=== PATIENT | female | born 1960 | race Caucasian/White ===

== ENCOUNTER 2020-07-03 20:40 | Emergency (ER) | payer MEDICARE, MEDICAID, SELFPAY ==
[2020-07-03 21:03] VITALS: BP 149/70; BP 172/67; PULSE 69; PULSE 80; RESP 19; TEMP 36.1; O2SAT 100; O2SAT 97; BMI 64.5
[2020-07-03 21:21] VITALS: BP 172/67; PULSE 69; RESP 17; TEMP 36.1; O2SAT 100
--- NOTE | 2020-07-03 23:21 | CT_ITS ---
EXAMINATION: CT ABDOMEN AND PELVIS WITHOUT CONTRAST CLINICAL INFORMATION: Right-sided pain. History of kidney stones. COMPARISON: CT scan abdomen pelvis 12/25/2019 TECHNIQUE: Multidetector volumetric imaging was performed from the superior aspect of the liver through the pubic symphysis. Sagittal and coronal reformatted images were obtained on the technologist's workstation. This CT examination was performed using dose optimization techniques as appropriate, variously including the following: *Automated exposure control *Adjustment of mA and/or kV according to patient size (this includes techniques or standardized protocols for targeted exams where dose is matched to indication/reason for exam; i.e. extremities or head) *Use of iterative reconstruction technique DLP: 1881 mGy-cm FINDINGS: LUNG BASES: Previously noted 1 cm nodular opacity at the left diaphragm on CAT scan of 12/25/2019 well seen today. There is breathing motion limiting study. There is no pleural effusion. LIVER, GALLBLADDER, AND BILIARY TREE: The liver is normal in size, shape, and attenuation. No focal hepatic lesion or biliary ductal dilatation is present. The gallbladder is unremarkable with no evidence of radiopaque gallstones, gallbladder wall thickening, or obvious pericholecystic inflammatory changes. PANCREAS: Unremarkable. SPLEEN: Unremarkable. ADRENAL GLANDS: Redemonstration of right adrenal adenoma. Left adrenal gland is normal. KIDNEYS AND URETERS: Right kidney: There is a 3 mm stone in the mid upper pole and a less than 1 mm size stone in the lower pole the right kidney. There is no ureteral calculus and no hydronephrosis. Left kidney: There is no renal or ureteral calculus. There is no hydronephrosis. A previously noted 2.3 cm cyst midpole left kidney is not well seen on this exam. BLADDER: Unremarkable. GASTROINTESTINAL TRACT: There are scattered diverticula of the colon. There is no diverticulitis. There is no bowel wall thickening /edema. There is no bowel obstruction. There is a moderate volume of stool in the colon. The appendix is normal . The small bowel loops are unremarkable. The stomach is normal. There is no hiatal hernia. ABDOMINAL WALL: Subcutaneous edema in the right anterior abdominal wall. No ventral wall hernia. LYMPH NODES: Normal. VASCULAR: Unremarkable. PELVIC VISCERA: Unremarkable. OSSEOUS STRUCTURES: Multilevel degenerative spondylosis of the spine. CT/CT abdomen pelvis wo con IMPRESSION: 3 mm nonobstructive stone mid pole and a 1 mm stone lower pole right kidney. No stone in left kidney. No ureteral stone or hydronephrosis.
--- NOTE | 2020-07-03 23:27 | ED.ABDPAIN ---
HPI - Abdominal Pain General Chief Complaint: Abdominal Pain <Edis Little MD - Last Filed: 07/04/20 00:46> Stated Complaint: VOMITING <Edis Little MD - Last Filed: 07/04/20 00:46> Time Seen by Provider: 07/03/20 23:12 <Edis Little MD - Last Filed: 07/04/20 00:46> Source: patient <Edis Little MD - Last Filed: 07/04/20 00:46> Mode of arrival: ambulatory <Edis Little MD - Last Filed: 07/04/20 00:46> Limitations: no limitations <Edis Little MD - Last Filed: 07/04/20 00:46> History of Present Illness HPI narrative: patient morbidly obese with history of kidney stone been complaining right-sided abdominal pain with nausea and vomiting for last 5 days with poor oral intake pain is more localized on the right side <Edis Little MD - Last Filed: 07/04/20 00:46> MD elicited complaint: abdominal pain <Edis Little MD - Last Filed: 07/04/20 00:46> Pertinent past history: none <Edis Little MD - Last Filed: 07/04/20 00:46> Onset (ago): day(s) ( 5) <Edis Little MD - Last Filed: 07/04/20 00:46> Pain Consistency: constant <Edis Little MD - Last Filed: 07/04/20 00:46> Location: RUQ <Edis Little MD - Last Filed: 07/04/20 00:46> Severity: mild <Edis Little MD - Last Filed: 07/04/20 00:46> Quality: dull <Edis Little MD - Last Filed: 07/04/20 00:46> Radiation: RUQ <Edis Little MD - Last Filed: 07/04/20 00:46> Migration to: no migration <Edis Little MD - Last Filed: 07/04/20 00:46> Exacerbating factors: eating <MD Mamta Clemons Last Filed: 07/04/20 00:46> Associated symptoms: nausea and vomiting <Edis Little MD - Last Filed: 07/04/20 00:46> Related Data Home Medications: Home Medications Medication Instructions Recorded Confirmed cushion #1 06/14/20 albuterol sulfate 90 mcg/actuation INHALATION 06/28/20 06/28/20 aerosol inhaler alcohol swabs 0 pad TOPICAL BID 06/28/20 06/28/20 blood sugar diagnostic #10 ea 06/28/20 06/28/20 bumetanide 1 mg tablet mg PO 06/28/20 06/28/20 dulaglutide 1.5 mg/0.5 mL mg SUBCUT 06/28/20 06/28/20 subcutaneous pen injector fluticasone propionate 50 INTRANASAL 06/28/20 06/28/20 mcg/actuation nasal spray,suspension insulin glargine 100 unit/mL unit SUBCUT 06/28/20 06/28/20 subcutaneous solution insulin regular hum U-500 conc 500 unit SUBCUT 06/28/20 06/28/20 unit/mL subcutaneous soln insulin regular human 100 unit/mL IM 06/28/20 06/28/20 injection solution insulin syringe-needle U-100 1 mL #10 ea 06/28/20 06/28/20 30 gauge x 1/2 lancets #100 ea 06/28/20 06/28/20 lancets 28 gauge #100 ea 06/28/20 06/28/20 levothyroxine 25 mcg tablet 25 mcg PO DAILY 06/28/20 06/28/20 losartan 100 mg tablet 100 mg PO DAILY 06/28/20 06/28/20 losartan 25 mg tablet 25 mg PO DAILY 06/28/20 06/28/20 omeprazole 40 mg capsule,delayed 40 mg PO DAILY 06/28/20 06/28/20 release ropinirole 0.5 mg tablet 0.5 mg PO BEDTIME 06/28/20 06/28/20 simvastatin 20 mg tablet 20 mg PO BEDTIME 06/28/20 06/28/20 torsemide 100 mg tablet mg PO 06/28/20 06/28/20 tramadol 50 mg tablet 50 mg PO DAILY 06/28/20 06/28/20 Previous Rx's Medication Instructions Recorded amlodipine 5 mg tablet 5 mg PO DAILY #90 tab 06/10/20 dicyclomine 20 mg PO TID PRN #20 tab 07/04/20 ondansetron 4 mg PO Q6H PRN #10 tab 07/04/20 <Edis Little MD - Last Filed: 07/04/20 00:46> Allergies/Adverse Reactions: Allergies Allergy/AdvReac Type Severity Reaction Status Date / Time metformin [METFORMIN] Allergy Severe HIVES Verified 06/28/20 13:46 <Edis Little MD - Last Filed: 07/04/20 00:46> Review of Systems Review of Systems REVIEW OF SYSTEMS: Pertinent positives and negatives are stated above in the history. GEN: subjective fever+, chills +, fatigue HEENT: no nasal congestion, sore throat, ear pain NEURO: no headache, dizziness, focal weakness PULM: no cough, shortness of breath CV: no chest pain, palpitations, LE edema ABD: no diarrhea : no dysuria, urgency, frequency SKIN: no rash ROS otherwise negative x 10 <Edis Little MD - Last Filed: 07/04/20 00:46> Physical Exam Vital Signs: Vital Signs: Vital Signs Temp Pulse Resp BP Pulse Ox 07/03/20 21:21 97 F 69 17 172/67 H 100 07/03/20 21:03 97 F 69 19 172/67 H 97 Body Mass Index 64.5 <Edis Little MD - Last Filed: 07/04/20 00:46> Vital Signs: Vital Signs Temp Pulse Resp BP Pulse Ox 07/03/20 21:21 97 F 69 17 172/67 H 100 07/03/20 21:03 97 F 69 19 172/67 H 97 Body Mass Index 64.5 <Kinsey Gillette MD - Last Filed: 07/04/20 02:52> VITAL SIGNS: Reviewed. GENERAL: Well developed, morbidly obese, in no acute distress. HEAD: Normocephalic/atraumatic, EYES: PERRLA No pallor/icterus noted OROPHRYNX: Oral mucosa moist no oral lesions NECK: Supple, no adenopathy LUNGS: Normal breath sounds. No adventitious sounds or accessory muscle use CARDIOVASCULAR: Regular rate and rhythm without noted murmurs, ABDOMEN: Soft, mild-tender in right upper quadrant, non-distended normalh bowel sounds. No rigidity. No guarding. No palpable masses or hernias noted MUSCULOSKELETAL: No tenderness, deformities, EXTREMITIES: No cyanosis or edema. chronic lymphedema present SKIN: no rashes, ulcerations, jaundice, pallor, or petechiae NEUROLOGIC: Alert and oriented x 3. Strength and sensation to light touch were grossly intact <Edis Little MD - Last Filed: 07/04/20 00:46> Course Course Course Narrative: patient with acute gastroenteritis with volume loss and elevated creatinine CTA scan of the abdomen is negative for any acute pathology. Patient received IV fluids and Zofran feeling much better now taking p.o. fluids advised to follow with primary care doctor <Edis Little MD - Last Filed: 07/04/20 00:46> Reevaluation(s) Reevaluation #1: Review of all investigations reviewed and patient appears to have baby combination of gastroenteritis as well as nonobstructing kidney stones that is likely the cause of hematuria noted on urinalysis. The urinalysis does not show any evidence infection. <Kinsey Gillette MD - Last Filed: 07/04/20 02:52> Time: 02:51 <Kinsey Gillette MD - Last Filed: 07/04/20 02:52> MDM - Abdominal Pain Differential Diagnosis Differential diagnosis: Likely calculus of kidney and pancreatitis <Edis Little MD - Last Filed: 07/04/20 00:46> Differential diagnosis narrative:: gallstones <Edis Little MD - Last Filed: 07/04/20 00:46> Medical Records Attestation: I reviewed the patient's medical records. <Edis Little MD - Last Filed: 07/04/20 00:46> Lab Data Attestation: I reviewed the patient's lab results. <Edis Little MD - Last Filed: 07/04/20 00:46> Result diagrams: : 07/04/20 00:12 07/04/20 00:12 <Edis Little MD - Last Filed: 07/04/20 00:46> Labs: Lab Results 07/04/20 07/04/20 07/04/20 Range/Units 00:12 00:12 00:12 WBC 13.5 H (4.8-10.8) X10*3/uL RBC 3.97 L (4.20-5.50) X10*6/uL Hgb 11.9 L (12.0-16.0) g/dl Hct 35.7 L (37-47) % MCV 89.9 (80-98) fL MCH 30.0 (27.0-33.0) pg MCHC 33.3 (31.0-35.0) g/dl RDW 13.6 (11.0-16.0) % Plt Count 331 (160-400) X10*3/uL MPV 9.9 (9.4-12.3) fL Immature Gran % (Auto) 0.4 (0.0-0.4) % Neut % (Auto) 65.6 (45-73) % Lymph % (Auto) 23.6 (20-40) % [place] % (Auto) 7.3 (2-11) % Eos % (Auto) 2.6 (0-4) % Baso % (Auto) 0.5 (0-2) % Lymph # (Auto) 3.2 (1.2-4.9) X10*3/uL [place] # (Auto) 1.0 (0.1-1.2) X10*3/uL Eos # (Auto) 0.4 (0.0-0.4) X10*3/uL Baso # (Auto) 0.1 (0.0-0.2) X10*3/uL Abs Immat Gran (auto) 0.05 H (0.00-0.03) X10*3/uL Absolute Neuts (auto) 8.9 H (2.0-8.3) X10*3/uL Absolute Nucleated RBC 0.000 (0.0-0.012) X10*3/uL Nucleated RBC % (auto) 0.0 (0.0-0.2) /100WBC Hold Blue Top SEE NOTE Sodium 139 (135-145) mmol/L Potassium 3.4 (3.3-5.1) mmol/l Chloride 107 (96-108) mmol/L Carbon Dioxide 25 (22-29) mmol/L Anion Gap 10 L (12-20) BUN 30 H (9-16) mg/dL Creatinine 2.04 H (0.5-1.4) mg/dL Estim Creat Clear Calc 48.8 Estimated GFR 25 Random Glucose 274 H (60-115) mg/dL Lactic Acid (0.5-2.0) mmol/L Calcium 7.5 L (8.4-10.2) mg/dL Total Bilirubin 0.6 (0.0-1.0) mg/dL AST 16 (5-31) U/L ALT 13 (0-31) U/L Alkaline Phosphatase 129 H (39-117) U/L Total Protein 4.7 L (6.5-8.0) g/dL Albumin 2.1 L (3.5-5.0) g/dL Lipase 19 (8-78) U/L Urine Color Urine Appearance Urine pH (5.0-8.0) Ur Specific [place] (1.005-1.025) Urine Protein (NEG-TRACE) MG/DL Urine Glucose (UA) (NEG) MG/DL Urine Ketones (NEG) MG/DL Urine Blood (NEG) Urine Nitrite (NEG) Ur Leukocyte Esterase (NEG) Urine RBC (0) /HPF Urine WBC (0-4) /HPF Ur Squamous Epith Cells /LPF Urine Bacteria /LPF Hyaline Casts /LPF Granular Casts /LPF 07/04/20 07/04/20 Range/Units 00:12 01:01 WBC (4.8-10.8) X10*3/uL RBC (4.20-5.50) X10*6/uL Hgb (12.0-16.0) g/dl Hct (37-47) % MCV (80-98) fL MCH (27.0-33.0) pg MCHC (31.0-35.0) g/dl RDW (11.0-16.0) % Plt Count (160-400) X10*3/uL MPV (9.4-12.3) fL Immature Gran % (Auto) (0.0-0.4) % Neut % (Auto) (45-73) % Lymph % (Auto) (20-40) % [place] % (Auto) (2-11) % Eos % (Auto) (0-4) % Baso % (Auto) (0-2) % Lymph # (Auto) (1.2-4.9) X10*3/uL [place] # (Auto) (0.1-1.2) X10*3/uL Eos # (Auto) (0.0-0.4) X10*3/uL Baso # (Auto) (0.0-0.2) X10*3/uL Abs Immat Gran (auto) (0.00-0.03) X10*3/uL Absolute Neuts (auto) (2.0-8.3) X10*3/uL Absolute Nucleated RBC (0.0-0.012) X10*3/uL Nucleated RBC % (auto) (0.0-0.2) /100WBC Hold Blue Top Sodium (135-145) mmol/L Potassium (3.3-5.1) mmol/l Chloride (96-108) mmol/L Carbon Dioxide (22-29) mmol/L Anion Gap (12-20) BUN (9-16) mg/dL Creatinine (0.5-1.4) mg/dL Estim Creat Clear Calc Estimated GFR Random Glucose (60-115) mg/dL Lactic Acid 0.7 (0.5-2.0) mmol/L Calcium (8.4-10.2) mg/dL Total Bilirubin (0.0-1.0) mg/dL AST (5-31) U/L ALT (0-31) U/L Alkaline Phosphatase (39-117) U/L Total Protein (6.5-8.0) g/dL Albumin (3.5-5.0) g/dL Lipase (8-78) U/L Urine Color YELLOW Urine Appearance HAZY Urine pH 6.5 (5.0-8.0) Ur Specific [place] 1.020 (1.005-1.025) Urine Protein 3+ H (NEG-TRACE) MG/DL Urine Glucose (UA) >=1000 H (NEG) MG/DL Urine Ketones NEG (NEG) MG/DL Urine Blood 2+ H (NEG) Urine Nitrite NEG (NEG) Ur Leukocyte Esterase NEG (NEG) Urine RBC 15-29 H (0) /HPF Urine WBC 15-29 H (0-4) /HPF Ur Squamous Epith Cells 1+ /LPF Urine Bacteria 2+ /LPF Hyaline Casts 1-4 /LPF Granular Casts 1-4 /LPF <Edis Little MD - Last Filed: 07/04/20 00:46> Lab Results 07/04/20 07/04/20 07/04/20 Range/Units 00:12 00:12 00:12 WBC 13.5 H (4.8-10.8) X10*3/uL RBC 3.97 L (4.20-5.50) X10*6/uL Hgb 11.9 L (12.0-16.0) g/dl Hct 35.7 L (37-47) % MCV 89.9 (80-98) fL MCH 30.0 (27.0-33.0) pg MCHC 33.3 (31.0-35.0) g/dl RDW 13.6 (11.0-16.0) % Plt Count 331 (160-400) X10*3/uL MPV 9.9 (9.4-12.3) fL Immature Gran % (Auto) 0.4 (0.0-0.4) % Neut % (Auto) 65.6 (45-73) % Lymph % (Auto) 23.6 (20-40) % [place] % (Auto) 7.3 (2-11) % Eos % (Auto) 2.6 (0-4) % Baso % (Auto) 0.5 (0-2) % Lymph # (Auto) 3.2 (1.2-4.9) X10*3/uL [place] # (Auto) 1.0 (0.1-1.2) X10*3/uL Eos # (Auto) 0.4 (0.0-0.4) X10*3/uL Baso # (Auto) 0.1 (0.0-0.2) X10*3/uL Abs Immat Gran (auto) 0.05 H (0.00-0.03) X10*3/uL Absolute Neuts (auto) 8.9 H (2.0-8.3) X10*3/uL Absolute Nucleated RBC 0.000 (0.0-0.012) X10*3/uL Nucleated RBC % (auto) 0.0 (0.0-0.2) /100WBC Hold Blue Top SEE NOTE Sodium 139 (135-145) mmol/L Potassium 3.4 (3.3-5.1) mmol/l Chloride 107 (96-108) mmol/L Carbon Dioxide 25 (22-29) mmol/L Anion Gap 10 L (12-20) BUN 30 H (9-16) mg/dL Creatinine 2.04 H (0.5-1.4) mg/dL Estim Creat Clear Calc 48.8 Estimated GFR 25 Random Glucose 274 H (60-115) mg/dL Lactic Acid (0.5-2.0) mmol/L Calcium 7.5 L (8.4-10.2) mg/dL Total Bilirubin 0.6 (0.0-1.0) mg/dL AST 16 (5-31) U/L ALT 13 (0-31) U/L Alkaline Phosphatase 129 H (39-117) U/L Total Protein 4.7 L (6.5-8.0) g/dL Albumin 2.1 L (3.5-5.0) g/dL Lipase 19 (8-78) U/L Urine Color Urine Appearance Urine pH (5.0-8.0) Ur Specific [place] (1.005-1.025) Urine Protein (NEG-TRACE) MG/DL Urine Glucose (UA) (NEG) MG/DL Urine Ketones (NEG) MG/DL Urine Blood (NEG) Urine Nitrite (NEG) Ur Leukocyte Esterase (NEG) Urine RBC (0) /HPF Urine WBC (0-4) /HPF Ur Squamous Epith Cells /LPF Urine Bacteria /LPF Hyaline Casts /LPF Granular Casts /LPF 07/04/20 07/04/20 Range/Units 00:12 01:01 WBC (4.8-10.8) X10*3/uL RBC (4.20-5.50) X10*6/uL Hgb (12.0-16.0) g/dl Hct (37-47) % MCV (80-98) fL MCH (27.0-33.0) pg MCHC (31.0-35.0) g/dl RDW (11.0-16.0) % Plt Count (160-400) X10*3/uL MPV (9.4-12.3) fL Immature Gran % (Auto) (0.0-0.4) % Neut % (Auto) (45-73) % Lymph % (Auto) (20-40) % [place] % (Auto) (2-11) % Eos % (Auto) (0-4) % Baso % (Auto) (0-2) % Lymph # (Auto) (1.2-4.9) X10*3/uL [place] # (Auto) (0.1-1.2) X10*3/uL Eos # (Auto) (0.0-0.4) X10*3/uL Baso # (Auto) (0.0-0.2) X10*3/uL Abs Immat Gran (auto) (0.00-0.03) X10*3/uL Absolute Neuts (auto) (2.0-8.3) X10*3/uL Absolute Nucleated RBC (0.0-0.012) X10*3/uL Nucleated RBC % (auto) (0.0-0.2) /100WBC Hold Blue Top Sodium (135-145) mmol/L Potassium (3.3-5.1) mmol/l Chloride (96-108) mmol/L Carbon Dioxide (22-29) mmol/L Anion Gap (12-20) BUN (9-16) mg/dL Creatinine (0.5-1.4) mg/dL Estim Creat Clear Calc Estimated GFR Random Glucose (60-115) mg/dL Lactic Acid 0.7 (0.5-2.0) mmol/L Calcium (8.4-10.2) mg/dL Total Bilirubin (0.0-1.0) mg/dL AST (5-31) U/L ALT (0-31) U/L Alkaline Phosphatase (39-117) U/L Total Protein (6.5-8.0) g/dL Albumin (3.5-5.0) g/dL Lipase (8-78) U/L Urine Color YELLOW Urine Appearance HAZY Urine pH 6.5 (5.0-8.0) Ur Specific [place] 1.020 (1.005-1.025) Urine Protein 3+ H (NEG-TRACE) MG/DL Urine Glucose (UA) >=1000 H (NEG) MG/DL Urine Ketones NEG (NEG) MG/DL Urine Blood 2+ H (NEG) Urine Nitrite NEG (NEG) Ur Leukocyte Esterase NEG (NEG) Urine RBC 15-29 H (0) /HPF Urine WBC 15-29 H (0-4) /HPF Ur Squamous Epith Cells 1+ /LPF Urine Bacteria 2+ /LPF Hyaline Casts 1-4 /LPF Granular Casts 1-4 /LPF <Kinsey Gillette MD - Last Filed: 07/04/20 02:52> Imaging Data CT scan - abdomen: Radiologist's impression: CT/CT abdomen pelvis wo con IMPRESSION: 3 mm nonobstructive stone mid pole and a 1 mm stone lower pole right kidney. No stone in left kidney. No ureteral stone or hydronephrosis. <Edis Little MD - Last Filed: 07/04/20 00:46> Discharge Plan Discharge Clinical Impression: Gastroenteritis, Acute renal insufficiency <Edis Little MD - Last Filed: 07/04/20 00:46> Patient Disposition: Home, Self-Care <Edis Little MD - Last Filed: 07/04/20 00:46> Instructions: Acute Nausea and Vomiting (ED) <Edis Little MD - Last Filed: 07/04/20 00:46> Additional Instructions: drink plenty of fluids and take the medication for nausea and follow-up with primary care doctor if not better. Follow-up with the prime PCP next week to check your kidney function <Edis Little MD - Last Filed: 07/04/20 00:46> Prescriptions: New ondansetron 4 mg tablet,disintegrating 4 mg PO Q6H PRN (Reason: nausea and vomiting) Qty: 10 RF: 0 dicyclomine 20 mg tablet 20 mg PO TID PRN (Reason: abd pain) Qty: 20 RF: 0 No Action amlodipine 5 mg tablet 5 mg PO DAILY Qty: 90 RF: 8 (DME) cushion Misc See Rx Instructions .ROUTE .MEDSUPPLY Qty: 1 RF: 0 torsemide 100 mg tablet PO RF: 0 losartan 100 mg tablet 100 mg PO DAILY RF: 0 (DME) Accu-Chek Berna Plus test strp Strip See Rx Instructions strip Not Applicable .MEDSUPPLY Qty: 10 RF: 0 losartan 25 mg tablet 25 mg PO DAILY RF: 0 Humulin R U-500 (Conc) Insulin 500 unit/mL solution subcut RF: 0 ropinirole 0.5 mg tablet 0.5 mg PO BEDTIME RF: 0 alcohol swabs Pads, Medicated 0 pad topical BID RF: 0 (DME) lancets 28 gauge misc See Rx Instructions gauge topical .MEDSUPPLY Qty: 100 RF: 0 albuterol sulfate 90 mcg/actuation HFA aerosol inhaler inhalation RF: 0 bumetanide 1 mg tablet PO RF: 0 simvastatin 20 mg tablet 20 mg PO BEDTIME RF: 0 levothyroxine 25 mcg tablet 25 mcg PO DAILY RF: 0 (DME) insulin syringe-needle U-100 1 mL 30 gauge x 1/2 syringe See Rx Instructions ml .ROUTE .MEDSUPPLY Qty: 10 RF: 0 Lantus U-100 Insulin 100 unit/mL solution subcut RF: 0 omeprazole 40 mg capsule,delayed release(DR/EC) 40 mg PO DAILY RF: 0 tramadol 50 mg tablet 50 mg PO DAILY RF: 0 (DME) lancets Misc See Rx Instructions ea topical .MEDSUPPLY Qty: 100 RF: 0 Humulin R Regular U-100 Insuln 100 unit/mL solution IM RF: 0 Trulicity 1.5 mg/0.5 mL pen injector subcut RF: 0 fluticasone propionate 50 mcg/actuation spray,suspension intranasal RF: 0 <Edis Little MD - Last Filed: 07/04/20 00:46> Referrals: Tony Dejesus MD [Physician] - 2 days ( Needs follow-up eval for worsening renal function on evaluation here in the emergency department 07/04) Terry Ochoa MD [Primary Care Provider] - 2 days ( Further evaluation regarding noted RASHEEDA.) <Edis Little MD - Last Filed: 07/04/20 00:46> [facility] Past Medical History Medical History: Medical History Diabetes mellitus <Edis Little MD - Last Filed: 07/04/20 00:46> Surgical History: Surgical History History of tubal ligation <Edis Little MD - Last Filed: 07/04/20 00:46> Family History Family History: Family History Father Diabetes Mother Diabetes Hypertension Breast cancer Family/Other Breast cancer Uterine cancer <Edis Little MD - Last Filed: 07/04/20 00:46> Social History Social History: Social History Alcohol intake: never Smoked in Last 30 Days: No Use of substances other than those prescribed or required for medical reasons: No Advance Directives: No Advance Directives Information Provided: Yes <Edis Little MD - Last Filed: 07/04/20 00:46>
--- NOTE | 2020-07-03 23:35 | PC.NURSE ---
REPORT TAKEN FROM GARCIA RN, FIRST CONTACT WITH PT. MOVED TO [facility] FOR TREATMENT. REPORTS RIGHT SIDED ABD PAIN, NAUSEA, CHILLS, AND METALLIC TASTE IN MOUTHx5 DAYS. DENIES FEVER. AWAITING TESTING. AWARE OF PLAN OF CARE.
[2020-07-03] MEDS: 0.9 % Sodium Chloride 1,000 ML 999 ML IVCONT (23:56)
[2020-07-04] MEDS: ondansetron HCL 4 MG/2 ML VIAL IVPUSH
--- NOTE | 2020-07-04 00:19 | PC.NURSE ---
PT MEDICATED PER MAR, IVF HUNG AND INFUSING WITHOUT DIFFICULTY. AWAITING FURTHER TESTING. AWARE OF PLAN OF CARE.
[2020-07-04 00:21] LABS: MANUAL DIFF FLAG NO
[2020-07-04 00:22] LABS: Basophils Absolute Auto 0.1 X10*3/uL (0.0-0.2); Basophils Percent Auto 0.5 % (0-2); Eosinophils Absolute Auto 0.4 X10*3/uL (0.0-0.4); Eosinophils Percent Auto 2.6 % (0-4); Hematocrit 35.7 % (37-47); Hemoglobin 11.9 g/dl (12.0-16.0); Imm Gran Abs Auto 0.05 X10*3/uL (0.00-0.03); Imm Gran Pct Auto 0.4 % (0.0-0.4); Lymphocytes Absolute Auto 3.2 X10*3/uL (1.2-4.9); Lymphocytes Percent Auto 23.6 % (20-40); Mean Corpuscular HGB Conc 33.3 g/dl (31.0-35.0); Mean Corpuscular Volume 89.9 fL (80-98); Mean Platelet Volume 9.9 fL (9.4-12.3); Monocytes Percent Auto 7.3 % (2-11); Neutrophils Absolute Auto 8.9 X10*3/uL (2.0-8.3); Neutrophils Percent Auto 65.6 % (45-73); Platelet Count 331 X10*3/uL (160-400); Red Blood Count 3.97 X10*6/uL (4.20-5.50); Red Cell Distribution Width 13.6 % (11.0-16.0); White Blood Count 13.5 X10*3/uL (4.8-10.8)
[2020-07-04 00:38] LABS: Lactic Acid 0.7 mmol/L (0.5-2.0)
[2020-07-04 00:44] LABS: Alanine Aminotransferase 13 U/L (0-31); Albumin Level 2.1 g/dL (3.5-5.0); Alkaline Phosphatase 129 U/L (39-117); Anion Gap 10 (12-20); Aspartate Amino Transferase 16 U/L (5-31); Bilirubin Total 0.6 mg/dL (0.0-1.0); Blood Urea Nitrogen 30 mg/dL (9-16); Calcium 7.5 mg/dL (8.4-10.2); Carbon Dioxide 25 mmol/L (22-29); Chloride 107 mmol/L (96-108); Creatinine Clr Calc Pharmacy 48.8; Estimated Glomerular Filt Rate 25; Glucose Random 274 mg/dL (60-115); Lipase 19 U/L (8-78); Potassium 3.4 mmol/l (3.3-5.1); Sodium 139 mmol/L (135-145); Total Protein 4.7 g/dL (6.5-8.0)
[2020-07-04] MEDS: Ketorolac Tromethamine 30 MG/ML VIAL IVPUSH (00:58)
[2020-07-04 01:07] LABS: Glucose Urine UA >=1000 MG/DL (NEG); Leukocyte Esterase Urine NEG (NEG); Nitrite Urine NEG (NEG); PH 6.5 (5.0-8.0); Urine Blood 2+ (NEG); Urine Ketones NEG (NEG); Urine Protein 3+ MG/DL (NEG-TRACE)
[2020-07-04 01:08] LABS: Appearance Urine HAZY; Color Urine YELLOW
[2020-07-04 01:19] LABS: Bacteria Urine 2+ /LPF; Squamous Epithelial Cell Urine 1+ /LPF; UACC CULT YES
[2020-07-04 02:00] VITALS: BP 110/50; PULSE 66; RESP 18; O2SAT 99
--- NOTE | 2020-07-04 02:55 | PC.NURSE ---
NEGATIVE WORK UP PT AWAITING AMBULANCE TRANSPORT FOR DC HOME. FEELING BETTER, IN AGREEANCE WITH PLAN OF CARE.
== END 2020-07-04 03:35 | disposition home or self-care (01) ==
PROVIDERS: Emergency Provider Internal Medicine; PCP Internal Medicine
DX: K52.9 Noninfective gastroenteritis and colitis, unspecified (principal); N28.9 Disorder of kidney and ureter, unspecified; R10.9 Unspecified abdominal pain; R11.2 Nausea with vomiting, unspecified; Z79.899 Other long term (current) drug therapy
CPT/HCPCS: 36415; 74176; 80053; 81001; 83605; 83690; 85025; 87086; 96361; 96374; 96375; 99284; J1885; J2405

== ENCOUNTER 2020-07-30 23:44 | Inpatient (IN) | payer MEDICARE, MEDICAID, SELFPAY ==
[2020-07-30 23:58] VITALS: BP 162/96; BP 164/76; PULSE 76; PULSE 86; RESP 20; O2SAT 96; O2SAT 97; BMI 69.2
[2020-07-31] VITALS (12 sets, daily range): BP systolic 112–169; BP diastolic 54–81; PULSE 64–106; RESP 11–20; TEMP 36.4–37.3; O2SAT 96–100
--- NOTE | 2020-07-31 00:35 | ED.GENADULT ---
HPI - General Adult General Chief complaint: Upper Respiratory Symptoms Stated complaint: sob Time Seen by Provider: 07/31/20 00:05 History of Present Illness HPI narrative: 60-year-old female who presents emergency department for evaluation nausea, vomiting, inability eat x2 weeks. Patient is also complaining shortness of breath. The patient was hospitalized here recently for gastritis. The patient states that she was discharged home with Zofran. She states despite taking the Zofran she is continuing to have nausea and vomiting and is not able to eat. She states that every time she eats or drinks she vomits. She also states that she has a very bad taste in her mouth and she believes that she has a tooth infection. She states that this that test is also making her nauseous and making her vomit. She is complaining abdominal pain. She points to her midepigastric and right side of her abdomen when asked to localize the pain. She states that it is a burning sensation that is worse with vomiting. States the pain is 5/10 at its worst. She states that she always feels short of breath but her shortness of breath has gotten worse over the last 24 hours. The patient states that she was COVID-19 positive in December of 2019. Patient's point of care glucose EN route to the hospital was greater than 500. Related Data Home Medications Medication Instructions Recorded Confirmed cushion #1 06/14/20 07/12/20 albuterol sulfate 90 mcg/actuation INHALATION 06/28/20 07/12/20 aerosol inhaler alcohol swabs 0 pad TOPICAL BID 06/28/20 07/12/20 blood sugar diagnostic #10 ea 06/28/20 07/12/20 bumetanide 1 mg tablet mg PO 06/28/20 07/12/20 dulaglutide 1.5 mg/0.5 mL mg SUBCUT 06/28/20 07/12/20 subcutaneous pen injector fluticasone propionate 50 INTRANASAL 06/28/20 07/12/20 mcg/actuation nasal spray,suspension insulin glargine 100 unit/mL unit SUBCUT 06/28/20 07/12/20 subcutaneous solution insulin regular hum U-500 conc 500 unit SUBCUT 06/28/20 07/12/20 unit/mL subcutaneous soln insulin regular human 100 unit/mL IM 06/28/20 07/12/20 injection solution insulin syringe-needle U-100 1 mL #10 ea 06/28/20 07/12/20 30 gauge x 1/2 lancets #100 ea 06/28/20 07/12/20 lancets 28 gauge #100 ea 06/28/20 07/12/20 levothyroxine 25 mcg tablet 25 mcg PO DAILY 06/28/20 07/12/20 losartan 100 mg tablet 100 mg PO DAILY 06/28/20 07/12/20 losartan 25 mg tablet 25 mg PO DAILY 06/28/20 07/12/20 omeprazole 40 mg capsule,delayed 40 mg PO DAILY 06/28/20 07/12/20 release ropinirole 0.5 mg tablet 0.5 mg PO BEDTIME 06/28/20 07/12/20 simvastatin 20 mg tablet 20 mg PO BEDTIME 06/28/20 07/12/20 torsemide 100 mg tablet mg PO 06/28/20 07/12/20 tramadol 50 mg tablet 50 mg PO DAILY 06/28/20 07/12/20 calcifediol 30 mcg capsule,24 30 mcg PO DAILY 07/12/20 07/12/20 hr,extended release Previous Rx's Medication Instructions Recorded amlodipine 5 mg tablet 5 mg PO DAILY #90 tab 06/10/20 dicyclomine 20 mg PO TID PRN #20 tab 07/04/20 ondansetron 4 mg PO Q6H PRN #10 tab 07/04/20 Allergies Allergy/AdvReac Type Severity Reaction Status Date / Time metformin [METFORMIN] Allergy Severe HIVES Verified 07/31/20 00:09 Review of Systems Review of Systems: Yes all other systems are reviewed and are negative Constitutional: Constitutional: Reports as per HPI Eyes: Eyes: Reports as per HPI ENT: Reports as per HPI Cardiovascular: Cardiovascular: Reports as per HPI Respiratory: Respiratory: Reports as per HPI Gastrointestinal: Gastrointestinal: Reports as per HPI Genitourinary: Genitourinary: Reports as per HPI Musculoskeletal: Musculoskeletal: Reports as per HPI Integumentary/Breasts: Skin/Breast: Reports as per HPI Neurologic: Reports as per HPI and Reports Abnormal speech present Psychiatric: Psychiatric: Reports as per HPI Allergic/Immunologic: Allergic/Immunologic: Reports as per HPI [facility] Past Medical History Medical History Diabetes mellitus Surgical History History of tubal ligation Family History Family History Father Diabetes Mother Diabetes Hypertension Breast cancer Family/Other Breast cancer Uterine cancer Social History Social History Alcohol intake: never Advance Directives: No Advance Directives Information Provided: No Physical Exam Vital Signs: Vital Signs: Last Vital Signs Pulse 76 07/30/20 23:58 Resp 20 07/30/20 23:58 BP 164/76 H 07/30/20 23:58 Pulse Ox 96 07/30/20 23:58 Body Mass Index 69.2 Const: General: cooperative, no acute distress, alert and awake Nutritional Appearance: obese Orientation/consciousness: oriented to person and oriented to place Limitations: no limitations HENMT: Head: Yes normal to inspection, Yes normocephalic and Yes atraumatic Ears: hearing grossly normal bilaterally and external ears normal General nose exam: Normal external nose present Face and sinus: Yes normal facial exam and Yes sinuses nontender Mouth: lip normal, tongue normal and oropharynx normal Teeth and gingiva: poor dentition Teeth image: 1. Dental caries 2. Dental caries Eyes: General: appearance normal, both eyes and all related structures Periorbital: periorbital findings normal Eyelids: Yes eyelids normal Conjunctivae: conjunctivae normal Sclerae: sclerae normal Corneas: corneas normal Pupils: Equal, round and reactive pupils present Direct Ophthalmoscopy: normal light reflex Neck: Neck: Yes normal visual inspection and Yes supple Lymphatic: no lymphadenopathy noted Chest: Chest palpation & inspection: normal inspection of the chest and normal palpation of entire chest wall Resp: Effort & Inspection: normal respiratory effort, abnormal respiratory pattern, no audible wheezes and no respiratory distress Auscultation: clear to auscultation bilaterally, no crackles, no rales, no rhonchi and no wheezes Cardio: Rate: regular rate Rhythm: regular rhythm Heart sounds: S1 normal heart sound present, S2 normal heart sound present and no murmurs GI: Inspection: No distended Palpation (GI): Soft to palpation, Tenderness to palpation present (GI) in the epigastrum, in the RLQ and in the RUQ, no guarding and No hepatosplenomegaly present Auscultation: normal bowel sounds : General: Yes no CVA tenderness Back/Spine/Pelvis: Back: no CVA tenderness Skin: General skin exam: no rashes or lesions noted Lesions: no lesions Rashes: no rashes Wounds: no wounds Neuro: General: oriented to person and oriented to place Cranial nerves: Yes CN's II-XII intact bilaterally and Yes Equal, round and reactive pupils present Cognition (Neuro): normal cognition Speech: Abnormal speech present Motor exam (neuro): 5/5 motor strength present throughout Extrem: General: Yes normal to inspection, Yes full ROM, Yes no pedal edema and Yes no calf tenderness Psych: Appearance: grossly normal Mental Status: mental status grossly normal Speech and movement: Clear speech present Affect: normal affect Thought process: Normal thought process present Course Course Course Narrative: 60-year-old female with a history of morbid obesity , gastritis with recent admission, diabetes mellitus who presents to the emergency 2 weeks of nausea and vomiting, worse in the last 24 hours with mid epigastric and right-sided abdominal pain. Patient also believes that she may have a dental infection and she is also complaining of shortness of breath. Physical examination revealed that the patient was afebrile with an O2 saturation 96% on room air. Patient is not tachycardic. She did have midepigastric and right-sided abdominal tenderness. My suspicion is that she has recurrence of her gastritis and may also have gastroparesis. I did order an abdominal pain workup on the patient, I do not think that she needs CT scan at this time. The patient does have significant dental caries in the left upper aspect of her mouth and she may have a dental infection. Patient's point of care glucose was greater than 500 so she was ordered to get normal saline IV x1 L and regular insulin 10 units IV. Discharge Plan Discharge Prescriptions: No Action amlodipine 5 mg tablet 5 mg PO DAILY Qty: 90 RF: 8 (DME) cushion Misc See Rx Instructions .ROUTE .MEDSUPPLY Qty: 1 RF: 0 ondansetron 4 mg tablet,disintegrating 4 mg PO Q6H PRN (Reason: nausea and vomiting) Qty: 10 RF: 0 dicyclomine 20 mg tablet 20 mg PO TID PRN (Reason: abd pain) Qty: 20 RF: 0 torsemide 100 mg tablet PO RF: 0 losartan 100 mg tablet 100 mg PO DAILY RF: 0 (DME) Accu-Chek Berna Plus test strp Strip See Rx Instructions strip Not Applicable .MEDSUPPLY Qty: 10 RF: 0 losartan 25 mg tablet 25 mg PO DAILY RF: 0 Humulin R U-500 (Conc) Insulin 500 unit/mL solution subcut RF: 0 ropinirole 0.5 mg tablet 0.5 mg PO BEDTIME RF: 0 alcohol swabs Pads, Medicated 0 pad topical BID RF: 0 (DME) lancets 28 gauge misc See Rx Instructions gauge topical .MEDSUPPLY Qty: 100 RF: 0 albuterol sulfate 90 mcg/actuation HFA aerosol inhaler inhalation RF: 0 bumetanide 1 mg tablet PO RF: 0 simvastatin 20 mg tablet 20 mg PO BEDTIME RF: 0 levothyroxine 25 mcg tablet 25 mcg PO DAILY RF: 0 (DME) insulin syringe-needle U-100 1 mL 30 gauge x 1/2 syringe See Rx Instructions ml .ROUTE .MEDSUPPLY Qty: 10 RF: 0 Lantus U-100 Insulin 100 unit/mL solution subcut RF: 0 omeprazole 40 mg capsule,delayed release(DR/EC) 40 mg PO DAILY RF: 0 tramadol 50 mg tablet 50 mg PO DAILY RF: 0 (DME) lancets Misc See Rx Instructions ea topical .MEDSUPPLY Qty: 100 RF: 0 Humulin R Regular U-100 Insuln 100 unit/mL solution IM RF: 0 Trulicity 1.5 mg/0.5 mL pen injector subcut RF: 0 fluticasone propionate 50 mcg/actuation spray,suspension intranasal RF: 0 Rayaldee 30 mcg capsule,extended release 24 hr 30 mcg PO DAILY RF: 0
[2020-07-31 01:28] LABS: MANUAL DIFF FLAG NO
[2020-07-31 01:31] LABS: Basophils Absolute Auto 0.1 X10*3/uL (0.0-0.2); Basophils Percent Auto 0.5 % (0-2); Eosinophils Absolute Auto 0.2 X10*3/uL (0.0-0.4); Eosinophils Percent Auto 2.3 % (0-4); Hematocrit 34.4 % (37-47); Hemoglobin 11.3 g/dl (12.0-16.0); Imm Gran Abs Auto 0.04 X10*3/uL (0.00-0.03); Imm Gran Pct Auto 0.4 % (0.0-0.4); Lymphocytes Absolute Auto 2.6 X10*3/uL (1.2-4.9); Lymphocytes Percent Auto 24.6 % (20-40); Mean Corpuscular HGB Conc 32.8 g/dl (31.0-35.0); Mean Corpuscular Hemoglobin 30.1 pg (27.0-33.0); Mean Corpuscular Volume 91.5 fL (80-98); Monocytes Absolute Auto 0.9 X10*3/uL (0.1-1.2); Monocytes Percent Auto 8.2 % (2-11); Neutrophils Absolute Auto 6.8 X10*3/uL (2.0-8.3); Platelet Count 293 X10*3/uL (160-400); Red Blood Count 3.76 X10*6/uL (4.20-5.50); White Blood Count 10.6 X10*3/uL (4.8-10.8)
[2020-07-31] MEDS: Metoclopramide HCl 10 MG/2 ML VIAL IVPUSH (01:58)
[2020-07-31] MEDS: Insulin Regular, Human 100 UNIT/ML 3 ML VIAL 10 UNIT IVPUSH (01:59)
[2020-07-31] MEDS: 0.9 % Sodium Chloride 1,000 ML 999 ML IVCONT (01:59)
--- NOTE | 2020-07-31 02:00 | PC.NURSE ---
PATIENT MEDICATED PER MD ORDER. 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 REPORTS UPPER ABDOMINAL PAIN, BAD TASTE IN MY MOUTH, BITTER , AND NAUSEA. REPORTS VOMITING AT HOME. PATIENT HAS NOT VOMITED SINCE ARRIVING TO [facility]. WILL CONTINUE TO MONITOR. OF PATIENT'S BLOOD PRESSURE, STATES I DIDN'T TAKE MY BLOOD PRESSURE MEDICATION, BUT I DON'T REMEMBER THE NAME OF IT .
[2020-07-31 02:05] LABS: Alanine Aminotransferase 11 U/L (0-31); Albumin Level 1.9 g/dL (3.5-5.0); Alkaline Phosphatase 111 U/L (39-117); Anion Gap 10 (12-20); Aspartate Amino Transferase 13 U/L (5-31); Bilirubin Direct 0.2 mg/dL (0.0-0.5); Bilirubin Total 0.3 mg/dL (0.0-1.0); Blood Urea Nitrogen 37 mg/dL (9-16); Calcium 7.2 mg/dL (8.4-10.2); Carbon Dioxide 23 mmol/L (22-29); Chloride 107 mmol/L (96-108); Creatinine Clr Calc Pharmacy 45.4; Estimated Glomerular Filt Rate 21; Glucose Random 516 mg/dL (60-115); Lipase 26 U/L (8-78); Potassium 3.8 mmol/l (3.3-5.1); Sodium 136 mmol/L (135-145); Total Protein 4.5 g/dL (6.5-8.0)
[2020-07-31 02:17] LABS: Influenza A PCR NEGATIVE (Negative); Influenza B PCR NEGATIVE (Negative); Resp Syncy Virus RNA Qual PCR NEGATIVE (Negative); SARS COV2 PCR INHOUSE NEGATIVE (Negative)
[2020-07-31 02:35] LABS: Glucose, Whole Blood 444 mg/dL (60-115)
[2020-07-31 03:18] LABS: Glucose, Whole Blood 337 mg/dL (60-115)
--- NOTE | 2020-07-31 04:47 | PM.IMHP ---
History of Present Illness Date of Service: 07/31/20 Chief Complaint: Nausea/Vomiting 60 y/o female with an extensive PMHx who presented from home due to nausea/vomiting/poor oral intake. Per history provided by the patient/ed attending, for the past 2 weeks patient has been having persistent nausea and vomiting which prevents patient from having any PO intake. Patient has been in our facility in the past for similar complains associated with a right upper abdominal discomfort, burning like, 5/10 in intensity which was identified as gastritis and treated with zofran with resolutation of the symptoms. Now patient presents again with recurrence of the symptoms. Bloodwork in the ED showed creatinine of 2.34 with baseline of 2.04, POCT glucose 556 which decreased to 337 after insulin administration per ED. Ketones negative. Patient had CT abdomen imaging done last month due to similar complains and was identified to have a nonobstructing stone in the right mid pole and 1 mm in the right lower pole of the kidney. One dose of metoclopramide was given per ED. Decision for admission was determined. Patient was seen and evaluated at the bedside, laying down in bed in no acute distress. No episodes of vomiting or nausea while in the ED. Patient does reports a metallic taste in the mouth. PMHX: 1. Asthma. 2. Sleep apnea but could not use the CPAP because of insurance issue. 3. Diabetes. 4. Hypertension. 5. Peripheral neuropathy. 6. Left leg upper thigh ulcer. 7. Nephrolithiasis history in the past. 8. Carpal tunnel syndrome. 9. History of bursitis. 10. Lumbar spondylosis. 11. History of calcium deficiency in the past. 12. Spinal stenosis history. 13. Osteoarthritis. PSx: none Toxic habits: No hx of alcohol abuse, smoking or IVDA Review of Systems Gastrointestinal: Gastrointestinal: Reports abdominal pain, Reports nausea and Reports vomiting Neurologic: Reports as per HPI and Reports Abnormal speech present [facility] Medical History Diabetes mellitus Functional capacity: independent ambulation Family History Father Diabetes Mother Diabetes Hypertension Breast cancer Family/Other Breast cancer Uterine cancer Family history: reviewed and not pertinent Surgical History History of tubal ligation Social History Alcohol intake: never Advance Directives: No Advance Directives Information Provided: No Meds Allergies Allergy/AdvReac Type Severity Reaction Status Date / Time metformin [METFORMIN] Allergy Severe HIVES Verified 07/31/20 00:09 Home Medications Medication Instructions Recorded Confirmed Type cushion #1 06/14/20 07/12/20 History albuterol sulfate 90 mcg/actuation INHALATION 06/28/20 07/12/20 History aerosol inhaler alcohol swabs 0 pad TOPICAL BID 06/28/20 07/12/20 History blood sugar diagnostic #10 ea 06/28/20 07/12/20 History bumetanide 1 mg tablet mg PO 06/28/20 07/12/20 History dulaglutide 1.5 mg/0.5 mL mg SUBCUT 06/28/20 07/12/20 History subcutaneous pen injector fluticasone propionate 50 INTRANASAL 06/28/20 07/12/20 History mcg/actuation nasal spray,suspension insulin glargine 100 unit/mL unit SUBCUT 06/28/20 07/12/20 History subcutaneous solution insulin regular hum U-500 conc 500 unit SUBCUT 06/28/20 07/12/20 History unit/mL subcutaneous soln insulin regular human 100 unit/mL IM 06/28/20 07/12/20 History injection solution insulin syringe-needle U-100 1 mL #10 ea 06/28/20 07/12/20 History 30 gauge x 1/2 lancets #100 ea 06/28/20 07/12/20 History lancets 28 gauge #100 ea 06/28/20 07/12/20 History levothyroxine 25 mcg tablet 25 mcg PO DAILY 06/28/20 07/12/20 History losartan 100 mg tablet 100 mg PO DAILY 06/28/20 07/12/20 History losartan 25 mg tablet 25 mg PO DAILY 06/28/20 07/12/20 History omeprazole 40 mg capsule,delayed 40 mg PO DAILY 06/28/20 07/12/20 History release ropinirole 0.5 mg tablet 0.5 mg PO BEDTIME 06/28/20 07/12/20 History simvastatin 20 mg tablet 20 mg PO BEDTIME 06/28/20 07/12/20 History torsemide 100 mg tablet mg PO 06/28/20 07/12/20 History tramadol 50 mg tablet 50 mg PO DAILY 06/28/20 07/12/20 History calcifediol 30 mcg capsule,24 30 mcg PO DAILY 07/12/20 07/12/20 History hr,extended release Physical Exam Vital Signs and Narrative: Vital Signs: Last Vital Signs Pulse 76 07/30/20 23:58 Resp 20 07/30/20 23:58 BP 164/76 H 07/30/20 23:58 Pulse Ox 96 07/30/20 23:58 Body Mass Index 69.2 Const: General: cooperative, comfortable and no acute distress Orientation/consciousness: oriented to person, oriented to place and oriented to time HENMT: Head: Yes normal to inspection Eyes: General: appearance normal, both eyes and all related structures Neck: Yes normal visual inspection Chest: Chest palpation & inspection: normal inspection of the chest Resp: Effort & Inspection: normal respiratory effort Auscultation: clear to auscultation bilaterally Cardio: Jugular venous distension: no JVD Rate: regular rate Rhythm: regular rhythm Heart sounds: S1 normal heart sound present and S2 normal heart sound present GI: Inspection: Yes normal to inspection : General: Yes other (howell +) Skin: General skin exam: no rashes or lesions noted Neuro: General: oriented to person, oriented to place and oriented to time Cognition (Neuro): normal cognition Speech: Abnormal speech present Extrem: Right lower extremity: edema Left lower extremity: edema Psych: Appearance: grossly normal Results Labs CBC and Chem 7: 07/31/20 01:23 07/31/20 01:23 Labs: Laboratory Results - last 24 hr 07/31/20 07/31/20 07/31/20 01:23 01:23 01:23 MCV 91.5 MCH 30.1 MCHC 32.8 RDW 14.0 Plt Count 293 MPV 10.0 Immature Gran % (Auto) 0.4 Neut % (Auto) 64.0 Lymph % (Auto) 24.6 [place] % (Auto) 8.2 Eos % (Auto) 2.3 Baso % (Auto) 0.5 Lymph # (Auto) 2.6 [place] # (Auto) 0.9 Eos # (Auto) 0.2 Baso # (Auto) 0.1 Abs Immat Gran (auto) 0.04 H Absolute Neuts (auto) 6.8 Absolute Nucleated RBC 0.000 Nucleated RBC % (auto) 0.0 Anion Gap 10 L Estim Creat Clear Calc 45.4 Estimated GFR 21 POC Glucose Random Glucose 516 H* Calcium 7.2 L Total Bilirubin 0.3 Direct Bilirubin 0.2 AST 13 ALT 11 Alkaline Phosphatase 111 Total Protein 4.5 L Albumin 1.9 L Lipase 26 Coronavirus (PCR) NEGATIVE Influenza Type A (PCR) NEGATIVE Influenza Type B (PCR) NEGATIVE RSV RNA Qual (PCR) NEGATIVE 07/31/20 07/31/20 01:55 03:14 MCV MCH MCHC RDW Plt Count MPV Immature Gran % (Auto) Neut % (Auto) Lymph % (Auto) [place] % (Auto) Eos % (Auto) Baso % (Auto) Lymph # (Auto) [place] # (Auto) Eos # (Auto) Baso # (Auto) Abs Immat Gran (auto) Absolute Neuts (auto) Absolute Nucleated RBC Nucleated RBC % (auto) Anion Gap Estim Creat Clear Calc Estimated GFR POC Glucose 444 H* 337 H Random Glucose Calcium Total Bilirubin Direct Bilirubin AST ALT Alkaline Phosphatase Total Protein Albumin Lipase Coronavirus (PCR) Influenza Type A (PCR) Influenza Type B (PCR) RSV RNA Qual (PCR) Assessment and Plan (1) Diabetes mellitus with gastroparesis: Status: Acute NPO for now Anti-emetics PRN IV hydration Insulin SS GI consult in the am for possible EGD (2) Nausea & vomiting: Status: Acute plan as above (3) Acute kidney injury superimposed on CKD: Status: Acute 2.3 with baseline of 2.0 IV hydration monitor renal function and electrolytes closely nephrology consult in the am (4) Hypertension: Status: Acute continue with home BP meds (5) IBS (irritable bowel syndrome): Status: Acute continue with home meds as ordered (6) Hypothyroidism: Status: Acute continue with home meds as ordered
[2020-07-31 05:12] LABS: Appearance Urine CLEAR; Color Urine STRAW; Glucose Urine UA >=1000 MG/DL (NEG); Leukocyte Esterase Urine NEG (NEG); Nitrite Urine NEG (NEG); Specific Gravity - Urine 1.015 (1.005-1.025); Urine Blood 3+ (NEG); Urine Ketones NEG (NEG); Urine Protein 3+ MG/DL (NEG-TRACE)
[2020-07-31 05:13] LABS: Bacteria Urine TRACE /LPF; Squamous Epithelial Cell Urine TRACE /LPF; UACC CULT YES
[2020-07-31 05:14] LABS: Amorphous Sediment Urine 1+ /LPF; Hyaline Casts Urine 0-2 /LPF; Oval Fat Bodies Urine NOTED; WBC Clumps Urine NOTED; Waxy Casts Urine 0-2 /LPF
--- NOTE | 2020-07-31 06:02 | PC.NURSE ---
PATIENT REPOSITIONED TO LEFT SIDE, WITH 3 ASSIST. PT UNABLE TO TURN SELF OVER OR AMBULATE (BASELINE). WILL CONTINUE TO MONITOR.
--- NOTE | 2020-07-31 06:19 | PC.NURSE ---
POC GLUCOSE 317, OBTAINED BY DILAN (PCT). THIS RN NOTIFIED, PROVIDER AWARE.
[2020-07-31 06:23] LABS: Glucose, Whole Blood 317 mg/dL (60-115)
[2020-07-31] MEDS: Insulin Regular, Human 100 UNIT/ML 3 ML VIAL IVPUSH (06:25)
--- NOTE | 2020-07-31 06:32 | PC.NURSE ---
PATIENT STATES THAT SHE DOES NOT KNOW THE NAMES OF THE MEDICATIONS THAT SHE TAKES. USES [facility] ON [address] [facility] IN [place], [place]. THIS RN ATTEMPTING TO OBTAIN MEDICATION RX LIST FROM [facility] AT THIS TIME VIA PHONE.
--- NOTE | 2020-07-31 06:50 | PC.NURSE ---
MEDICATION RECONCILIATION COMPLETED. AWAITING BED ASSIGNMENT.
--- NOTE | 2020-07-31 09:00 | PC.NURSE ---
pt sitting at bedside eating breakfast at this time. equal unlabored breathing, [id number] waiting for bed assignment
[2020-07-31 09:03] LABS: Glucose, Whole Blood 275 mg/dL (60-115)
[2020-07-31] MEDS: amLODIPine Besylate 5 MG TABLET PO (09:30)
[2020-07-31] MEDS: Levothyroxine Sodium 25 MCG TABLET PO (09:30)
[2020-07-31] MEDS: Insulin Lispro 100 UNIT/ML 3 ML VIAL SUBCUT ×4 (09:30→21:42)
--- NOTE | 2020-07-31 11:45 | PC.NURSE ---
Pt resting in bed, urinary cath drainging clear/yellow urine, skin w/p/d, speaks in clear and full sentences, no apparent distress noted, requested and given ice chips, vss. pending room assignment, pt aware and agreeable to plan of care.
--- NOTE | 2020-07-31 11:57 | PC.NURSE ---
x1 attempt to give report.
--- NOTE | 2020-07-31 12:26 | PC.NURSE ---
x2 call for report, rn will call back per mental health unit lead psychologist.
[2020-07-31 14:07] LABS: MANUAL DIFF FLAG NO
[2020-07-31 14:08] LABS: Basophils Absolute Auto 0.1 X10*3/uL (0.0-0.2); Basophils Percent Auto 0.6 % (0-2); Eosinophils Absolute Auto 0.4 X10*3/uL (0.0-0.4); Eosinophils Percent Auto 3.2 % (0-4); Hematocrit 33.9 % (37-47); Hemoglobin 11.2 g/dl (12.0-16.0); Imm Gran Abs Auto 0.06 X10*3/uL (0.00-0.03); Imm Gran Pct Auto 0.5 % (0.0-0.4); Lymphocytes Absolute Auto 2.9 X10*3/uL (1.2-4.9); Lymphocytes Percent Auto 22.9 % (20-40); Mean Corpuscular Hemoglobin 30.4 pg (27.0-33.0); Mean Corpuscular Volume 92.1 fL (80-98); Mean Platelet Volume 10.5 fL (9.4-12.3); Monocytes Absolute Auto 1.1 X10*3/uL (0.1-1.2); Monocytes Percent Auto 8.9 % (2-11); Neutrophils Percent Auto 63.9 % (45-73); Platelet Count 321 X10*3/uL (160-400); Red Blood Count 3.68 X10*6/uL (4.20-5.50); Red Cell Distribution Width 14.1 % (11.0-16.0); White Blood Count 12.5 X10*3/uL (4.8-10.8)
[2020-07-31] MEDS: 0.9 % Sodium Chloride Flush 3 ML SYRINGE IVFLUSH ×2 (14:28→16:24)
[2020-07-31] MEDS: Heparin Sodium,Porcine 5,000 UNIT/ML VIAL 5000 UNIT SUBCUT ×2 (14:28→21:42)
[2020-07-31 14:29] LABS: Glucose, Whole Blood 354 mg/dL (60-115)
[2020-07-31 14:53] LABS: Anion Gap 13 (12-20); Blood Urea Nitrogen 36 mg/dL (9-16); Calcium 7.1 mg/dL (8.4-10.2); Carbon Dioxide 21 mmol/L (22-29); Chloride 107 mmol/L (96-108); Creatinine Clr Calc Pharmacy 48.8; Estimated Glomerular Filt Rate 23; Glucose Random 344 mg/dL (60-115); Potassium 3.7 mmol/l (3.3-5.1); Sodium 137 mmol/L (135-145)
[2020-07-31 16:23] LABS: Glucose, Whole Blood 228 mg/dL (60-115)
--- NOTE | 2020-07-31 17:40 | PM.EVENT ---
Event Note Date of Service: 07/31/20 Event Note: Follow up in brief S feeling okay, abd pain okay, nausea okay O vitals - last documented Gen - nad cvs - s1s2 lungs - distant, but no distress abd - soft nt [id number] A/P 60 yo F with poorly controlled DM presenting with n/v -- possibly diabetic gastropareisis other causes need to be ruled out such as PUD empiric po PPI antiemetics as needed IVF seen by GI -- d/w Dr. Spencer, plan for endoscopic eval tomorrow, clears for now, npo after midnight
[2020-07-31] MEDS: Omeprazole 20 MG CAPSULE.DR PO (17:59)
[2020-07-31] MEDS: Lactated Ringers 1,000 ML 100 ML IVCONT (17:59)
--- NOTE | 2020-07-31 18:11 | PM.PNNEP ---
Subjective Subjective Date of Service: 07/31/20 Physical Exam Vital Signs: Vital Signs: Last Vital Signs Temp 97.7 F 07/31/20 15:37 Pulse 65 07/31/20 15:37 Resp 19 07/31/20 15:37 BP 163/63 H 07/31/20 15:37 Pulse Ox 100 07/31/20 15:37 Body Mass Index 69.2 Assessment & Plan Assessment and plan (1) CKD (chronic kidney disease) stage 4, GFR 15-29 ml/min: Problem details: Patient seen and examined Well known to my associate Middle aged woman with Obesity, DM > 20 yrs, with 3.5 gm proteinuria, CKD 4 with a baseline creatinine between 2.0 and 2.4 mg /dL Usually on Losartan 100mg with Torsemide 100mg QD Admitted with nausea/Vomiting.Diarrhea and Cr of 2.14 and uncontrolled DM with glycosuria For now, Hold Diuretics Creatinine close to baseline Optimize blood sugar and treat gastroparesis Consult dictated Thanks Status: Acute
--- NOTE | 2020-07-31 19:46 | CONS_ITS ---
DATE OF SERVICE: REASON FOR CONSULTATION: I was called to see this patient to assist in the management of chronic kidney disease. HISTORY OF PRESENT ILLNESS: To summarize, Isabel is a 60-year-old woman with a history of morbid obesity, longstanding diabetes mellitus for more than 20 years with nephrotic range proteinuria of about 3.5 g/dL. She is being followed by my associate, Dr. Dejesus in the outpatient setting. She was last seen on July 08. At that time, the serum creatinine was 2.4 mg/dL. She had significant edema at the time. The torsemide was increased to 100 mg and she was also on losartan 100 mg. Isabel has been readmitted because of nausea and vomiting and currently being treated for diabetic gastroparesis. At the time of this admission, serum creatinine was 2.14, which is rather close to her baseline and the blood sugars have been suboptimal. This consultation requested for management of the chronic kidney disease. PAST MEDICAL HISTORY: Ongoing medical problems include history of chronic kidney disease stage 4, most likely due to diabetic nephropathy, baseline creatinine of around 2 to 2.4 mg/dL. Longstanding hypertension, morbid obesity, peripheral neuropathy, history of nephrolithiasis, spinal stenosis, osteoarthritis, history of sleep apnea, but not using CPAP, history of asthma. PAST SURGICAL HISTORY: Unknown. SOCIAL HISTORY: No history of any smoking or alcohol abuse. FAMILY HISTORY: Significant for hypertension and diabetes mellitus. No history of any kidney disease. HOME MEDICATIONS: As recorded include albuterol, Bumex 1 mg daily, although as per our office records, she was on torsemide 100 mg, insulin, fluticasone, dulaglutide, levothyroxine, losartan 100 mg, omeprazole, tramadol, vitamin D, simvastatin, ropinirole. All the current medications were reviewed. REVIEW OF SYSTEMS: Positive for nausea, vomiting, diarrhea. No abdominal pain. No shortness of breath. No cough. No fever. She denies weight loss. No rash. No joint pain. All other systems were reviewed. PHYSICAL EXAMINATION: GENERAL: Isabel is a middle-aged woman, who is obese, lying flat in bed, comfortable, not in any distress. NECK: Supple. No JVD. HEENT: Mucosa is moist. LUNGS: Air entry equal. No rales. HEART: S1 and S2 heard. No gallop or rub. ABDOMEN: Soft, nontender. EXTREMITIES: Possibly, no significant pitting edema. No rash or clubbing. VITAL SIGNS: Blood pressure was 160/60, pulse 65, temperature 97.7. LABORATORY DATA: Sodium 137, potassium 3.7, CO2 of 21, BUN 36, creatinine 2.14, blood sugar 344, calcium 7.1. In the past, urine protein-creatinine ratio was 3.5. Urinalysis on admission showed 3+ protein with dipstick with more than 1000 mg of glycosuria with 3+ blood. UA has always shown 15 to 30 rbc's and 10 to 15 wbc's. In the past, serum complements were normal. She had marginally elevated IgA levels. CT of the abdomen on July 03 showed a 3 mm nonobstructing stone, otherwise unremarkable. She has no imaging studies this admission. ASSESSMENT AND PLAN: 1. Stage 4 chronic kidney disease, most likely due to longstanding diabetes mellitus leading to hypertensive diabetic kidney disease. Nondiabetic causes for proteinuria seem unlikely based on the previous urologic evaluation. 2. Longstanding diabetes mellitus with diabetic gastroparesis. 3. Morbid obesity. 4. Anemia. RECOMMENDATIONS: At this point would be to hold all the diuretics. We will hold ARB as well for a day, reassess the blood pressure and then start her back on losartan. The renal function is close to baseline at this time. The oral intake is poor due to nausea and vomiting. She may require cautious IV hydration. There is no evidence of any obstructive uropathy at this time. She has had history of microscopic hematuria with some wbc's in the urine. I will certainly check the urine for culture and check urine for eosinophils. She has mild anemia, but there is no indication to start on any Epogen at this time. The blood sugar seems suboptimal. This needs to be addressed. We will follow along with the team. MD AALIYAH Arrieta/MODL / [id number]
--- NOTE | 2020-07-31 20:18 | PM.GICN ---
History of Present Illness Data of Consult Service Date: 07/31/20 Requesting physician: Stevie Hernandez Primary Care Provider: Unknown Physician HPI Reason for consult: nausea,vomiting 60 y/o female with hx of asthma, JULIUS< DM, HTN< kidney stones, proteinuria and ckd, obesity, and OA who I am asked to see for assessment for persistent nausea and vomiting. She has had ongoing persistent nausea, non bloody emesis and 5/10 severity epigastric pain with poor appetite, pain is worse when hungry relieved by eating. It does not radiate anywhere, she also thinks she may have seem some darkish blood in stool, with ongoing constipation. worsening reflux symptoms as well. she didn;t really feel zofran helped sx. She does have dysuria, UA with protein and blood Bloodwork in the ED showed creatinine of 2.34 with baseline of 2.04, POCT glucose 556 which decreased to 337 after insulin administration per ED. Ketones negative. Patient had CT abdomen imaging done last month due to similar complains and was identified to have a nonobstructing stone in the right mid pole and 1 mm in the right lower pole of the kidney, SQ edema/stranding. Today she feels mildyl improved and wants to try to eat food. Review of Systems Review of Systems: Yes all other systems are reviewed and are negative Neurologic: Reports as per HPI and Reports Abnormal speech present [facility] Past Medical History Medical History Diabetes mellitus Functional capacity: independent ambulation Family History Family History Father Diabetes Mother Diabetes Hypertension Breast cancer Family/Other Breast cancer Uterine cancer Family history: reviewed and not pertinent Surgical History Surgical History History of tubal ligation Social History Social History Household Members: None Housing: Apartment Do you presently have visiting nurse or other home services: No Alcohol intake: never Smoking Status: Never smoker Use of substances other than those prescribed or required for medical reasons: No Have you been hit, kicked, punched, or otherwise hurt by someone within the past year? If so, by whom?: No Do you feel safe in your current relationship?: No Current Relationship Is there a partner from a previous relationship who is making you feel unsafe now?: No Are you made to feel afraid or neglected: No Advance Directives: No Advance Directives Information Provided: No Do you have thoughts of harming others: None Do you have a plan to hurt others: No Plan Recently lost weight without trying: No Meds Allergies Allergy/AdvReac Type Severity Reaction Status Date / Time metformin [METFORMIN] Allergy Severe HIVES Verified 07/31/20 00:09 canagliflozin [From Invokana] Allergy Hives Verified 07/31/20 06:50 Home Medications Medication Instructions Recorded Confirmed Type albuterol sulfate 2 puff INHALATION Q4H PRN 07/31/20 07/31/20 History amlodipine 1 tab PO DAILY 07/31/20 07/31/20 History blood-glucose meter [Accu-Chek 07/31/20 07/31/20 History Berna Plus Meter] bumetanide 1 tab PO BID 07/31/20 07/31/20 History calcifediol [Rayaldee] 1 cap PO DAILY 07/31/20 07/31/20 History dulaglutide [Trulicity] mg SUBCUT QWEEK 07/31/20 History insulin regular hum U-500 conc 30 unit SUBCUT TID 07/31/20 07/31/20 History [Humulin R U-500 (Conc) Insulin] insulin syringe-needle U-100 07/31/20 07/31/20 History [UltiCare] lancets [FreeStyle Lancets] 07/31/20 07/31/20 History levothyroxine 1 tab PO DAILY 07/31/20 07/31/20 History losartan 1 tab PO DAILY 07/31/20 07/31/20 History losartan 1 tab PO DAILY 07/31/20 07/31/20 History nitrofurantoin monohyd/m-cryst 1 cap PO Q12H 07/31/20 07/31/20 History ondansetron HCl 1 tab PO TID 07/31/20 07/31/20 History ropinirole 1 tab PO BEDTIME 07/31/20 07/31/20 History simvastatin 1 tab PO BEDTIME 07/31/20 07/31/20 History torsemide 1 tab PO BID 07/31/20 07/31/20 History tramadol 1 tab PO DAILY 07/31/20 07/31/20 History Physical Exam Vital Signs: Vital Signs: Last Vital Signs Temp 97.7 F 07/31/20 15:37 Pulse 65 07/31/20 15:37 Resp 19 07/31/20 15:37 BP 163/63 H 07/31/20 15:37 Pulse Ox 100 07/31/20 15:37 Body Mass Index 69.2 Const: General: cooperative, comfortable, no acute distress, alert and awake Nutritional Appearance: obese Orientation/consciousness: oriented to person, oriented to place and oriented to time Limitations: no limitations HENMT: Head: Yes normal to inspection, Yes normocephalic and Yes atraumatic Ears: hearing grossly normal bilaterally and external ears normal General nose exam: Normal external nose present Face and sinus: Yes normal facial exam and Yes sinuses nontender Mouth: lip normal, tongue normal and oropharynx normal Teeth and gingiva: poor dentition Eyes: General: appearance normal, both eyes and all related structures Periorbital: periorbital findings normal Eyelids: Yes eyelids normal Conjunctivae: conjunctivae normal Sclerae: sclerae normal Corneas: corneas normal Pupils: Equal, round and reactive pupils present Direct Ophthalmoscopy: normal light reflex Neck: Neck: Yes normal visual inspection and Yes supple Lymphatic: no lymphadenopathy noted Chest: Chest palpation & inspection: normal inspection of the chest and normal palpation of entire chest wall Resp: Effort & Inspection: normal respiratory effort, abnormal respiratory pattern, no audible wheezes and no respiratory distress Auscultation: clear to auscultation bilaterally, no crackles, no rales, no rhonchi and no wheezes Cardio: Jugular venous distension: no JVD Rate: regular rate Rhythm: regular rhythm Heart sounds: S1 normal heart sound present, S2 normal heart sound present and no murmurs GI: Inspection: Yes normal to inspection and No distended Palpation (GI): Soft to palpation, Tenderness to palpation present (GI) in the epigastrum, in the RLQ and in the RUQ, no guarding and No hepatosplenomegaly present Auscultation: normal bowel sounds : General: Yes no CVA tenderness and Yes other (howell +) Back/Spine/Pelvis: Back: no CVA tenderness Skin: General skin exam: no rashes or lesions noted Lesions: no lesions Rashes: no rashes Wounds: no wounds Neuro: General: oriented to person, oriented to place and oriented to time Cranial nerves: Yes CN's II-XII intact bilaterally and Yes Equal, round and reactive pupils present Cognition (Neuro): normal cognition Speech: Abnormal speech present Motor exam (neuro): 5/5 motor strength present throughout Extrem: General: Yes normal to inspection, Yes full ROM, Yes no pedal edema and Yes no calf tenderness Right lower extremity: edema Left lower extremity: edema Psych: Appearance: grossly normal Mental Status: mental status grossly normal Speech and movement: Clear speech present Affect: normal affect Thought process: Normal thought process present Results Labs CBC & Chem 7: 07/31/20 13:38 07/31/20 13:38 Labs: Short CBC 07/31/20 07/31/20 Range/Units 01:23 13:38 WBC 10.6 12.5 H (4.8-10.8) X10*3/uL Hgb 11.3 L 11.2 L (12.0-16.0) g/dl Hct 34.4 L 33.9 L (37-47) % Plt Count 293 321 (160-400) X10*3/uL BMP 07/31/20 07/31/20 01:23 13:38 Sodium 136 137 Potassium 3.8 3.7 Chloride 107 107 Carbon Dioxide 23 21 L BUN 37 H 36 H Creatinine 2.30 H 2.14 H Calcium 7.2 L 7.1 L Liver Function 07/31/20 Range/Units 01:23 Total Bilirubin 0.3 (0.0-1.0) mg/dL Direct Bilirubin 0.2 (0.0-0.5) mg/dL AST 13 (5-31) U/L ALT 11 (0-31) U/L Alkaline Phosphatase 111 (39-117) U/L Albumin 1.9 L (3.5-5.0) g/dL Urine 07/31/20 Range/Units 03:45 Urine Color STRAW Urine Appearance CLEAR Urine pH 6.0 (5.0-8.0) Ur Specific [place] 1.015 (1.005-1.025) Urine Protein 3+ H (NEG-TRACE) MG/DL Urine Glucose (UA) >=1000 H (NEG) MG/DL Assessment and Plan (1) Nausea & vomiting: Status: Acute 1/ Worsening nausea, vomiting with worsening pain when hungry, better with food, need to r/o GOO from peptic ulcer disease, ddx:gastroparesis strong possibility give her long standing Dm and nephropathy. No evidence of mesenteric ischemia, or liver/biliary pathology, pancreatitis,await urine culture. PLAN: 1/ cont with PPi 2/ EGD tomorrow for further assessment, if neg then GES 3/ await urine culture
[2020-07-31 20:19] LABS: Glucose, Whole Blood 204 mg/dL (60-115)
[2020-07-31] MEDS: Atorvastatin Calcium 10 MG TABLET PO (21:42)
[2020-07-31] MEDS: rOPINIRole HCL 0.5 MG TABLET PO (21:42)
[2020-07-31] MEDS: Nystatin Powder 15 GM BOTTLE 1 APPL TOPICAL (21:46)
[2020-08-01] VITALS (8 sets, daily range): BP systolic 90–158; BP diastolic 48–72; PULSE 70–77; RESP 18–20; TEMP 36.4–36.8; O2SAT 93–98; BMI 66.4
[2020-08-01] MEDS: Lactated Ringers 1,000 ML 100 ML IVCONT (04:03)
[2020-08-01 06:26] LABS: Hematocrit 32.9 % (37-47); Hemoglobin 10.9 g/dl (12.0-16.0); Mean Corpuscular HGB Conc 33.1 g/dl (31.0-35.0); Mean Corpuscular Volume 90.6 fL (80-98); Mean Platelet Volume 10.2 fL (9.4-12.3); Platelet Count 287 X10*3/uL (160-400); Red Blood Count 3.63 X10*6/uL (4.20-5.50); Red Cell Distribution Width 13.8 % (11.0-16.0); White Blood Count 10.3 X10*3/uL (4.8-10.8)
--- NOTE | 2020-08-01 06:32 | PC.NURSE ---
patient scheduled for planned endoscopy later this day, npo after midnight maintained, ivf as ordered, howell cath draining cloudy yellow urine, skin care and repositioning provided. note sent to hospitalist concerning administering am heparin sc and told to hold this am dose, po medications also held for npo status.
[2020-08-01 06:48] LABS: Anion Gap 10 (12-20); Blood Urea Nitrogen 31 mg/dL (9-16); Calcium 7.2 mg/dL (8.4-10.2); Carbon Dioxide 23 mmol/L (22-29); Chloride 108 mmol/L (96-108); Estimated Glomerular Filt Rate 27; Glucose Random 244 mg/dL (60-115); Potassium 3.5 mmol/l (3.3-5.1); Sodium 137 mmol/L (135-145)
[2020-08-01 08:14] LABS: Glucose, Whole Blood 219 mg/dL (60-115)
[2020-08-01] MEDS: Insulin Lispro 100 UNIT/ML 3 ML VIAL SUBCUT ×4 (08:17→22:01)
[2020-08-01] MEDS: amLODIPine Besylate 5 MG TABLET PO (08:17)
--- NOTE | 2020-08-01 12:39 | HO.PM.IMPN ---
Subjective Subjective Date of Service: 08/01/20 Interval History: seen and examined this AM nausea with dry heaving denies cardiac or respiratory symptoms Physical Exam Vital Signs: Vital Signs: Last Vital Signs Temp 98.2 F 08/01/20 12:30 Pulse 74 08/01/20 12:30 Resp 18 08/01/20 12:30 BP 123/69 08/01/20 12:30 Pulse Ox 97 08/01/20 12:30 Body Mass Index 66.4 Const: Other: General - no acute distress, appears comfortable Cardiovascular - regular rate and rhythm, S1-S2 Lungs - normal respiratory effort, clear to auscultation bilaterally, no wheezing Abdomen - soft, nontender, no rebound or guarding Extremities - no edema bilaterally Neuro - awake and alert, no focal deficits Objective Data Current Medications Generic Name Dose Route Start Last Admin Trade Name Freq PRN Reason Stop Dose Admin Amlodipine Besylate 5 mg 07/31/20 09:00 08/01/20 08:17 Amlodipine Besylate 5 Mg Tablet PO 5 mg DAILY [facility] Administration Protocol Atorvastatin Calcium 10 mg 07/31/20 21:00 07/31/20 21:42 Atorvastatin Calcium 10 Mg Tablet PO 10 mg BEDTIME [facility] Administration Heparin Sodium (Porcine) 5,000 unit 07/31/20 14:00 08/01/20 06:32 Heparin Sodium,Porcine 5,000 Unit/Ml Vial SUBCUT Not Given Q8H [facility] Lactated Ringer's 1,000 mls @ 100 mls/hr 07/31/20 17:45 08/01/20 12:01 Lr IVCONT 0 mls/hr .Q10H [facility] Infusion Insulin Human Lispro 0 unit 08/01/20 07:30 08/01/20 12:01 Insulin Lispro 100 Unit/Ml 3 Ml Vial SUBCUT 2 unit QIDACHS [facility] Administration Protocol Levothyroxine Sodium 25 mcg 07/31/20 09:00 08/01/20 08:16 Levothyroxine Sodium 25 Mcg Tablet PO Not Given DAILY [facility] Omeprazole 20 mg 07/31/20 17:45 08/01/20 06:32 Omeprazole 20 Mg Capsule. PO Not Given DAILY@0630 [facility] Pharmacy Consult 1 each 07/31/20 02:51 Consult Rx Perform Med Rec MISCELLANE ONCE PRN Consult order Ropinirole HCl 0.5 mg 07/31/20 21:00 07/31/20 21:42 Ropinirole Hcl 0.5 Mg Tablet PO 0.5 mg BEDTIME [facility] Administration Sodium Chloride 3 ml 07/31/20 13:27 08/01/20 07:14 0.9 % Sodium Chloride Flush 3 Ml Syringe IVFLUSH Not Given QSHIFT [facility] Labs CBC & Chem 7: 08/01/20 06:09 08/01/20 06:09 Microbiology Microbiology Results: Microbiology 07/31/20 Unknown Urine clean catch - Catheterized Urine Culture - Preliminary No growth to date. Assessment and Plan (1) Diabetes mellitus with gastroparesis: Status: Acute Assessment and Plan: This is a 60 yo F with morbid Obesity, JULIUS noncompliant with CPAP, uncontrolled and longstanding diabetes who presents to the hospital with complaints of intractable nausea and vomiting. She is admitted for further work up. 1. Intractable n/v with pain likely 2/2 to dibetic gastroparesis, but need to rule out other causes GI on board -- plan for EGD today empiric ppi antiemetics and pain contorol IVF 2. RASHEEDA on CKD stage 4 improved with fluids, continue for now arb + diuretics on hold 3. JULIUS non complaint with cpap at home, so she tells me her insurance took it away encouraged her to f/u with pulmonary and repeat sleep study 4. morbid obesity weight loss 5. Hypothyroid synthroid Full Code DVT pptx, heparin
[2020-08-01 12:44] LABS: Glucose, Whole Blood 188 mg/dL (60-115)
--- NOTE | 2020-08-01 12:54 | MHC.CM.PN ---
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 CONFIRMED PCP DR AUDI MEYER DISCHARGE PLAN [facility] , SELF RESUMPTION OF HER SERVICES WITH [employer] FOR HER FOREST ECONOMIST PCP PATIENT TO CALL FOR [facility] DISCHARGE FOLLOW UP TRANSPORTATION TO BE FURTHER DETERMINED MEDICARE IMM DELIVERED .
--- NOTE | 2020-08-01 14:45 | P.CONAN_ITS ---
HPI - Anesthesia Eval Consult details Narrative: 60 F morbidly obese p/f EGD PMFSH Past Medical History Medical History Diabetes mellitus Functional capacity: independent ambulation Family History Family History Father Diabetes Mother Diabetes Hypertension Breast cancer Family/Other Breast cancer Uterine cancer Surgical History Surgical History History of tubal ligation Social History Social History Household Members: None Housing: Apartment Do you presently have visiting nurse or other home services: No Alcohol intake: never Smoking Status: Never smoker Use of substances other than those prescribed or required for medical reasons: No Currently Displaying Signs/Symptoms of Drug Intoxication Withdrawal: No Have you been hit, kicked, punched, or otherwise hurt by someone within the past year? If so, by whom?: No Do you feel safe in your current relationship?: No Current Relationship Is there a partner from a previous relationship who is making you feel unsafe now?: No Are you made to feel afraid or neglected: No Advance Directives: No Advance Directives Information Provided: No Do you have thoughts of harming others: None Do you have a plan to hurt others: No Plan Recently lost weight without trying: No service: No Current occupational status: disabled Meds Allergies Allergy/AdvReac Type Severity Reaction Status Date / Time metformin [METFORMIN] Allergy Severe HIVES Verified 07/31/20 00:09 canagliflozin [From Invokana] Allergy Hives Verified 07/31/20 06:50 Home Medications Medication Instructions Recorded Confirmed Type albuterol sulfate 2 puff INHALATION Q4H PRN 07/31/20 07/31/20 History amlodipine 1 tab PO DAILY 07/31/20 07/31/20 History blood-glucose meter [Accu-Chek 07/31/20 07/31/20 History Berna Plus Meter] bumetanide 1 tab PO BID 07/31/20 07/31/20 History calcifediol [Rayaldee] 1 cap PO DAILY 07/31/20 07/31/20 History dulaglutide [Trulicity] mg SUBCUT QWEEK 07/31/20 History insulin regular hum U-500 conc 30 unit SUBCUT TID 07/31/20 07/31/20 History [Humulin R U-500 (Conc) Insulin] insulin syringe-needle U-100 07/31/20 07/31/20 History [UltiCare] lancets [FreeStyle Lancets] 07/31/20 07/31/20 History levothyroxine 1 tab PO DAILY 07/31/20 07/31/20 History losartan 1 tab PO DAILY 07/31/20 07/31/20 History losartan 1 tab PO DAILY 07/31/20 07/31/20 History nitrofurantoin monohyd/m-cryst 1 cap PO Q12H 07/31/20 07/31/20 History ondansetron HCl 1 tab PO TID 07/31/20 07/31/20 History ropinirole 1 tab PO BEDTIME 07/31/20 07/31/20 History simvastatin 1 tab PO BEDTIME 07/31/20 07/31/20 History torsemide 1 tab PO BID 07/31/20 07/31/20 History tramadol 1 tab PO DAILY 07/31/20 07/31/20 History Exam Exam Date and Time: August 01, 2020 1445 Height,Weight and Vital Signs: Height 5 ft 6 in Weight 186.6 kg Last Vital Signs Temp 98.2 F 08/01/20 12:30 Pulse 74 08/01/20 12:30 Resp 18 08/01/20 12:30 BP 123/69 08/01/20 12:30 Pulse Ox 97 08/01/20 12:30 Pertinent Lab Results Pertinent Lab Results: Laboratory Tests 07/31/20 07/31/20 07/31/20 01:23 01:23 01:23 WBC 10.6 RBC 3.76 L Hgb 11.3 L Hct 34.4 L MCV 91.5 MCH 30.1 MCHC 32.8 RDW 14.0 Plt Count 293 MPV 10.0 Immature Gran % (Auto) 0.4 Neut % (Auto) 64.0 Lymph % (Auto) 24.6 Harris % (Auto) 8.2 Eos % (Auto) 2.3 Baso % (Auto) 0.5 Lymph # (Auto) 2.6 Harris # (Auto) 0.9 Eos # (Auto) 0.2 Baso # (Auto) 0.1 Abs Immat Gran (auto) 0.04 H Absolute Neuts (auto) 6.8 Absolute Nucleated RBC 0.000 Nucleated RBC % (auto) 0.0 Sodium 136 Potassium 3.8 Chloride 107 Carbon Dioxide 23 Anion Gap 10 L BUN 37 H Creatinine 2.30 H Estim Creat Clear Calc 45.4 Estimated GFR 21 POC Glucose Random Glucose 516 H* Calcium 7.2 L Total Bilirubin 0.3 Direct Bilirubin 0.2 AST 13 ALT 11 Alkaline Phosphatase 111 Total Protein 4.5 L Albumin 1.9 L Lipase 26 Urine Color Urine Appearance Urine pH Ur Specific [place]ell Urine Protein Urine Glucose (UA) Urine Ketones Urine Blood Urine Nitrite Ur Leukocyte Esterase Urine RBC Urine WBC Urine WBC Clumps Ur Squamous Epith Cells Amorphous Sediment Urine Bacteria Hyaline Casts Waxy Casts Urine Yeast Ur Oval Fat Bodies Coronavirus (PCR) NEGATIVE Influenza Type A (PCR) NEGATIVE Influenza Type B (PCR) NEGATIVE RSV RNA Qual (PCR) NEGATIVE 07/31/20 07/31/20 07/31/20 01:55 03:14 03:45 WBC RBC Hgb Hct MCV MCH MCHC RDW Plt Count MPV Immature Gran % (Auto) Neut % (Auto) Lymph % (Auto) Harris % (Auto) Eos % (Auto) Baso % (Auto) Lymph # (Auto) Harris # (Auto) Eos # (Auto) Baso # (Auto) Abs Immat Gran (auto) Absolute Neuts (auto) Absolute Nucleated RBC Nucleated RBC % (auto) Sodium Potassium Chloride Carbon Dioxide Anion Gap BUN Creatinine Estim Creat Clear Calc Estimated GFR POC Glucose 444 H* 337 H Random Glucose Calcium Total Bilirubin Direct Bilirubin AST ALT Alkaline Phosphatase Total Protein Albumin Lipase Urine Color STRAW Urine Appearance CLEAR Urine pH 6.0 Ur Specific Chassell 1.015 Urine Protein 3+ H Urine Glucose (UA) >=1000 H Urine Ketones NEG Urine Blood 3+ H Urine Nitrite NEG Ur Leukocyte Esterase NEG Urine RBC 15-29 H Urine WBC 10-14 H Urine WBC Clumps NOTED Ur Squamous Epith Cells TRACE Amorphous Sediment 1+ Urine Bacteria TRACE Hyaline Casts 0-2 Waxy Casts 0-2 Urine Yeast TRACE Ur Oval Fat Bodies NOTED Coronavirus (PCR) Influenza Type A (PCR) Influenza Type B (PCR) RSV RNA Qual (PCR) 07/31/20 07/31/20 07/31/20 06:19 08:58 11:43 WBC RBC Hgb Hct MCV MCH MCHC RDW Plt Count MPV Immature Gran % (Auto) Neut % (Auto) Lymph % (Auto) Harris % (Auto) Eos % (Auto) Baso % (Auto) Lymph # (Auto) Harris # (Auto) Eos # (Auto) Baso # (Auto) Abs Immat Gran (auto) Absolute Neuts (auto) Absolute Nucleated RBC Nucleated RBC % (auto) Sodium Potassium Chloride Carbon Dioxide Anion Gap BUN Creatinine Estim Creat Clear Calc Estimated GFR POC Glucose 317 H 275 H 354 H* Random Glucose Calcium Total Bilirubin Direct Bilirubin AST ALT Alkaline Phosphatase Total Protein Albumin Lipase Urine Color Urine Appearance Urine pH Ur Specific [place] Urine Protein Urine Glucose (UA) Urine Ketones Urine Blood Urine Nitrite Ur Leukocyte Esterase Urine RBC Urine WBC Urine WBC Clumps Ur Squamous Epith Cells Amorphous Sediment Urine Bacteria Hyaline Casts Waxy Casts Urine Yeast Ur Oval Fat Bodies Coronavirus (PCR) Influenza Type A (PCR) Influenza Type B (PCR) RSV RNA Qual (PCR) 07/31/20 07/31/20 07/31/20 13:38 13:38 16:16 WBC 12.5 H RBC 3.68 L Hgb 11.2 L Hct 33.9 L MCV 92.1 MCH 30.4 MCHC 33.0 RDW 14.1 Plt Count 321 MPV 10.5 Immature Gran % (Auto) 0.5 H Neut % (Auto) 63.9 Lymph % (Auto) 22.9 Harris % (Auto) 8.9 Eos % (Auto) 3.2 Baso % (Auto) 0.6 Lymph # (Auto) 2.9 Harris # (Auto) 1.1 Eos # (Auto) 0.4 Baso # (Auto) 0.1 Abs Immat Gran (auto) 0.06 H Absolute Neuts (auto) 8.0 Absolute Nucleated RBC 0.000 Nucleated RBC % (auto) 0.0 Sodium 137 Potassium 3.7 Chloride 107 Carbon Dioxide 21 L Anion Gap 13 BUN 36 H Creatinine 2.14 H Estim Creat Clear Calc 48.8 Estimated GFR 23 POC Glucose 228 H Random Glucose 344 H Calcium 7.1 L Total Bilirubin Direct Bilirubin AST ALT Alkaline Phosphatase Total Protein Albumin Lipase Urine Color Urine Appearance Urine pH Ur Specific [place]ell Urine Protein Urine Glucose (UA) Urine Ketones Urine Blood Urine Nitrite Ur Leukocyte Esterase Urine RBC Urine WBC Urine WBC Clumps Ur Squamous Epith Cells Amorphous Sediment Urine Bacteria Hyaline Casts Waxy Casts Urine Yeast Ur Oval Fat Bodies Coronavirus (PCR) Influenza Type A (PCR) Influenza Type B (PCR) RSV RNA Qual (PCR) 07/31/20 08/01/20 08/01/20 20:14 06:09 06:09 WBC 10.3 RBC 3.63 L Hgb 10.9 L Hct 32.9 L MCV 90.6 MCH 30.0 MCHC 33.1 RDW 13.8 Plt Count 287 MPV 10.2 Immature Gran % (Auto) Neut % (Auto) Lymph % (Auto) Harris % (Auto) Eos % (Auto) Baso % (Auto) Lymph # (Auto) Harris # (Auto) Eos # (Auto) Baso # (Auto) Abs Immat Gran (auto) Absolute Neuts (auto) Absolute Nucleated RBC 0.000 Nucleated RBC % (auto) 0.0 Sodium 137 Potassium 3.5 Chloride 108 Carbon Dioxide 23 Anion Gap 10 L BUN 31 H Creatinine 1.90 H Estim Creat Clear Calc 55.0 Estimated GFR 27 POC Glucose 204 H Random Glucose 244 H Calcium 7.2 L Total Bilirubin Direct Bilirubin AST ALT Alkaline Phosphatase Total Protein Albumin Lipase Urine Color Urine Appearance Urine pH Ur Specific [place] Urine Protein Urine Glucose (UA) Urine Ketones Urine Blood Urine Nitrite Ur Leukocyte Esterase Urine RBC Urine WBC Urine WBC Clumps Ur Squamous Epith Cells Amorphous Sediment Urine Bacteria Hyaline Casts Waxy Casts Urine Yeast Ur Oval Fat Bodies Coronavirus (PCR) Influenza Type A (PCR) Influenza Type B (PCR) RSV RNA Qual (PCR) 08/01/20 08/01/20 08:06 11:40 WBC RBC Hgb Hct MCV MCH MCHC RDW Plt Count MPV Immature Gran % (Auto) Neut % (Auto) Lymph % (Auto) Harris % (Auto) Eos % (Auto) Baso % (Auto) Lymph # (Auto) Harris # (Auto) Eos # (Auto) Baso # (Auto) Abs Immat Gran (auto) Absolute Neuts (auto) Absolute Nucleated RBC Nucleated RBC % (auto) Sodium Potassium Chloride Carbon Dioxide Anion Gap BUN Creatinine Estim Creat Clear Calc Estimated GFR POC Glucose 219 H 188 H Random Glucose Calcium Total Bilirubin Direct Bilirubin AST ALT Alkaline Phosphatase Total Protein Albumin Lipase Urine Color Urine Appearance Urine pH Ur Specific [place] Urine Protein Urine Glucose (UA) Urine Ketones Urine Blood Urine Nitrite Ur Leukocyte Esterase Urine RBC Urine WBC Urine WBC Clumps Ur Squamous Epith Cells Amorphous Sediment Urine Bacteria Hyaline Casts Waxy Casts Urine Yeast Ur Oval Fat Bodies Coronavirus (PCR) Influenza Type A (PCR) Influenza Type B (PCR) RSV RNA Qual (PCR) Airway Mallampati Class: II TM Dist: >3cm Neck ROM: Full Loose/Missing/Broken Teeth: No Heart: rrr Lungs: nl Assessment and Plan Assessment Anesthesia Assessment: Anesthesia Plan Discussed and Chart Reviewed Final Anesthetic Review NPO: Yes ASA Class: III Final Preanesthetic Review: No Changes in Pt Med Stat, Meds/Allgs Chart Reviewed, Consent Obtained/Reviewed and Anes Risks/Benef Reviewed Procedure Risk: Low Anesthetic Plan Anesthetic Plan: GA Disposition: Standard PACU and Inp. Admit - Standard Bed
--- NOTE | 2020-08-01 14:52 | MHC.SHP ---
Pre-Procedural Eval Section A The patient is an INPATIENT: Yes The History & Physical has been completed within 30 days and I have reviewed it.: Yes Section B Chief Complaint: nausea/vomiting Allergies: Allergies Allergy/AdvReac Type Severity Reaction Status Date / Time metformin [METFORMIN] Allergy Severe HIVES Verified 07/31/20 00:09 canagliflozin [From Invokana] Allergy Hives Verified 07/31/20 06:50 Plan Diagnosis/Plan: Unchanged Patient has been examined and remains a candidate for the planned procedure
--- NOTE | 2020-08-01 15:34 | PM.OP ---
Brief Operative Note Date of Service: 08/01/20 Pre-op diagnosis: nausea, vomiting, epigastric pain Post-op diagnosis: same Procedure: see op note Surgeon: Jayshree Spencer MD Anesthesia: MAC Estimated blood loss (mL): 0 Condition: stable Disposition: PACU
--- NOTE | 2020-08-01 15:34 | W.PM.OPN ---
Operative Note Operative Note Date of Service: 08/01/20 Narrative: Procedure Description: EGD FLEXIBLE TRANSORAL UPPER GASTROINTESTINAL ENDOSCOPY UPPER ENDOSCOPY Consent: Indications for the procedure and potential complications of bleeding, perforation, reaction to medications and missed diagnosis were discussed with the patient and informed consent was obtained. Instrument: Olympus GIF H 190 J mid size upper endoscope Monitoring: Vital signs and clinical assessment, continuous EKG monitoring, Pulse oximetry, Carbon Dioxide monitoring and blood pressure monitoring were done throughout the procedure. Procedure: The patient was placed in the left lateral decubitis position and pre-procedure medications were administered and a bite block was placed. The endoscope was inserted into the mouth and advanced under direct vision to the third part of duodenum. A careful inspection was made as the upper endoscope was withdrawn including a retroflexed examination of the proximal stomach; Findings and interventions are described below. Findings: Larynx:normal Esophagus: GE junction at 40 cm, diaphragm hiatus at 40 cm, LA grade A esophagitis Stomach: Patchy gastric erythema with scarring consistent with atrophic gastritis. Biopsies were obtained. Grade 3 flap valve on retroflexed examination of the cardia, lax LES. There was paucity of gastric movement. Duodenum: Moderate severe erosive duodenitis, bx taken Intervention: Biopsies as noted above Impression/Findings: esophagitis erosive duodenitis atrophic gastritis possible gastroparesis PLAN: if h pylori pos then treat check nsaid hx PPI BID e.g pantoprazole 40 mg bid, can carafate for breakthru gastric emptying study
[2020-08-01] MEDS: Albuterol Sulfate 90 MCG 8 GM INHALER 2 PUFF INHALE (16:11)
[2020-08-01] MEDS: 0.9 % Sodium Chloride Flush 3 ML SYRINGE IVFLUSH ×2 (16:29→22:02)
[2020-08-01 16:42] LABS: Glucose, Whole Blood 179 mg/dL (60-115)
[2020-08-01] MEDS: Omeprazole 20 MG CAPSULE.DR 40 MG PO (18:23)
[2020-08-01 21:06] LABS: Glucose, Whole Blood 275 mg/dL (60-115)
[2020-08-01] MEDS: Atorvastatin Calcium 10 MG TABLET PO (22:00)
[2020-08-01] MEDS: rOPINIRole HCL 0.5 MG TABLET PO (22:01)
[2020-08-01] MEDS: Heparin Sodium,Porcine 5,000 UNIT/ML VIAL 5000 UNIT SUBCUT (22:01)
[2020-08-02] MEDS: Heparin Sodium,Porcine 5,000 UNIT/ML VIAL 5000 UNIT SUBCUT ×3 (05:59→21:06)
[2020-08-02 07:49] LABS: Glucose, Whole Blood 203 mg/dL (60-115)
--- NOTE | 2020-08-02 08:00 | NM_ITS ---
EXAMINATION: RADIONUCLIDE SOLID FOOD GASTRIC EMPTYING 4-HOUR STUDY CLINICAL INFORMATION: Nausea and vomiting. COMPARISON: No previous gastric emptying study is available for comparison. TECHNIQUE: A standard meal consisting of 4 oz of Egg Beaters brand tagged with 960 microcuries Tc-99m Sulfur Colloid, 8 oz water and 2 slices of toast with jelly was administered orally to the patient. Images were obtained using a dual head gamma camera in the anterior and posterior projections over of the stomach immediately post ingestion and at hourly intervals up to 3 hours post ingestion. Images were not obtained at 4 hours due to the minimal retention at 3 hours. The anterior and posterior counts at each time interval were averaged using the geometric mean and expressed as percentage of the immediate post ingestion counts. FINDINGS: There is good visualization of activity in the stomach immediately post ingestion. As the study progresses, there is good clearance of activity from the stomach and visualization of progressively increasing small bowel activity. By the end of the study, there is almost no retention noted in the stomach. Retention in the stomach at each time interval was: 1 hour 55% (normal 37%-90%) 2 hours 27% (normal 30%-60%) 3 hours 7% 4 hours (Not Obtained) (normal 0%-10%) NM/NM gastric emptying study IMPRESSION: Normal solid food gastric emptying study.
--- NOTE | 2020-08-02 09:25 | HO.POSTANES ---
Post Anesthesia Evaluation Post Anesthesia Evaluation Vital Signs: Vital Signs Temp Pulse Resp BP Pulse Ox 08/01/20 23:17 98.1 F 77 18 147/63 H 97 Anesthesia: General Endotracheal-GETA Mental Status: Awake Pain Control: Satisfactory Nausea/Vomiting: None Hydration: Adequate Anesthesia-Related Issues: No Anes. Related Issues
[2020-08-02 13:21] VITALS: BP 137/74; PULSE 70; RESP 18; TEMP 36.1; O2SAT 100
[2020-08-02 13:29] LABS: Glucose, Whole Blood 297 mg/dL (60-115)
[2020-08-02] MEDS: amLODIPine Besylate 5 MG TABLET PO (14:24)
[2020-08-02] MEDS: Insulin Lispro 100 UNIT/ML 3 ML VIAL SUBCUT ×3 (14:25→21:06)
[2020-08-02 16:00] VITALS: BP 121/55; PULSE 71; RESP 18; TEMP 35.9; O2SAT 97
[2020-08-02 16:23] LABS: Glucose, Whole Blood 234 mg/dL (60-115)
[2020-08-02] MEDS: 0.9 % Sodium Chloride Flush 3 ML SYRINGE IVFLUSH ×2 (16:45→21:08)
[2020-08-02] MEDS: Omeprazole 20 MG CAPSULE.DR 40 MG PO (16:45)
--- NOTE | 2020-08-02 17:13 | HO.PM.IMPN ---
Subjective Subjective Date of Service: 08/02/20 Interval History: seen and examined this afternoon post gastric emptying studying nausea/pain minimal wants to eat General - no fevers or chills Cardiovascular - no chest pain Respiratory - no shortness of breath or cough Abdominal- no abdominal pain, nausea, vomiting, diarrhea Physical Exam Vital Signs: Vital Signs: Last Vital Signs Temp 96.9 F 08/02/20 13:21 Pulse 70 08/02/20 13:21 Resp 18 08/02/20 13:21 BP 137/74 08/02/20 13:21 Pulse Ox 100 08/02/20 13:21 Body Mass Index 66.4 Const: Other: General - no acute distress, appears comfortable Cardiovascular - regular rate and rhythm, S1-S2 Lungs - normal respiratory effort, clear to auscultation bilaterally, no wheezing Abdomen - soft, nontender, no rebound or guarding Extremities - no edema bilaterally Neuro - awake and alert, no focal deficits Objective Data Current Medications Generic Name Dose Route Start Last Admin Trade Name Freq PRN Reason Stop Dose Admin Acetaminophen 650 mg 08/01/20 16:08 Acetaminophen 325 Mg Tablet PO ONCE PRN Pain, Mild (Pain Scale 1-3) Albuterol Sulfate 2 puff 08/01/20 16:08 08/01/20 16:11 Albuterol Sulfate 90 Mcg 8 Gm Inhaler INHALE 2 puff RQ4H PRN Administration Wheezing Amlodipine Besylate 5 mg 07/31/20 09:00 08/02/20 14:24 Amlodipine Besylate 5 Mg Tablet PO 5 mg DAILY KENTRELL Administration Protocol Atorvastatin Calcium 10 mg 07/31/20 21:00 08/01/20 22:00 Atorvastatin Calcium 10 Mg Tablet PO 10 mg BEDTIME KENTRELL Administration Heparin Sodium (Porcine) 5,000 unit 07/31/20 14:00 08/02/20 14:24 Heparin Sodium,Porcine 5,000 Unit/Ml Vial SUBCUT 5,000 unit Q8H KENTRELL Administration Insulin Human Lispro 0 unit 08/01/20 07:30 08/02/20 16:46 Insulin Lispro 100 Unit/Ml 3 Ml Vial SUBCUT 4 unit QIDACHS KENTRELL Administration Protocol Levothyroxine Sodium 25 mcg 07/31/20 09:00 08/02/20 13:13 Levothyroxine Sodium 25 Mcg Tablet PO Not Given DAILY [facility] Omeprazole 40 mg 08/01/20 18:15 08/02/20 16:45 Omeprazole 20 Mg Capsule. PO 40 mg BID@[id number] [facility] Administration Pharmacy Consult 1 each 07/31/20 02:51 Consult Rx Perform Med Rec MISCELLANE ONCE PRN Consult order Ropinirole HCl 0.5 mg 07/31/20 21:00 08/01/20 22:01 Ropinirole Hcl 0.5 Mg Tablet PO 0.5 mg BEDTIME KENTRELL Administration Sodium Chloride 3 ml 07/31/20 13:27 08/02/20 16:45 0.9 % Sodium Chloride Flush 3 Ml Syringe IVFLUSH 3 ml QSHIFT [facility] Administration Labs CBC & Chem 7: 08/01/20 06:09 08/01/20 06:09 Microbiology Microbiology Results: Microbiology 07/31/20 Unknown Urine clean catch - Catheterized Urine Culture - Final No growth. Assessment and Plan (1) Diabetes mellitus with gastroparesis: Status: Acute Assessment and Plan: This is a 60 yo F with morbid Obesity, JULIUS noncompliant with CPAP, uncontrolled and longstanding diabetes who presents to the hospital with complaints of intractable nausea and vomiting. She is admitted for further work up. 1. Intractable n/v with pain due esophagitis,gastritis,duodenitis gastric emptying studies negative high dose PPI advance diet 2. RASHEEDA on CKD stage 4 SCr to near baseline 3. JULIUS non complaint with cpap at home, so she tells me her insurance took it away encouraged her to f/u with pulmonary and repeat sleep study 4. morbid obesity weight loss 5. Hypothyroid synthroid Full Code DVT pptx, heparin dispo: home tomorrow if tolerating diet
[2020-08-02 20:43] LABS: Glucose, Whole Blood 216 mg/dL (60-115)
[2020-08-02] MEDS: Atorvastatin Calcium 10 MG TABLET PO (21:07)
[2020-08-02] MEDS: rOPINIRole HCL 0.5 MG TABLET PO (21:07)
[2020-08-02 23:42] VITALS: BP 149/63; PULSE 71; RESP 18; TEMP 36.1; O2SAT 99
[2020-08-03] MEDS: Acetaminophen 325 MG TABLET 650 MG PO (03:07)
[2020-08-03] MEDS: Heparin Sodium,Porcine 5,000 UNIT/ML VIAL 5000 UNIT SUBCUT (05:01)
[2020-08-03] MEDS: Omeprazole 20 MG CAPSULE.DR 40 MG PO (05:04)
[2020-08-03 08:25] VITALS: BP 166/65; PULSE 75
[2020-08-03] MEDS: amLODIPine Besylate 5 MG TABLET PO (08:25)
[2020-08-03] MEDS: Insulin Lispro 100 UNIT/ML 3 ML VIAL SUBCUT ×2 (08:25→11:57)
[2020-08-03] MEDS: 0.9 % Sodium Chloride Flush 3 ML SYRINGE IVFLUSH (08:25)
[2020-08-03] MEDS: Levothyroxine Sodium 25 MCG TABLET PO (08:26)
[2020-08-03 08:28] VITALS: BP 166/65; PULSE 75; RESP 19; TEMP 36.6; O2SAT 96
--- NOTE | 2020-08-03 10:22 | MHC.CM.PN ---
PATIENT IS DISCHARGED HOME WITH [facility] TO PROVIDE TRANSPORT HOME.
--- NOTE | 2020-08-03 11:05 | PM.DS ---
DS: Providers Provider Date of admission: 07/31/20 07:05 Primary care physician: Unknown Physician Consults: 07/31/20 13:27 Consult to Gastroenterology Routine Consulting Provider: [facility] [place] Gastroenterology Services Reason for consultation: Intractable Nausea/Vomiting Has provider been notified: No Consult to Nephrology Routine Consulting Provider: [facility] Reason for consultation: RASHEEDA on CKD Has provider been notified: No 07/31/20 13:56 Consult Respiratory Therapy Routine Reason for consultation: sleep apnea DS: Diagnosis Discharge Diagnosis (1) Esophagitis: Status: Acute (2) Intractable nausea and vomiting: Status: Acute (3) Acute kidney injury superimposed on CKD: Status: Acute (4) Diabetes mellitus: Status: Acute DS: Medications Discharge Medications Home Medications: Home Medications Medication Instructions Recorded Confirmed albuterol sulfate 2 puff INHALATION Q4H PRN 07/31/20 07/31/20 amlodipine 1 tab PO DAILY 07/31/20 07/31/20 blood-glucose meter [Accu-Chek 07/31/20 07/31/20 Berna Plus Meter] bumetanide 1 tab PO BID 07/31/20 07/31/20 calcifediol [Rayaldee] 1 cap PO DAILY 07/31/20 07/31/20 dulaglutide [Trulicity] mg SUBCUT QWEEK 07/31/20 insulin regular hum U-500 conc 30 unit SUBCUT TID 07/31/20 07/31/20 [Humulin R U-500 (Conc) Insulin] insulin syringe-needle U-100 07/31/20 07/31/20 [UltiCare] lancets [FreeStyle Lancets] 07/31/20 07/31/20 levothyroxine 1 tab PO DAILY 07/31/20 07/31/20 losartan 1 tab PO DAILY 07/31/20 07/31/20 losartan 1 tab PO DAILY 07/31/20 07/31/20 nitrofurantoin monohyd/m-cryst 1 cap PO Q12H 07/31/20 07/31/20 ondansetron HCl 1 tab PO TID 07/31/20 07/31/20 ropinirole 1 tab PO BEDTIME 07/31/20 07/31/20 simvastatin 1 tab PO BEDTIME 07/31/20 07/31/20 torsemide 1 tab PO BID 07/31/20 07/31/20 tramadol 1 tab PO DAILY 07/31/20 07/31/20 DS: Summary Hospital Course Hospital Course: Patient was started on intravenous fluids, anti-emetics and pain medications. she underwent endoscopy which showed esophagitis, gastritis and duodenitis. She was started on high-dose PPI b.i.d.. She was subsequently evaluated for diabetic gastroparesis with a gastric emptying study which was read as normal. With PPI alone she was able to tolerate solids. She will be discharged home with high-dose PPI and is to follow-up with GI in 1-2 months or sooner if needed. Patient also was noted to have acute kidney injury on chronic kidney disease. Her diuretics and arbs were held. She was hydrated and her kidney function returned towards baseline. Her arb/diuretics will be restarted upon d/c and she is to have blood work completed next week. 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 Time Spent with Patient Time attestation: Total time spent providing and/or coordinating discharge services: Physical Exam Vital Signs: Vital Signs: Last Vital Signs Temp 97.9 F 08/03/20 08:28 Pulse 75 08/03/20 08:28 Resp 19 08/03/20 08:28 BP 166/65 H 08/03/20 08:28 Pulse Ox 96 08/03/20 08:28 Body Mass Index 66.4 Const: Other: General - no acute distress, appears comfortable Cardiovascular - regular rate and rhythm, S1-S2 Lungs - normal respiratory effort, clear to auscultation bilaterally, no wheezing Abdomen - soft, nontender, no rebound or guarding Extremities - no edema bilaterally Neuro - awake and alert, no focal deficits DS: Data Data Completed and Pending Pending studies at discharge: Pending at discharge 08/01/20 15:28 Surgical [PTH] Routine Labs on day of discharge: Laboratory Last Values WBC 10.3 X10*3/uL (4.8-10.8) 08/01/20 06:09 RBC 3.63 X10*6/uL (4.20-5.50) L 08/01/20 06:09 Hgb 10.9 g/dl (12.0-16.0) L 08/01/20 06:09 Hct 32.9 % (37-47) L 08/01/20 06:09 MCV 90.6 fL (80-98) 08/01/20 06:09 MCH 30.0 pg (27.0-33.0) 08/01/20 06:09 MCHC 33.1 g/dl (31.0-35.0) 08/01/20 06:09 RDW 13.8 % (11.0-16.0) 08/01/20 06:09 Plt Count 287 X10*3/uL (160-400) 08/01/20 06:09 MPV 10.2 fL (9.4-12.3) 08/01/20 06:09 Immature Gran % (Auto) 0.5 % (0.0-0.4) H 07/31/20 13:38 Neut % (Auto) 63.9 % (45-73) 07/31/20 13:38 Lymph % (Auto) 22.9 % (20-40) 07/31/20 13:38 [place] % (Auto) 8.9 % (2-11) 07/31/20 13:38 Eos % (Auto) 3.2 % (0-4) 07/31/20 13:38 Baso % (Auto) 0.6 % (0-2) 07/31/20 13:38 Lymph # (Auto) 2.9 X10*3/uL (1.2-4.9) 07/31/20 13:38 [place] # (Auto) 1.1 X10*3/uL (0.1-1.2) 07/31/20 13:38 Eos # (Auto) 0.4 X10*3/uL (0.0-0.4) 07/31/20 13:38 Baso # (Auto) 0.1 X10*3/uL (0.0-0.2) 07/31/20 13:38 Abs Immat Gran (auto) 0.06 X10*3/uL (0.00-0.03) H 07/31/20 13:38 Absolute Neuts (auto) 8.0 X10*3/uL (2.0-8.3) 07/31/20 13:38 Absolute Nucleated RBC 0.000 X10*3/uL (0.0-0.012) 08/01/20 06:09 Nucleated RBC % (auto) 0.0 /100WBC (0.0-0.2) 08/01/20 06:09 Sodium 137 mmol/L (135-145) 08/01/20 06:09 Potassium 3.5 mmol/l (3.3-5.1) 08/01/20 06:09 Chloride 108 mmol/L (96-108) 08/01/20 06:09 Carbon Dioxide 23 mmol/L (22-29) 08/01/20 06:09 Anion Gap 10 (12-20) L 08/01/20 06:09 BUN 31 mg/dL (9-16) H 08/01/20 06:09 Creatinine 1.90 mg/dL (0.5-1.4) H 08/01/20 06:09 Estim Creat Clear Calc 55.0 08/01/20 06:09 Estimated GFR 27 08/01/20 06:09 POC Glucose 216 mg/dL (60-115) H 08/02/20 20:35 Random Glucose 244 mg/dL (60-115) H 08/01/20 06:09 Calcium 7.2 mg/dL (8.4-10.2) L 08/01/20 06:09 Total Bilirubin 0.3 mg/dL (0.0-1.0) 07/31/20 01:23 Direct Bilirubin 0.2 mg/dL (0.0-0.5) 07/31/20 01:23 AST 13 U/L (5-31) 07/31/20 01:23 ALT 11 U/L (0-31) 07/31/20 01:23 Alkaline Phosphatase 111 U/L (39-117) 07/31/20 01:23 Total Protein 4.5 g/dL (6.5-8.0) L 07/31/20 01:23 Albumin 1.9 g/dL (3.5-5.0) L 07/31/20 01:23 Lipase 26 U/L (8-78) 07/31/20 01:23 Urine Color STRAW 07/31/20 03:45 Urine Appearance CLEAR 07/31/20 03:45 Urine pH 6.0 (5.0-8.0) 07/31/20 03:45 Ur Specific [place] 1.015 (1.005-1.025) 07/31/20 03:45 Urine Protein 3+ MG/DL (NEG-TRACE) H 07/31/20 03:45 Urine Glucose (UA) >=1000 MG/DL (NEG) H 07/31/20 03:45 Urine Ketones NEG MG/DL (NEG) 07/31/20 03:45 Urine Blood 3+ (NEG) H 07/31/20 03:45 Urine Nitrite NEG (NEG) 07/31/20 03:45 Ur Leukocyte Esterase NEG (NEG) 07/31/20 03:45 Urine RBC 15-29 /HPF (0) H 07/31/20 03:45 Urine WBC 10-14 /HPF (0-4) H 07/31/20 03:45 Urine WBC Clumps NOTED 07/31/20 03:45 Ur Squamous Epith Cells TRACE /LPF 07/31/20 03:45 Amorphous Sediment 1+ /LPF 07/31/20 03:45 Urine Bacteria TRACE /LPF 07/31/20 03:45 Hyaline Casts 0-2 /LPF 07/31/20 03:45 Waxy Casts 0-2 /LPF 07/31/20 03:45 Urine Yeast TRACE /HPF 07/31/20 03:45 Ur Oval Fat Bodies NOTED (NONE) 07/31/20 03:45 Coronavirus (PCR) NEGATIVE (Negative) 07/31/20 01:23 Influenza Type A (PCR) NEGATIVE (Negative) 07/31/20 01:23 Influenza Type B (PCR) NEGATIVE (Negative) 07/31/20 01:23 RSV RNA Qual (PCR) NEGATIVE (Negative) 07/31/20 01:23 Discharge Plan Discharge Patient Disposition: Home Health Service Referrals: Jimena Nobles [Outside] (DISCHARGED HOME WITH [facility] FOR [facility] AND PHYSICAL THERAPY) Tony Dejesus MD [Physician] - (to be seen in next 1-2 weeks) Jayshree Spencer MD [Physician] - (call office for f/u) Physician,Unknown [Primary Care Provider] - Discharge Medications: New omeprazole 20 mg Capsule,Delayed Release(Dr/Ec) 40 mg PO BID@0630,1630 Qty: 120 RF: 0 Continued ondansetron HCl 8 mg tablet 1 tab PO TID RF: 0 amlodipine 5 mg tablet 1 tab PO DAILY RF: 0 tramadol 50 mg tablet 1 tab PO DAILY RF: 0 Humulin R U-500 (Conc) Insulin 500 unit/mL solution 30 unit subcut TID RF: 0 levothyroxine 25 mcg tablet 1 tab PO DAILY RF: 0 torsemide 100 mg tablet 1 tab PO BID RF: 0 ropinirole 0.5 mg tablet 1 tab PO BEDTIME RF: 0 albuterol sulfate 90 mcg/actuation HFA aerosol inhaler 2 puff inhalation Q4H PRN (Reason: Shortness Of Breath Or Wheezing) RF: 0 losartan 100 mg tablet 1 tab PO DAILY RF: 0 Trulicity 1.5 mg/0.5 mL pen injector subcut QWEEK RF: 0 Rayaldee 30 mcg capsule,extended release 24 hr 1 cap PO DAILY RF: 0 Discontinued simvastatin 20 mg tablet 1 tab PO BEDTIME RF: 0 losartan 25 mg tablet 1 tab PO DAILY RF: 0 bumetanide 1 mg tablet 1 tab PO BID RF: 0 nitrofurantoin monohyd/m-cryst 100 mg capsule 1 cap PO Q12H RF: 0 No Action (DME) blood-glucose meter [Accu-Chek Berna Plus Meter] Misc MISCELLANEOUS 5XD RF: 0 (DME) insulin syringe-needle U-100 [UltiCare] 1 mL 30 gauge x 1/2 syringe MISCELLANEOUS 5XD RF: 0 (DME) lancets [FreeStyle Lancets] 28 gauge misc topical 5XD RF: 0 Discharge Orders: Discharge Order (Routine); Ordered 08/03/20 Ordered By: Stevie Hernandez Diet: advance to usual diet Activity on Discharge: As tolerated Other Ambulatory Orders: Basic Metabolic Panel (Routine) Timeframe: [id number] Facility: [facility] - Location: Laboratory Ordered By: Stevie Hernandez Visit Report Forms: Patient Portal Discharge page Care Plan Goals: To stay healthy and out of the hospital. Health Concerns: Esophagitits / Duodenitis / Gastritis Rasheeda Plan of Treatment: Esophagitits / Duodenitis / Gastritis - Take Prilosec 40mg BID Rasheeda - improved, follow up with kidney doctors
[2020-08-03 11:45] LABS: Glucose, Whole Blood 289 mg/dL (60-115)
--- NOTE | 2020-08-03 12:11 | W.MHC.F2F ---
Service Date Service Date: 08/03/20 Encounter Date of encounter: 08/03/20 Reasons for Services Reason for longterm: diabetic teaching and medication management Reason for physical therapy: home safety and mobility and gait/transfer training Overseeing Care: Evie Barfield Homebound: Leaving the home is medically contraindicated at this time without the asist of a device and/or another person due th the listed conditions above and below. Certification: Based on the above findings, I certify that this patient is confined to the home and needs intermittent longterm care, physical therapy and/or speech therapy, or continues to need occupational therapy. The patient is under my care, and I have initiated the establishment of the plan of care. The patient will be followed by a physician who will periodically review the plan of care.
[2020-08-03 12:17] VITALS: BP 166/72; PULSE 74; RESP 20; TEMP 36.1; O2SAT 96
--- NOTE | 2020-08-03 13:32 | MHC.CM.PN ---
POST DC NOTE- PATIENT RETURNED HOME WITH NEW FELDMAN. NILESH VALDOVINOS IS UNABLE TO PERFORM VOIDING TRIAL (NO BLADDER SCANNER) NILE[facility] IS ABLE TO DC FELDMAN WHEN NEEDED HOSPITALIST MADE AWARE. OUTPATIENT REFERRAL MADE TO UROLOGY.
--- NOTE | 2020-08-05 15:33 | MHC.CM.PN ---
POST DISCHARGE NOTE CALL TO UROLOGY @ [id number]. THIS HAND EDGE BANDER SPOKE WITH SINTIA, WHO WILL CONTACT THE PATIENT ABOUT A VOIDING TRIAL APPOINTMENT SINTIA HAS TWO CONTACT NUMBERS FOR PATIENT.
--- NOTE | 2020-08-05 16:02 | MHC.CM.PN ---
3RD POST DISCHARGE NOTE. UROLOGY CARBON SETTER SINTIA CONTACTED NILESH VALDOVINOS, WHO IS GOING TO PATIENT'S HOME TO DC THE FELDMAN. SINTIA HAS BEEN INFORMED THAT IF SHE IS UNABLE TO VOID WITHIN 4-5 HOURS, TO COME TO THE EMERGENCY DEPT. PATIENT HAS HAS INFORMATION NEEDED FOR FOLLOW UP APPOINTMENT WITH DR GREGORY.
[2020-08-07 08:29] LABS: Glucose, Whole Blood 244 mg/dL (60-115)
== END 2020-08-03 13:20 | disposition home health service (06) | DRG 392 ==
LOC: HO.ED 07-31 02:50 → HO.S3 07-31 11:56
PROVIDERS: Internal Medicine Gastroenterology; Admitting Provider Internal Medicine; Emergency Provider Emergency Medicine Emergency Medical Services; Visit Provider Family Medicine
PROC: 0DJ08ZZ Inspection of Upper Intestinal Tract, Via Natural or Artificial Opening Endoscopic (ICD-10-PCS; CPT 43235; principal; 2020-08-01 13:50)
DX: K29.70 Gastritis, unspecified, without bleeding (principal); N18.4 Chronic kidney disease, stage 4 (severe); Z68.44 Body mass index [BMI] 60.0-69.9, adult; N17.9 Acute kidney failure, unspecified; R10.9 Unspecified abdominal pain; E03.9 Hypothyroidism, unspecified; E11.65 Type 2 diabetes mellitus with hyperglycemia; E66.01 Morbid (severe) obesity due to excess calories; R33.9 Retention of urine, unspecified; K20.90 Esophagitis, unspecified without bleeding; K29.80 Duodenitis without bleeding; I12.9 Hypertensive chronic kidney disease with stage 1 through stage 4 chronic kidney disease, or unspecified chronic kidney disease; E11.22 Type 2 diabetes mellitus with diabetic chronic kidney disease; Z79.4 Long term (current) use of insulin; Z79.890 Hormone replacement therapy; Z79.899 Other long term (current) drug therapy
CPT/HCPCS: 0241U; 36415; 78264; 80048; 80076; 81001; 82947; 83690; 85025; 85027; 87086; 88305; 88342; 96361; 96365; 96375; 99233; 99285; A9541; J0330; J2765

== ENCOUNTER → 2020-08-20 11:25 | Outpatient (BNVA) | payer MEDICARE, MEDICAID, SELFPAY | PROVIDERS: Visit Provider Urology | DX: R33.9 Retention of urine, unspecified (principal); N32.0 Bladder-neck obstruction; R39.14 Feeling of incomplete bladder emptying; N31.8 Other neuromuscular dysfunction of bladder; E11.9 Type 2 diabetes mellitus without complications | CPT/HCPCS: Q3014 ==

== ENCOUNTER 2020-10-09 02:48 | Emergency (ER) | payer MEDICARE, MEDICAID, SELFPAY ==
[2020-10-09] VITALS (8 sets, daily range): BP systolic 100–164; BP diastolic 57–77; PULSE 64–84; RESP 16–18; TEMP 36.7–37.4; O2SAT 96–98; BMI 72.3
--- NOTE | ~2020-10-09 | CT_ITS ---
EXAMINATION: CT ABDOMEN AND PELVIS WITHOUT CONTRAST CLINICAL INFORMATION: Lower abdominal pain. COMPARISON: July 03, 2020. TECHNIQUE: Contiguous axial thin section helical images of the abdomen and pelvis were performed without oral or IV contrast. The data set was reformatted in the coronal and sagittal planes and reviewed on an independent workstation. DLP: 2013 mGy-cm. FINDINGS: The visualized lung bases are clear. The visualized portions of the heart are unremarkable. There is free fluid overlying the right lobe of the liver extending to the right paracolic gutter The liver is of normal size and attenuation without focal lesions nor intrahepatic biliary ductal dilation. A normal gallbladder is identified. There is no wall thickening or discernible pericholecystic fluid. The spleen, pancreas, adrenal glands are unremarkable. Both kidneys are of normal size and attenuation without hydronephrosis. There are punctate nonobstructive renal calculi present within the right kidney. There is neither mesenteric nor retroperitoneal lymphadenopathy. Normal unopacified loops of small and large bowel are identified. There is a moderate amount of pelvic free fluid. A urinary catheter is in place. The urinary bladder is otherwise unremarkable. There is neither pelvic nor inguinal lymphadenopathy. Bone windows: Neither sclerotic nor lytic bone lesions are identified. CT/CT abdomen pelvis wo con IMPRESSION: Small amount of abdominal and moderate amount of pelvic free fluid. Nonobstructive right renal calculi. No hydronephrosis. Automated exposure control (Care Dose) Adjustment of the mA and/or kv according to patient size (this includes techniques or standardized protocols for targeted exams where dose is matched to indication / reason for exam; i.e. extremities or head).
--- NOTE | 2020-10-09 02:51 | ED.NAVMDI ---
HPI - Nausea/Vomiting/Diarrhea General Chief complaint: Nausea/Vomiting/Diarrhea Stated complaint: flu like symptoms Time Seen by Provider: 10/09/20 02:51 Source: patient, EMS, old records reviewed and health care assistant Mode of arrival: EMS Limitations: no limitations History of Present Illness HPI Narrative: 60 yo female with obesity, CKD, urinary incontinence, IBS, HTN, gastritis/duodenitis, issues with n/v at this time reports chronic vomiting but worse over the past couple of days states she started to have RLQ pain as well MD elicited complaint: nausea, vomiting and abdominal pain Pertinent past history: other (chronic abdominal pain and n/v) Onset (ago): day(s) (worse over the past few days) Description of vomiting: food contents Associated nausea: Yes Associated abdominal pain: Yes Location of pain: epigastric and RLQ Radiation: diffuse Pain consistency: intermittent Severity: moderate Quality: aching Relieving factors: none Context: other (frequent exacerbations) Associated symptoms: headaches, loss of appetite, malaise, nausea/vomiting and other (dysuria/incontinence) Related Data Home Medications Medication Instructions Recorded Confirmed Humulin R U-500 (Conc) Insulin 30 unit SUBCUT TID 07/31/20 09/10/20 Rayaldee 1 cap PO DAILY 07/31/20 09/10/20 Trulicity mg SUBCUT QWEEK 07/31/20 09/10/20 amlodipine 1 tab PO DAILY 07/31/20 09/10/20 blood-glucose meter [Accu-Chek 07/31/20 09/10/20 Berna Plus Meter] insulin syringe-needle U-100 07/31/20 09/10/20 [UltiCare] lancets [FreeStyle Lancets] 07/31/20 09/10/20 levothyroxine 1 tab PO DAILY 07/31/20 09/10/20 losartan 1 tab PO DAILY 07/31/20 09/10/20 ondansetron HCl 1 tab PO TID 07/31/20 09/10/20 torsemide 1 tab PO BID 07/31/20 09/10/20 tramadol 1 tab PO DAILY 07/31/20 09/10/20 Previous Rx's Medication Instructions Recorded omeprazole 40 mg PO BID@0630,1630 #120 cap 08/03/20 albuterol sulfate 90 mcg/actuation 2 puff INHALATION Q4H PRN 30 Days 09/05/20 aerosol inhaler #8.5 g ropinirole 0.5 mg tablet 0.5 mg PO BEDTIME #90 tab 09/13/20 nitrofurantoin monohyd/m-cryst 100 mg PO BID 7 Days #14 cap 10/09/20 [Macrobid] ondansetron 4 mg PO Q8H PRN #20 tab 10/09/20 Allergies Allergy/AdvReac Type Severity Reaction Status Date / Time metformin [METFORMIN] Allergy Severe HIVES Verified 09/10/20 13:59 canagliflozin [From Invokana] Allergy Hives Verified 09/10/20 13:59 Review of Systems Review of Systems: Constitutional : No Weight loss, No Fever, No Chills ENT/Mouth : No sore throat, No Rhinorrhea Eyes: No Swelling, No Redness Cardiovascular : No Chest Pain, No SOB, NoEdema Respiratory : No Cough, No Sputum, No Wheezing Gastrointestinal : Positive Nausea, Positive Vomiting, positive Diarrhea, positive abdominal Pain, No Hematochezia, No Melena Genitourinary : pos Dysuria, pos Urinary Frequency, No Hematuria, pos Urgency Musculoskeletal : No joint pain, No Myalgias, No Joint Swelling Skin : No Skin Lesions, No rash Neuro :pos Weakness, No Numbness, No Dizziness, No Headache Psych : No Anxiety/Panic, No Depression Heme/Lymph: No Bruising, No Lymphadenopathy Endocrine : No Polyuria, No Polydipsia All other systems reviewed and are negative. Gastrointestinal: Gastrointestinal: Reports nausea PMFSH Past Medical History Attestation statement: The following information was validated with the patient. Medical History Bladder outlet obstruction CKD (chronic kidney disease) stage 4, GFR 15-29 ml/min Diabetes mellitus Diabetes mellitus with gastroparesis Esophagitis Gastritis Hypertension Intractable nausea and vomiting Surgical History History of tubal ligation Family History Family History Father Diabetes Mother Diabetes Hypertension Breast cancer Family/Other Breast cancer Uterine cancer Social History Social History Household Members: None Housing: Apartment Alcohol intake: never Smoking Status: Never smoker Advance Directives: No Advance Directives Information Provided: No service: No Current occupational status: disabled Physical Exam Vital Signs: Vital Signs: Last Vital Signs Temp 99.0 F 10/09/20 06:00 Pulse 64 10/09/20 06:00 Resp 18 10/09/20 06:00 BP 141/61 H 10/09/20 06:00 Pulse Ox 97 10/09/20 06:00 Body Mass Index 72.3 Appearance: Alert. Oriented X3. No acute distress. Eyes: Pupils equal, round and reactive to light. ENT: Pharynx normal. Neck: Normal inspection. Neck supple. CVS: Normal heart rate and rhythm. Pulses normal. Respiratory: No respiratory distress. Breath sounds normal. Abdomen: Soft and very obese, large pannus (pulls to the right) diffuse mild abdominal ttp but no rebound or guarding Skin: Skin warm and dry. Normal skin color. Normal skin turgor. Extremities: 1 to 2+ pitting edema. Dry skin changes noted on anterior shins Neuro: Oriented X 3. No motor deficit. No sensory deficit. Course Course Course Narrative: hx of ESBL + UTI will give IV dose of ertapenem it is S to macrobid CrCl today > 60 will start on macrobid if she can tolerate PO - plan to replete Mag and K, kidney function is good today discussed with radiologist - just simple free fluid, no blood, no explanation I am not sure if this is due to her large pannus on the R side I have checked and there is no sign of skin infection her H/H is stable, patient is laying flat in no respiratory distress. patient asking to eat at this time. CT scan sent to surgery given free fluid without a known source - Dr. Toro to evaluate the patient feels much better she is eating and drinking MDM - Nausea/Vomiting/Diarrhea MDM Narrative Medical decision making narrative: 60 yo female with CKD, HTN, DM, gastritis, chronic abdominal pain and n/v - reports chronic issues but worsening over past couple of days with increased pain n/v/d and feeling like she might have a UTI at this time will obtain labs, CT scan for infection, UA, IV morphine for pain and IV zofran, dispo per results and findings. Lab Data Result diagrams: 10/09/20 03:20 10/09/20 03:20 Labs: Lab Results 10/09/20 10/09/20 10/09/20 Range/Units 03:00 03:20 03:20 WBC 12.7 H (4.8-10.8) X10*3/uL RBC 4.10 L (4.20-5.50) X10*6/uL Hgb 12.5 (12.0-16.0) g/dl Hct 37.7 (37-47) % MCV 92.0 (80-98) fL MCH 30.5 (27.0-33.0) pg MCHC 33.2 (31.0-35.0) g/dl RDW 13.4 (11.0-16.0) % Plt Count 336 (160-400) X10*3/uL MPV 10.3 (9.4-12.3) fL Immature Gran % (Auto) 0.2 (0.0-0.4) % Neut % (Auto) 62.1 (45-73) % Lymph % (Auto) 27.1 (20-40) % [place] % (Auto) 6.0 (2-11) % Eos % (Auto) 3.8 (0-4) % Baso % (Auto) 0.8 (0-2) % Lymph # (Auto) 3.5 (1.2-4.9) X10*3/uL [place] # (Auto) 0.8 (0.1-1.2) X10*3/uL Eos # (Auto) 0.5 H (0.0-0.4) X10*3/uL Baso # (Auto) 0.1 (0.0-0.2) X10*3/uL Abs Immat Gran (auto) 0.03 (0.00-0.03) X10*3/uL Absolute Neuts (auto) 7.9 (2.0-8.3) X10*3/uL Absolute Nucleated RBC 0.000 (0.0-0.012) X10*3/uL Nucleated RBC % (auto) 0.0 (0.0-0.2) /100WBC PT (10.8-13.0) SEC INR (0.9-1.1) APTT (24.1-38.0) SEC Sodium 139 (135-145) mmol/L Potassium 3.1 L (3.3-5.1) mmol/L Chloride 105 (96-108) mmol/L Carbon Dioxide 26 (22-29) mmol/L Anion Gap 11 L (12-20) BUN 23 H (9-16) mg/dL Creatinine 1.56 H (0.5-1.4) mg/dL Estim Creat Clear Calc 64.4 Estimated GFR 34 POC Glucose (60-115) mg/dL Random Glucose 127 H D (60-115) mg/dL Lactic Acid (0.5-2.0) mmol/L Calcium 7.1 L (8.4-10.2) mg/dL Magnesium 1.4 L* (1.6-2.6) mg/dL Total Bilirubin 0.3 (0.0-1.0) mg/dL Direct Bilirubin 0.2 (0.0-0.5) mg/dL AST 22 D (5-31) U/L ALT 17 (0-31) U/L Alkaline Phosphatase 202 H D (39-117) U/L Total Protein 4.6 L (6.5-8.0) g/dL Albumin 1.9 L (3.5-5.0) g/dL Lipase (8-78) U/L Urine Color Urine Appearance Urine pH (5.0-8.0) Ur Specific [place] (1.005-1.025) Urine Protein (NEG-TRACE) MG/DL Urine Glucose (UA) (NEG) MG/DL Urine Ketones (NEG) MG/DL Urine Blood (NEG) Urine Nitrite (NEG) Ur Leukocyte Esterase (NEG) Urine RBC (0) /HPF Urine WBC (0-4) /HPF Ur Squamous Epith Cells /LPF Urine Bacteria /LPF Hyaline Casts /LPF Granular Casts /LPF Urine Mucus /LPF COVID-19 (SERA) Negative (Negative) COVID-19 Clin Com See Note 10/09/20 10/09/20 10/09/20 Range/Units 03:20 03:20 03:20 WBC (4.8-10.8) X10*3/uL RBC (4.20-5.50) X10*6/uL Hgb (12.0-16.0) g/dl Hct (37-47) % MCV (80-98) fL MCH (27.0-33.0) pg MCHC (31.0-35.0) g/dl RDW (11.0-16.0) % Plt Count (160-400) X10*3/uL MPV (9.4-12.3) fL Immature Gran % (Auto) (0.0-0.4) % Neut % (Auto) (45-73) % Lymph % (Auto) (20-40) % [place] % (Auto) (2-11) % Eos % (Auto) (0-4) % Baso % (Auto) (0-2) % Lymph # (Auto) (1.2-4.9) X10*3/uL [place] # (Auto) (0.1-1.2) X10*3/uL Eos # (Auto) (0.0-0.4) X10*3/uL Baso # (Auto) (0.0-0.2) X10*3/uL Abs Immat Gran (auto) (0.00-0.03) X10*3/uL Absolute Neuts (auto) (2.0-8.3) X10*3/uL Absolute Nucleated RBC (0.0-0.012) X10*3/uL Nucleated RBC % (auto) (0.0-0.2) /100WBC PT 11.1 (10.8-13.0) SEC INR 0.9 (0.9-1.1) APTT 30.1 (24.1-38.0) SEC Sodium (135-145) mmol/L Potassium (3.3-5.1) mmol/L Chloride (96-108) mmol/L Carbon Dioxide (22-29) mmol/L Anion Gap (12-20) BUN (9-16) mg/dL Creatinine (0.5-1.4) mg/dL Estim Creat Clear Calc Estimated GFR POC Glucose (60-115) mg/dL Random Glucose (60-115) mg/dL Lactic Acid 1.9 (0.5-2.0) mmol/L Calcium (8.4-10.2) mg/dL Magnesium (1.6-2.6) mg/dL Total Bilirubin (0.0-1.0) mg/dL Direct Bilirubin (0.0-0.5) mg/dL AST (5-31) U/L ALT (0-31) U/L Alkaline Phosphatase (39-117) U/L Total Protein (6.5-8.0) g/dL Albumin (3.5-5.0) g/dL Lipase 15 (8-78) U/L Urine Color Urine Appearance Urine pH (5.0-8.0) Ur Specific [place] (1.005-1.025) Urine Protein (NEG-TRACE) MG/DL Urine Glucose (UA) (NEG) MG/DL Urine Ketones (NEG) MG/DL Urine Blood (NEG) Urine Nitrite (NEG) Ur Leukocyte Esterase (NEG) Urine RBC (0) /HPF Urine WBC (0-4) /HPF Ur Squamous Epith Cells /LPF Urine Bacteria /LPF Hyaline Casts /LPF Granular Casts /LPF Urine Mucus /LPF COVID-19 (SEAR) (Negative) COVID-19 Clin Com 10/09/20 10/09/20 Range/Units 03:20 04:58 WBC (4.8-10.8) X10*3/uL RBC (4.20-5.50) X10*6/uL Hgb (12.0-16.0) g/dl Hct (37-47) % MCV (80-98) fL MCH (27.0-33.0) pg MCHC (31.0-35.0) g/dl RDW (11.0-16.0) % Plt Count (160-400) X10*3/uL MPV (9.4-12.3) fL Immature Gran % (Auto) (0.0-0.4) % Neut % (Auto) (45-73) % Lymph % (Auto) (20-40) % [place] % (Auto) (2-11) % Eos % (Auto) (0-4) % Baso % (Auto) (0-2) % Lymph # (Auto) (1.2-4.9) X10*3/uL [place] # (Auto) (0.1-1.2) X10*3/uL Eos # (Auto) (0.0-0.4) X10*3/uL Baso # (Auto) (0.0-0.2) X10*3/uL Abs Immat Gran (auto) (0.00-0.03) X10*3/uL Absolute Neuts (auto) (2.0-8.3) X10*3/uL Absolute Nucleated RBC (0.0-0.012) X10*3/uL Nucleated RBC % (auto) (0.0-0.2) /100WBC PT (10.8-13.0) SEC INR (0.9-1.1) APTT (24.1-38.0) SEC Sodium (135-145) mmol/L Potassium (3.3-5.1) mmol/L Chloride (96-108) mmol/L Carbon Dioxide (22-29) mmol/L Anion Gap (12-20) BUN (9-16) mg/dL Creatinine (0.5-1.4) mg/dL Estim Creat Clear Calc Estimated GFR POC Glucose 137 H (60-115) mg/dL Random Glucose (60-115) mg/dL Lactic Acid (0.5-2.0) mmol/L Calcium (8.4-10.2) mg/dL Magnesium (1.6-2.6) mg/dL Total Bilirubin (0.0-1.0) mg/dL Direct Bilirubin (0.0-0.5) mg/dL AST (5-31) U/L ALT (0-31) U/L Alkaline Phosphatase (39-117) U/L Total Protein (6.5-8.0) g/dL Albumin (3.5-5.0) g/dL Lipase (8-78) U/L Urine Color YELLOW Urine Appearance HAZY Urine pH 6.5 (5.0-8.0) Ur Specific [place] 1.020 (1.005-1.025) Urine Protein 3+ H (NEG-TRACE) MG/DL Urine Glucose (UA) 250 H (NEG) MG/DL Urine Ketones NEG (NEG) MG/DL Urine Blood 2+ H (NEG) Urine Nitrite NEG (NEG) Ur Leukocyte Esterase NEG (NEG) Urine RBC 1-4 (0) /HPF Urine WBC 5-9 H (0-4) /HPF Ur Squamous Epith Cells 1+ /LPF Urine Bacteria 1+ /LPF Hyaline Casts 1-4 /LPF Granular Casts 0-2 /LPF Urine Mucus 1+ /LPF COVID-19 ([facility]ERA) (Negative) COVID-19 Clin Com ECG Data Attestation: I personally reviewed and interpreted this ECG as follows: ECG interpretation date: 10/09/20 ECG interpretation time: 03:35 Interpretation: Rate: 68 Rhythm: NSR [place]: left Normal P waves. Normal MEMO. Normal QRS complex. ST T wave : nonspecific, no BRANDIE qTC: normal prior studies: no acute ischemia The study has been interpreted contemporaneously by me. . Discharge Plan Discharge Clinical Impression: Hypokalemia, Hypomagnesemia UTI (urinary tract infection) Qualifiers: Urinary tract infection type: acute cystitis Hematuria presence: without hematuria Qualified Code(s): N30.00 - Acute cystitis without hematuria Vomiting Qualifiers: Vomiting type: unspecified Vomiting Intractability: non-intractable Nausea presence: with nausea Qualified Code(s): R11.2 - Nausea with vomiting, unspecified Patient Disposition: Home, Self-Care Instructions: Urinary Tract Infection in Women (ED), Hypokalemia (ED), Hypomagnesemia (ED) Additional Instructions: return to ED for any worsening symptoms or concerns Prescriptions: New ondansetron 4 mg tablet,disintegrating 4 mg PO Q8H PRN (Reason: nausea and vomiting) Qty: 20 RF: 0 nitrofurantoin monohyd/m-cryst [Macrobid] 100 mg capsule 100 mg PO BID 7 Days Qty: 14 RF: 0 No Action albuterol sulfate 90 mcg/actuation HFA aerosol inhaler 2 puff inhalation Q4H PRN (Reason: bronchospasm) 30 Days Qty: 8.5 RF: 5 ropinirole 0.5 mg tablet 0.5 mg PO BEDTIME Qty: 90 RF: 1 (DME) blood-glucose meter [Accu-Chek Berna Plus Meter] Misc MISCELLANEOUS 5XD RF: 0 ondansetron HCl 8 mg tablet 1 tab PO TID RF: 0 amlodipine 5 mg tablet 1 tab PO DAILY RF: 0 tramadol 50 mg tablet 1 tab PO DAILY RF: 0 Humulin R U-500 (Conc) Insulin 500 unit/mL solution 30 unit subcut TID RF: 0 levothyroxine 25 mcg tablet 1 tab PO DAILY RF: 0 torsemide 100 mg tablet 1 tab PO BID RF: 0 (DME) insulin syringe-needle U-100 [UltiCare] 1 mL 30 gauge x 1/2 syringe MISCELLANEOUS 5XD RF: 0 losartan 100 mg tablet 1 tab PO DAILY RF: 0 (DME) lancets [FreeStyle Lancets] 28 gauge misc topical 5XD RF: 0 Trulicity 1.5 mg/0.5 mL pen injector subcut QWEEK RF: 0 Rayaldee 30 mcg capsule,extended release 24 hr 1 cap PO DAILY RF: 0 omeprazole 20 mg Capsule,Delayed Release(Dr/Ec) 40 mg PO BID@0630,1630 Qty: 120 RF: 0 Referrals: Physician,Unknown [Primary Care Provider] - 2 days
--- NOTE | 2020-10-09 02:53 | ECG_ITS ---
Test Reason : NAUSEA Blood Pressure : / mmHG Vent. Rate : 068 BPM Atrial Rate : 068 BPM P-R Int : 000 ms QRS Dur : 088 ms QT Int : 496 ms P-R-T Axes : 000 -34 -18 degrees QTc Int : 527 ms Normal sinus rhythm Left axis deviation Nonspecific T wave abnormality QT prolongation Abnormal ECG When compared with ECG of 18-SEP-2019 12:59, Nonspecific ST and T wave abnormality present QT has lengthened Referred By: Sia Leone Electronically Signed By:DIXIE GAITAN
--- NOTE | 2020-10-09 03:03 | PC.NURSE ---
PT TO ROOM, CHG INTO GOWN AND MD AT BEDSIDE.
[2020-10-09] MEDS: ondansetron HCL 4 MG/2 ML VIAL IVPUSH (03:23)
[2020-10-09] MEDS: Morphine Sulfate 4 MG/ML CARTRIDGE IVPUSH (03:23)
[2020-10-09 03:28] LABS: COVID-19 Test Negative (Negative); IDNOW Serial# 9DD0AD1C
[2020-10-09 03:36] LABS: MANUAL DIFF FLAG NO
[2020-10-09 03:39] LABS: Basophils Absolute Auto 0.1 X10*3/uL (0.0-0.2); Basophils Percent Auto 0.8 % (0-2); Eosinophils Absolute Auto 0.5 X10*3/uL (0.0-0.4); Eosinophils Percent Auto 3.8 % (0-4); Hematocrit 37.7 % (37-47); Hemoglobin 12.5 g/dl (12.0-16.0); Imm Gran Abs Auto 0.03 X10*3/uL (0.00-0.03); Imm Gran Pct Auto 0.2 % (0.0-0.4); Lymphocytes Absolute Auto 3.5 X10*3/uL (1.2-4.9); Lymphocytes Percent Auto 27.1 % (20-40); Mean Corpuscular HGB Conc 33.2 g/dl (31.0-35.0); Mean Corpuscular Hemoglobin 30.5 pg (27.0-33.0); Mean Platelet Volume 10.3 fL (9.4-12.3); Monocytes Absolute Auto 0.8 X10*3/uL (0.1-1.2); Neutrophils Absolute Auto 7.9 X10*3/uL (2.0-8.3); Neutrophils Percent Auto 62.1 % (45-73); Platelet Count 336 X10*3/uL (160-400); Red Cell Distribution Width 13.4 % (11.0-16.0); White Blood Count 12.7 X10*3/uL (4.8-10.8)
[2020-10-09 03:44] LABS: Glucose Urine UA 250 MG/DL (NEG); Leukocyte Esterase Urine NEG (NEG); Nitrite Urine NEG (NEG); PH 6.5 (5.0-8.0); Urine Blood 2+ (NEG); Urine Ketones NEG (NEG); Urine Protein 3+ MG/DL (NEG-TRACE)
[2020-10-09 03:45] LABS: Appearance Urine HAZY; Color Urine YELLOW
[2020-10-09 03:47] LABS: INTERNATIONAL NORM RATIO 0.9 (0.9-1.1); Prothrombin Time 11.1 SEC (10.8-13.0)
[2020-10-09 03:49] LABS: Partial Thromboplastin Time 30.1 SEC (24.1-38.0)
[2020-10-09 03:57] LABS: Bacteria Urine 1+ /LPF; Squamous Epithelial Cell Urine 1+ /LPF; UACC CULT YES
[2020-10-09 03:58] LABS: Granular Casts Urine 0-2 /LPF; Mucus Urine 1+ /LPF
[2020-10-09 03:59] LABS: Lactic Acid 1.9 mmol/L (0.5-2.0)
[2020-10-09 04:03] LABS: Lipase 15 U/L (8-78)
[2020-10-09 04:04] LABS: Alanine Aminotransferase 17 U/L (0-31); Albumin Level 1.9 g/dL (3.5-5.0); Alkaline Phosphatase 202 U/L (39-117); Anion Gap 11 (12-20); Aspartate Amino Transferase 22 U/L (5-31); Bilirubin Direct 0.2 mg/dL (0.0-0.5); Bilirubin Total 0.3 mg/dL (0.0-1.0); Blood Urea Nitrogen 23 mg/dL (9-16); Calcium 7.1 mg/dL (8.4-10.2); Carbon Dioxide 26 mmol/L (22-29); Chloride 105 mmol/L (96-108); Creatinine Clr Calc Pharmacy 64.4; Estimated Glomerular Filt Rate 34; Glucose Random 127 mg/dL (60-115); Magnesium 1.4 mg/dL (1.6-2.6); Potassium 3.1 mmol/L (3.3-5.1); Sodium 139 mmol/L (135-145); Total Protein 4.6 g/dL (6.5-8.0)
--- NOTE | 2020-10-09 04:10 | PC.NURSE ---
IV ESTABLISHED TO RAC, LABS DRAWN TO LAB. PT MEDICATED PER EMAR.
--- NOTE | 2020-10-09 04:45 | PC.NURSE ---
BLADDER SCAN OBTAINED APPROX 326 ML AND STRAIGHT CATH FOR 300ML OF CLOUDY YELLOW URINE TO LAB. WILL CONTINUE TO MONITOR PT.
[2020-10-09] MEDS: Ertapenem Sodium 1 GM in 0.9 % Sodium Chloride 50 ML IV (05:00)
--- NOTE | 2020-10-09 05:00 | PC.NURSE ---
PT DRINKING OJ AND EATING A SANDWICH. PT REMAIN ALERT, RESPIRATIONS EASY, N/L. SKIN W/D.
[2020-10-09 05:04] LABS: Glucose, Whole Blood 137 mg/dL (60-115)
[2020-10-09] MEDS: Potassium Chloride/H20 10 MEQ/100 ML PIGGYBACK 100 MEQ IV (05:28)
[2020-10-09] MEDS: Magnesium Sulfate/H2O 2 GM/50 ML PIGGYBACK IV (05:28)
[2020-10-09] MEDS: Potassium Chloride ER 20 MEQ TAB.ER.PRT PO (05:30)
--- NOTE | 2020-10-09 07:31 | PC.NURSE ---
report taken from Hannah VOSS. pt resting comfortably on stretcher. reports no pain at this time. drinking gingerale, reports no nausea. vitals updated. waiting for dispo/surgery to review ct scan.
--- NOTE | 2020-10-09 08:16 | PM.CNGS ---
History of Present Illness Consult details Consult date: 10/09/20 Narrative: [age] year female with morbid obesity, referred to me by the ER because vague abdominal pain and vomiting. She came to the emergency room last night because what she described as nausea and vomiting. She actually says that she was vomiting more of ?phlegm? more than gastric contents. She does have chronic history of this. Review of her records actually reveal that she was admitted last July because of intractable vomiting. She had an EGD done at that time showing gastritis, duodenitis and esophagitis. She has had frequent episodes but she thought that this was worse yesterday. She denies any diarrhea constipation. She stated she had episodes of pain as well last night mostly on the right side of her abdomen. She had a CAT scan done showing some pre fluid in the abdomen and pelvis. There was no other pathology seen. There was no inflammatory process suggested. She currently says that she feels much better. She denies any pain at this time. She says she is comfortable now and is not nausea Review of Systems Constitutional: Constitutional: Denies chills and Denies fever(s) Cardiovascular: Cardiovascular: Denies chest pain, Denies dyspnea and Denies dyspnea on exertion Respiratory: Respiratory: Denies cough, Denies dyspnea and Denies dyspnea on exertion Gastrointestinal: Gastrointestinal: Denies hematochezia and Denies change in bowel habits Genitourinary: Genitourinary: Denies hematuria Musculoskeletal: Musculoskeletal: Denies back pain and Denies limited range of motion Neurologic: Denies focal weakness and Denies convulsions Psychiatric: Psychiatric: Denies depression and Denies mood swings PMF Past Medical History Medical History Bladder outlet obstruction CKD (chronic kidney disease) stage 4, GFR 15-29 ml/min Diabetes mellitus Diabetes mellitus with gastroparesis Esophagitis Gastritis Hypertension Intractable nausea and vomiting Family History Family History Father Diabetes Mother Diabetes Hypertension Breast cancer Family/Other Breast cancer Uterine cancer Surgical History Surgical History History of tubal ligation Social History Social History Household Members: None Housing: Apartment Alcohol intake: never Smoking Status: Never smoker Smoked in Last 30 Days: No Use of substances other than those prescribed or required for medical reasons: No Advance Directives: No Advance Directives Information Provided: No service: No Current occupational status: disabled Meds Allergies Allergy/AdvReac Type Severity Reaction Status Date / Time metformin [METFORMIN] Allergy Severe HIVES Verified 09/10/20 13:59 canagliflozin [From Invokana] Allergy Hives Verified 09/10/20 13:59 Active Medications: Current Medications Generic Name Dose Route Start Last Admin Trade Name Freq PRN Reason Stop Dose Admin Pharmacy Consult 1 each 10/09/20 02:52 Consult Rx Perform Med Rec MISCELLANE ONCE PRN Consult order Home Medications Medication Instructions Recorded Confirmed Last Taken Type Humulin R U-500 (Conc) Insulin 30 unit SUBCUT TID 07/31/20 09/10/20 Unknown History Rayaldee 30 mcg PO DAILY 07/31/20 10/09/20 Unknown History Trulicity mg SUBCUT QWEEK 07/31/20 09/10/20 Unknown History amlodipine 1 tab PO DAILY 07/31/20 09/10/20 Unknown History levothyroxine 1 tab PO DAILY 07/31/20 09/10/20 Unknown History losartan 100 mg PO DAILY 07/31/20 10/09/20 Unknown History ondansetron HCl 8 mg PO TID PRN 07/31/20 10/09/20 Unknown History torsemide 100 mg PO BID 07/31/20 10/09/20 Unknown History Physical Exam Vital Signs: Vital Signs: Last Vital Signs Temp 99.1 F 10/09/20 07:30 Pulse 68 10/09/20 07:30 Resp 18 10/09/20 07:30 BP 147/63 H 10/09/20 07:30 Pulse Ox 97 10/09/20 07:30 Body Mass Index 72.3 Const: Other: Morbidly obese General: comfortable and no acute distress Orientation/consciousness: patient oriented x3 Neck: Neck: Yes no lymphadenopathy Resp: Auscultation: clear to auscultation bilaterally Cardio: Rhythm: regular rhythm GI: Other: Very large band on the abdomen, thick amount of subcutaneous fat in the months pubis area and upper perineum, no cellulitis changes Palpation (GI): Soft to palpation, nontender and no guarding Neuro: General: patient oriented x3 Results Labs Result diagrams: 10/09/20 03:20 10/09/20 03:20 Labs: Abnormal lab results 10/09/20 10/09/20 10/09/20 Range/Units 03:20 03:20 03:20 WBC 12.7 H (4.8-10.8) X10*3/uL RBC 4.10 L (4.20-5.50) X10*6/uL Eos # (Auto) 0.5 H (0.0-0.4) X10*3/uL Potassium 3.1 L (3.3-5.1) mmol/L Anion Gap 11 L (12-20) BUN 23 H (9-16) mg/dL Creatinine 1.56 H (0.5-1.4) mg/dL POC Glucose (60-115) mg/dL Random Glucose 127 H D (60-115) mg/dL Calcium 7.1 L (8.4-10.2) mg/dL Magnesium 1.4 L* (1.6-2.6) mg/dL Alkaline Phosphatase 202 H D (39-117) U/L Total Protein 4.6 L (6.5-8.0) g/dL Albumin 1.9 L (3.5-5.0) g/dL Urine Protein 3+ H (NEG-TRACE) MG/DL Urine Glucose (UA) 250 H (NEG) MG/DL Urine Blood 2+ H (NEG) Urine WBC 5-9 H (0-4) /HPF 10/09/20 Range/Units 04:58 WBC (4.8-10.8) X10*3/uL RBC (4.20-5.50) X10*6/uL Eos # (Auto) (0.0-0.4) X10*3/uL Potassium (3.3-5.1) mmol/L Anion Gap (12-20) BUN (9-16) mg/dL Creatinine (0.5-1.4) mg/dL POC Glucose 137 H (60-115) mg/dL Random Glucose (60-115) mg/dL Calcium (8.4-10.2) mg/dL Magnesium (1.6-2.6) mg/dL Alkaline Phosphatase (39-117) U/L Total Protein (6.5-8.0) g/dL Albumin (3.5-5.0) g/dL Urine Protein (NEG-TRACE) MG/DL Urine Glucose (UA) (NEG) MG/DL Urine Blood (NEG) Urine WBC (0-4) /HPF Short CBC 10/09/20 Range/Units 03:20 WBC 12.7 H (4.8-10.8) X10*3/uL Hgb 12.5 (12.0-16.0) g/dl Hct 37.7 (37-47) % Plt Count 336 (160-400) X10*3/uL BMP 10/09/20 03:20 Sodium 139 Potassium 3.1 L Chloride 105 Carbon Dioxide 26 BUN 23 H Creatinine 1.56 H Calcium 7.1 L Liver Function 10/09/20 Range/Units 03:20 Total Bilirubin 0.3 (0.0-1.0) mg/dL Direct Bilirubin 0.2 (0.0-0.5) mg/dL AST 22 D (5-31) U/L ALT 17 (0-31) U/L Alkaline Phosphatase 202 H D (39-117) U/L Albumin 1.9 L (3.5-5.0) g/dL Urine 10/09/20 Range/Units 03:20 Urine Color YELLOW Urine Appearance HAZY Urine pH 6.5 (5.0-8.0) Ur Specific [place] 1.020 (1.005-1.025) Urine Protein 3+ H (NEG-TRACE) MG/DL Urine Glucose (UA) 250 H (NEG) MG/DL All other labs normal. Imaging Abdomen CT scan report/results: report reviewed and image reviewed CT scan - chest: report reviewed and image reviewed CT scan - pelvis: report reviewed and image reviewed Assessment and Plan (1) Nausea & vomiting: Problem details: She came in for nausea and vomiting last night. She does state that he has has this problem chronically. She currently feels much more comfortable and denies any abdominal pain. Have reviewed her CAT scan and this does not reveal any acute inflammatory process with in the abdomen or pelvis nor any significant pathology. The free fluid seen is not specific and is likely from her low albumin. She has a very benign exam and does not appear ill. She does have RBCs in her urine and has none obstructing calculi in the right kidney. At this time, she does not seem to have any significant surgical issues. If she does get admitted for other medical problems, follow along. Status: Acute
--- NOTE | 2020-10-09 10:02 | MHC.CM.PN ---
Addendum entered by Kayy Yang RN 10/09/20 10:20: [facility] NURSE NAVIGATOR- CANDACE HALL Original Note: PT IN ED W/INCREASED NAUSEA AND VOMITING AND RUQ PAIN, EMR REVIEWED, CM MET WITH PT WHO IS ALERT AND ORIENTED AND REPORTS SHE LIVES ALONE, PT USES WHEEL CHAIR AT HOME AND CAN STAND AND TRANSFER TO COMMODE ALTHOUGH TRANSFERS AND WALKING HAVE BECOME MORE DIFFICULT RECENTLY, PT ALSO HAS A NEBULIZER, INSULIN SUPPLIES AND BARS IN BATHROOM TO ASSIST WITH TRANSFERS, PT REPORTS SHE HAS A FORMULATION CHEMIST FOR PERSONAL CARE, CLEANING COOKING 2HRS 3 X A DAY 7 DAYS A WEEK, PT REPORTS HER SON IS HER FORMULATION CHEMIST AND IT IS VERY UNCOMFORTABLE FOR BOTH PT AND SON FOR HIM TO ASSIST PT WITH BATHING, PT REPORTS SHE NEEDS TO FIND A FEMALE FORMULATION CHEMIST AND IS AWARE SHE NEEDS TO DO THIS ON HER OWN AND IT CANNOT BE SET UP BY CM, PT VERIFIED SHE HAS A NURSE NAVIGATOR 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 PT UNSURE OF HOW FREQUENTLY. PT REPORTS SHE USES AN AMBULANCE FOR ALL APPOINTMENTS, PT ABLE TO VERIFY PCP, PHARMACY AND REPORTS HCP ON FILE FROM PREVIOUS VISIT IS ACCURATE. PT REPORTS SHE PREFERS [facility] AND DID NOT WANT [facility] WHOM SHE HAD PREVIOUSLY IF NEEDED. DISCHARGE PLAN:STR W/BLS TRANSPORT, MULTIPLE REFERRAL SENT, PT'S FIRST CHOICE IS [facility], SECOND IS [facility]. HCP: SHAHEED WANG (CELL) [phone] (W) [phone] TAMMY FULTON (SON) [phone], PCP: ROMANA QUIROZ
--- NOTE | 2020-10-09 10:32 | PC.NURSE ---
PT SLEEPING. WAITING PT EVAL.
[2020-10-09 11:16] LABS: Glucose, Whole Blood 160 mg/dL (60-115)
--- NOTE | 2020-10-09 13:42 | MHC.CM.PN ---
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
== END 2020-10-09 17:42 | disposition skilled nursing facility (03) ==
PROVIDERS: Emergency Medicine; Emergency Provider Emergency Medicine Emergency Medical Services; PCP Internal Medicine
DX: N30.00 Acute cystitis without hematuria (principal); R11.2 Nausea with vomiting, unspecified; E87.6 Hypokalemia; E83.42 Hypomagnesemia; E11.22 Type 2 diabetes mellitus with diabetic chronic kidney disease; I12.9 Hypertensive chronic kidney disease with stage 1 through stage 4 chronic kidney disease, or unspecified chronic kidney disease; N18.4 Chronic kidney disease, stage 4 (severe); Z79.4 Long term (current) use of insulin; Z79.899 Other long term (current) drug therapy
CPT/HCPCS: 36415; 51798; 74176; 80048; 80076; 81001; 82947; 83605; 83690; 83735; 85025; 85610; 85730; 87040; 87086; 87088; 87186; 87635; 93005; 96361; 96365; 96367; 96375; 97162; 99283; 99284; 99285; J1335; J2270; J2405; J3475

== ENCOUNTER 2020-10-10 07:33 | Outpatient (REF) | payer MEDICARE, MEDICAID, SELFPAY ==
[2020-10-10 08:01] LABS: Hematocrit 35.2 % (37-47); Hemoglobin 11.4 g/dl (12.0-16.0); Mean Corpuscular HGB Conc 32.4 g/dl (31.0-35.0); Mean Corpuscular Hemoglobin 30.3 pg (27.0-33.0); Mean Corpuscular Volume 93.6 fL (80-98); Mean Platelet Volume 10.8 fL (9.4-12.3); Platelet Count 280 X10*3/uL (160-400); Red Blood Count 3.76 X10*6/uL (4.20-5.50); Red Cell Distribution Width 13.6 % (11.0-16.0); White Blood Count 10.6 X10*3/uL (4.8-10.8)
[2020-10-10 08:19] LABS: Alanine Aminotransferase 16 U/L (0-31); Albumin Level 1.8 g/dL (3.5-5.0); Alkaline Phosphatase 182 U/L (39-117); Anion Gap 10 (12-20); Aspartate Amino Transferase 16 U/L (5-31); Bilirubin Total 0.3 mg/dL (0.0-1.0); Blood Urea Nitrogen 30 mg/dL (9-16); Calcium 7.4 mg/dL (8.4-10.2); Carbon Dioxide 26 mmol/L (22-29); Chloride 105 mmol/L (96-108); Estimated Glomerular Filt Rate 22; Glucose Random 286 mg/dL (60-115); Potassium 3.7 mmol/L (3.3-5.1); Sodium 137 mmol/L (135-145); Total Protein 4.2 g/dL (6.5-8.0)
== END 2020-10-10 07:34 | disposition home or self-care (01) ==
LOC: HO.MMNH1L 07:33
PROVIDERS: Visit Provider Family Medicine
DX: N39.0 Urinary tract infection, site not specified (principal)
CPT/HCPCS: 36415; 80053; 85027

== ENCOUNTER 2020-10-14 10:32 | Outpatient (REF) | payer MEDICARE, MEDICAID, SELFPAY ==
[2020-10-14 07:09] LABS: Hematocrit 33.4 % (37-47); Hemoglobin 10.7 g/dl (12.0-16.0); Mean Corpuscular Hemoglobin 30.2 pg (27.0-33.0); Mean Corpuscular Volume 94.4 fL (80-98); Mean Platelet Volume 11.1 fL (9.4-12.3); Platelet Count 252 X10*3/uL (160-400); Red Blood Count 3.54 X10*6/uL (4.20-5.50); Red Cell Distribution Width 13.2 % (11.0-16.0); White Blood Count 10.5 X10*3/uL (4.8-10.8)
[2020-10-14 07:29] LABS: Anion Gap 16 (12-20); Blood Urea Nitrogen 36 mg/dL (9-16); Carbon Dioxide 22 mmol/L (22-29); Chloride 105 mmol/L (96-108); Estimated Glomerular Filt Rate 17; Glucose Random 70 mg/dL (60-115); Potassium 3.8 mmol/L (3.3-5.1); Sodium 139 mmol/L (135-145)
[2020-10-14 07:44] LABS: Calcium 7.5 mg/dL (8.4-10.2)
== END 2020-10-14 10:33 | disposition home or self-care (01) ==
LOC: HO.MMNH1L 10:32
PROVIDERS: Visit Provider Family Medicine
DX: N39.0 Urinary tract infection, site not specified (principal)
CPT/HCPCS: 36415; 80048; 85027

== ENCOUNTER 2020-10-19 14:03 | Outpatient (REF) | payer MEDICARE, MEDICAID, SELFPAY ==
[2020-10-19 14:25] LABS: CDIFF Ag Positive (Negative); CDiff Toxin Positive (Negative)
[2020-10-19 14:27] LABS: CDIFF Internal ctrl Dots and bkg OK (V)
== END 2020-10-19 14:04 | disposition home or self-care (01) ==
LOC: HO.MMNH1L 14:03
PROVIDERS: Visit Provider Family Medicine
DX: K58.9 Irritable bowel syndrome, unspecified (principal); I10 Essential (primary) hypertension; K29.70 Gastritis, unspecified, without bleeding
CPT/HCPCS: 87324; 87449

== ENCOUNTER 2020-10-21 10:46 | Outpatient (REF) | payer MEDICARE, MEDICAID, SELFPAY ==
[2020-10-21 07:33] LABS: Hematocrit 32.7 % (37-47); Hemoglobin 10.3 g/dl (12.0-16.0); Mean Corpuscular HGB Conc 31.5 g/dl (31.0-35.0); Mean Corpuscular Hemoglobin 29.8 pg (27.0-33.0); Mean Corpuscular Volume 94.5 fL (80-98); Mean Platelet Volume 10.6 fL (9.4-12.3); Platelet Count 258 X10*3/uL (160-400); Red Blood Count 3.46 X10*6/uL (4.20-5.50); Red Cell Distribution Width 12.7 % (11.0-16.0); White Blood Count 10.6 X10*3/uL (4.8-10.8)
[2020-10-21 08:13] LABS: Anion Gap 13 (12-20); Blood Urea Nitrogen 35 mg/dL (9-16); Carbon Dioxide 29 mmol/L (22-29); Chloride 101 mmol/L (96-108); Estimated Glomerular Filt Rate 15; Glucose Random 175 mg/dL (60-115); Potassium 3.7 mmol/L (3.3-5.1); Sodium 139 mmol/L (135-145)
== END 2020-10-21 10:47 | disposition home or self-care (01) ==
LOC: HO.MMNH1L 10:46
PROVIDERS: Visit Provider Family Medicine
DX: N39.0 Urinary tract infection, site not specified (principal)
CPT/HCPCS: 36415; 80048; 85027

== ENCOUNTER 2020-10-28 09:58 | Outpatient (REF) | payer MEDICARE, MEDICAID, SELFPAY ==
[2020-10-28 08:31] LABS: Hemoglobin 9.7 g/dl (12.0-16.0); Mean Corpuscular HGB Conc 31.3 g/dl (31.0-35.0); Mean Corpuscular Hemoglobin 29.6 pg (27.0-33.0); Mean Corpuscular Volume 94.5 fL (80-98); Platelet Count 308 X10*3/uL (160-400); Red Blood Count 3.28 X10*6/uL (4.20-5.50); Red Cell Distribution Width 12.2 % (11.0-16.0); White Blood Count 9.2 X10*3/uL (4.8-10.8)
[2020-10-28 09:25] LABS: Anion Gap 14 (12-20); Blood Urea Nitrogen 29 mg/dL (9-16); Carbon Dioxide 28 mmol/L (22-29); Chloride 99 mmol/L (96-108); Estimated Glomerular Filt Rate 17; Glucose Random 184 mg/dL (60-115); Potassium 4.3 mmol/L (3.3-5.1); Sodium 137 mmol/L (135-145)
[2020-10-28 09:35] LABS: Calcium 7.5 mg/dL (8.4-10.2)
== END 2020-10-28 09:59 | disposition home or self-care (01) ==
LOC: HO.MMNH1L 09:58
PROVIDERS: Visit Provider Family Medicine
DX: N39.0 Urinary tract infection, site not specified (principal)
CPT/HCPCS: 36415; 80048; 85027

== ENCOUNTER 2020-11-04 00:20 | Outpatient (REF) | payer MEDICARE, MEDICAID, SELFPAY | END 2020-11-04 00:21 | disposition home or self-care (01) | LOC: HO.MMNH1L 00:20 | PROVIDERS: Visit Provider Family Medicine | DX: Z13.89 Encounter for screening for other disorder (principal) ==

== ENCOUNTER 2020-12-27 19:23 | Inpatient (IN) | payer MEDICARE, MEDICAID, SELFPAY ==
--- NOTE | ~2020-12-27 | US_ITS ---
EXAMINATION: US ABDOMEN LIMITED CLINICAL INFORMATION: Abdominal pain and vomiting, rule out gallstones. COMPARISON: Renal ultrasound performed on 12/28/2020, CT scan of the abdomen and pelvis dated 10/09/2020. TECHNIQUE: Real-time imaging of the right upper quadrant abdominal viscera. FINDINGS: PANCREAS: Visualized portions unremarkable. LIVER: Mildly heterogeneous without focal abnormality. GALLBLADDER: Moderate diffuse mural thickening measuring up to 0.7 cm and minimal pericholecystic fluid. No intraluminal abnormality. COMMON BILE DUCT: Normal in caliber measuring 0.3 cm in diameter. RIGHT KIDNEY: 14.3 cm. Interpolar echogenic focus measuring 0.8 cm. No hydronephrosis. FREE FLUID: None. US/US abdomen limited IMPRESSION: 1. Moderate diffuse mural thickening in the gallbladder is nonspecific. This appearance is somewhat similar to the previous CT scan suggesting these could represent chronic changes secondary to systemic disease. Previously seen peritoneal ascites has decreased. Residual minimal fluid cannot be excluded. No cholelithiasis. Acalculus cholecystitis cannot be excluded. 2. Nonobstructing interpolar right intrarenal calculus without significant change.
--- NOTE | ~2020-12-27 | XR_ITS ---
EXAMINATION: XR CHEST CLINICAL INFORMATION: Chest pain COMPARISON: Chest x-ray 09/18/2019 TECHNIQUE: Frontal portable view of the chest was obtained. 7:55 PM FINDINGS: No significant abnormality is noted involving the heart, lungs, mediastinum, bony thorax or soft tissues. XR/XR chest 1V IMPRESSION: Unremarkable examination.
--- NOTE | ~2020-12-27 | NM_ITS ---
EXAMINATION: CHEST. VQ SCAN. CLINICAL INFORMATION: Chest pain. Evaluate for PE. COMPARISON: Chest x-ray 04/28/2021 TECHNIQUE: Chest one view. 4 mCi of technetium 99m MAA was administered intravenously and images of both lungs are obtained in multiple projections. FINDINGS: CHEST: Both lungs are fairly well-expanded and clear. The heart size and pulmonary vascularity is normal. No gross bony abnormality seen. VQ SCAN: There is mild decreased perfusion in right middle lobe and posterior basal segment right lower lobe not visualized on are aorta or AP or posterior views. This is most likely right breast artifact. Compared to right there is overall decreased left pleural effusion as well as decreased left aeration on the chest x-ray 12/30/2020 NM/NM pul perfusion IMPRESSION: Unremarkable chest exam. Findings suggestive of low probability for PE
--- NOTE | ~2020-12-27 | US_ITS ---
EXAMINATION: US RETROPERITONEAL LIMITED (RENAL ONLY) CLINICAL INFORMATION: Urinary tract infection. COMPARISON: CT abdomen and pelvis without contrast dated 10/09/2020. Renals only ultrasound dated 07/01/2016. KUB dated 10/23/2015. TECHNIQUE: Real-time imaging of the kidneys. FINDINGS: Evaluation is significantly limited due to patient's body habitus. Kidney detail is poor. RIGHT KIDNEY: 12.3 x 7.3 x 6.4 cm (SAG x AP x TRV). The kidney is normal in size, contour, and echogenicity. Renal cortical thickness is normal. No hydronephrosis. In the lower pole of the left kidney, there is a 1.3 x 1.9 x 1.3 cm hypoechoic mass with low-level internal echoes and possible linear calcification, poorly visualized. On prior CT scan of the abdomen dated 12/17/2016, a 1.4 x 1.2 cm simple appearing cyst was demonstrated. In the mid right kidney, a 0.5 x 0.5 x 0.7 cm calcification is seen with focal calyceal dilatation in the mid right kidney, suggesting obstructive change in region of the infundibulum. LEFT KIDNEY: 14.4 x 6.8 x 5.7 cm (SAG x AP x TRV). The kidney is normal in size, contour, and echogenicity. Renal cortical thickness is normal. No renal calculi or hydronephrosis. In the lower pole of the left kidney, there is a 0.7 x 0.5 x 0.7 cm anechoic avascular cyst. US/US renal BI IMPRESSION: 1. Limited exam with poor visualization of the kidneys. 2. Mid right renal 0.7 cm calcification is seen with suspicion of obstruction with focal calyceal dilatation at the level of the mid right renal infundibulum. 3. Complex cystic mass in the lower pole of the left kidney, demonstrating low level internal echoes and possibly also linear calcification. On previous contrast-enhanced CT scan of the abdomen from 12/17/2016, a slightly smaller and simple appearing mid right renal cyst was seen. Consider short interval follow-up ultrasound to demonstrate size stability versus dedicated assessment with MRI scan of the abdomen with and without contrast. 4. Benign tiny lower pole left renal cyst.
--- NOTE | 2020-12-27 19:32 | ECG_ITS ---
Test Reason : CHEST PAIN Blood Pressure : / mmHG Vent. Rate : 085 BPM Atrial Rate : 085 BPM P-R Int : 138 ms QRS Dur : 086 ms QT Int : 376 ms P-R-T Axes : 039 -42 041 degrees QTc Int : 447 ms Normal sinus rhythm Left axis deviation Abnormal ECG When compared with ECG of 09-OCT-2020 03:29, Nonspecific T wave abnormality no longer evident in Inferior leads Nonspecific T wave abnormality no longer evident in Lateral leads QT has shortened Referred By: Generic ED Physician Electronically Signed By:JOSE ROBERTO BLANCO MD
[2020-12-27 19:33] VITALS: BP 140/93; BP 184/76; PULSE 84; PULSE 88; RESP 20; TEMP 37.3; O2SAT 96; O2SAT 98; BMI 62.4
--- NOTE | 2020-12-27 19:35 | ED_ITS ---
HPI - Chest Pain General Chief Complaint: Chest Pain Stated Complaint: rt side chest pain Time Seen by Provider: 12/27/20 19:34 Source: patient Mode of arrival: ambulatory Limitations: no limitations History of Present Illness HPI narrative: Patient morbidly obese with history of hypertension diabetes mellitus CKD and gastroparesis comes here for 3 days of nausea vomiting and pain in mid chest after vomiting. Patient feeling weak vomited about 6 to 7 times a day unable to eat much diffuse abdominal pain no fever no chills no diarrhea patient has chronic lymphedema. Patient denies any pain in the left side, pain started after vomiting no diaphoresis no cough or shortness of breath patient does get this upper abdominal pain with vomiting episodes 3 - 4 times a year she had a CT scan done on 10/20 which was negative for any acute pathology this time she is not able to drink at all , vomiting persistently and feeling weak MD complaint: chest discomfort Related Data Home Medications Medication Instructions Recorded Confirmed levothyroxine 25 mcg PO DAILY 07/31/20 12/28/20 losartan 100 mg PO DAILY 07/31/20 12/28/20 calcifediol [Rayaldee] 30 mcg PO DAILY 10/09/20 12/28/20 insulin glargine [Lantus U-100 95 unit SUBCUT BID 10/09/20 12/28/20 Insulin] alcohol swabs 0 pad TOPICAL BID 12/20/20 12/28/20 lancets 28 gauge #100 ea 12/20/20 12/20/20 losartan 1 tab PO DAILY 12/28/20 12/28/20 nystatin 1 appful TOPICAL QID 12/28/20 12/28/20 ropinirole 1 tab PO BEDTIME 12/28/20 12/28/20 sulfamethoxazole-trimethoprim 1 tab PO BID 12/28/20 12/28/20 torsemide 1 tab PO BID 12/28/20 12/28/20 Previous Rx's Medication Instructions Recorded omeprazole 40 mg PO BID@0630,1630 #120 cap 08/03/20 albuterol sulfate 90 mcg/actuation 2 puff INHALATION Q4H PRN 30 Days 09/05/20 aerosol inhaler #8.5 g acetaminophen 325 mg capsule 650 mg PO Q6H PRN #60 cap 11/04/20 amlodipine 5 mg tablet 5 mg PO DAILY #30 tab 11/04/20 dulaglutide 1.5 mg/0.5 mL 1.5 mg SUBCUT QWEEK #2 ml 11/04/20 subcutaneous pen injector insulin regular hum U-500 conc 500 30 unit SUBCUT TID #5 vial 12/13/20 unit/mL subcutaneous soln insulin syringe-needle U-100 1 mL #100 ea 12/18/20 30 gauge x 1/2 blood sugar diagnostic #50 ea 12/20/20 Allergies Allergy/AdvReac Type Severity Reaction Status Date / Time metformin [METFORMIN] Allergy Severe HIVES Verified 12/27/20 19:38 canagliflozin [From Invokana] Allergy Hives Verified 12/27/20 19:38 Review of Systems Review of Systems: Constitutional : No Weight loss, No Fever, No Chills ENT/Mouth : No sore throat, No Rhinorrhea Eyes: No Eye Pain, No Swelling Cardiovascular : + Chest Pain, no palpitations Respiratory : No Cough, No Sputum, no shortness of breath Gastrointestinal : + Nausea, ++ Vomiting, No Diarrhea, + abdominal Pain, no black stools Genitourinary : No Dysuria, No Urinary Frequency Musculoskeletal : No joint pain, No Myalgias, No Joint Swelling Skin : No Skin Lesions, No rash Neuro : No Weakness, No Numbness, No Dizziness, No Headache Psych : No Anxiety/Panic, No Depression Heme/Lymph: No Bruising, No Lymphadenopathy Endocrine : No Polyuria, No Polydipsia All other systems reviewed and are negative [facility] Past Medical History Medical History Bladder outlet obstruction CKD (chronic kidney disease) stage 4, GFR 15-29 ml/min Diabetes mellitus Diabetes mellitus with gastroparesis Esophagitis Gastritis Hypertension Intractable nausea and vomiting Morbid obesity Surgical History History of tubal ligation Family History Family History Father Diabetes Mother Diabetes Hypertension Breast cancer Family/Other Breast cancer Uterine cancer Social History Social History Household Members: None Housing: Apartment Alcohol intake: never Smoking Status: Never smoker Advance Directives: No Advance Directives Information Provided: Yes service: No Current occupational status: disabled Physical Exam Vital Signs: Vital Signs: Last Vital Signs Temp 99.2 F 12/27/20 19:33 Pulse 93 12/27/20 23:57 Resp 18 12/27/20 23:57 BP 173/71 H 12/27/20 23:57 Pulse Ox 97 12/27/20 23:57 Body Mass Index 62.4 Appearance: Alert. Oriented X3. No acute distress. Morbidly obese lymphedema Eyes: PERRLA, No Nystagmus ENT: Pharynx normal. Oral Mucosa moist Neck: Normal inspection. Neck supple. CVS: Normal heart rate and rhythm. Pulses normal. Respiratory: No respiratory distress. Equal air entry bilateral, no wheezing/rales/rhonchi, right-sided chest wall tenderness Abdomen: Soft and nontender. Bowel sounds are present, no mass palpable, no CVA tenderness Skin: Skin warm and dry. Normal skin color. Normal skin turgor. Extremities: No calf tenderness lymphedema++ Neuro: Oriented X 3. No motor deficit. No sensory deficit.No cerebellar signs , cranial nerves II-XII intact MDM - Chest Pain MDM Narrative Medical decision making narrative: Patient with acute gastritis vomiting for 3 days lab workup showed elevated potassium level to 7.1 creatinine of 2.5 which was her baseline repeat potassium level was 6.6 , no acute EKG changes, patient's bicarb is 15 patient taking losartan which contains potassium may be the cause of hyperkalemia along with renal failure will give her Kayexalate calcium gluconate insulin IV IV fluids and recheck K+, patient was on Bactrim also for last 10 days 0130: Patient potassium level is 5.9, Creatinine 2.6 to and blood sugar 494 will give extra dose of insulin and IV fluids patient only received her Lantus tonight Medical Records Data Attestation: I reviewed the patient's medical records. Lab Data Attestation: I reviewed the patient's lab results. Result diagrams: 12/27/20 20:12 12/28/20 00:54 Labs: Lab Results 12/27/20 12/27/20 12/27/20 Range/Units 20:12 20:12 20:12 WBC 13.8 H (4.8-10.8) X10*3/uL RBC 4.21 D (4.20-5.50) X10*6/uL Hgb 13.0 D (12.0-16.0) g/dl Hct 38.9 D (37-47) % MCV 92.4 (80-98) fL MCH 30.9 (27.0-33.0) pg MCHC 33.4 (31.0-35.0) g/dl RDW 13.4 (11.0-16.0) % Plt Count 328 (160-400) X10*3/uL MPV 9.9 (9.4-12.3) fL Immature Gran % (Auto) 0.6 H (0.0-0.4) % Neut % (Auto) 87.8 H (45-73) % Lymph % (Auto) 8.3 L (20-40) % [place] % (Auto) 2.8 (2-11) % Eos % (Auto) 0.1 (0-4) % Baso % (Auto) 0.4 (0-2) % Lymph # (Auto) 1.2 (1.2-4.9) X10*3/uL [place] # (Auto) 0.4 (0.1-1.2) X10*3/uL Eos # (Auto) 0.0 (0.0-0.4) X10*3/uL Baso # (Auto) 0.1 (0.0-0.2) X10*3/uL Abs Immat Gran (auto) 0.08 H (0.00-0.03) X10*3/uL Absolute Neuts (auto) 12.1 H (2.0-8.3) X10*3/uL Absolute Nucleated RBC 0.000 (0.0-0.012) X10*3/uL Nucleated RBC % (auto) 0.0 (0.0-0.2) /100WBC Hold Blue Top SEE NOTE Sodium 133 L (135-145) mmol/L Potassium 7.1 H* D (3.3-5.1) mmol/L Chloride 107 (96-108) mmol/L Carbon Dioxide 16 L (22-29) mmol/L Anion Gap 17 (12-20) BUN 46 H D (9-16) mg/dL Creatinine 2.50 H (0.5-1.4) mg/dL Estim Creat Clear Calc 38.9 Estimated GFR 20 POC Glucose (60-115) mg/dL Random Glucose 437 H* (60-115) mg/dL Calcium 8.5 D (8.4-10.2) mg/dL Total Bilirubin 0.4 (0.0-1.0) mg/dL Direct Bilirubin 0.2 (0.0-0.5) mg/dL AST 21 (5-31) U/L ALT 12 (0-31) U/L Alkaline Phosphatase 109 D (39-117) U/L Troponin I High Sens (<3.5-17.0) ng/L Total Protein 5.7 L D (6.5-8.0) g/dL Albumin 2.4 L D (3.5-5.0) g/dL Lipase 20 (8-78) U/L Urine Color Urine Appearance Urine pH (5.0-8.0) Ur Specific [place] (1.005-1.025) Urine Protein (NEG-TRACE) MG/DL Urine Glucose (UA) (NEG) MG/DL Urine Ketones (NEG) MG/DL Urine Blood (NEG) Urine Nitrite (NEG) Ur Leukocyte Esterase (NEG) Urine RBC (0) /HPF Urine WBC (0-4) /HPF Ur Squamous Epith Cells /LPF Urine Bacteria /LPF COVID-19 ([facility]) (Negative) COVID-19 Clin Com 12/27/20 12/27/20 12/27/20 Range/Units 20:12 21:05 21:09 WBC (4.8-10.8) X10*3/uL RBC (4.20-5.50) X10*6/uL Hgb (12.0-16.0) g/dl Hct (37-47) % MCV (80-98) fL MCH (27.0-33.0) pg MCHC (31.0-35.0) g/dl RDW (11.0-16.0) % Plt Count (160-400) X10*3/uL MPV (9.4-12.3) fL Immature Gran % (Auto) (0.0-0.4) % Neut % (Auto) (45-73) % Lymph % (Auto) (20-40) % [place] % (Auto) (2-11) % Eos % (Auto) (0-4) % Baso % (Auto) (0-2) % Lymph # (Auto) (1.2-4.9) X10*3/uL [place] # (Auto) (0.1-1.2) X10*3/uL Eos # (Auto) (0.0-0.4) X10*3/uL Baso # (Auto) (0.0-0.2) X10*3/uL Abs Immat Gran (auto) (0.00-0.03) X10*3/uL Absolute Neuts (auto) (2.0-8.3) X10*3/uL Absolute Nucleated RBC (0.0-0.012) X10*3/uL Nucleated RBC % (auto) (0.0-0.2) /100WBC Hold Blue Top Sodium 133 L (135-145) mmol/L Potassium 6.6 H* (3.3-5.1) mmol/L Chloride 107 (96-108) mmol/L Carbon Dioxide 15 L (22-29) mmol/L Anion Gap 18 (12-20) BUN (9-16) mg/dL Creatinine (0.5-1.4) mg/dL Estim Creat Clear Calc Estimated GFR POC Glucose 408 H* (60-115) mg/dL Random Glucose (60-115) mg/dL Calcium (8.4-10.2) mg/dL Total Bilirubin (0.0-1.0) mg/dL Direct Bilirubin (0.0-0.5) mg/dL AST (5-31) U/L ALT (0-31) U/L Alkaline Phosphatase (39-117) U/L Troponin I High Sens 14.4 (<3.5-17.0) ng/L Total Protein (6.5-8.0) g/dL Albumin (3.5-5.0) g/dL Lipase (8-78) U/L Urine Color Urine Appearance Urine pH (5.0-8.0) Ur Specific [place] (1.005-1.025) Urine Protein (NEG-TRACE) MG/DL Urine Glucose (UA) (NEG) MG/DL Urine Ketones (NEG) MG/DL Urine Blood (NEG) Urine Nitrite (NEG) Ur Leukocyte Esterase (NEG) Urine RBC (0) /HPF Urine WBC (0-4) /HPF Ur Squamous Epith Cells /LPF Urine Bacteria /LPF COVID-19 ([facility]) (Negative) COVID-19 Clin Com 12/27/20 12/27/20 12/28/20 Range/Units 22:39 22:44 00:32 WBC (4.8-10.8) X10*3/uL RBC (4.20-5.50) X10*6/uL Hgb (12.0-16.0) g/dl Hct (37-47) % MCV (80-98) fL MCH (27.0-33.0) pg MCHC (31.0-35.0) g/dl RDW (11.0-16.0) % Plt Count (160-400) X10*3/uL MPV (9.4-12.3) fL Immature Gran % (Auto) (0.0-0.4) % Neut % (Auto) (45-73) % Lymph % (Auto) (20-40) % [place] % (Auto) (2-11) % Eos % (Auto) (0-4) % Baso % (Auto) (0-2) % Lymph # (Auto) (1.2-4.9) X10*3/uL [place] # (Auto) (0.1-1.2) X10*3/uL Eos # (Auto) (0.0-0.4) X10*3/uL Baso # (Auto) (0.0-0.2) X10*3/uL Abs Immat Gran (auto) (0.00-0.03) X10*3/uL Absolute Neuts (auto) (2.0-8.3) X10*3/uL Absolute Nucleated RBC (0.0-0.012) X10*3/uL Nucleated RBC % (auto) (0.0-0.2) /100WBC Hold Blue Top Sodium (135-145) mmol/L Potassium (3.3-5.1) mmol/L Chloride (96-108) mmol/L Carbon Dioxide (22-29) mmol/L Anion Gap (12-20) BUN (9-16) mg/dL Creatinine (0.5-1.4) mg/dL Estim Creat Clear Calc Estimated GFR POC Glucose 376 H* 399 H* (60-115) mg/dL Random Glucose (60-115) mg/dL Calcium (8.4-10.2) mg/dL Total Bilirubin (0.0-1.0) mg/dL Direct Bilirubin (0.0-0.5) mg/dL AST (5-31) U/L ALT (0-31) U/L Alkaline Phosphatase (39-117) U/L Troponin I High Sens (<3.5-17.0) ng/L Total Protein (6.5-8.0) g/dL Albumin (3.5-5.0) g/dL Lipase (8-78) U/L Urine Color YELLOW Urine Appearance CLEAR Urine pH 7.0 (5.0-8.0) Ur Specific [place] 1.015 (1.005-1.025) Urine Protein 3+ H (NEG-TRACE) MG/DL Urine Glucose (UA) 500 H (NEG) MG/DL Urine Ketones 5 (NEG) MG/DL Urine Blood 2+ H (NEG) Urine Nitrite NEG (NEG) Ur Leukocyte Esterase NEG (NEG) Urine RBC 1-4 (0) /HPF Urine WBC 0 (0-4) /HPF Ur Squamous Epith Cells TRACE /LPF Urine Bacteria 1+ /LPF COVID-19 ([facility]) (Negative) COVID-19 Clin Com 12/28/20 12/28/20 Range/Units 00:54 00:54 WBC (4.8-10.8) X10*3/uL RBC (4.20-5.50) X10*6/uL Hgb (12.0-16.0) g/dl Hct (37-47) % MCV (80-98) fL MCH (27.0-33.0) pg MCHC (31.0-35.0) g/dl RDW (11.0-16.0) % Plt Count (160-400) X10*3/uL MPV (9.4-12.3) fL Immature Gran % (Auto) (0.0-0.4) % Neut % (Auto) (45-73) % Lymph % (Auto) (20-40) % [place] % (Auto) (2-11) % Eos % (Auto) (0-4) % Baso % (Auto) (0-2) % Lymph # (Auto) (1.2-4.9) X10*3/uL [place] # (Auto) (0.1-1.2) X10*3/uL Eos # (Auto) (0.0-0.4) X10*3/uL Baso # (Auto) (0.0-0.2) X10*3/uL Abs Immat Gran (auto) (0.00-0.03) X10*3/uL Absolute Neuts (auto) (2.0-8.3) X10*3/uL Absolute Nucleated RBC (0.0-0.012) X10*3/uL Nucleated RBC % (auto) (0.0-0.2) /100WBC Hold Blue Top Sodium 135 (135-145) mmol/L Potassium 5.9 H (3.3-5.1) mmol/L Chloride 107 (96-108) mmol/L Carbon Dioxide 17 L (22-29) mmol/L Anion Gap 17 (12-20) BUN 45 H (9-16) mg/dL Creatinine 2.62 H (0.5-1.4) mg/dL Estim Creat Clear Calc 37.1 Estimated GFR 18 POC Glucose (60-115) mg/dL Random Glucose 494 H* (60-115) mg/dL Calcium 8.8 (8.4-10.2) mg/dL Total Bilirubin (0.0-1.0) mg/dL Direct Bilirubin (0.0-0.5) mg/dL AST (5-31) U/L ALT (0-31) U/L Alkaline Phosphatase (39-117) U/L Troponin I High Sens (<3.5-17.0) ng/L Total Protein (6.5-8.0) g/dL Albumin (3.5-5.0) g/dL Lipase (8-78) U/L Urine Color Urine Appearance Urine pH (5.0-8.0) Ur Specific [place] (1.005-1.025) Urine Protein (NEG-TRACE) MG/DL Urine Glucose (UA) (NEG) MG/DL Urine Ketones (NEG) MG/DL Urine Blood (NEG) Urine Nitrite (NEG) Ur Leukocyte Esterase (NEG) Urine RBC (0) /HPF Urine WBC (0-4) /HPF Ur Squamous Epith Cells /LPF Urine Bacteria /LPF COVID-19 ([facility]ERA) Negative (Negative) COVID-19 Clin Com See Note ECG Data ECG #1: Attestation: I personally reviewed and interpreted this ECG as follows: Interpretation: Normal sinus rhythm heart rate 85 left axis deviation normal axis normal intervals no acute ST T wave changes impression no acute ischemia Discharge Plan Discharge Clinical Impression: Acute hyperglycemia, Acute hyperkalemia, Diabetes mellitus with gastroparesis Acute renal failure superimposed on chronic kidney disease Qualifiers: Acute renal failure type: with acute renal cortical necrosis Chronic kidney disease stage: stage 3 (moderate) Chronic kidney disease stage 3 subtype: stage 3b (GFR 30-44) Qualified Code(s): N17.1 - Acute kidney failure with acute magali ical necrosis Patient Disposition: Admitted As Inpatient
[2020-12-27 20:12] VITALS: BP 174/88; PULSE 88; RESP 20; O2SAT 98
[2020-12-27 20:17] LABS: MANUAL DIFF FLAG NO
[2020-12-27 20:25] LABS: Basophils Absolute Auto 0.1 X10*3/uL (0.0-0.2); Basophils Percent Auto 0.4 % (0-2); Eosinophils Percent Auto 0.1 % (0-4); Hematocrit 38.9 % (37-47); Imm Gran Abs Auto 0.08 X10*3/uL (0.00-0.03); Imm Gran Pct Auto 0.6 % (0.0-0.4); Lymphocytes Absolute Auto 1.2 X10*3/uL (1.2-4.9); Lymphocytes Percent Auto 8.3 % (20-40); Mean Corpuscular HGB Conc 33.4 g/dl (31.0-35.0); Mean Corpuscular Hemoglobin 30.9 pg (27.0-33.0); Mean Corpuscular Volume 92.4 fL (80-98); Mean Platelet Volume 9.9 fL (9.4-12.3); Monocytes Absolute Auto 0.4 X10*3/uL (0.1-1.2); Monocytes Percent Auto 2.8 % (2-11); Neutrophils Absolute Auto 12.1 X10*3/uL (2.0-8.3); Neutrophils Percent Auto 87.8 % (45-73); Platelet Count 328 X10*3/uL (160-400); Red Blood Count 4.21 X10*6/uL (4.20-5.50); Red Cell Distribution Width 13.4 % (11.0-16.0); White Blood Count 13.8 X10*3/uL (4.8-10.8)
[2020-12-27 20:50] LABS: Troponin-I High Sensitivity 14.4 ng/L (<3.5-17.0)
[2020-12-27 20:53] LABS: Anion Gap 17 (12-20); Blood Urea Nitrogen 46 mg/dL (9-16); Calcium 8.5 mg/dL (8.4-10.2); Carbon Dioxide 16 mmol/L (22-29); Chloride 107 mmol/L (96-108); Creatinine Clr Calc Pharmacy 38.9; Estimated Glomerular Filt Rate 20; Glucose Random 437 mg/dL (60-115); Potassium 7.1 mmol/L (3.3-5.1); Sodium 133 mmol/L (135-145)
[2020-12-27 21:08] LABS: Glucose, Whole Blood 408 mg/dL (60-115)
[2020-12-27] MEDS: Insulin Regular, Human 100 UNIT/ML 3 ML VIAL IVPUSH (21:11)
[2020-12-27] MEDS: Sodium Polystyrene Sulfon/Sorb 15 GM/60 ML ORAL.SUSP 30 GM PO (21:11)
[2020-12-27] MEDS: ondansetron HCL 4 MG/2 ML VIAL IVPUSH (21:12)
[2020-12-27] MEDS: Famotidine/PF 20 MG/2 ML VIAL IVPUSH (21:12)
[2020-12-27] MEDS: 0.9 % Sodium Chloride 1,000 ML 999 ML IVCONT (21:12)
[2020-12-27 21:20] LABS: Alanine Aminotransferase 12 U/L (0-31); Albumin Level 2.4 g/dL (3.5-5.0); Alkaline Phosphatase 109 U/L (39-117); Aspartate Amino Transferase 21 U/L (5-31); Bilirubin Direct 0.2 mg/dL (0.0-0.5); Bilirubin Total 0.4 mg/dL (0.0-1.0); Lipase 20 U/L (8-78); Total Protein 5.7 g/dL (6.5-8.0)
--- NOTE | 2020-12-27 21:40 | PC.NURSE ---
BIPIN Gonzalez received critical lab results. Per BIPIN Gonzalez, lab stated that the first set of labs hemolyzed a little bit . aware of this. Repeat Potassium level drawn and sent for analysis. Medicated as ordered. Awaiting repeat lab results. Pt accidentally incontinent of urine while dry heaving. Linens changed, personal hygiene care provided, and purewick applied. NSR on monitor technician, elevated BP noted. aware. Will continue to monitor.
[2020-12-27 21:44] LABS: Anion Gap 18 (12-20); Carbon Dioxide 15 mmol/L (22-29); Chloride 107 mmol/L (96-108); Potassium 6.6 mmol/L (3.3-5.1); Sodium 133 mmol/L (135-145)
[2020-12-27 21:46] VITALS: BP 203/80; PULSE 86; RESP 18; O2SAT 96
--- NOTE | 2020-12-27 21:48 | PC.NURSE ---
Repeat potassium level 6.6. aware. Plan for admission d/t hyperkalemia, hyperglycemia. Remains NSR on cardiac catheterization technician.
[2020-12-27 22:01] VITALS: BP 176/75; PULSE 91
[2020-12-27] MEDS: Calcium Gluconate/NaCl,Iso-Osm 2 GM/100 ML PLAST..BAG IV (22:01)
[2020-12-27] MEDS: amLODIPine Besylate 5 MG TABLET PO (22:01)
[2020-12-27] MEDS: Sodium Bicarbonate 8.4% 50 MEQ/50 ML VIAL IVPUSH (22:02)
[2020-12-27 22:47] LABS: Glucose Urine UA 500 MG/DL (NEG); Leukocyte Esterase Urine NEG (NEG); Nitrite Urine NEG (NEG); Specific Gravity - Urine 1.015 (1.005-1.025); Urine Blood 2+ (NEG); Urine Ketones 5 MG/DL (NEG); Urine Protein 3+ MG/DL (NEG-TRACE)
[2020-12-27 22:48] LABS: Appearance Urine CLEAR; Color Urine YELLOW
[2020-12-27 22:49] LABS: Glucose, Whole Blood 376 mg/dL (60-115)
[2020-12-27 22:53] LABS: Bacteria Urine 1+ /LPF; Squamous Epithelial Cell Urine TRACE /LPF; WBC Urine 0 /HPF (0-4)
--- NOTE | 2020-12-27 23:08 | PC.NURSE ---
Patient repeatedly bending arm, occluding flow of IV solutions. Pt repeatedly encouraged to keep arm straight. IV access otherwise patent and functional. Repositioned in bed for comfort. Will continue to monitor.
[2020-12-27 23:57] VITALS: BP 173/71; PULSE 93; RESP 18; O2SAT 97
[2020-12-28] VITALS (7 sets, daily range): BP systolic 143–221; BP diastolic 68–87; PULSE 66–88; RESP 18–20; TEMP 35.7–36.7; O2SAT 96–98
[2020-12-28 00:36] LABS: Glucose, Whole Blood 399 mg/dL (60-115)
[2020-12-28] MEDS: 0.9 % Sodium Chloride 1,000 ML 999 ML IVCONT (00:40)
[2020-12-28] MEDS: Insulin Glargine,Hum.rec.anlog 100 UNIT/ML 10 ML VIAL 60 UNIT SUBCUT (00:40)
[2020-12-28] MEDS: Metoclopramide HCl 10 MG/2 ML VIAL IVPUSH (00:40)
--- NOTE | 2020-12-28 01:12 | PM.IMHP ---
History of Present Illness Date of Service: 12/28/20 Chief Complaint: Nausea/Vomiting 60-year-old female with a past medical history of hypertension, diabetes, gastroparesis, history of gastritis/esophagitis, obesity, chronic kidney disease presented to the hospital with a chief complaint of nausea/vomiting. Patient mentioned that over the past few days she has been having nausea/vomiting and leading to decreased oral intake. Denies any chest pain palpitations lightheadedness dizziness. Denies any nausea vomiting diarrhea. Patient mentioned that she has been on Bactrim since December 20 for UTI. Still complains of urinary frequency and foul-smelling urine. Patient mentioned that she also takes losartan at home. Review of all other systems is negative except mentioned above ER course: Per ER team patient on presentation noted of benign examination, labs showed hyperkalemia of 7.1 with no EKG changes follow-up chemistry showed potassium levels of 6.6. Patient given insulin, dextrose, calcium gluconate. Patient also noted to have acidosis-given sodium bicarbonate. Creatinine is better than prior values. [facility] Medical History Bladder outlet obstruction CKD (chronic kidney disease) stage 4, GFR 15-29 ml/min Diabetes mellitus Diabetes mellitus with gastroparesis Esophagitis Gastritis Hypertension Intractable nausea and vomiting Morbid obesity Family History Father Diabetes Mother Diabetes Hypertension Breast cancer Family/Other Breast cancer Uterine cancer Surgical History History of tubal ligation Social History Household Members: None Housing: Apartment Do you presently have visiting nurse or other home services: Yes (Jimena Tolentino) Alcohol intake: unknown Smoking Status: Never smoker Second Hand Smoke Exposure: No Use of substances other than those prescribed or required for medical reasons: No Currently Displaying Signs/Symptoms of Drug Intoxication Withdrawal: No Have you been hit, kicked, punched, or otherwise hurt by someone within the past year? If so, by whom?: No Do you feel safe in your current relationship?: Yes Is there a partner from a previous relationship who is making you feel unsafe now?: No Are you made to feel afraid or neglected: No Advance Directives: No Advance Directives Information Provided: Yes Do you have thoughts of harming others: None Do you have a plan to hurt others: No Plan Recently lost weight without trying: No service: No Current occupational status: disabled Meds Allergies Allergy/AdvReac Type Severity Reaction Status Date / Time metformin [METFORMIN] Allergy Severe HIVES Verified 12/27/20 19:38 canagliflozin [From Invokana] Allergy Hives Verified 12/27/20 19:38 Active Medications: Current Medications Generic Name Dose Route Start Last Admin Trade Name Freq PRN Reason Stop Dose Admin Acetaminophen 650 mg 12/28/20 01:07 Acetaminophen 325 Mg Tablet PO Q6H PRN Pain, Mild (Pain Scale 1-3) Acetaminophen 650 mg 12/28/20 01:10 Acetaminophen 325 Mg Tablet PO Q6H PRN pain Albuterol Sulfate 2 puff 12/28/20 01:10 Albuterol Sulfate 90 Mcg 8 Gm Inhaler INHALE Q4H PRN bronchospasm Amlodipine Besylate 5 mg 12/28/20 09:00 Amlodipine Besylate 5 Mg Tablet PO DAILY [facility] Protocol Sodium Chloride 1,000 mls @ 999 mls/hr 12/28/20 00:30 12/28/20 00:40 Ns IVCONT 12/28/20 01:30 999 mls/hr .Q1H1M [facility] Administration Dextrose/Sodium Chloride 1,000 mls @ 100 mls/hr 12/28/20 01:15 D51/2ns IVCONT .Q10H [facility] Insulin Glargine 70 unit 12/28/20 09:00 Insulin Glargine,Hum.Rec.Anlog 100 Unit/Ml 10 Ml Vial SUBCUT BID [facility] Insulin Human Lispro 0 unit 12/28/20 07:30 Insulin Lispro 100 Unit/Ml 3 Ml Vial SUBCUT QIDACHS [facility] Protocol Levothyroxine Sodium 25 mcg 12/28/20 09:00 Levothyroxine Sodium 25 Mcg Tablet PO DAILY [facility] Non-Formulary Medication 1 tab 12/28/20 09:00 Torsemide PO BID [facility] Ondansetron HCl 4 mg 12/28/20 01:07 Ondansetron Hcl 4 Mg/2 Ml Vial IVPUSH Q8H PRN Nausea and Vomiting Ropinirole HCl 0.5 mg 12/28/20 21:00 Ropinirole Hcl 0.5 Mg Tablet PO BEDTIME [facility] Senna 17.2 mg 12/28/20 01:07 Sennosides 8.6 Mg Tablet PO BEDTIME PRN Constipation Sodium Bicarbonate 650 mg 12/28/20 09:00 Sodium Bicarbonate 650 Mg Tablet PO BID [facility] Sodium Chloride 3 ml 12/28/20 08:00 0.9 % Sodium Chloride Flush 3 Ml Syringe IVFLUSH QSHIFT [facility] Home Medications Medication Instructions Recorded Confirmed Last Taken Type levothyroxine 25 mcg PO DAILY 07/31/20 12/28/20 Unknown History losartan 100 mg PO DAILY 07/31/20 12/28/20 Unknown History calcifediol [Rayaldee] 30 mcg PO DAILY 10/09/20 12/28/20 Unknown History insulin glargine [Lantus U-100 95 unit SUBCUT BID 10/09/20 12/28/20 Unknown History Insulin] alcohol swabs 0 pad TOPICAL BID 12/20/20 12/28/20 Unknown History lancets 28 gauge #100 ea 12/20/20 12/20/20 Unknown History losartan 1 tab PO DAILY 12/28/20 12/28/20 Unknown History nystatin 1 appful TOPICAL QID 12/28/20 12/28/20 Unknown History ropinirole 1 tab PO BEDTIME 12/28/20 12/28/20 Unknown History sulfamethoxazole-trimethoprim 1 tab PO BID 12/28/20 12/28/20 Unknown History torsemide 1 tab PO BID 12/28/20 12/28/20 Unknown History Physical Exam Vital Signs and Narrative: Vital Signs: Last Vital Signs Temp 99.2 F 12/27/20 19:33 Pulse 93 12/27/20 23:57 Resp 18 12/27/20 23:57 BP 173/71 H 12/27/20 23:57 Pulse Ox 97 12/27/20 23:57 Body Mass Index 62.4 Gen: Appears be in no acute distress HEENT: NCAT, Moist mucosa. Pulmonary: Vesicular breath sounds, fair air entry CVS: Normal S1-S2 Abdomen: BS+, Soft, Nontender Extremities: Warm well perfused Neuro: Alert and awake. Results Labs CBC and Chem 7: 12/29/20 05:20 12/29/20 05:20 Labs: Laboratory Results - last 24 hr 12/27/20 12/27/20 12/27/20 20:12 20:12 20:12 MCV 92.4 MCH 30.9 MCHC 33.4 RDW 13.4 Plt Count 328 MPV 9.9 Immature Gran % (Auto) 0.6 H Neut % (Auto) 87.8 H Lymph % (Auto) 8.3 L [place] % (Auto) 2.8 Eos % (Auto) 0.1 Baso % (Auto) 0.4 Lymph # (Auto) 1.2 [place] # (Auto) 0.4 Eos # (Auto) 0.0 Baso # (Auto) 0.1 Abs Immat Gran (auto) 0.08 H Absolute Neuts (auto) 12.1 H Absolute Nucleated RBC 0.000 Nucleated RBC % (auto) 0.0 Hold Blue Top SEE NOTE Anion Gap 17 Creatinine 2.50 H Estim Creat Clear Calc 38.9 Estimated GFR 20 POC Glucose Random Glucose 437 H* Calcium 8.5 D Total Bilirubin 0.4 Direct Bilirubin 0.2 AST 21 ALT 12 Alkaline Phosphatase 109 D Troponin I High Sens Total Protein 5.7 L D Albumin 2.4 L D Lipase 20 Urine Color Urine Appearance Urine pH Ur Specific [place] Urine Protein Urine Glucose (UA) Urine Ketones Urine Blood Urine Nitrite Ur Leukocyte Esterase Urine RBC Urine WBC Ur Squamous Epith Cells Urine Bacteria 12/27/20 12/27/20 12/27/20 20:12 21:05 21:09 MCV MCH MCHC RDW Plt Count MPV Immature Gran % (Auto) Neut % (Auto) Lymph % (Auto) [place] % (Auto) Eos % (Auto) Baso % (Auto) Lymph # (Auto) [place] # (Auto) Eos # (Auto) Baso # (Auto) Abs Immat Gran (auto) Absolute Neuts (auto) Absolute Nucleated RBC Nucleated RBC % (auto) Hold Blue Top Anion Gap 18 Creatinine Estim Creat Clear Calc Estimated GFR POC Glucose 408 H* Random Glucose Calcium Total Bilirubin Direct Bilirubin AST ALT Alkaline Phosphatase Troponin I High Sens 14.4 Total Protein Albumin Lipase Urine Color Urine Appearance Urine pH Ur Specific [place] Urine Protein Urine Glucose (UA) Urine Ketones Urine Blood Urine Nitrite Ur Leukocyte Esterase Urine RBC Urine WBC Ur Squamous Epith Cells Urine Bacteria 12/27/20 12/27/20 12/28/20 22:39 22:44 00:32 MCV MCH MCHC RDW Plt Count MPV Immature Gran % (Auto) Neut % (Auto) Lymph % (Auto) [place] % (Auto) Eos % (Auto) Baso % (Auto) Lymph # (Auto) [place] # (Auto) Eos # (Auto) Baso # (Auto) Abs Immat Gran (auto) Absolute Neuts (auto) Absolute Nucleated RBC Nucleated RBC % (auto) Hold Blue Top Anion Gap Creatinine Estim Creat Clear Calc Estimated GFR POC Glucose 376 H* 399 H* Random Glucose Calcium Total Bilirubin Direct Bilirubin AST ALT Alkaline Phosphatase Troponin I High Sens Total Protein Albumin Lipase Urine Color YELLOW Urine Appearance CLEAR Urine pH 7.0 Ur Specific [place] 1.015 Urine Protein 3+ H Urine Glucose (UA) 500 H Urine Ketones 5 Urine Blood 2+ H Urine Nitrite NEG Ur Leukocyte Esterase NEG Urine RBC 1-4 Urine WBC 0 Ur Squamous Epith Cells TRACE Urine Bacteria 1+ Imaging Radiologist's Impressions: Impressions Chest X-Ray 12/27/20 19:32 IMPRESSION: Unremarkable examination. Assessment and Plan (1) Acute hyperkalemia: Status: Acute 60-year-old female with a past medical history diabetes,, gastroparesis, chronic kidney disease presented to the hospital with a chief complaint of nausea/vomiting/poor oral intake. Noted to have hyperkalemia. Nausea/vomiting: Likely in the setting of gastritis versus gastroparesis. Will obtain a a GI motility study; gastroenterology consult; supportive care; IV fluids. NPO for now. Hyperkalemia: Patient was given Bactrim recently for UTI. Patient educated not to take Bactrim while on losartan infusion. Received calcium gluconate, insulin plus dextrose. Repeat BMP Hold losartan for now Acidosis: Likely metabolic. Received sodium bicarbonate. Nephrology consult. UTI: Patient was on Bactrim for the past few days. Patient still complains of urinary frequency and foul-smelling urine. Will obtain urine cultures. Keep the patient on ceftriaxone. Will also obtain a renal ultrasound. Chronic kidney disease: Patient's current creatinine is 2.5. Patient had even worse creatinine doing fair presentation. Avoid nephrotoxins Diabetes: Will give the patient on Lantus and insulin sliding scale. Follow fingerstick glucose. Adjust insulins as needed. DVT prophylaxis: SCD boots Code status: Full code
[2020-12-28 01:13] LABS: COVID-19 Test Negative (Negative); IDNOW Serial# 9DD0AD1C
[2020-12-28 01:27] LABS: Anion Gap 17 (12-20); Blood Urea Nitrogen 45 mg/dL (9-16); Calcium 8.8 mg/dL (8.4-10.2); Carbon Dioxide 17 mmol/L (22-29); Chloride 107 mmol/L (96-108); Creatinine Clr Calc Pharmacy 37.1; Estimated Glomerular Filt Rate 18; Glucose Random 494 mg/dL (60-115); Potassium 5.9 mmol/L (3.3-5.1); Sodium 135 mmol/L (135-145)
--- NOTE | 2020-12-28 03:54 | PC.NURSE ---
IV access that was in Right AC infiltrated. Arm noted to be swollen, with some bruising noted around IV site. IV access removed. This RN unable to obtain new IV access at this time, another RN attempting to find access. Pt to be medicated upon new IV insertion. aware. Continue to await admission bed assignment.
[2020-12-28] MEDS: Sodium Chloride 0.45 % 1,000 ML 80 ML IVCONT ×2 (04:02→14:37)
--- NOTE | 2020-12-28 04:11 | PC.NURSE ---
New 22g IV access established in right forearm.
[2020-12-28] MEDS: Insulin Lispro 100 UNIT/ML 3 ML VIAL 10 UNIT SUBCUT (04:35)
[2020-12-28] MEDS: cefTRIAXone sodium 1 GM in 0.9 % Sodium Chloride 50 ML IV (04:35)
--- NOTE | 2020-12-28 06:35 | PC.NURSE ---
Per hospitalist, updating diet status from NPO to Clear Liquid. Kitchen called and verbally ordered clear liquid/diabetic diet breakfast for patient. Preparing to medicate as ordered with PO medications.
[2020-12-28] MEDS: amLODIPine Besylate 2.5 MG TABLET PO (06:51)
[2020-12-28] MEDS: Levothyroxine Sodium 25 MCG TABLET PO (06:51)
--- NOTE | 2020-12-28 06:52 | PC.NURSE ---
Pt dry heaving after drinking small amount of diet gisela mallory. No vomit noted in emesis bag at this time. Will continue to monitor. Hospitalist aware.
[2020-12-28 07:08] LABS: MANUAL DIFF FLAG NO
[2020-12-28 07:11] LABS: Basophils Percent Auto 0.2 % (0-2); Hematocrit 41.1 % (37-47); Hemoglobin 13.5 g/dl (12.0-16.0); Imm Gran Abs Auto 0.07 X10*3/uL (0.00-0.03); Imm Gran Pct Auto 0.6 % (0.0-0.4); Lymphocytes Percent Auto 8.2 % (20-40); Mean Corpuscular HGB Conc 32.8 g/dl (31.0-35.0); Mean Corpuscular Hemoglobin 30.3 pg (27.0-33.0); Mean Corpuscular Volume 92.4 fL (80-98); Mean Platelet Volume 10.8 fL (9.4-12.3); Monocytes Absolute Auto 0.4 X10*3/uL (0.1-1.2); Monocytes Percent Auto 3.5 % (2-11); Neutrophils Absolute Auto 10.9 X10*3/uL (2.0-8.3); Neutrophils Percent Auto 87.5 % (45-73); Platelet Count 309 X10*3/uL (160-400); Red Blood Count 4.45 X10*6/uL (4.20-5.50); Red Cell Distribution Width 13.4 % (11.0-16.0); White Blood Count 12.5 X10*3/uL (4.8-10.8)
[2020-12-28 07:48] LABS: Glucose, Whole Blood 322 mg/dL (60-115)
[2020-12-28 07:49] LABS: Anion Gap 20 (12-20); Blood Urea Nitrogen 45 mg/dL (9-16); Calcium 8.6 mg/dL (8.4-10.2); Carbon Dioxide 13 mmol/L (22-29); Chloride 110 mmol/L (96-108); Creatinine Clr Calc Pharmacy 37.4; Estimated Glomerular Filt Rate 19; Glucose Random 447 mg/dL (60-115); Potassium 5.7 mmol/L (3.3-5.1); Sodium 137 mmol/L (135-145)
[2020-12-28] MEDS: Insulin Lispro 100 UNIT/ML 3 ML VIAL SUBCUT ×4 (07:50→21:41)
[2020-12-28 08:48] LABS: Glucose, Whole Blood 309 mg/dL (60-115)
[2020-12-28] MEDS: Insulin Glargine,Hum.rec.anlog 100 UNIT/ML 10 ML VIAL 70 UNIT SUBCUT ×2 (11:06→21:41)
[2020-12-28] MEDS: Sodium Bicarbonate 650 MG TABLET PO ×2 (11:07→21:41)
[2020-12-28] MEDS: amLODIPine Besylate 5 MG TABLET PO (11:07)
--- NOTE | 2020-12-28 12:07 | PC.NURSE ---
Kitchen called- placed order for diabetic, clear diet tray.
--- NOTE | 2020-12-28 12:15 | PC.NURSE ---
Dr. José aware of pts current status and vs
[2020-12-28 12:32] LABS: Glucose, Whole Blood 295 mg/dL (60-115)
--- NOTE | 2020-12-28 13:40 | PC.NURSE ---
Pt ate 100% of lunch tray. Denies complaints or needs at this time.
[2020-12-28] MEDS: Metoprolol Tartrate 25 MG TABLET PO ×2 (13:58→21:42)
[2020-12-28] MEDS: Sodium Polystyrene Sulfon/Sorb 15 GM/60 ML ORAL.SUSP 30 GM PO (13:58)
--- NOTE | 2020-12-28 15:13 | PC.NURSE ---
Per nuclear medicine pt is to be NPO starting Wednesday evening to Wednesday AM.
--- NOTE | 2020-12-28 15:48 | PC.NURSE ---
x1 call attempted to give report
[2020-12-28 16:48] LABS: Glucose, Whole Blood 252 mg/dL (60-115)
[2020-12-28 17:35] LABS: Glucose, Whole Blood 225 mg/dL (60-115)
--- NOTE | 2020-12-28 17:39 | PM.EVENT ---
Event Note Date of Service: 12/28/20 Event Note: GI Consult-Full note dictated Imp: 60 yo female with multiple medical issues presenting with some slight upper abdominal pain, 4 days of N/V, and 1 day of diarrhea. She had been feeling fairly well from a GI standpoint before that. She had a fairly unremarkable EGD in 07/[address] Spencer and a normal nuclear medicine gastric emptying study after that. She denies any signs of bleeding or jaundice. She is on a chronic PPI. She has currently been on Bactrim for a UTI. She had Cdiff in 09/2020. She reports feeling a little better and denies any vomiting today. Her abdominal exam is presently benign. Her LFT's and lipase are normal, but her blood sugars and potassium were quite elevated. She had a neg CT of abdomen in 09/2020. Rec: Check gallbladder U/S re: possibility of gallstones due to her upper abdominal discomfort and the fact that [place] [facility] [place] Hold repeat GES given the normal exam in 07/2020. Check stool for Cdiff. Continue her PPI. Supportive care and advance diet as tolerated. D/W patient. Thanks.
[2020-12-28] MEDS: Omeprazole 20 MG CAPSULE.DR PO (17:45)
--- NOTE | 2020-12-28 18:51 | CONS_ITS ---
DATE OF SERVICE: 12/28/2020 REASON FOR CONSULTATION: Nausea, vomiting, diarrhea, and abdominal pain. HISTORY OF PRESENT ILLNESS: This has been obtained from the patient and the medical record. The patient is a 60-year-old female with multiple underlying medical problems including obesity, insulin-dependent diabetes mellitus, hypertension, and renal insufficiency, who presents with at least several days of nausea and vomiting. During this time, she was having some mild right upper quadrant and epigastric discomfort, but nothing particularly severe. She began having some diarrhea today. During this time, she never noticed any hematochezia, melena, hematemesis, nor coffee-grounds emesis. She denies any associated jaundice nor fever. She does have history of reflux, for which she is on a chronic PPI. She did have an upper endoscopy in July [address] Spencer on the finding of some duodenitis and gastritis, but with gastric biopsies negative for H pylori. There was no significant esophagitis. She also had a normal nuclear medicine gastric emptying study in July 2020 as well. The patient reports that prior to the past few days when she became ill, she was feeling fairly well from a GI standpoint. She denies any chronic episodes of vomiting. She reports that her bowel movements are usually fairly regular. She did have a history of C difficile in September. She does report that she has been currently on a course of Bactrim for UTI. She currently reports that she is feeling somewhat better and has had no vomiting today. She thinks she would like to try some liquids. MEDICATIONS: Her medications at home included acetaminophen, albuterol inhaler, amlodipine, insulin, levothyroxine, torsemide, Zofran, ropinirole, senna, levothyroxine, losartan, omeprazole, and Bactrim. PAST MEDICAL HISTORY: Insulin-dependent diabetes mellitus. Hypertension. Obesity. Renal insufficiency. Hypertension. She denies any history of [place] nor stroke. She reports that her only surgery is a tubal ligation. FAMILY HISTORY: Noncontributory. SOCIAL HISTORY: She is single and lives by herself. She denies tobacco nor alcohol. REVIEW OF SYSTEMS: CONSTITUTIONAL: Up until the past few days, she reports that she was feeling fairly well from a GI standpoint. CARDIAC: No chest pain. PULMONARY: No coughing. No hemoptysis. GASTROINTESTINAL: As above. URINARY: She has had symptoms of a UTI with some dysuria and is on the above mentioned Bactrim. PHYSICAL EXAMINATION: GENERAL: The patient is a pleasant, alert, comfortable-appearing female, in no distress. SKIN: Warm and dry. HEENT: Anicteric sclerae. NECK: Supple. CARDIAC: Normal S1 and S2. ABDOMEN: Soft, nondistended. Normal bowel sounds and nontender. LABORATORY DATA: White blood cell count was 13.8 yesterday and 12.5 today. Hemoglobin 13.5, platelets 309,000. Sodium 137, potassium 5.7, chloride 110, CO2 of 13, BUN 45, creatinine 2.6, blood sugar 447. Her admitting labs from yesterday showed potassium 7.1, BUN 46, creatinine 2.5, and blood sugar 437. Liver profile on admission was completely normal, as was a lipase. Her only imaging of the abdomen was a renal ultrasound from today, which showed a limited exam and a cyst in the left kidney. Chest x-ray was unremarkable. The last imaging of the abdomen was a CAT scan in September that described a small amount of pelvic and abdominal fluid, a right renal stone, but no hydronephrosis. IMPRESSION: Overall, the patient appears to be doing fairly well at the present time and her abdominal exam is benign. Her symptoms of the vomiting and subsequent diarrhea may represent some type of gastroenteritis or possibly some antibiotic associated symptoms since she is currently on Bactrim. Given the recent history of C diff in September, I would recommend repeating that to be sure she does not have another C difficile infection. In reviewing her records, both in the current computer system and the older computer system, she has never had abdominal ultrasound and I would recommend that be done here to check for gallstones, even though the CAT scans did not show any sign of cholelithiasis. In the meantime, I would continue supportive care and advance her diet as tolerated given her current benign abdominal exam. I did see that she has ordered for a repeat gastric emptying study in nuclear Medicine, but I would hold off on that given the normal exam just several months ago in July. I will continue her outpatient PPI. At this point, I do not think any type of endoscopy needs to be considered unless she continues to have frequent episodes of vomiting. However, given the fairly unremarkable exam in July, I think a repeat upper endoscopy would not be required at this time. This has all been discussed with the patient. Thank you for this consultation. MD WILLIE Conteh/MAX / [id number]
[2020-12-28 19:33] LABS: CDIFF Ag Positive (Negative); CDIFF Internal ctrl Dots and bkg OK (V); CDiff Toxin Negative (Negative)
--- NOTE | 2020-12-28 20:41 | CONS_ITS ---
DATE OF SERVICE: REASON FOR CONSULTATION: I was called to see this patient to assist in the management of acute kidney injury and hyperkalemia. HISTORY OF PRESENT ILLNESS: To summarize, Isabel is well known to us. She is a 60-year-old woman with a history of longstanding hypertension, diabetes mellitus, chronic kidney disease with gastroparesis and obesity. She was recently diagnosed with UTI and started on Bactrim Double Strength 1 tab b.i.d. She was already on losartan. She comes to the hospital because of nausea and vomiting and was found to have acute kidney injury with a BUN of 45, creatinine 2.62. She was hyperkalemic with potassium of 6.6. Bactrim has been discontinued. She was given Kayexalate. Potassium was decreased to 5.7 and the serum creatinine was 2.6, and hence this consultation. The blood sugar was also around 400 mg on admission. PAST MEDICAL HISTORY: Ongoing medical problems include history of chronic kidney disease stage 3, hypertension, diabetes mellitus, obesity. FAMILY HISTORY: Significant for diabetes mellitus. PAST SURGICAL HISTORY: Significant for tubal ligation. SOCIAL HISTORY: No history of smoking or alcohol abuse. ALLERGIES: SHE IS ALLERGIC TO METFORMIN AND INVOKANA. MEDICATIONS: At the time of admission included levothyroxine, losartan 100 mg, calcifediol, insulin, nystatin, ropinirole, Bactrim 1 tab b.i.d., and torsemide b.i.d. REVIEW OF SYSTEMS: Positive for nausea and vomiting, which is improving. No headache, nausea, or vomiting. No chest pain. No polyuria or polydipsia. No diarrhea or constipation. No chest pain. All other systems were reviewed and negative. PHYSICAL EXAMINATION: GENERAL: Isabel is a 60-year-old woman with a history of chronic kidney disease, now admitted with acute kidney injury, most likely due to the combination of Bactrim and losartan. She was also hyperkalemic again, this is most likely due to tubular inhibition of potassium secretion by Bactrim. RECOMMENDATIONS: My recommendation will be to obtain a spot urine for sodium, creatinine, and protein. I would hold losartan. Stop Bactrim. I agree with IV hydration. Would use half-normal saline with 2 amps of sodium bicarbonate to correct the acidosis. Optimize the blood sugar and Na and K should improve as well. Keep her on a low-potassium diet and use Kayexalate as needed. There is no indication for dialysis. Renal function should return to baseline. We will follow her closely with the team. Loy Marquez MD BPA/MODL / [id number] MTDD
[2020-12-28 21:29] LABS: Glucose, Whole Blood 185 mg/dL (60-115)
[2020-12-28] MEDS: rOPINIRole HCL 0.5 MG TABLET PO (21:41)
[2020-12-29] VITALS (11 sets, daily range): BP systolic 105–189; BP diastolic 61–84; PULSE 61–73; RESP 18–22; TEMP 35.9–36.8; O2SAT 98–99
--- NOTE | 2020-12-29 | ECG_ITS ---
Test Reason : chest pain Blood Pressure : / mmHG Vent. Rate : 068 BPM Atrial Rate : 068 BPM P-R Int : 136 ms QRS Dur : 094 ms QT Int : 446 ms P-R-T Axes : 035 -37 020 degrees QTc Int : 474 ms Normal sinus rhythm Left axis deviation Borderline ECG When compared to the previous EKG of 27 december 2020, no significant change Referred By: Edith Moreno Electronically Signed By:DIXIE GAITAN
--- NOTE | 2020-12-29 | ECG_ITS ---
Test Reason : chest pain Blood Pressure : / mmHG Vent. Rate : 066 BPM Atrial Rate : 066 BPM P-R Int : 112 ms QRS Dur : 088 ms QT Int : 430 ms P-R-T Axes : 000 -38 037 degrees QTc Int : 450 ms Normal sinus rhythm Left axis deviation Borderline ECG Abnormal ECG When compared to the previous EKG of 29 dec 2020, no significant change Referred By: Jorge Logan Electronically Signed By:DIXIE GAITAN
[2020-12-29] MEDS: amLODIPine Besylate 2.5 MG TABLET PO (00:33)
[2020-12-29] MEDS: cefTRIAXone sodium 1 GM in 0.9 % Sodium Chloride 50 ML IV (02:14)
[2020-12-29] MEDS: Sodium Chloride 0.45 % 1,000 ML 80 ML IVCONT ×2 (02:16→16:24)
[2020-12-29] MEDS: Levothyroxine Sodium 25 MCG TABLET PO (05:53)
[2020-12-29] MEDS: Omeprazole 20 MG CAPSULE.DR PO (05:53)
[2020-12-29 06:14] LABS: Glucose, Whole Blood 66 mg/dL (60-115)
[2020-12-29 06:24] LABS: Glucose, Whole Blood 73 mg/dL (60-115)
--- NOTE | 2020-12-29 06:25 | PC.NURSE ---
Pt stated she is feeling sweaty. Poc checked, 66. Juice and jello provided as patient is on clear liquid diet. Poc rechecked, 73. Pt states she is feeling less sweaty, denies any other hypoglycemic symptoms.
[2020-12-29 06:26] LABS: Basophils Absolute Auto 0.1 X10*3/uL (0.0-0.2); Basophils Percent Auto 0.5 % (0-2); Creatinine Clr Calc Pharmacy 39.1; Eosinophils Absolute Auto 0.2 X10*3/uL (0.0-0.4); Eosinophils Percent Auto 1.1 % (0-4); Estimated Glomerular Filt Rate 20; Hematocrit 33.6 % (37-47); Hemoglobin 11.2 g/dl (12.0-16.0); Imm Gran Abs Auto 0.06 X10*3/uL (0.00-0.03); Imm Gran Pct Auto 0.3 % (0.0-0.4); Lymphocytes Absolute Auto 5.4 X10*3/uL (1.2-4.9); MANUAL DIFF FLAG SCAN; Mean Corpuscular HGB Conc 33.3 g/dl (31.0-35.0); Mean Corpuscular Hemoglobin 30.6 pg (27.0-33.0); Mean Corpuscular Volume 91.8 fL (80-98); Mean Platelet Volume 10.8 fL (9.4-12.3); Monocytes Absolute Auto 1.4 X10*3/uL (0.1-1.2); Monocytes Percent Auto 7.6 % (2-11); Neutrophils Absolute Auto 10.8 X10*3/uL (2.0-8.3); Neutrophils Percent Auto 60.5 % (45-73); Platelet Count 347 X10*3/uL (160-400); Red Blood Count 3.66 X10*6/uL (4.20-5.50); Red Cell Distribution Width 13.5 % (11.0-16.0); SCAN SMEAR FLAG 1; White Blood Count 17.8 X10*3/uL (4.8-10.8)
[2020-12-29 06:27] LABS: Anion Gap 12 (12-20); Blood Urea Nitrogen 45 mg/dL (9-16); Calcium 7.9 mg/dL (8.4-10.2); Carbon Dioxide 20 mmol/L (22-29); Chloride 110 mmol/L (96-108); Glucose Fasting 53 mg/dL (60-99); Potassium 3.8 mmol/L (3.3-5.1); Sodium 138 mmol/L (135-145)
[2020-12-29 06:41] LABS: SLIDE REVIEW VERIFIED
[2020-12-29 07:34] LABS: Glucose, Whole Blood 104 mg/dL (60-115)
[2020-12-29] MEDS: Metoprolol Tartrate 25 MG TABLET PO ×2 (07:38→21:20)
[2020-12-29] MEDS: amLODIPine Besylate 5 MG TABLET PO (07:38)
[2020-12-29] MEDS: Sodium Bicarbonate 650 MG TABLET PO ×2 (07:38→21:20)
[2020-12-29 08:14] LABS: CDiff Gene PCR NEGATIVE (Negative)
--- NOTE | 2020-12-29 09:45 | MHC.CM.PN ---
Lives alone in second floor apartment; has elevator access. Has [facility] for nursing services as well as 37.5 hours per day of [facility] SPECIALIST services through [facility]. [facility] for [facility] services D/T [facility], however consulted w/team and redirected her that [facility] providing transport services for bariatric MD appointments through pandemic. She can set up own MD appointments w/[facility] going forward. Plan is home w/prior services, will need ambulance services D/T weight (over 400 pounds).
--- NOTE | 2020-12-29 09:52 | MHC.CM.PN ---
IMM 12/29/20.
--- NOTE | 2020-12-29 10:06 | HO.PM.IMPN ---
Subjective Subjective Date of Service: 12/29/20 <Edith Moreno NP - Last Filed: 12/29/20 10:25> 12/29/20 <Lewis José MD - Last Filed: 12/29/20 12:55> Interval History: Follow up abdominal pain, diarrhea. No diarrhea today, appetite ok able to eat cream of wheat. <Edith Moreno NP - Last Filed: 12/29/20 10:25> Physical Exam Vital Signs: Vital Signs: Last Vital Signs Temp 96.6 F L 12/29/20 07:23 Pulse 62 12/29/20 07:38 Resp 22 H 12/29/20 07:23 BP 141/66 H 12/29/20 07:38 Pulse Ox 98 12/29/20 07:23 Body Mass Index 62.4 <Edith Moreno NP - Last Filed: 12/29/20 10:25> Appearing in no acute distress lung sounds are clear to auscultation heart regular rate rhythm, clear S1, S2 positive bowel sounds, abdomen nontender, obese neuro patient is alert x3, no focal deficits <Edith Moreno NP - Last Filed: 12/29/20 10:25> Objective Data Current Medications Generic Name Dose Route Start Last Admin Trade Name Freq PRN Reason Stop Dose Admin Acetaminophen 650 mg 12/28/20 01:07 Acetaminophen 325 Mg Tablet PO Q6H PRN Pain, Mild (Pain Scale 1-3) Acetaminophen 650 mg 12/28/20 01:10 Acetaminophen 325 Mg Tablet PO Q6H PRN pain Albuterol Sulfate 2 puff 12/28/20 01:10 Albuterol Sulfate 90 Mcg 8 Gm Inhaler INHALE Q4H PRN bronchospasm Amlodipine Besylate 5 mg 12/28/20 09:00 12/29/20 07:38 Amlodipine Besylate 5 Mg Tablet PO 5 mg DAILY K[facility]RE[facility] Administration Protocol Ceftriaxone Sodium 1 gm/ 50 mls @ 100 mls/hr 12/28/20 01:45 12/29/20 03:11 Sodium Chloride IV Infused Q24H KENTRE[facility] Infusion Sodium Chloride 1,000 mls @ 80 mls/hr 12/28/20 02:00 12/29/20 02:16 IVCONT 80 mls/hr .[id number] KENTRELL Administration Insulin Glargine 70 unit 12/28/20 09:00 12/29/20 09:18 Insulin Glargine,Hum.Rec.Anlog 100 Unit/Ml 10 Ml Vial SUBCUT Not Given BID [facility] Insulin Human Lispro 0 unit 12/28/20 07:30 12/29/20 07:07 Insulin Lispro 100 Unit/Ml 3 Ml Vial SUBCUT Not Given QIDACHS [facility] Protocol Levothyroxine Sodium 25 mcg 12/28/20 06:30 12/29/20 05:53 Levothyroxine Sodium 25 Mcg Tablet PO 25 mcg DAILY@0630 [facility] Administration Metoprolol Tartrate 25 mg 12/28/20 13:40 12/29/20 07:38 Metoprolol Tartrate 25 Mg Tablet PO 25 mg BID [facility] Administration Protocol Non-Formulary Medication 1 tab 12/28/20 09:00 Torsemide PO BID [facility] Omeprazole 20 mg 12/28/20 17:45 12/29/20 05:53 Omeprazole 20 Mg Capsule.Dr PO 20 mg DAILY@0630 [facility] Administration Ondansetron HCl 4 mg 12/28/20 01:07 Ondansetron Hcl 4 Mg/2 Ml Vial IVPUSH Q8H PRN Nausea and Vomiting Ropinirole HCl 0.5 mg 12/28/20 21:00 12/28/20 21:41 Ropinirole Hcl 0.5 Mg Tablet PO 0.5 mg BEDTIME [facility] Administration Senna 17.2 mg 12/28/20 01:07 Sennosides 8.6 Mg Tablet PO BEDTIME PRN Constipation Sodium Bicarbonate 650 mg 12/28/20 09:00 12/29/20 07:38 Sodium Bicarbonate 650 Mg Tablet PO 650 mg BID [facility] Administration Sodium Chloride 3 ml 12/28/20 08:00 12/29/20 07:39 0.9 % Sodium Chloride Flush 3 Ml Syringe IVFLUSH Not Given QSHIFT [facility] Vancomycin HCl 125 mg 12/29/20 10:15 Vancomycin Hcl 125 Mg Capsule PO Q6H [facility] <Edith Moreno NP - Last Filed: 12/29/20 10:25> Labs CBC & Chem 7: : 12/29/20 05:20 12/29/20 05:20 <Edith Moreno NP - Last Filed: 12/29/20 10:25> Assessment and Plan (1) Acute kidney injury superimposed on CKD: Status: Acute <Edith Moreno NP - Last Filed: 12/29/20 10:25> Assessment and Plan: 60-year-old female with a past medical history diabetes, gastroparesis, chronic kidney disease presented to the hospital with a chief complaint of nausea/vomiting/poor oral intake. Noted to have hyperkalemia. Gastritis versus gastroparesis. GES normal in 2019, cdiff 09/2020. On bactrim for UTI. no further vomiting or diarrhea -seen and examined by GI, no need for GES or endo at this time. -abd us to assess for the presence of gallstones. -CDIFF antigen pos, toxin neg. will treat empirically with oral vanco until PCR returns -PPI Acidosis. Improving. Likely metabolic. Received sodium bicarbonate. -seen and examined by nephrology -half normal saline, on oral bicarb Chronic kidney disease. Patient's current creatinine is 2.5. Patient had even worse creatinine doing fair presentation. -urine sodium, creat and protein pending -avoid nephrotoxins -stop losartan as per neophrology UTI. Chronic. Patient was on Bactrim for the past few days. Patient still complains of urinary frequency and foul-smelling urine. Will obtain urine cultures. -stop bactrim, start Rocephin -renal us no hydro or mass -follow cx Hyperkalemia. Resolved. Patient was given Bactrim recently for UTI. Patient educated not to take Bactrim while on losartan infusion. Received calcium gluconate, insulin plus dextrose. -Follow BMP -lostartan stopped Diabetes. hypoglycemic this morning. on lantus BID -decrease lantus to daily in the morning -sliding scale Obesity. BMI 62.5 -Discussed the importance of weight loss as obesity may contribute to worsening of other comorbid conditions. DVT prophylaxis: SCD boots Attendign: Dr. José <Edith Moreno NP - Last Filed: 12/29/20 10:25> (2) Acute kidney injury: Status: Acute <Edith Moreno NP - Last Filed: 12/29/20 10:25> (3) Diabetes mellitus: Problem details: 20 min reviewing chart evaluating patient and documenting <Edith Moreno NP - Last Filed: 12/29/20 10:25> Status: Acute <Edith Moreno NP - Last Filed: 12/29/20 10:25> (4) Hypothyroidism: Status: Acute <Edith Moreno NP - Last Filed: 12/29/20 10:25> Assessment and Plan: Seen in conjunction with [facility] provider, I agree with assessment and plan as outlined above <Lewis José MD - Last Filed: 12/29/20 12:55>
[2020-12-29 10:52] LABS: Glucose Urine UA 250 MG/DL (NEG); Leukocyte Esterase Urine NEG (NEG); Nitrite Urine NEG (NEG); PH 6.5 (5.0-8.0); Urine Blood 2+ (NEG); Urine Ketones NEG (NEG); Urine Protein 3+ MG/DL (NEG-TRACE)
[2020-12-29 10:53] LABS: Appearance Urine HAZY; Color Urine YELLOW
[2020-12-29 11:03] LABS: Bacteria Urine 1+ /LPF; Squamous Epithelial Cell Urine 1+ /LPF
[2020-12-29 11:04] LABS: UACC CULT YES
[2020-12-29 11:06] LABS: Creatinine Urine 72.45 mg/dL
[2020-12-29] MEDS: vancomycin HCL 125 MG CAPSULE PO ×2 (11:12→21:20)
[2020-12-29] MEDS: ondansetron HCL 4 MG/2 ML VIAL IVPUSH (11:31)
--- NOTE | 2020-12-29 11:40 | PC.NURSE ---
Pt became nauseous with a headache, right sided CP and manual BP of 172/84 / HR 82. This RN administered PRN Zofran and made Edith Moreno aware.
[2020-12-29 11:44] LABS: Glucose, Whole Blood 119 mg/dL (60-115)
[2020-12-29 12:43] LABS: Troponin-I High Sensitivity 19.9 ng/L (<3.5-17.0)
[2020-12-29 16:15] LABS: Glucose, Whole Blood 112 mg/dL (60-115)
[2020-12-29] MEDS: Metoclopramide HCl 10 MG/2 ML VIAL 5 MG IVPUSH (16:55)
--- NOTE | 2020-12-29 18:55 | PM.PNNEP ---
Subjective Subjective Date of Service: 01/05/21 Interval history: Events noted Feels better Physical Exam Vital Signs: Vital Signs: Last Vital Signs Temp 98.0 F 12/29/20 15:30 Pulse 73 12/29/20 15:30 Resp 19 12/29/20 15:30 BP 180/84 H 12/29/20 15:30 Pulse Ox 99 12/29/20 15:30 Body Mass Index 62.4 Const: General: cooperative Neck: Neck: Yes supple Cardio: Jugular venous distension: no JVD Palpation: no palpable S3 GI: Inspection: Yes obesity Palpation (GI): Soft to palpation Skin: General skin exam: no rashes or lesions noted Neuro: Motor exam (neuro): no asterixis Objective Data Labs CBC & Chem 7: 12/30/20 04:24 12/30/20 04:24 Labs: Laboratory Results - last 24 hr 12/28/20 12/28/20 12/29/20 18:35 21:25 05:20 WBC 17.8 H RBC 3.66 L Hgb 11.2 L Hct 33.6 L MCV 91.8 MCH 30.6 MCHC 33.3 RDW 13.5 Plt Count 347 MPV 10.8 Immature Gran % (Auto) 0.3 Neut % (Auto) 60.5 Lymph % (Auto) 30.0 [place] % (Auto) 7.6 Eos % (Auto) 1.1 Baso % (Auto) 0.5 Lymph # (Auto) 5.4 H [place] # (Auto) 1.4 H Eos # (Auto) 0.2 Baso # (Auto) 0.1 Abs Immat Gran (auto) 0.06 H Absolute Neuts (auto) 10.8 H Absolute Nucleated RBC 0.000 Nucleated RBC % (auto) 0.0 Smear Tech's Comments VERIFIED Sodium Potassium Chloride Carbon Dioxide Anion Gap BUN Creatinine Estim Creat Clear Calc Estimated GFR POC Glucose 185 H Fasting Glucose Calcium Troponin I High Sens Urine Color Urine Appearance Urine pH Ur Specific Reading Urine Protein Urine Glucose (UA) Urine Ketones Urine Blood Urine Nitrite Ur Leukocyte Esterase Urine RBC Urine WBC Ur Squamous Epith Cells Urine Bacteria Ur Random Sodium Urine Creatinine C. difficile Tox B Gene NEGATIVE C. difficile Toxin A&B Negative C. difficile Antigen Positive A C. difficile Interpret PCR to be performed 12/29/20 12/29/20 12/29/20 05:20 06:04 06:20 WBC RBC Hgb Hct MCV MCH MCHC RDW Plt Count MPV Immature Gran % (Auto) Neut % (Auto) Lymph % (Auto) [place] % (Auto) Eos % (Auto) Baso % (Auto) Lymph # (Auto) [place] # (Auto) Eos # (Auto) Baso # (Auto) Abs Immat Gran (auto) Absolute Neuts (auto) Absolute Nucleated RBC Nucleated RBC % (auto) Smear Tech's Comments Sodium 138 Potassium 3.8 D Chloride 110 H Carbon Dioxide 20 L Anion Gap 12 BUN 45 H Creatinine 2.49 H Estim Creat Clear Calc 39.1 Estimated GFR 20 POC Glucose 66 73 Fasting Glucose 53 L* Calcium 7.9 L D Troponin I High Sens Urine Color Urine Appearance Urine pH Ur Specific Reading Urine Protein Urine Glucose (UA) Urine Ketones Urine Blood Urine Nitrite Ur Leukocyte Esterase Urine RBC Urine WBC Ur Squamous Epith Cells Urine Bacteria Ur Random Sodium Urine Creatinine C. difficile Tox B Gene C. difficile Toxin A&B C. difficile Antigen C. difficile Interpret 12/29/20 12/29/20 12/29/20 07:00 10:40 10:40 WBC RBC Hgb Hct MCV MCH MCHC RDW Plt Count MPV Immature Gran % (Auto) Neut % (Auto) Lymph % (Auto) [place] % (Auto) Eos % (Auto) Baso % (Auto) Lymph # (Auto) [place] # (Auto) Eos # (Auto) Baso # (Auto) Abs Immat Gran (auto) Absolute Neuts (auto) Absolute Nucleated RBC Nucleated RBC % (auto) Smear Tech's Comments Sodium Potassium Chloride Carbon Dioxide Anion Gap BUN Creatinine Estim Creat Clear Calc Estimated GFR POC Glucose 104 Fasting Glucose Calcium Troponin I High Sens Urine Color YELLOW Urine Appearance HAZY Urine pH 6.5 Ur Specific Reading 1.020 Urine Protein 3+ H Urine Glucose (UA) 250 H Urine Ketones NEG Urine Blood 2+ H Urine Nitrite NEG Ur Leukocyte Esterase NEG Urine RBC 10-14 H Urine WBC 10-14 H Ur Squamous Epith Cells 1+ Urine Bacteria 1+ Ur Random Sodium 50.0 Urine Creatinine 72.45 C. difficile Tox B Gene C. difficile Toxin A&B C. difficile Antigen C. difficile Interpret 12/29/20 12/29/20 12/29/20 11:23 11:53 16:11 WBC RBC Hgb Hct MCV MCH MCHC RDW Plt Count MPV Immature Gran % (Auto) Neut % (Auto) Lymph % (Auto) [place] % (Auto) Eos % (Auto) Baso % (Auto) Lymph # (Auto) [place] # (Auto) Eos # (Auto) Baso # (Auto) Abs Immat Gran (auto) Absolute Neuts (auto) Absolute Nucleated RBC Nucleated RBC % (auto) Smear Tech's Comments Sodium Potassium Chloride Carbon Dioxide Anion Gap BUN Creatinine Estim Creat Clear Calc Estimated GFR POC Glucose 119 H 112 Fasting Glucose Calcium Troponin I High Sens 19.9 H Urine Color Urine Appearance Urine pH Ur Specific Reading Urine Protein Urine Glucose (UA) Urine Ketones Urine Blood Urine Nitrite Ur Leukocyte Esterase Urine RBC Urine WBC Ur Squamous Epith Cells Urine Bacteria Ur Random Sodium Urine Creatinine C. difficile Tox B Gene C. difficile Toxin A&B C. difficile Antigen C. difficile Interpret Assessment & Plan Assessment and plan (1) Acute kidney injury: Problem details: 1. RASHEEDA vs adv CKD: based on SCr it appaers her bsl SCr is 2.5 range and suspect she has adv DKD 2. HyperK: controlled 3. DM REC: cont to track renal func; avoid NToxins; sero as ordered re eval of CKD Status: Acute (2) Essential hypertension: Status: Acute Time Spent With Patient Time: Total time spent is greater than 50% in coordination of care (as documented) at patient's floor/unit and/or counseling patient:
[2020-12-29 20:33] LABS: Troponin-I High Sensitivity 56.7 ng/L (<3.5-17.0)
[2020-12-29 20:38] LABS: Glucose, Whole Blood 113 mg/dL (60-115)
--- NOTE | 2020-12-29 20:46 | PM.EVENT ---
Event Note Date of Service: 12/29/20 Event Note: Chest pain: Patient complained of chest pain. Also complained of chest pain in the afternoon. EKG nonischemic. Troponins 19-56 Notified Cardiology, no acute intervention. Echocardiogram
[2020-12-29] MEDS: Torsemide 20 MG TABLET 100 MG PO (21:20)
[2020-12-29] MEDS: rOPINIRole HCL 0.5 MG TABLET PO (21:20)
[2020-12-29] MEDS: Nitroglycerin 0.4 MG TAB.SUBL SUBLINGUAL (22:44)
[2020-12-29 23:43] LABS: Troponin-I High Sensitivity 74.1 ng/L (<3.5-17.0)
--- NOTE | 2020-12-30 | ECG_ITS ---
Test Reason : ELEV TROPONINS Blood Pressure : / mmHG Vent. Rate : 058 BPM Atrial Rate : 058 BPM P-R Int : 138 ms QRS Dur : 092 ms QT Int : 456 ms P-R-T Axes : -06 -31 026 degrees QTc Int : 447 ms Sinus bradycardia Left axis deviation Abnormal ECG When compared with ECG of 29-DEC-2020 20:49, No significant changes seen Referred By: Edith Moreno Electronically Signed By:DIXIE GAITAN
[2020-12-30] MEDS: cefTRIAXone sodium 1 GM in 0.9 % Sodium Chloride 50 ML IV (02:06)
[2020-12-30 04:00] VITALS: BP 123/58; PULSE 54; RESP 20; TEMP 36.6; O2SAT 99
[2020-12-30] MEDS: vancomycin HCL 125 MG CAPSULE PO ×4 (04:21→21:44)
[2020-12-30] MEDS: Sodium Chloride 0.45 % 1,000 ML 80 ML IVCONT (04:23)
[2020-12-30 05:02] LABS: MANUAL DIFF FLAG NO
[2020-12-30 05:07] LABS: Basophils Absolute Auto 0.1 X10*3/uL (0.0-0.2); Basophils Percent Auto 0.5 % (0-2); Eosinophils Absolute Auto 0.2 X10*3/uL (0.0-0.4); Eosinophils Percent Auto 1.8 % (0-4); Hematocrit 34.9 % (37-47); Hemoglobin 11.2 g/dl (12.0-16.0); Imm Gran Abs Auto 0.06 X10*3/uL (0.00-0.03); Imm Gran Pct Auto 0.5 % (0.0-0.4); Lymphocytes Absolute Auto 4.7 X10*3/uL (1.2-4.9); Lymphocytes Percent Auto 35.9 % (20-40); Mean Corpuscular HGB Conc 32.1 g/dl (31.0-35.0); Mean Corpuscular Hemoglobin 29.9 pg (27.0-33.0); Mean Corpuscular Volume 93.1 fL (80-98); Mean Platelet Volume 9.9 fL (9.4-12.3); Monocytes Absolute Auto 1.1 X10*3/uL (0.1-1.2); Monocytes Percent Auto 8.2 % (2-11); Neutrophils Absolute Auto 6.9 X10*3/uL (2.0-8.3); Neutrophils Percent Auto 53.1 % (45-73); Platelet Count 322 X10*3/uL (160-400); Red Blood Count 3.75 X10*6/uL (4.20-5.50); Red Cell Distribution Width 13.2 % (11.0-16.0)
[2020-12-30 05:34] LABS: Anion Gap 11 (12-20); Blood Urea Nitrogen 44 mg/dL (9-16); Calcium 7.5 mg/dL (8.4-10.2); Carbon Dioxide 23 mmol/L (22-29); Chloride 106 mmol/L (96-108); Creatinine Clr Calc Pharmacy 38.2; Estimated Glomerular Filt Rate 19; Glucose Random 65 mg/dL (60-115); Potassium 4.1 mmol/L (3.3-5.1); Sodium 136 mmol/L (135-145)
[2020-12-30] MEDS: Omeprazole 20 MG CAPSULE.DR PO (06:24)
[2020-12-30] MEDS: Levothyroxine Sodium 25 MCG TABLET PO (06:24)
[2020-12-30 07:34] LABS: Glucose, Whole Blood 71 mg/dL (60-115)
[2020-12-30 07:49] VITALS: BP 110/56; PULSE 62; RESP 20; TEMP 36.8; O2SAT 98
--- NOTE | 2020-12-30 08:30 | CA_ITS ---
Transthoracic Echocardiogram Patient (Last, First, Middle): Isabel Carcamo, Gender: Female Date of : 1960 Age: 60 Procedure Date: 12/30/2020 Procedure Type: Transthoracic Echocardiogram Location: [facility] [place] Height: 160.02 cm Weight: 181.44 kg BSA: 2.60 m2 Heart Rate: bpm BP: 83 / 36 mmHg Cuff Setter Lockstitch: Referring MD: Jorge Logan MD Symptoms: chest pain Study Quality: Fair ECG Rhythm: Sinus Conclusions: - The left ventricular systolic function is normal. The visually estimated ejection fraction is between 60-65%. - There is mild calcification of the aortic valve. - No obvious valvular pathology seen on this study. Findings Left Ventricle Normal left ventricular cavity size. There is moderately increased left ventricular wall thickness. The left ventricular systolic function is normal. The visually estimated ejection fraction is between 60-65%. There is no evidence of regional wall motion abnormalities. E/E prime ratio is <8, consistent with normal filling pressures. Evidence suggests grade I (mild) diastolic dysfunction. Right Ventricle Normal right ventricular cavity size and systolic function. Atria The left atrium is mildly dilated. The right atrium is normal in size. Aortic Valve There is a normal trileaflet aortic valve. There is mild calcification of the aortic valve. There is no aortic valve stenosis. There is mild aortic valve regurgitation. Mitral Valve The mitral valve appears normal. There is no mitral valve regurgitation. There is no mitral valve stenosis. Pulmonic Valve The pulmonic valve was not well visualized. Tricuspid Valve Normal tricuspid valve structure. There is trace tricuspid valve regurgitation. The pulmonary artery systolic pressure is normal. Great Vessels The aortic annulus, sinuses of valsalva, and asc aorta are normal in size. Venous The inferior vena cava is normal in size and collapses greater than 50% with inspiration. Pericardium/Pleural There is a trivial pericardial effusion. Prior Study Comparison No significant change compared to prior study dated: 07/25/2018. Recommendations, Care & Conclusions No obvious valvular pathology seen on this study. Measurements 2D Linear Measurements IVSd: 1.41 0.6-0.9/0.6-1.0 cm LVIDd: 4.94 3.9-5.3/4.2-5.9 cm LVIDd Index: 1.90 2.4-3.2/2.2-3.1 cm/m2 LVIDs: 3.23 2.0-3.6 cm LVPWd: 1.42 0.7-1.1 cm Ao Root: 3.40 2.1-3.5 cm LA Diam: 3.00 2.7-3.8/3.0-4.0 cm LAIDs Index: 1.15 1.5-2.3 cm/m2 LV Mass: 362.49 67-162/88-224 g LV Mass Index: 139.42 43-95/49-115 g/m2 LVOT Diam: 2.30 3.0+(-)1.3 cm 2D Systolic Function EF 4C: 65.40 >55% EF 2C: 60.10 >55% EF BiP: 63.20 >55% Mitral Valve MV Pk E: 0.69 MV PK A: 0.85 MV Decel Time: 278.00 E/A: 0.80 E'Lateral: 8.80 E'Medial: 6.67 E/E' Med: 10.30 E/E' Lat: 7.80 PHT: 81.00 MVA PHT: 2.72 Decel Ward: 2.48 Aortic Valve AoV Pk Olegario: 1.55 AoV Mn Olegario: 1.05 AoV VTI: 0.35 AoV Pk Grad: 10.00 Aov Mn Grad: 5.00 BONNY Cont.VTI: 3.20 LVOT LVOT Pk Olegario: 1.22 LVOT Mn Olegario: 0.80 LVOT VTI: 0.27 LVOT Pk Grad: 6.00 LVOT Mn Grad: 3.00 LVOT Diam: 2.30 LVOT Area: 4.15 Diastolic Function MV Pk E: 0.69 MV Pk A: 0.85 E/A: 0.80 E'Medial: 6.67 E/E' Med: 10.30 E' Laterial: 8.80 E/E' Lat: 7.80 Tricuspid Valve TR Pk Olegario: 2.25 TR Pk Grad: 20.00 RA Press: 3.00 RVSP: 23.00 Great Vessels Aorta Ao Root-2D: 3.40 2.0-3.7 cm Pulmonary Valve PV Pk Olegario: 1.02 Peak PV Grad: 4.00 Updated in Other Vendor System with Status of Final Maximino Cui MD electronically signed on 12/30/2020 11:00:49 AM with status of Final
[2020-12-30] MEDS: amLODIPine Besylate 5 MG TABLET PO (09:16)
[2020-12-30] MEDS: Torsemide 20 MG TABLET 100 MG PO ×2 (09:16→21:44)
[2020-12-30] MEDS: Sodium Bicarbonate 650 MG TABLET PO ×2 (09:16→21:44)
[2020-12-30] MEDS: Metoprolol Tartrate 25 MG TABLET PO ×2 (09:16→21:43)
[2020-12-30] MEDS: Insulin Glargine,Hum.rec.anlog 100 UNIT/ML 10 ML VIAL 70 UNIT SUBCUT (09:17)
[2020-12-30 09:43] LABS: Troponin-I High Sensitivity 106.5 ng/L (<3.5-17.0)
--- NOTE | 2020-12-30 11:02 | HO.PM.IMPN ---
Subjective Subjective Date of Service: 12/30/20 <Edith Moreno NP - Last Filed: 12/30/20 13:30> 12/30/20 <Lewis José MD - Last Filed: 12/30/20 13:50> Interval History: Follow up for gastroparesis, uti. No with chest pain, right shoulder radiating to back. same on the left side but more towards left breast. No abd pain, nausea or vomiting. <Edith Moreno NP - Last Filed: 12/30/20 13:30> Physical Exam Vital Signs: Vital Signs: Last Vital Signs Temp 98.3 F 12/30/20 07:49 Pulse 62 12/30/20 07:49 Resp 20 12/30/20 07:49 BP 110/56 L 12/30/20 07:49 Pulse Ox 98 12/30/20 07:49 Body Mass Index 62.4 <Edith Moreno NP - Last Filed: 12/30/20 13:30> Appearing in no acute distress lung sounds are clear to auscultation heart regular rate rhythm, clear S1, S2 positive bowel sounds, abdomen is soft, nontender neuro patient is alert x3, no focal deficits MSK pain upon palpation to right and left shoulder <Edith Morneo NP - Last Filed: 12/30/20 13:30> Objective Data Current Medications Generic Name Dose Route Start Last Admin Trade Name Freq PRN Reason Stop Dose Admin Acetaminophen 650 mg 12/28/20 01:07 Acetaminophen 325 Mg Tablet PO Q6H PRN Pain, Mild (Pain Scale 1-3) Acetaminophen 650 mg 12/28/20 01:10 Acetaminophen 325 Mg Tablet PO Q6H PRN pain Albuterol Sulfate 2 puff 12/28/20 01:10 Albuterol Sulfate 90 Mcg 8 Gm Inhaler INHALE Q4H PRN bronchospasm Amlodipine Besylate 5 mg 12/28/20 09:00 12/30/20 09:16 Amlodipine Besylate 5 Mg Tablet PO 5 mg DAILY KENTRELL Administration Protocol Ceftriaxone Sodium 1 gm/ 50 mls @ 100 mls/hr 12/28/20 01:45 12/30/20 02:57 Sodium Chloride IV Infused Q24H [facility] Infusion Insulin Glargine 70 unit 12/30/20 09:00 12/30/20 09:17 Insulin Glargine,Hum.Rec.Anlog 100 Unit/Ml 10 Ml Vial SUBCUT 70 unit DAILY [facility] Administration Insulin Human Lispro 0 unit 12/28/20 07:30 12/30/20 09:15 Insulin Lispro 100 Unit/Ml 3 Ml Vial SUBCUT Not Given QIDACHS [facility] Protocol Levothyroxine Sodium 25 mcg 12/28/20 06:30 12/30/20 06:24 Levothyroxine Sodium 25 Mcg Tablet PO 25 mcg DAILY@0630 [facility] Administration Metoclopramide HCl 5 mg 12/29/20 16:33 12/29/20 16:55 Metoclopramide Hcl 10 Mg/2 Ml Vial IVPUSH 5 mg Q6H PRN Administration Nausea Metoprolol Tartrate 25 mg 12/28/20 13:40 12/30/20 09:16 Metoprolol Tartrate 25 Mg Tablet PO 25 mg BID [facility] Administration Protocol Morphine Sulfate 1 mg 12/29/20 21:24 Morphine Sulfate 2 Mg/Ml Cartridge IVPUSH Q6H PRN Breakthrough Pain Nitroglycerin 0.4 mg 12/29/20 21:23 12/29/20 22:44 Nitroglycerin 0.4 Mg Tab.Subl SUBLINGUAL 0.4 mg Q5MX3 PRN Administration Chest Pain Omeprazole 20 mg 12/28/20 17:45 12/30/20 06:24 Omeprazole 20 Mg Capsule.Dr PO 20 mg DAILY@0630 [facility] Administration Ondansetron HCl 4 mg 12/28/20 01:07 12/29/20 11:31 Ondansetron Hcl 4 Mg/2 Ml Vial IVPUSH 4 mg Q8H PRN Administration Nausea and Vomiting Ropinirole HCl 0.5 mg 12/28/20 21:00 12/29/20 21:20 Ropinirole Hcl 0.5 Mg Tablet PO 0.5 mg BEDTIME [facility] Administration Senna 17.2 mg 12/28/20 01:07 Sennosides 8.6 Mg Tablet PO BEDTIME PRN Constipation Sodium Bicarbonate 650 mg 12/28/20 09:00 12/30/20 09:16 Sodium Bicarbonate 650 Mg Tablet PO 650 mg BID [facility] Administration Sodium Chloride 3 ml 12/28/20 08:00 12/30/20 09:15 0.9 % Sodium Chloride Flush 3 Ml Syringe IVFLUSH Not Given QSHIFT [facility] Torsemide 100 mg 12/29/20 21:00 12/30/20 09:16 Torsemide 20 Mg Tablet PO 100 mg BID [facility] Administration Vancomycin HCl 125 mg 12/29/20 10:15 12/30/20 09:16 Vancomycin Hcl 125 Mg Capsule PO 125 mg Q6H [facility]RELL Administration <Edith Moreno NP - Last Filed: 12/30/20 13:30> Labs CBC & Chem 7: : 12/30/20 04:24 12/30/20 04:24 <Edith Moreno NP - Last Filed: 12/30/20 13:30> Microbiology Microbiology Results: Microbiology <Edith Moreno NP - Last Filed: 12/30/20 13:30> Assessment and Plan (1) Acute hyperkalemia: Status: Acute <Edith Moreno NP - Last Filed: 12/30/20 13:30> Assessment and Plan: 60-year-old female with a past medical history diabetes, gastroparesis, chronic kidney disease presented to the hospital with a chief complaint of nausea/vomiting/poor oral intake. Noted to have hyperkalemia. Chest pain. Developed chest pain yesterday. Trops trending up. Seems more like MSK pain -Echo pending -cardiology consult rec VQ scan to r/o PE causing trops, otherwise may be BP, will increase amlodipine to 10mg for better control UTI. Chronic. Patient was on Bactrim for the past few days. Patient still complains of urinary frequency and foul-smelling urine. Will obtain urine cultures. -urine cx negative, will stop rocephin -renal us no hydro or mass -follow cx Gastritis versus gastroparesis. GES normal in 2019, cdiff 09/2020. On bactrim for UTI. no further vomiting or diarrhea -seen and examined by GI, no need for GES or endo at this time. -abd us showed no gallstones -CDIFF antigen pos, toxin neg. will treat empirically with oral vanco until PCR returns -PPI Acidosis. Improving. Likely metabolic. Received sodium bicarbonate. -seen and examined by nephrology -half normal saline stopped, on oral bicarb Chronic kidney disease. Patient's current creatinine is 2.5. -urine sodium, creat done -avoid nephrotoxins -stop losartan as per neophrology Hyperkalemia. Resolved. Patient was given Bactrim recently for UTI. Patient educated not to take Bactrim while on losartan infusion. Received calcium gluconate, insulin plus dextrose. -Follow BMP -lostartan stopped Diabetes. hypoglycemic this morning. on lantus BID -decrease lantus to daily in the morning -sliding scale Obesity. BMI 62.5 -Discussed the importance of weight loss as obesity may contribute to worsening of other comorbid conditions. DVT prophylaxis: SCD boots DISPO: Likely home tomorrow if medically stable Attending: Dr. José <Edith Moreno NP - Last Filed: 12/30/20 13:30> (2) Morbid obesity: Status: Acute <Edith Moreno NP - Last Filed: 12/30/20 13:30> (3) Acute hyperglycemia: Status: Acute <Edith Moreno NP - Last Filed: 12/30/20 13:30> (4) Acute kidney injury superimposed on CKD: Status: Acute <Edith Moreno NP - Last Filed: 12/30/20 13:30> (5) IBS (irritable bowel syndrome): Status: Acute <Edith Moreno NP - Last Filed: 12/30/20 13:30> Assessment and Plan: Seen and discussed with TAX COMPLIANCE AGENT, Agree with above <Lewis José MD - Last Filed: 12/30/20 13:50>
[2020-12-30 11:33] LABS: Glucose, Whole Blood 116 mg/dL (60-115)
[2020-12-30 11:56] VITALS: BP 124/76; PULSE 58; RESP 20; TEMP 36.6; O2SAT 99
--- NOTE | 2020-12-30 12:20 | P.CONCA_ITS ---
History of Present Illness History of Present Illness Date of Service: 12/30/20 Consult reason: troponin elevation Chief complaint: Hyperkalemia Narrative: This is a cardiology consultation regarding elevated troponins. Patient herself has morbid obesity. She also has hypertension as well as chronic kidney disease. It seems that she has had diabetes for many years. She is on insulin. She was admitted to the hospital complaints of nausea, vomiting and poor intake. Then it seems that she was found to have hyperkalemia. From the cardiac standpoint, there is a concern for chest pain and hence we have been asked to see her. She describes pain on the right side of the chest and radiates to the back. Very positional and can be present more when she turns in a certain position as opposed to the other side. No pericardial or left-sided chest pain. She denies any prior history of coronary disease myocardial infarction or cardiomyopathy. It seems that she is quite sedentary at baseline. Review of Systems Review of Systems: Yes all other systems are reviewed and are negative Cardiovascular: Cardiovascular: Reports as per HPI, Reports no additional cardiovascular complaints, Denies acrocyanosis, Denies cool extremities, Denies painful fingertips, Reports chest pain, Reports chest pain at rest, Denies diaphoresis, Denies syncope, Denies irregular heart rhythm, Denies claudication, Denies leg edema, Denies lightheadedness, Denies palpitations and Denies dyspnea Respiratory: Respiratory: Denies dyspnea Neurologic: Denies syncope Endocrine: Endocrine: Denies palpitations [facility] Past Medical History Medical History (Updated 12/30/20 @ 12:32 by Maximino Cui MD) Bladder outlet obstruction CKD (chronic kidney disease) stage 4, GFR 15-29 ml/min Diabetes mellitus Diabetes mellitus with gastroparesis Esophagitis Gastritis Hypertension Intractable nausea and vomiting Morbid obesity Family History Family History Father Diabetes Mother Diabetes Hypertension Breast cancer Family/Other Breast cancer Uterine cancer Surgical History Surgical History History of tubal ligation Social History Social History Household Members: None Housing: Apartment Do you presently have visiting nurse or other home services: Yes ([facility] Tolentino) Alcohol intake: unknown Smoking Status: Never smoker Second Hand Smoke Exposure: No Use of substances other than those prescribed or required for medical reasons: No Currently Displaying Signs/Symptoms of Drug Intoxication Withdrawal: No Have you been hit, kicked, punched, or otherwise hurt by someone within the past year? If so, by whom?: No Do you feel safe in your current relationship?: Yes Is there a partner from a previous relationship who is making you feel unsafe now?: No Are you made to feel afraid or neglected: No Advance Directives: No Advance Directives Information Provided: Yes Do you have thoughts of harming others: None Do you have a plan to hurt others: No Plan Recently lost weight without trying: No Eating poorly because of decreased appetite: Yes Nutrition Risks: Acute nausea or vomiting x1 week and Poor intake 0-25% >4 days Patient : No : No Poor oral hygiene: No service: No Current occupational status: disabled Meds Allergies Allergy/AdvReac Type Severity Reaction Status Date / Time metformin [METFORMIN] Allergy Severe HIVES Verified 12/27/20 19:38 canagliflozin [From Invokana] Allergy Hives Verified 12/27/20 19:38 Active Medications: Current Medications Generic Name Dose Route Start Last Admin Trade Name Freq PRN Reason Stop Dose Admin Acetaminophen 650 mg 12/28/20 01:07 Acetaminophen 325 Mg Tablet PO Q6H PRN Pain, Mild (Pain Scale 1-3) Acetaminophen 650 mg 12/28/20 01:10 Acetaminophen 325 Mg Tablet PO Q6H PRN pain Albuterol Sulfate 2 puff 12/28/20 01:10 Albuterol Sulfate 90 Mcg 8 Gm Inhaler INHALE Q4H PRN bronchospasm Amlodipine Besylate 10 mg 12/31/20 09:00 Amlodipine Besylate 5 Mg Tablet PO DAILY [facility] Protocol Ceftriaxone Sodium 1 gm/ 50 mls @ 100 mls/hr 12/28/20 01:45 12/30/20 02:57 Sodium Chloride IV Infused Q24H [facility] Infusion Insulin Glargine 70 unit 12/30/20 09:00 12/30/20 09:17 Insulin Glargine,Hum.Rec.Anlog 100 Unit/Ml 10 Ml Vial SUBCUT 70 unit DAILY [facility] Administration Insulin Human Lispro 0 unit 12/28/20 07:30 12/30/20 11:56 Insulin Lispro 100 Unit/Ml 3 Ml Vial SUBCUT Not Given QIDACHS [facility] Protocol Levothyroxine Sodium 25 mcg 12/28/20 06:30 12/30/20 06:24 Levothyroxine Sodium 25 Mcg Tablet PO 25 mcg DAILY@0630 [facility] Administration Metoclopramide HCl 5 mg 12/29/20 16:33 12/29/20 16:55 Metoclopramide Hcl 10 Mg/2 Ml Vial IVPUSH 5 mg Q6H PRN Administration Nausea Metoprolol Tartrate 25 mg 12/28/20 13:40 12/30/20 09:16 Metoprolol Tartrate 25 Mg Tablet PO 25 mg BID [facility] Administration Protocol Morphine Sulfate 1 mg 12/29/20 21:24 Morphine Sulfate 2 Mg/Ml Cartridge IVPUSH Q6H PRN Breakthrough Pain Nitroglycerin 0.4 mg 12/29/20 21:23 12/29/20 22:44 Nitroglycerin 0.4 Mg Tab.Subl SUBLINGUAL 0.4 mg Q5MX3 PRN Administration Chest Pain Omeprazole 20 mg 12/28/20 17:45 12/30/20 06:24 Omeprazole 20 Mg Capsule.Dr PO 20 mg DAILY@0630 [facility] Administration Ondansetron HCl 4 mg 12/28/20 01:07 12/29/20 11:31 Ondansetron Hcl 4 Mg/2 Ml Vial IVPUSH 4 mg Q8H PRN Administration Nausea and Vomiting Ropinirole HCl 0.5 mg 12/28/20 21:00 12/29/20 21:20 Ropinirole Hcl 0.5 Mg Tablet PO 0.5 mg BEDTIME [facility] Administration Senna 17.2 mg 12/28/20 01:07 Sennosides 8.6 Mg Tablet PO BEDTIME PRN Constipation Sodium Bicarbonate 650 mg 12/28/20 09:00 12/30/20 09:16 Sodium Bicarbonate 650 Mg Tablet PO 650 mg BID [facility] Administration Sodium Chloride 3 ml 12/28/20 08:00 12/30/20 09:15 0.9 % Sodium Chloride Flush 3 Ml Syringe IVFLUSH Not Given QSHIFT [facility] Torsemide 100 mg 12/29/20 21:00 12/30/20 09:16 Torsemide 20 Mg Tablet PO 100 mg BID [facility] Administration Vancomycin HCl 125 mg 12/29/20 10:15 12/30/20 09:16 Vancomycin Hcl 125 Mg Capsule PO 125 mg Q6H [facility] Administration Home Medications Medication Instructions Recorded Confirmed Last Taken Type levothyroxine 25 mcg PO DAILY 07/31/20 12/28/20 Unknown History losartan 100 mg PO DAILY 07/31/20 12/28/20 Unknown History calcifediol [Rayaldee] 30 mcg PO DAILY 10/09/20 12/28/20 Unknown History insulin glargine [Lantus U-100 95 unit SUBCUT BID 10/09/20 12/28/20 Unknown History Insulin] alcohol swabs 0 pad TOPICAL BID 12/20/20 12/28/20 Unknown History lancets 28 gauge #100 ea 12/20/20 12/20/20 Unknown History losartan 1 tab PO DAILY 12/28/20 12/28/20 Unknown History nystatin 1 appful TOPICAL QID 12/28/20 12/28/20 Unknown History ropinirole 1 tab PO BEDTIME 12/28/20 12/28/20 Unknown History sulfamethoxazole-trimethoprim 1 tab PO BID 12/28/20 12/28/20 Unknown History torsemide 1 tab PO BID 12/28/20 12/28/20 Unknown History Physical Exam Vital Signs: Vital Signs: Last Vital Signs Temp 97.8 F 12/30/20 11:56 Pulse 58 12/30/20 11:56 Resp 20 12/30/20 11:56 BP 124/76 12/30/20 11:56 Pulse Ox 99 12/30/20 11:56 Body Mass Index 62.4 Const: General: cooperative, comfortable and no acute distress O rientation/consciousness: patient oriented x3 HENMT: Other: Unremarkable Neck: Neck: Yes normal visual inspection Chest: Chest palpation & inspection: normal inspection of the chest Resp: Auscultation: clear to auscultation bilaterally, no crackles and no wheezes Cardio: Jugular venous distension: no JVD Palpation: normal PMI Heart sounds: S1 normal heart sound present, S2 normal heart sound present, no gallops, no murmurs and no rubs GI: Palpation (GI): Soft to palpation Back/Spine/Pelvis: Other: unremarkable Skin: General skin exam: no rashes or lesions noted Neuro: General: patient oriented x3 Extrem: General: Yes pedal edema (Bilateral, 2 to 3+) Psych: Mental Status: mental status grossly normal Results Labs and Meds Result diagrams: 12/30/20 04:24 12/30/20 04:24 Lab results: Laboratory Results - last 24 hr 12/29/20 12/29/20 12/29/20 11:53 16:11 19:52 WBC RBC Hgb Hct MCV MCH MCHC RDW Plt Count MPV Immature Gran % (Auto) Neut % (Auto) Lymph % (Auto) [place] % (Auto) Eos % (Auto) Baso % (Auto) Lymph # (Auto) [place] # (Auto) Eos # (Auto) Baso # (Auto) Abs Immat Gran (auto) Absolute Neuts (auto) Absolute Nucleated RBC Nucleated RBC % (auto) Sodium Potassium Chloride Carbon Dioxide Anion Gap BUN Creatinine Estim Creat Clear Calc Estimated GFR POC Glucose 112 Random Glucose Calcium Troponin I High Sens 19.9 H 56.7 H D 12/29/20 12/29/20 12/30/20 20:33 22:58 04:24 WBC 13.0 H RBC 3.75 L Hgb 11.2 L Hct 34.9 L MCV 93.1 MCH 29.9 MCHC 32.1 RDW 13.2 Plt Count 322 MPV 9.9 Immature Gran % (Auto) 0.5 H Neut % (Auto) 53.1 Lymph % (Auto) 35.9 [place] % (Auto) 8.2 Eos % (Auto) 1.8 Baso % (Auto) 0.5 Lymph # (Auto) 4.7 [place] # (Auto) 1.1 Eos # (Auto) 0.2 Baso # (Auto) 0.1 Abs Immat Gran (auto) 0.06 H Absolute Neuts (auto) 6.9 Absolute Nucleated RBC 0.000 Nucleated RBC % (auto) 0.0 Sodium Potassium Chloride Carbon Dioxide Anion Gap BUN Creatinine Estim Creat Clear Calc Estimated GFR POC Glucose 113 Random Glucose Calcium Troponin I High Sens 74.1 H 12/30/20 12/30/20 12/30/20 04:24 04:24 07:31 WBC RBC Hgb Hct MCV MCH MCHC RDW Plt Count MPV Immature Gran % (Auto) Neut % (Auto) Lymph % (Auto) [place] % (Auto) Eos % (Auto) Baso % (Auto) Lymph # (Auto) [place] # (Auto) Eos # (Auto) Baso # (Auto) Abs Immat Gran (auto) Absolute Neuts (auto) Absolute Nucleated RBC Nucleated RBC % (auto) Sodium 136 Potassium 4.1 Chloride 106 Carbon Dioxide 23 Anion Gap 11 L BUN 44 H Creatinine 2.55 H Estim Creat Clear Calc 38.2 Estimated GFR 19 POC Glucose 71 Random Glucose 65 D Calcium 7.5 L Troponin I High Sens 106.5 H 12/30/20 11:25 WBC RBC Hgb Hct MCV MCH MCHC RDW Plt Count MPV Immature Gran % (Auto) Neut % (Auto) Lymph % (Auto) [place] % (Auto) Eos % (Auto) Baso % (Auto) Lymph # (Auto) [place] # (Auto) Eos # (Auto) Baso # (Auto) Abs Immat Gran (auto) Absolute Neuts (auto) Absolute Nucleated RBC Nucleated RBC % (auto) Sodium Potassium Chloride Carbon Dioxide Anion Gap BUN Creatinine Estim Creat Clear Calc Estimated GFR POC Glucose 116 H Random Glucose Calcium Troponin I High Sens ECG Attestation: I personally reviewed and interpreted this ECG as follows: Interpretation: EKG shows sinus rhythm at 66/Min; no significant ST-T changes and otherwise unremarkable. Poor R-wave progression in the precordial leads is most likely from body habitus. Imaging Radiologist's impression: Impressions Abdomen Ultrasound 12/29/20 12:30 IMPRESSION: 1. Moderate diffuse mural thickening in the gallbladder is nonspecific. This appearance is somewhat similar to the previous CT scan suggesting these could represent chronic changes secondary to systemic disease. Previously seen peritoneal ascites has decreased. Residual minimal fluid cannot be excluded. No cholelithiasis. Acalculus cholecystitis cannot be excluded. 2. Nonobstructing interpolar right intrarenal calculus without significant change. Assessment and Plan (1) Precordial chest pain: Status: Acute (2) Type 2 diabetes mellitus with unspecified complications: Status: Acute (3) Morbid obesity: Status: Acute (4) Acute kidney injury superimposed on CKD: Status: Acute (5) Acute hyperkalemia: Status: Acute (6) Essential hypertension: Status: Acute Chest pain itself seems very atypical as well as positional. Her blood pressures have been quite high reaching as much as 200 mm Hg but improved today. High sensitivity Troponins are approximately 19 followed by 56, 74 and 106. This could all be from poorly controlled hypertension and demand ischemia. Based on her risk factors, she could have underlying coronary disease, but do not believe this is a plaque rupture type situation. As she is quite sedentary, we can also assess her for any possible pulmonary embolism with a V/Q scan. Optimize the blood pressure medications. Echocardiogram with preserved LVEF and no obvious wall motion abnormality.
--- NOTE | 2020-12-30 14:00 | MHC.CM.PN ---
Patient is on IV Ceftriaxone for +UTI, IVMS and IVF. Patient also placed on PO Vanco for ?CDiff. Patient is also scheduled for an echo today r/t complaints of CP. Discharge plan is home with resumption of services with [facility] Ahktar. Patient will need BLS transportation home r/t wieght >400 lbs. CM will continue to follow patient for discharge needs.
--- NOTE | 2020-12-30 14:11 | PM.PNNEP ---
Subjective Subjective Date of Service: 12/30/20 Interval history: Seen and examined. Events noted Physical Exam Vital Signs: Vital Signs: Last Vital Signs Temp 97.8 F 12/30/20 11:56 Pulse 58 12/30/20 11:56 Resp 20 12/30/20 11:56 BP 124/76 12/30/20 11:56 Pulse Ox 99 12/30/20 11:56 Body Mass Index 62.4 Const: General: cooperative Neck: Neck: Yes supple Cardio: Jugular venous distension: no JVD Palpation: no palpable S3 GI: Inspection: Yes obesity Palpation (GI): Soft to palpation Skin: General skin exam: no rashes or lesions noted Neuro: Motor exam (neuro): no asterixis Objective Data Labs CBC & Chem 7: 12/30/20 04:24 12/30/20 04:24 Labs: Laboratory Results - last 24 hr 12/29/20 12/29/20 12/29/20 16:11 19:52 20:33 WBC RBC Hgb Hct MCV MCH MCHC RDW Plt Count MPV Immature Gran % (Auto) Neut % (Auto) Lymph % (Auto) [place] % (Auto) Eos % (Auto) Baso % (Auto) Lymph # (Auto) [place] # (Auto) Eos # (Auto) Baso # (Auto) Abs Immat Gran (auto) Absolute Neuts (auto) Absolute Nucleated RBC Nucleated RBC % (auto) Sodium Potassium Chloride Carbon Dioxide Anion Gap BUN Creatinine Estim Creat Clear Calc Estimated GFR POC Glucose 112 113 Random Glucose Calcium Troponin I High Sens 56.7 H D 12/29/20 12/30/20 12/30/20 22:58 04:24 04:24 WBC 13.0 H RBC 3.75 L Hgb 11.2 L Hct 34.9 L MCV 93.1 MCH 29.9 MCHC 32.1 RDW 13.2 Plt Count 322 MPV 9.9 Immature Gran % (Auto) 0.5 H Neut % (Auto) 53.1 Lymph % (Auto) 35.9 [place] % (Auto) 8.2 Eos % (Auto) 1.8 Baso % (Auto) 0.5 Lymph # (Auto) 4.7 [place] # (Auto) 1.1 Eos # (Auto) 0.2 Baso # (Auto) 0.1 Abs Immat Gran (auto) 0.06 H Absolute Neuts (auto) 6.9 Absolute Nucleated RBC 0.000 Nucleated RBC % (auto) 0.0 Sodium 136 Potassium 4.1 Chloride 106 Carbon Dioxide 23 Anion Gap 11 L BUN 44 H Creatinine 2.55 H Estim Creat Clear Calc 38.2 Estimated GFR 19 POC Glucose Random Glucose 65 D Calcium 7.5 L Troponin I High Sens 74.1 H 12/30/20 12/30/20 12/30/20 04:24 07:31 11:25 WBC RBC Hgb Hct MCV MCH MCHC RDW Plt Count MPV Immature Gran % (Auto) Neut % (Auto) Lymph % (Auto) [place] % (Auto) Eos % (Auto) Baso % (Auto) Lymph # (Auto) [place] # (Auto) Eos # (Auto) Baso # (Auto) Abs Immat Gran (auto) Absolute Neuts (auto) Absolute Nucleated RBC Nucleated RBC % (auto) Sodium Potassium Chloride Carbon Dioxide Anion Gap BUN Creatinine Estim Creat Clear Calc Estimated GFR POC Glucose 71 116 H Random Glucose Calcium Troponin I High Sens 106.5 H Microbiology Microbiology Results: Microbiology 12/29/20 10:40 Urine clean catch - Clean Catch Midstream Urine Culture - Final Assessment & Plan Assessment and plan (1) Acute kidney injury: Problem details: 1. RASHEEDA vs adv CKD: based on SCr it appaers her bsl SCr is 2.5 range and suspect she has adv DKD 2. HyperK: controlled 3. DM REC: cont to track renal func; avoid NToxins; sero as ordered re eval of CKD Status: Acute Time Spent With Patient Time: Total time spent is greater than 50% in coordination of care (as documented) at patient's floor/unit and/or counseling patient:
[2020-12-30 15:33] VITALS: BP 128/59; PULSE 60; RESP 20; TEMP 36.7; O2SAT 97
[2020-12-30 16:18] LABS: Glucose, Whole Blood 98 mg/dL (60-115)
[2020-12-30] MEDS: 0.9 % Sodium Chloride Flush 3 ML SYRINGE IVFLUSH ×2 (16:21→21:50)
[2020-12-30 16:25] LABS: Creatinine Urine 53.42 mg/dL
[2020-12-30 16:46] LABS: Total Protein Urine Random 294 mg/dL (<12)
[2020-12-30 19:28] VITALS: BP 133/61; PULSE 65; RESP 20; TEMP 36.1; O2SAT 98
[2020-12-30 21:12] LABS: Glucose, Whole Blood 130 mg/dL (60-115)
[2020-12-30 21:43] VITALS: BP 133/61; PULSE 65
[2020-12-30] MEDS: rOPINIRole HCL 0.5 MG TABLET PO (21:44)
[2020-12-31] VITALS: BP 115/55; PULSE 57; RESP 18; TEMP 36.3; O2SAT 97
[2020-12-31 03:50] VITALS: BP 130/63; PULSE 59; RESP 18; TEMP 35.8; O2SAT 97
[2020-12-31 04:06] LABS: Glucose, Whole Blood 83 mg/dL (60-115)
[2020-12-31] MEDS: vancomycin HCL 125 MG CAPSULE PO ×2 (04:40→09:22)
[2020-12-31] MEDS: Omeprazole 20 MG CAPSULE.DR PO (06:27)
[2020-12-31] MEDS: Levothyroxine Sodium 25 MCG TABLET PO (06:27)
[2020-12-31 07:22] LABS: Glucose, Whole Blood 106 mg/dL (60-115)
[2020-12-31 07:44] VITALS: BP 132/63; PULSE 63; RESP 20; TEMP 36.2; O2SAT 96
[2020-12-31] MEDS: amLODIPine Besylate 5 MG TABLET 10 MG PO (09:21)
[2020-12-31] MEDS: Sodium Bicarbonate 650 MG TABLET PO (09:21)
[2020-12-31] MEDS: Torsemide 20 MG TABLET 100 MG PO (09:21)
[2020-12-31] MEDS: 0.9 % Sodium Chloride Flush 3 ML SYRINGE IVFLUSH (09:21)
[2020-12-31] MEDS: Insulin Glargine,Hum.rec.anlog 100 UNIT/ML 10 ML VIAL 70 UNIT SUBCUT (09:22)
[2020-12-31] MEDS: Metoprolol Tartrate 25 MG TABLET PO (09:22)
[2020-12-31 11:13] LABS: Glucose, Whole Blood 135 mg/dL (60-115)
[2020-12-31 11:42] VITALS: BP 111/55; PULSE 61; RESP 20; TEMP 36.2; O2SAT 98
--- NOTE | 2020-12-31 11:50 | PM.PNCARD ---
Subjective Subjective Date of Service: 12/31/20 Interval history: She has some back pain but no longer having any chest pain. Points to the right side of the back. Seems musculoskeletal as it is only present in certain body positions. Review of Systems Review of Systems Yes all other systems are reviewed and are negative Cardiovascular: Reports as per HPI, Reports no additional cardiovascular complaints, Denies acrocyanosis, Denies cool extremities, Denies painful fingertips, Reports chest pain, Reports chest pain at rest, Denies diaphoresis, Denies syncope, Denies irregular heart rhythm, Denies claudication, Denies leg edema, Denies lightheadedness, Denies palpitations and Denies dyspnea Respiratory: Denies dyspnea Denies syncope Endocrine: Denies palpitations Physical Exam Vital Signs: Last Vital Signs Temp 97.1 F 12/31/20 11:42 Pulse 61 12/31/20 11:42 Resp 20 12/31/20 11:42 BP 111/55 L 12/31/20 11:42 Pulse Ox 98 12/31/20 11:42 Body Mass Index 62.4 Const General: cooperative, comfortable and no acute distress Orientation/consciousness: patient oriented x3 HENMT Other: Unremarkable Neck Neck: Yes normal visual inspection Chest Chest palpation & inspection: normal inspection of the chest Resp Auscultation: clear to auscultation bilaterally, no crackles and no wheezes Cardio Jugular venous distension: no JVD Palpation: normal PMI Heart sounds: S1 normal heart sound present, S2 normal heart sound present, no gallops, no murmurs and no rubs GI Palpation (GI): Soft to palpation Back/Spine/Pelvis Other: unremarkable Skin General skin exam: no rashes or lesions noted Neuro General: patient oriented x3 Extrem General: Yes pedal edema (Bilateral, 2 to 3+) Psych Mental Status: mental status grossly normal Results Labs and Meds Result diagrams: 12/30/20 04:24 12/30/20 04:24 Lab results: Laboratory Results - last 24 hr 12/30/20 12/30/20 12/30/20 15:38 16:06 20:58 POC Glucose 98 130 H U Random Total Protein 294 H Urine Creatinine 53.42 12/31/20 12/31/20 12/31/20 04:01 07:02 10:57 POC Glucose 83 106 135 H U Random Total Protein Urine Creatinine Imaging Radiologist's impression: Impressions Pulmonary Perfusion Imaging 12/30/20 14:55 IMPRESSION: Unremarkable chest exam. Findings suggestive of low probability for PE Chest X-Ray 12/30/20 14:59 IMPRESSION: Unremarkable chest exam. Findings suggestive of low probability for PE Progress Note: A&P Assessment and plan (1) Precordial chest pain: Status: Acute (2) Type 2 diabetes mellitus with unspecified complications: Status: Acute (3) Morbid obesity: Status: Acute (4) Acute kidney injury superimposed on CKD: Status: Acute (5) Acute hyperkalemia: Status: Acute (6) Essential hypertension: Status: Acute Assessment and Plan: Chest pain itself seems very atypical as well as positional. Her blood pressures have been quite high reaching as much as 200 mm Hg but improved today. High sensitivity Troponins are approximately 19 followed by 56, 74 and 106. This could all be from poorly controlled hypertension and demand ischemia. Based on her risk factors, she could have underlying coronary disease, but do not believe this is a plaque rupture type situation. Echocardiogram with preserved LVEF and no obvious wall motion abnormality. Was hyperkalemic on arrival but potassium is improved today. Off Losartan. Amlodipine dose has been increased. V/Q scan is negative for pulmonary embolism. Discharge planning. Will arrange outpatient follow-up. Fall Risk Details Current Medications: Current Medications Generic Name Dose Route Start Last Admin Trade Name Freq PRN Reason Stop Dose Admin Acetaminophen 650 mg 12/28/20 01:07 Acetaminophen 325 Mg Tablet PO Q6H PRN Pain, Mild (Pain Scale 1-3) Acetaminophen 650 mg 12/28/20 01:10 Acetaminophen 325 Mg Tablet PO Q6H PRN pain Albuterol Sulfate 2 puff 12/28/20 01:10 Albuterol Sulfate 90 Mcg 8 Gm Inhaler INHALE Q4H PRN bronchospasm Amlodipine Besylate 10 mg 12/31/20 09:00 12/31/20 09:21 Amlodipine Besylate 5 Mg Tablet PO 10 mg DAILY [facility] Administration Protocol Insulin Glargine 70 unit 12/30/20 09:00 12/31/20 09:22 Insulin Glargine,Hum.Rec.Anlog 100 Unit/Ml 10 Ml Vial SUBCUT 70 unit DAILY [facility] Administration Insulin Human Lispro 0 unit 12/28/20 07:30 12/31/20 11:29 Insulin Lispro 100 Unit/Ml 3 Ml Vial SUBCUT Not Given QIDAS [facility] Protocol Levothyroxine Sodium 25 mcg 12/28/20 06:30 12/31/20 06:27 Levothyroxine Sodium 25 Mcg Tablet PO 25 mcg DAILY@0630 [facility] Administration Metoclopramide HCl 5 mg 12/29/20 16:33 12/29/20 16:55 Metoclopramide Hcl 10 Mg/2 Ml Vial IVPUSH 5 mg Q6H PRN Administration Nausea Metoprolol Tartrate 25 mg 12/28/20 13:40 12/31/20 09:22 Metoprolol Tartrate 25 Mg Tablet PO 25 mg BID [facility] Administration Protocol Morphine Sulfate 1 mg 12/29/20 21:24 Morphine Sulfate 2 Mg/Ml Cartridge IVPUSH Q6H PRN Breakthrough Pain Nitroglycerin 0.4 mg 12/29/20 21:23 12/29/20 22:44 Nitroglycerin 0.4 Mg Tab.Subl SUBLINGUAL 0.4 mg Q5MX3 PRN Administration Chest Pain Omeprazole 20 mg 12/28/20 17:45 12/31/20 06:27 Omeprazole 20 Mg Capsule.Dr PO 20 mg DAILY@30 [facility] Administration Ondansetron HCl 4 mg 12/28/20 01:07 12/29/20 11:31 Ondansetron Hcl 4 Mg/2 Ml Vial IVPUSH 4 mg Q8H PRN Administration Nausea and Vomiting Ropinirole HCl 0.5 mg 12/28/20 21:00 12/30/20 21:44 Ropinirole Hcl 0.5 Mg Tablet PO 0.5 mg BEDTIME [facility] Administration Senna 17.2 mg 12/28/20 01:07 Sennosides 8.6 Mg Tablet PO BEDTIME PRN Constipation Sodium Bicarbonate 650 mg 12/28/20 09:00 12/31/20 09:21 Sodium Bicarbonate 650 Mg Tablet PO 650 mg BID [facility] Administration Sodium Chloride 3 ml 12/28/20 08:00 12/31/20 09:21 0.9 % Sodium Chloride Flush 3 Ml Syringe IVFLUSH 3 ml QSHIFT [facility] Administration Torsemide 100 mg 12/29/20 21:00 12/31/20 09:21 Torsemide 20 Mg Tablet PO 100 mg BID [facility] Administration Vancomycin HCl 125 mg 12/29/20 10:15 12/31/20 09:22 Vancomycin Hcl 125 Mg Capsule PO 125 mg Q6H [facility] Administration Time Spent With Patient Time: Total time spent is greater than 50% in coordination of care (as documented) at patient's floor/unit and/or counseling patient: Time with patient: less than 15 minutes
--- NOTE | 2020-12-31 12:17 | MHC.CM.PN ---
Patient will be discharged home today with resumption of services from [facility]. [facility] transport home at 3pm. Patient and nurse are aware.
--- NOTE | 2020-12-31 12:33 | P.DS_ITS ---
DS: Providers Provider Date of Service: 12/31/20 <Edith Moreno NP - Last Filed: 12/31/20 13:00> 12/31/20 <Lewis José MD - Last Filed: 12/31/20 13:58> Date of admission: 12/28/20 01:07 <Edith Moreno NP - Last Filed: 12/31/20 13:00> Primary care physician: Terry Ochoa MD <Edith Moreno NP - Last Filed: 12/31/20 13:00> Consults: 12/28/20 01:07 Consult to Gastroenterology Routine Consulting Provider: Jason Bingham Reason for consultation: N/V/Epigastri pain/poor intake; gastroperesis Consult to Nephrology Routine Consulting Provider: Darryn Linda Reason for consultation: CKD;hyperkalemia; Acidosis 12/29/20 20:48 Consult to Cardiology Routine Consulting Provider: Oren Amato Reason for consultation: chest pain <Edith Moreno NP - Last Filed: 12/31/20 13:00> DS: Diagnosis Discharge Diagnosis (1) Precordial chest pain: Status: Acute <Edith Moreno NP - Last Filed: 12/31/20 13:00> (2) Type 2 diabetes mellitus with unspecified complications: Status: Acute <Edith Moreno NP - Last Filed: 12/31/20 13:00> (3) Morbid obesity: Status: Acute <Edith Moreno NP - Last Filed: 12/31/20 13:00> (4) Acute kidney injury superimposed on CKD: Status: Acute <Edith Moreno NP - Last Filed: 12/31/20 13:00> (5) Acute hyperkalemia: Status: Acute <Edith Moreno NP - Last Filed: 12/31/20 13:00> (6) Essential hypertension: Status: Acute <Edith Moreno NP - Last Filed: 12/31/20 13:00> DS: Medications Discharge Medications Home Medications: Home Medications Medication Instructions Recorded Confirmed levothyroxine 25 mcg PO DAILY 07/31/20 12/28/20 Lantus U-100 Insulin 95 unit SUBCUT BID 10/09/20 12/28/20 Rayaldee 30 mcg PO DAILY 10/09/20 12/28/20 alcohol swabs 0 pad TOPICAL BID 12/20/20 12/28/20 lancets 28 gauge #100 ea 12/20/20 12/20/20 nystatin 1 appful TOPICAL QID 12/28/20 12/28/20 ropinirole 1 tab PO BEDTIME 12/28/20 12/28/20 torsemide 1 tab PO BID 12/28/20 12/28/20 Previous Rx's Medication Instructions Recorded omeprazole 40 mg PO BID@0630,1630 #120 cap 08/03/20 albuterol sulfate 90 mcg/actuation 2 puff INHALATION Q4H PRN 30 Days 09/05/20 aerosol inhaler #8.5 g acetaminophen 325 mg capsule 650 mg PO Q6H PRN #60 cap 11/04/20 dulaglutide 1.5 mg/0.5 mL 1.5 mg SUBCUT QWEEK #2 ml 11/04/20 subcutaneous pen injector insulin regular hum U-500 conc 500 30 unit SUBCUT TID #5 vial 12/13/20 unit/mL subcutaneous soln insulin syringe-needle U-100 1 mL #100 ea 12/18/20 30 gauge x 1/2 blood sugar diagnostic #50 ea 12/20/20 amlodipine 10 mg PO DAILY #60 tab 12/31/20 metoprolol tartrate 25 mg PO BID #60 tab 12/31/20 vancomycin 125 mg PO Q6H #32 cap 12/31/20 <Edith Moreno NP - Last Filed: 12/31/20 13:00> DS: Summary Hospital Course Hospital Course: HP as per admitting provider 60-year-old female with a past medical history of hypertension, diabetes, gastroparesis, history of gastritis/esophagitis, obesity, chronic kidney disease presented to the hospital with a chief complaint of nausea/vomiting. Patient mentioned that over the past few days she has been having nausea/vomiting and leading to decreased oral intake. Denies any chest pain palpitations lightheadedness dizziness. Denies any nausea vomiting diarrhea. Patient mentioned that she has been on Bactrim since December 20 for UTI. Still complains of urinary frequency and foul- smelling urine. Patient mentioned that she also takes losartan at home. Review of all other systems is negative except mentioned abov ER course: Per ER team patient on presentation noted of benign examination, labs showed hyperkalemia of 7.1 with no EKG changes follow-up chemistry showed potassium levels of 6.6. Patient given insulin, dextrose, calcium gluconate. Patient also noted to have acidosis-given sodium bicarbonate. Creatinine is better than prior values . Esophagitis and gastritis. Hx of EGD and gastric emptying study in 07/2020. Abdominal pain seemed to improve fairly quickly and diarrhea resolved 2 days back. Colitis antigen was positive again, PCR still pending. She was empirically started on 10 day oral vancomycin and will finish course at home. She will continue her PPI. Chest pain. Likely secondary to Hypertension. Pain was reproducible, troponins trended up but could be from elevated blood pressure. Referral for cardiology for outpatient work-up if needed. Hypertensive urgency. Treated and improved. Losartan was stopped due to worsening renal function. Her amlodipine was increased to 10mg daily and she was started on Metoprolol twice daily. Blood pressure was much better and losartan will be stopped. UTI. Patient admitted already being treated for UTI. She was continued on IV rocephin, urine cx was negative and rocephin was stopped. CKD. Baseline, losartan stopped. BP stable. Attending: Dr. José I saw and examined the patient and discussed discharge plan with mid level and answer patient's questions, I agree with discharge plan meds as outlined by Mid level. <Edith Moreno NP - Last Filed: 12/31/20 13:00> Time Spent with Patient Time attestation: Total time spent providing and/or coordinating discharge services: <Edtih Moreno NP - Last Filed: 12/31/20 13:00> Discharge coordination time: Greater than 30 minutes <Lewis José MD - Last Filed: 12/31/20 13:58> Physical Exam Vital Signs: Vital Signs: Last Vital Signs Temp 97.1 F 12/31/20 11:42 Pulse 61 12/31/20 11:42 Resp 20 12/31/20 11:42 BP 111/55 L 12/31/20 11:42 Pulse Ox 98 12/31/20 11:42 Body Mass Index 62.4 <Edith Moreno NP - Last Filed: 12/31/20 13:00> Appearing in no acute distress head is normocephalic atraumatic eyes pupils are PERRLA sclera is anicteric mouth throat mucous membranes are intact and moist neck is supple no lymphadenopathy, no JVD noted lung sounds are clear to auscultation heart regular rate rhythm, clear S1, S2 positive bowel sounds, abdomen is soft, nontender neuro patient is alert x3, no focal deficits <Edith Moreno NP - Last Filed: 12/31/20 13:00> DS: Data Data Completed and Pending Completed studies during hospitalization [Text1]: Procedures Excision of Duodenum, Via Natural or Artificial Opening Endoscopic, Diagnostic (07/31/20) Excision of Stomach, Pylorus, Via Natural or Artificial Opening Endoscopic, Diagnostic (07/31/20) <Edith Moreno NP - Last Filed: 12/31/20 13:00> Labs on day of discharge: Laboratory Results - last 24 hr 12/30/20 12/30/20 12/30/20 15:38 16:06 20:58 POC Glucose 98 130 H U Random Total Protein 294 H Urine Creatinine 53.42 12/31/20 12/31/20 12/31/20 04:01 07:02 10:57 POC Glucose 83 106 135 H U Random Total Protein Urine Creatinine <Edith Moreno NP - Last Filed: 12/31/20 13:00> Discharge Plan Discharge Anticipated Discharge Date/Time: 12/31/20 12:01 <Edith Moreno NP - Last Filed: 12/31/20 13:00> Patient Disposition: Home Health Service <Edith Moreno NP - Last Filed: 12/31/20 13:00> Discharge Diagnosis: Gastroparesis gastritis chest pain hypertensive urgency <Edith Moreno NP - Last Filed: 12/31/20 13:00> Gastroparesis gastritis chest pain hypertensive urgency <Lewis José MD - Last Filed: 12/31/20 13:58> Referrals: Jimena Akhtar [Outside] - 1 Week Terry Ochoa MD [Primary Care Provider] - 1 Week <Edith Moreno NP - Last Filed: 12/31/20 13:00> Discharge Medications: New amlodipine 5 mg Tablet 10 mg PO DAILY Qty: 60 RF: 0 vancomycin 125 mg Capsule 125 mg PO Q6H Qty: 32 RF: 0 metoprolol tartrate 25 mg Tablet 25 mg PO BID Qty: 60 RF: 0 Continued albuterol sulfate 90 mcg/actuation HFA aerosol inhaler 2 puff inhalation Q4H PRN (Reason: bronchospasm) 30 Days Qty: 8.5 RF: 5 Trulicity 1.5 mg/0.5 mL pen injector 1.5 mg subcut QWEEK Qty: 2 RF: 3 acetaminophen [Tylenol] 325 mg capsule 650 mg PO Q6H PRN (Reason: pain) Qty: 60 RF: 3 Humulin R U-500 (Conc) Insulin 500 unit/mL solution 30 unit subcut TID Qty: 5 RF: 8 (DME) insulin syringe-needle U-100 [BD Insulin Syringe Ultra-Fine] 1 mL 30 gauge x 1/2 syringe See Rx Instructions .ROUTE .MEDSUPPLY Qty: 100 RF: 3 Rayaldee 30 mcg capsule,extended release 24 hr 30 mcg PO DAILY RF: 0 Lantus U-100 Insulin 100 unit/mL Solution 95 unit SUBCUT BID RF: 0 torsemide 100 mg tablet 1 tab PO BID RF: 0 ropinirole 0.5 mg tablet 1 tab PO BEDTIME RF: 0 nystatin 100,000 unit/gram powder 1 appful topical QID RF: 0 levothyroxine 25 mcg tablet 25 mcg PO DAILY RF: 0 omeprazole 20 mg Capsule,Delayed Release(Dr/Ec) 40 mg PO BID@0630,1630 Qty: 120 RF: 0 alcohol swabs Pads, Medicated 0 pad topical BID RF: 0 (DME) lancets 28 gauge misc See Rx Instructions ea topical .MEDSUPPLY Qty: 100 RF: 0 (DME) blood sugar diagnostic Strip See Rx Instructions ea .ROUTE .MEDSUPPLY Qty: 50 RF: 8 Discontinued amlodipine 5 mg tablet 5 mg PO DAILY Qty: 30 RF: 6 sulfamethoxazole-trimethoprim 800-160 mg tablet 1 tab PO BID RF: 0 losartan 25 mg tablet 1 tab PO DAILY RF: 0 losartan 100 mg tablet 100 mg PO DAILY RF: 0 <Edith Moreno NP - Last Filed: 12/31/20 13:00> Discharge Orders: Discharge Order (Routine); Ordered 12/31/20 Ordered By: Edith Moreno <Edith Moreno NP - Last Filed: 12/31/20 13:00> Diet: advance to usual diet <Edith Moreno NP - Last Filed: 12/31/20 13:00> advance to usual diet <Lewis José MD - Last Filed: 12/31/20 13:58> Activity on Discharge: As tolerated <Edith Moreno NP - Last Filed: 12/31/20 13:00> As tolerated <Lewis José MD - Last Filed: 12/31/20 13:58> Stand Alone Forms: Patient Portal Discharge page <Edith Moreno NP - Last Filed: 12/31/20 13:00> Care Plan Goals: Resolution of muscle pain <Edith Moreno NP - Last Filed: 12/31/20 13:00> Health Concerns: Gastroparesis Gastritis Hypertension Chest pain <Edith Moreno NP - Last Filed: 12/31/20 13:00> Plan of Treatment: Follow up with your primary care provider as needed Losartan, which is for your blood pressure, was stopped and your Amlodipine, which is also for your blood pressure was increased. <Edith Moreno NP - Last Filed: 12/31/20 13:00> Assessment: See discharge summary <Edith Moreno NP - Last Filed: 12/31/20 13:00>
[2021-01-01 14:42] LABS: IgA 323 mg/dL (70-320); IgG 499 mg/dL (600-1540); IgM 88 mg/dL (50-300)
== END 2020-12-31 15:34 | disposition home health service (06) | DRG 372 ==
LOC: HO.ED 12-28 01:10 → HO.EDOVER 12-28 01:23 → HO.IMC 12-28 15:33
PROVIDERS: Internal Medicine; Internal Medicine Nephrology; Nurse Practitioner Acute Care; Admitting Provider Hospitalist; Emergency Provider Internal Medicine; PCP Internal Medicine; Visit Provider Internal Medicine
DX: A04.71 Enterocolitis due to Clostridium difficile, recurrent (principal); N17.9 Acute kidney failure, unspecified; Z68.44 Body mass index [BMI] 60.0-69.9, adult; E87.2 Acidosis; N39.0 Urinary tract infection, site not specified; I16.0 Hypertensive urgency; I12.9 Hypertensive chronic kidney disease with stage 1 through stage 4 chronic kidney disease, or unspecified chronic kidney disease; E66.01 Morbid (severe) obesity due to excess calories; E87.5 Hyperkalemia; E03.9 Hypothyroidism, unspecified; T36.8X5A Adverse effect of other systemic antibiotics, initial encounter; Y92.9 Unspecified place or not applicable; E11.649 Type 2 diabetes mellitus with hypoglycemia without coma; E11.65 Type 2 diabetes mellitus with hyperglycemia; E11.22 Type 2 diabetes mellitus with diabetic chronic kidney disease; N18.32 Chronic kidney disease, stage 3b; Z79.4 Long term (current) use of insulin; Z79.890 Hormone replacement therapy; Z79.899 Other long term (current) drug therapy
CPT/HCPCS: 36415; 71045; 76705; 76775; 78580; 80048; 80051; 80076; 81001; 82784; 82947; 83690; 84156; 84300; 84484; 85025; 86334; 87086; 87324; 87449; 87493; 87635; 93005; 93306; 96365; 96366; 96367; 96372; 96375; 97162; 99285; A9540; J0610; J0696; J2405; J2765

== ENCOUNTER → 2021-01-10 08:13 | Outpatient (BNVA) | payer MEDICARE, MEDICAID, SELFPAY | PROVIDERS: PCP Internal Medicine; Visit Provider Internal Medicine Gastroenterology | CPT/HCPCS: Q3014 ==

== ENCOUNTER → 2021-04-01 11:05 | Outpatient (BNVA) | payer MEDICARE, MEDICAID, SELFPAY | PROVIDERS: PCP Internal Medicine; Visit Provider Urology | CPT/HCPCS: Q3014 ==

== ENCOUNTER 2021-05-31 20:59 | Inpatient (IN) | payer MEDICARE, MEDICAID, SELFPAY ==
--- NOTE | ~2021-05-31 | CT_ITS ---
EXAMINATION: CT HEAD WITHOUT CONTRAST CLINICAL INFORMATION: Dizziness. COMPARISON: No similar priors. TECHNIQUE: Contiguous axial imaging was performed from the skull base to vertex without intravenous administration of contrast. This CT examination was performed using dose optimization techniques as appropriate, variously including the following: *Automated exposure control *Adjustment of mA and/or kV according to patient size (this includes techniques or standardized protocols for targeted exams where dose is matched to indication/reason for exam; i.e. extremities or head) *Use of iterative reconstruction technique DLP: 1879 mGy-cm FINDINGS: There is no evidence of acute intracranial hemorrhage or edematous territorial infarction. A few foci of hypoattenuation in the periventricular and deep white matter are consistent with mild microangiopathy. Magallanes-white matter differentiation is preserved. The ventricles are normal in size and configuration. No evidence for obstructive hydrocephalus. No abnormal mass effect or midline shift. No extra-axial fluid collections. No acute soft tissue or osseous abnormalities. Mild mucoperiosteal thickening of the paranasal sinuses. The mastoids are clear. Poor dentition with periapical lucencies, consider dental consultation. CT/CT head/brain wo con IMPRESSION: No evidence of acute intracranial hemorrhage or edematous territorial infarction.
--- NOTE | ~2021-05-31 | XR_ITS ---
EXAMINATION: XR CHEST CLINICAL INFORMATION: Cough. COMPARISON: Most recent chest radiograph dated 12/30/2020. TECHNIQUE: Frontal view of the chest was obtained. FINDINGS: Trace left-sided pleural effusion, new when compared to the prior examination. No large focal airspace consolidation. Stable cardiomediastinal silhouette. No pneumothorax. XR/XR chest 1V IMPRESSION: Trace left-sided pleural effusion, new when compared to the prior examination.
--- NOTE | ~2021-05-31 | CT_ITS ---
EXAMINATION: CT ABDOMEN AND PELVIS WITHOUT CONTRAST CLINICAL INFORMATION: Abdominal pain. COMPARISON: Multiple priors, most recent abdominal ultrasound dated 12/29/[address] abdomen/pelvis dated 10/09/2020. TECHNIQUE: Multidetector volumetric imaging was performed from the superior aspect of the liver through the pubic symphysis. Sagittal and coronal reformatted images were obtained on the technologist's workstation. This CT examination was performed using dose optimization techniques as appropriate, variously including the following: *Automated exposure control. *Adjustment of mA and/or kV according to patient size (this includes techniques or standardized protocols for targeted exams where dose is matched to indication/reason for exam; i.e. extremities or head). *Use of iterative reconstruction technique. DLP: 2980 mGy-cm FINDINGS: LUNG BASES: Bibasilar dependent atelectasis. LIVER, GALLBLADDER, AND BILIARY TREE: The liver is normal in size, shape, and attenuation. No focal hepatic lesion or biliary ductal dilatation is present. The gallbladder is unremarkable with no evidence of radiopaque gallstones, gallbladder wall thickening, or obvious pericholecystic inflammatory changes. PANCREAS: Atrophic. SPLEEN: Unremarkable. ADRENAL GLANDS: Probable left adrenal adenoma with macroscopic fat, unchanged. No new adrenal nodule. KIDNEYS AND URETERS: The kidneys are normal in size, shape, and attenuation. Redemonstration of non-obstructing midpole 0.3 cm and lower pole 0.2 cm renal stones, unchanged. No new renal or ureteral stone. No hydronephrosis or hydroureter. No perinephric stranding. BLADDER: Nondistended and unremarkable. GASTROINTESTINAL TRACT: There are a few scattered sigmoid diverticula. No evidence of acute diverticulitis. No bowel wall thickening or associated inflammatory change. No small or large bowel obstruction. Unremarkable appendix. PERITONEAL CAVITY: No intra-abdominal free air or free fluid. No intra-abdominal mass or organized fluid collection/abscess formation. ABDOMINAL WALL: No significant abdominal wall hernia. Subcutaneous edema along the right abdominal wall, increased when compared to the prior examination. LYMPH NODES: No significant lymphadenopathy, however, evaluation is limited without IV contrast. VASCULAR: Unremarkable. PELVIC VISCERA: The uterus and adnexa are unremarkable. OSSEOUS STRUCTURES: Unremarkable. CT/CT abdomen pelvis wo con IMPRESSION: 1. Diverticulosis without evidence of acute diverticulitis. No bowel wall thickening or associated inflammatory change. No small or large bowel obstruction. Unremarkable appendix. 2. No intra-abdominal mass, ascites, or lymphadenopathy. 3. Subcutaneous edema throughout the right abdominal wall, slightly increased when compared to the prior examination. 4. Additional chronic findings are unchanged.
--- NOTE | ~2021-05-31 | FL_ITS ---
EXAMINATION: FL SMALL BOWEL SERIES CLINICAL INFORMATION: Nausea and vomiting COMPARISON: None TECHNIQUE: Following a laborer electroplating image of the abdomen, contrast was administered orally, and interval abdominal radiographs were performed to assess for contrast progression through the small bowel. Following contrast transit through the small bowel and into the colon, the patient was placed on the fluoroscopy table, and multiple spot images were obtained. FINDINGS: Assistant Merchandise Manager image of the abdomen demonstrates slightly distended loops of small bowel. Contrast reaches the large bowel by 4 hours and 50 minutes. Small bowel loops are of normal caliber throughout the abdomen and pelvis. The jejunal and ileal fold patterns are normal, without evidence of abnormal thickening. No fixed regions of luminal narrowing are seen to suggest stricturing. The terminal ileum demonstrates a normal appearance. FLUOROSCOPY TIME: 0.1 minutes DOSE AREA PRODUCT: 2.6 rubin per centimeter squared. 31 images. FL/FL small bowel follow through IMPRESSION: Delayed small bowel transit. Otherwise unremarkable small bowel bowel series.
[2021-05-31 21:12] VITALS: BP 172/52; PULSE 70; RESP 16; TEMP 37.2; O2SAT 97; BMI 66.6
--- NOTE | 2021-05-31 21:48 | ECG_ITS ---
Test Reason : SOB Blood Pressure : / mmHG Vent. Rate : 065 BPM Atrial Rate : 066 BPM P-R Int : 000 ms QRS Dur : 082 ms QT Int : 416 ms P-R-T Axes : 000 -28 012 degrees QTc Int : 432 ms Normal sinus rhythm Low voltage QRS Abnormal ECG When compared with ECG of 30-DEC-2020 13:32, No significant change was found Referred By: Kinsey Gillette Electronically Signed By:JULIAN GARAY
--- NOTE | 2021-05-31 22:09 | ED_ITS ---
HPI - General Adult General Chief complaint: General Medical Stated complaint: ? neck pain or hand pain Time Seen by Provider: 05/31/21 21:47 Source: patient Mode of arrival: EMS History of Present Illness HPI narrative: 60-year-old female who is brought in by EMS for complaints of ?my legs no longer support me?. Otherwise, she denies any sore throat, cough, fever, chills, change in breathing, chest pain/palpitations and states that she has been peeing and pooping in the bed because she cannot get around anymore. She has been attending a weight management class but states that she has not seen a primary care provider since before COVID. Spoke with patient's geriatric physician who has concerns regarding patient's increase of dyspnea on exertion, although patient did not describe this symptom. Related Data Home Medications Medication Instructions Recorded Confirmed levothyroxine 25 mcg tablet 25 mcg PO DAILY 07/31/20 04/23/21 calcifediol 30 mcg capsule,24 30 mcg PO DAILY 10/09/20 04/23/21 hr,extended release (Rayaldee) insulin glargine 100 unit/mL 95 unit SUBCUT BID 10/09/20 04/23/21 subcutaneous solution (Lantus U-100 Insulin) torsemide 100 mg tablet 1 tab PO BID 12/28/20 04/23/21 Previous Rx's Medication Instructions Recorded amlodipine 5 mg tablet 10 mg PO DAILY #60 tab 12/31/20 lancets 28 gauge (FreeStyle 28 gauge TOPICAL .COMPLEX #200 cap 01/18/21 Lancets) alcohol swabs 1 pad TOPICAL BID 90 Days #200 pad 03/10/21 ropinirole 0.5 mg tablet 0.5 mg PO BEDTIME #90 tab 03/10/21 acetaminophen 325 mg capsule 650 mg PO Q6H PRN #60 cap 03/17/21 (Tylenol) albuterol sulfate 90 mcg/actuation 2 puff INHALATION Q4H PRN 30 Days 03/24/21 aerosol inhaler #8.5 g insulin syringe-needle U-100 1 mL #100 ea 03/26/21 30 gauge x 1/2 (BD Insulin Syringe Ultra-Fine) blood sugar diagnostic #200 ea 04/07/21 blood sugar diagnostic (Accu-Chek #300 ea 04/08/21 Berna Plus test strp) miscellaneous medical supply See Rx Instructions MISCELLANEOUS 05/06/21 .COMPLEX #1 ea insulin regular hum U-500 conc 500 30 unit SUBCUT TID 90 Days #16.2 ml 05/22/21 unit/mL subcutaneous soln (Humulin R U-500 (Concentrated) Insulin) oxybutynin chloride 10 mg 10 mg PO DAILY 30 Days #30 tab 05/26/21 tablet,extended release 24 hr Allergies Allergy/AdvReac Type Severity Reaction Status Date / Time metformin [METFORMIN] Allergy Severe HIVES Verified 04/23/21 13:42 canagliflozin [From Invokana] Allergy Hives Verified 04/23/21 13:42 Review of Systems Review of Systems: Pertinent positives and negatives as stated in HPI 10 point review of systems is otherwise negative. [facility] Past Medical History Source: nursing notes reviewed Medical History Bladder outlet obstruction CKD (chronic kidney disease) stage 4, GFR 15-29 ml/min Diabetes mellitus Diabetes mellitus with gastroparesis Esophagitis Essential hypertension Gastritis Hypertension Hypothyroidism IBS (irritable bowel syndrome) Intractable nausea and vomiting Morbid obesity Type 2 diabetes mellitus with obesity Type 2 diabetes mellitus with unspecified complications Surgical History History of tubal ligation Family History Family History Father Diabetes Mother Diabetes Hypertension Breast cancer Family/Other Breast cancer Uterine cancer Social History Social History Household Members: None Housing: Apartment Do you presently have visiting nurse or other home services: Yes (Jimena Tolentino) Alcohol intake: unknown Patient Tobacco Use Status: Never used Tobacco e-Cigarette/Vaping Use: Never Used Second Hand Smoke Exposure: No Advance Directives: No Advance Directives Information Provided: No service: No Current occupational status: disabled Physical Exam Vital Signs: Vital Signs: Last Vital Signs Temp 98.9 F 05/31/21 21:12 Pulse 70 05/31/21 21:12 Resp 16 05/31/21 21:12 BP 169/58 H 05/31/21 23:41 Pulse Ox 97 05/31/21 21:12 Body Mass Index 66.6 VITAL SIGNS: Reviewed. GENERAL: Morbidly obese, chronically ill, in no acute distress. HEAD: Normocephalic/atraumatic, EYES: PERRLA, EOMI OROPHARYNX: no oral lesions noted, posterior pharynx clear NECK: Supple, no adenopathy LUNGS: Normal breath sounds. No adventitious sounds or accessory muscle use. SpO2<97> CARDIOVASCULAR: Regular rate and rhythm without noted murmurs, no JVD but bilateral lower extremity edema although exam limited by body habitus ABDOMEN: Morbidly obese, clinical exam limited by body habitus, Soft, non- tender, non-distended with bowel sounds, patient also has a chronic pannus at the suprapubic area without erythema or induration that she states has not significantly increased in size. MUSCULOSKELETAL: No tenderness, deformities, or effusions noted on gross inspection. EXTREMITIES: No cyanosis, clubbing or edema. SKIN: Inspection of the skin reveals no rashes NEUROLOGIC: Alert and oriented x 4. Strength and sensation to light touch were grossly intact x 4. Course Course Course Narrative: 60-year-old female with history and clinical presentation with declining ability to perform ADLs and stating that she likely needs someone to care for her 22/03 and would be interested an possible long-term. Patient does describe bilateral lower extremity swelling and states that she has been taking her medications as prescribed. On review of all investigations there is further corroboration of likely CHF exacerbation with new left pleural effusion as well as a UTI. Patient received 80 mg of Lasix IV, will obtain blood cultures and lactic acid prior to administration of Rocephin. Suspect infection at this time (2330). Noted hyperkalemia without symptoms or noted EKG changes when compared to prior. Suspect that this will gradually resolve as well on administration of Lasix. Patient was informed of all results and findings as well as plan for admission. Case discussed with inpatient hospitalist who accepts admission. Medical Decision Making Lab Data Result diagrams: 05/31/21 22:27 05/31/21 22: Labs: Lab Results 05/31/21 05/31/21 05/31/21 Range/Units 22:27 22:27 22:27 WBC 9.7 (4.8-10.8) X10*3/uL RBC 3.13 L (4.20-5.50) X10*6/uL Hgb 9.5 L (12.0-16.0) g/dl Hct 29.8 L (37-47) % MCV 95.2 (80-98) fL MCH 30.4 (27.0-33.0) pg MCHC 31.9 (31.0-35.0) g/dl RDW 13.1 (11.0-16.0) % Plt Count 263 (160-400) X10*3/uL MPV 9.3 L (9.4-12.3) fL Immature Gran % (Auto) 0.3 (0.0-0.4) % Neut % (Auto) 61.9 (45-73) % Lymph % (Auto) 24.5 (20-40) % [place] % (Auto) 9.1 (2-11) % Eos % (Auto) 3.6 (0-4) % Baso % (Auto) 0.6 (0-2) % Lymph # (Auto) 2.4 (1.2-4.9) X10*3/uL [place] # (Auto) 0.9 (0.1-1.2) X10*3/uL Eos # (Auto) 0.4 (0.0-0.4) X10*3/uL Baso # (Auto) 0.1 (0.0-0.2) X10*3/uL Abs Immat Gran (auto) 0.03 (0.00-0.03) X10*3/uL Absolute Neuts (auto) 6.0 (2.0-8.3) X10*3/uL Absolute Nucleated RBC 0.000 (0.0-0.012) X10*3/uL Nucleated RBC % (auto) 0.0 (0.0-0.2) /100WBC PT (9.9-13.0) SEC INR (0.9-1.1) Sodium 137 (135-145) mmol/L Potassium 5.8 H D (3.3-5.1) mmol/L Chloride 109 H (96-108) mmol/L Carbon Dioxide 21 L (22-29) mmol/L Anion Gap 13 (12-20) BUN 30 H (9-16) mg/dL Creatinine 2.16 H (0.5-1.4) mg/dL Estim Creat Clear Calc 47.1 Estimated GFR 23 Random Glucose 329 H (60-115) mg/dL Lactic Acid (0.5-2.0) mmol/L Calcium 8.5 D (8.4-10.2) mg/dL Magnesium 1.7 (1.6-2.6) mg/dL Total Bilirubin 0.2 (0.0-1.0) mg/dL AST 13 (5-31) U/L ALT 11 (0-31) U/L Alkaline Phosphatase 167 H D (39-117) U/L B-Natriuretic Peptide (<100) pg/mL Total Protein 5.5 L (6.5-8.0) g/dL Albumin 2.6 L (3.5-5.0) g/dL Urine Color Urine Appearance Urine pH (5.0-8.0) Ur Specific [place] (1.005-1.025) Urine Protein (NEG-TRACE) MG/DL Urine Glucose (UA) (NEG) MG/DL Urine Ketones (NEG) MG/DL Urine Blood (NEG) Urine Nitrite (NEG) Ur Leukocyte Esterase (NEG) Urine RBC (0) /HPF Urine WBC (0-4) /HPF Ur Squamous Epith Cells /LPF Urine Bacteria /LPF Urine Mucus /LPF Acetone, Qual Negative (Negative) COVID-19 (SERA) Negative (Negative) COVID-19 Clin Com See Note 05/31/21 05/31/21 05/31/21 Range/Units 22:27 22:27 22:27 WBC (4.8-10.8) X10*3/uL RBC (4.20-5.50) X10*6/uL Hgb (12.0-16.0) g/dl Hct (37-47) % MCV (80-98) fL MCH (27.0-33.0) pg MCHC (31.0-35.0) g/dl RDW (11.0-16.0) % Plt Count (160-400) X10*3/uL MPV (9.4-12.3) fL Immature Gran % (Auto) (0.0-0.4) % Neut % (Auto) (45-73) % Lymph % (Auto) (20-40) % [place] % (Auto) (2-11) % Eos % (Auto) (0-4) % Baso % (Auto) (0-2) % Lymph # (Auto) (1.2-4.9) X10*3/uL [place] # (Auto) (0.1-1.2) X10*3/uL Eos # (Auto) (0.0-0.4) X10*3/uL Baso # (Auto) (0.0-0.2) X10*3/uL Abs Immat Gran (auto) (0.00-0.03) X10*3/uL Absolute Neuts (auto) (2.0-8.3) X10*3/uL Absolute Nucleated RBC (0.0-0.012) X10*3/uL Nucleated RBC % (auto) (0.0-0.2) /100WBC PT 10.8 (9.9-13.0) SEC INR 1.0 (0.9-1.1) Sodium (135-145) mmol/L Potassium (3.3-5.1) mmol/L Chloride (96-108) mmol/L Carbon Dioxide (22-29) mmol/L Anion Gap (12-20) BUN (9-16) mg/dL Creatinine (0.5-1.4) mg/dL Estim Creat Clear Calc Estimated GFR Random Glucose (60-115) mg/dL Lactic Acid (0.5-2.0) mmol/L Calcium (8.4-10.2) mg/dL Magnesium (1.6-2.6) mg/dL Total Bilirubin (0.0-1.0) mg/dL AST (5-31) U/L ALT (0-31) U/L Alkaline Phosphatase (39-117) U/L B-Natriuretic Peptide 515 H (<100) pg/mL Total Protein (6.5-8.0) g/dL Albumin (3.5-5.0) g/dL Urine Color YELLOW Urine Appearance CLEAR Urine pH 7.0 (5.0-8.0) Ur Specific [place] 1.020 (1.005-1.025) Urine Protein 2+ H (NEG-TRACE) MG/DL Urine Glucose (UA) >=1000 H (NEG) MG/DL Urine Ketones NEG (NEG) MG/DL Urine Blood 1+ H (NEG) Urine Nitrite POS H (NEG) Ur Leukocyte Esterase NEG (NEG) Urine RBC 1-4 (0) /HPF Urine WBC 1-4 (0-4) /HPF Ur Squamous Epith Cells 1+ /LPF Urine Bacteria 2+ /LPF Urine Mucus 1+ /LPF Acetone, Qual (Negative) COVID-19 (SERA) (Negative) COVID-19 Clin Com 05/31/21 Range/Units 23:38 WBC (4.8-10.8) X10*3/uL RBC (4.20-5.50) X10*6/uL Hgb (12.0-16.0) g/dl Hct (37-47) % MCV (80-98) fL MCH (27.0-33.0) pg MCHC (31.0-35.0) g/dl RDW (11.0-16.0) % Plt Count (160-400) X10*3/uL MPV (9.4-12.3) fL Immature Gran % (Auto) (0.0-0.4) % Neut % (Auto) (45-73) % Lymph % (Auto) (20-40) % [place] % (Auto) (2-11) % Eos % (Auto) (0-4) % Baso % (Auto) (0-2) % Lymph # (Auto) (1.2-4.9) X10*3/uL [place] # (Auto) (0.1-1.2) X10*3/uL Eos # (Auto) (0.0-0.4) X10*3/uL Baso # (Auto) (0.0-0.2) X10*3/uL Abs Immat Gran (auto) (0.00-0.03) X10*3/uL Absolute Neuts (auto) (2.0-8.3) X10*3/uL Absolute Nucleated RBC (0.0-0.012) X10*3/uL Nucleated RBC % (auto) (0.0-0.2) /100WBC PT (9.9-13.0) SEC INR (0.9-1.1) Sodium (135-145) mmol/L Potassium (3.3-5.1) mmol/L Chloride (96-108) mmol/L Carbon Dioxide (22-29) mmol/L Anion Gap (12-20) BUN (9-16) mg/dL Creatinine (0.5-1.4) mg/dL Estim Creat Clear Calc Estimated GFR Random Glucose (60-115) mg/dL Lactic Acid 1.0 (0.5-2.0) mmol/L Calcium (8.4-10.2) mg/dL Magnesium (1.6-2.6) mg/dL Total Bilirubin (0.0-1.0) mg/dL AST (5-31) U/L ALT (0-31) U/L Alkaline Phosphatase (39-117) U/L B-Natriuretic Peptide (<100) pg/mL Total Protein (6.5-8.0) g/dL Albumin (3.5-5.0) g/dL Urine Color Urine Appearance Urine pH (5.0-8.0) Ur Specific [place] (1.005-1.025) Urine Protein (NEG-TRACE) MG/DL Urine Glucose (UA) (NEG) MG/DL Urine Ketones (NEG) MG/DL Urine Blood (NEG) Urine Nitrite (NEG) Ur Leukocyte Esterase (NEG) Urine RBC (0) /HPF Urine WBC (0-4) /HPF Ur Squamous Epith Cells /LPF Urine Bacteria /LPF Urine Mucus /LPF Acetone, Qual (Negative) COVID-19 (SERA) (Negative) COVID-19 Clin Com ECG Data Attestation: I personally reviewed and interpreted this ECG as follows: Prior ECG tracings: available for review (12/30/20) Interpretation: Sinus rhythm, HR-65, no STEMI, QRS/QTC are within normal limits. Discharge Plan Discharge Clinical Impression: CHF exacerbation, Pleural effusion, left, UTI (urinary tract infection) Patient Disposition: Admitted As Inpatient
[2021-05-31 22:34] LABS: MANUAL DIFF FLAG NO
[2021-05-31 22:36] LABS: Appearance Urine CLEAR; Basophils Absolute Auto 0.1 X10*3/uL (0.0-0.2); Basophils Percent Auto 0.6 % (0-2); Color Urine YELLOW; Eosinophils Absolute Auto 0.4 X10*3/uL (0.0-0.4); Eosinophils Percent Auto 3.6 % (0-4); Glucose Urine UA >=1000 MG/DL (NEG); Hematocrit 29.8 % (37-47); Hemoglobin 9.5 g/dl (12.0-16.0); Imm Gran Abs Auto 0.03 X10*3/uL (0.00-0.03); Imm Gran Pct Auto 0.3 % (0.0-0.4); Leukocyte Esterase Urine NEG (NEG); Lymphocytes Absolute Auto 2.4 X10*3/uL (1.2-4.9); Lymphocytes Percent Auto 24.5 % (20-40); Mean Corpuscular HGB Conc 31.9 g/dl (31.0-35.0); Mean Corpuscular Hemoglobin 30.4 pg (27.0-33.0); Mean Corpuscular Volume 95.2 fL (80-98); Mean Platelet Volume 9.3 fL (9.4-12.3); Monocytes Absolute Auto 0.9 X10*3/uL (0.1-1.2); Monocytes Percent Auto 9.1 % (2-11); Neutrophils Percent Auto 61.9 % (45-73); Nitrite Urine POS (NEG); Platelet Count 263 X10*3/uL (160-400); Red Blood Count 3.13 X10*6/uL (4.20-5.50); Red Cell Distribution Width 13.1 % (11.0-16.0); UACC Culture Trigger YES; Urine Blood 1+ (NEG); Urine Ketones NEG (NEG); Urine Protein 2+ MG/DL (NEG-TRACE); White Blood Count 9.7 X10*3/uL (4.8-10.8)
[2021-05-31 22:41] LABS: Prothrombin Time 10.8 SEC (9.9-13.0)
[2021-05-31 22:45] LABS: Bacteria Urine 2+ /LPF; Mucus Urine 1+ /LPF; Squamous Epithelial Cell Urine 1+ /LPF
[2021-05-31 22:53] LABS: COVID-19 Test Negative (Negative)
[2021-05-31 22:54] LABS: Alanine Aminotransferase 11 U/L (0-31); Albumin Level 2.6 g/dL (3.5-5.0); Alkaline Phosphatase 167 U/L (39-117); Anion Gap 13 (12-20); Aspartate Amino Transferase 13 U/L (5-31); Bilirubin Total 0.2 mg/dL (0.0-1.0); Blood Urea Nitrogen 30 mg/dL (9-16); Calcium 8.5 mg/dL (8.4-10.2); Carbon Dioxide 21 mmol/L (22-29); Chloride 109 mmol/L (96-108); Creatinine Clr Calc Pharmacy 47.1; Estimated Glomerular Filt Rate 23; Glucose Random 329 mg/dL (60-115); Magnesium 1.7 mg/dL (1.6-2.6); Potassium 5.8 mmol/L (3.3-5.1); Sodium 137 mmol/L (135-145); Total Protein 5.5 g/dL (6.5-8.0)
[2021-05-31 23:00] LABS: B Type Natriuretic Peptide 515 pg/mL (<100)
[2021-05-31 23:31] LABS: Acetone, serum QL Negative (Negative)
[2021-05-31] MEDS: Furosemide 100 MG/10 ML VIAL 80 MG IVPUSH (23:40)
[2021-05-31 23:41] VITALS: BP 169/58
--- NOTE | 2021-05-31 23:45 | P.HPHOSP_ITS ---
History of Present Illness Date of Service: 05/31/21 Chief Complaint: shortness of breath 60-year-old female with morbid obesity, diabetes, hypertension, chronic kidney disease are who called EMS to be brought to the emergency room because he is no longer been able to take care of herself. She stated that she has been having difficulty getting out of bed or stand on her own and as a result is not been able to get out of bed and has been voiding in bed and defecating in bed as well. Additionally she has been complaining about shortness of breath and leg edema. Workup in the ED has revealed heart failure, and UTI and has received IV Lasix and IV antibiotics and is been admitted for further management Review of Systems Review of Systems: Gen: no fever Resp: + sob, no cough CV: no chest, + PRESTON, + leg edema GI: No n/v, no abd pain Neuro: No confusion Yes all other systems are reviewed and are negative [facility] Medical History Bladder outlet obstruction CKD (chronic kidney disease) stage 4, GFR 15-29 ml/min Diabetes mellitus Diabetes mellitus with gastroparesis Esophagitis Essential hypertension Gastritis Hypertension Hypothyroidism IBS (irritable bowel syndrome) Intractable nausea and vomiting Morbid obesity Type 2 diabetes mellitus with obesity Type 2 diabetes mellitus with unspecified complications Family History Father Diabetes Mother Diabetes Hypertension Breast cancer Family/Other Breast cancer Uterine cancer Pertinent family history: . Surgical History History of tubal ligation Social History Household Members: None Housing: Apartment Do you presently have visiting nurse or other home services: Yes ([facility] [place]) Alcohol intake: unknown Patient Tobacco Use Status: Never used Tobacco e-Cigarette/Vaping Use: Never Used Second Hand Smoke Exposure: No Advance Directives: No Advance Directives Information Provided: No service: No Current occupational status: disabled Meds Allergies Allergy/AdvReac Type Severity Reaction Status Date / Time metformin [METFORMIN] Allergy Severe HIVES Verified 04/23/21 13:42 canagliflozin [From Invokana] Allergy Hives Verified 04/23/21 13:42 Active Medications: Current Medications Enoxaparin Sodium (Enoxaparin Sodium 40 Mg/0.4 Ml Syringe) 40 mg SUBCUT Q24H [facility] Sodium Chloride (0.9 % Sodium Chloride Flush 3 Ml Syringe) 3 ml IVFLUSH QSHIFT [facility] Home Medications Medication Instructions Recorded Confirmed Last Taken Type levothyroxine 25 mcg tablet 25 mcg PO DAILY 07/31/20 04/23/21 Unknown History calcifediol 30 mcg capsule,24 30 mcg PO DAILY 10/09/20 04/23/21 Unknown History hr,extended release (Rayaldee) insulin glargine 100 unit/mL 95 unit SUBCUT BID 10/09/20 04/23/21 Unknown History subcutaneous solution (Lantus U-100 Insulin) torsemide 100 mg tablet 1 tab PO BID 12/28/20 04/23/21 Unknown History Physical Exam Vital Signs and Narrative: Vital Signs: Last Vital Signs Temp 98.9 F 05/31/21 21:12 Pulse 70 05/31/21 21:12 Resp 16 05/31/21 21:12 BP 169/58 H 05/31/21 23:41 Pulse Ox 97 05/31/21 21:12 Body Mass Index 66.6 Constitutional Awake and Alert, No apparent distress HEENT-anicteric, Neck Supple, No lymphadenopathy Cardiovascular RRR, No M/R/G, S1 S2, No S3 S4, 1+ leg edema Respiratory diminish sound bilateral, has to stop frequently to cath her breath Gastrointestinal Non tender, Non-distended Skin large lower abdomen panus, no rash Neurological Alert & oriented x3 Psychological Appropriate affect Results Labs CBC and Chem 7: 05/31/21 22:27 05/31/21 22:27 Labs: Laboratory Results - last 24 hr 05/31/21 05/31/21 05/31/21 22:27 22:27 22:27 MCV 95.2 MCH 30.4 MCHC 31.9 RDW 13.1 Plt Count 263 MPV 9.3 L Immature Gran % (Auto) 0.3 Neut % (Auto) 61.9 Lymph % (Auto) 24.5 Tripp % (Auto) 9.1 Eos % (Auto) 3.6 Baso % (Auto) 0.6 Lymph # (Auto) 2.4 Tripp # (Auto) 0.9 Eos # (Auto) 0.4 Baso # (Auto) 0.1 Abs Immat Gran (auto) 0.03 Absolute Neuts (auto) 6.0 Absolute Nucleated RBC 0.000 Nucleated RBC % (auto) 0.0 PT INR Anion Gap 13 Estim Creat Clear Calc 47.1 Estimated GFR 23 Random Glucose 329 H Lactic Acid Calcium 8.5 D Magnesium 1.7 Total Bilirubin 0.2 AST 13 ALT 11 Alkaline Phosphatase 167 H D B-Natriuretic Peptide Total Protein 5.5 L Albumin 2.6 L Urine Color Urine Appearance Urine pH Ur Specific [place] Urine Protein Urine Glucose (UA) Urine Ketones Urine Blood Urine Nitrite Ur Leukocyte Esterase Urine RBC Urine WBC Ur Squamous Epith Cells Urine Bacteria Urine Mucus Acetone, Qual Negative COVID-19 ([facility]ERA) Negative COVID-19 Clin Com See Note 05/31/21 05/31/21 05/31/21 22:27 22:27 22:27 MCV MCH MCHC RDW Plt Count MPV Immature Gran % (Auto) Neut % (Auto) Lymph % (Auto) Tripp % (Auto) Eos % (Auto) Baso % (Auto) Lymph # (Auto) Tripp # (Auto) Eos # (Auto) Baso # (Auto) Abs Immat Gran (auto) Absolute Neuts (auto) Absolute Nucleated RBC Nucleated RBC % (auto) PT 10.8 INR 1.0 Anion Gap Estim Creat Clear Calc Estimated GFR Random Glucose Lactic Acid Calcium Magnesium Total Bilirubin AST ALT Alkaline Phosphatase B-Natriuretic Peptide 515 H Total Protein Albumin Urine Color YELLOW Urine Appearance CLEAR Urine pH 7.0 Ur Specific [place] 1.020 Urine Protein 2+ H Urine Glucose (UA) >=1000 H Urine Ketones NEG Urine Blood 1+ H Urine Nitrite POS H Ur Leukocyte Esterase NEG Urine RBC 1-4 Urine WBC 1-4 Ur Squamous Epith Cells 1+ Urine Bacteria 2+ Urine Mucus 1+ Acetone, Qual COVID-19 (SERA) COVID-19 Clin Com 05/31/21 23:38 MCV MCH MCHC RDW Plt Count MPV Immature Gran % (Auto) Neut % (Auto) Lymph % (Auto) Tripp % (Auto) Eos % (Auto) Baso % (Auto) Lymph # (Auto) Tripp # (Auto) Eos # (Auto) Baso # (Auto) Abs Immat Gran (auto) Absolute Neuts (auto) Absolute Nucleated RBC Nucleated RBC % (auto) PT INR Anion Gap Estim Creat Clear Calc Estimated GFR Random Glucose Lactic Acid 1.0 Calcium Magnesium Total Bilirubin AST ALT Alkaline Phosphatase B-Natriuretic Peptide Total Protein Albumin Urine Color Urine Appearance Urine pH Ur Specific [place] Urine Protein Urine Glucose (UA) Urine Ketones Urine Blood Urine Nitrite Ur Leukocyte Esterase Urine RBC Urine WBC Ur Squamous Epith Cells Urine Bacteria Urine Mucus Acetone, Qual COVID-19 (SERA) COVID-19 Clin Com Imaging Radiologist's Impressions: Impressions Chest X-Ray 05/31/21 21:48 IMPRESSION: Trace left-sided pleural effusion, new when compared to the prior examination. Assessment and Plan (1) CHF exacerbation: Status: Acute (2) UTI (urinary tract infection): Status: Acute (3) Type 2 diabetes mellitus with obesity: Status: Acute 60-year-old female with super morbid obesity BMI over 60, history of diabetes, hypertension hyperlipidemia and history of heart failure presented with shortness of breath, and inability to care for herself and is found to have heart failure UTI, hyperkalemia and acute on chronic kidney failure. 1/Acute on chronic diastolic heart failure--last echo from december showed ef of 60 to 65 -IV lasix, ask cardiology to assess, may need repeat echo cardiology to decide -monitor electrolytes and B/Cr, I/O and weight 2. UTI--Ceftriaxone 3. RASHEEDA on CKD 3---possible cardiorenal syndrome, Monitor BMP while on Lasix, nephrology consult if worsening 4. Diabetes--Insulin (long-acting and short-acting) she takes Lantus 95 units twice a day at home, in addition to short-acting. 5. Morbid obesity with very large pannus that is impairing her function, she will likely benefit from weight loss surgery but to be considered on outpatient basis PT eval DVT prophylaxis--Heparin Quality Stroke Does the patient have a stroke diagnosis?: No VTE Prior VTE?: No VTE Risk Level:: Medical - moderate - high VTE Device Contraindication: Treatment Not Indicated VTE Drug Contraindication: N/A - Med Ordered
[2021-06-01] VITALS (10 sets, daily range): BP systolic 143–200; BP diastolic 57–109; PULSE 64–107; RESP 16–20; TEMP 36.1–36.9; O2SAT 96–99
--- NOTE | 2021-06-01 | ECG_ITS ---
Test Reason : CHEST PRESSURE Blood Pressure : / mmHG Vent. Rate : 073 BPM Atrial Rate : 073 BPM P-R Int : 152 ms QRS Dur : 088 ms QT Int : 402 ms P-R-T Axes : 062 -32 028 degrees QTc Int : 442 ms Normal sinus rhythm Left axis deviation Abnormal ECG When compared with ECG of 31-MAY-2021 22:20, No significant change was found Referred By: Jorge Logan Electronically Signed By:JULIAN GARAY
[2021-06-01] MEDS: cefTRIAXone sodium 2 GM in 0.9 % Sodium Chloride 50 ML IV (01:30)
[2021-06-01] MEDS: Heparin Sodium,Porcine 5,000 UNIT/ML VIAL 5000 UNIT SUBCUT ×4 (01:31→23:42)
[2021-06-01] MEDS: 0.9 % Sodium Chloride Flush 3 ML SYRINGE IVFLUSH ×4 (01:32→20:31)
[2021-06-01 02:03] LABS: B Type Natriuretic Peptide 536 pg/mL (<100)
[2021-06-01 07:22] LABS: Anion Gap 14 (12-20); Blood Urea Nitrogen 29 mg/dL (9-16); Calcium 8.6 mg/dL (8.4-10.2); Carbon Dioxide 20 mmol/L (22-29); Chloride 110 mmol/L (96-108); Creatinine Clr Calc Pharmacy 47.5; Estimated Glomerular Filt Rate 23; Glucose Random 251 mg/dL (60-115); Potassium 5.8 mmol/L (3.3-5.1); Sodium 138 mmol/L (135-145)
--- NOTE | 2021-06-01 08:37 | PC.NURSE ---
RN aware POC 215
[2021-06-01 08:44] LABS: Glucose, Whole Blood 215 mg/dL (60-115)
--- NOTE | 2021-06-01 10:02 | HO.PM.IMPN ---
Subjective Subjective Date of Service: 06/01/21 Interval History: cc: inability to get out of bed, orthopnea pain in panus, sob on lying down, unable to walk, dysuria Cardiovascular Cardiovascular: Reports no additional cardiovascular complaints Respiratory Respiratory: Reports no additional respiratory complaints Physical Exam Vital Signs: Vital Signs: Last Vital Signs Temp 98.4 F 06/01/21 08:39 Pulse 66 06/01/21 08:39 Resp 18 06/01/21 08:39 BP 167/71 H 06/01/21 08:39 Pulse Ox 97 06/01/21 08:39 Body Mass Index 66.6 General: AO X 3, uncomfortable, morbidly obese Resp: CTA bilateral, no accessory muscles used CVS: S1,S2,RRR GI: soft, tender over panus, non distended Neuro: motor grossly intact, alert Psych: appropriate affect, appropriate insight Objective Data Active Medications Furosemide (Furosemide 40 Mg/4 Ml Vial) 40 mg IVPUSH BID@0900,1800 [facility]; Protocol Heparin Sodium (Porcine) (Heparin Sodium,Porcine 5,000 Unit/Ml Vial) 5,000 unit SUBCUT Q8H [facility] Last Admin: 06/01/21 01:31 Dose: 5,000 unit Documented by: NOY Ceftriaxone Sodium 1 gm/ (Sodium Chloride) 50 mls @ 100 mls/hr IV Q24H [facility] Insulin Glargine (Insulin Glargine,Hum.Rec.Anlog 100 Unit/Ml 10 Ml Vial) 50 unit SUBCUT BID [facility] Insulin Human Lispro (Insulin Lispro 100 Unit/Ml 3 Ml Vial) 0 unit SUBCUT QIDACHS [facility]; Protocol Sodium Chloride (0.9 % Sodium Chloride Flush 3 Ml Syringe) 3 ml IVFLUSH QSHIFT [facility] Last Admin: 06/01/21 01:32 Dose: 3 ml Documented by: NOY Labs CBC & Chem 7: 05/31/21 22:27 06/01/21 06:45 Labs: Laboratory Results - last 24 hr 05/31/21 05/31/21 05/31/21 22:27 22:27 22:27 MCV 95.2 MCH 30.4 MCHC 31.9 RDW 13.1 Plt Count 263 MPV 9.3 L Immature Gran % (Auto) 0.3 Neut % (Auto) 61.9 Lymph % (Auto) 24.5 Henry % (Auto) 9.1 Eos % (Auto) 3.6 Baso % (Auto) 0.6 Lymph # (Auto) 2.4 Henry # (Auto) 0.9 Eos # (Auto) 0.4 Baso # (Auto) 0.1 Abs Immat Gran (auto) 0.03 Absolute Neuts (auto) 6.0 Absolute Nucleated RBC 0.000 Nucleated RBC % (auto) 0.0 PT INR Anion Gap 13 Creatinine 2.16 H Estim Creat Clear Calc 47.1 Estimated GFR 23 POC Glucose Random Glucose 329 H Lactic Acid Calcium 8.5 D Magnesium 1.7 Total Bilirubin 0.2 AST 13 ALT 11 Alkaline Phosphatase 167 H D B-Natriuretic Peptide Total Protein 5.5 L Albumin 2.6 L Urine Color Urine Appearance Urine pH Ur Specific [place] Urine Protein Urine Glucose (UA) Urine Ketones Urine Blood Urine Nitrite Ur Leukocyte Esterase Urine RBC Urine WBC Ur Squamous Epith Cells Urine Bacteria Urine Mucus Acetone, Qual Negative COVID-19 ([facility]ER[facility]) Negative COVID-19 Clin Com See Note 05/31/21 05/31/21 05/31/21 22:27 22:27 22:27 MCV MCH MCHC RDW Plt Count MPV Immature Gran % (Auto) Neut % (Auto) Lymph % (Auto) Henry % (Auto) Eos % (Auto) Baso % (Auto) Lymph # (Auto) Henry # (Auto) Eos # (Auto) Baso # (Auto) Abs Immat Gran (auto) Absolute Neuts (auto) Absolute Nucleated RBC Nucleated RBC % (auto) PT 10.8 INR 1.0 Anion Gap Creatinine Estim Creat Clear Calc Estimated GFR POC Glucose Random Glucose Lactic Acid Calcium Magnesium Total Bilirubin AST ALT Alkaline Phosphatase B-Natriuretic Peptide 515 H Total Protein Albumin Urine Color YELLOW Urine Appearance CLEAR Urine pH 7.0 Ur Specific [place] 1.020 Urine Protein 2+ H Urine Glucose (UA) >=1000 H Urine Ketones NEG Urine Blood 1+ H Urine Nitrite POS H Ur Leukocyte Esterase NEG Urine RBC 1-4 Urine WBC 1-4 Ur Squamous Epith Cells 1+ Urine Bacteria 2+ Urine Mucus 1+ Acetone, Qual COVID-19 ([facility]ERA) COVID-19 Clin Com 05/31/21 06/01/21 06/01/21 23:38 01:33 06:45 MCV MCH MCHC RDW Plt Count MPV Immature Gran % (Auto) Neut % (Auto) Lymph % (Auto) Henry % (Auto) Eos % (Auto) Baso % (Auto) Lymph # (Auto) Henry # (Auto) Eos # (Auto) Baso # (Auto) Abs Immat Gran (auto) Absolute Neuts (auto) Absolute Nucleated RBC Nucleated RBC % (auto) PT INR Anion Gap 14 Creatinine 2.14 H Estim Creat Clear Calc 47.5 Estimated GFR 23 POC Glucose Random Glucose 251 H Lactic Acid 1.0 Calcium 8.6 Magnesium Total Bilirubin AST ALT Alkaline Phosphatase B-Natriuretic Peptide 536 H Total Protein Albumin Urine Color Urine Appearance Urine pH Ur Specific [place] Urine Protein Urine Glucose (UA) Urine Ketones Urine Blood Urine Nitrite Ur Leukocyte Esterase Urine RBC Urine WBC Ur Squamous Epith Cells Urine Bacteria Urine Mucus Acetone, Qual COVID-19 ([facility]ERA) COVID-19 [facility] 06/01/21 08:36 MCV MCH MCHC RDW Plt Count MPV Immature Gran % (Auto) Neut % (Auto) Lymph % (Auto) Henry % (Auto) Eos % (Auto) Baso % (Auto) Lymph # (Auto) Henry # (Auto) Eos # (Auto) Baso # (Auto) Abs Immat Gran (auto) Absolute Neuts (auto) Absolute Nucleated RBC Nucleated RBC % (auto) PT INR Anion Gap Creatinine Estim Creat Clear Calc Estimated GFR POC Glucose 215 H Random Glucose Lactic Acid Calcium Magnesium Total Bilirubin AST ALT Alkaline Phosphatase B-Natriuretic Peptide Total Protein Albumin Urine Color Urine Appearance Urine pH Ur Specific [place] Urine Protein Urine Glucose (UA) Urine Ketones Urine Blood Urine Nitrite Ur Leukocyte Esterase Urine RBC Urine WBC Ur Squamous Epith Cells Urine Bacteria Urine Mucus Acetone, Qual COVID-19 ([facility]ERA) COVID-19 [facility] Assessment and Plan (1) Morbid obesity: Status: Acute (2) UTI (urinary tract infection): Status: Acute (3) CKD (chronic kidney disease) stage 4, GFR 15-29 ml/min: Status: Acute (4) Essential hypertension: Status: Acute (5) Type 2 diabetes mellitus with obesity: Status: Acute Assessment and Plan: 60F presented with inability to get out of bed and sob and dysuria acute on chronic diastoliic chf lasix iv, monitor is and os, bmp, cardio eval UTI rocpehin morbid obesity complicated by inability to ambulate can use binder for panus while ambulating, PT eval htn amlodipine DM basal bolus insulin, monitor poc CKD IV stable montior dvt prophylaxis - heparin sq Quality Stroke Does the patient have a stroke diagnosis?: No VTE Prior VTE?: No VTE Risk Level:: Medical - moderate - high VTE Device Contraindication: Treatment Not Indicated VTE Drug Contraindication: N/A - Med Ordered
--- NOTE | 2021-06-01 10:56 | PC.NURSE ---
this RN took report at 11am for pt. will get pt AM meds and update worklist.
--- NOTE | 2021-06-01 11:02 | PC.NURSE ---
pt transfered to a hosp floor bed, respostioned and washed up.
--- NOTE | 2021-06-01 11:46 | PC.NURSE ---
this RN took report at 11 am, pts morning Insulin was flagging in the OCT. Charted not given as lunch dose is now due.
[2021-06-01] MEDS: Insulin Glargine,Hum.rec.anlog 100 UNIT/ML 10 ML VIAL 50 UNIT SUBCUT (11:54)
--- NOTE | 2021-06-01 12:05 | P.CONCA_ITS ---
History of Present Illness History of Present Illness Date of Service: 06/01/21 Chief complaint: Heart failure Narrative: This is a cardiology consultation regarding congestive heart failure. She has a history of morbid obesity, diabetes, hypertension chronic kidney disease. It seems that EMS was called because of the fact the patient could not take care of herself. She has been having difficulty getting out of bed or stand on her own and hence has been voiding and difficulty eating in bed as well. Patient states that recently, her shortness of breath is more than usual and her leg swelling is also more than her usual. Some nonspecific chest pressure times. Last seen in the hospital in December of this year. At that time, she has had atypical chest pains and slight elevation of troponins that was thought to be from uncontrolled blood pressures and demand ischemia. Review of Systems Review of Systems: Yes all other systems are reviewed and are negative Cardiovascular: Cardiovascular: Reports as per HPI, Reports no additional cardiovascular complaints, Denies acrocyanosis, Denies cool extremities, Denies painful fingertips, Denies chest pain, Denies chest pain at rest, Denies diaphoresis, Denies syncope, Denies irregular heart rhythm, Denies claudication, Reports leg edema, Denies lightheadedness, Denies palpitations and Reports d yspnea Respiratory: Respiratory: Reports dyspnea Neurologic: Denies syncope Endocrine: Endocrine: Denies palpitations [facility] [place] Past Medical History Medical History (Updated 06/01/21 @ 12:09 by Maximino Cui MD) Bladder outlet obstruction CKD (chronic kidney disease) stage 4, GFR 15-29 ml/min Clostridium difficile diarrhea Detrusor dysfunction Esophagitis Essential hypertension Hypothyroidism IBS (irritable bowel syndrome) Morbid obesity Type 2 diabetes mellitus with obesity Family History Family History Father Diabetes Mother Diabetes Hypertension Breast cancer Family/Other Breast cancer Uterine cancer Surgical History Surgical History History of tubal ligation Social History Social History Household Members: None Housing: Apartment Do you presently have visiting nurse or other home services: Yes (Jimena Tolentino) Alcohol intake: unknown Patient Tobacco Use Status: Never used Tobacco e-Cigarette/Vaping Use: Never Used Second Hand Smoke Exposure: No Advance Directives: No Advance Directives Information Provided: No service: No Current occupational status: disabled Meds Allergies Allergy/AdvReac Type Severity Reaction Status Date / Time metformin [METFORMIN] Allergy Severe HIVES Verified 04/23/21 13:42 canagliflozin [From Invokana] Allergy Hives Verified 04/23/21 13:42 Active Medications: Current Medications Furosemide (Furosemide 40 Mg/4 Ml Vial) 40 mg IVPUSH BID@0900,1800 [facility]; Protocol Heparin Sodium (Porcine) (Heparin Sodium,Porcine 5,000 Unit/Ml Vial) 5,000 unit SUBCUT Q8H [facility] Last Admin: 06/01/21 11:53 Dose: 5,000 unit Documented by: Ceftriaxone Sodium 1 gm/ (Sodium Chloride) 50 mls @ 100 mls/hr IV Q24H [facility] Insulin Glargine (Insulin Glargine,Hum.Rec.Anlog 100 Unit/Ml 10 Ml Vial) 50 unit SUBCUT BID [facility] Last Admin: 06/01/21 11:54 Dose: 50 unit Documented by: Insulin Human Lispro (Insulin Lispro 100 Unit/Ml 3 Ml Vial) 0 unit SUBCUT QIDACHS [facility]; Protocol Last Admin: 06/01/21 11:46 Dose: Not Given Documented by: Sodium Chloride (0.9 % Sodium Chloride Flush 3 Ml Syringe) 3 ml IVFLUSH QSHIFT [facility] Last Admin: 06/01/21 11:08 Dose: 3 ml Documented by: Home Medications Medication Instructions Recorded Confirmed Last Taken Type calcifediol 30 mcg capsule,24 30 mcg PO DAILY 10/09/20 04/23/21 Unknown History hr,extended release (Rayaldee) insulin glargine 100 unit/mL 95 unit SUBCUT BID 10/09/20 04/23/21 Unknown History subcutaneous solution (Lantus U-100 Insulin) torsemide 100 mg tablet 1 tab PO BID 12/28/20 06/01/21 Unknown History acetaminophen 325 mg tablet 2 tab PO Q6H PRN 06/01/21 06/01/21 Unknown History albuterol sulfate 90 mcg/actuation 2 puff PO Q4H PRN 06/01/21 06/01/21 Unknown History aerosol inhaler amlodipine 5 mg tablet 2 tab PO DAILY 06/01/21 06/01/21 Unknown History amlodipine 5 mg tablet 5 mg PO DAILY 06/01/21 Unknown History calcifediol 30 mcg capsule,24 1 cap PO DAILY 06/01/21 06/01/21 Unknown History hr,extended release (Rayee) ciclopirox 0.77 % topical cream 1 applic TOPICAL BID 06/01/21 06/01/21 Unknown History oxybutynin chloride 10 mg 1 tab PO DAILY 06/01/21 06/01/21 Unknown History tablet,extended release 24 hr Physical Exam Vital Signs: Vital Signs: Last Vital Signs Temp 98.4 F 06/01/21 08:39 Pulse 64 06/01/21 11:01 Resp 18 06/01/21 08:39 BP 143/57 H 06/01/21 11:01 Pulse Ox 98 06/01/21 11:01 Body Mass Index 66.6 Const: General: cooperative and no acute distress HENMT: Other: Unremarkable Neck: Neck: Yes normal visual inspection Chest: Chest palpation & inspection: normal inspection of the chest Resp: Auscultation: clear to auscultation bilaterally, no crackles and no wheezes Cardio: Jugular venous distension: no JVD Palpation: normal PMI Heart sounds: S1 normal heart sound present, S2 normal heart sound present, no gallops, no murmurs and no rubs GI: Palpation (GI): Soft to palpation Back/Spine/Pelvis: Other: unremarkable Skin: General skin exam: no rashes or lesions noted Neuro: Cranial nerves: Yes Other cranial nerve findings present Extrem: General: Yes pedal edema (3+) Psych: Mental Status: other Results Labs and Meds Result diagrams: 05/31/21 22:27 06/01/21 06:45 Lab results: Laboratory Results - last 24 hr 05/31/21 05/31/21 05/31/21 22:27 22:27 22:27 WBC 9.7 RBC 3.13 L Hgb 9.5 L Hct 29.8 L MCV 95.2 MCH 30.4 MCHC 31.9 RDW 13.1 Plt Count 263 MPV 9.3 L Immature Gran % (Auto) 0.3 Neut % (Auto) 61.9 Lymph % (Auto) 24.5 [place] % (Auto) 9.1 Eos % (Auto) 3.6 Baso % (Auto) 0.6 Lymph # (Auto) 2.4 [place] # (Auto) 0.9 Eos # (Auto) 0.4 Baso # (Auto) 0.1 Abs Immat Gran (auto) 0.03 Absolute Neuts (auto) 6.0 Absolute Nucleated RBC 0.000 Nucleated RBC % (auto) 0.0 PT INR Sodium 137 Potassium 5.8 H D Chloride 109 H Carbon Dioxide 21 L Anion Gap 13 BUN 30 H Creatinine 2.16 H Estim Creat Clear Calc 47.1 Estimated GFR 23 POC Glucose Random Glucose 329 H Lactic Acid Calcium 8.5 D Magnesium 1.7 Total Bilirubin 0.2 AST 13 ALT 11 Alkaline Phosphatase 167 H D B-Natriuretic Peptide Total Protein 5.5 L Albumin 2.6 L Urine Color Urine Appearance Urine pH Ur Specific [place] Urine Protein Urine Glucose (UA) Urine Ketones Urine Blood Urine Nitrite Ur Leukocyte Esterase Urine RBC Urine WBC Ur Squamous Epith Cells Urine Bacteria Urine Mucus Acetone, Qual Negative COVID-19 ([facility]) Negative COVID-19 Thumb See Note 05/31/21 05/31/21 05/31/21 22:27 22:27 22:27 WBC RBC Hgb Hct MCV MCH MCHC RDW Plt Count MPV Immature Gran % (Auto) Neut % (Auto) Lymph % (Auto) [place] % (Auto) Eos % (Auto) Baso % (Auto) Lymph # (Auto) [place] # (Auto) Eos # (Auto) Baso # (Auto) Abs Immat Gran (auto) Absolute Neuts (auto) Absolute Nucleated RBC Nucleated RBC % (auto) PT 10.8 INR 1.0 Sodium Potassium Chloride Carbon Dioxide Anion Gap BUN Creatinine Estim Creat Clear Calc Estimated GFR POC Glucose Random Glucose Lactic Acid Calcium Magnesium Total Bilirubin AST ALT Alkaline Phosphatase B-Natriuretic Peptide 515 H Total Protein Albumin Urine Color YELLOW Urine Appearance CLEAR Urine pH 7.0 Ur Specific [place] 1.020 Urine Protein 2+ H Urine Glucose (UA) >=1000 H Urine Ketones NEG Urine Blood 1+ H Urine Nitrite POS H Ur Leukocyte Esterase NEG Urine RBC 1-4 Urine WBC 1-4 Ur Squamous Epith Cells 1+ Urine Bacteria 2+ Urine Mucus 1+ Acetone, Qual COVID-19 ([facility]) COVID-19 Clin Com 05/31/21 06/01/21 06/01/21 23:38 01:33 06:45 WBC RBC Hgb Hct MCV MCH MCHC RDW Plt Count MPV Immature Gran % (Auto) Neut % (Auto) Lymph % (Auto) [place] % (Auto) Eos % (Auto) Baso % (Auto) Lymph # (Auto) [place] # (Auto) Eos # (Auto) Baso # (Auto) Abs Immat Gran (auto) Absolute Neuts (auto) Absolute Nucleated RBC Nucleated RBC % (auto) PT INR Sodium 138 Potassium 5.8 H Chloride 110 H Carbon Dioxide 20 L Anion Gap 14 BUN 29 H Creatinine 2.14 H Estim Creat Clear Calc 47.5 Estimated GFR 23 POC Glucose Random Glucose 251 H Lactic Acid 1.0 Calcium 8.6 Magnesium Total Bilirubin AST ALT Alkaline Phosphatase B-Natriuretic Peptide 536 H Total Protein Albumin Urine Color Urine Appearance Urine pH Ur Specific [place] Urine Protein Urine Glucose (UA) Urine Ketones Urine Blood Urine Nitrite Ur Leukocyte Esterase Urine RBC Urine WBC Ur Squamous Epith Cells Urine Bacteria Urine Mucus Acetone, Qual COVID-19 ([facility]) COVIDSidelineSwap 06/01/21 08:36 WBC RBC Hgb Hct MCV MCH MCHC RDW Plt Count MPV Immature Gran % (Auto) Neut % (Auto) Lymph % (Auto) [place] % (Auto) Eos % (Auto) Baso % (Auto) Lymph # (Auto) [place] # (Auto) Eos # (Auto) Baso # (Auto) Abs Immat Gran (auto) Absolute Neuts (auto) Absolute Nucleated RBC Nucleated RBC % (auto) PT INR Sodium Potassium Chloride Carbon Dioxide Anion Gap BUN Creatinine Estim Creat Clear Calc Estimated GFR POC Glucose 215 H Random Glucose Lactic Acid Calcium Magnesium Total Bilirubin AST ALT Alkaline Phosphatase B-Natriuretic Peptide Total Protein Albumin Urine Color Urine Appearance Urine pH Ur Specific [place] Urine Protein Urine Glucose (UA) Urine Ketones Urine Blood Urine Nitrite Ur Leukocyte Esterase Urine RBC Urine WBC Ur Squamous Epith Cells Urine Bacteria Urine Mucus Acetone, Qual COVID-19 ([facility]) COVID-19 Thumb ECG Interpretation: EKG with sinus rhythm at 65/Min; lower-QRS complexes but no ischemic findings. Imaging Radiologist's impression: Impressions Chest X-Ray 05/31/21 21:48 IMPRESSION: Trace left-sided pleural effusion, new when compared to the prior examination. Assessment and Plan (1) Acute on chronic diastolic (congestive) heart failure: Status: Acute (2) Morbid obesity: Status: Acute (3) Essential hypertension: Status: Acute (4) CKD (chronic kidney disease) stage 4, GFR 15-29 ml/min: Status: Acute (5) Type 2 diabetes mellitus with obesity: Status: Acute Labs reviewed. Potassium 5.8. Creatinine is 2.14. BNP 515. Chest x-ray reported to have trace left-sided effusion. Overall, symptoms probably from obesity, but could have diastolic heart failure+/-right heart failure related to obesity. Currently on empiric diuretics. Agree. Last echocardiogram from December with LVEF 60-65%; no significant valvular pathology; normal RVSP. She could have underlying coronary disease as wel, but due to moderate obesity and immobility, not a candidate for ischemia workup. May empirically treat for presumed CAD and include statins; aspirin if able. Procedures Date of Service Date of Service: 06/01/21
[2021-06-01 12:18] LABS: Glucose, Whole Blood 224 mg/dL (60-115)
[2021-06-01] MEDS: Insulin Lispro 100 UNIT/ML 3 ML VIAL SUBCUT ×2 (13:21→16:57)
[2021-06-01 14:33] LABS: Glucose, Whole Blood 225 mg/dL (60-115)
--- NOTE | 2021-06-01 14:49 | MHC.CM.PN ---
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
[2021-06-01 16:37] LABS: Glucose, Whole Blood 208 mg/dL (60-115)
[2021-06-01] MEDS: Furosemide 40 MG/4 ML VIAL IVPUSH (16:56)
--- NOTE | 2021-06-01 19:59 | PM.EVENT ---
Event Note Date of Service: 06/01/21 Event Note: Chest pain: Patient reports pressure-like pain. Will obtain EKG and troponins. Sublingual nitroglycerin p.r.n.. Morphine for breakthrough pain. Mentioned that symptoms started after she ate; likely GI related. Monitor on telemetry. Dizziness: exam benign. CT head; Abd pain: Mild tender in epigastrium; no guarding or rigidity; CT abd non contrast.
[2021-06-01] MEDS: Nitroglycerin 0.4 MG TAB.SUBL SUBLINGUAL (20:24)
[2021-06-01] MEDS: cefTRIAXone sodium 1 GM in 0.9 % Sodium Chloride 50 ML IV (20:26)
[2021-06-01 20:34] LABS: Glucose, Whole Blood 181 mg/dL (60-115)
[2021-06-01 21:03] LABS: Troponin-I High Sensitivity 7.5 ng/L (<3.5-17.0)
[2021-06-01] MEDS: Famotidine/PF 20 MG/2 ML VIAL IVPUSH (23:33)
[2021-06-01] MEDS: ondansetron HCL 4 MG/2 ML VIAL IVPUSH (23:34)
[2021-06-01] MEDS: hydrALAZINE HCl 20 MG/ML VIAL 5 MG IVPUSH (23:34)
[2021-06-02] VITALS (10 sets, daily range): BP systolic 100–196; BP diastolic 63–94; PULSE 73–91; RESP 19–22; TEMP 36.4–37.4; O2SAT 91–98
[2021-06-02 00:08] LABS: Troponin-I High Sensitivity 8.5 ng/L (<3.5-17.0)
[2021-06-02] MEDS: Metoclopramide HCl 10 MG/2 ML VIAL 5 MG IVPUSH ×2 (03:01→11:31)
--- NOTE | 2021-06-02 03:25 | PC.NURSE ---
Addendum entered by Valerie Tyler RN 06/02/21 04:45: Pt still vomiting, c/o abd pain. updated on pt status, new orders for Reglan IVP, and BMP. Will continue to closely monitor. Addendum entered by Valerie Tyler RN 06/02/21 03:34: Pt continues to c/o abd pain, dizziness, nausea and vomiting. Pt vomiting scant amounts of clear phlegm. made aware. New orders for Zofran, STAT head, and abd CT scan. Zofran administered with little effect. Head CT (-), abd CT shows diverticulosis without acute diverticulitis, MD notified of results. Pts BP still elevated 200/109, prn IV Hydralazine administered. Will continue to monitor closely. Original Note: At start of shift pt c/o 4/10 chest pressure as well as abdominal pain and dizziness. Obtained VS, BP 188/79. Pt given sublingual nitro X1 with good effect. made aware, new orders for stat EKG, and serial troponins. Troponins wnl, EKG unremarkable, MD notified of results. Pt refusing insulin, poc 186. Pt states my sugar is usually 400-500, when my sugar is below 200 I feel sick. made aware. Will continue to closely monitor.
[2021-06-02 03:46] LABS: Anion Gap 14 (12-20); Blood Urea Nitrogen 31 mg/dL (9-16); Calcium 8.5 mg/dL (8.4-10.2); Carbon Dioxide 21 mmol/L (22-29); Chloride 109 mmol/L (96-108); Creatinine Clr Calc Pharmacy 45.6; Estimated Glomerular Filt Rate 22; Glucose Random 275 mg/dL (60-115); Potassium 5.8 mmol/L (3.3-5.1); Sodium 138 mmol/L (135-145)
[2021-06-02 06:58] LABS: Hematocrit 32.4 % (37-47); Hemoglobin 10.5 g/dl (12.0-16.0); Mean Corpuscular HGB Conc 32.4 g/dl (31.0-35.0); Mean Corpuscular Hemoglobin 30.5 pg (27.0-33.0); Mean Corpuscular Volume 94.2 fL (80-98); Mean Platelet Volume 10.1 fL (9.4-12.3); Platelet Count 298 X10*3/uL (160-400); Red Blood Count 3.44 X10*6/uL (4.20-5.50); Red Cell Distribution Width 12.9 % (11.0-16.0); White Blood Count 11.5 X10*3/uL (4.8-10.8)
[2021-06-02 07:19] LABS: Anion Gap 15 (12-20); Blood Urea Nitrogen 30 mg/dL (9-16); Calcium 8.7 mg/dL (8.4-10.2); Carbon Dioxide 20 mmol/L (22-29); Chloride 109 mmol/L (96-108); Creatinine Clr Calc Pharmacy 45.6; Estimated Glomerular Filt Rate 22; Glucose Fasting 273 mg/dL (60-99); Magnesium 1.7 mg/dL (1.6-2.6); Potassium 5.5 mmol/L (3.3-5.1); Sodium 138 mmol/L (135-145)
--- NOTE | 2021-06-02 08:04 | HE.PHANOTE ---
Spoke with BIPIN Campoverde to see if she could reach out to the patients family about bringing in the patients non-form medications. Will follow up. Rubina Martin, BraedenD [phone]
[2021-06-02 11:04] LABS: Glucose, Whole Blood 252 mg/dL (60-115)
[2021-06-02] MEDS: ondansetron HCL 4 MG/2 ML VIAL IVPUSH (11:07)
[2021-06-02] MEDS: Insulin Lispro 100 UNIT/ML 3 ML VIAL SUBCUT ×3 (11:07→17:37)
[2021-06-02] MEDS: Heparin Sodium,Porcine 5,000 UNIT/ML VIAL 5000 UNIT SUBCUT ×2 (11:07→17:37)
--- NOTE | 2021-06-02 11:12 | HO.PM.IMPN ---
Subjective Subjective Date of Service: 06/02/21 Interval History: cc: inability to get out of bed nausea and vomitting Cardiovascular Cardiovascular: Reports no additional cardiovascular complaints Respiratory Respiratory: Reports no additional respiratory complaints Physical Exam Vital Signs: Vital Signs: Last Vital Signs Temp 98.8 F 06/02/21 07:58 Pulse 91 06/02/21 07:58 Resp 20 06/02/21 07:58 BP 188/88 H 06/02/21 07:58 Pulse Ox 95 06/02/21 11:11 Body Mass Index 66.6 General: AO X 3, uncomfortable, morbidly obese Resp:? CTA bilateral, no accessory muscles used CVS: S1,S2,RRR GI: soft,? tender over panus, non distended Neuro:? motor grossly intact, alert Psych: appropriate affect, appropriate insight? Objective Data Active Medications Amlodipine Besylate (Amlodipine Besylate 10 Mg Tablet) 10 mg PO DAILY [facility]; Protocol Furosemide (Furosemide 40 Mg/4 Ml Vial) 40 mg IVPUSH BID@0900,1800 [facility]; Protocol Last Admin: 06/01/21 16:56 Dose: 40 mg Documented by: LILIBETH Heparin Sodium (Porcine) (Heparin Sodium,Porcine 5,000 Unit/Ml Vial) 5,000 unit SUBCUT Q8H [facility] Last Admin: 06/02/21 11:07 Dose: 5,000 unit Documented by: CHIO Hydralazine HCl (Hydralazine Hcl 25 Mg Tablet) 25 mg PO TID [facility]; Protocol Ceftriaxone Sodium 1 gm/ (Sodium Chloride) 50 mls @ 100 mls/hr IV Q24H [facility] Last Infusion: 06/01/21 21:13 Dose: 0 mls/hr Documented by: GREG Insulin Glargine (Insulin Glargine,Hum.Rec.Anlog 100 Unit/Ml 10 Ml Vial) 50 unit SUBCUT BID [facility] Last Admin: 06/01/21 20:46 Dose: Not Given Documented by: GREG Non-Admin Reason: Patient Refused Insulin Human Lispro (Insulin Lispro 100 Unit/Ml 3 Ml Vial) 0 unit SUBCUT QIDACHS [facility]; Protocol Last Admin: 06/02/21 11:07 Dose: 6 unit Documented by: CHIO Morphine Sulfate (Morphine Sulfate 2 Mg/Ml Cartridge) 1 mg IVPUSH Q6H [facility]; Protocol PRN Reason: Angina Nitroglycerin (Nitroglycerin 0.4 Mg Tab.Subl) 0.4 mg SUBLINGUAL Q5MX3 PRN PRN Reason: Chest Pain Last Admin: 06/01/21 20:24 Dose: 0.4 mg Documented by: GREG Non-Formulary Medication (Calcifediol [Rayaldee]) 1 cap PO DAILY [facility] Non-Formulary Medication (Ciclopirox) 1 applic TOPICAL BID [facility] Nystatin (Nystatin Cream 15 Gm Tube) 1 appl TOPICAL BID [facility]; Protocol Last Admin: 06/01/21 22:04 Dose: Not Given Documented by: GREG Non-Admin Reason: Patient Refused Ondansetron HCl (Ondansetron Hcl 4 Mg/2 Ml Vial) 4 mg IVPUSH Q8H PRN PRN Reason: Nausea and Vomiting Last Admin: 06/02/21 11:07 Dose: 4 mg Documented by: CHIO Oxybutynin Chloride (Oxybutynin Chloride Er 5 Mg Tab.Er.24) 10 mg PO DAILY [facility] Ropinirole HCl (Ropinirole Hcl 0.5 Mg Tablet) 0.5 mg PO BEDTIME [facility] Last Admin: 06/01/21 20:31 Dose: Not Given Documented by: GREG Non-Admin Reason: Patient Refused Sodium Chloride (0.9 % Sodium Chloride Flush 3 Ml Syringe) 3 ml IVFLUSH QSHIFT [facility] Last Admin: 06/01/21 20:31 Dose: 3 ml Documented by: GREG Labs CBC & Chem 7: 06/02/21 06:18 06/02/21 06:18 Labs: Laboratory Results - last 24 hr 06/01/21 06/01/21 06/01/21 12:14 14:23 16:33 MCV MCH MCHC RDW Plt Count MPV Absolute Nucleated RBC Nucleated RBC % (auto) Anion Gap Estim Creat Clear Calc Estimated GFR POC Glucose 224 H 225 H 208 H Random Glucose Fasting Glucose Calcium Magnesium Troponin I High Sens 06/01/21 06/01/21 06/01/21 20:19 20:29 23:39 MCV MCH MCHC RDW Plt Count MPV Absolute Nucleated RBC Nucleated RBC % (auto) Anion Gap Estim Creat Clear Calc Estimated GFR POC Glucose 181 H Random Glucose Fasting Glucose Calcium Magnesium Troponin I High Sens 7.5 8.5 06/02/21 06/02/21 06/02/21 03:20 06:18 06:18 MCV 94.2 MCH 30.5 MCHC 32.4 RDW 12.9 Plt Count 298 MPV 10.1 Absolute Nucleated RBC 0.000 Nucleated RBC % (auto) 0.0 Anion Gap 14 15 Estim Creat Clear Calc 45.6 45.6 Estimated GFR 22 22 POC Glucose Random Glucose 275 H TNP Fasting Glucose 273 H Calcium 8.5 8.7 Magnesium 1.7 Troponin I High Sens 06/02/21 10:59 MCV MCH MCHC RDW Plt Count MPV Absolute Nucleated RBC Nucleated RBC % (auto) Anion Gap Estim Creat Clear Calc Estimated GFR POC Glucose 252 H Random Glucose Fasting Glucose Calcium Magnesium Troponin I High Sens Microbiology Microbiology Results: Microbiology 05/31/21 22:45 Urine Culture - Final Urine clean catch - Urine rubin top 06/01/21 00:43 Blood Culture - Preliminary Blood - Venous No growth after 24 hours. 06/01/21 00:43 Blood Culture - Preliminary Blood - Venous No growth after 24 hours. Assessment and Plan (1) Morbid obesity: Status: Acute (2) UTI (urinary tract infection): Status: Acute (3) CKD (chronic kidney disease) stage 4, GFR 15-29 ml/min: Status: Acute (4) Essential hypertension: Status: Acute (5) Type 2 diabetes mellitus with obesity: Status: Acute Assessment and Plan: 60F presented with inability to get out of bed and sob and dysuria acute on chronic diastoliic chf continue lasix iv, monitor is and os, bmp follow up echo [place] and vomitting gastroparesis suspected reglan UTI continue rocephin day 3 urine culture no growth morbid obesity complicated by inability to ambulate can use binder for panus while ambulating, PT eval htn amlodipine DM basal bolus insulin, monitor poc CKD IV stable montior dvt prophylaxis - heparin sq Quality Stroke Does the patient have a stroke diagnosis?: No VTE Prior VTE?: No VTE Risk Level:: Medical - moderate - high VTE Device Contraindication: Treatment Not Indicated VTE Drug Contraindication: N/A - Med Ordered
--- NOTE | 2021-06-02 13:33 | MHC.CM.PN ---
Female 60 DX HF Patient continues to C/O N/V DP is resumption of [facility] services. Referrals sent out to facilities that accept [facility]. CM will follow.
[2021-06-02] MEDS: Furosemide 40 MG/4 ML VIAL IVPUSH ×2 (14:35→17:37)
[2021-06-02 14:36] LABS: Glucose, Whole Blood 209 mg/dL (60-115)
[2021-06-02] MEDS: 0.9 % Sodium Chloride Flush 3 ML SYRINGE IVFLUSH ×3 (14:36→22:00)
[2021-06-02] MEDS: hydrALAZINE HCl 25 MG TABLET PO ×2 (14:43→21:58)
[2021-06-02 16:23] LABS: Glucose, Whole Blood 182 mg/dL (60-115)
[2021-06-02 20:09] LABS: Glucose, Whole Blood 123 mg/dL (60-115)
[2021-06-02] MEDS: cefTRIAXone sodium 1 GM in 0.9 % Sodium Chloride 50 ML IV (21:57)
[2021-06-02] MEDS: rOPINIRole HCL 0.5 MG TABLET PO (21:58)
[2021-06-02] MEDS: Nystatin Cream 15 GM TUBE 1 APPL TOPICAL (22:00)
[2021-06-02] MEDS: Insulin Glargine,Hum.rec.anlog 100 UNIT/ML 10 ML VIAL 50 UNIT SUBCUT (22:03)
[2021-06-03] VITALS (8 sets, daily range): BP systolic 164–199; BP diastolic 72–80; PULSE 68–85; RESP 18–20; TEMP 36.5–37.4; O2SAT 93–96
[2021-06-03] MEDS: Heparin Sodium,Porcine 5,000 UNIT/ML VIAL 5000 UNIT SUBCUT ×3 (02:22→17:16)
[2021-06-03 02:27] LABS: Glucose, Whole Blood 109 mg/dL (60-115)
[2021-06-03 06:44] LABS: Anion Gap 12 (12-20); Blood Urea Nitrogen 32 mg/dL (9-16); Calcium 7.9 mg/dL (8.4-10.2); Carbon Dioxide 22 mmol/L (22-29); Chloride 111 mmol/L (96-108); Creatinine Clr Calc Pharmacy 38.3; Estimated Glomerular Filt Rate 18; Glucose Fasting 169 mg/dL (60-99); Potassium 5.6 mmol/L (3.3-5.1); Sodium 139 mmol/L (135-145)
[2021-06-03 06:53] LABS: Hematocrit 29.7 % (37-47); Hemoglobin 9.3 g/dl (12.0-16.0); Mean Corpuscular HGB Conc 31.3 g/dl (31.0-35.0); Mean Corpuscular Hemoglobin 30.1 pg (27.0-33.0); Mean Corpuscular Volume 96.1 fL (80-98); Mean Platelet Volume 10.4 fL (9.4-12.3); Platelet Count 297 X10*3/uL (160-400); Red Blood Count 3.09 X10*6/uL (4.20-5.50); Red Cell Distribution Width 13.1 % (11.0-16.0); White Blood Count 12.1 X10*3/uL (4.8-10.8)
[2021-06-03 07:17] LABS: Glucose, Whole Blood 134 mg/dL (60-115)
--- NOTE | 2021-06-03 09:56 | P.PNIM_ITS ---
Subjective Subjective Date of Service: 06/03/21 Interval History: cC: unable to get out of bed nasuea and vomitting resolved with reglan, still feels like she cant get out of bed Cardiovascular Cardiovascular: Reports no additional cardiovascular complaints Respiratory Respiratory: Reports no additional respiratory complaints Physical Exam Vital Signs: Vital Signs: Last Vital Signs Temp 98.8 F 06/03/21 07:32 Pulse 68 06/03/21 09:02 Resp 18 06/03/21 07:32 BP 167/74 H 06/03/21 09:02 Pulse Ox 96 06/03/21 09:02 Body Mass Index 66.6 General: AO X 3, uncomfortable, morbidly obese Resp:? CTA bilateral, no accessory muscles used CVS: S1,S2,RRR GI: soft,? tender over panus, non distended Neuro:? motor grossly intact, alert Psych: appropriate affect, appropriate insight? Objective Data Active Medications Amlodipine Besylate (Amlodipine Besylate 10 Mg Tablet) 10 mg PO DAILY [facility]; Protocol Last Admin: 06/02/21 14:14 Dose: Not Given Documented by: CHIO Non-Admin Reason: Nausea Furosemide (Furosemide 40 Mg/4 Ml Vial) 40 mg IVPUSH BID@0900,1800 [facility]; Protocol Last Admin: 06/02/21 17:37 Dose: 40 mg Documented by: KEE Heparin Sodium (Porcine) (Heparin Sodium,Porcine 5,000 Unit/Ml Vial) 5,000 unit SUBCUT Q8H [facility] Last Admin: 06/03/21 02:22 Dose: 5,000 unit Documented by: KAMILAH Hydralazine HCl (Hydralazine Hcl 25 Mg Tablet) 25 mg PO TID [facility]; Protocol Last Admin: 06/02/21 21:58 Dose: 25 mg Documented by: KAMILAH Ceftriaxone Sodium 1 gm/ (Sodium Chloride) 50 mls @ 100 mls/hr IV Q24H [facility] Last Infusion: 06/02/21 22:57 Dose: 0 mls/hr Documented by: KAMILAH Insulin Glargine (Insulin Glargine,Hum.Rec.Anlog 100 Unit/Ml 10 Ml Vial) 50 unit SUBCUT BID [facility] Last Admin: 06/02/21 22:03 Dose: 50 unit Documented by: KAMILAH Insulin Human Lispro (Insulin Lispro 100 Unit/Ml 3 Ml Vial) 0 unit SUBCUT QIDACHS [facility]; Protocol Last Admin: 06/03/21 07:21 Dose: Not Given Documented by: DOBROB Non-Admin Reason: No Insulin Coverage Metoclopramide HCl (Metoclopramide Hcl 10 Mg/2 Ml Vial) 5 mg IVPUSH Q6H PRN PRN Reason: nausea Last Admin: 06/02/21 11:31 Dose: 5 mg Documented by: CHIO Morphine Sulfate (Morphine Sulfate 2 Mg/Ml Cartridge) 1 mg IVPUSH Q6H PRN; Protocol PRN Reason: Angina Nitroglycerin (Nitroglycerin 0.4 Mg Tab.Subl) 0.4 mg SUBLINGUAL Q5MX3 PRN PRN Reason: Chest Pain Last Admin: 06/01/21 20:24 Dose: 0.4 mg Documented by: DESROA Non-Formulary Medication (Calcifediol [Rayaldee]) 1 cap PO DAILY [facility] Nystatin (Nystatin Cream 15 Gm Tube) 1 appl TOPICAL BID [facility]; Protocol Last Admin: 06/02/21 22:00 Dose: 1 appl Documented by: KAMILAH Oxybutynin Chloride (Oxybutynin Chloride Er 5 Mg Tab.Er.24) 10 mg PO DAILY [facility] Last Admin: 06/02/21 14:43 Dose: 10 mg Documented by: CHIO Ropinirole HCl (Ropinirole Hcl 0.5 Mg Tablet) 0.5 mg PO BEDTIME [facility] Last Admin: 06/02/21 21:58 Dose: 0.5 mg Documented by: KAMILAH Sodium Chloride (0.9 % Sodium Chloride Flush 3 Ml Syringe) 3 ml IVFLUSH QSHIFT [facility] Last Admin: 06/02/21 22:00 Dose: 3 ml Documented by: KAMILAH Labs CBC & Chem 7: 06/03/21 05:42 06/03/21 05:42 Labs: Laboratory Results - last 24 hr 06/02/21 06/02/21 06/02/21 10:59 14:32 16:16 MCV MCH MCHC RDW Plt Count MPV Absolute Nucleated RBC Nucleated RBC % (auto) Anion Gap Estim Creat Clear Calc Estimated GFR POC Glucose 252 H 209 H 182 H Fasting Glucose Calcium 06/02/21 06/03/21 06/03/21 20:02 02:23 05:42 MCV 96.1 MCH 30.1 MCHC 31.3 RDW 13.1 Plt Count 297 MPV 10.4 Absolute Nucleated RBC 0.000 Nucleated RBC % (auto) 0.0 Anion Gap Estim Creat Clear Calc Estimated GFR POC Glucose 123 H 109 Fasting Glucose Calcium 06/03/21 06/03/21 05:42 07:00 MCV MCH MCHC RDW Plt Count MPV Absolute Nucleated RBC Nucleated RBC % (auto) Anion Gap 12 Estim Creat Clear Calc 38.3 Estimated GFR 18 POC Glucose 134 H Fasting Glucose 169 H Calcium 7.9 L D Microbiology Microbiology Results: Microbiology 06/01/21 00:43 Blood Culture - Preliminary Blood - Venous No growth after 48 hours. 06/01/21 00:43 Blood Culture - Preliminary Blood - Venous No growth after 48 hours. 05/31/21 22:45 Urine Culture - Final Urine clean catch - Urine rubin top Assessment and Plan (1) Morbid obesity: Status: Acute (2) UTI (urinary tract infection): Status: Acute (3) CKD (chronic kidney disease) stage 4, GFR 15-29 ml/min: Status: Acute (4) Essential hypertension: Status: Acute (5) Type 2 diabetes mellitus with obesity: Status: Acute Assessment and Plan: 60F presented with inability to get out of bed and sob and dysuria acute on chronic diastoliic chf will change back to home dose of max torsemide - 100mg po bid, monitor is and os, bmp had recent echo in december 2020, no need to repeat nasuea and vomitting gastroparesis suspected resolved with reglan UTI continue rocephin day 4 urine culture no growth morbid obesity complicated by inability to ambulate can use binder for panus while ambulating, PT recommending STR at SNF to improve bed mobility and hopefully ability to sta nd hyperkalemi ?rta IV kayexylate, monitor nephro eval htn amlodipine monitor bp, mildly elevated, no adjustments for now DM basal bolus insulin, monitor poc CKD IV stable monitor dvt prophylaxis - heparin sq Quality Stroke Does the patient have a stroke diagnosis?: No VTE Prior VTE?: No VTE Risk Level:: Medical - moderate - high VTE Device Contraindication: Treatment Not Indicated VTE Drug Contraindication: N/A - Med Ordered
[2021-06-03] MEDS: 0.9 % Sodium Chloride Flush 3 ML SYRINGE IVFLUSH ×3 (10:17→19:49)
[2021-06-03] MEDS: Sodium Polystyrene Sulfon/Sorb 15 GM/60 ML ORAL.SUSP PO (10:22)
[2021-06-03] MEDS: Metoclopramide HCl 10 MG/2 ML VIAL 5 MG IVPUSH ×3 (10:38→23:45)
[2021-06-03 11:10] LABS: Glucose, Whole Blood 146 mg/dL (60-115)
--- NOTE | 2021-06-03 13:41 | P.CONWO_ITS ---
History of Present Illness Data of Consult Service Date: 06/03/21 Requesting physician: Rajesh Pena Primary Care Provider: [facility] Reason for consult: blister right hip 60-year-old morbidly obese female with surprisingly good semiindependent bed mobility, so long as pannus and legs are managed. Hospitalized for inability to Care for Self. Treating for CHF. Had urinary tract infection now on antibiotics. Feeling better. We are asked to deal with redness of the buttocks without associated open wound and a right hip blister which is about 0.1 cm. Review of Systems Review of Systems: She denies shortness of breath. She can leg nearly flat without increasing shortness of breath. She denies fevers. There is no pain at the right hip site. No drainage. No buttock pain. [facility] Medical History (Updated 06/03/21 @ 13:56 by MAKENNA Major) Bladder outlet obstruction CKD (chronic kidney disease) stage 4, GFR 15-29 ml/min Clostridium difficile diarrhea Detrusor dysfunction Esophagitis Essential hypertension Hypothyroidism IBS (irritable bowel syndrome) Morbid obesity Type 2 diabetes mellitus with obesity Family History Father Diabetes Mother Diabetes Hypertension Breast cancer Family/Other Breast cancer Uterine cancer Pertinent family history: noncontributory Surgical History History of tubal ligation Social History Household Members: None Housing: Apartment Do you presently have visiting nurse or other home services: Yes Alcohol intake: unknown Patient Tobacco Use Status: Never used Tobacco e-Cigarette/Vaping Use: Never Used Second Hand Smoke Exposure: No service: No Current occupational status: disabled Meds Allergies Allergy/AdvReac Type Severity Reaction Status Date / Time metformin [METFORMIN] Allergy Severe HIVES Verified 04/23/21 13:42 canagliflozin [From Invokana] Allergy Hives Verified 04/23/21 13:42 Active Medications: Current Medications Amlodipine Besylate (Amlodipine Besylate 10 Mg Tablet) 10 mg PO DAILY [facility]; Protocol Last Admin: 06/03/21 10:31 Dose: Not Given Documented by: Heparin Sodium (Porcine) (Heparin Sodium,Porcine 5,000 Unit/Ml Vial) 5,000 unit SUBCUT Q8H [facility] Last Admin: 06/03/21 10:17 Dose: 5,000 unit Documented by: Hydralazine HCl (Hydralazine Hcl 25 Mg Tablet) 25 mg PO TID [facility]; Protocol Last Admin: 06/03/21 10:32 Dose: Not Given Documented by: Ceftriaxone Sodium 1 gm/ (Sodium Chloride) 50 mls @ 100 mls/hr IV Q24H [facility] Last Infusion: 06/02/21 22:57 Dose: Infused Documented by: Insulin Glargine (Insulin Glargine,Hum.Rec.Anlog 100 Unit/Ml 10 Ml Vial) 50 unit SUBCUT BID [facility] Last Admin: 06/03/21 10:32 Dose: Not Given Documented by: Insulin Human Lispro (Insulin Lispro 100 Unit/Ml 3 Ml Vial) 0 unit SUBCUT QIDACHS [facility]; Protocol Last Admin: 06/03/21 11:15 Dose: Not Given Documented by: Metoclopramide HCl (Metoclopramide Hcl 10 Mg/2 Ml Vial) 5 mg IVPUSH Q6H PRN PRN Reason: nausea Last Admin: 06/03/21 10:38 Dose: 5 mg Documented by: Morphine Sulfate (Morphine Sulfate 2 Mg/Ml Cartridge) 1 mg IVPUSH Q6H PRN; Protocol PRN Reason: Angina Nitroglycerin (Nitroglycerin 0.4 Mg Tab.Subl) 0.4 mg SUBLINGUAL Q5MX3 PRN PRN Reason: Chest Pain Last Admin: 06/01/21 20:24 Dose: 0.4 mg Documented by: Non-Formulary Medication (Calcifediol [Rayaldee]) 1 cap PO DAILY [facility] Nystatin (Nystatin Cream 15 Gm Tube) 1 appl TOPICAL BID [facility]; Protocol Last Admin: 06/03/21 10:21 Dose: 1 appl Documented by: Oxybutynin Chloride (Oxybutynin Chloride Er 5 Mg Tab.Er.24) 10 mg PO DAILY [facility] Last Admin: 06/03/21 10:32 Dose: Not Given Documented by: Ropinirole HCl (Ropinirole Hcl 0.5 Mg Tablet) 0.5 mg PO BEDTIME [facility] Last Admin: 06/02/21 21:58 Dose: 0.5 mg Documented by: Sodium Chloride (0.9 % Sodium Chloride Flush 3 Ml Syringe) 3 ml IVFLUSH QSHIFT [facility] Last Admin: 06/03/21 10:17 Dose: 3 ml Documented by: Torsemide (Torsemide 20 Mg Tablet) 100 mg PO BID [facility]; Protocol Home Medications Medication Instructions Recorded Confirmed Last Taken Type calcifediol 30 mcg capsule,24 30 mcg PO DAILY 10/09/20 04/23/21 Unknown History hr,extended release (Rayaldee) insulin glargine 100 unit/mL 95 unit SUBCUT BID 10/09/20 04/23/21 Unknown Histo ry subcutaneous solution (Lantus U-100 Insulin) torsemide 100 mg tablet 1 tab PO BID 12/28/20 06/01/21 Unknown History acetaminophen 325 mg tablet 2 tab PO Q6H PRN 06/01/21 06/01/21 Unknown History albuterol sulfate 90 mcg/actuation 2 puff PO Q4H PRN 06/01/21 06/01/21 Unknown History aerosol inhaler amlodipine 5 mg tablet 2 tab PO DAILY 06/01/21 06/01/21 Unknown History amlodipine 5 mg tablet 5 mg PO DAILY 06/01/21 Unknown History calcifediol 30 mcg capsule,24 1 cap PO DAILY 06/01/21 06/01/21 Unknown History hr,extended release (Rayaldee) ciclopirox 0.77 % topical cream 1 applic TOPICAL BID 06/01/21 06/01/21 Unknown History oxybutynin chloride 10 mg 1 tab PO DAILY 06/01/21 06/01/21 Unknown History tablet,extended release 24 hr Physical Exam Vital Signs and Narrative: Vital Signs: Last Vital Signs Temp 99.2 F 06/03/21 11:30 Pulse 74 06/03/21 11:30 Resp 18 06/03/21 11:30 BP 192/76 H 06/03/21 11:30 Pulse Ox 94 06/03/21 11:30 Body Mass Index 66.6 Pleasant cooperative, no acute distress. Vital signs as above. Reclines to the supine position with relative comfort. No change in respiratory status while nearly supine. With her assistance, we moved the abdominal pannus off of the right anterior superior iliac spine and find 0.2cm small open wound with a denuded features, without significant drainage. It looks as if there was an attempt to place an Allevyn foam over this area. No redness streaking or warmth to suggest active cellulitis. No skin breakdown of the buttocks is identified. Results Labs CBC and Chem 7: 06/03/21 05:42 06/03/21 05:42 Labs: Laboratory Results - last 24 hr 06/02/21 06/02/21 06/02/21 14:32 16:16 20:02 MCV MCH MCHC RDW Plt Count MPV Absolute Nucleated RBC Nucleated RBC % (auto) Anion Gap Estim Creat Clear Calc Estimated GFR POC Glucose 209 H 182 H 123 H Fasting Glucose Calcium 06/03/21 06/03/21 06/03/21 02:23 05:42 05:42 MCV 96.1 MCH 30.1 MCHC 31.3 RDW 13.1 Plt Count 297 MPV 10.4 Absolute Nucleated RBC 0.000 Nucleated RBC % (auto) 0.0 Anion Gap 12 Estim Creat Clear Calc 38.3 Estimated GFR 18 POC Glucose 109 Fasting Glucose 169 H Calcium 7.9 L D 06/03/21 06/03/21 07:00 10:58 MCV MCH MCHC RDW Plt Count MPV Absolute Nucleated RBC Nucleated RBC % (auto) Anion Gap Estim Creat Clear Calc Estimated GFR POC Glucose 134 H 146 H Fasting Glucose Calcium Assessment and Plan (1) Alteration in skin integrity due to moisture: Status: Acute 60-year-old female hospitalized for inability to Care for Self, UTI and CHF. No open wounds are identified on the buttocks. Denuded area over the right ASIS is not infected. Choose protecting of choice such as zinc oxide. Not opposed to Allevyn foam dressing as long as maceration does not ensue.
--- NOTE | 2021-06-03 15:19 | PM.PNNEP ---
Subjective Subjective Date of Service: 06/03/21 Interval history: Patient seen and examined Consult dictated Physical Exam Vital Signs: Vital Signs: Last Vital Signs Temp 99.3 F 06/03/21 14:54 Pulse 81 06/03/21 14:54 Resp 18 06/03/21 14:54 BP 187/80 H 06/03/21 14:54 Pulse Ox 94 06/03/21 14:54 Body Mass Index 66.6 Objective Data Labs CBC & Chem 7: 06/03/21 05:42 06/03/21 05:42 Labs: Laboratory Results - last 24 hr 06/02/21 06/02/21 06/03/21 16:16 20:02 02:23 WBC RBC Hgb Hct MCV MCH MCHC RDW Plt Count MPV Absolute Nucleated RBC Nucleated RBC % (auto) Sodium Potassium Chloride Carbon Dioxide Anion Gap BUN Creatinine Estim Creat Clear Calc Estimated GFR POC Glucose 182 H 123 H 109 Fasting Glucose Calcium 06/03/21 06/03/21 06/03/21 05:42 05:42 07:00 WBC 12.1 H RBC 3.09 L Hgb 9.3 L Hct 29.7 L MCV 96.1 MCH 30.1 MCHC 31.3 RDW 13.1 Plt Count 297 MPV 10.4 Absolute Nucleated RBC 0.000 Nucleated RBC % (auto) 0.0 Sodium 139 Potassium 5.6 H Chloride 111 H Carbon Dioxide 22 Anion Gap 12 BUN 32 H Creatinine 2.66 H Estim Creat Clear Calc 38.3 Estimated GFR 18 POC Glucose 134 H Fasting Glucose 169 H Calcium 7.9 L D 06/03/21 10:58 WBC RBC Hgb Hct MCV MCH MCHC RDW Plt Count MPV Absolute Nucleated RBC Nucleated RBC % (auto) Sodium Potassium Chloride Carbon Dioxide Anion Gap BUN Creatinine Estim Creat Clear Calc Estimated GFR POC Glucose 146 H Fasting Glucose Calcium Microbiology Microbiology Results: Microbiology 06/01/21 00:43 Blood - Venous Blood Culture - Preliminary No growth after 48 hours. 06/01/21 00:43 Blood - Venous Blood Culture - Preliminary No growth after 48 hours. 05/31/21 22:45 Urine clean catch - Urine rubin top Urine Culture - Final Procedures Date of Service Date of Service: 06/03/21 Assessment & Plan Assessment and plan (1) CKD (chronic kidney disease) stage 4, GFR 15-29 ml/min: Status: Acute (2) Heart failure with preserved ejection fraction: Status: Acute (3) Hyperkalemia: Status: Acute (4) Anemia: Status: Acute Assessment and Plan: advanced CKD due to DM/HTN baseline Scr 2-2.5 mg/dl elevated serum potassium due to: -compromised distal flow -low renin aldosterone state (heparin can also cause type IV RTA) known heart failure with preserved function REC sodium zirconium 5 grams daily low potassium diet follow kidney function and electrolytes Time Spent With Patient Time: Total time spent is greater than 50% in coordination of care (as documented) at patient's floor/unit and/or counseling patient: Progress Note: Quality Stroke Does the patient have a stroke diagnosis?: No
--- NOTE | 2021-06-03 15:58 | PC.NURSE ---
Patient refused all PO medication today due to nausea and vomiting. Patient received dose of Reglan at 1038 which relived nausea for about 2 hrs. Symptoms returned and patient has been c/o nausea and dry heaving without any substance coming up. made aware.
[2021-06-03 16:12] LABS: Glucose, Whole Blood 166 mg/dL (60-115)
[2021-06-03] MEDS: cefTRIAXone sodium 1 GM in 0.9 % Sodium Chloride 50 ML IV (19:50)
[2021-06-03] MEDS: Torsemide 20 MG TABLET 100 MG PO (19:52)
[2021-06-03] MEDS: hydrALAZINE HCl 25 MG TABLET PO (19:53)
[2021-06-03] MEDS: rOPINIRole HCL 0.5 MG TABLET PO (19:53)
[2021-06-03] MEDS: Nystatin Cream 15 GM TUBE 1 APPL TOPICAL (20:00)
[2021-06-03 20:03] LABS: Glucose, Whole Blood 137 mg/dL (60-115)
[2021-06-04] VITALS (9 sets, daily range): BP systolic 128–180; BP diastolic 61–82; PULSE 61–82; RESP 18–20; TEMP 36.1–37.3; O2SAT 95–97
[2021-06-04] MEDS: Heparin Sodium,Porcine 5,000 UNIT/ML VIAL 5000 UNIT SUBCUT ×3 (00:12→18:36)
[2021-06-04] MEDS: ondansetron HCL 4 MG/2 ML VIAL IVPUSH (01:51)
[2021-06-04] MEDS: Metoclopramide HCl 10 MG/2 ML VIAL 5 MG IVPUSH (05:37)
[2021-06-04 07:04] LABS: Anion Gap 12 (12-20); Blood Urea Nitrogen 32 mg/dL (9-16); Calcium 8.1 mg/dL (8.4-10.2); Carbon Dioxide 23 mmol/L (22-29); Chloride 109 mmol/L (96-108); Creatinine Clr Calc Pharmacy 38.5; Estimated Glomerular Filt Rate 18; Glucose Fasting 172 mg/dL (60-99); Potassium 5.2 mmol/L (3.3-5.1); Sodium 139 mmol/L (135-145)
[2021-06-04 07:06] LABS: Hematocrit 32.5 % (37-47); Hemoglobin 10.3 g/dl (12.0-16.0); Mean Corpuscular HGB Conc 31.7 g/dl (31.0-35.0); Mean Corpuscular Hemoglobin 30.2 pg (27.0-33.0); Mean Corpuscular Volume 95.3 fL (80-98); Mean Platelet Volume 10.1 fL (9.4-12.3); Platelet Count 312 X10*3/uL (160-400); Red Blood Count 3.41 X10*6/uL (4.20-5.50); Red Cell Distribution Width 12.9 % (11.0-16.0); White Blood Count 11.4 X10*3/uL (4.8-10.8)
[2021-06-04 07:57] LABS: Glucose, Whole Blood 158 mg/dL (60-115)
[2021-06-04] MEDS: Torsemide 20 MG TABLET 100 MG PO ×2 (08:06→20:53)
[2021-06-04] MEDS: amLODIPine Besylate 10 MG TABLET PO (08:07)
[2021-06-04] MEDS: hydrALAZINE HCl 25 MG TABLET PO ×3 (08:07→20:53)
[2021-06-04] MEDS: Insulin Glargine,Hum.rec.anlog 100 UNIT/ML 10 ML VIAL 50 UNIT SUBCUT ×2 (08:08→20:52)
[2021-06-04] MEDS: 0.9 % Sodium Chloride Flush 3 ML SYRINGE IVFLUSH ×2 (08:09→15:32)
[2021-06-04] MEDS: Insulin Lispro 100 UNIT/ML 3 ML VIAL SUBCUT ×2 (08:09→20:51)
[2021-06-04] MEDS: Nystatin Cream 15 GM TUBE 1 APPL TOPICAL ×2 (08:11→20:58)
[2021-06-04] MEDS: Sodium Zirconium Cyclosilicate 5 GM POWD.PACK PO (10:56)
[2021-06-04 11:14] LABS: Glucose, Whole Blood 159 mg/dL (60-115)
--- NOTE | 2021-06-04 11:40 | PM.PNNEP ---
Subjective Subjective Date of Service: 06/04/21 Interval history: seen and examined complains of vomiting and poor appetite denies chest pain Physical Exam Vital Signs: Vital Signs: Last Vital Signs Temp 97.9 F 06/04/21 11:26 Pulse 70 06/04/21 11:26 Resp 18 06/04/21 11:26 BP 132/61 06/04/21 11:26 Pulse Ox 95 06/04/21 11:26 Body Mass Index 66.6 Const: General: no acute distress HENMT: Head: Yes normocephalic and Yes atraumatic Neck: Neck: Yes supple Resp: Auscultation: diminished lung sounds Cardio: Heart sounds: S1 normal heart sound present and S2 normal heart sound present GI: Palpation (GI): Soft to palpation and no guarding Extrem: General: Yes pedal edema Objective Data Labs CBC & Chem 7: 06/04/21 05:55 06/04/21 05:55 Labs: Laboratory Results - last 24 hr 06/03/21 06/03/21 06/04/21 15:58 19:55 05:55 WBC 11.4 H RBC 3.41 L Hgb 10.3 L Hct 32.5 L MCV 95.3 MCH 30.2 MCHC 31.7 RDW 12.9 Plt Count 312 MPV 10.1 Absolute Nucleated RBC 0.000 Nucleated RBC % (auto) 0.0 Sodium Potassium Chloride Carbon Dioxide Anion Gap BUN Creatinine Estim Creat Clear Calc Estimated GFR POC Glucose 166 H 137 H Fasting Glucose Calcium 06/04/21 06/04/21 06/04/21 05:55 07:04 11:10 WBC RBC Hgb Hct MCV MCH MCHC RDW Plt Count MPV Absolute Nucleated RBC Nucleated RBC % (auto) Sodium 139 Potassium 5.2 H Chloride 109 H Carbon Dioxide 23 Anion Gap 12 BUN 32 H Creatinine 2.64 H Estim Creat Clear Calc 38.5 Estimated GFR 18 POC Glucose 158 H 159 H Fasting Glucose 172 H Calcium 8.1 L Microbiology Microbiology Results: Microbiology 06/01/21 00:43 Blood - Venous Blood Culture - Preliminary No growth after 48 hours. 06/01/21 00:43 Blood - Venous Blood Culture - Preliminary No growth after 48 hours. 05/31/21 22:45 Urine clean catch - Urine rubin top Urine Culture - Final Procedures Date of Service Date of Service: 06/04/21 Assessment & Plan Assessment and plan (1) CKD (chronic kidney disease) stage 4, GFR 15-29 ml/min: Status: Acute (2) Heart failure with preserved ejection fraction: Status: Acute (3) Hyperkalemia: Status: Acute (4) Anemia: Status: Acute Assessment and Plan: stable kidney function advanced CKD due to DM/HTN baseline Scr 2-2.5 mg/dl elevated serum potassium due to: -compromised distal flow -low renin aldosterone state (heparin can also cause type IV RTA) known heart failure with preserved function REC continue sodium zirconium 5 grams daily low potassium diet follow kidney function and electrolytes Time Spent With Patient Time: Total time spent is greater than 50% in coordination of care (as documented) at patient's floor/unit and/or counseling patient: Progress Note: Quality Stroke Does the patient have a stroke diagnosis?: No
--- NOTE | 2021-06-04 13:51 | CONS_ITS ---
DATE OF SERVICE: 06/03/2021 HISTORY OF PRESENT ILLNESS: This is a 60-year-old patient with history of advanced chronic kidney disease followed by Dr. Dejesus, who presented to the hospital with shortness of breath, is currently with elevated serum potassium. In summary, the patient called EMS as she was no longer able to take care of herself. She reports having trouble getting out of bed, complaining of abdominal discomfort and decreased oral intake. At the time of the consultation, she denies any chest pain or shortness of breath. She denies any nausea or vomiting. The patient is currently being managed for acute diastolic heart failure decompensation. PAST MEDICAL HISTORY: Remarkable for chronic kidney disease stage 4, diabetes mellitus, hypertension, diastolic heart failure, diabetic gastroparesis, hypothyroidism, IBS, obesity, bladder outlet obstruction. MEDICATIONS: As an outpatient were reviewed and included levothyroxine, vitamin D, insulin, torsemide. ALLERGIES: SHE IS ALLERGIC TO METFORMIN AND CANAGLIFLOZIN. SOCIAL HISTORY: She does not smoke. FAMILY HISTORY: Negative. REVIEW OF SYSTEMS: 10-point review of systems negative except for pertinent in the history of present illness. PHYSICAL EXAMINATION: VITAL SIGNS: Blood pressure 187/80, heart rate 81, respiratory rate 18, temperature 99.6. CONSTITUTIONAL: Looks her stated age, in no acute distress. NEUROLOGIC: Alert, awake. HEAD: Atraumatic, normocephalic. NECK: Supple. LUNGS: Decreased breath sounds. CARDIOVASCULAR: S1, S2. No rub. ABDOMEN: Soft, obese, nontender. EXTREMITIES: No peripheral edema. LABORATORY DATA: Showed sodium 139, potassium 5.6, chloride 111, CO2 of 22, BUN 32, creatinine 2.66. White count 12.1, hemoglobin 9.3, platelet count 297. IMPRESSION: 1. Chronic kidney disease stage 4. 2. Hyperkalemia. 3. Anemia. This is a patient with advanced chronic kidney disease, most likely due to hypertensive nephrosclerosis and diabetic kidney disease with baseline serum creatinine ratio of 2 to 2.5 mg/dL. She has elevated serum potassium due to combination of decreased distal flow and probably underlying low renin aldosterone state. She is also on heparin, which can also cause a type 4 renal tubular acidosis. My recommendation would be to initiate sodium zirconium or patiromer. I would have her also on a low-potassium diet. We will continue to follow closely her kidney function, electrolytes. Thank you for allowing me to participate in the care of this patient. MD ANDREW Ley/MAX / [id number]
[2021-06-04] MEDS: Ondansetron ODT 4 MG TAB.RAPDIS TRANSLINGU (15:31)
--- NOTE | 2021-06-04 15:57 | P.PNIM_ITS ---
Subjective Subjective Date of Service: 06/04/21 Interval History: Patient being followed for nausea and vomiting, has multiple complaints complaining of persistent nausea and vomiting overnight, complaining of difficulty in ambulation due to her weight. Review of Systems General no headache, no dizziness no fever chills. CVS no chest pain, no palpitation. Respiratory no cough no sob. Gastrointestinal nausea, vomiting, mild epigastric pain Physical Exam Vital Signs: Vital Signs: Last Vital Signs Temp 98.9 F 06/04/21 15:02 Pulse 62 06/04/21 15:32 Resp 20 06/04/21 15:02 BP 143/62 H 06/04/21 15:32 Pulse Ox 96 06/04/21 15:02 Body Mass Index 66.6 General: AxO X3, m orbidly obese, no acute distress Nec k no JVD Resp:? CT A bilateral, no ac cessory muscles us ed CVS: S1,S2,RRR GI: soft,? tender over panus, obese, bowel sounds vincent ble Neuro:? motor grossly intact, al ert Extremities no pitting edema Psy ch: appropriate af fect, appropriate insight? Objective Data Active Medications Amlodipine Besylate (Amlodipine Besylate 10 Mg Tablet) 10 mg PO DAILY [facility]; Protocol Last Admin: 06/04/21 08:07 Dose: 10 mg Documented by: THEO Heparin Sodium (Porcine) (Heparin Sodium,Porcine 5,000 Unit/Ml Vial) 5,000 unit SUBCUT Q8H [facility] Last Admin: 06/04/21 08:08 Dose: 5,000 unit Documented by: THEO Hydralazine HCl (Hydralazine Hcl 25 Mg Tablet) 25 mg PO TID [facility]; Protocol Last Admin: 06/04/21 15:32 Dose: 25 mg Documented by: CARMEN Ceftriaxone Sodium 1 gm/ (Sodium Chloride) 50 mls @ 100 mls/hr IV Q24H [facility] Last Infusion: 06/03/21 20:45 Dose: 0 mls/hr Documented by: VIKTOR Insulin Glargine (Insulin Glargine,Hum.Rec.Anlog 100 Unit/Ml 10 Ml Vial) 50 unit SUBCUT BID [facility] Last Admin: 06/04/21 08:08 Dose: 50 unit Documented by: THEO Insulin Human Lispro (Insulin Lispro 100 Unit/Ml 3 Ml Vial) 0 unit SUBCUT QIDACHS [facility]; Protocol Last Admin: 06/04/21 11:50 Dose: Not Given Documented by: JAMI Non-Admin Reason: Patient Refused Morphine Sulfate (Morphine Sulfate 2 Mg/Ml Cartridge) 1 mg IVPUSH Q6H PRN; Pro tocol PRN Reason: Angina Nitroglycerin (Nitroglycerin 0.4 Mg Tab.Subl) 0.4 mg SUBLINGUAL Q5MX3 PRN PRN Reason: Chest Pain Last Admin: 06/01/21 20:24 Dose: 0.4 mg Documented by: GREG Non-Formulary Medication (Calcifediol [Rayaldee]) 1 cap PO DAILY [facility] Nystatin (Nystatin Cream 15 Gm Tube) 1 appl TOPICAL BID [facility]; Protocol Last Admin: 06/04/21 08:11 Dose: 1 appl Documented by: THEO Ondansetron HCl (Ondansetron Odt 4 Mg Tab.Rapdis) 4 mg TRANSLINGU Q8H [facility] Last Admin: 06/04/21 15:31 Dose: 4 mg Documented by: CARMEN Oxybutynin Chloride (Oxybutynin Chloride Er 5 Mg Tab.Er.24) 5 mg PO DAILY [facility] Ropinirole HCl (Ropinirole Hcl 0.5 Mg Tablet) 0.5 mg PO BEDTIME [facility] Last Admin: 06/03/21 19:53 Dose: 0.5 mg Documented by: VIKTOR Sodium Chloride (0.9 % Sodium Chloride Flush 3 Ml Syringe) 3 ml IVFLUSH QSHIFT [facility] Last Admin: 06/04/21 15:32 Dose: 3 ml Documented by: CARMEN Sodium Zirconium Cyclosilicate (Sodium Zirconium Cyclosilicate 5 Gm Powd.Pack) 5 gm PO DAILY [facility] Last Admin: 06/04/21 10:56 Dose: 5 gm Documented by: TYBURBenji Torsemide (Torsemide 20 Mg Tablet) 100 mg PO BID [facility]; Protocol Last Admin: 06/04/21 08:06 Dose: 100 mg Documented by: THEO Labs CBC & Chem 7: 06/04/21 05:55 06/04/21 05:55 Labs: Laboratory Results - last 24 hr 06/03/21 06/03/21 06/04/21 15:58 19:55 05:55 MCV 95.3 MCH 30.2 MCHC 31.7 RDW 12.9 Plt Count 312 MPV 10.1 Absolute Nucleated RBC 0.000 Nucleated RBC % (auto) 0.0 Anion Gap Estim Creat Clear Calc Estimated GFR POC Glucose 166 H 137 H Fasting Glucose Calcium 06/04/21 06/04/21 06/04/21 05:55 07:04 11:10 MCV MCH MCHC RDW Plt Count MPV Absolute Nucleated RBC Nucleated RBC % (auto) Anion Gap 12 Estim Creat Clear Calc 38.5 Estimated GFR 18 POC Glucose 158 H 159 H Fasting Glucose 172 H Calcium 8.1 L Assessment and Plan (1) Hyperkalemia: Status: Acute (2) Heart failure with preserved ejection fraction: Status: Acute (3) Acute on chronic diastolic (congestive) heart failure: Status: Acute (4) Morbid obesity: Status: Acute (5) Essential hypertension: Status: Acute (6) CKD (chronic kidney disease) stage 4, GFR 15-29 ml/min: Status: Acute (7) Type 2 diabetes mellitus with obesity: Status: Acute Assessment and Plan: 60F presented with inability to get out of bed and sob and dysuria acute on chronic diastoliic chf Resolved currently patient euvolemic, continue torsemide home dose 100mg po bid had recent echo in december 2020, but showed stable EF nasuea and vomitting spoke with nurse patient tolerating 100% of meals, no vomiting noted, Case discussed with Dr. donahue patient is status post extensive workup including CT abdomen and pelvis that showed no abnormality, status post upper endoscopy 08/18 that was fairly unremarkable ,normal nuclear medicine gastric emptying study after that,on chronic PPI. Likely nausea related to her medications including oxybutynin and Requip, will decrease dose of oxybutynin to 5 mg daily, will place her on Zofran before meals, EKG showed no QTC prolongation Will order small-bowel follow-through for completion of workup. Constipation Will add MiraLax and Colace UTI On rocephin day 4 urine culture showed no growth, will DC IV Rocephin morbid obesity complicated by inability to ambulate Check TSH Recommend binder for panus while ambulating, PT recommending STR at SNF to improve bed mobility and hopefully ability to stand, social work job titles arranging for rehab bed hyperkalemia Being followed by Nephrology they feel hyperkalemia Due to compromised distal flow, low renin aldosterone state They recommend to continue sodium zirconium 5 grams daily low potassium diet follow kidney function and electrolytes htn Blood pressure improving continue amlodipine monitor bp, no adjustments for now DM basal bolus insulin, monitor poc CKD IV due to diabetes and hypertension Baseline creatinine 2-2.5 , current creatinine 2.6 monitor renal function dvt prophylaxis - heparin sq Quality Stroke Does the patient have a stroke diagnosis?: No VTE Prior VTE?: No VTE Risk Level:: Medical - moderate - high VTE Device Contraindication: Treatment Not Indicated VTE Drug Contraindication: N/A - Med Ordered
[2021-06-04 16:13] LABS: Glucose, Whole Blood 147 mg/dL (60-115)
[2021-06-04 20:23] LABS: Glucose, Whole Blood 169 mg/dL (60-115)
[2021-06-04] MEDS: Docusate Sodium 100 MG CAPSULE 200 MG PO (20:52)
[2021-06-04] MEDS: rOPINIRole HCL 0.5 MG TABLET PO (20:53)
[2021-06-05] VITALS (7 sets, daily range): BP systolic 131–159; BP diastolic 56–74; PULSE 68–76; RESP 18–20; TEMP 36.1–37.2; O2SAT 93–98
[2021-06-05] MEDS: Heparin Sodium,Porcine 5,000 UNIT/ML VIAL 5000 UNIT SUBCUT ×3 (00:53→16:13)
[2021-06-05] MEDS: 0.9 % Sodium Chloride Flush 3 ML SYRINGE IVFLUSH ×4 (00:53→21:03)
[2021-06-05 06:33] LABS: B Type Natriuretic Peptide 214 pg/mL (<100)
[2021-06-05 06:35] LABS: Anion Gap 12 (12-20); Blood Urea Nitrogen 40 mg/dL (9-16); Calcium 7.6 mg/dL (8.4-10.2); Carbon Dioxide 23 mmol/L (22-29); Chloride 108 mmol/L (96-108); Creatinine Clr Calc Pharmacy 34.9; Estimated Glomerular Filt Rate 16; Glucose Random 135 mg/dL (60-115); Potassium 4.9 mmol/L (3.3-5.1); Sodium 138 mmol/L (135-145)
[2021-06-05 07:27] LABS: Glucose, Whole Blood 104 mg/dL (60-115)
[2021-06-05 12:06] LABS: Glucose, Whole Blood 90 mg/dL (60-115)
[2021-06-05] MEDS: Nystatin Cream 15 GM TUBE 1 APPL TOPICAL ×2 (12:07→21:13)
[2021-06-05] MEDS: Dextrose 5 % and 0.45 % NaCl 1,000 ML 80 ML IVCONT (13:58)
--- NOTE | 2021-06-05 14:40 | HO.PM.IMPN ---
Subjective Subjective Date of Service: 06/05/21 Interval History: Patient being followed for intractable nausea vomiting and acute congestive heart failure, this a.m. patient is NPO noted to have low blood sugars since getting upper GI small-bowel x-rays nausea and vomiting have significantly improved, no acute overnight issues, patient concerned about bariatric surgery and requesting for inpatient consultation. Review of Systems General no headache, no dizziness no fever chills.? CVS no chest pain, no palpitation.? Respiratory no cough, no sob.? Gastrointestinal? no nausea, no vomiting, no abdominalpain Physical Exam Vital Signs: Vital Signs: Last Vital Signs Temp 98 F 06/05/21 12:00 Pulse 71 06/05/21 12:00 Resp 18 06/05/21 12:00 BP 155/74 H 06/05/21 12:00 Pulse Ox 98 06/05/21 12:00 Body Mass Index 66.6 General: AxO X3, morbidly obese, no acute distress Neck no JVD Resp:? CTA bilateral, no accessory muscles used CVS: S1,S2,RRR GI: soft,?nontender, obese,?bowel sounds audible Neuro:? motor grossly intact, alert Extremities no?pitting edema Psych: appropriate affect, appropriate insight? Objective Data Active Medications Amlodipine Besylate (Amlodipine Besylate 10 Mg Tablet) 10 mg PO DAILY [facility]; Protocol Last Admin: 06/05/21 12:06 Dose: Not Given Documented by: MATTHIEU Non-Admin Reason: NPO Docusate Sodium (Docusate Sodium 100 Mg Capsule) 200 mg PO BEDTIME [facility] Last Admin: 06/04/21 20:52 Dose: 200 mg Documented by: CARMEN Heparin Sodium (Porcine) (Heparin Sodium,Porcine 5,000 Unit/Ml Vial) 5,000 unit SUBCUT Q8H [facility] Last Admin: 06/05/21 12:39 Dose: 5,000 unit Documented by: MATTHIEU Hydralazine HCl (Hydralazine Hcl 25 Mg Tablet) 25 mg PO TID [facility]; Protocol Last Admin: 06/05/21 12:06 Dose: Not Given Documented by: MATTHIEU Non-Admin Reason: NPO Dextrose/Sodium Chloride (D51/2ns) 1,000 mls @ 80 mls/hr IVCONT .[id number] [facility] Last Admin: 06/05/21 13:58 Dose: 80 mls/hr Documented by: MATTHIEU Insulin Glargine (Insulin Glargine,Hum.Rec.Anlog 100 Unit/Ml 10 Ml Vial) 50 unit SUBCUT BID [facility] Last Admin: 06/05/21 12:06 Dose: Not Given Documented by: MATTHIEU Non-Admin Reason: NPO Insulin Human Lispro (Insulin Lispro 100 Unit/Ml 3 Ml Vial) 0 unit SUBCUT QIDACHS [facility]; Protocol Last Admin: 06/05/21 12:35 Dose: Not Given Documented by: MATTHIEU Non-Admin Reason: No Insulin Coverage Morphine Sulfate (Morphine Sulfate 2 Mg/Ml Cartridge) 1 mg IVPUSH Q6H PRN; Protocol PRN Reason: Angina Nitroglycerin (Nitroglycerin 0.4 Mg Tab.Subl) 0.4 mg SUBLINGUAL Q5MX3 PRN PRN Reason: Chest Pain Last Admin: 06/01/21 20:24 Dose: 0.4 mg Documented by: GREG Non-Formulary Medication (Calcifediol [Rayaldee]) 1 cap PO DAILY [facility] Nystatin (Nystatin Cream 15 Gm Tube) 1 appl TOPICAL BID [facility]; Protocol Last Admin: 06/05/21 12:07 Dose: 1 appl Documented by: MATTHIEU Omeprazole (Omeprazole 20 Mg Capsule.Dr) 20 mg PO DAILY@0630 [facility] Last Admin: 06/05/21 13:58 Dose: Not Given Documented by: MATTHIEU Non-Admin Reason: Patient Refused Ondansetron HCl (Ondansetron Odt 4 Mg Tab.Rapdis) 4 mg TRANSLINGU TIDAC [facility] Last Admin: 06/05/21 12:07 Dose: Not Given Documented by: MATTHIEU Non-Admin Reason: NPO Oxybutynin Chloride (Oxybutynin Chloride Er 5 Mg Tab.Er.24) 5 mg PO DAILY [facility] Last Admin: 06/05/21 12:07 Dose: Not Given Documented by: MATTHIEU Non-Admin Reason: NPO Polyethylene Glycol (Polyethylene Glycol 3350 17 Gm Powd.Pack) 17 gm PO DAILY [facility] Last Admin: 06/05/21 12:07 Dose: Not Given Documented by: MATTHIEU Non-Admin Reason: NPO Ropinirole HCl (Ropinirole Hcl 0.5 Mg Tablet) 0.5 mg PO BEDTIME [facility] Last Admin: 06/04/21 20:53 Dose: 0.5 mg Documented by: CARMEN Sodium Chloride (0.9 % Sodium Chloride Flush 3 Ml Syringe) 3 ml IVFLUSH QSHIFT [facility] Last Admin: 06/05/21 12:06 Dose: 3 ml Documented by: MATTHIEU Sodium Zirconium Cyclosilicate (Sodium Zirconium Cyclosilicate 5 Gm Powd.Pack) 5 gm PO DAILY [facility] Last Admin: 06/05/21 12:07 Dose: Not Given Documented by: MATTHIEU Non-Admin Reason: NPO Labs CBC & Chem 7: 06/04/21 05:55 06/05/21 05:38 Labs: Laboratory Results - last 24 hr 06/04/21 06/04/21 06/05/21 16:02 20:15 05:38 Anion Gap 12 Estim Creat Clear Calc 34.9 Estimated GFR 16 POC Glucose 147 H 169 H Random Glucose 135 H Calcium 7.6 L D B-Natriuretic Peptide TSH 2.80 06/05/21 06/05/21 06/05/21 05:38 07:21 12:02 Anion Gap Estim Creat Clear Calc Estimated GFR POC Glucose 104 90 Random Glucose Calcium B-Natriuretic Peptide 214 H TSH Assessment and Plan (1) Anemia: Status: Acute (2) Hyperkalemia: Status: Acute (3) Heart failure with preserved ejection fraction: Status: Acute (4) Alteration in skin integrity due to moisture: Status: Acute (5) Acute on chronic diastolic (congestive) heart failure: Status: Acute (6) Morbid obesity: Status: Acute (7) Hypothyroidism: Status: Acute (8) Essential hypertension: Status: Acute (9) CKD (chronic kidney disease) stage 4, GFR 15-29 ml/min: Status: Acute (10) Type 2 diabetes mellitus with obesity: Status: Acute Assessment and Plan: 60F presented with inability to get out of bed and sob and dysuria acute on chronic diastoliic chf Resolved currently patient euvolemic, hold torsemide (home dose 100mg po bid) due to worsening renal failure, will adjust dose of torsemide prior to discharge had recent echo in december 2020, but showed stable EF 60-65%, no evidence of regional wall motion abnormality grade 1 mild diastolic dysfunction nasuea and vomitting Nausea vomiting improved since started on Zofran scheduled t.i.d. before meals Awaiting result of small bowel follow-through study obtained this a.m. status post extensive workup including CT abdomen and pelvis that showed no abnormality,? status post upper endoscopy 08/18 that was fairly unremarkable ,normal nuclear medicine gastric emptying study after that, on? chronic PPI. Dose of oxybutynin reduced due to concern for nausea, will continue current dose If small-bowel follow-through negative and nausea reoccurs then will discuss with PCP to DC requip, EKG showed no QTC prolongation, continues off Acute on CKD IV due to diabetes and hypertension Baseline creatinine 2-2.5 , creatinine bumped to 2.9 today likely due to over diuresis, will hold torsemide give IV fluid and follow renal function Constipation Resolved, continue MiraLax and Colace morbid obesity complicated by inability to ambulate TSH normal Recommend binder for panus while ambulating, Recommend outpatient follow-up with bariatric surgery PT recommending STR at SNF to improve bed mobility and hopefully ability to stand, neonatal social worker arranging for rehab bed hyperkalemia Potassium improved to 4.9 Being followed by Nephrology they feel hyperkalemia Due to compromised distal flow, low renin aldosterone state They recommend to continue sodium zirconium 5 grams daily low potassium diet follow kidney function and electrolytes htn Blood pressure improving continue amlodipine and hydralazine 25 t.i.d., monitor bp, no adjustments for now DM basal bolus insulin, monitor poc dvt prophylaxis - heparin sq Quality Stroke Does the patient have a stroke diagnosis?: No VTE Prior VTE?: No VTE Risk Level:: Medical - moderate - high VTE Device Contraindication: Treatment Not Indicated VTE Drug Contraindication: N/A - Med Ordered
[2021-06-05] MEDS: hydrALAZINE HCl 25 MG TABLET PO ×2 (16:06→21:03)
[2021-06-05] MEDS: Ondansetron ODT 4 MG TAB.RAPDIS TRANSLINGU (16:06)
[2021-06-05 16:13] LABS: Glucose, Whole Blood 89 mg/dL (60-115)
[2021-06-05 19:55] LABS: Glucose, Whole Blood 159 mg/dL (60-115)
[2021-06-05] MEDS: rOPINIRole HCL 0.5 MG TABLET PO (21:02)
[2021-06-05] MEDS: Docusate Sodium 100 MG CAPSULE 200 MG PO (21:02)
[2021-06-05] MEDS: Insulin Lispro 100 UNIT/ML 3 ML VIAL SUBCUT (21:20)
[2021-06-05] MEDS: Insulin Glargine,Hum.rec.anlog 100 UNIT/ML 10 ML VIAL 40 UNIT SUBCUT (21:20)
[2021-06-06] VITALS (10 sets, daily range): BP systolic 125–148; BP diastolic 54–72; PULSE 20–75; RESP 18–69; TEMP 36.1–37.2; O2SAT 92–98
[2021-06-06] MEDS: Heparin Sodium,Porcine 5,000 UNIT/ML VIAL 5000 UNIT SUBCUT ×3 (00:03→16:35)
[2021-06-06] MEDS: Morphine Sulfate 2 MG/ML CARTRIDGE 1 MG IVPUSH (04:26)
[2021-06-06] MEDS: Dextrose 5 % and 0.45 % NaCl 1,000 ML 80 ML IVCONT (04:26)
[2021-06-06] MEDS: Omeprazole 20 MG CAPSULE.DR PO (05:16)
[2021-06-06 07:04] LABS: Anion Gap 11 (12-20); Blood Urea Nitrogen 42 mg/dL (9-16); Calcium 7.7 mg/dL (8.4-10.2); Carbon Dioxide 24 mmol/L (22-29); Chloride 107 mmol/L (96-108); Creatinine Clr Calc Pharmacy 35.3; Estimated Glomerular Filt Rate 17; Glucose Random 122 mg/dL (60-115); Potassium 4.4 mmol/L (3.3-5.1); Sodium 138 mmol/L (135-145)
[2021-06-06 07:22] LABS: Glucose, Whole Blood 118 mg/dL (60-115)
[2021-06-06 08:04] LABS: Cholesterol 264 mg/dL; HDL Cholesterol 54 mg/dL; LDL Cholesterol Calculated 176 mg/dl; Triglycerides 171 mg/dL
[2021-06-06] MEDS: hydrALAZINE HCl 25 MG TABLET PO ×3 (08:33→21:08)
[2021-06-06] MEDS: amLODIPine Besylate 10 MG TABLET PO (08:34)
[2021-06-06] MEDS: Insulin Glargine,Hum.rec.anlog 100 UNIT/ML 10 ML VIAL 40 UNIT SUBCUT ×2 (08:34→21:08)
[2021-06-06] MEDS: Ondansetron ODT 4 MG TAB.RAPDIS TRANSLINGU (08:34)
[2021-06-06] MEDS: Aspirin Enteric Coated 81 MG TABLET.DR PO (08:34)
[2021-06-06] MEDS: Nystatin Cream 15 GM TUBE 1 APPL TOPICAL (08:35)
[2021-06-06] MEDS: Sodium Zirconium Cyclosilicate 5 GM POWD.PACK PO (08:37)
[2021-06-06 11:27] LABS: Glucose, Whole Blood 161 mg/dL (60-115)
[2021-06-06] MEDS: Insulin Lispro 100 UNIT/ML 3 ML VIAL SUBCUT ×2 (11:39→21:07)
--- NOTE | 2021-06-06 12:33 | PC.NURSE ---
Skin assessment completed today. Patient has open blisters on right hip and back. Triad applied to all areas covered with foam. Interdry applied to red areas in abdominal folds and pannis. Left elbow red dryness- lotion applied. No other skin issues noted at this time.
[2021-06-06] MEDS: 0.9 % Sodium Chloride Flush 3 ML SYRINGE IVFLUSH ×2 (15:01→21:09)
--- NOTE | 2021-06-06 15:25 | PM.PNNEP ---
Subjective Subjective Date of Service: 06/06/21 Interval history: seen and examined complains of nausea discussed with medical attending Physical Exam Vital Signs: Vital Signs: Last Vital Signs Temp 97 F 06/06/21 11:04 Pulse 61 06/06/21 15:01 Resp 69 H 06/06/21 11:04 BP 141/54 H 06/06/21 15:01 Pulse Ox 92 06/06/21 11:04 Body Mass Index 66.6 Const: General: no acute distress HENMT: Head: Yes normocephalic and Yes atraumatic Neck: Neck: Yes supple Resp: Auscultation: diminished lung sounds Cardio: Heart sounds: S1 normal heart sound present and S2 normal heart sound present GI: Palpation (GI): Soft to palpation and no guarding Extrem: General: Yes pedal edema Objective Data Labs CBC & Chem 7: 06/04/21 05:55 06/06/21 05:53 Labs: Laboratory Results - last 24 hr 06/05/21 06/05/21 06/06/21 16:04 19:48 05:53 Sodium 138 Potassium 4.4 Chloride 107 Carbon Dioxide 24 Anion Gap 11 L BUN 42 H Creatinine 2.88 H Estim Creat Clear Calc 35.3 Estimated GFR 17 POC Glucose 89 159 H Random Glucose 122 H Calcium 7.7 L Triglycerides 171 Cholesterol 264 LDL Cholesterol, Calc 176 HDL Cholesterol 54 06/06/21 06/06/21 07:18 11:03 Sodium Potassium Chloride Carbon Dioxide Anion Gap BUN Creatinine Estim Creat Clear Calc Estimated GFR POC Glucose 118 H 161 H Random Glucose Calcium Triglycerides Cholesterol LDL Cholesterol, Calc HDL Cholesterol Microbiology Microbiology Results: Microbiology 06/01/21 00:43 Blood - Venous Blood Culture - Final No growth after 5 days. 06/01/21 00:43 Blood - Venous Blood Culture - Final No growth after 5 days. 05/31/21 22:45 Urine clean catch - Urine rubin top Urine Culture - Final Procedures Date of Service Date of Service: 06/06/21 Assessment & Plan Assessment and plan (1) CKD (chronic kidney disease) stage 4, GFR 15-29 ml/min: Status: Acute (2) Heart failure with preserved ejection fraction: Status: Acute (3) Hyperkalemia: Status: Acute (4) Anemia: Status: Acute Assessment and Plan: Scr up probably due to overdiuresis advanced CKD due to DM/HTN baseline Scr 2-2.5 mg/dl elevated serum potassium due to: -compromised distal flow -low renin aldosterone state (heparin can also cause type IV RTA) known heart failure with preserved function REC reduce torsemide 40 mg bid (resume tomorrow) continue sodium zirconium 5 grams daily low potassium diet follow kidney function and electrolytes Time Spent With Patient Time: Total time spent is greater than 50% in coordination of care (as documented) at patient's floor/unit and/or counseling patient: Progress Note: Quality Stroke Does the patient have a stroke diagnosis?: No
--- NOTE | 2021-06-06 15:51 | P.PNIM_ITS ---
Subjective Subjective Date of Service: 06/06/21 Interval History: Patient being followed for intractable nausea vomiting and acute congestive heart failure, patient complaining of lower back pain due to being in bed for last several days , nausea vomiting resolved, tolerating diet . No other acute issues overnight. Review of Systems General no headache, no dizziness no fever chills.? CVS no chest pain, no palpitation.? Respiratory no cough, no sob.? Gastrointestinal? no nausea, no vomiting, no abdominal pain Musculoskeletal back pain Physical Exam Vital Signs: Vital Signs: Last Vital Signs Temp 98.9 F 06/06/21 15:38 Pulse 65 06/06/21 15:38 Resp 18 06/06/21 15:38 BP 142/63 H 06/06/21 15:38 Pulse Ox 98 06/06/21 15:38 Body Mass Index 66.6 General: AxO X3, morbidly obese, no acute distress Neck no JVD Resp:? CTA bilateral, no accessory muscles used CVS: S1,S2,RRR GI: soft,?nontender, obese,?bowel sounds audible Neuro:? motor grossly intact, alert Extremities no?pitting edema Psych: appropriate affect, appropriate insight? Objective Data Active Medications Amlodipine Besylate (Amlodipine Besylate 10 Mg Tablet) 10 mg PO DAILY [facility]; Protocol Last Admin: 06/06/21 08:34 Dose: 10 mg Documented by: [place] Aspirin (Aspirin Enteric Coated 81 Mg Tablet.) 81 mg PO DAILY [facility] Last Admin: 06/06/21 08:34 Dose: 81 mg Documented by: [place] Docusate Sodium (Docusate Sodium 100 Mg Capsule) 200 mg PO BEDTIME [facility] Last Admin: 06/05/21 21:02 Dose: 200 mg Documented by: BR[place] Heparin Sodium (Porcine) (Heparin Sodium,Porcine 5,000 Unit/Ml Vial) 5,000 unit SUBCUT Q8H [facility] Last Admin: 06/06/21 08:35 Dose: 5,000 unit Documented by: [place] Hydralazine HCl (Hydralazine Hcl 25 Mg Tablet) 25 mg PO TID [facility]; Protocol Last Admin: 06/06/21 15:01 Dose: 25 mg Documented by: [place] Insulin Glargine (Insulin Glargine,Hum.Rec.Anlog 100 Unit/Ml 10 Ml Vial) 40 unit SUBCUT BID [facility] Last Admin: 06/06/21 08:34 Dose: 40 unit Documented by: [place] Insulin Human Lispro (Insulin Lispro 100 Unit/Ml 3 Ml Vial) 0 unit SUBCUT QIDACHS [facility]; Protocol Last Admin: 06/06/21 11:39 Dose: 2 unit Documented by: [place] Morphine Sulfate (Morphine Sulfate 2 Mg/Ml Cartridge) 1 mg IVPUSH Q6H PRN; Protocol PRN Reason: Angina Last Admin: 06/06/21 04:26 Dose: 1 mg Documented by: [place] Nitroglycerin (Nitroglycerin 0.4 Mg Tab.Subl) 0.4 mg SUBLINGUAL Q5MX3 PRN PRN Reason: Chest Pain Last Admin: 06/01/21 20:24 Dose: 0.4 mg Documented by: GREG Non-Formulary Medication (Calcifediol [Rayaldee]) 1 cap PO DAILY [facility] Nystatin (Nystatin Cream 15 Gm Tube) 1 appl TOPICAL BID [facility]; Protocol Last Admin: 06/06/21 08:35 Dose: 1 appl Documented by: [place] Omeprazole (Omeprazole 20 Mg Capsule.Dr) 20 mg PO DAILY@0630 [facility] Last Admin: 06/06/21 05:16 Dose: 20 mg Documented by: [place] Ondansetron HCl (Ondansetron Odt 4 Mg Tab.Rapdis) 4 mg TRANSLINGU TIDAC [facility] Last Admin: 06/06/21 11:39 Dose: Not Given Documented by: [place] Non-Admin Reason: Patient Refused Oxybutynin Chloride (Oxybutynin Chloride Er 5 Mg Tab.Er.24) 5 mg PO DAILY [facility] Last Admin: 06/06/21 08:34 Dose: 5 mg Documented by: [place] Polyethylene Glycol (Polyethylene Glycol 3350 17 Gm Powd.Pack) 17 gm PO DAILY [facility] Last Admin: 06/06/21 08:35 Dose: Not Given Documented by: [place] Non-Admin Reason: Patient Refused Ropinirole HCl (Ropinirole Hcl 0.5 Mg Tablet) 0.5 mg PO BEDTIME [facility] Last Admin: 06/05/21 21:02 Dose: 0.5 mg Documented by: [place] Sodium Chloride (0.9 % Sodium Chloride Flush 3 Ml Syringe) 3 ml IVFLUSH QSHIFT [facility] Last Admin: 06/06/21 15:01 Dose: 3 ml Documented by: [place] Sodium Zirconium Cyclosilicate (Sodium Zirconium Cyclosilicate 5 Gm Powd.Pack) 5 gm PO DAILY [facility] Last Admin: 06/06/21 08:37 Dose: 5 gm Documented by: [place] Labs CBC & Chem 7: 06/04/21 05:55 06/06/21 05:53 Labs: Laboratory Results - last 24 hr 06/05/21 06/05/21 06/06/21 16:04 19:48 05:53 Anion Gap 11 L Estim Creat Clear Calc 35.3 Estimated GFR 17 POC Glucose 89 159 H Random Glucose 122 H Calcium 7.7 L Triglycerides 171 Cholesterol 264 LDL Cholesterol, Calc 176 HDL Cholesterol 54 06/06/21 06/06/21 07:18 11:03 Anion Gap Estim Creat Clear Calc Estimated GFR POC Glucose 118 H 161 H Random Glucose Calcium Triglycerides Cholesterol LDL Cholesterol, Calc HDL Cholesterol Microbiology Microbiology Results: Microbiology 06/01/21 00:43 Blood Culture - Final Blood - Venous No growth after 5 days. 06/01/21 00:43 Blood Culture - Final Blood - Venous No growth after 5 days. Assessment and Plan (1) Hyperkalemia: Status: Acute (2) Anemia: Status: Acute (3) Heart failure with preserved ejection fraction: Status: Acute (4) Acute on chronic diastolic (congestive) heart failure: Status: Acute (5) Morbid obesity: Status: Acute (6) Hypothyroidism: Status: Acute (7) Essential hypertension: Status: Acute (8) CKD (chronic kidney disease) stage 4, GFR 15-29 ml/min: Status: Acute (9) Type 2 diabetes mellitus with obesity: Status: Acute Assessment and Plan: 60F presented with inability to get out of bed and sob and dysuria acute on chronic diastoliic chf Resolved currently patient euvolemic, hold torsemide (home dose 100mg po bid) due to worsening renal failure Will resume torsemide low-dose 40 mg b.i.d. starting tomorrow had recent echo in december 2020, but showed stable EF 60-65%, no evidence of yosi onal wall motion abnormality grade 1 mild diastolic dysfunction nasuea and vomitting Nausea vomiting improved since started on Zofran scheduled t.i.d. before meals small bowel follow-through showed delayed small bowel transit otherwise no other abnormality status post extensive workup including CT abdomen and pelvis that showed no abnormality,? status post upper endoscopy 08/18 that was fairly unremarkable ,normal nuclear medicine gastric emptying study after that, on chronic PPI. Dose of oxybutynin reduced due to concern for nausea If nausea reoccurs then will discuss with PCP to DC requip, EKG showed no QTC prolongation Acute on CKD IV due to diabetes and hypertension Baseline creatinine 2-2.5 , creatinine bumped to 2.8 , likely due to over diuresis, will hold torsemide follow renal function Constipation Resolved, continue? MiraLax and Colace morbid obesity complicated by inability to ambulate TSH normal Recommend binder for panus while ambulating, Recommend outpatient follow-up with bariatric surgery PT recommending STR at SNF to improve bed mobility and hopefully ability to stand, older adult social work specialist arranging for rehab bed hyperkalemia Potassium improved to 4.4 Being followed by Nephrology they feel hyperkalemia Due to compromised distal flow, low renin aldosterone state continue sodium zirconium 5 grams daily,low potassium diet follow kidney function and electrolytes htn Blood pressure improving continue amlodipine and hydralazine 25 t.i.d., monitor bp, was on losartan discontinued by outpatient Nephrology DM Blood sugars stable basal bolus insulin, monitor poc dvt prophylaxis - heparin sq Quality Stroke Does the patient have a stroke diagnosis?: No VTE Prior VTE?: No VTE Risk Level:: Medical - moderate - high VTE Device Contraindication: Treatment Not Indicated VTE Drug Contraindication: N/A - Med Ordered
--- NOTE | 2021-06-06 15:57 | MHC.CM.PN ---
[facility] STR referrals have been made. [facility] is following. They do not have a bed today. They may have a bed offer tomorrow.
[2021-06-06 16:14] LABS: Glucose, Whole Blood 140 mg/dL (60-115)
[2021-06-06 20:38] LABS: Glucose, Whole Blood 202 mg/dL (60-115)
[2021-06-06] MEDS: rOPINIRole HCL 0.5 MG TABLET PO (21:07)
[2021-06-07] VITALS (10 sets, daily range): BP systolic 109–164; BP diastolic 50–70; PULSE 67–101; RESP 16–22; TEMP 36.4–37.2; O2SAT 96–98
[2021-06-07] MEDS: Omeprazole 20 MG CAPSULE.DR PO (06:34)
[2021-06-07 07:20] LABS: Anion Gap 11 (12-20); Blood Urea Nitrogen 46 mg/dL (9-16); Calcium 7.4 mg/dL (8.4-10.2); Carbon Dioxide 21 mmol/L (22-29); Chloride 108 mmol/L (96-108); Creatinine Clr Calc Pharmacy 34.4; Estimated Glomerular Filt Rate 16; Glucose Random 141 mg/dL (60-115); Potassium 4.4 mmol/L (3.3-5.1); Sodium 136 mmol/L (135-145)
[2021-06-07 07:29] LABS: Glucose, Whole Blood 119 mg/dL (60-115)
[2021-06-07] MEDS: Aspirin Enteric Coated 81 MG TABLET.DR PO (09:11)
[2021-06-07] MEDS: Sodium Zirconium Cyclosilicate 5 GM POWD.PACK PO (09:11)
[2021-06-07] MEDS: Heparin Sodium,Porcine 5,000 UNIT/ML VIAL 5000 UNIT SUBCUT ×2 (09:11→16:35)
[2021-06-07] MEDS: Torsemide 20 MG TABLET 40 MG PO ×2 (09:13→16:34)
[2021-06-07] MEDS: 0.9 % Sodium Chloride Flush 3 ML SYRINGE IVFLUSH ×2 (09:13→16:37)
[2021-06-07] MEDS: hydrALAZINE HCl 25 MG TABLET PO ×3 (09:18→21:47)
[2021-06-07] MEDS: Insulin Glargine,Hum.rec.anlog 100 UNIT/ML 10 ML VIAL 40 UNIT SUBCUT ×2 (09:19→21:44)
[2021-06-07] MEDS: amLODIPine Besylate 10 MG TABLET PO (09:19)
[2021-06-07] MEDS: Nystatin Cream 15 GM TUBE 1 APPL TOPICAL ×2 (09:21→22:17)
--- NOTE | 2021-06-07 09:21 | HO.PM.IMPN ---
Subjective Subjective Date of Service: 06/07/21 Interval History: Patient being followed for intractable nausea vomiting and acute congestive heart failure, patient complaining of lower back pain due to being in bed for last several days , no more n/v and tolrating diet Review of Systems General no headache, no dizziness no fever chills.? CVS no chest pain, no palpitation.? Respiratory no cough, no sob.? Gastrointestinal? no nausea, no vomiting, no abdominal pain Musculoskeletal? back pain Physical Exam Vital Signs: Vital Signs: Last Vital Signs Temp 98.9 F 06/07/21 07:40 Pulse 101 H 06/07/21 09:19 Resp 20 06/07/21 07:40 BP 109/70 06/07/21 09:19 Pulse Ox 96 06/07/21 07:40 Body Mass Index 66.6 Objective Data Active Medications Amlodipine Besylate (Amlodipine Besylate 10 Mg Tablet) 10 mg PO DAILY [facility]; Protocol Last Admin: 06/07/21 09:19 Dose: 10 mg Documented by: [place] Aspirin (Aspirin Enteric Coated 81 Mg Tablet.) 81 mg PO DAILY [facility] Last Admin: 06/07/21 09:11 Dose: 81 mg Documented by: [place] Docusate Sodium (Docusate Sodium 100 Mg Capsule) 200 mg PO BEDTIME [facility] Last Admin: 06/06/21 21:09 Dose: Not Given Documented by: VIOLETTA Non-Admin Reason: Patient Refused Heparin Sodium (Porcine) (Heparin Sodium,Porcine 5,000 Unit/Ml Vial) 5,000 unit SUBCUT Q8H [facility] Last Admin: 06/07/21 09:11 Dose: 5,000 unit Documented by: [place] Hydralazine HCl (Hydralazine Hcl 25 Mg Tablet) 25 mg PO TID [facility]; Protocol Last Admin: 06/07/21 09:18 Dose: 25 mg Documented by: [place] Insulin Glargine (Insulin Glargine,Hum.Rec.Anlog 100 Unit/Ml 10 Ml Vial) 40 unit SUBCUT BID [facility] Last Admin: 06/07/21 09:19 Dose: 40 unit Documented by: [place] Insulin Human Lispro (Insulin Lispro 100 Unit/Ml 3 Ml Vial) 0 unit SUBCUT QIDACHS [facility]; Protocol Last Admin: 06/07/21 07:37 Dose: Not Given Documented by: [place] Non-Admin Reason: No Insulin Coverage Nitroglycerin (Nitroglycerin 0.4 Mg Tab.Subl) 0.4 mg SUBLINGUAL Q5MX3 PRN PRN Reason: Chest Pain Last Admin: 06/01/21 20:24 Dose: 0.4 mg Documented by: GREG Non-Formulary Medication (Calcifediol [Rayaldee]) 1 cap PO DAILY [facility] Nystatin (Nystatin Cream 15 Gm Tube) 1 appl TOPICAL BID [facility]; Protocol Last Admin: 06/07/21 09:21 Dose: 1 appl Documented by: [place] Omeprazole (Omeprazole 20 Mg Capsule.Dr) 20 mg PO DAILY@0630 [facility] Last Admin: 06/07/21 06:34 Dose: 20 mg Documented by: VIOLETTA Ondansetron HCl (Ondansetron Odt 4 Mg Tab.Rapdis) 4 mg TRANSLINGU TIDAC [facility] Last Admin: 06/07/21 09:15 Dose: Not Given Documented by: [place] Non-Admin Reason: Patient Refused Oxybutynin Chloride (Oxybutynin Chloride Er 5 Mg Tab.Er.24) 5 mg PO DAILY [facility] Last Admin: 06/07/21 09:11 Dose: 5 mg Documented by: [place] Polyethylene Glycol (Polyethylene Glycol 3350 17 Gm Powd.Pack) 17 gm PO DAILY [facility] Last Admin: 06/07/21 09:11 Dose: Not Given Documented by: [place] Non-Admin Reason: Patient Refused Ropinirole HCl (Ropinirole Hcl 0.5 Mg Tablet) 0.5 mg PO BEDTIME [facility] Last Admin: 06/06/21 21:07 Dose: 0.5 mg Documented by: VIOLETTA Sodium Chloride (0.9 % Sodium Chloride Flush 3 Ml Syringe) 3 ml IVFLUSH QSHIFT [facility] Last Admin: 06/07/21 09:13 Dose: 3 ml Documented by: [place] Sodium Zirconium Cyclosilicate (Sodium Zirconium Cyclosilicate 5 Gm Powd.Pack) 5 gm PO DAILY [facility] Last Admin: 06/07/21 09:11 Dose: 5 gm Documented by: [place] Torsemide (Torsemide 20 Mg Tablet) 40 mg PO BIDWM [facility]; Protocol Last Admin: 06/07/21 09:13 Dose: 40 mg Documented by: [place] Labs CBC & Chem 7: 06/04/21 05:55 06/07/21 06:19 Labs: Laboratory Results - last 24 hr 06/06/21 06/06/21 06/06/21 11:03 15:42 20:25 Anion Gap Estim Creat Clear Calc Estimated GFR POC Glucose 161 H 140 H 202 H Random Glucose Calcium 06/07/21 06/07/21 06:19 07:24 Anion Gap 11 L Estim Creat Clear Calc 34.4 Estimated GFR 16 POC Glucose 119 H Random Glucose 141 H Calcium 7.4 L Assessment and Plan (1) Hyperkalemia: Status: Acute (2) Anemia: Status: Acute (3) Heart failure with preserved ejection fraction: Status: Acute (4) Acute on chronic diastolic (congestive) heart failure: Status: Acute (5) Morbid obesity: Status: Acute (6) Hypothyroidism: Status: Acute (7) Essential hypertension: Status: Acute (8) CKD (chronic kidney disease) stage 4, GFR 15-29 ml/min: Status: Acute (9) Type 2 diabetes mellitus with obesity: Status: Acute Assessment and Plan: 60F presented with inability to get out of bed and sob and dysuria acute on chronic diastoliic chf Resolved currently patient euvolemic, hold torsemide (home dose 100mg po bid) due to worsening renal failurec continue torsemide at 40 mg b.i.d. starting today 06/07 had recent echo in december 2020, but showed stable EF 60-65%, no evidence of regional wall motion abnormality grade 1 mild diastolic dysfunction nasuea and vomitting Nausea vomiting improved since started on Zofran scheduled t.i.d. before meals small bowel follow-through showed delayed small bowel transit otherwise no other abnormality status post extensive workup including CT abdomen and pelvis that showed no abnormality,? status post upper endoscopy 08/18 that was fairly unremarkable ,normal nuclear medicine gastric emptying study after that, on chronic PPI. Dose of oxybutynin reduced due to concern for nausea If nausea reoccurs then will discuss with PCP to DC requip, EKG showed no QTC prolongation Acute on CKD IV due to diabetes and hypertension Baseline creatinine 2-2.5 , creatinine bumped to 2.9 , likely due to over diuresis, follow Cr with reduced Torsemide Constipation Resolved, continue? MiraLax and Colace morbid obesity complicated by inability to ambulate TSH normal Recommend binder for panus while ambulating, Recommend outpatient follow-up with bariatric surgery PT recommending STR at SNF to improve bed mobility and hopefully ability to stand, forensic social worker arranging for rehab bed hyperkalemia Potassium improved to 4.4 Being followed by Nephrology they feel hyperkalemia Due to compromised distal flow, low renin aldosterone state continue sodium zirconium 5 grams daily,low potassium diet follow kidney function and electrolytes HTN BP is normal, continue amlodipine and hydralazine 25 t.i.d., monitor bp, was on losartan discontinued by outpatient [employer] DM Blood sugars stable basal bolus insulin, monitor poc dvt prophylaxis - heparin sq Quality Stroke Does the patient have a stroke diagnosis?: No VTE Prior VTE?: No VTE Risk Level:: Medical - moderate - high VTE Device Contraindication: Treatment Not Indicated VTE Drug Contraindication: N/A - Med Ordered
[2021-06-07 11:26] LABS: Glucose, Whole Blood 156 mg/dL (60-115)
[2021-06-07] MEDS: Insulin Lispro 100 UNIT/ML 3 ML VIAL SUBCUT ×3 (11:51→21:43)
[2021-06-07 16:29] LABS: Glucose, Whole Blood 218 mg/dL (60-115)
--- NOTE | 2021-06-07 17:30 | PM.PNNEP ---
Subjective Subjective Date of Service: 06/07/21 Interval history: Events noted. All recent data reviewed Physical Exam Vital Signs: Vital Signs: Last Vital Signs Temp 98.9 F 06/07/21 15:37 Pulse 67 06/07/21 15:37 Resp 16 06/07/21 15:37 BP 126/53 L 06/07/21 15:37 Pulse Ox 96 06/07/21 15:37 Body Mass Index 66.6 Const: General: no acute distress Neck: Neck: Yes supple Resp: Auscultation: diminished lung sounds Cardio: Rate: regular rate GI: Palpation (GI): Soft to palpation Neuro: General: moves all extremities Extrem: General: Yes edema Objective Data Labs CBC & Chem 7: 06/04/21 05:55 06/07/21 06:19 Labs: Laboratory Results - last 24 hr 06/06/21 06/07/21 06/07/21 20:25 06:19 07:24 Sodium 136 Potassium 4.4 Chloride 108 Carbon Dioxide 21 L Anion Gap 11 L BUN 46 H Creatinine 2.95 H Estim Creat Clear Calc 34.4 Estimated GFR 16 POC Glucose 202 H 119 H Random Glucose 141 H Calcium 7.4 L 06/07/21 06/07/21 11:17 16:23 Sodium Potassium Chloride Carbon Dioxide Anion Gap BUN Creatinine Estim Creat Clear Calc Estimated GFR POC Glucose 156 H 218 H Random Glucose Calcium Microbiology Microbiology Results: Microbiology 06/01/21 00:43 Blood - Venous Blood Culture - Final No growth after 5 days. 06/01/21 00:43 Blood - Venous Blood Culture - Final No growth after 5 days. 05/31/21 22:45 Urine clean catch - Urine rubin top Urine Culture - Final Procedures Date of Service Date of Service: 06/07/21 Assessment & Plan Assessment and plan (1) CKD (chronic kidney disease) stage 4, GFR 15-29 ml/min: Status: Acute Assessment and Plan: Scr up due to tubular injury advanced CKD due to DM/HTN baseline Scr 2-2.5 mg/dl elevated serum potassium due to: -compromised distal flow -low renin aldosterone state (heparin can also cause type IV RTA) known heart failure with preserved function Continue current dose of torsemide continue sodium zirconium 5 grams daily low potassium diet; Labs AM Time Spent With Patient Time: Total time spent is greater than 50% in coordination of care (as documented) at patient's floor/unit and/or counseling patient: Progress Note: Quality Stroke Does the patient have a stroke diagnosis?: No
[2021-06-07 20:40] LABS: Glucose, Whole Blood 175 mg/dL (60-115)
[2021-06-07] MEDS: rOPINIRole HCL 0.5 MG TABLET PO (21:43)
[2021-06-08] VITALS (8 sets, daily range): BP systolic 125–142; BP diastolic 58–93; PULSE 67–74; RESP 16–20; TEMP 36.6–37.1; O2SAT 95–97
[2021-06-08] MEDS: 0.9 % Sodium Chloride Flush 3 ML SYRINGE IVFLUSH ×3 (00:34→17:03)
[2021-06-08] MEDS: Heparin Sodium,Porcine 5,000 UNIT/ML VIAL 5000 UNIT SUBCUT ×3 (02:05→17:01)
[2021-06-08 06:09] LABS: Anion Gap 12 (12-20); Blood Urea Nitrogen 49 mg/dL (9-16); Calcium 7.5 mg/dL (8.4-10.2); Carbon Dioxide 22 mmol/L (22-29); Chloride 107 mmol/L (96-108); Creatinine Clr Calc Pharmacy 33.7; Estimated Glomerular Filt Rate 16; Glucose Random 107 mg/dL (60-115); Potassium 4.3 mmol/L (3.3-5.1); Sodium 137 mmol/L (135-145)
[2021-06-08] MEDS: Omeprazole 20 MG CAPSULE.DR PO (06:30)
[2021-06-08 07:32] LABS: Glucose, Whole Blood 103 mg/dL (60-115)
[2021-06-08] MEDS: Aspirin Enteric Coated 81 MG TABLET.DR PO (08:44)
[2021-06-08] MEDS: amLODIPine Besylate 10 MG TABLET PO (08:44)
[2021-06-08] MEDS: hydrALAZINE HCl 25 MG TABLET PO ×3 (08:44→22:16)
[2021-06-08] MEDS: Insulin Glargine,Hum.rec.anlog 100 UNIT/ML 10 ML VIAL 40 UNIT SUBCUT ×2 (08:45→22:15)
[2021-06-08] MEDS: Nystatin Cream 15 GM TUBE 1 APPL TOPICAL ×2 (08:47→23:08)
[2021-06-08] MEDS: Sodium Zirconium Cyclosilicate 5 GM POWD.PACK PO (08:47)
--- NOTE | 2021-06-08 11:17 | P.PNNP_ITS ---
Subjective Subjective Date of Service: 06/08/21 Interval history: Events noted. All recent data reviewed Physical Exam Vital Signs: Vital Signs: Last Vital Signs Temp 98.8 F 06/08/21 08:00 Pulse 67 06/08/21 08:00 Resp 18 06/08/21 08:00 BP 125/58 L 06/08/21 08:00 Pulse Ox 95 06/08/21 08:00 Body Mass Index 66.6 Const: General: no acute distress Eyes: EOM: EOMs intact bilaterally Neck: Neck: Yes supple Resp: Auscultation: diminished lung sounds Cardio: Rate: regular rate GI: Palpation (GI): Soft to palpation Neuro: General: moves all extremities Objective Data Labs CBC & Chem 7: 06/04/21 05:55 06/08/21 04:37 Labs: Laboratory Results - last 24 hr 06/07/21 06/07/21 06/07/21 11:17 16:23 20:37 Sodium Potassium Chloride Carbon Dioxide Anion Gap BUN Creatinine Estim Creat Clear Calc Estimated GFR POC Glucose 156 H 218 H 175 H Random Glucose Calcium 06/08/21 06/08/21 04:37 07:15 Sodium 137 Potassium 4.3 Chloride 107 Carbon Dioxide 22 Anion Gap 12 BUN 49 H Creatinine 3.02 H Estim Creat Clear Calc 33.7 Estimated GFR 16 POC Glucose 103 Random Glucose 107 Calcium 7.5 L Microbiology Microbiology Results: Microbiology 06/01/21 00:43 Blood - Venous Blood Culture - Final No growth after 5 days. 06/01/21 00:43 Blood - Venous Blood Culture - Final No growth after 5 days. 05/31/21 22:45 Urine clean catch - Urine rubin top Urine Culture - Final Procedures Date of Service Date of Service: 06/08/21 Assessment & Plan Assessment and plan (1) Acute kidney injury superimposed on chronic kidney disease: Status: Acute Assessment and Plan: Scr up due to tubular injury advanced CKD due to DM/HTN baseline Scr 2-2.5 mg/dl elevated serum potassium due to: -compromised distal flow -low renin aldosterone state (heparin can also cause type IV RTA) known heart failure with preserved function Euvolemic now; Hold torsemide If serum creatinine goes up, shall consider bolus of fluid tomorrow continue sodium zirconium 5 grams daily low potassium diet; Labs AM Time Spent With Patient Time: Total time spent is greater than 50% in coordination of care (as docume nted) at patient's floor/unit and/or counseling patient: Progress Note: Quality Stroke Does the patient have a stroke diagnosis?: No
[2021-06-08 11:23] LABS: Glucose, Whole Blood 141 mg/dL (60-115)
--- NOTE | 2021-06-08 12:53 | HO.PM.IMPN ---
Subjective Subjective Date of Service: 06/08/21 Interval History: Patient being followed for intractable nausea vomiting and acute congestive heart failure, nausea, vomiting completely resolved, complaining of lower back pain, no other acute issues overnight . Review of Systems General no headache, no dizziness no fever chills.? CVS no chest pain, no palpitation.? Respiratory no cough, no sob.? Gastrointestinal? no nausea, no vomiting, no abdominal pain Musculoskeletal? lower back pain Physical Exam Vital Signs: Vital Signs: Last Vital Signs Temp 98.4 F 06/08/21 11:44 Pulse 68 06/08/21 11:44 Resp 20 06/08/21 11:44 BP 128/60 06/08/21 11:44 Pulse Ox 96 06/08/21 11:44 Body Mass Index 66.6 General: AxO X3, m orbidly obese, no acute distress Nec k no JVD Resp:? CT A bilateral, no ac cessory muscles us ed CVS: S1,S2,RRR GI: soft,?nontende r, obese,?bowel so unds audible wound Neuro:? motor pia ssly intact, alert Extremities no?pi tting edema Psych: appropriate affec t, appropriate ins ight? Objective Data Active Medications Amlodipine Besylate (Amlodipine Besylate 10 Mg Tablet) 10 mg PO DAILY [facility]; Protocol Last Admin: 06/08/21 08:44 Dose: 10 mg Documented by: YAIMA Aspirin (Aspirin Enteric Coated 81 Mg Tablet.) 81 mg PO DAILY [facility] Last Admin: 06/08/21 08:44 Dose: 81 mg Documented by: YAIMA Docusate Sodium (Docusate Sodium 100 Mg Capsule) 200 mg PO BEDTIME [facility] Last Admin: 06/07/21 21:40 Dose: Not Given Documented by: VIOLETTA Non-Admin Reason: Patient Refused Heparin Sodium (Porcine) (Heparin Sodium,Porcine 5,000 Unit/Ml Vial) 5,000 unit SUBCUT Q8H [facility] Last Admin: 06/08/21 08:46 Dose: 5,000 unit Documented by: YAIMA Hydralazine HCl (Hydralazine Hcl 25 Mg Tablet) 25 mg PO TID [facility]; Protocol Last Admin: 06/08/21 08:44 Dose: 25 mg Documented by: YAIMA Insulin Glargine (Insulin Glargine,Hum.Rec.Anlog 100 Unit/Ml 10 Ml Vial) 40 unit SUBCUT BID [facility] Last Admin: 06/08/21 08:45 Dose: 40 unit Documented by: YAIMA Insulin Human Lispro (Insulin Lispro 100 Unit/Ml 3 Ml Vial) 0 unit SUBCUT QIDACHS [facility]; Protocol Last Admin: 06/08/21 11:49 Dose: Not Given Documented by: KELLIE Non-Admin Reason: No Insulin Coverage Nitroglycerin (Nitroglycerin 0.4 Mg Tab.Subl) 0.4 mg SUBLINGUAL Q5MX3 PRN PRN Reason: Chest Pain Last Admin: 06/01/21 20:24 Dose: 0.4 mg Documented by: GREG Non-Formulary Medication (Calcifediol [Rayaldee]) 1 cap PO DAILY [facility] Nystatin (Nystatin Cream 15 Gm Tube) 1 appl TOPICAL BID [facility]; Protocol Last Admin: 06/08/21 08:47 Dose: 1 appl Documented by: YAIMA Omeprazole (Omeprazole 20 Mg Capsule.Dr) 20 mg PO DAILY@0630 [facility] Last Admin: 06/08/21 06:30 Dose: 20 mg Documented by: VIOLETTA Ondansetron HCl (Ondansetron Odt 4 Mg Tab.Rapdis) 4 mg TRANSLINGU TIDAC [facility] Last Admin: 06/08/21 12:14 Dose: Not Given Documented by: KELLIE Non-Admin Reason: Patient Refused Oxybutynin Chloride (Oxybutynin Chloride Er 5 Mg Tab.Er.24) 5 mg PO DAILY [facility] Last Admin: 06/08/21 08:44 Dose: 5 mg Documented by: YAIMA Polyethylene Glycol (Polyethylene Glycol 3350 17 Gm Powd.Pack) 17 gm PO DAILY [facility] Last Admin: 06/08/21 08:47 Dose: Not Given Documented by: YAIMA Non-Admin Reason: Patient Refused Ropinirole HCl (Ropinirole Hcl 0.5 Mg Tablet) 0.5 mg PO BEDTIME [facility] Last Admin: 06/07/21 21:43 Dose: 0.5 mg Documented by: VIOLETTA Sodium Chloride (0.9 % Sodium Chloride Flush 3 Ml Syringe) 3 ml IVFLUSH QSHIFT [facility] Last Admin: 06/08/21 08:46 Dose: 3 ml Documented by: YAIMA Sodium Zirconium Cyclosilicate (Sodium Zirconium Cyclosilicate 5 Gm Powd.Pack) 5 gm PO DAILY [facility] Last Admin: 06/08/21 08:47 Dose: 5 gm Documented by: YAIMA Labs CBC & Chem 7: 06/04/21 05:55 06/08/21 04:37 Labs: Laboratory Results - last 24 hr 06/07/21 06/07/21 06/08/21 16:23 20:37 04:37 Anion Gap 12 Estim Creat Clear Calc 33.7 Estimated GFR 16 POC Glucose 218 H 175 H Random Glucose 107 Calcium 7.5 L 06/08/21 06/08/21 07:15 11:05 Anion Gap Estim Creat Clear Calc Estimated GFR POC Glucose 103 141 H Random Glucose Calcium Assessment and Plan (1) Acute kidney injury superimposed on chronic kidney disease: Status: Acute (2) Anemia: Status: Acute (3) Hyperkalemia: Status: Acute (4) Heart failure with preserved ejection fraction: Status: Acute (5) Acute on chronic diastolic (congestive) heart failure: Status: Acute (6) Morbid obesity: Status: Acute (7) Hypothyroidism: Status: Acute (8) Essential hypertension: Status: Acute (9) Type 2 diabetes mellitus with obesity: Status: Acute Assessment and Plan: 60F presented with inability to get out of bed and sob and dysuria acute on chronic diastoliic chf Resolved currently patient euvolemic, Will hold torsemide 40 mg b.i.d. due to worsening renal failure had recent echo in december 2020, but showed stable EF 60-65%, no evidence of regional wall motion abnormality grade 1 mild diastolic dysfunction nasuea and vomitting Nausea vomiting resolved will change Zofran to as needed t.i.d. before meals small bowel follow-through showed delayed small bowel transit otherwise no other abnormality status post extensive workup including CT abdomen and pelvis that showed no abnormality,? status post upper endoscopy 08/18 that was fairly unremarkable ,normal nuclear medicine gastric emptying study after that, on chronic PPI. Dose of oxybutynin reduced due to concern for nausea If nausea reoccurs then will discuss with PCP to DC requip, EKG showed no QTC prolongation Acute on CKD IV due to diabetes and hypertension Baseline creatinine 2-2.5 , creatinine bumped to 3 , likely due to over diuresis, will hold torsemide follow renal function Constipation Resolved, continue? MiraLax and Colace morbid obesity complicated by inability to ambulate TSH normal Recommend binder for panus while ambulating, Recommend outpatient follow-up with bariatric surgery PT recommending STR at SNF to improve bed mobility and hopefully ability to stand, social work therapist arranging for rehab bed hyperkalemia Potassium improved Being followed by Nephrology they feel hyperkalemia Due to compromised distal flow, low renin aldosterone state continue sodium zirconium 5 grams daily,low potassium diet follow kidney function and electrolytes htn Blood pressure stable continue amlodipine and hydralazine 25 t.i.d., monitor bp, was on losartan discontinued by outpatient Nephrology, avoid hypotension DM Blood sugars stable basal bolus insulin, monitor poc dvt prophylaxis - heparin sq Quality Stroke Does the patient have a stroke diagnosis?: No VTE Prior VTE?: No VTE Risk Level:: Medical - moderate - high VTE Device Contraindication: Treatment Not Indicated VTE Drug Contraindication: N/A - Med Ordered
--- NOTE | 2021-06-08 14:36 | PC.NURSE ---
Pt appears comfortable at this time. No concerns at this time by patient or this RN.
[2021-06-08 16:10] LABS: Glucose, Whole Blood 151 mg/dL (60-115)
[2021-06-08] MEDS: Insulin Lispro 100 UNIT/ML 3 ML VIAL SUBCUT ×2 (17:00→22:15)
[2021-06-08 20:00] LABS: Glucose, Whole Blood 181 mg/dL (60-115)
[2021-06-08] MEDS: rOPINIRole HCL 0.5 MG TABLET PO (22:13)
[2021-06-09] VITALS (10 sets, daily range): BP systolic 123–157; BP diastolic 52–76; PULSE 67–77; RESP 18–26; TEMP 36.7–37.5; O2SAT 93–97
[2021-06-09] MEDS: 0.9 % Sodium Chloride Flush 3 ML SYRINGE IVFLUSH ×2 (02:27→16:38)
--- NOTE | 2021-06-09 04:32 | PC.NURSE ---
pt stated she needed to have a bowel movement and wanted to use commode. Effort was made to get patient OOB to transfer to bedside commode with two nurses aid and myself. Pt became dizzy while sitting on the side of the bed, due to her weight and limited mobility on top of dizziness it was decided to get her back in bed. She attempted to use bed mathis but did not tolerate. Will continue to reassess situation.
[2021-06-09] MEDS: Omeprazole 20 MG CAPSULE.DR PO (06:33)
[2021-06-09 06:56] LABS: Anion Gap 13 (12-20); Blood Urea Nitrogen 50 mg/dL (9-16); Calcium 7.8 mg/dL (8.4-10.2); Carbon Dioxide 22 mmol/L (22-29); Chloride 109 mmol/L (96-108); Creatinine Clr Calc Pharmacy 35.4; Estimated Glomerular Filt Rate 17; Glucose Random 109 mg/dL (60-115); Potassium 4.5 mmol/L (3.3-5.1); Sodium 139 mmol/L (135-145)
[2021-06-09 07:18] LABS: Glucose, Whole Blood 124 mg/dL (60-115)
[2021-06-09] MEDS: polyethylene glycoL 3350 17 GM POWD.PACK PO (08:32)
[2021-06-09] MEDS: Sodium Zirconium Cyclosilicate 5 GM POWD.PACK PO (08:32)
[2021-06-09] MEDS: Aspirin Enteric Coated 81 MG TABLET.DR PO (08:32)
[2021-06-09] MEDS: amLODIPine Besylate 10 MG TABLET PO (08:32)
[2021-06-09] MEDS: Insulin Glargine,Hum.rec.anlog 100 UNIT/ML 10 ML VIAL 40 UNIT SUBCUT ×2 (08:33→21:20)
[2021-06-09] MEDS: hydrALAZINE HCl 25 MG TABLET PO ×3 (08:33→21:19)
[2021-06-09] MEDS: Heparin Sodium,Porcine 5,000 UNIT/ML VIAL 5000 UNIT SUBCUT (08:34)
[2021-06-09] MEDS: Nystatin Cream 15 GM TUBE 1 APPL TOPICAL (08:34)
[2021-06-09 11:08] LABS: Glucose, Whole Blood 121 mg/dL (60-115)
--- NOTE | 2021-06-09 12:26 | P.PNIM_ITS ---
Subjective Subjective Date of Service: 06/09/21 Interval History: Patient being followed for intractable nausea vomiting and acute congestive heart failure, nausea, vomiting completely resolved, complaining of constipation this morning, no abdominal pain, no acute issues overnight . Review of Systems General no headache, no dizziness, no fever chills.? CVS no chest pain, no palpitation.? Respiratory no cough, no sob.? Gastrointestinal? no nausea, no vomiting, no abdominal pain, positive constipation Review of Systems: Yes all other systems are reviewed and are negative Physical Exam Vital Signs: Vital Signs: Last Vital Signs Temp 98.9 F 06/09/21 10:56 Pulse 72 06/09/21 10:56 Resp 18 06/09/21 10:56 BP 133/59 L 06/09/21 10:56 Pulse Ox 95 06/09/21 10:56 Body Mass Index 66.6 General: AxOX3, morbidly obese, noacute distress Neck no JVD Resp:? CTA bilateral, no accessory muscles use CVS: S1,S2,RRR GI: soft,?nontender, obese,?bowel sounds audible Neuro:? motor grossly intact, alert, awake Extremities no?pitting edema Psych:?appropriate affect, appropriate insight? Objective Data Active Medications Amlodipine Besylate (Amlodipine Besylate 10 Mg Tablet) 10 mg PO DAILY [facility]; Protocol Last Admin: 06/09/21 08:32 Dose: 10 mg Documented by: REBECA Aspirin (Aspirin Enteric Coated 81 Mg Tablet.) 81 mg PO DAILY [facility] Last Admin: 06/09/21 08:32 Dose: 81 mg Documented by: REBECA Docusate Sodium (Docusate Sodium 100 Mg Capsule) 200 mg PO BEDTIME [facility] Last Admin: 06/08/21 22:16 Dose: Not Given Documented by: VIOLETTA Non-Admin Reason: Patient Refused Heparin Sodium (Porcine) (Heparin Sodium,Porcine 5,000 Unit/Ml Vial) 5,000 unit SUBCUT Q8H [facility] Last Admin: 06/09/21 08:34 Dose: 5,000 unit Documented by: REBECA Hydralazine HCl (Hydralazine Hcl 25 Mg Tablet) 25 mg PO TID [facility]; Protocol Last Admin: 06/09/21 08:33 Dose: 25 mg Documented by: REBECA Insulin Glargine (Insulin Glargine,Hum.Rec.Anlog 100 Unit/Ml 10 Ml Vial) 40 unit SUBCUT BID [facility] Last Admin: 06/09/21 08:33 Dose: 40 unit Documented by: REBECA Insulin Human Lispro (Insulin Lispro 100 Unit/Ml 3 Ml Vial) 0 unit SUBCUT QIDACHS [facility]; Protocol Last Admin: 06/09/21 11:15 Dose: Not Given Documented by: REBECA Non-Admin Reason: No Insulin Coverage Nitroglycerin (Nitroglycerin 0.4 Mg Tab.Subl) 0.4 mg SUBLINGUAL Q5MX3 PRN PRN Reason: Chest Pain Last Admin: 06/01/21 20:24 Dose: 0.4 mg Documented by: GREG Non-Formulary Medication (Calcifediol [Rayaldee]) 1 cap PO DAILY [facility] Nystatin (Nystatin Cream 15 Gm Tube) 1 appl TOPICAL BID [facility]; Protocol Last Admin: 06/09/21 08:34 Dose: 1 appl Documented by: REBECA Omeprazole (Omeprazole 20 Mg Capsule.Dr) 20 mg PO DAILY@0630 [facility] Last Admin: 06/09/21 06:33 Dose: 20 mg Documented by: VIOLETTA Ondansetron HCl (Ondansetron Odt 4 Mg Tab.Rapdis) 4 mg TRANSLINGU TIDAC PRN PRN Reason: nausea Oxybutynin Chloride (Oxybutynin Chloride Er 5 Mg Tab.Er.24) 5 mg PO DAILY [facility] Last Admin: 06/09/21 08:33 Dose: 5 mg Documented by: REBECA Polyethylene Glycol (Polyethylene Glycol 3350 17 Gm Powd.Pack) 17 gm PO DAILY [facility] Last Admin: 06/09/21 08:32 Dose: 17 gm Documented by: REBECA Ropinirole HCl (Ropinirole Hcl 0.5 Mg Tablet) 0.5 mg PO BEDTIME [facility] Last Admin: 06/08/21 22:13 Dose: 0.5 mg Documented by: VIOLETTA Sodium Chloride (0.9 % Sodium Chloride Flush 3 Ml Syringe) 3 ml IVFLUSH QSHIFT [facility] Last Admin: 06/09/21 08:03 Dose: Not Given Documented by: REBECA Non-Admin Reason: IV Running Sodium Zirconium Cyclosilicate (Sodium Zirconium Cyclosilicate 5 Gm Powd.Pack) 5 gm PO DAILY [facility] Last Admin: 06/09/21 08:32 Dose: 5 gm Documented by: REBECA Labs CBC & Chem 7: 06/04/21 05:55 06/09/21 06:26 Labs: Laboratory Results - last 24 hr 06/08/21 06/08/21 06/09/21 16:04 19:56 06:26 Anion Gap 13 Estim Creat Clear Calc 35.4 Estimated GFR 17 POC Glucose 151 H 181 H Random Glucose 109 Calcium 7.8 L 06/09/21 06/09/21 07:09 10:54 Anion Gap Estim Creat Clear Calc Estimated GFR POC Glucose 124 H 121 H Random Glucose Calcium Assessment and Plan (1) Acute kidney injury superimposed on chronic kidney disease: Status: Acute (2) Anemia: Status: Acute (3) Heart failure with preserved ejection fraction: Status: Acute (4) Acute on chronic diastolic (congestive) heart failure: Status: Acute (5) Morbid obesity: Status: Acute (6) Hypothyroidism: Status: Acute (7) Essential hypertension: Status: Acute (8) CKD (chronic kidney disease) stage 4, GFR 15-29 ml/min: Status: Acute (9) Type 2 diabetes mellitus with obesity: Status: Acute Assessment and Plan: 60F presented with inability to get out of bed and sob and dysuria acute on chronic diastoliic chf Resolved currently patient euvolemic, Will continue to hold torsemide 40 mg b.i.d. had recent echo in december 2020, it showed stable EF 60-65%, no evidence of regional wall motion abnormality grade 1 mild diastolic dysfunction nasuea and vomitting Nausea vomiting resolved on Zofran as needed t.i.d. before meals small bowel follow-through showed delayed small bowel transit otherwise no other abnormality status post extensive workup including CT abdomen and pelvis that showed no abnormality,? status post upper endoscopy 08/18 that was fairly unremarkable ,normal nuclear medicine gastric emptying study after that, on chronic PPI. Dose of oxybutynin reduced due to concern for nausea If nausea reoccurs then will discuss with PCP to DC requip, EKG showed no QTC prolongation Acute on CKD IV due to diabetes and hypertension Baseline creatinine 2-2.5 , creatinine bumped to 3 and now gradually trending do wn, likely due to over diuresis, continue to hold torsemide follow renal function Constipation No bowel movement in last few days,continue? MiraLax and Colace,will give lactulose morbid obesity complicated by inability to ambulate TSH normal Recommend binder for panus while ambulating, Recommend outpatient follow-up with bariatric surgery PT recommending STR at SNF to improve bed mobility and hopefully ability to stand, licensed master social worker arranging for rehab bed hyperkalemia Potassium improved Being followed by Nephrology they feel hyperkalemia Due to compromised distal flow, low renin aldosterone state continue sodium zirconium 5 grams daily,low potassium diet follow kidney function and electrolytes htn Blood pressure stable continue amlodipine and hydralazine 25 t.i.d., monitor bp, was on losartan discontinued by outpatient Nephrology, avoid hypotension DM Blood sugars stable basal bolus insulin, monitor poc dvt prophylaxis - heparin sq Quality Stroke Does the patient have a stroke diagnosis?: No VTE Prior VTE?: No VTE Risk Level:: Medical - moderate - high VTE Device Contraindication: Treatment Not Indicated VTE Drug Contraindication: N/A - Med Ordered
--- NOTE | 2021-06-09 13:48 | PM.PNNEP ---
Subjective Subjective Date of Service: 06/09/21 Interval history: nausea, vomiting completely resolved, no acute issues overnight . Physical Exam Vital Signs: Vital Signs: Last Vital Signs Temp 98.9 F 06/09/21 10:56 Pulse 72 06/09/21 10:56 Resp 18 06/09/21 10:56 BP 133/59 L 06/09/21 10:56 Pulse Ox 95 06/09/21 10:56 Body Mass Index 66.6 Const: General: no acute distress Eyes: EOM: EOMs intact bilaterally Neck: Neck: Yes supple Resp: Auscultation: diminished lung sounds Cardio: Rate: regular rate GI: Palpation (GI): Soft to palpation Neuro: General: moves all extremities Objective Data Labs CBC & Chem 7: 06/04/21 05:55 06/09/21 06:26 Labs: Laboratory Results - last 24 hr 06/08/21 06/08/21 06/09/21 16:04 19:56 06:26 Sodium 139 Potassium 4.5 Chloride 109 H Carbon Dioxide 22 Anion Gap 13 BUN 50 H Creatinine 2.87 H Estim Creat Clear Calc 35.4 Estimated GFR 17 POC Glucose 151 H 181 H Random Glucose 109 Calcium 7.8 L 06/09/21 06/09/21 07:09 10:54 Sodium Potassium Chloride Carbon Dioxide Anion Gap BUN Creatinine Estim Creat Clear Calc Estimated GFR POC Glucose 124 H 121 H Random Glucose Calcium Microbiology Microbiology Results: Microbiology 06/01/21 00:43 Blood - Venous Blood Culture - Final No growth after 5 days. 06/01/21 00:43 Blood - Venous Blood Culture - Final No growth after 5 days. 05/31/21 22:45 Urine clean catch - Urine rubin top Urine Culture - Final Procedures Date of Service Date of Service: 06/09/21 Assessment & Plan Assessment and plan (1) Acute kidney injury superimposed on chronic kidney disease: Status: Acute Assessment and Plan: RASHEEDA due to tubular injury- improving Diuretics currently on hold advanced CKD due to DM/HTN baseline Scr 2-2.5 mg/dl Euvolemic now; Hold torsemide Labs AM. Shall follow up Time Spent With Patient Time: Total time spent is greater than 50% in coordination of care (as documented) at patient's floor/unit and/or counseling patient: Progress Note: Quality Stroke Does the patient have a stroke diagnosis?: No
[2021-06-09] MEDS: Lactulose 20 GM/30 ML SOLUTION PO (14:32)
[2021-06-09 16:29] LABS: Glucose, Whole Blood 137 mg/dL (60-115)
[2021-06-09 20:40] LABS: Glucose, Whole Blood 158 mg/dL (60-115)
[2021-06-09] MEDS: Insulin Lispro 100 UNIT/ML 3 ML VIAL SUBCUT (21:20)
[2021-06-09] MEDS: rOPINIRole HCL 0.5 MG TABLET PO (21:20)
[2021-06-10] VITALS (8 sets, daily range): BP systolic 108–154; BP diastolic 45–63; PULSE 65–73; RESP 20; TEMP 36.6–37.4; O2SAT 94–97
[2021-06-10] MEDS: Heparin Sodium,Porcine 5,000 UNIT/ML VIAL 5000 UNIT SUBCUT ×3 (01:04→16:35)
[2021-06-10] MEDS: 0.9 % Sodium Chloride Flush 3 ML SYRINGE IVFLUSH ×3 (01:04→16:35)
[2021-06-10] MEDS: Ondansetron ODT 4 MG TAB.RAPDIS TRANSLINGU (01:10)
[2021-06-10] MEDS: Omeprazole 20 MG CAPSULE.DR PO (06:13)
[2021-06-10 07:19] LABS: Glucose, Whole Blood 122 mg/dL (60-115)
[2021-06-10] MEDS: Aspirin Enteric Coated 81 MG TABLET.DR PO (09:53)
[2021-06-10] MEDS: Sodium Zirconium Cyclosilicate 5 GM POWD.PACK PO (09:54)
[2021-06-10] MEDS: hydrALAZINE HCl 25 MG TABLET PO ×3 (09:54→21:01)
[2021-06-10] MEDS: amLODIPine Besylate 10 MG TABLET PO (09:54)
[2021-06-10] MEDS: Insulin Glargine,Hum.rec.anlog 100 UNIT/ML 10 ML VIAL 40 UNIT SUBCUT ×2 (09:54→21:01)
[2021-06-10] MEDS: Nystatin Cream 15 GM TUBE 1 APPL TOPICAL ×2 (09:56→21:09)
[2021-06-10 10:58] LABS: Glucose, Whole Blood 154 mg/dL (60-115)
--- NOTE | 2021-06-10 12:00 | MHC.CM.PN ---
Per ROUNDS discussion, CM has updated SNF referrals and awaits responses regarding today's SNF bed availability. CM will follow,
--- NOTE | 2021-06-10 12:22 | MHC.CM.PN ---
CM has updated the many SNF referrals that have been made and no bed availability/acceptances as of yet. is aware and CINDY will follow.
--- NOTE | 2021-06-10 14:56 | P.PNIM_ITS ---
Subjective Subjective Date of Service: 06/10/21 Interval History: Patient being followed for intractable nausea vomiting and acute congestive heart failure, nausea, vomiting and CHF completely resolved, had large bowel movement overnight, no other acute issues overnight. Review of Systems General no headache, no dizziness, no fever chills.? CVS no chest pain, no palpitation.? Respiratory no cough, no sob.? Gastrointestinal? no nausea, no vomiting, no abdominal pain Review of Systems: Yes all other systems are reviewed and are negative Physical Exam Vital Signs: Vital Signs: Last Vital Signs Temp 99.4 F 06/10/21 11:15 Pulse 65 06/10/21 11:15 Resp 20 06/10/21 11:15 BP 110/56 L 06/10/21 11:15 Pulse Ox 96 06/10/21 11:15 Body Mass Index 66.6 General: AxOX3, mo rbidly obese, no a cute distress Resp :? CTA bilateral, no accessory muscl es use CVS: S1,S2, RRR GI: soft,?nont khai, obese,?tod l sounds audible N euro:? motor gross ly intact, alert, awake Extremities no?pitting edema P sych:?appropriate affect, appropriat e insight? Objective Data Active Medications Amlodipine Besylate (Amlodipine Besylate 10 Mg Tablet) 10 mg PO DAILY [facility]; Protocol Last Admin: 06/10/21 09:54 Dose: 10 mg Documented by: MEGGAN Aspirin (Aspirin Enteric Coated 81 Mg Tablet.) 81 mg PO DAILY [facility] Last Admin: 06/10/21 09:53 Dose: 81 mg Documented by: MEGGAN Docusate Sodium (Docusate Sodium 100 Mg Capsule) 200 mg PO BEDTIME [facility] Last Admin: 06/09/21 22:09 Dose: Not Given Documented by: HORTENSIA Non-Admin Reason: See Note Heparin Sodium (Porcine) (Heparin Sodium,Porcine 5,000 Unit/Ml Vial) 5,000 unit SUBCUT Q8H [facility] Last Admin: 06/10/21 09:54 Dose: 5,000 unit Documented by: MEGGAN Hydralazine HCl (Hydralazine Hcl 25 Mg Tablet) 25 mg PO TID [facility]; Protocol Last Admin: 06/10/21 09:54 Dose: 25 mg Documented by: MEGGAN Insulin Glargine (Insulin Glargine,Hum.Rec.Anlog 100 Unit/Ml 10 Ml Vial) 40 unit SUBCUT BID [facility] Last Admin: 06/10/21 09:54 Dose: 40 unit Documented by: MEGGAN Insulin Human Lispro (Insulin Lispro 100 Unit/Ml 3 Ml Vial) 0 unit SUBCUT QIDACHS [facility]; Protocol Last Admin: 06/10/21 13:24 Dose: Not Given Documented by: MEGGAN Non-Admin Reason: No Insulin Coverage Nitroglycerin (Nitroglycerin 0.4 Mg Tab.Subl) 0.4 mg SUBLINGUAL Q5MX3 PRN PRN Reason: Chest Pain Last Admin: 06/01/21 20:24 Dose: 0.4 mg Documented by: GREG Nystatin (Nystatin Cream 15 Gm Tube) 1 appl TOPICAL BID [facility]; Protocol Last Admin: 06/10/21 09:56 Dose: 1 appl Documented by: MEGGAN Omeprazole (Omeprazole 20 Mg Capsule.Dr) 20 mg PO DAILY@0630 [facility] Last Admin: 06/10/21 06:13 Dose: 20 mg Documented by: ASHLEIGH Ondansetron HCl (Ondansetron Odt 4 Mg Tab.Rapdis) 4 mg TRANSLINGU TIDAC PRN PRN Reason: nausea Last Admin: 06/10/21 01:10 Dose: 4 mg Documented by: ASHLEIGH Oxybutynin Chloride (Oxybutynin Chloride Er 5 Mg Tab.Er.24) 5 mg PO DAILY [facility] Last Admin: 06/10/21 09:53 Dose: 5 mg Documented by: MEGGAN Polyethylene Glycol (Polyethylene Glycol 3350 17 Gm Powd.Pack) 17 gm PO DAILY [facility] Last Admin: 06/10/21 10:09 Dose: Not Given Documented by: MEGGAN Non-Admin Reason: +BM last night Ropinirole HCl (Ropinirole Hcl 0.5 Mg Tablet) 0.5 mg PO BEDTIME [facility] Last Admin: 06/09/21 21:20 Dose: 0.5 mg Documented by: HORTENSIA Sodium Chloride (0.9 % Sodium Chloride Flush 3 Ml Syringe) 3 ml IVFLUSH QSHIFT [facility] Last Admin: 06/10/21 09:53 Dose: 3 ml Documented by: MEGGAN Sodium Zirconium Cyclosilicate (Sodium Zirconium Cyclosilicate 5 Gm Powd.Pack) 5 gm PO DAILY [facility] Last Admin: 06/10/21 09:54 Dose: 5 gm Documented by: MEGGAN Labs CBC & Chem 7: 06/04/21 05:55 06/09/21 06:26 Labs: Laboratory Results - last 24 hr 05/31/21 06/01/21 06/02/21 22:27 06:45 03:20 Creatinine 2.16 H 2.14 H 2.23 H POC Glucose 06/02/21 06/03/21 06/04/21 06:18 05:42 05:55 Creatinine 2.23 H 2.66 H 2.64 H POC Glucose 06/05/21 06/06/21 06/07/21 05:38 05:53 06:19 Creatinine 2.92 H 2.88 H 2.95 H POC Glucose 06/08/21 06/09/21 06/09/21 04:37 06:26 16:05 Creatinine 3.02 H 2.87 H POC Glucose 137 H 06/09/21 06/10/21 06/10/21 20:35 07:15 10:52 Creatinine POC Glucose 158 H 122 H 154 H Assessment and Plan (1) Acute kidney injury superimposed on chronic kidney disease: Status: Acute (2) Anemia: Status: Acute (3) Heart failure with preserved ejection fraction: Status: Acute (4) Acute on chronic diastolic (congestive) heart failure: Status: Acute (5) Morbid obesity: Status: Acute (6) Hypothyroidism: Status: Acute (7) Essential hypertension: Status: Acute (8) CKD (chronic kidney disease) stage 4, GFR 15-29 ml/min: Status: Acute Assessment and Plan: 60F presented with inability to get out of bed and sob and dysuria acute on chronic diastoliic chf Resolved currently patient euvolemic, Will continue to hold torsemide 40 mg b.i.d. had recent echo in december 2020, it showed stable EF 60-65%, no evidence of regional wall motion abnormality grade 1 mild diastolic dysfunction At baseline patient was on a torsemide 100 mg b.i.d. will discuss with Nephrology regarding resuming torsemide add low-dose. nasuea and vomitting Nausea vomiting resolved on Zofran as needed t.i.d. before meals small bowel follow-through showed delayed small bowel transit otherwise no other abnormality status post extensive workup including CT abdomen and pelvis that showed no abnormality,? status post upper endoscopy 08/18 that was fairly unremarkable ,normal nuclear medicine gastric emptying study after that, on chronic PPI. Dose of oxybutynin reduced due to concern for nausea If nausea reoccurs then will discuss with PCP to DC requip, EKG showed no QTC prolongation Acute on CKD IV due to diabetes and hypertension Baseline creatinine 2-2.5 , creatinine bumped to 3 and now gradually trending down, to 2.8, likely due to over diuresis, continue to hold torsemide follow renal function Constipation Resolved,continue? MiraLax and Colace morbid obesity complicated by inability to ambulate TSH normal Recommend binder for panus while ambulating, Recommend outpatient follow-up with bariatric surgery PT recommending STR at SNF to improve bed mobility and hopefully ability to stand, social staff worker arranging for rehab bed hyperkalemia Potassium improved Being followed by Nephrology they feel hyperkalemia Due to compromised distal flow, low renin aldosterone state continue sodium zirconium 5 grams daily,low potassium diet follow kidney function and electrolytes htn Blood pressure stable continue amlodipine and hydralazine 25 t.i.d., monitor bp, was on losartan discontinued by outpatient Nephrology, avoid hypotension DM Blood sugars stable basal bolus insulin, monitor poc dvt prophylaxis - heparin sq Quality Stroke Does the patient have a stroke diagnosis?: No VTE Prior VTE?: No VTE Risk Level:: Medical - moderate - high VTE Device Contraindication: Treatment Not Indicated VTE Drug Contraindication: N/A - Med Ordered
[2021-06-10 16:06] LABS: Glucose, Whole Blood 148 mg/dL (60-115)
--- NOTE | 2021-06-10 19:34 | PM.PNNEP ---
Subjective Subjective Date of Service: 06/10/21 Principal diagnosis: SOB, RASHEEDA on CKD Interval history: Seen and exmaned, events noted Physical Exam Vital Signs: Vital Signs: Last Vital Signs Temp 97.8 F 06/10/21 18:48 Pulse 71 06/10/21 18:48 Resp 20 06/10/21 18:48 BP 131/45 L 06/10/21 18:48 Pulse Ox 97 06/10/21 18:48 Body Mass Index 66.6 Const: General: no acute distress HENMT: Head: Yes normocephalic and Yes atraumatic Eyes: EOM: EOMs intact bilaterally Neck: Neck: Yes supple Resp: Auscultation: diminished lung sounds Cardio: Rate: regular rate Heart sounds: S1 normal heart sound present and S2 normal heart sound present GI: Palpation (GI): Soft to palpation and no guarding Neuro: General: moves all extremities Extrem: General: Yes edema and Yes pedal edema Objective Data Labs CBC & Chem 7: 06/04/21 05:55 06/09/21 06:26 Labs: Laboratory Results - last 24 hr 06/09/21 06/10/21 06/10/21 20:35 07:15 10:52 POC Glucose 158 H 122 H 154 H 06/10/21 16:00 POC Glucose 148 H Microbiology Microbiology Results: Microbiology 06/01/21 00:43 Blood - Venous Blood Culture - Final No growth after 5 days. 06/01/21 00:43 Blood - Venous Blood Culture - Final No growth after 5 days. 05/31/21 22:45 Urine clean catch - Urine rubin top Urine Culture - Final Procedures Date of Service Date of Service: 06/10/21 Assessment & Plan Assessment and plan (1) Acute kidney injury superimposed on chronic kidney disease: Start date: 06/10/21 Start time: 19:35 Status: Acute Assessment and Plan: 1. RASHEEDA: multifact ATN with grad renal improvemet 2. CKD 4: bsl Scr 2.0-2.5 c/wDN/HTN renal dis 3. SOB: multifact including Obesity and h/o CHF with the latter ? resolved 4. Anemia 5. Obesity 6. HyperK: reoslved with K binder REC: cont to track UOP/renal func; diuretic holiday but likely will need to r/s soon Will follow with team Time Spent With Patient Time: Total time spent is greater than 50% in coordination of care (as documented) at patient's floor/unit and/or counseling patient: Progress Note: Quality Stroke Does the patient have a stroke diagnosis?: No
[2021-06-10 19:56] LABS: Glucose, Whole Blood 189 mg/dL (60-115)
[2021-06-10] MEDS: Docusate Sodium 100 MG CAPSULE 200 MG PO (21:01)
[2021-06-10] MEDS: Insulin Lispro 100 UNIT/ML 3 ML VIAL SUBCUT (21:01)
[2021-06-10] MEDS: rOPINIRole HCL 0.5 MG TABLET PO (21:01)
[2021-06-11] VITALS (9 sets, daily range): BP systolic 104–149; BP diastolic 49–66; PULSE 64–72; RESP 18–22; TEMP 36.1–37.4; O2SAT 94–97
[2021-06-11] MEDS: Heparin Sodium,Porcine 5,000 UNIT/ML VIAL 5000 UNIT SUBCUT ×3 (00:42→16:37)
[2021-06-11] MEDS: 0.9 % Sodium Chloride Flush 3 ML SYRINGE IVFLUSH ×4 (00:43→22:50)
[2021-06-11] MEDS: Omeprazole 20 MG CAPSULE.DR PO (06:13)
[2021-06-11 07:31] LABS: Glucose, Whole Blood 91 mg/dL (60-115)
--- NOTE | 2021-06-11 10:35 | PM.PNNEP ---
Subjective Subjective Date of Service: 06/11/21 Principal diagnosis: SOB, RASHEEDA on CKD Interval history: Seen and exmaned, events noted Physical Exam Vital Signs: Vital Signs: Last Vital Signs Temp 98 F 06/11/21 07:07 Pulse 64 06/11/21 07:07 Resp 22 H 06/11/21 07:07 BP 123/58 L 06/11/21 07:07 Pulse Ox 95 06/11/21 07:07 Body Mass Index 66.6 Const: General: no acute distress HENMT: Head: Yes normocephalic and Yes atraumatic Eyes: EOM: EOMs intact bilaterally Neck: Neck: Yes supple Resp: Auscultation: diminished lung sounds Cardio: Rate: regular rate Heart sounds: S1 normal heart sound present and S2 normal heart sound present GI: Palpation (GI): Soft to palpation and no guarding Neuro: General: moves all extremities Extrem: General: Yes edema and Yes pedal edema Objective Data Labs CBC & Chem 7: 06/04/21 05:55 06/09/21 06:26 Labs: Laboratory Results - last 24 hr 06/10/21 06/10/21 06/10/21 10:52 16:00 19:48 POC Glucose 154 H 148 H 189 H 06/11/21 07:24 POC Glucose 91 Microbiology Microbiology Results: Microbiology 06/01/21 00:43 Blood - Venous Blood Culture - Final No growth after 5 days. 06/01/21 00:43 Blood - Venous Blood Culture - Final No growth after 5 days. 05/31/21 22:45 Urine clean catch - Urine rubin top Urine Culture - Final Procedures Date of Service Date of Service: 06/11/21 Assessment & Plan Assessment and plan (1) Acute kidney injury superimposed on chronic kidney disease: Status: Acute Assessment and Plan: 1. RASHEEDA: multifact ATN with grad renal improvemet 2. CKD 4: bsl Scr 2.0-2.5 c/wDN/HTN renal dis 3. SOB: multifact including Obesity and h/o CHF with the latter ? resolved 4. Anemia 5. Obesity 6. HyperK: reoslved with K binder REC: cont to track UOP/renal func; diuretic holiday but likely will need to r/s soon--can cont to hold today and reassess tomorrow Will follow with team Time Spent With Patient Time: Total time spent is greater than 50% in coordination of care (as documented) at patient's floor/unit and/or counseling patient: Progress Note: Quality Stroke Does the patient have a stroke diagnosis?: No
[2021-06-11 11:35] LABS: Glucose, Whole Blood 132 mg/dL (60-115)
--- NOTE | 2021-06-11 11:47 | MHC.CM.PN ---
CM met with Patient at bedside to discuss dc planning. Patient agrees that she needs STR because SHE[employer] FOREM[employer] she was able to transfer to a w/c with the assist of her WORKERS COMPENSATION ANALYST only and now is requiring 3 assist. Active SNF search in progress.
--- NOTE | 2021-06-11 12:17 | MHC.CM.PN ---
CM received a call from [facility] RN/Alla @ [phone] (Contracted with patient's insurance); Alla is requesting to be notified of Patient's final dc plan.
[2021-06-11] MEDS: Sodium Zirconium Cyclosilicate 5 GM POWD.PACK PO (12:56)
[2021-06-11] MEDS: Aspirin Enteric Coated 81 MG TABLET.DR PO (12:56)
[2021-06-11] MEDS: Insulin Glargine,Hum.rec.anlog 100 UNIT/ML 10 ML VIAL 40 UNIT SUBCUT ×2 (12:58→22:50)
[2021-06-11] MEDS: hydrALAZINE HCl 25 MG TABLET PO ×3 (13:01→22:50)
[2021-06-11] MEDS: amLODIPine Besylate 10 MG TABLET PO (13:01)
[2021-06-11] MEDS: Nystatin Cream 15 GM TUBE 1 APPL TOPICAL ×2 (13:13→22:51)
--- NOTE | 2021-06-11 13:40 | MHC.CM.PN ---
Per CM Director's request, CM has contacted the [facility] LTC Discharge Support Line at [phone] and left a message, requesting a return call for assistance with dc planning. CINDY will continue to follow.
--- NOTE | 2021-06-11 15:07 | HO.PM.IMPN ---
Subjective Subjective Date of Service: 06/11/21 Interval History: Patient being followed for intractable nausea vomiting and acute congestive heart failure, nausea, vomiting and CHF completely resolved, no other acute issues overnight. Review of Systems General no headache, no dizziness, no fever chills.? CVS no chest pain, no palpitation.? Respiratory no cough, no sob.? Gastrointestinal? no nausea, no vomiting, no abdominal pain Review of Systems: Yes all other systems are reviewed and are negative Physical Exam Vital Signs: Vital Signs: Last Vital Signs Temp 97 F 06/11/21 11:05 Pulse 71 06/11/21 13:01 Resp 18 06/11/21 11:05 BP 104/52 L 06/11/21 13:01 Pulse Ox 95 06/11/21 11:05 Body Mass Index 66.6 General: AxOX3, morbidly obese, no acute distress Neck is supple Resp:? CTA bilateral,no accessory muscles use CVS: S1,S2,RRR GI: soft,?nontender, obese,?bowel sounds audible Neuro:? motor grossly intact, alert,awake Extremities no?pitting edema Psych:?appropriate affect, appropriate insight? Objective Data Active Medications Amlodipine Besylate (Amlodipine Besylate 10 Mg Tablet) 10 mg PO DAILY [facility]; Protocol Last Admin: 06/11/21 13:01 Dose: 10 mg Documented by: AMEENA Aspirin (Aspirin Enteric Coated 81 Mg Tablet.) 81 mg PO DAILY [facility] Last Admin: 06/11/21 12:56 Dose: 81 mg Documented by: AMEENA Docusate Sodium (Docusate Sodium 100 Mg Capsule) 200 mg PO BEDTIME [facility] Last Admin: 06/10/21 21:01 Dose: 200 mg Documented by: KEE Heparin Sodium (Porcine) (Heparin Sodium,Porcine 5,000 Unit/Ml Vial) 5,000 unit SUBCUT Q8H [facility] Last Admin: 06/11/21 12:58 Dose: 5,000 unit Documented by: AMEENA Hydralazine HCl (Hydralazine Hcl 25 Mg Tablet) 25 mg PO TID [facility]; Protocol Last Admin: 06/11/21 13:01 Dose: 25 mg Documented by: AMEENA Insulin Glargine (Insulin Glargine,Hum.Rec.Anlog 100 Unit/Ml 10 Ml Vial) 40 unit SUBCUT BID [facility] Last Admin: 06/11/21 12:58 Dose: 40 unit Documented by: AMEENA Insulin Human Lispro (Insulin Lispro 100 Unit/Ml 3 Ml Vial) 0 unit SUBCUT QIDACHS [facility]; Protocol Last Admin: 06/11/21 12:57 Dose: Not Given Documented by: AMEENA Non-Admin Reason: No Insulin Coverage Nitroglycerin (Nitroglycerin 0.4 Mg Tab.Subl) 0.4 mg SUBLINGUAL Q5MX3 PRN PRN Reason: Chest Pain Last Admin: 06/01/21 20:24 Dose: 0.4 mg Documented by: GREG Nystatin (Nystatin Cream 15 Gm Tube) 1 appl TOPICAL BID [facility]; Protocol Last Admin: 06/11/21 13:13 Dose: 1 appl Documented by: AMEENA Omeprazole (Omeprazole 20 Mg Capsule.Dr) 20 mg PO DAILY@0630 [facility] Last Admin: 06/11/21 06:13 Dose: 20 mg Documented by: ASHLEIGH Ondansetron HCl (Ondansetron Odt 4 Mg Tab.Rapdis) 4 mg TRANSLINGU TIDAC PRN PRN Reason: nausea Last Admin: 06/10/21 01:10 Dose: 4 mg Documented by: ASHLEIGH Oxybutynin Chloride (Oxybutynin Chloride Er 5 Mg Tab.Er.24) 5 mg PO DAILY [facility] Last Admin: 06/11/21 12:56 Dose: 5 mg Documented by: AMEENA Polyethylene Glycol (Polyethylene Glycol 3350 17 Gm Powd.Pack) 17 gm PO DAILY [facility] Last Admin: 06/11/21 13:00 Dose: Not Given Documented by: AMEENA Non-Admin Reason: Patient Refused Ropinirole HCl (Ropinirole Hcl 0.5 Mg Tablet) 0.5 mg PO BEDTIME [facility] Last Admin: 06/10/21 21:01 Dose: 0.5 mg Documented by: KEE Sodium Chloride (0.9 % Sodium Chloride Flush 3 Ml Syringe) 3 ml IVFLUSH QSHIFT [facility] Last Admin: 06/11/21 12:58 Dose: 3 ml Documented by: AMEENA Sodium Zirconium Cyclosilicate (Sodium Zirconium Cyclosilicate 5 Gm Powd.Pack) 5 gm PO DAILY [facility] Last Admin: 06/11/21 12:56 Dose: 5 gm Documented by: AMEENA Labs CBC & Chem 7: 06/04/21 05:55 06/09/21 06:26 Labs: Laboratory Results - last 24 hr 06/10/21 06/10/21 06/11/21 16:00 19:48 07:24 POC Glucose 148 H 189 H 91 06/11/21 11:04 POC Glucose 132 H Assessment and Plan (1) Acute kidney injury superimposed on chronic kidney disease: Status: Acute (2) Anemia: Status: Acute (3) Hyperkalemia: Status: Acute (4) Heart failure with preserved ejection fraction: Status: Acute (5) Morbid obesity: Status: Acute (6) Hypothyroidism: Status: Acute (7) Essential hypertension: Status: Acute Assessment and Plan: 60F presented with inability to get out of bed and sob and dysuria acute on chronic diastoliic chf Resolved currently patient euvolemic, Will continue to hold torsemide was on 100 mg b.i.d. at home had recent echo in december 2020, it showed stable EF 60-65%, no evidence of regional wall motion abnormality grade 1 mild diastolic dysfunction will discuss with Nephrology regarding resuming torsemide low-dose likely 40 mg daily upon discharge nasuea and vomitting Nausea vomiting resolved on Zofran as needed t.i.d. before meals small bowel follow-through showed delayed small bowel transit otherwise no other abnormality status post extensive workup including CT abdomen and pelvis that showed no abnormality,? status post upper endoscopy 08/18 that was fairly unremarkable ,normal nuclear medicine gastric emptying study after that, on chronic PPI. Dose of oxybutynin reduced due to concern for nausea If nausea reoccurs then will discuss with PCP to DC requip, EKG showed no QTC prolongation Acute on CKD IV due to diabetes and hypertension Baseline creatinine 2-2.5 , creatinine bumped to 3 and now gradually trending down, to 2.8, likely due to over diuresis, continue to hold torsemide follow renal function Constipation Resolved,continue? MiraLax and Colace morbid obesity complicated by inability to ambulate TSH normal Recommend binder for panus while ambulating, Recommend outpatient follow-up with bariatric surgery PT recommending STR at SNF to improve bed mobility and hopefully ability to stand, director social service arranging for rehab bed hyperkalemia Potassium improved Being followed by Nephrology they feel hyperkalemia Due to compromised distal flow, low renin aldosterone state continue sodium zirconium 5 grams daily,low potassium diet follow kidney function and electrolytes htn Blood pressure soft this am continue amlodipine and hydralazine 25 t.i.d., monitor bp, was on losartan discontinued by outpatient Nephrology, avoid hypotension, if BP remains low will lower dose of amlodipine to 5 mg DM Blood sugars stable basal bolus insulin, monitor poc dvt prophylaxis - heparin sq Disposition waiting for rehab bed, embedded case manager looking for placement Quality Stroke Does the patient have a stroke diagnosis?: No VTE Prior VTE?: No VTE Risk Level:: Medical - moderate - high VTE Device Contraindication: Treatment Not Indicated VTE Drug Contraindication: N/A - Med Ordered
[2021-06-11 16:02] LABS: Glucose, Whole Blood 176 mg/dL (60-115)
[2021-06-11] MEDS: Insulin Lispro 100 UNIT/ML 3 ML VIAL SUBCUT ×2 (16:36→22:49)
[2021-06-11 20:21] LABS: Glucose, Whole Blood 200 mg/dL (60-115)
[2021-06-11] MEDS: rOPINIRole HCL 0.5 MG TABLET PO (22:51)
[2021-06-12] VITALS (10 sets, daily range): BP systolic 117–142; BP diastolic 54–65; PULSE 66–80; RESP 16–18; TEMP 36.4–37.2; O2SAT 95–100; BMI 66.6
[2021-06-12] MEDS: Heparin Sodium,Porcine 5,000 UNIT/ML VIAL 5000 UNIT SUBCUT ×3 (03:40→17:00)
[2021-06-12] MEDS: Omeprazole 20 MG CAPSULE.DR PO (06:33)
[2021-06-12 07:16] LABS: Hematocrit 25.5 % (37-47); Hemoglobin 8.2 g/dl (12.0-16.0); Mean Corpuscular HGB Conc 32.2 g/dl (31.0-35.0); Mean Corpuscular Hemoglobin 30.5 pg (27.0-33.0); Mean Corpuscular Volume 94.8 fL (80-98); Mean Platelet Volume 10.5 fL (9.4-12.3); Platelet Count 264 X10*3/uL (160-400); Red Blood Count 2.69 X10*6/uL (4.20-5.50); Red Cell Distribution Width 13.3 % (11.0-16.0); White Blood Count 11.6 X10*3/uL (4.8-10.8)
[2021-06-12 07:32] LABS: Glucose, Whole Blood 113 mg/dL (60-115)
[2021-06-12 07:49] LABS: Anion Gap 15 (12-20); Blood Urea Nitrogen 65 mg/dL (9-16); Calcium 7.9 mg/dL (8.4-10.2); Carbon Dioxide 20 mmol/L (22-29); Chloride 107 mmol/L (96-108); Estimated Glomerular Filt Rate 15; Glucose Random 113 mg/dL (60-115); Potassium 4.5 mmol/L (3.3-5.1); Sodium 137 mmol/L (135-145)
[2021-06-12] MEDS: Sodium Zirconium Cyclosilicate 5 GM POWD.PACK PO (09:43)
[2021-06-12] MEDS: amLODIPine Besylate 10 MG TABLET PO (09:44)
[2021-06-12] MEDS: hydrALAZINE HCl 25 MG TABLET PO ×3 (09:45→21:15)
[2021-06-12] MEDS: Aspirin Enteric Coated 81 MG TABLET.DR PO (09:45)
[2021-06-12] MEDS: Insulin Glargine,Hum.rec.anlog 100 UNIT/ML 10 ML VIAL 40 UNIT SUBCUT ×2 (09:46→21:16)
[2021-06-12] MEDS: polyethylene glycoL 3350 17 GM POWD.PACK PO (09:46)
[2021-06-12] MEDS: 0.9 % Sodium Chloride Flush 3 ML SYRINGE IVFLUSH ×3 (09:47→21:27)
[2021-06-12] MEDS: Nystatin Cream 15 GM TUBE 1 APPL TOPICAL ×2 (09:48→21:27)
[2021-06-12 11:37] LABS: Glucose, Whole Blood 140 mg/dL (60-115)
[2021-06-12 16:22] LABS: Glucose, Whole Blood 113 mg/dL (60-115)
--- NOTE | 2021-06-12 17:31 | HO.PM.IMPN ---
Subjective Subjective Date of Service: 06/12/21 Interval History: no chest pain no dyspnea no worsening edema Review of Systems Review of Systems: Yes all other systems are reviewed and are negative Physical Exam Vital Signs: Vital Signs: Last Vital Signs Temp 98.7 F 06/12/21 15:19 Pulse 66 06/12/21 17:00 Resp 18 06/12/21 15:19 BP 125/56 L 06/12/21 17:00 Pulse Ox 95 06/12/21 15:19 Body Mass Index 66.6 Gen: in no acute distress HEENT: sclera anicteric, moist mucus membranes Neck: supple Lungs: clear to auscultation bilaterally Heart: distant heart sounds, no murmurs Abd: soft, non-tender, non-distended, morbidly obese Ext: no edema Skin: warm/well-perfused Neuro: alert and oriented x3, no focal findings Psych: appropriate affect Objective Data Active Medications Amlodipine Besylate (Amlodipine Besylate 10 Mg Tablet) 10 mg PO DAILY [facility]; Protocol Last Admin: 06/12/21 09:44 Dose: 10 mg Documented by: JESSICA Aspirin (Aspirin Enteric Coated 81 Mg Tablet.) 81 mg PO DAILY [facility] Last Admin: 06/12/21 09:45 Dose: 81 mg Documented by: JESSICA Docusate Sodium (Docusate Sodium 100 Mg Capsule) 200 mg PO BEDTIME [facility] Last Admin: 06/11/21 22:51 Dose: Not Given Documented by: VIOLETTA Non-Admin Reason: Patient Refused Heparin Sodium (Porcine) (Heparin Sodium,Porcine 5,000 Unit/Ml Vial) 5,000 unit SUBCUT Q8H [facility] Last Admin: 06/12/21 17:00 Dose: 5,000 unit Documented by: JESSICA Hydralazine HCl (Hydralazine Hcl 25 Mg Tablet) 25 mg PO TID [facility]; Protocol Last Admin: 06/12/21 17:00 Dose: 25 mg Documented by: JESSICA Insulin Glargine (Insulin Glargine,Hum.Rec.Anlog 100 Unit/Ml 10 Ml Vial) 40 unit SUBCUT BID [facility] Last Admin: 06/12/21 09:46 Dose: 40 unit Documented by: JESSICA Insulin Human Lispro (Insulin Lispro 100 Unit/Ml 3 Ml Vial) 0 unit SUBCUT QIDACHS [facility]; Protocol Last Admin: 06/12/21 16:23 Dose: Not Given Documented by: JESSICA Non-Admin Reason: No Insulin Coverage Nitroglycerin (Nitroglycerin 0.4 Mg Tab.Subl) 0.4 mg SUBLINGUAL Q5MX3 PRN PRN Reason: Chest Pain Last Admin: 06/01/21 20:24 Dose: 0.4 mg Documented by: GREG Nystatin (Nystatin Cream 15 Gm Tube) 1 appl TOPICAL BID [facility]; Protocol Last Admin: 06/12/21 09:48 Dose: 1 appl Documented by: JESSICA Omeprazole (Omeprazole 20 Mg Capsule.Dr) 20 mg PO DAILY@0630 [facility] Last Admin: 06/12/21 06:33 Dose: 20 mg Documented by: VIOLETTA Ondansetron HCl (Ondansetron Odt 4 Mg Tab.Rapdis) 4 mg TRANSLINGU TIDAC PRN PRN Reason: nausea Last Admin: 06/10/21 01:10 Dose: 4 mg Documented by: ASHLEIGH Oxybutynin Chloride (Oxybutynin Chloride Er 5 Mg Tab.Er.24) 5 mg PO DAILY [facility] Last Admin: 06/12/21 09:47 Dose: 5 mg Documented by: JESSICA Polyethylene Glycol (Polyethylene Glycol 3350 17 Gm Powd.Pack) 17 gm PO DAILY [facility] Last Admin: 06/12/21 09:46 Dose: 17 gm Documented by: JESSICA Ropinirole HCl (Ropinirole Hcl 0.5 Mg Tablet) 0.5 mg PO BEDTIME [facility] Last Admin: 06/11/21 22:51 Dose: 0.5 mg Documented by: VIOLETTA Sodium Chloride (0.9 % Sodium Chloride Flush 3 Ml Syringe) 3 ml IVFLUSH QSHIFT [facility] Last Admin: 06/12/21 17:01 Dose: 3 ml Documented by: JESSICA Sodium Zirconium Cyclosilicate (Sodium Zirconium Cyclosilicate 5 Gm Powd.Pack) 5 gm PO DAILY [facility] Last Admin: 06/12/21 09:43 Dose: 5 gm Documented by: JESSICA Labs CBC & Chem 7: 06/12/21 06:34 06/12/21 06:34 Labs: Laboratory Results - last 24 hr 06/11/21 06/12/21 06/12/21 20:15 06:34 06:34 MCV 94.8 MCH 30.5 MCHC 32.2 RDW 13.3 Plt Count 264 MPV 10.5 Absolute Nucleated RBC 0.000 Nucleated RBC % (auto) 0.0 Anion Gap 15 Estim Creat Clear Calc 32.0 Estimated GFR 15 POC Glucose 200 H Random Glucose 113 Calcium 7.9 L 06/12/21 06/12/21 06/12/21 07:24 11:33 16:16 MCV MCH MCHC RDW Plt Count MPV Absolute Nucleated RBC Nucleated RBC % (auto) Anion Gap Estim Creat Clear Calc Estimated GFR POC Glucose 113 140 H 113 Random Glucose Calcium Assessment and Plan (1) Acute kidney injury superimposed on chronic kidney disease: Status: Acute (2) Anemia: Status: Acute (3) Hyperkalemia: Status: Acute (4) Heart failure with preserved ejection fraction: Status: Acute (5) Morbid obesity: Status: Acute (6) Hypothyroidism: Status: Acute (7) Essential hypertension: Status: Acute Assessment and Plan: hospital d#13 60yo F with HFpEF admitted for CHF exacerbation # acute/chronic HFpEF - continue to hold torsemide given increase in SCr, will likely resume 40 mg daily tomorrow [was on 100 mg bid at home] - last TTE December 2020 showed LVEF 60-65%, grade 1 diastolic dysfunction # RASHEEDA/CKD4 - baseline SCr around 2-2.5, increased to 3 due to overdiuresis- continue to hold torsemide + losartan and follow BMP and avoid nephrotoxins # hyperK - likely due to compromised distal flow, low renin/aldosterone state; continue Lokelma 5g daily, low-K diet, periodic BMP monitoring # HTN - continue amlodipine + hydralazine; losartan d/c'ed as above # nausea/vomiting - resolved, has prn ondanestron - SBFT showed delayed SB transit, CT A/P no abnormality, EGD July 2020 unremarkable, normal GES - continue chronic PPI - dose of oxybutynin decreased; could consider d/c'ing ropinirole as outpt if nausea recurs # constipation - bowel regimen # morbid obesity - outpt bariatrics evaluation recommended # DM2 - continue basal/bolus insulin # OAB - oxybutynin # VTE ppx - UFH # dispo - awaiting STR placement Quality Stroke Does the patient have a stroke diagnosis?: No VTE Prior VTE?: No VTE Risk Level:: Medical - moderate - high VTE Device Contraindication: Treatment Not Indicated VTE Drug Contraindication: N/A - Med Ordered
--- NOTE | 2021-06-12 18:48 | PM.PNNEP ---
Subjective Subjective Date of Service: 06/12/21 Principal diagnosis: RASHEEDA CKD Interval history: seen and examined, events noted Physical Exam Vital Signs: Vital Signs: Last Vital Signs Temp 98.7 F 06/12/21 15:19 Pulse 66 06/12/21 17:00 Resp 18 06/12/21 15:19 BP 125/56 L 06/12/21 17:00 Pulse Ox 95 06/12/21 15:19 Body Mass Index 66.6 Const: General: no acute distress HENMT: Head: Yes normocephalic and Yes atraumatic Eyes: EOM: EOMs intact bilaterally Neck: Neck: Yes supple Resp: Auscultation: diminished lung sounds Cardio: Rate: regular rate Heart sounds: S1 normal heart sound present and S2 normal heart sound present GI: Palpation (GI): Soft to palpation and no guarding Neuro: General: moves all extremities Extrem: General: Yes edema and Yes pedal edema Objective Data Labs CBC & Chem 7: 06/12/21 06:34 06/12/21 06:34 Labs: Laboratory Results - last 24 hr 06/11/21 06/12/21 06/12/21 20:15 06:34 06:34 WBC 11.6 H RBC 2.69 L D Hgb 8.2 L D Hct 25.5 L D MCV 94.8 MCH 30.5 MCHC 32.2 RDW 13.3 Plt Count 264 MPV 10.5 Absolute Nucleated RBC 0.000 Nucleated RBC % (auto) 0.0 Sodium 137 Potassium 4.5 Chloride 107 Carbon Dioxide 20 L Anion Gap 15 BUN 65 H Creatinine 3.17 H Estim Creat Clear Calc 32.0 Estimated GFR 15 POC Glucose 200 H Random Glucose 113 Calcium 7.9 L 06/12/21 06/12/21 06/12/21 07:24 11:33 16:16 WBC RBC Hgb Hct MCV MCH MCHC RDW Plt Count MPV Absolute Nucleated RBC Nucleated RBC % (auto) Sodium Potassium Chloride Carbon Dioxide Anion Gap BUN Creatinine Estim Creat Clear Calc Estimated GFR POC Glucose 113 140 H 113 Random Glucose Calcium Microbiology Microbiology Results: Microbiology 06/01/21 00:43 Blood - Venous Blood Culture - Final No growth after 5 days. 06/01/21 00:43 Blood - Venous Blood Culture - Final No growth after 5 days. 05/31/21 22:45 Urine clean catch - Urine rubin top Urine Culture - Final Procedures Date of Service Date of Service: 06/12/21 Assessment & Plan Assessment and plan (1) Acute kidney injury superimposed on chronic kidney disease: Status: Acute Assessment and Plan: 1. RASHEEDA: suspect clsoe to bsl 2. CKD 4: bsl Scr 2.0-2.5 in past c/w DN/HTN renal dis--now 2.5-3.0 3. SOB: multifact including Obesity and h/o CHF with the latter ? resolved 4. Anemia 5. Obesity 6. HyperK: reoslved with K binder Disc: adv CKD and at high risk of prog to ESRD in next 6-18 months REC: cont to track UOP/renal func; diuretic holiday but likely will need to r/s soon--can cont to hold today and reassess tomorrow; protect non-dominant arm Will follow with team Time Spent With Patient Time: Total time spent is greater than 50% in coordination of care (as documented) at patient's floor/unit and/or counseling patient: Progress Note: Quality Stroke Does the patient have a stroke diagnosis?: No
[2021-06-12 20:12] LABS: Glucose, Whole Blood 154 mg/dL (60-115)
[2021-06-12] MEDS: Insulin Lispro 100 UNIT/ML 3 ML VIAL SUBCUT (21:15)
[2021-06-12] MEDS: rOPINIRole HCL 0.5 MG TABLET PO (21:15)
[2021-06-13] VITALS (10 sets, daily range): BP systolic 115–154; BP diastolic 54–73; PULSE 63–74; RESP 20; TEMP 36.4–37.2; O2SAT 96–98
[2021-06-13] MEDS: Omeprazole 20 MG CAPSULE.DR PO (06:03)
[2021-06-13 07:21] LABS: Glucose, Whole Blood 73 mg/dL (60-115)
[2021-06-13 07:50] LABS: Anion Gap 13 (12-20); Blood Urea Nitrogen 69 mg/dL (9-16); Calcium 8.2 mg/dL (8.4-10.2); Carbon Dioxide 22 mmol/L (22-29); Chloride 107 mmol/L (96-108); Creatinine Clr Calc Pharmacy 30.8; Estimated Glomerular Filt Rate 14; Glucose Random 71 mg/dL (60-115); Potassium 4.6 mmol/L (3.3-5.1); Sodium 137 mmol/L (135-145)
[2021-06-13 08:25] LABS: B Type Natriuretic Peptide 193 pg/mL (<100)
[2021-06-13] MEDS: polyethylene glycoL 3350 17 GM POWD.PACK PO (08:46)
[2021-06-13] MEDS: Heparin Sodium,Porcine 5,000 UNIT/ML VIAL 5000 UNIT SUBCUT ×2 (08:46→17:16)
[2021-06-13] MEDS: Insulin Glargine,Hum.rec.anlog 100 UNIT/ML 10 ML VIAL 40 UNIT SUBCUT ×2 (08:47→21:37)
[2021-06-13] MEDS: hydrALAZINE HCl 25 MG TABLET PO ×3 (08:48→21:37)
[2021-06-13] MEDS: amLODIPine Besylate 10 MG TABLET PO (08:48)
[2021-06-13] MEDS: Aspirin Enteric Coated 81 MG TABLET.DR PO (08:49)
[2021-06-13] MEDS: 0.9 % Sodium Chloride Flush 3 ML SYRINGE IVFLUSH (08:49)
[2021-06-13] MEDS: Nystatin Cream 15 GM TUBE 1 APPL TOPICAL ×2 (08:55→21:44)
--- NOTE | 2021-06-13 09:42 | P.PNIM_ITS ---
Subjective Subjective Date of Service: 06/13/21 Interval History: no dyspnea no chest pain edema slightly worse awaiting placement Review of Systems Review of Systems: Yes all other systems are reviewed and are negative Physical Exam Vital Signs: Vital Signs: Last Vital Signs Temp 97.7 F 06/13/21 07:35 Pulse 63 06/13/21 08:48 Resp 20 06/13/21 07:35 BP 115/57 L 06/13/21 08:48 Pulse Ox 96 06/13/21 07:35 Body Mass Index 66.6 Gen: in no acute distress HEENT: sclera anicteric, moist mucus membranes Neck: supple Lungs: clear to auscultation bilaterally Heart: distant heart sounds, no murmurs Abd: soft, non-tender, non-distended, morbidly obese Ext: 1+ lower extremity edema Skin: warm/well-perfused Neuro: alert and oriented x3, no focal findings Psych: appropriate affect Objective Data Active Medications Amlodipine Besylate (Amlodipine Besylate 10 Mg Tablet) 10 mg PO DAILY [facility]; Protocol Last Admin: 06/13/21 08:48 Dose: 10 mg Documented by: TANA Aspirin (Aspirin Enteric Coated 81 Mg Tablet.) 81 mg PO DAILY [facility] Last Admin: 06/13/21 08:49 Dose: 81 mg Documented by: TANA Docusate Sodium (Docusate Sodium 100 Mg Capsule) 200 mg PO BEDTIME [facility] Last Admin: 06/12/21 21:21 Dose: Not Given Documented by: YENI Non-Admin Reason: Patient Refused Heparin Sodium (Porcine) (Heparin Sodium,Porcine 5,000 Unit/Ml Vial) 5,000 unit SUBCUT Q8H [facility] Last Admin: 06/13/21 08:46 Dose: 5,000 unit Documented by: TANA Hydralazine HCl (Hydralazine Hcl 25 Mg Tablet) 25 mg PO TID [facility]; Protocol Last Admin: 06/13/21 08:48 Dose: 25 mg Documented by: TANA Insulin Glargine (Insulin Glargine,Hum.Rec.Anlog 100 Unit/Ml 10 Ml Vial) 40 unit SUBCUT BID [facility] Last Admin: 06/13/21 08:47 Dose: 40 unit Documented by: TANA Insulin Human Lispro (Insulin Lispro 100 Unit/Ml 3 Ml Vial) 0 unit SUBCUT QIDACHS [facility]; Protocol Last Admin: 06/13/21 07:50 Dose: Not Given Documented by: TANA Non-Admin Reason: No Insulin Coverage Nitroglycerin (Nitroglycerin 0.4 Mg Tab.Subl) 0.4 mg SUBLINGUAL Q5MX3 PRN PRN Reason: Chest Pain Last Admin: 06/01/21 20:24 Dose: 0.4 mg Documented by: GREG Nystatin (Nystatin Cream 15 Gm Tube) 1 appl TOPICAL BID [facility]; Protocol Last Admin: 06/13/21 08:55 Dose: 1 appl Documented by: TANA Omeprazole (Omeprazole 20 Mg Capsule.Dr) 20 mg PO DAILY@0630 [facility] Last Admin: 06/13/21 06:03 Dose: 20 mg Documented by: YENI Ondansetron HCl (Ondansetron Odt 4 Mg Tab.Rapdis) 4 mg TRANSLINGU TIDAC PRN PRN Reason: nausea Last Admin: 06/10/21 01:10 Dose: 4 mg Documented by: ASHLEIGH Oxybutynin Chloride (Oxybutynin Chloride Er 5 Mg Tab.Er.24) 5 mg PO DAILY [facility] Last Admin: 06/13/21 08:47 Dose: 5 mg Documented by: TANA Polyethylene Glycol (Polyethylene Glycol 3350 17 Gm Powd.Pack) 17 gm PO DAILY [facility] Last Admin: 06/13/21 08:46 Dose: 17 gm Documented by: TANA Ropinirole HCl (Ropinirole Hcl 0.5 Mg Tablet) 0.5 mg PO BEDTIME [facility] Last Admin: 06/12/21 21:15 Dose: 0.5 mg Documented by: YENI Sodium Chloride (0.9 % Sodium Chloride Flush 3 Ml Syringe) 3 ml IVFLUSH QSHIFT [facility] Last Admin: 06/13/21 08:49 Dose: 3 ml Documented by: TANA Sodium Zirconium Cyclosilicate (Sodium Zirconium Cyclosilicate 5 Gm Powd.Pack) 5 gm PO DAILY [facility] Last Admin: 06/12/21 09:43 Dose: 5 gm Documented by: DEENA-ASKEP Torsemide (Torsemide 20 Mg Tablet) 40 mg PO DAILY [facility]; Protocol Labs CBC & Chem 7: 06/12/21 06:34 06/13/21 06:57 Labs: Laboratory Results - last 24 hr 06/12/21 06/12/21 06/12/21 11:33 16:16 20:08 Anion Gap Estim Creat Clear Calc Estimated GFR POC Glucose 140 H 113 154 H Random Glucose Calcium B-Natriuretic Peptide 06/13/21 06/13/21 06/13/21 06:57 06:57 07:12 Anion Gap 13 Estim Creat Clear Calc 30.8 Estimated GFR 14 POC Glucose 73 Random Glucose 71 Calcium 8.2 L B-Natriuretic Peptide 193 H Assessment and Plan (1) Acute kidney injury superimposed on chronic kidney disease: Status: Acute (2) Anemia: Status: Acute (3) Hyperkalemia: Status: Acute (4) Heart failure with preserved ejection fraction: Status: Acute (5) Morbid obesity: Status: Acute (6) Hypothyroidism: Status: Acute (7) Essential hypertension: Status: Acute Assessment and Plan: hospital d#14 60yo F with HFpEF admitted for CHF exacerbation # acute/chronic HFpEF - resume torsemide at lower dose of 40 mg daily - last TTE December 2020 showed LVEF 60-65%, grade 1 diastolic dysfunction # RASHEEDA/CKD4 - baseline SCr around 2-2.5, ?cardiorenal superimposed on DM/HTN nephropathy - follow BMP and avoid nephrotoxins; losartan d/'truman - high risk of progressing to HD dependence over next few months # hyperK - likely due to compromised distal flow, low renin/aldosterone state; continue Lokelma 5g daily, low-K diet, losartan d/c'ed; periodic BMP monitoring # HTN - continue amlodipine + hydralazine; losartan d/c'ed as above # nausea/vomiting - resolved, has prn ondanestron - SBFT showed delayed SB transit, CT A/P no abnormality, EGD July 2020 unremarkable, normal GES - continue chronic PPI - dose of oxybutynin decreased; could consider d/c'ing ropinirole as outpt if nausea recurs # constipation - bowel regimen # morbid obesity - outpt bariatrics evaluation recommended # DM2 - continue basal/bolus insulin # OAB - oxybutynin # VTE ppx - UFH # dispo - awaiting STR placement Quality Stroke Does the patient have a stroke diagnosis?: No VTE Prior VTE?: No VTE Risk Level:: Medical - moderate - high VTE Device Contraindication: Treatment Not Indicated VTE Drug Contraindication: N/A - Med Ordered
[2021-06-13] MEDS: Torsemide 20 MG TABLET 40 MG PO (10:23)
[2021-06-13 10:57] LABS: COVID-19 Test Negative (Negative); IDNOW Serial# 08D9AD1C
[2021-06-13 11:21] LABS: Glucose, Whole Blood 89 mg/dL (60-115)
[2021-06-13] MEDS: Sodium Zirconium Cyclosilicate 5 GM POWD.PACK PO (11:53)
--- NOTE | 2021-06-13 12:52 | MHC.CM.PN ---
CM met with Patient at bedside regarding dc planning. CM explained that MULTIPLE snf referrals have been made but few facilities have the resources to manage bariatric Patients.CM informed Patient that she has been accepted at [facility], pending her insurance authorization.CM will continue to coordinate dc with Patient.
--- NOTE | 2021-06-13 13:48 | MHC.CM.PN ---
Patient has been medically cleared for dc to SNF/STR today.Patient will dc to [facility] today at 4PM, via [facility]. CM addressed second IMM with Patient at bedside and provided her with the original and a copy has been placed on the chart. Patient is aware of and in agreement with the dc plan. Per Patient's request, CM informed Patient's Daughter/Nicholas @ [phone] of the dc plan; she is also in agreement. Patient has chosen to inform her Son herself, of the dc plan.
--- NOTE | 2021-06-13 13:59 | PC.NURSE ---
Addendum entered by Debbie Mackey RN 06/13/21 19:24: AMBULANCE UNABLE TO PICK PATIENT UP TONIGHT. MD AND CASE MANAGEMENT NOTIFIED. NEW AMBULANCE WITH HAVE TO BE ORDERED TOMORROW MORNING. FACILITY WILL HOLD BED. PATIENT AND FAMILY NOTIFIED OF SITUATION. Original Note: JANE OR CALLED AND REPORT GIVEN TO MILAGRO. IV AND TELEPACK REMOVED. AWAITING AMBULANCE SCHEDULED FOR 1600.
--- NOTE | 2021-06-13 14:17 | PM.DS ---
DS: Providers Provider Date of Service: 06/13/21 Date of admission: 05/31/21 23:53 Primary care physician: [facility] Consults: 06/01/21 00:44 Consult to Cardiology Routine Consulting Provider: Maximino Cui Reason for consultation: heart failure 06/03/21 09:55 Consult to Nephrology Routine Consulting Provider: Johnny Londono Reason for consultation: CKD, hyperkalemia, ?rta iv DS: Diagnosis Discharge Diagnosis (1) Acute kidney injury superimposed on chronic kidney disease: Status: Acute (2) Anemia: Status: Acute (3) Hyperkalemia: Status: Acute (4) Heart failure with preserved ejection fraction: Status: Acute (5) Morbid obesity: Status: Acute (6) Hypothyroidism: Status: Acute (7) Essential hypertension: Status: Acute DS: Summary Hospital Course Hospital Course: from admission H+P by admitting hospitalist Lewis José, 05/31/21: 60-year-old female with morbid obesity, diabetes, hypertension, chronic kidney disease are who called EMS to be brought to the emergency room because he is no longer been able to take care of herself.? She stated that she has been having difficulty getting out of bed or stand on her own and as a result is not been able to get out of bed and has been voiding in bed and defecating in bed as well.? Additionally she has been complaining about shortness of breath and leg edema.? Workup in the ED has revealed heart failure, and UTI and has received IV Lasix and IV antibiotics and is been admitted for further management This 60yo morbidly obese F with HFpEF was admitted to the [facility] [place] for CHF exacerbation and diuresed with IV furosemide. Prior TTE in December 2020 showed LVEF 60-65%, grade 1 diastolic dysfunction. Hospitalization was complicated by RASHEEDA superimposed on CKD4 [baseline SCr around 2.5] thought due to overdiuresis versus cardiorenal syndrome superimposed on DM/HTN nephorpathy. Losartan was stopped. She was given Lokelma for hyperkalemia as well. Nephrology was consulted and she will need close follow-up given high risk of progression to dialysis dependence in the future. She was restarted on maintenance diuretics at a lower dose, i.e., torsemide 40 mg daily. She will need cardiology follow-up as well. She has chronic nausea and vomiting that has been previously extensively worked up (SBFT showed delayed SB transit, CT A/P did not show abnormality, GES was normal, EGD was unremarkable); PPI was continued and oxybutynin dose was decreased; could consider discontinuing ropinirole if nausea recurs in the future. She was started on bowel regimen for constipation. Outpatient bariatrics evaluation should be considered given her morbid obesity. Due to gross deconditioning with inability to care for herself at home, she was discharged to short-term rehabilitation at [facility]. She should have repeat labs in 1 week: BNP, BMP, and magnesium. Time Spent with Patient Time attestation: Total time spent providing and/or coordinating discharge services: Discharge coordination time: Greater than 30 minutes Quality: Stroke Does the patient have a stroke diagnosis?: No Physical Exam Vital Signs: Vital Signs: Last Vital Signs Temp 98.9 F 06/13/21 11:34 Pulse 70 06/13/21 14:12 Resp 20 06/13/21 11:34 BP 149/65 H 06/13/21 14:12 Pulse Ox 97 06/13/21 11:34 Body Mass Index 66.6 Gen: in no acute distress HEENT: sclera anicteric, moist mucus membranes Neck: supple Lungs: clear to auscultation bilaterally Heart: distant heart sounds, no murmurs Abd: soft, non-tender, non-distended, morbidly obese Ext: 1+ lower extremity edema Skin: warm/well-perfused Neuro: alert and oriented x3, no focal findings Psych: appropriate affect DS: Data Data Completed and Pending Completed studies during hospitalization [Text1]: Laboratory Results WBC 11.6 X10*3/uL (4.8-10.8) H 06/12/21 06:34 RBC 2.69 X10*6/uL (4.20-5.50) L D 06/12/21 06:34 Hgb 8.2 g/dl (12.0-16.0) L D 06/12/21 06:34 Hct 25.5 % (37-47) L D 06/12/21 06:34 MCV 94.8 fL (80-98) 06/12/21 06:34 MCH 30.5 pg (27.0-33.0) 06/12/21 06:34 MCHC 32.2 g/dl (31.0-35.0) 06/12/21 06:34 RDW 13.3 % (11.0-16.0) 06/12/21 06:34 Plt Count 264 X10*3/uL (160-400) 06/12/21 06:34 MPV 10.5 fL (9.4-12.3) 06/12/21 06:34 Immature Gran % (Auto) 0.3 % (0.0-0.4) 05/31/21 22: Neut % (Auto) 61.9 % (45-73) 05/31/21 22: Lymph % (Auto) 24.5 % (20-40) 05/31/21 22: [place] % (Auto) 9.1 % (2-11) 05/31/21 22: Eos % (Auto) 3.6 % (0-4) 05/31/21 22: Baso % (Auto) 0.6 % (0-2) 05/31/21 22: Lymph # (Auto) 2.4 X10*3/uL (1.2-4.9) 05/31/21 22: [place] # (Auto) 0.9 X10*3/uL (0.1-1.2) 05/31/21 22: Eos # (Auto) 0.4 X10*3/uL (0.0-0.4) 05/31/21 22: Baso # (Auto) 0.1 X10*3/uL (0.0-0.2) 05/31/21 22: Abs Immat Gran (auto) 0.03 X10*3/uL (0.00-0.03) 05/31/21 22: Absolute Neuts (auto) 6.0 X10*3/uL (2.0-8.3) 05/31/21: Absolute Nucleated RBC 0.000 X10*3/uL (0.0-0.012) 06/12/21 06:34 Nucleated RBC % (auto) 0.0 /100WBC (0.0-0.2) 06/12/21 06:34 PT 10.8 SEC (9.9-13.0) 05/31/21 22:27 INR 1.0 (0.9-1.1) 05/31/21 22:27 Sodium 137 mmol/L (135-145) 06/13/21 06:57 Potassium 4.6 mmol/L (3.3-5.1) 06/13/21 06:57 Chloride 107 mmol/L (96-108) 06/13/21 06:57 Carbon Dioxide 22 mmol/L (22-29) 06/13/21 06:57 Anion Gap 13 (12-20) 06/13/21 06:57 BUN 69 mg/dL (9-16) H 06/13/21 06:57 Creatinine 3.30 mg/dL (0.5-1.4) H 06/13/21 06:57 Estim Creat Clear Calc 30.8 06/13/21 06:57 Estimated GFR 14 06/13/21 06:57 POC Glucose 89 mg/dL (60-115) 06/13/21 11:16 Random Glucose 71 mg/dL (60-115) 06/13/21 06:57 Fasting Glucose 172 mg/dL (60-99) H 06/04/21 05:55 Lactic Acid 1.0 mmol/L (0.5-2.0) 05/31/21 23:38 Calcium 8.2 mg/dL (8.4-10.2) L 06/13/21 06:57 Magnesium 1.7 mg/dL (1.6-2.6) 06/02/21 06:18 Total Bilirubin 0.2 mg/dL (0.0-1.0) 05/31/21 22:27 AST 13 U/L (5-31) 05/31/21 22:27 ALT 11 U/L (0-31) 05/31/21 22:27 Alkaline Phosphatase 167 U/L (39-117) H D 05/31/21 22:27 Troponin I High Sens 8.5 ng/L (<3.5-17.0) 06/01/21 23:39 B-Natriuretic Peptide 193 pg/mL (<100) H 06/13/21 06:57 Total Protein 5.5 g/dL (6.5-8.0) L 05/31/21 22:27 Albumin 2.6 g/dL (3.5-5.0) L 05/31/21 22:27 Triglycerides 171 mg/dL 06/06/21 05:53 Cholesterol 264 mg/dL 06/06/21 05:53 LDL Cholesterol, Calc 176 mg/dl 06/06/21 05:53 HDL Cholesterol 54 mg/dL 06/06/21 05:53 TSH 2.80 uIU/mL (0.32-4.0) 06/05/21 05:38 Urine Color YELLOW 05/31/21 22: Urine Appearance CLEAR 05/31/21 22:27 Urine pH 7.0 (5.0-8.0) 05/31/21 22:27 Ur Specific Call 1.020 (1.005-1.025) 05/31/21 22:27 Urine Protein 2+ MG/DL (NEG-TRACE) H 05/31/21 22:27 Urine Glucose (UA) >=1000 MG/DL (NEG) H 05/31/21 22: Urine Ketones NEG MG/DL (NEG) 05/31/21 22: Urine Blood 1+ (NEG) H 05/31/21 22:27 Urine Nitrite POS (NEG) H 05/31/21 22:27 Ur Leukocyte Esterase NEG (NEG) 05/31/21 22:27 Urine RBC 1-4 /HPF (0) 05/31/21 22:27 Urine WBC 1-4 /HPF (0-4) 05/31/21 22:27 Ur Squamous Epith Cells 1+ /LPF 05/31/21 22:27 Urine Bacteria 2+ /LPF 05/31/21 22:27 Urine Mucus 1+ /LPF 05/31/21 22:27 Acetone, Qual Negative (Negative) 05/31/21 22:27 COVID-19 ([facility]ER[facility]) Negative (Negative) 06/13/21 10:21 COVID-19 Clin Com See Note 06/13/21 10:21 Impressions Chest X-Ray 05/31/21 21:48 IMPRESSION: Trace left-sided pleural effusion, new when compared to the prior examination. Abdomen/Pelvis CT 06/01/21 22:55 IMPRESSION: 1. Diverticulosis without evidence of acute diverticulitis. No bowel wall thickening or associated inflammatory change. No small or large bowel obstruction. Unremarkable appendix. 2. No intra-abdominal mass, ascites, or lymphadenopathy. 3. Subcutaneous edema throughout the right abdominal wall, slightly increased when compared to the prior examination. 4. Additional chronic findings are unchanged. Head CT 06/01/21 22:55 IMPRESSION: No evidence of acute intracranial hemorrhage or edematous territorial infarction. Upper GI and Small Bowel X-Ray 06/05/21 14:55 IMPRESSION: Delayed small bowel transit. Otherwise unremarkable small bowel bowel series. Discharge Plan Discharge Patient Disposition: [facility] Discharge Diagnosis: CHF exacerbation, acute/chronic kidney disease Referrals: [facility] [Other] - 1 Week Johnny Londono MD [Physician] - 2 Weeks Terry Ochoa MD [Physician] - 1 Week Maximino Cui MD [Physician] - 2 Weeks Discharge Medications: New hydralazine 25 mg Tablet 25 mg PO TID Qty: 90 RF: 0 aspirin 81 mg Tablet,Delayed Release (Dr/Ec) 81 mg PO DAILY Qty: 30 RF: 0 amlodipine 10 mg Tablet 10 mg PO DAILY Qty: 30 RF: 0 nitroglycerin [Nitrostat] 0.4 mg Tablet, Sublingual 0.4 mg sublingual Q5MX3 PRN (Reason: Chest Pain) Qty: 30 RF: 0 Lokelma 5 gram Powder In Packet 5 g PO DAILY Qty: 30 RF: 0 torsemide 20 mg Tablet 40 mg PO DAILY Qty: 60 RF: 0 docusate sodium 100 mg Capsule 200 mg PO BEDTIME Qty: 60 RF: 0 polyethylene glycol 3350 17 gram Powder In Packet 17 g PO DAILY Qty: 30 RF: 0 oxybutynin chloride 5 mg Tablet Extended Release 24hr 5 mg PO DAILY Qty: 30 RF: 0 omeprazole 20 mg Capsule,Delayed Release(Dr/Ec) 20 mg PO DAILY@0630 Qty: 30 RF: 0 ondansetron 4 mg Tablet,Disintegrating 4 mg translingual TIDAC PRN (Reason: nausea) Qty: 12 RF: 0 Continued lancets [FreeStyle Lancets] 28 gauge misc 28 gauge topical .COMPLEX Qty: 200 RF: 5 ropinirole 0.5 mg tablet 0.5 mg PO BEDTIME Qty: 90 RF: 2 albuterol sulfate 90 mcg/actuation HFA aerosol inhaler 2 puff inhalation Q4H PRN (Reason: bronchospasm) 30 Days Qty: 8.5 RF: 5 (DME) insulin syringe-needle U-100 [BD Insulin Syringe Ultra-Fine] 1 mL 30 gauge x 1/2 syringe See Rx Instructions .ROUTE .MEDSUPPLY Qty: 100 RF: 3 (DME) blood sugar diagnostic Strip See Rx Instructions ea .ROUTE .MEDSUPPLY Qty: 200 RF: 8 (DME) Accu-Chek Berna Plus test strp Strip See Rx Instructions .Route Qty: 300 RF: 8 Humulin R U-500 (Conc) Insulin 500 unit/mL solution 30 unit subcut TID 90 Days Qty: 16.2 RF: 3 Lantus U-100 Insulin 100 unit/mL Solution 95 unit SUBCUT BID RF: 0 acetaminophen 325 mg tablet 2 tab PO Q6H PRN (Reason: pain) RF: 0 Rayaldee 30 mcg capsule,extended release 24 hr 1 cap PO DAILY RF: 0 Discontinued oxybutynin chloride 10 mg tablet extended release 24hr 10 mg PO DAILY 30 Days Qty: 30 RF: 0 Rayaldee 30 mcg capsule,extended release 24 hr 30 mcg PO DAILY RF: 0 torsemide 100 mg tablet 1 tab PO BID RF: 0 amlodipine 5 mg tablet 5 mg PO DAILY RF: 0 amlodipine 5 mg tablet 2 tab PO DAILY RF: 0 ciclopirox 0.77 % cream 1 applic topical BID RF: 0 Discharge Orders: Discharge Order (Routine); Ordered 06/13/21 Ordered By: Deondre Lamas Diet: diabetic diet and low salt diet Activity on Discharge: As tolerated Stand Alone Forms: Patient Portal Discharge page Other Ambulatory Orders: Basic Metabolic Panel (Routine) Timeframe: 1 Week Facility: [facility] - Location: Laboratory Ordered By: Deondre Lamas B Type Natriuretic Peptide (Routine) Timeframe: 1 Week Facility: [facility] - Location: Laboratory Ordered By: Deondre Lamas Magnesium (Routine) Timeframe: 1 Week Facility: [facility] - Location: Laboratory Ordered By: Deondre Lamas Care Plan Goals: heart health kidney health avoid hospitalization Health Concerns: acute/chronic heart failure [CHF] acute/chronic kidney disease hyperkalemia morbid obesity Plan of Treatment: take medications as prescribed above to rehabilitation labs in 1 week: BNP, BMP, magnesium follow up with Cardiology + Nephrology in 2 weeks Assessment: see Discharge Summary Patient Instructions: Heart Failure (DC)
--- NOTE | 2021-06-13 14:31 | MHC.CM.PN ---
PTS PCP IS ROMANA QUIROZ. TASK SENT TO [facility] TO UPDATE PTS RECORDS.
--- NOTE | 2021-06-13 15:17 | PM.PNNEP ---
Subjective Subjective Date of Service: 06/13/21 Principal diagnosis: RASHEEDA CKD Interval history: seen and examined, events noted Physical Exam Vital Signs: Vital Signs: Last Vital Signs Temp 97.5 F 06/13/21 14:57 Pulse 67 06/13/21 14:57 Resp 20 06/13/21 14:57 BP 122/56 L 06/13/21 14:57 Pulse Ox 96 06/13/21 14:57 Body Mass Index 66.6 Const: General: no acute distress HENMT: Head: Yes normocephalic and Yes atraumatic Eyes: EOM: EOMs intact bilaterally Neck: Neck: Yes supple Resp: Auscultation: diminished lung sounds Cardio: Rate: regular rate Heart sounds: S1 normal heart sound present and S2 normal heart sound present GI: Palpation (GI): Soft to palpation and no guarding Neuro: General: moves all extremities Extrem: General: Yes edema and Yes pedal edema Objective Data Labs CBC & Chem 7: 06/12/21 06:34 06/13/21 06:57 Labs: Laboratory Results - last 24 hr 06/12/21 06/12/21 06/13/21 16:16 20:08 06:57 Sodium 137 Potassium 4.6 Chloride 107 Carbon Dioxide 22 Anion Gap 13 BUN 69 H Creatinine 3.30 H Estim Creat Clear Calc 30.8 Estimated GFR 14 POC Glucose 113 154 H Random Glucose 71 Calcium 8.2 L B-Natriuretic Peptide COVID-19 ([facility]) COVID-19 Clin Com 06/13/21 06/13/21 06/13/21 06:57 07:12 10:21 Sodium Potassium Chloride Carbon Dioxide Anion Gap BUN Creatinine Estim Creat Clear Calc Estimated GFR POC Glucose 73 Random Glucose Calcium B-Natriuretic Peptide 193 H COVID-19 ([facility]ERA) Negative COVID-19 Clin Com See Note 06/13/21 11:16 Sodium Potassium Chloride Carbon Dioxide Anion Gap BUN Creatinine Estim Creat Clear Calc Estimated GFR POC Glucose 89 Random Glucose Calcium B-Natriuretic Peptide COVID-19 ([facility]ERA) COVID-19 Clin Com Microbiology Microbiology Results: Microbiology 06/01/21 00:43 Blood - Venous Blood Culture - Final No growth after 5 days. 06/01/21 00:43 Blood - Venous Blood Culture - Final No growth after 5 days. 05/31/21 22:45 Urine clean catch - Urine rubin top Urine Culture - Final Procedures Date of Service Date of Service: 06/13/21 Assessment & Plan Assessment and plan (1) Acute kidney injury superimposed on chronic kidney disease: Start date: 06/13/21 Start time: 15:19 Status: Acute Assessment and Plan: 1. RASHEEDA: suspect clsoe to bsl 2. CKD 4: bsl Scr 2.0-2.5 in past c/w DN/HTN renal dis--now 2.5-3.0 3. SOB: multifact including Obesity and h/o CHF with the latter ? resolved 4. Anemia 5. Obesity 6. HyperK: reoslved with K binder Disc: adv CKD and at high risk of prog to ESRD in next 6-18 months REC: cont to track UOP/renal func; r/s diuretics; protect non-dominant arm; start procrit ( i will order) Will follow with team Time Spent With Patient Time: Total time spent is greater than 50% in coordination of care (as documented) at patient's floor/unit and/or counseling patient: Progress Note: Quality Stroke Does the patient have a stroke diagnosis?: No
[2021-06-13 16:42] LABS: Glucose, Whole Blood 196 mg/dL (60-115)
[2021-06-13] MEDS: Insulin Lispro 100 UNIT/ML 3 ML VIAL SUBCUT ×2 (17:16→21:36)
--- NOTE | 2021-06-13 18:57 | P.PNIM_ITS ---
Subjective Subjective Date of Service: 06/13/21 Interval History: no new complaints- no dyspnea, no chest pain was going to be d/c'ed to [facility] today but ambulance did not arri ve in time see d/c summary for hospital course Review of Systems Review of Systems: Yes all other systems are reviewed and are negative Physical Exam Vital Signs: Vital Signs: Last Vital Signs Temp 97.5 F 06/13/21 14:57 Pulse 67 06/13/21 14:57 Resp 20 06/13/21 14:57 BP 122/56 L 06/13/21 14:57 Pulse Ox 96 06/13/21 14:57 Body Mass Index 66.6 Gen: in no acute distress HEENT: sclera anicteric, moist mucus membranes Neck: supple Lungs: clear to auscultation bilaterally Heart: distant heart sounds, no murmurs Abd: soft, non-tender, non-distended, morbidly obese Ext: 1+ lower extremity edema Skin: warm/well-perfused Neuro: alert and oriented x3, no focal findings Psych: appropriate affect Objective Data Active Medications Amlodipine Besylate (Amlodipine Besylate 10 Mg Tablet) 10 mg PO DAILY [facility]; Protocol Last Admin: 06/13/21 08:48 Dose: 10 mg Documented by: TANA Aspirin (Aspirin Enteric Coated 81 Mg Tablet.) 81 mg PO DAILY [facility] Last Admin: 06/13/21 08:49 Dose: 81 mg Documented by: TANA Docusate Sodium (Docusate Sodium 100 Mg Capsule) 200 mg PO BEDTIME [facility] Last Admin: 06/12/21 21:21 Dose: Not Given Documented by: YENI Non-Admin Reason: Patient Refused Heparin Sodium (Porcine) (Heparin Sodium,Porcine 5,000 Unit/Ml Vial) 5,000 unit SUBCUT Q8H [facility] Last Admin: 06/13/21 17:16 Dose: 5,000 unit Documented by: TANA Hydralazine HCl (Hydralazine Hcl 25 Mg Tablet) 25 mg PO TID [facility]; Protocol Last Admin: 06/13/21 14:12 Dose: 25 mg Documented by: TANA Insulin Glargine (Insulin Glargine,Hum.Rec.Anlog 100 Unit/Ml 10 Ml Vial) 40 unit SUBCUT BID [facility] Last Admin: 06/13/21 08:47 Dose: 40 unit Documented by: TANA Insulin Human Lispro (Insulin Lispro 100 Unit/Ml 3 Ml Vial) 0 unit SUBCUT QIDACHS [facility]; Protocol Last Admin: 06/13/21 17:16 Dose: 2 unit Documented by: TANA Comments: was suppose to be d/c, ambulance late, dinner ordered, insulin given late Nitroglycerin (Nitroglycerin 0.4 Mg Tab.Subl) 0.4 mg SUBLINGUAL Q5MX3 PRN PRN Reason: Chest Pain Last Admin: 06/01/21 20:24 Dose: 0.4 mg Documented by: GREG Nystatin (Nystatin Cream 15 Gm Tube) 1 appl TOPICAL BID [facility]; Protocol Last Admin: 06/13/21 08:55 Dose: 1 appl Documented by: TANA Omeprazole (Omeprazole 20 Mg Capsule.Dr) 20 mg PO DAILY@0630 [facility] Last Admin: 06/13/21 06:03 Dose: 20 mg Documented by: YENI Ondansetron HCl (Ondansetron Odt 4 Mg Tab.Rapdis) 4 mg TRANSLINGU TIDAC PRN PRN Reason: nausea Last Admin: 06/10/21 01:10 Dose: 4 mg Documented by: ASHLEIGH Oxybutynin Chloride (Oxybutynin Chloride Er 5 Mg Tab.Er.24) 5 mg PO DAILY [facility] Last Admin: 06/13/21 08:47 Dose: 5 mg Documented by: TANA Polyethylene Glycol (Polyethylene Glycol 3350 17 Gm Powd.Pack) 17 gm PO DAILY [facility] Last Admin: 06/13/21 08:46 Dose: 17 gm Documented by: TANA Ropinirole HCl (Ropinirole Hcl 0.5 Mg Tablet) 0.5 mg PO BEDTIME [facility] Last Admin: 06/12/21 21:15 Dose: 0.5 mg Documented by: YENI Sodium Chloride (0.9 % Sodium Chloride Flush 3 Ml Syringe) 3 ml IVFLUSH QSHIFT [facility] Last Admin: 06/13/21 14:07 Dose: Not Given Documented by: TANA Non-Admin Reason: No Access Sodium Zirconium Cyclosilicate (Sodium Zirconium Cyclosilicate 5 Gm Powd.Pack) 5 gm PO DAILY [facility] Last Admin: 06/13/21 11:53 Dose: 5 gm Documented by: TANA Comments: given late due to medications given Torsemide (Torsemide 20 Mg Tablet) 40 mg PO DAILY [facility]; Protocol Last Admin: 06/13/21 10:23 Dose: 40 mg Documented by: TANA Labs CBC & Chem 7: 06/12/21 06:34 06/13/21 06:57 Labs: Laboratory Results - last 24 hr 06/12/21 06/13/21 06/13/21 20:08 06:57 06:57 Anion Gap 13 Estim Creat Clear Calc 30.8 Estimated GFR 14 POC Glucose 154 H Random Glucose 71 Calcium 8.2 L B-Natriuretic Peptide 193 H COVID-19 ([facility]) COVID-19 [facility] 06/13/21 06/13/21 06/13/21 07:12 10:21 11:16 Anion Gap Estim Creat Clear Calc Estimated GFR POC Glucose 73 89 Random Glucose Calcium B-Natriuretic Peptide COVID-19 ([facility]ERA) Negative COVID-19 6connect See Note 06/13/21 16:38 Anion Gap Estim Creat Clear Calc Estimated GFR POC Glucose 196 H Random Glucose Calcium B-Natriuretic Peptide COVID-19 ([facility]) COVID-19 [facility] Assessment and Plan (1) Acute kidney injury superimposed on chronic kidney disease: Status: Acute (2) Anemia: Status: Acute (3) Hyperkalemia: Status: Acute (4) Heart failure with preserved ejection fraction: Status: Acute (5) Morbid obesity: Status: Acute (6) Hypothyroidism: Status: Acute (7) Essential hypertension: Status: Acute Assessment and Plan: hospital d#15 60yo F with HFpEF admitted for CHF exacerbation # acute/chronic HFpEF - resumed torsemide at lower dose of 40 mg daily - last TTE December 2020 showed LVEF 60-65%, grade 1 diastolic dysfunction # RASHEEDA/CKD4 - baseline SCr around 2-2.5, ?cardiorenal superimposed on DM/HTN nephropathy - follow BMP and avoid nephrotoxins; losartan d/c'ed - high risk of progressing to HD dependence over next few months- needs close Nephrology f/u # hyperK - likely due to compromised distal flow, low renin/aldosterone state; continue Lokelma 5g daily, low-K diet, losartan d/c'ed; periodic BMP monitoring # HTN - continue amlodipine + hydralazine; losartan d/c'ed as above # nausea/vomiting - resolved, has prn ondanestron - SBFT showed delayed SB transit, CT A/P no abnormality, EGD July 2020 unremarkable, normal GES - continue chronic PPI - dose of oxybutynin decreased; could consider d/c'ing ropinirole as outpt if nausea recurs # constipation - bowel regimen # morbid obesity - outpt bariatrics evaluation recommended # DM2 - continue basal/bolus insulin # OAB - oxybutynin # VTE ppx - UFH # dispo - accepted at [facility] but ambulacne did not arrive in time today Quality Stroke Does the patient have a stroke diagnosis?: No VTE Prior VTE?: No VTE Risk Level:: Medical - moderate - high VTE Device Contraindication: Treatment Not Indicated VTE Drug Contraindication: N/A - Med Ordered
[2021-06-13 20:00] LABS: Glucose, Whole Blood 248 mg/dL (60-115)
[2021-06-13] MEDS: Docusate Sodium 100 MG CAPSULE 200 MG PO (21:24)
[2021-06-13] MEDS: rOPINIRole HCL 0.5 MG TABLET PO (21:45)
[2021-06-14] MEDS: Heparin Sodium,Porcine 5,000 UNIT/ML VIAL 5000 UNIT SUBCUT ×2 (01:02→10:15)
[2021-06-14 03:20] VITALS: BP 151/58; PULSE 67; RESP 18; TEMP 36.6; O2SAT 97
[2021-06-14 05:48] LABS: Hematocrit 25.2 % (37-47); Hemoglobin 8.2 g/dl (12.0-16.0); Mean Corpuscular HGB Conc 32.5 g/dl (31.0-35.0); Mean Corpuscular Hemoglobin 30.7 pg (27.0-33.0); Mean Corpuscular Volume 94.4 fL (80-98); Mean Platelet Volume 10.5 fL (9.4-12.3); Platelet Count 257 X10*3/uL (160-400); Red Blood Count 2.67 X10*6/uL (4.20-5.50); Red Cell Distribution Width 13.4 % (11.0-16.0)
[2021-06-14 06:15] LABS: Anion Gap 14 (12-20); Blood Urea Nitrogen 73 mg/dL (9-16); Calcium 8.1 mg/dL (8.4-10.2); Carbon Dioxide 21 mmol/L (22-29); Chloride 107 mmol/L (96-108); Creatinine Clr Calc Pharmacy 32.3; Estimated Glomerular Filt Rate 15; Glucose Random 143 mg/dL (60-115); Potassium 4.7 mmol/L (3.3-5.1); Sodium 137 mmol/L (135-145)
[2021-06-14] MEDS: Omeprazole 20 MG CAPSULE.DR PO (06:32)
[2021-06-14 07:04] VITALS: BP 136/55; PULSE 66; RESP 18; TEMP 36.6; O2SAT 98
[2021-06-14 07:09] LABS: Glucose, Whole Blood 118 mg/dL (60-115)
--- NOTE | 2021-06-14 08:56 | MHC.CM.PN ---
IMM 06/13/21 Female discharge today to [facility] rehab at 11 am via bls.
[2021-06-14] MEDS: Insulin Glargine,Hum.rec.anlog 100 UNIT/ML 10 ML VIAL 40 UNIT SUBCUT (10:14)
[2021-06-14] MEDS: polyethylene glycoL 3350 17 GM POWD.PACK PO (10:15)
[2021-06-14] MEDS: Aspirin Enteric Coated 81 MG TABLET.DR PO (10:15)
[2021-06-14] MEDS: Torsemide 20 MG TABLET 40 MG PO (10:15)
[2021-06-14] MEDS: Sodium Zirconium Cyclosilicate 5 GM POWD.PACK PO (10:15)
[2021-06-14 10:16] VITALS: BP 136/55; PULSE 66
[2021-06-14] MEDS: amLODIPine Besylate 10 MG TABLET PO (10:16)
[2021-06-14] MEDS: hydrALAZINE HCl 25 MG TABLET PO (10:16)
--- NOTE | 2021-06-14 12:04 | P.PNNP_ITS ---
Subjective Subjective Date of Service: 06/14/21 Principal diagnosis: RASHEEDA CKD Interval history: no new complaints- no dyspnea, no chest pain was going to be d/c'ed to [facility] today but ambulance did not arrive in time see d/c summary for hospital course Physical Exam Vital Signs: Vital Signs: Last Vital Signs Temp 97.8 F 06/14/21 07:04 Pulse 66 06/14/21 10:16 Resp 18 06/14/21 07:04 BP 136/55 L 06/14/21 10:16 Pulse Ox 98 06/14/21 07:04 Body Mass Index 66.6 Const: General: no acute distress HENMT: Head: Yes normocephalic and Yes atraumatic Neck: Neck: Yes supple Resp: Auscultation: diminished lung sounds Cardio: Heart sounds: S1 normal heart sound present and S2 normal heart sound present GI: Palpation (GI): Soft to palpation and no guarding Extrem: General: Yes pedal edema Objective Data Labs CBC & Chem 7: 06/14/21 05:14 06/14/21 05:14 Labs: Laboratory Results - last 24 hr 06/13/21 06/13/21 06/14/21 16:38 19:53 05:14 WBC 11.0 H RBC 2.67 L Hgb 8.2 L Hct 25.2 L MCV 94.4 MCH 30.7 MCHC 32.5 RDW 13.4 Plt Count 257 MPV 10.5 Absolute Nucleated RBC 0.000 Nucleated RBC % (auto) 0.0 Sodium Potassium Chloride Carbon Dioxide Anion Gap BUN Creatinine Estim Creat Clear Calc Estimated GFR POC Glucose 196 H 248 H Random Glucose Calcium 06/14/21 06/14/21 05:14 07:03 WBC RBC Hgb Hct MCV MCH MCHC RDW Plt Count MPV Absolute Nucleated RBC Nucleated RBC % (auto) Sodium 137 Potassium 4.7 Chloride 107 Carbon Dioxide 21 L Anion Gap 14 BUN 73 H Creatinine 3.15 H Estim Creat Clear Calc 32.3 Estimated GFR 15 POC Glucose 118 H Random Glucose 143 H Calcium 8.1 L Microbiology Microbiology Results: Microbiology 06/01/21 00:43 Blood - Venous Blood Culture - Final No growth after 5 days. 06/01/21 00:43 Blood - Venous Blood Culture - Final No growth after 5 days. 05/31/21 22:45 Urine clean catch - Urine rubin top Urine Culture - Final Procedures Date of Service Date of Service: 06/14/21 Assessment & Plan Assessment and plan (1) CKD (chronic kidney disease) stage 4, GFR 15-29 ml/min: Status: Acute (2) Heart failure with preserved ejection fraction: Status: Acute (3) Anemia: Status: Acute Assessment and Plan: Scr above baseline advanced CKD due to DM/HTN baseline Scr 2-2.5 mg/dl elevated serum potassium due to: -compromised distal flow -low renin aldosterone state (heparin can also cause type IV RTA) known heart failure with preserved function REC torsemide 40 mg daily continue sodium zirconium 5 grams daily low potassium diet follow kidney function and electrolytes Time Spent With Patient Time: Total time spent is greater than 50% in coordination of care (as documented) at patient's floor/unit and/or counseling patient: Progress Note: Quality Stroke Does the patient have a stroke diagnosis?: No
== END 2021-06-14 11:30 | disposition skilled nursing facility (03) | DRG 291 ==
LOC: HO.ED 23:52 → HO.EDOVER 06-01 00:20 → HO.IMC 06-01 12:52
PROVIDERS: Hospitalist; Internal Medicine; Admitting Provider Internal Medicine; Emergency Provider Student in an Organized Health Care Education/Training Program; Visit Provider Family Medicine
DX: I13.0 Hypertensive heart and chronic kidney disease with heart failure and stage 1 through stage 4 chronic kidney disease, or unspecified chronic kidney disease (principal); I50.33 Acute on chronic diastolic (congestive) heart failure; N17.0 Acute kidney failure with tubular necrosis; N39.0 Urinary tract infection, site not specified; Z68.44 Body mass index [BMI] 60.0-69.9, adult; N18.4 Chronic kidney disease, stage 4 (severe); D63.1 Anemia in chronic kidney disease; N32.81 Overactive bladder; K31.84 Gastroparesis; K59.00 Constipation, unspecified; E87.5 Hyperkalemia; E66.01 Morbid (severe) obesity due to excess calories; E11.22 Type 2 diabetes mellitus with diabetic chronic kidney disease; Z20.822 Contact with and (suspected) exposure to COVID-19; Z79.4 Long term (current) use of insulin; Z79.899 Other long term (current) drug therapy
CPT/HCPCS: 36415; 70450; 71045; 74176; 74250; 80048; 80053; 80061; 81001; 82009; 82947; 83605; 83735; 83880; 84443; 84484; 85025; 85027; 85610; 87040; 87086; 87635; 93005; 96365; 96375; 97110; 97162; 99221; 99285; J0696; J1940; J2270; J2405; J2765

== ENCOUNTER 2021-07-01 11:00 | Emergency (ER) | payer MEDICARE, MEDICAID, SELFPAY ==
--- NOTE | ~2021-07-01 | XR_ITS ---
EXAMINATION: XR CHEST CLINICAL INFORMATION: Shortness of breath COMPARISON: Previous chest x-rays most recent 06/01/2021 TECHNIQUE: Frontal view of the chest was obtained. FINDINGS: The cardiac silhouette is slightly enlarged but stable. There are increased central hilar markings. There is increased attenuation left lung questionable for a left pleural effusion. There is no right pleural effusion. There is no pneumothorax. Bony structures are unremarkable. XR/XR chest 1V IMPRESSION: Stable enlargement of the cardiac silhouette. Prominent central hilar markings questionable pulmonary venous redistribution/mild CHF versus airways disease. Correlation recommended. Question left pleural effusion.
[2021-07-01 11:18] VITALS: BP 144/84; BP 152/48; PULSE 74; PULSE 78; RESP 18; TEMP 37.4; O2SAT 94; O2SAT 95; BMI 68.8
--- NOTE | 2021-07-01 11:50 | PC.NURSE ---
iv inserted, labs drawn, urine obtained
--- NOTE | 2021-07-01 12:17 | ED_ITS ---
HPI - General Adult General Chief complaint: General Medical <Lester Link MD - Last Filed: 07/01/21 14:06> Stated complaint: SOB,DIFF AMBULATING,SEEN RECENTLY <Lester Link MD - Last Filed: 07/01/21 14:06> Time Seen by Provider: 07/01/21 11:52 <Lester Link MD - Last Filed: 07/01/21 14:06> Source: patient <Lester Link MD - Last Filed: 07/01/21 14:06> Mode of arrival: EMS <Lester Link MD - Last Filed: 07/01/21 14:06> Limitations: no limitations <Lester Link MD - Last Filed: 07/01/21 14:06> History of Present Illness HPI narrative: 61-year-old female who presents emergency department for evaluation of unable to get out of bed, abdominal and lower extremity swelling. The patient was hospitalized here at this facility on 05/31/2021 until 06/13/2021. The patient was admitted for declining ability to take care of herself at home and shortness of breath. She was found to have congestive heart failure with new left pleural effusion as well as a UTI. During her hospitalization she was diuresed with IV Lasix which led to acute kidney injury. The patient was felt to be very deconditioned and unable to care for herself, therefore she was sent to an acute rehab facility. The patient states that she was discharged on 06/28/2021 and has been home for 3 days. She states that she is unable to get out of bed and that her legs cannot support her. She states that she has noticed increased swelling in her lower extremities and in her abdomen. She states that she is feeling very weak and fatigued. She denied fever, chills, vomiting, change in bowel movements. She has had a occasional nonproductive cough, nausea with no vomiting and dysuria. The patient does live alone but she does have COUNSELLORS care. <Lester Link MD - Last Filed: 07/01/21 14:06> Related Data Home medications: Home Medications Medication Instructions Recorded Confirmed insulin glargine 100 unit/mL 50 unit SUBCUT BID 10/09/20 07/01/21 subcutaneous solution (Lantus U-100 Insulin) calcifediol 30 mcg capsule,24 1 cap PO DAILY 06/01/21 07/01/21 hr,extended release (Rayaldee) insulin regular human 100 unit/mL 1 sliding scale dose SUBCUT 07/01/21 07/01/21 injection solution (Humulin R USEASDIRECTD Regular U-100 Insulin) Previous Rx's Medication Instructions Recorded ropinirole 0.5 mg tablet 0.5 mg PO BEDTIME #90 tab 03/10/21 albuterol sulfate 90 mcg/actuation 2 puff INHALATION Q4H PRN 30 Days 03/24/21 aerosol inhaler #8.5 g insulin syringe-needle U-100 1 mL #100 ea 03/26/21 30 gauge x 1/2 (BD Insulin Syringe Ultra-Fine) blood sugar diagnostic #200 ea 04/07/21 blood sugar diagnostic (Accu-Chek #300 ea 04/08/21 Berna Plus test strp) amlodipine 10 mg tablet 10 mg PO DAILY #30 tab 06/13/21 aspirin 81 mg tablet,delayed 81 mg PO DAILY #30 tab 06/13/21 release docusate sodium 100 mg capsule 200 mg PO BEDTIME #60 cap 06/13/21 hydralazine 25 mg tablet 25 mg PO TID #90 tab 06/13/21 nitroglycerin 0.4 mg sublingual 0.4 mg SUBLINGUAL Q5MX3 PRN #30 tab 06/13/21 tablet (Nitrostat) omeprazole 20 mg capsule,delayed 20 mg PO DAILY@0630 #30 cap 06/13/21 release ondansetron 4 mg disintegrating 4 mg TRANSLINGUAL TIDAC PRN #12 tab 06/13/21 tablet oxybutynin chloride 5 mg 5 mg PO DAILY #30 tab 06/13/21 tablet,extended release 24 hr polyethylene glycol 3350 17 gram 17 g PO DAILY #30 ea 06/13/21 oral powder packet sodium zirconium cyclosilicate 5 5 g PO DAILY #30 ea 06/13/21 gram oral powder packet (Lokelma) torsemide 20 mg tablet 40 mg PO DAILY #60 tab 06/13/21 <Lester Link MD - Last Filed: 07/01/21 14:06> Allergies/adverse reactions: Allergies Allergy/AdvReac Type Severity Reaction Status Date / Time metformin [METFORMIN] Allergy Severe HIVES Verified 07/01/21 11:18 canagliflozin [From Invokana] Allergy Hives Verified 07/01/21 11:18 <Lester Link MD - Last Filed: 07/01/21 14:06> Review of Systems Review of Systems: Yes all other systems are reviewed and are negative <Lester Link MD - Last Filed: 07/01/21 14:06> [facility] Past Medical History Medical History: Medical History Acute kidney injury superimposed on chronic kidney disease Acute on chronic diastolic (congestive) heart failure Alteration in skin integrity due to moisture Anemia Bladder outlet obstruction CKD (chronic kidney disease) stage 4, GFR 15-29 ml/min Clostridium difficile diarrhea Detrusor dysfunction Esophagitis Essential hypertension Heart failure with preserved ejection fraction Hyperkalemia Hypothyroidism IBS (irritable bowel syndrome) Morbid obesity Type 2 diabetes mellitus with obesity UTI (urinary tract infection) <Lester Link MD - Last Filed: 07/01/21 14:06> Surgical History: Surgical History History of tubal ligation <Lester Link MD - Last Filed: 07/01/21 14:06> Family History Family History: Family History Father Diabetes Mother Diabetes Hypertension Breast cancer Family/Other Breast cancer Uterine cancer <Lester Link MD - Last Filed: 07/01/21 14:06> Social History Social History: Social History Household Members: None Housing: Apartment Do you presently have visiting nurse or other home services: Yes Alcohol intake: never Patient Tobacco Use Status: Never used Tobacco e-Cigarette/Vaping Use: Never Used Second Hand Smoke Exposure: No Use of substances other than those prescribed or required for medical reasons: No Advance Directives: Yes Advance Directives on File: Yes Advance Directives Date on File: 10/09/20 Patient : No service: No Current occupational status: disabled <Lester Link MD - Last Filed: 07/01/21 14:06> Physical Exam Vital Signs: Vital Signs: Last Vital Signs Temp 98.9 F 07/03/21 06:00 Pulse 74 07/03/21 06:00 Resp 12 07/03/21 06:00 BP 138/64 07/03/21 06:00 Pulse Ox 97 07/03/21 06:00 Body Mass Index 68.8 <Lester Link MD - Last Filed: 07/01/21 14:06> Vital Signs: Last Vital Signs Temp 98.9 F 07/03/21 06:00 Pulse 74 07/03/21 06:00 Resp 12 07/03/21 06:00 BP 138/64 07/03/21 06:00 Pulse Ox 97 07/03/21 06:00 Body Mass Index 68.8 <MAKENNA Tam - Last Filed: 07/02/21 11:45> Vital Signs: Last Vital Signs Temp 98.9 F 07/03/21 06:00 Pulse 74 07/03/21 06:00 Resp 12 07/03/21 06:00 BP 138/64 07/03/21 06:00 Pulse Ox 97 07/03/21 06:00 Body Mass Index 68.8 <MAKENNA Mason - Last Filed: 07/03/21 08:11> Const: Other: Very pleasant cooperative female patient, she is oriented to person and place, she does not appear to be in distress, she answers all q uestions appropriately. <Lester Link MD - Last Filed: 07/01/21 14:06> HENMT: Head: Yes normal to inspection, Yes normocephalic and Yes atraumatic <Lester Link MD - Last Filed: 07/01/21 14:06> Ears: external ears normal <Lester Link MD - Last Filed: 07/01/21 14:06> General nose exam: Normal external nose present <Lester Link MD - Last Filed: 07/01/21 14:06> Face and sinus: Yes normal facial exam <Lester Link MD - Last Filed: 07/01/21 14:06> Mouth: Normal oral and palatal mucosa present <MD Mamta Taylor Last Filed: 07/01/21 14:06> Throat: Yes posterior oropharynx normal <MD Mamta Taylor Last Filed: 07/01/21 14:06> Eyes: General: appearance normal, both eyes and all related structures <MD Mamta Taylor Last Filed: 07/01/21 14:06> Pupils: Equal, round and reactive pupils present <MD Mamta Taylor Last Filed: 07/01/21 14:06> Neck: Neck: Yes normal visual inspection, Yes no lymphadenopathy, Yes trachea midline and Yes supple <MD Mamta Taylor Last Filed: 07/01/21 14:06> Chest: Chest palpation & inspection: normal inspection of the chest and normal palpation of entire chest wall <MD Mamta Taylor Last Filed: 07/01/21 14:06> Resp: Effort & Inspection: normal respiratory effort and able to speak in complete sentences <MD Mamta Taylor Last Filed: 07/01/21 14:06> Auscultation: clear to auscultation bilaterally <MD Mamta Taylor Last Filed: 07/01/21 14:06> Cardio: Rate: regular rate <MD Mamta Taylor Last Filed: 07/01/21 14:06> Rhythm: regular rhythm <MD Mamta Taylor Last Filed: 07/01/21 14:06> Heart sounds: S1 normal heart sound present, S2 normal heart sound present and no murmurs <MD Mamta Taylor Last Filed: 07/01/21 14:06> GI: Inspection: Yes normal to inspection, Yes Abdominal panniculus present and Yes obesity <MD Mamta Taylor Last Filed: 07/01/21 14:06> Palpation (GI): Soft to palpation, Tenderness to palpation present (GI) (Mild diffuse tenderness) and no guarding <MD Mamta Taylor Last Filed: 07/01/21 14:06> Auscultation: normal bowel sounds <Lester Link MD - Last Filed: 07/01/21 14:06> : General: Yes no CVA tenderness <Lester Link MD - Last Filed: 07/01/21 14:06> Back/Spine/Pelvis: Back: no CVA tenderness <Lester Link MD - Last Filed: 07/01/21 14:06> Skin: General skin exam: no rashes or lesions noted <Lester Link MD - Last Filed: 07/01/21 14:06> Neuro: Cranial nerves: Yes CN's II-XII intact bilaterally and Yes Equal, round and reactive pupils present <Lester Link MD - Last Filed: 07/01/21 14:06> Cognition (Neuro): normal cognition <Lester Link MD - Last Filed: 07/01/21 14:06> Motor exam (neuro): 5/5 motor strength present throughout <Lester Link MD - Last Filed: 07/01/21 14:06> Extrem: General: Yes normal to inspection <Lester Link MD - Last Filed: 07/01/21 14:06> Psych: Appearance: grossly normal <Lester Link MD - Last Filed: 07/01/21 14:06> Speech and movement: Normal speech and movement present <Lester Link MD - Last Filed: 07/01/21 14:06> Affect: normal affect <Lester Link MD - Last Filed: 07/01/21 14:06> Attitude: cooperative <Lester Link MD - Last Filed: 07/01/21 14:06> Thought process: Normal thought process present <Lester Link MD - Last Filed: 07/01/21 14:06> Thought content: Normal thought content present <Lester Link MD - Last Filed: 07/01/21 14:06> Course Course Course Narrative: 61-year-old female who presents emergency department for evaluation of weakness, unable to get out of bed, increased swelling in her abdomen and lower extremities as well as dysuria. The patient was hospitalized for similar symptoms from 05/31/2021 until 06/13/2021 and then was sent to a acute rehab facility for deconditioning. The patient has been home for 3 days and is having difficulty caring for herself despite COUNSELLORS help. Physical examination was unremarkable. I did order a laboratory evaluation includes CBC, CMP, BNP, urinalysis and COVID-19 test. I will also consult case management in the event that there is no acute medical process that can be found. 1353: The patient's laboratory evaluation revealed a low H&H of 8.5 and 26, this is chronic. [place] [address]. The patient's BUN creatinine are elevated at 39 and 2.14, this is chronic. Chest x-ray is consistent with mild CHF but it does appear to be improved compared to her previous chest x-ray. BNP is elevated at 520. Patient's urinalysis was positive for blood and protein but negative for leukocyte esterase and nitrates. Microscopic revealed 9 RBCs, 9 WBCs and no bacteria. At this time, I believe that the patient may have some mild CHF but this can be treated with torsemide 40 mg orally. I will consult case management to see if they can help this patient with her social situation and placement due to her deconditioning. 1405: Physician observation started at 1405. Patient placed in physician observation because the patient needed more time for case management and PT evaluation for placement in a alf facility. At the time observation was started the patient's vitals were stable, patient is alert and oriented , Neuro: nonfocal, CV RRR, Lungs clear. <Lester Link MD - Last Filed: 07/01/21 14:06> Reevaluation(s) Reevaluation #1: Physician observation continued. Vital signs are stable, no complaints overnight, labs reviewed. Meds reconciled this morning, patient is pending case management placement for long-term care <MAKENNA Tam - Last Filed: 07/02/21 11:45> Time: 11:43 <MAKENNA Tam - Last Filed: 07/02/21 11:45> Medical Decision Making Lab Data Result diagrams: : 07/01/21 12:47 07/01/21 12:47 <Lester Link MD - Last Filed: 07/01/21 14:06> Labs: Lab Results 07/01/21 07/01/21 07/01/21 Range/Units 12:39 12:39 12:47 WBC 11.0 H (4.8-10.8) X10*3/uL RBC 2.78 L (4.20-5.50) X10*6/uL Hgb 8.5 L (12.0-16.0) g/dl Hct 26.6 L (37.0-47.0) % MCV 95.7 (80.0-98.0) fL MCH 30.6 (27.0-33.0) pg MCHC 32.0 (31.0-35.0) g/dl RDW 12.8 (11.0-16.0) % Plt Count 266 (160-400) X10*3/uL MPV 9.4 (9.4-12.3) fL Immature Gran % (Auto) 0.5 H (0.0-0.4) % Neut % (Auto) 68.6 (45-73) % Lymph % (Auto) 17.7 L (20-40) % [place] % (Auto) 9.9 (2-11) % Eos % (Auto) 2.9 (0-4) % Baso % (Auto) 0.4 (0-2) % Lymph # (Auto) 1.9 (1.2-4.9) X10*3/uL [place] # (Auto) 1.1 (0.1-1.2) X10*3/uL Eos # (Auto) 0.3 (0.0-0.4) X10*3/uL Baso # (Auto) 0.0 (0.0-0.2) X10*3/uL Abs Immat Gran (auto) 0.05 H (0.00-0.03) X10*3/uL Absolute Neuts (auto) 7.55 (2.0-8.3) x10*3/uL Absolute Nucleated RBC 0.000 (0.0-0.012) X10*3/uL Nucleated RBC % (auto) 0.0 (0.0-0.2) /100WBC Sodium (135-145) mmol/L Potassium (3.3-5.1) mmol/L Chloride (96-108) mmol/L Carbon Dioxide (22-29) mmol/L Anion Gap (12-20) BUN (9-16) mg/dL Creatinine (0.5-1.4) mg/dL Estim Creat Clear Calc Estimated GFR POC Glucose (60-115) mg/dL Random Glucose (60-115) mg/dL Calcium (8.4-10.2) mg/dL Total Bilirubin (0.0-1.0) mg/dL AST (5-31) U/L ALT (0-31) U/L Alkaline Phosphatase (39-117) U/L B-Natriuretic Peptide (<100) pg/mL Total Protein (6.5-8.0) g/dL Albumin (3.5-5.0) g/dL Urine Color YELLOW Urine Appearance CLEAR Urine pH 6.0 (5.0-8.0) Ur Specific [place] 1.010 (1.005-1.025) Urine Protein 3+ H (NEG-TRACE) MG/DL Urine Glucose (UA) 100 H (NEG) MG/DL Urine Ketones NEG (NEG) MG/DL Urine Blood 2+ H (NEG) Urine Nitrite NEG (NEG) Ur Leukocyte Esterase NEG (NEG) Urine RBC 5-9 H (0) /HPF Urine WBC 5-9 H (0-4) /HPF Urine WBC Clumps NOTED Ur Squamous Epith Cells 1+ /LPF Urine Bacteria NONE /LPF Urine Mucus TRACE /LPF COVID-19 (SERA) Negative (Negative) COVID-19 Clin Com See Note 07/01/21 07/01/21 07/01/21 Range/Units 12:47 12:47 23:23 WBC (4.8-10.8) X10*3/uL RBC (4.20-5.50) X10*6/uL Hgb (12.0-16.0) g/dl Hct (37.0-47.0) % MCV (80.0-98.0) fL MCH (27.0-33.0) pg MCHC (31.0-35.0) g/dl RDW (11.0-16.0) % Plt Count (160-400) X10*3/uL MPV (9.4-12.3) fL Immature Gran % (Auto) (0.0-0.4) % Neut % (Auto) (45-73) % Lymph % (Auto) (20-40) % [place] % (Auto) (2-11) % Eos % (Auto) (0-4) % Baso % (Auto) (0-2) % Lymph # (Auto) (1.2-4.9) X10*3/uL [place] # (Auto) (0.1-1.2) X10*3/uL Eos # (Auto) (0.0-0.4) X10*3/uL Baso # (Auto) (0.0-0.2) X10*3/uL Abs Immat Gran (auto) (0.00-0.03) X10*3/uL Absolute Neuts (auto) (2.0-8.3) x10*3/uL Absolute Nucleated RBC (0.0-0.012) X10*3/uL Nucleated RBC % (auto) (0.0-0.2) /100WBC Sodium 141 (135-145) mmol/L Potassium 4.4 (3.3-5.1) mmol/L Chloride 110 H (96-108) mmol/L Carbon Dioxide 23 (22-29) mmol/L Anion Gap 12 (12-20) BUN 39 H (9-16) mg/dL Creatinine 2.14 H (0.5-1.4) mg/dL Estim Creat Clear Calc 47.9 Estimated GFR 23 POC Glucose 141 H (60-115) mg/dL Random Glucose 125 H (60-115) mg/dL Calcium 8.0 L (8.4-10.2) mg/dL Total Bilirubin 0.4 (0.0-1.0) mg/dL AST 17 (5-31) U/L ALT 10 (0-31) U/L Alkaline Phosphatase 121 H D (39-117) U/L B-Natriuretic Peptide 520 H (<100) pg/mL Total Protein 5.7 L (6.5-8.0) g/dL Albumin 2.6 L (3.5-5.0) g/dL Urine Color Urine Appearance Urine pH (5.0-8.0) Ur Specific [place] (1.005-1.025) Urine Protein (NEG-TRACE) MG/DL Urine Glucose (UA) (NEG) MG/DL Urine Ketones (NEG) MG/DL Urine Blood (NEG) Urine Nitrite (NEG) Ur Leukocyte Esterase (NEG) Urine RBC (0) /HPF Urine WBC (0-4) /HPF Urine WBC Clumps Ur Squamous Epith Cells /LPF Urine Bacteria /LPF Urine Mucus /LPF COVID-19 (SERA) (Negative) COVID-19 Clin Com 07/02/21 07/02/21 07/02/21 Range/Units 12:33 16:24 21:37 WBC (4.8-10.8) X10*3/uL RBC (4.20-5.50) X10*6/uL Hgb (12.0-16.0) g/dl Hct (37.0-47.0) % MCV (80.0-98.0) fL MCH (27.0-33.0) pg MCHC (31.0-35.0) g/dl RDW (11.0-16.0) % Plt Count (160-400) X10*3/uL MPV (9.4-12.3) fL Immature Gran % (Auto) (0.0-0.4) % Neut % (Auto) (45-73) % Lymph % (Auto) (20-40) % [place] % (Auto) (2-11) % Eos % (Auto) (0-4) % Baso % (Auto) (0-2) % Lymph # (Auto) (1.2-4.9) X10*3/uL [place] # (Auto) (0.1-1.2) X10*3/uL Eos # (Auto) (0.0-0.4) X10*3/uL Baso # (Auto) (0.0-0.2) X10*3/uL Abs Immat Gran (auto) (0.00-0.03) X10*3/uL Absolute Neuts (auto) (2.0-8.3) x10*3/uL Absolute Nucleated RBC (0.0-0.012) X10*3/uL Nucleated RBC % (auto) (0.0-0.2) /100WBC Sodium (135-145) mmol/L Potassium (3.3-5.1) mmol/L Chloride (96-108) mmol/L Carbon Dioxide (22-29) mmol/L Anion Gap (12-20) BUN (9-16) mg/dL Creatinine (0.5-1.4) mg/dL Estim Creat Clear Calc Estimated GFR POC Glucose 159 H 181 H 113 (60-115) mg/dL Random Glucose (60-115) mg/dL Calcium (8.4-10.2) mg/dL Total Bilirubin (0.0-1.0) mg/dL AST (5-31) U/L ALT (0-31) U/L Alkaline Phosphatase (39-117) U/L B-Natriuretic Peptide (<100) pg/mL Total Protein (6.5-8.0) g/dL Albumin (3.5-5.0) g/dL Urine Color Urine Appearance Urine pH (5.0-8.0) Ur Specific [place] (1.005-1.025) Urine Protein (NEG-TRACE) MG/DL Urine Glucose (UA) (NEG) MG/DL Urine Ketones (NEG) MG/DL Urine Blood (NEG) Urine Nitrite (NEG) Ur Leukocyte Esterase (NEG) Urine RBC (0) /HPF Urine WBC (0-4) /HPF Urine WBC Clumps Ur Squamous Epith Cells /LPF Urine Bacteria /LPF Urine Mucus /LPF COVID-19 (SERA) (Negative) COVID-19 Clin Com <Lester Link MD - Last Filed: 07/01/21 14:06> Lab Results 07/01/21 07/01/21 07/01/21 Range/Units 12:39 12:39 12:47 WBC 11.0 H (4.8-10.8) X10*3/uL RBC 2.78 L (4.20-5.50) X10*6/uL Hgb 8.5 L (12.0-16.0) g/dl Hct 26.6 L (37.0-47.0) % MCV 95.7 (80.0-98.0) fL MCH 30.6 (27.0-33.0) pg MCHC 32.0 (31.0-35.0) g/dl RDW 12.8 (11.0-16.0) % Plt Count 266 (160-400) X10*3/uL MPV 9.4 (9.4-12.3) fL Immature Gran % (Auto) 0.5 H (0.0-0.4) % Neut % (Auto) 68.6 (45-73) % Lymph % (Auto) 17.7 L (20-40) % [place] % (Auto) 9.9 (2-11) % Eos % (Auto) 2.9 (0-4) % Baso % (Auto) 0.4 (0-2) % Lymph # (Auto) 1.9 (1.2-4.9) X10*3/uL [place] # (Auto) 1.1 (0.1-1.2) X10*3/uL Eos # (Auto) 0.3 (0.0-0.4) X10*3/uL Baso # (Auto) 0.0 (0.0-0.2) X10*3/uL Abs Immat Gran (auto) 0.05 H (0.00-0.03) X10*3/uL Absolute Neuts (auto) 7.55 (2.0-8.3) x10*3/uL Absolute Nucleated RBC 0.000 (0.0-0.012) X10*3/uL Nucleated RBC % (auto) 0.0 (0.0-0.2) /100WBC Sodium (135-145) mmol/L Potassium (3.3-5.1) mmol/L Chloride (96-108) mmol/L Carbon Dioxide (22-29) mmol/L Anion Gap (12-20) BUN (9-16) mg/dL Creatinine (0.5-1.4) mg/dL Estim Creat Clear Calc Estimated GFR POC Glucose (60-115) mg/dL Random Glucose (60-115) mg/dL Calcium (8.4-10.2) mg/dL Total Bilirubin (0.0-1.0) mg/dL AST (5-31) U/L ALT (0-31) U/L Alkaline Phosphatase (39-117) U/L B-Natriuretic Peptide (<100) pg/mL Total Protein (6.5-8.0) g/dL Albumin (3.5-5.0) g/dL Urine Color YELLOW Urine Appearance CLEAR Urine pH 6.0 (5.0-8.0) Ur Specific [place] 1.010 (1.005-1.025) Urine Protein 3+ H (NEG-TRACE) MG/DL Urine Glucose (UA) 100 H (NEG) MG/DL Urine Ketones NEG (NEG) MG/DL Urine Blood 2+ H (NEG) Urine Nitrite NEG (NEG) Ur Leukocyte Esterase NEG (NEG) Urine RBC 5-9 H (0) /HPF Urine WBC 5-9 H (0-4) /HPF Urine WBC Clumps NOTED Ur Squamous Epith Cells 1+ /LPF Urine Bacteria NONE /LPF Urine Mucus TRACE /LPF COVID-19 (SERA) Negative (Negative) COVID-19 Clin Com See Note 07/01/21 07/01/21 07/01/21 Range/Units 12:47 12:47 23:23 WBC (4.8-10.8) X10*3/uL RBC (4.20-5.50) X10*6/uL Hgb (12.0-16.0) g/dl Hct (37.0-47.0) % MCV (80.0-98.0) fL MCH (27.0-33.0) pg MCHC (31.0-35.0) g/dl RDW (11.0-16.0) % Plt Count (160-400) X10*3/uL MPV (9.4-12.3) fL Immature Gran % (Auto) (0.0-0.4) % Neut % (Auto) (45-73) % Lymph % (Auto) (20-40) % [place] % (Auto) (2-11) % Eos % (Auto) (0-4) % Baso % (Auto) (0-2) % Lymph # (Auto) (1.2-4.9) X10*3/uL [place] # (Auto) (0.1-1.2) X10*3/uL Eos # (Auto) (0.0-0.4) X10*3/uL Baso # (Auto) (0.0-0.2) X10*3/uL Abs Immat Gran (auto) (0.00-0.03) X10*3/uL Absolute Neuts (auto) (2.0-8.3) x10*3/uL Absolute Nucleated RBC (0.0-0.012) X10*3/uL Nucleated RBC % (auto) (0.0-0.2) /100WBC Sodium 141 (135-145) mmol/L Potassium 4.4 (3.3-5.1) mmol/L Chloride 110 H (96-108) mmol/L Carbon Dioxide 23 (22-29) mmol/L Anion Gap 12 (12-20) BUN 39 H (9-16) mg/dL Creatinine 2.14 H (0.5-1.4) mg/dL Estim Creat Clear Calc 47.9 Estimated GFR 23 POC Glucose 141 H (60-115) mg/dL Random Glucose 125 H (60-115) mg/dL Calcium 8.0 L (8.4-10.2) mg/dL Total Bilirubin 0.4 (0.0-1.0) mg/dL AST 17 (5-31) U/L ALT 10 (0-31) U/L Alkaline Phosphatase 121 H D (39-117) U/L B-Natriuretic Peptide 520 H (<100) pg/mL Total Protein 5.7 L (6.5-8.0) g/dL Albumin 2.6 L (3.5-5.0) g/dL Urine Color Urine Appearance Urine pH (5.0-8.0) Ur Specific [place] (1.005-1.025) Urine Protein (NEG-TRACE) MG/DL Urine Glucose (UA) (NEG) MG/DL Urine Ketones (NEG) MG/DL Urine Blood (NEG) Urine Nitrite (NEG) Ur Leukocyte Esterase (NEG) Urine RBC (0) /HPF Urine WBC (0-4) /HPF Urine WBC Clumps Ur Squamous Epith Cells /LPF Urine Bacteria /LPF Urine Mucus /LPF COVID-19 ([facility]A) (Negative) COVID-19 Clin Com 07/02/21 07/02/21 07/02/21 Range/Units 12:33 16:24 21:37 WBC (4.8-10.8) X10*3/uL RBC (4.20-5.50) X10*6/uL Hgb (12.0-16.0) g/dl Hct (37.0-47.0) % MCV (80.0-98.0) fL MCH (27.0-33.0) pg MCHC (31.0-35.0) g/dl RDW (11.0-16.0) % Plt Count (160-400) X10*3/uL MPV (9.4-12.3) fL Immature Gran % (Auto) (0.0-0.4) % Neut % (Auto) (45-73) % Lymph % (Auto) (20-40) % [place] % (Auto) (2-11) % Eos % (Auto) (0-4) % Baso % (Auto) (0-2) % Lymph # (Auto) (1.2-4.9) X10*3/uL [place] # (Auto) (0.1-1.2) X10*3/uL Eos # (Auto) (0.0-0.4) X10*3/uL Baso # (Auto) (0.0-0.2) X10*3/uL Abs Immat Gran (auto) (0.00-0.03) X10*3/uL Absolute Neuts (auto) (2.0-8.3) x10*3/uL Absolute Nucleated RBC (0.0-0.012) X10*3/uL Nucleated RBC % (auto) (0.0-0.2) /100WBC Sodium (135-145) mmol/L Potassium (3.3-5.1) mmol/L Chloride (96-108) mmol/L Carbon Dioxide (22-29) mmol/L Anion Gap (12-20) BUN (9-16) mg/dL Creatinine (0.5-1.4) mg/dL Estim Creat Clear Calc Estimated GFR POC Glucose 159 H 181 H 113 (60-115) mg/dL Random Glucose (60-115) mg/dL Calcium (8.4-10.2) mg/dL Total Bilirubin (0.0-1.0) mg/dL AST (5-31) U/L ALT (0-31) U/L Alkaline Phosphatase (39-117) U/L B-Natriuretic Peptide (<100) pg/mL Total Protein (6.5-8.0) g/dL Albumin (3.5-5.0) g/dL Urine Color Urine Appearance Urine pH (5.0-8.0) Ur Specific [place] (1.005-1.025) Urine Protein (NEG-TRACE) MG/DL Urine Glucose (UA) (NEG) MG/DL Urine Ketones (NEG) MG/DL Urine Blood (NEG) Urine Nitrite (NEG) Ur Leukocyte Esterase (NEG) Urine RBC (0) /HPF Urine WBC (0-4) /HPF Urine WBC Clumps Ur Squamous Epith Cells /LPF Urine Bacteria /LPF Urine Mucus /LPF COVID-19 ([facility]) (Negative) COVID-19 Clin Com <MAKENNA Tam - Last Filed: 07/02/21 11:45> Lab Results 07/01/21 07/01/21 07/01/21 Range/Units 12:39 12:39 12:47 WBC 11.0 H (4.8-10.8) X10*3/uL RBC 2.78 L (4.20-5.50) X10*6/uL Hgb 8.5 L (12.0-16.0) g/dl Hct 26.6 L (37.0-47.0) % MCV 95.7 (80.0-98.0) fL MCH 30.6 (27.0-33.0) pg MCHC 32.0 (31.0-35.0) g/dl RDW 12.8 (11.0-16.0) % Plt Count 266 (160-400) X10*3/uL MPV 9.4 (9.4-12.3) fL Immature Gran % (Auto) 0.5 H (0.0-0.4) % Neut % (Auto) 68.6 (45-73) % Lymph % (Auto) 17.7 L (20-40) % [place] % (Auto) 9.9 (2-11) % Eos % (Auto) 2.9 (0-4) % Baso % (Auto) 0.4 (0-2) % Lymph # (Auto) 1.9 (1.2-4.9) X10*3/uL [place] # (Auto) 1.1 (0.1-1.2) X10*3/uL Eos # (Auto) 0.3 (0.0-0.4) X10*3/uL Baso # (Auto) 0.0 (0.0-0.2) X10*3/uL Abs Immat Gran (auto) 0.05 H (0.00-0.03) X10*3/uL Absolute Neuts (auto) 7.55 (2.0-8.3) x10*3/uL Absolute Nucleated RBC 0.000 (0.0-0.012) X10*3/uL Nucleated RBC % (auto) 0.0 (0.0-0.2) /100WBC Sodium (135-145) mmol/L Potassium (3.3-5.1) mmol/L Chloride (96-108) mmol/L Carbon Dioxide (22-29) mmol/L Anion Gap (12-20) BUN (9-16) mg/dL Creatinine (0.5-1.4) mg/dL Estim Creat Clear Calc Estimated GFR POC Glucose (60-115) mg/dL Random Glucose (60-115) mg/dL Calcium (8.4-10.2) mg/dL Total Bilirubin (0.0-1.0) mg/dL AST (5-31) U/L ALT (0-31) U/L Alkaline Phosphatase (39-117) U/L B-Natriuretic Peptide (<100) pg/mL Total Protein (6.5-8.0) g/dL Albumin (3.5-5.0) g/dL Urine Color YELLOW Urine Appearance CLEAR Urine pH 6.0 (5.0-8.0) Ur Specific [place] 1.010 (1.005-1.025) Urine Protein 3+ H (NEG-TRACE) MG/DL Urine Glucose (UA) 100 H (NEG) MG/DL Urine Ketones NEG (NEG) MG/DL Urine Blood 2+ H (NEG) Urine Nitrite NEG (NEG) Ur Leukocyte Esterase NEG (NEG) Urine RBC 5-9 H (0) /HPF Urine WBC 5-9 H (0-4) /HPF Urine WBC Clumps NOTED Ur Squamous Epith Cells 1+ /LPF Urine Bacteria NONE /LPF Urine Mucus TRACE /LPF COVID-19 (SERA) Negative (Negative) COVID-19 Clin Com See Note 07/01/21 07/01/21 07/01/21 Range/Units 12:47 12:47 23:23 WBC (4.8-10.8) X10*3/uL RBC (4.20-5.50) X10*6/uL Hgb (12.0-16.0) g/dl Hct (37.0-47.0) % MCV (80.0-98.0) fL MCH (27.0-33.0) pg MCHC (31.0-35.0) g/dl RDW (11.0-16.0) % Plt Count (160-400) X10*3/uL MPV (9.4-12.3) fL Immature Gran % (Auto) (0.0-0.4) % Neut % (Auto) (45-73) % Lymph % (Auto) (20-40) % [place] % (Auto) (2-11) % Eos % (Auto) (0-4) % Baso % (Auto) (0-2) % Lymph # (Auto) (1.2-4.9) X10*3/uL [place] # (Auto) (0.1-1.2) X10*3/uL Eos # (Auto) (0.0-0.4) X10*3/uL Baso # (Auto) (0.0-0.2) X10*3/uL Abs Immat Gran (auto) (0.00-0.03) X10*3/uL Absolute Neuts (auto) (2.0-8.3) x10*3/uL Absolute Nucleated RBC (0.0-0.012) X10*3/uL Nucleated RBC % (auto) (0.0-0.2) /100WBC Sodium 141 (135-145) mmol/L Potassium 4.4 (3.3-5.1) mmol/L Chloride 110 H (96-108) mmol/L Carbon Dioxide 23 (22-29) mmol/L Anion Gap 12 (12-20) BUN 39 H (9-16) mg/dL Creatinine 2.14 H (0.5-1.4) mg/dL Estim Creat Clear Calc 47.9 Estimated GFR 23 POC Glucose 141 H (60-115) mg/dL Random Glucose 125 H (60-115) mg/dL Calcium 8.0 L (8.4-10.2) mg/dL Total Bilirubin 0.4 (0.0-1.0) mg/dL AST 17 (5-31) U/L ALT 10 (0-31) U/L Alkaline Phosphatase 121 H D (39-117) U/L B-Natriuretic Peptide 520 H (<100) pg/mL Total Protein 5.7 L (6.5-8.0) g/dL Albumin 2.6 L (3.5-5.0) g/dL Urine Color Urine Appearance Urine pH (5.0-8.0) Ur Specific [place] (1.005-1.025) Urine Protein (NEG-TRACE) MG/DL Urine Glucose (UA) (NEG) MG/DL Urine Ketones (NEG) MG/DL Urine Blood (NEG) Urine Nitrite (NEG) Ur Leukocyte Esterase (NEG) Urine RBC (0) /HPF Urine WBC (0-4) /HPF Urine WBC Clumps Ur Squamous Epith Cells /LPF Urine Bacteria /LPF Urine Mucus /LPF COVID-19 (SERA) (Negative) COVID-19 Clin Com 07/02/21 07/02/21 07/02/21 Range/Units 12:33 16:24 21:37 WBC (4.8-10.8) X10*3/uL RBC (4.20-5.50) X10*6/uL Hgb (12.0-16.0) g/dl Hct (37.0-47.0) % MCV (80.0-98.0) fL MCH (27.0-33.0) pg MCHC (31.0-35.0) g/dl RDW (11.0-16.0) % Plt Count (160-400) X10*3/uL MPV (9.4-12.3) fL Immature Gran % (Auto) (0.0-0.4) % Neut % (Auto) (45-73) % Lymph % (Auto) (20-40) % [place] % (Auto) (2-11) % Eos % (Auto) (0-4) % Baso % (Auto) (0-2) % Lymph # (Auto) (1.2-4.9) X10*3/uL [place] # (Auto) (0.1-1.2) X10*3/uL Eos # (Auto) (0.0-0.4) X10*3/uL Baso # (Auto) (0.0-0.2) X10*3/uL Abs Immat Gran (auto) (0.00-0.03) X10*3/uL Absolute Neuts (auto) (2.0-8.3) x10*3/uL Absolute Nucleated RBC (0.0-0.012) X10*3/uL Nucleated RBC % (auto) (0.0-0.2) /100WBC Sodium (135-145) mmol/L Potassium (3.3-5.1) mmol/L Chloride (96-108) mmol/L Carbon Dioxide (22-29) mmol/L Anion Gap (12-20) BUN (9-16) mg/dL Creatinine (0.5-1.4) mg/dL Estim Creat Clear Calc Estimated GFR POC Glucose 159 H 181 H 113 (60-115) mg/dL Random Glucose (60-115) mg/dL Calcium (8.4-10.2) mg/dL Total Bilirubin (0.0-1.0) mg/dL AST (5-31) U/L ALT (0-31) U/L Alkaline Phosphatase (39-117) U/L B-Natriuretic Peptide (<100) pg/mL Total Protein (6.5-8.0) g/dL Albumin (3.5-5.0) g/dL Urine Color Urine Appearance Urine pH (5.0-8.0) Ur Specific [place] (1.005-1.025) Urine Protein (NEG-TRACE) MG/DL Urine Glucose (UA) (NEG) MG/DL Urine Ketones (NEG) MG/DL Urine Blood (NEG) Urine Nitrite (NEG) Ur Leukocyte Esterase (NEG) Urine RBC (0) /HPF Urine WBC (0-4) /HPF Urine WBC Clumps Ur Squamous Epith Cells /LPF Urine Bacteria /LPF Urine Mucus /LPF COVID-19 (SERA) (Negative) COVID-19 Clin Com <MAKENNA Mason - Last Filed: 07/03/21 08:11> Discharge Plan Discharge Clinical Impression: CHF (congestive heart failure) Qualifiers: Heart failure type: unspecified Heart failure chronicity: unspecified Qualified Code(s): I50.9 - Heart failure, unspecified <Lester Link MD - Last Filed: 07/01/21 14:06> Prescriptions: No Action ropinirole 0.5 mg tablet 0.5 mg PO BEDTIME Qty: 90 RF: 2 albuterol sulfate 90 mcg/actuation HFA aerosol inhaler 2 puff inhalation Q4H PRN (Reason: bronchospasm) 30 Days Qty: 8.5 RF: 5 (DME) insulin syringe-needle U-100 [BD Insulin Syringe Ultra-Fine] 1 mL 30 gauge x 1/2 syringe See Rx Instructions .ROUTE .MEDSUPPLY Qty: 100 RF: 3 (DME) blood sugar diagnostic Strip See Rx Instructions ea .ROUTE .MEDSUPPLY Qty: 200 RF: 8 (DME) Accu-Chek Berna Plus test strp Strip See Rx Instructions .Route Qty: 300 RF: 8 Lantus U-100 Insulin 100 unit/mL Solution 50 unit SUBCUT BID RF: 0 Rayaldee 30 mcg capsule,extended release 24 hr 1 cap PO DAILY RF: 0 hydralazine 25 mg Tablet 25 mg PO TID Qty: 90 RF: 0 aspirin 81 mg Tablet,Delayed Release (Dr/Ec) 81 mg PO DAILY Qty: 30 RF: 0 amlodipine 10 mg Tablet 10 mg PO DAILY Qty: 30 RF: 0 nitroglycerin [Nitrostat] 0.4 mg Tablet, Sublingual 0.4 mg sublingual Q5MX3 PRN (Reason: Chest Pain) Qty: 30 RF: 0 Lokelma 5 gram Powder In Packet 5 g PO DAILY Qty: 30 RF: 0 torsemide 20 mg Tablet 40 mg PO DAILY Qty: 60 RF: 0 docusate sodium 100 mg Capsule 200 mg PO BEDTIME Qty: 60 RF: 0 polyethylene glycol 3350 17 gram Powder In Packet 17 g PO DAILY Qty: 30 RF: 0 oxybutynin chloride 5 mg Tablet Extended Release 24hr 5 mg PO DAILY Qty: 30 RF: 0 omeprazole 20 mg Capsule,Delayed Release(Dr/Ec) 20 mg PO DAILY@0630 Qty: 30 RF: 0 ondansetron 4 mg Tablet,Disintegrating 4 mg translingual TIDAC PRN (Reason: nausea) Qty: 12 RF: 0 Humulin R Regular U-100 Insuln 100 unit/mL Solution 1 sliding scale dose SUBCUT USEASDIRECTD RF: 0 <Lester Link MD - Last Filed: 07/01/21 14:06>
--- NOTE | 2021-07-01 12:18 | ECG_ITS ---
Test Reason : DYSPNEA Blood Pressure : / mmHG Vent. Rate : 072 BPM Atrial Rate : 000 BPM P-R Int : 000 ms QRS Dur : 086 ms QT Int : 390 ms P-R-T Axes : 000 -21 037 degrees QTc Int : 427 ms Normal sinus rhythm Nonspecific T wave abnormality Low voltage QRS Abnormal ECG When compared with ECG of 01-JUN-2021 20:10, No significant changes seen Referred By: Lester Link Electronically Signed By:PRANAV SCHAEFER MD
[2021-07-01 12:45] LABS: Appearance Urine CLEAR; Color Urine YELLOW; Glucose Urine UA 100 MG/DL (NEG); Leukocyte Esterase Urine NEG (NEG); Nitrite Urine NEG (NEG); UACC Culture Trigger NO; Urine Blood 2+ (NEG); Urine Ketones NEG (NEG); Urine Protein 3+ MG/DL (NEG-TRACE)
[2021-07-01 12:50] LABS: MANUAL DIFF FLAG NO
[2021-07-01 12:52] LABS: Basophils Percent Auto 0.4 % (0-2); Eosinophils Absolute Auto 0.3 X10*3/uL (0.0-0.4); Eosinophils Percent Auto 2.9 % (0-4); Hematocrit 26.6 % (37.0-47.0); Hemoglobin 8.5 g/dl (12.0-16.0); Imm Gran Abs Auto 0.05 X10*3/uL (0.00-0.03); Imm Gran Pct Auto 0.5 % (0.0-0.4); Lymphocytes Absolute Auto 1.9 X10*3/uL (1.2-4.9); Lymphocytes Percent Auto 17.7 % (20-40); Mean Corpuscular Hemoglobin 30.6 pg (27.0-33.0); Mean Corpuscular Volume 95.7 fL (80.0-98.0); Mean Platelet Volume 9.4 fL (9.4-12.3); Monocytes Absolute Auto 1.1 X10*3/uL (0.1-1.2); Monocytes Percent Auto 9.9 % (2-11); Neutrophils Absolute Auto 7.55 x10*3/uL (2.0-8.3); Neutrophils Percent Auto 68.6 % (45-73); Platelet Count 266 X10*3/uL (160-400); Red Blood Count 2.78 X10*6/uL (4.20-5.50); Red Cell Distribution Width 12.8 % (11.0-16.0)
[2021-07-01 13:02] LABS: UACC CULT YES; WBC Clumps Urine NOTED
[2021-07-01 13:03] LABS: Mucus Urine TRACE /LPF; Squamous Epithelial Cell Urine 1+ /LPF
[2021-07-01 13:12] LABS: COVID-19 Test Negative (Negative)
[2021-07-01 13:18] LABS: B Type Natriuretic Peptide 520 pg/mL (<100)
[2021-07-01 13:22] LABS: Alanine Aminotransferase 10 U/L (0-31); Albumin Level 2.6 g/dL (3.5-5.0); Alkaline Phosphatase 121 U/L (39-117); Anion Gap 12 (12-20); Aspartate Amino Transferase 17 U/L (5-31); Bilirubin Total 0.4 mg/dL (0.0-1.0); Blood Urea Nitrogen 39 mg/dL (9-16); Carbon Dioxide 23 mmol/L (22-29); Chloride 110 mmol/L (96-108); Creatinine Clr Calc Pharmacy 47.9; Estimated Glomerular Filt Rate 23; Glucose Random 125 mg/dL (60-115); Potassium 4.4 mmol/L (3.3-5.1); Sodium 141 mmol/L (135-145); Total Protein 5.7 g/dL (6.5-8.0)
--- NOTE | 2021-07-01 13:25 | PHA.MEDREC ---
Pharmacy Consult ? Medication Reconciliation Pharmacy has completed the medication reconciliation. Contacted the rehab she was discharged from 3 days ago for the discharged med list on 06/28/21. I was able to reach them at [phone]. Rubina Martin, PharmD [phone]
[2021-07-01 14:00] VITALS: BP 172/64; PULSE 77; RESP 19; TEMP 36.9; O2SAT 97
[2021-07-01] MEDS: Torsemide 20 MG TABLET 40 MG PO (14:20)
[2021-07-01 14:38] VITALS: BP 172/64; PULSE 77; O2SAT 97
--- NOTE | 2021-07-01 15:12 | MHC.CM.ED ---
Received case management consult from Dr Link. [facility] Came to ER due to weakness. Work up essentially negative. Physical therapy recommending machine long goods helper care. Patient received J&J vaccine in January 2021. Anticipate patient will be difficult to place due to insurance an weight. Referral broadcasted within 100 miles of patient's home. Continue to monitor for d/c needs.
[2021-07-01 16:00] VITALS: RESP 18
[2021-07-01 18:44] VITALS: BP 155/73; PULSE 73; RESP 16; TEMP 37.4; O2SAT 96
--- NOTE | 2021-07-01 18:46 | MHC.CM.PN ---
CM met with patient at request of ED MD. Pt is A&Ox3. Pt is morbidly obese, weighing 425 pounds and is unable to care for herself at home. [place] [facility] [facility] [place] for deconditioning. HCP is on file. HCP/daughter Anne-Marie Schneider ([phone]). PCP is Dr. Terry Ochoa. Pt lives alone. Pt is fully vaccinated with J&J 01/29/21. Pt has CERAMIC RESEARCH ENGINEER services through [facility]2hours in am, 2 hours in afternoon, and 2 hours in the evening/ 7 days a week. Pt also has VNA through [facility] weekly.. Pt feels she needs more CERAMIC RESEARCH ENGINEER hours. Pt cannot care for herself at home. Pt states she feels discriminated because of her weight. Pt is non ambulatory for past several years and needs help with all ADL's and help in home. Pt lives in a handicapped apartment and has handicapped accessible BR. Pt has a shower chair, a commode and a walker. Pt has a wheelchair, but states she needs an electric one and needs a hospital bed. CM gently explained that she probably does need 2 people to help move her and assist her to the commode and that is why she needs to consider living in a SNF, at least for a while, until she gets stronger. Pt is requesting to go to a local facility. PT is recommending LTC. Pt can go to SNF under penitentiary care. Explained to patient that referrals have been placed within a 100 hundred mile radius. Respectfully explained that her weight does impact bed offers, because pt requires more help. D/C plan is SNF for penitentiary care. CM to follow for d/c needs.
[2021-07-01 21:25] VITALS: BP 150/59; PULSE 72; RESP 24; TEMP 37.6; O2SAT 95
[2021-07-01 23:26] LABS: Glucose, Whole Blood 141 mg/dL (60-115)
[2021-07-02] VITALS (9 sets, daily range): BP systolic 131–149; BP diastolic 48–71; PULSE 62–74; RESP 14–20; TEMP 36.9–37.5; O2SAT 94–97
--- NOTE | 2021-07-02 11:59 | MHC.CM.ED ---
Received telephone call from Sushma at [facility]. [facility] does not have a bed. However, their sister facility, [facility] is able to offer a bed. Patient has been to their facility in the past. Spoke with patient's daughter, Anne-Marie via telephone at [phone]. Patient would not want to return to [facility]. T/W explained if no other bed offers were made, patient would either need to return home or go to [facility]. Breanna verbalized understanding. Continue to monitor for d/c needs.
[2021-07-02 12:39] LABS: Glucose, Whole Blood 159 mg/dL (60-115)
[2021-07-02] MEDS: Insulin Glargine,Hum.rec.anlog 100 UNIT/ML 10 ML VIAL 50 UNIT SUBCUT ×2 (13:39→21:46)
[2021-07-02] MEDS: Omeprazole 20 MG CAPSULE.DR PO (13:41)
[2021-07-02] MEDS: Aspirin Enteric Coated 81 MG TABLET.DR PO (13:41)
[2021-07-02] MEDS: hydrALAZINE HCl 25 MG TABLET PO ×2 (13:42→21:45)
[2021-07-02] MEDS: Torsemide 20 MG TABLET 40 MG PO (13:42)
[2021-07-02] MEDS: amLODIPine Besylate 10 MG TABLET PO (13:43)
[2021-07-02] MEDS: Sodium Zirconium Cyclosilicate 5 GM POWD.PACK PO (13:43)
[2021-07-02] MEDS: polyethylene glycoL 3350 17 GM POWD.PACK PO (13:43)
[2021-07-02 16:28] LABS: Glucose, Whole Blood 181 mg/dL (60-115)
[2021-07-02] MEDS: Insulin Lispro 100 UNIT/ML 3 ML VIAL SUBCUT (16:57)
[2021-07-02 21:40] LABS: Glucose, Whole Blood 113 mg/dL (60-115)
[2021-07-02] MEDS: Docusate Sodium 100 MG CAPSULE 200 MG PO (21:45)
[2021-07-02] MEDS: rOPINIRole HCL 0.5 MG TABLET PO (21:45)
[2021-07-03] VITALS (7 sets, daily range): BP systolic 133–200; BP diastolic 49–98; PULSE 63–81; RESP 12–25; TEMP 37.2; O2SAT 97–99
[2021-07-03 08:11] LABS: Glucose, Whole Blood 55 mg/dL (60-115)
--- NOTE | 2021-07-03 08:16 | PC.NURSE ---
Pts CBG 55. Given three orange juices and set up with breakfast. PA made aware. Will recheck sugar when appropriate.
[2021-07-03 08:35] LABS: Glucose, Whole Blood 76 mg/dL (60-115)
[2021-07-03] MEDS: hydrALAZINE HCl 25 MG TABLET PO (08:36)
[2021-07-03] MEDS: Aspirin Enteric Coated 81 MG TABLET.DR PO (08:36)
[2021-07-03] MEDS: Insulin Glargine,Hum.rec.anlog 100 UNIT/ML 10 ML VIAL 50 UNIT SUBCUT (08:37)
[2021-07-03] MEDS: amLODIPine Besylate 10 MG TABLET PO (08:37)
[2021-07-03] MEDS: Torsemide 20 MG TABLET 40 MG PO (08:37)
[2021-07-03] MEDS: Omeprazole 20 MG CAPSULE.DR PO (08:37)
--- NOTE | 2021-07-03 09:31 | MHC.CM.ED ---
Patient remains in ER. Still waiting to hear from: Angela Rey, Shruti Luu,Robert Mcguire, Angel Umana [facility] and [facility]. Clinical updates sent via [facility]. Continue to monitor for d/c needs.
[2021-07-03 11:12] LABS: Glucose, Whole Blood 97 mg/dL (60-115)
--- NOTE | 2021-07-03 13:46 | MHC.CM.ED ---
[facility] and [facility] rehab are willing to offer beds. Met with patient. Patient requesting referral to [facility]. Referral made. [facility] is unable to offer a bed. Patient is requesting to go home with resumption of [facility]. Spoke with patient's daughter, Anne-Marie. Anne-Marie in agreement. [facility] aware. [facility] booked. [facility] with chart. Patient, Lizzy Xie RN and Sloane MENSAH aware. Continue to monitor for d/c needs.
[2021-07-03 16:26] LABS: Glucose, Whole Blood 139 mg/dL (60-115)
--- NOTE | 2021-07-03 19:31 | PC.NURSE ---
REPORT TAKEN FROM JACOB VOSS, FIRST CONTACT WITH PT. SITTING UP IN BED EATING SNACK AND TOLERATING PO FLUIDS. SKIN PWD RESPIRATIONS EVEN UNLABORED. OFFERS NO COMPLAINTS. AWAITING DC VIA AMBULANCE. AWARE OF PLAN OF CARE.
== END 2021-07-03 21:15 | disposition home or self-care (01) ==
PROVIDERS: Emergency Provider Emergency Medicine Emergency Medical Services
DX: I50.9 Heart failure, unspecified (principal); R06.02 Shortness of breath; Z20.822 Contact with and (suspected) exposure to COVID-19; Z79.899 Other long term (current) drug therapy
CPT/HCPCS: 36415; 71045; 80053; 81001; 82947; 83880; 85025; 87086; 87635; 93005; 97162; 99285

== ENCOUNTER → 2021-10-07 13:26 | Outpatient (BNVA) | payer MEDICARE, MEDICAID, SELFPAY | DX: N39.0 Urinary tract infection, site not specified (principal); N17.9 Acute kidney failure, unspecified; N18.9 Chronic kidney disease, unspecified | CPT/HCPCS: 99212 ==

== ENCOUNTER 2021-12-03 18:26 | Outpatient (REF) | payer MEDICARE, MEDICAID, SELFPAY ==
[2021-12-03 18:43] LABS: Hemoglobin 10.3 g/dl (12.0-16.0)
[2021-12-03 19:20] LABS: Anion Gap 16 (12-20); Blood Urea Nitrogen 79 mg/dL (9-16); Calcium 8.7 mg/dL (8.4-10.2); Carbon Dioxide 23 mmol/L (22-29); Chloride 101 mmol/L (96-108); Glucose Random 281 mg/dL (60-115); Potassium 3.8 mmol/L (3.3-5.1); Sodium 136 mmol/L (135-145)
[2021-12-03 20:30] LABS: Estimated Glomerular Filt Rate 10
== END 2021-12-03 18:27 | disposition home or self-care (01) ==
LOC: HO.LNP 18:26
PROVIDERS: Visit Provider Internal Medicine Nephrology
DX: R77.8 Other specified abnormalities of plasma proteins (principal); R79.89 Other specified abnormal findings of blood chemistry
CPT/HCPCS: 80048; 85018

== ENCOUNTER → 2022-01-05 13:03 | Outpatient (BNVA) | payer MEDICARE, MEDICAID, SELFPAY | PROVIDERS: PCP Internal Medicine | DX: N39.0 Urinary tract infection, site not specified (principal) | CPT/HCPCS: Q3014 ==

== ENCOUNTER → 2022-01-07 11:50 | Outpatient (BNVA) | payer MEDICARE, MEDICAID, SELFPAY | PROVIDERS: PCP Internal Medicine; Visit Provider Internal Medicine | DX: Z13.89 Encounter for screening for other disorder (principal) ==

== ENCOUNTER 2022-01-09 15:07 | Outpatient (REF) | payer MEDICARE, MEDICAID, SELFPAY | END 2022-01-09 15:08 | disposition home or self-care (01) | LOC: HO.LNP 15:07 | DX: N39.0 Urinary tract infection, site not specified (principal) | CPT/HCPCS: 87086; 87088; 87186 ==

== ENCOUNTER 2022-01-09 20:28 | Emergency (ER) | payer MEDICARE, MEDICAID, SELFPAY ==
[2022-01-09 20:45] VITALS: BP 148/67; PULSE 71; RESP 18; TEMP 37.4; O2SAT 97; BMI 60.8
--- NOTE | 2022-01-09 20:56 | ED_ITS ---
HPI - General Adult General Chief complaint: General Medical Stated complaint: extremity weakness Time Seen by Provider: 01/09/22 20:56 Source: patient Mode of arrival: EMS Limitations: no limitations History of Present Illness HPI narrative: Patient is 58 years old obese patient wheelchair bound nonambulatory with history of CKD, heart failure, diabetic hypothyroidism, hypertension was admitted to rehab for 5 months discharge in 11/18 came here for increased weakness for last 2 weeks asking for rehab again. Patient does have a SENIOR RESEARCH MANAGER coming to her house about 50 hours a week feels more weak no nausea no vomiting no diarrhea no fever no chills no urinary symptoms. Related Data Home Medications Medication Instructions Recorded Confirmed calcifediol 30 mcg capsule,24 1 cap PO DAILY 06/01/21 01/07/22 hr,[facility] amlodipine 5 mg tablet 5 mg PO DAILY 12/01/21 01/07/22 cyclobenzaprine 5 mg tablet 5 mg PO TID PRN 12/01/21 01/07/22 dapagliflozin 10 mg tablet 10 mg PO DAILY 12/01/21 01/07/22 (Farxiwi) ropinirole 0.25 mg tablet 0.25 mg PO BEDTIME 12/01/21 01/07/22 sodium zirconium cyclosilicate 10 10 g PO DAILY 12/01/21 01/07/22 gram oral powder packet (Lokelal) spironolactone 50 mg tablet 50 mg PO DAILY 12/01/21 01/07/22 nystatin 100,000 unit/gram topical 100,000 unit TOPICAL BID 01/05/22 01/07/22 powder insulin glargine U-300 conc 300 130 unit SUBCUT ml 01/07/22 01/07/22 unit/mL (1.5 mL) subcutaneous pen (Toujeo SoloStar U-300 Insulin) insulin lispro 100 unit/mL 14 unit SUBCUT TID ml 01/07/22 01/07/22 subcutaneous solution (Humalog U-100 Insulin) Previous Rx's Medication Instructions Recorded albuterol sulfate 90 mcg/actuation 2 puff INHALATION Q4H PRN 30 Days 03/24/21 aerosol inhaler #8.5 g insulin syringe-needle U-100 1 mL #100 ea 03/26/21 30 gauge x 1/2 (BD Insulin Syringe Ultra-Fine) aspirin 81 mg tablet,delayed 81 mg PO DAILY #30 tab 06/13/21 release docusate sodium 100 mg capsule 200 mg PO BEDTIME #60 cap 06/13/21 hydralazine 25 mg tablet 25 mg PO TID #90 tab 06/13/21 nitroglycerin 0.4 mg sublingual 0.4 mg SUBLINGUAL Q5MX3 PRN #30 tab 06/13/21 tablet (Nitrostat) ondansetron 4 mg disintegrating 4 mg TRANSLINGUAL TIDAC PRN #12 tab 06/13/21 tablet blood sugar diagnostic #200 ea 12/05/21 blood sugar diagnostic (Accu-Chek #300 ea 12/05/21 Berna Plus test strp) gabapentin 100 mg capsule 100 mg PO BID #60 cap 01/08/22 omeprazole 40 mg capsule,delayed 40 mg PO DAILY #30 cap 01/08/22 release oxybutynin chloride 5 mg 5 mg PO DAILY #30 tab 01/08/22 tablet,extended release 24 hr torsemide 20 mg tablet 40 mg PO DAILY #90 tab 01/08/22 pen needle, diabetic 32 gauge x #100 ea 01/09/22 Allergies Allergy/AdvReac Type Severity Reaction Status Date / Time metformin [METFORMIN] Allergy Severe HIVES Verified 01/07/22 13:44 canagliflozin [From Invokana] Allergy Hives Verified 01/07/22 13:44 Review of Systems Review of Systems: Yes all other systems are reviewed and are negative [facility] Past Medical History Medical History Acute kidney injury superimposed on chronic kidney disease Acute on chronic diastolic (congestive) heart failure Alteration in skin integrity due to moisture Anemia Bladder outlet obstruction CKD (chronic kidney disease) stage 4, GFR 15-29 ml/min Clostridium difficile diarrhea Detrusor dysfunction Esophagitis Essential hypertension Frequent UTI Heart failure with preserved ejection fraction Hyperkalemia Hypothyroidism IBS (irritable bowel syndrome) Morbid obesity Type 2 diabetes mellitus with obesity UTI (urinary tract infection) Surgical History History of tubal ligation Family History Family History Father Diabetes Mother Diabetes Hypertension Breast cancer Family/Other Breast cancer Uterine cancer Social History Social History Household Members: None Housing: Apartment Do you presently have visiting nurse or other home services: Yes Alcohol intake: never Patient Tobacco Use Status: Never used Tobacco e-Cigarette/Vaping Use: Never Used Second Hand Smoke Exposure: No Advance Directives: Yes Advance Directives on File: Yes Advance Directives Date on File: 10/09/20 service: No Current occupational status: disabled Cognitive needs: No Hearing needs: No Vision needs: Yes Physical Exam ED Vital Signs: Vital Signs - 24 hr 01/09/22 20:45 01/09/22 21:18 01/10/22 00:32 Temperature 99.4 F 99.0 F Pulse Rate 71 69 75 Respiratory Rate 18 20 16 Blood Pressure 148/67 H 174/54 H 174/64 H Pulse Oximetry 97 98 97 BMI result Body Mass Index 60.8 Appearance: Alert. Oriented X3. No acute distress. Morbidly obese Eyes: PERRLA, ENT: Pharynx normal. Oral Mucosa moist Neck: Normal inspection. Neck supple. CVS: Normal heart rate and rhythm. Pulses normal. Respiratory: No respiratory distress. Equal air entry bilateral, no wheezing/rales/rhonchi Abdomen: Soft and nontender. Bowel sounds are present, no mass palpable, no CVA tenderness Skin: Skin warm and dry. Normal skin color. Normal skin turgor. Extremities: No lower extremity edema. No calf tenderness Neuro: Oriented X 3. No motor deficit. Medical Decision Making MDM Narrative Medical decision making narrative: Patient morbidly obese his unable to manage at home has mild UTI with slight elevated WBC count not in sepsis. Will give dose of IV Rocephin and start her on p.o. Ceftin case management consulted plan to place her on long-term rehab Lab Data Lab results reviewed: Yes I reviewed the patient's lab results. Result diagrams: 01/09/22 21:27 01/09/22 21:27 Labs: Lab Results 01/09/22 01/09/22 01/09/22 Range/Units 21:27 21:27 21:27 WBC 15.1 H (4.8-10.8) X10*3/uL RBC 3.45 L D (4.20-5.50) X10*6/uL Hgb 10.4 L (12.0-16.0) g/dl Hct 31.3 L (37.0-47.0) % MCV 90.7 (80.0-98.0) fL MCH 30.1 (27.0-33.0) pg MCHC 33.2 (31.0-35.0) g/dl RDW 13.7 (11.0-16.0) % Plt Count 253 (160-400) X10*3/uL MPV 10.1 (9.4-12.3) fL Immature Gran % (Auto) 0.5 H (0.0-0.4) % Neut % (Auto) 69.4 (45-73) % Lymph % (Auto) 18.5 L (20-40) % [place] % (Auto) 7.8 (2-11) % Eos % (Auto) 3.5 (0-4) % Baso % (Auto) 0.3 (0-2) % Lymph # (Auto) 2.8 (1.2-4.9) X10*3/uL [place] # (Auto) 1.2 (0.1-1.2) X10*3/uL Eos # (Auto) 0.5 H (0.0-0.4) X10*3/uL Baso # (Auto) 0.1 (0.0-0.2) X10*3/uL Abs Immat Gran (auto) 0.08 H (0.00-0.03) X10*3/uL Absolute Neuts (auto) 10.5 H (2.0-8.3) x10*3/uL Absolute Nucleated RBC 0.000 (0.0-0.012) X10*3/uL Nucleated RBC % (auto) 0.0 (0.0-0.2) /100WBC Sodium 136 (135-145) mmol/L Potassium 5.2 H D (3.3-5.1) mmol/L Chloride 104 (96-108) mmol/L Carbon Dioxide 25 (22-29) mmol/L Anion Gap 12 (12-20) BUN 85 H (9-16) mg/dL Creatinine 2.97 H (0.5-1.4) mg/dL Estim Creat Clear Calc 31.8 Estimated GFR 16 Random Glucose 189 H (60-115) mg/dL Calcium 9.4 D (8.4-10.2) mg/dL Magnesium 1.9 (1.6-2.6) mg/dL Total Bilirubin 0.3 (0.0-1.0) mg/dL AST 15 (5-31) U/L ALT 15 (0-31) U/L Alkaline Phosphatase 110 (39-117) U/L Total Protein 6.6 (6.5-8.0) g/dL Albumin 3.1 L (3.5-5.0) g/dL TSH 2.44 (0.32-4.0) uIU/mL Urine Color Urine Appearance Urine pH (5.0-8.0) Ur Specific [place] (1.005-1.025) Urine Protein (NEG-TRACE) MG/DL Urine Glucose (UA) (NEG) MG/DL Urine Ketones (NEG) MG/DL Urine Blood (NEG) Urine Nitrite (NEG) Ur Leukocyte Esterase (NEG) Urine RBC (0) /HPF Urine WBC (0-4) /HPF Ur Squamous Epith Cells /LPF Urine Bacteria /LPF Urine Mucus /LPF COVID-19 (SERA) Negative (Negative) COVID-19 Clin Com See Note 01/09/22 Range/Units 23:15 WBC (4.8-10.8) X10*3/uL RBC (4.20-5.50) X10*6/uL Hgb (12.0-16.0) g/dl Hct (37.0-47.0) % MCV (80.0-98.0) fL MCH (27.0-33.0) pg MCHC (31.0-35.0) g/dl RDW (11.0-16.0) % Plt Count (160-400) X10*3/uL MPV (9.4-12.3) fL Immature Gran % (Auto) (0.0-0.4) % Neut % (Auto) (45-73) % Lymph % (Auto) (20-40) % [place] % (Auto) (2-11) % Eos % (Auto) (0-4) % Baso % (Auto) (0-2) % Lymph # (Auto) (1.2-4.9) X10*3/uL [place] # (Auto) (0.1-1.2) X10*3/uL Eos # (Auto) (0.0-0.4) X10*3/uL Baso # (Auto) (0.0-0.2) X10*3/uL Abs Immat Gran (auto) (0.00-0.03) X10*3/uL Absolute Neuts (auto) (2.0-8.3) x10*3/uL Absolute Nucleated RBC (0.0-0.012) X10*3/uL Nucleated RBC % (auto) (0.0-0.2) /100WBC Sodium (135-145) mmol/L Potassium (3.3-5.1) mmol/L Chloride (96-108) mmol/L Carbon Dioxide (22-29) mmol/L Anion Gap (12-20) BUN (9-16) mg/dL Creatinine (0.5-1.4) mg/dL Estim Creat Clear Calc Estimated GFR Random Glucose (60-115) mg/dL Calcium (8.4-10.2) mg/dL Magnesium (1.6-2.6) mg/dL Total Bilirubin (0.0-1.0) mg/dL AST (5-31) U/L ALT (0-31) U/L Alkaline Phosphatase (39-117) U/L Total Protein (6.5-8.0) g/dL Albumin (3.5-5.0) g/dL TSH (0.32-4.0) uIU/mL Urine Color YELLOW Urine Appearance CLEAR Urine pH 7.0 (5.0-8.0) Ur Specific [place] 1.015 (1.005-1.025) Urine Protein 2+ H (NEG-TRACE) MG/DL Urine Glucose (UA) 100 H (NEG) MG/DL Urine Ketones NEG (NEG) MG/DL Urine Blood TRACE (NEG) Urine Nitrite NEG (NEG) Ur Leukocyte Esterase 1+ H (NEG) Urine RBC 1-4 (0) /HPF Urine WBC 10-14 H (0-4) /HPF Ur Squamous Epith Cells 1+ /LPF Urine Bacteria 2+ /LPF Urine Mucus 2+ /LPF COVID-19 (SERA) (Negative) COVID-19 Clin Com Discharge Plan Discharge Clinical Impression: UTI (urinary tract infection), Weakness, CKD (chronic kidney disease) stage 3, GFR 30-59 ml/min Patient Disposition: Still a Patient Prescriptions: No Action albuterol sulfate 90 mcg/actuation HFA aerosol inhaler 2 puff inhalation Q4H PRN (Reason: bronchospasm) 30 Days Qty: 8.5 5RF (DME) insulin syringe-needle U-100 [BD Insulin Syringe Ultra-Fine] 1 mL 30 gauge x 1/2 syringe See Rx Instructions .ROUTE .MEDSUPPLY Qty: 100 3RF Rx Instructions: TID (DME) Accu-Chek Berna Plus test strp Strip See Rx Instructions .Route Qty: 300 8RF Rx Instructions: to check blood sugars five times a day (DME) blood sugar diagnostic Strip See Rx Instructions ea .ROUTE .MEDSUPPLY Qty: 200 8RF Rx Instructions: FREESTYLE TEST STRIPS oxybutynin chloride 5 mg tablet extended release 24 hr 5 mg PO DAILY Qty: 30 0RF omeprazole 40 mg capsule,delayed release(DR/EC) 40 mg PO DAILY Qty: 30 0RF torsemide 20 mg tablet 40 mg PO DAILY Qty: 90 0RF Protocol: Hold for SBP< HOLD for SBP < : 90 Rx Instructions: Takes 2 tab in the morning and 1 tab at nights gabapentin 100 mg capsule 100 mg PO BID Qty: 60 0RF (DME) pen needle, diabetic 32 gauge x 5/32 needle See Rx Instructions .Route Qty: 100 0RF Rx Instructions: As directed Rayaldee 30 mcg capsule,extended release 24 hr 1 cap PO DAILY 0RF hydralazine 25 mg Tablet 25 mg PO TID Qty: 90 0RF Protocol: Hold for SBP< HOLD for SBP < : 90 aspirin 81 mg Tablet,Delayed Release (Dr/Ec) 81 mg PO DAILY Qty: 30 0RF nitroglycerin [Nitrostat] 0.4 mg Tablet, Sublingual 0.4 mg sublingual Q5MX3 PRN (Reason: Chest Pain) Qty: 30 0RF docusate sodium 100 mg Capsule 200 mg PO BEDTIME Qty: 60 0RF ondansetron 4 mg Tablet,Disintegrating 4 mg translingual TIDAC PRN (Reason: nausea) Qty: 12 0RF ropinirole 0.25 mg tablet 0.25 mg PO BEDTIME 0RF amlodipine 5 mg tablet 5 mg PO DAILY 0RF cyclobenzaprine 5 mg tablet 5 mg PO TID PRN0RF Farxiga 10 mg tablet 10 mg PO DAILY 0RF spironolactone 50 mg tablet 50 mg PO DAILY 0RF Lokelma 10 gram powder in packet 10 g PO DAILY 0RF Toujeo SoloStar U-300 Insulin 300 unit/mL (1.5 mL) insulin pen 130 unit subcut 0RF insulin lispro [Humalog U-100 Insulin] 100 unit/mL solution 14 unit subcut TID 0RF Rx Instructions: Patient uses a sliding scale nystatin 100,000 unit/gram powder 100,000 unit topical BID 0RF
[2022-01-09 21:18] VITALS: BP 174/54; PULSE 69; RESP 20; TEMP 37.2; O2SAT 98
[2022-01-09 21:32] LABS: MANUAL DIFF FLAG NO
[2022-01-09 21:34] LABS: Basophils Absolute Auto 0.1 X10*3/uL (0.0-0.2); Basophils Percent Auto 0.3 % (0-2); Eosinophils Absolute Auto 0.5 X10*3/uL (0.0-0.4); Eosinophils Percent Auto 3.5 % (0-4); Hematocrit 31.3 % (37.0-47.0); Hemoglobin 10.4 g/dl (12.0-16.0); Imm Gran Abs Auto 0.08 X10*3/uL (0.00-0.03); Imm Gran Pct Auto 0.5 % (0.0-0.4); Lymphocytes Absolute Auto 2.8 X10*3/uL (1.2-4.9); Lymphocytes Percent Auto 18.5 % (20-40); Mean Corpuscular HGB Conc 33.2 g/dl (31.0-35.0); Mean Corpuscular Hemoglobin 30.1 pg (27.0-33.0); Mean Corpuscular Volume 90.7 fL (80.0-98.0); Mean Platelet Volume 10.1 fL (9.4-12.3); Monocytes Absolute Auto 1.2 X10*3/uL (0.1-1.2); Monocytes Percent Auto 7.8 % (2-11); Neutrophils Absolute Auto 10.5 x10*3/uL (2.0-8.3); Neutrophils Percent Auto 69.4 % (45-73); Platelet Count 253 X10*3/uL (160-400); Red Blood Count 3.45 X10*6/uL (4.20-5.50); Red Cell Distribution Width 13.7 % (11.0-16.0); White Blood Count 15.1 X10*3/uL (4.8-10.8)
[2022-01-09 21:52] LABS: COVID-19 Test Negative (Negative); IDNOW Serial# 55D5AD1C
[2022-01-09 21:54] LABS: Alanine Aminotransferase 15 U/L (0-31); Albumin Level 3.1 g/dL (3.5-5.0); Alkaline Phosphatase 110 U/L (39-117); Anion Gap 12 (12-20); Aspartate Amino Transferase 15 U/L (5-31); Bilirubin Total 0.3 mg/dL (0.0-1.0); Blood Urea Nitrogen 85 mg/dL (9-16); Calcium 9.4 mg/dL (8.4-10.2); Carbon Dioxide 25 mmol/L (22-29); Chloride 104 mmol/L (96-108); Creatinine Clr Calc Pharmacy 31.8; Estimated Glomerular Filt Rate 16; Glucose Random 189 mg/dL (60-115); Magnesium 1.9 mg/dL (1.6-2.6); Potassium 5.2 mmol/L (3.3-5.1); Sodium 136 mmol/L (135-145); Total Protein 6.6 g/dL (6.5-8.0)
[2022-01-09 22:12] LABS: Thyroid Stimulating Hormone 2.44 uIU/mL (0.32-4.0)
--- NOTE | 2022-01-09 22:14 | MHC.CM.ED ---
CM met with pt with medical care evaluation specialist, as pt is Iraqi speaking, but can speak some Djib[place]ian. Requests mechanist for medical information. HCP is on file. HCP/daughter Anne-Marie Schneider ([phone], ). Pt received J&J vaccine and boosted with Pfizer. Pt reports having Covid 19 twice. Pt lives alone and has 51 hours/week of STUDIO HAND care from [facility]. Pt has wheelchair and commode. Pt can pivot, but is essentially wheelchair or bed bound. Pt was recently at [facility] from 07/15-11/26/21. Pt is morbidly obese. She is 5feet 6inches and weighs 376 pounds. Pt feels she needs more help and cannot remain at home. Pt cannot get to the doctor, as she needs BLS transportation to and from. Pt is aware that she needs LTC, but feels she has too many bills to pay. Is requesting STR. CM spoke with patient with regards to her needing more help that STR can provide on a short term basis. Pt would consider LTC, but she wants to be closer to family. Pt was happy with [facility], but feels it was too far away. Would like to be at [facility]. PT evaluation pending, hoping to increase upper body so patient can assist with transfers. CM will make referrals locally and within 50 miles. Expect difficulty with placement secondary to obesity. CM to follow for d/c needs.
[2022-01-09 23:31] LABS: Appearance Urine CLEAR; Color Urine YELLOW; Glucose Urine UA 100 MG/DL (NEG); Leukocyte Esterase Urine 1+ (NEG); Nitrite Urine NEG (NEG); Specific Gravity - Urine 1.015 (1.005-1.025); UACC Culture Trigger YES; Urine Blood TRACE (NEG); Urine Ketones NEG (NEG); Urine Protein 2+ MG/DL (NEG-TRACE)
[2022-01-09 23:43] LABS: Squamous Epithelial Cell Urine 1+ /LPF
[2022-01-09 23:44] LABS: Bacteria Urine 2+ /LPF; Mucus Urine 2+ /LPF
[2022-01-10] VITALS (7 sets, daily range): BP systolic 161–179; BP diastolic 41–67; PULSE 69–77; RESP 15–20; TEMP 37.1–37.3; O2SAT 94–98
[2022-01-10] MEDS: cefTRIAXone sodium 1 GM in 0.9 % Sodium Chloride 50 ML IV (03:52)
[2022-01-10] MEDS: 0.9 % Sodium Chloride 1,000 ML 999 ML IV (03:52)
[2022-01-10] MEDS: Sodium Polystyrene Sulfon/Sorb 15 GM/60 ML ORAL.SUSP 30 GM PO (03:53)
[2022-01-10 07:50] LABS: Glucose, Whole Blood 154 mg/dL (60-115)
--- NOTE | 2022-01-10 12:46 | PHA.MEDREC ---
Pharmacy Consult ? Medication Reconciliation Pharmacy has completed the medication reconciliation.
[2022-01-10 13:26] LABS: Glucose, Whole Blood 209 mg/dL (60-115)
[2022-01-10] MEDS: Spironolactone 25 MG TABLET 50 MG PO (14:42)
[2022-01-10] MEDS: Gabapentin 100 MG CAPSULE PO ×2 (14:42→22:02)
[2022-01-10] MEDS: amLODIPine Besylate 10 MG TABLET PO (14:42)
[2022-01-10] MEDS: Torsemide 20 MG TABLET 40 MG PO (14:43)
--- NOTE | 2022-01-10 14:55 | PC.NURSE ---
pharmacy verified 10:30 med at 1pm - some medications not given due to BID status
[2022-01-10] MEDS: hydrALAZINE HCl 25 MG TABLET PO ×2 (15:20→22:01)
[2022-01-10] MEDS: Insulin Lispro 100 UNIT/ML 3 ML VIAL SUBCUT ×2 (18:21→22:40)
[2022-01-10 18:25] LABS: Glucose, Whole Blood 250 mg/dL (60-115)
[2022-01-10] MEDS: Docusate Sodium 100 MG CAPSULE 200 MG PO (22:02)
[2022-01-10] MEDS: Torsemide 20 MG TABLET PO (22:03)
[2022-01-10] MEDS: rOPINIRole HCL 0.25 MG TABLET PO (22:30)
[2022-01-10 22:41] LABS: Glucose, Whole Blood 233 mg/dL (60-115)
[2022-01-11 04:02] VITALS: BP 134/50; PULSE 61; TEMP 37.3; O2SAT 97
--- NOTE | 2022-01-11 05:14 | PC.NURSE ---
I assumed care of Isabel at 1900. She remains alert oriented x 3, calm and cooperative, makes eye contact with RN. She denies SOB, respirations are non-labored, room air sats WNL, no cyanosis, she speaks in full sentgences. No nausea, no vomiting. She is taking PO food and fluids without difficulty. Isabel continues to await a case management eval and potential rehab placement.
[2022-01-11 07:45] VITALS: BP 145/68; PULSE 65; RESP 18; TEMP 36.8; O2SAT 96
[2022-01-11 07:52] LABS: Glucose, Whole Blood 199 mg/dL (60-115)
[2022-01-11] MEDS: hydrALAZINE HCl 25 MG TABLET PO ×3 (08:15→22:13)
[2022-01-11] MEDS: Omeprazole 40 MG CAPSULE.DR PO (08:15)
[2022-01-11] MEDS: amLODIPine Besylate 10 MG TABLET PO (08:15)
[2022-01-11] MEDS: Spironolactone 25 MG TABLET 50 MG PO (08:15)
[2022-01-11] MEDS: Gabapentin 100 MG CAPSULE PO ×2 (08:15→22:13)
[2022-01-11] MEDS: Torsemide 20 MG TABLET 40 MG PO (08:16)
[2022-01-11] MEDS: Insulin Glargine,Hum.rec.anlog 100 UNIT/ML 10 ML VIAL 104 UNIT SUBCUT (08:16)
[2022-01-11] MEDS: Insulin Lispro 100 UNIT/ML 3 ML VIAL SUBCUT ×2 (08:16→19:24)
[2022-01-11] MEDS: Empagliflozin 10 MG TABLET PO (08:21)
--- NOTE | 2022-01-11 09:12 | MHC.CM.ED ---
Patient remains in ER. Physical therapy eval completed. Short term rehab is recommended with transition to manager long term care care. 32 referrals made in [facility]. No bed offers have been made yet. Clinical updates sent to all facilities still following patient. Continue to monitor for d/c needs.
[2022-01-11 14:26] LABS: Glucose, Whole Blood 161 mg/dL (60-115)
[2022-01-11 16:21] VITALS: BP 139/56; PULSE 65; RESP 16; TEMP 36.7; O2SAT 99
[2022-01-11 18:21] LABS: Glucose, Whole Blood 217 mg/dL (60-115)
[2022-01-11] MEDS: Docusate Sodium 100 MG CAPSULE 200 MG PO (22:13)
[2022-01-11] MEDS: Torsemide 20 MG TABLET PO (22:13)
[2022-01-11] MEDS: Nystatin Powder 15 GM BOTTLE 1 APPL TOPICAL (22:14)
[2022-01-11 22:35] VITALS: BP 176/73; PULSE 71; RESP 20; TEMP 36.6; O2SAT 98
[2022-01-11 22:43] LABS: Glucose, Whole Blood 258 mg/dL (60-115)
[2022-01-12] MEDS: rOPINIRole HCL 0.25 MG TABLET PO ×2 (00:18→22:38)
[2022-01-12] MEDS: Ondansetron ODT 4 MG TAB.RAPDIS TRANSLINGU (00:23)
--- NOTE | 2022-01-12 01:09 | PC.NURSE ---
PATIENT WAS ASSISTED UNTO BEDSIDE COMMODE WITH THE HELP OF 2 PERSON ,PATIENT HAD A LARGE BOWEL MOVEMENT , PATIENT NEEDED HELP TO CLEAN SELF,PATIENT IN BACK IN BED ,PATIENT PERWICK HAD 800ML URINE AND INC TIMES 1 OF URINE .
[2022-01-12 06:00] VITALS: BP 140/113; PULSE 64; RESP 17; TEMP 36.9; O2SAT 96
[2022-01-12 07:05] LABS: Glucose, Whole Blood 188 mg/dL (60-115)
[2022-01-12] MEDS: Insulin Lispro 100 UNIT/ML 3 ML VIAL SUBCUT ×4 (07:18→22:54)
[2022-01-12] MEDS: Insulin Glargine,Hum.rec.anlog 100 UNIT/ML 10 ML VIAL 104 UNIT SUBCUT (09:44)
[2022-01-12] MEDS: Torsemide 20 MG TABLET 40 MG PO (09:45)
[2022-01-12] MEDS: amLODIPine Besylate 10 MG TABLET PO (09:45)
[2022-01-12] MEDS: Spironolactone 25 MG TABLET 50 MG PO (09:45)
[2022-01-12] MEDS: Omeprazole 40 MG CAPSULE.DR PO (09:45)
[2022-01-12] MEDS: hydrALAZINE HCl 25 MG TABLET PO ×3 (09:46→22:38)
[2022-01-12] MEDS: Gabapentin 100 MG CAPSULE PO ×2 (09:46→22:39)
[2022-01-12] MEDS: Nystatin Powder 15 GM BOTTLE 1 APPL TOPICAL ×2 (09:46→22:39)
[2022-01-12] MEDS: Empagliflozin 10 MG TABLET PO (09:49)
--- NOTE | 2022-01-12 11:35 | MHC.CM.ED ---
Addendum entered by Xiao Renteria 01/12/22 11:55: [facility] is also still reviewing. Original Note: Patient remains in ER. Clinical updates sent via [facility]port to the following facilities still following patient: [facility], [facility] and [facility]. [facility] does not have a bed today but will follow for d/c needs.
[2022-01-12] MEDS: Acetaminophen 325 MG TABLET 650 MG PO (12:41)
[2022-01-12 13:24] LABS: Glucose, Whole Blood 201 mg/dL (60-115)
[2022-01-12 15:34] VITALS: BP 101/73; PULSE 63; RESP 20; TEMP 36.9; O2SAT 97
--- NOTE | 2022-01-12 16:44 | PC.NURSE ---
pt a&ox3, vss, c/o 04/08 head/mouth pain - pt reports pain in her mouth from some broken teeth and believes that it is giving her a headache, provider notified. medicated per provider order. no new orders at this time.
[2022-01-12 17:53] LABS: Glucose, Whole Blood 192 mg/dL (60-115)
--- NOTE | 2022-01-12 18:11 | PC.NURSE ---
pt a&ox3, vss, pt changed - purwick not working, pt cleaned and powder applied. purwick reapplied. no new orders at this time.
[2022-01-12] MEDS: oxyCODONE HCl Immed Release 5 MG TABLET 10 MG PO (19:19)
--- NOTE | 2022-01-12 19:23 | PC.NURSE ---
medicated per provider order - dinner arrived in ED @ 1900.
[2022-01-12 19:36] VITALS: BP 154/65; PULSE 68; RESP 20; TEMP 36.7; O2SAT 95
[2022-01-12 22:00] VITALS: BP 162/68; PULSE 65; RESP 15; O2SAT 97
[2022-01-12] MEDS: Torsemide 20 MG TABLET PO (22:38)
[2022-01-12] MEDS: Docusate Sodium 100 MG CAPSULE 200 MG PO (22:39)
[2022-01-12 22:42] LABS: Glucose, Whole Blood 241 mg/dL (60-115)
--- NOTE | 2022-01-12 22:42 | PC.NURSE ---
medicated per provider order. nystatin powder applied to groin.
[2022-01-13] MEDS: oxyCODONE HCl Immed Release 5 MG TABLET PO (01:17)
--- NOTE | 2022-01-13 01:19 | PC.NURSE ---
medicated for 8/ headache.
[2022-01-13 06:07] VITALS: BP 145/64; PULSE 59; RESP 16; O2SAT 98
[2022-01-13] MEDS: Insulin Lispro 100 UNIT/ML 3 ML VIAL SUBCUT ×4 (07:20→22:25)
--- NOTE | 2022-01-13 07:22 | PC.NURSE ---
sitting up eating. no complaints at this time. pure wick in place. unlabored resp. putting out urine. nsr on monitor.
[2022-01-13 08:30] LABS: COVID-19 Test Negative (Negative); IDNOW Serial# 16C4AD1C
[2022-01-13] MEDS: Ondansetron ODT 4 MG TAB.RAPDIS TRANSLINGU ×2 (10:12→18:06)
[2022-01-13] MEDS: amLODIPine Besylate 10 MG TABLET PO (10:12)
[2022-01-13] MEDS: Omeprazole 40 MG CAPSULE.DR PO (10:13)
[2022-01-13] MEDS: Spironolactone 25 MG TABLET 50 MG PO (10:13)
[2022-01-13] MEDS: Torsemide 20 MG TABLET 40 MG PO (10:13)
[2022-01-13] MEDS: hydrALAZINE HCl 25 MG TABLET PO ×3 (10:13→22:25)
[2022-01-13] MEDS: Insulin Glargine,Hum.rec.anlog 100 UNIT/ML 10 ML VIAL 104 UNIT SUBCUT (10:14)
[2022-01-13] MEDS: Nystatin Powder 15 GM BOTTLE 1 APPL TOPICAL ×2 (10:14→22:26)
[2022-01-13] MEDS: Empagliflozin 10 MG TABLET PO (10:14)
[2022-01-13] MEDS: Gabapentin 100 MG CAPSULE PO ×2 (10:14→22:25)
--- NOTE | 2022-01-13 10:16 | PC.NURSE ---
pt complaiing of slight nausea and leg pain. medicated for both. sitting upright in bed. has had am care from PCT. making urine (pure wick in place).
[2022-01-13 13:29] LABS: Glucose, Whole Blood 166 mg/dL (60-115)
[2022-01-13 13:29] LABS: Glucose, Whole Blood 219 mg/dL (60-115)
--- NOTE | 2022-01-13 13:47 | MHC.CM.ED ---
Patient remains in ER. Clinical updates sent via [facility] to [facility]. [facility] is still reviewing to see if they can offer a bed. Continue to monitor for d/c needs.
--- NOTE | 2022-01-13 15:17 | PC.NURSE ---
sleeping. easily aroused for VS and meds.
[2022-01-13 15:18] VITALS: BP 123/91; PULSE 66; RESP 18; O2SAT 96
[2022-01-13 18:22] LABS: Glucose, Whole Blood 205 mg/dL (60-115)
[2022-01-13 21:53] LABS: Glucose, Whole Blood 280 mg/dL (60-115)
[2022-01-13 22:13] VITALS: BP 154/60; PULSE 68; RESP 18; O2SAT 97
[2022-01-13] MEDS: Docusate Sodium 100 MG CAPSULE 200 MG PO (22:24)
[2022-01-13] MEDS: Torsemide 20 MG TABLET PO (22:25)
[2022-01-13] MEDS: rOPINIRole HCL 0.25 MG TABLET PO (22:25)
[2022-01-13 22:34] VITALS: TEMP 36.9
[2022-01-14] VITALS: BP 156/64; PULSE 66; RESP 16; TEMP 36.9; O2SAT 98
[2022-01-14 05:52] VITALS: BP 157/64; PULSE 60; RESP 18; TEMP 36.4; O2SAT 93
[2022-01-14 06:00] VITALS: BP 126/54; PULSE 64; RESP 16; TEMP 36.8; O2SAT 95
[2022-01-14 07:10] LABS: Glucose, Whole Blood 181 mg/dL (60-115)
[2022-01-14] MEDS: Spironolactone 25 MG TABLET 50 MG PO (07:58)
[2022-01-14] MEDS: amLODIPine Besylate 10 MG TABLET PO (07:59)
[2022-01-14] MEDS: Gabapentin 100 MG CAPSULE PO ×2 (08:00→22:36)
[2022-01-14] MEDS: hydrALAZINE HCl 25 MG TABLET PO ×3 (08:00→22:37)
[2022-01-14] MEDS: Omeprazole 40 MG CAPSULE.DR PO (08:01)
[2022-01-14] MEDS: Insulin Glargine,Hum.rec.anlog 100 UNIT/ML 10 ML VIAL 104 UNIT SUBCUT (08:01)
[2022-01-14] MEDS: Torsemide 20 MG TABLET 40 MG PO (08:01)
[2022-01-14] MEDS: Insulin Lispro 100 UNIT/ML 3 ML VIAL SUBCUT ×4 (08:03→22:36)
[2022-01-14] MEDS: Nystatin Powder 15 GM BOTTLE 1 APPL TOPICAL ×2 (08:03→22:36)
[2022-01-14] MEDS: Empagliflozin 10 MG TABLET PO (08:32)
--- NOTE | 2022-01-14 09:25 | MHC.CM.ED ---
Addendum entered by Xiao Renteria 01/14/22 15:32: Kasie Vasquez requesting additional physical therapy note. Note sent via [facility]. They are currently reviewing. Original Note: Patient remains in ER. Clinical updates sent to facilties still following patient: [facility], [facility] and [facility]. Continue to monitor for d/c needs.
[2022-01-14 10:34] VITALS: BP 126/54; PULSE 64; O2SAT 95
[2022-01-14 10:40] VITALS: BMI 59.7
[2022-01-14 12:32] VITALS: BP 143/66; PULSE 64; RESP 14; O2SAT 96
[2022-01-14 12:40] LABS: Glucose, Whole Blood 235 mg/dL (60-115)
[2022-01-14 13:48] VITALS: BP 124/57; PULSE 66; RESP 18; O2SAT 97
--- NOTE | 2022-01-14 16:50 | PC.NURSE ---
PATIENT WAS INC OF URINE ,CARE WAS GIVEN AND BEDDING WAS CHANGE .
[2022-01-14 16:54] LABS: Glucose, Whole Blood 172 mg/dL (60-115)
[2022-01-14 19:54] LABS: Glucose, Whole Blood 235 mg/dL (60-115)
[2022-01-14] MEDS: Docusate Sodium 100 MG CAPSULE 200 MG PO (22:37)
[2022-01-14] MEDS: Torsemide 20 MG TABLET PO (22:38)
[2022-01-14] MEDS: rOPINIRole HCL 0.25 MG TABLET PO (22:39)
--- NOTE | 2022-01-14 23:30 | PC.NURSE ---
Pt medicated per OCT Pt cleaned, gowns and linens changed Pt tolerated well NAD Will continue to monitor
[2022-01-15 04:07] VITALS: BP 127/68; PULSE 69; RESP 17; O2SAT 97
[2022-01-15 07:26] LABS: Glucose, Whole Blood 151 mg/dL (60-115)
--- NOTE | 2022-01-15 08:59 | PC.NURSE ---
resting quietly this am. am care provided by escalator constructor and nistatin applied to folds in abdoment and groin. Pt sitting up to eat breakfast. no insulin coverage needed. awaits placement in rehab.
--- NOTE | 2022-01-15 09:15 | PC.NURSE ---
up to commode. moderate hard stool with verito blood. pt was straining. this rn to call kitchen to change diet to high fiber and pt increasing fluids. this rn will pursue bowel regimen with provider.
--- NOTE | 2022-01-15 09:20 | MHC.CM.ED ---
Addendum entered by Xiao Renteria 01/15/22 14:11: [facility] is reviewing to see if they can offer patient a bed. Original Note: Patient remains in ER. None of the [facility] facilities are able to accept patient due to her weight. Referral broadcasted in [facility] that are [facility] with patient's insurance and can accept bariatric patients within 50 miles. 37 referrals made at this time. Continue to monitor for d/c needs.
[2022-01-15] MEDS: Omeprazole 40 MG CAPSULE.DR PO (09:41)
[2022-01-15] MEDS: Torsemide 20 MG TABLET 40 MG PO (09:41)
[2022-01-15] MEDS: hydrALAZINE HCl 25 MG TABLET PO ×3 (09:41→21:25)
[2022-01-15] MEDS: Spironolactone 25 MG TABLET 50 MG PO (09:41)
[2022-01-15] MEDS: Insulin Glargine,Hum.rec.anlog 100 UNIT/ML 10 ML VIAL 104 UNIT SUBCUT (09:42)
[2022-01-15] MEDS: Gabapentin 100 MG CAPSULE PO ×2 (09:42→21:24)
[2022-01-15] MEDS: Nystatin Powder 15 GM BOTTLE 1 APPL TOPICAL (09:42)
[2022-01-15] MEDS: amLODIPine Besylate 10 MG TABLET PO (09:42)
[2022-01-15 09:44] VITALS: BP 135/56; PULSE 66; RESP 18; O2SAT 99
[2022-01-15] MEDS: Empagliflozin 10 MG TABLET PO (10:23)
[2022-01-15] MEDS: polyethylene glycoL 3350 17 GM POWD.PACK PO (10:31)
[2022-01-15 12:44] LABS: Glucose, Whole Blood 183 mg/dL (60-115)
[2022-01-15] MEDS: Insulin Lispro 100 UNIT/ML 3 ML VIAL SUBCUT ×3 (13:50→21:25)
[2022-01-15 18:06] VITALS: BP 144/65; PULSE 64; RESP 18; TEMP 37.1; O2SAT 97
[2022-01-15 18:11] LABS: Glucose, Whole Blood 180 mg/dL (60-115)
[2022-01-15 21:14] LABS: Glucose, Whole Blood 213 mg/dL (60-115)
[2022-01-15] MEDS: rOPINIRole HCL 0.25 MG TABLET PO (21:24)
[2022-01-15] MEDS: Torsemide 20 MG TABLET PO (21:26)
[2022-01-15] MEDS: Docusate Sodium 100 MG CAPSULE 200 MG PO (21:26)
[2022-01-15 23:38] VITALS: BP 142/56; PULSE 67; RESP 14; TEMP 36.8; O2SAT 97
[2022-01-16 06:23] VITALS: BP 132/49; PULSE 64; RESP 16; TEMP 36.9; O2SAT 98
[2022-01-16 07:21] LABS: Glucose, Whole Blood 153 mg/dL (60-115)
[2022-01-16 08:05] VITALS: BP 139/59; PULSE 65; RESP 18; TEMP 36.9; O2SAT 96
[2022-01-16] MEDS: Omeprazole 40 MG CAPSULE.DR PO (08:07)
[2022-01-16] MEDS: Torsemide 20 MG TABLET 40 MG PO (08:07)
[2022-01-16] MEDS: Spironolactone 25 MG TABLET 50 MG PO (08:07)
[2022-01-16] MEDS: Insulin Glargine,Hum.rec.anlog 100 UNIT/ML 10 ML VIAL 104 UNIT SUBCUT (08:07)
[2022-01-16] MEDS: amLODIPine Besylate 10 MG TABLET PO (08:07)
[2022-01-16] MEDS: Gabapentin 100 MG CAPSULE PO ×2 (08:08→22:27)
[2022-01-16] MEDS: hydrALAZINE HCl 25 MG TABLET PO ×3 (08:08→22:27)
[2022-01-16] MEDS: Nystatin Powder 15 GM BOTTLE 1 APPL TOPICAL ×2 (08:08→22:32)
[2022-01-16] MEDS: Empagliflozin 10 MG TABLET PO (08:08)
[2022-01-16 13:36] LABS: Glucose, Whole Blood 128 mg/dL (60-115)
[2022-01-16 15:33] VITALS: BP 142/61; PULSE 65; RESP 16; TEMP 36.9; O2SAT 95
[2022-01-16 16:40] VITALS: BP 142/61; PULSE 66; TEMP 36.8; O2SAT 97
[2022-01-16 18:12] LABS: Glucose, Whole Blood 168 mg/dL (60-115)
[2022-01-16] MEDS: Insulin Lispro 100 UNIT/ML 3 ML VIAL SUBCUT ×2 (18:33→22:28)
[2022-01-16 20:26] VITALS: BP 135/62; PULSE 66; RESP 16; TEMP 36.7; O2SAT 99
[2022-01-16 21:25] LABS: Glucose, Whole Blood 209 mg/dL (60-115)
[2022-01-16] MEDS: Docusate Sodium 100 MG CAPSULE 200 MG PO (22:27)
[2022-01-16] MEDS: Torsemide 20 MG TABLET PO (22:27)
[2022-01-17 04:30] VITALS: BP 125/56; PULSE 64; RESP 18; TEMP 36.8; O2SAT 98
[2022-01-17] MEDS: oxyCODONE HCl Immed Release 5 MG TABLET PO (06:24)
[2022-01-17 06:25] VITALS: BP 137/66; PULSE 63; RESP 16; TEMP 36.8; O2SAT 96
[2022-01-17 07:31] LABS: Glucose, Whole Blood 95 mg/dL (60-115)
[2022-01-17] MEDS: Spironolactone 25 MG TABLET 50 MG PO (08:00)
[2022-01-17] MEDS: hydrALAZINE HCl 25 MG TABLET PO ×3 (08:01→22:09)
[2022-01-17] MEDS: Torsemide 20 MG TABLET 40 MG PO (08:01)
[2022-01-17] MEDS: Gabapentin 100 MG CAPSULE PO ×2 (08:02→22:08)
[2022-01-17] MEDS: amLODIPine Besylate 10 MG TABLET PO (08:02)
[2022-01-17] MEDS: Omeprazole 40 MG CAPSULE.DR PO (08:02)
[2022-01-17] MEDS: Empagliflozin 10 MG TABLET PO (08:02)
[2022-01-17 08:04] VITALS: BP 137/57; PULSE 71; RESP 16; O2SAT 97
[2022-01-17] MEDS: Nystatin Powder 15 GM BOTTLE 1 APPL TOPICAL ×2 (08:07→22:09)
[2022-01-17 13:23] LABS: Glucose, Whole Blood 196 mg/dL (60-115)
[2022-01-17] MEDS: Insulin Lispro 100 UNIT/ML 3 ML VIAL SUBCUT ×3 (14:21→22:10)
--- NOTE | 2022-01-17 15:37 | MHC.CM.ED ---
Pt remains boarding in ED awaiting bariatric STR placement. [facility] is following - they did not have bed availability today but suggested checking back in tomorrow. CM to follow
--- NOTE | 2022-01-17 17:10 | PC.NURSE ---
pt a&ox3, vss, purwick in place - barrier cream applied, pt assisted to commode - large bm, pt c/o dizziness after oxycodone and constant bilateral leg pain, 8/10 at baseline. no new orders at this time. pt awaiting bed placement.
[2022-01-17 19:13] LABS: Glucose, Whole Blood 151 mg/dL (60-115)
[2022-01-17 21:43] LABS: Glucose, Whole Blood 205 mg/dL (60-115)
[2022-01-17 22:00] VITALS: BP 166/70; PULSE 70; RESP 18; O2SAT 100
[2022-01-17] MEDS: Torsemide 20 MG TABLET PO (22:11)
--- NOTE | 2022-01-17 22:15 | PC.NURSE ---
contacted pharmacy for missing 2100 medication.
[2022-01-17] MEDS: rOPINIRole HCL 0.25 MG TABLET PO (22:47)
[2022-01-17] MEDS: Docusate Sodium 100 MG CAPSULE 200 MG PO (23:54)
[2022-01-18 05:55] VITALS: BP 121/69; PULSE 66; RESP 20; TEMP 36.1; O2SAT 98
--- NOTE | 2022-01-18 07:04 | PC.NURSE ---
report given to BIPIN Haley
[2022-01-18 09:08] VITALS: BP 150/70; PULSE 68; RESP 18; O2SAT 100
--- NOTE | 2022-01-18 09:18 | PC.NURSE ---
Pt A&X4, LCA, abd round, obese, non tender +BS x 4, pt offers no complaints of pain at this time. Pericare, bed bath and personal care completed this morning. Pt skin intact, cream applied to underarms, breasts, ground and mimi area. Pure wick replaced this morning. POC 131, breakfast tray provided. Call gonzalez within reach. Will continue to monitor.
[2022-01-18] MEDS: hydrALAZINE HCl 25 MG TABLET PO ×3 (09:24→21:37)
[2022-01-18] MEDS: Torsemide 20 MG TABLET 40 MG PO (09:24)
[2022-01-18] MEDS: Spironolactone 25 MG TABLET 50 MG PO (09:24)
[2022-01-18] MEDS: Omeprazole 40 MG CAPSULE.DR PO (09:24)
[2022-01-18] MEDS: Gabapentin 100 MG CAPSULE PO ×2 (09:24→21:37)
[2022-01-18] MEDS: amLODIPine Besylate 10 MG TABLET PO (09:24)
[2022-01-18] MEDS: Insulin Glargine,Hum.rec.anlog 100 UNIT/ML 10 ML VIAL 104 UNIT SUBCUT (09:25)
[2022-01-18] MEDS: Nystatin Powder 15 GM BOTTLE 1 APPL TOPICAL (10:03)
[2022-01-18 10:20] LABS: Glucose, Whole Blood 131 mg/dL (60-115)
[2022-01-18 12:42] LABS: Glucose, Whole Blood 209 mg/dL (60-115)
[2022-01-18] MEDS: Empagliflozin 10 MG TABLET PO (12:44)
[2022-01-18] MEDS: Insulin Lispro 100 UNIT/ML 3 ML VIAL SUBCUT ×2 (12:44→21:49)
--- NOTE | 2022-01-18 14:16 | MHC.CM.ED ---
Met with pt to update her on STR bed search. Very broad search initiated without acceptance d/t lack of beds, no bariatric services or non contracted centers. Pt continues to support the need to transfer to [facility] and feels she will not be successful at home despite generous [employer] hours (51/week) and supports from [facility]NA. Pt states she needs 24/7 care to adress her needs. I need someone to help me go to the bathroom and bring me meals and diabetic snacks. If someone isn't with me, I can't go pee or eat - that's what I liked about rehab: someone was always there to help me. Pt states she lives alone and doesn't have family that can assist her with the additional hours she feels she needs. She understands barriers to placement. [facility] is the only referral that appears interested: no bed availability again today. Will f/u again on 01/19.
[2022-01-18 16:16] VITALS: BP 147/62; PULSE 66; O2SAT 99
[2022-01-18 17:19] VITALS: BP 146/60; PULSE 67; RESP 18; O2SAT 98
[2022-01-18 20:53] LABS: Glucose, Whole Blood 263 mg/dL (60-115)
[2022-01-18] MEDS: Torsemide 20 MG TABLET PO (21:37)
[2022-01-18] MEDS: Docusate Sodium 100 MG CAPSULE 200 MG PO (21:38)
[2022-01-18 21:48] LABS: Glucose, Whole Blood 281 mg/dL (60-115)
[2022-01-19] MEDS: rOPINIRole HCL 0.25 MG TABLET PO ×2 (00:28→21:13)
--- NOTE | 2022-01-19 01:50 | PC.NURSE ---
perineal care provided by this RN and EDT. pt given diet gingerale & crackers, pt resting quietly in bed.
--- NOTE | 2022-01-19 03:07 | PC.NURSE ---
pt provided perineal care & linen change
[2022-01-19 03:21] VITALS: BP 148/63; PULSE 67; RESP 18; TEMP 36.6; O2SAT 99
[2022-01-19 07:06] LABS: Glucose, Whole Blood 155 mg/dL (60-115)
[2022-01-19 08:13] VITALS: BP 137/67; PULSE 68; RESP 12; TEMP 36.3; O2SAT 98
[2022-01-19] MEDS: Omeprazole 40 MG CAPSULE.DR PO (08:31)
[2022-01-19] MEDS: amLODIPine Besylate 10 MG TABLET PO (08:31)
[2022-01-19] MEDS: Insulin Glargine,Hum.rec.anlog 100 UNIT/ML 10 ML VIAL 104 UNIT SUBCUT (08:31)
[2022-01-19] MEDS: Insulin Lispro 100 UNIT/ML 3 ML VIAL SUBCUT ×3 (08:43→21:10)
--- NOTE | 2022-01-19 08:49 | MHC.CM.ED ---
Addendum entered by Xiao Renteria 01/19/22 14:51: Still waiting to hear from [place]. At this point beds have been offered at: [facility] 2 hours 45 mins away, [facility] 4 hours away, [facility] 3 hours away, and [facility] 2 hours 20 mins away. Met with patient and ship keeper. Patient wants to discuss this with her family and then get back to . Patient verbalizes understanding that she will either need to accept a facility further away or return home with resumption of services. Original Note: Patient remains in ER. Still waiting to hear from [facility]. Referral broadcasted within 200 miles of patient's residence to all facilities that accept patient's insurance and has bariatric beds. 161 referrals made at this time. Continue to monitor for d/c needs.
[2022-01-19] MEDS: Nystatin Powder 15 GM BOTTLE 1 APPL TOPICAL ×2 (09:00→21:13)
[2022-01-19] MEDS: Empagliflozin 10 MG TABLET PO (09:00)
[2022-01-19] MEDS: hydrALAZINE HCl 25 MG TABLET PO ×2 (09:00→21:41)
[2022-01-19] MEDS: Gabapentin 100 MG CAPSULE PO ×2 (09:00→21:11)
[2022-01-19 13:54] LABS: Glucose, Whole Blood 164 mg/dL (60-115)
[2022-01-19 16:30] VITALS: BP 147/60; PULSE 66; RESP 17; TEMP 36.8; O2SAT 95
[2022-01-19] MEDS: Torsemide 20 MG TABLET 40 MG PO (19:08)
[2022-01-19] MEDS: Spironolactone 25 MG TABLET 50 MG PO (19:11)
[2022-01-19] MEDS: Docusate Sodium 100 MG CAPSULE 200 MG PO (21:11)
[2022-01-19] MEDS: Torsemide 20 MG TABLET PO (21:12)
--- NOTE | 2022-01-19 21:50 | MHC.CM.ED ---
Addendum entered by Zayda Hammond 01/19/22 22:15: CM again spoke with patient. Pt desires to go home in the morning, so she can arrange for her RISK ASSESSOR to be at her home. [facility] booked for 11am, bariatric stretcher needed. Med Nec in chart. Dr. Lowry, RN and legal secretary receptionist aware. CM to follow for d/c needs. Original Note: CM met with patient to discuss options for STR. Beds have been offered in [facility], [facility] and [place]. Pt does not want to go that far from home and requests to go home with her existing services-[employer]ISK ASSESSOR 51 hours/week. Pt will need to remain overnight, with BLS transport in the morning and with patient to call RISK ASSESSOR to be present when she gets home. CM to alert provider. Will book BLS transport for 11 am. Pt aware and agreeable. Will call RISK ASSESSOR to arrange care in the morning. CM to follow for d/c needs.
[2022-01-19 21:59] VITALS: BP 158/72; PULSE 67; RESP 16; TEMP 36.8; O2SAT 98
[2022-01-19 22:05] LABS: Glucose, Whole Blood 294 mg/dL (60-115)
[2022-01-20] VITALS: BP 147/63; PULSE 66; RESP 16; TEMP 36.5; O2SAT 99
[2022-01-20 05:21] LABS: Glucose, Whole Blood 303 mg/dL (60-115)
[2022-01-20 05:21] LABS: Glucose, Whole Blood 240 mg/dL (60-115)
[2022-01-20 06:00] VITALS: BP 138/63; PULSE 62; RESP 16; TEMP 37.2; O2SAT 98
[2022-01-20 07:38] LABS: Glucose, Whole Blood 159 mg/dL (60-115)
[2022-01-20] MEDS: Insulin Lispro 100 UNIT/ML 3 ML VIAL SUBCUT (08:01)
--- NOTE | 2022-01-20 08:46 | MHC.CM.ED ---
Patient remains in ER. Will d/c home with resumption of [employer] hours and VNA through [facility]. [facility] already booked. Patient, Jen VOSS and Yulia MENSAH aware. Alla from [facility] made aware via telephone at [phone]. Continue to monitor for d/c needs.
[2022-01-20] MEDS: Insulin Glargine,Hum.rec.anlog 100 UNIT/ML 10 ML VIAL 104 UNIT SUBCUT (09:03)
[2022-01-20] MEDS: Omeprazole 40 MG CAPSULE.DR PO (09:03)
[2022-01-20] MEDS: Torsemide 20 MG TABLET 40 MG PO (09:03)
[2022-01-20] MEDS: Gabapentin 100 MG CAPSULE PO (09:04)
[2022-01-20] MEDS: amLODIPine Besylate 10 MG TABLET PO (09:04)
[2022-01-20] MEDS: hydrALAZINE HCl 25 MG TABLET PO (09:05)
[2022-01-20] MEDS: Spironolactone 25 MG TABLET 50 MG PO (09:05)
[2022-01-20] MEDS: Nystatin Powder 15 GM BOTTLE 1 APPL TOPICAL (09:05)
[2022-01-20 09:07] VITALS: BP 142/62; PULSE 88
[2022-01-20] MEDS: Empagliflozin 10 MG TABLET PO (09:34)
== END 2022-01-20 10:29 | disposition home or self-care (01) ==
PROVIDERS: Emergency Medicine; Emergency Provider Internal Medicine; PCP Internal Medicine
DX: N39.0 Urinary tract infection, site not specified (principal); I13.0 Hypertensive heart and chronic kidney disease with heart failure and stage 1 through stage 4 chronic kidney disease, or unspecified chronic kidney disease; E11.22 Type 2 diabetes mellitus with diabetic chronic kidney disease; N18.30 Chronic kidney disease, stage 3 unspecified; I50.30 Unspecified diastolic (congestive) heart failure; E66.01 Morbid (severe) obesity due to excess calories; Z68.44 Body mass index [BMI] 60.0-69.9, adult; Z79.4 Long term (current) use of insulin; Z79.899 Other long term (current) drug therapy; Z99.3 Dependence on wheelchair; Z20.822 Contact with and (suspected) exposure to COVID-19
CPT/HCPCS: 80053; 81001; 82947; 83735; 84443; 85025; 87635; 96361; 96374; 97110; 97116; 97162; 99284; 99285; J0696

== ENCOUNTER → 2022-02-03 08:26 | Outpatient (BNVA) | payer MEDICARE, MEDICAID, SELFPAY | PROVIDERS: PCP Internal Medicine | DX: N39.0 Urinary tract infection, site not specified (principal) | CPT/HCPCS: Q3014 ==

== ENCOUNTER 2022-02-07 23:24 | Emergency (ER) | payer MEDICARE, MEDICAID, SELFPAY ==
[2022-02-07 23:32] VITALS: BP 118/44; BP 180/110; PULSE 64; PULSE 81; RESP 18; TEMP 37.3; O2SAT 97; O2SAT 98; BMI 60.4
--- NOTE | 2022-02-07 23:41 | ED.NAVMDI ---
HPI - Nausea/Vomiting/Diarrhea General Chief complaint: Nausea/Vomiting/Diarrhea Stated complaint: N/V Time Seen by Provider: 02/07/22 23:40 Related Data Home Medications Medication Instructions Recorded Confirmed amlodipine 5 mg tablet 10 mg PO DAILY 12/01/21 01/10/22 dapagliflozin 10 mg tablet 10 mg PO DAILY 12/01/21 01/10/22 ([facility]) ropinirole 0.25 mg tablet 0.25 mg PO BEDTIME 12/01/21 01/10/22 spironolactone 50 mg tablet 50 mg PO DAILY 12/01/21 01/10/22 nystatin 100,000 unit/gram topical 100,000 unit topical BID 01/05/22 01/10/22 powder insulin glargine U-300 conc 300 130 unit subcut DAILY 01/07/22 01/10/22 unit/mL (1.5 mL) subcutaneous pen (Toujeo SoloStar U-300 Insulin) insulin lispro 100 unit/mL 14 unit subcut TID 01/07/22 01/10/22 subcutaneous solution (Humalog U-100 Insulin) torsemide 20 mg tablet 1 tab PO BEDTIME 01/10/22 01/10/22 alcohol swabs (Alcohol Prep Pads) pad topical 02/03/22 amlodipine 10 mg tablet 10 mg PO DAILY 02/03/22 Previous Rx's Medication Instructions Recorded albuterol sulfate 90 mcg/actuation 2 puff inhalation Q4H PRN 03/24/21 aerosol inhaler bronchospasm 30 days #8.5 grams insulin syringe-needle U-100 1 mL #100 ea 03/26/21 30 gauge x 1/2 (BD Insulin Syringe Ultra-Fine) docusate sodium 100 mg capsule 200 mg PO BEDTIME #60 caps 06/13/21 hydralazine 25 mg tablet 25 mg PO TID #90 tabs 06/13/21 ondansetron 4 mg disintegrating 4 mg translingual TIDAC PRN nausea 06/13/21 tablet #12 tabs blood sugar diagnostic #200 ea 12/05/21 blood sugar diagnostic (Accu-Chek #300 ea 12/05/21 Berna Plus test strp) gabapentin 100 mg capsule 100 mg PO BID #60 caps 01/08/22 pen needle, diabetic 32 gauge x #100 ea 01/09/22 sulfamethoxazole 800 1 tab PO BID 5 days #10 tabs 01/12/22 mg-trimethoprim 160 mg tablet (Bactrim DS) omeprazole 40 mg capsule,delayed 40 mg PO DAILY #30 caps 02/02/22 release oxybutynin chloride 5 mg 5 mg PO DAILY #30 tabs 02/02/22 tablet,extended release 24 hr torsemide 20 mg tablet 40 mg PO DAILY #90 tabs 02/02/22 Allergies Allergy/AdvReac Type Severity Reaction Status Date / Time metformin [METFORMIN] Allergy Severe HIVES Verified 02/03/22 08:27 canagliflozin [From Invokana] Allergy Hives Verified 02/03/22 08:27 [facility] Past Medical History Medical History Acute kidney injury superimposed on chronic kidney disease Acute on chronic diastolic (congestive) heart failure Alteration in skin integrity due to moisture Anemia Bladder outlet obstruction CKD (chronic kidney disease) stage 4, GFR 15-29 ml/min Clostridium difficile diarrhea Detrusor dysfunction Esophagitis Essential hypertension Frequent UTI Heart failure with preserved ejection fraction Hyperkalemia Hypothyroidism IBS (irritable bowel syndrome) Morbid obesity Type 2 diabetes mellitus with obesity UTI (urinary tract infection) Surgical History History of tubal ligation Family History Family History Father Diabetes Mother Diabetes Hypertension Breast cancer Family/Other Breast cancer Uterine cancer Social History Social History Household Members: None Housing: Apartment Do you presently have visiting nurse or other home services: Yes Alcohol intake: never Patient Tobacco Use Status: Never used Tobacco e-Cigarette/Vaping Use: Never Used Second Hand Smoke Exposure: No Advance Directives: Yes Advance Directives on File: Yes Advance Directives Date on File: 10/09/20 service: No Current occupational status: disabled Cognitive needs: No Hearing needs: No Vision needs: Yes Physical Exam Vital Signs: Vital Signs: Last Vital Signs Temp 99.1 F 02/07/22 23:32 Pulse 64 02/07/22 23:32 Resp 18 02/07/22 23:32 BP 118/44 L 02/07/22 23:32 Pulse Ox 98 02/07/22 23:32 O2 Del Method 02/07/22 23:32 BMI result Body Mass Index 60.4 Discharge Plan Discharge Prescriptions: No [facility] albuterol sulfate 90 mcg/actuation HFA aerosol inhaler 2 puff inhalation Q4H PRN (Reason: bronchospasm) 30 Days Qty: 8.5 5RF (DME) insulin syringe-needle U-100 [BD Insulin Syringe Ultra-Fine] 1 mL 30 gauge x 1/2 syringe See Rx Instructions .ROUTE .MEDSUPPLY Qty: 100 3RF Rx Instructions: TID (DME) Accu-Chek Berna Plus test strp Strip See Rx Instructions .Route Qty: 300 8RF Rx Instructions: to check blood sugars five times a day (DME) blood sugar diagnostic Strip See Rx Instructions .ROUTE .MEDSUPPLY Qty: 200 8RF Rx Instructions: FREESTYLE TEST STRIPS gabapentin 100 mg capsule 100 mg PO BID Qty: 60 0RF (DME) pen needle, diabetic 32 gauge x 5/32 needle See Rx Instructions .Route Qty: 100 0RF Rx Instructions: As directed sulfamethoxazole-trimethoprim [Bactrim DS] 800-160 mg tablet 1 tab PO BID 5 Days Qty: 10 0RF torsemide 20 mg tablet 40 mg PO DAILY Qty: 90 0RF Protocol: Hold for SBP< HOLD for SBP < : 90 Rx Instructions: Takes 2 tab in the morning and 1 tab at nights omeprazole 40 mg capsule,delayed release(DR/EC) 40 mg PO DAILY Qty: 30 0RF oxybutynin chloride 5 mg tablet extended release 24 hr 5 mg PO DAILY Qty: 30 0RF hydralazine 25 mg Tablet 25 mg PO TID Qty: 90 0RF Protocol: Hold for SBP< HOLD for SBP < : 90 docusate sodium 100 mg Capsule 200 mg PO BEDTIME Qty: 60 0RF ondansetron 4 mg Tablet,Disintegrating 4 mg translingual TIDAC PRN (Reason: nausea) Qty: 12 0RF torsemide 20 mg tablet 1 tab PO BEDTIME ropinirole 0.25 mg tablet 0.25 mg PO BEDTIME amlodipine 5 mg tablet 10 mg PO DAILY Farxiga 10 mg tablet 10 mg PO DAILY spironolactone 50 mg tablet 50 mg PO DAILY Tacho Barber U-300 Insulin 300 unit/mL (1.5 mL) insulin pen 130 unit subcut DAILY insulin lispro [Humalog U-100 Insulin] 100 unit/mL solution 14 unit subcut TID Rx Instructions: Patient uses a sliding scale nystatin 100,000 unit/gram powder 100,000 unit topical BID alcohol swabs [Alcohol Prep Pads] Pads, Medicated topical amlodipine 10 mg tablet 10 mg PO DAILY
--- NOTE | 2022-02-07 23:55 | ED_ITS ---
HPI - General Adult General Chief complaint: Nausea/Vomiting/Diarrhea Stated complaint: N/V Time Seen by Provider: 02/07/22 23:40 Source: patient Mode of arrival: EMS Limitations: no limitations History of Present Illness HPI narrative: Patient morbidly obese nonambulatory with multiple comorbid conditions was here for 10 days in the ER for placement ultimately discharged home to be placed as outpatient comes here again as feeling weak for last few days feel that she might have UTI no nausea no vomiting no fever no cough patient doing multiple reason to stay in the hospital was in rehab for 5 months earlier this year too Related Data Home Medications Medication Instructions Recorded Confirmed amlodipine 5 mg tablet 10 mg PO DAILY 12/01/21 01/10/22 dapagliflozin 10 mg tablet 10 mg PO DAILY 12/01/21 01/10/22 (Farxiga) ropinirole 0.25 mg tablet 0.25 mg PO BEDTIME 12/01/21 01/10/22 spironolactone 50 mg tablet 50 mg PO DAILY 12/01/21 01/10/22 nystatin 100,000 unit/gram topical 100,000 unit topical BID 01/05/22 01/10/22 powder insulin glargine U-300 conc 300 130 unit subcut DAILY 01/07/22 01/10/22 unit/mL (1.5 mL) subcutaneous pen (Toujeo SoloStar U-300 Insulin) insulin lispro 100 unit/mL 14 unit subcut TID 01/07/22 01/10/22 subcutaneous solution (Humalog U-100 Insulin) torsemide 20 mg tablet 1 tab PO BEDTIME 01/10/22 01/10/22 alcohol swabs (Alcohol Prep Pads) pad topical 02/03/22 amlodipine 10 mg tablet 10 mg PO DAILY 02/03/22 Previous Rx's Medication Instructions Recorded albuterol sulfate 90 mcg/actuation 2 puff inhalation Q4H PRN 03/24/21 aerosol inhaler bronchospasm 30 days #8.5 grams insulin syringe-needle U-100 1 mL #100 ea 03/26/21 30 gauge x 1/2 (BD Insulin Syringe Ultra-Fine) docusate sodium 100 mg capsule 200 mg PO BEDTIME #60 caps 06/13/21 hydralazine 25 mg tablet 25 mg PO TID #90 tabs 06/13/21 ondansetron 4 mg disintegrating 4 mg translingual TIDAC PRN nausea 06/13/21 tablet #12 tabs blood sugar diagnostic #200 ea 12/05/21 blood sugar diagnostic (Accu-Chek #300 ea 12/05/21 Berna Plus test strp) gabapentin 100 mg capsule 100 mg PO BID #60 caps 01/08/22 pen needle, diabetic 32 gauge x #100 ea 01/09/22 sulfamethoxazole 800 1 tab PO BID 5 days #10 tabs 01/12/22 mg-trimethoprim 160 mg tablet (Bactrim DS) omeprazole 40 mg capsule,delayed 40 mg PO DAILY #30 caps 02/02/22 release oxybutynin chloride 5 mg 5 mg PO DAILY #30 tabs 02/02/22 tablet,extended release 24 hr torsemide 20 mg tablet 40 mg PO DAILY #90 tabs 02/02/22 Allergies Allergy/AdvReac Type Severity Reaction Status Date / Time metformin [METFORMIN] Allergy Severe HIVES Verified 02/03/22 08:27 canagliflozin [From Invokana] Allergy Hives Verified 02/03/22 08:27 Review of Systems Review of Systems: Yes all other systems are reviewed and are negative [facility] Past Medical History Medical History Acute kidney injury superimposed on chronic kidney disease Acute on chronic diastolic (congestive) heart failure Alteration in skin integrity due to moisture Anemia Bladder outlet obstruction CKD (chronic kidney disease) stage 4, GFR 15-29 ml/min Clostridium difficile diarrhea Detrusor dysfunction Esophagitis Essential hypertension Frequent UTI Heart failure with preserved ejection fraction Hyperkalemia Hypothyroidism IBS (irritable bowel syndrome) Morbid obesity Type 2 diabetes mellitus with obesity UTI (urinary tract infection) Surgical History History of tubal ligation Family History Family History Father Diabetes Mother Diabetes Hypertension Breast cancer Family/Other Breast cancer Uterine cancer Social History Social History Household Members: None Housing: Apartment Do you presently have visiting nurse or other home services: Yes Alcohol intake: never Patient Tobacco Use Status: Never used Tobacco e-Cigarette/Vaping Use: Never Used Second Hand Smoke Exposure: No Advance Directives: Yes Advance Directives on File: Yes Advance Directives Date on File: 10/09/20 service: No Current occupational status: disabled Cognitive needs: No Hearing needs: No Vision needs: Yes Physical Exam ED Vital Signs: Vital Signs - 24 hr 02/07/22 23:32 02/08/22 00:18 Temperature 99.1 F Pulse Rate 64 63 Respiratory Rate 18 20 Blood Pressure 118/44 L 150/58 H Pulse Oximetry 98 98 Oxygen Delivery Method Room Air Room Air BMI result Body Mass Index 60.4 Appearance: Alert. Oriented X3. No acute distress. Morbidly obese Eyes: PERRLA, No Nystagmus ENT: Pharynx normal. Oral Mucosa moist Neck: Normal inspection. Neck supple. CVS: Normal heart rate and rhythm. Pulses normal. Respiratory: No respiratory distress. Equal air entry bilateral, no wheezing/rales/rhonchi Abdomen: Soft and nontender. Bowel sounds are present, no mass palpable, no CVA tenderness Skin: Skin warm and dry. Normal skin color. Normal skin turgor. Extremities: No lower extremity edema. No calf tenderness Neuro: Oriented X 3. Limited lower extremity movements. No sensory deficit.No cerebellar signs , cranial nerves II-XII intact Medical Decision Making MDM Narrative Medical decision making narrative: Patient with stable labs stable renal functions no UTI will discharge patient home advised to continue drink plenty of fluids follow up with case management as outpatient for placement as planned Lab Data Lab results reviewed: Yes I reviewed the patient's lab results. Result diagrams: 02/08/22 00:30 02/08/22 00:30 Labs: Lab Results 02/08/22 02/08/22 02/08/22 Range/Units 00:30 00:30 00:30 WBC 14.6 H (4.8-10.8) X10*3/uL RBC 2.88 L (4.20-5.50) X10*6/uL Hgb 8.5 L (12.0-16.0) g/dl Hct 26.3 L (37.0-47.0) % MCV 91.3 (80.0-98.0) fL MCH 29.5 (27.0-33.0) pg MCHC 32.3 (31.0-35.0) g/dl RDW 13.9 (11.0-16.0) % Plt Count 247 (160-400) X10*3/uL MPV 9.7 (9.4-12.3) fL Immature Gran % (Auto) 0.6 H (0.0-0.4) % Neut % (Auto) 74.4 H (45-73) % Lymph % (Auto) 14.4 L (20-40) % Worth % (Auto) 7.0 (2-11) % Eos % (Auto) 3.3 (0-4) % Baso % (Auto) 0.3 (0-2) % Lymph # (Auto) 2.1 (1.2-4.9) X10*3/uL Worth # (Auto) 1.0 (0.1-1.2) X10*3/uL Eos # (Auto) 0.5 H (0.0-0.4) X10*3/uL Baso # (Auto) 0.0 (0.0-0.2) X10*3/uL Abs Immat Gran (auto) 0.09 H (0.00-0.03) X10*3/uL Absolute Neuts (auto) 10.8 H (2.0-8.3) x10*3/uL Absolute Nucleated RBC 0.000 (0.0-0.012) X10*3/uL Nucleated RBC % (auto) 0.0 (0.0-0.2) /100WBC Sodium 138 (135-145) mmol/L Potassium 5.0 (3.3-5.1) mmol/L Chloride 105 (96-108) mmol/L Carbon Dioxide 23 (22-29) mmol/L Anion Gap 15 (12-20) BUN 82 H (9-16) mg/dL Creatinine 3.15 H (0.5-1.4) mg/dL Estim Creat Clear Calc 29.8 Estimated GFR 15 Random Glucose 198 H (60-115) mg/dL Calcium 8.6 D (8.4-10.2) mg/dL Total Bilirubin 0.3 (0.0-1.0) mg/dL AST 13 (5-31) U/L ALT 12 (0-31) U/L Alkaline Phosphatase 122 H (39-117) U/L Total Protein 6.7 (6.5-8.0) g/dL Albumin 3.4 L (3.5-5.0) g/dL Urine Color Urine Appearance Urine pH (5.0-8.0) Ur Specific Mckenzie (1.005-1.025) Urine Protein (NEG-TRACE) MG/DL Urine Glucose (UA) (NEG) MG/DL Urine Ketones (NEG) MG/DL Urine Blood (NEG) Urine Nitrite (NEG) Ur Leukocyte Esterase (NEG) Urine RBC (0) /HPF Urine WBC (0-4) /HPF Ur Squamous Epith Cells /LPF Urine Bacteria /LPF COVID-19 ([facility]) Negative (Negative) COVID-19 Clin Com See Note 02/08/22 Range/Units 00:30 WBC (4.8-10.8) X10*3/uL RBC (4.20-5.50) X10*6/uL Hgb (12.0-16.0) g/dl Hct (37.0-47.0) % MCV (80.0-98.0) fL MCH (27.0-33.0) pg MCHC (31.0-35.0) g/dl RDW (11.0-16.0) % Plt Count (160-400) X10*3/uL MPV (9.4-12.3) fL Immature Gran % (Auto) (0.0-0.4) % Neut % (Auto) (45-73) % Lymph % (Auto) (20-40) % Worth % (Auto) (2-11) % Eos % (Auto) (0-4) % Baso % (Auto) (0-2) % Lymph # (Auto) (1.2-4.9) X10*3/uL Worth # (Auto) (0.1-1.2) X10*3/uL Eos # (Auto) (0.0-0.4) X10*3/uL Baso # (Auto) (0.0-0.2) X10*3/uL Abs Immat Gran (auto) (0.00-0.03) X10*3/uL Absolute Neuts (auto) (2.0-8.3) x10*3/uL Absolute Nucleated RBC (0.0-0.012) X10*3/uL Nucleated RBC % (auto) (0.0-0.2) /100WBC Sodium (135-145) mmol/L Potassium (3.3-5.1) mmol/L Chloride (96-108) mmol/L Carbon Dioxide (22-29) mmol/L Anion Gap (12-20) BUN (9-16) mg/dL Creatinine (0.5-1.4) mg/dL Estim Creat Clear Calc Estimated GFR Random Glucose (60-115) mg/dL Calcium (8.4-10.2) mg/dL Total Bilirubin (0.0-1.0) mg/dL AST (5-31) U/L ALT (0-31) U/L Alkaline Phosphatase (39-117) U/L Total Protein (6.5-8.0) g/dL Albumin (3.5-5.0) g/dL Urine Color STRAW Urine Appearance CLEAR Urine pH 6.0 (5.0-8.0) Ur Specific Mckenzie 1.015 (1.005-1.025) Urine Protein 2+ H (NEG-TRACE) MG/DL Urine Glucose (UA) 250 H (NEG) MG/DL Urine Ketones NEG (NEG) MG/DL Urine Blood TRACE (NEG) Urine Nitrite NEG (NEG) Ur Leukocyte Esterase NEG (NEG) Urine RBC 0 (0) /HPF Urine WBC 0 (0-4) /HPF Ur Squamous Epith Cells 1+ /LPF Urine Bacteria 1+ /LPF COVID-19 ([facility]) (Negative) COVID-19 Clin Com Discharge Plan Discharge Clinical Impression: Weakness, CKD (chronic kidney disease) stage 3, GFR 30-59 ml/min Patient Disposition: Home, Self-Care Instructions: Chronic Kidney Disease (ED), Weakness (ED) Additional Instructions: Continue your medication follow up with PCP for further evaluation Prescriptions: No Action albuterol sulfate 90 mcg/actuation HFA aerosol inhaler 2 puff inhalation Q4H PRN (Reason: bronchospasm) 30 Days Qty: 8.5 5RF (DME) insulin syringe-needle U-100 [BD Insulin Syringe Ultra-Fine] 1 mL 30 gauge x 1/2 syringe See Rx Instructions .ROUTE .MEDSUPPLY Qty: 100 3RF Rx Instructions: TID (DME) Accu-Chek Berna Plus test strp Strip See Rx Instructions .Route Qty: 300 8RF Rx Instructions: to check blood sugars five times a day (DME) blood sugar diagnostic Strip See Rx Instructions .ROUTE .MEDSUPPLY Qty: 200 8RF Rx Instructions: FREESTYLE TEST STRIPS gabapentin 100 mg capsule 100 mg PO BID Qty: 60 0RF (DME) pen needle, diabetic 32 gauge x 5/32 needle See Rx Instructions .Route Qty: 100 0RF Rx Instructions: As directed sulfamethoxazole-trimethoprim [Bactrim DS] 800-160 mg tablet 1 tab PO BID 5 Days Qty: 10 0RF torsemide 20 mg tablet 40 mg PO DAILY Qty: 90 0RF Protocol: Hold for SBP< HOLD for SBP < : 90 Rx Instructions: Takes 2 tab in the morning and 1 tab at nights omeprazole 40 mg capsule,delayed release(DR/EC) 40 mg PO DAILY Qty: 30 0RF oxybutynin chloride 5 mg tablet extended release 24 hr 5 mg PO DAILY Qty: 30 0RF hydralazine 25 mg Tablet 25 mg PO TID Qty: 90 0RF Protocol: Hold for SBP< HOLD for SBP < : 90 docusate sodium 100 mg Capsule 200 mg PO BEDTIME Qty: 60 0RF ondansetron 4 mg Tablet,Disintegrating 4 mg translingual TIDAC PRN (Reason: nausea) Qty: 12 0RF torsemide 20 mg tablet 1 tab PO BEDTIME ropinirole 0.25 mg tablet 0.25 mg PO BEDTIME amlodipine 5 mg tablet 10 mg PO DAILY Farxiga 10 mg tablet 10 mg PO DAILY spironolactone 50 mg tablet 50 mg PO DAILY Tacho Barber U-300 Insulin 300 unit/mL (1.5 mL) insulin pen 130 unit subcut DAILY insulin lispro [Humalog U-100 Insulin] 100 unit/mL solution 14 unit subcut TID Rx Instructions: Patient uses a sliding scale nystatin 100,000 unit/gram powder 100,000 unit topical BID alcohol swabs [Alcohol Prep Pads] Pads, Medicated topical amlodipine 10 mg tablet 10 mg PO DAILY
[2022-02-08 00:18] VITALS: BP 150/58; PULSE 63; RESP 20; O2SAT 98
[2022-02-08 00:37] LABS: MANUAL DIFF FLAG NO
[2022-02-08 00:38] LABS: Basophils Percent Auto 0.3 % (0-2); Eosinophils Absolute Auto 0.5 X10*3/uL (0.0-0.4); Eosinophils Percent Auto 3.3 % (0-4); Hematocrit 26.3 % (37.0-47.0); Hemoglobin 8.5 g/dl (12.0-16.0); Imm Gran Abs Auto 0.09 X10*3/uL (0.00-0.03); Imm Gran Pct Auto 0.6 % (0.0-0.4); Lymphocytes Absolute Auto 2.1 X10*3/uL (1.2-4.9); Lymphocytes Percent Auto 14.4 % (20-40); Mean Corpuscular HGB Conc 32.3 g/dl (31.0-35.0); Mean Corpuscular Hemoglobin 29.5 pg (27.0-33.0); Mean Corpuscular Volume 91.3 fL (80.0-98.0); Mean Platelet Volume 9.7 fL (9.4-12.3); Neutrophils Absolute Auto 10.8 x10*3/uL (2.0-8.3); Neutrophils Percent Auto 74.4 % (45-73); Platelet Count 247 X10*3/uL (160-400); Red Blood Count 2.88 X10*6/uL (4.20-5.50); Red Cell Distribution Width 13.9 % (11.0-16.0); White Blood Count 14.6 X10*3/uL (4.8-10.8)
[2022-02-08 00:40] LABS: Appearance Urine CLEAR; Color Urine STRAW; Glucose Urine UA 250 MG/DL (NEG); Leukocyte Esterase Urine NEG (NEG); Nitrite Urine NEG (NEG); Specific Gravity - Urine 1.015 (1.005-1.025); UACC Culture Trigger NO; Urine Blood TRACE (NEG); Urine Ketones NEG (NEG); Urine Protein 2+ MG/DL (NEG-TRACE)
[2022-02-08] MEDS: Ondansetron ODT 4 MG TAB.RAPDIS TRANSLINGU (00:40)
[2022-02-08 00:48] LABS: Bacteria Urine 1+ /LPF; RBC Urine 0 /HPF (0); Squamous Epithelial Cell Urine 1+ /LPF; WBC Urine 0 /HPF (0-4)
[2022-02-08 00:54] LABS: COVID-19 Test Negative (Negative)
[2022-02-08 01:02] LABS: Alanine Aminotransferase 12 U/L (0-31); Albumin Level 3.4 g/dL (3.5-5.0); Alkaline Phosphatase 122 U/L (39-117); Anion Gap 15 (12-20); Aspartate Amino Transferase 13 U/L (5-31); Bilirubin Total 0.3 mg/dL (0.0-1.0); Blood Urea Nitrogen 82 mg/dL (9-16); Calcium 8.6 mg/dL (8.4-10.2); Carbon Dioxide 23 mmol/L (22-29); Chloride 105 mmol/L (96-108); Creatinine Clr Calc Pharmacy 29.8; Estimated Glomerular Filt Rate 15; Glucose Random 198 mg/dL (60-115); Sodium 138 mmol/L (135-145); Total Protein 6.7 g/dL (6.5-8.0)
--- NOTE | 2022-02-08 03:00 | PC.NURSE ---
Took report lisa Avalos to assume care of Pt, Pt resting, call light in reach, this RN continues to monitor.
[2022-02-08 03:30] VITALS: BP 135/62; PULSE 65; RESP 20; O2SAT 94
== END 2022-02-08 03:44 | disposition home or self-care (01) ==
PROVIDERS: Emergency Provider Internal Medicine; PCP Internal Medicine
DX: R53.1 Weakness (principal); I13.0 Hypertensive heart and chronic kidney disease with heart failure and stage 1 through stage 4 chronic kidney disease, or unspecified chronic kidney disease; N18.30 Chronic kidney disease, stage 3 unspecified; I50.32 Chronic diastolic (congestive) heart failure; E11.22 Type 2 diabetes mellitus with diabetic chronic kidney disease; Z20.822 Contact with and (suspected) exposure to COVID-19
CPT/HCPCS: 80053; 81001; 85025; 87635; 99283; 99284

== ENCOUNTER → 2022-03-06 12:37 | Outpatient (BNVA) | payer MEDICARE, MEDICAID, SELFPAY | PROVIDERS: PCP Internal Medicine | DX: N39.0 Urinary tract infection, site not specified (principal) | CPT/HCPCS: Q3014 ==

== ENCOUNTER 2022-04-15 14:01 | Outpatient (REF) | payer MEDICARE, MEDICAID, SELFPAY ==
[2022-04-15 17:11] LABS: Estimated Average Glucose 148 mg/dL; Hemoglobin A1c % 6.8 %
[2022-04-15 18:57] LABS: Alanine Aminotransferase 8 U/L (0-31); Albumin Level 3.8 g/dL (3.5-5.0); Alkaline Phosphatase 105 U/L (39-117); Anion Gap 19 (12-20); Aspartate Amino Transferase 9 U/L (5-31); Bilirubin Total < 0.2 mg/dL (0.0-1.0); Blood Urea Nitrogen 78 mg/dL (9-16); Calcium 9.1 mg/dL (8.4-10.2); Carbon Dioxide 20 mmol/L (22-29); Chloride 104 mmol/L (96-108); Cholesterol 256 mg/dL; Estimated Glomerular Filt Rate 10; Glucose Random 134 mg/dL (60-115); HDL Cholesterol 35 mg/dL; LDL Cholesterol Calculated 176 mg/dl; Potassium 5.6 mmol/L (3.3-5.1); Sodium 137 mmol/L (135-145); Total Protein 7.5 g/dL (6.5-8.0); Triglycerides 229 mg/dL
[2022-04-16 22:23] LABS: LDL Cholesterol Direct 172 mg/dL (<100)
== END 2022-04-15 14:02 | disposition home or self-care (01) ==
LOC: HO.LAB 14:01
PROVIDERS: PCP Internal Medicine; Visit Provider Internal Medicine
DX: E11.9 Type 2 diabetes mellitus without complications (principal); E78.5 Hyperlipidemia, unspecified; I10 Essential (primary) hypertension
CPT/HCPCS: 36415; 80053; 80061; 82947; 83036; 83721; 99202

== ENCOUNTER → 2022-04-30 14:52 | Outpatient (BNVA) | payer MEDICARE, MEDICAID, SELFPAY | PROVIDERS: PCP Internal Medicine; Visit Provider Registered Nurse Diabetes Educator | DX: E11.9 Type 2 diabetes mellitus without complications (principal) | CPT/HCPCS: 99211 ==

== ENCOUNTER → 2022-06-04 14:50 | Outpatient (BNVA) | payer MEDICARE, MEDICAID, SELFPAY | PROVIDERS: Visit Provider Registered Nurse Diabetes Educator | DX: E11.9 Type 2 diabetes mellitus without complications (principal) | CPT/HCPCS: 99211 ==

== ENCOUNTER 2022-06-04 16:29 | Emergency (ER) | payer MEDICARE, MEDICAID, SELFPAY ==
--- NOTE | ~2022-06-04 | CT_ITS ---
EXAMINATION: CT ABDOMEN AND PELVIS WITHOUT CONTRAST CLINICAL INFORMATION: Abdominal pain and fullness. Rule out bowel obstruction. COMPARISON: Previous CT of the abdomen and pelvis most recent May 2021 TECHNIQUE: Multidetector volumetric imaging was performed from the superior aspect of the liver through the pubic symphysis. Sagittal and coronal reformatted images were obtained on the technologist's workstation. This CT examination was performed using dose optimization techniques as appropriate, variously including the following: *Automated exposure control *Adjustment of mA and/or kV according to patient size (this includes techniques or standardized protocols for targeted exams where dose is matched to indication/reason for exam; i.e. extremities or head) *Use of iterative reconstruction technique DLP: 1364 mGy-cm FINDINGS: LUNG BASES: The visualized lung bases are unremarkable. LIVER, GALLBLADDER, AND BILIARY TREE: The liver is normal in size, shape, and attenuation. No focal hepatic lesion or biliary ductal dilatation is present. The gallbladder is unremarkable with no evidence of radiopaque gallstones, gallbladder wall thickening, or obvious pericholecystic inflammatory changes. PANCREAS: Unremarkable. SPLEEN: Unremarkable. ADRENAL GLANDS: Unremarkable. KIDNEYS AND URETERS: There are nonobstructing right renal stones, largest measuring 4 mm in the upper pole. The kidneys are otherwise normal. No hydronephrosis. BLADDER: Unremarkable. GASTROINTESTINAL TRACT: There is no evidence of bowel obstruction. There is increased soft tissue at the ileocecal valve. This measures 2 x 4 cm. It is difficult to exclude a mass. Correlation with colonoscopy recommended. There is mild diverticulosis. No evidence of diverticulitis. Small and large bowel is otherwise normal. The appendix is not seen. The stomach is normal. ABDOMINAL WALL: No significant hernia is appreciated. LYMPH NODES: There is bilateral inguinal lymphadenopathy. No enlarged lymph nodes. No ascites. VASCULAR: Unremarkable. PELVIC VISCERA: Unremarkable. OSSEOUS STRUCTURES: Degenerative changes of the spine. CT/CT abdomen pelvis wo IV con IMPRESSION: No evidence of obstruction. Increased soft tissue at the ileocecal valve. Correlation with colonoscopy to exclude mass recommended. Mild diverticulosis. No evidence of diverticulitis. Nonobstructing small right renal stones. Fleischner guidelines were followed.
--- NOTE | ~2022-06-04 | XR_ITS ---
EXAMINATION: XR CHEST CLINICAL INFORMATION: Cough. Shortness of breath. COMPARISON: Chest x-ray 05/31/2021 TECHNIQUE: 2 views of the chest were obtained. FINDINGS: No significant abnormality is noted involving the heart, lungs, mediastinum, bony thorax or soft tissues. XR/XR chest 2V IMPRESSION: Unremarkable examination.
[2022-06-04 17:11] VITALS: BP 153/61; BP 154/73; PULSE 67; PULSE 88; RESP 16; TEMP 36.8; O2SAT 100; O2SAT 99; BMI 62.5
[2022-06-04] MEDS: Albuterol Sulfate 7.5 MG, Albuterol Sulfate (0.083%) 2.5 MG 10 MG INHALE (18:27)
[2022-06-04 18:28] VITALS: PULSE 77; RESP 20; O2SAT 100
[2022-06-04 18:31] LABS: MANUAL DIFF FLAG NO
[2022-06-04 18:32] LABS: Basophils Absolute Auto 0.1 X10*3/uL (0.0-0.2); Basophils Percent Auto 0.5 % (0-2); Eosinophils Percent Auto 7.2 % (0-4); Hematocrit 35.8 % (37.0-47.0); Hemoglobin 11.4 g/dl (12.0-16.0); Imm Gran Abs Auto 0.08 X10*3/uL (0.00-0.03); Imm Gran Pct Auto 0.6 % (0.0-0.4); Lymphocytes Absolute Auto 1.6 X10*3/uL (1.2-4.9); Lymphocytes Percent Auto 11.6 % (20-40); Mean Corpuscular HGB Conc 31.8 g/dl (31.0-35.0); Mean Corpuscular Hemoglobin 28.4 pg (27.0-33.0); Mean Corpuscular Volume 89.3 fL (80.0-98.0); Mean Platelet Volume 9.3 fL (9.4-12.3); Monocytes Percent Auto 7.4 % (2-11); Neutrophils Absolute Auto 10.3 x10*3/uL (2.0-8.3); Neutrophils Percent Auto 72.7 % (45-73); Platelet Count 270 X10*3/uL (160-400); Red Blood Count 4.01 X10*6/uL (4.20-5.50); Red Cell Distribution Width 13.7 % (11.0-16.0); White Blood Count 14.1 X10*3/uL (4.8-10.8)
--- NOTE | 2022-06-04 18:34 | ED_ITS ---
HPI - Abdominal Pain General Chief Complaint: General Medical <MAKENNA Mason - Last Filed: 06/04/22 19:34> Stated Complaint: Bowel obstruction <MAKENNA Mason - Last Filed: 06/04/22 19:34> Time Seen by Provider: 06/04/22 17:25 <MAKENNA Mason - Last Filed: 06/04/22 19:34> Source: patient and EMS <MAKENNA Mason - Last Filed: 06/04/22 19:34> Mode of arrival: EMS <MAKENNA Mason - Last Filed: 06/04/22 19:34> Limitations: language barrier (Icelandic-speaking) <MAKENNA Mason Last Filed: 06/04/22 19:34> History of Present Illness HPI narrative: 61-year-old female with a past medical history of DM Type II, HTN, diastolic heart failure, CKD stage 3 not on HD, JULIUS, lymphedema, edema, anemia, anxiety, restless leg syndrome, GERD, spinal stenosis and obesity who is currently at a short-term rehab presenting to the ED via EMS after she had a abdominal x-ray by the short-term rehab which revealed per patient ?bowel obstruction?. Patient reports that a few days ago she was unable to have a bowel movement therefore she was given bowel medications from the short-term rehab to help her with her bowels. She reports she had large soft bowel movement on Wednesday and reports it was not diarrhea although was not completely form either. She reports since Wednesday she has not had a bowel movement. Although due to the x-ray that they obtained today they made her come here for further evaluation treatment for a possible bowel obstruction after the x-ray. She reports she has been nauseated and feels ?fullness to her abdomen. She reports she has never had abdominal surgery and she has never had a bowel obstruction. She reports she is having mild abdominal pain on the right side. She also admits to having a dry cough with shortness of breath with wheezing since yesterday. Although reports that she has not received any breathing treatments at the short-term rehab due to she reports they told her there are no ?orders for this?. She denies any fevers, chills, dizziness, headaches, neck pain/stiffness, sore throat, nasal congestion/rhinorrhea, chest pain, sputum production, back pain, flank pain, dysuria, hematuria, abnormal vaginal discha rge, rashes, worsening lower extremity edema, calf tenderness, recent travel or sick contacts or any other symptoms or complaints at this time. <MAKENNA Mason - Last Filed: 06/04/22 19:34> MD elicited complaint: abdominal pain <MAKENNA Mason - Last Filed: 06/04/22 19:34> Pertinent past history: other (See above) <MAKENNA Mason - Last Filed: 06/04/22 19:34> Onset (ago): day(s) (2 days) <MAKENNA Mason - Last Filed: 06/04/22 19:34> Pain Consistency: constant <MAKENNA Mason - Last Filed: 06/04/22 19:34> Location: RUQ and RLQ <MAKENNA Mason - Last Filed: 06/04/22 19:34> Severity: mild <MAKENNA Mason - Last Filed: 06/04/22 19:34> Quality: fullness <MAKENNA Mason - Last Filed: 06/04/22 19:34> Radiation: none <MAKENNA Mason - Last Filed: 06/04/22 19:34> Migration to: no migration <MAKENNA Mason - Last Filed: 06/04/22 19:34> Exacerbating factors: nothing <MAKENNA Mason - Last Filed: 06/04/22 19:34> Relieving factors: nothing <MAKENNA Mason - Last Filed: 06/04/22 19:34> Associated symptoms: nausea and other (Cough/shortness of breath) <MAKENNA Mason Last Filed: 06/04/22 19:34> Related Data Home Medications: Home Medications Medication Instructions Recorded Confirmed ropinirole 0.25 mg tablet 0.25 mg PO BEDTIME 12/01/21 04/15/22 spironolactone 50 mg tablet 50 mg PO DAILY 12/01/21 04/15/22 nystatin 100,000 unit/gram topical 100,000 unit topical BID 01/05/22 04/15/22 powder insulin lispro 100 unit/mL 14 unit subcut TID 01/07/22 04/15/22 subcutaneous solution (Humalog U-100 Insulin) torsemide 20 mg tablet 1 tab PO BEDTIME 01/10/22 04/15/22 alcohol swabs (Alcohol Prep Pads) pad topical 02/03/22 04/15/22 amlodipine 10 mg tablet 10 mg PO DAILY 02/03/22 04/15/22 ciprofloxacin HCl 250 mg tablet 250 mg PO BID 03/06/22 04/15/22 esomeprazole magnesium 40 mg 40 mg PO DAILY 03/06/22 04/15/22 capsule,delayed release nitrofurantoin 1 cap PO BID 03/06/22 04/15/22 monohydrate/macrocrystals 100 mg capsule oxybutynin chloride 15 mg 15 mg PO DAILY 03/06/22 04/15/22 tablet,extended release 24 hr ropinirole 0.5 mg tablet 0.5 mg PO BEDTIME 03/06/22 04/15/22 insulin glargine U-300 conc 300 120 unit subcut DAILY 04/15/22 04/15/22 unit/mL (1.5 mL) subcutaneous pen ([employer] SoloStar U-300 Insulin) Previous Rx's Medication Instructions Recorded albuterol sulfate 90 mcg/actuation 2 puff inhalation Q4H PRN 03/24/21 aerosol inhaler bronchospasm 30 days #8.5 grams insulin syringe-needle U-100 1 mL #100 ea 03/26/21 30 gauge x 1/2 (BD Insulin Syringe Ultra-Fine) docusate sodium 100 mg capsule 200 mg PO BEDTIME #60 caps 06/13/21 hydralazine 25 mg tablet 25 mg PO TID #90 tabs 06/13/21 blood sugar diagnostic #200 ea 12/05/21 blood sugar diagnostic (Accu-Chek #300 ea 12/05/21 Berna Plus test strips) pen needle, diabetic 32 gauge x #100 ea 01/09/22 sulfamethoxazole 800 1 tab PO BID 5 days #10 tabs 01/12/22 mg-trimethoprim 160 mg tablet (Bactrim DS) torsemide 20 mg tablet 40 mg PO DAILY #90 tabs 02/02/22 ondansetron 4 mg disintegrating 4 mg translingual TIDAC PRN nausea 02/09/22 tablet #12 tabs gabapentin 100 mg capsule 100 mg PO BID #60 caps 02/17/22 omeprazole 40 mg capsule,delayed 40 mg PO DAILY #30 caps 03/03/22 release oxybutynin chloride 5 mg 5 mg PO DAILY #30 tabs 03/03/22 tablet,extended release 24 hr semaglutide 0.25 mg or 0.5 mg (2 0.5 mg (0.4 mL) subcut QWEEK 4 04/15/22 mg/1.5 mL) subcutaneous pen doses #1.5 mL injector ([employer]) <MAKENNA Mason - Last Filed: 06/04/22 19:34> Allergies/Adverse Reactions: Allergies Allergy/AdvReac Type Severity Reaction Status Date / Time metformin [METFORMIN] Allergy Severe HIVES Verified 04/15/22 14:43 canagliflozin [From Invokana] Allergy Hives Verified 04/15/22 14:43 <MAKENNA Mason - Last Filed: 06/04/22 19:34> Review of Systems Review of Systems Constitutional : No Weight loss, No Fever, No Chills, No Night Sweats, No Fatigue, No Malaise ENT/Mouth : No Hearing loss, No Ear Pain, No Nasal Congestion, No Sinus Pain, No Hoarseness, No sore throat, No Rhinorrhea, No Swallowing Difficulty Eyes: No Eye Pain, No Swelling, No Redness, No Foreign Body, No Discharge, No Vision Changes Cardiovascular : No Chest Pain, + SOB, No Dyspnea on Exertion, No Orthopnea, No Edema, No Palpitations Respiratory : + Cough, + Wheezing, No Sputum production, No Smoke Exposure, No Dyspnea Gastrointestinal : + Nausea, + abdominal pain, + constipation, No Vomiting, No Diarrhea, No Hematochezia, No Melena Genitourinary : no irregular bleeding, No Dysuria, No Urinary Frequency, No Hematuria, No Urinary Incontinence, No Urgency, No Flank Pain, No Urinary Flow Changes, No Hesitancy Musculoskeletal : No joint pain, No Myalgias, No Joint Swelling Skin : No Skin Lesions, No rash Neuro : No Weakness, No Numbness, No Paresthesias, No Loss of Consciousness, No Dizziness, No Headache Psych : No Anxiety/Panic, No Depression, No SI/HI/AH/VH, No Social Issues, Heme/Lymph: No Bruising, No Bleeding,No Lymphadenopathy Endocrine : No Polyuria, No Polydipsia, No Temperature Intolerance <MAKENNA Mason - Last Filed: 06/04/22 19:34> Yes all other systems are reviewed and are negative <MAKENNA Mason - Last Filed: 06/04/22 19:34> [facility] Past Medical History Attestation statement: The following information was validated with the patient. <MAKENNA Mason - Last Filed: 06/04/22 19:34> Source: old records reviewed and nursing notes reviewed <MAKENNA Mason - Last Filed: 06/04/22 19:34> Medical History: Medical History Acute kidney injury superimposed on chronic kidney disease Acute on chronic diastolic (congestive) heart failure Alteration in skin integrity due to moisture Anemia Bladder outlet obstruction CKD (chronic kidney disease) stage 4, GFR 15-29 ml/min Clostridium difficile diarrhea Detrusor dysfunction Esophagitis Essential hypertension Frequent UTI Heart failure with preserved ejection fraction HLD (hyperlipidemia) HTN (hypertension) Hyperkalemia Hypothyroidism IBS (irritable bowel syndrome) Morbid obesity T2DM (type 2 diabetes mellitus) Type 2 diabetes mellitus with obesity UTI (urinary tract infection) <MAKENNA Mason - Last Filed: 06/04/22 19:34> Surgical History: Surgical History History of tubal ligation <MAKENNA Mason - Last Filed: 06/04/22 19:34> Family History Family History: Family History Father Diabetes Mother Diabetes Hypertension Breast cancer Family/Other Breast cancer Uterine cancer <MAKENNA Mason - Last Filed: 06/04/22 19:34> Social History Social History: Social History Household Members: None Housing: Apartment Do you presently have visiting nurse or other home services: Yes Alcohol intake: never Patient Tobacco Use Status: Former Tobacco user Quit Date: 08/30/2001 e-Cigarette/Vaping Use: Never Used Second Hand Smoke Exposure: No Advance Directives: Yes Advance Directives on File: Yes Advance Directives Date on File: 10/09/20 service: No Current occupational status: disabled Cognitive needs: No Hearing needs: No Vision needs: Yes <MAKENNA Mason - Last Filed: 06/04/22 19:34> Physical Exam ED Vital Signs: Vital Signs - 24 hr 06/04/22 17:11 06/04/22 18:28 06/04/22 18:40 Temperature 98.3 F Pulse Rate 67 77 99 Respiratory Rate 16 20 16 Blood Pressure 153/61 H Pulse Oximetry 99 100 Oxygen Delivery Method Room Air Room Air 06/04/22 21:11 Temperature Pulse Rate 99 Respiratory Rate Blood Pressure 149/67 H Pulse Oximetry 97 Oxygen Delivery Method Room Air BMI result Body Mass Index 62.5 vital signs have been reviewed as normal and appeared to be correct. Blood pressure 153/61. Heart rate normal. Respiration rate normal. Temperature normal. Oxygen saturation normal. <MAKENNA Mason - Last Filed: 06/04/22 19:34> Vital Signs - 24 hr 06/04/22 17:11 06/04/22 18:28 06/04/22 18:40 Temperature 98.3 F Pulse Rate 67 77 99 Respiratory Rate 16 20 16 Blood Pressure 153/61 H Pulse Oximetry 99 100 Oxygen Delivery Method Room Air Room Air 06/04/22 21:11 Temperature Pulse Rate 99 Respiratory Rate Blood Pressure 149/67 H Pulse Oximetry 97 Oxygen Delivery Method Room Air BMI result Body Mass Index 62.5 <MAKENNA Damon - Last Filed: 06/05/22 00:37> Appearance: Alert. Oriented X3. No acute distress. Head: Normal external exam. Normocephalic. Atraumatic. Eyes: PERRLA. EOMI. Conjunctiva and sclera normal. Eyelids normal. ENT: EAC normal. TM's Normal. No septal hematoma noted. No hemotympanum noted. Pharynx normal. Uvula midline. Moist mucous membranes. No lesions/ulcerations or masses noted on the tongue. Normal voice. No trismus noted. No drooling noted. No muffled voice noted. Neck: Normal inspection. Neck supple. FROM. No adenopathy. Thyroid Normal. No tracheal deviation noted. No crepitus is noted. No meningeal signs. No neck mass noted. No signs of trauma noted. CVS: Normal heart rate and rhythm. Heart sound normal. Pulses normal throughout. No murmurs/rales/gallops. Respiratory: No respiratory distress. Although patient noted to have decreased breath sounds with inspiratory and expiratory wheezing throughout. No rales/rhonchi noted. Painless inspiration. Chest nontender. No crepitus is noted. No signs of trauma noted. No accessory muscle usage noted. Abdomen: Soft and mild TTP to RUQ/RLQ area. Bowel sounds normal in all 4 qu adrants. No distention noted. No organomegaly noted. No visible injury noted. Back: No CVA tenderness. Full range of motion noted. Skin: Skin warm and dry. Normal skin color. Normal skin turgor. No rashes/lesions/lacerations noted. Extremities: No lower extremity edema. No calf tenderness is noted. Extremities exhibit normal range of motion and nontender. Neuro: Oriented X 3. No motor deficit. No sensory deficit. Reflexes normal. Normal steady gait. No focal neuro deficits noted. CN's II-XII intact bilaterally? Vascular: + radial pulses/+ 2 distal pedal pulses/+2 dorsalis pedis b/l. Normal cap refill. No cyanosis noted to upper extremity nails and lower extremity toes nails. <MAKENNA Mason - Last Filed: 06/04/22 19:34> Course Course Course Narrative: 18:05pm - 61-year-old female c PMHx of DM Type II, HTN, diastolic heart failure, CKD stage 3 not on HD, JULIUS, lymphedema, edema, anemia, anxiety, restless leg syndrome, GERD, spinal stenosis and obesity who is currently at a short-term rehab presenting to the ED via EMS after she had a abdominal x-ray by the short- term rehab which revealed per patient ?bowel obstruction?. Patient had a large soft stool on Wednesday although has not had a bowel movement since then. She rep orts fullness of her abdomen and nausea. She also reports dry cough with wheezing and shortness of breath. Plan: Will obtain labs, chest x-ray, CT scan abdomen pelvis without IV contrast due to patient's CKD, UA. Provider breathing treatment, 125 mg of Solu-Medrol and 2 g of magnesium re-evaluate. <MAKENNA Mason - Last Filed: 06/04/22 19:34> Reevaluation(s) Reevaluation #1: - labs reviewed patient with an elevated white blood cell count 35445. Mild anemia which is improved when compared to prior. Carbon dioxide 21. BUN/creatinine 55/2.6 a which is baseline for patient. Random glucose 124. BNP 121. Otherwise all other labs are within normal limits. Patient negative for COVID. - CT scan of chest within normal limits no acute processes noted - awaiting CT scan abdomen pelvis without IV contrast. Sign out to PETERSON Valerio <MAKENNA Maosn - Last Filed: 06/04/22 19:34> Time: 19:05 <MAKENNA Mason - Last Filed: 06/04/22 19:34> Reevaluation #2: CT of the abdomen and pelvis with no evidence of obstruction. Increased soft tissue at the ileocecal valve, recommend colonoscopy to exclude mass. Mild diverticulosis however no acute diverticulitis. Nonobstructing right renal stones. At this time patient will be discharged home, has not been able to give us a urine sample however no urinary symptoms. Advised to return with new or worsening symptoms, follow-up with PCP and follow-up with GI. At time of discharge pain free and tollerating PO. <MAKENNA Damon - Last Filed: 06/05/22 00:37> Time: 00:29 <MAKENNA Damon - Last Filed: 06/05/22 00:37> MDM - Abdominal Pain Medical Records Attestation: I reviewed the patient's medical records. <MAKENNA Mason - Last Filed: 06/04/22 19:34> Lab Data Attestation: I reviewed the patient's lab results. <MAKENNA Mason - Last Filed: 06/04/22 19:34> Result diagrams: : 06/04/22 18:26 06/04/22 18:26 <MAKENNA Mason Last Filed: 06/04/22 19:34> Labs: Lab Results 06/04/22 06/04/22 06/04/22 Range/Units 18:26 18:26 18:26 WBC 14.1 H (4.8-10.8) X10*3/uL RBC 4.01 L D (4.20-5.50) X10*6/uL Hgb 11.4 L D (12.0-16.0) g/dl Hct 35.8 L D (37.0-47.0) % MCV 89.3 (80.0-98.0) fL MCH 28.4 (27.0-33.0) pg MCHC 31.8 (31.0-35.0) g/dl RDW 13.7 (11.0-16.0) % Plt Count 270 (160-400) X10*3/uL MPV 9.3 L (9.4-12.3) fL Immature Gran % (Auto) 0.6 H (0.0-0.4) % Neut % (Auto) 72.7 (45-73) % Lymph % (Auto) 11.6 L (20-40) % [place] % (Auto) 7.4 (2-11) % Eos % (Auto) 7.2 H (0-4) % Baso % (Auto) 0.5 (0-2) % Lymph # (Auto) 1.6 (1.2-4.9) X10*3/uL [place] # (Auto) 1.0 (0.1-1.2) X10*3/uL Eos # (Auto) 1.0 H (0.0-0.4) X10*3/uL Baso # (Auto) 0.1 (0.0-0.2) X10*3/uL Abs Immat Gran (auto) 0.08 H (0.00-0.03) X10*3/uL Absolute Neuts (auto) 10.3 H (2.0-8.3) x10*3/uL Absolute Nucleated RBC 0.000 (0.0-0.012) X10*3/uL Nucleated RBC % (auto) 0.0 (0.0-0.2) /100WBC PT 10.7 (10.0-13.1) SEC INR 0.9 (0.9-1.1) Sodium 139 (135-145) mmol/L Potassium 4.7 (3.3-5.1) mmol/L Chloride 107 (96-108) mmol/L Carbon Dioxide 21 L (22-29) mmol/L Anion Gap 16 (12-20) BUN 55 H (9-16) mg/dL Creatinine 2.68 H (0.5-1.4) mg/dL Estim Creat Clear Calc 35.9 Estimated GFR 18 Random Glucose 124 H (60-115) mg/dL Calcium 8.7 (8.4-10.2) mg/dL Magnesium 2.0 (1.6-2.6) mg/dL Total Bilirubin 0.3 (0.0-1.0) mg/dL AST 15 D (5-31) U/L ALT 7 (0-31) U/L Alkaline Phosphatase 114 (39-117) U/L B-Natriuretic Peptide (<100) pg/mL Total Protein 6.9 (6.5-8.0) g/dL Albumin 3.4 L (3.5-5.0) g/dL Lipase 27 (8-78) U/L COVID-19 ([facility]) (Negative) COVID-19 Clin Com 06/04/22 06/04/22 Range/Units 18:26 18:26 WBC (4.8-10.8) X10*3/uL RBC (4.20-5.50) X10*6/uL Hgb (12.0-16.0) g/dl Hct (37.0-47.0) % MCV (80.0-98.0) fL MCH (27.0-33.0) pg MCHC (31.0-35.0) g/dl RDW (11.0-16.0) % Plt Count (160-400) X10*3/uL MPV (9.4-12.3) fL Immature Gran % (Auto) (0.0-0.4) % Neut % (Auto) (45-73) % Lymph % (Auto) (20-40) % [place] % (Auto) (2-11) % Eos % (Auto) (0-4) % Baso % (Auto) (0-2) % Lymph # (Auto) (1.2-4.9) X10*3/uL [place] # (Auto) (0.1-1.2) X10*3/uL Eos # (Auto) (0.0-0.4) X10*3/uL Baso # (Auto) (0.0-0.2) X10*3/uL Abs Immat Gran (auto) (0.00-0.03) X10*3/uL Absolute Neuts (auto) (2.0-8.3) x10*3/uL Absolute Nucleated RBC (0.0-0.012) X10*3/uL Nucleated RBC % (auto) (0.0-0.2) /100WBC PT (10.0-13.1) SEC INR (0.9-1.1) Sodium (135-145) mmol/L Potassium (3.3-5.1) mmol/L Chloride (96-108) mmol/L Carbon Dioxide (22-29) mmol/L Anion Gap (12-20) BUN (9-16) mg/dL Creatinine (0.5-1.4) mg/dL Estim Creat Clear Calc Estimated GFR Random Glucose (60-115) mg/dL Calcium (8.4-10.2) mg/dL Magnesium (1.6-2.6) mg/dL Total Bilirubin (0.0-1.0) mg/dL AST (5-31) U/L ALT (0-31) U/L Alkaline Phosphatase (39-117) U/L B-Natriuretic Peptide 121 H (<100) pg/mL Total Protein (6.5-8.0) g/dL Albumin (3.5-5.0) g/dL Lipase (8-78) U/L COVID-19 ([facility]) Negative (Negative) COVID-19 Clin Com See Note <MAKENNA Mason - Last Filed: 06/04/22 19:34> Lab Results 06/04/22 06/04/22 06/04/22 Range/Units 18:26 18:26 18:26 WBC 14.1 H (4.8-10.8) X10*3/uL RBC 4.01 L D (4.20-5.50) X10*6/uL Hgb 11.4 L D (12.0-16.0) g/dl Hct 35.8 L D (37.0-47.0) % MCV 89.3 (80.0-98.0) fL MCH 28.4 (27.0-33.0) pg MCHC 31.8 (31.0-35.0) g/dl RDW 13.7 (11.0-16.0) % Plt Count 270 (160-400) X10*3/uL MPV 9.3 L (9.4-12.3) fL Immature Gran % (Auto) 0.6 H (0.0-0.4) % Neut % (Auto) 72.7 (45-73) % Lymph % (Auto) 11.6 L (20-40) % [place] % (Auto) 7.4 (2-11) % Eos % (Auto) 7.2 H (0-4) % Baso % (Auto) 0.5 (0-2) % Lymph # (Auto) 1.6 (1.2-4.9) X10*3/uL [place] # (Auto) 1.0 (0.1-1.2) X10*3/uL Eos # (Auto) 1.0 H (0.0-0.4) X10*3/uL Baso # (Auto) 0.1 (0.0-0.2) X10*3/uL Abs Immat Gran (auto) 0.08 H (0.00-0.03) X10*3/uL Absolute Neuts (auto) 10.3 H (2.0-8.3) x10*3/uL Absolute Nucleated RBC 0.000 (0.0-0.012) X10*3/uL Nucleated RBC % (auto) 0.0 (0.0-0.2) /100WBC PT 10.7 (10.0-13.1) SEC INR 0.9 (0.9-1.1) Sodium 139 (135-145) mmol/L Potassium 4.7 (3.3-5.1) mmol/L Chloride 107 (96-108) mmol/L Carbon Dioxide 21 L (22-29) mmol/L Anion Gap 16 (12-20) BUN 55 H (9-16) mg/dL Creatinine 2.68 H (0.5-1.4) mg/dL Estim Creat Clear Calc 35.9 Estimated GFR 18 Random Glucose 124 H (60-115) mg/dL Calcium 8.7 (8.4-10.2) mg/dL Magnesium 2.0 (1.6-2.6) mg/dL Total Bilirubin 0.3 (0.0-1.0) mg/dL AST 15 D (5-31) U/L ALT 7 (0-31) U/L Alkaline Phosphatase 114 (39-117) U/L B-Natriuretic Peptide (<100) pg/mL Total Protein 6.9 (6.5-8.0) g/dL Albumin 3.4 L (3.5-5.0) g/dL Lipase 27 (8-78) U/L COVID-19 ([facility]) (Negative) COVID-19 Clin Com 06/04/22 06/04/22 Range/Units 18:26 18:26 WBC (4.8-10.8) X10*3/uL RBC (4.20-5.50) X10*6/uL Hgb (12.0-16.0) g/dl Hct (37.0-47.0) % MCV (80.0-98.0) fL MCH (27.0-33.0) pg MCHC (31.0-35.0) g/dl RDW (11.0-16.0) % Plt Count (160-400) X10*3/uL MPV (9.4-12.3) fL Immature Gran % (Auto) (0.0-0.4) % Neut % (Auto) (45-73) % Lymph % (Auto) (20-40) % [place] % (Auto) (2-11) % Eos % (Auto) (0-4) % Baso % (Auto) (0-2) % Lymph # (Auto) (1.2-4.9) X10*3/uL [place] # (Auto) (0.1-1.2) X10*3/uL Eos # (Auto) (0.0-0.4) X10*3/uL Baso # (Auto) (0.0-0.2) X10*3/uL Abs Immat Gran (auto) (0.00-0.03) X10*3/uL Absolute Neuts (auto) (2.0-8.3) x10*3/uL Absolute Nucleated RBC (0.0-0.012) X10*3/uL Nucleated RBC % (auto) (0.0-0.2) /100WBC PT (10.0-13.1) SEC INR (0.9-1.1) Sodium (135-145) mmol/L Potassium (3.3-5.1) mmol/L Chloride (96-108) mmol/L Carbon Dioxide (22-29) mmol/L Anion Gap (12-20) BUN (9-16) mg/dL Creatinine (0.5-1.4) mg/dL Estim Creat Clear Calc Estimated GFR Random Glucose (60-115) mg/dL Calcium (8.4-10.2) mg/dL Magnesium (1.6-2.6) mg/dL Total Bilirubin (0.0-1.0) mg/dL AST (5-31) U/L ALT (0-31) U/L Alkaline Phosphatase (39-117) U/L B-Natriuretic Peptide 121 H (<100) pg/mL Total Protein (6.5-8.0) g/dL Albumin (3.5-5.0) g/dL Lipase (8-78) U/L COVID-19 ([facility]) Negative (Negative) COVID-19 Clin Com See Note <MAKENNA Damon - Last Filed: 06/05/22 00:37> Imaging Data Chest x-ray: Attestation: I personally reviewed and interpreted this imaging study as follows: <MAKENNA Mason Last Filed: 06/04/22 19:34> Radiologist's impression: FINDINGS: No significant abnormality is noted involving the heart, lungs, mediastinum, bony thorax or soft tissues. XR/XR chest 2V IMPRESSION: Unremarkable examination. <MAKENNA Mason Last Filed: 06/04/22 19:34> Critical Care Time Critical Care Time Critical Care Time: No <MAKENNA Damon Last Filed: 06/05/22 00:37> Discharge Plan Discharge Clinical Impression: Abdominal pain, Asthma exacerbation, Acute bronchospasm <MAKENNA Mason Last Filed: 06/04/22 19:34> Patient Disposition: Home, Self-Care <MAKENNA Mason Last Filed: 06/04/22 19:34> Instructions: Asthma (ED), Abdominal Pain (ED), Bronchospasm (ED), Wheezing (ED) <MAKENNA Mason Last Filed: 06/04/22 19:34> Additional Instructions: Take your medications as prescribed. If you were prescribed antibiotics today, it is important that you take your medication to their entirety, do not skip any doses, do not finish them early. Follow-up with your primary care provider this week. Return to the emergency department with new or worsening symptoms. Such as fevers, chills, chest pain, shortness of breath, nausea, vomiting, dizziness, headache, vision changes, lethargy In case of emergency call 911 CT/CT abdomen pelvis wo IV con IMPRESSION: No evidence of obstruction. Increased soft tissue at the ileocecal valve. Correlation with colonoscopy to exclude mass recommended. Mild diverticulosis. No evidence of diverticulitis. Nonobstructing small right renal stones. <MAKENNA Mason - Last Filed: 06/04/22 19:34> Prescriptions: No Action albuterol sulfate 90 mcg/actuation HFA aerosol inhaler 2 puff inhalation Q4H PRN (Reason: bronchospasm) 30 Days Qty: 8.5 5RF (DME) insulin syringe-needle U-100 [BD Insulin Syringe Ultra-Fine] 1 mL 30 gauge x 1/2 syringe See Rx Instructions .ROUTE .MEDSUPPLY Qty: 100 3RF Rx Instructions: TID (DME) Accu-Chek Berna Plus test strp Strip See Rx Instructions .Route Qty: 300 8RF Rx Instructions: to check blood sugars five times a day (DME) blood sugar diagnostic Strip See Rx Instructions .ROUTE .MEDSUPPLY Qty: 200 8RF Rx Instructions: FREESTYLE TEST STRIPS (DME) pen needle, diabetic 32 gauge x 5/32 needle See Rx Instructions .Route Qty: 100 0RF Rx Instructions: As directed sulfamethoxazole-trimethoprim [Bactrim DS] 800-160 mg tablet 1 tab PO BID 5 Days Qty: 10 0RF torsemide 20 mg tablet 40 mg PO DAILY Qty: 90 0RF Protocol: Hold for SBP< HOLD for SBP < : 90 Rx Instructions: Takes 2 tab in the morning and 1 tab at nights ondansetron 4 mg tablet,disintegrating 4 mg translingual TIDAC PRN (Reason: nausea) Qty: 12 0RF gabapentin 100 mg capsule 100 mg PO BID Qty: 60 7RF oxybutynin chloride 5 mg tablet extended release 24 hr 5 mg PO DAILY Qty: 30 0RF omeprazole 40 mg capsule,delayed release(DR/EC) 40 mg PO DAILY Qty: 30 7RF hydralazine 25 mg Tablet 25 mg PO TID Qty: 90 0RF Protocol: Hold for SBP< HOLD for SBP < : 90 docusate sodium 100 mg Capsule 200 mg PO BEDTIME Qty: 60 0RF torsemide 20 mg tablet 1 tab PO BEDTIME ropinirole 0.25 mg tablet 0.25 mg PO BEDTIME spironolactone 50 mg tablet 50 mg PO DAILY [employer] U-300 Insulin 300 unit/mL (1.5 mL) insulin pen 120 unit subcut DAILY insulin lispro [Humalog U-100 Insulin] 100 unit/mL solution 14 unit subcut TID Rx Instructions: Patient uses a sliding scale nystatin 100,000 unit/gram powder 100,000 unit topical BID alcohol swabs [Alcohol Prep Pads] Pads, Medicated topical amlodipine 10 mg tablet 10 mg PO DAILY Ozempic 0.25 mg or 0.5 mg(2 mg/1.5 mL) pen injector 0.5 mg subcut QWEEK Qty: 1.5 11RF Rx Instructions: 0.25 mg once a week x 4 weeks, then increase to 0.5 mg once a week thereafter. nitrofurantoin monohyd/m-cryst 100 mg capsule 1 cap PO BID ropinirole 0.5 mg tablet 0.5 mg PO BEDTIME esomeprazole magnesium 40 mg capsule,delayed release(DR/EC) 40 mg PO DAILY oxybutynin chloride 15 mg tablet extended release 24hr 15 mg PO DAILY ciprofloxacin HCl 250 mg tablet 250 mg PO BID <MAKENNA Mason - Last Filed: 06/04/22 19:34> Referrals: [facility] [Provider Group] - 1 week Terry Ochoa MD [Primary Care Provider] - 2 days <MAKENNA Mason - Last Filed: 06/04/22 19:34>
[2022-06-04 18:40] VITALS: PULSE 99; RESP 16; O2SAT 100
[2022-06-04 18:41] LABS: INTERNATIONAL NORM RATIO 0.9 (0.9-1.1); Prothrombin Time 10.7 SEC (10.0-13.1)
[2022-06-04] MEDS: Magnesium Sulfate/H2O 2 GM/50 ML PIGGYBACK IV (18:41)
[2022-06-04] MEDS: methylPREDNISolone Sod Succ 125 MG/2 ML VIAL IVPUSH (18:41)
[2022-06-04 18:51] LABS: B Type Natriuretic Peptide 121 pg/mL (<100)
[2022-06-04 18:53] LABS: Alanine Aminotransferase 7 U/L (0-31); Albumin Level 3.4 g/dL (3.5-5.0); Alkaline Phosphatase 114 U/L (39-117); Anion Gap 16 (12-20); Aspartate Amino Transferase 15 U/L (5-31); Bilirubin Total 0.3 mg/dL (0.0-1.0); Blood Urea Nitrogen 55 mg/dL (9-16); COVID-19 Test Negative (Negative); Calcium 8.7 mg/dL (8.4-10.2); Carbon Dioxide 21 mmol/L (22-29); Chloride 107 mmol/L (96-108); Creatinine Clr Calc Pharmacy 35.9; Estimated Glomerular Filt Rate 18; Glucose Random 124 mg/dL (60-115); IDNOW Serial# 55D5AD1C; Potassium 4.7 mmol/L (3.3-5.1); Sodium 139 mmol/L (135-145); Total Protein 6.9 g/dL (6.5-8.0)
[2022-06-04 20:36] LABS: Lipase 27 U/L (8-78)
[2022-06-04 21:11] VITALS: BP 149/67; PULSE 99; O2SAT 97
--- NOTE | 2022-06-05 00:54 | PC.NURSE ---
Call out to [facility] spoke to Lay to book transport. [facility] is unable to transport patient tonight due to no BLS trucks. ETA of 0800 was given.
[2022-06-05 08:09] LABS: Glucose, Whole Blood 336 mg/dL (60-115)
== END 2022-06-05 08:50 | disposition home or self-care (01) ==
PROVIDERS: Physician Assistant; Physician Assistant Medical; Emergency Provider Emergency Medicine Emergency Medical Services; PCP Internal Medicine
DX: R10.9 Unspecified abdominal pain (principal); J45.901 Unspecified asthma with (acute) exacerbation; R06.02 Shortness of breath; E11.22 Type 2 diabetes mellitus with diabetic chronic kidney disease; I13.0 Hypertensive heart and chronic kidney disease with heart failure and stage 1 through stage 4 chronic kidney disease, or unspecified chronic kidney disease; N18.30 Chronic kidney disease, stage 3 unspecified; I50.33 Acute on chronic diastolic (congestive) heart failure; E66.9 Obesity, unspecified; Z68.44 Body mass index [BMI] 60.0-69.9, adult; Z79.4 Long term (current) use of insulin; Z79.899 Other long term (current) drug therapy; Z20.822 Contact with and (suspected) exposure to COVID-19
CPT/HCPCS: 36415; 71046; 74176; 80053; 82947; 83690; 83735; 83880; 85025; 85610; 87635; 94640; 96365; 96374; 96375; 99284; J2930; J3475

== ENCOUNTER → 2022-06-24 10:38 | Outpatient (BNVA) | payer MEDICARE, MEDICAID, SELFPAY | PROVIDERS: PCP Internal Medicine; Visit Provider Dietitian, Registered | DX: E11.22 Type 2 diabetes mellitus with diabetic chronic kidney disease (principal); N18.4 Chronic kidney disease, stage 4 (severe); Z71.3 Dietary counseling and surveillance | CPT/HCPCS: 97802 ==

== ENCOUNTER 2022-07-10 21:02 | Emergency (ER) | payer MEDICARE, MEDICAID, SELFPAY ==
[2022-07-10 21:19] VITALS: BP 148/70; PULSE 75; O2SAT 96
[2022-07-10 21:21] VITALS: BP 139/64; PULSE 74; RESP 13; TEMP 36.8; O2SAT 100; BMI 57.9
[2022-07-10 21:29] VITALS: BP 139/64; PULSE 74; RESP 13; TEMP 36.8; O2SAT 100
--- NOTE | 2022-07-10 21:42 | ED_ITS ---
HPI - General Adult General Chief complaint: General Medical Stated complaint: Hyperglycemia Time Seen by Provider: 07/10/22 21:17 Source: patient and EMS Mode of arrival: EMS Limitations: no limitations History of Present Illness HPI narrative: Patient comes to the emergency room complaining of hyperglycemia, nausea, vomiting, and complaining that her visiting nurses have not gone to check on her. Patient states that she was discharged from rehab approximately 30 days ago, patient has visiting nurses that are supposed to go see her. Patient states that she has Procrit at home but she does not know if she is supposed to take it or not because they did blood work and they never gave her the results, they checked the urine she never got the results either. Patient this by herself but she has visiting nurses on a daily basis, patient cannot take care of herself, patient is morbidly obese. Also, patient states that her primary care physician sent a prescription for refills of her medications to [facility] in [facility], but the pharmacy told the patient that did not have her medications available. Also, patient states that she has a [employer] who is her nephew, states that some documents have not been submitted, he is not getting paid, starting today he will be able to take care of her. Related Data Home Medications Medication Instructions Recorded Confirmed ropinirole 0.25 mg tablet 0.25 mg PO BEDTIME 12/01/21 07/01/22 spironolactone 50 mg tablet 50 mg PO DAILY 12/01/21 07/01/22 nystatin 100,000 unit/gram topical 100,000 unit topical BID 01/05/22 07/01/22 powder torsemide 20 mg tablet 1 tab PO BEDTIME 01/10/22 07/01/22 alcohol swabs (Alcohol Prep Pads) pad topical 02/03/22 04/15/22 amlodipine 10 mg tablet 10 mg PO DAILY 02/03/22 07/01/22 ciprofloxacin HCl 250 mg tablet 250 mg PO BID 03/06/22 07/01/22 esomeprazole magnesium 40 mg 40 mg PO DAILY 03/06/22 07/01/22 capsule,delayed release nitrofurantoin 1 cap PO BID 03/06/22 07/01/22 monohydrate/macrocrystals 100 mg capsule oxybutynin chloride 15 mg 15 mg PO DAILY 03/06/22 04/15/22 tablet,extended release 24 hr ropinirole 0.5 mg tablet 0.5 mg PO BEDTIME 03/06/22 07/01/22 Previous Rx's Medication Instructions Recorded albuterol sulfate 90 mcg/actuation 2 puff inhalation Q4H PRN 03/24/21 aerosol inhaler bronchospasm 30 days #8.5 grams docusate sodium 100 mg capsule 200 mg PO BEDTIME #60 caps 06/13/21 hydralazine 25 mg tablet 25 mg PO TID #90 tabs 06/13/21 blood sugar diagnostic #200 ea 12/05/21 blood sugar diagnostic (Accu-Chek #300 ea 12/05/21 Berna Plus test strips) torsemide 20 mg tablet 40 mg PO DAILY #90 tabs 02/02/22 omeprazole 40 mg capsule,delayed 40 mg PO DAILY #30 caps 03/03/22 release oxybutynin chloride 5 mg 5 mg PO DAILY #30 tabs 03/03/22 tablet,extended release 24 hr gabapentin 100 mg capsule 100 mg PO BID #60 caps 06/22/22 hospital bed #1 ea 07/06/22 miscellaneous medical supply 1 ea miscellaneous BEDTIME #1 ea 07/06/22 ondansetron 4 mg disintegrating 4 mg translingual TIDAC PRN nausea 07/06/22 tablet #12 tabs insulin glargine U-300 conc 300 120 unit (0.4 mL) subcut DAILY 07/07/22 unit/mL (1.5 mL) subcutaneous pen #4.5 mL (Toujeo SoloStar U-300 Insulin) insulin lispro 100 unit/mL 14 unit (0.14 mL) subcut TID #10 mL 07/07/22 subcutaneous solution (Humalog U-100 Insulin) pen needle, diabetic 32 gauge x #100 ea 07/07/2232 semaglutide 0.25 mg or 0.5 mg (2 0.5 mg (0.4 mL) subcut QWEEK 4 07/07/22 mg/1.5 mL) subcutaneous pen doses #1.5 mL injector (Ozempic) insulin syringe-needle U-100 1 mL #100 ea 07/08/22 30 gauge x 1/2 (BD Insulin Syringe Ultra-Fine) Allergies Allergy/AdvReac Type Severity Reaction Status Date / Time metformin [METFORMIN] Allergy Severe HIVES Verified 07/01/22 13:57 canagliflozin [From Invokana] Allergy Hives Verified 07/01/22 13:57 Review of Systems Review of Systems: Constitutional : No Weight loss, No Fever, No Chills, No Night Sweats, No Fatigue, No Malaise ENT/Mouth : No Hearing loss, No Ear Pain, No Nasal Congestion, No Sinus Pain, No Hoarseness, No sore throat, No Rhinorrhea, No Swallowing Difficulty Eyes: No Eye Pain, No Swelling, No Redness, No Foreign Body, No Discharge, No Vision Changes Cardiovascular : No Chest Pain, No SOB, No Dyspnea on Exertion, No Orthopnea, No Edema, No Palpitations Respiratory : No Cough, No Sputum, No Wheezing, No Smoke Exposure, No Dyspnea Gastrointestinal : Complaining of nausea and vomiting, No Diarrhea, No Constipation, No abdominal Pain, No Hematochezia, No Melena Genitourinary : no irregular bleeding, No Dysuria, No Urinary Frequency, No Hematuria, No Urinary Incontinence, No Urgency, No Flank Pain, No Urinary Flow Changes, No Hesitancy Musculoskeletal : No joint pain, No Myalgias, No Joint Swelling Skin : No Skin Lesions, No rash Neuro : No Weakness, No Numbness, No Paresthesias, No Loss of Consciousness, No Dizziness, No Headache Psych : No Anxiety/Panic, No Depression, No SI/HI/AH/VH, No Social Issues, Heme/Lymph: No Bruising, No Bleeding,No Lymphadenopathy Endocrine : No Polyuria, No Polydipsia, No Temperature Intolerance PMFSH Past Medical History Medical History Acute kidney injury superimposed on chronic kidney disease Acute on chronic diastolic (congestive) heart failure Alteration in skin integrity due to moisture Anemia Bladder outlet obstruction CKD (chronic kidney disease) stage 4, GFR 15-29 ml/min Clostridium difficile diarrhea Detrusor dysfunction Esophagitis Essential hypertension Frequent UTI Heart failure with preserved ejection fraction HLD (hyperlipidemia) HTN (hypertension) Hyperkalemia Hypothyroidism IBS (irritable bowel syndrome) Morbid obesity T2DM (type 2 diabetes mellitus) Type 2 diabetes mellitus with obesity UTI (urinary tract infection) Surgical History History of tubal ligation Family History Family History Father Diabetes Mother Diabetes Hypertension Breast cancer Family/Other Breast cancer Uterine cancer Social History Social History Household Members: None Housing: Apartment Do you presently have visiting nurse or other home services: Yes Alcohol intake: never Patient Tobacco Use Status: Former Tobacco user Quit Date: 08/30/2001 e-Cigarette/Vaping Use: Never Used Second Hand Smoke Exposure: No Advance Directives: Yes Advance Directives on File: Yes Advance Directives Date on File: 10/09/20 Patient : No service: No Current occupational status: disabled Cognitive needs: No Hearing needs: No Vision needs: Yes Physical Exam ED Vital Signs: Vital Signs - 24 hr 07/10/22 21:21 07/10/22 21:29 07/10/22 22:00 Temperature 98.2 F 98.2 F 98.3 F Pulse Rate 74 74 90 Respiratory Rate 13 13 16 Blood Pressure 139/64 139/64 205/64 H Pulse Oximetry 100 100 98 Oxygen Delivery Method Room Air Room Air Room Air 07/10/22 22:50 07/11/22 00:42 Temperature 97.8 F Pulse Rate 76 Respiratory Rate 17 Blood Pressure 166/58 H 123/56 L Pulse Oximetry 100 Oxygen Delivery Method Room Air BMI result Body Mass Index 57.9 Const Other: Appearance: Alert. Oriented X3. No acute distress. Morbidly obese Eyes: Pupils equal, round and reactive to light. ENT: Pharynx normal. Neck: Normal inspection. Neck supple. No lymph nodes noted. No crepitus CVS: Normal heart rate and rhythm. Pulses normal. Normal S1 and S2 Respiratory: No respiratory distress. Breath sounds normal. No Wheezing. No rales Abdomen: Soft and nontender. No rigidity. No distention. Skin: Skin warm and dry. Normal skin color. Normal skin turgor. Extremities: No lower extremity edema. No Lacerations. No Rash Neuro: Oriented X 3. No motor deficit. No sensory deficit. Moving all extremities. No slurred speech. CN 2 through 12 grossly intact Psych: calm, cooperative, normal affect Course Course Course Narrative: Will go ahead and check patient's labs, patient will likely have hyperglycemia, case Management has been consulted as well Patient's labs are mostly at baseline besides slight hyperkalemia at 5.2, no treatment necessary at this time, renal function at baseline, patient does have hyperglycemia, patient receiving 10 units of insulin. Patient has hypertension, blood pressure 205/64, patient receiving 1 dose of p.o. labetalol 100 mg. Case management and physical therapy have been consulted. Patient will be staying overnight in the emergency room. Patient will likely need placement. Patient cannot take care of herself, [employer] currently on vacation 00:34, patient's blood pressure 140/64 after the lab vital, patient feeling nauseous, patient getting IV fluids, Zofran, blood glucose 340, patient getting him more units of insulin. 01:50 patient no longer nauseous or vomiting, patient blood glucose 268 Blood pressure 133/56 Physical therapy and Case Management consult pending. Physician observation started 01:50 Medications Administered Discontinued Medications Generic Name Dose Route Start Last Admin Trade Name Freq PRN Reason Stop Dose Admin Sodium Chloride 1,000 mls @ 999 mls/hr 07/11/22 00:32 07/11/22 00:46 Ns IVCONT 07/11/22 01:32 999 mls/hr .Q1H1M ONE Administration Insulin Human Regular 10 unit 07/10/22 22:38 07/10/22 23:07 Insulin Regular, Human 100 Unit/Ml 3 Ml Vial IVPUSH 07/10/22 22:39 10 unit ONCE ONE Administration Insulin Human Regular 10 unit 07/11/22 00:32 07/11/22 00:46 Insulin Regular, Human 100 Unit/Ml 3 Ml Vial IVPUSH 07/11/22 00:33 10 unit ONCE ONE Administration Labetalol HCl 100 mg 07/10/22 22:38 07/10/22 23:06 Labetalol Hcl 100 Mg Tablet PO 07/10/22 22:39 100 mg ONCE ONE Administration Protocol Ondansetron HCl 4 mg 07/11/22 00:32 07/11/22 00:44 Ondansetron Hcl 4 Mg/2 Ml Vial IVPUSH 07/11/22 00:33 4 mg ONCE ONE Administration Medical Decision Making Lab Data Result diagrams: 07/10/22 21:50 07/10/22 21:50 Labs: Lab Results 07/10/22 07/10/22 07/10/22 Range/Units 21:50 21:50 21:50 WBC 13.5 H (4.8-10.8) X10*3/uL RBC 3.88 L (4.20-5.50) X10*6/uL Hgb 11.0 L (12.0-16.0) g/dl Hct 33.1 L (37.0-47.0) % MCV 85.3 (80.0-98.0) fL MCH 28.4 (27.0-33.0) pg MCHC 33.2 (31.0-35.0) g/dl RDW 14.0 (11.0-16.0) % Plt Count 272 (160-400) X10*3/uL MPV 10.4 (9.4-12.3) fL Immature Gran % (Auto) 0.6 H (0.0-0.4) % Neut % (Auto) 74.1 H (45-73) % Lymph % (Auto) 14.8 L (20-40) % [place] % (Auto) 7.3 (2-11) % Eos % (Auto) 2.7 (0-4) % Baso % (Auto) 0.5 (0-2) % Lymph # (Auto) 2.0 (1.2-4.9) X10*3/uL [place] # (Auto) 1.0 (0.1-1.2) X10*3/uL Eos # (Auto) 0.4 (0.0-0.4) X10*3/uL Baso # (Auto) 0.1 (0.0-0.2) X10*3/uL Abs Immat Gran (auto) 0.08 H (0.00-0.03) X10*3/uL Absolute Neuts (auto) 10.0 H (2.0-8.3) x10*3/uL Absolute Nucleated RBC 0.000 (0.0-0.012) X10*3/uL Nucleated RBC % (auto) 0.0 (0.0-0.2) /100WBC Sodium 132 L (135-145) mmol/L Potassium 5.2 H (3.3-5.1) mmol/L Chloride 100 (96-108) mmol/L Carbon Dioxide 17 L (22-29) mmol/L Anion Gap 20 (12-20) BUN 57 H (9-16) mg/dL Creatinine 2.58 H (0.5-1.4) mg/dL Estim Creat Clear Calc 35.0 Estimated GFR 19 POC Glucose (60-115) mg/dL Random Glucose 486 H* D (60-115) mg/dL Calcium 8.8 (8.4-10.2) mg/dL Total Bilirubin 0.4 (0.0-1.0) mg/dL Direct Bilirubin < 0.2 (0.0-0.5) mg/dL AST 16 (5-31) U/L ALT 11 (0-31) U/L Alkaline Phosphatase 106 (39-117) U/L Total Protein 6.9 (6.5-8.0) g/dL Albumin 3.4 L (3.5-5.0) g/dL Lipase 35 (8-78) U/L Urine Color Urine Appearance Urine pH (5.0-9.0) Ur Specific [place] (1.005-1.025) Urine Protein (Neg-Trace) mg/dL Urine Glucose (UA) (Negative) mg/dL Urine Ketones (Negative) mg/dL Urine Blood (Negative) Urine Nitrite (Negative) Ur Leukocyte Esterase (Negative) Urine RBC (0-2) /HPF Urine WBC (0-5) /HPF Ur Squamous Epith Cells (0-2) /HPF Urine Bacteria (None Seen) Hyaline Casts (0-2) /LPF Urine Yeast COVID-19 (SERA) Negative (Negative) COVID-19 Clin Com See Note 07/10/22 07/10/22 07/11/22 Range/Units 21:55 23:45 00:39 WBC (4.8-10.8) X10*3/uL RBC (4.20-5.50) X10*6/uL Hgb (12.0-16.0) g/dl Hct (37.0-47.0) % MCV (80.0-98.0) fL MCH (27.0-33.0) pg MCHC (31.0-35.0) g/dl RDW (11.0-16.0) % Plt Count (160-400) X10*3/uL MPV (9.4-12.3) fL Immature Gran % (Auto) (0.0-0.4) % Neut % (Auto) (45-73) % Lymph % (Auto) (20-40) % [place] % (Auto) (2-11) % Eos % (Auto) (0-4) % Baso % (Auto) (0-2) % Lymph # (Auto) (1.2-4.9) X10*3/uL [place] # (Auto) (0.1-1.2) X10*3/uL Eos # (Auto) (0.0-0.4) X10*3/uL Baso # (Auto) (0.0-0.2) X10*3/uL Abs Immat Gran (auto) (0.00-0.03) X10*3/uL Absolute Neuts (auto) (2.0-8.3) x10*3/uL Absolute Nucleated RBC (0.0-0.012) X10*3/uL Nucleated RBC % (auto) (0.0-0.2) /100WBC Sodium (135-145) mmol/L Potassium (3.3-5.1) mmol/L Chloride (96-108) mmol/L Carbon Dioxide (22-29) mmol/L Anion Gap (12-20) BUN (9-16) mg/dL Creatinine (0.5-1.4) mg/dL Estim Creat Clear Calc Estimated GFR POC Glucose 368 H* 363 H* (60-115) mg/dL Random Glucose (60-115) mg/dL Calcium (8.4-10.2) mg/dL Total Bilirubin (0.0-1.0) mg/dL Direct Bilirubin (0.0-0.5) mg/dL AST (5-31) U/L ALT (0-31) U/L Alkaline Phosphatase (39-117) U/L Total Protein (6.5-8.0) g/dL Albumin (3.5-5.0) g/dL Lipase (8-78) U/L Urine Color Yellow Urine Appearance Clear Urine pH 6.5 (5.0-9.0) Ur Specific [place] 1.015 (1.005-1.025) Urine Protein 300 (3+) H (Neg-Trace) mg/dL Urine Glucose (UA) >=1000 H (Negative) mg/dL Urine Ketones Negative (Negative) mg/dL Urine Blood Small (1+) H (Negative) Urine Nitrite Negative (Negative) Ur Leukocyte Esterase Small (1+) H (Negative) Urine RBC 0-2 (0-2) /HPF Urine WBC 21-50 H (0-5) /HPF Ur Squamous Epith Cells 3-5 (0-2) /HPF Urine Bacteria Trace (None Seen) Hyaline Casts 0-2 (0-2) /LPF Urine Yeast Present COVID-19 (SERA) (Negative) COVID-19 Clin Com 07/11/22 Range/Units 01:36 WBC (4.8-10.8) X10*3/uL RBC (4.20-5.50) X10*6/uL Hgb (12.0-16.0) g/dl Hct (37.0-47.0) % MCV (80.0-98.0) fL MCH (27.0-33.0) pg MCHC (31.0-35.0) g/dl RDW (11.0-16.0) % Plt Count (160-400) X10*3/uL MPV (9.4-12.3) fL Immature Gran % (Auto) (0.0-0.4) % Neut % (Auto) (45-73) % Lymph % (Auto) (20-40) % [place] % (Auto) (2-11) % Eos % (Auto) (0-4) % Baso % (Auto) (0-2) % Lymph # (Auto) (1.2-4.9) X10*3/uL [place] # (Auto) (0.1-1.2) X10*3/uL Eos # (Auto) (0.0-0.4) X10*3/uL Baso # (Auto) (0.0-0.2) X10*3/uL Abs Immat Gran (auto) (0.00-0.03) X10*3/uL Absolute Neuts (auto) (2.0-8.3) x10*3/uL Absolute Nucleated RBC (0.0-0.012) X10*3/uL Nucleated RBC % (auto) (0.0-0.2) /100WBC Sodium (135-145) mmol/L Potassium (3.3-5.1) mmol/L Chloride (96-108) mmol/L Carbon Dioxide (22-29) mmol/L Anion Gap (12-20) BUN (9-16) mg/dL Creatinine (0.5-1.4) mg/dL Estim Creat Clear Calc Estimated GFR POC Glucose 278 H (60-115) mg/dL Random Glucose (60-115) mg/dL Calcium (8.4-10.2) mg/dL Total Bilirubin (0.0-1.0) mg/dL Direct Bilirubin (0.0-0.5) mg/dL AST (5-31) U/L ALT (0-31) U/L Alkaline Phosphatase (39-117) U/L Total Protein (6.5-8.0) g/dL Albumin (3.5-5.0) g/dL Lipase (8-78) U/L Urine Color Urine Appearance Urine pH (5.0-9.0) Ur Specific [place] (1.005-1.025) Urine Protein (Neg-Trace) mg/dL Urine Glucose (UA) (Negative) mg/dL Urine Ketones (Negative) mg/dL Urine Blood (Negative) Urine Nitrite (Negative) Ur Leukocyte Esterase (Negative) Urine RBC (0-2) /HPF Urine WBC (0-5) /HPF Ur Squamous Epith Cells (0-2) /HPF Urine Bacteria (None Seen) Hyaline Casts (0-2) /LPF Urine Yeast COVID-19 (SERA) (Negative) COVID-19 Clin Com Critical Care Time Critical Care Time Critical Care Time: Yes Total Critical Care Time: 30 Attestation: I have personally provided critical care time. Time includes review of lab data, radiology results, discussion with consultants, and monitoring for potential decompensation. Intervention performed as documented. Discharge Plan Discharge Clinical Impression: Acute hyperglycemia, Hypertension Patient Disposition: Still a Patient Prescriptions: No Action albuterol sulfate 90 mcg/actuation HFA aerosol inhaler 2 puff inhalation Q4H PRN (Reason: bronchospasm) 30 Days Qty: 8.5 5RF (DME) Accu-Chek Berna Plus test strp Strip See Rx Instructions .Route Qty: 300 8RF Rx Instructions: to check blood sugars five times a day (DME) blood sugar diagnostic Strip See Rx Instructions .ROUTE .MEDSUPPLY Qty: 200 8RF Rx Instructions: FREESTYLE TEST STRIPS torsemide 20 mg tablet 40 mg PO DAILY Qty: 90 0RF Protocol: Hold for SBP< HOLD for SBP < : 90 Rx Instructions: Takes 2 tab in the morning and 1 tab at nights oxybutynin chloride 5 mg tablet extended release 24 hr 5 mg PO DAILY Qty: 30 0RF omeprazole 40 mg capsule,delayed release(DR/EC) 40 mg PO DAILY Qty: 30 7RF gabapentin 100 mg capsule 100 mg PO BID Qty: 60 7RF ondansetron 4 mg tablet,disintegrating 4 mg translingual TIDAC PRN (Reason: nausea) Qty: 12 0RF miscellaneous medical supply Misc 1 ea miscellaneous BEDTIME Qty: 1 0RF Rx Instructions: Hospital bed (DME) hospital bed Kit See Rx Instructions .Route Qty: 1 0RF Rx Instructions: As directed Tacho VooStar U-300 Insulin 300 unit/mL (1.5 mL) insulin pen 120 unit subcut DAILY Qty: 4.5 0RF insulin lispro [Humalog U-100 Insulin] 100 unit/mL solution 14 unit subcut TID Qty: 10 0RF Rx Instructions: Patient uses a sliding scale Ozempic 0.25 mg or 0.5 mg(2 mg/1.5 mL) pen injector 0.5 mg subcut QWEEK Qty: 1.5 11RF Rx Instructions: 0.25 mg once a week x 4 weeks, then increase to 0.5 mg once a week thereafter. (DME) pen needle, diabetic 32 gauge x 5/32 needle See Rx Instructions .Route Qty: 100 0RF Rx Instructions: use TID (DME) insulin syringe-needle U-100 [BD Insulin Syringe Ultra-Fine] 1 mL 30 gauge x 1/2 syringe See Rx Instructions .ROUTE .MEDSUPPLY Qty: 100 3RF Rx Instructions: TID hydralazine 25 mg Tablet 25 mg PO TID Qty: 90 0RF Protocol: Hold for SBP< HOLD for SBP < : 90 docusate sodium 100 mg Capsule 200 mg PO BEDTIME Qty: 60 0RF torsemide 20 mg tablet 1 tab PO BEDTIME ropinirole 0.25 mg tablet 0.25 mg PO BEDTIME spironolactone 50 mg tablet 50 mg PO DAILY nystatin 100,000 unit/gram powder 100,000 unit topical BID alcohol swabs [Alcohol Prep Pads] Pads, Medicated topical amlodipine 10 mg tablet 10 mg PO DAILY nitrofurantoin monohyd/m-cryst 100 mg capsule 1 cap PO BID ropinirole 0.5 mg tablet 0.5 mg PO BEDTIME esomeprazole magnesium 40 mg capsule,delayed release(DR/EC) 40 mg PO DAILY oxybutynin chloride 15 mg tablet extended release 24hr 15 mg PO DAILY ciprofloxacin HCl 250 mg tablet 250 mg PO BID
[2022-07-10 21:54] LABS: MANUAL DIFF FLAG NO
[2022-07-10 21:57] LABS: Basophils Absolute Auto 0.1 X10*3/uL (0.0-0.2); Basophils Percent Auto 0.5 % (0-2); Eosinophils Absolute Auto 0.4 X10*3/uL (0.0-0.4); Eosinophils Percent Auto 2.7 % (0-4); Hematocrit 33.1 % (37.0-47.0); Imm Gran Abs Auto 0.08 X10*3/uL (0.00-0.03); Imm Gran Pct Auto 0.6 % (0.0-0.4); Lymphocytes Percent Auto 14.8 % (20-40); Mean Corpuscular HGB Conc 33.2 g/dl (31.0-35.0); Mean Corpuscular Hemoglobin 28.4 pg (27.0-33.0); Mean Corpuscular Volume 85.3 fL (80.0-98.0); Mean Platelet Volume 10.4 fL (9.4-12.3); Monocytes Percent Auto 7.3 % (2-11); Neutrophils Percent Auto 74.1 % (45-73); Platelet Count 272 X10*3/uL (160-400); Red Blood Count 3.88 X10*6/uL (4.20-5.50); White Blood Count 13.5 X10*3/uL (4.8-10.8)
[2022-07-10 22:00] VITALS: BP 205/64; PULSE 90; RESP 16; TEMP 36.8; O2SAT 98
[2022-07-10 22:11] LABS: Appearance Urine Clear; Color Urine Yellow; Glucose Urine UA >=1000 mg/dL (Negative); Leukocyte Esterase Urine Small (1+) (Negative); Nitrite Urine Negative (Negative); PH 6.5 (5.0-9.0); Specific Gravity - Urine 1.015 (1.005-1.025); UMIC TRIGGER UACC YES; Urine Blood Small (1+) (Negative); Urine Ketones Negative (Negative); Urine Protein 300 (3+) mg/dL (Neg-Trace)
[2022-07-10 22:19] LABS: Bacteria Urine Trace (None Seen); Hyaline Casts Urine 0-2 /LPF (0-2); RBC Urine 0-2 /HPF (0-2); UACC Culture Trigger YES; WBC Urine 21-50 /HPF (0-5)
[2022-07-10 22:22] LABS: Alanine Aminotransferase 11 U/L (0-31); Albumin Level 3.4 g/dL (3.5-5.0); Alkaline Phosphatase 106 U/L (39-117); Anion Gap 20 (12-20); Aspartate Amino Transferase 16 U/L (5-31); Bilirubin Direct < 0.2 mg/dL (0.0-0.5); Bilirubin Total 0.4 mg/dL (0.0-1.0); Blood Urea Nitrogen 57 mg/dL (9-16); Calcium 8.8 mg/dL (8.4-10.2); Carbon Dioxide 17 mmol/L (22-29); Chloride 100 mmol/L (96-108); Estimated Glomerular Filt Rate 19; Glucose Random 486 mg/dL (60-115); Lipase 35 U/L (8-78); Potassium 5.2 mmol/L (3.3-5.1); Sodium 132 mmol/L (135-145); Total Protein 6.9 g/dL (6.5-8.0)
[2022-07-10 22:31] LABS: COVID-19 Test Negative (Negative)
--- NOTE | 2022-07-10 22:38 | MHC.CM.ED ---
CM met with patient at request of Dr. Fragoso. Pt well known to CM. A&Ox3. Pt was at [facility] from 02/12-06/09. Recently d/c home. Grossly Morbidly obese. No ambulation. Has [facility] for PT, OT and VNA. Come weekly. Had CLASSER, who quit today and left for [place] (nephew). Pt tells CM that [employer] was not paying her nephew, as there was some problem with the insurance, so he quit. Pt cannot safely remain at home alone. Cannot self transfer from wheelchair to bed. Cannot complete ADL's independently. Has hospital bed and wheelchair. States W/C is too small, as she gained weight in rehab. Needs motorized wheelchair. Also, does not have insulin at home. Per pt[facility] [address] [facility] due to the national insulin shortage. PCP is Dr. Ochoa. Vax x2 J&J 01/29/21 and Pfizer 08/13/21. Pt states PT at home was working on strengthening for self transfers. Dr. Fragoso aware of above. PT is pending. Referrals placed. CM following for discharge planning.
[2022-07-10 22:50] VITALS: BP 166/58
[2022-07-10] MEDS: Labetalol HCL 100 MG TABLET PO (23:06)
[2022-07-10] MEDS: Insulin Regular, Human 100 UNIT/ML 3 ML VIAL 10 UNIT IVPUSH (23:07)
[2022-07-10 23:51] LABS: Glucose, Whole Blood 368 mg/dL (60-115)
[2022-07-11] VITALS (7 sets, daily range): BP systolic 123–154; BP diastolic 49–69; PULSE 67–76; RESP 11–20; TEMP 36.6–36.9; O2SAT 94–100
[2022-07-11] MEDS: ondansetron HCL 4 MG/2 ML VIAL IVPUSH (00:44)
[2022-07-11] MEDS: 0.9 % Sodium Chloride 1,000 ML 999 ML IVCONT (00:46)
[2022-07-11] MEDS: Insulin Regular, Human 100 UNIT/ML 3 ML VIAL 10 UNIT IVPUSH (00:46)
[2022-07-11 00:53] LABS: Glucose, Whole Blood 363 mg/dL (60-115)
[2022-07-11 01:42] LABS: Glucose, Whole Blood 278 mg/dL (60-115)
[2022-07-11 02:50] LABS: Glucose, Whole Blood 252 mg/dL (60-115)
[2022-07-11 07:03] LABS: Glucose, Whole Blood 301 mg/dL (60-115)
--- NOTE | 2022-07-11 12:50 | PHA.MEDREC ---
MED REC COMPLETE, BASED OFF PATIENTS MOST RECENT REHAB DISCHARGE Pharmacy Consult ? Medication Reconciliation Pharmacy has completed the medication reconciliation.
[2022-07-11 13:52] LABS: Glucose, Whole Blood 347 mg/dL (60-115)
--- NOTE | 2022-07-11 14:02 | MHC.CM.ED ---
Patient remains in ER. Physical therapy is pending. Will not be able to secure placement until this is done. Patient's glucose level is elevated due to home medications not being given yet. Will be ordered by Rubina MENSAH. Continue to monitor for d/c needs.
[2022-07-11] MEDS: Torsemide 20 MG TABLET PO (14:23)
[2022-07-11] MEDS: Insulin Lispro 100 UNIT/ML 3 ML VIAL 14 UNIT SUBCUT ×2 (14:23→18:34)
[2022-07-11] MEDS: amLODIPine Besylate 10 MG TABLET PO (14:23)
[2022-07-11] MEDS: Gabapentin 100 MG CAPSULE PO ×2 (14:23→21:05)
[2022-07-11] MEDS: Insulin Glargine,Hum.rec.anlog 100 UNIT/ML 10 ML VIAL 60 UNIT SUBCUT ×2 (14:24→21:05)
[2022-07-11] MEDS: cefTRIAXone sodium 1 GM in 0.9 % Sodium Chloride 50 ML IV (14:25)
[2022-07-11 18:23] LABS: Glucose, Whole Blood 282 mg/dL (60-115)
[2022-07-11] MEDS: Insulin Lispro 100 UNIT/ML 3 ML VIAL SUBCUT ×2 (18:33→21:06)
[2022-07-11 21:05] LABS: Glucose, Whole Blood 254 mg/dL (60-115)
[2022-07-11] MEDS: Nystatin Cream 15 GM TUBE 1 APPL TOPICAL (21:05)
[2022-07-11] MEDS: rOPINIRole HCL 0.5 MG TABLET PO (21:05)
--- NOTE | 2022-07-11 21:16 | PC.NURSE ---
Patient is alert, oriented x4. She is assisted with repositioning and mimi care before bed. Pure wick repositioned and nystatin applied. Call gonzalez is within reach.
[2022-07-12 00:01] LABS: Glucose, Whole Blood 171 mg/dL (60-115)
[2022-07-12 06:00] VITALS: BP 128/53; PULSE 65; RESP 17; O2SAT 97
[2022-07-12] MEDS: Omeprazole 20 MG CAPSULE.DR PO (06:26)
--- NOTE | 2022-07-12 06:30 | PC.NURSE ---
Patient slept comfortably through the night and without complaint. Repositions self in bed as needed.
[2022-07-12 07:34] LABS: Glucose, Whole Blood 126 mg/dL (60-115)
[2022-07-12] MEDS: Gabapentin 100 MG CAPSULE PO ×2 (07:50→21:40)
[2022-07-12] MEDS: amLODIPine Besylate 10 MG TABLET PO (07:50)
[2022-07-12] MEDS: Insulin Glargine,Hum.rec.anlog 100 UNIT/ML 10 ML VIAL 60 UNIT SUBCUT ×2 (07:51→23:03)
[2022-07-12] MEDS: Nystatin Cream 15 GM TUBE 1 APPL TOPICAL (07:52)
[2022-07-12] MEDS: Torsemide 20 MG TABLET PO (08:00)
[2022-07-12 12:03] LABS: Glucose, Whole Blood 178 mg/dL (60-115)
[2022-07-12] MEDS: Insulin Lispro 100 UNIT/ML 3 ML VIAL SUBCUT ×3 (13:43→19:31)
[2022-07-12 14:00] VITALS: BP 142/61; PULSE 72; RESP 14; TEMP 36.9; O2SAT 99
[2022-07-12 16:19] LABS: Glucose, Whole Blood 251 mg/dL (60-115)
[2022-07-12] MEDS: Ondansetron ODT 4 MG TAB.RAPDIS TRANSLINGU (16:24)
--- NOTE | 2022-07-12 16:32 | PC.NURSE ---
left AC 20g removed per pt request
[2022-07-12] MEDS: Insulin Lispro 100 UNIT/ML 3 ML VIAL 14 UNIT SUBCUT (19:32)
[2022-07-12] MEDS: rOPINIRole HCL 0.5 MG TABLET PO (21:59)
[2022-07-12 22:20] LABS: Glucose, Whole Blood 195 mg/dL (60-115)
--- NOTE | 2022-07-12 22:26 | PC.NURSE ---
Pt refused d/t she says, she doesn't take any insulin at home and that 60 unit is is too high. this nurse, will re - check POC and discuss the insulin with provider [place].
--- NOTE | 2022-07-12 23:03 | PC.NURSE ---
Pt has been given cracker and light gisela mallory. Pt has been given insulin lantus 60 u, order by hospitalist and confirm by Dr. Cam.
[2022-07-13 00:18] LABS: Glucose, Whole Blood 162 mg/dL (60-115)
--- NOTE | 2022-07-13 01:54 | PC.NURSE ---
Patient care at 23:30 wet and fixed purewick suction for unrine flow.
[2022-07-13 02:41] VITALS: BP 143/62; PULSE 65; RESP 16; TEMP 37.1; O2SAT 95
[2022-07-13 06:00] VITALS: BP 138/61; PULSE 65; RESP 16; TEMP 36.8; O2SAT 97
[2022-07-13] MEDS: Omeprazole 20 MG CAPSULE.DR PO (06:09)
[2022-07-13 06:47] LABS: Glucose, Whole Blood 127 mg/dL (60-115)
[2022-07-13 07:41] VITALS: BP 154/65; PULSE 66; RESP 15; TEMP 36.9; O2SAT 98
--- NOTE | 2022-07-13 07:51 | PC.NURSE ---
Dr. Ross held 14U insulin due to POC
[2022-07-13] MEDS: Torsemide 20 MG TABLET PO (08:24)
[2022-07-13] MEDS: Insulin Glargine,Hum.rec.anlog 100 UNIT/ML 10 ML VIAL 60 UNIT SUBCUT ×2 (08:24→21:14)
[2022-07-13] MEDS: amLODIPine Besylate 10 MG TABLET PO (08:25)
[2022-07-13] MEDS: Gabapentin 100 MG CAPSULE PO ×2 (08:25→21:13)
[2022-07-13 08:42] VITALS: BP 154/65; PULSE 66; O2SAT 98
--- NOTE | 2022-07-13 09:50 | MHC.CM.ED ---
Patient remains in ER. Physical therapy eval completed. Short term rehab is being recommended. Clinical updates sent to facilities still following patient: [facility], [facility], [facility], [facility] [place], [facility], and [facility]. Continue to monitor for d/c needs.
[2022-07-13 13:35] LABS: Glucose, Whole Blood 178 mg/dL (60-115)
[2022-07-13] MEDS: Insulin Lispro 100 UNIT/ML 3 ML VIAL SUBCUT ×3 (13:40→21:13)
--- NOTE | 2022-07-13 14:37 | MHC.CM.ED ---
No bed offers available from referral already made. Referral broadcasted within 50 miles of patient's home to all facilities contracted with patient's insurance. 43 referrals made. Continue to monitor for d/c needs.
--- NOTE | 2022-07-13 16:56 | PC.NURSE ---
THIS PCT ASSUMED CARE OF PT AT 1500 ,PT PUREWICH CHANGE ,AND PT DRY ,CALL HERNANDEZ WITHIN REACH .
[2022-07-13 17:14] LABS: Glucose, Whole Blood 168 mg/dL (60-115)
[2022-07-13 18:50] VITALS: BP 142/56; PULSE 69; RESP 16; TEMP 36.6; O2SAT 93
[2022-07-13 18:55] LABS: Glucose, Whole Blood 185 mg/dL (60-115)
--- NOTE | 2022-07-13 19:10 | PC.NURSE ---
1800 rounding done pt is resting watching television .bs taken ,call gonzalez within reach .
--- NOTE | 2022-07-13 20:46 | PC.NURSE ---
1999 rounding done ,pt ate 100 % of dinner ,pt was we mimi care given ,new purewick in place ,bed pads change ,barrier cream apply to coccyx powder apply to all folds and lotion apply to arm and legs ,fresh pitcher water ,bs taken call gonzalez within reach .
[2022-07-13 20:54] VITALS: BP 145/58; PULSE 69; RESP 16; TEMP 36.8; O2SAT 97
[2022-07-13 20:58] LABS: Glucose, Whole Blood 238 mg/dL (60-115)
[2022-07-13] MEDS: Nystatin Cream 15 GM TUBE 1 APPL TOPICAL (21:15)
[2022-07-13] MEDS: rOPINIRole HCL 0.5 MG TABLET PO (21:25)
--- NOTE | 2022-07-13 21:48 | PC.NURSE ---
POC 238, Lantus 60 and Humalog 4 units administered per MAR. Patient has been given turkey sandwich and diet gisela mallory for snack. Patient ate 100% of snack-no glycemic reactions noted/reported by pt.
--- NOTE | 2022-07-13 22:38 | PC.NURSE ---
2200 rounding done pt asleep call gonzalez within reach
--- NOTE | 2022-07-13 23:10 | PC.NURSE ---
myself and charly mckee change patient at [phone] .
[2022-07-14 06:11] VITALS: BP 133/79; PULSE 76; RESP 18; TEMP 36.7; O2SAT 96
--- NOTE | 2022-07-14 06:15 | PC.NURSE ---
pt was changed and her purewick was replaced .. she is all set for day
[2022-07-14] MEDS: Omeprazole 20 MG CAPSULE.DR PO (06:23)
[2022-07-14 07:17] LABS: Glucose, Whole Blood 188 mg/dL (60-115)
[2022-07-14] MEDS: Insulin Lispro 100 UNIT/ML 3 ML VIAL SUBCUT ×4 (07:40→21:51)
[2022-07-14] MEDS: amLODIPine Besylate 10 MG TABLET PO (09:23)
[2022-07-14] MEDS: Torsemide 20 MG TABLET PO (09:23)
[2022-07-14] MEDS: Gabapentin 100 MG CAPSULE PO ×2 (09:23→21:51)
[2022-07-14] MEDS: Insulin Glargine,Hum.rec.anlog 100 UNIT/ML 10 ML VIAL 60 UNIT SUBCUT ×2 (09:24→21:51)
[2022-07-14] MEDS: Nystatin Cream 15 GM TUBE 1 APPL TOPICAL ×2 (09:26→21:50)
[2022-07-14] MEDS: Ondansetron ODT 4 MG TAB.RAPDIS TRANSLINGU (09:28)
--- NOTE | 2022-07-14 09:30 | PC.NURSE ---
PT A&Ox3, denies pain, reported nausea, PRN zofran given. Meds given as documented.
[2022-07-14 12:43] VITALS: BP 126/49; RESP 17; TEMP 36.9; O2SAT 97
[2022-07-14 14:00] LABS: Glucose, Whole Blood 189 mg/dL (60-115)
--- NOTE | 2022-07-14 14:21 | MHC.CM.ED ---
Patient remains in ER. Spoke with Tameka, liaison for the [facility]. She is still waiting to hear from administration if they will be able to accept patient. Referral broadcasted in the entire [facility] to all facilities contracted with patient's insurance at this time. A total of 83 referrals broadcasted in [facility]. Continue to monitor for d/c needs.
--- NOTE | 2022-07-14 15:31 | MHC.CM.ED ---
Received telephoen call from Judith at [facility]. They are willing to offer a bed once ins auth is obtained. Met with patient. Patient agreeable. Judith aware and is in the process of obtaining insurance auth. Continue to monitor for d/c needs.
[2022-07-14 18:11] LABS: Glucose, Whole Blood 263 mg/dL (60-115)
[2022-07-14 21:20] VITALS: BP 147/58; PULSE 67; TEMP 36.7; O2SAT 94
[2022-07-14 21:29] LABS: Glucose, Whole Blood 309 mg/dL (60-115)
--- NOTE | 2022-07-14 22:12 | PC.NURSE ---
Called Pharmacy. Awaiting 2100 dose 0.5mg Requip
[2022-07-14] MEDS: rOPINIRole HCL 0.5 MG TABLET PO (22:43)
--- NOTE | 2022-07-15 05:55 | PC.NURSE ---
Pt. resting comfortably throughout the night. AOx4. VSS. Medicated per MAR. Tolerating PO intake. Denies complaints. Call light within reach.
[2022-07-15 06:14] VITALS: BP 149/66; PULSE 66; TEMP 37.1; O2SAT 98
[2022-07-15 07:04] VITALS: BP 139/68; PULSE 65; RESP 20; TEMP 36.7; O2SAT 100
[2022-07-15 07:09] LABS: Glucose, Whole Blood 148 mg/dL (60-115)
[2022-07-15] MEDS: Gabapentin 100 MG CAPSULE PO (07:23)
[2022-07-15] MEDS: Omeprazole 20 MG CAPSULE.DR PO (07:23)
[2022-07-15] MEDS: amLODIPine Besylate 10 MG TABLET PO (07:23)
[2022-07-15] MEDS: Torsemide 20 MG TABLET PO (07:24)
[2022-07-15] MEDS: Insulin Glargine,Hum.rec.anlog 100 UNIT/ML 10 ML VIAL 60 UNIT SUBCUT (07:24)
[2022-07-15] MEDS: Nystatin Cream 15 GM TUBE 1 APPL TOPICAL (07:25)
--- NOTE | 2022-07-15 07:32 | PC.NURSE ---
pt is a/o x 4 no sob/colton noted lungs - cta. speaks in full sentences. heart sounds regular. abd very obese, soft non-tender, bs + x 4 quads. pt c/o constipation. poc 148, no insulin coverage. pt ate 100% of breakfast. dawson lower edema. pt aware of plan of care.
--- NOTE | 2022-07-15 08:44 | PC.NURSE ---
patient wash and clean.
[2022-07-15] MEDS: Acetaminophen 325 MG TABLET 650 MG PO (08:58)
[2022-07-15] MEDS: Docusate Sodium 100 MG CAPSULE PO (08:58)
[2022-07-15] MEDS: Milk of Magnesia 30 ML ORAL.SUSP 15 ML PO (08:59)
[2022-07-15 09:58] LABS: COVID-19 Test Negative (Negative); IDNOW Serial# 16C4AD1C
--- NOTE | 2022-07-15 11:37 | MHC.CM.ED ---
Patient remains in ER. [facility] has obtained insurance auth. Patient can leave today. Patient would like to wait until tomorrow so family has a chance to bring her clothes before she goes. T/W spoke with Judith at [facility]. They will not be able to hold the bed if patient does not transfer today. Patient aware and agreeable. Aryan ENNIS booked. [facility] with chart. Patient, Deborah RN, and Iman MENSAH aware. Continue to monitor for d/c needs.
--- NOTE | 2022-07-15 11:43 | PC.NURSE ---
rn to rn report given to [facility], pt aware of plan of care for transport to [facility] via [facility].
--- NOTE | 2022-07-15 12:04 | PC.NURSE ---
rn to rn given to ziyad at [facility].
== END 2022-07-15 11:40 | disposition skilled nursing facility (03) ==
PROVIDERS: Physician Assistant Medical; Emergency Provider Emergency Medicine; PCP Internal Medicine
DX: E11.65 Type 2 diabetes mellitus with hyperglycemia (principal); R11.2 Nausea with vomiting, unspecified; I10 Essential (primary) hypertension; R26.81 Unsteadiness on feet; Z20.822 Contact with and (suspected) exposure to COVID-19; Z79.899 Other long term (current) drug therapy; Z79.4 Long term (current) use of insulin; Z87.891 Personal history of nicotine dependence
CPT/HCPCS: 36415; 80048; 80076; 81001; 82947; 83690; 85025; 87086; 87635; 96361; 96365; 96375; 96376; 97163; 99285; J0696; J2405

== ENCOUNTER 2025-05-11 22:49 | Inpatient (IN) | payer MEDICARE, MEDICAID, SELFPAY ==
--- OUTSIDE RECORDS SUMMARY | 2022-07-01 08:00 | XMS_ITS | Continuity of Care Document ---
Author Organization [facility] Address [address] [address] Phone Care Team Providers Care Paraffiner Name Role Phone Caleb URBINA, Fiona Unavailable Unavailable Advance Directives Directive Yes / No Effective Date File Name No Information Encounters Encounter Description Practice Location Reason(s) For Visit Diagnoses Date Provider [facility], [address], [id number], [place] tel:[phone] [facility] No Information 2021 Caleb Jaimes. [address] [place], [place], [id number], [place]. tel:[phone] Family History Family Member Type Diagnosis Age [...]
--- OUTSIDE RECORDS SUMMARY | 2025-05-10 20:00 | XMS_ITS ---
Author Name Benita Garrison Address [address] [place] [address] Phone [phone] Organization [facility], NA DOCUMENT DISCLAIMER Multiple document versions may exist, please be sure you review the latest version. The information in the [facility] Progress Note Document represents a providers documented clinical note containing certain health and medical information. It may not contain the complete medical history for the patient and should be independently verified. The represented time in the document is Eastern Time PROVIDER ROUNDING NOTE BASIC Patient:?Isabel?Dona,?1960,?64y,?F Dialysis?Location:?[facility] Attending?Pattern Chain Maker Supervisor:?Dolores Service?Date:?05/11/2025 Service?Provider:?Benita?Meli,?INVENTORY AUDIT CLERK I?met?face?to?face?with?the?patient?today. 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 Patient?data?updated?05/11/2025?at?4:29?PM Signed?By:?Meli,?Benita,?INVENTORY AUDIT CLERK??on?05/11/2025?4:29:54?PM END OF DOCUMENT
--- NOTE | ~2025-05-11 | XR_ITS ---
CLINICAL HISTORY: nausea, subjective fever, ESRD 1 view chest x-ray Comparison: CR/SR - XR CHEST 2 VIEWS - 06/04/22 18:14 EDT Findings: The lungs are clear. Normal size heart. No acute fracture. IMPRESSION: 1. No acute findings. This document has been electronically signed by: Nash Camejo MD on 05/12/2025 00:19:55
[2025-05-11 22:56] VITALS: BP 151/69; PULSE 76; O2SAT 98
[2025-05-11 23:01] VITALS: BP 120/66; PULSE 76; RESP 18; TEMP 37.4; O2SAT 98; BMI 50.2
[2025-05-11 23:23] LABS: MANUAL DIFF FLAG NO
[2025-05-11 23:24] LABS: Hematocrit 29.7 % (37.0-47.0); Hemoglobin 10.5 g/dl (12.0-16.0); Imm Gran Abs Auto 0.06 X10*3/uL (0.00-0.03); Imm Gran Pct Auto 0.5 % (0.0-0.4); Lymphocytes Absolute Auto 1.4 X10*3/uL (1.2-4.9); Mean Corpuscular HGB Conc 35.4 g/dl (31.0-35.0); Mean Corpuscular Hemoglobin 32.6 pg (27.0-33.0); Mean Corpuscular Volume 92.2 fL (80.0-98.0); NRBC Abs Auto 0.000 X10*3/uL (0.0-0.012); NRBC Pct Auto 0.0 /100WBC (0.0-0.2); Platelet Count 167 X10*3/uL (160-400); Red Blood Count 3.22 X10*6/uL (4.20-5.50); White Blood Count 12.2 X10*3/uL (4.8-10.8)
--- OUTSIDE RECORDS SUMMARY | 2025-05-11 23:31 | XMS_ITS | Encounter Summary ---
Author Organization [facility], Address [address] [place] [address] Phone Care Team Providers Care Racquet Maker Name Role Phone Terry Ochoa MD Primary Care Provider [phone] Encounter Details Date Type Department Care Team (Late st Contact Info) Description 05/11/2025 Treatment [facility], [address] [place] [id number] Benita Garrison FNP-C [address] [place] [address] [place] [address] End stage renal disease; Dependence on renal dialysis Social History Tobacco Use Types Packs/Day Years Used Date Smoking Tobacco: Former Cigarettes Q uit: 08/30/2001 Smokeless Tobacco: Never Alcohol Use Standard Drinks/Week Comments No 0 (1 standard drink = 0.6 oz pur e alcohol) Comments Unknown Sex and Gender Information Value Date Recorded Sex Assigned at Not on file Legal Sex Female 4:48 PM EST Gender Identity Not on file Sexual Orientation Not on file documented as of this encounter Miscellaneous Notes * Dialysis Note - Benita Garrison FNP-C - 05/11/2025 12:00 AM EDT Patient: Isabel Carcamo, 1960, 64y, F Dialysis Location: [facility] [place] Attending Entry Level Accountant: Alan Mccarthy Service Date: 05/11/2025 Service Provider: Benita Garrison NP I met face to face with the patient today. OVERVIEW The patient presented with ESRD on dialysis Primary cause of renal failure: Type 2 Diabetes mellitus with diabetic nephropathy LAST HOSPITALIZATION Admission Date 04/30/25 DIALYSIS PRESCRIPTION IHD 3x Week Start date: 05/11/25 Dialyzer: FX CorAL 80 BFR: 450 DFR: Manual 800 Potassium: 2.0 Sodium: 137 EDW: 140 Duration: 4:15 Calcium: 2.50 Bicarb: 35 Rx updated on: 05/11/2025 ACCESS ASSESSMENT Access Type: AVGraft Access SubType: Unknown Access Status: Active (In Use) - 04/25/2025 Access Location: Left Forearm Created: 06/14/2024 DIAGNOSIS Chief Complaint: N18.6 End stage renal disease Patient is stable. Patient data updated 05/11/2025 at 4:29 PM Signed By: Benita Garrison NP on 05/11/2025 4:29:54 PM documented in this encounter Plan of Treatment Not on file documented as of this encounter Visit Diagnoses Diagnosis End stage renal disease Dependence on renal dialysis documented in this encounter Care Teams Racquet Maker Relationship Specialty Start Date End Date Terry Ochoa MD [address] [place], [place] PCP - General Internal Medicine 07/21/23 documented as of this encounter
--- OUTSIDE RECORDS SUMMARY | 2025-05-11 23:31 | XMS_ITS ---
Author Organization [facility] Care Team Providers Care Power System Electrical Engineer Name Role Phone Bhargavi Xavier Unavailable Unavailable Marquez Farrar MD Unavailable Unavailable Allergies and adverse reactions Code CodeSystem Substance Reaction Severity StartDate Concern Status 6809 RXNORM Metformin Moderate 07/15/2021 active Care Team Name Role Address Phone Organization Dates Marquez Farrar MD PCP [address] [place] [address], [id number], [place] (Office): [facility] 07/15/2021 - 11/26/2021 Bhargavi Xavier [facility] [address] [place] [address], [id number], [place] (Office): [facility] 07/15/2021 - 11/26/2021 Immunizations Immunization Status Vaccine Details Vaccine Code CodeSystem Date Notes Influenza normal Influenza, high-dose, split virus, quadrivalent, injectable, preservative free 197 CVX created date: 1 consent date: 1 had in May 2021 TB 2 Step Mantoux Skin Test completed tuberculin skin test; unspecified formulation lotNumber: [id number] expiry: 01/29/2023 Mfg: [employer] Given 0.1 ml Left Forearm intradermally Step 2 of Multi-step with next step required 98 CVX created date: 2 consent date: 2 administe red date: 2 TB 2 Step Mantoux Skin Test completed tuberculin skin test; unspecified formulation lotNumber: [id number] expiry: 12/19/2022 [facility]: [email or web address] Given 0.1 ml Right Forearm subcutaneously Step 1 of Multi-step with next step required 98 CVX created date: 1 consent date: 1 administe red date: 1 TB 2 Step Mantoux Skin Test completed tuberculin skin test; unspecified formulation Step 1 of Multi-step with next step required 98 CVX created date: 1 administe red date: 1 (J&J) SARS-COV-2-(COV ID-19) completed SARS-COV-2 (COVID-19) vaccine, vector non-replicating, recombinant spike protein-Ad26, preservative free, 0.5 mL 212 CVX created date: 1 administe red date: 1 (PFIZER) Covid-19 Booster completed SARS-COV-2 (COVID-19) vaccine, mRNA, spike protein, LNP, preservative free, 30 mcg/0.3mL dose lotNumber: [id number] Given Right Deltoid intramuscularly 208 CVX created date: 1 consent date: 1 administe red date: 1 Educated by Magdy Lynn on 08/13/2021 Mental Status Section Date Assessment Total Score Description 11/26/2021 BIMS 14 cognitively int act CAM 0 No delirium ind icated PHQ-9 04 minimal depress ion 10/14/2021 BIMS 14 cognitively int act CAM 0 No delirium ind icated PHQ-9 09 mild depression Problems Problem # Description Date of onset Resolved Date Code CodeSystem Concern Status 1 ADJUSTMENT DISORDER WITH MIXED ANXIETY AND DEPRESSED MOOD 10/17/[address] active 2 LYMPHEDEMA, NOT ELSEWHERE CLASSIFIED 07/16/[address] active 3 DYSPHAGIA, UNSPECIFIED 07/15/[address] active 4 ESSENTIAL (PRIMARY) HYPERTENSION 07/15/[address] active 5 HYPERLIPIDEMIA, UNSPECIFIED 07/15/[address] active 6 MORBID (SEVERE) OBESITY DUE TO EXCESS CALORIES 07/15/[address] active 7 MUSCLE WEAKNESS (GENERALIZED) 07/15/[address] active 8 NAUSEA 07/15/[address] active 9 OTHER SPECIFIED ABNORMAL FINDINGS OF BLOOD CHEMISTRY 07/15/[address] active 10 OTHER SPECIFIED ABNORMALITIES OF PLASMA PROTEINS 07/15/[address] active 11 TYPE 2 DIABETES MELLITUS WITH DIABETIC CHRONIC KIDNEY DISEASE 07/15/[address] active 12 TYPE 2 DIABETES MELLITUS WITH DIABETIC NEUROPATHY, UNSPECIFIED 07/15/[address] active 13 TYPE 2 DIABETES MELLITUS WITHOUT COMPLICATIONS 07/15/[address] active 14 UNSPECIFIED ABDOMINAL PAIN 07/15/[address] active 15 UNSPECIFIED ASTHMA, UNCOMPLICATED 07/15/[address] active 16 URINARY TRACT INFECTION, SITE NOT SPECIFIED 07/15/[address] active 17 WEAKNESS 07/15/[address] active Reason for Referral No Reasons for Referral Entered Social History Social History Observation Description Start Date End Date Code Code System Current Smoking Status Tobacco smoking consumption unknown 052294276 SNOMED CT Sex Assigned At Female 1960 [address]-6 [facility] Gender Identity Sexual Orientation Vital Signs Code Code System Vitals Name Values and Units Timing Information 8462-4 [facility] Blood Pressure-Diastolic Value=78 Un its=mmHg 11/26/2021 8480-6 LOINC Blood Pressure-Systolic Jhlas=756 Un its=mmHg 11/26/2021 8867-4 LOINC Heart rate Value=80.0 Units=/min 2339-0 LOINC Blood Sugar Evsed=703.0 Units=mg/dL 11/26/2021 76943-1 LOINC Pain Level Value=0.0 11/25/2021 78760-3 LOINC Weight Hsmcg=099.8 Units=Lbs 9279-1 LOINC Respiratory Rate Value=16.0 Units=/m in 11/25/2021 8310-5 LOINC Body Temperature Value=97.7 Units= F 11/25/2021 24353-4 LOINC O2 % BldC Oximetry Value=98.0 Units= % 11/25/2021 8302-2 LOINC Height Value=66.0 Units=Inches 07/17/2021
--- OUTSIDE RECORDS SUMMARY | 2025-05-11 23:31 | XMS_ITS | Clinical Summary ---
Author Organization [facility] Address [address] [facility] [address] [place] [id number] Phone Care Team Providers Care It Support Technician Name Role Phone Alexi Lynne MD Primary Care Provider [phone] Allergies No known active allergies Medications hydrALAZINE (APRESOLINE) 25 MG tablet Take 25 mg by mouth 3 (three) times a day. 07/20/20 22 Active gabapentin (NEURONTIN) 100 MG capsule Take 200 mg by mouth 2 (two) times a day. Active sodium zirconium cyclosilicate (LOKELMA) 10 gram Take 10 g by mouth as needed for other (free text field) (hyperkalemia). Active torsemide (DEMADEX) 20 MG tablet Take 100 mg by mouth 2 (two) times a day (once in the morning and once in the afternoon). Active rOPINIRole (REQUIP) 0.25 MG tablet Take 0.25 mg by mouth nightly at bedtime. Active oxyBUTYnin (DITROPAN) 5 MG tablet Take 15 mg by mouth daily. Active amLODIPine (NORVASC) 10 MG tablet Take 10 mg by mouth daily. Active senna (SENOKOT) 8.6 mg tablet Take 2 tablets by mouth daily. Active calcium carbonate 500 mg (200 mg elemental) chewable tablet Take 2 tablets by mouth daily as needed for heartburn. Active docusate sodium (COLACE) 100 MG capsule Take 100 mg by mouth 2 (two) times a day. Active albuterol 90 mcg/actuation inhaler Inhale 2 puffs into the lungs every 4 (four) hours as needed for wheezing. Active epoetin silverio (EPOGEN,PROCRIT) 2,000 unit/mL injection Inject 2,000 Units under the skin as directed. With dialysis Active insulin glargine (LANTUS) 100 unit/mL injection vial Inject 35 Units under the skin daily. 15 mL 04/28/20 25 Active insulin lispro (ADMELOG, HUMALOG) 100 unit/mL injection vial Inject 10 Units under the skin 3 (three) times a day with meals. 04/27/20 25 Active neomycin-bacitrac in zinc-polymyxin B (TRIPLE ANTIBIOTIC) ointment Apply topically 2 (two) times a day (once in the morning and once in the afternoon). 15 g 04/27/20 25 Active pantoprazole (PROTONIX) 40 MG tablet Take 1 tablet (40 mg total) by mouth daily. 30 tablet 04/27/20 25 Active ciprofloxacin HCl (CIPRO) 250 MG tablet Take 250 mg by mouth daily. Discontin ued(Stop Taking at Discharge ) pantoprazole (PROTONIX) 20 MG tablet Take 20 mg by mouth daily. Discontin ued(Stop Taking at Discharge ) insulin lispro (ADMELOG, HUMALOG) 100 unit/mL injection vial Inject 25 Units under the skin 3 (three) times a day before meals. Discontin ued(Stop Taking at Discharge ) mupirocin (BACTROBAN) 2 % cream Apply 1 Application topically 3 (three) times a day. Skin folds Discontin ued(Stop Taking at Discharge ) insulin glargine 100 unit/mL (3 mL) InPn injection pen Inject 25 Units under the skin 2 (two) times a day. Discontin ued(Stop Taking at Discharge ) Active Problems Problem Noted Date Diagnosed Date Hypoxia 04/12/2025 Assessment & Plan (04/26/2025 1:15 PM EDT): During her prolonged stay at [place] she required 2 L of oxygen. At presentation clinically fluid overloaded with evidence of acute on chronic hypoxia requiring 4L via NC to maintain O2 sat 90s. Oxygen requirement mostly due to volume overload. She may have component of obesity hypoventilation, she has been diagnosed with JULIUS although not on CPAP. Weaned off O2 yesterday Assessment & Plan (04/25/2025 1:42 PM EDT): During her prolonged stay at [place] she required 2 L of oxygen. At presentation clinically fluid overloaded with evidence of acute on chronic hypoxia requiring 4L via NC to maintain O2 sat 90s. Oxygen requirement mostly due to volume overload. She may have component of obesity hypoventilation, she has been diagnosed with JULIUS although not on CPAP. 8/20 weaned to room air during hemodialysis session. Since then patient has required intermittent use of oxygen at 1 L. With continued diuresis patient is needing oxygen less frequently. Check room air sats today Assessment & Plan (04/24/2025 7:10 PM EDT): During her prolonged stay at [place] she required 2 L of oxygen. At presentation clinically fluid overloaded with evidence of acute on chronic hypoxia requiring 4L via NC to maintain O2 sat 90s. Oxygen requirement mostly due to volume overload. She may have component of obesity hypoventilation, she has been diagnosed with JULIUS although not on CPAP. 8/20 weaned to room air during hemodialysis session. Since then patient has required intermittent use of oxygen at 1 L. With continued diuresis patient is needing oxygen less frequently. - Wean O2 to keep SPO2 92 to 96%, as she is diuresed and treated with dialysis and diuretic. -Patient will need home O2 eval on day of discharge to coordinate oxygen on discharge. -Will need outpatient sleep study. None seen in our records. Assessment & Plan (04/23/2025 4:21 PM EDT): During her prolonged stay at [place] she required 2 L of oxygen. At presentation clinically fluid overloaded with evidence of acute on chronic hypoxia requiring 4L via NC to maintain O2 sat 90s. Oxygen requirement mostly due to volume overload. She may have component of obesity hypoventilation, she has been diagnosed with JULIUS although not on CPAP. 8/20 weaned to room air during hemodialysis session. Since then patient has required intermittent use of oxygen at 1 L. With continued diuresis patient is needing oxygen less frequently. - Wean O2 to keep SPO2 92 to 96%, as she is diuresed and treated with dialysis and diuretic. -Patient will need home O2 eval on day of discharge. -Will need outpatient sleep study. None seen in our records. Assessment & Plan (04/22/2025 4:03 PM EDT): During her prolonged stay at [place] she required 2 L of oxygen. At presentation clinically fluid overloaded with evidence of acute on chronic hypoxia requiring 4L via NC to maintain O2 sat 90s. Oxygen requirement mostly due to volume overload. She may have component of obesity hypoventilation, she has been diagnosed with JULIUS although not on CPAP. 8/20 weaned to room air during hemodialysis session. Since then patient has required intermittent use of oxygen at 1 L. With continued diuresis patient is needing oxygen less frequently. - Wean O2 to keep SPO2 92 to 96%, as she is diuresed and treated with dialysis and diuretic - needing clarification re: what is needed for CPAP for insurance purposes. I do not see a sleep study in our records. Assessment & Plan (04/21/2025 4:16 PM EDT): During her prolonged stay at [place] she required 2 L of oxygen. At presentation clinically fluid overloaded with evidence of acute on chronic hypoxia requiring 4L via NC to maintain O2 sat 90s. Oxygen requirement mostly due to volume overload. She may have component of obesity hypoventilation, she has been diagnosed with JULIUS although not on CPAP. 8/20 weaned to room air during hemodialysis session. Since then patient has required intermittent use of oxygen at 1 L. - Wean O2 to keep SPO2 92 to 96%, as she is diuresed and treated with dialysis and diuretic - needing clarification re: what is needed for CPAP for insurance purposes. I do not see a sleep study in our records. Assessment & Plan (04/20/2025 6:23 PM EDT): During her prolonged stay at [place] she required 2 L of oxygen. At presentation clinically fluid overloaded with evidence of acute on chronic hypoxia requiring 4L via NC to maintain O2 sat 90s. Oxygen requirement mostly due to volume overload. She may have component of obesity hypoventilation, she has been diagnosed with JULIUS although not on CPAP. 8/20 weaned to room air during hemodialysis session. Since then patient has required intermittent use of oxygen at 1 L. - Wean O2 to keep SPO2 92 to 96%, as she is diuresed and treated with dialysis and diuretic - needing clarification re: what is needed for CPAP for insurance purposes. I do not see a sleep study in our records. Assessment & Plan (04/19/2025 11:51 AM EDT): During her prolonged stay at [place] she required 2 L of oxygen. At presentation clinically fluid overloaded with evidence of acute on chronic hypoxia requiring 4L via NC to maintain O2 sat 90s. Oxygen requirement mostly due to volume overload. She may have component of obesity hypoventilation, she has been diagnosed with JULIUS although not on CPAP. 04/18 weaned to room air during hemodialysis session, she appears euvolemic at this time - Wean O2 to keep SPO2 92 to 96%, as she is diuresed and treated with dialysis and diuretic - needing clarification re: what is needed for CPAP for insurance purposes. I do not see a sleep study in our records. Assessment & Plan (04/18/2025 5:59 PM EDT): During her prolonged stay at [place] she required 2 L of oxygen. Since admission she continues on 1.5 L oxygen with sats at 97-100% O2 requirement is possibly secondary to obesity hypoventilation, underlying JULIUS, and some element of volume overload which has been treated by hemodialysis and torsemide. - Wean O2 to keep SPO2 92 to 96%as she is diuresed and treated with dialysis. -04/18 weaned to room air during hemodialysis session, she might be euvolemic at this time Assessment & Plan (04/17/2025 2:27 PM EDT): During her prolonged stay at [place] she required 2 L of oxygen. Since admission she continues on 1.5 L oxygen with sats at 97-100% O2 requirement is possibly secondary to obesity hypoventilation, underlying JULIUS, and some element of volume overload which has been treated by hemodialysis and torsemide. - She continues to require 1.5 L of oxygen - Wean O2 to keep SPO2 92 to 96%as she is diuresed and treated with dialysis. - Will need home O2 eval on the day of discharge Assessment & Plan (04/16/2025 8:33 AM EDT): During her prolonged stay at [place] she required 2 L of oxygen. Since admission she continues on 1.5 L oxygen with sats at 97-100% O2 requirement is possibly secondary to obesity hypoventilation, underlying JULIUS, and some element of volume overload which has been treated by hemodialysis and torsemide. - She continues to require 1.5 L of oxygen - Wean O2 to keep SPO2 92 to 96%as she is diuresed and treated with dialysis. - Will need home O2 eval on the day of discharge Assessment & Plan (04/15/2025 11:22 AM EDT): During her prolonged stay at [place] she required 2 L of oxygen. Since admission she continues on 1.5 L oxygen with sats at 97-100% O2 requirement is possibly secondary to obesity hypoventilation, underlying JULIUS, and some element of volume overload which has been treated by hemodialysis and torsemide. - She continues to require 1.5 L of oxygen - Wean O2 to keep SPO2 92 to 96%as she is diuresed and treated with dialysis. - Will need home O2 eval on the day of discharge Assessment & Plan (04/14/2025 6:39 PM EDT): During her prolonged stay at [place] she required 2 L of oxygen. Since admission she continues on 1.5 L oxygen with sats at 97-100% O2 requirement is possibly secondary to obesity hypoventilation, underlying JULIUS, and some element of volume overload which has been treated by hemodialysis and torsemide. - She continues to require 1.5 L of oxygen - Wean O2 to keep SPO2 92 to 96%as she is diuresed and treated with dialysis. - Will need home O2 eval on the day of discharge Assessment & Plan (04/13/2025 4:02 PM EDT): During her prolonged stay at [place] she required 2 L of oxygen. Since admission she continues on 1.5 L oxygen with sats at 97-100% O2 requirement is possibly secondary to obesity hypoventilation, underlying JULIUS, and some element of volume overload which has been treated by hemodialysis and torsemide. - She continues to require 1.5 L of oxygen. - Wean O2 to keep SPO2 92 to 96%as she is diuresed and treated with dialysis. - Will need home O2 eval on the day of discharge Assessment & Plan (04/12/2025 3:56 PM EDT): During her prolonged stay at [place] she has required 2 L of oxygen. Since admission she continues on 1.5 L oxygen with sats at 97-100. O2 requirement is possibly secondary to obesity hypoventilation, underlying JULIUS, and some element of volume overload which has been treated by hemodialysis and torsemide. - She continues to require 1.5 L of oxygen. - Respiratory consulted for home O2 eval as will need home oxygen arranged for chronic hypoxic respiratory failure History of UTI 04/07/2025 Assessment & Plan (04/26/2025 1:15 PM EDT): Patient states history of recurrent UTI Apparently was started on a 30-day course of treatment with ciprofloxacin in february. Clinically was asymptomatic with no concerns for acute infection therefore Cipro discontinued because of risk versus benefit concerns UA with trace leukocyte Estrace. Urine culture only growing yeast 8/14 On 04/22 complaints of dysuria, thought to be secondary to vulvovaginal candidiasis. Treated with fluconazole 150 mg p.o. x 1. Patient with no further complaint of dysuria. No findings to suggest active infection at this time. Assessment & Plan (04/25/2025 1:42 PM EDT): Patient states history of recurrent UTI Apparently was started on a 30-day course of treatment with ciprofloxacin in february. Clinically was asymptomatic with no concerns for acute infection therefore Cipro discontinued because of risk versus benefit concerns UA with trace leukocyte Estrace. Urine culture only growing yeast 8/14 On 04/22 complaints of dysuria, thought to be secondary to vulvovaginal candidiasis. Treated with fluconazole 150 mg p.o. x 1. Patient with no further complaint of dysuria. No findings to suggest active infection at this time. Assessment & Plan (04/24/2025 7:10 PM EDT): Patient states history of recurrent UTI Apparently was started on a 30-day course of treatment with ciprofloxacin in february., c On arrival she was on ciprofloxacin for 30 days. Clinically was asymptomatic with no concerns for acute infection therefore Cipro discontinued because of risk versus benefit concerns agree that there may be greater risk than benefit of continuing ciprofloxacin at this point. UA with trace leukocyte Estrace. Urine culture only growing yeast 8/14 On 04/22 complaints of dysuria, thought to be secondary to vulvovaginal candidiasis. Treated with fluconazole 150 mg p.o. x 1. Patient with no further complaint of dysuria. No findings to suggest active infection at this time. No antibiotics prescribed during this hospitalization. Assessment & Plan (04/23/2025 4:21 PM EDT): Patient states history of recurrent UTI Apparently was started on a 30-day course of treatment with ciprofloxacin in mid February., c On arrival she was on ciprofloxacin for 30 days. Clinically was asymptomatic with no concerns for acute infection therefore Cipro discontinued because of risk versus benefit concerns agree that there may be greater risk than benefit of continuing ciprofloxacin at this point. UA with trace leukocyte Estrace. Urine culture only growing yeast 8/14 On 04/22 complaints of dysuria, thought to be secondary to vulvovaginal candidiasis. Treated with fluconazole 150 mg p.o. x 1. Patient with no further complaint of dysuria. No findings to suggest active infection at this time. No antibiotics prescribed during this hospitalization. Assessment & Plan (04/22/2025 4:03 PM EDT): Apparently was started on a 30-day course of treatment with ciprofloxacin in mid February. No findings to suggest active infection at this time. No antibiotics prescribed during this hospitalization. -- Requested records from [facility] and Dr Yuen of [place]; re-requested records on 04/19 Assessment & Plan (04/21/2025 4:16 PM EDT): Apparently was started on a 30-day course of treatment with ciprofloxacin in mid February. No findings to suggest active infection at this time. No antibiotics prescribed during this hospitalization. -- Requested records from [facility] and Dr Yuen of [place]; re-requested records on 04/19 Assessment & Plan (04/20/2025 6:23 PM EDT): Apparently was started on a 30-day course of treatment with ciprofloxacin in february. No findings to suggest active infection at this time. No antibiotics prescribed during this hospitalization. -- Requested records from [facility] and Dr Yuen of [place]; re-requested records on 04/19 Assessment & Plan (04/19/2025 11:51 AM EDT): Apparently was started on a 30-day course of treatment with ciprofloxacin in mid February. No findings to suggest active infection at this time. No antibiotics prescribed during this hospitalization. -- Requested records from [facility] and Dr Yuen of [place]; re-requested records on 04/19 Assessment & Plan (04/18/2025 5:59 PM EDT): Apparently was started on a 30-day course of treatment with ciprofloxacin in mid February. No findings to suggest active infection at this time. No antibiotics prescribed during this hospitalization. -- Requested records from [facility] -- Continue to hold on further antibiotics. Assessment & Plan (04/17/2025 2:27 PM EDT): Apparently was started on a 30-day course of treatment with ciprofloxacin in mid February. No findings to suggest active infection at this time. No antibiotics prescribed during this hospitalization. -- Requested records from [facility] -- Continue to hold on further antibiotics. Assessment & Plan (04/16/2025 8:33 AM EDT): Apparently was started on a 30-day course of treatment with ciprofloxacin in mid February. No findings to suggest active infection at this time. No antibiotics prescribed during this hospitalization. -- Requested records from [facility] -- Continue to hold on further antibiotics. Assessment & Plan (04/15/2025 11:22 AM EDT): Apparently was started on a 30-day course of treatment with ciprofloxacin in mid February. No findings to suggest active infection at this time. No antibiotics prescribed during this hospitalization. -- Requested records from [facility] -- Continue to hold on further antibiotics. Assessment & Plan (04/14/2025 6:39 PM EDT): Apparently was started on a 30-day course of treatment with ciprofloxacin in mid February. No findings to suggest active infection at this time. No antibiotics prescribed during this hospitalization. -- Requested records from [facility] -- Continue to hold on further antibiotics. Assessment & Plan (04/13/2025 4:02 PM EDT): Apparently was started on a 30-day course of treatment with ciprofloxacin in mid February. No findings to suggest active infection at this time. No antibiotics prescribed during this hospitalization. -- Requested records from Dr. Paul Lebrno in [place] -- Continue to hold on further antibiotics. Assessment & Plan (04/12/2025 3:56 PM EDT): Apparently was started on a 30-day course of treatment with ciprofloxacin in mid February. No findings to suggest active infection at this time. No antibiotics prescribed during this hospitalization. -- Requested records from Dr. Paul Lebron in [place] -- Continue to hold on further antibiotics. Assessment & Plan (04/11/2025 3:37 PM EDT): Apparently was started on a 30-day course of treatment with ciprofloxacin in mid February. No findings to suggest active infection at this time. No antibiotics prescribed during this hospitalization. -- Requested records from Dr. Paul Lebron in [place] -- Continue to hold on further antibiotics. Assessment & Plan (04/10/2025 4:52 PM EDT): Apparently was started on a 30-day course of treatment with ciprofloxacin in mid February. No findings to suggest active infection at this time. -- Requested records from Dr. Paul Lebron in [place] -- Hold on additional antibiotics for now Assessment & Plan (04/09/2025 1:32 PM EDT): Apparently was started on a 30-day course of treatment with ciprofloxacin in mid February. No findings to suggest active infection at this time. -- Requestin records from Dr. Paul Lebron in [place] -- Hold on additional antibiotics for now Assessment & Plan (04/07/2025 4:33 PM EDT): Apparently was started on a 30-day course of treatment with ciprofloxacin in mid February. No findings to suggest active infection at this time. -- Will try to obtain records from Dr. Paul Lebron in [place] on Wednesday -- Hold on additional antibiotics for now ESRD (end stage renal disease) 04/05/2025 Assessment & Plan (04/27/2025 9:15 AM EDT): - Patient has been cleared at [facility] unit to start Wednesday at 6:30 AM she can be discharged as long as she has transportation available. Details of outpatient personal financial counselor requirements being addressed. -For now we will continue with inpatient HD Wednesday regimen. Tolerating dialysis treatment well, potentially will be DC planning for outpt HD at [facility] [place] next Wednesday. - Continue fluid restriction 1.2 L daily max. Fortunately reaching dry weight. - hepatitis B non-reactive. Will aim for repeat vaccination with Heplisav as outpatient - hgb stable - AVG working well Assessment & Plan (04/26/2025 8:12 AM EDT): - Patient has been cleared at [facility] unit to start Wednesday at 6:30 AM she can be discharged as long as she has transportation available. Details of outpatient personal financial counselor requirements being addressed. -For now we will continue with inpatient HD Wednesday regimen. Tolerating dialysis treatment well.Next due tomorrow, potentially will be DC planning for outpt HD at [facility] [place] next Wednesday. - Continue fluid restriction 1.2 L daily max. Fortunately reaching dry weight. - hepatitis B non-reactive. Will aim for repeat vaccination with Heplisav as outpatient - hgb stable - AVG working well Assessment & Plan (04/25/2025 9:51 AM EDT): - Patient has been cleared at [facility] unit to start Wednesday at 6:30 AM she can be discharged as long as she has transportation available. -For now we will continue with inpatient HD Wednesday regimen. Tolerating dialysis treatment well. - Continue fluid restriction 1.2 L daily max. Fortunately reaching dry weight. - hepatitis B non-reactive. Will aim for repeat vaccination with Heplisav as outpatient - hgb stable - AVG working well -Details of outpatient personal financial counselor requirements being addressed. Assessment & Plan (04/24/2025 9:54 AM EDT): - Patient has been cleared at [facility] to start tomorrow at 6:30 AM she can be discharged as long as she has transportation available. -For now we will continue with inpatient HD Wednesday regimen. - Continue fluid restriction 1.2 L daily max. Fortunately reaching dry weight. - hepatitis B non-reactive. Will aim for repeat vaccination with Heplisav as outpatient - hgb stable - AVG working well Assessment & Plan (04/23/2025 10:54 AM EDT): -Unfortunately despite extensive search locally at [facility] and [facility] no local dialysis center with bariatric bed to accommodate her dialysis. Our team have exhausted all search in the local dialysis centers. Highly suggest to start statewide search and [id number] for other facilities if she needs rehab could potentially benefit from rehab and dialysis onsite. -For now we will continue with inpatient HD Wednesday regimen. - Continue fluid restriction 1.2 L daily max. Fortunately reaching dry weight. - hepatitis B non-reactive. Will aim for repeat vaccination with Heplisav as outpatient - hgb stable - AVG working well - Weight 150 kg and chronic coccyx pain issues have hampered her ability to transfer during her dialysis tenure. Assessment & Plan (04/21/2025 8:03 AM EDT): -Unfortunately no local dialysis center with bariatric bed to accommodate her dialysis. -For now we will continue with inpatient HD Wednesday regimen. Next dialysis Wednesday. - Continue fluid restriction 1.2 L daily max. Fortunately reaching dry weight. - hepatitis B non-reactive. Will aim for repeat vaccination with Heplisav as outpatient - hgb stable - AVG working well - Weight 150 kg and chronic coccyx pain issues have hampered her ability to transfer during her dialysis tenure. -If discharged back to [place] outpatient dialysis unit will need transportation. Assessment & Plan (04/20/2025 9:02 AM EDT): -Continue with HD while inpatient Wednesday regimen. Tolerating dialysis well today. - Continue fluid restriction 1.2 L daily max. Fortunately reaching dry weight. - hepatitis B non-reactive. Will aim for repeat vaccination with Heplis[facility] as outpatient - hgb stable - AVG working well - Weight 150 kg and chronic coccyx pain issues have hampered her ability to transfer during her dialysis tenure. - Unfortunately no local dialysis center available for her needs requiring bariatric bed with appropriate transportation, appreciate efforts of case management and social work to help locate outpatient dialysis center across the state. -If discharged to [place] outpatient dialysis unit will need transportation. Assessment & Plan (04/19/2025 8:46 AM EDT): -Continue with HD while inpatient Wednesday regimen. - Continue fluid restriction 1.2 L daily max. Fortunately reaching dry weight. - continue M/W/F schedule for now next dialysis tomorrow Wednesday. - hepatitis B non-reactive. Will aim for repeat vaccination with Heplisav as outpatient - hgb stable - AVG working well - Weight 150 kg and chronic coccyx pain issues have hampered her ability to transfer during her dialysis tenure. - Unfortunately no local dialysis center available for her needs requiring bariatric bed with appropriate transportation, appreciate efforts of case management and social work to help locate outpatient dialysis center across the state. Assessment & Plan (04/18/2025 9:39 AM EDT): -Continue with HD while inpatient Wednesday regimen. - Continue fluid restriction 1.2 L daily max. Fortunately reaching dry weight. - continue M/W/F schedule for now - hepatitis B non-reactive. Will aim for repeat vaccination with Heplisav as outpatient - hgb stable - AVG working well - Weight 150 kg and chronic coccyx pain issues have hampered her ability to transfer during her dialysis tenure. -Unfortunately our team found no local dialysis center with available option to dialyze in bed (but reports she is unable to transfer no leg strength to assist), also will need transportation assistance. - would kindly ask case management to start looking for out of area dialysis rehab centers [facility] -Consider PT OT while inpatient assess risk of fall and ability to move to a chair. -Other options check with previous outpatient unit in [place] if still available chair and able to arrange transportation from and to her home. Assessment & Plan (04/17/2025 10:42 AM EDT): -Continue with HD while inpatient Wednesday regimen. - Continue with renal diet and fluid restriction to 1 liter per day recommended (she likes ice chips and we are getting close to 5-5.4 liters of fluid off for treatment) - continue M/W/F schedule for now - hepatitis B non-reactive. Will aim for repeat vaccination with Heplisav as outpatient - hgb stable - AVG working well - Weight 150 kg and chronic coccyx pain issues have hampered her ability to transfer during her dialysis tenure. -Unfortunately our team found no local dialysis center with available option to dialyze in bed (but reports she is unable to transfer no leg strength to assist), also will need transportation assistance. - would kindly ask case management to start looking for out of area dialysis rehab centers [facility] -Consider PT OT while inpatient assess risk of fall and ability to move to a chair. -Other options check with previous outpatient unit in [place] if still available chair and able to arrange transportation from and to her home. Assessment & Plan (04/16/2025 10:02 AM EDT): -Continue with HD while inpatient Wednesday regimen. - Continue with renal diet and fluid restriction to 1 liter per day recommended (she likes ice chips and we are getting close to 5-5.4 liters of fluid off for treatment) - continue M/W/F schedule for now - hepatitis B non-reactive. Will aim for repeat vaccination with Heplisav as outpatient - hgb stable - AVG working well - Weight 150 kg and chronic coccyx pain issues have hampered her ability to transfer during her dialysis tenure. I was hoping we could just use large chair in dialysis unit when discharged but it's more complicated than that as she still needs to transfer (she has no leg strength to assist) and states that she has had difficulty sitting up in chair for any duration of time. We continue to work on dialysis unit placement awaiting clearance through [facility] or [facility] but she has been declined by both so far due to concerns about her ability to transfer and sit in dialysis. There are no beds available throughout the area for dialysis clinics. -Our team continues to search for local unit, I would kindly ask case management to start looking for out of area dialysis rehab centers [facility] -Consider PT OT while inpatient assess risk of fall and ability to move to a chair. Assessment & Plan (04/13/2025 7:56 AM EDT): Assessment & Plan (04/12/2025 7:42 AM EDT): Assessment & Plan (04/11/2025 10:03 AM EDT): Assessment & Plan (04/09/2025 8:57 AM EDT): Assessment & Plan (04/08/2025 12:55 PM EDT): Pt remains stable and does not require additional renal intervention today Assessment & Plan (04/07/2025 11:30 AM EDT): - volume, electrolytes and symptom lack indicate no need for dialysis today- will follow closely and continue to work on locating an outpatient facility Assessment & Plan (04/06/2025 2:35 AM EDT): - Will go ahead and resume dialysis therapy while inpatient Wednesday schedule. - HD orders in place, patient consent signed in the record. - Hepatitis B surface antigen per protocol--> negative - Hypervolemia, planning for IHD via left upper extremity AV graft 4 hours and 15 minutes ultrafiltration/fluid removal as per Crit-Line guidance. - Fortunately maintain O2 sats 99% on 4 L nasal cannula, suggest to resume her outpatient regimen including torsemide high-dose 100 mg twice daily. - Hypertension on amlodipine 10 mg daily hydralazine 25 mg 3 times a day - Diabetes resume her outpatient insulin regimen. - Potassium is controlled no need for potassium binding resin. - [facility] hopefully able to be discharged to outpatient facility closer to her home. Assessment & Plan (04/05/2025 10:40 PM EDT): Patient history of end-stage renal disease on dialysis Wednesday and Wednesday presented for fluid overload due to inability to access hemodialysis. Clinically fluid overloaded with evidence of acute on chronic hypoxia currently on 4 L saturating high 90s. Nephrology was consulted and seen in the ED. Hepatitis B surface antigen was negative. -Patient will observe on MedSur -repeat CBC, CMP, PT/INR - Nephrology consult appreciated Assessment & Plan (04/05/2025 6:10 PM EDT): - Will go ahead and resume dialysis therapy while inpatient - HD orders in place, patient consent signed - Hepatitis B surface antigen per protocol - Hypervolemia, planning for IHD via left upper extremity AV graft 4 hours and 15 minutes ultrafiltration/fluid removal as per Crit-Line guidance. - Fortunately maintain O2 sats 99% on 4 L nasal cannula, suggest to resume her outpatient regimen including torsemide high-dose 100 mg twice daily. - Hypertension on amlodipine 10 mg daily hydralazine 25 mg 3 times a day - Diabetes resume her outpatient insulin regimen. - Potassium is controlled no need for potassium binding resin. Chronic kidney disease 04/05/2025 ESRD (end stage renal disease) on dialysis 04/05 Assessment & Plan (04/26/2025 1:15 PM EDT): Patient history of end-stage renal disease on dialysis Wednesday and Wednesday presented for fluid overload due to inability to access hemodialysis. She had been discharged from [facility] her dialysis center was in [place] but she lives in [place] and she did not have transportation. She was volume overloaded on presentation, requiring HD. Nephrology was consulted. Patient is requiring a bariatric BED for hemodialysis. 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 Patient has a bariatric dialysis bed at [facility] unit. Patient remained in hospital for dialysis on 04/25. - taximeter repairer unavailable until Friday 04/27, will remain here until then -Case management working with outpatient case management for PT 1 forms for transfer to dialysis. - Next HD 04/27, with plan to DC afterwards, resume outpatient HD on 04/30. - Continue 1 L fluid restriction Assessment & Plan (04/25/2025 1:42 PM EDT): Patient history of end-stage renal disease on dialysis Wednesday and Wednesday presented for fluid overload due to inability to access hemodialysis. She had been discharged from [facility] her dialysis center was in [place] but she lives in [place] and she did not have transportation. She was volume overloaded on presentation, requiring HD. Nephrology was consulted. Patient is requiring a bariatric BED for hemodialysis. 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 Patient has a bariatric dialysis bed at [facility] dialysis unit. Patient remained in hospital for dialysis on 04/25. - taximeter repairer unavailable until Friday 04/27, will remain here until then -Case management working with outpatient case management for PT 1 forms for transfer to dialysis. - Next HD 04/27, with plan to DC afterwards, resume outpatient HD on 04/30. - Continue 1 L fluid restriction Assessment & Plan (04/24/2025 7:10 PM EDT): Patient history of end-stage renal disease on dialysis Wednesday and Wednesday presented for fluid overload due to inability to access hemodialysis. She had been discharged from [facility] her dialysis center was in [place] but she lives in [place] and she did not have transportation. She was volume overloaded on presentation, requiring HD. Nephrology was consulted and seen in the ED. Patient is requiring a bariatric BED for hemodialysis. 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 Nephrology reports they have searches and exhausted all the dialysis units in the area including [facility] and [facility] but they don't have a way to dialyze in a bariatric bed. - Patient is awake and alert and oriented no evidence of uremia. - Currently on schedule for time being - Nephrology and CM looking for appropriate HD bed and transportation; Nephrology has recommended state wide HD bed search. Case has been escalated to management on 04/19. Attempts were made for dialysis in [place] however patient was declined on 04/22 Last HD was 04/23 with removal of 5 L. Stable hemodynamically. Spoke with Dr. Esteban and patient has a bariatric dialysis bed and [place] [facility]. Initial plans were for discharge today with outpatient dialysis on 04/25 however dialysis time was at 6:30 in the morning and patient did not have [employer]ATOR coverage to be discharged home tonight. Patient remained in hospital for dialysis on 04/25. - Goal is for discharge home on 04/25 once taximeter repairer can be established to be in the house when she arrives. -Case management working with outpatient case management for PT 1 forms for transfer to dialysis. -Outpatient dialysis set up to begin on Friday 04/27 - Continue 1 L fluid restriction Assessment & Plan (04/23/2025 4:21 PM EDT): Patient history of end-stage renal disease on dialysis Wednesday and Wednesday presented for fluid overload due to inability to access hemodialysis. [facility] her dialysis center was in [place] but she lives in [place] and she did not have transportation. She was volume overloaded on presentation, requiring HD. Nephrology was consulted and seen in the ED. Patient is requiring a bariatric BED for hemodialysis. 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 Nephrology reports they have searches and exhausted all the dialysis units in the area including [facility] and [facility] but they don't have a way to dialyze in a bariatric bed. - Patient is awake and alert and oriented no evidence of uremia. - Currently on schedule for time being - Nephrology and CM looking for appropriate HD bed and transportation; Nephrology has recommended state wide HD bed search. Case has been escalated to management on 04/19. Attempts were made for dialysis in [place] however patient was declined on 04/22 04/23 Status post HD today with removal of 5 L. Stable hemodynamically. -discussed with patient in multidisciplinary rounds. Skull Chopper Dr. Esteban has secured a bariatric chair for patient in [place]. - Anticipate chair will be ready in 24 to 48 hours. -Continue torsemide - HD Wednesday. - Continue 1 L fluid restriction Assessment & Plan (04/22/2025 4:03 PM EDT): Patient history of end-stage renal disease on dialysis Wednesday and Wednesday presented for fluid overload due to inability to access hemodialysis. She had been discharged from [facility] her dialysis center was in [place] but she lives in [place] and she did not have transportation. She was volume overloaded on presentation, requiring HD. Nephrology was consulted and seen in the ED. Patient is requiring a bariatric BED for hemodialysis. 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 Nephrology reports they have searches and exhausted all the dialysis units in the area including [facility] and [facility] but they don't have a way to dialyze in a bariatric bed. - Patient is awake and alert and oriented no evidence of uremia. - Currently on schedule for time being - Nephrology and CM looking for appropriate HD bed and transportation; Nephrology has recommended state wide HD bed search. Case has been escalated to management on 04/22-discussed with patient in multidisciplinary rounds. Still no bariatric HD chair available. Declined by [facility]. -Continue torsemide - HD Wednesday. - Continue 1 L fluid restriction -Case management/social work and dye range tender continue to search for bariatric chair for outpatient dialysis. Assessment & Plan (04/21/2025 4:16 PM EDT): Patient history of end-stage renal disease on dialysis Wednesday and Wednesday presented for fluid overload due to inability to access hemodialysis. She had been discharged from [facility] her dialysis center was in [place] but she lives in [place] and she did not have transportation. She was volume overloaded on presentation, requiring HD. Nephrology was consulted and seen in the ED. Patient is requiring a bariatric BED for hemodialysis. 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 Nephrology reports they have searches and exhausted all the dialysis units in the area including [facility] and [facility] but they don't have a way to dialyze in a bariatric bed. - Patient is awake and alert and oriented no evidence of uremia. - Currently on schedule for time being - Nephrology and CM looking for appropriate HD bed and transportation; Nephrology has recommended state wide HD bed search. Case has been escalated to management on 04/21-discussed with patient in multidisciplinary rounds. Still no bariatric HD chair available. Declined by [facility]. -Continue torsemide - HD Wednesday. - Continue 1 L fluid restriction -Case management/social work and dye range tender continue to search for bariatric chair for outpatient dialysis. Assessment & Plan (04/20/2025 6:23 PM EDT): Patient history of end-stage renal disease on dialysis Wednesday and Wednesday presented for fluid overload due to inability to access hemodialysis. She had been discharged from [facility] her dialysis center was in [place] but she lives in [place] and she did not have transportation. She was volume overloaded on presentation, requiring HD. Nephrology was consulted and seen in the ED. Patient is requiring a bariatric BED for hemodialysis. 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 Nephrology reports they have searches and exhausted all the dialysis units in the area including [facility] and [facility] but they don't have a way to dialyze in a bariatric bed. - Patient is awake and alert and oriented no evidence of uremia. - Currently on schedule for time being - Nephrology and CM looking for appropriate HD bed and transportation; Nephrology has recommended state wide HD bed search. Case has been escalated to management on 04/19. 04/20-discussed with patient in multidisciplinary rounds. Still no bariatric HD chair available. -Continue torsemide - HD Wednesday. - Continue 1 L fluid restriction Assessment & Plan (04/19/2025 11:51 AM EDT): Patient history of end-stage renal disease on dialysis Wednesday and Wednesday presented for fluid overload due to inability to access hemodialysis. She had been discharged from [facility] her dialysis center was in [place] but she lives in [place] and she did not have transportation. She was volume overloaded on presentation, requiring HD. Nephrology was consulted and seen in the ED. Patient is requiring a bariatric BED for hemodialysis. 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 Nephrology reports they have searches and exhausted all the dialysis units in the area including [facility] and [facility] but they don't have a way to dialyze in a bariatric bed. - Patient is awake and alert and oriented no evidence of uremia. - Currently on schedule for time being - Nephrology and CM looking for appropriate HD bed and transportation; Nephrology has recommended state wide HD bed search. Case has been escalated to management on 04/19. - Continue 1 L fluid restriction Assessment & Plan (04/18/2025 5:59 PM EDT): Patient history of end-stage renal disease on dialysis Wednesday and Wednesday presented for fluid overload due to inability to access hemodialysis. At presentatio clinically fluid overloaded with evidence of acute on chronic hypoxia on 4 L saturating high 90s. Nephrology was consulted and seen in the ED. She had been discharged from [facility] her dialysis center was in [place] but she lives in [place] and she did not have transportation. Patient is requiring a bariatric large chair chair for hemodialysis. 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 Nephrology notes that this has been difficulty finding a dialysis center which can accommodate her. [facility] units cannot accommodate her. - Patient is awake and alert and oriented no evidence of uremia. - Currently on schedule for time being - Nephrology continuing to search for bariatric outpatient chair for dialysis. - Continue 1 L fluid restriction Assessment & Plan (04/17/2025 2:27 PM EDT): Patient history of end-stage renal disease on dialysis Wednesday and Wednesday presented for fluid overload due to inability to access hemodialysis. At presentatio clinically fluid overloaded with evidence of acute on chronic hypoxia on 4 L saturating high 90s. Nephrology was consulted and seen in the ED. She had been discharged from [facility] her dialysis center was in [place] but she lives in [place] and she did not have transportation. Patient is requiring a bariatric large chair chair for hemodialysis. 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 Nephrology notes that this has been difficulty finding a dialysis center which can accommodate her. [facility] units cannot accommodate her. - Patient is awake and alert and oriented no evidence of uremia. - Currently on schedule for time being - Nephrology continuing to search for bariatric outpatient chair for dialysis. - Continue 1 L fluid restriction Assessment & Plan (04/16/2025 8:33 AM EDT): Patient history of end-stage renal disease on dialysis Wednesday and Wednesday presented for fluid overload due to inability to access hemodialysis. At presentatio clinically fluid overloaded with evidence of acute on chronic hypoxia on 4 L saturating high 90s. Nephrology was consulted and seen in the ED. She had been discharged from [facility] her dialysis center was in [place] but she lives in [place] and she did not have transportation. Patient is requiring a bariatric large chair chair for hemodialysis. 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 Nephrology notes that this has been difficulty finding a dialysis center which can accommodate her. [facility] units cannot accommodate her. - Patient is awake and alert and oriented no evidence of uremia. - Currently on schedule for time being - Nephrology continuing to search for bariatric outpatient chair for dialysis. - Continue 1 L fluid restriction Assessment & Plan (04/15/2025 11:22 AM EDT): Patient history of end-stage renal disease on dialysis Wednesday and Wednesday presented for fluid overload due to inability to access hemodialysis. At presentatio clinically fluid overloaded with evidence of acute on chronic hypoxia on 4 L saturating high 90s. Nephrology was consulted and seen in the ED. She had been discharged from [facility] her dialysis center was in [place] but she lives in [place] and she did not have transportation. Patient is requiring a bariatric large chair chair for hemodialysis. 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 Nephrology notes that this has been difficulty finding a dialysis center which can accommodate her. [facility] units cannot accommodate her. - Patient is awake and alert and oriented no evidence of uremia. - Currently on schedule for time being - Nephrology continuing to search for bariatric outpatient chair for dialysis. - Continue 1 L fluid restriction Assessment & Plan (04/14/2025 6:39 PM EDT): Patient history of end-stage renal disease on dialysis Wednesday and Wednesday presented for fluid overload due to inability to access hemodialysis. At presentatio clinically fluid overloaded with evidence of acute on chronic hypoxia on 4 L saturating high 90s. Nephrology was consulted and seen in the ED. She had been discharged from [facility] her dialysis center was in [place] but she lives in [place] and she did not have transportation. Patient is requiring a bariatric large chair chair for hemodialysis. 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 Nephrology notes that this has been difficulty finding a dialysis center which can accommodate her. [facility] units cannot accommodate her. - Patient is awake and alert and oriented no evidence of uremia. - Currently on schedule for time being - Nephrology continuing to search for bariatric outpatient chair for dialysis. - Continue 1 L fluid restriction Assessment & Plan (04/13/2025 4:02 PM EDT): Patient history of end-stage renal disease on dialysis Wednesday and Wednesday presented for fluid overload due to inability to access hemodialysis. At presentatio clinically fluid overloaded with evidence of acute on chronic hypoxia on 4 L saturating high 90s. Nephrology was consulted and seen in the ED. She had been discharged from [facility] her dialysis center was in [place] but she lives in [place] and she did not have transportation. -Received dialysis 04/11 - Patient is awake and alert and oriented no evidence of uremia. - Currently on schedule for time being Patient received dialysis today 04/13 Patient is requiring a bariatric large chair chair for hemodialysis. 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 Nephrology notes that this has been difficulty finding a dialysis center which can accommodate her. [facility] units cannot accommodate her. - Nephrology continuing to search for bariatric outpatient chair for dialysis. Discussing with [facility] to see if they have a facility for bariatric dialysis. Chair unlikely to be available until early next week. -Will follow with nephrology as they attempt to secure patient on outpatient burst for dialysis. -Continue 1 L fluid restriction - Continue twice daily as patient is making small amount of urine. - Monitor electrolytes and renal labs intermittently. Assessment & Plan (04/12/2025 3:56 PM EDT): Patient history of end-stage renal disease on dialysis Wednesday and Wednesday presented for fluid overload due to inability to access hemodialysis. At presentatio clinically fluid overloaded with evidence of acute on chronic hypoxia on 4 L saturating high 90s. Nephrology was consulted and seen in the ED. She had been discharged from [facility] her dialysis center was in [place] but she lives in [place] and she did not have transportation. -Received dialysis 04/11 - Patient is awake and alert and oriented no evidence of uremia. - Currently on schedule for time being 04/12--Spoke with nephrology regarding plans for outpatient hemodialysis. Patient is requiring a bariatric large chair chair for hemodialysis. 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 Nephrology notes that this has been difficulty finding a dialysis center which can accommodate her. [facility] units cannot accommodate her. - Now trying to reach out to [facility] to see if they have a facility for bariatric dialysis. -Will follow with nephrology as they attempt to secure patient on outpatient burst for dialysis. -Continue 1 L fluid restriction - Continue twice daily as patient is making small amount of urine. - Monitor electrolytes and renal labs. Assessment & Plan (04/11/2025 3:37 PM EDT): Patient history of end-stage renal disease on dialysis Wednesday and Wednesday presented for fluid overload due to inability to access hemodialysis. At presentatio clinically fluid overloaded with evidence of acute on chronic hypoxia on 4 L saturating high 90s. Nephrology was consulted and seen in the ED. [facility] her dialysis center was in [place] but she lives in [place] and she did not have transportation. --Spoke with nephrology regarding plans for outpatient hemodialysis. It sounds like patient was requiring a bariatric chair for treatments a large chair , will need ambulance transportation. -- Received dialysis 04/09 with removal of 4.8 L and last Wednesday, - anticipate schedule for time being 04/11-patient remained stable no signs of uremia Scheduled for hemodialysis today. -Will follow with nephrology as they attempt to secure patient on outpatient burst for dialysis. -Continue 1 L fluid restriction - Hold torsemide this morning with HD resume at evening dose as patient is making small amount of urine. - Monitor electrolytes and renal labs. Assessment & Plan (04/10/2025 4:52 PM EDT): Patient history of end-stage renal disease on dialysis Wednesday and Wednesday presented for fluid overload due to inability to access hemodialysis. At presentatio clinically fluid overloaded with evidence of acute on chronic hypoxia on 4 L saturating high 90s. Nephrology was consulted and seen in the ED. She had been discharged from [facility] her dialysis center was in [place] but she lives in [place] and she did not have transportation. --Spoke with nephrology regarding plans for outpatient hemodialysis. It sounds like patient was requiring a bariatric chair for treatments a large chair , will need ambulance transportation. -- Received dialysis 04/09 with removal of 4.8 L and last Wednesday, - anticipate schedule for time being -Will follow with nephrology as they attempt to secure patient on outpatient burst for dialysis. - Due for dialysis tomorrow 04/11 (Wednesday). No evidence of uremia. Labs show potassium of 4.1 stable electrolytes creatinine 3.1. -Continue 1 L fluid restriction - Continue torsemide as patient is making small amount of urine. - Monitor electrolytes and renal labs. Assessment & Plan (04/09/2025 1:23 PM EDT): Patient history of end-stage renal disease on dialysis Wednesday and Wednesday presented for fluid overload due to inability to access hemodialysis. At presentatio clinically fluid overloaded with evidence of acute on chronic hypoxia on 4 L saturating high 90s. Nephrology was consulted and seen in the ED. She had been discharged from [facility] her dialysis center was in [place] but she lives in [place] and she did not have transportation. --Spoke with nephrology regarding plans for outpatient hemodialysis. It sounds like patient was requiring a bariatric chair for treatments a large chair , will need ambulance transportation. -- Received dialysis today and last Wednesday, anticipate schedule for time being --1 L fluid restriction Assessment & Plan (04/08/2025 3:43 PM EDT): Patient history of end-stage renal disease on dialysis Wednesday and Wednesday presented for fluid overload due to inability to access hemodialysis. At presentatio clinically fluid overloaded with evidence of acute on chronic hypoxia on 4 L saturating high 90s. Nephrology was consulted and seen in the ED. She had been discharged from [facility] her dialysis center was in [place] but she lives in [place] and she did not have transportation Case management and social work working to arrange outpatient dialysis at a dialysis center closer to her home and trying to help arrange transportation. Will need input from nephrology on Wednesday --Received HD on Friday 04/06, previous regimen was every T-TH-Sa -- Anticipate next treatment Monday 04/09 Assessment & Plan (04/07/2025 6:03 PM EDT): Patient history of end-stage renal disease on dialysis Wednesday and Wednesday presented for fluid overload due to inability to access hemodialysis. At presentatio clinically fluid overloaded with evidence of acute on chronic hypoxia on 4 L saturating high 90s. Nephrology was consulted and seen in the ED. Evidently when she was discharged from [facility] her dialysis center was in [place] but she lives in [place] and she did not have transportation Case management and social work working to arrange outpatient dialysis at a dialysis center closer to her home and trying to help arrange transportation --She was treated on 04/06. Previously, had been receiving every T-TH-Sa -- Anticipate next treatment Monday 04/09 Assessment & Plan (04/06/2025 6:43 PM EDT): Patient history of end-stage renal disease on dialysis Wednesday and Wednesday presented for fluid overload due to inability to access hemodialysis. At presentatio clinically fluid overloaded with evidence of acute on chronic hypoxia on 4 L saturating high 90s. Nephrology was consulted and seen in the ED. Hepatitis B surface antigen was negative. - HD on 04/06 Evidently when she was discharged from [facility] her dialysis center was in [place] but she lives in [place] and she did not have transportation Nephrology case management social work working to arrange outpatient dialysis at a dialysis center closer to her home and trying to help arrange transportation Assessment & Plan (04/06/2025 6:44 AM EDT): Patient history of end-stage renal disease on dialysis Wednesday and Wednesday presented for fluid overload due to inability to access hemodialysis. Clinically fluid overloaded with evidence of acute on chronic hypoxia currently on 4 L saturating high 90s. Nephrology was consulted and seen in the ED. Hepatitis B surface antigen was negative. -Patient will observe on MedSurg -repeat CBC, CMP, PT/INR - Nephrology consult appreciated - Will need case management to assist setting up outpatient HD. Acute on chronic diastolic congestive heart fail ure 04/05/2025 Assessment & Plan (04/26/2025 1:15 PM EDT): Admission there was concern for decompensated heart failure in the setting of fluid overload. Last echocardiogram in the system was from September 2022 showing preserved EF but unable to determine diastolic function. LE duplex w/o DVT Dialysis has been resumed with removal of fluid. - Continue torsemide 100 mg twice daily - continue fluid restriction Assessment & Plan (04/25/2025 1:42 PM EDT): Admission there was concern for decompensated heart failure in the setting of fluid overload. Last echocardiogram in the system was from September 2022 showing preserved EF but unable to determine diastolic function. LE duplex w/o DVT Dialysis has been resumed with removal of fluid. - Continue torsemide 100 mg twice daily - continue fluid restriction Assessment & Plan (04/24/2025 7:10 PM EDT): Admission there was concern for decompensated heart failure in the setting of fluid overload. Last echocardiogram in the system was from September 2022 showing preserved EF but unable to determine diastolic function. LE duplex w/o DVT Dialysis has been resumed with removal of fluid. Status post dialysis 04/23 no evidence of exacerbation. - Continue torsemide 100 mg twice daily - continue fluid restriction Assessment & Plan (04/23/2025 4:21 PM EDT): Admission there was concern for decompensated heart failure in the setting of fluid overload. Last echocardiogram in the system was from September 2022 showing preserved EF but unable to determine diastolic function. LE duplex w/o DVT Dialysis has been resumed with removal of fluid. Status post dialysis today. No evidence of exacerbation. - Continue torsemide 100 mg twice daily - continue fluid restriction Assessment & Plan (04/22/2025 4:03 PM EDT): Admission there was concern for decompensated heart failure in the setting of fluid overload. Last echocardiogram in the system was from September 2022 showing preserved EF but unable to determine diastolic function. LE duplex w/o DVT Dialysis has been resumed with removal of fluid. Had dialysis on 04/20, remains euvolemic. No evidence of exacerbation. - Continue torsemide 100 mg twice daily - continue fluid restriction Assessment & Plan (04/21/2025 4:16 PM EDT): Admission there was concern for decompensated heart failure in the setting of fluid overload. Last echocardiogram in the system was from September 2022 showing preserved EF but unable to determine diastolic function. LE duplex w/o DVT Dialysis has been resumed with removal of fluid. Had dialysis on 04/20, remains euvolemic. No evidence of exacerbation. - Continue torsemide 100 mg twice daily - continue fluid restriction Assessment & Plan (04/20/2025 6:23 PM EDT): Admission there was concern for decompensated heart failure in the setting of fluid overload. Last echocardiogram in the system was from September 2022 showing preserved EF but unable to determine diastolic function. LE duplex w/o DVT Dialysis has been resumed with removal of fluid. Post dialysis today patient appears euvolemic. No evidence of exacerbation. - Continue torsemide 100 mg twice daily - continue fluid restriction Assessment & Plan (04/19/2025 11:51 AM EDT): Admission there was concern for decompensated heart failure in the setting of fluid overload. Last echocardiogram in the system was from September 2022 showing preserved EF but unable to determine diastolic function. LE duplex w/o DVT Dialysis has been resumed with removal of fluid. Clinically patient euvolemic. No evidence of exacerbation. - Continue torsemide 100 mg twice daily - continue fluid restriction Assessment & Plan (04/18/2025 5:59 PM EDT): Admission there was concern for decompensated heart failure in the setting of fluid overload. Last echocardiogram in the system was from September 2022 showing preserved EF but unable to determine diastolic function. LE duplex w/o DVT Dialysis has been resumed with removal of fluid. Clinically patient euvolemic. No evidence of exacerbation. --Continue torsemide 100 mg twice daily - continue fluid restriction Assessment & Plan (04/17/2025 2:27 PM EDT): Admission there was concern for decompensated heart failure in the setting of fluid overload. Last echocardiogram in the system was from September 2022 showing preserved EF but unable to determine diastolic function. LE duplex w/o DVT Dialysis has been resumed with removal of fluid. Clinically patient euvolemic. No evidence of exacerbation. --Continue torsemide 100 mg twice daily - continue fluid restriction Assessment & Plan (04/16/2025 8:33 AM EDT): Admission there was concern for decompensated heart failure in the setting of fluid overload. Last echocardiogram in the system was from September 2022 showing preserved EF but unable to determine diastolic function. LE duplex w/o DVT Dialysis has been resumed with removal of fluid. Clinically patient euvolemic. No evidence of exacerbation. --Continue torsemide 100 mg twice daily - continue fluid restriction Assessment & Plan (04/15/2025 11:22 AM EDT): Admission there was concern for decompensated heart failure in the setting of fluid overload. Last echocardiogram in the system was from September 2022 showing preserved EF but unable to determine diastolic function. LE duplex w/o DVT Dialysis has been resumed with removal of fluid. Clinically patient euvolemic. No evidence of exacerbation. --Continue torsemide 100 mg twice daily - continue fluid restriction Assessment & Plan (04/14/2025 6:39 PM EDT): Admission there was concern for decompensated heart failure in the setting of fluid overload. Last echocardiogram in the system was from September 2022 showing preserved EF but unable to determine diastolic function. LE duplex w/o DVT Dialysis has been resumed with removal of fluid. Clinically patient euvolemic. No evidence of exacerbation. --Continue torsemide 100 mg twice daily - continue fluid restriction Assessment & Plan (04/13/2025 4:02 PM EDT): Admission there was concern for decompensated heart failure in the setting of fluid overload. Last echocardiogram in the system was from September 2022 showing preserved EF but unable to determine diastolic function. LE duplex 8/H no DVT Dialysis has been resumed with removal of fluid. Dialyzed this morning 04/13. Clinically patient euvolemic. No evidence of exacerbation. --Continue torsemide 100 mg twice daily Assessment & Plan (04/12/2025 3:56 PM EDT): Admission there was concern for decompensated heart failure in the setting of fluid overload. Last echocardiogram in the system was from September 2022 showing preserved EF but unable to determine diastolic function. LE duplex 8/H no DVT Dialysis has been resumed with removal of fluid. Clinically patient euvolemic. No evidence of exacerbation. --Continue torsemide 100 mg twice daily Assessment & Plan (04/11/2025 3:37 PM EDT): Admission there was concern for decompensated heart failure in the setting of fluid overload. Last echocardiogram in the system was from September 2022 showing preserved EF but unable to determine diastolic function. LE duplex 8/H no DVT Dialysis has been resumed with removal of fluid. Clinically patient euvolemic. No evidence of exacerbation. --Continue torsemide 100 mg twice daily Continue home O2 wean as tolerated-will need home oxygen arranged for chronic hypoxic respiratory failure Assessment & Plan (04/10/2025 4:52 PM EDT): Admission there was concern for decompensated heart failure in the setting of fluid overload. Last echocardiogram in the system was from September 2022 showing preserved EF but unable to determine diastolic function. LE duplex 8/H no DVT Dialysis has been resumed with removal of fluid. --Continue torsemide 100 mg twice daily Continue home O2 wean as tolerated-will need home oxygen arranged for chronic hypoxic respiratory failure Assessment & Plan (04/09/2025 1:23 PM EDT): Suspect decompensated heart failure in the setting of fluid overload. Last echocardiogram in the system was from September 2022 showing preserved EF but unable to determine diastolic function. LE duplex 8/H no DVT --Dialysis has been resumed --Continue torsemide 100 mg twice daily Continue home O2 wean as tolerated-will need home oxygen arranged for chronic hypoxic respiratory failure Assessment & Plan (04/08/2025 3:43 PM EDT): Suspect decompensated heart failure in the setting of fluid overload. Last echocardiogram in the system was from September 2022 showing preserved EF but unable to determine diastolic function. LE duplex 8/H no DVT --Dialysis has been resumed --Continue torsemide 100 mg twice daily Continue home O2 wean as tolerated-will need home oxygen arranged for chronic hypoxic respiratory failure Assessment & Plan (04/07/2025 4:33 PM EDT): Suspect decompensated heart failure in the setting of fluid overload. Last echocardiogram in the system was from September 2022 showing preserved EF but unable to determine diastolic function. LE duplex no DVT --Dialysis has been resumed --Continue torsemide 100 mg twice daily Continue home O2 wean as tolerated-will need home oxygen arranged for chronic hypoxic respiratory failure Assessment & Plan (04/06/2025 6:43 PM EDT): Suspect decompensated heart failure in the setting of fluid overload. Last echocardiogram in the system was from September 2022 showing preserved EF but unable to determine diastolic function. - Daily weights and strict ins and outs -Continue home torsemide 100 mg twice daily -Patient will receive hemodialysis Continue home O2 wean as tolerated-will need home oxygen arranged for chronic hypoxic respiratory failure - At presentation there is concern for lower extremity swelling pain and that she is sedentary and she had lower extremity duplex of both legs on 04/06 and no DVT was seen Assessment & Plan (04/06/2025 6:46 AM EDT): Suspect decompensated heart failure in the setting of fluid overload. Last echocardiogram in the system was from September 2022 showing preserved EF but unable to determine diastolic function. - Daily weights and strict ins and outs -Continue home torsemide 100 mg twice daily -Patient will receive hemodialysis tomorrow Continue home O2 wean as tolerated- - Obtaining echocardiogram in the morning - Also obtaining LE Doppler given calf pain and worsening swelling. Patient is wheelchair-bound and immobile. Hypertension 04/05/2025 Assessment & Plan (04/26/2025 1:15 PM EDT): Blood pressure is class II. Systolics in the 140s. - Continue amlodipine and hydralazine with holding parameters. Assessment & Plan (04/25/2025 1:42 PM EDT): Blood pressure is class II. Systolics in the 140s. - Continue amlodipine and hydralazine with holding parameters. Assessment & Plan (04/24/2025 7:10 PM EDT): Blood pressure is class II. Systolics in the 140s. - Continue amlodipine and hydralazine with holding parameters. Assessment & Plan (04/23/2025 4:21 PM EDT): Blood pressure is class II. Systolics in the 140s. - Continue amlodipine and hydralazine with holding parameters. Assessment & Plan (04/22/2025 4:03 PM EDT): Blood pressure is class II. Systolics in the 140s. - Continue amlodipine and hydralazine with holding parameters. Assessment & Plan (04/21/2025 4:16 PM EDT): Blood pressure is class II. - Continue amlodipine and hydralazine with holding parameters. Assessment & Plan (04/20/2025 6:23 PM EDT): Blood pressure is class II. - Continue amlodipine and hydralazine with holding parameters. Assessment & Plan (04/19/2025 11:51 AM EDT): Blood pressure is class II. - Continue amlodipine and hydralazine with holding parameters. Assessment & Plan (04/18/2025 5:59 PM EDT): Blood pressure is class II. - Continue amlodipine and hydralazine with holding parameters. Assessment & Plan (04/17/2025 2:27 PM EDT): Blood pressure is class II. - Continue amlodipine and hydralazine with holding parameters. Assessment & Plan (04/16/2025 8:33 AM EDT): Blood pressure is class II. - Continue amlodipine and hydralazine with holding parameters. Assessment & Plan (04/15/2025 11:22 AM EDT): Blood pressure is class II. - Continue amlodipine and hydralazine with holding parameters. Assessment & Plan (04/14/2025 6:39 PM EDT): Blood pressure is class II. - Continue amlodipine and hydralazine with holding parameters. Assessment & Plan (04/13/2025 4:02 PM EDT): Blood pressure is class II. - Continue amlodipine and hydralazine with holding parameters. Assessment & Plan (04/12/2025 3:56 PM EDT): Blood pressure is class II. - Continue amlodipine and hydralazine with holding parameters. Assessment & Plan (04/11/2025 3:37 PM EDT): Blood pressure is class II. - Continue amlodipine and hydralazine with holding parameters. Assessment & Plan (04/10/2025 4:52 PM EDT): Blood pressure is class II. - Continue amlodipine and hydralazine with holding parameters. Assessment & Plan (04/09/2025 1:23 PM EDT): Continue amlodipine and hydralazine with holding parameters. Assessment & Plan (04/08/2025 3:43 PM EDT): Continue amlodipine and hydralazine with holding parameters. Assessment & Plan (04/07/2025 4:33 PM EDT): Continue amlodipine and hydralazine with holding parameters. Assessment & Plan (04/06/2025 6:43 PM EDT): Continue amlodipine and hydralazine with holding parameters. Assessment & Plan (04/05/2025 11:00 PM EDT): Continue amlodipine and hydralazine with holding parameters. 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 There is a discrepancy as to what she takes at home and at the facility. Records indicate she takes Humalog 25 units 3 times a day. She reports taking Lantus 25 units in the morning and 15 units at night Hemoglobin A1c is 7. Glucose levels remained in the mid 250s necessitating escalation of Lantus and lispro. Insulin doses have been steadily uptitrated patient now on - Lantus 35 units in the morning starting 828 - lispro to 10 units 3 times daily with meals, LYNDON -- monitor sugars today, consider increasing prandial lispro tomorrow Assessment & Plan (04/25/2025 1:42 PM EDT): Insulin-dependent type 2 diabetes likely with diabetic nephropathy. There is a discrepancy as to what she takes at home and at the facility. Records indicate she takes Humalog 25 units 3 times a day. She reports taking Lantus 25 units in the morning and 15 units at night Hemoglobin A1c is 7. Glucose levels remained in the mid 250s necessitating escalation of Lantus and lispro. Insulin doses have been steadily uptitrated patient now on - Lantus to 30 units in the morning - lispro to 10 units 3 times daily with meals, LYNDON Blood sugars have improved on this regimen but still with intermittent readings in the high 200s low 300s. Continue on current regimen for now. -Increasing Lantus to 35 units beginning tomorrow morning Assessment & Plan (04/24/2025 7:10 PM EDT): Insulin-dependent type 2 diabetes likely with diabetic nephropathy. There is a discrepancy as to what she takes at home and at the facility. Records indicate she takes Humalog 25 units 3 times a day. She reports taking Lantus 25 units in the morning and 15 units at night Hemoglobin A1c is 7. Glucose levels have remained in the mid 250s with continued escalation of Lantus and lispro. FBS this morning is 275 yesterday have been in the high 250s to 270s. Insulin doses have been steadily uptitrated patient now on - Lantus to 30 units in the morning - lispro to 10 units 3 times daily with meals, LYNDON Blood sugars have improved on this regimen approaching goal of less than 180. Continue on current regimen for now. Assessment & Plan (04/23/2025 4:21 PM EDT): Insulin-dependent type 2 diabetes likely with diabetic nephropathy. There is a discrepancy as to what she takes at home and at the facility. Records indicate she takes Humalog 25 units 3 times a day. She reports taking Lantus 25 units in the morning and 15 units at night Hemoglobin A1c is 7. Glucose levels have remained in the mid 250s with continued escalation of Lantus and lispro. FBS this morning is 275 yesterday have been in the high 250s to 270s. Increased to mid 200s despite up titration of Lantus to 28 units in the morning. - Increase Lantus to 30 units in the morning - Increase lispro to 10 units 3 times daily with meals, LYNDON Assessment & Plan (04/22/2025 4:03 PM EDT): Insulin-dependent type 2 diabetes likely with diabetic nephropathy. There is a discrepancy as to what she takes at home and at the facility. Records indicate she takes Humalog 25 units 3 times a day. She reports taking Lantus 25 units in the morning and 15 units at night Hemoglobin A1c is 7. Glucose levels have increased to mid 200s despite up titration of Lantus to 28 units in the morning. - Continue Lantus to 28 units in the morning - Increase lispro to 8 units 3 times daily with meals, LYNDON Assessment & Plan (04/21/2025 4:16 PM EDT): Insulin-dependent type 2 diabetes likely with diabetic nephropathy. There is a discrepancy as to what she takes at home and at the facility. Records indicate she takes Humalog 25 units 3 times a day. She reports taking Lantus 25 units in the morning and 15 units at night Hemoglobin A1c is 7. Glucose levels have increased to mid 200s. -Increase Lantus to 28 units in the morning -Continue lispro 5 units 3 times daily with meals, LYNDON Assessment & Plan (04/20/2025 6:23 PM EDT): Insulin-dependent type 2 diabetes likely with diabetic nephropathy. There is a discrepancy as to what she takes at home and at the facility. Records indicate she takes Humalog 25 units 3 times a day. She reports taking Lantus 25 units in the morning and 15 units at night Hemoglobin A1c is 7. Glucose levels are well-controlled -- Continue Lantus 25 units in the morning and 5 units 3 times daily with meals, LYNDON Assessment & Plan (04/19/2025 11:51 AM EDT): Insulin-dependent type 2 diabetes likely with diabetic nephropathy. There is a discrepancy as to what she takes at home and at the facility. Records indicate she takes Humalog 25 units 3 times a day. She reports taking Lantus 25 units in the morning and 15 units at night Hemoglobin A1c is 7. 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 There is a discrepancy as to what she takes at home and at the facility. Records indicate she takes Humalog 25 units 3 times a day. She reports taking Lantus 25 units in the morning and 15 units at night Hemoglobin A1c is 7. POC improved with recent increase in insulin. Glucose levels are well-controlled ranging from 117-145. -- Continue Lantus 25 units in the morning and 5 units 3 times daily with meals. -Sliding scale for correction Assessment & Plan (04/17/2025 2:27 PM EDT): Insulin-dependent type 2 diabetes likely with diabetic nephropathy. There is a discrepancy as to what she takes at home and at the facility. Records indicate she takes Humalog 25 units 3 times a day. She reports taking Lantus 25 units in the morning and 15 units at night Hemoglobin A1c is 7. POC improved with recent increase in insulin. Glucose levels are well-controlled ranging from 117-145. -- Continue Lantus 25 units in the morning and 5 units 3 times daily with meals. -Sliding scale for correction Assessment & Plan (04/16/2025 8:33 AM EDT): Insulin-dependent type 2 diabetes likely with diabetic nephropathy. There is a discrepancy as to what she takes at home and at the facility. Records indicate she takes Humalog 25 units 3 times a day. She reports taking Lantus 25 units in the morning and 15 units at night Hemoglobin A1c is 7. POC improved with recent increase in insulin. Glucose levels are well-controlled ranging from 117-145. -- Continue Lantus 25 units in the morning and 5 units 3 times daily with meals. -Sliding scale for correction Assessment & Plan (04/15/2025 11:22 AM EDT): Insulin-dependent type 2 diabetes likely with diabetic nephropathy. There is a discrepancy as to what she takes at home and at the facility. Records indicate she takes Humalog 25 units 3 times a day. She reports taking Lantus 25 units in the morning and 15 units at night Hemoglobin A1c is 7. POC improved with recent increase in insulin. Glucose levels are well-controlled ranging from 117-145. -- Continue Lantus 25 units in the morning and 5 units 3 times daily with meals. -Sliding scale for correction Assessment & Plan (04/14/2025 6:39 PM EDT): Insulin-dependent type 2 diabetes likely with diabetic nephropathy. There is a discrepancy as to what she takes at home and at the facility. Records indicate she takes Humalog 25 units 3 times a day. She reports taking Lantus 25 units in the morning and 15 units at night Hemoglobin A1c is 7. POC improved with recent increase in insulin. Glucose levels are well-controlled ranging from 117-145. -- Continue Lantus 25 units in the morning and 5 units 3 times daily with meals. -Sliding scale for correction Assessment & Plan (04/13/2025 4:02 PM EDT): Insulin-dependent type 2 diabetes likely with diabetic nephropathy. There is a discrepancy as to what she takes at home and at the facility. Records indicate she takes Humalog 25 units 3 times a day. She reports taking Lantus 25 units in the morning and 15 units at night Hemoglobin A1c is 7. POC improved with recent increase in insulin. Glucose levels are well-controlled ranging from 117-145. -- Continue Lantus 25 units in the morning and 5 units 3 times daily with meals. -Sliding scale for correction Assessment & Plan (04/12/2025 3:56 PM EDT): Insulin-dependent type 2 diabetes likely with diabetic nephropathy. There is a discrepancy as to what she takes at home and at the facility. Records indicate she takes Humalog 25 units 3 times a day. She reports taking Lantus 25 units in the morning and 15 units at night Hemoglobin A1c is 7. POC improved with recent increase in insulin. Glucose levels consistently less than 180. -- Continue Lantus 25 units in the morning and 5 units 3 times daily with meals. -Sliding scale for correction Assessment & Plan (04/11/2025 3:37 PM EDT): Insulin-dependent type 2 diabetes likely with diabetic nephropathy. There is a discrepancy as to what she takes at home and at the facility. Records indicate she takes Humalog 25 units 3 times a day. She reports taking Lantus 25 units in the morning and 15 units at night Hemoglobin A1c is 7. POC improved with recent increase in insulin. Glucose levels consistently less than 180. -- Continue Lantus 25 units in the morning and 5 units 3 times daily with meals. -Sliding scale for correction Assessment & Plan (04/10/2025 4:52 PM EDT): Insulin-dependent type 2 diabetes likely with diabetic nephropathy. There is a discrepancy as to what she takes at home and at the facility. Records indicate she takes Humalog 25 units 3 times a day. She reports taking Lantus 25 units in the morning and 15 units at night Hemoglobin A1c is 7. POC improved with recent increase in insulin. -- Continue Lantus 25 units in the morning and 5 units 3 times daily with meals. -Sliding scale for correction Assessment & Plan (04/09/2025 1:32 PM EDT): Insulin-dependent type 2 diabetes likely with diabetic nephropathy. There is a discrepancy as to what she takes at home and at the facility. Records indicate she takes Humalog 25 units 3 times a day. She reports taking Lantus 25 units in the morning and 15 units at night Hemoglobin A1c is 7. POC improved with recent increase in insulin -- Continue Lantus 25 units in the morning and 5 units 3 times daily with meals. Sliding scale for correction Assessment & Plan (04/08/2025 3:48 PM EDT): Insulin-dependent type 2 diabetes likely with diabetic nephropathy. There is a discrepancy as to what she takes at home and at the facility. Records indicate she takes Humalog 25 units 3 times a day. She reports taking Lantus 25 units in the morning and 15 units at night Hemoglobin A1c is 7. POC hovering around 200 -- Lantus was increased to 20 units this morning. Will increase to 25 units tomorrow and increase scheduled mealtime insulin to 5 units. Continue sliding scale Assessment & Plan (04/07/2025 6:03 PM EDT): Insulin-dependent type 2 diabetes likely with diabetic nephropathy. There is a discrepancy as to what she takes at home and at the facility. Records indicate she takes Humalog 25 units 3 times a day. She reports taking Lantus 25 units in the morning and 15 units at night POC currently hovering around 200. Hemoglobin A1c is 7 --Currently receiving Lantus 15 units daily. Will increase to 20 units and add scheduled mealtime insulin Assessment & Plan (04/06/2025 6:43 PM EDT): Insulin-dependent type 2 diabetes likely with diabetic nephropathy. There is a discrepancy as to what she takes at home and at the facility. Records indicate she takes Humalog 25 units 3 times a day. She reports taking Lantus 25 units in the morning and 15 units at night - continue cardiac consistent diet - On admission to [facility] basal bolus insulin regimen she was started on basal bolus insulin with reduced glargine 15 units daily Hemoglobin A1c 7.0 - 8/8 plan to increase insulin however her blood sugars are controlled on the current regimen and concerned that she may have hypoglycemia with an increase so we will hold off any changes for now Assessment & Plan (04/05/2025 11:00 PM EDT): Insulin-dependent type 2 diabetes likely with diabetic nephropathy. There is a discrepancy as to what she takes at home and at the facility. Records indicate she takes Humalog 25 units 3 times a day. - continue cardiac consistent diet - Start basal bolus insulin regimen but at a reduced dose of Lantus 15 units daily and a low-dose insulin sliding scale with [id number] testing. - Obtain hemoglobin A1c in the morning JULIUS (obstructive sleep apnea) Assessment & Plan (04/26/2025 1:15 PM EDT): Patient has a history of JULIUS but not been assessed for CPAP machine. - Outpatient sleep study to be coordinated through PCP Assessment & Plan (04/25/2025 1:42 PM EDT): Patient has a history of JULIUS but not been assessed for CPAP machine. - Outpatient sleep study to be coordinated through PCP Assessment & Plan (04/24/2025 7:10 PM EDT): Patient has a history of JULIUS but not been assessed for CPAP machine. - Outpatient sleep study to be coordinated through PCP Assessment & Plan (04/23/2025 4:21 PM EDT): Patient has a history of JULIUS but not been assessed for CPAP machine. - Outpatient sleep study to be coordinated through PCP Assessment & Plan (04/22/2025 4:03 PM EDT): Patient has a history of JULIUS but not been assessed for CPAP machine. Assessment & Plan (04/21/2025 4:16 PM EDT): Patient has a history of JULIUS but not been assessed for CPAP machine. Assessment & Plan (04/20/2025 6:23 PM EDT): Patient has a history of JULIUS but not been assessed for CPAP machine. Assessment & Plan (04/19/2025 11:51 AM EDT): Patient has a history of JULIUS but not been assessed for CPAP machine. Assessment & Plan (04/18/2025 5:59 PM EDT): Patient has a history of JULIUS but not been assessed for CPAP machine. Assessment & Plan (04/17/2025 2:27 PM EDT): Patient has a history of JULIUS but not been assessed for CPAP machine. Assessment & Plan (04/16/2025 8:33 AM EDT): Patient has a history of JULIUS but not been assessed for CPAP machine. Assessment & Plan (04/15/2025 11:22 AM EDT): Patient has a history of JULIUS but not been assessed for CPAP machine. Assessment & Plan (04/14/2025 6:39 PM EDT): Patient has a history of JULIUS but not been assessed for CPAP machine. Assessment & Plan (04/13/2025 4:02 PM EDT): Patient has a history of JULIUS but not been assessed for CPAP machine. Assessment & Plan (04/12/2025 3:56 PM EDT): Patient has a history of JULIUS but not been assessed for CPAP machine. - After dialysis saturation 98% on 2 L . Patient has been weaned down to 1-1/2 L. Patient states that since her admission to [facility] over the last 10 months she has required oxygen up to 2 L. - Will need home O2 eval on the day of discharge as patient will require home O2 at 1.5 to 2 L. - Will attempt to wean oxygen with goal pulse ox 92% as she is diuresed and treated with dialysis per Assessment & Plan (04/11/2025 3:37 PM EDT): Patient has a history of JULIUS but not been assessed for CPAP machine. - After dialysis saturation 98% on 2 L . Patient has been weaned down to 1-1/2 L. Patient states that since her admission to [facility] over the last 10 months she has required oxygen up to 2 L. - Will need home O2 eval on the day of discharge as patient will require home O2 at 1.5 to 2 L. - Will attempt to wean oxygen with goal pulse ox 92% as she is diuresed and treated with dialysis per Assessment & Plan (04/10/2025 4:52 PM EDT): Patient has a history of JULIUS but not been assessed for CPAP machine. - After dialysis saturation 98% on 2 L . Patient has been weaned down to 1-1/2 L. Patient states that since her admission to [facility] in [place] over the last 10 months she has required oxygen up to 2 L. - Will need home O2 eval on the day of discharge as patient will require home O2 at 1.5 to 2 L. - Will attempt to wean oxygen with goal pulse ox 92% as she is diuresed and treated with dialysis per Assessment & Plan (04/09/2025 1:23 PM EDT): Patient has a history of JULIUS but not been assessed for CPAP machine. - After dialysis saturation 98% on 2 L will wean oxygen with goal pulse ox 92% Assessment & Plan (04/08/2025 3:43 PM EDT): Patient has a history of JULIUS but not been assessed for CPAP machine. - After dialysis saturation 98% on 2 L will wean oxygen with goal pulse ox 92% Assessment & Plan (04/07/2025 2:46 PM EDT): Patient has a history of JULIUS but not been assessed for CPAP machine. - After dialysis saturation 98% on 2 L will wean oxygen with goal pulse ox 92% Assessment & Plan (04/06/2025 6:43 PM EDT): Patient has a history of JULIUS but not been assessed for CPAP machine. - After dialysis saturation 98% on 2 L will wean oxygen with goal pulse ox 92% Assessment & Plan (04/05/2025 11:00 PM EDT): Patient has a history of JULIUS but not been assessed for CPAP machine. - Continue home O2 Resolved Problems Problem Noted Date Diagnosed Date Resolved Date Recurrent urinary tract infection 04/23/2025 Assessment & Plan (04/22/2025 4:03 PM EDT): Patient states history of recurrent UTI currently on ciprofloxacin for 30 days. Patient asymptomatic. No concerns for infection presently At presentation ciprofloxacin held because of risk versus benefit concerns agree that there may be greater risk than benefit of continuing ciprofloxacin at this point. UA with trace leukocyte Estrace. Urine culture only growing yeast 8/14 04/22 complaints of dysuria. -Will repeat UA with reflex culture. No indication for antibiotics at present. -Will treat vulvovaginal candidiasis with fluconazole 150 mg p.o. x 1 as pt recurrent report of dysuria (perhaps she is having external irritation when she urinates). Assessment & Plan (04/21/2025 4:16 PM EDT): Patient states history of recurrent UTI currently on ciprofloxacin for 30 days. Patient asymptomatic. No concerns for infection presently At presentation ciprofloxacin held because of risk versus benefit concerns agree that there may be greater risk than benefit of continuing ciprofloxacin at this point. UA with trace leukocyte Estrace. Urine culture only growing yeast 8/14 04/20-no urinary symptoms. Stable No indication for antibiotics at present. Could empirically treat vulvovaginal candidiasis if patient has recurrent report of dysuria (perhaps she is having external irritation when she urinates). Assessment & Plan (04/20/2025 6:23 PM EDT): Patient states history of recurrent UTI currently on ciprofloxacin for 30 days. Patient asymptomatic. No concerns for infection presently At presentation ciprofloxacin held because of risk versus benefit concerns agree that there may be greater risk than benefit of continuing ciprofloxacin at this point. UA with trace leukocyte Estrace. Urine culture only growing yeast /14 04/20-no urinary symptoms. Stable No indication for antibiotics at present. Could empirically treat vulvovaginal candidiasis if patient has recurrent report of dysuria (perhaps she is having external irritation when she urinates). Assessment & Plan (04/19/2025 11:51 AM EDT): Patient states history of recurrent UTI currently on ciprofloxacin for 30 days. Patient asymptomatic. No concerns for infection presently At presentation ciprofloxacin held because of risk versus benefit concerns agree that there may be greater risk than benefit of continuing ciprofloxacin at this point. UA with trace leukocyte Estrace. Urine culture only growing yeast 8/14 No indication for antibiotics at present. Could empirically treat vulvovaginal candidiasis if patient continues to report dysuria (perhaps she is having external irritation when she urinates). Assessment & Plan (04/18/2025 5:59 PM EDT): Patient states history of recurrent UTI currently on ciprofloxacin for 30 days. Patient asymptomatic. No concerns for infection presently At presentation ciprofloxacin held because of risk versus benefit concerns agree that there may be greater risk than benefit of continuing ciprofloxacin at this point. UA with trace leukocyte Estrace. Urine culture only growing yeast 8/14 No indication for antibiotics at present. Could empirically treat vulvovaginal candidiasis to see if report of dysuria improves (perhaps she is having external irritation when she urinates). Assessment & Plan (04/17/2025 2:27 PM EDT): Patient states history of recurrent UTI currently on ciprofloxacin for 30 days. Patient asymptomatic. No concerns for infection presently At presentation ciprofloxacin held because of risk versus benefit concerns agree that there may be greater risk than benefit of continuing ciprofloxacin at this point. UA with trace leukocyte Estrace. Urine culture only growing yeast 8/14 No indication for antibiotics at present. Could empirically treat vulvovaginal candidiasis to see if report of dysuria improves (perhaps she is having external irritation when she urinates). Assessment & Plan (04/16/2025 8:33 AM EDT): Patient states history of recurrent UTI currently on ciprofloxacin for 30 days. Patient asymptomatic. No concerns for infection presently At presentation ciprofloxacin held because of risk versus benefit concerns agree that there may be greater risk than benefit of continuing ciprofloxacin at this point. UA with trace leukocyte Estrace. Urine culture only growing yeast 8/14 No indication for antibiotics at present. Could empirically treat vulvovaginal candidiasis to see if report of dysuria improves (perhaps she is having external irritation when she urinates). Assessment & Plan (04/15/2025 11:22 AM EDT): Patient states history of recurrent UTI currently on ciprofloxacin for 30 days. Patient asymptomatic. No concerns for infection presently At presentation ciprofloxacin held because of risk versus benefit concerns agree that there may be greater risk than benefit of continuing ciprofloxacin at this point. UA with trace leukocyte Estrace. Urine culture only growing yeast 8/14 No indication for antibiotics at present. Could empirically treat vulvovaginal candidiasis to see if report of dysuria improves (perhaps she is having external irritation when she urinates). Assessment & Plan (04/14/2025 6:39 PM EDT): Patient states history of recurrent UTI currently on ciprofloxacin for 30 days. Patient asymptomatic. No concerns for infection presently At presentation ciprofloxacin held because of risk versus benefit concerns agree that there may be greater risk than benefit of continuing ciprofloxacin at this point. UA with trace leukocyte Estrace. Urine culture only growing yeast 04/12 No indication for antibiotics at present. Assessment & Plan (04/13/2025 4:02 PM EDT): Patient states history of recurrent UTI currently on ciprofloxacin for 30 days. Patient asymptomatic. No concerns for infection presently - At presentation ciprofloxacin held because of risk versus benefit concerns agree that there may be greater risk than benefit of continuing ciprofloxacin at this point. UA with trace leukocyte Estrace. Urine culture pending. No indication for antibiotics at present. Assessment & Plan (04/12/2025 3:56 PM EDT): Patient states history of recurrent UTI currently on ciprofloxacin for 30 days. Patient asymptomatic. No concerns for infection presently - At presentation ciprofloxacin held because of risk versus benefit concerns agree that there may be greater risk than benefit of continuing ciprofloxacin at this point. Assessment & Plan (04/11/2025 3:37 PM EDT): Patient states history of recurrent UTI currently on ciprofloxacin for 30 days. Patient asymptomatic. No concerns for infection presently - At presentation ciprofloxacin held because of risk versus benefit concerns agree that there may be greater risk than benefit of continuing ciprofloxacin at this point. Assessment & Plan (04/10/2025 4:52 PM EDT): Patient states history of recurrent UTI currently on ciprofloxacin for 30 days. Patient asymptomatic. No concerns for infection presently - At presentation ciprofloxacin held because of risk versus benefit concerns agree that there may be greater risk than benefit of continuing ciprofloxacin at this point --Will try to obtain records from Dr. Paul Lebron in [place]. Assessment & Plan (04/09/2025 1:32 PM EDT): Patient states history of recurrent UTI currently on ciprofloxacin for 30 days. Patient asymptomatic. No concerns for infection presently - At presentation ciprofloxacin held because of risk versus benefit concerns agree that there may be greater risk than benefit of continuing ciprofloxacin at this point --Will try to obtain records from Dr. Paul Lebron in [place] on Wednesday Assessment & Plan (04/08/2025 3:43 PM EDT): Patient states history of recurrent UTI currently on ciprofloxacin for 30 days. Patient asymptomatic. No concerns for infection presently - At presentation ciprofloxacin held because of risk versus benefit concerns agree that there may be greater risk than benefit of continuing ciprofloxacin at this point --Will try to obtain records from Dr. Paul Lebron in [place] on Wednesday Assessment & Plan (04/07/2025 2:46 PM EDT): Patient states history of recurrent UTI currently on ciprofloxacin for 30 days. patient is asymptomatic. - At presentation ciprofloxacin held because of risk versus benefit concerns agree that there may be greater risk than benefit of continuing ciprofloxacin at this point Awaiting records Assessment & Plan (04/06/2025 6:43 PM EDT): Patient states history of recurrent UTI currently on ciprofloxacin for 30 days. patient is asymptomatic. - At presentation ciprofloxacin held because of risk versus benefit concerns agree that there may be greater risk than benefit of continuing ciprofloxacin at this point Awaiting records Assessment & Plan (04/05/2025 11:00 PM EDT): Patient states history of recurrent UTI currently on ciprofloxacin for 30 days. patient is asymptomatic. - Obtaining records from nursing facility -Holding off antibiotic at this time Encounters Date Type Department Care Team Description 04/17/2025 Episode Documentatio n Update [facility] [address] [place], [place] [phone] Salma Reyes 04/08/2025 Orders Only [facility] [address] [place], [place] [phone] Homehealth, Interface MD Eloisa 04/05/2025 3:05 PM EDT - 04/27/2025 3:17 PM EDT Hospital Encounter [facility] [address] [place] [address] Joseph Green MD Kielbasa, MD Cristian Agustin Tracy L, MD Albury, Lois C, MD Barbosa-Angles, Jessica Gonzalez DO, MPH Jennifer Chapin MD Discharge Disposition: Home-Health Care Svc from Last 3 Months Family History Medical History Relation Comments Kidney disease Brother Hypertension Father Kidney disease Father Breast cancer Mother Heart disease Mother Hypertension Mother Relation Status Comments Brother Father Mother Social History Tobacco Use Types Packs/Day Years Used Date Smoking Tobacco: Former Cigarettes Tobacco Cessation:Counseling Given: Not Answered Alcohol Use Standard Drinks/Week Comments Not Currently 0 (1 standard drink = 0.6 oz pur e alcohol) Education Answer Date Recorded Are you interested in more education? Not on jeannette e 04/05/2025 Are you concerned about learning? Not on file 04/05/2025 No 04/05/2025 No 04/05/2025 Food Answer Date Recorded Within the past 6 months we worried whether our food would run out before we got money to buy more. Never True 04/05/2025 Within the past 6 months the food we bought just didn't last and we didn't have enough money to get more. Never True Residential Stability Answer Date Recor ded What is your housing situation today? I have chino banda 04/05/2025 How many times have you move d in the past 12 months? Zero (I did not move) 04/05/2025 Paying for Meds Answer Date Recorded Do you have trouble paying for medicines? No 04/05/2025 Paying Utility Bills Answer Date Record ed Do you have trouble paying your heating or elect ricity bill? No 04/05/2025 Transportation Answer Date Recorded Has the lack of transportati on kept you from medical appointments or from getting medications? No 04/05/2025 Digital Access Answer Date Recorded No 04/05/2025 Yes 04/05/2025 Do you have reliable internet access at home? Ye s 04/05/2025 Do you have a device (e.g., phone, tablet, computer) with a working camera? Yes 04/05/2025 Intimate Partner Violence Answer Date R ecorded Are you denied basic needs s uch as food, clothing, or medical care? No 04/05/2025 In the past 12 months have y ou been in a relationship with a person who hurts, threatens, or tries to control you? No 04/05/2025 Are you denied basic needs s uch as food, clothing, or medical care? No 04/05/2025 In the past 12 months have y ou been in a relationship with a person who hurts, threatens, or tries to control you? No 04/05/2025 Comments Unknown Sex and Gender Information Value Date Recorded Sex Assigned at Not on file Legal Sex Female 7:46 AM EST Gender Identity Not on file Sexual Orientation Not on file Last Filed Vital Signs Vital Sign Reading Time Taken Comments Blood Pressure 112/91 04/27/2025 1:25 PM EDT Pulse 67 04/27/2025 1:25 PM EDT Temperature 35.8 C (96.4 F) 04/27/2025 1:25 PM EDT Respiratory Rate 18 04/27/2025 1:25 PM EDT Oxygen Saturation 99% 04/26/2025 8:55 PM EDT Inhaled Oxygen Concentration - - Weight 145.2 kg (320 lb 1.7 oz) 04/26/2025 6:00 AM EDT Height 167.6 cm (5' 5.98 ) 04/11/2025 6:36 AM ED T Body Mass Index 51.69 04/11/2025 6:36 AM EDT Plan of Treatment Health Maintenance Due Date Last Done Comments Adult Td,Tdap Booster 1958 BLOOD PRESSURE 1958 DEPRESSION SCREENING 1970 SMOKING Hx and SMOKELESS TOBACCO SCREENING 1971 HEPATITIS C SCREENING 1976 LIPID PANEL 1976 PNEUMOCOCCAL VACCINES (50+ years) (1 of 2 - PCV) 1977 MAMMOGRAM 1998 COLOGUARD 2003 COLONOSCOPY 2003 FIT TEST 2003 SIGMOIDOSCOPY 2003 VIRTUAL COLONOSCOPY 2003 ZOSTER VACCINES (1 of 2) 2008 RSV VACCINE (1 - Risk 60-74 years 1-dose series) 2018 OSTEOPOROSIS SCREENING INITI AL (ONE-TIME) 2023 COLORECTAL CANCER SCREENING 10/07/2023 FOBT 10/07/2023 10/07/2022 INFLUENZA VACCINE (#1) 2025 07/21/2022 DIABETIC EYE EXAM 04/05/2025 COVID-19 VACCINE (1 - 2023-2 5 season) 2025 HEMOGLOBIN A1C 10/07/2025 04/06/2025, 10/07/2022, 02/04/2022 HEPATITIS A VACCINES Aged Out No long er eligible based on patient's age to complete this topic HIB VACCINES Aged Out No longer eligi ble based on patient's age to complete this topic MENINGOCOCCAL VACCINES (ACWY) Aged Out No longer eligible based on patient's age to complete this topic MENINGOCOCCAL VACCINES (B) Aged Out N o longer eligible based on patient's age to complete this topic Medical Devices Not on file Procedures Procedure Name Priority Date/Time Associated Diagnosis Comments POCT GLUCOSE Routine 04/27/2025 1:51 PM EDT POCT GLUCOSE Routine 04/27/2025 12:05 PM EDT POCT GLUCOSE Routine 04/27/2025 10:09 AM EDT POCT GLUCOSE Routine 04/26/2025 8:52 PM EDT POCT GLUCOSE Routine 04/26/2025 5:21 PM EDT POCT GLUCOSE Routine 04/26/2025 11:49 AM EDT POCT GLUCOSE Routine 04/26/2025 7:55 AM EDT POCT GLUCOSE Routine 04/25/2025 8:50 PM EDT POCT GLUCOSE Routine 04/25/2025 5:03 PM EDT POCT GLUCOSE Routine 04/25/2025 11:49 AM EDT CBC AND DIFFERENTIAL Routine 04/25/2025 8:04 AM EDT BASIC METABOLIC PANEL Routine 04/25/2025 8:04 AM EDT POCT GLUCOSE Routine 04/25/2025 7:54 AM EDT POCT GLUCOSE Routine 04/24/2025 8:45 PM EDT POCT GLUCOSE Routine 04/24/2025 4:41 PM EDT POCT GLUCOSE Routine 04/24/2025 11:49 AM EDT HEPATITIS B SURFACE ANTIGEN Routine 04/24/2025 11:00 AM EDT POCT GLUCOSE Routine 04/24/2025 7:52 AM EDT POCT GLUCOSE Routine 04/23/2025 8:36 PM EDT POCT GLUCOSE Routine 04/23/2025 4:43 PM EDT POCT GLUCOSE Routine 04/23/2025 11:38 AM EDT CBC Routine 04/23/2025 8:49 AM EDT BASIC METABOLIC PANEL Routine 04/23/2025 8:49 AM EDT POCT GLUCOSE Routine 04/23/2025 7:57 AM EDT POCT GLUCOSE Routine 04/22/2025 8:44 PM EDT POCT GLUCOSE Routine 04/22/2025 4:12 PM EDT POCT GLUCOSE Routine 04/22/2025 12:06 PM EDT POCT GLUCOSE Routine 04/22/2025 8:01 AM EDT POCT GLUCOSE Routine 04/21/2025 8:44 PM EDT POCT GLUCOSE Routine 04/21/2025 5:12 PM EDT POCT GLUCOSE Routine 04/21/2025 12:11 PM EDT POCT GLUCOSE Routine 04/21/2025 7:39 AM EDT POCT GLUCOSE Routine 04/20/2025 8:33 PM EDT POCT GLUCOSE Routine 04/20/2025 4:41 PM EDT POCT GLUCOSE Routine 04/20/2025 11:32 AM EDT POCT GLUCOSE Routine 04/19/2025 8:51 PM EDT POCT GLUCOSE Routine 04/19/2025 4:44 PM EDT POCT GLUCOSE Routine 04/19/2025 12:08 PM EDT POCT GLUCOSE Routine 04/19/2025 8:43 AM EDT POCT GLUCOSE Routine 04/18/2025 9:03 PM EDT POCT GLUCOSE Routine 04/18/2025 5:07 PM EDT POCT GLUCOSE Routine 04/18/2025 1:36 PM EDT POCT GLUCOSE Routine 04/18/2025 8:57 AM EDT BASIC METABOLIC PANEL STAT 04/18/2025 6:00 AM EDT CBC STAT 04/18/2025 6:00 AM EDT POCT GLUCOSE Routine 04/17/2025 8:36 PM EDT POCT GLUCOSE Routine 04/17/2025 5:20 PM EDT POCT GLUCOSE Routine 04/17/2025 11:50 AM EDT POCT GLUCOSE Routine 04/17/2025 7:25 AM EDT POCT GLUCOSE Routine 04/16/2025 9:21 PM EDT POCT GLUCOSE Routine 04/16/2025 4:59 PM EDT POCT GLUCOSE Routine 04/16/2025 12:15 PM EDT POCT GLUCOSE Routine 04/16/2025 9:57 AM EDT POCT GLUCOSE Routine 04/16/2025 5:20 AM EDT POCT GLUCOSE Routine 04/15/2025 8:33 PM EDT POCT GLUCOSE Routine 04/15/2025 4:45 PM EDT POCT GLUCOSE Routine 04/15/2025 11:54 AM EDT POCT GLUCOSE Routine 04/15/2025 7:56 AM EDT PHOSPHORUS Routine 04/15/2025 6:01 AM EDT MAGNESIUM Routine 04/15/2025 6:01 AM EDT COMPREHENSIVE METABOLIC PANEL Routine 04/15/2025 6:01 AM EDT CBC AND DIFFERENTIAL Routine 04/15/2025 6:01 AM EDT POCT GLUCOSE Routine 04/14/2025 9:04 PM EDT POCT GLUCOSE Routine 04/14/2025 4:53 PM EDT POCT GLUCOSE Routine 04/14/2025 12:00 PM EDT POCT GLUCOSE Routine 04/14/2025 8:58 AM EDT POCT GLUCOSE Routine 04/13/2025 8:15 PM EDT POCT GLUCOSE Routine 04/13/2025 4:39 PM EDT POCT GLUCOSE Routine 04/13/2025 11:58 AM EDT POCT GLUCOSE Routine 04/13/2025 7:55 AM EDT POCT GLUCOSE Routine 04/12/2025 8:54 PM EDT POCT GLUCOSE Routine 04/12/2025 4:12 PM EDT URINE SEDIMENT Routine 04/12/2025 2:45 PM EDT URINALYSIS W/REFLEX URINE CULTURE Routine 04/12/2025 2:45 PM EDT URINE CULTURE Routine 04/12/2025 2:45 PM EDT POCT GLUCOSE Routine 04/12/2025 12:07 PM EDT POCT GLUCOSE Routine 04/12/2025 7:40 AM EDT CBC Routine 04/12/2025 5:34 AM EDT BASIC METABOLIC PANEL Routine 04/12/2025 5:34 AM EDT POCT GLUCOSE Routine 04/11/2025 8:52 PM EDT POCT GLUCOSE Routine 04/11/2025 5:52 PM EDT POCT GLUCOSE Routine 04/11/2025 4:50 PM EDT POCT GLUCOSE Routine 04/11/2025 3:10 PM EDT POCT GLUCOSE Routine 04/11/2025 8:44 AM EDT POCT GLUCOSE Routine 04/10/2025 9:06 PM EDT POCT GLUCOSE Routine 04/10/2025 4:32 PM EDT POCT GLUCOSE Routine 04/10/2025 11:41 AM EDT PHOSPHORUS Routine 04/10/2025 10:42 AM EDT MAGNESIUM Routine 04/10/2025 10:42 AM EDT CBC STAT 04/10/2025 10:42 AM EDT BASIC METABOLIC PANEL STAT 04/10/2025 10:42 AM EDT POCT GLUCOSE Routine 04/10/2025 8:33 AM EDT POCT GLUCOSE Routine 04/09/2025 8:51 PM EDT POCT GLUCOSE Routine 04/09/2025 4:40 PM EDT POCT GLUCOSE Routine 04/09/2025 12:56 PM EDT POCT GLUCOSE Routine 04/09/2025 10:46 AM EDT POCT GLUCOSE Routine 04/08/2025 8:58 PM EDT POCT GLUCOSE Routine 04/08/2025 5:16 PM EDT POCT GLUCOSE Routine 04/08/2025 11:24 AM EDT POCT GLUCOSE Routine 04/08/2025 7:26 AM EDT POCT GLUCOSE Routine 04/07/2025 8:25 PM EDT POCT GLUCOSE Routine 04/07/2025 4:21 PM EDT POCT GLUCOSE Routine 04/07/2025 11:30 AM EDT POCT GLUCOSE Routine 04/07/2025 7:33 AM EDT BASIC METABOLIC PANEL Routine 04/07/2025 6:27 AM EDT CBC AND DIFFERENTIAL Routine 04/07/2025 6:27 AM EDT POCT GLUCOSE Routine 04/06/2025 9:45 PM EDT POCT GLUCOSE Routine 04/06/2025 3:57 PM EDT POCT GLUCOSE Routine 04/06/2025 11:52 AM EDT US LOWER EXTREMITY VEINS DUPLEX COMPLETE (BILATERAL) Routine 04/06/2025 10:12 AM EDT Swelling, limb POCT GLUCOSE Routine 04/06/2025 8:04 AM EDT HEMOGLOBIN A1C Routine 04/06/2025 6:33 AM EDT PT-INR Routine 04/06/2025 6:33 AM EDT CBC AND DIFFERENTIAL Routine 04/06/2025 6:33 AM EDT COMPREHENSIVE METABOLIC PANEL Routine 04/06/2025 6:33 AM EDT POCT GLUCOSE Routine 04/05/2025 9:18 PM EDT HEPATITIS B SURFACE ANTIGEN STAT 04/05/2025 5:35 PM EDT ECG 12-LEAD STAT 04/05/2025 4:16 PM EDT XR CHEST PORTABLE Routine 04/05/2025 4:0 4 PM EDT CPK (CREATINE KINASE) STAT 04/05/2025 3:35 PM EDT MAGNESIUM STAT 04/05/2025 3:35 PM EDT LFTS (HEPATIC PANEL) STAT 04/05/2025 3:35 PM EDT BASIC METABOLIC PANEL STAT 04/05/2025 3:35 PM EDT CBC AND DIFFERENTIAL STAT 04/05/2025 3:35 PM EDT from Last 3 Months Results * (ABNORMAL) POCT Glucose (04/27/2025 1:51 PM EDT) Only the most recent of89 resultswithin the time period is included. [facility] Glucose, POCT 159(H) 70 - 100 mg/dL [facility] 04/27/2025 1:51 PM EDT 04/27/2025 1:57 PM EDT us Jennifer Chapin MD POINT OF CARE TEST ORDERABLE S Final Result [address] [address] * (ABNORMAL) CBC and differential (04/25/2025 8:04 AM EDT) Only the most recent of5 resultswithin the time period is included. WBC 8.88 4.00 - 11.00 K/uL [facility] RBC 3.27(L) 4.00 - 5.20 M/uL [facility] HGB 10.7(L) 12.0 - 16.0 g/dL [facility] HCT 32.0(L) 36.0 - 46.0 % [facility] PLT 185 150 - 450 K/uL [facility] MCV 97.9 80.0 - 100.0 fL [facility] MCH 32.7(H) 27.0 - 31.0 pg [facility] MCHC 33.4 32.0 - 36.0 g/dL [facility] RDW 13.4 11.5 - 14.5 % [facility] MPV 10.6 8.4 - 12.0 fL [facility] NRBC 0.00 0.00 /100 WBCs [facility] ABSOLUTE NRBC 0.00 0.00 K/uL [facility] DIFF METHOD Auto [facility] NEUTS 67.7 48.0 - 76.0 % [facility] LYMPHS 15.7(L) 18.0 - 41.0 % [facility] MONOS 10.5 4.0 - 11.0 % [facility] EOS 5.0 0.0 - 5.0 % [facility] BASOS 0.6 0.0 - 1.5 % [facility] Granulocytes, immature (%) 0.5 0.0 - 0.9 % [facility] ABSOLUTE NEUTS 6.03 1.92 - 7.60 K/uL [facility] ABSOLUTE LYMPHS 1.39 0.72 - 4.10 K/uL [facility] ABSOLUTE MONOS 0.93 0.16 - 1.10 K/uL [facility] ABSOLUTE EOS 0.44 0.00 - 0.50 K/uL [facility] ABSOLUTE BASOS 0.05 0.00 - 0.15 K/uL [facility] Granulocytes, immature 0.04 0.00 - 0.09 K/uL [facility] Blood 04/25/2025 8:04 AM EDT 04/25/2025 8:16 AM EDT us Chemo Esteban MD LAB BLOOD ORDERABLES Final Resul t [facility] [address] [place], [place] [id number] * (ABNORMAL) Basic metabolic panel (04/25/2025 8:04 AM EDT) Only the most recent of7 resultswithin the time period is included. SODIUM 133 133 - 146 mmol/L [facility] CHLORIDE 95(L) 96 - 108 mmol/L [facility] POTASSIUM 4.9 3.3 - 5.1 mmol/L [facility] CO2 23 21 - 35 mmol/L [facility] BUN 75(H) 6 - 19 mg/dL [facility] CREATININE 4.50(H) 0.5 - 1.5 mg/dL [facility] GLUCOSE 327(H) 70 - 99 mg/dL [facility] CALCIUM 9.0 8.4 - 10.3 mg/dL [facility] EGFR 10(L) >59 mL/min/1.7 3m2 [facility] Comment:Estimated glomerular filtration rate calculated using the CKD-EPI refit equation. ANION GAP 20 10 - 20 mmol/L [facility] Blood 04/25/2025 8:04 AM EDT 04/25/2025 8:16 AM EDT us Chemo Esteban MD LAB BLOOD ORDERABLES Final Resul t Performing Organization Address City/[facility] Co de Phone Number [address] [address] * Hepatitis B surface antigen (04/24/2025 11:00 AM EDT) Only the most recent of2 resultswithin the time period is included. HBV SURFACE ANTIGEN NON-REACTI VE NON-REACTI VE [facility] Blood 04/24/2025 11:0 0 AM EDT 04/25/2025 8:15 AM EDT us Chemo Esteban MD LAB BLOOD ORDERABLES Final Resul t [address] [address] * (ABNORMAL) CBC (04/23/2025 8:49 AM EDT) Only the most recent of4 resultswithin the time period is included. WBC 8.51 4.00 - 11.00 K/uL [facility] RBC 3.41(L) 4.00 - 5.20 M/uL [facility] HGB 11.1(L) 12.0 - 16.0 g/dL [facility] HCT 33.8(L) 36.0 - 46.0 % [facility] PLT 181 150 - 450 K/uL [facility] MCV 99.1 80.0 - 100.0 fL [facility] MCH 32.6(H) 27.0 - 31.0 pg [facility] MCHC 32.8 32.0 - 36.0 g/dL [facility] RDW 13.6 11.5 - 14.5 % [facility] MPV 10.3 8.4 - 12.0 [facility] NRBC 0.00 0.00 /100 WBCs [facility] ABSOLUTE NRBC 0.00 0.00 K/uL [facility] Blood 04/23/2025 8:49 AM EDT 04/23/2025 9:22 AM EDT us Maris Navarro MD LAB BLOOD ORDERABLES Final Resu lt Performing Organization Address City/State/[facility] Co de Phone Number [address] [address] * (ABNORMAL) Comprehensive metabolic panel (04/15/2025 6:01 AM EDT) Only the most recent of2 resultswithin the time period is included. SODIUM 139 133 - 146 mmol/L [facility] POTASSIUM 4.7 3.3 - 5.1 mmol/L [facility] CHLORIDE 101 96 - 108 mmol/L [facility] CO2 27 21 - 35 mmol/L [facility] BUN 50(H) 6 - 19 mg/dL [facility] CREATININE 3.50(H) 0.5 - 1.5 mg/dL [facility] GLUCOSE 130(H) 70 - 99 mg/dL [facility] ALBUMIN 3.6(L) 3.9 - 4.8 g/dL [facility] TOTAL PROTEIN 6.5 6.5 - 8.0 g/dL [facility] CALCIUM 9.1 8.4 - 10.3 mg/dL [facility] ALKALINE PHOSPHATASE 136(H) 39 - 117 U/L [facility] TOTAL BILIRUBIN 0.5 0.0 - 1.2 mg/dL [facility] AST 14 0 - 37 U/L [facility] ALT 9 0 - 40 U/L [facility] GLOBULIN 2.9 1 - 4.8 g/dL [facility] EGFR 14(L) >59 mL/min/1.7 3m2 [facility] Comment:Estimated glomerular filtration rate calculated using the CKD-EPI refit equation. ANION GAP 16 10 - 20 mmol/L [facility] Blood 04/15/2025 6:01 AM EDT 04/15/2025 6:41 AM EDT us Jessica Ribera DO, MPH LAB BLOOD ORDER [place] Final Result Performing Organization Address [facility] Co de Phone Number [address] [address] * Phosphorus (04/15/2025 6:01 AM EDT) Only the most recent of2 resultswithin the time period is included. PHOSPHORUS 3.9 2.7 - 4.5 mg/dL [facility] Blood 04/15/2025 6:01 AM EDT 04/15/2025 6:41 AM EDT us Jessica Ribera DO MPH LAB BLOOD ORDER [place] Final Result Performing Organization Address [facility] Co de Phone Number [address] [address] * Magnesium (04/15/2025 6:01 AM EDT) Only the most recent of3 resultswithin the time period is included. MAGNESIUM 2.1 1.6 - 2.6 mg/dL [facility] Blood 04/15/2025 6:01 AM EDT 04/15/2025 6:41 AM EDT us Jessica Ribera DO MPH LAB BLOOD ORDER [place] Final Result Performing Organization Address City/[facility] Co de Phone Number [address] [address] * (ABNORMAL) Urinalysis w/reflex Urine Culture (04/12/2025 2:45 PM EDT) COLOR Yellow Yellow [facility] CLARITY Clear [facility] GLUCOSE Negative Negative [facility] BILI Negative Negative [facility] KETONES Negative Negative [facility] SPECIFIC GRAVITY 1.015 1.005 - 1.030 [facility] BLOOD Negative Negative [facility] PH 6.0 5.0 - 8.0 [facility] Protein-UA 2+(A) Negative [facility] NITRITE Negative Negative [facility] Leukocyte esterase, ur Trace(A) Negative [facility] Urine (Urine) 04/12/2025 2:4 5 PM EDT 04/12/2025 2:53 PM EDT us Maris Navarro MD URINE ORDERABLES Final Result [address] [address] * (ABNORMAL) Urine Culture (04/12/2025 2:45 PM EDT) Special Requests None Reflexed from [id number] 04/12/2025 3:43 PM EDT [facility] Urine Culture 10,000 to 100,000 colony forming units per mL YEAST(A) 04/14/2025 8:32 AM EDT [facility] Urine 04/12/2025 2:45 PM EDT 04/12/2025 2:53 PM EDT us Maris Navarro MD MICROBIOLOGY - GENERAL ORDERABL ES Final Result [address] [address] * (ABNORMAL) Urine sediment (04/12/2025 2:45 PM EDT) WBC 11-20(A) NONE SEEN /hpf [facility] RBC 0-2(A) NONE SEEN /hpf [facility] URINE EPITHELIAL 0-4(A) NONE SEEN [facility] MUCUS NONE SEEN NONE SEEN /hpf [facility] BACTERIA Trace(A) NONE SEEN /hpf [facility] YEAST 1+(A) NONE SEEN /hpf [facility] 04/12/2025 2:45 PM EDT 04/12/2025 2:53 PM EDT us Maris Navarro MD URINE ORDERABLES Final Result [facility] [address] [place] [address] * US Lower Extremity Veins Duplex Complete (Bilateral) (04/06/2025 10:12 AM EDT) Anatomical Region Laterality Modality Ultrasound 04/06/2025 10:2 8 AM EDT Impressions 04/06/2025 10:31 AM EDT * No evidence of deep or superficial venous thrombosis in the visualized veins of the right lower extremity. * No evidence of deep or superficial venous thrombosis in the visualized veins of the left lower extremity. Narrative 04/06/2025 10:31 AM EDT US LOWER EXTREMITY VEINS DUPLEX COMPLETE (BILATERAL) Referring clinician's provided indication for this examination in Epic: Swelling of Limb; wheelchair bound, LE swelling and pain bilateraly TECHNIQUE: Lower extremity venous ultrasound with color and spectral Doppler. COMPARISON: None FINDINGS: Exam Quality: Technically difficult exam secondary to intolerance to compression by the patent demonstrates: Right lower extremity: Common femoral vein: Normal compressibility and flow characteristics. Femoral vein: Normal compressibility and flow characteristics. Proximal profunda femoral vein: Normal compressibility. Popliteal vein: Normal compressibility and flow characteristics. Posterior tibial veins: Not visualized Peroneal veins: Normal compressibility. Gastrocnemius: Normal compressibility. Great saphenous vein: Normal compressibility at the saphenofemoral junction. Left lower extremity: Common femoral vein: Normal compressibility and flow characteristics. Femoral vein: Normal compressibility and flow characteristics. Proximal profunda femoral vein: Normal compressibility. Popliteal vein: Normal compressibility and flow characteristics. Posterior tibial veins: Not visualized Peroneal veins: Normal compressibility. Gastrocnemius: Normal compressibility. Great saphenous vein: Normal compressibility at the saphenofemoral junction. Procedure Note Zulema Gardner MBBS - 04/06/2025 US LOWER EXTREMITY VEINS DUPLEX COMPLETE (BILATERAL) Referring clinician's provided indication for this examination in Epic:Swelling of Limb; wheelchair bound, LE swelling and pain bilateraly TECHNIQUE: Lower extremity venous ultrasound with color and spectralDoppler. COMPARISON: None FINDINGS: Exam Quality: Technically difficult exam secondary to intolerance tocompression by the patent demonstrates: Right lower extremity: Common femoral vein: Normal compressibility and flow characteristics. Femoral vein: Normal compressibility and flow characteristics. Proximal profunda femoral vein: Normal compressibility. Popliteal vein: Normal compressibility and flow characteristics. Posterior tibial veins: Not visualized Peroneal veins: Normal compressibility. Gastrocnemius: Normal compressibility. Great saphenous vein: Normal compressibility at the saphenofemoraljunction. Left lower extremity: Common femoral vein: Normal compressibility and flow characteristics. Femoral vein: Normal compressibility and flow characteristics. Proximal profunda femoral vein: Normal compressibility. Popliteal vein: Normal compressibility and flow characteristics. Posterior tibial veins: Not visualized Peroneal veins: Normal compressibility. Gastrocnemius: Normal compressibility. Great saphenous vein: Normal compressibility at the saphenofemoraljunction. IMPRESSION: * No evidence of deep or superficial venous thrombosis in the visualizedveins of the right lower extremity. * No evidence of deep or superficial venous thrombosis in the visualizedveins of the left lower extremity. us Joseph Green MD [facility] VASCULAR Final Result * PT-INR (04/06/2025 6:33 AM EDT) PT 12.0 10.2 - 12.9 sec [facility] INR 1.0 0.9 - 1.1 [facility] Comment:Therapeutic range fo r oral Vitamin K antagonists: 2.0-3.5 Blood 04/06/2025 6:33 AM EDT 04/06/2025 6:36 AM EDT us Joseph Green MD LAB BLOOD ORDERABLES Final Resu lt Performing Organization Address City/[facility]/ZIP Co de Phone Number [address] [address] * (ABNORMAL) Hemoglobin A1c (04/06/2025 6:33 AM EDT) HEMOGLOBIN A1C 7.0(H) 4.3 - 5.8 % [facility] Blood 04/06/2025 6:33 AM EDT 04/06/2025 6:37 AM EDT us Joseph Green MD LAB BLOOD ORDERABLES Final Resu lt Performing Organization Address [facility] Co de Phone Number [address] [address] * ECG 12-LEAD (04/05/2025 4:16 PM EDT) Ventricular Rate EKG/MIN 66 BPM [facility] Atrial Rate 66 BPM [facility] TX Interval 146 ms [facility] QRS Duration 100 ms [facility] QT Interval 420 ms [facility] QTC Interval 440 ms [facility] P [place] 73 degrees [facility] R Wave [place] -39 degrees [facility] T Wave [place] 52 degrees [facility] 04/05/2025 4:16 PM EDT 04/07/2025 3:30 PM EDT Narrative [facility] - 04/07/2025 3:30 PM EDT Normal sinus rhythm Left axis deviation Anterior infarct , age undetermined Abnormal ECG No previous ECGs available Confirmed by Ash COOLEY ([id number]) on 04/07/2025 3:30:20 PM us Donn Cohen MD ECG ORDERABLES Final Resu lt Performing Organization Address [facility] Co de Phone Number [email or web address] * XR Chest Portable (04/05/2025 4:04 PM EDT) Anatomical Region Laterality Modality Chest Computed Radiogr aphy 04/05/2025 4:58 PM EDT Impressions 04/05/2025 5:10 PM EDT Interstitial prominence likely due to fluid overload with vascular redistribution. ATTESTATION: Jason Valdes as teaching physician, have reviewed the images for this case and if necessary edited the report originally created by Huber Bynum. Narrative 04/05/2025 5:10 PM EDT XR CHEST PORTABLE Referring clinician's provided indication for this examination in [facility]: Dyspnea (Shortness of Breath) COMPARISON: None. FINDINGS: Devices/Tubes/Lines: None. Lungs: Mildly prominent interstitial thickening in the perihilar lungs and lung bases with mild vascular redistribution. No evidence of significant peripheral septal line thickening. Pleura: On this portable study there is no evidence of a large pleural effusion or pneumothorax. Heart/Mediastinum: Given the portable technique and presence of morbid obesity the heart size is likely within normal limits. Bones/Soft Tissues: No significant abnormality. Procedure Note Jason Rahman MD - 04/05/2025 XR CHEST PORTABLE Referring clinician's provided indication for this examination in [facility]:Dyspnea (Shortness of Breath) COMPARISON: None. FINDINGS: Devices/Tubes/Lines: None. Lungs: Mildly prominent interstitial thickening in the perihilar lungs andlung bases with mild vascular redistribution. No evidence of significantperipheral septal line thickening. Pleura: On this portable study there is no evidence of a large pleuraleffusion or pneumothorax. Heart/Mediastinum: Given the portable technique and presence of morbidobesity the heart size is likely within normal limits. Bones/Soft Tissues: No significant abnormality. IMPRESSION: Interstitial prominence likely due to fluid overload with vascularredistribution. ATTESTATION: Jason Valdes as teaching physician, have reviewed theimages for this case and if necessary edited the report originally createdby Huber Bynum. Donn Cohen MD IMG XR CHEST Final Resu lt * (ABNORMAL) LFTs (hepatic panel) (04/05/2025 3:35 PM EDT) [facility] PHOSPHATASE 148(H) 39 - 117 U/L [facility] TOTAL BILIRUBIN 0.5 0.0 - 1.2 mg/dL [facility] DIRECT BILIRUBIN 0.2 0.0 - 0.2 mg/dL [facility] Bilirubin (Indirect) 0.3 0 - 1.5 mg/dL [facility] AST 14 0 - 37 U/L [facility] ALT 10 0 - 40 U/L [facility] TOTAL PROTEIN 7.4 6.5 - 8.0 g/dL [facility] ALBUMIN 3.9 3.9 - 4.8 g/dL [facility] GLOBULIN 3.5 1 - 4.8 g/dL [facility] A/G Ratio 1.11 1.00 - 4.80 RATIO [facility] Blood 04/05/2025 3:35 PM EDT 04/05/2025 3:47 PM EDT Donn Cohen MD LAB BLOOD ORDERABLES Final Result [address] [address] * CPK (creatine kinase) (04/05/2025 3:35 PM EDT) Pathologist [facility] CREATINE KINASE 131 21 - 215 U/L [facility] Blood 04/05/2025 3:35 PM EDT 04/05/2025 3:47 PM EDT Donn Cohen MD LAB BLOOD ORDERABLES Final Result [address] [address] from Last 3 Months Insurance [facility] MEDICARE [place] [address] [place] [address] MEDICARE REPLACEMENT [place] [id number] MEDICARE PART A & B [facility] MEDICARE REPLACEMENT [facility] B [facility] MEDICARE REPLACEMENT [place] MEDICARE PART A & B MEDICARE REPLACEMENT [facility] MEDICARE PART A & B [facility] MEDICARE REPLACEMENT [facility] MEDICARE PART A & B [facility] MEDICARE REPLACEMENT [facility] MEDICARE PART A & B Advance Directives For more information, please contact: [phone] (9AM - 5PM [facility], Wednesday-Wednesday) Documents on File Type Date Recorded 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 Healthcare Proxy 05/02/2025 2:05 PM Healthcare Proxy 04/18/2025 9:29 AM health care proxy * Full Code (Latest Code Status on File) Date Activated Date Inactivated Comments 04/05/2025 8:51 PM Question Answer Comments Code Status Confirmed With: Patient Code Status Communicated To: Inpatient Attending Care Teams It Support Technician Relationship Specialty Start Date End Date Alexi Lynne MD [address] [place] [address] [place] [address] PCP - General Internal Medicine 04/05/25 Additional Source Comments The information contained in this document represents components of the legal health record. It is not the complete legal health record[facility]
--- OUTSIDE RECORDS SUMMARY | 2025-05-11 23:31 | XMS_ITS ---
Author Organization [facility] Care Team Providers Care Corridor Redevelopment Manager Name Role Phone Raji Samano Unavailable Unavailable Jazmyne, Raji Unavailable Unavailable Candy Sanchez Unavailable Unavailable Allergies and adverse reactions Code CodeSystem Substance Reaction Severity StartDate Concern Status 6809 RXNORM Metformin Unknown 10/09/2020 active 7152421 RXNORM Canagliflozin Unknown 10/09/2020 active Care Team Name Role Address Phone Organization Dates Raji Samano PCP [address], [place], [address], [place] (Office): : [facility] 10/09/2020 - 10/30/2020 Raji Samano [address], [place], [address], [place] (Office): : [facility] 10/09/2020 - 10/30/2020 Candy Sanchez [address], [place], [address], [place] (Office): [facility] 10/09/2020 - 10/30/2020 Immunizations Immunization Status Vaccine Details Vaccine Code CodeSystem Date Notes Influenza cancelled Influenza, split virus, trivalent, injectable, contains preservative 141 CVX created date: 10/09/2020 consent date: 10/18/2020 had this season TB 1 Step Mantoux (PPD) completed tuberculin skin test; unspecified formulation lotNumber: [id number] expiry: 06/30/2018 Mfg: PAR PHAMACEUT[employer] Given 0.1 ml Right Forearm intradermally 98 CVX created date: 03/13/2017 consent date: 03/13/2017 administer ed date: 03/13/2017 Educated by annette on 03/13/2017 Administered by: elizabeth TB 2 Step Mantoux Skin Test completed tuberculin skin test; unspecified formulation lotNumber: [id number] expiry: 09/30/2021 Mfg: PAR pharmaceical Given Left Forearm Step 1 of Multi-step with next step required 98 CVX created date: 10/18/2020 consent date: 10/18/2020 administer ed date: 10/11/2020 PCV13 (Pneumococcal Conjugate)Vaccin e cancelled pneumococcal conjugate vaccine, 13 valent 133 CVX created date: 10/09/2020 consent date: 10/18/2020 education provided Mental Status Section Date Assessment Total Score Description 10/30/2020 BIMS 15 cognitively int act CAM 0 No delirium ind icated PHQ-9 00 10/15/2020 BIMS 15 cognitively int act CAM 0 No delirium ind icated PHQ-9 00 Problems Problem # Description Date of onset Resolved Date Code CodeSystem Concern Status 1 CHRONIC KIDNEY DISEASE, UNSPECIFIED 10/09/[address] active 2 DIARRHEA, UNSPECIFIED 10/09/[address] active 3 DIFFICULTY IN WALKING, NOT ELSEWHERE CLASSIFIED 10/09/[address] active 4 DUODENITIS WITHOUT BLEEDING 10/09/[address] active 5 DYSPHAGIA, OROPHARYNGEAL PHASE 10/09/[address] active 6 GASTRITIS, UNSPECIFIED, WITHOUT BLEEDING 10/09/[address] active 7 IRRITABLE BOWEL SYNDROME, UNSPECIFIED 10/09/[address] active 8 MUSCLE WASTING AND ATROPHY, NOT ELSEWHERE CLASSIFIED, LEFT LOWER LEG 10/09/[address] active 9 MUSCLE WASTING AND ATROPHY, NOT ELSEWHERE CLASSIFIED, RIGHT LOWER LEG 10/09/[address] active 10 MUSCLE WASTING AND ATROPHY, NOT ELSEWHERE CLASSIFIED, UNSPECIFIED THIGH 10/09/[address] active 11 NAUSEA WITH VOMITING, UNSPECIFIED 10/09/[address] active 12 OTHER REDUCED MOBILITY 10/09/[address] active 13 UNSPECIFIED URINARY INCONTINENCE 10/09/[address] active 14 ESSENTIAL (PRIMARY) HYPERTENSION 03/12/[address] active 15 HISTORY OF FALLING 03/12/[address] active 16 HYPERLIPIDEMIA, UNSPECIFIED 03/12/[address] active 17 MORBID (SEVERE) OBESITY DUE TO EXCESS CALORIES 03/12/[address] active 18 MUSCLE WEAKNESS (GENERALIZED) 03/12/[address] active 19 OTHER ABNORMALITIES OF GAIT AND MOBILITY 03/12/20 17 10/18/[address] completed 20 PAIN IN RIGHT KNEE 03/12/20 [address] active 21 TYPE 2 DIABETES MELLITUS WITH DIABETIC NEUROPATHY, UNSPECIFIED 03/12/[address] active 22 URINARY TRACT INFECTION, SITE NOT SPECIFIED 03/12/20 17 10/18/[address] completed Reason for Referral No Reasons for Referral Entered Social History Social History Observation Description Start Date End Date Code Code System Current Smoking Status Tobacco smoking consumption unknown 710430840 SNOMED CT Sex Assigned At Female 1960 43329-5 [facility] Gender Identity Sexual Orientation Vital Signs Code Code System Vitals Name Values and Units Timing Information 9279-1 [facility] Respiratory Rate Value=18.0 Units=/m in 10/30/2020 8310-5 [facility] Body Temperature Value=96.7 Units= F 10/30/2020 61713-2 [facility] O2 % BldC Oximetry Value=94.0 Units= % 10/30/2020 2339-0 [facility] Blood Sugar Slsrh=028.0 Units=mg/dL 10/30/2020 46051-9 [facility] Pain Level Value=0.0 10/30/2020 8462-4 [facility] Blood Pressure-Diastolic Value=68 Un its=mmHg 10/30/2020 8480-6 [facility] Blood Pressure-Systolic Svalt=135 Un its=mmHg 10/30/2020 8867-4 [facility] Heart rate Value=80.0 Units=/min 10/2020 04427-9 [facility] Weight Ycvbs=291.8 Units=Lbs 8302-2 [facility] Height Value=66.0 Units=Inches 03/13/2017
--- OUTSIDE RECORDS SUMMARY | 2025-05-11 23:31 | XMS_ITS | Encounter Summary ---
Author Organization [facility] Address [address] [place] [address] Care Team Providers Care Sheet Metal Shop Helper Name Role Phone Terry Ochoa MD Primary Care Provider [phone] Encounter Details Date Type Department Care Team ([facility] st Contact Info) Description 11/17/2021 Orders Only [facility] SOUND [address] [facility] [address] [place] [address] Lois Carreno MD [address] [place] [address] Social History Tobacco Use Types Packs/Day Years Used Date Smoking Tobacco: Former Cigarettes Q uit: 09/30/2008 Smokeless Tobacco: Never Comments No Sex and Gender Information Value Date Recorded Sex Assigned at Not on file Legal Sex Female 1:59 PM EST Gender Identity Not on file Sexual Orientation Not on file documented as of this encounter Miscellaneous Notes * Result Encounter Note - Lois Carreno MD - 11/17/2021 4:35 PM EDT Pap smear is normal. Has a history of abnormal Pap smear in the recent past. Report is not available. Repeat Pap in 3 years. * Result Encounter Note - Ly Martin, BIPIN - 11/17/2021 4:35 PM EDT Problem list updated. Pap letter sent. documented in this encounter Plan of Treatment Not on file documented as of this encounter Procedures * Due to [facility] law, this organization might not be sharing negative HIV tests. Procedure Name Priority Date/Time Associated Diagnosis Comments THINPREP TIS PAP AND HPV RNA, HR E6/E7, TMA Routine 11/17/2021 4:35 PM EDT Screening for malignant neoplasm of cervix documented in this encounter Results * Due to [facility] law, this organization might not be sharing negative HIV tests. * THINPREP TIS PAP AND HPV RNA, HR E6/E7, TMA (11/17/2021 4:35 PM EDT) Clinical information Postmenopausal [facility] Date last menstrual period POSTMENOPAUSAL [facility] Date of previous PAP smear NONE GIVEN [facility] Date of previous biopsy NONE GIVEN [facility] Specimen source (Cvx/Vag) None given [facility] Statement of Adequacy (Cvx/Vag) Satisfactory for evaluation. Endocervical/correia sformation zone component present. [facility] Cytology, Pap Smear Negative for intraepithelial lesion or malignancy. [email or web address] Cytology study comment (Cvx/Vag) This Pap test has been evaluated with computer assisted technology. [email or web address] Roller Cleaner (Cvx/Vag) [address](ASCP) CT screening location: [place] [address] [employer] COMMENT SEE NOTE [email or web address] Comment: EXPLANATORY NOTE: The Pap is a screening test for cervical cancer. It is not a diagnostic test and is subject to false negative and false positive results. It is most reliable when a satisfactory sample, regularly obtained, is submitted with relevant clinical findings and history, and when the Pap result is evaluated along with historic and current clinical information. HPV MRNA E6/E7 Not Detected Not Detected [email or web address] Comment: Methodology: Technical Engineer-Mediated Amplification This assay detects E6/E7 viral messenger RNA (mRNA) from 14 high-risk HPV types (16,18,31,33,35,39,45,51,52,56,58,59,66,68). The analytical performance characteristics of this assay have been determined by [employer]. The modifications have not been cleared or approved by the FDA. This assay has been validated pursuant to the CLIA regulations and is used for clinical purposes. For additional information, please refer to http://education.Solicore/faq/LZQ625e5 (This link if provided for information/ educational purposes only.) 11/17/2021 4:35 PM EDT 11/17/2021 9:57 PM EDT Narrative Resulting Agency Comment [id number] us Lois Carreno MD PATHOLOGY-INTERFACED Final Resul t Performing Organization Address City/State/[place] de Phone Number [facility] [address] [place] [address] documented in this encounter Visit Diagnoses Diagnosis Screening for malignant neoplasm of cervix Screening for malignant neoplasm of the cervix documented in this encounter Care Teams Sheet Metal Shop Helper Relationship Specialty Start Date End Date Terry Ochoa MD [facility] [address] [place] [address] PCP - General Internal Medicine 09/30/21 documented as of this encounter
--- OUTSIDE RECORDS SUMMARY | 2025-05-11 23:31 | XMS_ITS | Clinical Summary ---
Author Organization [facility] Address [address] [facility] [address] [place] [address] Phone Care Team Providers Care Web Application Tester Name Role Phone Terry Ochoa MD Primary Care Provider [phone] Allergies Active Allergy Reactions Criticality Noted Date Comments Canagliflozin Other (see comments) High 11/27/2019 Metformin 10/09/2020 Medications Acetaminophen 500 MG capsule 325 mg every 6 (six) hours if needed 01/14/20 21 Active amLODIPine (NORVASC) 5 MG tablet 10 mg 1 (one) time each day 01/24/20 21 Active Cholecalciferol (Thera-D 4000) 100 MCG (4000 UT) tablet Take 1 tablet by mouth 1 (one) time each day Active nystatin (MYCOSTATIN) powder 1 APPL TOPICAL 4 TIMES A DAY APPLY TO FOLDS OF SKIN TO PREVENT MOISTURE 01/20/20 21 Active omeprazole (PriLOSEC) [address] capsule Take 2 capsules by mouth 2 (two) times a day Active rOPINIRole (REQUIP) 0.5 MG tablet Take 0.25 mg by mouth at bed time at bedtime 12/17/19 21 Active insulin lispro (HumaLOG) 100 UNIT/ML injection Inject under the skin 3 (three) times a day before meals Active Insulin Glargine, 1 Unit Dial, (Tacho SoloSterinn) 300 UNIT/ML solution pen-injector Inject under the skin Active gabapentin (NEURONTIN) 100 MG capsule Take 200 mg by mouth 3 (three) times a day Active Multiple Vitamins-Minerals (multivitamin with minerals) tablet Take 1 tablet by mouth 1 (one) time each day Active Ascorbic Acid (vitamin C) 250 MG tablet Take 500 mg by mouth 1 (one) time each day Active ferrous sulfate 325 (65 Fe) MG tablet Take 325 mg by mouth 1 (one) time each day with breakfast Active ciprofloxacin (CIPRO) 250 MG tablet Take 250 mg by mouth in the morning and 250 mg in the evening. Active cyclobenzaprine (FLEXERIL) 5 MG tablet Take 5 mg by mouth 3 (three) times a day if needed for muscle spasms Active Dapagliflozin Propanediol (Farxiga) 10 MG tablet Take by mouth Active Sodium Zirconium Cyclosilicate (Lokelma) 10 g pack Take by mouth Active torsemide (DEMADEX) 20 MG tablet Take 20 mg by mouth 1 (one) time each day Active Epogen 2000 UNIT/ML injectionIndicati ons:Anemia in chronic kidney disease INJECT 1 ML UNDER THE SKIN EVERY 14 DAYS 10 mL 3 01/19/20 22 Active oxybutynin XL (DITROPAN-XL) 5 MG 24 hr tablet Take 15 mg by mouth 02/12/20 22 Active ondansetron ODT (ZOFRAN-ODT) 4 MG dispersible tablet 02/10/20 22 Active nitrofurantoin, macrocrystal-mono hydrate, (MACROBID) 100 MG capsule 03/02/20 22 Active Trulicity 1.5 MG/0.5ML solution pen-injector 02/15/20 22 Active docusate sodium (COLACE) 100 MG capsule Take 100 mg by mouth 02/12/20 22 Active Ozempic, 1 MG/DOSE, 4 MG/3ML solution pen-injector 07/16/20 23 Active bumetanide (BUMEX) 2 MG tablet Take 2 mg by mouth in the morning and 2 mg in the evening. Active hydrALAZINE 25 MG tablet Take 25 mg by mouth in the morning and 25 mg in the evening and 25 mg before bedtime. Active bisacodyl (FLEET) 10 MG/30ML enema Insert 10 mg into the rectum 1 (one) time Active Glucagon 3 MG/DOSE powder Administer 1 mg into affected nostril(s) Active dextrose (GLUTOSE) 40 % gel Take 15 g by mouth if needed for low blood sugar Active polyethylene glycol (GLYCOLAX) 17 g packet Take 17 g by mouth 1 (one) time each day Active senna (SENOKOT) 8.6 MG tablet Take 1 tablet by mouth 1 (one) time each day Active pantoprazole (PROTONIX) 20 MG EC tablet Take 20 mg by mouth 1 (one) time each day before breakfast Do not crush, chew, or split. Active albuterol (5 MG/ML) 0.5% nebulizer solution Take 2.5 mg by nebulization every 6 (six) hours if needed for wheezing Active Active Problems Problem Noted Date Diagnosed Date Severe obesity 03/25/2022 Stage 3b chronic kidney disease 03/25/2022 Patient encounter status 11/25/2021 Overview (03/25/2022): 11/18 pap neg, hpv neg, next pap 3 years, hx abnormal paps Lumbago 09/08/2021 Obesity associated disorder 09/08/2021 Hypertension 09/08/2021 Sleep apnea 02/05/2021 Calcium deficiency 02/05/2021 Chronic kidney disease stage 2 02/05/2021 Acute nontraumatic kidney injury 02/05/2021 Diabetes mellitus 02/05/2021 Bursitis 02/05/2021 Hypertensive heart and renal disease with (congestive) heart failure 02/05/2021 Lumbar spondylosis 02/05/2021 Neuropathy 02/05/2021 Renal disorder due to type 2 diabetes mellitus 0 02/05/2021 Sciatica 02/05/2021 Duodenitis without bleeding 10/09/2020 Dysphagia, oropharyngeal phase 10/09/2020 Irritable bowel syndrome 10/09/2020 Overview (05/30/2024): Replacing diagnoses that were inactivated after the 05/30/24 Regulatory Import Urinary incontinence 10/09/2020 Essential hypertension 03/12/2017 Hyperlipidemia 03/12/2017 History of falling 03/12/2017 Type 2 diabetes mellitus with diabetic neuropath y 03/12/2017 Encounters Date Type Department Care Team Description 05/11/2025 Treatment [facility], [address] [place] [address] Benita Garrison FNP-C End stage renal disease; Dependence on renal dialysis from Last 3 Months Immunizations Immunization Administration Dates Next Due Influenza, Quadrivalent, Preservative Free 06/28 Influenza, Quadrivalent, With Preservative 09/10 Family History Medical History Relation Comments Autosomal Dominant Polycystic Kidney Disease Fat her Cancer Father pancreas; lymph nodes Diabetes Father Hypertension Father Kidney disease Father Cancer Mother breast Dementia Mother Diabetes Mother Heart disease Mother angina Hypertension Mother Kidney disease Sibling 1 brother Diabetes Sibling 2 brothers, 2 sist ers Hypertension Sibling 3 brother and sist ers Autosomal Dominant Polycystic Kidney Disease Sib ling 4 brother on dialysis Relation Status Comments Father Mother Alive Sibling 1 Sibling 2 Sibling 3 Sibling 4 Social History Tobacco Use Types Packs/Day Years Used Date Smoking Tobacco: Former Cigarettes Q uit: 08/30/2001 Smokeless Tobacco: Never Tobacco Cessation:Counseling Given: Not Answered Alcohol Use Standard Drinks/Week Comments No 0 (1 standard drink = 0.6 oz pur e alcohol) Comments Unknown Sex and Gender Information Value Date Recorded Sex Assigned at Not on file Legal Sex Female 4:48 PM EST Gender Identity Not on file Sexual Orientation Not on file Last Filed Vital Signs Vital Sign Reading Time Taken Comments Blood Pressure 168/80 07/21/2023 10:59 AM EST Pulse 70 07/21/2023 10:59 AM EST Temperature 36.3 C (97.3 F) 07/21/2023 10:59 AM EST Respiratory Rate 16 09/08/2021 1:59 PM EST Oxygen Saturation 99% 07/21/2023 10:59 AM EST Inhaled Oxygen Concentration - - Weight 147 kg (325 lb) 07/21/2023 10:59 AM EST Height 167.6 cm (5' 6 ) 07/21/2023 10:59 AM EST Body Mass Index 52.46 07/21/2023 10:59 AM EST Plan of Treatment Health Maintenance Due Date Last Done Comments Breast Cancer Screening 1960 Pneumococcal Vaccine: 50+ Ye ars (1 of 2 - PCV) 1977 Hepatitis B Vaccine (1 of 5 - Risk Dialysis 4-dose series) 1978 Colorectal Cancer Screening: Annual FOBT 2007 Colorectal Cancer Screening: Colonoscopy 2007 Colorectal Cancer Screening: Sigmoidoscopy 2007 Diabetes: Ophthalmology Exam 09/29/2020 Diabetes: Pedal Pulse Checked 09/29/2020 Diabetes: Sensory Foot Exam 09/29/2020 Diabetes: Visual Foot Exam 09/29/2020 Diabetes: Hemoglobin A1C 05/07/2022 022, 01/07/2022, 08/21/2020, Additional history exists Influenza Vaccine (#1) 2025 2, 06/28/2020, 09/10/2016 Procedures Procedure Name Priority Date/Time Associated Diagnosis Comments HEMOGLOBIN A1C Routine 02/04/2022 11:45 AM EDT from Last 3 Months or Most Recently Relevant to Health Maintenance Results * (ABNORMAL) Hemoglobin A1c (02/04/2022 11:45 AM EDT) Hemoglobin A1C 10.2(H) (4.0-5.6) % [facility] Comment: MONITORING: In known diabetic patients, hemoglobin A1c targets should be discussed with health care provider. DIAGNOSTIC USE: The [place] Diabetes Association (ADA) and the World Health Organization (WHO) recommend the use of HbA1c to diagnose diabetes using a threshold of 6.5%. Patients who have an HbA1c between 5.7% and 6.4% are considered at increased risk for developing diabetes in the future. CAUTION: Falsely low HbA1c results may be observed in patients with hemolytic anemia, homozygous forms of abnormal hemoglobin (e.g. SS, CC, SC), , recent blood loss or hemoglobin F greater than 7%. Fructosamine may be used as an alternate test in these cases. REFERENCE: ADA: Standards of Medical Care in Diabetes 2020, The Journal of Clinical and Applied Research and Education Volume 43, Supplement 1 Testing performed or reported by [facility], a Service of [facility], [address] [place] [address] Jaquelin Grayson MD, Java Web Services Developer [facility]# [id number] 02/04/2022 11:4 5 AM EDT 02/04/2022 6:50 PM EDT us Tony Dejesus MD LAB BLOOD ORDERABLES Final Re sult [facility] from Last 3 Months or Most Recently Relevant to Health Maintenance Insurance [place] [facility] Medicare Care Teams Web Application Tester Relationship Specialty Start Date End Date Terry Ochoa MD [address] [place] PCP - General Internal Medicine 07/21/23
--- OUTSIDE RECORDS SUMMARY | 2025-05-11 23:31 | XMS_ITS | Encounter Summary ---
Author Organization [facility] Address [address] [place] [address] Phone Care Team Providers Care Roller Man Name Role Phone Terry Ochoa MD Primary Care Provider [phone] Encounter Details Date Type Department Care Team (Late st Contact Info) Description 02/05/2021 Documentation Only [facility] [address] [place] [id number] Tawny Churchill [place] Social History Tobacco Use Types Packs/Day Years Used Date Smoking Tobacco: Former Cigarettes Q uit: 08/30/2001 Alcohol Use Standard Drinks/Week Comments No 0 (1 standard drink = 0.6 oz pur e alcohol) Comments Unknown Sex and Gender Information Value Date Recorded Sex Assigned at Not on file Legal Sex Female 4:48 PM EST Gender Identity Not on file Sexual Orientation Not on file documented as of this encounter Plan of Treatment Pending Results Name Type Priority Associated Diagnoses Date /Time CBC (Includes Diff/Plt) (External Lab) Ext Result Console Routine 08/21/2020 Iron Panel Lab Routine 08/21/2020 documented as of this encounter Procedures Procedure Name Priority Date/Time Associated Diagnosis Comments LIPID PANEL (EXTERNAL LAB ENTRY) Routine 08/21/2020 RENAL FUNCTION PANEL (EXTERNAL LAB ENTRY) Routine 08/21/2020 documented in this encounter Results * Lipid Panel (08/21/2020) Cholesterol, Total 437 Triglycerides 330 HDL 56 mg/dL LDL-Calculated 315 Non HDL Cholesterol 381 Blood specimen (specimen) 08/21/2020 us Historical Provider LAB BLOOD ORDERABLES Alyssa l Result * Renal Function Panel (External Lab) (08/21/2020) Glucose 204 mg/dL BUN 36 mg/dL eGFR Non-Afr Belgian 30 eGFR 35 Sodium 141 mEq/L Potassium 4.5 mEq/L Chloride 111 Carbon Dioxide 18 mmol/L Calcium 8.5 mg/dL Phosphorus, Serum 4.4 mg/dL Albumin (Blood) 2.1 g/dL Creatinine 1.8 mg/dL Anion Gap 12 Blood specimen (specimen) 08/21/2020 Historical Provider LAB BLOOD ORDERABLES Alyssa l Result documented in this encounter Visit Diagnoses Not on filedocumented in this encounter Care Teams Roller Man Relationship Specialty Start Date End Date Terry Ochoa MD [address] [place], [place] PCP - General Internal Medicine 07/21/23 documented as of this encounter
--- OUTSIDE RECORDS SUMMARY | 2025-05-11 23:31 | XMS_ITS | Clinical Summary ---
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 Phone Terry Ochoa MD Primary Care Provider Allergies No known active allergies Medications amLODIPine Besylate (NORVASC) 5 MG tablet Take 5 mg by mouth 1 (one) time each day 10/23/19 22 Active Cyclobenzaprine HCl (FLEXERIL) 5 MG tablet Take 5 mg by mouth if needed 10/11/19 22 Active Farxiga 10 MG Tab 1 tablet 1 (one) time each day 10/16/19 22 Active Trulicity 1.5 MG/0.5ML Solution Pen-injector INJECT 0.5ML SUBCUTANEOUSLY ONCE A WEEK 04/03/20 21 Active Gabapentin (NEURONTIN) 100 MG capsule Take 200 mg by mouth every night 10/21/19 22 Active HumaLOG 100 UNIT/ML injection 10/21/19 22 Active HUMULIN R 500 UNIT/ML CONCENTRATED injection PLEASE SEE ATTACHED FOR DETAILED DIRECTIONS 05/08/20 21 Active Omeprazole (PriLOSEC) [address] capsule Take 40 mg by mouth 1 (one) time each day 10/06/19 22 Active Spironolactone (ALDACTONE) 25 MG tablet Take 50 mg by mouth 1 (one) time each day 09/12/19 22 Active Torsemide (DEMADEX) 20 MG tablet Take 20 mg by mouth 1 (one) time each day 10/06/19 22 Active Multiple Vitamins-Minerals (Multi-Vitamin/Mi nerals) tablet Take 1 tablet by mouth Active Insulin Glargine, 1 Unit Dial, (Tacho SoloStar) 300 UNIT/ML Solution Pen-injector Inject under the skin Active acetaminophen (TYLENOL) 325 MG tablet TAKE 2 TABLETS BY MOUTH EVERY 6 HOURS NEEDED FOR PAIN 01/14/20 21 Active Ascorbic Acid (VITAMIN C) 500 MG tablet Take 500 mg by mouth 1 (one) time each day Active epoetin silverio (PROCRIT/EPOGEN) 71719 UNIT/ML injection Inject 20,000 Units under the skin 1 (one) time Active Ferrous Sulfate 325 (65 Fe) MG tablet Take 325 mg by mouth 1 (one) time each day with breakfast Active ROPINIROLE HYDROCHLORIDE (REQUIP) 0.25 MG tablet Take 0.25 mg by mouth every night Active ondansetron (ZOFRAN) 4 MG tablet Take 4 mg by mouth every 8 (eight) hours if needed for nausea or vomiting Active Active Problems Problem Noted Date Diagnosed Date Pap smear for cervical cancer screening 11/26/19 Overview (11/25/2021): 11/18 pap neg, hpv neg, next pap 3 years, hx abnormal paps Immunizations Immunization Administration Dates Next Due COVID-19, mRNA (Pfizer Pre F all 2022) Monovalent, 30 mcg/0.3 ml 08/13/2021 Covid-19, Vector-nr (Watchfinder), 0.5 Ml 01/29/2021 Covid-19, mRNA (Pfizer Pre F all 2022) Bivalent, 30 mcg/0.3 ml rachel-sucrose (12+) dose 05/26/2022 Influenza,injectable,quad,Prsrv Fr 07/21/2022, Influenza,injectable,quad,preservative 7 Social History Tobacco Use Types Packs/Day Years Used Date Smoking Tobacco: Former Cigarettes Q uit: 09/30/2008 Smokeless Tobacco: Never Intimate Partner Violence Answer Date R ecorded Fear of Current or Ex-Partner Not on file Emotionally Abused Not on file 04/22/2023 Physically Abused Not on file 04/22/2023 Sexually Abused Not on file 04/22/2023 Feel Safe at Home Not on file 04/22/2023 Comments No Sex and Gender Information Value Date Recorded Sex Assigned at Not on file Legal Sex Female 1:59 PM EST Gender Identity Not on file Sexual Orientation Not on file Last Filed Vital Signs Vital Sign Reading Time Taken Comments Blood Pressure 124/60 10/31/2021 2:20 PM EST Pulse 62 10/31/2021 2:20 PM EST Temperature - - Respiratory Rate - - Oxygen Saturation 98% 10/31/2021 2:00 PM EST on room air Inhaled Oxygen Concentration - - Weight 162 kg (358 lb) 11/17/2021 11:31 AM EDT Height 167.6 cm (5' 6 ) 11/17/2021 11:31 AM EDT Body Mass Index 57.78 11/17/2021 11:31 AM EDT Plan of Treatment Health Maintenance Due Date Last Done Comments Hepatitis C Screening 1960 DTaP/Tdap/Td (1 - Tdap) 1976 Mammogram/Breast Imaging 1998 Colon Cancer Screening 2003 Pneumococcal 50+ years (1 of 1 - PCV) 2008 Zoster (Shingrix) (1 of 2) 2008 RSV (1 - Risk 60-74 years 1-dose series) 2018 Bone Density 2023 COVID-19 Vaccine (4 - 2024-2 6 season) 2025 05/26/2022, 08/13/2021, 01/29/2021 Influenza (#1) 2025 07/21/2022, 06/28/2020, 09/10/2016 Pap Smear Discontinued 11/17/2021 HPV Vaccine (No Doses Required) Completed Hep A Aged Out No longer eligi ble based on patient's age to complete this topic Hep B Aged Out No longer eligi ble based on patient's age to complete this topic Hib Aged Out No longer eligi ble based on patient's age to complete this topic Meningococcal ACWY Aged Out No longer eligible based on patient's age to complete this topic Zoster (Zostavax) Discontinued Procedures * Due to [employer] law, this organization might not be sharing negative HIV tests. Procedure Name Priority Date/Time Associated Diagnosis Comments THINPREP TIS PAP AND HPV RNA, HR E6/E7, TMA Routine 11/17/2021 4:35 PM EDT Screening for malignant neoplasm of cervix from Last 3 Months or Most Recently Relevant to Health Maintenance Results * Due to [place] state law, this organization might not be sharing negative HIV tests. * THINPREP TIS PAP AND HPV RNA, HR E6/E7, TMA (11/17/2021 4:35 PM EDT) Clinical information Postmenopausal [facility] Date last menstrual period POSTMENOPAUSAL [facility] Date of previous PAP smear NONE GIVEN [facility] Date of previous biopsy NONE GIVEN [facility] Specimen source (Cvx/Vag) None given [facility] Statement of Adequacy (Cvx/Vag) Satisfactory for evaluation. Endocervical/correia sformation zone component present. [facility] Cytology, Pap Smear Negative for intraepithelial lesion or malignancy. [facility] Cytology study comment (Cvx/Vag) This Pap test has been evaluated with computer assisted technology. [facility] Splunk Developer (Cvx/Vag) [address](ASCP) CT screening location: [place] [address] [facility] COMMENT SEE NOTE [facility] Comment: EXPLANATORY NOTE: The Pap is a [...] HPV MRNA E6/E7 Not Detected Not Detected [facility] Comment: Methodology: Auto Air Conditioning Installer-Mediated Amplification This assay detects E6/E7 viral messenger RNA (mRNA) from 14 high-risk HPV types (16,18,31,33,35,39,45,51,52,56,58,59,66,68). The analytical performance characteristics of this assay have been determined by [email or web address]. The modifications have not been cleared or approved by the FDA. This assay has been validated pursuant to the CLIA regulations and is used for clinical purposes. 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
--- OUTSIDE RECORDS SUMMARY | 2025-05-11 23:31 | XMS_ITS ---
Author Organization [facility] Care Team Providers Care Pals Nurse Name Role Phone Clifton Barry Unavailable Unavailable Allergies and adverse reactions Code CodeSystem Substance Reaction Severity StartDate Concern Status 6809 RXNORM metFORMIN Unknown 07/15/2022 active 1075206 RXNORM Canagliflozin Moderate 07/15/2022 active Care Team Name Role Address Phone Organization Dates Clifton Barry PCP [address], [place], [address], [place] (Office): : [facility] 07/15/2022 - 03/13/2023 Goals Section Goals Description Status Target Date Isabel will maintain adequate n utritional status as evidenced by maintaining weight, no s/sx of malnutrition, and consuming at least 70% of meals daily through review date. Active 04/22/20 23 Leisure interests will be pr ovided and quality of life will be maintained through this quarter. E va's goal is to continue regaining her mobility and ability to participate more regularly in group activities. She has been making great progress. Active 04/22/2023 Resident will be provided wi th necessary daily care and services, familiar routines and preferences. Active 04/22/2023 Resident will not exhibit s/ s of COVID-19 through next care plan review. Active 04/22/2023 Resident's advanced directiv es are in effect and her wishes and directions will be carried out in accordance with her advanced directives on an ongoing basis through the next review date. Active 04/22/2023 The resident will be free fr om any s/sx of hyperglycemia through the review date. Active 04/22/2023 The resident will be free fr om any s/sx of hypoglycemia through the review date. Active 04/22/2023 The resident will be free from infection through the review date. Active 04/22/2023 The resident will be free of falls through the r eview date. Active 04/22/2023 The resident will be free of minor injury throug h the review date. Active 04/22/2023 The resident will have a nor mal bowel movement at least every day through the review date. Active 04/22/2023 The resident will have no co mplications related to diabetes through the review date. Active 04/22/2023 The resident will have no s/ sx of complications r/t fluid deficit through the review date. Active 04/22/2023 The resident will maintain c urrent level of function through the review date. Active 04/22/2023 The resident will maintain o r develop clean and intact skin by the review date. Active 04/22/2023 The resident will not have a n interruption in normal activities due to pain through the review date. Active 04/22/2023 The resident will not have d iscomfort related to side effects of analgesia through the review date. Active 04/22/2023 The resident will remain josh e from s/sx of hypertension through the review date. Active 04/22/2023 The resident will remain josh e from skin breakdown due to incontinence and brief use through the review date. Active The resident will remain josh e of complications related to hypertension through review date. Active 04/22/2023 The resident will remain josh e of s/sx or complications related to anemia through review date. Active 04/22/2023 The resident's will have no complications r/t through the review date. Active 04/22/2023 Medications Section Medication Name Status Code CodeSystem Dose Route Frequency Admin Type Sig Text Start Date End Date Indication Senna Tablet 8.6 MG active 83890 5 RXNORM 2 table t Oral at bedtime Routin e Give 2 table t by mouth at bedti me for const ipati on 2021 - constipatio n Mental Status Section Date Assessment Total Score Description 03/13/2023 BIMS 15 cognitively int act CAM 0 No delirium ind icated PHQ-9 00 01/28/2023 BIMS 15 cognitively int act CAM 0 No delirium ind icated PHQ-9 00 Plan of Treatment Section Interventions Intervention Code Code System Display Name Proposed D ate Problems Problem # Description Date of onset Resolved Date Code CodeSystem Concern Status 1 ACUTE KIDNEY FAILURE, UNSPECIFIED 11/26/[address] active 2 PERSONAL HISTORY OF COVID-19 11/26/[address] active 3 ACUTE RESPIRATORY FAILURE WITH HYPOXIA 11/25/[address] active 4 COVID-19 11/25/2022 12/28/[address] compl eted 5 CHRONIC DIASTOLIC (CONGESTIVE) HEART FAILURE 10/18/[address] active 6 WEAKNESS 10/18/[address] active 7 CONSTIPATION, UNSPECIFIED 07/28/[address] active 8 DIFFICULTY IN WALKING, NOT ELSEWHERE CLASSIFIED 07/28/[address] active 9 OTHER CHRONIC PAIN 07/28/[address] active 10 OTHER MALAISE 07/28/[address] act eileen 11 ANEMIA, UNSPECIFIED 07/15/[address] active 12 BLADDER-NECK OBSTRUCTION 07/15/[address] active 13 CHRONIC KIDNEY DISEASE, STAGE 4 (SEVERE) 07/15/[address] active 14 DIABETES MELLITUS DUE TO UNDERLYING CONDITION WITH DIABETIC NEUROPATHY, UNSPECIFIED 07/15/[address] active 15 ESSENTIAL (PRIMARY) HYPERTENSION 07/15/[address] active 16 GASTRO-ESOPHAGEAL REFLUX DISEASE WITHOUT ESOPHAGITIS 07/15/[address] active 17 HEART FAILURE, UNSPECIFIED 07/15/[address] active 18 HYPERLIPIDEMIA, UNSPECIFIED 07/15/[address] active 19 HYPERTENSIVE HEART AND CHRONIC KIDNEY DISEASE WITH HEART FAILURE AND STAGE 1 THROUGH STAGE 4 CHRONIC KIDNEY DISEASE, OR UNSPECIFIED CHRONIC KIDNEY DISEASE 07/15/[address] active 20 IRRITANT CONTACT DERMATITIS DUE TO FECAL, URINARY OR DUAL INCONTINENCE 07/15/[address] active 21 MORBID (SEVERE) OBESITY DUE TO EXCESS CALORIES 07/15/[address] active 22 MUSCLE WEAKNESS (GENERALIZED) 07/15/[address] active 23 NAUSEA 07/15/[address] active 24 OVERACTIVE BLADDER 07/15/[address] T active 25 RESTLESS LEGS SYNDROME 07/15/[address] active 26 TYPE 2 DIABETES MELLITUS WITHOUT COMPLICATIONS 07/15/[address] active 27 URINARY TRACT INFECTION, SITE NOT SPECIFIED 07/15/2022 09/30/[address] completed Reason for Referral No Reasons for Referral Entered Social History Social History Observation Description Start Date End Date Code Code System Current Smoking Status Tobacco smoking consumption unknown 323612470 SNOMED CT Sex Assigned At Female 1960 09904-5 [facility] Gender Identity Sexual Orientation Vital Signs Code Code System Vitals Name Values and Units Timing Information 77262-7 [facility] Pain Level Value=0.0 03/13/2023 2339-0 [facility] Blood Sugar Qlcpf=987.0 Units=mg/dL 03/13/2023 8310-5 [facility] Body Temperature Value=98.0 Units= F 03/08/2023 03865-1 [facility] Weight Mvsth=059.0 Units=Lbs 04/2023 9279-1 [facility] Respiratory Rate Value=18.0 Units=/m in 02/24/2023 8462-4 [facility] Blood Pressure-Diastolic Value=76 Un its=mmHg 02/24/2023 8480-6 [facility] Blood Pressure-Systolic Kolnz=176 Un its=mmHg 02/24/2023 8867-4 [facility] Heart rate Value=76.0 Units=/min 20878-0 [facility] O2 % BldC Oximetry Value=97.0 Units= % 02/24/2023 8302-2 [facility] Height Value=66.0 Units=Inches 07/15/2022
--- OUTSIDE RECORDS SUMMARY | 2025-05-11 23:32 | XMS_ITS ---
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 Operator Name Role Phone Compa Vinson Unavailable Unavailable Planeta, Candy Unavailable Unavailable Allergies and adverse reactions Code CodeSystem Substance Reaction Severity StartDate Concern Status 6809 RXNORM metFORMIN Unknown 02/13/2022 active Invokana Unknown 02/13/2022 active Care Team Name Role Address Phone Organization Dates Compa Vinson PCP [address] [place] [address], [address], [facility] (Office): [phone] (Fax): [phone] [facility] [place] 02/13/2022 - 06/09/2022 Candy Planeta [facility] Bear Chloe milan at [place] 02/13/2022 - 06/09/2022 Immunizations Immunization Status Vaccine Details Vaccine Code CodeSystem Date Notes SARS-COV-2 (COVID-19) completed SARS-COV-2 (COVID-19) vaccine, mRNA, spike protein, LNP, bivalent, preservative free, 30 mcg/0.3 mL dose, rachel-sucrose formulation lotNumber: [id number] expiry: 02/26/2023 Mfg: pfizer Given 0.3 ml intramuscularly Step 1 of Multi-step 300 CVX created date: 09/10/2022 consent date: 09/09/2022 administer ed date: 05/26/2022 Bivalent booster SARS-COV-2 (COVID-19) completed SARS-COV-2 (COVID-19) vaccine, mRNA, spike protein, LNP, preservative free, 30 mcg/0.3mL dose Mfg: pfizer Step 1 of Multi-step 208 CVX created date: 09/10/2022 administer ed date: 08/13/2021 booster #1 SARS-COV-2 (COVID-19) completed SARS-COV-2 (COVID-19) vaccine, mRNA, spike protein, LNP, preservative free, 30 mcg/0.3mL dose Mfg: Jon J&J Step 1 of Multi-step 208 CVX created date: 09/10/2022 administer ed date: 01/29/2021 Mental Status Section Date Assessment Total Score Description 06/09/2022 BIMS 15 cognitively int act CAM 0 No delirium ind icated PHQ-9 01 minimal depress ion 06/04/2022 CAM 0 No delirium ind icated Problems Problem # Description Date of onset Resolved Date Code CodeSystem Concern Status 1 HY[address]KALEMIA [address] active 2 URINARY TRACT INFECTION, SITE NOT SPECIFIED [address] active 3 CHRONIC KIDNEY DISEASE, STAGE 3 UNSPECIFIED [address] active 4 DYSPNEA, UNSPECIFIED [address] active 5 EDEMA, UNSPECIFIED [address] active 6 HYPOTHYROIDISM, UNSPECIFIED [address] active 7 LYMPHEDEMA, NOT ELSEWHERE CLASSIFIED [address] active 8 OBSTRUCTIVE SLEEP APNEA (ADULT) (PEDIATRIC) [address] active 9 OTHER CHRONIC PAIN [address] active 10 TYPE 2 DIABETES MELLITUS WITH HYPERGLYCEMIA [address] active 11 UNSPECIFIED DIASTOLIC (CONGESTIVE) HEART FAILURE [address] active 12 UNSPECIFIED RENAL COLIC [address] active 13 ABNORMAL LEVELS OF OTHER SERUM ENZYMES [address] active 14 ANEMIA, UNSPECIFIED [address] active 15 ANXIETY DISORDER, UNSPECIFIED [address] active 16 CHRONIC KIDNEY DISEASE, UNSPECIFIED [address] active 17 ESSENTIAL (PRIMARY) HYPERTENSION [address] active 18 GASTRO-ESOPHAGEAL REFLUX DISEASE WITHOUT ESOPHAGITIS [address] active 19 KLEBSIELLA PNEUMONIAE [K. PNEUMONIAE] THE CAUSE OF DISEASES CLASSIFIED ELSEWHERE [address] active 20 LOW BACK PAIN, UNSPECIFIED [address] active 21 MORBID (SEVERE) OBESITY DUE TO EXCESS CALORIES [address] active 22 OTHER SPECIFIED DIABETES MELLITUS WITH DIABETIC NEUROPATHY, UNSPECIFIED [address] active 23 OVERACTIVE BLADDER [address] active 24 RESTLESS LEGS SYNDROME [address] active 25 SPINAL STENOSIS, LUMBAR REGION WITHOUT NEUROGENIC CLAUDICATION [address] active 26 TYPE 2 DIABETES MELLITUS WITH DIABETIC CHRONIC KIDNEY DISEASE [address] active 27 TYPE 2 DIABETES MELLITUS WITHOUT COMPLICATIONS [address] active 28 UNSPECIFIED ABDOMINAL PAIN [address] active 29 UNSPECIFIED ASTHMA, UNCOMPLICATED [address] active 30 VOMITING, UNSPECIFIED [address] active 31 WEAK[address] active Reason for Referral No Reasons for Referral Entered Social History Social History Observation Description Start Date End Date Code Code System Current Smoking Status Tobacco smoking consumption unknown 144451464 SNOMED CT Sex Assigned At Female 1960 55737-0 [facility] Gender Identity Sexual Orientation Vital Signs Code Code System Vitals Name Values and Units Timing Information 2339-0 [facility] Blood Sugar Xebxd=355.0 Units=mg/dL 06/09/2022 9279-1 [facility] Respiratory Rate Value=16.0 Units=/m in 06/09/2022 8462-4 [facility] Blood Pressure-Diastolic Value=77 Un its=mmHg 06/09/2022 8480-6 [facility] Blood Pressure-Systolic Cvemk=282 Un its=mmHg 06/09/2022 8310-5 [facility] Body Temperature Value=97.7 Units= F 06/09/2022 8867-4 [facility] Heart rate Value=76.0 Units=/min 06/2022 02031-9 [facility] O2 % BldC Oximetry Value=94.0 Units= % 06/09/2022 46399-2 [facility] Pain Level Value=0.0 06/07/2022 45743-3 [facility] Weight Euhax=166.1 Units=Lbs 09/2021 8302-2 [facility] Height Value=66.0 Units=Inches 05/06/2022
--- OUTSIDE RECORDS SUMMARY | 2025-05-11 23:32 | XMS_ITS ---
Author Name Vu, Clinic Address [address] [place] [address] Phone [phone] Organization [facility] e, NA DOCUMENT DISCLAIMER Multiple document versions may exist, please be sure you review the latest version. The information in the [facility] Continuity of Care Document represents a summary of certain health and medical information. It may not contain the complete medical history for the patient and should be independently verified. The represented time in the document is Eastern Time. PROBLEMS Problem Code Status Onset Date Anemia, unspecified D64.9 Active 2024 Iron deficiency anemia, unspecified D50.9 Activ e May 11, 2025 Secondary hyperparathyroidism of renal origin N25.81 Active May 11, 2025 Shortness of breath R06.02 Active 2024 Anaphylactic shock, unspecified, initial encounter T78 .2XXA Active May 11, 2025 Allergy, unspecified, initial encounter T78.40XA A ctive May 11, 2025 Type 2 diabetes mellitus with diabetic nephropathy E11 .21 Active May 11, 2025 End stage renal disease N18.6 Active Apr Diarrhea, unspecified R19.7 Active April 25, 2025 Fever, unspecified R50.9 Active March Chest pain, unspecified R07.9 Active 2024 Pain, unspecified R52 Active April 25, 2025 Shortness of breath R06.02 Active March 312024 Secondary hyperparathyroidism of renal origin N25.81 Active April 25, 2025 Other disorders of phosphorus metabolism E83.39 Active April 25, 2025 Anemia in chronic kidney disease D63.1 Active April 25, 2025 End stage renal disease N18.6 Active 2024 Allergy, unspecified, sequela T78.40XS Active April 25, 2025 Hypertensive chronic kidney disease with stage 5 chronic kidney disease or end stage renal disease I12.0 Active April 24, 2025 Dependence on renal dialysis Z99.2 Active April 24, 2025 Other specified chronic obst ructive pulmonary disease J44.89 Active April 24, 2025 Morbid (severe) obesity due to excess calories E66.01 Active April 24, 2025 Type 2 diabetes mellitus wit h diabetic chronic kidney disease E11.22 Active April 24, 2025 ALLERGIES AND ADVERSE REACTIONS Substance Reaction Severity Status metformin Unknown Active Invokana Unknown Active SOCIAL HISTORY Tobacco Use Status Tobacco Type Unknown if ever consumed tobacco - Caregiver Characteristics No Information Available Characteristics of Home environment No Information Available Gender and Sex Information Gender Identity Sexual Orientation No Information Available No Information Available MEDICATIONS No Medications VITAL SIGNS Post-Treatment Vital Signs Vital Sign Value Date / Time Blood Pressure-sitting 141/71 mmHg May 11, 2025 11:24 AM Heart Rate 67 beats per minute April 11:24 AM Respiratory Rate 18 breaths per minute May 11, 2025 11:24 AM Temperature 97.0 deg. F May 11 11:24 AM Weight Vital Sign Value Date / Time Estimated Dry Weight 140 kg April 302024 11:59 PM Pre-Dialysis 145.90 kg May 11 11:24 AM Post-Dialysis 142.70 kg May 11 11:24 AM Other Other Value Date / Time Height 167 cm May 11 12:00 AM LAB RESULTS Liver/Nutrition Result Type Result Value Relevant Referen ce Range Interpretation Date Glucose, Point of Care Test 206 No Reference Range Provided - May 11, 2025 Infectious Diseases Result Type Result Value Relevant Referen ce Range Interpretation Date Hep B Surface Ag (HBsAg) negative No Reference Range Provided Normal May 11, 2025 DIALYSIS PRESCRIPTION Conventional Hemodialysis Data Element Value Order Date/Time May 11, 2025 Frequency 3X Week Treatment Days MonWedFri Dialyzer FX CorAL 80 Treatment Time (Total Minutes) 255 min Blood Flow Rate (mL/min) 450 mL/min Dialysate Flow Rate Manual 800 Estimated Dry Weight 140 kg Dialysate Concentrate 2.0 K, 2.50 Ca, 1. 0 Mg, 100 Dextrose (WE0155) Sodium (mEq/L) 137 mEq/L Bicarb Machine Setting (mEq/L) 35 mEq/L Dialysis Access Hemodialysis-AV Frank t-Unknown, Left Forearm, Other/Unknown Access Placed on June 14, 2024 Arterial Needle Size 15g1 Venous Needle Size 15g1 TRANSPLANT WAITLIST STATUS No Information on Transplant Waitlist Status ADVANCE DIRECTIVES Directive Description Ordered By Effective Date Resuscitation status Full Code Alan Mccarthy May 11, 2025 DIALYSIS TREATMENTS Conventional Hemodialysis Date Pre-Treatment Vitals Post-Treatment Susan ls Duration (hr) BFR (mL/min) Dialysate Dialyzer [facility] Weight 145.90 kg Weight 142.70 kg 04:17:00 450 2.0 K, 2.50 Ca, 1.0 Mg, 100 Dextrose ([id number]) 180nre Optifl ux Blood Pressure-sitting 160/105 mmHg Blood Pressure-sit ting 141/71 mmHg Heart Rate 88 beats per minute Heart Rate 67 beats per minute Respiratory Rate 18 breaths per minute Respiratory Rate 18 breaths per minute Temperature 97.0 deg. F Temperature 97.0 deg. F
--- NOTE | 2025-05-11 23:38 | ED.GENADULT ---
HPI - General Adult General Chief complaint: Nausea/Vomiting/Diarrhea Stated complaint: sob, n/v Time Seen by Provider: 05/11/25 23:20 Source: patient and EMS Mode of arrival: EMS Limitations: no limitations History of Present Illness ED Provider: DR. Saldana HPI narrative: 64-year-old female PMHx of morbid obesity, DM, HTN, bed ridden at home, ESRD on HD last dialysis was today patient had a full session of dialysis 4 hours patient reported while dialysis patient got 1 episode of hypotension, patient was discharged after dialysis. returned today for feeling nauseous after dialysis, no abdominal pain, no CP, no SOB, no fever, no chills. Related Data Home Medications ?Medication ?Instructions ?Recorded ?Confirmed amlodipine 10 mg tablet 10 mg PO DAILY 02/03/22 05/12/25 oxybutynin chloride 15 mg 15 mg PO DAILY 03/06/22 05/12/25 tablet,extended release 24 hr insulin lispro 100 unit/mL 10 - 18 unit subcut TIDWM 07/11/22 05/12/25 subcutaneous solution (Humalog U-100 Insulin) nystatin 100,000 unit/gram topical 1 appl topical TID 07/11/22 05/13/25 cream insulin glargine 100 unit/mL (3 20 unit subcut BEDTIME 05/12/25 05/12/25 mL) subcutaneous pen (Lantus Solostar U-100 Insulin) ropinirole 0.25 mg tablet 0.25 mg PO BEDTIME 05/12/25 05/12/25 Benzocaine-Isopropyl Alcohol 1 appl topical BID 05/13/25 05/13/25 Topical Swabs Glucose 45% Oral Gel 1 - 2 tube PO DAILY PRN for low BG 05/13/25 05/13/25 Milk Of Magnasia 30 ml PO DAILY PRN Constipation 05/13/25 05/13/25 Triamcinolone 0.1% Ointment 1 appl topical TID PRN diabetic 05/13/25 05/13/25 psoriasis acetaminophen 325 mg tablet 650 mg PO Q6H PRN Pain (Scale 05/13/25 05/13/25 Score 4-6) bisacodyl 10 mg rectal suppository 10 mg MD DAILY PRN Constipation 05/13/25 05/13/25 docusate sodium 100 mg capsule 100 mg PO DAILY 05/13/25 05/13/25 epoetin silverio 20,000 unit/mL 20,000 unit subcut TH 05/13/25 05/13/25 injection solution ferrous fumarate 325 mg (106 mg 325 mg PO DAILY 05/13/25 05/13/25 iron) tablet glucagon 1 mg solution for 1 mg IM Q20M PRN low BG 05/13/25 05/13/25 injection hydralazine 25 mg tablet 25 mg PO TID 05/13/25 05/13/25 pantoprazole 20 mg tablet,delayed 20 mg PO DAILY 05/13/25 05/13/25 release polyethylene glycol 3350 17 gram 17 g PO DAILY 05/13/25 05/13/25 oral powder packet sennosides 8.6 mg tablet (senna) 17.2 mg PO BEDTIME 05/13/25 05/13/25 sodium phosphates 19 gram-7 118 ml MD DAILY 05/13/25 05/13/25 gram/118 mL enema Previous Rx's ?Medication ?Instructions ?Recorded albuterol sulfate 90 mcg/actuation 2 puff inhalation Q4H PRN 03/24/21 aerosol inhaler bronchospasm 30 days #8.5 grams blood sugar diagnostic #200 ea 12/05/21 blood sugar diagnostic (Accu-Chek #300 ea 12/05/21 Berna Plus test strips) gabapentin 100 mg capsule 100 mg PO BID #60 caps 06/22/22 hospital bed #1 ea 07/06/22 ondansetron 4 mg disintegrating 4 mg translingual TIDAC PRN nausea 07/06/22 tablet #12 tabs pen needle, diabetic 32 gauge x #100 ea 07/07/2232 insulin syringe-needle U-100 1 mL #100 ea 07/08/22 30 gauge x 1/2 (BD Insulin Syringe Ultra-Fine) Allergies Allergy/AdvReac Type Severity Reaction Status Date / Time metformin (METFORMIN) Allergy Severe HIVES Verified 05/11/25 23:02 canagliflozin (From Invokana) Allergy Hives Verified 05/11/25 23:02 Review of Systems Review of Systems: All other systems are reviewed and are negative Constitutional: Reports as per HPI and Reports no additional constitutional complaints Eyes: Reports as per HPI and Reports no additional eye complaints Reports system reviewed and no additional complaints, except as documented Cardiovascular: Reports as per HPI and Reports no additional cardiovascular complaints Respiratory: Reports as per HPI and Reports no additional respiratory complaints Gastrointestinal: Reports as per HPI and Reports no additional gastrointestinal complaints Genitourinary: Reports no additional female genitourinary complaints Musculoskeletal: Reports no additional musculoskeletal complaints Skin/Breast: Reports system reviewed and no additional complaints, except as docu Psychiatric: Reports no additional psychiatric complaints Endocrine: Reports no additional endocrine complaints Hematologic/Lymphatic: Reports no additional hematologic/lymphatic complaints Allergic/Immunologic: Reports no additional allergic/immunologic complaints Reports system reviewed and no additional complaints, except as documented and Reports Abnormal speech present [facility] Past Medical History Medical History HTN (hypertension) HLD (hyperlipidemia) T2DM (type 2 diabetes mellitus) Frequent UTI Acute kidney injury superimposed on chronic kidney disease Anemia Hyperkalemia Heart failure with preserved ejection fraction Alteration in skin integrity due to moisture Acute on chronic diastolic (congestive) heart failure UTI (urinary tract infection) Type 2 diabetes mellitus with obesity Clostridium difficile diarrhea Essential hypertension Morbid obesity Detrusor dysfunction Bladder outlet obstruction Esophagitis CKD (chronic kidney disease) stage 4, GFR 15-29 ml/min Hypothyroidism IBS (irritable bowel syndrome) Surgical History History of tubal ligation Family History Family History Father Diabetes Mother Diabetes Hypertension Breast cancer Family/Other Breast cancer Uterine cancer Social History Social History Household Members: None Housing: Apartment Do you presently have visiting nurse or other home services: Yes Alcohol intake: never Comment: sleeping Patient Tobacco Use Status: Former Tobacco user Smoked in Last 30 Days: No e-Cigarette/Vaping Use: Never Used Second Hand Smoke Exposure: No Use of substances other than those prescribed or required for medical reasons: No Advance Directives: Yes Advance Directives on File: Yes Advance Directives Date on File: 10/09/20 service: No Current occupational status: disabled Cognitive needs: No Hearing needs: No Vision needs: Yes Physical Exam ED Vital Signs: Vital Signs - 24 hr 05/13/25 13:40 05/13/25 22:00 05/14/25 06:00 Temperature 98 F 98.5 F 98.3 F Pulse Rate 72 74 76 Respiratory Rate 18 15 18 Blood Pressure 128/44 L 127/74 117/51 L Pulse Oximetry 94 100 97 Oxygen Delivery Method Room Air Room Air Room Air BMI result Body Mass Index 50.2 Vital signs have been reviewed and appear to be correct. Blood pressure elevated. Heart rate normal. Respiratory rate normal. Temperature normal. Oxygen saturation normal. Appearance: Alert. Oriented X3. No acute distress. Head: Normal external exam. Normocephalic. Atraumatic. No Knight signs noted. No raccoon eyes noted Eyes: PERRLA. EOMI. Conjunctiva and sclera normal. Eyelids normal. ENT: TM's Normal. Pharynx normal. Uvula midline. Moist mucous membranes. No trismus noted. No drooling noted. No muffled voice noted. Neck: Normal inspection. Neck supple. FROM. No adenopathy. Thyroid Normal. No meningeal signs. No neck mass noted. CVS: Normal heart rate and rhythm. Heart sound normal. No murmurs noted. Pulses normal throughout. Respiratory: No respiratory distress. Painless inspiration. Breath sounds normal. No wheezes/rales/rhonchi noted. Chest nontender. No accessory muscle usage noted or decreased air movement noted. Abdomen: Soft and nontender. Bowel sounds normal in all 4 quadrants. No distention noted. No organomegaly noted. No visible injury noted. Back: No CVA tenderness. Full range of motion noted. Skin: Skin warm and dry. Normal skin color. Normal skin turgor. No rashes/lesions/lacerations noted. Extremities: Bilateral lower extremity edema. Extremities exhibit normal range of motion. Extremities nontender. Neuro: Oriented X 3. Cranial nerve exam: II-XII are grossly intact No motor deficit. No sensory deficit. Reflexes normal. Course Reevaluation(s) Reevaluation #1: Patient feels better, no nausea, no vomiting while she was in the ED, chronic leukocytosis, no abdominal pain, electrolyte within normal no need for emergent dialysis, vital signs stable, patient makes small amount of urine can not collect urine from the patient line in the ED, has no fever, no chills, no dysuria, no frequency urination. Patient now feels at her baseline. patient is bed-bound usually get help from [employer] that is not available today to care for the patient, will start physician observation and case management consultation in the morning. Time: 01:00 Reevaluation #2: Time: 08:35 Date: 05/12/25 Provider: MAKENNA Good Patient in physician observation for case management needs. No acute events reported overnight.? No current issues or complaints. VS stable. Patient is pending CM eval. Will continue to monitor. Time: 08:41 Date: 05/13/25 Provider: MAKENNA Good Patient in physician observation for case management needs. No acute events reported overnight.? No current issues or complaints. VS stable. Patient is pending CM eval. Will continue to monitor. Reevaluation #3: 6:15 AM 05/14/2025 (Dr. Amrit Forbes): Notified by charge nurse that patient is due for hemodialysis needs to be admitted, will place an admission request Time: 08:16 Date: 05/14/25 Provider: MAKENNA Hayes Patient in physician observation for case management needs. No acute events reported overnight.? It was brought to my attention that patient is due for hemodialysis, there was a admission request placed by Dr Forbes. I reached out to the hospitalist for possible transfer of care for dialysis. Medications Administered Generic Name Dose Route Start Last Admin Trade Name Freq PRN Reason Stop Dose Admin Amlodipine Besylate 10 mg 05/13/25 09:00 05/13/25 07:26 Amlodipine Besylate 10 Mg Tablet PO 10 mg DAILY KENTRELL Administration Protocol Gabapentin 100 mg 05/12/25 21:00 05/13/25 20:58 Gabapentin 100 Mg Capsule PO 100 mg BID KENTRELL Administration Insulin Glargine 20 unit 05/12/25 22:00 05/13/25 20:59 Insulin Glargine,Hum.Rec.Anlog 100 Unit/Ml 10 Ml Vial SUBCUT 20 unit BEDTIME KENTRELL Administration Insulin Human Lispro 0 - 18 unit 05/13/25 17:30 05/13/25 17:21 Insulin Lispro 100 Unit/Ml 3 Ml Vial SUBCUT 14 unit TIDWM KENTRELL Administration Protocol Nystatin 1 appl 05/12/25 21:00 05/13/25 21:29 Nystatin Cream 15 Gm Tube TOPICAL 1 appl BID KENTRELL Administration Protocol Ondansetron HCl 4 mg 05/12/25 20:26 05/13/25 21:55 Ondansetron Odt 4 Mg Tab.Rapdis TRANSLINGU 4 mg TIDAC PRN Administration Nausea Oxybutynin Chloride 15 mg 05/13/25 09:00 05/13/25 07:26 Oxybutynin Chloride Er 5 Mg Tab.Er.24 PO 15 mg DAILY KENTRELL Administration Ropinirole HCl 0.25 mg 05/12/25 21:45 05/13/25 20:57 Ropinirole Hcl 0.25 Mg Tablet PO 0.25 mg BEDTIME KENTRELL Administration Discontinued Medications Generic Name Dose Route Start Last Admin Trade Name Freq PRN Reason Stop Dose Admin Insulin Human Lispro 5 unit 05/13/25 08:00 05/13/25 18:33 Insulin Lispro 100 Unit/Ml 3 Ml Vial SUBCUT Not Given TIDWM KENTRELL Protocol Ondansetron HCl 4 mg 05/11/25 23:36 05/11/25 23:51 Ondansetron Odt 4 Mg Tab.Rapdis TRANSLINGU 05/11/25 23:37 4 mg ONCE ONE Administration Medical Decision Making Differential Diagnosis Differential Diagnoses: The differential diagnosis associated with the presentation includes ( Hypotension after dialysis, electrolyte derangement, severe anemia, pneumonia, pneumothorax, CHF, volume overload.) Admission/Observation Consideration of admission/observation: Escalation of care including admission/observation considered Lab Data MDM Lab Attestation statement: I reviewed the patient's lab results. 05/11/25 23:19 05/11/25 23:19 Labs: Lab Results 05/11/25 05/12/25 05/12/25 Range/Units 23:19 13:04 15:32 WBC 12.2 H (4.8-10.8) X10*3/uL RBC 3.22 L (4.20-5.50) X10*6/uL Hgb 10.5 L (12.0-16.0) g/dl Hct 29.7 L (37.0-47.0) % MCV 92.2 (80.0-98.0) fL MCH 32.6 (27.0-33.0) pg MCHC 35.4 H (31.0-35.0) g/dl RDW 13.2 (11.0-16.0) % Plt Count 167 D (160-400) X10*3/uL MPV 9.6 (9.4-12.3) fL Immature Gran % (Auto) 0.5 H (0.0-0.4) % Neut % (Auto) 77.6 H (45-73) % Lymph % (Auto) 11.7 L (20-40) % Hutchinson % (Auto) 8.0 (2-11) % Eos % (Auto) 1.6 (0-4) % Baso % (Auto) 0.6 (0-2) % Lymph # (Auto) 1.4 (1.2-4.9) X10*3/uL Hutchinson # (Auto) 1.0 (0.1-1.2) X10*3/uL Eos # (Auto) 0.2 (0.0-0.4) X10*3/uL Baso # (Auto) 0.1 (0.0-0.2) X10*3/uL Abs Immat Gran (auto) 0.06 H (0.00-0.03) X10*3/uL Absolute Neuts (auto) 9.4 H (2.0-8.3) x10*3/uL Absolute Nucleated RBC 0.000 (0.0-0.012) X10*3/uL Nucleated RBC % (auto) 0.0 (0.0-0.2) /100WBC Sodium 138 (135-145) mmol/L Potassium 3.8 (3.3-5.1) mmol/L Chloride 98 (96-108) mmol/L Carbon Dioxide 26 (22-29) mmol/L Anion Gap 18 (12-20) BUN 27 H (9-16) mg/dL Creatinine 2.69 H (0.5-1.4) mg/dL Estim Creat Clear Calc 29.8 Estimated GFR 18 POC Glucose 252 H 273 H (60-115) mg/dL Random Glucose 284 H (60-115) mg/dL Calcium 8.5 (8.4-10.2) mg/dL Total Bilirubin 0.4 (0.0-1.0) mg/dL AST 23 (5-31) U/L ALT 17 (0-31) U/L Alkaline Phosphatase 160 H (39-117) U/L Total Protein 7.1 (6.5-8.0) g/dL Albumin 3.9 (3.5-5.0) g/dL 05/12/25 05/13/25 05/13/25 Range/Units 21:54 07:06 11:49 WBC (4.8-10.8) X10*3/uL RBC (4.20-5.50) X10*6/uL Hgb (12.0-16.0) g/dl Hct (37.0-47.0) % MCV (80.0-98.0) fL MCH (27.0-33.0) pg MCHC (31.0-35.0) g/dl RDW (11.0-16.0) % Plt Count (160-400) X10*3/uL MPV (9.4-12.3) fL Immature Gran % (Auto) (0.0-0.4) % Neut % (Auto) (45-73) % Lymph % (Auto) (20-40) % Hutchinson % (Auto) (2-11) % Eos % (Auto) (0-4) % Baso % (Auto) (0-2) % Lymph # (Auto) (1.2-4.9) X10*3/uL Hutchinson # (Auto) (0.1-1.2) X10*3/uL Eos # (Auto) (0.0-0.4) X10*3/uL Baso # (Auto) (0.0-0.2) X10*3/uL Abs Immat Gran (auto) (0.00-0.03) X10*3/uL Absolute Neuts (auto) (2.0-8.3) x10*3/uL Absolute Nucleated RBC (0.0-0.012) X10*3/uL Nucleated RBC % (auto) (0.0-0.2) /100WBC Sodium (135-145) mmol/L Potassium (3.3-5.1) mmol/L Chloride (96-108) mmol/L Carbon Dioxide (22-29) mmol/L Anion Gap (12-20) BUN (9-16) mg/dL Creatinine (0.5-1.4) mg/dL Estim Creat Clear Calc Estimated GFR POC Glucose 293 H 238 H 213 H (60-115) mg/dL Random Glucose (60-115) mg/dL Calcium (8.4-10.2) mg/dL Total Bilirubin (0.0-1.0) mg/dL AST (5-31) U/L ALT (0-31) U/L Alkaline Phosphatase (39-117) U/L Total Protein (6.5-8.0) g/dL Albumin (3.5-5.0) g/dL 05/13/25 Range/Units 17:01 WBC (4.8-10.8) X10*3/uL RBC (4.20-5.50) X10*6/uL Hgb (12.0-16.0) g/dl Hct (37.0-47.0) % MCV (80.0-98.0) fL MCH (27.0-33.0) pg MCHC (31.0-35.0) g/dl RDW (11.0-16.0) % Plt Count (160-400) X10*3/uL MPV (9.4-12.3) fL Immature Gran % (Auto) (0.0-0.4) % Neut % (Auto) (45-73) % Lymph % (Auto) (20-40) % Hutchinson % (Auto) (2-11) % Eos % (Auto) (0-4) % Baso % (Auto) (0-2) % Lymph # (Auto) (1.2-4.9) X10*3/uL Hutchinson # (Auto) (0.1-1.2) X10*3/uL Eos # (Auto) (0.0-0.4) X10*3/uL Baso # (Auto) (0.0-0.2) X10*3/uL Abs Immat Gran (auto) (0.00-0.03) X10*3/uL Absolute Neuts (auto) (2.0-8.3) x10*3/uL Absolute Nucleated RBC (0.0-0.012) X10*3/uL Nucleated RBC % (auto) (0.0-0.2) /100WBC Sodium (135-145) mmol/L Potassium (3.3-5.1) mmol/L Chloride (96-108) mmol/L Carbon Dioxide (22-29) mmol/L Anion Gap (12-20) BUN (9-16) mg/dL Creatinine (0.5-1.4) mg/dL Estim Creat Clear Calc Estimated GFR POC Glucose 282 H (60-115) mg/dL Random Glucose (60-115) mg/dL Calcium (8.4-10.2) mg/dL Total Bilirubin (0.0-1.0) mg/dL AST (5-31) U/L ALT (0-31) U/L Alkaline Phosphatase (39-117) U/L Total Protein (6.5-8.0) g/dL Albumin (3.5-5.0) g/dL Independent Interpretation I performed an independent interpretation of an: Plain X-Ray ( Chest: No acute findings) Radiology Impression Discussion of test interpretation with radiology: I have reviewed the radiologist's reading. Chronic Conditions Patient?s care impacted by: Other ( ESRD /HD.) Discharge Plan Discharge Clinical Impression: Nausea, Episode of generalized weakness, CKD (chronic kidney disease) stage 4, GFR 15-29 ml/min Patient Disposition: Home, Self-Care Additional Instructions: Please continue your regular medications. Please follow up with your regular doctor next week. Call on Wednesday morning for an appointment. Return to ER if worse. Prescriptions: No Action albuterol sulfate 90 mcg/actuation HFA aerosol inhaler 2 puff inhalation Q4H PRN (Reason: bronchospasm) 30 Days Qty: 8.5 5RF (DME) Accu-Chek Berna Plus test strp Strip See Rx Instructions .Route Qty: 300 8RF Rx Instructions: to check blood sugars five times a day (DME) blood sugar diagnostic Strip See Rx Instructions .ROUTE .MEDSUPPLY Qty: 200 8RF Rx Instructions: FREESTYLE TEST STRIPS gabapentin 100 mg capsule 100 mg PO BID Qty: 60 7RF ondansetron 4 mg tablet,disintegrating 4 mg translingual TIDAC PRN (Reason: nausea) Qty: 12 0RF (DME) hospital bed Kit See Rx Instructions .Route Qty: 1 0RF Rx Instructions: As directed (DME) pen needle, diabetic 32 gauge x needle See Rx Instructions .Route Qty: 100 0RF Rx Instructions: use TID (DME) insulin syringe-needle U-100 [BD Insulin Syringe Ultra-Fine] 1 mL 30 gauge x 1/2 syringe See Rx Instructions .ROUTE .MEDSUPPLY Qty: 100 3RF Rx Instructions: TID insulin lispro [Humalog U-100 Insulin] 100 unit/mL solution 10 - 18 unit subcut TIDWM Rx Instructions: Patient uses a sliding scale nystatin 100,000 unit/gram Cream 1 appl TOPICAL TID Protocol: Apply to: Apply to: UNDER BREASTS, BELLY FOLDS insulin glargine [Lantus Solostar U-100 Insulin] 100 unit/mL (3 mL) insulin pen 20 unit subcut BEDTIME ropinirole 0.25 mg tablet 0.25 mg PO BEDTIME acetaminophen 325 mg Tablet 650 mg PO Q6H PRN (Reason: Pain (Scale Score 4-6)) Benzocaine-Isopropyl Alcohol Topical Swabs swab 1 appl topical BID bisacodyl 10 mg Suppository 10 mg MD DAILY PRN (Reason: Constipation) epoetin silverio 20,000 unit/mL Solution 20,000 unit SUBCUT TH glucagon 1 mg Recon Soln 1 mg IM Q20M PRN (Reason: low BG) Rx Instructions: until target blood sugar attained ferrous fumarate 325 mg (106 mg iron) Tablet 325 mg PO DAILY Glucose 45% Oral Gel 1 - 2 tube PO DAILY PRN (Reason: for low BG) sennosides [senna] 8.6 mg Tablet 17.2 mg PO BEDTIME polyethylene glycol 3350 17 gram Powder In Packet 17 g PO DAILY hydralazine 25 mg Tablet 25 mg PO TID pantoprazole 20 mg Tablet,Delayed Release (Dr/Ec) 20 mg PO DAILY sodium phosphates 19-7 gram/118 mL Enema 118 ml MD DAILY Rx Instructions: Give if Dulcolax suppository is ineffective Milk Of Magnasia 400 mg/5 mL suspension 30 ml PO DAILY PRN (Reason: Constipation) Rx Instructions: give if no BM x 3 days Triamcinolone 0.1% Ointment ointment 1 appl topical TID PRN (Reason: diabetic psoriasis) docusate sodium 100 mg Capsule 100 mg PO DAILY amlodipine 10 mg tablet 10 mg PO DAILY oxybutynin chloride 15 mg tablet extended release 24hr 15 mg PO DAILY Referrals: Alexi Lynne MD [Primary Care Provider, Internal Medicine] Print Language: Cymraes
[2025-05-11 23:39] LABS: Alanine Aminotransferase 17 U/L (0-31); Albumin Level 3.9 g/dL (3.5-5.0); Alkaline Phosphatase 160 U/L (39-117); Anion Gap 18 (12-20); Aspartate Amino Transferase 23 U/L (5-31); Blood Urea Nitrogen 27 mg/dL (9-16); Calcium 8.5 mg/dL (8.4-10.2); Carbon Dioxide 26 mmol/L (22-29); Chloride 98 mmol/L (96-108); Creatinine Clr Calc Pharmacy 29.8; Estimated Glomerular Filt Rate 18; Potassium 3.8 mmol/L (3.3-5.1); Sodium 138 mmol/L (135-145); Total Protein 7.1 g/dL (6.5-8.0)
[2025-05-12 00:52] VITALS: BP 115/47; PULSE 69; RESP 20; TEMP 37.2; O2SAT 96
[2025-05-12 03:21] VITALS: BP 120/51; PULSE 66; RESP 20; TEMP 37.1; O2SAT 96
--- NOTE | 2025-05-12 03:59 | PC.NURSE ---
RN to bedside to answer call gonzalez. at which time the pt was found to be awake, alert, oriented, without distress noted. She requested a diet gingerale as she reports her mouth being dry. The pt and RN were conversing freely and the pt expressed her concern regarding plan for dc home in the am. Pt reports that although she has 60+ CAR USHER hours, she does not currently have a CAR USHER as she lost them during a previous hospital admission. The pt states if she were to go home she would have no one to provide care for her as she is bedbound and unable to walk or bear weight. RN discussed options regarding case management involvement and seeing how they can assist and she was agreeable. RN spoke with Dr. Saldana to make him aware and all parties are in agreeance to place a case management consult.
[2025-05-12 06:21] VITALS: BP 130/50; PULSE 66; RESP 19; TEMP 37; O2SAT 97
--- NOTE | 2025-05-12 08:13 | MHC.CM.PN ---
Addendum entered by Karina Crowell 05/12/25 14:49: Met with pt at length to review d/c planning needs: pt pleasant, very talkative and requires redirection: Pt states she has a handicap apartment that she pays rent on but has been in hospitals or STR centers on and off for about 10 years. Her last SNF was [facility] in [place]. She states they took all of her SSI money and when she asked to return to home, they did not arrange any services. Pt has a mechanical bed and new barbara. BLS is her mode of transportation She then had a prolonged stay at [facility] and was d/c'd to home in March. At this time, she had 3 FOREST PATHOLOGY ASSOCIATE PROFESSOR's who were caring for her 60+ hours per week - she states she only has one at this time and care was being supplemented by family or methodist friends while she is in the process of finding help. Pt is barbara dependent and primarily bed bound. She also goes to HD at [address] [facility]. HD information was hard to decipher - pt very focused on early chair time and uncomfortable chair. Call placed to pt's dtr Anne-Marie again: she states she is unable to assist pt nor are her two brothers. Pt does not have a safe d/c at home d/t lack of care givers. Although pt would like to remain at home, she is aware of the barriers and gives permission for SNF referrals. [facility] to [facility] per pt choice. May have to extend search d/t payor and HD constraints. Addendum entered by Karina Crowell 05/12/25 12:04: Pt declining to d/c to home stating she has been unable to speak with her FOREST PATHOLOGY ASSOCIATE PROFESSOR that was reported to be at her home for 12pm. Pt's dtr aware. D/C plan ongoing. Addendum entered by Karina Crowell 05/12/25 10:36: Call placed to pt's dtr Anne-Marie: she states pt will have a FOREST PATHOLOGY ASSOCIATE PROFESSOR today at 12pm. Aryan ENNIS arranged for transport at 12pm. Pt, ED RN/MD aware of plan. Original Note: Received consult for CM assessment: pt brought in the ED after HD session w/nausea. No criteria for admission. Pt is bedbound and not able to return to home as she did not have FOREST PATHOLOGY ASSOCIATE PROFESSOR care. Call placed to pt's HCP / dtr Anne-Marie to assist - Message left. Will call again.
--- NOTE | 2025-05-12 12:05 | PC.NURSE ---
Transport arrived to bring pt home for d/c. Pt states she will not go as she has not heard from her AUTOMOTIVE TIRE TESTER all day and states she nobody to let her in her house. CM and MD aware transport unable to stay and wait for pt.
[2025-05-12 13:12] LABS: Glucose, Whole Blood 252 mg/dL (60-115)
[2025-05-12 15:38] LABS: Glucose, Whole Blood 273 mg/dL (60-115)
[2025-05-12 16:17] VITALS: BP 130/43; PULSE 72; RESP 18; TEMP 37.1; O2SAT 98
--- NOTE | 2025-05-12 19:03 | PC.NURSE ---
this rn assumed care of pt, pt sitting up in stretcher eating dinner, no acute distress noted
--- NOTE | 2025-05-12 20:26 | PC.NURSE ---
pt placed in hospital bed for comfort at this time, this rn informed MAKENNA Rondon of med rec being complete. awaiting orders.
[2025-05-12 22:00] LABS: Glucose, Whole Blood 293 mg/dL (60-115)
[2025-05-12 22:15] VITALS: BP 132/64; PULSE 64; RESP 19; TEMP 36.9; O2SAT 98
[2025-05-12] MEDS: Insulin Glargine,Hum.rec.anlog 100 UNIT/ML 10 ML VIAL 20 UNIT SUBCUT (22:16)
--- NOTE | 2025-05-12 22:21 | PC.NURSE ---
pt medicated per oct, tolerated whole well with water. large water pitcher given at this time
[2025-05-13 05:42] VITALS: BP 137/50; PULSE 62; RESP 17; TEMP 36.9; O2SAT 97
[2025-05-13 07:10] LABS: Glucose, Whole Blood 238 mg/dL (60-115)
[2025-05-13 07:26] VITALS: BP 147/85
[2025-05-13] MEDS: oxyBUTYnin chloride ER 5 MG TAB.ER.24 15 MG PO (07:26)
[2025-05-13 07:34] VITALS: BP 145/45; PULSE 75; RESP 20; TEMP 37.1; O2SAT 95
--- NOTE | 2025-05-13 08:26 | PHA.MEDREC ---
Addendum entered by Jerson Wood, Katina 05/13/25 08:44: MED REC CHECKED BY [facility] Original Note: Pharmacy Consult ? Medication Reconciliation Pharmacy has completed the medication reconciliation. Confirmed medication list with discharge list. Added medications from discharge list in case they are needed.
[2025-05-13 13:40] VITALS: BP 128/44; PULSE 72; RESP 18; TEMP 36.6; O2SAT 94
[2025-05-13 17:04] LABS: Glucose, Whole Blood 213 mg/dL (60-115)
[2025-05-13 17:04] LABS: Glucose, Whole Blood 282 mg/dL (60-115)
[2025-05-13] MEDS: Insulin Glargine,Hum.rec.anlog 100 UNIT/ML 10 ML VIAL 20 UNIT SUBCUT (20:59)
--- NOTE | 2025-05-13 21:15 | PC.NURSE ---
Spoke with Alcon MENSAH about pt receiving dialysis tomorrow morning as she received MWF. States he will look in to it further.
[2025-05-13 22:00] VITALS: BP 127/74; PULSE 74; RESP 15; TEMP 36.9; O2SAT 100
--- NOTE | 2025-05-13 23:27 | PC.NURSE ---
Took over care from BIPIN Keenan, pt is sleeping at this time.
--- NOTE | 2025-05-14 01:47 | PC.NURSE ---
pt sleeping,fall risk in place
--- NOTE | 2025-05-14 05:28 | PC.NURSE ---
pt sleeping, no sign of distress.
--- NOTE | 2025-05-14 05:51 | PC.NURSE ---
pt repositioned for comfort.
[2025-05-14 06:00] VITALS: BP 117/51; PULSE 76; RESP 18; TEMP 36.8; O2SAT 97
--- NOTE | 2025-05-14 06:13 | PC.NURSE ---
Spoke with Dr. Archuleta and Dr. Pappas about pt receiving dialysis this morning. AM PA to follow up.
--- NOTE | 2025-05-14 07:24 | PC.NURSE ---
Care of Pt assumed at change of shift. Pt resting quietly. Will contact ED PA re: Pts dialysis this AM. NAD noted at this time.
[2025-05-14 08:21] LABS: Glucose, Whole Blood 202 mg/dL (60-115)
[2025-05-14 08:36] VITALS: BP 124/49; PULSE 59; RESP 20; TEMP 36.7; O2SAT 100
[2025-05-14] MEDS: oxyBUTYnin chloride ER 5 MG TAB.ER.24 15 MG PO (08:39)
[2025-05-14 09:09] VITALS: BP 124/49
--- NOTE | 2025-05-14 09:36 | PM.IMHP ---
History of Present Illness Date of Service: 05/14/25 Chief Complaint: weakness 64-year-old female PMHx of morbid obesity, DM, HTN, bed ridden at home, ESRD on HD last dialysis was 05/11 and she had a full 4 hr session. While at dialysis she had 1 episode of hypotension. She was discharged home and then returned to the ED on wednesday feeling nauseous after dialysis, no abdominal pain, no CP, no SOB, no fever, no chills. She was placed in the observation unit with the intension that she would be tx to STR but she needs dialysis today and needed to be admitted. Review of Systems Review of Systems: Denies any recent fever chills or decrease in appetite respiratory denies any shortness of breath or cough cardiovascular denied chest pain gastrointestinal denies any dysphagia abdominal pain nausea vomiting or diarrhea genitourinary denies any dysuria frequency or hematuria musculoskeletal denies any joint pain or swelling neuropsych denies any weakness or seizures Left arm AV fistula all other systems reviewed are negative [facility] Medical History (Updated 05/14/25 @ 09:50 by Edith Moreno NP) HTN (hypertension) HLD (hyperlipidemia) Frequent UTI Anemia Acute on chronic diastolic (congestive) heart failure Type 2 diabetes mellitus with obesity Clostridium difficile diarrhea Morbid obesity Detrusor dysfunction Bladder outlet obstruction Esophagitis CKD (chronic kidney disease) stage 4, GFR 15-29 ml/min Hypothyroidism IBS (irritable bowel syndrome) Family History Father Diabetes Mother Diabetes Hypertension Breast cancer Family/Other Breast cancer Uterine cancer Surgical History History of tubal ligation Social History Household Members: None Housing: Apartment Do you presently have visiting nurse or other home services: Yes Alcohol intake: never Comment: sleeping Patient Tobacco Use Status: Former Tobacco user Smoked in Last 30 Days: No e-Cigarette/Vaping Use: Never Used Second Hand Smoke Exposure: No Use of substances other than those prescribed or required for medical reasons: No Advance Directives: Yes Advance Directives on File: Yes Advance Directives Date on File: 10/09/20 service: No Current occupational status: disabled Cognitive needs: No Hearing needs: No Vision needs: Yes Meds Allergies Allergy/AdvReac Type Severity Reaction Status Date / Time metformin (METFORMIN) Allergy Severe HIVES Verified 05/11/25 23:02 canagliflozin (From Invokana) Allergy Hives Verified 05/11/25 23:02 Active Medications: Current Medications Acetaminophen (Acetaminophen 325 Mg Tablet) 650 mg PO Q6H PRN PRN Reason: Pain, Mild 1-3,fever,headache Last Admin: 05/14/25 08:42 Dose: 650 mg Albuterol Sulfate (Albuterol Sulfate 90 Mcg 8 Gm Inhaler) 2 puff INHALE Q4H PRN PRN Reason: bronchospasm Amlodipine Besylate (Amlodipine Besylate 10 Mg Tablet) 10 mg PO DAILY [facility]; Protocol Last Admin: 05/14/25 09:09 Dose: 10 mg Calcium Carbonate (Calcium Carbonate 750 Mg Tab.Chew) 750 mg PO Q4H PRN PRN Reason: Heartburn Gabapentin (Gabapentin 100 Mg Capsule) 100 mg PO BID [facility] Last Admin: 05/14/25 08:39 Dose: 100 mg Heparin Sodium (Porcine) (Heparin Sodium,Porcine 5,000 Unit/Ml Vial) 5,000 unit SUBCUT Q12H [facility] Last Admin: 05/14/25 08:51 Dose: Not Given Insulin Glargine (Insulin Glargine,Hum.Rec.Anlog 100 Unit/Ml 10 Ml Vial) 20 unit SUBCUT BEDTIME [facility] Last Admin: 05/13/25 20:59 Dose: 20 unit Insulin Human Lispro (Insulin Lispro 100 Unit/Ml 3 Ml Vial) 0 - 18 unit SUBCUT TIDWM [facility]; Protocol Last Admin: 05/14/25 08:39 Dose: 12 unit Magnesium Hydroxide (Milk Of Magnesia 30 Ml Oral.Susp) 30 ml PO DAILY PRN PRN Reason: Constipation Melatonin (Melatonin 3 Mg Tablet) 6 mg PO BEDTIME PRN PRN Reason: Insomnia Nystatin (Nystatin Cream 15 Gm Tube) 1 appl TOPICAL BID [facility]; Protocol Last Admin: 05/14/25 09:09 Dose: 1 appl Ondansetron HCl (Ondansetron Odt 4 Mg Tab.Rapdis) 4 mg TRANSLINGU TIDAC PRN PRN Reason: Nausea Last Admin: 05/13/25 21:55 Dose: 4 mg Ondansetron HCl (Ondansetron Hcl 4 Mg/2 Ml Vial) 4 mg IVPUSH Q8H PRN PRN Reason: Nausea and Vomiting Oxybutynin Chloride (Oxybutynin Chloride Er 5 Mg Tab.Er.24) 15 mg PO DAILY [facility] Last Admin: 05/14/25 08:39 Dose: 15 mg Ropinirole HCl (Ropinirole Hcl 0.25 Mg Tablet) 0.25 mg PO BEDTIME [facility] Last Admin: 05/13/25 20:57 Dose: 0.25 mg Sodium Chloride (0.9 % Sodium Chloride Flush 3 Ml Syringe) 3 ml IVFLUSH QSHIFT [facility] Home Medications ?Medication ?Instructions ?Recorded ?Confirmed ?Last Taken ?Type amlodipine 10 mg tablet 10 mg PO DAILY 02/03/22 05/12/25 Unknown History oxybutynin chloride 15 mg 15 mg PO DAILY 03/06/22 05/12/25 Unknown History tablet,extended release 24 hr insulin lispro 100 unit/mL 10 - 18 unit subcut TIDWM 07/11/22 05/12/25 Unknown History subcutaneous solution (Humalog U-100 Insulin) nystatin 100,000 unit/gram topical 1 appl topical TID 07/11/22 05/13/25 Unknown History cream insulin glargine 100 unit/mL (3 20 unit subcut BEDTIME 05/12/25 05/12/25 Unknown History mL) subcutaneous pen (Lantus Solostar U-100 Insulin) ropinirole 0.25 mg tablet 0.25 mg PO BEDTIME 05/12/25 05/12/25 Unknown History Benzocaine-Isopropyl Alcohol 1 appl topical BID 05/13/25 05/13/25 Unknown History Topical Swabs Glucose 45% Oral Gel 1 - 2 tube PO DAILY PRN for low BG 05/13/25 05/13/25 Unknown History Milk Of Magnasia 30 ml PO DAILY PRN Constipation 05/13/25 05/13/25 Unknown History Triamcinolone 0.1% Ointment 1 appl topical TID PRN diabetic 05/13/25 05/13/25 Unknown History psoriasis acetaminophen 325 mg tablet 650 mg PO Q6H PRN Pain (Scale 05/13/25 05/13/25 Unknown History Score 4-6) bisacodyl 10 mg rectal suppository 10 mg IL DAILY PRN Constipation 05/13/25 05/13/25 Unknown History docusate sodium 100 mg capsule 100 mg PO DAILY 05/13/25 05/13/25 Unknown History epoetin silverio 20,000 unit/mL 20,000 unit subcut TH 05/13/25 05/13/25 Unknown History injection solution ferrous fumarate 325 mg (106 mg 325 mg PO DAILY 05/13/25 05/13/25 Unknown History iron) tablet glucagon 1 mg solution for 1 mg IM Q20M PRN low BG 05/13/25 05/13/25 Unknown History injection hydralazine 25 mg tablet 25 mg PO TID 05/13/25 05/13/25 Unknown History pantoprazole 20 mg tablet,delayed 20 mg PO DAILY 05/13/25 05/13/25 Unknown History release polyethylene glycol 3350 17 gram 17 g PO DAILY 05/13/25 05/13/25 Unknown History oral powder packet sennosides 8.6 mg tablet (senna) 17.2 mg PO BEDTIME 05/13/25 05/13/25 Unknown History sodium phosphates 19 gram-7 118 ml IL DAILY 05/13/25 05/13/25 Unknown History gram/118 mL enema Physical Exam Vital Signs and Narrative: Vital Signs: Last Vital Signs Temp 98.1 F 05/14/25 08:36 Pulse 59 05/14/25 08:36 Resp 20 05/14/25 08:36 BP 124/49 L 05/14/25 09:09 Pulse Ox 100 05/14/25 08:36 O2 Del Method Nasal Cannula 05/14/25 08:36 O2 Flow Rate 2 05/14/25 08:36 BMI result Body Mass Index 50.2 Appearing in no acute distress head is normocephalic atraumatic eyes pupils are PERRLA sclera is anicteric mouth throat mucous membranes are intact and moist neck is supple no lymphadenopathy, no JVD noted lung sounds are clear to auscultation heart regular rate rhythm, clear S1, S2 positive bowel sounds, abdomen is soft, nontender neuro patient is alert x3, no focal deficits Results Labs 05/11/25 23:19 05/11/25 23:19 Labs: Laboratory Results - last 24 hr 05/13/25 05/13/25 05/14/25 11:49 17:01 08:14 POC Glucose 213 H 282 H 202 H Assessment and Plan (1) CKD (chronic kidney disease) stage 4, GFR 15-29 ml/min: Status: Acute Plan 64 year old women with hx of ESRD on dialysis admitted. Patient was in Overflow for placement but requires dialysis ESRD on dialysis Follow with [facility]. plan for dialysis today DM2 ss, ada diet lantus HTN continue amlodipine Chronic pain continue Gabapentin Supermorbid obesity. BMI 50.2 Discussed importance of weight management as this may be contributing to worsening of other comorbidities DVT prophylaxis with Heparin Full code Quality Stroke Does the patient have a stroke diagnosis?: No VTE Prior VTE?: No VTE Risk Level:: Medical - moderate - high VTE Device Contraindication: Treatment Not Indicated VTE Drug Contraindication: N/A - Med Ordered
[2025-05-14 09:40] LABS: Hematocrit 28.2 % (37.0-47.0); Hemoglobin 9.6 g/dl (12.0-16.0); Mean Corpuscular HGB Conc 34.0 g/dl (31.0-35.0); Mean Corpuscular Hemoglobin 32.1 pg (27.0-33.0); Mean Corpuscular Volume 94.3 fL (80.0-98.0); NRBC Abs Auto 0.000 X10*3/uL (0.0-0.012); NRBC Pct Auto 0.0 /100WBC (0.0-0.2); Platelet Count 189 X10*3/uL (160-400); Red Blood Count 2.99 X10*6/uL (4.20-5.50); White Blood Count 8.9 X10*3/uL (4.8-10.8)
[2025-05-14 10:17] LABS: Anion Gap 15 (12-20); Blood Urea Nitrogen 65 mg/dL (9-16); Calcium 8.0 mg/dL (8.4-10.2); Carbon Dioxide 27 mmol/L (22-29); Chloride 95 mmol/L (96-108); Creatinine Clr Calc Pharmacy 15.7; Estimated Glomerular Filt Rate 8; Potassium 4.2 mmol/L (3.3-5.1); Sodium 133 mmol/L (135-145)
--- NOTE | 2025-05-14 12:15 | P.CONNP_ITS ---
History of Present Illness Reason for Consult Consult date: 05/14/25 Chief Complaint Chief complaint: Dialysis History of Present Illness Narrative: 64 y/o female with ESRD on HD MWF (sees Dr Mccarthy, goes to [facility]), last HD session was 05/11, has not missed any sessions, due today. Also with DMII, HTN, morbid obesity and bedridden at home. She had some nausea after dialysis, and pt reports left flank pain and shortness of breath as well. States these symptoms have since resolved and she feels herself, no acute complaints/concerns. Nephrology consulted for management of dialysis while hospitalized. Review of Systems Review of Systems Yes all other systems are reviewed and are negative PMFSH Past Medical History Medical History (Updated 05/14/25 @ 14:09 by Kayy Cabral, DNP, VESSEL SCRAPPER HELPER-) HTN (hypertension) HLD (hyperlipidemia) Frequent UTI Anemia Acute on chronic diastolic (congestive) heart failure Type 2 diabetes mellitus with obesity Clostridium difficile diarrhea Morbid obesity Detrusor dysfunction Bladder outlet obstruction Esophagitis CKD (chronic kidney disease) stage 4, GFR 15-29 ml/min Hypothyroidism IBS (irritable bowel syndrome) Family History Family History Father Diabetes Mother Diabetes Hypertension Breast cancer Family/Other Breast cancer Uterine cancer Surgical History Surgical History History of tubal ligation Social History Social History Household Members: None Housing: Apartment Do you presently have visiting nurse or other home services: Yes Alcohol intake: never Comment: sleeping Patient Tobacco Use Status: Former Tobacco user Smoked in Last 30 Days: No e-Cigarette/Vaping Use: Never Used Second Hand Smoke Exposure: No Use of substances other than those prescribed or required for medical reasons: No Advance Directives: Yes Advance Directives on File: Yes Advance Directives Date on File: 10/09/20 service: No Current occupational status: disabled Cognitive needs: No Hearing needs: No Vision needs: Yes Meds Allergies Allergy/AdvReac Type Severity Reaction Status Date / Time metformin (METFORMIN) Allergy Severe HIVES Verified 05/11/25 23:02 canagliflozin (From Invokana) Allergy Hives Verified 05/11/25 23:02 Active Medications: Current Medications Acetaminophen (Acetaminophen 325 Mg Tablet) 650 mg PO Q6H PRN PRN Reason: Pain, Mild 1-3,fever,headache Last Admin: 05/14/25 08:42 Dose: 650 mg Albuterol Sulfate (Albuterol Sulfate 90 Mcg 8 Gm Inhaler) 2 puff INHALE Q4H PRN PRN Reason: bronchospasm Amlodipine Besylate (Amlodipine Besylate 10 Mg Tablet) 10 mg PO DAILY [facility]; Protocol Last Admin: 05/14/25 09:09 Dose: 10 mg Calcium Carbonate (Calcium Carbonate 750 Mg Tab.Chew) 750 mg PO Q4H PRN PRN Reason: Heartburn Gabapentin (Gabapentin 100 Mg Capsule) 100 mg PO BID [facility] Last Admin: 05/14/25 08:39 Dose: 100 mg Heparin Sodium (Porcine) (Heparin Sodium,Porcine 5,000 Unit/Ml Vial) 5,000 unit SUBCUT Q12H [facility] Last Admin: 05/14/25 08:51 Dose: Not Given Insulin Glargine (Insulin Glargine,Hum.Rec.Anlog 100 Unit/Ml 10 Ml Vial) 20 unit SUBCUT BEDTIME [facility] Last Admin: 05/13/25 20:59 Dose: 20 unit Insulin Human Lispro (Insulin Lispro 100 Unit/Ml 3 Ml Vial) 0 - 18 unit SUBCUT TIDWM [facility]; Protocol Last Admin: 05/14/25 13:08 Dose: Not Given Magnesium Hydroxide (Milk Of Magnesia 30 Ml Oral.Susp) 30 ml PO DAILY PRN PRN Reason: Constipation Melatonin (Melatonin 3 Mg Tablet) 6 mg PO BEDTIME PRN PRN Reason: Insomnia Nystatin (Nystatin Cream 15 Gm Tube) 1 appl TOPICAL BID [facility]; Protocol Last Admin: 05/14/25 09:09 Dose: 1 appl Ondansetron HCl (Ondansetron Odt 4 Mg Tab.Rapdis) 4 mg TRANSLINGU TIDAC PRN PRN Reason: Nausea Last Admin: 05/13/25 21:55 Dose: 4 mg Ondansetron HCl (Ondansetron Hcl 4 Mg/2 Ml Vial) 4 mg IVPUSH Q8H PRN PRN Reason: Nausea and Vomiting Oxybutynin Chloride (Oxybutynin Chloride Er 5 Mg Tab.Er.24) 15 mg PO DAILY [facility] Last Admin: 05/14/25 08:39 Dose: 15 mg Ropinirole HCl (Ropinirole Hcl 0.25 Mg Tablet) 0.25 mg PO BEDTIME [facility] Last Admin: 05/13/25 20:57 Dose: 0.25 mg Sodium Chloride (0.9 % Sodium Chloride Flush 3 Ml Syringe) [facility] Medications ?Medication ?Instructions ?Recorded ?Confirmed ?Last Taken ?Type amlodipine 10 mg tablet 10 mg PO DAILY 02/03/2204/30 Unknown History oxybutynin chloride 15 mg 15 mg PO DAILY 03/06/2204/30 Unknown History tablet,extended release 24 hr insulin lispro 100 unit/mL 10 - 18 unit subcut TIDWM 1 09/10/21 05/12/25 Unknown History subcutaneous solution (Humalog U-100 Insulin) nystatin 100,000 unit/gram topical 1 appl topical TID 07/11/22 05/13/25 Unknown History cream insulin glargine 100 unit/mL (3 20 unit subcut BEDTIME 05/12/25 05/12/25 Unknown History mL) subcutaneous pen (Lantus Solostar U-100 Insulin) ropinirole 0.25 mg tablet 0.25 mg PO BEDTIME 05/12/25 05/12/25 Unknown History Benzocaine-Isopropyl Alcohol 1 appl topical BID 05/13/25 Unknown History Topical Swabs Glucose 45% Oral Gel 1 - 2 tube PO DAILY PRN for low BG 05/13/25 05/13/25 Unknown History Milk Of Magnasia 30 ml PO DAILY PRN Constipat ion 05/13/25 05/13/25 Unknown History Triamcinolone 0.1% Ointment 1 appl topical TID PRN lis betic 05/13/25 05/13/25 Unknown History psoriasis acetaminophen 325 mg tablet 650 mg PO Q6H PRN Pain (Sc mallory 05/13/25 05/13/25 Unknown History Score 4-6) bisacodyl 10 mg rectal suppository 10 mg TN DAILY PRN Constipation 05/13/25 05/13/25 Unknown History docusate sodium 100 mg capsule 100 mg PO DAILY 5 05/13/25 Unknown History epoetin silverio 20,000 unit/mL 20,000 unit subcut TH 04/3005/13/25 Unknown History injection solution ferrous fumarate 325 mg (106 mg 325 mg PO DAILY 05/13/25 Unknown History iron) tablet glucagon 1 mg solution for 1 mg IM Q20M PRN low BG 05/13/25 Unknown History injection hydralazine 25 mg tablet 25 mg PO TID 05/13/25 Unknown History pantoprazole 20 mg tablet,delayed 20 mg PO DAILY 05/1305/13/25 Unknown History release polyethylene glycol 3350 17 gram 17 g PO DAILY 5 05/13/25 Unknown History oral powder packet sennosides 8.6 mg tablet (senna) 17.2 mg PO BEDTIME 05/13/25 Unknown History sodium phosphates 19 gram-7 118 ml [place] DAILY 05/13/25 0 05/13/25 Unknown History gram/118 mL enema Physical Exam Vital Signs: Last Vital Signs Temp 98.2 F 05/14/25 14:00 Pulse 69 05/14/25 14:00 Resp 16 05/14/25 14:00 BP 114/51 L 05/14/25 14:00 Pulse Ox 97 05/14/25 14:00 O2 Del Method Room Air 05/14/25 14:00 O2 Flow Rate 2 05/14/25 08:36 BMI result Body Mass Index 50.2 Const General: no acute distress, alert and awake Resp Effort & Inspection: normal respiratory effort and able to speak in complete sentences Auscultation: clear to auscultation bilaterally Cardio Rate: regular rate Rhythm: regular rhythm Heart sounds: S1 normal heart sound present and S2 normal heart sound present GI Palpation (GI): Soft to palpation and nontender General: Yes no CVA tenderness Back/Spine/Pelvis Back: no CVA tenderness Skin Rashes: no rashes Extrem General: No edema Results Lab Results 05/14/25 09:04 05/14/25 09:04 Lab results: Chemistry 05/11/25 05/14/25 23:19 09:04 Sodium 138 133 L Potassium 3.8 4.2 Carbon Dioxide 26 27 BUN 27 H 65 H Creatinine 2.69 H 5.10 H* Calcium 8.5 8.0 L Hematology 05/11/25 05/14/25 23:19 09:04 WBC 12.2 H 8.9 Hgb 10.5 L 9.6 L Plt Count 167 D 189 Assessment and Plan (1) ESRD (end stage renal disease) on dialysis: Status: Acute Plan ESRD on HD MWF will get HD today as per pt's outpatient schedule LUE AV fistula with +thrill, +bruit H&H 9.6 &28.2, no indication for procrit at this time no metabolic acidosis at this time electrolytes unremarkable recommend 1.5L/24 hour fluid restriction and low phos, low sodium, low potassium diet Discussed with Dr Marquez. Procedures Date of Service Date of Service: 05/14/25
[2025-05-14 13:08] LABS: Glucose, Whole Blood 184 mg/dL (60-115)
--- NOTE | 2025-05-14 13:08 | PC.NURSE ---
assumed care while primary RN on lunch. CERTIFIED PHLEBOTOMIST did not check poc on patient prior to patient eating meal, unknown patient baseline poc, unable to given insulin safely, see MAR documentation
[2025-05-14 14:00] VITALS: BP 114/51; PULSE 69; RESP 16; TEMP 36.8; O2SAT 97
--- NOTE | 2025-05-14 15:36 | PC.NURSE ---
Call received from control systems eng Sherrell reporting availability now to give Pt treatment. Pt in need of inpatient room assignment. strategic consultant and transport made aware via [email or web address]. Inpatient admission worksheet completed.
[2025-05-14 18:08] VITALS: BMI 50.5
[2025-05-14] MEDS: Insulin Glargine,Hum.rec.anlog 100 UNIT/ML 10 ML VIAL 20 UNIT SUBCUT (22:16)
[2025-05-14] MEDS: 0.9 % Sodium Chloride Flush 3 ML SYRINGE IVFLUSH (22:16)
[2025-05-14 22:19] LABS: Glucose, Whole Blood 155 mg/dL (60-115)
--- NOTE | 2025-05-14 23:50 | P.CONNP_ITS ---
History of Present Illness Reason for Consult Consult date: 05/14/25 Chief Complaint Chief complaint: Dialysis History of Present Illness Narrative: 64 y.o. femaleESRD on intermittent hemodialysis on MWF- 4 hours and 50 minutes of dialysis via left upper extremity AV graft, other medical history includes hypertensive disease type 2 diabetes mellitus COPD/asthma diabetic nephropathy gastroesophageal reflux disease urinary incontinence restless leg syndrome hyperkalemia chronic constipation hemorrhoids. Isabel is a patient with end-stage renal disease who started dialysis on October 12, 2023. - - last dialysis was 05/11 and she had a full 4 hr session. Came to the ED on wednesday feeling nauseous after dialysis, no abdominal pain, no CP, no SOB, no fever, no chills. She was placed in the observation unit with the intension that she would be tx to STR but she needs dialysis today and is being admitted. [facility] Past Medical History Medical History (Updated 05/14/25 @ 14:55 by Azeb Perla) HTN (hypertension) HLD (hyperlipidemia) Frequent UTI Anemia Acute on chronic diastolic (congestive) heart failure Type 2 diabetes mellitus with obesity Clostridium difficile diarrhea Morbid obesity Detrusor dysfunction Bladder outlet obstruction Esophagitis CKD (chronic kidney disease) stage 4, GFR 15-29 ml/min Hypothyroidism IBS (irritable bowel syndrome) Family History Family History Father Diabetes Mother Diabetes Hypertension Breast cancer Family/Other Breast cancer Uterine cancer Surgical History Surgical History History of tubal ligation Social History Social History Household Members: None Housing: Apartment Do you presently have visiting nurse or other home services: Yes ([employer] services) Alcohol intake: never Comment: sleeping Patient Tobacco Use Status: Former Tobacco user e-Cigarette/Vaping Use: Never Used Second Hand Smoke Exposure: No Advance Directives Date on File: 10/09/20 service: No Current occupational status: disabled Cognitive needs: No Hearing needs: No Vision needs: Yes Meds Allergies Allergy/AdvReac Type Severity Reaction Status Date / Time metformin (METFORMIN) Allergy Severe HIVES Verified 05/11/25 23:02 canagliflozin (From Invokana) Allergy Hives Verified 05/11/25 23:02 Active Medications: Current Medications Acetaminophen (Acetaminophen 325 Mg Tablet) 650 mg PO Q6H PRN PRN Reason: Pain, Mild 1-3,fever,headache Last Admin: 05/14/25 22:15 Dose: 650 mg Albuterol Sulfate (Albuterol Sulfate 90 Mcg 8 Gm Inhaler) 2 puff INHALE Q4H PRN PRN Reason: bronchospasm Amlodipine Besylate (Amlodipine Besylate 10 Mg Tablet) 10 mg PO DAILY [facility]CLUD[facility]; Protocol Last Admin: 05/14/25 09:09 Dose: 10 mg Calcium Carbonate (Calcium Carbonate 750 Mg Tab.Chew) 750 mg PO Q4H PRN PRN Reason: Heartburn Gabapentin (Gabapentin 100 Mg Capsule) 100 mg PO BID COUNT [facility]CLUDES [facility] Last Admin: 05/14/25 22:16 Dose: 100 mg Heparin Sodium (Porcine) (Heparin Sodium,Porcine 5,000 Unit/Ml Vial) 5,000 unit SUBCUT Q12H COUNT [facility]CLUDES [facility] Last Admin: 05/14/25 21:18 Dose: Not Given Insulin Glargine (Insulin Glargine,Hum.Rec.Anlog 100 Unit/Ml 10 Ml Vial) 20 unit SUBCUT BEDTIME COUNT INCLUDES [facility] Last Admin: 05/14/25 22:16 Dose: 20 unit Insulin Human Lispro (Insulin Lispro 100 Unit/Ml 3 Ml Vial) 0 - 18 unit SUBCUT TIDWM COUNT INCLUDES [facility]; Protocol Last Admin: 05/14/25 17:33 Dose: Not Given Magnesium Hydroxide (Milk Of Magnesia 30 Ml Oral.Susp) 30 ml PO DAILY PRN PRN Reason: Constipation Melatonin (Melatonin 3 Mg Tablet) 6 mg PO BEDTIME PRN PRN Reason: Insomnia Nystatin (Nystatin Cream 15 Gm Tube) 1 appl TOPICAL BID COUNT [facility]CLUDES [facility]; Protocol Last Admin: 05/14/25 22:43 Dose: Not Given Ondansetron HCl (Ondansetron Odt 4 Mg Tab.Rapdis) 4 mg TRANSLINGU TIDAC PRN PRN Reason: Nausea Last Admin: 05/13/25 21:55 Dose: 4 mg Ondansetron HCl (Ondansetron Hcl 4 Mg/2 Ml Vial) 4 mg IVPUSH Q8H PRN PRN Reason: Nausea and Vomiting Oxybutynin Chloride (Oxybutynin Chloride Er 5 Mg Tab.Er.24) 15 mg PO DAILY COUNT [facility]CLUDES [facility] Last Admin: 05/14/25 08:39 Dose: 15 mg Ropinirole HCl (Ropinirole Hcl 0.25 Mg Tablet) 0.25 mg PO BEDTIME COUNT [facility]CLUDES [facility] Last Admin: 05/14/25 22:16 Dose: 0.25 mg Sodium Chloride (0.9 % Sodium Chloride Flush 3 Ml Syringe) 3 ml IVFLUSH QSHIFT COUNT INCLUDES [facility] Last Admin: 05/14/25 22:16 Dose: 3 ml Home Medications ?Medication ?Instructions ?Recorded ?Confirmed ?Last Taken ?Type amlodipine 10 mg tablet 10 mg PO DAILY 02/03/2204/30 Unknown History oxybutynin chloride 15 mg 15 mg PO DAILY 03/06/2204/30 Unknown History tablet,extended release 24 hr insulin lispro 100 unit/mL 10 - 18 unit subcut TIDWM 1 09/10/21 05/12/25 Unknown History subcutaneous solution (Humalog U-100 Insulin) nystatin 100,000 unit/gram topical 1 appl topical TID 07/11/22 05/13/25 Unknown History cream insulin glargine 100 unit/mL (3 20 unit subcut BEDTIME 05/12/25 05/12/25 Unknown History mL) subcutaneous pen (Lantus Solostar U-100 Insulin) ropinirole 0.25 mg tablet 0.25 mg PO BEDTIME 05/12/25 05/12/25 Unknown History Benzocaine-Isopropyl Alcohol 1 appl topical BID 05/13/25 Unknown History Topical Swabs Glucose 45% Oral Gel 1 - 2 tube PO DAILY PRN for low BG 05/13/25 05/13/25 Unknown History Milk Of Magnasia 30 ml PO DAILY PRN Constipat ion 05/13/25 05/13/25 Unknown History Triamcinolone 0.1% Ointment 1 appl topical TID PRN lis betic 05/13/25 05/13/25 Unknown History psoriasis acetaminophen 325 mg tablet 650 mg PO Q6H PRN Pain (Sc mallory 05/13/25 05/13/25 Unknown History Score 4-6) bisacodyl 10 mg rectal suppository 10 mg LA DAILY PRN Constipation 05/13/25 05/13/25 Unknown History docusate sodium 100 mg capsule 100 mg PO DAILY 5 05/13/25 Unknown History epoetin silverio 20,000 unit/mL 20,000 unit subcut TH 04/3005/13/25 Unknown History injection solution ferrous fumarate 325 mg (106 mg 325 mg PO DAILY 05/13/25 Unknown History iron) tablet glucagon 1 mg solution for 1 mg IM Q20M PRN low BG 05/13/25 Unknown History injection hydralazine 25 mg tablet 25 mg PO TID 05/13/25 Unknown History pantoprazole 20 mg tablet,delayed 20 mg PO DAILY 05/1305/13/25 Unknown History release polyethylene glycol 3350 17 gram 17 g PO DAILY 5 05/13/25 Unknown History oral powder packet sennosides 8.6 mg tablet (senna) 17.2 mg PO BEDTIME 05/13/25 Unknown History sodium phosphates 19 gram-7 118 ml LA DAILY 05/13/25 0 05/13/25 Unknown History gram/118 mL enema Physical Exam Exam Exam: cvs: s1s2 RS; cTA Abd: soft Vital Signs: Last Vital Signs Temp 98.2 F 05/14/25 14:00 Pulse 69 05/14/25 14:00 Resp 16 05/14/25 14:00 BP 114/51 L 05/14/25 14:00 Pulse Ox 97 05/14/25 14:00 O2 Del Method Room Air 05/14/25 14:00 O2 Flow Rate 2 05/14/25 08:36 BMI result Body Mass Index 50.5 Results Lab Results 05/14/25 09:04 05/14/25 09:04 Lab results: Chemistry 05/14/25 09:04 Sodium 133 L Potassium 4.2 Carbon Dioxide 27 BUN 65 H Creatinine 5.10 H* Calcium 8.0 L Hematology 05/11/25 05/14/25 23:19 09:04 WBC 12.2 H 8.9 Hgb 10.5 L 9.6 L Plt Count 167 D 189 Assessment and Plan (1) ESRD (end stage renal disease) on dialysis: Status: Acute Plan ESRD (end stage renal disease) - resume dialysis therapy while inpatient - IHD via left upper extremity AV graft 4 hours - ultrafiltration/fluid removal as per Crit-Line guidance. - Fortunately maintain O2 sats 99% on 4 L nasal cannula, suggest to resume her outpatient regimen including torsemide high-dose 100 mg twice daily. - Hypertension on amlodipine 10 mg daily. hydralazine 25 mg 3 times a day PRN - Diabetes resume her outpatient insulin regimen. - Potassium is controlled no need for potassium binding resin. Procedures Date of Service Date of Service: 05/14/25
[2025-05-15 03:55] VITALS: BP 115/58; PULSE 57; RESP 17; TEMP 35.9; O2SAT 94
[2025-05-15 06:48] LABS: Anion Gap 17 (12-20); Blood Urea Nitrogen 27 mg/dL (9-16); Calcium 8.1 mg/dL (8.4-10.2); Carbon Dioxide 22 mmol/L (22-29); Chloride 98 mmol/L (96-108); Creatinine Clr Calc Pharmacy 26.9; Estimated Glomerular Filt Rate 16; Potassium 4.6 mmol/L (3.3-5.1); Sodium 132 mmol/L (135-145)
[2025-05-15 07:20] LABS: Hematocrit 26.5 % (37.0-47.0); Hemoglobin 9.3 g/dl (12.0-16.0); Mean Corpuscular HGB Conc 35.1 g/dl (31.0-35.0); Mean Corpuscular Hemoglobin 32.5 pg (27.0-33.0); Mean Corpuscular Volume 92.7 fL (80.0-98.0); NRBC Abs Auto 0.000 X10*3/uL (0.0-0.012); NRBC Pct Auto 0.0 /100WBC (0.0-0.2); PLT CLUMP 1; Red Blood Count 2.86 X10*6/uL (4.20-5.50)
[2025-05-15 07:39] LABS: Glucose, Whole Blood 175 mg/dL (60-115)
[2025-05-15 07:44] VITALS: BP 146/61; PULSE 59; RESP 18; TEMP 36.3; O2SAT 94
[2025-05-15] MEDS: oxyBUTYnin chloride ER 5 MG TAB.ER.24 15 MG PO (08:01)
[2025-05-15] MEDS: 0.9 % Sodium Chloride Flush 3 ML SYRINGE IVFLUSH ×3 (08:02→19:38)
--- NOTE | 2025-05-15 08:15 | HO.PM.IMPN ---
Subjective Subjective Date of Service: 05/15/25 Interval History: no complaints Physical Exam Exam: Exam: General: AO X 3, no acute distress Resp: CTA bilateral, no accessory muscles used CVS: S1,S2,RRR GI: soft, non tender, non distended Neuro: motor grossly intact, alert Psych: appropriate affect, appropriate insight Vital Signs: Vital Signs: Last Vital Signs Temp 97.4 F 05/15/25 07:44 Pulse 59 05/15/25 07:44 Resp 18 05/15/25 07:44 BP 146/61 H 05/15/25 07:44 Pulse Ox 94 05/15/25 07:44 O2 Del Method Room Air 05/15/25 07:44 O2 Flow Rate 2 05/14/25 08:36 BMI result Body Mass Index 50.5 Objective Data Active Medications Acetaminophen (Acetaminophen 325 Mg Tablet) 650 mg PO Q6H PRN PRN Reason: Pain, Mild 1-3,fever,headache Last Admin: 05/15/25 08:03 Dose: 650 mg Documented By: MARVA Albuterol Sulfate (Albuterol Sulfate 90 Mcg 8 Gm Inhaler) 2 puff INHALE Q4H PRN PRN Reason: bronchospasm Amlodipine Besylate (Amlodipine Besylate 10 Mg Tablet) 10 mg PO DAILY [facility]; Protocol Last Admin: 05/15/25 08:01 Dose: 10 mg Documented By: MARVA Calcium Carbonate (Calcium Carbonate 750 Mg Tab.Chew) 750 mg PO Q4H PRN PRN Reason: Heartburn Gabapentin (Gabapentin 100 Mg Capsule) 100 mg PO BID [facility] Last Admin: 05/15/25 08:00 Dose: 100 mg Documented By: MARVA Heparin Sodium (Porcine) (Heparin Sodium,Porcine 5,000 Unit/Ml Vial) 5,000 unit SUBCUT Q12H [facility] Last Admin: 05/15/25 08:02 Dose: Not Given Documented By: MARVA Non-Admin Reason: Patient Refused Insulin Glargine (Insulin Glargine,Hum.Rec.Anlog 100 Unit/Ml 10 Ml Vial) 20 unit SUBCUT BEDTIME [facility] Last Admin: 05/14/25 22:16 Dose: 20 unit Documented By: BETH Insulin Human Lispro (Insulin Lispro 100 Unit/Ml 3 Ml Vial) 0 - 18 unit SUBCUT TIDWM [facility]; Protocol Last Admin: 05/15/25 08:00 Dose: 10 unit Documented By: MARVA Magnesium Hydroxide (Milk Of Magnesia 30 Ml Oral.Susp) 30 ml PO DAILY PRN PRN Reason: Constipation Melatonin (Melatonin 3 Mg Tablet) 6 mg PO BEDTIME PRN PRN Reason: Insomnia Nystatin (Nystatin Cream 15 Gm Tube) 1 appl TOPICAL BID [facility]; Protocol Last Admin: 05/15/25 08:02 Dose: 1 appl Documented By: MARVA Ondansetron HCl (Ondansetron Odt 4 Mg Tab.Rapdis) 4 mg TRANSLINGU TIDAC PRN PRN Reason: Nausea Last Admin: 05/13/25 21:55 Dose: 4 mg Documented By: JEFF Ondansetron HCl (Ondansetron Hcl 4 Mg/2 Ml Vial) 4 mg IVPUSH Q8H PRN PRN Reason: Nausea and Vomiting Last Admin: 05/15/25 04:37 Dose: 4 mg Documented By: BETH Oxybutynin Chloride (Oxybutynin Chloride Er 5 Mg Tab.Er.24) 15 mg PO DAILY [facility] Last Admin: 05/15/25 08:01 Dose: 15 mg Documented By: MARVA Ropinirole HCl (Ropinirole Hcl 0.25 Mg Tablet) 0.25 mg PO BEDTIME [facility] Last Admin: 05/14/25 22:16 Dose: 0.25 mg Documented By: BETH Sodium Chloride (0.9 % Sodium Chloride Flush 3 Ml Syringe) 3 ml IVFLUSH QSHIFT [facility] Last Admin: 05/15/25 08:02 Dose: 3 ml Documented By: MARVA Labs 05/14/25 09:04 05/15/25 05:56 Labs: Laboratory Results - last 24 hr 05/14/25 05/14/25 05/14/25 08:14 09:04 13:05 MCV 94.3 MCH 32.1 MCHC 34.0 RDW 13.2 Plt Count 189 MPV 10.1 Absolute Nucleated RBC 0.000 Nucleated RBC % (auto) 0.0 Anion Gap 15 Estim Creat Clear Calc 15.7 Estimated GFR 8 POC Glucose 202 H 184 H Random Glucose 224 H Calcium 8.0 L 09/05/15/25 05/15/25 22:15 05:56 07:35 MCV MCH MCHC RDW Plt Count MPV Absolute Nucleated RBC Nucleated RBC % (auto) Anion Gap 17 Estim Creat Clear Calc 26.9 Estimated GFR 16 POC Glucose 155 H 175 H Random Glucose 211 H Calcium 8.1 L Assessment and Plan (1) T2DM (type 2 diabetes mellitus): Status: Acute Plan 64F PMH stage renal disease, morbid obesity, bedridden, hypertension, diabetes presented on 05/12/2025 with weakness and hypotension. Plan was for placement, however patient is end-stage renal disease so was admitted on 05/14/2025 for hemodialysis End-stage renal disease Continue with hemodialysis Follows with [facility] Diabetes Basal bolus insulin Morbid obesity Weight loss recommended Hypertension Amlodipine Chronic pain due to diabetic neuropathy Continue gabapentin DVT prophylaxis with heparin subQ Full code reason for continued hospitalization: Patient unable to manage herself at home, placement pending Quality Stroke Does the patient have a stroke diagnosis?: No VTE Prior VTE?: No VTE Risk Level:: Medical - moderate - high VTE Device Contraindication: Treatment Not Indicated VTE Drug Contraindication: N/A - Med Ordered
[2025-05-15 08:22] LABS: Platelet Count 162 X10*3/uL (160-400); White Blood Count 8.1 X10*3/uL (4.8-10.8)
--- NOTE | 2025-05-15 11:27 | MHC.CM.PN ---
Addendum entered by Claudia Boyer 05/17/25 16:08: [facility] IN [place] [facility]ALLY ACCEPTING, HOWEVER, PT WILL NEED AN HD SLOT CLOSER SO THAT HER MART TRANSPORT WILL TAKE HER THEY HAVE A 50 MILE LIMIT. CM WILL ATTEMPT TO FIND HER A CLOSER HD CLINIC. Addendum entered by Claudia Boyer 05/17/25 14:46: PT AWAITING HALFWAY PLACEMENT WHILE WORKING ON [facility] REFERRAL BROADCAST TO ALL SNFS WITH HD WITHIN 200 MILES, ALL HAVE DECLINED EXCEPT 14 THAT ARE STILL REVIEWING. Original Note: CM MET WITH PT WITH A STEWARD/STEWARDESS, HOWEVER PT COMMUNICATED IN [place] THROUGHOUT THE ASSESSMENT PT REPORTS SHE LIVES ALONE AND USUALLY HAS AT LEAST 3 TUBE PULLER, HOWEVER SHE HAS BEEN IN HOSPITALS AND SNFS FOR SEVERAL MONTHS SO TWO HAVE QUIT SHE SAYS SHE WAS AT [facility] IN [place] AND WAS THEN SENT HOME, HOWEVER ONCE HOME, REALIZED SHE DID NOT HAVE ENOUGH CARE SHE SAYS SHE CAME TO THE ED FOR MEDICAL CONCERNS, BUT NOW CANNOT RETURN HOME BECAUSE SHE IS BED BOUND AT [facility] AND DOES NOT HAVE TUBE PULLER TO COVER HER 63 HOURS PER WEEK SHE SAYS SHE WENT TO ONE OUTPATIENT HD SESSION AT [facility] IN [place]-SHE GOES VIA BLS SHE NO LONGER HAS A WHEEL CHAIR, SO STAYS IN BED, SHE DOES HAVE A KIRAN LIFT THOUGH AND HOPES TO GET A W/C IN THE FUTURE HCP ON FILE PCP: AMANDA HINTON IMM DELIVERED PT UNDERSTANDS HALFWAY PLACEMENT WILL BE SOUGHT AND IT MAY BE OUT OF THE AREA SHE WILL CONTINUE TO WORK ON HIRING NEW TUBE PULLER WELL BLS TRANSPORT WILL BE REQUIRED
[2025-05-15 11:33] LABS: Glucose, Whole Blood 219 mg/dL (60-115)
--- NOTE | 2025-05-15 12:30 | PM.PNNEP ---
Subjective Subjective Date of Service: 05/15/25 Interval history: no events noted. Patient reports she is feeling well today. Reports she has some concerns about setting up a INTERNATIONAL TRADE TEACHER for care at home and is working on this with the hospital briefcase sewer. Reports she had an episode of diarrhea this morning, states this is a chronic issue for her. Otherwise denies new complaints/concerns. Physical Exam Vital Signs: Vital Signs: Last Vital Signs Temp 97.4 F 05/15/25 07:44 Pulse 59 05/15/25 07:44 Resp 18 05/15/25 07:44 BP 120/60 05/15/25 15:00 Pulse Ox 94 05/15/25 07:44 O2 Del Method Room Air 05/15/25 07:44 O2 Flow Rate 2 05/14/25 08:36 BMI result Body Mass Index 50.5 Const: General: no acute distress, alert and awake Resp: Effort & Inspection: normal respiratory effort and able to speak in complete sentences Auscultation: clear to auscultation bilaterally Cardio: Rate: regular rate Rhythm: regular rhythm Heart sounds: S1 normal heart sound present and S2 normal heart sound present GI: Palpation (GI): Soft to palpation and nontender : General: Yes no CVA tenderness Back/Spine/Pelvis: Back: no CVA tenderness Skin: Rashes: no rashes Extrem: General: No edema Objective Data Labs 05/15/25 05:56 05/15/25 05:56 Labs: Laboratory Results - last 24 hr 05/14/25 05/15/25 05/15/25 22:15 05:56 07:35 WBC 8.1 RBC 2.86 L Hgb 9.3 L Hct 26.5 L MCV 92.7 MCH 32.5 MCHC 35.1 H RDW 13.1 Plt Count 162 MPV 10.7 Absolute Nucleated RBC 0.000 Nucleated RBC % (auto) 0.0 Sodium 132 L Potassium 4.6 Chloride 98 Carbon Dioxide 22 Anion Gap 17 BUN 27 H Creatinine 2.99 H Estim Creat Clear Calc 26.9 Estimated GFR 16 POC Glucose 155 H 175 H Random Glucose 211 H Calcium 8.1 L 05/15/25 11:29 WBC RBC Hgb Hct MCV MCH MCHC RDW Plt Count MPV Absolute Nucleated RBC Nucleated RBC % (auto) Sodium Potassium Chloride Carbon Dioxide Anion Gap BUN Creatinine Estim Creat Clear Calc Estimated GFR POC Glucose 219 H Random Glucose Calcium Procedures Date of Service Date of Service: 05/15/25 Assessment & Plan Assessment and plan (1) ESRD (end stage renal disease) on dialysis: Status: Acute Plan ESRD on HD MWF, had HD yesterday per her outpatient schedule. LUE AV fistula with +thrill, +bruit H&H 9.3 & 26.5, no indication for procrit at this time no metabolic acidosis at this time electrolytes unremarkable recommend 1.5L/24 hour fluid restriction and low phos, low sodium, low potassium diet Discussed with Dr Marquez. Time Spent With Patient Time: Total time managing care of this patient today ____ minutes. Progress Note: Quality Stroke Does the patient have a stroke diagnosis?: No
[2025-05-15 15:00] VITALS: BP 120/60
[2025-05-15 15:59] LABS: CDiff Gene PCR NEGATIVE (Negative)
[2025-05-15 16:00] VITALS: BP 123/58; PULSE 64; RESP 18; TEMP 36.3; O2SAT 97
[2025-05-15 16:56] LABS: Glucose, Whole Blood 226 mg/dL (60-115)
[2025-05-15 19:13] VITALS: BP 124/61; PULSE 65; RESP 18; TEMP 36.2; O2SAT 99
[2025-05-15 20:10] LABS: Glucose, Whole Blood 219 mg/dL (60-115)
[2025-05-15] MEDS: Insulin Glargine,Hum.rec.anlog 100 UNIT/ML 10 ML VIAL 20 UNIT SUBCUT (20:23)
[2025-05-16 03:09] VITALS: BP 136/64; PULSE 57; RESP 18; TEMP 36.2; O2SAT 96
[2025-05-16 06:38] LABS: Hematocrit 26.4 % (37.0-47.0); Hemoglobin 9.2 g/dl (12.0-16.0); Mean Corpuscular HGB Conc 34.8 g/dl (31.0-35.0); Mean Corpuscular Hemoglobin 32.6 pg (27.0-33.0); Mean Corpuscular Volume 93.6 fL (80.0-98.0); NRBC Abs Auto 0.000 X10*3/uL (0.0-0.012); NRBC Pct Auto 0.0 /100WBC (0.0-0.2); Platelet Count 170 X10*3/uL (160-400); Red Blood Count 2.82 X10*6/uL (4.20-5.50); White Blood Count 8.8 X10*3/uL (4.8-10.8)
[2025-05-16 07:39] LABS: Creatinine Clr Calc Pharmacy 18.6; Estimated Glomerular Filt Rate 10
[2025-05-16 07:40] LABS: Anion Gap 15 (12-20); Blood Urea Nitrogen 45 mg/dL (9-16); Calcium 8.2 mg/dL (8.4-10.2); Carbon Dioxide 24 mmol/L (22-29); Chloride 99 mmol/L (96-108); Potassium 4.1 mmol/L (3.3-5.1); Sodium 134 mmol/L (135-145)
--- NOTE | 2025-05-16 08:51 | W.PM.DNNEP ---
Subjective Subjective Date of Service: 05/16/25 This patient was seen during dialysis. Interval history: patient resting comfortably on dialysis this morning. no new events noted. Physical Exam Vital Signs: Vital Signs: Last Vital Signs Temp 97.1 F 05/16/25 03:09 Pulse 57 05/16/25 03:09 Resp 18 05/16/25 03:09 BP 136/64 05/16/25 03:09 Pulse Ox 96 05/16/25 03:09 O2 Del Method Room Air 05/16/25 03:09 O2 Flow Rate 2 05/14/25 08:36 BMI result Body Mass Index 50.5 Const: General: no acute distress, alert and awake Resp: Effort & Inspection: normal respiratory effort and able to speak in complete sentences Auscultation: clear to auscultation bilaterally Cardio: Rate: regular rate Rhythm: regular rhythm Heart sounds: S1 normal heart sound present and S2 normal heart sound present GI: Palpation (GI): Soft to palpation and nontender : General: Yes no CVA tenderness Back/Spine/Pelvis: Back: no CVA tenderness Skin: Rashes: no rashes Extrem: General: No edema Assessment & Plan Assessment and plan (1) ESRD (end stage renal disease) on dialysis: Status: Acute Plan ESRD on HD MWF LUE AV fistula with +thrill, +bruit H&H 9.2 & 26.4, no indication for procrit at this time no metabolic acidosis at this time electrolytes unremarkable; phosphorus 5.5, continue to monitor- low phos diet recommend 1.5L/24 hour fluid restriction and low phos, low sodium, low potassium diet Discussed with Dr Marquez. Time Spent With Patient Time: Total time managing care of this patient today ____ minutes. Procedures Date of Service Date of Service: 05/16/25
[2025-05-16 11:16] LABS: Glucose, Whole Blood 208 mg/dL (60-115)
[2025-05-16 11:18] VITALS: BP 130/60; PULSE 67; RESP 17; TEMP 36.6; O2SAT 97
[2025-05-16] MEDS: oxyBUTYnin chloride ER 5 MG TAB.ER.24 15 MG PO (11:44)
--- NOTE | 2025-05-16 12:58 | HO.PM.IMPN ---
Subjective Subjective Date of Service: 05/16/25 Interval History: no complaints Review of Systems Review of Systems: Yes all other systems are reviewed and are negative Physical Exam Exam: Exam: General: AO X 3, no acute distress Resp: CTA bilateral, no accessory muscles used CVS: S1,S2,RRR GI: soft, non tender, non distended Neuro: motor grossly intact, alert Psych: appropriate affect, appropriate insight Vital Signs: Vital Signs: Last Vital Signs Temp 98 F 05/16/25 11:18 Pulse 67 05/16/25 11:18 Resp 17 05/16/25 11:18 BP 130/60 05/16/25 11:18 Pulse Ox 97 05/16/25 11:18 O2 Del Method Room Air 05/16/25 11:18 O2 Flow Rate 2 05/14/25 08:36 BMI result Body Mass Index 50.5 Objective Data Active Medications Acetaminophen (Acetaminophen 325 Mg Tablet) 650 mg PO Q6H PRN PRN Reason: Pain, Mild 1-3,fever,headache Last Admin: 05/16/25 11:47 Dose: 650 mg Documented By: JOSHUA Albuterol Sulfate (Albuterol Sulfate 90 Mcg 8 Gm Inhaler) 2 puff INHALE Q4H PRN PRN Reason: bronchospasm Amlodipine Besylate (Amlodipine Besylate 10 Mg Tablet) 10 mg PO DAILY [facility]; Protocol Last Admin: 05/16/25 11:45 Dose: 10 mg Documented By: JOSHUA Calcium Carbonate (Calcium Carbonate 750 Mg Tab.Chew) 750 mg PO Q4H PRN PRN Reason: Heartburn Last Admin: 05/15/25 12:05 Dose: 750 mg Documented By: MARVA Gabapentin (Gabapentin 100 Mg Capsule) 100 mg PO BID [facility] Last Admin: 05/16/25 11:05 Dose: Not Given Documented By: JOSHUA Non-Admin Reason: Off unit: Dialysis Heparin Sodium (Porcine) (Heparin Sodium,Porcine 5,000 Unit/Ml Vial) 5,000 unit SUBCUT Q12H [facility] Last Admin: 05/16/25 10:02 Dose: Not Given Documented By: JOSHUA Non-Admin Reason: Patient Refused Hydralazine HCl (Hydralazine Hcl 25 Mg Tablet) 25 mg PO TID [facility]; Protocol Last Admin: 05/16/25 11:05 Dose: Not Given Documented By: JOSHUA Non-Admin Reason: Off unit: Dialysis Insulin Glargine (Insulin Glargine,Hum.Rec.Anlog 100 Unit/Ml 10 Ml Vial) 20 unit SUBCUT BEDTIME [facility] Last Admin: 05/15/25 20:23 Dose: 20 unit Documented By: MOLLY Insulin Human Lispro (Insulin Lispro 100 Unit/Ml 3 Ml Vial) 0 - 18 unit SUBCUT TIDWM [facility]; Protocol Last Admin: 05/16/25 11:44 Dose: 12 unit Documented By: JOSHUA Loperamide HCl (Loperamide Hcl 2 Mg Capsule) 2 mg PO Q4H PRN PRN Reason: Diarrhea Last Admin: 05/15/25 17:03 Dose: 2 mg Documented By: MARVA Magnesium Hydroxide (Milk Of Magnesia 30 Ml Oral.Susp) 30 ml PO DAILY PRN PRN Reason: Constipation Melatonin (Melatonin 3 Mg Tablet) 6 mg PO BEDTIME PRN PRN Reason: Insomnia Nystatin (Nystatin Cream 15 Gm Tube) 1 appl TOPICAL BID [facility]; Protocol Last Admin: 05/16/25 11:05 Dose: Not Given Documented By: JOSHUA Non-Admin Reason: Off unit: Dialysis Ondansetron HCl (Ondansetron Odt 4 Mg Tab.Rapdis) 4 mg TRANSLINGU TIDAC PRN PRN Reason: Nausea Last Admin: 05/13/25 21:55 Dose: 4 mg Documented By: JEFF Ondansetron HCl (Ondansetron Hcl 4 Mg/2 Ml Vial) 4 mg IVPUSH Q8H PRN PRN Reason: Nausea and Vomiting Last Admin: 05/15/25 04:37 Dose: 4 mg Documented By: BETH Oxybutynin Chloride (Oxybutynin Chloride Er 5 Mg Tab.Er.24) 15 mg PO DAILY [facility] Last Admin: 05/16/25 11:44 Dose: 15 mg Documented By: JOSHUA Ropinirole HCl (Ropinirole Hcl 0.25 Mg Tablet) 0.25 mg PO BEDTIME [facility] Last Admin: 05/15/25 19:38 Dose: 0.25 mg Documented By: MOLLY Sodium Chloride (0.9 % Sodium Chloride Flush 3 Ml Syringe) 3 ml IVFLUSH QSHIFT [facility] Last Admin: 05/16/25 11:49 Dose: Not Given Documented By: JOSHUA Non-Admin Reason: Previously Administered Labs 05/16/25 06:01 05/16/25 06:01 Labs: Laboratory Results - last 24 hr 05/15/25 05/15/25 05/15/25 14:45 16:53 20:02 MCV MCH MCHC RDW Plt Count MPV Absolute Nucleated RBC Nucleated RBC % (auto) Anion Gap Estim Creat Clear Calc Estimated GFR POC Glucose 226 H 219 H Random Glucose Calcium Phosphorus C. difficile Tox B Gene NEGATIVE 05/16/25 05/16/25 06:01 11:12 MCV 93.6 MCH 32.6 MCHC 34.8 RDW 13.2 Plt Count 170 MPV 10.6 Absolute Nucleated RBC 0.000 Nucleated RBC % (auto) 0.0 Anion Gap 15 Estim Creat Clear Calc 18.6 Estimated GFR 10 POC Glucose 208 H Random Glucose 224 H Calcium 8.2 L Phosphorus 5.5 H C. difficile Tox B Gene Assessment and Plan (1) T2DM (type 2 diabetes mellitus): Status: Acute Plan 64F PMH stage renal disease, morbid obesity, bedridden, hypertension, diabetes presented on 05/12/2025 with weakness and hypotension. Plan was for placement, however patient is end-stage renal disease so was admitted on 05/14/2025 for hemodialysis End-stage renal disease Continue with hemodialysis Follows with [facility] Diabetes Basal bolus insulin Morbid obesity Weight loss recommended Hypertension Amlodipine Chronic pain due to diabetic neuropathy Continue gabapentin DVT prophylaxis with heparin subQ Full code reason for continued hospitalization: Patient unable to manage herself at home, placement pending Quality Stroke Does the patient have a stroke diagnosis?: No VTE Prior VTE?: No VTE Risk Level:: Medical - moderate - high VTE Device Contraindication: Treatment Not Indicated VTE Drug Contraindication: N/A - Med Ordered
[2025-05-16 15:18] VITALS: BP 142/63; PULSE 65; RESP 16; TEMP 36; O2SAT 98
[2025-05-16] MEDS: 0.9 % Sodium Chloride Flush 3 ML SYRINGE IVFLUSH ×2 (15:34→20:06)
[2025-05-16 16:15] LABS: Glucose, Whole Blood 221 mg/dL (60-115)
[2025-05-16 19:13] VITALS: BP 125/59; PULSE 72; RESP 18; TEMP 36.1; O2SAT 96
[2025-05-16 20:55] LABS: Glucose, Whole Blood 213 mg/dL (60-115)
[2025-05-16] MEDS: Insulin Glargine,Hum.rec.anlog 100 UNIT/ML 10 ML VIAL 20 UNIT SUBCUT (20:59)
[2025-05-17 03:01] VITALS: BP 100/51; PULSE 68; RESP 16; TEMP 35.9; O2SAT 98
[2025-05-17 07:36] VITALS: BP 140/64; PULSE 63; RESP 16; TEMP 37.1; O2SAT 97
[2025-05-17 07:43] LABS: Glucose, Whole Blood 261 mg/dL (60-115)
--- NOTE | 2025-05-17 07:45 | P.PNIM_ITS ---
Subjective Subjective Date of Service: 05/17/25 Interval History: no complaints Review of Systems Review of Systems: Yes all other systems are reviewed and are negative Physical Exam 2 Exam: Exam: General: AO X 3, no acute distress Resp: CTA bilateral, no accessory muscles used CVS: S1,S2,RRR GI: soft, non tender, non distended Neuro: motor grossly intact, alert Psych: appropriate affect, appropriate insight Vital Signs: Vital Signs: Last Vital Signs Temp 98.8 F 05/17/25 07:36 Pulse 63 05/17/25 07:36 Resp 16 05/17/25 07:36 BP 140/64 H 05/17/25 07:36 Pulse Ox 97 05/17/25 07:36 O2 Del Method Room Air 05/17/25 07:36 O2 Flow Rate 2 05/14/25 08:36 BMI result Body Mass Index 50.5 Objective Data Active Medications Acetaminophen (Acetaminophen 325 Mg Tablet) 650 mg PO Q6H PRN PRN Reason: Pain, Mild 1-3,fever,headache Last Admin: 05/16/25 20:08 Dose: 650 mg Documented By: MOLLY Albuterol Sulfate (Albuterol Sulfate 90 Mcg 8 Gm Inhaler) 2 puff INHALE Q4H PRN PRN Reason: bronchospasm Amlodipine Besylate (Amlodipine Besylate 10 Mg Tablet) 10 mg PO DAILY [facility]; Protocol Last Admin: 05/16/25 11:45 Dose: 10 mg Documented By: JOSHUA Calcium Carbonate (Calcium Carbonate 750 Mg Tab.Chew) 750 mg PO Q4H PRN PRN Reason: Heartburn Last Admin: 05/15/25 12:05 Dose: 750 mg Documented By: MARVA Gabapentin (Gabapentin 100 Mg Capsule) 100 mg PO BID [facility] Last Admin: 05/16/25 20:07 Dose: 100 mg Documented By: MOLLY Heparin Sodium (Porcine) (Heparin Sodium,Porcine 5,000 Unit/Ml Vial) 5,000 unit SUBCUT Q12H [facility] Last Admin: 05/16/25 19:31 Dose: Not Given Documented By: MOLLY Non-Admin Reason: Patient Refused Hydralazine HCl (Hydralazine Hcl 25 Mg Tablet) 25 mg PO TID [facility]; Protocol Last Admin: 05/16/25 20:08 Dose: 25 mg Documented By: MOLLY Insulin Glargine (Insulin Glargine,Hum.Rec.Anlog 100 Unit/Ml 10 Ml Vial) 20 unit SUBCUT BEDTIME [facility] Last Admin: 05/16/25 20:59 Dose: 20 unit Documented By: MOLLY Insulin Human Lispro (Insulin Lispro 100 Unit/Ml 3 Ml Vial) 0 - 18 unit SUBCUT TIDWM [facility]; Protocol Last Admin: 05/16/25 16:34 Dose: 12 unit Documented By: JOSHUA Loperamide HCl (Loperamide Hcl 2 Mg Capsule) 2 mg PO Q4H PRN PRN Reason: Diarrhea Last Admin: 05/15/25 17:03 Dose: 2 mg Documented By: MARVA Magnesium Hydroxide (Milk Of Magnesia 30 Ml Oral.Susp) 30 ml PO DAILY PRN PRN Reason: Constipation Melatonin (Melatonin 3 Mg Tablet) 6 mg PO BEDTIME PRN PRN Reason: Insomnia Nystatin (Nystatin Cream 15 Gm Tube) 1 appl TOPICAL BID [facility]; Protocol Last Admin: 05/16/25 21:00 Dose: 1 appl Documented By: MOLLY Ondansetron HCl (Ondansetron Odt 4 Mg Tab.Rapdis) 4 mg TRANSLINGU TIDAC PRN PRN Reason: Nausea Last Admin: 05/13/25 21:55 Dose: 4 mg Documented By: JEFF Ondansetron HCl (Ondansetron Hcl 4 Mg/2 Ml Vial) 4 mg IVPUSH Q8H PRN PRN Reason: Nausea and Vomiting Last Admin: 05/16/25 16:01 Dose: 4 mg Documented By: JOSHUA Oxybutynin Chloride (Oxybutynin Chloride Er 5 Mg Tab.Er.24) 15 mg PO DAILY [facility] Last Admin: 05/16/25 11:44 Dose: 15 mg Documented By: JOSHUA Ropinirole HCl (Ropinirole Hcl 0.25 Mg Tablet) 0.25 mg PO BEDTIME [facility] Last Admin: 05/16/25 20:08 Dose: 0.25 mg Documented By: MOLLY Sodium Chloride (0.9 % Sodium Chloride Flush 3 Ml Syringe) 3 ml IVFLUSH QSHIFT [facility] Last Admin: 05/16/25 20:06 Dose: 3 ml Documented By: MOLLY Labs 05/16/25 06:01 05/16/25 06:01 Labs: Laboratory Results - last 24 hr 05/16/25 05/16/25 05/16/25 11:12 16:10 20:50 POC Glucose 208 H 221 H 213 H 05/17/25 07:35 POC Glucose 261 H Assessment and Plan (1) T2DM (type 2 diabetes mellitus): Status: Acute Plan 64F PMH stage renal disease, morbid obesity, bedridden, hypertension, diabetes presented on 05/12/2025 with weakness and hypotension. Plan was for placement, however patient is end-stage renal disease so was admitted on 05/14/2025 for hemodialysis End-stage renal disease Continue with hemodialysis Follows with [facility] Diabetes Basal bolus insulin Morbid obesity Weight loss recommended Hypertension Amlodipine Chronic pain due to diabetic neuropathy Continue gabapentin DVT prophylaxis with heparin subQ Full code reason for continued hospitalization: Patient unable to manage herself at home, placement pending Quality Stroke Does the patient have a stroke diagnosis?: No VTE Prior VTE?: No VTE Risk Level:: Medical - moderate - high VTE Device Contraindication: Treatment Not Indicated VTE Drug Contraindication: N/A - Med Ordered
[2025-05-17] MEDS: 0.9 % Sodium Chloride Flush 3 ML SYRINGE IVFLUSH ×3 (09:35→21:03)
[2025-05-17] MEDS: oxyBUTYnin chloride ER 5 MG TAB.ER.24 15 MG PO (09:36)
[2025-05-17 09:38] VITALS: BP 125/58
[2025-05-17 11:08] LABS: Glucose, Whole Blood 245 mg/dL (60-115)
[2025-05-17 15:30] VITALS: BP 104/69; PULSE 75; RESP 16; TEMP 36.4; O2SAT 98
[2025-05-17 16:09] LABS: Glucose, Whole Blood 166 mg/dL (60-115)
[2025-05-17 19:19] VITALS: BP 114/53; PULSE 77; RESP 18; TEMP 36.2; O2SAT 97
[2025-05-17 20:25] LABS: Glucose, Whole Blood 226 mg/dL (60-115)
[2025-05-17] MEDS: Insulin Glargine,Hum.rec.anlog 100 UNIT/ML 10 ML VIAL 20 UNIT SUBCUT (21:07)
[2025-05-18 03:46] VITALS: BP 107/56; PULSE 58; RESP 16; TEMP 36.1; O2SAT 97
[2025-05-18 07:01] LABS: Glucose, Whole Blood 172 mg/dL (60-115)
[2025-05-18 07:44] VITALS: BP 119/60; PULSE 67; RESP 18; TEMP 36.2; O2SAT 97
--- NOTE | 2025-05-18 07:54 | P.PNIM_ITS ---
Subjective Subjective Date of Service: 05/18/25 Interval History: esrd,placement Review of Systems no new c/o Review of Systems: Yes all other systems are reviewed and are negative Physical Exam 2 Exam: Exam: General: no acute distress Resp: CTA bilateral, no accessory muscles used CVS: S1,S2,RRR GI: soft, non tender, non distended Neuro: motor grossly intact, alert Psych: appropriate affect, appropriate insight Vital Signs: Vital Signs: Last Vital Signs Temp 97.2 F 05/18/25 07:44 Pulse 67 05/18/25 07:44 Resp 18 05/18/25 07:44 BP 119/60 05/18/25 07:44 Pulse Ox 97 05/18/25 07:44 O2 Del Method Room Air 05/18/25 07:44 O2 Flow Rate 2 05/14/25 08:36 BMI result Body Mass Index 50.5 Objective Data Active Medications Acetaminophen (Acetaminophen 325 Mg Tablet) 650 mg PO Q6H PRN PRN Reason: Pain, Mild 1-3,fever,headache Last Admin: 05/17/25 21:02 Dose: 650 mg Documented By: MOLLY Albuterol Sulfate (Albuterol Sulfate 90 Mcg 8 Gm Inhaler) 2 puff INHALE Q4H PRN PRN Reason: bronchospasm Amlodipine Besylate (Amlodipine Besylate 10 Mg Tablet) 10 mg PO DAILY [facility]; Protocol Last Admin: 05/17/25 09:37 Dose: 10 mg Documented By: MICHELLE Calcium Carbonate (Calcium Carbonate 750 Mg Tab.Chew) 750 mg PO Q4H PRN PRN Reason: Heartburn Last Admin: 05/15/25 12:05 Dose: 750 mg Documented By: MARVA Gabapentin (Gabapentin 100 Mg Capsule) 100 mg PO BID [facility] Last Admin: 05/17/25 21:03 Dose: 100 mg Documented By: MOLLY Heparin Sodium (Porcine) (Heparin Sodium,Porcine 5,000 Unit/Ml Vial) 5,000 unit SUBCUT Q12H [facility] Last Admin: 05/18/25 07:11 Dose: Not Given Documented By: CHANO Non-Admin Reason: Patient Refused Hydralazine HCl (Hydralazine Hcl 25 Mg Tablet) 25 mg PO TID [facility]; Protocol Last Admin: 05/17/25 21:02 Dose: 25 mg Documented By: MOLLY Insulin Glargine (Insulin Glargine,Hum.Rec.Anlog 100 Unit/Ml 10 Ml Vial) 20 unit SUBCUT BEDTIME [facility] Last Admin: 05/17/25 21:07 Dose: 20 unit Documented By: MOLLY Insulin Human Lispro (Insulin Lispro 100 Unit/Ml 3 Ml Vial) 0 - 18 unit SUBCUT TIDWM [facility]; Protocol Last Admin: 05/18/25 07:09 Dose: 10 unit Documented By: CHANO Loperamide HCl (Loperamide Hcl 2 Mg Capsule) 2 mg PO Q4H PRN PRN Reason: Diarrhea Last Admin: 05/15/25 17:03 Dose: 2 mg Documented By: MARVA Magnesium Hydroxide (Milk Of Magnesia 30 Ml Oral.Susp) 30 ml PO DAILY PRN PRN Reason: Constipation Melatonin (Melatonin 3 Mg Tablet) 6 mg PO BEDTIME PRN PRN Reason: Insomnia Nystatin (Nystatin Cream 15 Gm Tube) 1 appl TOPICAL BID [facility]; Protocol Last Admin: 05/17/25 21:09 Dose: 1 appl Documented By: MOLLY Ondansetron HCl (Ondansetron Odt 4 Mg Tab.Rapdis) 4 mg TRANSLINGU TIDAC PRN PRN Reason: Nausea Last Admin: 05/13/25 21:55 Dose: 4 mg Documented By: JEFF Ondansetron HCl (Ondansetron Hcl 4 Mg/2 Ml Vial) 4 mg IVPUSH Q8H PRN PRN Reason: Nausea and Vomiting Last Admin: 05/16/25 16:01 Dose: 4 mg Documented By: JOSHUA Oxybutynin Chloride (Oxybutynin Chloride Er 5 Mg Tab.Er.24) 15 mg PO DAILY [facility] Last Admin: 05/17/25 09:36 Dose: 15 mg Documented By: MICHELLE Ropinirole HCl (Ropinirole Hcl 0.25 Mg Tablet) 0.25 mg PO BEDTIME [facility] Last Admin: 05/17/25 21:03 Dose: 0.25 mg Documented By: MOLLY Sodium Chloride (0.9 % Sodium Chloride Flush 3 Ml Syringe) 3 ml IVFLUSH QSHIFT [facility] Last Admin: 05/18/25 07:10 Dose: Not Given Documented By: CHANO Non-Admin Reason: Previously Administered Labs 05/16/25 06:01 05/16/25 06:01 Labs: Laboratory Results - last 24 hr 05/17/25 05/17/25 05/17/25 11:05 16:06 20:11 POC Glucose 245 H 166 H 226 H 05/18/25 06:56 POC Glucose 172 H Assessment and Plan (1) T2DM (type 2 diabetes mellitus): Status: Acute Plan 64F PMH stage renal disease, morbid obesity, bedridden, hypertension, diabetes presented on 05/12/2025 with weakness and hypotension. Plan was for placement, however patient is end-stage renal disease so was admitted on 05/14/2025 for hemodialysis End-stage renal disease Continue with hemodialysis Follows with [facility] Diabetes Basal bolus insulin Morbid obesity Weight loss recommended Hypertension Amlodipine Chronic pain due to diabetic neuropathy Continue gabapentin DVT prophylaxis with heparin subQ Full code reason for continued hospitalization: Patient unable to manage herself at home, placement pending Quality Stroke Does the patient have a stroke diagnosis?: No VTE Prior VTE?: No VTE Risk Level:: Medical - moderate - high VTE Device Contraindication: Treatment Not Indicated VTE Drug Contraindication: N/A - Med Ordered
--- NOTE | 2025-05-18 11:56 | P.PNNPD_ITS ---
Subjective Subjective Date of Service: 05/18/25 This patient was seen during dialysis. Interval history: patient resting comfortably on dialysis this morning. no new events noted. Awaiting placement. Physical Exam Vital Signs: Vital Signs: Last Vital Signs Temp 97.2 F 05/18/25 07:44 Pulse 67 05/18/25 07:44 Resp 18 05/18/25 07:44 BP 119/60 05/18/25 07:44 Pulse Ox 97 05/18/25 07:44 O2 Del Method Room Air 05/18/25 07:44 O2 Flow Rate 2 05/14/25 08:36 BMI result Body Mass Index 50.5 Const: General: no acute distress, alert and awake Resp: Effort & Inspection: normal respiratory effort and able to speak in co mplete sentences Auscultation: clear to auscultation bilaterally Cardio: Rate: regular rate Rhythm: regular rhythm Heart sounds: S1 normal heart sound present and S2 normal heart sound present GI: Palpation (GI): Soft to palpation and nontender : General: Yes no CVA tenderness Back/Spine/Pelvis: Back: no CVA tenderness Skin: Rashes: no rashes Extrem: General: No edema Assessment & Plan Assessment and plan (1) ESRD (end stage renal disease) on dialysis: Status: Acute Plan ESRD on HD MWF LUE AV fistula with +thrill, +bruit H&H 9.2 & 26.4, will give 20,000 units of procrit today no metabolic acidosis at this time electrolytes unremarkable; phosphorus 5.5, continue to monitor- low phos diet recommend 1.5L/24 hour fluid restriction and low phos, low sodium, low potassium diet Discussed with Dr Linda. Time Spent With Patient Time: Total time managing care of this patient today ____ minutes. Procedures Date of Service Date of Service: 05/18/25
[2025-05-18 13:32] LABS: Glucose, Whole Blood 150 mg/dL (60-115)
--- NOTE | 2025-05-18 14:43 | MHC.CM.PN ---
[facility] [place] ABLE TO OFFER PT A BED PENDING HD BE ARRANGED IN THAT AREA PT WILL NEED PT AND OT EVALS TO DETERMINE IF SHE HAS A SKILL, IF SHE DOES NOT, SHE WILL GO LONG TERM, HOWEVER WILL NOT HAVE THE ABILITY TO GET ANY TYPE OF THERAPY. MDS AND PASRR LEVEL ONE HAVE BEEN SUBMITTED IN THE EVENT SHE IS PLACED ON HER [place] [facility], THE MOST RECENT CALL ENDED WITH THE BREAKDOWN PERSON INDICATING THE COORDINATOR FROM THE [facility] WOULD CALL TO CONFIRM ARRANGEMENTS IN [place]. CINDY DID CALL THE [facility] FOR RECORDS, HOWEVER PT ONLY HAD ONE VISIT, IT ALSO APPEARS SHE HAS NEVER HAD HD IN [place] ALTHOUGH IT WAS ARRANGED TO BE THERE PRIOR TO [place]. CINDY REQUESTED A HD START DATE OF 05/23/25
[2025-05-18] MEDS: 0.9 % Sodium Chloride Flush 3 ML SYRINGE IVFLUSH (15:52)
[2025-05-18 16:00] VITALS: BP 132/62; PULSE 67; RESP 18; TEMP 36.8; O2SAT 98
[2025-05-18 16:25] LABS: Glucose, Whole Blood 366 mg/dL (60-115)
[2025-05-18 20:00] VITALS: BP 167/71; PULSE 66; RESP 18; TEMP 36.3; O2SAT 98
[2025-05-18 20:30] LABS: Glucose, Whole Blood 230 mg/dL (60-115)
[2025-05-18] MEDS: Insulin Glargine,Hum.rec.anlog 100 UNIT/ML 10 ML VIAL 20 UNIT SUBCUT (21:11)
--- NOTE | 2025-05-18 23:22 | HO.SKINPHOTO ---
Location: rt ac Category: infection from iv site? Stage: Length: Width: Depth: cm Location: Category: Stage: Length: Width: Depth: cm Location: Category: Stage: Length: Width: Depth: cm Location: Category: Stage: Length: Width: Depth: cm Location: Category: Stage: Length: Width: Depth: cm Location: Category: Stage: Length: Width: Depth: cm
--- NOTE | 2025-05-18 23:24 | MHC.PIE ---
p; pt c/o pain and discomfort from iv site. iv site dc'd for pt comfort. as iv pulled out, puss like drainage noted with redness and irritation noted. per pt, pt has multiple hx of infected iv site. i; dr morales notified, new order bactroban oint tid. e; will cont to monitor
--- NOTE | 2025-05-19 07:38 | P.PNIM_ITS ---
Subjective Subjective Date of Service: 05/19/25 Interval History: placement Review of Systems no new c/o Review of Systems: Yes all other systems are reviewed and are negative Physical Exam 2 Exam: Exam: General: no acute distress Resp: CTA bilateral, no accessory muscles used CVS: S1,S2,RRR GI: soft, non tender, non distended Neuro: motor grossly intact, alert Psych: appropriate affect, appropriate insight Vital Signs: Vital Signs: Last Vital Signs Temp 97.3 F 05/18/25 20:00 Pulse 66 05/18/25 20:00 Resp 18 05/18/25 20:00 BP 167/71 H 05/18/25 20:00 Pulse Ox 98 05/18/25 20:00 O2 Del Method Room Air 05/18/25 20:00 O2 Flow Rate 2 05/14/25 08:36 BMI result Body Mass Index 50.5 Objective Data Active Medications Acetaminophen (Acetaminophen 325 Mg Tablet) 650 mg PO Q6H PRN PRN Reason: Pain, Mild 1-3,fever,headache Last Admin: 05/18/25 21:37 Dose: 650 mg Documented By: COOPER Comments: given per pt request Albuterol Sulfate (Albuterol Sulfate 90 Mcg 8 Gm Inhaler) 2 puff INHALE Q4H PRN PRN Reason: bronchospasm Amlodipine Besylate (Amlodipine Besylate 10 Mg Tablet) 10 mg PO DAILY [facility]; Protocol Last Admin: 05/18/25 07:57 Dose: Not Given Documented By: CHANO Non-Admin Reason: Off unit: Dialysis Bisacodyl (Bisacodyl 10 Mg Supp.Rect) 10 mg ND DAILY PRN PRN Reason: Constipation Calcium Carbonate (Calcium Carbonate 750 Mg Tab.Chew) 750 mg PO Q4H PRN PRN Reason: Heartburn Last Admin: 05/15/25 12:05 Dose: 750 mg Documented By: MARVA Dextrose (Dextrose 50 % 25 Gm/50 Ml Syringe) 25 gm IVPUSH Q15M PRN; Protocol PRN Reason: per Hypoglycemia Standing Ord. Docusate Sodium (Docusate Sodium 100 Mg Capsule) 100 mg PO DAILY [facility] Ferrous Sulfate (Ferrous Sulfate 324 Mg Tablet.Dr) 324 mg PO DAILY [facility] Gabapentin (Gabapentin 100 Mg Capsule) 100 mg PO BID [facility] Last Admin: 05/18/25 21:11 Dose: 100 mg Documented By: COOPER Glucagon (Glucagon Hcl 1 Mg Vial) 1 mg IM Q20M PRN PRN Reason: low BG Glucose (Glucose Gel 15 Gm Gel..Gram.) 1 - 2 gm PO DAILY PRN PRN Reason: for low BG Glucose (Glucose Gel 15 Gm Gel..Gram.) 15 gm PO Q15M PRN; Protocol PRN Reason: per Hypoglycemia Standing Ord. Heparin Sodium (Porcine) (Heparin Sodium,Porcine 5,000 Unit/Ml Vial) 5,000 unit SUBCUT Q12H [facility] Last Admin: 05/18/25 21:10 Dose: Not Given Documented By: COOPER Non-Admin Reason: Patient Refused Hydralazine HCl (Hydralazine Hcl 25 Mg Tablet) 25 mg PO TID [facility]; Protocol Last Admin: 05/18/25 21:11 Dose: 25 mg Documented By: COOPER Insulin Glargine (Insulin Glargine,Hum.Rec.Anlog 100 Unit/Ml 10 Ml Vial) 20 unit SUBCUT BEDTIME [facility] Last Admin: 05/18/25 21:11 Dose: 20 unit Documented By: COOPER Insulin Human Lispro (Insulin Lispro 100 Unit/Ml 3 Ml Vial) 0 - 18 unit SUBCUT TIDWM [facility]; Protocol On Hold: 05/18/25 16:29 Last Admin: 05/18/25 13:36 Dose: Not Given Documented By: CHANO Non-Admin Reason: No Insulin Coverage Insulin Human Lispro (Insulin Lispro 100 Unit/Ml 3 Ml Vial) 0 unit SUBCUT QIDACHS [facility]; Protocol Last Admin: 05/18/25 21:10 Dose: 4 unit Documented By: COOPER Loperamide HCl (Loperamide Hcl 2 Mg Capsule) 2 mg PO Q4H PRN PRN Reason: Diarrhea Last Admin: 05/15/25 17:03 Dose: 2 mg Documented By: MARVA Magnesium Hydroxide (Milk Of Magnesia 30 Ml Oral.Susp) 30 ml PO DAILY PRN PRN Reason: Constipation Melatonin (Melatonin 3 Mg Tablet) 6 mg PO BEDTIME PRN PRN Reason: Insomnia Mupirocin (Mupirocin 2 % Oint 22 Gm Tube) 1 appl TOPICAL TID [facility]; Protocol Last Admin: 05/18/25 22:44 Dose: 1 appl Documented By: COOPER Nystatin (Nystatin Cream 15 Gm Tube) 1 appl TOPICAL BID [facility]; Protocol Last Admin: 05/18/25 21:12 Dose: 1 appl Documented By: COOPER Ondansetron HCl (Ondansetron Odt 4 Mg Tab.Rapdis) 4 mg TRANSLINGU TIDAC PRN PRN Reason: Nausea Last Admin: 05/13/25 21:55 Dose: 4 mg Documented By: JEFF Ondansetron HCl (Ondansetron Hcl 4 Mg/2 Ml Vial) 4 mg IVPUSH Q8H PRN PRN Reason: Nausea and Vomiting Last Admin: 05/16/25 16:01 Dose: 4 mg Documented By: JOSHUA Oxybutynin Chloride (Oxybutynin Chloride Er 5 Mg Tab.Er.24) 15 mg PO DAILY [facility] Last Admin: 05/18/25 07:59 Dose: Not Given Documented By: CHANO Non-Admin Reason: Off unit: Dialysis Pantoprazole Sodium (Pantoprazole Sodium 20 Mg Tablet.Dr) 20 mg PO DAILY [facility] Polyethylene Glycol (Polyethylene Glycol 3350 17 Gm Powd.Pack) 17 gm PO DAILY [facility] Ropinirole HCl (Ropinirole Hcl 0.25 Mg Tablet) 0.25 mg PO BEDTIME [facility] Last Admin: 05/18/25 21:11 Dose: 0.25 mg Documented By: COOPER Senna (Sennosides 8.6 Mg Tablet) 17.2 mg PO BEDTIME [facility] Last Admin: 05/18/25 21:11 Dose: 17.2 mg Documented By: COOPER Sodium Biphosphate/Sodium Phosphate (Sodium Phosphate,Inyo-Dibasic 133 Ml Enema) 118 ml ND DAILY [facility] Sodium Chloride (0.9 % Sodium Chloride Flush 3 Ml Syringe) 3 ml IVFLUSH QSHIFT [facility] Last Admin: 05/18/25 21:25 Dose: Not Given Documented By: COOPER Non-Admin Reason: See Note Comments: site dc'd - new site to be given Triamcinolone Acetonide (Triamcinolone Acet 0.1 % Oint 15 Gm Tube) 1 appl TOPICAL TID PRN PRN Reason: diabetic psoriasis Labs 05/16/25 06:01 05/16/25 06:01 Labs: Laboratory Results - last 24 hr 05/18/25 05/18/25 05/18/25 13:28 16:20 20:06 POC Glucose 150 H 366 H* 230 H Assessment and Plan (1) T2DM (type 2 diabetes mellitus): Status: Acute Plan 64F PMH stage renal disease, morbid obesity, bedridden, hypertension, diabetes presented on 05/12/2025 with weakness and hypotension. Plan was for placement, however patient is end-stage renal disease so was admitted on 05/14/2025 for hemodialysis End-stage renal disease Continue with hemodialysis Follows with [facility] Diabetes Basal bolus insulin Morbid obesity Weight loss recommended Hypertension Amlodipine Chronic pain due to diabetic neuropathy Continue gabapentin DVT prophylaxis with heparin subQ Full code reason for continued hospitalization: Patient unable to manage herself at home, placement pending Quality Stroke Does the patient have a stroke diagnosis?: No VTE Prior VTE?: No VTE Risk Level:: Medical - moderate - high VTE Device Contraindication: Treatment Not Indicated VTE Drug Contraindication: N/A - Med Ordered
[2025-05-19 08:00] VITALS: BP 129/58; PULSE 58; RESP 18; TEMP 36.1; O2SAT 96
[2025-05-19 08:01] LABS: Glucose, Whole Blood 255 mg/dL (60-115)
[2025-05-19] MEDS: oxyBUTYnin chloride ER 5 MG TAB.ER.24 15 MG PO (08:08)
[2025-05-19] MEDS: 0.9 % Sodium Chloride Flush 3 ML SYRINGE IVFLUSH ×2 (08:09→15:19)
[2025-05-19] MEDS: Ferrous Sulfate 324 MG TABLET.DR PO (08:09)
[2025-05-19 10:07] VITALS: BP 129/58; PULSE 58; O2SAT 96
[2025-05-19 11:31] LABS: Glucose, Whole Blood 294 mg/dL (60-115)
[2025-05-19 15:59] VITALS: BP 150/56; PULSE 63; RESP 18; TEMP 36.1; O2SAT 98
[2025-05-19 16:12] LABS: Glucose, Whole Blood 214 mg/dL (60-115)
[2025-05-19 20:00] VITALS: BP 144/53; PULSE 67; RESP 18; TEMP 36.8; O2SAT 97
[2025-05-19 20:24] LABS: Glucose, Whole Blood 348 mg/dL (60-115)
[2025-05-19] MEDS: Insulin Glargine,Hum.rec.anlog 100 UNIT/ML 10 ML VIAL 20 UNIT SUBCUT (20:41)
--- NOTE | 2025-05-19 21:18 | MHC.PIE ---
p; pt requesting iv to be removed and no more iv site. note; d/t dialysis fistula to lt arm and rt arm infection from previous iv site b/p has been taken on legs - which cause pain d/t neuropathy. pt adamant about no more iv at this time, pt is placement i; dr morales notified e; will cont to monitor
[2025-05-20 08:00] VITALS: BP 128/62; PULSE 65; RESP 18; TEMP 36.7; O2SAT 98
[2025-05-20 08:00] LABS: Glucose, Whole Blood 182 mg/dL (60-115)
[2025-05-20] MEDS: oxyBUTYnin chloride ER 5 MG TAB.ER.24 15 MG PO (08:05)
[2025-05-20] MEDS: Ferrous Sulfate 324 MG TABLET.DR PO (08:05)
[2025-05-20 11:51] LABS: Glucose, Whole Blood 340 mg/dL (60-115)
--- NOTE | 2025-05-20 12:46 | HO.PM.IMPN ---
Subjective Subjective Date of Service: 05/20/25 Interval History: no new c/o Review of Systems Review of Systems: Yes all other systems are reviewed and are negative Physical Exam Exam: Exam: General: no acute distress Resp: CTA bilateral, no accessory muscles used CVS: S1,S2,RRR GI: soft, non tender, non distended Neuro: motor grossly intact, alert Psych: appropriate affect, appropriate insight Vital Signs: Vital Signs: Last Vital Signs Temp 98.1 F 05/20/25 08:00 Pulse 65 05/20/25 08:00 Resp 18 05/20/25 08:00 BP 128/62 05/20/25 08:00 Pulse Ox 98 05/20/25 08:00 O2 Del Method Room Air 05/20/25 08:00 O2 Flow Rate 2 05/14/25 08:36 BMI result Body Mass Index 50.5 Objective Data Active Medications Acetaminophen (Acetaminophen 325 Mg Tablet) 650 mg PO Q6H PRN PRN Reason: Pain, Mild 1-3,fever,headache Last Admin: 05/20/25 08:06 Dose: 650 mg Documented By: BERNICE Albuterol Sulfate (Albuterol Sulfate 90 Mcg 8 Gm Inhaler) 2 puff INHALE Q4H PRN PRN Reason: bronchospasm Amlodipine Besylate (Amlodipine Besylate 10 Mg Tablet) 10 mg PO DAILY [facility]; Protocol Last Admin: 05/20/25 08:07 Dose: 10 mg Documented By: BERNICE Bisacodyl (Bisacodyl 10 Mg Supp.Rect) 10 mg SD DAILY PRN PRN Reason: Constipation Calcium Carbonate (Calcium Carbonate 750 Mg Tab.Chew) 750 mg PO Q4H PRN PRN Reason: Heartburn Last Admin: 05/15/25 12:05 Dose: 750 mg Documented By: MARVA Dextrose (Dextrose 50 % 25 Gm/50 Ml Syringe) 25 gm IVPUSH Q15M PRN; Protocol PRN Reason: per Hypoglycemia Standing Ord. Docusate Sodium (Docusate Sodium 100 Mg Capsule) 100 mg PO DAILY [facility] Last Admin: 05/20/25 08:05 Dose: 100 mg Documented By: BERNICE Ferrous Sulfate (Ferrous Sulfate 324 Mg Tablet.Dr) 324 mg PO DAILY [facility] Last Admin: 05/20/25 08:05 Dose: 324 mg Documented By: BERNICE Gabapentin (Gabapentin 100 Mg Capsule) 100 mg PO BID [facility] Last Admin: 05/20/25 08:05 Dose: 100 mg Documented By: BERNICE Glucagon (Glucagon Hcl 1 Mg Vial) 1 mg IM Q20M PRN PRN Reason: low BG Glucose (Glucose Gel 15 Gm Gel..Gram.) 1 - 2 gm PO DAILY PRN PRN Reason: for low BG Glucose (Glucose Gel 15 Gm Gel..Gram.) 15 gm PO Q15M PRN; Protocol PRN Reason: per Hypoglycemia Standing Ord. Heparin Sodium (Porcine) (Heparin Sodium,Porcine 5,000 Unit/Ml Vial) 5,000 unit SUBCUT Q12H [facility] Last Admin: 05/20/25 08:04 Dose: Not Given Documented By: BERNICE Non-Admin Reason: Patient Refused Hydralazine HCl (Hydralazine Hcl 25 Mg Tablet) 25 mg PO TID [facility]; Protocol Last Admin: 05/20/25 08:07 Dose: 25 mg Documented By: BERNICE Insulin Glargine (Insulin Glargine,Hum.Rec.Anlog 100 Unit/Ml 10 Ml Vial) 20 unit SUBCUT BEDTIME [facility] Last Admin: 05/19/25 20:41 Dose: 20 unit Documented By: COOPER Insulin Human Lispro (Insulin Lispro 100 Unit/Ml 3 Ml Vial) 0 - 18 unit SUBCUT TIDWM [facility]; Protocol On Hold: 05/18/25 16:29 Last Admin: 05/18/25 13:36 Dose: Not Given Documented By: CHANO Non-Admin Reason: No Insulin Coverage Insulin Human Lispro (Insulin Lispro 100 Unit/Ml 3 Ml Vial) 0 unit SUBCUT QIDACHS [facility]; Protocol Last Admin: 05/20/25 11:58 Dose: 10 unit Documented By: BERNICE Loperamide HCl (Loperamide Hcl 2 Mg Capsule) 2 mg PO Q4H PRN PRN Reason: Diarrhea Last Admin: 05/15/25 17:03 Dose: 2 mg Documented By: MARVA Magnesium Hydroxide (Milk Of Magnesia 30 Ml Oral.Susp) 30 ml PO DAILY PRN PRN Reason: Constipation Melatonin (Melatonin 3 Mg Tablet) 6 mg PO BEDTIME PRN PRN Reason: Insomnia Mupirocin (Mupirocin 2 % Oint 22 Gm Tube) 1 appl TOPICAL TID [facility]; Protocol Last Admin: 05/20/25 08:08 Dose: 1 appl Documented By: BERNICE Nystatin (Nystatin Cream 15 Gm Tube) 1 appl TOPICAL BID [facility]; Protocol Last Admin: 05/20/25 08:08 Dose: 1 appl Documented By: BERNICE Ondansetron HCl (Ondansetron Odt 4 Mg Tab.Rapdis) 4 mg TRANSLINGU TIDAC PRN PRN Reason: Nausea Last Admin: 05/13/25 21:55 Dose: 4 mg Documented By: JEFF Ondansetron HCl (Ondansetron Hcl 4 Mg/2 Ml Vial) 4 mg IVPUSH Q8H PRN PRN Reason: Nausea and Vomiting Last Admin: 05/16/25 16:01 Dose: 4 mg Documented By: JOSHUA Oxybutynin Chloride (Oxybutynin Chloride Er 5 Mg Tab.Er.24) 15 mg PO DAILY [facility] Last Admin: 05/20/25 08:05 Dose: 15 mg Documented By: BERNICE Pantoprazole Sodium (Pantoprazole Sodium 20 Mg Tablet.Dr) 20 mg PO DAILY [facility] Last Admin: 05/20/25 08:06 Dose: 20 mg Documented By: BERNICE Polyethylene Glycol (Polyethylene Glycol 3350 17 Gm Powd.Pack) 17 gm PO DAILY [facility] Last Admin: 05/20/25 08:03 Dose: 17 gm Documented By: BERNICE Ropinirole HCl (Ropinirole Hcl 0.25 Mg Tablet) 0.25 mg PO BEDTIME [facility] Last Admin: 05/19/25 20:41 Dose: 0.25 mg Documented By: COOPER Senna (Sennosides 8.6 Mg Tablet) 17.2 mg PO BEDTIME [facility] Last Admin: 05/19/25 20:41 Dose: 17.2 mg Documented By: COOPER Sodium Biphosphate/Sodium Phosphate (Sodium Phosphate,[place]-Dibasic 133 Ml Enema) 118 ml SD DAILY [facility] Last Admin: 05/20/25 08:08 Dose: Not Given Documented By: BERNICE Non-Admin Reason: refused. BM overnight Sodium Chloride (0.9 % Sodium Chloride Flush 3 Ml Syringe) 3 ml IVFLUSH QSHIFT [facility] Last Admin: 05/20/25 08:04 Dose: Not Given Documented By: BERNICE Non-Admin Reason: No Access Triamcinolone Acetonide (Triamcinolone Acet 0.1 % Oint 15 Gm Tube) 1 appl TOPICAL TID PRN PRN Reason: diabetic psoriasis Labs 05/16/25 06:01 05/16/25 06:01 Labs: Laboratory Results - last 24 hr 05/19/25 05/19/25 05/20/25 16:03 20:20 07:48 POC Glucose 214 H 348 H 182 H 05/20/25 11:40 POC Glucose 340 H Assessment and Plan (1) T2DM (type 2 diabetes mellitus): Status: Acute Plan 64F PMH stage renal disease, morbid obesity, bedridden, hypertension, diabetes presented on 05/12/2025 with weakness and hypotension. Plan was for placement, however patient is end-stage renal disease so was admitted on 05/14/2025 for hemodialysis End-stage renal disease Continue with hemodialysis Follows with [facility] Diabetes Basal bolus insulin Morbid obesity Weight loss recommended Hypertension Amlodipine Chronic pain due to diabetic neuropathy Continue gabapentin DVT prophylaxis with heparin subQ Full code reason for continued hospitalization: Patient unable to manage herself at home, placement pending Quality Stroke Does the patient have a stroke diagnosis?: No VTE Prior VTE?: No VTE Risk Level:: Medical - moderate - high VTE Device Contraindication: Treatment Not Indicated VTE Drug Contraindication: N/A - Med Ordered
[2025-05-20 15:28] VITALS: BP 139/60; PULSE 64; RESP 16; TEMP 36; O2SAT 100
[2025-05-20 16:17] LABS: Glucose, Whole Blood 359 mg/dL (60-115)
[2025-05-20 19:06] VITALS: BP 155/69; PULSE 66; RESP 18; TEMP 36.4; O2SAT 97
[2025-05-20 20:37] LABS: Glucose, Whole Blood 263 mg/dL (60-115)
[2025-05-20] MEDS: Insulin Glargine,Hum.rec.anlog 100 UNIT/ML 10 ML VIAL 20 UNIT SUBCUT (20:53)
[2025-05-21 01:43] LABS: Appearance Urine Cloudy; Glucose Urine UA 250 mg/dL (Negative); PH 5.0 (5.0-9.0); Specific Gravity - Urine 1.015 (1.005-1.025); UMIC TRIGGER UACC YES
[2025-05-21 01:56] LABS: UACC Culture Trigger YES
--- NOTE | 2025-05-21 02:52 | PC.NURSE ---
05/20/25 2030 pt states she does not feel good and her blood sugars are running high and when that happens she usually has an infection and wants her urine checked for a UTI. notified and urine ordered for UA and culture.
[2025-05-21 03:40] VITALS: BP 130/58; PULSE 63; RESP 20; TEMP 36.1; O2SAT 99
[2025-05-21 05:55] LABS: Hematocrit 27.2 % (37.0-47.0); Hemoglobin 9.1 g/dl (12.0-16.0); Mean Corpuscular HGB Conc 33.5 g/dl (31.0-35.0); Mean Corpuscular Hemoglobin 32.3 pg (27.0-33.0); Mean Corpuscular Volume 96.5 fL (80.0-98.0); NRBC Abs Auto 0.000 X10*3/uL (0.0-0.012); NRBC Pct Auto 0.0 /100WBC (0.0-0.2); Platelet Count 170 X10*3/uL (160-400); Red Blood Count 2.82 X10*6/uL (4.20-5.50); White Blood Count 10.8 X10*3/uL (4.8-10.8)
[2025-05-21 06:15] LABS: Anion Gap 16 (12-20); Blood Urea Nitrogen 65 mg/dL (9-16); Calcium 8.6 mg/dL (8.4-10.2); Carbon Dioxide 26 mmol/L (22-29); Chloride 96 mmol/L (96-108); Creatinine Clr Calc Pharmacy 17.1; Estimated Glomerular Filt Rate 9; Potassium 3.8 mmol/L (3.3-5.1); Sodium 134 mmol/L (135-145)
[2025-05-21 07:16] VITALS: BP 144/65; PULSE 67; RESP 12; TEMP 36; O2SAT 100
[2025-05-21 07:20] LABS: Glucose, Whole Blood 190 mg/dL (60-115)
[2025-05-21 07:47] LABS: Parathyroid Hormone Intact 703.8 pg/mL (8.7-77.1)
[2025-05-21] MEDS: oxyBUTYnin chloride ER 5 MG TAB.ER.24 15 MG PO (07:57)
[2025-05-21] MEDS: Ferrous Sulfate 324 MG TABLET.DR PO (07:57)
--- NOTE | 2025-05-21 09:50 | W.PM.DNNEP ---
Subjective Subjective Date of Service: 05/21/25 This patient was seen during dialysis. Interval history: no new events noted. Awaiting placement. Physical Exam Vital Signs: Vital Signs: Last Vital Signs Temp 96.8 F 05/21/25 07:16 Pulse 67 05/21/25 07:16 Resp 12 05/21/25 07:16 BP 144/65 H 05/21/25 07:16 Pulse Ox 100 05/21/25 07:16 O2 Del Method Room Air 05/21/25 07:16 O2 Flow Rate 2 05/14/25 08:36 BMI result Body Mass Index 50.5 Const: General: no acute distress, alert and awake Resp: Effort & Inspection: normal respiratory effort and able to speak in complete sentences Auscultation: clear to auscultation bilaterally Cardio: Rate: regular rate Rhythm: regular rhythm Heart sounds: S1 normal heart sound present and S2 normal heart sound present GI: Palpation (GI): Soft to palpation and nontender : General: Yes no CVA tenderness Back/Spine/Pelvis: Back: no CVA tenderness Skin: Rashes: no rashes Extrem: General: No edema Assessment & Plan Assessment and plan (1) ESRD (end stage renal disease) on dialysis: Status: Acute Plan ESRD on HD MWF - HD today. LUE AV fistula with +thrill, +bruit H&H 9.1- 20,000 units of procrit administered on 05/18. no metabolic acidosis at this time electrolytes unremarkable; phosphorus 4.8, continue to monitor- low phos diet PTH is elevated at 703, calcium normal at 8.6. will check vitamin D levels recommend 1.5L/24 hour fluid restriction and low phos, low sodium, low potassium diet Discussed with Dr Marquez. Time Spent With Patient Time: Total time managing care of this patient today ____ minutes. Procedures Date of Service Date of Service: 05/21/25
--- NOTE | 2025-05-21 09:51 | HO.WOUND ---
Wound Consult: Initial 64 yr old female admitted to [facility] [place] [facility] on 05/14/25 - See progress notes and H&P for detailed history. Wound consult placed for right arm old IV site. Patient agreeable to assessment and photo documentation. Right arm Etiology: S/P IV removal Wound Bed: mild intact redness, pinpoint opening Drainage / Odor: none Amada wound: ? No Induration, Fluctuance or Warmth noted Pain: none Goals of Treatment: ? leave open to air - appears improved from previous picture, patient reports improvement Recommendations: Re-consult wound care Nurse for wound deterioration or wound changes.
--- NOTE | 2025-05-21 11:55 | HO.PM.IMPN ---
Subjective Subjective Date of Service: 05/21/25 Interval History: no new c/o Review of Systems Review of Systems: Yes all other systems are reviewed and are negative Physical Exam Exam: Exam: General: no acute distress Resp: CTA bilateral, no accessory muscles used CVS: S1,S2,RRR GI: soft, non tender, non distended Neuro: motor grossly intact, alert Psych: appropriate affect, appropriate insight Vital Signs: Vital Signs: Last Vital Signs Temp 96.8 F 05/21/25 07:16 Pulse 67 05/21/25 07:16 Resp 12 05/21/25 07:16 BP 144/65 H 05/21/25 07:16 Pulse Ox 100 05/21/25 07:16 O2 Del Method Room Air 05/21/25 07:16 O2 Flow Rate 2 05/14/25 08:36 BMI result Body Mass Index 50.5 Objective Data Active Medications Acetaminophen (Acetaminophen 325 Mg Tablet) 650 mg PO Q6H PRN PRN Reason: Pain, Mild 1-3,fever,headache Last Admin: 05/20/25 08:06 Dose: 650 mg Documented By: BERNICE Albuterol Sulfate (Albuterol Sulfate 90 Mcg 8 Gm Inhaler) 2 puff INHALE Q4H PRN PRN Reason: bronchospasm Amlodipine Besylate (Amlodipine Besylate 10 Mg Tablet) 10 mg PO DAILY [facility]; Protocol Last Admin: 05/21/25 10:13 Dose: Not Given Documented By: AMAN Non-Admin Reason: held for dialysis Bisacodyl (Bisacodyl 10 Mg Supp.Rect) 10 mg MS DAILY PRN PRN Reason: Constipation Calcium Carbonate (Calcium Carbonate 750 Mg Tab.Chew) 750 mg PO Q4H PRN PRN Reason: Heartburn Last Admin: 05/15/25 12:05 Dose: 750 mg Documented By: MARVA Dextrose (Dextrose 50 % 25 Gm/50 Ml Syringe) 25 gm IVPUSH Q15M PRN; Protocol PRN Reason: per Hypoglycemia Standing Ord. Docusate Sodium (Docusate Sodium 100 Mg Capsule) 100 mg PO DAILY [facility] Last Admin: 05/21/25 07:57 Dose: 100 mg Documented By: AMAN Ferrous Sulfate (Ferrous Sulfate 324 Mg Tablet.) 324 mg PO DAILY [facility] Last Admin: 05/21/25 07:57 Dose: 324 mg Documented By: AMAN Gabapentin (Gabapentin 100 Mg Capsule) 100 mg PO BID [facility] Last Admin: 05/21/25 07:57 Dose: 100 mg Documented By: AMAN Glucagon (Glucagon Hcl 1 Mg Vial) 1 mg IM Q20M PRN PRN Reason: low BG Glucose (Glucose Gel 15 Gm Gel..Gram.) 15 gm PO Q15M PRN; Protocol PRN Reason: per Hypoglycemia Standing Ord. Heparin Sodium (Porcine) (Heparin Sodium,Porcine 5,000 Unit/Ml Vial) 5,000 unit SUBCUT Q12H [facility] Last Admin: 05/21/25 07:49 Dose: Not Given Documented By: AMAN Non-Admin Reason: Patient Refused Hydralazine HCl (Hydralazine Hcl 25 Mg Tablet) 25 mg PO TID [facility]; Protocol Last Admin: 05/21/25 08:06 Dose: Not Given Documented By: AMAN Non-Admin Reason: Patient Refused Insulin Glargine (Insulin Glargine,Hum.Rec.Anlog 100 Unit/Ml 10 Ml Vial) 20 unit SUBCUT BEDTIME [facility] Last Admin: 05/20/25 20:53 Dose: 20 unit Documented By: ODRISM Insulin Human Lispro (Insulin Lispro 100 Unit/Ml 3 Ml Vial) 0 - 18 unit SUBCUT TIDWM [facility]; Protocol On Hold: 05/18/25 16:29 Last Admin: 05/18/25 13:36 Dose: Not Given Documented By: CHANO Non-Admin Reason: No Insulin Coverage Insulin Human Lispro (Insulin Lispro 100 Unit/Ml 3 Ml Vial) 0 unit SUBCUT QIDACHS [facility]; Protocol Last Admin: 05/21/25 08:06 Dose: 2 unit Documented By: AMAN Loperamide HCl (Loperamide Hcl 2 Mg Capsule) 2 mg PO Q4H PRN PRN Reason: Diarrhea Last Admin: 05/15/25 17:03 Dose: 2 mg Documented By: MARVA Magnesium Hydroxide (Milk Of Magnesia 30 Ml Oral.Susp) 30 ml PO DAILY PRN PRN Reason: Constipation Melatonin (Melatonin 3 Mg Tablet) 6 mg PO BEDTIME PRN PRN Reason: Insomnia Mupirocin (Mupirocin 2 % Oint 22 Gm Tube) 1 appl TOPICAL TID [facility]; Protocol Last Admin: 05/21/25 08:03 Dose: 1 appl Documented By: AMAN Nystatin (Nystatin Cream 15 Gm Tube) 1 appl TOPICAL BID [facility]; Protocol Last Admin: 05/21/25 08:03 Dose: 1 appl Documented By: AMAN Ondansetron HCl (Ondansetron Odt 4 Mg Tab.Rapdis) 4 mg TRANSLINGU TIDAC PRN PRN Reason: Nausea Last Admin: 05/13/25 21:55 Dose: 4 mg Documented By: JEFF Ondansetron HCl (Ondansetron Hcl 4 Mg/2 Ml Vial) 4 mg IVPUSH Q8H PRN PRN Reason: Nausea and Vomiting Last Admin: 05/16/25 16:01 Dose: 4 mg Documented By: JOSHUA Oxybutynin Chloride (Oxybutynin Chloride Er 5 Mg Tab.Er.24) 15 mg PO DAILY [facility] Last Admin: 05/21/25 07:57 Dose: 15 mg Documented By: AMAN Pantoprazole Sodium (Pantoprazole Sodium 20 Mg Tablet.) 20 mg PO DAILY [facility] Last Admin: 05/21/25 07:57 Dose: 20 mg Documented By: AMAN Polyethylene Glycol (Polyethylene Glycol 3350 17 Gm Powd.Pack) 17 gm PO DAILY [facility] Last Admin: 05/21/25 08:02 Dose: Not Given Documented By: AMAN Non-Admin Reason: Patient Refused Ropinirole HCl (Ropinirole Hcl 0.25 Mg Tablet) 0.25 mg PO BEDTIME [facility] Last Admin: 05/20/25 20:53 Dose: 0.25 mg Documented By: JHOANA Senna (Sennosides 8.6 Mg Tablet) 17.2 mg PO BEDTIME [facility] Last Admin: 05/20/25 20:58 Dose: Not Given Documented By: JHOANA Non-Admin Reason: Patient Refused Sodium Biphosphate/Sodium Phosphate (Sodium Phosphate,[place]-Dibasic 133 Ml Enema) 118 ml MS DAILY [facility] Last Admin: 05/21/25 08:04 Dose: Not Given Documented By: AMAN Non-Admin Reason: Patient Refused Sodium Chloride (0.9 % Sodium Chloride Flush 3 Ml Syringe) 3 ml IVFLUSH QSHIFT [facility] Last Admin: 05/21/25 07:48 Dose: Not Given Documented By: AMAN Non-Admin Reason: No Access Triamcinolone Acetonide (Triamcinolone Acet 0.1 % Oint 15 Gm Tube) 1 appl TOPICAL TID PRN PRN Reason: diabetic psoriasis Labs 05/21/25 05:39 05/21/25 05:39 Labs: Laboratory Results - last 24 hr 05/20/25 05/20/25 05/21/25 16:10 20:21 00:50 MCV MCH MCHC RDW Plt Count MPV Absolute Nucleated RBC Nucleated RBC % (auto) Anion Gap Estim Creat Clear Calc Estimated GFR POC Glucose 359 H* 263 H Random Glucose Calcium Phosphorus PTH Intact Urine Color Yellow Urine Appearance Cloudy Urine pH 5.0 Ur Specific [place] 1.015 Urine Protein 30 (1+) H Urine Glucose (UA) 250 H Urine Ketones Negative Urine Blood Negative Urine Nitrite Negative Ur Leukocyte Esterase Moderate (2+) H Urine RBC 3-5 H Urine WBC >50 H Ur Squamous Epith Cells 6-10 Urine Bacteria 1+ Hyaline Casts 0-2 Urine Yeast Present 05/21/25 05/21/25 05:39 07:15 MCV 96.5 MCH 32.3 MCHC 33.5 RDW 13.4 Plt Count 170 MPV 9.9 Absolute Nucleated RBC 0.000 Nucleated RBC % (auto) 0.0 Anion Gap 16 Estim Creat Clear Calc 17.1 Estimated GFR 9 POC Glucose 190 H Random Glucose 188 H Calcium 8.6 Phosphorus 4.8 H PTH Intact 703.8 H Urine Color Urine Appearance Urine pH Ur Specific [place] Urine Protein Urine Glucose (UA) Urine Ketones Urine Blood Urine Nitrite Ur Leukocyte Esterase Urine RBC Urine WBC Ur Squamous Epith Cells Urine Bacteria Hyaline Casts Urine Yeast Assessment and Plan (1) T2DM (type 2 diabetes mellitus): Status: Acute Plan 64F PMH stage renal disease, morbid obesity, bedridden, hypertension, diabetes presented on 05/12/2025 with weakness and hypotension. Plan was for placement, however patient is end-stage renal disease so was admitted on 05/14/2025 for hemodialysis End-stage renal disease Continue with hemodialysis Follows with [facility] Diabetes Basal bolus insulin Morbid obesity Weight loss recommended Hypertension Amlodipine Chronic pain due to diabetic neuropathy Continue gabapentin DVT prophylaxis with heparin subQ Full code reason for continued hospitalization: Patient unable to manage herself at home, placement pending Quality Stroke Does the patient have a stroke diagnosis?: No VTE Prior VTE?: No VTE Risk Level:: Medical - moderate - high VTE Device Contraindication: Treatment Not Indicated VTE Drug Contraindication: N/A - Med Ordered
[2025-05-21 14:19] LABS: Glucose, Whole Blood 186 mg/dL (60-115)
[2025-05-21 14:28] VITALS: BP 144/65; PULSE 67; O2SAT 100
[2025-05-21 16:00] VITALS: BP 129/60; PULSE 65; RESP 18; TEMP 36.4; O2SAT 97
[2025-05-21 16:16] LABS: Glucose, Whole Blood 265 mg/dL (60-115)
[2025-05-21 20:00] VITALS: BP 171/75; PULSE 63; RESP 18; TEMP 36.3; O2SAT 98
[2025-05-21 20:34] LABS: Glucose, Whole Blood 196 mg/dL (60-115)
[2025-05-21] MEDS: Insulin Glargine,Hum.rec.anlog 100 UNIT/ML 10 ML VIAL 20 UNIT SUBCUT (20:35)
[2025-05-21] MEDS: Triamcinolone Acet 0.1 % Oint 15 GM TUBE 1 APPL TOPICAL (20:44)
[2025-05-22 03:13] VITALS: BP 147/65; PULSE 61; RESP 18; TEMP 37.1; O2SAT 97
[2025-05-22 07:24] VITALS: BP 135/62; PULSE 64; RESP 18; TEMP 36.1; O2SAT 96
[2025-05-22] MEDS: oxyBUTYnin chloride ER 5 MG TAB.ER.24 15 MG PO (08:31)
[2025-05-22] MEDS: Ferrous Sulfate 324 MG TABLET.DR PO (08:32)
[2025-05-22 11:15] LABS: Glucose, Whole Blood 265 mg/dL (60-115)
--- NOTE | 2025-05-22 14:13 | P.PNIM_ITS ---
Subjective Subjective Date of Service: 05/22/25 Interval History: no new c/o Review of Systems Review of Systems: Yes all other systems are reviewed and are negative Physical Exam 2 Exam: Exam: General: no acute distress Resp: CTA bilateral, no accessory muscles used CVS: S1,S2,RRR GI: soft, non tender, non distended Neuro: motor grossly intact, alert Psych: appropriate affect, appropriate insight Vital Signs: Vital Signs: Last Vital Signs Temp 96.9 F 05/22/25 07:24 Pulse 64 05/22/25 07:24 Resp 18 05/22/25 07:24 BP 135/62 05/22/25 07:24 Pulse Ox 96 05/22/25 07:24 O2 Del Method Room Air 05/22/25 07:24 O2 Flow Rate 2 05/14/25 08:36 BMI result Body Mass Index 50.5 Objective Data Active Medications Acetaminophen (Acetaminophen 325 Mg Tablet) 650 mg PO Q6H PRN PRN Reason: Pain, Mild 1-3,fever,headache Last Admin: 05/22/25 08:45 Dose: 650 mg Documented By: AMAN Albuterol Sulfate (Albuterol Sulfate 90 Mcg 8 Gm Inhaler) 2 puff INHALE Q4H PRN PRN Reason: bronchospasm Amlodipine Besylate (Amlodipine Besylate 10 Mg Tablet) 10 mg PO DAILY [facility]; Protocol Last Admin: 05/22/25 08:31 Dose: 10 mg Documented By: AMAN Bisacodyl (Bisacodyl 10 Mg Supp.Rect) 10 mg [place] DAILY PRN PRN Reason: Constipation Calcium Carbonate (Calcium Carbonate 750 Mg Tab.Chew) 750 mg PO Q4H PRN PRN Reason: Heartburn Last Admin: 05/15/25 12:05 Dose: 750 mg Documented By: MARVA Dextrose (Dextrose 50 % 25 Gm/50 Ml Syringe) 25 gm IVPUSH Q15M PRN; Protocol PRN Reason: per Hypoglycemia Standing Ord. Docusate Sodium (Docusate Sodium 100 Mg Capsule) 100 mg PO DAILY [facility] Last Admin: 05/22/25 08:32 Dose: 100 mg Documented By: AMAN Ferrous Sulfate (Ferrous Sulfate 324 Mg Tablet.) 324 mg PO DAILY [facility] Last Admin: 05/22/25 08:32 Dose: 324 mg Documented By: AMAN Gabapentin (Gabapentin 100 Mg Capsule) 100 mg PO BID [facility] Last Admin: 05/22/25 08:32 Dose: 100 mg Documented By: AMAN Glucagon (Glucagon Hcl 1 Mg Vial) 1 mg IM Q20M PRN PRN Reason: low BG Glucose (Glucose Gel 15 Gm Gel..Gram.) 15 gm PO Q15M PRN; Protocol PRN Reason: per Hypoglycemia Standing Ord. Heparin Sodium (Porcine) (Heparin Sodium,Porcine 5,000 Unit/Ml Vial) 5,000 unit SUBCUT Q12H [facility] Last Admin: 05/22/25 08:31 Dose: Not Given Documented By: AMAN Non-Admin Reason: Patient Refused Hydralazine HCl (Hydralazine Hcl 25 Mg Tablet) 25 mg PO TID [facility]; Protocol Last Admin: 05/22/25 08:32 Dose: 25 mg Documented By: AMAN Insulin Glargine (Insulin Glargine,Hum.Rec.Anlog 100 Unit/Ml 10 Ml Vial) 20 unit SUBCUT BEDTIME [facility] Last Admin: 05/21/25 20:35 Dose: 20 unit Documented By: ODRISIsela Insulin Human Lispro (Insulin Lispro 100 Unit/Ml 3 Ml Vial) 0 - 18 unit SUBCUT TIDWM [facility]; Protocol On Hold: 05/18/25 16:29 Last Admin: 05/18/25 13:36 Dose: Not Given Documented By: CHANO Non-Admin Reason: No Insulin Coverage Insulin Human Lispro (Insulin Lispro 100 Unit/Ml 3 Ml Vial) 0 unit SUBCUT QIDACHS [facility]; Protocol Last Admin: 05/22/25 12:05 Dose: 6 unit Documented By: AMAN Loperamide HCl (Loperamide Hcl 2 Mg Capsule) 2 mg PO Q4H PRN PRN Reason: Diarrhea Last Admin: 05/15/25 17:03 Dose: 2 mg Documented By: MARVA Magnesium Hydroxide (Milk Of Magnesia 30 Ml Oral.Susp) 30 ml PO DAILY PRN PRN Reason: Constipation Melatonin (Melatonin 3 Mg Tablet) 6 mg PO BEDTIME PRN PRN Reason: Insomnia Mupirocin (Mupirocin 2 % Oint 22 Gm Tube) 1 appl TOPICAL TID [facility]; Protocol Last Admin: 05/22/25 08:36 Dose: 1 appl Documented By: AMAN Nystatin (Nystatin Powder 15 Gm Bottle) 1 appl TOPICAL TID [facility]; Protocol Last Admin: 05/22/25 11:22 Dose: 1 appl Documented By: AMAN Ondansetron HCl (Ondansetron Odt 4 Mg Tab.Rapdis) 4 mg TRANSLINGU TIDAC PRN PRN Reason: Nausea Last Admin: 05/13/25 21:55 Dose: 4 mg Documented By: JEFF Ondansetron HCl (Ondansetron Hcl 4 Mg/2 Ml Vial) 4 mg IVPUSH Q8H PRN PRN Reason: Nausea and Vomiting Last Admin: 05/16/25 16:01 Dose: 4 mg Documented By: JOSHUA Oxybutynin Chloride (Oxybutynin Chloride Er 5 Mg Tab.Er.24) 15 mg PO DAILY [facility] Last Admin: 05/22/25 08:31 Dose: 15 mg Documented By: AMAN Pantoprazole Sodium (Pantoprazole Sodium 20 Mg Tablet.Dr) 20 mg PO DAILY [facility] Last Admin: 05/22/25 08:32 Dose: 20 mg Documented By: AMAN Polyethylene Glycol (Polyethylene Glycol 3350 17 Gm Powd.Pack) 17 gm PO DAILY [facility] Last Admin: 05/22/25 08:36 Dose: 17 gm Documented By: AMAN Ropinirole HCl (Ropinirole Hcl 0.25 Mg Tablet) 0.25 mg PO BEDTIME [facility] Last Admin: 05/21/25 20:31 Dose: 0.25 mg Documented By: JHOANA Senna (Sennosides 8.6 Mg Tablet) 17.2 mg PO BEDTIME [facility] Last Admin: 05/21/25 20:53 Dose: Not Given Documented By: JHOANA Non-Admin Reason: Patient Refused Sodium Biphosphate/Sodium Phosphate (Sodium Phosphate,[place]-Dibasic 133 Ml Enema) 118 ml [place] DAILY [facility] Last Admin: 05/22/25 11:23 Dose: Not Given Documented By: AMAN Non-Admin Reason: Patient Refused Sodium Chloride (0.9 % Sodium Chloride Flush 3 Ml Syringe) 3 ml IVFLUSH QSHIFT [facility] Last Admin: 05/22/25 08:38 Dose: Not Given Documented By: AMAN Non-Admin Reason: No Access Triamcinolone Acetonide (Triamcinolone Acet 0.1 % Oint 15 Gm Tube) 1 appl TOPICAL TID PRN PRN Reason: diabetic psoriasis Last Admin: 05/21/25 20:44 Dose: 1 appl Documented By: JHOANA Labs 05/21/25 05:39 05/21/25 05:39 Labs: Laboratory Results - last 24 hr 05/21/25 05/21/25 05/21/25 14:15 16:12 20:29 Hold Purple Top POC Glucose 186 H 265 H 196 H 05/22/25 05/22/25 05/22/25 05:42 07:29 11:11 Hold Purple Top SEE NOTE POC Glucose 210 H 265 H Microbiology Microbiology Results: Microbiology 05/21/25 Unknown Urine Culture - Final Urine clean catch - Clean Catch Midstream Assessment and Plan (1) T2DM (type 2 diabetes mellitus): Status: Acute Plan 64F PMH stage renal disease, morbid obesity, bedridden, hypertension, diabetes presented on 05/12/2025 with weakness and hypotension. Plan was for placement, however patient is end-stage renal disease so was admitted on 05/14/2025 for hemodialysis End-stage renal disease Continue with hemodialysis Follows with [facility] Diabetes Basal bolus insulin Morbid obesity Weight loss recommended Hypertension Amlodipine Chronic pain due to diabetic neuropathy Continue gabapentin DVT prophylaxis with heparin subQ Full code reason for continued hospitalization: Patient unable to manage herself at home, placement pending Quality Stroke Does the patient have a stroke diagnosis?: No VTE Prior VTE?: No VTE Risk Level:: Medical - moderate - high VTE Device Contraindication: Treatment Not Indicated VTE Drug Contraindication: N/A - Med Ordered
[2025-05-22 14:51] LABS: Appearance Urine Cloudy; Glucose Urine UA 250 mg/dL (Negative); PH 5.0 (5.0-9.0); Specific Gravity - Urine 1.015 (1.005-1.025); UMIC TRIGGER UA YES
[2025-05-22 15:20] VITALS: BP 150/65; PULSE 70; RESP 18; TEMP 36.6; O2SAT 95
--- NOTE | 2025-05-22 15:36 | MHC.CM.PN ---
Met with patient to discuss discharge planning. Patient has a bed offer from [facility]. the search for an HD slot continues. The patient states that she has an apartment. She would like to return to the apartment with help. A referral has been sent to [facility] for Hospital to Home. [facility] is searching for the HD slot. DP Home vs SNF via BLS.
[2025-05-22 16:00] LABS: Glucose, Whole Blood 204 mg/dL (60-115)
[2025-05-22 19:47] VITALS: BP 148/68; PULSE 66; RESP 19; TEMP 35.8; O2SAT 100
[2025-05-22 20:22] LABS: Glucose, Whole Blood 209 mg/dL (60-115)
[2025-05-22] MEDS: Insulin Glargine,Hum.rec.anlog 100 UNIT/ML 10 ML VIAL 20 UNIT SUBCUT (20:36)
[2025-05-23] VITALS (7 sets, daily range): BP systolic 134–150; BP diastolic 63–70; PULSE 63–74; RESP 17–18; TEMP 36.1–36.6; O2SAT 97–99
[2025-05-23 08:20] LABS: Glucose, Whole Blood 186 mg/dL (60-115)
--- NOTE | 2025-05-23 09:05 | HO.PM.IMPN ---
Subjective Subjective Date of Service: 05/23/25 Interval History: no new c/o Review of Systems Review of Systems: Yes all other systems are reviewed and are negative Physical Exam Exam: Exam: General: no acute distress Resp: CTA bilateral, no accessory muscles used CVS: S1,S2,RRR GI: soft, non tender, non distended Neuro: motor grossly intact, alert Psych: appropriate affect, appropriate insight Vital Signs: Vital Signs: Last Vital Signs Temp 97.1 F 05/23/25 04:00 Pulse 63 05/23/25 04:00 Resp 18 05/23/25 04:00 BP 150/70 H 05/23/25 04:00 Pulse Ox 99 05/23/25 04:00 O2 Del Method Room Air 05/23/25 04:00 O2 Flow Rate 2 05/14/25 08:36 BMI result Body Mass Index 50.5 Objective Data Active Medications Acetaminophen (Acetaminophen 325 Mg Tablet) 650 mg PO Q6H PRN PRN Reason: Pain, Mild 1-3,fever,headache Last Admin: 05/22/25 20:39 Dose: 650 mg Documented By: ALEXANDRIA Albuterol Sulfate (Albuterol Sulfate 90 Mcg 8 Gm Inhaler) 2 puff INHALE Q4H PRN PRN Reason: bronchospasm Amlodipine Besylate (Amlodipine Besylate 10 Mg Tablet) 10 mg PO DAILY [facility]; Protocol Last Admin: 05/22/25 08:31 Dose: 10 mg Documented By: AMAN Bisacodyl (Bisacodyl 10 Mg Supp.Rect) 10 mg [place] DAILY PRN PRN Reason: Constipation Calcium Carbonate (Calcium Carbonate 750 Mg Tab.Chew) 750 mg PO Q4H PRN PRN Reason: Heartburn Last Admin: 05/15/25 12:05 Dose: 750 mg Documented By: MARVA Dextrose (Dextrose 50 % 25 Gm/50 Ml Syringe) 25 gm IVPUSH Q15M PRN; Protocol PRN Reason: per Hypoglycemia Standing Ord. Docusate Sodium (Docusate Sodium 100 Mg Capsule) 100 mg PO DAILY [facility] Last Admin: 05/22/25 08:32 Dose: 100 mg Documented By: AMAN Ferrous Sulfate (Ferrous Sulfate 324 Mg Tablet.) 324 mg PO DAILY [facility] Last Admin: 05/22/25 08:32 Dose: 324 mg Documented By: HO.GRAZIC Gabapentin (Gabapentin 100 Mg Capsule) 100 mg PO BID [facility] Last Admin: 05/22/25 20:39 Dose: 100 mg Documented By: ALEXANDRIA Glucagon (Glucagon Hcl 1 Mg Vial) 1 mg IM Q20M PRN PRN Reason: low BG Glucose (Glucose Gel 15 Gm Gel..Gram.) 15 gm PO Q15M PRN; Protocol PRN Reason: per Hypoglycemia Standing Ord. Heparin Sodium (Porcine) (Heparin Sodium,Porcine 5,000 Unit/Ml Vial) 5,000 unit SUBCUT Q12H [facility] Last Admin: 05/22/25 20:29 Dose: Not Given Documented By: ALEXANDRIA Non-Admin Reason: Patient Refused Hydralazine HCl (Hydralazine Hcl 25 Mg Tablet) 25 mg PO TID [facility]; Protocol Last Admin: 05/22/25 20:39 Dose: 25 mg Documented By: ALEXANDRIA Insulin Glargine (Insulin Glargine,Hum.Rec.Anlog 100 Unit/Ml 10 Ml Vial) 20 unit SUBCUT BEDTIME [facility] Last Admin: 05/22/25 20:36 Dose: 20 unit Documented By: ALEXANDRIA Insulin Human Lispro (Insulin Lispro 100 Unit/Ml 3 Ml Vial) 0 - 18 unit SUBCUT TIDWM [facility]; Protocol On Hold: 05/18/25 16:29 Last Admin: 05/18/25 13:36 Dose: Not Given Documented By: CHANO Non-Admin Reason: No Insulin Coverage Insulin Human Lispro (Insulin Lispro 100 Unit/Ml 3 Ml Vial) 0 unit SUBCUT QIDACHS [facility]; Protocol Last Admin: 05/22/25 20:38 Dose: 4 unit Documented By: ALEXANDRIA Loperamide HCl (Loperamide Hcl 2 Mg Capsule) 2 mg PO Q4H PRN PRN Reason: Diarrhea Last Admin: 05/15/25 17:03 Dose: 2 mg Documented By: MARVA Magnesium Hydroxide (Milk Of Magnesia 30 Ml Oral.Susp) 30 ml PO DAILY PRN PRN Reason: Constipation Melatonin (Melatonin 3 Mg Tablet) 6 mg PO BEDTIME PRN PRN Reason: Insomnia Mupirocin (Mupirocin 2 % Oint 22 Gm Tube) 1 appl TOPICAL TID [facility]; Protocol Last Admin: 05/22/25 20:40 Dose: 1 appl Documented By: ALEXANDRIA Nystatin (Nystatin Powder 15 Gm Bottle) 1 appl TOPICAL TID [facility]; Protocol Last Admin: 05/22/25 20:40 Dose: 1 appl Documented By: ALEXANDRIA Ondansetron HCl (Ondansetron Odt 4 Mg Tab.Rapdis) 4 mg TRANSLINGU TIDAC PRN PRN Reason: Nausea Last Admin: 05/13/25 21:55 Dose: 4 mg Documented By: EJFF Ondansetron HCl (Ondansetron Hcl 4 Mg/2 Ml Vial) 4 mg IVPUSH Q8H PRN PRN Reason: Nausea and Vomiting Last Admin: 05/16/25 16:01 Dose: 4 mg Documented By: JOSHUA Oxybutynin Chloride (Oxybutynin Chloride Er 5 Mg Tab.Er.24) 15 mg PO DAILY [facility] Last Admin: 05/22/25 08:31 Dose: 15 mg Documented By: AMAN Pantoprazole Sodium (Pantoprazole Sodium 20 Mg Tablet.) 20 mg PO DAILY [facility] Last Admin: 05/22/25 08:32 Dose: 20 mg Documented By: AMAN Polyethylene Glycol (Polyethylene Glycol 3350 17 Gm Powd.Pack) 17 gm PO DAILY [facility] Last Admin: 05/22/25 08:36 Dose: 17 gm Documented By: AMAN Ropinirole HCl (Ropinirole Hcl 0.25 Mg Tablet) 0.25 mg PO BEDTIME [facility] Last Admin: 05/22/25 20:39 Dose: 0.25 mg Documented By: ALEXANDRIA Senna (Sennosides 8.6 Mg Tablet) 17.2 mg PO BEDTIME [facility] Last Admin: 05/22/25 20:36 Dose: Not Given Documented By: ALEXANDRIA Non-Admin Reason: Patient Refused Sodium Biphosphate/Sodium Phosphate (Sodium Phosphate,[place]-Dibasic 133 Ml Enema) 118 ml PA DAILY [facility] Last Admin: 05/22/25 11:23 Dose: Not Given Documented By: AMAN Non-Admin Reason: Patient Refused Sodium Chloride (0.9 % Sodium Chloride Flush 3 Ml Syringe) 3 ml IVFLUSH QSHIFT [facility] Last Admin: 05/22/25 21:16 Dose: Not Given Documented By: ALEXANDRIA Non-Admin Reason: No Access Triamcinolone Acetonide (Triamcinolone Acet 0.1 % Oint 15 Gm Tube) 1 appl TOPICAL TID PRN PRN Reason: diabetic psoriasis Last Admin: 05/21/25 20:44 Dose: 1 appl Documented By: JHOANA Labs 05/21/25 05:39 05/21/25 05:39 Labs: Laboratory Results - last 24 hr 05/22/25 05/22/25 05/22/25 11:11 14:41 15:56 POC Glucose 265 H 204 H Urine Color Yellow Urine Appearance Cloudy Urine pH 5.0 Ur Specific [place] 1.015 Urine Protein 100 (2+) H Urine Glucose (UA) 250 H Urine Ketones Trace Urine Blood Negative Urine Nitrite Negative Ur Leukocyte Esterase Moderate (2+) H Urine RBC 0-2 Urine WBC 6-10 Ur Squamous Epith Cells 6-10 Ur Transition Epith Cell Present Urine Bacteria 1+ Hyaline Casts 0-2 Urine Yeast Present 05/22/25 05/23/25 20:13 08:15 POC Glucose 209 H 186 H Urine Color Urine Appearance Urine pH Ur Specific [place] Urine Protein Urine Glucose (UA) Urine Ketones Urine Blood Urine Nitrite Ur Leukocyte Esterase Urine RBC Urine WBC Ur Squamous Epith Cells Ur Transition Epith Cell Urine Bacteria Hyaline Casts Urine Yeast Microbiology Microbiology Results: Microbiology 05/21/25 Unknown Urine Culture - Final Urine clean catch - Clean Catch Midstream Assessment and Plan (1) T2DM (type 2 diabetes mellitus): Status: Acute Plan 64F PMH stage renal disease, morbid obesity, bedridden, hypertension, diabetes presented on 05/12/2025 with weakness and hypotension. Plan was for placement, however patient is end-stage renal disease so was admitted on 05/14/2025 for hemodialysis End-stage renal disease Continue with hemodialysis Follows with [facility] Diabetes Basal bolus insulin Morbid obesity Weight loss recommended Hypertension Amlodipine Chronic pain due to diabetic neuropathy Continue gabapentin DVT prophylaxis with heparin subQ Full code reason for continued hospitalization: Patient unable to manage herself at home, placement pending Quality Stroke Does the patient have a stroke diagnosis?: No VTE Prior VTE?: No VTE Risk Level:: Medical - moderate - high VTE Device Contraindication: Treatment Not Indicated VTE Drug Contraindication: N/A - Med Ordered
--- NOTE | 2025-05-23 11:19 | W.PM.DNNEP ---
Subjective Subjective Date of Service: 05/23/25 This patient was seen during dialysis. Interval history: no new events noted. Awaiting placement. Physical Exam Vital Signs: Vital Signs: Last Vital Signs Temp 97.1 F 05/23/25 04:00 Pulse 63 05/23/25 04:00 Resp 18 05/23/25 04:00 BP 150/70 H 05/23/25 04:00 Pulse Ox 99 05/23/25 04:00 O2 Del Method Room Air 05/23/25 04:00 O2 Flow Rate 2 05/14/25 08:36 BMI result Body Mass Index 50.5 Const: General: no acute distress, alert and awake Resp: Effort & Inspection: normal respiratory effort and able to speak in complete sentences Auscultation: clear to auscultation bilaterally Cardio: Rate: regular rate Rhythm: regular rhythm Heart sounds: S1 normal heart sound present and S2 normal heart sound present GI: Palpation (GI): Soft to palpation and nontender : General: Yes no CVA tenderness Back/Spine/Pelvis: Back: no CVA tenderness Skin: Rashes: no rashes Extrem: General: No edema Assessment & Plan Assessment and plan (1) ESRD (end stage renal disease) on dialysis: Status: Acute Plan ESRD on HD MWF - HD today. LUE AV fistula with +thrill, +bruit H&H 9.1- 20,000 units of procrit administered on 05/18. no metabolic acidosis at this time electrolytes unremarkable; phosphorus 4.8, continue to monitor- low phos diet PTH is elevated at 703, calcium normal at 8.6. vitamin D levels pending recommend 1.5L/24 hour fluid restriction and low phos, low sodium, low potassium diet Discussed with Dr Time Spent With Patient Time: Total time managing care of this patient today ____ minutes. Procedures Date of Service Date of Service: 05/23/25
[2025-05-23 11:31] LABS: Glucose, Whole Blood 278 mg/dL (60-115)
[2025-05-23] MEDS: Ferrous Sulfate 324 MG TABLET.DR PO (11:43)
[2025-05-23] MEDS: oxyBUTYnin chloride ER 5 MG TAB.ER.24 15 MG PO (11:44)
--- NOTE | 2025-05-23 15:08 | MHC.CM.PN ---
[facility] The referral was closed due to no availability within [address] miles. [facility] application and clinical information will be completed pending receipt of the application. [facility] are aware the the HD chair time search is still active. [facility] once HD is set up.
[2025-05-23 16:10] LABS: Glucose, Whole Blood 282 mg/dL (60-115)
[2025-05-23 20:37] LABS: Glucose, Whole Blood 233 mg/dL (60-115)
[2025-05-23] MEDS: Insulin Glargine,Hum.rec.anlog 100 UNIT/ML 10 ML VIAL 20 UNIT SUBCUT (21:26)
[2025-05-24 04:00] VITALS: BP 118/56; PULSE 86; RESP 18; TEMP 36.4; O2SAT 98
[2025-05-24 07:22] VITALS: BP 129/61; PULSE 65; RESP 16; TEMP 36.4; O2SAT 97
[2025-05-24 07:41] LABS: Glucose, Whole Blood 263 mg/dL (60-115)
[2025-05-24] MEDS: oxyBUTYnin chloride ER 5 MG TAB.ER.24 15 MG PO (08:06)
[2025-05-24 08:07] VITALS: BP 129/61
[2025-05-24] MEDS: Ferrous Sulfate 324 MG TABLET.DR PO (08:07)
[2025-05-24 10:20] LABS: HBS Num1 0.49 mIU/mL (0-7.99); HBc Num1 0.09 S/CO (0.00-0.79); HBsAGNum1 0.41 S/CO (0.00-0.99); Hepatitis B Surface Antigen Negative (Negative); ~HepC Num1 0.12 S/CO (0.00-0.79); ~Hepatitis B Surface Antibody NONREACTIVE (Nonreactive); ~Hepatitis C Antibody Nonreactive (Nonreactive)
--- NOTE | 2025-05-24 10:45 | HO.PM.IMPN ---
Subjective Subjective Date of Service: 05/24/25 Interval History: no complaints Physical Exam Vital Signs: Vital Signs: Last Vital Signs Temp 97.5 F 05/24/25 07:22 Pulse 65 05/24/25 07:22 Resp 16 05/24/25 07:22 BP 129/61 05/24/25 08:07 Pulse Ox 97 05/24/25 07:22 O2 Del Method Room Air 05/24/25 07:22 O2 Flow Rate 2 05/14/25 08:36 BMI result Body Mass Index 50.5 Const: General: no acute distress, alert and awake Resp: Effort & Inspection: normal respiratory effort and able to speak in complete sentences Auscultation: clear to auscultation bilaterally Cardio: Rate: regular rate Rhythm: regular rhythm Heart sounds: S1 normal heart sound present and S2 normal heart sound present GI: Palpation (GI): Soft to palpation and nontender : General: Yes no CVA tenderness Back/Spine/Pelvis: Back: no CVA tenderness Skin: Rashes: no rashes Extrem: General: No edema Objective Data Active Medications Acetaminophen (Acetaminophen 325 Mg Tablet) 650 mg PO Q6H PRN PRN Reason: Pain, Mild 1-3,fever,headache Last Admin: 05/24/25 08:13 Dose: 650 mg Documented By: JULIAN Albuterol Sulfate (Albuterol Sulfate 90 Mcg 8 Gm Inhaler) 2 puff INHALE Q4H PRN PRN Reason: bronchospasm Amlodipine Besylate (Amlodipine Besylate 10 Mg Tablet) 10 mg PO DAILY [facility]; Protocol Last Admin: 05/24/25 08:07 Dose: 10 mg Documented By: JULIAN Bisacodyl (Bisacodyl 10 Mg Supp.Rect) 10 mg [place] DAILY PRN PRN Reason: Constipation Calcium Carbonate (Calcium Carbonate 750 Mg Tab.Chew) 750 mg PO Q4H PRN PRN Reason: Heartburn Last Admin: 05/15/25 12:05 Dose: 750 mg Documented By: MARVA Dextrose (Dextrose 50 % 25 Gm/50 Ml Syringe) 25 gm IVPUSH Q15M PRN; Protocol PRN Reason: per Hypoglycemia Standing Ord. Docusate Sodium (Docusate Sodium 100 Mg Capsule) 100 mg PO DAILY [facility] Last Admin: 05/24/25 08:07 Dose: 100 mg Documented By: JULIAN Ferrous Sulfate (Ferrous Sulfate 324 Mg Tablet.) 324 mg PO DAILY [facility] Last Admin: 05/24/25 08:07 Dose: 324 mg Documented By: JULIAN Gabapentin (Gabapentin 100 Mg Capsule) 100 mg PO BID [facility] Last Admin: 05/24/25 08:07 Dose: 100 mg Documented By: JULIAN Glucagon (Glucagon Hcl 1 Mg Vial) 1 mg IM Q20M PRN PRN Reason: low BG Glucose (Glucose Gel 15 Gm Gel..Gram.) 15 gm PO Q15M PRN; Protocol PRN Reason: per Hypoglycemia Standing Ord. Heparin Sodium (Porcine) (Heparin Sodium,Porcine 5,000 Unit/Ml Vial) 5,000 unit SUBCUT Q12H [facility] Last Admin: 05/24/25 08:05 Dose: Not Given Documented By: JULIAN Non-Admin Reason: Patient Refused Hydralazine HCl (Hydralazine Hcl 25 Mg Tablet) 25 mg PO TID [facility]; Protocol Last Admin: 05/24/25 08:07 Dose: 25 mg Documented By: JULIAN Insulin Glargine (Insulin Glargine,Hum.Rec.Anlog 100 Unit/Ml 10 Ml Vial) 20 unit SUBCUT BEDTIME [facility] Last Admin: 05/23/25 21:26 Dose: 20 unit Documented By: NEERAJ Insulin Human Lispro (Insulin Lispro 100 Unit/Ml 3 Ml Vial) 0 - 18 unit SUBCUT TIDWM [facility]; Protocol On Hold: 05/18/25 16:29 Last Admin: 05/18/25 13:36 Dose: Not Given Documented By: CHANO Non-Admin Reason: No Insulin Coverage Insulin Human Lispro (Insulin Lispro 100 Unit/Ml 3 Ml Vial) 0 unit SUBCUT QIDACHS [facility]; Protocol Last Admin: 05/24/25 08:06 Dose: 6 unit Documented By: JULIAN Loperamide HCl (Loperamide Hcl 2 Mg Capsule) 2 mg PO Q4H PRN PRN Reason: Diarrhea Last Admin: 05/15/25 17:03 Dose: 2 mg Documented By: MARVA Magnesium Hydroxide (Milk Of Magnesia 30 Ml Oral.Susp) 30 ml PO DAILY PRN PRN Reason: Constipation Melatonin (Melatonin 3 Mg Tablet) 6 mg PO BEDTIME PRN PRN Reason: Insomnia Mupirocin (Mupirocin 2 % Oint 22 Gm Tube) 1 appl TOPICAL TID [facility]; Protocol Last Admin: 05/24/25 08:09 Dose: Not Given Documented By: JULIAN Non-Admin Reason: no longer needed per pt Nystatin (Nystatin Powder 15 Gm Bottle) 1 appl TOPICAL TID [facility]; Protocol Last Admin: 05/24/25 08:08 Dose: 1 appl Documented By: JULIAN Ondansetron HCl (Ondansetron Odt 4 Mg Tab.Rapdis) 4 mg TRANSLINGU TIDAC PRN PRN Reason: Nausea Last Admin: 05/13/25 21:55 Dose: 4 mg Documented By: JEFF Ondansetron HCl (Ondansetron Hcl 4 Mg/2 Ml Vial) 4 mg IVPUSH Q8H PRN PRN Reason: Nausea and Vomiting Last Admin: 05/16/25 16:01 Dose: 4 mg Documented By: JOSHUA Oxybutynin Chloride (Oxybutynin Chloride Er 5 Mg Tab.Er.24) 15 mg PO DAILY [facility] Last Admin: 05/24/25 08:06 Dose: 15 mg Documented By: JULIAN Pantoprazole Sodium (Pantoprazole Sodium 20 Mg Tablet.Dr) 20 mg PO DAILY [facility] Last Admin: 05/24/25 08:06 Dose: 20 mg Documented By: JULIAN Polyethylene Glycol (Polyethylene Glycol 3350 17 Gm Powd.Pack) 17 gm PO DAILY [facility] Last Admin: 05/24/25 08:07 Dose: 17 gm Documented By: JULIAN Ropinirole HCl (Ropinirole Hcl 0.25 Mg Tablet) 0.25 mg PO BEDTIME [facility] Last Admin: 05/23/25 20:59 Dose: 0.25 mg Documented By: NEERAJ Senna (Sennosides 8.6 Mg Tablet) 17.2 mg PO BEDTIME [facility] Last Admin: 05/23/25 20:58 Dose: 17.2 mg Documented By: NEERAJ Sodium Biphosphate/Sodium Phosphate (Sodium Phosphate,[place]-Dibasic 133 Ml Enema) 118 ml [place] DAILY [facility] Last Admin: 05/24/25 08:09 Dose: Not Given Documented By: JULIAN Non-Admin Reason: Patient Refused Sodium Chloride (0.9 % Sodium Chloride Flush 3 Ml Syringe) 3 ml IVFLUSH QSHIFT [facility] Last Admin: 05/24/25 08:04 Dose: Not Given Documented By: JULIAN Non-Admin Reason: No Access Triamcinolone Acetonide (Triamcinolone Acet 0.1 % Oint 15 Gm Tube) 1 appl TOPICAL TID PRN PRN Reason: diabetic psoriasis Last Admin: 05/21/25 20:44 Dose: 1 appl Documented By: JHOANA Labs 05/21/25 05:39 05/21/25 05:39 Labs: Laboratory Results - last 24 hr 05/23/25 05/23/25 05/23/25 11:23 16:03 20:32 POC Glucose 278 H 282 H 233 H Hep Bs Antigen Hep Bs Antibody Hep B Core Total Ab Hepatitis C Ab (EIA) 05/24/25 05/24/25 07:08 09:12 POC Glucose 263 H Hep Bs Antigen Negative Hep Bs Antibody NONREACTIVE Hep B Core Total Ab Nonreactive Hepatitis C Ab (EIA) Nonreactive Assessment and Plan (1) T2DM (type 2 diabetes mellitus): Status: Acute Plan 64F PMH stage renal disease, morbid obesity, bedridden, hypertension, diabetes presented on 05/12/2025 with weakness and hypotension. Plan was for placement, however patient is end-stage renal disease so was admitted on 05/14/2025 for hemodialysis End-stage renal disease Continue with hemodialysis ([facility]) Diabetes Basal bolus insulin Morbid obesity Weight loss recommended Hypertension Amlodipine Chronic pain due to diabetic neuropathy Continue gabapentin DVT prophylaxis with heparin subQ Full code reason for continued hospitalization: Patient unable to manage herself at home, placement pending Quality Stroke Does the patient have a stroke diagnosis?: No VTE Prior VTE?: No VTE Risk Level:: Medical - moderate - high VTE Device Contraindication: Treatment Not Indicated VTE Drug Contraindication: N/A - Med Ordered
[2025-05-24 11:10] LABS: Glucose, Whole Blood 270 mg/dL (60-115)
--- NOTE | 2025-05-24 14:07 | MHC.CM.PN ---
Patient has declined to accept a bed offer from [facility] and an HD slot in [place]. She states that she has arranged for [facility] through [facility]. She states that they will start 05/25/25 1pm. The SNF bed and HD slot have not been cancelled. CM working both DPs. Hep B antigen result is negative.
--- NOTE | 2025-05-24 14:22 | MHC.CM.PN ---
Addendum entered by Claudia Boyer 05/24/25 15:09: [facility] UNAVAILABLE FOR 1300 HOURS TOMORROW, BLS TRANSPORT NOW BOOKED FOR 1400 HOURS Original Note: GRACIE WHITE MET WITH PT AND BEING INFORMED PT WAS DECLINING THE SNF SECURED IN [place] DUE TO DISTANCE PT REPORTS HER DAUGHTER PUT AN ADD ON FB AND FOUND HER PEOPLE TO FILL HER PARER HOURS SHE SAYS SHE WILL DC HOME, BUT CANNOT GO UNTIL TOMORROW ON OF THE COUNTER CLERK WILL GET HER APARTMENT KEYS AND MEET HER AT THE HOME TOMORROW AT 1300 HOURS CM CALLED [facility], THEY ARE PREPARED TO RESUME PTS TRANSPORT TO WEDNESDAY AT 1015 HOURS CM [facility] [facility] [facility] HOWEVER THE CLINIC IS CLOSED CM CALLED THE [facility] CENTRAL INTAKE AND INFORMED THEM THE PT WOULD RETURN WEDNESDAY, ALL INFORMATION WAS RELAYED, HOWEVER THEY ARE UNSURE IF THE HOME CLINIC WILL GET THEIR NOTES, CM WILL CALL TOMORROW CANE WEIGHER IS WORKING [facility] RESCHEDULING PTS NEW PCP APPT WITH DR HINTON, SHE IS AWARE SHE WILL BE UNABLE TO GET A VNA UNTIL SHE ATTENDS BLS TRANSPORT BOOKED FOR TOMORROW AT 1300 HOURS WITH [facility]
[2025-05-24 15:23] VITALS: BP 135/60; PULSE 63; RESP 16; TEMP 36.3; O2SAT 98
[2025-05-24 16:09] LABS: Glucose, Whole Blood 230 mg/dL (60-115)
[2025-05-24 19:21] VITALS: BP 133/60; PULSE 69; RESP 18; TEMP 36.1; O2SAT 97
[2025-05-24 20:55] LABS: Glucose, Whole Blood 347 mg/dL (60-115)
[2025-05-24] MEDS: Insulin Glargine,Hum.rec.anlog 100 UNIT/ML 10 ML VIAL 20 UNIT SUBCUT (21:34)
[2025-05-25 03:19] VITALS: BP 140/58; PULSE 68; RESP 18; TEMP 36.1
[2025-05-25 07:09] VITALS: BP 141/63; PULSE 61; RESP 16; TEMP 36.6; O2SAT 98
[2025-05-25 07:14] LABS: Glucose, Whole Blood 212 mg/dL (60-115)
[2025-05-25] MEDS: oxyBUTYnin chloride ER 5 MG TAB.ER.24 15 MG PO (07:29)
[2025-05-25] MEDS: Ferrous Sulfate 324 MG TABLET.DR PO (07:31)
--- NOTE | 2025-05-25 09:28 | W.PM.DNNEP ---
Subjective Subjective Date of Service: 05/25/25 This patient was seen during dialysis. Interval history: no complaints. plan for discharge today home (pt has arranged for [facility] [facility]), and [facility] [place] (where she had a session of dialysis prior to hospitalization)- per case management's notes. Physical Exam Vital Signs: Vital Signs: Last Vital Signs Temp 97.9 F 05/25/25 07:09 Pulse 61 05/25/25 07:09 Resp 16 05/25/25 07:09 BP 141/63 H 05/25/25 07:09 Pulse Ox 98 05/25/25 07:09 O2 Del Method Room Air 05/25/25 07:09 O2 Flow Rate 2 05/14/25 08:36 BMI result Body Mass Index 50.5 Const: General: no acute distress, alert and awake Resp: Effort & Inspection: normal respiratory effort and able to speak in complete sentences Auscultation: clear to auscultation bilaterally Cardio: Rate: regular rate Rhythm: regular rhythm Heart sounds: S1 normal heart sound present and S2 normal heart sound present GI: Palpation (GI): Soft to palpation and nontender : General: Yes no CVA tenderness Back/Spine/Pelvis: Back: no CVA tenderness Skin: Rashes: no rashes Extrem: General: No edema Assessment & Plan Assessment and plan (1) ESRD (end stage renal disease) on dialysis: Status: Acute Plan ESRD on HD MWF - HD today. LUE AV fistula with +thrill, +bruit H&H 9.5- 20,000 units of procrit administered on 05/18. -no indication for procrit today. no metabolic acidosis at this time electrolytes unremarkable; phosphorus 2.1, may liberalize diet. K 3.0, may consider increasing K bath as outpatient (discharging today). PTH is elevated at 703, calcium normal at 8.6. vitamin D levels still pending recommend 1.5L/24 hour fluid restriction and low sodium diet Discussed with Dr Linda Time Spent With Patient Time: Total time managing care of this patient today ____ minutes. Procedures Date of Service Date of Service: 05/25/25
--- NOTE | 2025-05-25 10:46 | PM.DS ---
DS: Providers Provider Date of Service: 05/25/25 Date of admission: 05/14/25 08:12 Date of discharge: 05/25/25 Primary care physician: Alexi Lynne MD Consults: 05/14/25 08:14 Consult to Nephrology Routine Consulting Provider: Christiano Christianson Reason for consultation: dialysis 05/19/25 00:36 Consult to Wound Care Routine Reason for consultation: rt ac iv site infection? DS: Diagnosis Discharge Diagnosis (1) ESRD (end stage renal disease) on dialysis: Status: Acute DS: Summary Hospital Course Hospital Course: from initial hpi: 64-year-old female PMHx of morbid obesity, DM, HTN, bed ridden at home, ESRD on HD last dialysis was 05/11 and she had a full 4 hr session. While at dialysis she had 1 episode of hypotension. She was discharged home and then returned to the ED on wednesday feeling nauseous after dialysis, no abdominal pain, no CP, no SOB, no fever, no chills. She was placed in the observation unit with the intension that she would be tx to STR but she needs dialysis today and needed to be admitted. hospital course: Patient was admitted for weakness and inability to take care of herself at home in a patient with end-stage renal disease requiring hemodialysis. She received hemodialysis throughout hospitalization. Was continued on basal bolus insulin for diabetes. For morbid obesity weight loss recommended. For hypertension was continued on amlodipine. For chronic pain due to diabetic neuropathy was continued on gabapentin. Outpatient arrangements for hemodialysis and PCS services were set up and patient will be discharged home. Time Attestation Discharge Coordination Time (in mins): 37 Quality: Safe Use of Opioids Does Pt have an Active Cancer Diagnosis on the Problem List?: No Quality: Stroke Does the patient have a stroke diagnosis?: No Physical Exam Vital Signs: Vital Signs: Last Vital Signs Temp 97.9 F 05/25/25 07:09 Pulse 61 05/25/25 07:09 Resp 16 05/25/25 07:09 BP 141/63 H 05/25/25 07:09 Pulse Ox 98 05/25/25 07:09 O2 Del Method Room Air 05/25/25 07:09 O2 Flow Rate 2 05/14/25 08:36 BMI result Body Mass Index 50.5 Const: General: no acute distress, alert and awake Resp: Effort & Inspection: normal respiratory effort and able to speak in complete sentences Auscultation: clear to auscultation bilaterally Cardio: Rate: regular rate Rhythm: regular rhythm Heart sounds: S1 normal heart sound present and S2 normal heart sound present GI: Palpation (GI): Soft to palpation and nontender : General: Yes no CVA tenderness Back/Spine/Pelvis: Back: no CVA tenderness Skin: Rashes: no rashes Extrem: General: No edema DS: Data Data Completed and Pending Completed studies during hospitalization [Text1]: Procedures Excision of Duodenum, Via Natural or Artificial Opening Endoscopic, Diagnostic (07/31/20) Excision of Stomach, Pylorus, Via Natural or Artificial Opening Endoscopic, Diagnostic (07/31/20) Labs on day of discharge: Laboratory Results - last 24 hr 05/24/25 05/24/25 05/24/25 11:03 16:05 20:51 POC Glucose 270 H 230 H 347 H 05/25/25 07:06 POC Glucose 212 H Discharge Plan Discharge Anticipated Discharge Date/Time: 05/25/25 10:44 Patient Disposition: Home Health Service Discharge Diagnosis: esrd Referrals: Alexi Lynne MD [Primary Care Provider, Internal Medicine] - 05/29/25 11:30 am Referral Note: You have an appointment schedule. If you can not make this appointment call office to reschedule. Discharge Medications: Continued albuterol sulfate 90 mcg/actuation HFA aerosol inhaler 2 puff inhalation Q4H PRN (Reason: bronchospasm) 30 Days Qty: 8.5 5RF (DME) Accu-Chek Berna Plus test strp Strip See Rx Instructions .Route Qty: 300 8RF Rx Instructions: to check blood sugars five times a day (DME) blood sugar diagnostic Strip See Rx Instructions .ROUTE .MEDSUPPLY Qty: 200 8RF Rx Instructions: FREESTYLE TEST STRIPS gabapentin 100 mg capsule 100 mg PO BID Qty: 60 7RF ondansetron 4 mg tablet,disintegrating 4 mg translingual TIDAC PRN (Reason: nausea) Qty: 12 0RF (DME) hospital bed Kit See Rx Instructions .Route Qty: 1 0RF Rx Instructions: As directed (DME) pen needle, diabetic 32 gauge x 5/32 needle See Rx Instructions .Route Qty: 100 0RF Rx Instructions: use TID (DME) insulin syringe-needle U-100 [BD Insulin Syringe Ultra-Fine] 1 mL 30 gauge x 1/2 syringe See Rx Instructions .ROUTE .MEDSUPPLY Qty: 100 3RF Rx Instructions: TID insulin lispro [Humalog U-100 Insulin] 100 unit/mL solution 10 - 18 unit subcut TIDWM Rx Instructions: Patient uses a sliding scale nystatin 100,000 unit/gram Cream 1 appl TOPICAL TID Protocol: Apply to: Apply to: UNDER BREASTS, BELLY FOLDS insulin glargine [Lantus Solostar U-100 Insulin] 100 unit/mL (3 mL) insulin pen 20 unit subcut BEDTIME ropinirole 0.25 mg tablet 0.25 mg PO BEDTIME acetaminophen 325 mg Tablet 650 mg PO Q6H PRN (Reason: Pain (Scale Score 4-6)) Benzocaine-Isopropyl Alcohol Topical Swabs swab 1 appl topical BID bisacodyl 10 mg Suppository 10 mg WA DAILY PRN (Reason: Constipation) epoetin silverio 20,000 unit/mL Solution 20,000 unit SUBCUT TH glucagon 1 mg Recon Soln 1 mg IM Q20M PRN (Reason: low BG) Rx Instructions: until target blood sugar attained ferrous fumarate 325 mg (106 mg iron) Tablet 325 mg PO DAILY Glucose 45% Oral Gel 1 - 2 tube PO DAILY PRN (Reason: for low BG) sennosides [senna] 8.6 mg Tablet 17.2 mg PO BEDTIME polyethylene glycol 3350 17 gram Powder In Packet 17 g PO DAILY hydralazine 25 mg Tablet 25 mg PO TID pantoprazole 20 mg Tablet,Delayed Release (Dr/Ec) 20 mg PO DAILY sodium phosphates 19-7 gram/118 mL Enema 118 ml WA DAILY Rx Instructions: Give if Dulcolax suppository is ineffective Milk Of Magnasia 400 mg/5 mL suspension 30 ml PO DAILY PRN (Reason: Constipation) Rx Instructions: give if no BM x 3 days Triamcinolone 0.1% Ointment ointment 1 appl topical TID PRN (Reason: diabetic psoriasis) docusate sodium 100 mg Capsule 100 mg PO DAILY amlodipine 10 mg tablet 10 mg PO DAILY oxybutynin chloride 15 mg tablet extended release 24hr 15 mg PO DAILY Discharge Orders: Discharge Order (Routine); Ordered 05/25/25 Ordered By: Rajesh Pena Diet: Advance to usual diet Activity on Discharge: As tolerated Stand Alone Forms: Patient Portal Discharge page Print Language: Tajik Activity Restrictions/Additional Instructions: Please continue your regular medications. Please follow up with your regular doctor next week. Call on Wednesday morning for an appointment. Return to ER if worse. Care Plan Goals: manage esrd Health Concerns: esrd Plan of Treatment: conitnue hd Assessment: see above
[2025-05-25 10:53] LABS: Hematocrit 27.6 % (37.0-47.0); Hemoglobin 9.5 g/dl (12.0-16.0); Mean Corpuscular HGB Conc 34.4 g/dl (31.0-35.0); Mean Corpuscular Hemoglobin 32.8 pg (27.0-33.0); Mean Corpuscular Volume 95.2 fL (80.0-98.0); NRBC Abs Auto 0.000 X10*3/uL (0.0-0.012); NRBC Pct Auto 0.0 /100WBC (0.0-0.2); Platelet Count 184 X10*3/uL (160-400); Red Blood Count 2.90 X10*6/uL (4.20-5.50); White Blood Count 7.8 X10*3/uL (4.8-10.8)
[2025-05-25 11:11] LABS: Anion Gap 12 (12-20); Blood Urea Nitrogen 20 mg/dL (9-16); Calcium 8.2 mg/dL (8.4-10.2); Carbon Dioxide 29 mmol/L (22-29); Chloride 100 mmol/L (96-108); Creatinine Clr Calc Pharmacy 44.8; Estimated Glomerular Filt Rate 28; Potassium 3.0 mmol/L (3.3-5.1); Sodium 138 mmol/L (135-145)
[2025-05-25 12:55] VITALS: BP 157/70; PULSE 67; RESP 16; TEMP 36.8; O2SAT 97
[2025-05-25 12:55] LABS: Glucose, Whole Blood 172 mg/dL (60-115)
--- NOTE | 2025-05-25 14:15 | MHC.CM.PN ---
PT WILL DC HOME TODAY WITH [facility] SHE CONFIRMS THE HAND TIER OBTAINED HER HOUSE KEYS AND IS AT HER HOME WAITING FOR HER SHE IS AWARE A PCP APPT WAS MADE FOR HER WITH DR HINTON FOR 05/29/25 @ 1130 CM CALLED [facility] WHO WILL REACH OUT TO PCP OFFICE FOR NECESSARY PAPERWORK AND HAS PUT HER ON SCHEDULE FOR TRANSPORT TO HD WEDNESDAY AND PCP WEDNESDAY ONCE SHE SEES HER PCP, SHE WILL REQUEST HE SET UP VNA SERVICES FOR NURSING AND PT PT WILL TRANSPORT HOME [facility]
[2025-05-28 16:09] LABS: Vitamin D 25-OH, D2 <4 ng/mL; Vitamin D 25-OH, D3 12 ng/mL; Vitamin D 25-OH, Total 12 ng/mL (30-100)
[2025-05-28 16:43] LABS: VITAMIN D (1,25 OH) D3 <8 pg/mL; Vit D (1,25-Dihydroxy) Total <8 pg/mL (18-72); Vitamin D (1,25 OH) D2 <8 pg/mL
== END 2025-05-25 14:22 | disposition home health service (06) | DRG 291 ==
LOC: HO.ED 05-13 08:26 → HO.EDOVER 05-14 08:20 → HO.S3 05-14 16:16
PROVIDERS: Internal Medicine; Nurse Practitioner Family; Admitting Provider Nurse Practitioner Acute Care; Emergency Provider Emergency Medicine; PCP Internal Medicine; Visit Provider Internal Medicine
DX: I13.2 Hypertensive heart and chronic kidney disease with heart failure and with stage 5 chronic kidney disease, or end stage renal disease (principal); N18.6 End stage renal disease; Z68.43 Body mass index [BMI] 50.0-59.9, adult; E11.22 Type 2 diabetes mellitus with diabetic chronic kidney disease; Z99.2 Dependence on renal dialysis; Z74.01 Bed confinement status; E66.01 Morbid (severe) obesity due to excess calories; I50.32 Chronic diastolic (congestive) heart failure; E11.40 Type 2 diabetes mellitus with diabetic neuropathy, unspecified; Z71.3 Dietary counseling and surveillance; G89.29 Other chronic pain; Z87.891 Personal history of nicotine dependence; Z79.4 Long term (current) use of insulin; Z79.899 Other long term (current) drug therapy
CPT/HCPCS: 36415; 71045; 80048; 80053; 81001; 82306; 82652; 82947; 83970; 84100; 85025; 85027; 86704; 86706; 86803; 87086; 87340; 87493; 90999; 97162; 97166; 97530; 99221; 99285; J2405; Q5106

== ENCOUNTER → 2025-05-11 23:34 | Outpatient (BNV) | payer MEDICARE, MEDICAID, SELFPAY | PROVIDERS: Emergency Provider Emergency Medicine; PCP Internal Medicine; Visit Provider Radiology Diagnostic Radiology | DX: N18.6 End stage renal disease (principal); R11.0 Nausea; R50.9 Fever, unspecified | CPT/HCPCS: 71045 ==

== ENCOUNTER → 2025-05-14 08:12 | Outpatient (BNV) | payer MEDICARE, MEDICAID, SELFPAY | PROVIDERS: Admitting Provider Nurse Practitioner Acute Care; Emergency Provider Emergency Medicine; PCP Internal Medicine; Visit Provider Internal Medicine | DX: E11.9 Type 2 diabetes mellitus without complications (principal) | CPT/HCPCS: 99223; 99231; 99232; 99239 ==

== ENCOUNTER → 2025-05-14 08:12 | Outpatient (BNV) | payer MEDICARE, MEDICAID, SELFPAY | PROVIDERS: Admitting Provider Nurse Practitioner Acute Care; Emergency Provider Emergency Medicine; PCP Internal Medicine; Visit Provider Nurse Practitioner Family | DX: N18.6 End stage renal disease (principal); Z99.2 Dependence on renal dialysis | CPT/HCPCS: 90935; 99231 ==

== ENCOUNTER 2025-06-10 13:15 | Inpatient (IN) | payer MEDICARE, MEDICAID, SELFPAY ==
--- OUTSIDE RECORDS SUMMARY | 2022-07-01 08:00 | XMS_ITS | Continuity of Care Document ---
Author Organization [facility] Address [address] [address] Phone Care Team Providers Care Program Admin Name Role Phone Caleb URBINA, Fiona Unavailable Unavailable Advance Directives Directive Yes / No Effective Date File Name No Information Encounters Encounter Description Practice Location Reason(s) For Visit Diagnoses Date Provider [facility], [address], [id number], [place] tel:[phone] [facility] No Information 2021 Caleb Jaimes. [address] [place], [place], [id number], [place]. tel:[phone] Family History Family Member Type Diagnosis Age [...]
--- OUTSIDE RECORDS SUMMARY | 2025-06-05 21:57 | XMS_ITS | Encounter Summary ---
Author Organization [facility] Address [address] [facility] [address] [place] [id number] Phone Care Team Providers Care Director Of Vocational Guidance Name Role Phone Alexi Lynne MD Primary Care Provider [phone] Reason for Visit * Reason Comments Shortness of Breath Encounter Details Date Type Department Care Team ([facility] st Contact Info) Description 06/05/2025 9:57 PM EDT - 06/06/2025 9:15 AM EDT Emergency [facility] [address] [place] [address] Gumaro Hernandez, DO [address] [place] [address] Satya Burger MD [address] [place] [address] Discharge Disposition: Home or Self Care Social History Tobacco Use Types Packs/Day Years Used Date Smoking Tobacco: Former Cigarettes Alcohol Use Standard Drinks/Week Comments Not Currently [...] got money to buy more. Never True 06/05/2025 Within the past 6 months the food we bought just didn't last and we didn't have enough money to get more. Never True Residential Stability Answer Date Recor ded What is your housing situation today? I have chino banda 06/05/2025 How many times have you move d in the past 12 months? Zero (I did not move) 06/05/2025 Paying for Meds Answer Date Recorded Do you have trouble paying for medicines? No 06/05/2025 Paying Utility Bills Answer Date Record ed Do you have trouble paying your heating or elect ricity bill? No 06/05/2025 Transportation Answer Date Recorded Has the lack of transportati on kept you from medical appointments or from getting medications? Yes 06/05/2025 Digital Access Answer Date Recorded No 06/05/2025 Yes 06/05/2025 Do you have reliable internet access at home? Ye s 06/05/2025 Do you have a device (e.g., phone, tablet, computer) with a working camera? Yes 06/05/2025 Intimate Partner Violence Answer Date R ecorded Are you denied basic needs s uch as food, clothing, or medical care? No 06/05/2025 In the past 12 months have y ou been in a relationship with a person who hurts, threatens, or tries to control you? No 06/05/2025 Are you denied basic needs s uch as food, clothing, or medical care? No 06/05/2025 In the past 12 months have y ou been in a relationship with a person who hurts, threatens, or tries to control you? No 06/05/2025 Comments Unknown Sex and Gender Information Value Date Recorded Sex Assigned at Female 06/05/2025 10:13 PM EDT Legal Sex Female 7:46 AM EST Gender Identity Female 06/05/2025 10:13 PM EDT Sexual Orientation Not on file documented as of this encounter Last Filed Vital Signs Vital Sign Reading Time Taken Comments Blood Pressure 181/67 06/06/2025 8:50 AM EDT Pulse 77 06/06/2025 8:50 AM EDT Temperature 36.8 C (98.3 F) 06/06/2025 5:59 AM EDT Respiratory Rate 24 06/06/2025 8:50 AM EDT Oxygen Saturation 100% 06/06/2025 8:50 AM EDT Inhaled Oxygen Concentration - - Weight 149 kg (328 lb 8 oz) 06/05/2025 10:11 PM EDT Height 167.6 cm (5' 6 ) 06/05/2025 10:11 PM EDT Body Mass Index 53.02 06/05/2025 10:11 PM EDT documented in this encounter Functional Status * Calculated C-SSRS Risk Score (Lifetime/Recent) Answer Date of Assessment Author No Risk Indicated 06/05/2025 10:13 PM EDT Luz Colon RN * [place] Suicide Severity Rating Scale (Screener/Recent Self-Report) Question Answer Date of Assessment Author 1. Wish to be (Past 1 Month) No 06/05/2025 10:13 PM EDT Luz Colon RN 2. Non-Specific Active Suicidal Thoughts (Past 1 Month) No 06/05/2025 10:13 PM EDT Luz Colon RN 6. Suicidal Behavior (Lifetime) No 06/05/2025 10:13 PM EDT Luz Colon RN documented as of this encounter Discharge Instructions * Discharge Instructions* Gumaro Hernandez DO - 06/06/2025 2:11 AM EDT It is important that you continue to follow-up with your primary care team to establish access to your medications. At this time your workup was reassuring. Go to dialysis today as previously arranged. * Attachments The following attachments cannot be sent through Care Everywhere. * SOB (Shortness of Breath) ([place] Island[place]) documented in this encounter Medications at Time of Discharge albuterol 90 mcg/actuation inhaler Inhale 2 puffs into the lungs every 4 (four) hours as needed for wheezing. amLODIPine (NORVASC) 10 MG tablet Take 10 mg by mouth daily. calcium carbonate 500 mg (200 mg elemental) chewable tablet Take 2 tablets by mouth daily as needed for heartburn. docusate sodium (COLACE) 100 MG capsule Take 100 mg by mouth 2 (two) times a day. epoetin silverio (EPOGEN,PROCRIT) 2,000 unit/mL injection Inject 2,000 Units under the skin as directed. With dialysis gabapentin (NEURONTIN) 100 MG capsule Take 200 mg by mouth 2 (two) times a day. hydrALAZINE (APRESOLINE) 25 MG tablet Take 25 mg by mouth 3 (three) times a day. 07/20/2022 insulin glargine (LANTUS) 100 unit/mL injection vial Inject 35 Units under the skin daily. 15 mL 04/28/2025 insulin lispro (ADMELOG, HUMALOG) 100 unit/mL injection vial Inject 10 Units under the skin 3 (three) times a day with meals. 04/27/2025 neomycin-bacitracin zinc-polymyxin B (TRIPLE ANTIBIOTIC) ointment Apply topically 2 (two) times a day (once in the morning and once in the afternoon). 15 g 04/27/2025 oxyBUTYnin (DITROPAN) 5 MG tablet Take 15 mg by mouth daily. pantoprazole (PROTONIX) 40 MG tablet Take 1 tablet (40 mg total) by mouth daily. 30 tablet 04/27/2025 rOPINIRole (REQUIP) 0.25 MG tablet Take 0.25 mg by mouth nightly at bedtime. senna (SENOKOT) 8.6 mg tablet Take 2 tablets by mouth daily. sodium zirconium cyclosilicate (LOKELMA) 10 gram Take 10 g by mouth as needed for other (free text field) (hyperkalemia). torsemide (DEMADEX) 20 MG tablet Take 100 mg by mouth 2 (two) times a day (once in the morning and once in the afternoon). documented as of this encounter ED Notes * Elvia Nunez RN - 06/06/2025 5:59 AM EDT ED Nursing Progress Note Pt assisted with pericare and repositioning. * Luz Colon RN - 06/06/2025 2:13 AM EDT ED Nursing Progress Note Patient assisted to reposition in the bed, left side lying position, patient to be discharged home in the morning when GLASS INSTALLER TECHNICIAN can get her into the house, dialysis tomorrow at regularly scheduled time, patient updated on plan of care. Safety measures in place, will continue to monitor. * Luz Colon RN - 06/05/2025 11:36 PM EDT ED Nursing Progress Note External wick applied, patient assisted to reposition in bed, safety measures in place, will continue to monitor. * Luz Colon RN - 06/05/2025 10:09 PM EDT Patient BIBA from home with reports of shortness of breath. Patient is awake and alert, speaking clearly in full sentences, breathing equal, labored at baseline due to body habitus, does not use oxygen at home, 98% room air, also reporting headache. Patient reporting she has had difficulty tolerating dialysis lately, difficulty getting home medications, and does not have full GLASS INSTALLER TECHNICIAN coverage at home. * Gumaro Hernandez DO - 06/05/2025 9:55 PM EDT Chief Complaint Chief Complaint Patient presents with Shortness of Breath History of Present Illness The patient, Isabel Carcamo,is a 64 y.o. female who presents for evaluation of Shortness of Breath 64-year-old female history of end-stage renal disease on hemodialysis. Presents for evaluation of multiple symptoms states that today she has just felt unwell. States that she has a headache has had persistent nausea with poor oral intake. Has felt fatigued and short of breath. Has had some difficulty with her dialysis on Wednesday and Wednesday unable to finish it given difficulty with the fistula. Was able to finish fully her treatment yesterday. Was scheduled to see her PCP however the wrong order for transport was placed and thus unable to get to her appointment. She states that she does nothave access to her home medications. Her particular concern is out of her blood pressure medications. Unless otherwise specified, I have reviewed and agree with the triage and nursing notes. ROS A ten point review of systems was negative except what was noted in the HPI. Review of Systems Past Medical History Past Medical History: Diagnosis Date Chronic kidney disease (CKD) Congestive heart failure Diabetes mellitus Gastroesophageal reflux disease Obesity JULIUS (obstructive sleep apnea) Recurrent urinary tract infection Past Surgical History Past Surgical History: Procedure Laterality Date CARPAL TUNNEL RELEASE Home Medications Prior to Admission medications Medication Sig albuterol 90 mcg/actuation inhaler 2 puffs, Every 4 hours PRN amLODIPine (NORVASC) 10 MG tablet 10 mg, Daily calcium carbonate 500 mg (200 mg elemental) chewable tablet 2 tablets, Daily as needed docusate sodium (COLACE) 100 MG capsule 100 mg, 2 times daily epoetin silverio (EPOGEN,PROCRIT) 2,000 unit/mL injection 2,000 Units, Subcutaneous, See admin instructions, With dialysis gabapentin (NEURONTIN) 100 MG capsule 200 mg, 2 times daily hydrALAZINE (APRESOLINE) 25 MG tablet 25 mg, 3 times daily insulin glargine (LANTUS) 100 unit/mL injection vial 35 Units, Subcutaneous, Daily insulin lispro (ADMELOG, HUMALOG) 100 unit/mL injection vial 10 Units, Subcutaneous, 3 times daily with meals neomycin-bacitracin zinc-polymyxin B (TRIPLE ANTIBIOTIC) ointment Topical, 2 times daily oxyBUTYnin (DITROPAN) 5 MG tablet 15 mg, Daily pantoprazole (PROTONIX) 40 MG tablet 40 mg, Oral, Daily rOPINIRole (REQUIP) 0.25 MG tablet 0.25 mg, Nightly senna (SENOKOT) 8.6 mg tablet 2 tablets, Daily sodium zirconium cyclosilicate (LOKELMA) 10 gram 10 g, As needed torsemide (DEMADEX) 20 MG tablet 100 mg, 2 times daily Allergies No Known Allergies Social and Family History Social History Tobacco Use Smoking status: Former Types: Cigarettes Smokeless tobacco: Not on file Substance Use Topics Alcohol use: Not Currently Social History Substance and Sexual Activity Drug Use Never Family History Problem Relation Age of Onset Hypertension Mother Heart disease Mother Breast cancer Mother Hypertension Father Kidney disease Father Kidney disease Brother Physical Exam Vital Signs: ED Triage Vitals [06/05/25 2211] Encounter Vitals Group BP (!) 137/91 Systolic BP Percentile Diastolic BP Percentile Heart Rate 69 Respiratory Rate 20 Temperature 37.2 ??C (98.9 ??F) Temp Source Oral SpO2 98 % Weight (!) 328 lb 8 oz Height 5' 6 Head Circumference Peak Flow Pain Score Pain Loc Pain Education Exclude from Growth Chart Physical Exam General: Appears chronically ill but in no acute distress HENT: Normocephalic, Atraumatic Eyes: Pupils equal, EOM Intact Cardiovascular: Normal Rate, Normal Rhythm, Good Distal Perfusion, fistula with palpable thrill in the left upper extremity Pulmonary: Normal Effort, symmetric chest rise Abdominal: Soft, Non-tender, Non-distended MSK: Normal ROM Skin: Intact, Dry Neurological: Alert, Orientated x 3 Psych: Normal Mood and Affect Laboratory Testing Results for orders placed or performed during the hospital encounter of 06/05/25 LFTs (hepatic panel) Specimen: Blood Result Value Ref Range ALKALINE PHOSPHATASE 125 (H) 39 - 117 U/L TOTAL BILIRUBIN 0.4 0.0 - 1.2 mg/dL DIRECT BILIRUBIN 0.2 0.0 - 0.2 mg/dL Bilirubin (Indirect) 0.2 0 - 1.5 mg/dL AST 14 0 - 37 U/L ALT 10 0 - 40 U/L TOTAL PROTEIN 6.4 (L) 6.5 - 8.0 g/dL ALBUMIN 3.6 (L) 3.9 - 4.8 g/dL GLOBULIN 2.8 1 - 4.8 g/dL A/G Ratio 1.29 1.00 - 4.80 RATIO Basic metabolic panel Specimen: Blood Result Value Ref Range SODIUM 135 133 - 146 mmol/L CHLORIDE 96 96 - 108 mmol/L POTASSIUM 4.0 3.3 - 5.1 mmol/L CO2 26 21 - 35 mmol/L BUN 42 (H) 6 - 19 mg/dL CREATININE 3.30 (H) 0.5 - 1.5 mg/dL GLUCOSE 321 (H) 70 - 99 mg/dL CALCIUM 8.1 (L) 8.4 - 10.3 mg/dL EGFR 15 (L) >59 mL/min/1.73m2 ANION GAP 17 10 - 20 mmol/L CBC and differential Specimen: Blood Result Value Ref Range WBC 9.35 4.00 - 11.00 K/uL RBC 2.64 (L) 4.00 - 5.20 M/uL HGB 8.6 (L) 12.0 - 16.0 g/dL HCT 25.9 (L) 36.0 - 46.0 % PLT 190 150 - 450 K/uL MCV 98.1 80.0 - 100.0 fL MCH 32.6 (H) 27.0 - 31.0 pg MCHC 33.2 32.0 - 36.0 g/dL RDW 13.2 11.5 - 14.5 % MPV 9.8 8.4 - 12.0 fL NRBC 0.00 0.00 /100 WBCs ABSOLUTE NRBC 0.00 0.00 K/uL DIFF METHOD Auto NEUTS 72.8 48.0 - 76.0 % LYMPHS 14.8 (L) 18.0 - 41.0 % MONOS 8.7 4.0 - 11.0 % EOS 2.7 0.0 - 5.0 % BASOS 0.6 0.0 - 1.5 % Granulocytes, immature (%) 0.4 0.0 - 0.9 % ABSOLUTE NEUTS 6.81 1.92 - 7.60 K/uL ABSOLUTE LYMPHS 1.38 0.72 - 4.10 K/uL ABSOLUTE MONOS 0.81 0.16 - 1.10 K/uL ABSOLUTE EOS 0.25 0.00 - 0.50 K/uL ABSOLUTE BASOS 0.06 0.00 - 0.15 K/uL Granulocytes, immature 0.04 0.00 - 0.09 K/uL Radiology Testing XR Chest Portable Final Result No acute abnormality. Medication from 06/05/2025 2155 to 06/06/2025 0342 Date/Time Order Dose Route Action Action by Comments 06/05/2025 2241 EDT acetaminophen (TYLENOL) tablet 975 mg 975 mg Oral Given Luz Colon RN -- 06/05/20252238 EDT ondansetron (ZOFRAN-ODT) disintegrating tablet 4 mg 4 mg Oral Not Given Luz Colon RN -- [facility] Patient presents as above. On arrival vital signs are fairly reassuring. Mild hypertension present.Patient appears in no acute distress. At this time we will obtain EKG, chest x-ray and laboratory studies particularly to assess for evidence of pulmonary edema or elevated potassium. Will provide symptomatic care. ED Course as of 06/06/25341 Tue Jun 05, 2025 2230 EKG demonstrated normal sinus rhythm. Rate of 67 no acute ischemic or infarctive changes. QTc mildly prolonged at 492. [JS] Wed Jun 06, 2025 0026 Potassium: 4.0 [JS] 0026 Hgb(!): 8.6 Lower than prior, Normocytic likely from ESRD. No prior bleeding [JS] 0210 Patient's workup reassuring. Unfortunately does not have GLASS INSTALLER TECHNICIAN at home until 8 AM and thus cannot get into her place. Will plan on discharge in the morning [JS] ED Course User Index [JS] Gumaro Hernandez DO Clinical Impressions as of 06/06/25341 SOB (shortness of breath) Clinical Impression Diagnosis Description Comment Final diagnosis SOB (shortness of breath) SOB (shortness of breath) -- Disposition: Home Gumaro Hernandez DO 06/06/25341 documented in this encounter Plan of Treatment Not on file documented as of this encounter Procedures Procedure Name Priority Date/Time Associated Diagnosis Comments XR CHEST PORTABLE Routine 06/05/2025 10: 37 PM EDT LFTS (HEPATIC PANEL) STAT 06/05/2025 10:30 PM EDT CBC AND DIFFERENTIAL STAT 06/05/2025 10:30 PM EDT BASIC METABOLIC PANEL STAT 06/05/2025 10:30 PM EDT ECG 12-LEAD STAT 06/05/2025 10:03 PM EDT documented in this encounter Results * XR Chest Portable (06/05/2025 10:37 PM EDT) Anatomical Region Laterality Modality Chest Computed Radiogr aphy 06/06/2025 12:2 0 AM EDT Impressions 06/06/2025 12:21 AM EDT No acute abnormality. Narrative 06/06/2025 12:21 AM EDT XR CHEST PORTABLE Referring clinician's provided indication for this examination in [facility]: Dyspnea (Shortness of Breath) COMPARISON: XR CHEST PORTABLE FINDINGS: Devices/Tubes/Lines: None. Lungs: No focal consolidation or pulmonary edema. Pleura: No pleural effusion or pneumothorax. Heart/Mediastinum: Stable cardiac silhouette enlargement. Bones/Soft Tissues: Degenerative changes of the shoulders and spine. No acute osseous abnormality. Procedure Note Krystal Encinas MD, PhD - 06/06/2025 XR CHEST PORTABLE Referring clinician's provided indication for this examination in [facility]:Dyspnea (Shortness of Breath) COMPARISON: XR CHEST PORTABLE FINDINGS: Devices/Tubes/Lines: None. Lungs: No focal consolidation or pulmonary edema. Pleura: No pleural effusion or pneumothorax. Heart/Mediastinum: Stable cardiac silhouette enlargement. Bones/Soft Tissues: Degenerative changes of the shoulders and spine. Noacute osseous abnormality. IMPRESSION: No acute abnormality. us Gumaro Hernandez DO IMG XR CHEST Final Result * (ABNORMAL) LFTs (hepatic panel) (06/05/2025 10:30 PM EDT) ALKALINE PHOSPHATASE 125(H) 39 - 117 U/L [facility] TOTAL BILIRUBIN 0.4 0.0 - 1.2 mg/dL [facility] DIRECT BILIRUBIN 0.2 0.0 - 0.2 mg/dL [facility] Bilirubin (Indirect) 0.2 0 - 1.5 mg/dL [facility] AST 14 0 - 37 U/L [facility] ALT 10 0 - 40 U/L [facility] TOTAL PROTEIN 6.4(L) 6.5 - 8.0 g/dL [facility] ALBUMIN 3.6(L) 3.9 - 4.8 g/dL [facility] GLOBULIN 2.8 1 - 4.8 g/dL [facility] A/G Ratio 1.29 1.00 - 4.80 RATIO [facility] Blood 06/05/2025 10:3 0 PM EDT 06/05/2025 10:35 PM EDT us Gumaro Hernandez DO LAB BLOOD ORDERABLES Final Re sult Performing Organization Address [facility] Co de Phone Number [address] [address] * (ABNORMAL) Basic metabolic panel (06/05/2025 10:30 PM EDT) Pathologist [facility] SODIUM 135 133 - 146 mmol/L [facility] CHLORIDE 96 96 - 108 mmol/L [facility] POTASSIUM 4.0 3.3 - 5.1 mmol/L [facility] CO2 26 21 - 35 mmol/L [facility] BUN 42(H) 6 - 19 mg/dL [facility] CREATININE 3.30(H) 0.5 - 1.5 mg/dL [facility] GLUCOSE 321(H) 70 - 99 mg/dL [facility] CALCIUM 8.1(L) 8.4 - 10.3 mg/dL [facility] EGFR 15(L) >59 mL/min/1.7 3m2 [facility] Comment:Estimated glomerular filtration rate calculated using the CKD-EPI refit equation. ANION GAP 17 10 - 20 mmol/L [facility] Blood 06/05/2025 10:3 0 PM EDT 06/05/2025 10:35 PM EDT us Gumaro Hernandez DO LAB BLOOD ORDERABLES Final Re sult Performing Organization Address City/[facility]/ZIP Co de Phone Number [address] [address] * (ABNORMAL) CBC and differential (06/05/2025 10:30 PM EDT) WBC 9.35 4.00 - 11.00 K/uL [facility] RBC 2.64(L) 4.00 - 5.20 M/uL [facility] HGB 8.6(L) 12.0 - 16.0 g/dL [facility] HCT 25.9(L) 36.0 - 46.0 % [facility] PLT 190 150 - 450 K/uL [facility] MCV 98.1 80.0 - 100.0 fL [facility] MCH 32.6(H) 27.0 - 31.0 pg [facility] MCHC 33.2 32.0 - 36.0 g/dL [facility] RDW 13.2 11.5 - 14.5 % [facility] MPV 9.8 8.4 - 12.0 fL [facility] NRBC 0.00 0.00 /100 WBCs [facility] ABSOLUTE NRBC 0.00 0.00 K/uL [facility] DIFF METHOD Auto [facility] NEUTS 72.8 48.0 - 76.0 % [facility] LYMPHS 14.8(L) 18.0 - 41.0 % [facility] MONOS 8.7 4.0 - 11.0 % [facility] EOS 2.7 0.0 - 5.0 % [facility] BASOS 0.6 0.0 - 1.5 % [facility] Granulocytes, immature (%) 0.4 0.0 - 0.9 % [facility] ABSOLUTE NEUTS 6.81 1.92 - 7.60 K/uL [facility] ABSOLUTE LYMPHS 1.38 0.72 - 4.10 K/uL [facility] ABSOLUTE MONOS 0.81 0.16 - 1.10 K/uL [facility] ABSOLUTE EOS 0.25 0.00 - 0.50 K/uL [facility] ABSOLUTE BASOS 0.06 0.00 - 0.15 K/uL [facility] Granulocytes, immature 0.04 0.00 - 0.09 K/uL [facility] Blood 06/05/2025 10:3 0 PM EDT 06/05/2025 10:35 PM EDT us Gumaro Hernandez DO LAB BLOOD ORDERABLES Final Re sult [facility] [address] [place] [address] * ECG 12-LEAD (06/05/2025 10:03 PM EDT) Ventricular Rate EKG/MIN 67 BPM [facility] Atrial Rate 67 BPM [facility] RI Interval 144 ms [facility] QRS Duration 96 ms [facility] QT Interval 466 ms [facility] QTC Interval 492 ms [facility] R Wave [place] -40 degrees [facility] T Wave [place] 50 degrees [facility] 06/05/2025 10:0 3 PM EDT 06/06/2025 8:56 AM EDT Narrative [facility] - 06/06/2025 8:56 AM EDT Normal sinus rhythm Left axis deviation Prolonged QT Abnormal ECG When compared with ECG of 05-Apr-2025 16:16, No significant change was found Confirmed by Zackary August ([id number]) on 06/06/2025 8:56:48 AM us Gumaro Hernandez DO ECG ORDERABLES Final Result [facility] documented in this encounter Visit Diagnoses Diagnosis SOB (shortness of breath)- Primary Shortness of breath documented in this encounter Administered Medications Inactive Administered Medications - up to 3 most recent administrations Medication Order MAR Action Action Date Dose Rate Site acetaminophen (TYLENOL) tablet 975 mg 975 mg, Oral, Once, On Wed06/05/25 at 2230, For 1 dose Given 06/05/2025 10:41 PM EDT 975 mg documented in this encounter Active and Recently Administered Medications Times are shown in EDT. Scheduled Medication Order 06/04/2025 06/05/2025 06/06/2025 acetaminophen (TYLENOL) tablet 975 mg (COMPLETED) 975 mg, Oral, Once, On Wed06/05/25 at 2230, For 1 dose 2241 (Given - Provider: Bret Colon RN) documented in this encounter Care Teams Director Of Vocational Guidance Relationship Specialty Start Date End Date Alexi Lynne MD [address] [place] [address] [place], [place] [id number] PCP - General Internal Medicine 04/05/25 documented as of this encounter Additional Source Comments The information contained in this document represents components of the legal health record. It is not the complete legal health record.[facility]
--- NOTE | ~2025-06-10 | CT_ITS ---
CLINICAL HISTORY: Epigastric left flank pain CT ABDOMEN AND PELVIS WITHOUT CONTRAST Comparison: None provided Findings: Please see the separate report for the CT chest. No hydronephrosis or obstructing calculus. Prominent renal vascular calcifications and probable multiple tiny nonobstructing bilateral intrarenal calculi. Prominent renal sinus lipomatosis bilaterally. No acute abnormalities in the remaining unenhanced solid organs. Surface nodularity in the liver can be seen with cirrhotic morphology. Nonspecific dystrophic calcification in the hepatic dome. Normal spleen size. No large calcified gallstone. Atherosclerotic changes; no AAA. No bowel obstruction, pneumoperitoneum, or pneumatosis.Moderate colonic stool burden. No ascites or organized fluid collection. No significant mesenteric or paracolic edema. Appendix is not identified with certainty. No significant inflammatory changes are seen in its expected location. Senescent changes in the uterus. Wall thickening in the urinary bladder which is poorly distended. Edema and wall thickening in the subcutaneous tissues of the right abdomen and pelvis. No wall enhancing fluid collection or gas locules. No acute fracture. IMPRESSION: 1. No acute obstructive uropathy. Nonobstructing bilateral nephrolithiasis. 2. Wall thickening in the urinary bladder most likely due to underdistention. In the appropriate clinical setting, cystitis is included in the differential. 3. Cellulitic changes in the right abdominal and pelvic wall with no underlying abscess or necrotizing fasciitis. 4. No obstructive or acute inflammatory changes in the gastrointestinal tract. 5. Cirrhotic liver morphology. This document has been electronically signed by: Florina Ji DO on 06/10/2025 16:08:35
--- NOTE | ~2025-06-10 | CT_ITS ---
CLINICAL HISTORY: Left flank pain. Pneumonia? CT CHEST WITHOUT CONTRAST Comparison: None provided Findings: The heart size is normal.Prominent coronary artery calcifications. No significant pericardial effusion. Normal caliber thoracic aorta. No thyromegaly or mediastinal lymphadenopathy. No consolidation, pleural effusion or pneumothorax. There is a 1.1 cm irregular nodular opacity in the left base, axial image 118 series 5 and sagittal image 51 series 10. Please see the separate report for the CT abdomen and pelvis. No acute fractures. IMPRESSION: 1. No segmental or lobar pneumonia. 2. 1.1 cm irregular nodule in the left lower lobe may be inflammatory or infectious in etiology. Recommend follow-up per Fleischner criteria. ACR Fleischner Society recommendations (MacMahon, et al. Radiology 2017; 284(1): 228-43) suggest the following: For patients with high or low risk of lung cancer, follow-up chest CT at 3 months. If stable, additional follow-up chest CT at 18 to 24 months. Alternatively (or additionally) PET/CT or tissue sampling could be performed. This document has been electronically signed by: Florina Ji DO on 06/10/2025 15:59:50
[2025-06-10 13:31] VITALS: BP 157/78; BP 169/65; PULSE 70; PULSE 72; RESP 17; TEMP 37.1; O2SAT 97; O2SAT 99; BMI 64.6
--- NOTE | 2025-06-10 13:37 | ECG_ITS ---
Test Reason : NAUSEA/VOMITING Blood Pressure : */* mmHG Vent. Rate : 64 BPM Atrial Rate : 64 BPM P-R Int : 144 ms QRS Dur : 94 ms QT Int : 452 ms P-R-T Axes : 63 -39 50 degrees QTcB Int : 466 ms Normal sinus rhythm Left axis deviation Abnormal ECG When compared with ECG of 01-Jul-2021 12:49, [place] has shifted leftward Referred By: Hardeep Vasquez Electronically Signed By: Lopez Ray
[2025-06-10 13:50] LABS: MANUAL DIFF FLAG NO
[2025-06-10 13:51] LABS: Hematocrit 27.3 % (37.0-47.0); Hemoglobin 9.0 g/dl (12.0-16.0); Imm Gran Abs Auto 0.09 X10*3/uL (0.00-0.03); Imm Gran Pct Auto 0.9 % (0.0-0.4); Lymphocytes Absolute Auto 1.3 X10*3/uL (1.2-4.9); Mean Corpuscular HGB Conc 33.0 g/dl (31.0-35.0); Mean Corpuscular Hemoglobin 32.3 pg (27.0-33.0); Mean Corpuscular Volume 97.8 fL (80.0-98.0); NRBC Abs Auto 0.000 X10*3/uL (0.0-0.012); NRBC Pct Auto 0.0 /100WBC (0.0-0.2); Platelet Count 212 X10*3/uL (160-400); Red Blood Count 2.79 X10*6/uL (4.20-5.50); White Blood Count 10.1 X10*3/uL (4.8-10.8)
--- NOTE | 2025-06-10 13:53 | ED_ITS ---
HPI - General Adult General Chief complaint: Nausea/Vomiting/Diarrhea Stated complaint: NAUSEA VOMITING L FLANK PAIN Time Seen by Provider: 06/10/25 13:27 Source: patient Mode of arrival: ambulatory Limitations: no limitations History of Present Illness ED Provider: Hardeep Huggins HPI narrative: 64 yold female with pmh of ESRD presents to the ED nausea, vomiting, epigastric pain and left flank pain since Wednesday. Patient has had hemodialysis last this past Wednesday. Patient denies any chest pain or shortness of breath. Patient denies any coughing fever or chills. Patient states last bowel movement was this past Wednesday. Related Data Home Medications ?Medication ?Instructions ?Recorded ?Confirmed nystatin 100,000 unit/gram topical 1 appl topical TID 07/11/22 06/11/25 cream Triamcinolone 0.1% Ointment 1 appl topical TID PRN lis betic 05/13/25 06/11/25 psoriasis epoetin silverio 20,000 unit/mL 20,000 unit subcut TH 04/3006/11/25 injection solution Previous Rx's ?Medication ?Instructions ?Recorded blood sugar diagnostic #200 ea 12/05/21 blood sugar diagnostic (Accu-Chek #300 ea 12/05/21 Berna Plus test strips) hospital bed #1 ea 07/06/22 pen needle, diabetic 32 gauge x #100 ea 07/07/22 insulin syringe-needle U-100 1 mL #100 ea 07/08/22 30 gauge x 1/2 (BD Insulin Syringe Ultra-Fine) acetaminophen 325 mg tablet 650 mg (2 x 325 mg) PO Q6H PRN 06/11/25 Pain (Scale Score 4-6) 30 days #3 tabs albuterol sulfate 90 mcg/actuation 2 puff inhalation Q 4H PRN 06/11/25 aerosol inhaler bronchospasm 30 days #8.5 gr ams amlodipine 10 mg tablet 10 mg PO DAILY 30 days #30 t abs 06/11/25 bisacodyl 10 mg rectal suppository 10 mg MT DAILY PRN Constipation 30 06/11/25 days #30 ea docusate sodium 100 mg capsule 100 mg PO DAILY 30 days #30 caps 06/11/25 ferrous fumarate 325 mg (106 mg 325 mg PO DAILY 30 day s #30 tabs 06/11/25 iron) tablet gabapentin 100 mg capsule 100 mg PO BID 30 days #60 ca ps 06/11/25 glucagon 1 mg solution for 1 mg IM Q20M PRN low BG 30 days 06/11/25 injection #30 ea hydralazine 25 mg tablet 25 mg PO TID 30 days #30 tab s 06/11/25 insulin glargine 100 unit/mL (3 20 unit (0.2 mL) subcu t BEDTIME 30 06/11/25 mL) subcutaneous pen (Lantus days #3 mL Solostar U-100 Insulin) insulin lispro 100 unit/mL 10 - 18 unit (0.1 - 0.18 mL ) 06/11/25 subcutaneous solution (Humalog subcut TIDWM 30 days #1 0 mL U-100 Insulin) ondansetron 4 mg disintegrating 4 mg translingual TIDA C PRN nausea 06/11/25 tablet 30 days #12 tabs oxybutynin chloride 15 mg 15 mg PO DAILY 30 days #30 t abs 06/11/25 tablet,extended release 24 hr pantoprazole 20 mg tablet,delayed 20 mg PO DAILY 30 da ys #30 tabs 06/11/25 release polyethylene glycol 3350 17 gram 17 g PO DAILY 30 days #30 ea 06/11/25 oral powder packet ropinirole 0.25 mg tablet 0.25 mg PO BEDTIME 30 days # 30 tabs 06/11/25 sennosides 8.6 mg tablet (senna) 17.2 mg (2 x 8.6 mg) PO BEDTIME 30 06/11/25 days #30 tabs sodium phosphates 19 gram-7 118 ml MT DAILY 30 days #3 0 mL 06/11/25 gram/118 mL enema Allergies Allergy/AdvReac Type Severity Reaction Status Date / Time metformin (METFORMIN) Allergy Severe HIVES Verified 06/10/25 13:35 heparin Allergy Intermediate Itching Verified 06/11/25 03:56 canagliflozin (From Invokana) Allergy Hives Verified 06/10/25 13:35 Review of Systems 2 Review of Systems: Left flank pain, epigastric pain, nausea, constipation Yes all other systems are reviewed and are negative PMF Past Medical History Medical History HTN (hypertension) HLD (hyperlipidemia) Frequent UTI Anemia Acute on chronic diastolic (congestive) heart failure Type 2 diabetes mellitus with obesity Clostridium difficile diarrhea Morbid obesity Detrusor dysfunction Bladder outlet obstruction Esophagitis CKD (chronic kidney disease) stage 4, GFR 15-29 ml/min Hypothyroidism IBS (irritable bowel syndrome) Surgical History History of tubal ligation Family History Family History Father Diabetes Mother Diabetes Hypertension Breast cancer Family/Other Breast cancer Uterine cancer Social History Social History Household Members: None Housing: Apartment Do you presently have visiting nurse or other home services: Yes ([employer] services) Alcohol intake: never Comment: bedbound at baseline Patient Tobacco Use Status: Former Tobacco user e-Cigarette/Vaping Use: Never Used Second Hand Smoke Exposure: No Advance Directives: Yes Advance Directives on File: Yes Advance Directives Date on File: 10/09/20 Do you have a plan to hurt others: No Plan Nutrition Risks: No Nutritional Risk Patient : No service: No Current occupational status: disabled Cognitive needs: No Hearing needs: No Vision needs: Yes Physical Exam ED Vital Signs: Vital Signs - 24 hr 06/10/25 23:30 Temperature 98.2 F Pulse Rate 60 Respiratory Rate 17 Blood Pressure 177/70 H Pulse Oximetry 99 Oxygen Delivery Method Room Air BMI result Body Mass Index 64.6 Const General: cooperative, healthy appearing, comfortable, no acute distress, well developed, alert and awake Neck Neck: Yes no meningeal signs Chest Chest palpation & inspection: normal inspection of the chest and normal palpation of entire chest wall Resp Effort & Inspection: normal respiratory effort and able to speak in complete sentences Auscultation: clear to auscultation bilaterally Cardio Jugular venous distension: no JVD Heart sounds: S1 normal heart sound present and S2 normal heart sound present GI Inspection: Yes normal to inspection Palpation (GI): Soft to palpation, not firm, Tenderness to palpation present (GI) in the epigastrum, no guarding and not rigid General: Yes no CVA tenderness Back/Spine/Pelvis Back: no CVA tenderness and No back tenderness Skin General skin exam: no rashes or lesions noted, elasticity normal and turgor normal Neuro Other: Bed-bound General: tone normal, moves all extremities, Normal light touch and pain sensation, no meningeal signs, no focal motor deficits, CN's II-XI intact bilaterally and normal sensation to monofilament Extrem General: Yes normal to inspection, Yes full ROM and Yes capillary refill normal Psych Appearance: grossly normal, well kempt and not disheveled Medications Administered Generic Name Dose Route Start Last Admin Trade Name Freq PRN Reason Stop Dose Admin Gabapentin 100 mg 06/10/25 23:45 06/11/25 19:47 Gabapentin 100 Mg Capsule PO 100 mg BID KENTRELL Administration Vancomycin HCl 2,000 mg in 500 mls @ 250 mls/hr 06/11/25 20:00 06/11/25 19:47 Vancomycin/Ns IV 06/11/25 21:59 250 mls/hr ONCE ONE Administration Insulin Glargine 20 unit 06/10/25 23:45 06/11/25 00:15 Insulin Glargine,Hum.Rec.Anlog 100 Unit/Ml 10 Ml Vial SUBCUT 20 unit BEDTIME KENTRELL Administration Insulin Human Lispro 0 - 10 unit 06/11/25 07:30 06/11/25 16:41 Insulin Lispro 100 Unit/Ml 3 Ml Vial SUBCUT Not Given QIDACHS [facility] Protocol Lidocaine HCl 0.5 ml 06/11/25 16:45 06/11/25 16:57 Lidocaine Hcl 1 % Mpf 2 Ml Vial SUBCUT Not Given [id number] [facility] Meropenem 1 gm 06/11/25 18:00 06/11/25 18:41 Meropenem 1 Gm Vial IVPUSH 1 gm Q24H KENTRELL Administration Ondansetron HCl 4 mg 06/11/25 03:21 06/11/25 04:46 Ondansetron Hcl 4 Mg/2 Ml Vial IVPUSH 4 mg Q8H PRN Administration Nausea and Vomiting Pantoprazole Sodium 20 mg 06/11/25 09:00 06/11/25 08:30 Pantoprazole Sodium 20 Mg Tablet.Dr PO 20 mg DAILY KENTRELL Administration Senna 17.2 mg 06/11/25 21:00 06/11/25 19:47 Sennosides 8.6 Mg Tablet PO 17.2 mg BEDTIME KENTRELL Administration Sodium Chloride 3 ml 06/11/25 08:00 06/11/25 19:47 0.9 % Sodium Chloride Flush 3 Ml Syringe IVFLUSH 3 ml QSHIFT [facility] Administration Discontinued Medications Generic Name Dose Route Start Last Admin Trade Name Karis PRN Reason Stop Dose Admin Amlodipine Besylate 10 mg 06/11/25 09:00 06/11/25 08:31 Amlodipine Besylate 10 Mg Tablet PO 10 mg DAILY [facility] Administration Protocol Ceftriaxone Sodium 1 gm 06/10/25 18:22 06/10/25 18:49 Ceftriaxone Sodium 1 Gm Vial IVPUSH 06/10/25 18:23 1 gm ONCE ONE Administration Heparin Sodium (Porcine) 5,000 unit 06/11/25 03:30 06/11/25 03:55 Heparin Sodium,Porcine 5,000 Unit/Ml Vial SUBCUT Not Given Q12H [facility] Insulin Human Lispro 10 - 18 unit 06/10/25 23:45 06/11/25 09:46 Insulin Lispro 100 Unit/Ml 3 Ml Vial SUBCUT Not Given TIDWM [facility] Morphine Sulfate 4 mg 06/10/25 13:52 06/10/25 14:16 Morphine Sulfate 4 Mg/Ml Cartridge IVPUSH 06/10/25 13:53 4 mg ONCE ONE Administration Protocol Ondansetron HCl 4 mg 06/10/25 13:51 06/10/25 14:16 Ondansetron Hcl 4 Mg/2 Ml Vial IVPUSH 06/10/25 13:52 4 mg ONCE ONE Administration Medical Decision Making Medical Decision Making [facility] Narrative: 64-year-old female end-stage renal disease hemodialysis Wednesday presents to ED for epigastric pain, left flank pain with nausea and vomiting. Patient has been compliant with her dialysis. Patient constipated since Wednesday. Labs EKG both pain Zofran dry CT scan chest abdomen ordered. 5:50pm: Patient's vital signs are stable. Patient's potassium is normal. Negative for peaked T-waves on EKG. Two troponins flat. Patient has kidney function shows acute on chronic kidney injury but patient is due for dialysis tomorrow. Patient is found to have UTI. Chest CT shows possible nausea versus pneumonia. Cat scan also shows cellulitic changes of right lower abdominal wall pelvic area. On physical exam areas where cat scan shows cellulitis negative for any erythema or tenderness but shows chronic skin changes with powder with patient has had fungal cellulitis in the past. Patient states she does not want to go home he does not feel safe due to her not having enough resources. Patient lives alone states that is not have enough home services. Patient also states she does not want to go back to [facility] to be dialyzed and preferred to be dialyzed in [facility] ED. Patient informed presently that is no indication for admission for emergent dialysis. Patient is agreeable to case management for further services and made aware most likely case planner will sent her to her dialysis center tomorrow for dialysis. Patient was informed it is very difficult to change dialysis centers. Left Arm Graft has thrill. 6:20pm: Case signed out Dr. Arroyo who will follow. Differential Diagnosis Differential Diagnoses: The differential diagnosis associated with the presentation includes Admission/Observation Consideration of admission/observation: Escalation of care including admission/observation considered Lab Data 06/11/25 06:30 06/11/25 06:30 Labs: Lab Results 06/10/25 06/10/25 06/10/25 Range/Units 13:45 15:21 16:15 WBC 10.1 (4.8-10.8) X10*3/uL RBC 2.79 L (4.20-5.50) X10*6/uL Hgb 9.0 L (12.0-16.0) g/dl Hct 27.3 L (37.0-47.0) % MCV 97.8 (80.0-98.0) fL MCH 32.3 (27.0-33.0) pg MCHC 33.0 (31.0-35.0) g/dl RDW 13.2 (11.0-16.0) % Plt Count 212 (160-400) X10*3/uL MPV 10.0 (9.4-12.3) fL Immature Gran % (Auto) 0.9 H (0.0-0.4) % Neut % (Auto) 74.1 H (45-73) % Lymph % (Auto) 13.1 L (20-40) % [place] % (Auto) 9.0 (2-11) % Eos % (Auto) 2.4 (0-4) % Baso % (Auto) 0.5 (0-2) % Lymph # (Auto) 1.3 (1.2-4.9) X10*3/uL [place] # (Auto) 0.9 (0.1-1.2) X10*3/uL Eos # (Auto) 0.2 (0.0-0.4) X10*3/uL Baso # (Auto) 0.1 (0.0-0.2) X10*3/uL Abs Immat Gran (auto) 0.09 H (0.00-0.03) X10*3/uL Absolute Neuts (auto) 7.5 (2.0-8.3) x10*3/uL Absolute Nucleated RBC 0.000 (0.0-0.012) X10*3/uL Nucleated RBC % (auto) 0.0 (0.0-0.2) /100WBC PT 10.7 L (10.9-12.4) SEC INR 0.9 (0.9-1.1) Sodium 135 (135-145) mmol/L Potassium 4.2 D (3.3-5.1) mmol/L Chloride 101 (96-108) mmol/L Carbon Dioxide 23 (22-29) mmol/L Anion Gap 15 (12-20) BUN 47 H (9-16) mg/dL Creatinine 3.76 H (0.5-1.4) mg/dL Estim Creat Clear Calc 25.1 Estimated GFR 12 POC Glucose (60-115) mg/dL Random Glucose 215 H (60-115) mg/dL Calcium 8.2 L (8.4-10.2) mg/dL Magnesium 1.8 (1.6-2.6) mg/dL Total Bilirubin 0.3 (0.0-1.0) mg/dL AST 25 (5-31) U/L ALT 12 (0-31) U/L Alkaline Phosphatase 122 H (39-117) U/L Troponin I High Sens 19.0 H 18.9 H (<3.5-17.0) ng/L Total Protein 6.4 L (6.5-8.0) g/dL Albumin 3.5 (3.5-5.0) g/dL Lipase 33 (8-78) U/L Urine Color Yellow Urine Appearance Cloudy Urine pH 8.0 (5.0-9.0) Ur Specific [place] 1.010 (1.005-1.025) Urine Protein 100 (2+) H (Neg-Trace) mg/dL Urine Glucose (UA) 250 H (Negative) mg/dL Urine Ketones Negative (Negative) mg/dL Urine Blood Negative (Negative) Urine Nitrite Negative (Negative) Ur Leukocyte Esterase Moderate (2+) H (Negative) Urine RBC 0-2 (0-2) /HPF Urine WBC 21-50 H (0-5) /HPF Ur Squamous Epith Cells 0-2 (0-2) /HPF Urine Bacteria 4+ (None Seen) Hyaline Casts 0-2 (0-2) /LPF 06/10/25 Range/Units 21:09 WBC (4.8-10.8) X10*3/uL RBC (4.20-5.50) X10*6/uL Hgb (12.0-16.0) g/dl Hct (37.0-47.0) % MCV (80.0-98.0) fL MCH (27.0-33.0) pg MCHC (31.0-35.0) g/dl RDW (11.0-16.0) % Plt Count (160-400) X10*3/uL MPV (9.4-12.3) fL Immature Gran % (Auto) (0.0-0.4) % Neut % (Auto) (45-73) % Lymph % (Auto) (20-40) % [place] % (Auto) (2-11) % Eos % (Auto) (0-4) % Baso % (Auto) (0-2) % Lymph # (Auto) (1.2-4.9) X10*3/uL [place] # (Auto) (0.1-1.2) X10*3/uL Eos # (Auto) (0.0-0.4) X10*3/uL Baso # (Auto) (0.0-0.2) X10*3/uL Abs Immat Gran (auto) (0.00-0.03) X10*3/uL Absolute Neuts (auto) (2.0-8.3) x10*3/uL Absolute Nucleated RBC (0.0-0.012) X10*3/uL Nucleated RBC % (auto) (0.0-0.2) /100WBC PT (10.9-12.4) SEC INR (0.9-1.1) Sodium (135-145) mmol/L Potassium (3.3-5.1) mmol/L Chloride (96-108) mmol/L Carbon Dioxide (22-29) mmol/L Anion Gap (12-20) BUN (9-16) mg/dL Creatinine (0.5-1.4) mg/dL Estim Creat Clear Calc Estimated GFR POC Glucose 210 H (60-115) mg/dL Random Glucose (60-115) mg/dL Calcium (8.4-10.2) mg/dL Magnesium (1.6-2.6) mg/dL Total Bilirubin (0.0-1.0) mg/dL AST (5-31) U/L ALT (0-31) U/L Alkaline Phosphatase (39-117) U/L Troponin I High Sens (<3.5-17.0) ng/L Total Protein (6.5-8.0) g/dL Albumin (3.5-5.0) g/dL Lipase (8-78) U/L Urine Color Urine Appearance Urine pH (5.0-9.0) Ur Specific [place] (1.005-1.025) Urine Protein (Neg-Trace) mg/dL Urine Glucose (UA) (Negative) mg/dL Urine Ketones (Negative) mg/dL Urine Blood (Negative) Urine Nitrite (Negative) Ur Leukocyte Esterase (Negative) Urine RBC (0-2) /HPF Urine WBC (0-5) /HPF Ur Squamous Epith Cells (0-2) /HPF Urine Bacteria (None Seen) Hyaline Casts (0-2) /LPF Attestation Attending Attestation: Patient will require dialysis tomorrow. She is due for dialysis tomorrow. She already received dialysis for 2 hours on Wednesday. Patient is currently pending case management and PT evaluation. She does noted to have some signs of UTI. IV ceftriaxone given. We will plan to admit patient for dialysis. I have discussed the case with the PA as well. Critical Care Time Critical Care Time Critical Care Time: Yes Total Critical Care Time: 60 Attestation: ESRD patient presented for nausea and vomitting. .Zofran and IV morphine ordered. CT scans ordered. has UTI. Antibiotics ordered. Antibiotics ordered by Dr. Arroyo. Discharge Plan Discharge Clinical Impression: Acute UTI, Dialysis patient, End-stage renal disease (ESRD), Weakness Patient Disposition: Admitted As Inpatient Interventions: Admission Worksheet (ED) Last Done: 06/11/25 06:40 Discharge Date/Time: 06/11/25 09:27
--- OUTSIDE RECORDS SUMMARY | 2025-06-10 13:55 | XMS_ITS | Encounter Summary ---
Author Organization [facility] Address [address] [place] [address] Phone Care Team Providers Care Fiber Optics Engineer Name Role Phone Terry Ochoa MD Primary Care Provider [phone] Encounter Details Date Type Department Care Team (Late st Contact Info) Description 02/05/2021 Documentation Only [facility] [address] [place] [id number] Tawny Churchill [place] Social History Tobacco Use [...] 204 mg/dL BUN 36 mg/dL eGFR Non-Afr Mauritian 30 eGFR 35 Sodium 141 mEq/L Potassium 4.5 mEq/L Chloride 111 Carbon Dioxide 18 mmol/L Calcium 8.5 mg/dL Phosphorus, Serum 4.4 mg/dL Albumin (Blood) 2.1 g/dL Creatinine 1.8 mg/dL Anion Gap 12 Blood specimen (specimen) 08/21/2020 Historical Provider LAB BLOOD ORDERABLES Alyssa l Result documented in this encounter Visit Diagnoses Not on filedocumented in this encounter Care Teams Fiber Optics Engineer Relationship Specialty Start Date End Date Terry Ochoa MD [address] [place], [place] PCP - General Internal Medicine 07/21/23 documented as of this encounter
--- OUTSIDE RECORDS SUMMARY | 2025-06-10 13:55 | XMS_ITS ---
Author Organization [facility] Care Team Providers Care Dental Professional Name Role Phone Raji Samano Unavailable Unavailable Jazmyne, Raji Unavailable Unavailable Candy Sanchez Unavailable Unavailable Allergies and adverse reactions Code CodeSystem Substance Reaction Severity StartDate Concern Status 9090136 RXNORM Canagliflozin Unknown 10/09/2020 active 6809 RXNORM Metformin Unknown 10/09/2020 active Care Team Name Role Address Phone Organization Dates Raji Samano PCP [address], [place], [address], [place] (Office): : [facility] 10/09/2020 - 10/30/2020 Raji Samano [address], [place], [address], [place] (Office): : [facility] 10/09/2020 - 10/30/2020 Candy Sanchez [address], [place], [address], [place] (Office): [facility] 10/09/2020 - 10/30/2020 Immunizations Immunization Status Vaccine Details Vaccine Code CodeSystem Date Notes Influenza cancelled Influenza, split virus, trivalent, injectable, contains preservative 141 CVX created date: 10/09/2020 consent date: 10/18/2020 had this season TB 1 Step Mantoux (PPD) completed tuberculin skin test; unspecified formulation lotNumber: [id number] expiry: 06/30/2018 Mfg: PAR PHAMACEUTICAL Given 0.1 ml Right Forearm intradermally 98 CVX created date: 03/13/2017 consent date: 03/13/2017 administer ed date: 03/13/2017 Educated by annette on 03/13/2017 Administered by: elizabeth TB 2 Step Mantoux Skin Test completed tuberculin skin test; unspecified formulation lotNumber: [id number] expiry: 09/30/2021 Mfg: PAR pharmaceical Given Left [...] 0 No delirium ind icated PHQ-9 00 Insurance Providers Problems Problem # Description Date of onset Resolved Date Code CodeSystem Concern Status 1 CHRONIC KIDNEY DISEASE, UNSPECIFIED 10/09/[address] active 2 DIARRHEA, UNSPECIFIED 10/09/[address] active 3 DIFFICULTY IN WALKING, NOT ELSEWHERE CLASSIFIED 10/09/[address] active 4 DUODENITIS WITHOUT BLEEDING 10/09/[address] active 5 DYSPHAGIA, OROPHARYNGEAL PHASE 10/09/[address] active 6 GASTRITIS, UNSPECIFIED, WITHOUT BLEEDING 10/09/[address] active 7 IRRITABLE BOWEL SYNDROME, UNSPECIFIED 10/09/[address] active 8 MUSCLE WASTING AND ATROPHY, NOT ELSEWHERE CLASSIFIED, LEFT LOWER LEG 10/09/[address] active 9 MUSCLE WASTING AND ATROPHY, NOT ELSEWHERE CLASSIFIED, RIGHT LOWER LEG 10/09/[address] active 10 MUSCLE WASTING AND ATROPHY, NOT ELSEWHERE CLASSIFIED, UNSPECIFIED THIGH 10/09/[address] active 11 NAUSEA WITH VOMITING, UNSPECIFIED 10/09/[address] active 12 OTHER REDUCED MOBILITY 10/09/[address] active 13 UNSPECIFIED URINARY INCONTINENCE 10/09/[address] active 14 ESSENTIAL (PRIMARY) HYPERTENSION 03/12/[address] active 15 HISTORY OF FALLING 03/12/[address] active 16 HYPERLIPIDEMIA, UNSPECIFIED 03/12/[address] active 17 MORBID (SEVERE) OBESITY DUE TO EXCESS CALORIES 03/12/[address] active 18 MUSCLE WEAKNESS (GENERALIZED) 03/12/[address] active 19 OTHER ABNORMALITIES OF GAIT AND MOBILITY 03/12/20 17 10/18/[address] completed 20 PAIN IN RIGHT KNEE 03/12/[address] active 21 TYPE 2 DIABETES MELLITUS WITH DIABETIC NEUROPATHY, UNSPECIFIED 03/12/[address] active 22 URINARY TRACT INFECTION, SITE NOT SPECIFIED 03/12/20 17 10/18/[address] completed Reason for Referral No Reasons for Referral Entered Social History Social History Observation Description Start Date End Date Code Code System Current Smoking Status Tobacco smoking consumption unknown 485999824 SNOMED CT Sex Assigned At Female 1960 98934-1 [facility] Gender Identity Sexual Orientation Vital Signs Code Code System Vitals Name Values and Units Timing Information 9279-1 [facility] Respiratory Rate Value=18.0 Units=/m in 10/30/2020 8310-5 [facility] Body Temperature Value=96.7 Units= F 10/30/2020 33713-4 [facility] O2 % BldC Oximetry Value=94.0 Units= % 10/30/2020 2339-0 [facility] Blood Sugar Nksca=871.0 Units=mg/dL 10/30/2020 91913-0 [facility] Pain Level Value=0.0 10/30/2020 8462-4 [facility] Blood Pressure-Diastolic Value=68 Un its=mmHg 10/30/2020 8480-6 [facility] Blood Pressure-Systolic Nwdml=768 Un its=mmHg 10/30/2020 8867-4 [facility] Heart rate Value=80.0 Units=/min 10/2020 25713-3 [facility] Weight Daaez=129.8 Units=Lbs 8302-2 [facility] Height Value=66.0 Units=Inches 03/13/2017
--- OUTSIDE RECORDS SUMMARY | 2025-06-10 13:56 | XMS_ITS | Clinical Summary ---
Author Organization [facility] Address [address] [facility] [address] [place] [address] Phone Care Team Providers Care Computer Peripheral Equipment Operator Name Role Phone Terry Ochoa MD Primary Care Provider [phone] Allergies Active Allergy Reactions Criticality Noted Date [...] Encounters Date Type Department Care Team Description 06/08/2025 Orders Only [facility] [address] [place] [address] Alan Mccarthy MD 06/04/2025 Orders Only [facility] [address] [place] [address] Provider, Albert Ordering 05/11/2025 Orders Only [facility] [address] [place] [address] Alan Mccarthy MD 05/11/2025 Treatment [facility], [address] [place] [address] Meli Benita, ADVISOR [employer] End stage renal disease; Dependence on renal [...] Additional history exists Influenza Vaccine (#1) 2025 , 06/28/2020, 09/10/2016 Procedures Procedure Name Priority Date/Time Associated Diagnosis Comments IMMUNO CHEMISTRY Routine 06/08/2025 S[facility] LAB RESULTS Routine 06/04/2025 HD KINETICS Routine 06/04/2025 CHEMISTRY Routine 06/04/2025 POST CHEMISTRY Routine 06/04/2025 SPECIAL CHEMISTRY Routine 05/30/2025 TRACE ELEMENTS Routine 05/30/2025 CHEMISTRY Routine 05/30/2025 IMMUNO CHEMISTRY Routine 05/30/2025 CHEMISTRY Routine 05/30/2025 HEMATOLOGY Routine 05/30/2025 SPECTRA ALBERT LAB RESULTS Routine 05/11/2025 TRACE ELEMENTS Routine 05/11/2025 HD KINETICS Routine 05/11/2025 POST CHEMISTRY Routine 05/11/2025 IMMUNO CHEMISTRY Routine 05/11/2025 SPECIAL CHEMISTRY Routine 05/11/2025 CHEMISTRY Routine 05/11/2025 CHEMISTRY Routine 05/11/2025 HEMATOLOGY Routine 05/11/2025 HEMOGLOBIN A1C Routine 02/04/2022 11:45 AM EDT from Last 3 Months or Most Recently Relevant to Health Maintenance Results * IMMUNO CHEMISTRY (06/08/2025) Only the most recent of3 resultswithin the time period is included. Pathologist [facility] Hepatitis B Surface Ab <10 mIU/mL [facility] Comment: Reference Range: <10 mIU/mL Non-Immune >=10 mIU/mL Immune The magnitude of the measured result above 10 mIU/mL is not indicative of the total amount of antibody present. Custom Exception 06/08/2025 06/09/2025 11: 40 AM EDT Narrative [facility] - 06/09/2025 Unless otherwise specified, test(s) performed at: [facility], [address] [place], [place] [id number] SMELTER CHARGER: Michael Fields M.D. For any questions, please call customer service at FREQUENCY:OTHER Resulting Agency Comment Specimen source: Serum Alan Mccarthy MD LAB BLOOD ORDERABLES Final Re sult [facility] See order comments or contact performing lab Unknown, [place] * HD KINETICS (06/04/2025) Only the most recent of2 resultswithin the time period is included. [facility] % Urea Reduction 70 65 - 80 % [facility] 06/04/2025 06/05/2025 9:0 8 AM EDT Narrative [facility] - 06/05/2025 Unless otherwise specified, test(s) performed at: [facility], [address] [place] [address] SMELTER CHARGER: Michael Fields M.D. For any questions, please call customer service at FREQUENCY:OTHER Resulting Agency Comment Specimen source: Plasma Alan Mccarthy MD LAB BLOOD ORDERABLES Final Re sult Performing Organization Address [facility]/ZIP Co de Phone Number [facility] See order comments or contact performing lab Unknown, [place] * POST CHEMISTRY (06/04/2025) Only the most recent of2 resultswithin the time period is included. BUN Post Dialysis 18 6 - 19 mg/dL [facility] 06/04/2025 06/05/2025 9:0 8 AM EDT Narrative SPECTRAE - 06/05/2025 Unless otherwise specified, test(s) performed at: [facility], [address] [place] [address] SMELTER CHARGER: Michael Fields M.D. For any questions, please call customer service at FREQUENCY:OTHER Resulting Agency Comment Specimen source: Plasma Alan Mccarthy MD LAB BLOOD ORDERABLES Final Re sult Performing Organization Address [facility] de Phone Number [facility] See order comments or contact performing lab Unknown, [place] * (ABNORMAL) Spectrae Chemistry (06/04/2025) Only the most recent of5 resultswithin the time period is included. BUN 60(H) 6 - 19 mg/dL [facility] 06/04/2025 06/05/2025 10: 33 AM EDT Narrative SPECTRAE - 06/05/2025 Unless otherwise specified, test(s) performed at: [facility], [address] [place] [address] SMELTER CHARGER: Michael Fields M.D. For any questions, please call customer service at FREQUENCY:OTHER Resulting Agency Comment Specimen source: Serum Alan Mccarthy MD LAB BLOOD ORDERABLES Final Re sult Performing Organization Address [facility]/ZIP Co de Phone Number [facility] See order comments or contact performing lab Unknown, [place] * Spectra ALBERT Lab Results (06/04/2025) Only the most recent of2 resultswithin the time period is included. eKdrt/V 1.46 [facility] eKt/V Gotch 1.46 [facility] nPCR_HD 0.97 [facility] PCR 71.63 [facility] spKt/V (Daugirdas II) 1.50 [facility] eKt/V ([place]attersall) 1.31 [facility] eNPCR 0.93 [facility] spKt/V Got 1.67 [facility] WSTDKT/V 2.4 [facility] 06/04/2025 06/04/2025 [facility] Ordering Provider LAB BLOOD ORDERABLES Final Result Performing Organization Address [facility] de Phone Number [facility] Contact Performing lab Unknown, [place] * (ABNORMAL) SPECIAL CHEMISTRY (05/30/2025) Only the most recent of2 resultswithin the time period is included. Pathologist [facility] Vitamin D, 25-OH, Total 10.2(L) 30.0 - 100.0 ng/mL [facility] Comment: Please Note: Effective June 28, 2023, the methodology for this test has changed to the [facility]. 05/30/2025 05/31/2025 10: 28 AM EDT Narrative SPECTRAE - 06/01/2025 Unless otherwise specified, test(s) performed at: [facility], [address] [place] [address] SMELTER CHARGER: Michael Fields M.D. For any questions, please call customer service at FREQUENCY:MONTHLY Resulting Agency Comment Specimen source: Serum Alan Mccarthy MD LAB BLOOD BANK TEST ORDERABLE S Final Result Performing Organization Address [facility] Co de Phone Number [facility] See order comments or contact performing lab Unknown, [place] * TRACE ELEMENTS (05/30/2025) Only the most recent of2 resultswithin the time period is included. Pathologist [facility] Aluminum <5 0 - 10 mcg/L [facility] Comment: This test was developed and its performance characteristics determined by [facility]. It has not been cleared or approved by the FDA. The laboratory is regulated under CLIA as qualified to perform high complexity testing. This test is used for clinical purposes. It should not be regarded as investigational or for research. 05/30/2025 05/31/2025 9:1 1 AM EDT Narrative [facility] - 05/31/2025 Unless otherwise specified, test(s) performed at: [facility], [address] [place] [address] SMELTER CHARGER: Michael Fields M.D. For any questions, please call customer service at FREQUENCY:MONTHLY Resulting Agency Comment Specimen source: Serum Alan Mccarthy MD LAB BLOOD ORDERABLES Final Re sult [facility] See order comments or contact performing lab Unknown, [place] * (ABNORMAL) HEMATOLOGY (05/30/2025) Only the most recent of2 resultswithin the time period is included. Pathologist [facility] WBC 8.87 4.80 - 10.80 1000/mcL [facility] RBC 2.86(L) 4.20 - 5.40 mill/mcL [facility] Hematocrit 28.0(L) 37.0 - 47.0 % [facility] MCV 98 80 - 100 fl [facility] MCH 34.3(H) 27.0 - 31.0 pg [facility] MCHC 35.0 30.0 - 36.0 g/dL [facility] RDW 13.4 11.5 - 14.5 % [facility] Hemoglobin 9.8(L) 12.0 - 16.0 g/dL [facility] Hemoglobin x 3 29.4(L) 36.0 - 48.0 % [facility] 05/30/2025 05/31/2025 9:3 7 AM EDT Narrative [facility] - 05/31/2025 Unless otherwise specified, test(s) performed at: [facility], [address] [place] [address] SMELTER CHARGER: Michael Fields M.D. For any questions, please call customer service at FREQUENCY:MONTHLY Resulting Agency Comment Specimen source: Blood Alan Mccarthy MD LAB BLOOD ORDERABLES Final Re sult [facility] See order comments or contact performing lab Unknown, [place] * (ABNORMAL) Hemoglobin A1c (02/04/2022 11:45 AM EDT) Hemoglobin A1C 10.2(H) (4.0-5.6) % [facility] Comment: MONITORING: In known diabetic patients, hemoglobin A1c targets should be discussed with health care provider. DIAGNOSTIC USE: The [place] Diabetes Association (ADA) and the World Health [...] Supplement 1 Testing performed or reported by [facility], a Service of [facility], [address] [place] [address] Jaquelin Grayson MD, Neurosurgical Nurse [facility]# [id number] 02/04/2022 11:4 5 AM EDT 02/04/2022 6:50 PM EDT Tony Dejesus MD LAB BLOOD ORDERABLES Final Re sult [facility] from Last 3 Months or Most Recently Relevant to Health Maintenance Insurance [place] Medicare Member Subscriber Plan / Payer (Ef fective 2020-Present) Name:Isabel Carcamo Relation to Subscriber:Self Name:Isabel Carcamo Payer ID:[id number] (NAIC) Type:Not on file Address: [place] [id number] Medicaid [place] [facility] Medicare [facility] Medicare Medicaid [place] Care Teams Computer Peripheral Equipment Operator Relationship Specialty Start Date End Date Terry Ochoa MD [address] [place], [place] PCP - General Internal Medicine 07/21/23
[2025-06-10 13:57] LABS: INTERNATIONAL NORM RATIO 0.9 (0.9-1.1); Prothrombin Time 10.7 SEC (10.9-12.4)
--- OUTSIDE RECORDS SUMMARY | 2025-06-10 13:57 | XMS_ITS ---
Author Organization [facility] Care Team Providers Care Ground Instructor Advanced Name Role Phone Compa Vinson Unavailable Unavailable Planeta, Candy Unavailable Unavailable Allergies and adverse reactions Code CodeSystem Substance Reaction Severity StartDate Concern Status 6809 RXNORM metFORMIN Unknown 02/13/2022 active Invokana Unknown 02/13/2022 active Care Team Name Role Address Phone Organization Dates Compa Vinson PCP [address] [place] [address], [address], [facility] (Office): [phone] (Fax): [phone] [facility] [place] 02/13/2022 - 06/09/2022 Candy Planeta [facility] Bear Chloe milan at [place] 02/13/2022 - 06/09/2022 Immunizations Immunization Status Vaccine Details Vaccine Code CodeSystem Date Notes SARS-COV-2 (COVID-19) completed SARS-COV-2 (COVID-19) vaccine, mRNA, spike protein, LNP, bivalent, preservative free, 30 mcg/0.3 mL dose, rachel-sucrose formulation lotNumber: [id number] expiry: 02/26/2023 Mfg: pfizer Given 0.3 ml [...] 06/04/2022 CAM 0 No delirium ind icated Insurance Providers Problems Problem # Description Date of onset Resolved Date Code CodeSystem Concern Status 1 HYPERKALEMIA 05/22/[address] activ e 2 URINARY TRACT INFECTION, SITE NOT SPECIFIED 02/27/[address] active 3 CHRONIC KIDNEY DISEASE, STAGE 3 UNSPECIFIED 02/20/[address] active 4 DYSPNEA, UNSPECIFIED 02/20/[address] active 5 EDEMA, UNSPECIFIED 02/20/2022 555326073 SNOMED C T active 6 HYPOTHYROIDISM, UNSPECIFIED 02/20/[address] active 7 LYMPHEDEMA, NOT ELSEWHERE CLASSIFIED 02/20/[address] active 8 OBSTRUCTIVE SLEEP APNEA (ADULT) (PEDIATRIC) 02/20/[address] active 9 OTHER CHRONIC PAIN 02/20/[address] active 10 TYPE 2 DIABETES MELLITUS WITH HYPERGLYCEMIA 02/20/[address] active 11 UNSPECIFIED DIASTOLIC (CONGESTIVE) HEART FAILURE 02/20/[address] active 12 UNSPECIFIED RENAL COLIC 02/20/[address] active 13 ABNORMAL LEVELS OF OTHER SERUM ENZYMES 02/13/[address] active 14 ANEMIA, UNSPECIFIED 02/13/[address] active 15 ANXIETY DISORDER, UNSPECIFIED 02/13/[address] active 16 CHRONIC KIDNEY DISEASE, UNSPECIFIED 02/13/[address] active 17 ESSENTIAL (PRIMARY) HYPERTENSION 02/13/[address] active 18 GASTRO-ESOPHAGEAL REFLUX DISEASE WITHOUT ESOPHAGITIS 02/13/[address] active 19 KLEBSIELLA PNEUMONIAE [K. PNEUMONIAE] THE CAUSE OF DISEASES CLASSIFIED ELSEWHERE 02/13/[address] active 20 LOW BACK PAIN, UNSPECIFIED 02/13/[address] active 21 MORBID (SEVERE) OBESITY DUE TO EXCESS CALORIES 02/13/[address] active 22 OTHER SPECIFIED DIABETES MELLITUS WITH DIABETIC NEUROPATHY, UNSPECIFIED 02/13/[address] active 23 OVERACTIVE BLADDER 02/13/2022 949053257 SNOM[address] C T active 24 RESTLESS LEGS SYNDROME 02/13/[address] active 25 SPINAL STENOSIS, LUMBAR REGION WITHOUT NEUROGENIC CLAUDICATION 02/13/[address] active 26 TYPE 2 DIABETES MELLITUS WITH DIABETIC CHRONIC KIDNEY DISEASE 02/13/[address] active 27 TYPE 2 DIABETES MELLITUS WITHOUT COMPLICATIONS 02/13/[address] active 28 UNSPECIFIED ABDOMINAL PAIN 02/13/[address] active 29 UNSPECIFIED ASTHMA, UNCOMPLICATED 02/13/[address] active 30 VOMITING, UNSPECIFIED 02/13/[address] active 31 WEAKNESS 02/13/[address] active Reason for Referral No Reasons for Referral Entered Social History Social History Observation Description Start Date End Date Code Code System Current Smoking Status Tobacco smoking consumption unknown 971682963 SNOMED CT Sex Assigned At Female 1960 91112-0 LOINC Gender Identity Sexual Orientation Vital Signs Code Code System Vitals Name Values and Units Timing Information 2339-0 LOINC Blood Sugar Bmnkv=330.0 Units=mg/dL 06/09/2022 9279-1 LOINC Respiratory Rate Value=16.0 Units=/m in 06/09/2022 8462-4 [facility] Blood Pressure-Diastolic Value=77 Un its=mmHg 06/09/2022 8480-6 [facility] Blood Pressure-Systolic Dtwjz=309 Un its=mmHg 06/09/2022 8310-5 [facility] Body Temperature Value=97.7 Units= F 06/09/2022 8867-4 [facility] Heart rate Value=76.0 Units=/min 06/2022 11480-2 [facility] O2 % BldC Oximetry Value=94.0 Units= % 06/09/2022 71139-2 [facility] Pain Level Value=0.0 06/07/2022 27540-9 [facility] Weight Xmisr=694.1 Units=Lbs 09/2021 8302-2 [facility] Height Value=66.0 Units=Inches 05/06/2022
--- OUTSIDE RECORDS SUMMARY | 2025-06-10 13:57 | XMS_ITS | Clinical Summary ---
Author Organization [facility] Address [address] [place] [address] Care Team Providers Care Business Intelligence Architect Name Role Phone Terry Ochoa MD Primary Care Provider [phone] Allergies No known active allergies Medications amLODIPine [...] time each day Active epoetin silverio (PROCRIT/EPOGEN) 99527 UNIT/ML injection Inject 20,000 Units under the [...] Monovalent, 30 mcg/0.3 ml 08/13/2021 Covid-19, Vector-nr (Xpreso), 0.5 Ml 01/29/2021 Covid-19, mRNA (Pfizer Pre [...] Zoster (Zostavax) Discontinued Procedures * Due to [place] law, this organization might not be sharing [...] for evaluation. Endocervical/correia sformation zone component present. [facility] Cytology, Pap Smear Negative for intraepithelial lesion or malignancy. [facility] Cytology study comment (Cvx/Vag) This Pap test has been evaluated with computer assisted technology. [facility] Watch Dial Maker (Cvx/Vag) [address](ASCP) CT screening location: [place] [address] [facility] COMMENT SEE NOTE [facility] Comment: EXPLANATORY NOTE: The Pap is a [...] HPV MRNA E6/E7 Not Detected Not Detected [facility] Comment: Methodology: Surveyor Helper-Mediated Amplification This assay detects E6/E7 viral messenger RNA (mRNA) from 14 high-risk HPV types (16,18,31,33,35,39,45,51,52,56,58,59,66,68). The analytical performance characteristics of this assay have been determined by [facility]. The modifications have not been cleared or approved by the FDA. This assay has been validated pursuant to the CLIA regulations and is used for clinical purposes. For additional information, please refer to http://education.Talaentia.MarketRiders/faq/ZHE963v0 (This link if provided for information/ educational purposes only.) 11/17/2021 4:35 PM EDT 11/17/2021 9:57 PM EDT Narrative Resulting Agency Comment [id number] us Lois Carreno MD PATHOLOGY-INTERFACED Final Resul t [facility] [address] [place] [address] from Last 3 Months or Most Recently Relevant to Health Maintenance Insurance MEDICAID [employer] MEDICARE Care Teams Business Intelligence Architect Relationship Specialty Start Date End Date Terry Ochoa MD [facility] [address] [place] [address] PCP - General Internal Medicine 09/30/21
--- OUTSIDE RECORDS SUMMARY | 2025-06-10 13:57 | XMS_ITS | Encounter Summary ---
Author Organization [facility], Address [address] [place] [address] Phone Care Team Providers Care School Coordinator Name Role Phone Terry Ochoa MD Primary Care Provider [phone] Encounter Details Date Type Department Care Team (Late st Contact Info) Description 06/04/2025 Orders Only [facility], [address] [place] [id number] Provider, Albert Ordering Social History Tobacco Use Types Packs/Day Years [...] as of this encounter Plan of Treatment Not on file documented as of this encounter Procedures Procedure Name Priority Date/Time Associated Diagnosis Comments [facility] LAB RESULTS Routine 06/04/2025 documented in this encounter Results * [facility]ERT Lab Results (06/04/2025) eKdrt/V 1.46 [facility] eKt/V Gotch 1.46 [facility] nPCR_HD 0.97 [facility] PCR 71.63 [facility] spKt/V (Daugirdas II) 1.50 [facility] eKt/V ([place]) 1.31 [facility] eNPCR 0.93 [facility] spKt/V Gotch 1.67 [facility] WSTDKT/V 2.4 [facility] 06/04/2025 06/04/2025 us Albert Ordering Provider LAB BLOOD ORDERABLES Final Result [facility] Contact Performing lab Unknown, [place] documented in this encounter Visit Diagnoses Not on filedocumented in this encounter Care Teams School Coordinator Relationship Specialty Start Date End Date Terry Ochoa MD [address] [place], [place] PCP - General Internal Medicine 07/21/23 documented as of this encounter
--- OUTSIDE RECORDS SUMMARY | 2025-06-10 13:57 | XMS_ITS | Clinical Summary ---
Author Organization [facility] Address [address] [facility] [address] [place] [phone] Phone Care Team Providers Care Tile And Mottle Supervisor Name Role Phone Alexi Lynne MD Primary Care Provider [phone] Allergies No known active allergies Medications hydrALAZINE (APRESOLINE) 25 MG tablet Take 25 mg by mouth 3 (three) times a day. 2 Active gabapentin (NEURONTIN) 100 MG capsule Take 200 mg by mouth 2 (two) times a day. Active sodium zirconium cyclosilicate (LOKELMA) 10 gram Take 10 g by mouth as needed for other (free text field) (hyperkalemia ). Active torsemide (DEMADEX) 20 MG tablet Take [...] Units under the skin daily. 15 mL 5 Active insulin lispro (ADMELOG, HUMALOG) 100 unit/mL injection vial Inject 10 Units under the skin 3 (three) times a day with meals. 5 Active neomycin-bacitraci n zinc-polymyxin B (TRIPLE ANTIBIOTIC) ointment Apply topically 2 (two) times a day (once in the morning and once in the afternoon). 15 g 5 Active pantoprazole (PROTONIX) 40 MG tablet Take 1 tablet (40 mg total) by mouth daily. 30 tablet 5 Active Active Problems Problem Noted Date Diagnosed Date Hypoxia 04/12/2025 Assessment & Plan (04/26/2025 1:15 PM EDT): During her prolonged stay at [place] she required 2 L of oxygen. At [...] PM EDT): During her prolonged stay at [place] she required 2 L of oxygen. At presentation clinically fluid overloaded with evidence of acute on chronic hypoxia requiring 4L via NC to maintain O2 sat 90s. Oxygen requirement mostly due to volume overload. She may have component of obesity hypoventilation, she has been diagnosed with JULIUS although not on CPAP. 04/18 weaned to room air during hemodialysis session. Since then patient has required intermittent use of oxygen at 1 L. With continued diuresis patient is needing oxygen less frequently. Check room air sats today Assessment & Plan (04/24/2025 7:10 PM EDT): During her prolonged stay at [place] she required 2 L of oxygen. At [...] PM EDT): During her prolonged stay at [place] she required 2 L of oxygen. At [...] PM EDT): During her prolonged stay at [place] she required 2 L of oxygen. At [...] PM EDT): During her prolonged stay at [place] she required 2 L of oxygen. At presentation clinically fluid overloaded with evidence of acute on chronic hypoxia requiring 4L via NC to maintain O2 sat 90s. Oxygen requirement mostly due to volume overload. She may have component of obesity hypoventilation, she has been diagnosed with JULIUS although not on CPAP. 04/18 weaned to room air during hemodialysis session. [...] PM EDT): During her prolonged stay at [place] she required 2 L of oxygen. At presentation clinically fluid overloaded with evidence of acute on chronic hypoxia requiring 4L via NC to maintain O2 sat 90s. Oxygen requirement mostly due to volume overload. She may have component of obesity hypoventilation, she has been diagnosed with JULIUS although not on CPAP. 04/18 weaned to room air during hemodialysis session. [...] AM EDT): During her prolonged stay at [place] she required 2 L of oxygen. At [...] PM EDT): During her prolonged stay at [place] she required 2 L of oxygen. Since [...] PM EDT): During her prolonged stay at [place] she required 2 L of oxygen. Since [...] AM EDT): During her prolonged stay at [place] she required 2 L of oxygen. Since [...] AM EDT): During her prolonged stay at [place] she required 2 L of oxygen. Since [...] PM EDT): During her prolonged stay at [place] she required 2 L of oxygen. Since [...] PM EDT): During her prolonged stay at [place] she required 2 L of oxygen. Since [...] PM EDT): During her prolonged stay at [place] she has required 2 L of oxygen. [...] of treatment with ciprofloxacin in mid February. Clinically was asymptomatic with no concerns for acute infection therefore Cipro discontinued because of risk versus benefit concerns UA with trace leukocyte Estrace. Urine culture only growing yeast 8/14 On 8 complaints of dysuria, thought to be secondary [...] Urine culture only growing yeast 8/14 On 8 complaints of dysuria, thought to be secondary [...] Urine culture only growing yeast 8/14 On 824 complaints of dysuria, thought to be secondary [...] during this hospitalization. -- Requested records from [facility] and Dr Yuen of [place]; re-requested records on 04/19 Assessment & Plan (04/21/2025 4:16 PM EDT): Apparently was started on a 30-day course of treatment with ciprofloxacin in mid February. No findings to suggest active infection at this time. No antibiotics prescribed during this hospitalization. -- Requested records from [facility] and Dr [place] of [place]; re-requested records on 04/19 Assessment & Plan (04/20/2025 6:23 PM EDT): Apparently was started on a 30-day course of treatment with ciprofloxacin in mid February. No findings to suggest active infection at this time. No antibiotics prescribed during this hospitalization. -- Requested records from [facility] and Dr [place] of [place]; re-requested records on 04/19 Assessment & Plan (04/19/2025 11:51 AM EDT): Apparently was started on a 30-day course of treatment with ciprofloxacin in mid February. No findings to suggest active infection at this time. No antibiotics prescribed during this hospitalization. -- Requested records from [facility] and Dr Yuen of [place]; re-requested records on 04/19 Assessment & Plan (04/18/2025 5:59 PM EDT): Apparently was started on a 30-day course of treatment with ciprofloxacin in february. No findings to suggest active infection at this time. No antibiotics prescribed during this hospitalization. -- Requested records from [facility] -- Continue to hold on further antibiotics. Assessment & Plan (04/17/2025 2:27 PM EDT): Apparently was started on a 30-day course of treatment with ciprofloxacin in mid February. No findings to suggest active infection at this time. No antibiotics prescribed during this hospitalization. -- Requested records from [facility] -- Continue to hold on further antibiotics. Assessment & Plan (04/16/2025 8:33 AM EDT): Apparently was started on a 30-day course of treatment with ciprofloxacin in mid February. No findings to suggest active infection at this time. No antibiotics prescribed during this hospitalization. -- Requested records from [facility] -- Continue to hold on further antibiotics. Assessment & Plan (04/15/2025 11:22 AM EDT): Apparently was started on a 30-day course of treatment with ciprofloxacin in mid February. No findings to suggest active infection at this time. No antibiotics prescribed during this hospitalization. -- Requested records from [facility] -- Continue to hold on further antibiotics. Assessment & Plan (04/14/2025 6:39 PM EDT): Apparently was started on a 30-day course of treatment with ciprofloxacin in mid February. No findings to suggest active infection at this time. No antibiotics prescribed during this hospitalization. -- Requested records from [facility] -- Continue to hold on further antibiotics. Assessment & Plan (04/13/2025 4:02 PM EDT): Apparently was started on a 30-day course of treatment with ciprofloxacin in mid February. No findings to suggest active infection at this time. No antibiotics prescribed during this hospitalization. -- Requested records from Dr. Paul Lebron in [place] -- Continue to hold on further antibiotics. Assessment & Plan (04/12/2025 3:56 PM EDT): Apparently was started on a 30-day course of treatment with ciprofloxacin in mid February. No findings to suggest active infection at this time. No antibiotics prescribed during this hospitalization. -- Requested records from Dr. Paul Lebron in [place] -- Continue to hold on further antibiotics. Assessment & Plan (04/11/2025 3:37 PM EDT): Apparently was started on a 30-day course of treatment with ciprofloxacin in mid February. No findings to suggest active infection at this time. No antibiotics prescribed during this hospitalization. -- Requested records from Dr. Paul Lebron in [place] -- Continue to hold on further antibiotics. Assessment & Plan (04/10/2025 4:52 PM EDT): Apparently was started on a 30-day course of treatment with ciprofloxacin in mid February. No findings to suggest active infection at this time. -- Requested records from Dr. Paul Lebron in [place] -- Hold on additional antibiotics for now Assessment & Plan (04/09/2025 1:32 PM EDT): Apparently was started on a 30-day course of treatment with ciprofloxacin in mid February. No findings to suggest active infection at this time. -- Requestin records from Dr. Paul Lebron in [place] -- Hold on additional antibiotics for now Assessment & Plan (04/07/2025 4:33 PM EDT): Apparently was started on a 30-day course of treatment with ciprofloxacin in mid February. No findings to suggest active infection at this time. -- Will try to obtain records from Dr. Paul Lebron in [place] on Wednesday -- Hold on additional antibiotics for now ESRD (end stage renal disease) 04/05/2025 Assessment & Plan (04/27/2025 9:15 AM EDT): - Patient has been cleared at [facility] unit to start Wednesday at 6:30 AM she can be discharged as long as she has transportation available. Details of outpatient board attendant requirements being addressed. -For now we will continue with inpatient HD Wednesday regimen. Tolerating dialysis treatment well, potentially will be DC planning for outpt HD at [facility] [place] next Wednesday. - Continue fluid restriction 1.2 L daily max. Fortunately reaching dry weight. - hepatitis B non-reactive. Will aim for repeat vaccination with Heplisav as outpatient - hgb stable - AVG working well Assessment & Plan (04/26/2025 8:12 AM EDT): - Patient has been cleared at [facility] unit to start Wednesday at 6:30 AM she can be discharged as long as she has transportation available. Details of outpatient board attendant requirements being addressed. -For now we will continue with inpatient HD Wednesday regimen. Tolerating dialysis treatment well.Next due tomorrow, potentially will be DC planning for outpt HD at [facility] next Wednesday. - Continue fluid restriction 1.2 L daily max. Fortunately reaching dry weight. - hepatitis B non-reactive. Will aim for repeat vaccination with Heplisav as outpatient - hgb stable - AVG working well Assessment & Plan (04/25/2025 9:51 AM EDT): - Patient has been cleared at [facility] unit to start Wednesday at 6:30 AM [...] - AVG working well -Details of outpatient board attendant requirements being addressed. Assessment & Plan (04/24/2025 9:54 AM EDT): - Patient has been cleared at [facility] to start tomorrow at 6:30 AM she [...] EDT): -Unfortunately despite extensive search locally at [facility] and [facility] no local dialysis center with bariatric bed to accommodate her dialysis. Our team have exhausted all search in the local dialysis centers. Highly suggest to start statewide search and [id number] for other facilities if she needs rehab [...] her dialysis tenure. -If discharged back to [place] outpatient dialysis unit will need transportation. Assessment [...] center across the state. -If discharged to [place] outpatient dialysis unit will need transportation. Assessment [...] for out of area dialysis rehab centers [facility] -Consider PT OT while inpatient assess risk of fall and ability to move to a chair. -Other options check with previous outpatient unit in [place] if still available chair and able to [...] for out of area dialysis rehab centers [facility] -Consider PT OT while inpatient assess risk of fall and ability to move to a chair. -Other options check with previous outpatient unit in [place] if still available chair and able to [...] on dialysis unit placement awaiting clearance through [facility] or [facility] but she has been declined by both so far due to concerns about her ability to transfer and sit in dialysis. There are no beds available throughout the area for dialysis clinics. -Our team continues to search for local unit, I would kindly ask case management to start looking for out of area dialysis rehab centers [facility] -Consider PT OT while inpatient [...] potassium binding resin. - Will inquire with [facility] hopefully able to be discharged to outpatient [...] access hemodialysis. She had been discharged from [facility] her dialysis center was in [place] but she lives in [place] and she did not have transportation. She was volume overloaded on presentation, requiring HD. Nephrology was consulted. Patient is requiring a bariatric BED for hemodialysis. 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 Patient has a bariatric dialysis bed at [place] dialysis unit. Patient remained in hospital for dialysis on 04/25. - java developer unavailable until Friday 04/27, will remain here [...] access hemodialysis. She had been discharged from [facility] her dialysis center was in [place] but she lives in [place] and she did not have transportation. She was volume overloaded on presentation, requiring HD. Nephrology was consulted. Patient is requiring a bariatric BED for hemodialysis. 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 Patient has a bariatric dialysis bed at [place] dialysis unit. Patient remained in hospital for dialysis on 04/25. - java developer unavailable until Friday 04/27, will remain here [...] access hemodialysis. She had been discharged from [facility] her dialysis center was in [place] but she lives in [place] and she did not have transportation. She [...] 04/19. Attempts were made for dialysis in [place] however patient was declined on 04/22 Last HD was 04/23 with removal of 5 L. Stable hemodynamically. Spoke with Dr. Esteban and patient has a bariatric dialysis bed and [facility]. Initial plans were for discharge today with outpatient dialysis on 04/25 however dialysis time was at 6:30 in the morning and patient did not have SO[employer] W[employer]CHANIC coverage to be discharged home tonight. Patient remained in hospital for dialysis on 04/25. - Goal is for discharge home on 04/25 once java developer can be established to be in the [...] access hemodialysis. She had been discharged from [facility] her dialysis center was in [place] but she lives in [place] and she did not have transportation. She [...] 04/19. Attempts were made for dialysis in [place] however patient was declined on 04/22 04/23 Status post HD today with removal of 5 L. Stable hemodynamically. -discussed with patient in multidisciplinary rounds. Field Contact Technician Dr. Esteban has secured a bariatric chair for patient in [place]. - Anticipate chair will be ready in 24 to 48 hours. -Continue torsemide - HD Wednesday. - Continue 1 L fluid restriction Assessment & Plan (04/22/2025 4:03 PM EDT): Patient history of end-stage renal disease on dialysis Wednesday and Wednesday presented for fluid overload due to inability to access hemodialysis. She had been discharged from [facility] her dialysis center was in [place] but she lives in [place] and she did not have transportation. She [...] has been escalated to management on 04/19. 04/22-discussed with patient in multidisciplinary rounds. Still no bariatric HD chair available. Declined by [facility]. -Continue torsemide - HD Wednesday. - Continue 1 L fluid restriction -Case management/social work and nail setter continue to search for bariatric chair for outpatient dialysis. Assessment & Plan (04/21/2025 4:16 PM EDT): Patient history of end-stage renal disease on dialysis Wednesday and Wednesday presented for fluid overload due to inability to access hemodialysis. She had been discharged from [facility] her dialysis center was in [place] but she lives in [place] and she did not have transportation. She [...] has been escalated to management on 04/19. 04/21-discussed with patient in multidisciplinary rounds. Still no bariatric HD chair available. Declined by [facility]. -Continue torsemide - HD Wednesday. - Continue 1 L fluid restriction -Case management/social work and nail setter continue to search for bariatric chair for outpatient dialysis. Assessment & Plan (04/20/2025 6:23 PM EDT): Patient history of end-stage renal disease on dialysis Wednesday and Wednesday presented for fluid overload due to inability to access hemodialysis. She had been discharged from [facility] her dialysis center was in [place] but she lives in [place] and she did not have transportation. She [...] access hemodialysis. She had been discharged from [facility] her dialysis center was in [place] but she lives in [place] and she did not have transportation. She [...] the ED. She had been discharged from [facility] her dialysis center was in [place] but she lives in [place] and she did not have transportation. Patient [...] the ED. She had been discharged from [facility] her dialysis center was in [place] but she lives in [place] and she did not have transportation. Patient [...] the ED. She had been discharged from [facility] her dialysis center was in [place] but she lives in [place] and she did not have transportation. Patient [...] the ED. She had been discharged from [facility] her dialysis center was in [place] but she lives in [place] and she did not have transportation. Patient [...] the ED. She had been discharged from [facility] her dialysis center was in [place] but she lives in [place] and she did not have transportation. Patient [...] the ED. She had been discharged from [facility] her dialysis center was in [place] but she lives in [place] and she did not have transportation. -Received [...] from SNF her dialysis center was in [place] but she lives in [place] and she did not have transportation. -Received [...] the ED. She had been discharged from [facility] her dialysis center was in [place] but she lives in [place] and she did not have transportation. --Spoke with nephrology regarding plans for outpatient hemodialysis. It sounds like patient was requiring a bariatric chair for treatments a large chair , will need ambulance transportation. -- Received dialysis 04/09 with removal of 4.8 L and last Wednesday, - anticipate M-W-F schedule for time being 04/11-patient remained stable [...] the ED. She had been discharged from [facility] her dialysis center was in [place] but she lives in [place] and she did not have transportation. --Spoke with nephrology regarding plans for outpatient hemodialysis. It sounds like patient was requiring a bariatric chair for treatments a large chair , will need ambulance transportation. -- Received dialysis 04/09 with removal of 4.8 L and last Wednesday, - anticipate -W- schedule for time being -Will follow with [...] the ED. She had been discharged from [facility] her dialysis center was in [place] but she lives in [place] and she did not have transportation. --Spoke with nephrology regarding plans for outpatient hemodialysis. It sounds like patient was requiring a bariatric chair for treatments a large chair , will need ambulance transportation. -- Received dialysis today and last Wednesday, anticipate - schedule for time being --1 L fluid [...] the ED. She had been discharged from [facility] her dialysis center was in [place] but she lives in [place] and she did not have transportation Case [...] ED. Evidently when she was discharged from [facility] her dialysis center was in [place] but she lives in [place] and she did not have transportation Case [...] 04/06 Evidently when she was discharged from [facility] her dialysis center was in [place] but she lives in [place] and she did not have transportation Nephrology [...] 15 units daily Hemoglobin A1c 7.0 - 8 plan to increase insulin however her blood [...] and a low-dose insulin sliding scale with [id number] testing. - Obtain hemoglobin A1c in the [...] Patient states that since her admission to [facility] over the last 10 months she has [...] Patient states that since her admission to [facility] over the last 10 months she has [...] Patient states that since her admission to [facility] over the last 10 months she has [...] Estrace. Urine culture only growing yeast 04/12 04/22 complaints of dysuria. -Will repeat UA [...] Estrace. Urine culture only growing yeast 04/12 04/20-no urinary symptoms. Stable No indication for [...] leukocyte Estrace. Urine culture only growing yeast 14 No indication for antibiotics at present. Could [...] Estrace. Urine culture only growing yeast /14 No indication for antibiotics at present. Could [...] 8/14 No indication for antibiotics at present. Assessment [...] obtain records from Dr. Paul Lebron in [place]. Assessment & Plan (04/09/2025 1:32 PM EDT): Patient states history of recurrent UTI currently on ciprofloxacin for 30 days. Patient asymptomatic. No concerns for infection presently - At presentation ciprofloxacin held because of risk versus benefit concerns agree that there may be greater risk than benefit of continuing ciprofloxacin at this point --Will try to obtain records from Dr. Paul Lebron in [place] on Wednesday Assessment & Plan (04/08/2025 3:43 [...] obtain records from Dr. Paul Lebron in [place] on Wednesday Assessment & Plan (04/07/2025 2:46 [...] Encounters Date Type Department Care Team Description 06/05/2025 9:57 PM EDT - 06/06/2025 9:15 AM EDT Emergency [facility] [address] [place] [address] Gumaro Hernandez DO Daul, Adrian D, MD Discharge Disposition: Home or Self Care 04/17/2025 Episode Documentatio n Update [facility] [address], [place] [phone] Salma Reyes 04/08/2025 Orders Only [facility] [address], [place] [phone] Homehealth, Interface MD Eloisa 04/05/2025 3:05 PM EDT - 04/27/2025 3:17 PM EDT Hospital Encounter [facility] [address] [place] [address] Joseph Green MD Kielbasa, Shasta A, MD Green, Tracy L, MD Albury, Lois C, MD Barbosa-Angles, Brianna R, DO, Jennifer Bach MD Discharge Disposition: Home-Health Care Svc from [...] your housing situation today? I have chino sing 06/05/2025 How many times have you move [...] PM EDT Sexual Orientation Not on file Last Filed [...] Mass Index 53.02 06/05/2025 10:11 PM EDT Plan of Treatment Health Maintenance Due Date Last Done Comments Adult Td,Tdap Booster 1958 BLOOD PRESSURE 1958 DEPRESSION SCREENING 1970 SMOKING Hx and SMOKELESS TOBACCO SCREENING 1971 HEPATITIS C SCREENING 1976 LIPID PANEL 1976 PNEUMOCOCCAL VACCINES (50+ years) (1 of 2 - PCV) 1977 MAMMOGRAM 1998 COLOGUARD 2003 COLONOSCOPY 2003 FIT TEST 2003 SIGMOIDOSCOPY 2003 VIRTUAL COLONOSCOPY 2003 RSV VACCINE (1 - Risk 50-74 years 1-dose series) 2008 ZOSTER VACCINES (1 of 2) 2008 OSTEOPOROSIS SCREENING INITI AL (ONE-TIME) 2023 COLORECTAL CANCER SCREENING 10/07/2023 FOBT 10/07/2023 10/07/2022 INFLUENZA VACCINE (#1) 2025 07/21/2022 DIABETIC EYE EXAM 04/05/2025 COVID-19 VACCINE (1 - 2024-2 6 season) 2025 HEMOGLOBIN A1C 10/07/2025 04/06/2025, 10/07/2022, [...] (HEPATIC PANEL) STAT 06/05/2025 10:30 PM EDT BASIC METABOLIC PANEL STAT 06/05/2025 10:30 PM EDT CBC AND DIFFERENTIAL STAT 06/05/2025 10:30 PM EDT ECG 12-LEAD STAT 06/05/2025 10:03 PM EDT POCT GLUCOSE Routine 04/27/2025 1:51 PM EDT [...] EDT from Last 3 Months Results * XR Chest Portable (06/05/2025 10:37 PM EDT) Anatomical Region Laterality Modality Chest Computed Radiogr aphy 06/06/2025 12:2 0 AM EDT Impressions 06/06/2025 12:21 AM EDT No acute abnormality. Narrative 06/06/2025 12:21 AM EDT XR CHEST PORTABLE Referring clinician's provided indication for this examination in [facility]: Dyspnea (Shortness of Breath) COMPARISON: XR CHEST PORTABLE FINDINGS: Devices/Tubes/Lines: None. Lungs: No focal consolidation or pulmonary edema. Pleura: No pleural effusion or pneumothorax. Heart/Mediastinum: Stable cardiac silhouette enlargement. Bones/Soft Tissues: Degenerative changes of the shoulders and spine. No acute osseous abnormality. Procedure Note Krystal Encinas MD, PhD - 06/06/2025 XR CHEST PORTABLE Referring clinician's provided indication for this examination in [facility]:Dyspnea (Shortness of Breath) COMPARISON: XR CHEST PORTABLE FINDINGS: Devices/Tubes/Lines: None. Lungs: No focal consolidation or pulmonary edema. Pleura: No pleural effusion or pneumothorax. Heart/Mediastinum: Stable cardiac silhouette enlargement. Bones/Soft Tissues: Degenerative changes of the shoulders and spine. Noacute osseous abnormality. IMPRESSION: No acute abnormality. Gumaro Hernandez DO IMG XR CHEST Final Result * (ABNORMAL) LFTs (hepatic panel) (06/05/2025 10:30 PM EDT) Only the most recent of2 resultswithin the time period is included. ALKALINE PHOSPHATASE 125(H) 39 - 117 U/L [facility] TOTAL BILIRUBIN 0.4 0.0 - 1.2 mg/dL [facility] DIRECT BILIRUBIN 0.2 0.0 - 0.2 mg/dL [facility] Bilirubin (Indirect) 0.2 0 - 1.5 mg/dL [facility] AST 14 0 - 37 U/L [facility] ALT 10 0 - 40 U/L [facility] TOTAL PROTEIN 6.4(L) 6.5 - 8.0 g/dL [facility] ALBUMIN 3.6(L) 3.9 - 4.8 g/dL [facility] GLOBULIN 2.8 1 - 4.8 g/dL [facility] A/G Ratio 1.29 1.00 - 4.80 RATIO [facility] Blood 06/05/2025 10:3 0 PM EDT 06/05/2025 10:35 PM EDT Gumaro Hernandez DO LAB BLOOD ORDERABLES Final Re sult [address] [address] * (ABNORMAL) CBC and differential (06/05/2025 10:30 PM EDT) Only the most recent of6 resultswithin the time period is included. WBC 9.35 4.00 - 11.00 K/uL [facility] RBC 2.64(L) 4.00 - 5.20 M/uL [facility] HGB 8.6(L) 12.0 - 16.0 g/dL [facility] HCT 25.9(L) 36.0 - 46.0 % [facility] PLT 190 150 - 450 K/uL [facility] MCV 98.1 80.0 - 100.0 fL [facility] MCH 32.6(H) 27.0 - 31.0 pg [facility] MCHC 33.2 32.0 - 36.0 g/dL [facility] RDW 13.2 11.5 - 14.5 % [facility] MPV 9.8 8.4 - 12.0 fL [facility] NRBC 0.00 0.00 /100 WBCs [facility] ABSOLUTE NRBC 0.00 0.00 K/uL [facility] DIFF METHOD Auto [facility] NEUTS 72.8 48.0 - 76.0 % [facility] LYMPHS 14.8(L) 18.0 - 41.0 % [facility] MONOS 8.7 4.0 - 11.0 % [facility] EOS 2.7 0.0 - 5.0 % [facility] BASOS 0.6 0.0 - 1.5 % [facility] Granulocytes, immature (%) 0.4 0.0 - 0.9 % [facility] ABSOLUTE NEUTS 6.81 1.92 - 7.60 K/uL [facility] ABSOLUTE LYMPHS 1.38 0.72 - 4.10 K/uL [facility] ABSOLUTE MONOS 0.81 0.16 - 1.10 K/uL [facility] ABSOLUTE EOS 0.25 0.00 - 0.50 K/uL [facility] ABSOLUTE BASOS 0.06 0.00 - 0.15 K/uL [facility] Granulocytes, immature 0.04 0.00 - 0.09 K/uL [facility] Blood 06/05/2025 10:3 0 PM EDT 06/05/2025 10:35 PM EDT us Gumaro Hernandez DO LAB BLOOD ORDERABLES Final Re sult [facility] [address] [place] [address] * (ABNORMAL) Basic metabolic panel (06/05/2025 10:30 PM EDT) Only the most recent of8 resultswithin the time period is included. [facility] SODIUM 135 133 - 146 mmol/L [facility] CHLORIDE 96 96 - 108 mmol/L [facility] POTASSIUM 4.0 3.3 - 5.1 mmol/L [facility] CO2 26 21 - 35 mmol/L [facility] BUN 42(H) 6 - 19 mg/dL [facility] CREATININE 3.30(H) 0.5 - 1.5 mg/dL [facility] GLUCOSE 321(H) 70 - 99 mg/dL [facility] CALCIUM 8.1(L) 8.4 - 10.3 mg/dL [facility] EGFR 15(L) >59 mL/min/1.7 3m2 [facility] Comment:Estimated glomerular filtration rate calculated using the CKD-EPI refit equation. ANION GAP 17 10 - 20 mmol/L [facility] Blood 06/05/2025 10:3 0 PM EDT 06/05/2025 10:35 PM EDT us Gumaro Hernandez DO LAB BLOOD ORDERABLES Final Re sult [address] [address] * ECG 12-LEAD (06/05/2025 10:03 PM EDT) Only the most recent of2 resultswithin the time period is included. [facility] Ventricular Rate EKG/MIN 67 BPM [facility] Atrial Rate 67 BPM [facility] MS Interval 144 ms [facility] QRS Duration 96 ms [facility] QT Interval 466 ms [facility] QTC Interval 492 ms [facility] R [place] -40 degrees [facility] T [place] 50 degrees [facility] 06/05/2025 10:0 3 PM EDT 06/06/2025 8:56 AM EDT Narrative [facility] - 06/06/2025 8:56 AM EDT Normal sinus rhythm Left axis deviation Prolonged QT Abnormal ECG When compared with ECG of 05-Apr-2025 16:16, No significant change was found Confirmed by Zackary August ([id number]) on 06/06/2025 8:56:48 AM us Gumaro Hernandez DO ECG ORDERABLES Final Result Performing Organization Address [facility] de Phone Number [facility] * (ABNORMAL) POCT Glucose (04/27/2025 1:51 PM EDT) Only the most recent of89 resultswithin the time period is included. Pathologist [facility] Glucose, POCT 159(H) 70 - 100 mg/dL [facility] 04/27/2025 1:51 PM EDT 04/27/2025 1:57 PM EDT us Jennifer Chapin MD POINT OF CARE TEST ORDERABLE S Final Result Performing Organization Address [facility] de Phone Number [address] [address] * Hepatitis B surface antigen (04/24/2025 11:00 AM EDT) Only the most recent of2 resultswithin the time period is included. [facility] HBV SURFACE ANTIGEN NON-REACTI VE NON-REACTI VE [facility] Blood 04/24/2025 11:0 0 AM EDT 04/25/2025 8:15 AM EDT us Chemo Esteban MD LAB BLOOD ORDERABLES Final Resul t Performing Organization Address [facility] de Phone Number [address] [address] * (ABNORMAL) CBC (04/23/2025 8:49 AM EDT) Only the most recent of4 resultswithin the time period is included. Pathologist [facility] WBC 8.51 4.00 - 11.00 K/uL [facility] RBC 3.41(L) 4.00 - 5.20 M/uL [facility] HGB 11.1(L) 12.0 - 16.0 g/dL [facility] HCT 33.8(L) 36.0 - 46.0 % [facility] PLT 181 150 - 450 K/uL [facility] MCV 99.1 80.0 - 100.0 fL [facility] MCH 32.6(H) 27.0 - 31.0 pg [facility] MCHC 32.8 32.0 - 36.0 g/dL [facility] RDW 13.6 11.5 - 14.5 % [facility] MPV 10.3 8.4 - 12.0 fL [facility] NRBC 0.00 0.00 /100 WBCs [facility] ABSOLUTE NRBC 0.00 0.00 K/uL [facility] Blood 04/23/2025 8:49 AM EDT 04/23/2025 9:22 AM EDT us aMris Navarro MD LAB BLOOD ORDERABLES Final Resu lt Performing Organization Address City/State/[facility] Co de Phone Number [address] [address] * (ABNORMAL) Comprehensive metabolic panel (04/15/2025 6:01 AM EDT) Only the most recent of2 resultswithin the time period is included. SODIUM 139 133 - 146 mmol/L [facility] POTASSIUM 4.7 3.3 - 5.1 mmol/L [facility] CHLORIDE 101 96 - 108 mmol/L [facility] CO2 27 21 - 35 mmol/L [facility] BUN 50(H) 6 - 19 mg/dL [facility] CREATININE 3.50(H) 0.5 - 1.5 mg/dL [facility] GLUCOSE 130(H) 70 - 99 mg/dL [facility] ALBUMIN 3.6(L) 3.9 - 4.8 g/dL [facility] TOTAL PROTEIN 6.5 6.5 - 8.0 g/dL [facility] CALCIUM 9.1 8.4 - 10.3 mg/dL [facility] ALKALINE PHOSPHATASE 136(H) 39 - 117 U/L [facility] TOTAL BILIRUBIN 0.5 0.0 - 1.2 mg/dL [facility] AST 14 0 - 37 U/L [facility] ALT 9 0 - 40 U/L [facility] GLOBULIN 2.9 1 - 4.8 g/dL [facility] EGFR 14(L) >59 mL/min/1.7 3m2 [facility] Comment:Estimated glomerular filtration rate calculated using the CKD-EPI refit equation. ANION GAP 16 10 - 20 mmol/L [facility] Blood 04/15/2025 6:01 AM EDT 04/15/2025 6:41 AM EDT us Jessica Ribera DO MPH LAB BLOOD ORDER [place] Final Result Performing Organization Address City/[facility] Co de Phone Number [address] [address] * Phosphorus (04/15/2025 6:01 AM EDT) Only the most recent of2 resultswithin the time period is included. PHOSPHORUS 3.9 2.7 - 4.5 mg/dL [facility] Blood 04/15/2025 6:01 AM EDT 04/15/2025 6:41 AM EDT us Jessica Ribera DO MPH LAB BLOOD ORDER [place] Final Result Performing Organization Address [facility] Co de Phone Number [address] [address] * Magnesium (04/15/2025 6:01 AM EDT) Only the most recent of3 resultswithin the time period is included. MAGNESIUM 2.1 1.6 - 2.6 mg/dL [facility] Blood 04/15/2025 6:01 AM EDT 04/15/2025 6:41 AM EDT us Jessica Ribera DO MPH LAB BLOOD ORDER [place] Final Result Performing Organization Address City/[facility] Co de Phone Number [address] [address] * (ABNORMAL) Urinalysis w/reflex Urine Culture (04/12/2025 2:45 PM EDT) COLOR Yellow Yellow [facility] CLARITY Clear [facility] GLUCOSE Negative Negative [facility] BILI Negative Negative [facility] KETONES Negative Negative [facility] SPECIFIC GRAVITY 1.015 1.005 - 1.030 [facility] BLOOD Negative Negative [facility] PH 6.0 5.0 - 8.0 [facility] Protein-UA 2+(A) Negative [facility] NITRITE Negative Negative [facility] Leukocyte esterase, ur Trace(A) Negative [facility] Urine (Urine) 04/12/2025 2:4 5 PM EDT 04/12/2025 2:53 PM EDT us Maris Navarro MD URINE ORDERABLES Final Result Performing Organization Address City/[facility]/ZIP Co de Phone Number [address] [address] * (ABNORMAL) Urine Culture (04/12/2025 2:45 PM EDT) Special Requests None Reflexed from [id number] 04/12/2025 3:43 PM EDT [facility] Urine Culture 10,000 to 100,000 colony forming units per mL YEAST(A) 04/14/2025 8:32 AM EDT [facility] Urine 04/12/2025 2:45 PM EDT 04/12/2025 2:53 PM EDT us Maris Navarro MD MICROBIOLOGY - GENERAL ORDERABL ES Final Result Performing Organization Address City/[facility]/ZIP Co de Phone Number [address] [address] * (ABNORMAL) Urine sediment (04/12/2025 2:45 PM EDT) WBC 11-20(A) NONE SEEN /hpf [facility] RBC 0-2(A) NONE SEEN /hpf [facility] URINE EPITHELIAL 0-4(A) NONE SEEN [facility] MUCUS NONE SEEN NONE SEEN /hpf [facility] BACTERIA Trace(A) NONE SEEN /hpf [facility] YEAST 1+(A) NONE SEEN /hpf [facility] 04/12/2025 2:45 PM EDT 04/12/2025 2:53 PM EDT us Maris Navarro MD URINE ORDERABLES Final Result [facility] [address] [place] [address] * US Lower Extremity Veins Duplex Complete [...] the visualizedveins of the left lower extremity. Joseph Green MD [facility] VASCULAR Final Result * PT-INR (04/06/2025 6:33 AM EDT) PT 12.0 10.2 - 12.9 sec [facility] INR 1.0 0.9 - 1.1 [facility] Comment:Therapeutic range fo r oral Vitamin K antagonists: 2.0-3.5 Blood 04/06/2025 6:33 AM EDT 04/06/2025 6:36 AM EDT us Joseph Green MD LAB BLOOD ORDERABLES Final Resu lt [address] [address] * (ABNORMAL) Hemoglobin A1c (04/06/2025 6:33 AM EDT) HEMOGLOBIN A1C 7.0(H) 4.3 - 5.8 % [facility] Blood 04/06/2025 6:33 AM EDT 04/06/2025 6:37 AM EDT us Joseph Green MD LAB BLOOD ORDERABLES Final Resu lt Performing Organization Address [facility] Co de Phone Number [address] [address] * XR Chest Portable (04/05/2025 4:04 PM EDT) Anatomical Region Laterality Modality Chest Computed Radiogr aphy 04/05/2025 4:58 PM EDT Impressions 04/05/2025 5:10 PM EDT Interstitial prominence likely due to fluid overload with vascular redistribution. ATTESTATION: I, Jason Rahman as teaching physician, have reviewed the images for this case and if necessary edited the report originally created by Huber Bynum. Narrative 04/05/2025 5:10 PM EDT XR CHEST PORTABLE Referring clinician's provided indication for this examination in Epic: Dyspnea (Shortness of Breath) COMPARISON: None. FINDINGS: [...] clinician's provided indication for this examination in Epic:Dyspnea (Shortness of Breath) COMPARISON: None. FINDINGS: Devices/Tubes/Lines: [...] due to fluid overload with vascularredistribution. ATTESTATION: I, Jason Rahman as teaching physician, have reviewed theimages for this case and if necessary edited the report originally createdby Huber Bynum. Donn Cohen MD IMG XR CHEST Final Resu lt * CPK (creatine kinase) (04/05/2025 3:35 PM EDT) CREATINE KINASE 131 21 - 215 U/L [facility] Blood 04/05/2025 3:35 PM EDT 04/05/2025 3:47 PM EDT Donn Cohen MD LAB BLOOD ORDERABLES Final Result [address] [address] from Last 3 Months Insurance [facility] MEDICARE REPLACEMENT [facility] MEDICARE REPLACEMENT [facility] MEDICARE PART A & B Member Subscriber Plan / Payer (Ef fective 2001-Present) Name:Isabel Carcamo Member ID:[id number] Relation to Subscriber:Self Name:Isabel Carcamo Subscriber ID:[id number] Payer ID:[id number] Group ID:Not on file Type:Medicare Address: [facility] [facility] [address] [place] [address] [facility] MEDICARE [facility]PL[facility] A & [place] [place] [address] MEDICARE REPLACEMENT [facility] & [place] [address] [place] [address] MEDICARE REPLACEMENT [facility] MEDICARE PART A & B [facility] MEDICARE REPLACEMENT [facility] MEDICARE PART A & B [facility] MEDICARE REPLACEMENT [facility] MEDICARE PART A & B Advance Directives For more information, please contact: [phone] (9AM - 5PM [facility], Wednesday-Wednesday) Documents on File Type Date Recorded Patient Welding Machine Setter Expl anation Healthcare Proxy 05/02/2025 2:05 PM Healthcare Proxy 04/18/2025 9:29 AM health care proxy * Full Code (Latest Code Status on File) Date Activated Date Inactivated Comments 04/05/2025 8:51 PM Question Answer Comments Code Status Confirmed With: Patient Code Status Communicated To: Inpatient Attending Care Teams Tile And Mottle Supervisor Relationship Specialty Start Date End Date Alexi Lynne MD [address] [place] [address] [place] [address] PCP - General Internal Medicine 04/05/25 Additional Source Comments The information contained in this document represents components of the legal health record. It is not the complete legal health record.[facility]
--- OUTSIDE RECORDS SUMMARY | 2025-06-10 13:57 | XMS_ITS | Encounter Summary ---
Author Organization [facility] Address [address] [place] [address] Care Team Providers Care Chief Estimator Name Role Phone Terry Ochoa MD Primary Care Provider [phone] Encounter Details Date Type Department Care Team ([facility] st Contact Info) Description 11/17/2021 Orders Only [facility] TOOLING SPECIALIST [address] [facility] [address] [place] [address] Lois Carreno MD [address] [place] [address] Social History Tobacco Use Types Packs/Day Years [...] of this encounter Procedures * Due to [facility] law, this organization might not be sharing negative HIV tests. Procedure Name Priority Date/Time Associated Diagnosis Comments THINPREP TIS PAP AND HPV RNA, HR E6/E7, TMA Routine 11/17/2021 4:35 PM EDT Screening for malignant neoplasm of cervix documented in this encounter Results * Due to [facility] law, this organization might not be sharing negative HIV tests. * THINPREP TIS PAP AND HPV RNA, HR E6/E7, TMA (11/17/2021 4:35 PM EDT) Clinical information Postmenopausal [facility] Date last menstrual period POSTMENOPAUSAL [facility] Date of previous PAP smear NONE GIVEN [facility] Date of previous biopsy NONE GIVEN [facility] Specimen source (Cvx/Vag) None given [facility] Statement of Adequacy (Cvx/Vag) Satisfactory for evaluation. Endocervical/correia sformation zone component present. [facility] Cytology, Pap Smear Negative for intraepithelial lesion or malignancy. [facility] Cytology study comment (Cvx/Vag) This Pap test has been evaluated with computer assisted technology. [employer] [facility] Law Office Manager (Cvx/Vag) [address](ASCP) CT screening location: [place] [address] [facility] COMMENT SEE NOTE [facility] Comment: EXPLANATORY NOTE: The Pap is a [...] HPV MRNA E6/E7 Not Detected Not Detected [facility] Comment: Methodology: Lockstitch Lining Maker-Mediated Amplification This assay detects E6/E7 viral messenger RNA (mRNA) from 14 high-risk HPV types (16,18,31,33,35,39,45,51,52,56,58,59,66,68). The analytical performance characteristics of this assay have been determined by [employer] [facility] [employer]. The modifications have not been cleared or approved by the FDA. This assay has been validated pursuant to the CLIA regulations and is used for clinical purposes. For additional information, please refer to http://education.Reppler/faq/SEW617l6 (This link if provided for information/ educational purposes only.) 11/17/2021 4:35 PM EDT 11/17/2021 9:57 PM EDT Narrative Resulting Agency Comment [id number] us Lois Carreno MD PATHOLOGY-INTERFACED Final Resul t Performing Organization Address City/State/[facility] Co de Phone Number [facility] [address] [place] [address] documented in this encounter Visit Diagnoses Diagnosis Screening for malignant neoplasm of cervix Screening for malignant neoplasm of the cervix documented in this encounter Care Teams Chief Estimator Relationship Specialty Start Date End Date Terry Ochoa MD [facility] [address] [place] [address] PCP - General Internal Medicine 09/30/21 documented as of this encounter
--- OUTSIDE RECORDS SUMMARY | 2025-06-10 13:57 | XMS_ITS | Encounter Summary ---
Author Organization [facility], Address [address] [place] [address] Phone Care Team Providers Care Paper Baling Machine Operator Name Role Phone Terry Ochoa MD Primary Care Provider [phone] Encounter Details Date Type Department Care Team (Late st Contact Info) Description 06/08/2025 Orders Only [facility] [address] [place] [address] Alan Mccarthy MD [address] [place] [address] [address] [place] [address] Social History Tobacco Use Types Packs/Day Years [...] Associated Diagnosis Comments IMMUNO CHEMISTRY Routine 06/08/2025 documented in this encounter Results * IMMUNO CHEMISTRY (06/08/2025) Hepatitis B Surface Ab <10 mIU/mL [facility] Comment: Reference Range: <10 mIU/mL Non-Immune >=10 mIU/mL Immune The magnitude of the measured result above 10 mIU/mL is not indicative of the total amount of antibody present. Custom Exception 06/08/2025 06/09/2025 11: 40 AM EDT Narrative LARRY - 06/09/2025 Unless otherwise specified, test(s) performed at: [facility], [address] [place] [id number] BALLING MACHINE OPERATOR: Michael Fields M.D. For any questions, please call customer service at FREQUENCY:OTHER Resulting Agency Comment Specimen source: Serum Alan Mccarthy MD LAB BLOOD ORDERABLES Final Re sult [facility] See order comments or contact performing lab Unknown, [place] documented in this encounter Visit Diagnoses Not on filedocumented in this encounter Care Teams Paper Baling Machine Operator Relationship Specialty Start Date End Date Terry Ochoa MD [address] [place], [place] PCP - General Internal Medicine 07/21/23 documented as of this encounter
--- OUTSIDE RECORDS SUMMARY | 2025-06-10 13:57 | XMS_ITS ---
Author Organization [facility] Care Team Providers Care Wire Coiler Machine Operator Name Role Phone Bhargavi Xavier Unavailable Unavailable Marquez Farrar MD Unavailable Unavailable Allergies and adverse reactions Code CodeSystem Substance Reaction Severity StartDate Concern Status 6809 RXNORM Metformin Moderate 07/15/2021 active Care Team Name Role Address Phone Organization Dates Marquez Farrar MD PCP [address] [place] [address], [id number], [place] (Office): [facility] 07/15/2021 - 11/26/2021 Bhargavi Xavier [facility] [address] [place] [address], [id number], [place] (Office): [facility] 07/15/2021 - 11/26/2021 Immunizations Immunization Status Vaccine Details Vaccine Code CodeSystem Date Notes Influenza normal Influenza, high-dose, split virus, quadrivalent, injectable, preservative free 197 CVX created date: 1 consent date: 1 had in May 2021 TB 2 Step Mantoux Skin Test completed tuberculin skin test; unspecified formulation lotNumber: [id number] expiry: 01/29/2023 Mfg: [employer] Given 0.1 ml Left Forearm intradermally Step 2 of Multi-step with next step required 98 CVX created date: 2 consent date: 2 administe red date: 2 TB 2 Step Mantoux Skin Test completed tuberculin skin test; unspecified formulation lotNumber: [id number] expiry: 12/19/2022 [facility]: [employer] Given 0.1 ml Right Forearm subcutaneously Step [...] LNP, preservative free, 30 mcg/0.3mL dose lotNumber: [id number] Given Right Deltoid intramuscularly 208 CVX created date: 1 consent date: 1 administe red date: 1 Educated by Magdy Lynn on 08/13/2021 Mental Status Section Date Assessment Total Score Description 11/26/2021 BIMS 14 cognitively int act CAM 0 No delirium ind icated PHQ-9 04 minimal depress ion 10/14/2021 BIMS 14 cognitively int act CAM 0 No delirium ind icated PHQ-9 09 mild depression Insurance Providers Problems Problem # Description Date of onset Resolved Date Code CodeSystem Concern Status 1 ADJUSTMENT DISORDER WITH MIXED ANXIETY AND DEPRESSED MOOD 10/17/[address] active 2 LYMPHEDEMA, NOT ELSEWHERE CLASSIFIED 07/16/[address] active 3 DYSPHAGIA, UNSPECIFIED 07/15/[address] active 4 ESSENTIAL (PRIMARY) HYPERTENSION 07/15/[address] active 5 HYPERLIPIDEMIA, UNSPECIFIED 07/15/[address] active 6 MORBID (SEVERE) OBESITY DUE TO EXCESS CALORIES 07/15/[address] active 7 MUSCLE WEAKNESS (GENERALIZED) 07/15/[address] active 8 NAUSEA 07/15/[address] active 9 OTHER SPECIFIED ABNORMAL FINDINGS OF BLOOD CHEMISTRY 07/15/[address] active 10 OTHER SPECIFIED ABNORMALITIES OF PLASMA PROTEINS 07/15/[address] active 11 TYPE 2 DIABETES MELLITUS WITH DIABETIC CHRONIC KIDNEY DISEASE 07/15/[address] active 12 TYPE 2 DIABETES MELLITUS WITH DIABETIC NEUROPATHY, UNSPECIFIED 07/15/[address] active 13 TYPE 2 DIABETES MELLITUS WITHOUT COMPLICATIONS 07/15/[address] active 14 UNSPECIFIED ABDOMINAL PAIN 07/15/[address] active 15 UNSPECIFIED ASTHMA, UNCOMPLICATED 07/15/[address] active 16 URINARY TRACT INFECTION, SITE NOT SPECIFIED 07/15/[address] active 17 WEAKNESS 07/15/[address] active Reason for Referral No Reasons for Referral Entered Social History Social History Observation Description Start Date End Date Code Code System Current Smoking Status Tobacco smoking consumption unknown 938149471 SNOMED CT Sex Assigned At Female 1960 [address]-6 [facility] Gender Identity Sexual Orientation Vital Signs Code Code System Vitals Name Values and Units Timing Information 8462-4 [facility] Blood Pressure-Diastolic Value=78 Un its=mmHg 11/26/2021 8480-6 [facility] Blood Pressure-Systolic Seetg=240 Un its=mmHg 11/26/2021 8867-4 [facility] Heart rate Value=80.0 Units=/min 2339-0 [facility] Blood Sugar Bmmrr=442.0 Units=mg/dL 11/26/2021 47646-8 [facility] Pain Level Value=0.0 11/25/2021 06354-5 [facility] Weight [place]=541.8 Units=Lbs 9279-1 [facility] Respiratory Rate Value=16.0 Units=/m in 11/25/2021 8310-5 [facility] Body Temperature Value=97.7 Units= F 11/25/2021 03118-7 [facility] O2 % BldC Oximetry Value=98.0 Units= % 11/25/2021 8302-2 [facility] Height Value=66.0 Units=Inches 07/17/2021
--- OUTSIDE RECORDS SUMMARY | 2025-06-10 13:57 | XMS_ITS ---
Author Organization [facility] Care Team Providers Care Gold Leaf Gilder Name Role Phone Clifton Barry Unavailable Unavailable Allergies and adverse reactions Code CodeSystem Substance Reaction Severity StartDate Concern Status 6809 RXNORM metFORMIN Unknown 07/15/2022 active 8215573 RXNORM Canagliflozin Moderate 07/15/2022 active Care Team Name Role Address Phone Organization Dates Clifton Jhonny PCP [address], [place], [address], [place] (Office): : [facility] 07/15/2022 - 03/13/2023 Goals Section Goals Description [...] Date Indication Senna Tablet 8.6 MG active 76256 5 RXNORM 2 table t Oral at [...] delirium ind icated PHQ-9 00 Insurance Providers Plan of Treatment Section Interventions Intervention Code Code System Display Name Proposed D ate Problems Problem # Description Date of onset Resolved Date Code CodeSystem Concern Status 1 ACUTE KIDNEY FAILURE, UNSPECIFIED 11/26/[address] active 2 PERSONAL HISTORY OF COVID-19 11/26/[address] active 3 ACUTE RESPIRATORY FAILURE WITH HYPOXIA 11/25/[address] active 4 COVID-19 11/25/2022 12/28/[address] compl eted 5 CHRONIC DIASTOLIC (CONGESTIVE) HEART FAILURE 10/18/[address] active 6 WEAKNESS 10/18/[address] active 7 CONSTIPATION, UNSPECIFIED 07/28/[address] active 8 DIFFICULTY IN WALKING, NOT ELSEWHERE CLASSIFIED 07/28/[address] active 9 OTHER CHRONIC PAIN 07/28/[address] active 10 OTHER MALAISE 07/28/[address] act eileen 11 ANEMIA, UNSPECIFIED 07/15/[address] active 12 BLADDER-NECK OBSTRUCTION 07/15/[address] active 13 CHRONIC KIDNEY DISEASE, STAGE 4 (SEVERE) 07/15/[address] active 14 DIABETES MELLITUS DUE TO UNDERLYING CONDITION WITH DIABETIC NEUROPATHY, UNSPECIFIED 07/15/[address] active 15 ESSENTIAL (PRIMARY) HYPERTENSION 07/15/[address] active 16 GASTRO-ESOPHAGEAL REFLUX DISEASE WITHOUT ESOPHAGITIS 07/15/[address] active 17 HEART FAILURE, UNSPECIFIED 07/15/[address] active 18 HYPERLIPIDEMIA, UNSPECIFIED 07/15/[address] active 19 HYPERTENSIVE HEART AND CHRONIC KIDNEY DISEASE WITH HEART FAILURE AND STAGE 1 THROUGH STAGE 4 CHRONIC KIDNEY DISEASE, OR UNSPECIFIED CHRONIC KIDNEY DISEASE 07/15/[address] active 20 IRRITANT CONTACT DERMATITIS DUE TO FECAL, URINARY OR DUAL INCONTINENCE 07/15/[address] active 21 MORBID (SEVERE) OBESITY DUE TO EXCESS CALORIES 07/15/[address] active 22 MUSCLE WEAKNESS (GENERALIZED) 07/15/[address] active 23 NAUSEA 07/15/[address] active 24 OVERACTIVE BLADDER 07/15/[address] T active 25 RESTLESS LEGS SYNDROME 07/15/[address] active 26 TYPE 2 DIABETES MELLITUS WITHOUT COMPLICATIONS 07/15/[address] active 27 URINARY TRACT INFECTION, SITE NOT SPECIFIED 07/15/2022 09/30/[address] completed Reason for Referral No Reasons for Referral Entered Social History Social History Observation Description Start Date End Date Code Code System Current Smoking Status Tobacco smoking consumption unknown 814949598 SNOMED CT Sex Assigned At Female 1960 [address]66[address]-5 [facility] Gender Identity Sexual Orientation Vital Signs Code Code System Vitals Name Values and Units Timing Information 55980-1 [facility] Pain Level Value=0.0 03/13/2023 2339-0 [facility] Blood Sugar Anmik=075.0 Units=mg/dL 03/13/2023 8310-5 [facility] Body Temperature Value=98.0 Units= F 03/08/2023 86941-4 [facility] Weight Qmoww=650.0 Units=Lbs 04/2023 9279-1 [facility] Respiratory Rate Value=18.0 Units=/m in 02/24/2023 8462-4 [facility] Blood Pressure-Diastolic Value=76 Un its=mmHg 02/24/2023 8480-6 [facility] Blood Pressure-Systolic Oqran=338 Un its=mmHg 02/24/2023 8867-4 [facility] Heart rate Value=76.0 Units=/min 23032-5 [facility] O2 % dC Oximetry Value=97.0 Units= % 02/24/2023 8302-2 [facility] Height Value=66.0 Units=Inches 07/15/2022
[2025-06-10 14:05] LABS: Alanine Aminotransferase 12 U/L (0-31); Albumin Level 3.5 g/dL (3.5-5.0); Alkaline Phosphatase 122 U/L (39-117); Anion Gap 15 (12-20); Aspartate Amino Transferase 25 U/L (5-31); Blood Urea Nitrogen 47 mg/dL (9-16); Calcium 8.2 mg/dL (8.4-10.2); Carbon Dioxide 23 mmol/L (22-29); Chloride 101 mmol/L (96-108); Creatinine Clr Calc Pharmacy 25.1; Estimated Glomerular Filt Rate 12; Lipase 33 U/L (8-78); Magnesium 1.8 mg/dL (1.6-2.6); Potassium 4.2 mmol/L (3.3-5.1); Sodium 135 mmol/L (135-145); Total Protein 6.4 g/dL (6.5-8.0)
[2025-06-10 14:12] LABS: Troponin-I High Sensitivity 19.0 ng/L (<3.5-17.0)
[2025-06-10 15:29] LABS: Appearance Urine Cloudy; Glucose Urine UA 250 mg/dL (Negative); PH 8.0 (5.0-9.0); Specific Gravity - Urine 1.010 (1.005-1.025); UMIC TRIGGER UACC YES
[2025-06-10 15:32] LABS: UACC Culture Trigger YES
[2025-06-10 16:36] VITALS: BP 184/76; PULSE 63; RESP 16; O2SAT 100
[2025-06-10 17:03] LABS: Troponin-I High Sensitivity 18.9 ng/L (<3.5-17.0)
--- NOTE | 2025-06-10 19:20 | PC.NURSE ---
assumed care of pt, pt in bed semi fowlers, respirations even an unlabored Pt requesting something to eat. no diet order in yet. provider advised. awaiting orders.
--- NOTE | 2025-06-10 19:26 | PC.NURSE ---
pt given turkey sandwich and sugar free gisela mallory
[2025-06-10 21:06] VITALS: BP 173/67; PULSE 61; RESP 20; TEMP 36.9; O2SAT 98
[2025-06-10 21:13] LABS: Glucose, Whole Blood 210 mg/dL (60-115)
[2025-06-10 23:30] VITALS: BP 177/70; PULSE 60; RESP 17; TEMP 36.8; O2SAT 99
--- NOTE | 2025-06-10 23:48 | PC.NURSE ---
pt medications confirmed through external pharmacy portal, insulin and b/p medications reviewed with pt as well. Pt last POC 210. Provider advised.
[2025-06-11] MEDS: Insulin Glargine,Hum.rec.anlog 100 UNIT/ML 10 ML VIAL 20 UNIT SUBCUT ×2 (00:15→21:38)
--- NOTE | 2025-06-11 00:18 | PC.NURSE ---
pt medicated per MAR.
--- NOTE | 2025-06-11 03:27 | PM.IMHP ---
History of Present Illness Date of Service: 06/11/25 Attending physician on admission: Jorge Logan Chief Complaint: N/V Pt is a 64 yo female with P<H ESRD on dialysis M.W,F in [place], IDDM, obesity, hypertension, anemia secondary to kidney failure, UTI, hyperlipidemia, cirrhosis of the liver, neuropathy, , GERD RLS was brought in by ambulance complaining of left flank pain and epigastric pain with profound nausea but no vomiting. Patient states she went to dialysis this past Wednesday completed the treatment and since then just has not been feeling well. Patient thought she might have a urinary tract infection as well. Patient has been having some mild burning with urination. Patient does make urine throughout the day. Patient does try to control her fluid intake at home as well. Patient states she has not adverse reaction or allergic reaction to heparin injection from past admissions. Patient does not seem to have a problem with heparin that is administered through the machine for dialysis. Request from the ED for admission so patient can have dialysis this morning per patient's request. Workup in the ED identified a urinary tract infection and patient was started on ceftriaxone. CT of the chest negative for any segmental or lobar pneumonia. Patient has a 1.1 cm irregular nodule in the left lower lobe that needs follow-up as an outpatient. Abdominal pelvis CT shows no acute obstructive uropathy with nonobstructing bilateral nephrolithiasis. There is a question of possible cystitis with wall thickening of the urinary bladder. Patient also found to have cellulitic changes in the right abdominal and pelvic wall with no underlying abscess or necrotizing fasciitis (nothing noted externally, no open wounds). Chronic cirrhosis of the liver noted as well. Review of Systems Review of Systems: Patient currently denies any chest pain or shortness of breath at rest. Patient is not having abdominal pain, diarrhea or constipation issues. Nausea is persistent but patient has not vomited since arrival. Patient denies any lower leg pain or difficulty walking. Yes all other systems are reviewed and are negative [facility] Medical History HTN (hypertension) HLD (hyperlipidemia) Frequent UTI Anemia Acute on chronic diastolic (congestive) heart failure Type 2 diabetes mellitus with obesity Clostridium difficile diarrhea Morbid obesity Detrusor dysfunction Bladder outlet obstruction Esophagitis CKD (chronic kidney disease) stage 4, GFR 15-29 ml/min Hypothyroidism IBS (irritable bowel syndrome) Cognitive capacity: A/O X3 Functional capacity: uses cane/walker Patient : No Family History Father Diabetes Mother Diabetes Hypertension Breast cancer Family/Other Breast cancer Uterine cancer Surgical History History of tubal ligation Social History Household Members: None Housing: Apartment Do you presently have visiting nurse or other home services: Yes ([employer] services) Alcohol intake: never Comment: bedbound at baseline Patient Tobacco Use Status: Former Tobacco user e-Cigarette/Vaping Use: Never Used Second Hand Smoke Exposure: No Advance Directives: Yes Advance Directives on File: Yes Advance Directives Date on File: 10/09/20 Do you have a plan to hurt others: No Plan Nutrition Risks: No Nutritional Risk service: No Current occupational status: disabled Cognitive needs: No Hearing needs: No Vision needs: Yes Meds Allergies Allergy/AdvReac Type Severity Reaction Status Date / Time metformin (METFORMIN) Allergy Severe HIVES Verified 06/10/25 13:35 heparin Allergy Intermediate Itching Verified 06/11/25 03:56 canagliflozin (From Invokana) Allergy Hives Verified 06/10/25 13:35 Active Medications: Current Medications Acetaminophen (Acetaminophen 325 Mg Tablet) 650 mg PO Q6H PRN PRN Reason: Pain (Scale Score 4-6) Acetaminophen (Acetaminophen 325 Mg Tablet) 650 mg PO Q6H PRN PRN Reason: Pain, Mild 1-3,fever,headache Albuterol/Ipratropium (Albuterol/Iprat 2.5/0.5mg 3 Ml Ampul.Neb) 3 ml INHALE Q4H PRN PRN Reason: Shortness of Breath/Wheezing Amlodipine Besylate (Amlodipine Besylate 10 Mg Tablet) 10 mg PO DAILY [facility]; Protocol Calcium Carbonate (Calcium Carbonate 750 Mg Tab.Chew) 750 mg PO Q4H PRN PRN Reason: Heartburn Gabapentin (Gabapentin 100 Mg Capsule) 100 mg PO BID [facility] Last Admin: 06/11/25 00:15 Dose: 100 mg Heparin Sodium (Porcine) (Heparin Sodium,Porcine 5,000 Unit/Ml Vial) 5,000 unit SUBCUT Q12H [facility] Insulin Glargine (Insulin Glargine,Hum.Rec.Anlog 100 Unit/Ml 10 Ml Vial) 20 unit SUBCUT BEDTIME [facility] Last Admin: 06/11/25 00:15 Dose: 20 unit Insulin Human Lispro (Insulin Lispro 100 Unit/Ml 3 Ml Vial) 10 - 18 unit SUBCUT TIDWM [facility] Last Admin: 06/11/25 00:20 Dose: Not Given Magnesium Hydroxide (Milk Of Magnesia 30 Ml Oral.Susp) 30 ml PO DAILY PRN PRN Reason: Constipation Melatonin (Melatonin 3 Mg Tablet) 6 mg PO BEDTIME PRN PRN Reason: Insomnia Ondansetron HCl (Ondansetron Hcl 4 Mg/2 Ml Vial) 4 mg IVPUSH Q8H PRN PRN Reason: Nausea and Vomiting Pantoprazole Sodium (Pantoprazole Sodium 20 Mg Tablet.Dr) 20 mg PO DAILY [facility] Polyethylene Glycol (Polyethylene Glycol 3350 17 Gm Powd.Pack) 17 gm PO DAILY PRN PRN Reason: Constipation Senna (Sennosides 8.6 Mg Tablet) 17.2 mg PO BEDTIME [facility] Sodium Chloride (0.9 % Sodium Chloride Flush 3 Ml Syringe) 3 ml IVFLUSH QSHIFT [facility] Home Medications ?Medication ?Instructions ?Recorded ?Confirmed ?Last Taken ?Type amlodipine 10 mg tablet 10 mg PO DAILY 02/03/22 06/10/25 Unknown History oxybutynin chloride 15 mg 15 mg PO DAILY 03/06/22 05/28/25 Unknown History tablet,extended release 24 hr insulin lispro 100 unit/mL 10 - 18 unit subcut TIDWM 07/11/22 06/10/25 Unknown History subcutaneous solution (Humalog U-100 Insulin) nystatin 100,000 unit/gram topical 1 appl topical TID 07/11/22 05/28/25 Unknown History cream insulin glargine 100 unit/mL (3 20 unit subcut BEDTIME 05/12/25 06/10/25 Unknown History mL) subcutaneous pen (Lantus Solostar U-100 Insulin) ropinirole 0.25 mg tablet 0.25 mg PO BEDTIME 05/12/25 05/28/25 Unknown History Benzocaine-Isopropyl Alcohol 1 appl topical BID 05/13/25 05/28/25 Unknown History Topical Swabs Glucose 45% Oral Gel 1 - 2 tube PO DAILY PRN for low BG 05/13/25 05/28/25 Unknown History Milk Of Magnasia 30 ml PO DAILY PRN Constipation 05/13/25 05/28/25 Unknown History Triamcinolone 0.1% Ointment 1 appl topical TID PRN diabetic 05/13/25 05/28/25 Unknown History psoriasis acetaminophen 325 mg tablet 650 mg PO Q6H PRN Pain (Scale 05/13/25 06/10/25 Unknown History Score 4-6) bisacodyl 10 mg rectal suppository 10 mg MN DAILY PRN Constipation 05/13/25 05/28/25 Unknown History docusate sodium 100 mg capsule 100 mg PO DAILY 05/13/25 05/28/25 Unknown History epoetin silverio 20,000 unit/mL 20,000 unit subcut TH 05/13/25 05/28/25 Unknown History injection solution ferrous fumarate 325 mg (106 mg 325 mg PO DAILY 05/13/25 05/28/25 Unknown History iron) tablet glucagon 1 mg solution for 1 mg IM Q20M PRN low BG 05/13/25 05/28/25 Unknown History injection hydralazine 25 mg tablet 25 mg PO TID 05/13/25 06/11/25 Unknown History pantoprazole 20 mg tablet,delayed 20 mg PO DAILY 05/13/25 06/10/25 Unknown History release polyethylene glycol 3350 17 gram 17 g PO DAILY 05/13/25 05/28/25 Unknown History oral powder packet sennosides 8.6 mg tablet (senna) 17.2 mg PO BEDTIME 05/13/25 05/28/25 Unknown History sodium phosphates 19 gram-7 118 ml MN DAILY 05/13/25 05/28/25 Unknown History gram/118 mL enema Physical Exam Vital Signs and Narrative: Vital Signs: Last Vital Signs Temp 98.2 F 06/10/25 23:30 Pulse 60 06/10/25 23:30 Resp 17 06/10/25 23:30 BP 177/70 H 06/10/25 23:30 Pulse Ox 99 06/10/25 23:30 O2 Del Method Room Air 06/10/25 23:30 BMI result Body Mass Index 64.6 Alert and orientated X3, able to give good history. Neuro: CN II-X11 intact, no deficits, visual acuity intact EYES: PERRLA, EOM intact, conjunctiva pink, sclera nonicteric ENT: hearing intact, no issues with swallowing, uvula midline, lips moist, nares patent no epistaxis Cardiac: S1 S2 RRR, no murmur, no JVD, moderate edema in Lower ext Pulmonary: lungs diminshed B Abdominal: BS active in all 4 quadrants, no guarding, tenderness, rebounding, morbidly obese, pannus large, no redness rash or opened wounds found on abdomen or backside MSK: strength 4-5/5 upper and lower extremities : no CVA tenderness no bladder distension Extremities: moderate edema in lower extremities, PT and DP pulses palpable +2 Psych: mood stable, judgement and insight good Skin: no new rashes or lesions or open wounds Results Labs 06/10/25 13:45 06/10/25 13:45 Labs: Laboratory Results - last 24 hr 06/10/25 06/10/25 06/10/25 13:45 15:21 16:15 MCV 97.8 MCH 32.3 MCHC 33.0 RDW 13.2 Plt Count 212 MPV 10.0 Immature Gran % (Auto) 0.9 H Neut % (Auto) 74.1 H Lymph % (Auto) 13.1 L Bryan % (Auto) 9.0 Eos % (Auto) 2.4 Baso % (Auto) 0.5 Lymph # (Auto) 1.3 Bryan # (Auto) 0.9 Eos # (Auto) 0.2 Baso # (Auto) 0.1 Abs Immat Gran (auto) 0.09 H Absolute Neuts (auto) 7.5 Absolute Nucleated RBC 0.000 Nucleated RBC % (auto) 0.0 PT 10.7 L INR 0.9 Anion Gap 15 Estim Creat Clear Calc 25.1 Estimated GFR 12 POC Glucose Random Glucose 215 H Calcium 8.2 L Magnesium 1.8 Total Bilirubin 0.3 AST 25 ALT 12 Alkaline Phosphatase 122 H Troponin I High Sens 19.0 H 18.9 H Total Protein 6.4 L Albumin 3.5 Lipase 33 Urine Color Yellow Urine Appearance Cloudy Urine pH 8.0 Ur Specific [place] 1.010 Urine Protein 100 (2+) H Urine Glucose (UA) 250 H Urine Ketones Negative Urine Blood Negative Urine Nitrite Negative Ur Leukocyte Esterase Moderate (2+) H Urine RBC 0-2 Urine WBC 21-50 H Ur Squamous Epith Cells 0-2 Urine Bacteria 4+ Hyaline Casts 0-2 06/10/25 21:09 MCV MCH MCHC RDW Plt Count MPV Immature Gran % (Auto) Neut % (Auto) Lymph % (Auto) Bryan % (Auto) Eos % (Auto) Baso % (Auto) Lymph # (Auto) Bryan # (Auto) Eos # (Auto) Baso # (Auto) Abs Immat Gran (auto) Absolute Neuts (auto) Absolute Nucleated RBC Nucleated RBC % (auto) PT INR Anion Gap Estim Creat Clear Calc Estimated GFR POC Glucose 210 H Random Glucose Calcium Magnesium Total Bilirubin AST ALT Alkaline Phosphatase Troponin I High Sens Total Protein Albumin Lipase Urine Color Urine Appearance Urine pH Ur Specific [place] Urine Protein Urine Glucose (UA) Urine Ketones Urine Blood Urine Nitrite Ur Leukocyte Esterase Urine RBC Urine WBC Ur Squamous Epith Cells Urine Bacteria Hyaline Casts Imaging Radiologist's Impressions: CT ABD PELVIS IMPRESSION: 1. No acute obstructive uropathy. Nonobstructing bilateral nephrolithiasis. 2. Wall thickening in the urinary bladder most likely due to underdistention. In the appropriate clinical setting, cystitis is included in the differential. 3. Cellulitic changes in the right abdominal and pelvic wall with no underlying abscess or necrotizing fasciitis. 4. No obstructive or acute inflammatory changes in the gastrointestinal tract. 5. Cirrhotic liver morphology. CT CHEST IMPRESSION: 1. No segmental or lobar pneumonia. 2. 1.1 cm irregular nodule in the left lower lobe may be inflammatory or infectious in etiology. Recommend follow-up per Fleischner criteria. Assessment and Plan (1) End-stage renal disease (ESRD): Status: Acute (2) Acute UTI: Status: Acute Plan Pt is a 64 yo female with P<H ESRD on dialysis M.W,F in [place], IDDM, obesity, hypertension, anemia secondary to kidney failure, UTI, hyperlipidemia, cirrhosis of the liver, neuropathy, , GERD RLS was brought in by ambulance complaining of left flank pain and epigastric pain with profound nausea but no vomiting. Patient states she went to dialysis this past Wednesday completed the treatment and since then just has not been feeling well. Patient thought she might have a urinary tract infection as well. Patient has been having some mild burning with urination. Initially plan was per ED, PT/CM but pt requesting dialysis here so request made for admission under obs. UTI Pt started on ceftriaxone Follow urine culture Urine production adequate, no oliguria noted Nonobstructing nephrolithiasis on CT Urology as an outpatient Chronic issues per pt ESRD on dialysis M,W,F Nephrology consulted Pt will need dialysis later today Left graft, no IV - BP or labs draws left arm Fluid allowance 1500 mls Daily weights Epogen per nephrology Abdominal/ pelvic wall cellulitis on CT scan Internal finding, nothing found externally to include rashes, open wounds Pt is morbidly obese with vwry large pannus Monitor for external skin changes IDDM SSI DIabetic diet Hypertension Continue hydralazine and amodipine once med rec completed Low Na diet Chronic anemia secondary to ESRD Epogen per nephrology H/H stable, no indication for transfusion Morbid Obesity PT eval indicated for DC planning Nutritional consultation requested for review CM ordered to help with DC plan DVT prophylaxis: pt refused, allergic reaction to injections involving any type of heparin, pt can tolerate heparin dose and strength received in dialysis MED REC PENDING FULL CODE Quality Stroke Does the patient have a stroke diagnosis?: No Reason for No Anti-thrombotic by Day Two: Drug declined by patient VTE Prior VTE?: No VTE Risk Level:: Medical - moderate - high VTE Device Contraindication: N/A - Device Ordered VTE Drug Contraindication: N/A - Med Ordered
--- NOTE | 2025-06-11 03:47 | PC.NURSE ---
Pt states she is allergic to heparin, rash and severe itch with heparin. provider advised, awaiting new orders
--- NOTE | 2025-06-11 05:02 | PC.NURSE ---
late entry: pt request something for nausea, medicated per MAR.
[2025-06-11 06:49] LABS: Anion Gap 17 (12-20); Blood Urea Nitrogen 52 mg/dL (9-16); Calcium 8.5 mg/dL (8.4-10.2); Carbon Dioxide 22 mmol/L (22-29); Chloride 102 mmol/L (96-108); Creatinine Clr Calc Pharmacy 24.0; Estimated Glomerular Filt Rate 11; Hematocrit 27.1 % (37.0-47.0); Hemoglobin 8.8 g/dl (12.0-16.0); Imm Gran Abs Auto 0.08 X10*3/uL (0.00-0.03); Imm Gran Pct Auto 0.8 % (0.0-0.4); Lymphocytes Absolute Auto 1.2 X10*3/uL (1.2-4.9); Mean Corpuscular HGB Conc 32.5 g/dl (31.0-35.0); Mean Corpuscular Hemoglobin 32.0 pg (27.0-33.0); Mean Corpuscular Volume 98.5 fL (80.0-98.0); NRBC Abs Auto 0.000 X10*3/uL (0.0-0.012); NRBC Pct Auto 0.0 /100WBC (0.0-0.2); Potassium 4.5 mmol/L (3.3-5.1); Red Blood Count 2.75 X10*6/uL (4.20-5.50); Sodium 136 mmol/L (135-145); White Blood Count 9.7 X10*3/uL (4.8-10.8)
--- NOTE | 2025-06-11 07:15 | P.PNIM_ITS ---
Subjective Subjective Date of Service: 06/11/25 Interval History: Patient appears to have a voracious appetite Nausea appears to be better controlled as she is tolerating the diet Patient to have hemodialysis per her schedule today She does not appear to have a UTI hence have discontinued antibiotics PTOT requested manager of employee relations aware Review of Systems Review of Systems: Yes all other systems are reviewed and are negative Physical Exam 2 Exam: Exam: General: AOx3, morbid obesity Resp: CTA bilaterally CVS: S1, S2, RRR GI: +BS, NT, protuberant Neuro: Limited secondary to body habitus Motor grossly intact bilaterally Psych: Appropriate affect Vital Signs: Vital Signs: Last Vital Signs Temp 98.2 F 06/10/25 23:30 Pulse 60 06/10/25 23:30 Resp 17 06/10/25 23:30 BP 177/70 H 06/10/25 23:30 Pulse Ox 99 06/10/25 23:30 O2 Del Method Room Air 06/10/25 23:30 BMI result Body Mass Index 64.6 Objective Data Active Medications Acetaminophen (Acetaminophen 325 Mg Tablet) 650 mg PO Q6H PRN PRN Reason: Pain (Scale Score 4-6) Acetaminophen (Acetaminophen 325 Mg Tablet) 650 mg PO Q6H PRN PRN Reason: Pain, Mild 1-3,fever,headache Albuterol/Ipratropium (Albuterol/Iprat 2.5/0.5mg 3 Ml Ampul.Neb) 3 ml INHALE Q4H PRN PRN Reason: Shortness of Breath/Wheezing Amlodipine Besylate (Amlodipine Besylate 10 Mg Tablet) 10 mg PO DAILY [facility]; Protocol Calcium Carbonate (Calcium Carbonate 750 Mg Tab.Chew) 750 mg PO Q4H PRN PRN Reason: Heartburn Ceftriaxone Sodium (Ceftriaxone Sodium 1 Gm Vial) 1 gm IVPUSH Q24H [facility] Dextrose (Dextrose 50 % 25 Gm/50 Ml Syringe) 25 gm IVPUSH Q15M PRN; Protocol PRN Reason: per Hypoglycemia Standing Ord. Gabapentin (Gabapentin 100 Mg Capsule) 100 mg PO BID [facility] Last Admin: 06/11/25 00:15 Dose: 100 mg Documented By: BREANN Glucose (Glucose Gel 15 Gm Gel..Gram.) 15 gm PO Q15M PRN; Protocol PRN Reason: per Hypoglycemia Standing Ord. Insulin Glargine (Insulin Glargine,Hum.Rec.Anlog 100 Unit/Ml 10 Ml Vial) 20 unit SUBCUT BEDTIME [facility] Last Admin: 06/11/25 00:15 Dose: 20 unit Documented By: BREANN Insulin Human Lispro (Insulin Lispro 100 Unit/Ml 3 Ml Vial) 10 - 18 unit SUBCUT TIDWM [facility] Last Admin: 06/11/25 00:20 Dose: Not Given Documented By: BREANN Non-Admin Reason: to be given with meals Insulin Human Lispro (Insulin Lispro 100 Unit/Ml 3 Ml Vial) 0 - 10 unit SUBCUT QIDACHS [facility]; Protocol Lidocaine HCl (Lidocaine Hcl 1 % Mpf 2 Ml Vial) 0.5 ml SUBCUT MOWEFR@1645 [facility] Magnesium Hydroxide (Milk Of Magnesia 30 Ml Oral.Susp) 30 ml PO DAILY PRN PRN Reason: Constipation Melatonin (Melatonin 3 Mg Tablet) 6 mg PO BEDTIME PRN PRN Reason: Insomnia Ondansetron HCl (Ondansetron Hcl 4 Mg/2 Ml Vial) 4 mg IVPUSH Q8H PRN PRN Reason: Nausea and Vomiting Last Admin: 06/11/25 04:46 Dose: 4 mg Documented By: BREANN Pantoprazole Sodium (Pantoprazole Sodium 20 Mg Tablet.Dr) 20 mg PO DAILY [facility] Polyethylene Glycol (Polyethylene Glycol 3350 17 Gm Powd.Pack) 17 gm PO DAILY PRN PRN Reason: Constipation Senna (Sennosides 8.6 Mg Tablet) 17.2 mg PO BEDTIME [facility] Sodium Chloride (0.9 % Sodium Chloride Flush 3 Ml Syringe) 3 ml IVFLUSH QSHIFT [facility] Labs 06/11/25 06:30 06/11/25 06:30 Labs: Laboratory Results - last 24 hr 06/10/25 06/10/25 06/10/25 13:45 15:21 16:15 MCV 97.8 MCH 32.3 MCHC 33.0 RDW 13.2 Plt Count 212 MPV 10.0 Immature Gran % (Auto) 0.9 H Neut % (Auto) 74.1 H Lymph % (Auto) 13.1 L Fisher % (Auto) 9.0 Eos % (Auto) 2.4 Baso % (Auto) 0.5 Lymph # (Auto) 1.3 Fisher # (Auto) 0.9 Eos # (Auto) 0.2 Baso # (Auto) 0.1 Abs Immat Gran (auto) 0.09 H Absolute Neuts (auto) 7.5 Absolute Nucleated RBC 0.000 Nucleated RBC % (auto) 0.0 PT 10.7 L INR 0.9 Anion Gap 15 Estim Creat Clear Calc 25.1 Estimated GFR 12 POC Glucose Random Glucose 215 H Calcium 8.2 L Magnesium 1.8 Total Bilirubin 0.3 AST 25 ALT 12 Alkaline Phosphatase 122 H Troponin I High Sens 19.0 H 18.9 H Total Protein 6.4 L Albumin 3.5 Lipase 33 Urine Color Yellow Urine Appearance Cloudy Urine pH 8.0 Ur Specific [place] 1.010 Urine Protein 100 (2+) H Urine Glucose (UA) 250 H Urine Ketones Negative Urine Blood Negative Urine Nitrite Negative Ur Leukocyte Esterase Moderate (2+) H Urine RBC 0-2 Urine WBC 21-50 H Ur Squamous Epith Cells 0-2 Urine Bacteria 4+ Hyaline Casts 0-2 06/10/25 06/11/25 21:09 06:30 MCV 98.5 H MCH 32.0 MCHC 32.5 RDW 13.4 Plt Count TNP MPV TNP Immature Gran % (Auto) 0.8 H Neut % (Auto) 73.6 H Lymph % (Auto) 12.2 L Fisher % (Auto) 8.7 Eos % (Auto) 4.1 H Baso % (Auto) 0.6 Lymph # (Auto) 1.2 Fisher # (Auto) 0.8 Eos # (Auto) 0.4 Baso # (Auto) 0.1 Abs Immat Gran (auto) 0.08 H Absolute Neuts (auto) 7.1 Absolute Nucleated RBC 0.000 Nucleated RBC % (auto) 0.0 PT INR Anion Gap 17 Estim Creat Clear Calc 24.0 Estimated GFR 11 POC Glucose 210 H Random Glucose 180 H Calcium 8.5 Magnesium Total Bilirubin AST ALT Alkaline Phosphatase Troponin I High Sens Total Protein Albumin Lipase Urine Color Urine Appearance Urine pH Ur Specific [place] Urine Protein Urine Glucose (UA) Urine Ketones Urine Blood Urine Nitrite Ur Leukocyte Esterase Urine RBC Urine WBC Ur Squamous Epith Cells Urine Bacteria Hyaline Casts Assessment and Plan (1) T2DM (type 2 diabetes mellitus): Status: Acute Plan 64-year-old female PMHx of morbid obesity BMI (64.6), DM, HTN, bed bound at baseline, needs assistance with ADLs, ESRD on HD last dialysis was and was feeling nauseous. She was admitted under arms overnight as she is scheduled for hemodialysis today. 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 There was significant challenge in placement during prior admission for similar concerns. Quality Stroke Does the patient have a stroke diagnosis?: No Reason for No Anti-thrombotic by Day Two: Drug declined by patient VTE Prior VTE?: No VTE Risk Level:: Medical - moderate - high VTE Device Contraindication: N/A - Device Ordered VTE Drug Contraindication: N/A - Med Ordered
[2025-06-11 07:57] LABS: Glucose, Whole Blood 180 mg/dL (60-115)
[2025-06-11 08:31] VITALS: BP 168/141
[2025-06-11 08:58] VITALS: BP 168/141; PULSE 79; RESP 14; TEMP 36.8; O2SAT 98
--- NOTE | 2025-06-11 09:04 | PHA.MEDREC ---
Pharmacy Consult ? Medication Reconciliation Pharmacy has completed the medication reconciliation. Previously discharged 05/25
[2025-06-11 10:21] VITALS: BP 174/73; PULSE 67; RESP 18; TEMP 36.2; O2SAT 96
[2025-06-11 16:00] VITALS: BP 167/68; PULSE 62; RESP 18; TEMP 36.2; O2SAT 98
--- NOTE | 2025-06-11 16:20 | MHC.CM.PN ---
MINDY verdin. Patient lives in an apartment alone. She has daily [employer] SAL[employer] DIRECTOR, 63 hrs/wk. Primarily bedbound and has a barbara lift. HD @ [facility] [address] [facility] M/W/F, BLS transport [facility] arranged by HD clinic. PCP Alexi Lynne MD HCP on file and verified. DP: Per medically cleared for dc. Per patient, at functional baseline. PT/OT not required. BLS transport scheduled for home w/ resumption of COMMERCIAL SALES DIRECTOR services at 6pm. Patient reports she will call her COMMERCIAL SALES DIRECTOR to meet her there.
--- NOTE | 2025-06-11 16:26 | PM.DS ---
DS: Providers Provider Date of Service: 06/11/25 Date of admission: 06/11/25 03:21 Date of discharge: 06/11/25 Primary care physician: Alexi Lynne MD Consults: 06/10/25 18:22 Consult to Case Management Stat Comment: 06/11/25 03:25 Consult to Case Management Routine Comment: plan was not for admit but for CM, pt needs AM lis 06/11/25 03:26 Consult to Nephrology Routine Consulting Provider: [facility] Reason for consultation: needs AM dialysis was originally PT/CM, admitted due to ESRD needs Has provider been notified: No 06/11/25 04:19 Consult to Case Management Routine Comment: plan per ED for DC plan DS: Diagnosis Discharge Diagnosis (1) T2DM (type 2 diabetes mellitus): Status: Acute DS: Summary Hospital Course Time spent discussing smoking cessation with patient: more than 10 minutes Physical Exam Vital Signs: Vital Signs: Last Vital Signs Temp 97.2 F 06/11/25 16:00 Pulse 62 06/11/25 16:00 Resp 18 06/11/25 16:00 BP 167/68 H 06/11/25 16:00 Pulse Ox 98 06/11/25 16:00 O2 Del Method Room Air 06/11/25 16:00 BMI result Body Mass Index 64.6 DS: Data Data Completed and Pending Completed studies during hospitalization [Text1]: Procedures Excision of Duodenum, Via Natural or Artificial Opening Endoscopic, Diagnostic (07/31/20) Excision of Stomach, Pylorus, Via Natural or Artificial Opening Endoscopic, Diagnostic (07/31/20) Performance of Urinary Filtration, Intermittent, Less than 6 Hours Per Day (05/14/25) Labs on day of discharge: Laboratory Results - last 24 hr 06/10/25 06/10/25 06/11/25 16:15 21:09 06:30 WBC 9.7 RBC 2.75 L Hgb 8.8 L Hct 27.1 L MCV 98.5 H MCH 32.0 MCHC 32.5 RDW 13.4 Plt Count TNP MPV TNP Immature Gran % (Auto) 0.8 H Neut % (Auto) 73.6 H Lymph % (Auto) 12.2 L [place] % (Auto) 8.7 Eos % (Auto) 4.1 H Baso % (Auto) 0.6 Lymph # (Auto) 1.2 [place] # (Auto) 0.8 Eos # (Auto) 0.4 Baso # (Auto) 0.1 Abs Immat Gran (auto) 0.08 H Absolute Neuts (auto) 7.1 Absolute Nucleated RBC 0.000 Nucleated RBC % (auto) 0.0 Sodium 136 Potassium 4.5 Chloride 102 Carbon Dioxide 22 Anion Gap 17 BUN 52 H Creatinine 3.93 H Estim Creat Clear Calc 24.0 Estimated GFR 11 POC Glucose 210 H Random Glucose 180 H Calcium 8.5 Troponin I High Sens 18.9 H 06/11/25 07:51 WBC RBC Hgb Hct MCV MCH MCHC RDW Plt Count MPV Immature Gran % (Auto) Neut % (Auto) Lymph % (Auto) [place] % (Auto) Eos % (Auto) Baso % (Auto) Lymph # (Auto) [place] # (Auto) Eos # (Auto) Baso # (Auto) Abs Immat Gran (auto) Absolute Neuts (auto) Absolute Nucleated RBC Nucleated RBC % (auto) Sodium Potassium Chloride Carbon Dioxide Anion Gap BUN Creatinine Estim Creat Clear Calc Estimated GFR POC Glucose 180 H Random Glucose Calcium Troponin I High Sens Preliminary micro results at discharge 06/10/25 Unknown Urine Culture - Preliminary Urine clean catch - Clean Catch Midstream Gram negative osvaldo Discharge Plan Discharge Referrals: Alexi Lynne MD [Primary Care Provider, Internal Medicine] - 1 Week Discharge Medications: Continued albuterol sulfate 90 mcg/actuation HFA aerosol inhaler 2 puff inhalation Q4H PRN (Reason: bronchospasm) 30 Days Qty: 8.5 5RF (DME) Accu-Chek Berna Plus test strp Strip See Rx Instructions .Route Qty: 300 8RF Rx Instructions: to check blood sugars five times a day ([facility] [place]) blood sugar diagnostic Strip See Rx Instructions .ROUTE .MEDSUPPLY Qty: 200 8RF Rx Instructions: FREESTYLE TEST STRIPS ([facility] [place]) hospital bed Kit See Rx Instructions .Route Qty: 1 0RF Rx Instructions: As directed ([facility] [place]) pen needle, diabetic 32 gauge x needle See Rx Instructions .Route Qty: 100 0RF Rx Instructions: use TID (DME) insulin syringe-needle U-100 [BD Insulin Syringe Ultra-Fine] 1 mL 30 gauge x 1/2 syringe See Rx Instructions .ROUTE .MEDSUPPLY Qty: 100 3RF Rx Instructions: TID nystatin 100,000 unit/gram Cream 1 appl TOPICAL TID Protocol: Apply to: Apply to: UNDER BREASTS, BELLY FOLDS epoetin silverio 20,000 unit/mL Solution 20,000 unit SUBCUT TH Triamcinolone 0.1% Ointment ointment 1 appl topical TID PRN (Reason: diabetic psoriasis) insulin lispro [Humalog U-100 Insulin] 100 unit/mL solution 10 - 18 unit subcut TIDWM 30 Days Qty: 10 3RF Rx Instructions: Patient uses a sliding scale insulin glargine [Lantus Solostar U-100 Insulin] 100 unit/mL (3 mL) insulin pen 20 unit subcut BEDTIME 30 Days Qty: 3 3RF ropinirole 0.25 mg tablet 0.25 mg PO BEDTIME 30 Days Qty: 30 2RF acetaminophen 325 mg Tablet 650 mg PO Q6H PRN (Reason: Pain (Scale Score 4-6)) 30 Days Qty: 3 3RF pantoprazole 20 mg Tablet,Delayed Release (Dr/Ec) 20 mg PO DAILY 30 Days Qty: 30 3RF sennosides [senna] 8.6 mg Tablet 17.2 mg PO BEDTIME 30 Days Qty: 30 3RF bisacodyl 10 mg Suppository 10 mg AR DAILY PRN (Reason: Constipation) 30 Days Qty: 30 3RF ferrous fumarate 325 mg (106 mg iron) Tablet 325 mg PO DAILY 30 Days Qty: 30 3RF glucagon 1 mg Recon Soln 1 mg IM Q20M PRN (Reason: low BG) 30 Days Qty: 30 3RF Rx Instructions: until target blood sugar attained hydralazine 25 mg Tablet 25 mg PO TID 30 Days Qty: 30 3RF polyethylene glycol 3350 17 gram Powder In Packet 17 g PO DAILY 30 Days Qty: 30 3RF sodium phosphates 19-7 gram/118 mL Enema 118 ml AR DAILY 30 Days Qty: 30 3RF Rx Instructions: Give if Dulcolax suppository is ineffective docusate sodium 100 mg Capsule 100 mg PO DAILY 30 Days Qty: 30 3RF gabapentin 100 mg capsule 100 mg PO BID 30 Days Qty: 60 0RF ondansetron 4 mg tablet,disintegrating 4 mg translingual TIDAC PRN (Reason: nausea) 30 Days Qty: 12 3RF amlodipine 10 mg tablet 10 mg PO DAILY 30 Days Qty: 30 3RF oxybutynin chloride 15 mg tablet extended release 24hr 15 mg PO DAILY 30 Days Qty: 30 3RF Discharge Orders: Discharge Order (Routine); Ordered 06/11/25 Ordered By: Alicia Cotter Print Language: Belarusian
[2025-06-11 16:36] LABS: Glucose, Whole Blood 141 mg/dL (60-115)
--- NOTE | 2025-06-11 17:38 | PM.EVENT ---
Event Note Date of Service: 06/11/25 Event Note: Patient noted to have high grade 2/2 Gram-positive cocci in clusters hence we are initiating vancomycin, meropenem (history of ESBL recurrent complicated UTI), ID consult in the a.m., TTE, fluids per sepsis protocol , limited given ESRD We will continue to repeat blood cultures until negative Wound care consult Time Spent With Patient Time: Total time managing care of this patient today ____ minutes.
--- NOTE | 2025-06-11 19:20 | PHA.PROG ---
Admission Date/Time: June 11, 2025 03:21 Indication: BACT Weight in k.437 kg Serum Creatinine - Last 168 Hours 06/10/25 06/11/25 13:45 06:30 Creatinine 3.76 H 3.93 H Estimated CrCl and GFR - Last 168 Hours 06/10/25 06/11/25 13:45 06:30 Estim Creat Clear Calc 25.1 24.0 Estimated GFR 12 11 Vancomycin Loading Dose: 2000 Current Vancomycin Dosing Regimen: PER DIALYSIS Vancomycin Monitoring using AUC goal of 400 - 600 range with trough as surrogate marker: Date and Time for next Vancomycin Level to be drawn: Pharmacist Comments on Vancomycin Plan: Vancomycin dosing will take advantage of Normal as a clinical decision support tool that uses Bayesian modeling to calculate individual patient's pharmacokinetic parameters and forecast the patient's drug concentration time course with the target goal AUC 24 range of 400 - 600 mg/L/hr.
[2025-06-11] MEDS: vancomycin/NS 2,000 MG/500 ML PLAST..BAG 250 MG IV (19:47)
[2025-06-11] MEDS: 0.9 % Sodium Chloride Flush 3 ML SYRINGE IVFLUSH (19:47)
[2025-06-11 20:00] VITALS: BP 135/64; PULSE 69; RESP 18; TEMP 36.6; O2SAT 95
[2025-06-11 20:32] LABS: Glucose, Whole Blood 342 mg/dL (60-115)
[2025-06-11 23:33] VITALS: BP 139/62; PULSE 66; RESP 18; TEMP 36.1; O2SAT 98
[2025-06-12 02:50] VITALS: BP 141/64; PULSE 64; RESP 16; TEMP 36.1; O2SAT 95
[2025-06-12 06:00] VITALS: BMI 53.0
[2025-06-12 06:07] LABS: MANUAL DIFF FLAG NO
[2025-06-12 06:21] LABS: Hematocrit 25.6 % (37.0-47.0); Hemoglobin 8.2 g/dl (12.0-16.0); INTERNATIONAL NORM RATIO 1.0 (0.9-1.1); Imm Gran Abs Auto 0.07 X10*3/uL (0.00-0.03); Imm Gran Pct Auto 0.7 % (0.0-0.4); Lymphocytes Absolute Auto 0.6 X10*3/uL (1.2-4.9); Mean Corpuscular HGB Conc 32.0 g/dl (31.0-35.0); Mean Corpuscular Hemoglobin 32.3 pg (27.0-33.0); Mean Corpuscular Volume 100.8 fL (80.0-98.0); NRBC Abs Auto 0.000 X10*3/uL (0.0-0.012); NRBC Pct Auto 0.0 /100WBC (0.0-0.2); Platelet Count 208 X10*3/uL (160-400); Prothrombin Time 11.0 SEC (10.9-12.4); Red Blood Count 2.54 X10*6/uL (4.20-5.50); White Blood Count 9.4 X10*3/uL (4.8-10.8)
[2025-06-12 06:34] LABS: Alanine Aminotransferase 8 U/L (0-31); Albumin Level 3.0 g/dL (3.5-5.0); Alkaline Phosphatase 109 U/L (39-117); Anion Gap 14 (12-20); Aspartate Amino Transferase 17 U/L (5-31); Blood Urea Nitrogen 35 mg/dL (9-16); Calcium 8.0 mg/dL (8.4-10.2); Carbon Dioxide 27 mmol/L (22-29); Chloride 100 mmol/L (96-108); Creatinine Clr Calc Pharmacy 24.7; Estimated Glomerular Filt Rate 14; Magnesium 1.7 mg/dL (1.6-2.6); Potassium 4.2 mmol/L (3.3-5.1); Sodium 137 mmol/L (135-145); Total Protein 5.7 g/dL (6.5-8.0)
--- NOTE | 2025-06-12 07:00 | CA_ITS ---
Transthoracic Echocardiogram Patient (Last, First, Middle): Isabel Carcamo, Gender: Female Date of : 1960 Age: 64 Procedure Date: 06/12/2025 Procedure Type: Transthoracic Echocardiogram Location: S3E Height: 167.64 cm Weight: 148.78 kg BSA: 2.47 m2 Heart Rate: bpm BP: 116 / 58 mmHg Manager Developmental: Referring MD: Alicia Cotter MD Symptoms: Gram positive cocci in clusters, prior ESBL bacteremia Study Quality: Adequate Conclusions: - Normal left ventricular size and systolic function. There is moderately increased left ventricular wall thickness. The visually estimated ejection fraction is between 55-60%. - E/E prime ratio is between 8 and 15 consistent with indeterminate filling pressures. - Normal right ventricular cavity size and systolic function. Findings Left Ventricle Normal left ventricular size and systolic function. There is moderately increased left ventricular wall thickness. The visually estimated ejection fraction is between 55-60%. Abnormal diastolic function is noted. Spectral Doppler is indicative of a pseudonormal filling pattern. E/E prime ratio is between 8 and 15 consistent with indeterminate filling pressures. Right Ventricle Normal right ventricular cavity size and systolic function. Atria The left atrium is normal in size. The right atrium is normal in size. Aortic Valve Normal aortic valve structure and function. There is no aortic valve stenosis. There is trace (trivial) aortic valve regurgitation. Mitral Valve The mitral valve appears normal. There is no mitral valve regurgitation. There is no mitral valve stenosis. Pulmonic Valve The pulmonic valve is likely normal. Tricuspid Valve Normal tricuspid valve structure. There is no tricuspid valve regurgitation. Tricuspid regurgitation envelope is inadequate for calculation of right ventricular systolic pressure. Normal right atrial pressure. Great Vessels All visible segments of the aorta are normal in size. The visualized portions of the pulmonary artery and branches are normal. Venous The inferior vena cava is normal in size and collapses greater than 50% with inspiration. Pericardium/Pleural There is no evidence of pericardial effusion. Prior Study Comparison No significant change compared to prior study dated: 12/30/2020. Measurements 2D Linear Measurements IVSd: 1.28 0.6-0.9/0.6-1.0 cm LVIDd: 5.30 3.9-5.3/4.2-5.9 cm LVIDd Index: 2.15 2.4-3.2/2.2-3.1 cm/m2 LVIDs: 3.19 2.0-3.6 cm LVPWd: 1.28 0.7-1.1 cm Ao Root: 3.40 2.1-3.5 cm LA Diam: 3.30 2.7-3.8/3.0-4.0 cm LAIDs Index: 1.34 1.5-2.3 cm/m2 LV Mass: 350.18 67-162/88-224 g LV Mass Index: 141.77 43-95/49-115 g/m2 LVOT Diam: 2.10 3.0+(-)1.3 cm 2D Systolic Function EF 4C: 66.10 >55% EF 2C: 67.90 >55% EF BiP: 66.10 >55% Mitral Valve MV VTI: 0.49 MV Pk Olegario: 1.26 MV Mn Olegario: 0.60 MV Pk Grad: 6.00 MV Mn Grad: 2.00 MV Pk E: 1.02 MV PK A: 0.88 MV Decel Time: 380.00 E/A: 1.20 E'Lateral: 8.92 E'Medial: 6.42 E/E' Med: 15.90 E/E' Lat: 11.40 PHT: 111.00 MVA PHT: 1.98 MVA Continuity: 2.04 Decel Childress: 2.67 Aortic Valve AoV Pk Olegario: 1.63 AoV Mn Olegario: 1.04 AoV VTI: 0.40 AoV Pk Grad: 11.00 Aov Mn Grad: 5.00 BONNY Cont.VTI: 2.49 LVOT LVOT Pk Olegario: 1.14 LVOT Mn Olegario: 0.75 LVOT VTI: 0.29 LVOT Pk Grad: 5.00 LVOT Mn Grad: 3.00 LVOT Diam: 2.10 LVOT Area: 3.46 Diastolic Function MV Pk E: 1.02 MV Pk A: 0.88 E/A: 1.20 E'Medial: 6.42 E/E' Med: 15.90 E' Laterial: 8.92 E/E' Lat: 11.40 Tricuspid Valve RA Press: 8.00 Great Vessels Aorta Ao Root-2D: 3.40 2.0-3.7 cm Ao Asc: 3.20 2.1-3.4 cm Pulmonary Valve PV Pk Olegario: 1.02 Peak PV Grad: 4.00 Updated in Other Vendor System with Status of Final Lopez Ray MD electronically signed on 06/13/2025 8:20:26 PM with status of Final
[2025-06-12 07:04] VITALS: BP 116/58; PULSE 57; RESP 16; O2SAT 100
[2025-06-12 07:17] LABS: Glucose, Whole Blood 295 mg/dL (60-115)
--- NOTE | 2025-06-12 07:19 | HO.PM.IMPN ---
Subjective Subjective Date of Service: 06/12/25 Interval History: Repeating 2 sets of blood culture till bacteremia resolved Patient will continue hemodialysis per schedule TTE ID consulted Wound Care- I suspect this is likely colonization from her chronic comorbid conditions Physical Exam Exam: Exam: General: AOx3, morbid obesity Resp: CTA bilaterally, body habitus limiting CVS: S1, S2, RRR body habitus limiting GI: +BS, NT, protuberant Neuro: Limited secondary to body habitus Motor grossly intact bilaterally Psych: Anxious tangential talk Vital Signs: Vital Signs: Last Vital Signs Temp 96.9 F 06/12/25 02:50 Pulse 57 06/12/25 07:04 Resp 16 06/12/25 07:04 BP 116/58 L 06/12/25 07:04 Pulse Ox 100 06/12/25 07:04 O2 Del Method Room Air 06/12/25 07:04 BMI result Body Mass Index 53.0 Objective Data Active Medications Acetaminophen (Acetaminophen 325 Mg Tablet) 650 mg PO Q6H PRN PRN Reason: Pain (Scale Score 4-6) Acetaminophen (Acetaminophen 325 Mg Tablet) 650 mg PO Q6H PRN PRN Reason: Pain, Mild 1-3,fever,headache Albuterol/Ipratropium (Albuterol/Iprat 2.5/0.5mg 3 Ml Ampul.Neb) 3 ml INHALE Q4H PRN PRN Reason: Shortness of Breath/Wheezing Calcium Carbonate (Calcium Carbonate 750 Mg Tab.Chew) 750 mg PO Q4H PRN PRN Reason: Heartburn Dextrose (Dextrose 50 % 25 Gm/50 Ml Syringe) 25 gm IVPUSH Q15M PRN; Protocol PRN Reason: per Hypoglycemia Standing Ord. Gabapentin (Gabapentin 100 Mg Capsule) 100 mg PO BID [facility] Last Admin: 06/11/25 19:47 Dose: 100 mg Documented By: PASCALE Glucose (Glucose Gel 15 Gm Gel..Gram.) 15 gm PO Q15M PRN; Protocol PRN Reason: per Hypoglycemia Standing Ord. Vancomycin HCl 500 mg/ Sodium (Chloride) 110 mls @ 110 mls/hr IV Q24H [facility] Insulin Glargine (Insulin Glargine,Hum.Rec.Anlog 100 Unit/Ml 10 Ml Vial) 20 unit SUBCUT BEDTIME [facility] Last Admin: 06/11/25 21:38 Dose: 20 unit Documented By: PASCALE Insulin Human Lispro (Insulin Lispro 100 Unit/Ml 3 Ml Vial) 0 - 10 unit SUBCUT QIDACHS [facility]; Protocol Last Admin: 06/11/25 21:39 Dose: 8 unit Documented By: PASCALE Lidocaine HCl (Lidocaine Hcl 1 % Mpf 2 Ml Vial) 0.5 ml SUBCUT MOWEFR@1645 [facility] Last Admin: 06/11/25 16:57 Dose: Not Given Documented By: LISA Non-Admin Reason: Dialysis medication Magnesium Hydroxide (Milk Of Magnesia 30 Ml Oral.Susp) 30 ml PO DAILY PRN PRN Reason: Constipation Melatonin (Melatonin 3 Mg Tablet) 6 mg PO BEDTIME PRN PRN Reason: Insomnia Meropenem (Meropenem 1 Gm Vial) 1 gm IVPUSH Q24H [facility] Last Admin: 06/11/25 18:41 Dose: 1 gm Documented By: LISA Ondansetron HCl (Ondansetron Hcl 4 Mg/2 Ml Vial) 4 mg IVPUSH Q8H PRN PRN Reason: Nausea and Vomiting Last Admin: 06/11/25 04:46 Dose: 4 mg Documented By: BREANN Pantoprazole Sodium (Pantoprazole Sodium 20 Mg Tablet.) 20 mg PO DAILY [facility] Last Admin: 06/11/25 08:30 Dose: 20 mg Documented By: RAISSA Pharmacy Consult (Consult Rx Vancomycin Dosing) 1 each MISCELLANE DAILY PRN PRN Reason: Consult order Polyethylene Glycol (Polyethylene Glycol 3350 17 Gm Powd.Pack) 17 gm PO DAILY PRN PRN Reason: Constipation Senna (Sennosides 8.6 Mg Tablet) 17.2 mg PO BEDTIME [facility] Last Admin: 06/11/25 19:47 Dose: 17.2 mg Documented By: PASCALE Sodium Chloride (0.9 % Sodium Chloride Flush 3 Ml Syringe) 3 ml IVFLUSH QSHIFT [facility] Last Admin: 06/11/25 19:47 Dose: 3 ml Documented By: PASCALE Labs 06/12/25 05:16 06/12/25 05:16 Labs: Laboratory Results - last 24 hr 06/11/25 06/11/25 06/11/25 07:51 16:26 20:20 MCV MCH MCHC RDW Plt Count MPV Immature Gran % (Auto) Neut % (Auto) Lymph % (Auto) [place] % (Auto) Eos % (Auto) Baso % (Auto) Lymph # (Auto) [place] # (Auto) Eos # (Auto) Baso # (Auto) Abs Immat Gran (auto) Absolute Neuts (auto) Absolute Nucleated RBC Nucleated RBC % (auto) PT INR Anion Gap Estim Creat Clear Calc Estimated GFR POC Glucose 180 H 141 H 342 H Random Glucose Calcium Magnesium Total Bilirubin AST ALT Alkaline Phosphatase Total Protein Albumin 06/12/25 06/12/25 05:16 07:06 MCV 100.8 H MCH 32.3 MCHC 32.0 RDW 13.4 Plt Count 208 MPV 10.3 Immature Gran % (Auto) 0.7 H Neut % (Auto) 82.4 H Lymph % (Auto) 6.8 L [place] % (Auto) 7.3 Eos % (Auto) 2.2 Baso % (Auto) 0.6 Lymph # (Auto) 0.6 L [place] # (Auto) 0.7 Eos # (Auto) 0.2 Baso # (Auto) 0.1 Abs Immat Gran (auto) 0.07 H Absolute Neuts (auto) 7.7 Absolute Nucleated RBC 0.000 Nucleated RBC % (auto) 0.0 PT 11.0 INR 1.0 Anion Gap 14 Estim Creat Clear Calc 24.7 Estimated GFR 14 POC Glucose 295 H Random Glucose 334 H Calcium 8.0 L Magnesium 1.7 Total Bilirubin 0.4 AST 17 ALT 8 Alkaline Phosphatase 109 Total Protein 5.7 L Albumin 3.0 L Microbiology Microbiology Results: Microbiology 06/10/25 18:48 Blood Culture - Preliminary Blood - Venous Prelim: GPC Gram Stain only 06/10/25 18:47 Blood Culture - Preliminary Blood - Venous Prelim: GPC Gram Stain only 06/10/25 Unknown Urine Culture - Preliminary Urine clean catch - Clean Catch Midstream Gram negative osvaldo Assessment and Plan (1) T2DM (type 2 diabetes mellitus): Status: Acute Plan 64-year-old female PMHx of morbid obesity BMI (64.6), DM, HTN, bed bound at baseline, needs assistance with ADLs, ESRD on HD - - last dialysis was and was feeling nauseous. Infectious workup revealed high-grade MRSA bacteremia. Patient is undergoing treatment for the same. High-grade MRSA bacteremia Repeat 2 sets of blood cultures TTE ID consult Wound Care-likely patient is colonized with MRSA and hence likely this is the source-we are unable to check her skin given morbid obesity -Wound Care requested For now we will continue vancomycin and meropenem End-stage renal disease Continue with hemodialysis ([facility] [place]) Wednesday-per schedule Once patient has resolved medical conditions she will likely go home with services Nausea-chronic resolved Patient appears to have better control of her nausea and she is eating a whole meal breakfast hence encouraged her to use the same at home Severe uncontrolled type 2 diabetes secondary to excess intake of calories BMI 53.1 severe morbid obesity Insulin is being adjusted to maintain euglycemia Weight loss recommended Hypertension-Amlodipine Chronic pain due to diabetic neuropathy- Continue gabapentin DVT prophylaxis with heparin subQ Full code reason for continued hospitalization: MRSA bacteremia and significant workup still pending. Patient high-risk of decompensation without IV antibiotic This note is constructed using voice recognition software. While every effort has been made to ensure accuracy, cut off sawyer errors may have been included. Quality Stroke Does the patient have a stroke diagnosis?: No Reason for No Anti-thrombotic by Day Two: Drug declined by patient VTE Prior VTE?: No VTE Risk Level:: Medical - moderate - high VTE Device Contraindication: N/A - Device Ordered VTE Drug Contraindication: N/A - Med Ordered
[2025-06-12] MEDS: 0.9 % Sodium Chloride Flush 3 ML SYRINGE IVFLUSH ×3 (07:33→21:23)
[2025-06-12 11:52] LABS: Glucose, Whole Blood 208 mg/dL (60-115)
--- NOTE | 2025-06-12 15:00 | HO.WOUND ---
Wound Consult: Initial 64yr old female admitted to [facility] on 06/11/25- See progress notes and H&P for detailed history. Wound consult placed for buttocks. Patient agreeable to assessment and photo documentation. Patient reports at times having open areas to the bases of folds in abdomen and groin, reports history of abscess -like lesions that come and go to groin/buttocks and mimi-area. all areas at this time are intact, noted to have irregular and track like scar tissue present. recommend barrier cream for moisture barrier. Buttocks Etiology: Hyperpigmentation/ mild MASD Wound Bed: intact, moist, pink, hyperpigmentation Drainage / Odor: none Mimi wound: ? No Induration, Fluctuance or Warmth noted Pain: none Goals of Treatment: ? barrier cream for moisture barrier Recommendations: 1. Turn and Reposition every 2 hours and as needed for patient comfort. Use pillows or wedges to support off loading positions. 2. Off Load all bony prominences with use of pillows and heel boots if needed. Apply Preventative foams where needed. 3. Monitor for incontinence and moisture control, use barrier creams when needed for prevention and treatment. 4. Provide adequate and supplemental nutrition. 5. Order or Continue low air loss mattress. 6. When applicable maintain blood glucose levels per Providers order. Buttocks/perineum/groin: Off Load Pressure with Q2 hr turns and use of pillows - Cleanse with PH balance spray or wipes, pat dry. ?Apply thin layer of barrier cream to affected area. Apply twice daily and Reapply thin layer PRN after each episode of incontinence. Re-consult wound care Nurse for wound deterioration or wound changes.
[2025-06-12 15:38] VITALS: BP 147/66; PULSE 65; RESP 16; TEMP 37.4; O2SAT 97
[2025-06-12 16:18] LABS: Glucose, Whole Blood 250 mg/dL (60-115)
[2025-06-12 19:16] VITALS: BP 134/63; PULSE 65; RESP 18; TEMP 36.9; O2SAT 99
[2025-06-12 20:15] LABS: Glucose, Whole Blood 293 mg/dL (60-115)
[2025-06-12] MEDS: Insulin Glargine,Hum.rec.anlog 100 UNIT/ML 10 ML VIAL 20 UNIT SUBCUT (21:21)
--- NOTE | 2025-06-13 00:06 | W.PM.IDCN ---
History of Present Illness Data of Consult Service Date: 06/12/25 Requesting physician: Alicia Cotter Primary Care Provider: Alexi Lynne MD HPI Reason for consult: UTI,coagulase negative bacteremia She presents with nausea and vomiting and left flank pain since WednesdayJune 05. She has no fever or chills or dysuria. She takes HD. She has Klebsiella in urine and coagulase negative staph and second staph culture pending. Review of Systems Review of Systems: Yes all other systems are reviewed and are negative [facility] Past Medical History Medical History HTN (hypertension) HLD (hyperlipidemia) Frequent UTI Anemia Acute on chronic diastolic (congestive) heart failure Type 2 diabetes mellitus with obesity Clostridium difficile diarrhea Morbid obesity Detrusor dysfunction Bladder outlet obstruction Esophagitis CKD (chronic kidney disease) stage 4, GFR 15-29 ml/min Hypothyroidism IBS (irritable bowel syndrome) Family History Family History Father Diabetes Mother Diabetes Hypertension Breast cancer Family/Other Breast cancer Uterine cancer Family history: reviewed and not pertinent Surgical History Surgical History History of tubal ligation Social History Social History Household Members: None Housing: Apartment Do you presently have visiting nurse or other home services: Yes (HOSPICE/HOME HEALTH AIDE services) Alcohol intake: never Comment: bedbound at baseline Patient Tobacco Use Status: Former Tobacco user e-Cigarette/Vaping Use: Never Used Second Hand Smoke Exposure: No Currently Displaying Signs/Symptoms of Drug Intoxication Withdrawal: No Advance Directives: Yes Advance Directives on File: Yes Advance Directives Date on File: 10/09/20 Do you have a plan to hurt others: No Plan Nutrition Risks: No Nutritional Risk Patient : No service: No Current occupational status: disabled Cognitive needs: No Hearing needs: No Vision needs: Yes Meds Allergies Allergy/AdvReac Type Severity Reaction Status Date / Time metformin (METFORMIN) Allergy Severe HIVES Verified 06/10/25 13:35 heparin Allergy Intermediate Itching Verified 06/11/25 03:56 canagliflozin (From Invokana) Allergy Hives Verified 06/10/25 13:35 Active Medications: Current Medications Acetaminophen (Acetaminophen 325 Mg Tablet) 650 mg PO Q6H PRN PRN Reason: Pain (Scale Score 4-6) Acetaminophen (Acetaminophen 325 Mg Tablet) 650 mg PO Q6H PRN PRN Reason: Pain, Mild 1-3,fever,headache Albuterol/Ipratropium (Albuterol/Iprat 2.5/0.5mg 3 Ml Ampul.Neb) 3 ml INHALE Q4H PRN PRN Reason: Shortness of Breath/Wheezing Calcium Carbonate (Calcium Carbonate 750 Mg Tab.Chew) 750 mg PO Q4H PRN PRN Reason: Heartburn Dextrose (Dextrose 50 % 25 Gm/50 Ml Syringe) 25 gm IVPUSH Q15M PRN; Protocol PRN Reason: per Hypoglycemia Standing Ord. Gabapentin (Gabapentin 100 Mg Capsule) 100 mg PO BID [facility] Last Admin: 06/12/25 21:12 Dose: 100 mg Glucose (Glucose Gel 15 Gm Gel..Gram.) 15 gm PO Q15M PRN; Protocol PRN Reason: per Hypoglycemia Standing Ord. Vancomycin HCl 500 mg/ Sodium (Chloride) 110 mls @ 110 mls/hr IV Q24H [facility] Insulin Glargine (Insulin Glargine,Hum.Rec.Anlog 100 Unit/Ml 10 Ml Vial) 20 unit SUBCUT BEDTIME [facility] Last Admin: 06/12/25 21:21 Dose: 20 unit Insulin Human Lispro (Insulin Lispro 100 Unit/Ml 3 Ml Vial) 0 - 10 unit SUBCUT QIDACHS [facility]; Protocol Last Admin: 06/12/25 21:21 Dose: 6 unit Lidocaine HCl (Lidocaine Hcl 1 % Mpf 2 Ml Vial) 0.5 ml SUBCUT MOWEFR@1645 [facility] Last Admin: 06/11/25 16:57 Dose: Not Given Magnesium Hydroxide (Milk Of Magnesia 30 Ml Oral.Susp) 30 ml PO DAILY PRN PRN Reason: Constipation Melatonin (Melatonin 3 Mg Tablet) 6 mg PO BEDTIME PRN PRN Reason: Insomnia Meropenem (Meropenem 1 Gm Vial) 1 gm IVPUSH Q24H [facility] Last Admin: 06/12/25 17:10 Dose: 1 gm Ondansetron HCl (Ondansetron Hcl 4 Mg/2 Ml Vial) 4 mg IVPUSH Q8H PRN PRN Reason: Nausea and Vomiting Last Admin: 06/11/25 04:46 Dose: 4 mg Pantoprazole Sodium (Pantoprazole Sodium 20 Mg Tablet.) 20 mg PO DAILY [facility] Last Admin: 06/12/25 07:33 Dose: 20 mg Pharmacy Consult (Consult Rx Vancomycin Dosing) 1 each MISCELLANE DAILY PRN PRN Reason: Consult order Polyethylene Glycol (Polyethylene Glycol 3350 17 Gm Powd.Pack) 17 gm PO DAILY PRN PRN Reason: Constipation Last Admin: 06/12/25 21:19 Dose: 17 gm Senna (Sennosides 8.6 Mg Tablet) 17.2 mg PO BEDTIME [facility] Last Admin: 06/12/25 21:12 Dose: 17.2 mg Sodium Chloride (0.9 % Sodium Chloride Flush 3 Ml Syringe) 3 ml IVFLUSH QSHIFT [facility] Last Admin: 06/12/25 21:23 Dose: 3 ml Home Medications ?Medication ?Instructions ?Recorded ?Confirmed ?Last Taken ?Type nystatin 100,000 unit/gram topical 1 appl topical TID 07/11/22 06/11/25 Unknown History cream Triamcinolone 0.1% Ointment 1 appl topical TID PRN diabetic 05/13/25 06/11/25 Unknown History psoriasis epoetin silverio 20,000 unit/mL 20,000 unit subcut TH 05/13/25 06/11/25 Unknown History injection solution Physical Exam Vital Signs: Vital Signs: Last Vital Signs Temp 98.5 F 06/12/25 19:16 Pulse 65 06/12/25 19:16 Resp 18 06/12/25 19:16 BP 134/63 06/12/25 19:16 Pulse Ox 99 06/12/25 19:16 O2 Del Method Room Air 06/12/25 19:16 BMI result Body Mass Index 53.0 Const: General: cooperative HEENT: Head: Yes normal to inspection Face and sinus: Yes normal facial exam Mouth: Normal oral and palatal mucosa present Teeth and gingiva: dentition normal Eyes: General: appearance normal, both eyes and all related structures Pupils: Equal, round and reactive pupils present Resp: Effort & Inspection: normal respiratory effort Cardio: Rate: regular rate Rhythm: regular rhythm GI: Palpation (GI): Soft to palpation and nontender : General: Yes no CVA tenderness Back/Spine/Pelvis: Back: no CVA tenderness Skin: General skin exam: no rashes or lesions noted Neuro: General: moves all extremities Cranial nerves: Yes Equal, round and reactive pupils present Extrem: Other: left arm fistula working well Psych: Appearance: grossly normal Results Labs 06/12/25 05:16 06/12/25 05:16 Labs: Short CBC 06/12/25 Range/Units 05:16 WBC 9.4 (4.8-10.8) X10*3/uL Hgb 8.2 L (12.0-16.0) g/dl Hct 25.6 L (37.0-47.0) % Plt Count 208 (160-400) X10*3/uL BMP 06/12/25 05:16 Sodium 137 Potassium 4.2 Chloride 100 Carbon Dioxide 27 BUN 35 H Creatinine 3.37 H Calcium 8.0 L Liver Function 06/12/25 Range/Units 05:16 Total Bilirubin 0.4 (0.0-1.0) mg/dL AST 17 (5-31) U/L ALT 8 (0-31) U/L Alkaline Phosphatase 109 (39-117) U/L Albumin 3.0 L (3.5-5.0) g/dL Microbiology Microbiology Results: Microbiology 06/11/25 18:22 Blood - Venous Blood Culture - Preliminary No growth after 24 hours. 06/11/25 18:22 Blood - Venous Blood Culture - Preliminary No growth after 24 hours. 06/11/25 18:22 Blood - Venous Blood Culture - Preliminary No growth after 24 hours. 06/10/25 18:48 Blood - Venous Blood Culture - Preliminary Gram positive cocci 06/10/25 18:47 Blood - Venous Blood Culture - Preliminary Coag negative Staphylococcus 06/10/25 Unknown Urine clean catch - Clean Catch Midstream Urine Culture - Final Klebsiella pneumoniae Assessment and Plan (1) End-stage renal disease (ESRD): Status: Acute (2) Dialysis patient: Status: Acute (3) Acute UTI: Status: Acute Plan Watch for Cdiff on antibiotics ,may want to prophylax if develops loose stools. Ceftriaxone after HD for a week cover urinary infection. Stop Vancomycin if only coagulase negative staph found.
[2025-06-13 03:26] VITALS: BP 131/63; PULSE 60; RESP 20; TEMP 36.4; O2SAT 98
[2025-06-13 06:08] LABS: MANUAL DIFF FLAG NO
[2025-06-13 06:18] LABS: Hematocrit 25.1 % (37.0-47.0); Hemoglobin 8.2 g/dl (12.0-16.0); Imm Gran Abs Auto 0.10 X10*3/uL (0.00-0.03); Imm Gran Pct Auto 1.2 % (0.0-0.4); Lymphocytes Absolute Auto 1.2 X10*3/uL (1.2-4.9); Mean Corpuscular HGB Conc 32.7 g/dl (31.0-35.0); Mean Corpuscular Hemoglobin 32.5 pg (27.0-33.0); Mean Corpuscular Volume 99.6 fL (80.0-98.0); NRBC Abs Auto 0.020 X10*3/uL (0.0-0.012); NRBC Pct Auto 0.2 /100WBC (0.0-0.2); Platelet Count 188 X10*3/uL (160-400); Red Blood Count 2.52 X10*6/uL (4.20-5.50); White Blood Count 8.6 X10*3/uL (4.8-10.8)
[2025-06-13 06:29] LABS: INTERNATIONAL NORM RATIO 1.0 (0.9-1.1); Prothrombin Time 11.0 SEC (10.9-12.4)
[2025-06-13 06:32] LABS: Alanine Aminotransferase 11 U/L (0-31); Albumin Level 3.1 g/dL (3.5-5.0); Alkaline Phosphatase 105 U/L (39-117); Anion Gap 14 (12-20); Aspartate Amino Transferase 15 U/L (5-31); Blood Urea Nitrogen 51 mg/dL (9-16); Calcium 8.1 mg/dL (8.4-10.2); Carbon Dioxide 28 mmol/L (22-29); Chloride 98 mmol/L (96-108); Creatinine Clr Calc Pharmacy 19.6; Estimated Glomerular Filt Rate 10; Potassium 4.3 mmol/L (3.3-5.1); Sodium 136 mmol/L (135-145); Total Protein 5.7 g/dL (6.5-8.0)
--- NOTE | 2025-06-13 07:13 | P.PNIM_ITS ---
Subjective Subjective Date of Service: 06/13/25 Interval History: Patient's blood culture coag-negative staph. Klebsiella UTI noted in urine , we will await culture and sensitivity Review of Systems Review of Systems: Yes all other systems are reviewed and are negative Physical Exam 2 Exam: Exam: General: AOx3, morbid obesity Resp: CTA bilaterally, body habitus limiting CVS: S1, S2, RRR body habitus limiting GI: +BS, NT, protuberant Neuro: Limited secondary to body habitus Motor grossly intact bilaterally Psych: Anxious tangential talk Vital Signs: Vital Signs: Last Vital Signs Temp 97.6 F 06/13/25 03:26 Pulse 60 06/13/25 03:26 Resp 20 06/13/25 03:26 BP 131/63 06/13/25 03:26 Pulse Ox 98 06/13/25 03:26 O2 Del Method Room Air 06/13/25 03:26 BMI result Body Mass Index 53.0 Objective Data Active Medications Acetaminophen (Acetaminophen 325 Mg Tablet) 650 mg PO Q6H PRN PRN Reason: Pain (Scale Score 4-6) Acetaminophen (Acetaminophen 325 Mg Tablet) 650 mg PO Q6H PRN PRN Reason: Pain, Mild 1-3,fever,headache Albuterol/Ipratropium (Albuterol/Iprat 2.5/0.5mg 3 Ml Ampul.Neb) 3 ml INHALE Q4H PRN PRN Reason: Shortness of Breath/Wheezing Calcium Carbonate (Calcium Carbonate 750 Mg Tab.Chew) 750 mg PO Q4H PRN PRN Reason: Heartburn Ceftriaxone Sodium (Ceftriaxone Sodium 1 Gm Vial) 1 gm IVPUSH Q24H [facility] Last Admin: 06/13/25 01:14 Dose: 1 gm Documented By: LAUREN Dextrose (Dextrose 50 % 25 Gm/50 Ml Syringe) 25 gm IVPUSH Q15M PRN; Protocol PRN Reason: per Hypoglycemia Standing Ord. Gabapentin (Gabapentin 100 Mg Capsule) 100 mg PO BID [facility] Last Admin: 06/12/25 21:12 Dose: 100 mg Documented By: LAUREN Glucose (Glucose Gel 15 Gm Gel..Gram.) 15 gm PO Q15M PRN; Protocol PRN Reason: per Hypoglycemia Standing Ord. Vancomycin HCl 500 mg/ Sodium (Chloride) 110 mls @ 110 mls/hr IV Q24H [facility] Insulin Glargine (Insulin Glargine,Hum.Rec.Anlog 100 Unit/Ml 10 Ml Vial) 20 unit SUBCUT BEDTIME [facility] Last Admin: 06/12/25 21:21 Dose: 20 unit Documented By: LAUREN Insulin Human Lispro (Insulin Lispro 100 Unit/Ml 3 Ml Vial) 0 - 10 unit SUBCUT QIDACHS [facility]; Protocol Last Admin: 06/12/25 21:21 Dose: 6 unit Documented By: LAUREN Lidocaine HCl (Lidocaine Hcl 1 % Mpf 2 Ml Vial) 0.5 ml SUBCUT MOWEFR@1645 [facility] Last Admin: 06/11/25 16:57 Dose: Not Given Documented By: LISA Non-Admin Reason: Dialysis medication Magnesium Hydroxide (Milk Of Magnesia 30 Ml Oral.Susp) 30 ml PO DAILY PRN PRN Reason: Constipation Melatonin (Melatonin 3 Mg Tablet) 6 mg PO BEDTIME PRN PRN Reason: Insomnia Ondansetron HCl (Ondansetron Hcl 4 Mg/2 Ml Vial) 4 mg IVPUSH Q8H PRN PRN Reason: Nausea and Vomiting Last Admin: 06/11/25 04:46 Dose: 4 mg Documented By: BREANN Pantoprazole Sodium (Pantoprazole Sodium 20 Mg Tablet.) 20 mg PO DAILY [facility] Last Admin: 06/12/25 07:33 Dose: 20 mg Documented By: JULIAN Pharmacy Consult (Consult Rx Vancomycin Dosing) 1 each MISCELLANE DAILY PRN PRN Reason: Consult order Polyethylene Glycol (Polyethylene Glycol 3350 17 Gm Powd.Pack) 17 gm PO DAILY PRN PRN Reason: Constipation Last Admin: 06/12/25 21:19 Dose: 17 gm Documented By: LAUREN Senna (Sennosides 8.6 Mg Tablet) 17.2 mg PO BEDTIME [facility] Last Admin: 06/12/25 21:12 Dose: 17.2 mg Documented By: LAUREN Sodium Chloride (0.9 % Sodium Chloride Flush 3 Ml Syringe) 3 ml IVFLUSH QSHIFT [facility] Last Admin: 06/12/25 21:23 Dose: 3 ml Documented By: LAUREN Labs 06/13/25 05:26 06/13/25 05:26 Labs: Laboratory Results - last 24 hr 06/12/25 06/12/25 06/12/25 07:06 11:48 16:04 MCV MCH MCHC RDW Plt Count MPV Immature Gran % (Auto) Neut % (Auto) Lymph % (Auto) [place] % (Auto) Eos % (Auto) Baso % (Auto) Lymph # (Auto) [place] # (Auto) Eos # (Auto) Baso # (Auto) Abs Immat Gran (auto) Absolute Neuts (auto) Absolute Nucleated RBC Nucleated RBC % (auto) PT INR Anion Gap Estim Creat Clear Calc Estimated GFR POC Glucose 295 H 208 H Random Glucose Calcium Total Bilirubin AST ALT Alkaline Phosphatase Total Protein Albumin Random Vancomycin 19.4 06/12/25 06/12/25 06/13/25 16:14 20:10 05:26 MCV 99.6 H MCH 32.5 MCHC 32.7 RDW 13.6 Plt Count 188 MPV 10.1 Immature Gran % (Auto) 1.2 H Neut % (Auto) 67.4 Lymph % (Auto) 14.1 L [place] % (Auto) 10.5 Eos % (Auto) 6.0 H Baso % (Auto) 0.8 Lymph # (Auto) 1.2 [place] # (Auto) 0.9 Eos # (Auto) 0.5 H Baso # (Auto) 0.1 Abs Immat Gran (auto) 0.10 H Absolute Neuts (auto) 5.8 Absolute Nucleated RBC 0.020 H Nucleated RBC % (auto) 0.2 PT 11.0 INR 1.0 Anion Gap 14 Estim Creat Clear Calc 19.6 Estimated GFR 10 POC Glucose 250 H 293 H Random Glucose 266 H Calcium 8.1 L Total Bilirubin 0.3 AST 15 ALT 11 Alkaline Phosphatase 105 Total Protein 5.7 L Albumin 3.1 L Random Vancomycin Microbiology Microbiology Results: Microbiology 06/11/25 18:22 Blood Culture - Preliminary Blood - Venous No growth after 24 hours. 06/11/25 18:22 Blood Culture - Preliminary Blood - Venous No growth after 24 hours. Blood Culture - Preliminary No growth after 24 hours. 06/10/25 18:48 Blood Culture - Preliminary Blood - Venous Gram positive cocci 06/10/25 18:47 Blood Culture - Preliminary Blood - Venous Coag negative Staphylococcus 06/10/25 Unknown Urine Culture - Final Urine clean catch - Clean Catch Midstream Klebsiella pneumoniae Assessment and Plan (1) T2DM (type 2 diabetes mellitus): Status: Acute Plan 64-year-old female PMHx of morbid obesity BMI (64.6), DM, HTN, bed bound at baseline, needs assistance with ADLs, ESRD on HD last dialysis was and was feeling nauseous. Infectious workup revealed high-grade coagulase negative staph and Klebsiella UTI. Patient is undergoing treatment for the same. High-grade coagulase negative staph bacteremia, , which is often resistant to penicillin group and we will continue vancomycin we will need to currently await clearance based on the labs drawn on 06/11/2025 For now we will continue vancomycin and meropenem, we will only deescalate based on clearance of bacteremia and high risk of resistance. wound care-likely patient is colonized with MRSA and hence likely this is the source-we are unable to check her skin given morbid obesity -Wound Care requested End-stage renal disease Continue with hemodialysis ([facility]) Wednesday-per schedule Once patient has resolved medical conditions she will likely go home with services Nausea-chronic resolved Patient appears to have better control of her nausea and she is eating a whole meal breakfast hence encouraged her to use the same at home Severe uncontrolled type 2 diabetes secondary to excess intake of calories BMI 53.1 severe morbid obesity Insulin is being adjusted to maintain euglycemia Weight loss recommended Hypertension-Amlodipine Chronic pain due to diabetic neuropathy- Continue gabapentin DVT prophylaxis with heparin subQ Full code reason for continued hospitalization: MRSA bacteremia and significant workup still pending. Patient high-risk of decompensation without IV antibiotic This note is constructed using voice recognition software. While every effort has been made to ensure accuracy, medical transcriptionist errors may have been included. Quality Stroke Does the patient have a stroke diagnosis?: No Reason for No Anti-thrombotic by Day Two: Drug declined by patient VTE Prior VTE?: No VTE Risk Level:: Medical - moderate - high VTE Device Contraindication: N/A - Device Ordered VTE Drug Contraindication: N/A - Med Ordered
[2025-06-13 07:46] LABS: Glucose, Whole Blood 239 mg/dL (60-115)
[2025-06-13 07:50] VITALS: BP 155/67; PULSE 56; RESP 16; TEMP 36.2; O2SAT 100
[2025-06-13] MEDS: 0.9 % Sodium Chloride Flush 3 ML SYRINGE IVFLUSH ×3 (08:19→20:10)
[2025-06-13 13:41] LABS: Glucose, Whole Blood 198 mg/dL (60-115)
[2025-06-13 13:45] VITALS: BP 149/65; PULSE 65; RESP 16; TEMP 36.1; O2SAT 98
--- NOTE | 2025-06-13 15:45 | MHC.CM.PN ---
PER ROUNDS PT WILL BE HERE OVER THE WEEKEND PT WILLNOT NEED IV ANTIBIOTICS THEREFORE DC PLAN IS HOME WITH RESUMPTION OF SERVICES
[2025-06-13 16:00] VITALS: BP 172/74; PULSE 63; RESP 19; TEMP 37.6; O2SAT 98
[2025-06-13 16:45] LABS: Glucose, Whole Blood 245 mg/dL (60-115)
[2025-06-13 20:00] VITALS: BP 160/60; PULSE 74; RESP 20; TEMP 37.1; O2SAT 95
[2025-06-13] MEDS: Insulin Glargine,Hum.rec.anlog 100 UNIT/ML 10 ML VIAL 20 UNIT SUBCUT (20:10)
[2025-06-13 20:54] LABS: Glucose, Whole Blood 273 mg/dL (60-115)
[2025-06-14 03:38] VITALS: BP 169/83; PULSE 65; RESP 18; TEMP 36.3; O2SAT 97
[2025-06-14 06:01] LABS: MANUAL DIFF FLAG NO
[2025-06-14 06:06] LABS: Hematocrit 25.1 % (37.0-47.0); Hemoglobin 8.0 g/dl (12.0-16.0); Imm Gran Abs Auto 0.08 X10*3/uL (0.00-0.03); Imm Gran Pct Auto 0.9 % (0.0-0.4); Lymphocytes Absolute Auto 1.4 X10*3/uL (1.2-4.9); Mean Corpuscular HGB Conc 31.9 g/dl (31.0-35.0); Mean Corpuscular Hemoglobin 31.9 pg (27.0-33.0); Mean Corpuscular Volume 100.0 fL (80.0-98.0); NRBC Abs Auto 0.000 X10*3/uL (0.0-0.012); NRBC Pct Auto 0.0 /100WBC (0.0-0.2); Platelet Count 184 X10*3/uL (160-400); Red Blood Count 2.51 X10*6/uL (4.20-5.50); White Blood Count 8.8 X10*3/uL (4.8-10.8)
[2025-06-14 06:13] LABS: INTERNATIONAL NORM RATIO 1.0 (0.9-1.1); Prothrombin Time 11.2 SEC (10.9-12.4)
[2025-06-14 06:28] LABS: Alanine Aminotransferase 8 U/L (0-31); Albumin Level 3.0 g/dL (3.5-5.0); Alkaline Phosphatase 100 U/L (39-117); Anion Gap 14 (12-20); Aspartate Amino Transferase 17 U/L (5-31); Blood Urea Nitrogen 34 mg/dL (9-16); Calcium 8.3 mg/dL (8.4-10.2); Carbon Dioxide 27 mmol/L (22-29); Chloride 101 mmol/L (96-108); Creatinine Clr Calc Pharmacy 25.7; Estimated Glomerular Filt Rate 14; Potassium 4.1 mmol/L (3.3-5.1); Sodium 138 mmol/L (135-145); Total Protein 5.6 g/dL (6.5-8.0)
[2025-06-14 06:56] VITALS: BP 138/60; PULSE 58; RESP 17; TEMP 36.7; O2SAT 98
[2025-06-14 07:08] LABS: Glucose, Whole Blood 204 mg/dL (60-115)
--- NOTE | 2025-06-14 07:10 | HO.PM.IMPN ---
Subjective Subjective Date of Service: 06/14/25 Physical Exam Vital Signs: Vital Signs: Last Vital Signs Temp 98.1 F 06/14/25 06:56 Pulse 58 06/14/25 06:56 Resp 17 06/14/25 06:56 BP 138/60 06/14/25 06:56 Pulse Ox 98 06/14/25 06:56 O2 Del Method Room Air 06/14/25 06:56 BMI result Body Mass Index 53.0 Objective Data Active Medications Acetaminophen (Acetaminophen 325 Mg Tablet) 650 mg PO Q6H PRN PRN Reason: Pain (Scale Score 4-6) Acetaminophen (Acetaminophen 325 Mg Tablet) 650 mg PO Q6H PRN PRN Reason: Pain, Mild 1-3,fever,headache Albuterol/Ipratropium (Albuterol/Iprat 2.5/0.5mg 3 Ml Ampul.Neb) 3 ml INHALE Q4H PRN PRN Reason: Shortness of Breath/Wheezing Calcium Carbonate (Calcium Carbonate 750 Mg Tab.Chew) 750 mg PO Q4H PRN PRN Reason: Heartburn Ceftriaxone Sodium (Ceftriaxone Sodium 1 Gm Vial) 1 gm IVPUSH Q24H [facility] Last Admin: 06/14/25 02:08 Dose: 1 gm Documented By: JHOANA Dextrose (Dextrose 50 % 25 Gm/50 Ml Syringe) 25 gm IVPUSH Q15M PRN; Protocol PRN Reason: per Hypoglycemia Standing Ord. Gabapentin (Gabapentin 100 Mg Capsule) 100 mg PO BID [facility] Last Admin: 06/13/25 20:10 Dose: 100 mg Documented By: JHOANA Glucose (Glucose Gel 15 Gm Gel..Gram.) 15 gm PO Q15M PRN; Protocol PRN Reason: per Hypoglycemia Standing Ord. Vancomycin HCl 500 mg/ Sodium (Chloride) 110 mls @ 110 mls/hr IV Q24H [facility] Insulin Glargine (Insulin Glargine,Hum.Rec.Anlog 100 Unit/Ml 10 Ml Vial) 20 unit SUBCUT BEDTIME [facility] Last Admin: 06/13/25 20:10 Dose: 20 unit Documented By: JHOANA Insulin Human Lispro (Insulin Lispro 100 Unit/Ml 3 Ml Vial) 0 - 10 unit SUBCUT QIDACHS [facility]; Protocol Last Admin: 06/13/25 20:15 Dose: 6 unit Documented By: JHOANA Lidocaine HCl (Lidocaine Hcl 1 % Mpf 2 Ml Vial) 0.5 ml SUBCUT MOWEFR@2351 [facility] Last Admin: 06/13/25 16:53 Dose: Not Given Documented By: REGINE Non-Admin Reason: Patient Refused Magnesium Hydroxide (Milk Of Magnesia 30 Ml Oral.Susp) 30 ml PO DAILY PRN PRN Reason: Constipation Melatonin (Melatonin 3 Mg Tablet) 6 mg PO BEDTIME PRN PRN Reason: Insomnia Ondansetron HCl (Ondansetron Hcl 4 Mg/2 Ml Vial) 4 mg IVPUSH Q8H PRN PRN Reason: Nausea and Vomiting Last Admin: 06/11/25 04:46 Dose: 4 mg Documented By: BREANN Pantoprazole Sodium (Pantoprazole Sodium 20 Mg Tablet.) 20 mg PO DAILY [facility] Last Admin: 06/13/25 08:18 Dose: 20 mg Documented By: REGINE Pharmacy Consult (Consult Rx Vancomycin Dosing) 1 each MISCELLANE DAILY PRN PRN Reason: Consult order Polyethylene Glycol (Polyethylene Glycol 3350 17 Gm Powd.Pack) 17 gm PO DAILY PRN PRN Reason: Constipation Last Admin: 06/12/25 21:19 Dose: 17 gm Documented By: LAUREN Senna (Sennosides 8.6 Mg Tablet) 17.2 mg PO BEDTIME [facility] Last Admin: 06/13/25 20:10 Dose: 17.2 mg Documented By: JHOANA Sodium Chloride (0.9 % Sodium Chloride Flush 3 Ml Syringe) 3 ml IVFLUSH QSHIFT [facility] Last Admin: 06/13/25 20:10 Dose: 3 ml Documented By: JHOANA Labs 06/14/25 05:39 06/14/25 05:39 Labs: Laboratory Results - last 24 hr 06/13/25 06/13/25 06/13/25 07:33 13:34 16:37 MCV MCH MCHC RDW Plt Count MPV Immature Gran % (Auto) Neut % (Auto) Lymph % (Auto) [place] % (Auto) Eos % (Auto) Baso % (Auto) Lymph # (Auto) [place] # (Auto) Eos # (Auto) Baso # (Auto) Abs Immat Gran (auto) Absolute Neuts (auto) Absolute Nucleated RBC Nucleated RBC % (auto) PT INR Anion Gap Estim Creat Clear Calc Estimated GFR POC Glucose 239 H 198 H 245 H Random Glucose Calcium Total Bilirubin AST ALT Alkaline Phosphatase Total Protein Albumin Random Vancomycin 06/13/25 06/13/25 06/14/25 18:17 20:11 05:39 MCV 100.0 H MCH 31.9 MCHC 31.9 RDW 13.9 Plt Count 184 MPV 10.0 Immature Gran % (Auto) 0.9 H Neut % (Auto) 67.3 Lymph % (Auto) 15.9 L [place] % (Auto) 10.0 Eos % (Auto) 5.0 H Baso % (Auto) 0.9 Lymph # (Auto) 1.4 [place] # (Auto) 0.9 Eos # (Auto) 0.4 Baso # (Auto) 0.1 Abs Immat Gran (auto) 0.08 H Absolute Neuts (auto) 6.0 Absolute Nucleated RBC 0.000 Nucleated RBC % (auto) 0.0 PT 11.2 INR 1.0 Anion Gap 14 Estim Creat Clear Calc 25.7 Estimated GFR 14 POC Glucose 273 H Random Glucose 254 H Calcium 8.3 L Total Bilirubin 0.3 AST 17 ALT 8 Alkaline Phosphatase 100 Total Protein 5.6 L Albumin 3.0 L Random Vancomycin 13.0 L 06/14/25 06:58 MCV MCH MCHC RDW Plt Count MPV Immature Gran % (Auto) Neut % (Auto) Lymph % (Auto) [place] % (Auto) Eos % (Auto) Baso % (Auto) Lymph # (Auto) [place] # (Auto) Eos # (Auto) Baso # (Auto) Abs Immat Gran (auto) Absolute Neuts (auto) Absolute Nucleated RBC Nucleated RBC % (auto) PT INR Anion Gap Estim Creat Clear Calc Estimated GFR POC Glucose 204 H Random Glucose Calcium Total Bilirubin AST ALT Alkaline Phosphatase Total Protein Albumin Random Vancomycin Microbiology Microbiology Results: Microbiology 06/11/25 18:22 Blood Culture - Preliminary Blood - Venous No growth after 48 hours. Blood Culture - Preliminary No growth after 48 hours. 06/11/25 18:22 Blood Culture - Preliminary Blood - Venous No growth after 48 hours. 06/10/25 18:48 Blood Culture - Preliminary Blood - Venous Coag negative Staphylococcus 06/10/25 18:47 Blood Culture - Preliminary Blood - Venous Coag negative Staphylococcus Quality Stroke Does the patient have a stroke diagnosis?: No Reason for No Anti-thrombotic by Day Two: Drug declined by patient VTE Prior VTE?: No VTE Risk Level:: Medical - moderate - high VTE Device Contraindication: N/A - Device Ordered VTE Drug Contraindication: N/A - Med Ordered
[2025-06-14] MEDS: 0.9 % Sodium Chloride Flush 3 ML SYRINGE IVFLUSH ×2 (07:33→17:18)
--- NOTE | 2025-06-14 10:29 | P.CDIM_ITS ---
PROVIDER RESPONSE TEXT: To clarify, the appropriate diagnosis supported by the clinical indicators: Diabetic neuropathy: polyneuropathy QUERY TEXT: PHYSICIAN'S DOCUMENTATION REQUEST Date of Query: 06/14/2025 07:46 AM EDT Patient Name: Isabel Carcamo Admit Date: 06/12/2025 Dear Alicia Cotter MD, A review of the medical record indicates additional documentation may be needed. Please review below and update the documentation accordingly. Clinical Indicators: Progress note 06/13/25 - Chronic pain due to diabetic neuropathy. Continue Gabapentin Please provide further specificity to the documented Diabetic neuropathy if known: Diabetic neuropathy Peripheral, polyneuropathy, mononeuropathy, autonomic etc. Other specified Other (explain) Clinically unable to determine (explain) Thank you, Zuri Barbosa, CCS, CDIS Use of terms such as suspected, likely, concern for, or probable (associated with a specific diagnosis that is being evaluated, monitored, or treated as if it exists) are acceptable and can be coded in the inpatient setting, when documented at the time of discharge. Please use your independent medical judgment in providing your response. THIS QUERY IS PART OF THE PERMANENT MEDICAL RECORD
[2025-06-14 11:07] LABS: Glucose, Whole Blood 235 mg/dL (60-115)
--- NOTE | 2025-06-14 11:47 | PM.DS ---
DS: Providers Provider Date of Service: 06/14/25 Date of admission: 06/12/25 08:47 Date of discharge: 06/14/25 Primary care physician: Alexi Lynne MD Consults: 06/10/25 18:22 Consult to Case Management Stat Comment: 06/11/25 03:25 Consult to Case Management Routine Comment: plan was not for admit but for CM, pt needs AM lis 06/11/25 03:26 Consult to Nephrology Routine Consulting Provider: [facility] Reason for consultation: needs AM dialysis was originally PT/CM, admitted due to ESRD needs Has provider been notified: No 06/11/25 04:19 Consult to Case Management Routine Comment: plan per ED for DC plan 06/11/25 17:43 Consult to Wound Care Routine Reason for consultation: Wound care, bedbound at baseline, decub ulcers 06/11/25 18:03 Consult to Infectious Diseases Routine [place]ing [place] [facility] [place] [facility] Reason for consultation: MRSA bacteremia possibly , prior ESBL complicate recurrent UTI 06/14/25 11:45 Consult to Vascular Surgery Routine Consulting Provider: [facility] [place] [facility] Reason for consultation: HD access DS: Diagnosis Discharge Diagnosis (1) T2DM (type 2 diabetes mellitus): Status: Acute DS: Summary Hospital Course Time spent discussing smoking cessation with patient: more than 10 minutes Time Attestation Discharge Coordination Time (in mins): 35 Quality: Safe Use of Opioids Does Pt have an Active Cancer Diagnosis on the Problem List?: No Quality: Stroke Does the patient have a stroke diagnosis?: No Physical Exam Vital Signs: Vital Signs: Last Vital Signs Temp 98.1 F 06/14/25 06:56 Pulse 58 06/14/25 06:56 Resp 17 06/14/25 06:56 BP 138/60 06/14/25 06:56 Pulse Ox 98 06/14/25 06:56 O2 Del Method Room Air 06/14/25 06:56 BMI result Body Mass Index 53.0 DS: Data Data Completed and Pending Completed studies during hospitalization [Text1]: Procedures Excision of Duodenum, Via Natural or Artificial Opening Endoscopic, Diagnostic (07/31/20) Excision of Stomach, Pylorus, Via Natural or Artificial Opening Endoscopic, Diagnostic (07/31/20) Performance of Urinary Filtration, Intermittent, Less than 6 Hours Per Day (05/14/25) Labs on day of discharge: Laboratory Results - last 24 hr 06/13/25 06/13/25 06/13/25 13:34 16:37 18:17 WBC RBC Hgb Hct MCV MCH MCHC RDW Plt Count MPV Immature Gran % (Auto) Neut % (Auto) Lymph % (Auto) [place] % (Auto) Eos % (Auto) Baso % (Auto) Lymph # (Auto) [place] # (Auto) Eos # (Auto) Baso # (Auto) Abs Immat Gran (auto) Absolute Neuts (auto) Absolute Nucleated RBC Nucleated RBC % (auto) PT INR Sodium Potassium Chloride Carbon Dioxide Anion Gap BUN Creatinine Estim Creat Clear Calc Estimated GFR POC Glucose 198 H 245 H Random Glucose Calcium Total Bilirubin AST ALT Alkaline Phosphatase Total Protein Albumin Random Vancomycin 13.0 L 06/13/25 06/14/25 06/14/25 20:11 05:39 06:58 WBC 8.8 RBC 2.51 L Hgb 8.0 L Hct 25.1 L MCV 100.0 H MCH 31.9 MCHC 31.9 RDW 13.9 Plt Count 184 MPV 10.0 Immature Gran % (Auto) 0.9 H Neut % (Auto) 67.3 Lymph % (Auto) 15.9 L [place] % (Auto) 10.0 Eos % (Auto) 5.0 H Baso % (Auto) 0.9 Lymph # (Auto) 1.4 [place] # (Auto) 0.9 Eos # (Auto) 0.4 Baso # (Auto) 0.1 Abs Immat Gran (auto) 0.08 H Absolute Neuts (auto) 6.0 Absolute Nucleated RBC 0.000 Nucleated RBC % (auto) 0.0 PT 11.2 INR 1.0 Sodium 138 Potassium 4.1 Chloride 101 Carbon Dioxide 27 Anion Gap 14 BUN 34 H Creatinine 3.23 H Estim Creat Clear Calc 25.7 Estimated GFR 14 POC Glucose 273 H 204 H Random Glucose 254 H Calcium 8.3 L Total Bilirubin 0.3 AST 17 ALT 8 Alkaline Phosphatase 100 Total Protein 5.6 L Albumin 3.0 L Random Vancomycin 06/14/25 11:03 WBC RBC Hgb Hct MCV MCH MCHC RDW Plt Count MPV Immature Gran % (Auto) Neut % (Auto) Lymph % (Auto) [place] % (Auto) Eos % (Auto) Baso % (Auto) Lymph # (Auto) [place] # (Auto) Eos # (Auto) Baso # (Auto) Abs Immat Gran (auto) Absolute Neuts (auto) Absolute Nucleated RBC Nucleated RBC % (auto) PT INR Sodium Potassium Chloride Carbon Dioxide Anion Gap BUN Creatinine Estim Creat Clear Calc Estimated GFR POC Glucose 235 H Random Glucose Calcium Total Bilirubin AST ALT Alkaline Phosphatase Total Protein Albumin Random Vancomycin Preliminary micro results at discharge 06/11/25 18:22 Blood Culture - Preliminary Blood - Venous No growth after 48 hours. Blood Culture - Preliminary No growth after 48 hours. 06/11/25 18:22 Blood Culture - Preliminary Blood - Venous No growth after 48 hours. Discharge Plan Discharge Anticipated Discharge Date/Time: 06/14/25 11:35 Patient Disposition: Home Health Service Discharge Diagnosis: Nausea 2/2 generalized fatigue, coag-negative bacteremia deemed a contaminant, ID consulted Referrals: Alexi Lynne MD [Primary Care Provider, Internal Medicine] - 1 Week Ashleigh Oliva MD [Physician, Infectious Disease] - 1 Week Maximus Ash MD [Physician, Nephrology] - 1 Week Referral Note: Patient is a hemodialysis patient Wednesday Along with ID guidance, we deem the blood cultures likely a contaminant,, although can not completely rule out. Patient has instructions to return if the blood cultures come back positive. Patient agreeable with the plan Discharge Medications: Continued (DME) Accu-Chek Berna Plus test strp Strip See Rx Instructions .Route Qty: 300 8RF Rx Instructions: to check blood sugars five times a day (DME) blood sugar diagnostic Strip See Rx Instructions .ROUTE .MEDSUPPLY Qty: 200 8RF Rx Instructions: FREESTYLE TEST STRIPS (DME) hospital bed Kit See Rx Instructions .Route Qty: 1 0RF Rx Instructions: As directed (DME) pen needle, diabetic 32 gauge x 5/32 needle See Rx Instructions .Route Qty: 100 0RF Rx Instructions: use TID (DME) insulin syringe-needle U-100 [BD Insulin Syringe Ultra-Fine] 1 mL 30 gauge x 1/2 syringe See Rx Instructions .ROUTE .MEDSUPPLY Qty: 100 3RF Rx Instructions: TID nystatin 100,000 unit/gram Cream 1 appl TOPICAL TID Protocol: Apply to: Apply to: UNDER BREASTS, BELLY FOLDS epoetin silverio 20,000 unit/mL Solution 20,000 unit SUBCUT TH Triamcinolone 0.1% Ointment ointment 1 appl topical TID PRN (Reason: diabetic psoriasis) sennosides [senna] 8.6 mg Tablet 17.2 mg PO BEDTIME 30 Days Qty: 30 3RF acetaminophen 325 mg Tablet 650 mg PO Q6H PRN (Reason: Pain (Scale Score 4-6)) 30 Days Qty: 3 3RF polyethylene glycol 3350 17 gram Powder In Packet 17 g PO DAILY 30 Days Qty: 30 3RF pantoprazole 20 mg Tablet,Delayed Release (Dr/Ec) 20 mg PO DAILY 30 Days Qty: 30 3RF ropinirole 0.25 mg tablet 0.25 mg PO BEDTIME 30 Days Qty: 30 2RF amlodipine 10 mg tablet 10 mg PO DAILY 30 Days Qty: 30 3RF bisacodyl 10 mg Suppository 10 mg NM DAILY PRN (Reason: Constipation) 30 Days Qty: 30 3RF sodium phosphates 19-7 gram/118 mL Enema 118 ml NM DAILY 30 Days Qty: 30 3RF Rx Instructions: Give if Dulcolax suppository is ineffective docusate sodium 100 mg Capsule 100 mg PO DAILY 30 Days Qty: 30 3RF insulin lispro [Humalog U-100 Insulin] 100 unit/mL solution 10 - 18 unit subcut TIDWM 30 Days Qty: 10 3RF Rx Instructions: Patient uses a sliding scale glucagon 1 mg Recon Soln 1 mg IM Q20M PRN (Reason: low BG) 30 Days Qty: 30 3RF Rx Instructions: until target blood sugar attained ondansetron 4 mg tablet,disintegrating 4 mg translingual TIDAC PRN (Reason: nausea) 30 Days Qty: 12 3RF insulin glargine [Lantus Solostar U-100 Insulin] 100 unit/mL (3 mL) insulin pen 20 unit subcut BEDTIME 30 Days Qty: 3 3RF ferrous fumarate 325 mg (106 mg iron) Tablet 325 mg PO DAILY 30 Days Qty: 30 3RF albuterol sulfate 90 mcg/actuation HFA aerosol inhaler 2 puff inhalation Q4H PRN (Reason: bronchospasm) 30 Days Qty: 8.5 5RF oxybutynin chloride 15 mg tablet extended release 24hr 15 mg PO DAILY 30 Days Qty: 30 3RF hydralazine 25 mg Tablet 25 mg PO TID 30 Days Qty: 30 3RF gabapentin 100 mg capsule 100 mg PO BID 30 Days Qty: 60 0RF Discharge Orders: Discharge Order (Routine); Ordered 06/14/25 Ordered By: Alicia Cotter Diet: renal diet - low K , phos Activity on Discharge: As tolerated Stand Alone Forms: Patient Portal Discharge page Print Language: Occitan Care Plan Goals: Patient had concerns about her transportation issues for primary care-hospice case manager working on it Patient we will continue her dialysis per schedule We will likely believe the coag-negative staph is a contaminant We consulted ID-with Dr. Pj farris, we believe that it is likely a contaminant as the blood cultures drawn into separate arms on 06/11/2025 has not resulted as positive yet (day 4 of 5) Patient received hemodialysis per her schedule on Wednesday and Wednesday and we will get her dialysis tomorrow per her schedule Follow-up with your primary care-hospice case manager is arranging for transport Follow-up with your regular nephrology group [facility] for hemodialysis Health Concerns: See above Plan of Treatment: See above Assessment: See above
--- NOTE | 2025-06-14 12:04 | P.DS_ITS ---
DS: Providers Provider Date of Service: 06/14/25 Date of admission: 06/12/25 08:47 Date of discharge: 06/14/25 Primary care physician: Alexi Lynne MD Consults: 06/10/25 18:22 Consult to Case Management Stat Comment: 06/11/25 03:25 Consult to Case Management Routine Comment: plan was not for admit but for CM, pt needs AM lis 06/11/25 03:26 Consult to Nephrology Routine Consulting Provider: [facility] Reason for consultation: needs AM dialysis was originally PT/CM, admitted due to ESRD needs Has provider been notified: No 06/11/25 04:19 Consult to Case Management Routine Comment: plan per ED for DC plan 06/11/25 17:43 Consult to Wound Care Routine Reason for consultation: Wound care, bedbound at baseline, decub ulcers 06/11/25 18:03 Consult to Infectious Diseases Routine Consulting Provider[place] [facility] [place] [facility] Reason for consultation: MRSA bacteremia possibly , prior ESBL complicate recurrent UTI 06/14/25 11:45 Consult to Vascular Surgery Routine Consulting Provider: [facility] [place] [facility] Reason for consultation: HD access DS: Diagnosis Discharge Diagnosis (1) T2DM (type 2 diabetes mellitus): Status: Acute DS: Summary Hospital Course Hospital Course: Nausea , genralized decontioning - self resolved Patient appears to have better control of her nausea and she is eating a whole meal breakfast hence encouraged her to use the same at home 64-year-old female PMHx of morbid obesity BMI (64.6), DM, HTN, bed bound at baseline, needs assistance with ADLs, ESRD on HD last dialysis was and was feeling nauseous. High-grade coagulase negative staph bacteremia,deemed a contaminant as repeat BC X2 drawn on 06/11/25 came back -ve (day4/5) and she was HDS thr whole hospitalization. Vascular surgery was also consulted - also confer that it is likely contaminant and OP HD abx Klebsiella UTI - Ceftriaxone after HD X1 week , ID input thankful , Vascular surgery was also consulted - also confer that it is likely contaminant and OP HD abx (Have requested our Nephrology collegues to help with the same). End-stage renal disease- Continue with hemodialysis ([facility]) Wednesday F riday-per schedule She received HD per her annita on M/W per her annita (no notes) while in pt. Severe uncontrolled type 2 diabetes secondary to excess intake of calories BMI 53.1 severe morbid obesity Insulin is being adjusted to maintain euglycemia - no changes Weight loss recommended Hypertension-Amlodipine Chronic pain due to diabetic neuropathy- Continue gabapentin DVT prophylaxis with heparin subQ Full code This note is constructed using voice recognition software. While every effort has been made to ensure accuracy, sand filler errors may have been included. Time spent discussing smoking cessation with patient: more than 10 minutes Status at Discharge Functional status at discharge: bed bound Overall status at discharge: patient is back to baseline Time Attestation Discharge Coordination Time (in mins): 35 Quality: Safe Use of Opioids Does Pt have an Active Cancer Diagnosis on the Problem List?: No Quality: Stroke Does the patient have a stroke diagnosis?: No Physical Exam Vital Signs: Vital Signs: Last Vital Signs Temp 98.1 F 06/14/25 06:56 Pulse 58 06/14/25 06:56 Resp 17 06/14/25 06:56 BP 138/60 06/14/25 06:56 Pulse Ox 98 06/14/25 06:56 O2 Del Method Room Air 06/14/25 06:56 BMI result Body Mass Index 53.0 DS: Data Data Completed and Pending Completed studies during hospitalization [Text1]: Procedures Excision of Duodenum, Via Natural or Artificial Opening Endoscopic, Diagnostic (07/31/20) Excision of Stomach, Pylorus, Via Natural or Artificial Opening Endoscopic, Diagnostic (07/31/20) Performance of Urinary Filtration, Intermittent, Less than 6 Hours Per Day (05/14/25) Labs on day of discharge: Laboratory Results - last 24 hr 06/13/25 06/13/25 06/13/25 13:34 16:37 18:17 WBC RBC Hgb Hct MCV MCH MCHC RDW Plt Count MPV Immature Gran % (Auto) Neut % (Auto) Lymph % (Auto) [place] % (Auto) Eos % (Auto) Baso % (Auto) Lymph # (Auto) [place] # (Auto) Eos # (Auto) Baso # (Auto) Abs Immat Gran (auto) Absolute Neuts (auto) Absolute Nucleated RBC Nucleated RBC % (auto) PT INR Sodium Potassium Chloride Carbon Dioxide Anion Gap BUN Creatinine Estim Creat Clear Calc Estimated GFR POC Glucose 198 H 245 H Random Glucose Calcium Total Bilirubin AST ALT Alkaline Phosphatase Total Protein Albumin Random Vancomycin 13.0 L 06/13/25 06/14/25 06/14/25 20:11 05:39 06:58 WBC 8.8 RBC 2.51 L Hgb 8.0 L Hct 25.1 L MCV 100.0 H MCH 31.9 MCHC 31.9 RDW 13.9 Plt Count 184 MPV 10.0 Immature Gran % (Auto) 0.9 H Neut % (Auto) 67.3 Lymph % (Auto) 15.9 L [place] % (Auto) 10.0 Eos % (Auto) 5.0 H Baso % (Auto) 0.9 Lymph # (Auto) 1.4 [place] # (Auto) 0.9 Eos # (Auto) 0.4 Baso # (Auto) 0.1 Abs Immat Gran (auto) 0.08 H Absolute Neuts (auto) 6.0 Absolute Nucleated RBC 0.000 Nucleated RBC % (auto) 0.0 PT 11.2 INR 1.0 Sodium 138 Potassium 4.1 Chloride 101 Carbon Dioxide 27 Anion Gap 14 BUN 34 H Creatinine 3.23 H Estim Creat Clear Calc 25.7 Estimated GFR 14 POC Glucose 273 H 204 H Random Glucose 254 H Calcium 8.3 L Total Bilirubin 0.3 AST 17 ALT 8 Alkaline Phosphatase 100 Total Protein 5.6 L Albumin 3.0 L Random Vancomycin 06/14/25 11:03 WBC RBC Hgb Hct MCV MCH MCHC RDW Plt Count MPV Immature Gran % (Auto) Neut % (Auto) Lymph % (Auto) [place] % (Auto) Eos % (Auto) Baso % (Auto) Lymph # (Auto) [place] # (Auto) Eos # (Auto) Baso # (Auto) Abs Immat Gran (auto) Absolute Neuts (auto) Absolute Nucleated RBC Nucleated RBC % (auto) PT INR Sodium Potassium Chloride Carbon Dioxide Anion Gap BUN Creatinine Estim Creat Clear Calc Estimated GFR POC Glucose 235 H Random Glucose Calcium Total Bilirubin AST ALT Alkaline Phosphatase Total Protein Albumin Random Vancomycin Preliminary micro results at discharge 06/11/25 18:22 Blood Culture - Preliminary Blood - Venous No growth after 48 hours. Blood Culture - Preliminary No growth after 48 hours. 06/11/25 18:22 Blood Culture - Preliminary Blood - Venous No growth after 48 hours. Discharge Plan Discharge Anticipated Discharge Date/Time: 06/14/25 11:35 Patient Disposition: Home Health Service Discharge Diagnosis: Nausea 2/2 generalized fatigue, coag-negative bacteremia deemed a contaminant, ID consulted Referrals: Alexi Lynne MD [Primary Care Provider, Internal Medicine] - 1 Week Ashleigh Oliva MD [Physician, Infectious Disease] - 1 Week Maximus Ash MD [Physician, Nephrology] - 1 Week Referral Note: Patient is a hemodialysis patient Wednesday Along with ID guidance, we deem the blood cultures likely a contaminant,, although can not completely rule out. Patient has instructions to return if the blood cultures come back positive. Patient agreeable with the plan Discharge Medications: Continued (DME) Accu-Chek Berna Plus test strp Strip See Rx Instructions .Route Qty: 300 8RF Rx Instructions: to check blood sugars five times a day (DME) blood sugar diagnostic Strip See Rx Instructions .ROUTE .MEDSUPPLY Qty: 200 8RF Rx Instructions: FREESTYLE TEST STRIPS (DME) hospital bed Kit See Rx Instructions .Route Qty: 1 0RF Rx Instructions: As directed (DME) pen needle, diabetic 32 gauge x 5/32 needle See Rx Instructions .Route Qty: 100 0RF Rx Instructions: use TID (DME) insulin syringe-needle U-100 [BD Insulin Syringe Ultra-Fine] 1 mL 30 g auge x 1/2 syringe See Rx Instructions .ROUTE .MEDSUPPLY Qty: 100 3RF Rx Instructions: TID nystatin 100,000 unit/gram Cream 1 appl TOPICAL TID Protocol: Apply to: Apply to: UNDER BREASTS, BELLY FOLDS epoetin silverio 20,000 unit/mL Solution 20,000 unit SUBCUT TH Triamcinolone 0.1% Ointment ointment 1 appl topical TID PRN (Reason: diabetic psoriasis) sennosides [senna] 8.6 mg Tablet 17.2 mg PO BEDTIME 30 Days Qty: 30 3RF acetaminophen 325 mg Tablet 650 mg PO Q6H PRN (Reason: Pain (Scale Score 4-6)) 30 Days Qty: 3 3RF polyethylene glycol 3350 17 gram Powder In Packet 17 g PO DAILY 30 Days Qty: 30 3RF pantoprazole 20 mg Tablet,Delayed Release (Dr/Ec) 20 mg PO DAILY 30 Days Qty: 30 3RF ropinirole 0.25 mg tablet 0.25 mg PO BEDTIME 30 Days Qty: 30 2RF amlodipine 10 mg tablet 10 mg PO DAILY 30 Days Qty: 30 3RF bisacodyl 10 mg Suppository 10 mg [place] DAILY PRN (Reason: Constipation) 30 Days Qty: 30 3RF sodium phosphates 19-7 gram/118 mL Enema 118 ml [place] DAILY 30 Days Qty: 30 3RF Rx Instructions: Give if Dulcolax suppository is ineffective docusate sodium 100 mg Capsule 100 mg PO DAILY 30 Days Qty: 30 3RF insulin lispro [Humalog U-100 Insulin] 100 unit/mL solution 10 - 18 unit subcut TIDWM 30 Days Qty: 10 3RF Rx Instructions: Patient uses a sliding scale glucagon 1 mg Recon Soln 1 mg IM Q20M PRN (Reason: low BG) 30 Days Qty: 30 3RF Rx Instructions: until target blood sugar attained ondansetron 4 mg tablet,disintegrating 4 mg translingual TIDAC PRN (Reason: nausea) 30 Days Qty: 12 3RF insulin glargine [Lantus Solostar U-100 Insulin] 100 unit/mL (3 mL) insulin pen 20 unit subcut BEDTIME 30 Days Qty: 3 3RF ferrous fumarate 325 mg (106 mg iron) Tablet 325 mg PO DAILY 30 Days Qty: 30 3RF albuterol sulfate 90 mcg/actuation HFA aerosol inhaler 2 puff inhalation Q4H PRN (Reason: bronchospasm) 30 Days Qty: 8.5 5RF oxybutynin chloride 15 mg tablet extended release 24hr 15 mg PO DAILY 30 Days Qty: 30 3RF hydralazine 25 mg Tablet 25 mg PO TID 30 Days Qty: 30 3RF gabapentin 100 mg capsule 100 mg PO BID 30 Days Qty: 60 0RF Discharge Orders: Discharge Order (Routine); Ordered 06/14/25 Ordered By: Alicia Cotter Diet: renal diet - low K , phos Activity on Discharge: As tolerated Stand Alone Forms: Patient Portal Discharge page Print Language: Faroese Care Plan Goals: Patient had concerns about her transportation issues for primary care-family service caseworker working on it Patient we will continue her dialysis per schedule We will likely believe the coag-negative staph is a contaminant We consulted ID-with Dr. Pj farris, we believe that it is likely a contaminant as the blood cultures drawn into separate arms on 06/11/2025 has not resulted as positive yet (day 4 of ) Patient received hemodialysis per her schedule on Wednesday and Wednesday and we will get her dialysis tomorrow per her schedule Follow-up with your primary care-family service caseworker is arranging for transport Follow-up with your regular nephrology group [facility] for hemodialysis Health Concerns: See above Plan of Treatment: See above Assessment: See above
--- NOTE | 2025-06-14 13:23 | P.CONGS_ITS ---
History of Present Illness Consult details Consult date: 06/14/25 Reason for consult: other Narrative: Complex 64-year-old female with end-stage renal disease who is dialysis dependent presents for evaluation regarding her left upper extremity AV graft. It appears that during COVID and post COVID she had moved up to the [facility] and has had most of her work done there. She was admitted on the 2nd of this month for shortness of breath. She had be in in heart failure in addition with the UTI and had received Lasix in antibiotic therapy. During her hospital stay there appears to be concern of her left upper extremity dialysis access. She now presents to us for vascular evaluation. Of note upon discussion with her it appears that she had 6 previous tunneled dialysis catheters. She is a poorly-controlled diabetic. She has acute on chronic diastolic heart failure. She is now for evaluation of her left upper extremity. Review of Systems 2 Review of Systems: Yes all other systems are reviewed and are negative Constitutional: Constitutional: Reports no additional constitutional complaints ENT: Reports Normal hearing present Cardiovascular: Cardiovascular: Denies chest pain, Denies chest pain at rest, Denies chest pain with activity and Denies pedal edema Respiratory: Respiratory: Denies cough Gastrointestinal: Gastrointestinal: Denies abdominal pain Musculoskeletal: Musculoskeletal: Denies abnormal gait, Denies muscle cramps and Denies radiating pain into limb Integumentary/Breasts: Skin/Breast: Denies skin ulcer and Denies wounds Neurologic: Reports Normal hearing present and Denies abnormal gait Psychiatric: Psychiatric: Reports no additional psychiatric complaints PMFSH Past Medical History Medical History HTN (hypertension) HLD (hyperlipidemia) Frequent UTI Anemia Acute on chronic diastolic (congestive) heart failure Type 2 diabetes mellitus with obesity Clostridium difficile diarrhea Morbid obesity Detrusor dysfunction Bladder outlet obstruction Esophagitis CKD (chronic kidney disease) stage 4, GFR 15-29 ml/min Hypothyroidism IBS (irritable bowel syndrome) Family History Family History Father Diabetes Mother Diabetes Hypertension Breast cancer Family/Other Breast cancer Uterine cancer Family history: reviewed and not pertinent Surgical History Surgical History History of tubal ligation Social History Social History Household Members: None Housing: Apartment Do you presently have visiting nurse or other home services: Yes (SHELTER DIRECTOR services) Alcohol intake: never Comment: bedbound at baseline Patient Tobacco Use Status: Former Tobacco user e-Cigarette/Vaping Use: Never Used Second Hand Smoke Exposure: No Currently Displaying Signs/Symptoms of Drug Intoxication Withdrawal: No Advance Directives: Yes Advance Directives on File: Yes Advance Directives Date on File: 10/09/20 Do you have a plan to hurt others: No Plan Nutrition Risks: No Nutritional Risk Patient : No service: No Current occupational status: disabled Cognitive needs: No Hearing needs: No Vision needs: Yes Meds Allergies Allergy/AdvReac Type Severity Reaction Status Date / Time metformin (METFORMIN) Allergy Severe HIVES Verified 06/10/25 13:35 heparin Allergy Intermediate Itching Verified 06/11/25 03:56 canagliflozin (From Invokana) Allergy Hives Verified 06/10/25 13:35 Active Medications: Current Medications Acetaminophen (Acetaminophen 325 Mg Tablet) 650 mg PO Q6H PRN PRN Reason: Pain (Scale Score 4-6) Acetaminophen (Acetaminophen 325 Mg Tablet) 650 mg PO Q6H PRN PRN Reason: Pain, Mild 1-3,fever,headache Albuterol/Ipratropium (Albuterol/Iprat 2.5/0.5mg 3 Ml Ampul.Neb) 3 ml INHALE Q4H PRN PRN Reason: Shortness of Breath/Wheezing Calcium Carbonate (Calcium Carbonate 750 Mg Tab.Chew) 750 mg PO Q4H PRN PRN Reason: Heartburn Ceftriaxone Sodium (Ceftriaxone Sodium 1 Gm Vial) 1 gm IVPUSH Q24H [facility] Last Admin: 06/14/25 02:08 Dose: 1 gm Dextrose (Dextrose 50 % 25 Gm/50 Ml Syringe) 25 gm IVPUSH Q15M PRN; Protocol PRN Reason: per Hypoglycemia Standing Ord. Gabapentin (Gabapentin 100 Mg Capsule) 100 mg PO BID [facility] Last Admin: 06/14/25 07:32 Dose: 100 mg Glucose (Glucose Gel 15 Gm Gel..Gram.) 15 gm PO Q15M PRN; Protocol PRN Reason: per Hypoglycemia Standing Ord. Vancomycin HCl 500 mg/ Sodium (Chloride) 110 mls @ 110 mls/hr IV Q24H [facility] Insulin Glargine (Insulin Glargine,Hum.Rec.Anlog 100 Unit/Ml 10 Ml Vial) 20 unit SUBCUT BEDTIME [facility] Last Admin: 06/13/25 20:10 Dose: 20 unit Insulin Human Lispro (Insulin Lispro 100 Unit/Ml 3 Ml Vial) 0 - 10 unit SUBCUT QIDACHS [facility]; Protocol Last Admin: 06/14/25 11:43 Dose: 4 unit Lidocaine HCl (Lidocaine Hcl 1 % Mpf 2 Ml Vial) 0.5 ml SUBCUT MOWEFR@1645 [facility] Last Admin: 06/13/25 16:53 Dose: Not Given Magnesium Hydroxide (Milk Of Magnesia 30 Ml Oral.Susp) 30 ml PO DAILY PRN PRN Reason: Constipation Melatonin (Melatonin 3 Mg Tablet) 6 mg PO BEDTIME PRN PRN Reason: Insomnia Ondansetron HCl (Ondansetron Hcl 4 Mg/2 Ml Vial) 4 mg IVPUSH Q8H PRN PRN Reason: Nausea and Vomiting Last Admin: 06/11/25 04:46 Dose: 4 mg Pantoprazole Sodium (Pantoprazole Sodium 20 Mg Tablet.Dr) 20 mg PO DAILY [facility] Last Admin: 06/14/25 07:32 Dose: 20 mg Pharmacy Consult (Consult Rx Vancomycin Dosing) 1 each MISCELLANE DAILY PRN PRN Reason: Consult order Polyethylene Glycol (Polyethylene Glycol 3350 17 Gm Powd.Pack) 17 gm PO DAILY PRN PRN Reason: Constipation Last Admin: 06/12/25 21:19 Dose: 17 gm Senna (Sennosides 8.6 Mg Tablet) 17.2 mg PO BEDTIME [facility] Last Admin: 06/13/25 20:10 Dose: 17.2 mg Sodium Chloride (0.9 % Sodium Chloride Flush 3 Ml Syringe) 3 ml IVFLUSH QSHIFT [facility] Last Admin: 06/14/25 07:33 Dose: 3 ml Home Medications ?Medication ?Instructions ?Recorded ?Confirmed ?Last Taken ?Type nystatin 100,000 unit/gram topical 1 appl topical TID 07/11/22 06/11/25 Unknown History cream Triamcinolone 0.1% Ointment 1 appl topical TID PRN lis betic 05/13/25 06/11/25 Unknown History psoriasis epoetin silverio 20,000 unit/mL 20,000 unit subcut 04/3006/11/25 Unknown History injection solution Physical Exam 2 Vital Signs: Vital Signs: Last Vital Signs Temp 98.1 F 06/14/25 06:56 Pulse 58 06/14/25 06:56 Resp 17 06/14/25 06:56 BP 138/60 06/14/25 06:56 Pulse Ox 98 06/14/25 06:56 O2 Del Method Room Air 06/14/25 06:56 BMI result Body Mass Index 53.0 Const: General: cooperative, healthy appearing and comfortable O rientation/consciousness: oriented to person, oriented to place and oriented to time HEENT: Head: Yes normal to inspection Neck: Neck: Yes normal visual inspection Carotids: no bruits Chest: Chest palpation & inspection: normal inspection of the chest Resp: Effort & Inspection: normal respiratory effort and able to speak in complete sentences Auscultation: clear to auscultation bilaterally, no crackles, no rales, no rhonchi and no wheezes Cardio: Rate: regular rate Rhythm: regular rhythm Heart sounds: S1 normal heart sound present and S2 normal heart sound present Bruits: no carotid bruits Peripheral pulses: Peripheral pulses 2+ throughout GI: Inspection: Yes normal to inspection Skin: Wounds: no wounds Hair: normal Neuro: General: oriented to person, oriented to place and oriented to time Cranial nerves: Yes CN's II-XII intact bilaterally and Yes Normal hearing present Cognition (Neuro): normal cognition Motor exam (neuro): 5/5 motor strength present throughout Extrem: Other: Left upper extremity appears to have a forearm loop graft. There are multiple incisions and it appears according to the patient there were multiple reintervention and endovascular interventions most recently she has had plasty of her outflow venous tract. No erythema or collection noted. General: No clubbing, No cyanosis and Yes edema Psych: Appearance: grossly normal Mental Status: mental status grossly normal Speech and movement: Normal speech and movement present Results Labs 06/14/25 05:39 06/14/25 05:39 Labs: Abnormal lab results 06/13/25 06/13/25 06/13/25 Range/Units 13:34 16:37 18:17 RBC (4.20-5.50) X10*6/uL Hgb (12.0-16.0) g/dl Hct (37.0-47.0) % MCV (80.0-98.0) fL Immature Gran % (Auto) (0.0-0.4) % Lymph % (Auto) (20-40) % Eos % (Auto) (0-4) % Abs Immat Gran (auto) (0.00-0.03) X10*3/uL BUN (9-16) mg/dL Creatinine (0.5-1.4) mg/dL POC Glucose 198 H 245 H (60-115) mg/dL Random Glucose (60-115) mg/dL Calcium (8.4-10.2) mg/dL Total Protein (6.5-8.0) g/dL Albumin (3.5-5.0) g/dL Random Vancomycin 13.0 L (15-20) mcg/mL 06/13/25 06/14/25 06/14/25 Range/Units 20:11 05:39 06:58 RBC 2.51 L (4.20-5.50) X10*6/uL Hgb 8.0 L (12.0-16.0) g/dl Hct 25.1 L (37.0-47.0) % MCV 100.0 H (80.0-98.0) fL Immature Gran % (Auto) 0.9 H (0.0-0.4) % Lymph % (Auto) 15.9 L (20-40) % Eos % (Auto) 5.0 H (0-4) % Abs Immat Gran (auto) 0.08 H (0.00-0.03) X10*3/uL BUN 34 H (9-16) mg/dL Creatinine 3.23 H (0.5-1.4) mg/dL POC Glucose 273 H 204 H (60-115) mg/dL Random Glucose 254 H (60-115) mg/dL Calcium 8.3 L (8.4-10.2) mg/dL Total Protein 5.6 L (6.5-8.0) g/dL Albumin 3.0 L (3.5-5.0) g/dL Random Vancomycin (15-20) mcg/mL 06/14/25 Range/Units 11:03 RBC (4.20-5.50) X10*6/uL Hgb (12.0-16.0) g/dl Hct (37.0-47.0) % MCV (80.0-98.0) fL Immature Gran % (Auto) (0.0-0.4) % Lymph % (Auto) (20-40) % Eos % (Auto) (0-4) % Abs Immat Gran (auto) (0.00-0.03) X10*3/uL BUN (9-16) mg/dL Creatinine (0.5-1.4) mg/dL POC Glucose 235 H (60-115) mg/dL Random Glucose (60-115) mg/dL Calcium (8.4-10.2) mg/dL Total Protein (6.5-8.0) g/dL Albumin (3.5-5.0) g/dL Random Vancomycin (15-20) mcg/mL Short CBC 06/14/25 Range/Units 05:39 WBC 8.8 (4.8-10.8) X10*3/uL Hgb 8.0 L (12.0-16.0) g/dl Hct 25.1 L (37.0-47.0) % Plt Count 184 (160-400) X10*3/uL BMP 06/14/25 05:39 Sodium 138 Potassium 4.1 Chloride 101 Carbon Dioxide 27 BUN 34 H Creatinine 3.23 H Calcium 8.3 L Liver Function 06/14/25 Range/Units 05:39 Total Bilirubin 0.3 (0.0-1.0) mg/dL AST 17 (5-31) U/L ALT 8 (0-31) U/L Alkaline Phosphatase 100 (39-117) U/L Albumin 3.0 L (3.5-5.0) g/dL Urine 06/10/25 Range/Units 15:21 Urine Color Yellow Urine Appearance Cloudy Urine pH 8.0 (5.0-9.0) Ur Specific [place] 1.010 (1.005-1.025) Urine Protein 100 (2+) H (Neg-Trace) mg/dL Urine Glucose (UA) 250 H (Negative) mg/dL All other labs normal. Assessment and Plan (1) End-stage renal disease (ESRD): Status: Acute Plan At the current time it appears that her dialysis graft is stable. It does not appear to be acute source of infection. Blood cultures from 06/11/2025 are negative. Due to her difficult access I would treat her with antibiotics as much as possible. Would return to [facility] as they have done multiple interventions before and would best no her upper extremity status. We will follow on an as-needed basis. Thank you for allowing us to assist in her care Procedures Date of Service Date of Service: 06/14/25
--- NOTE | 2025-06-14 15:15 | MHC.CM.PN ---
PT IS MEDICALLY CLEARED FOR DC, CM MET WITH PT ALONG WITH , AND RN PT IS AWARE HER TRANSPORT [facility]IA [facility] WILL RESUME TOMORROW FOR HD AT HER USUAL PLACE/TIME DCS WAS FAXED TO [facility] AT [phone] SHE REPORTS SHE MISSED HER PCP APPT THAT WAS MADE FOR HER DURING HER LAST ADMISSION, CM WILL ARRANGE A NEW ONE WELL INITIATE TRANSPORT PCP APPT MADE WITH A [facility] PROVIDER FOR 06/21/25 AT 1430 HOURS [facility] WAS CONTACTED AND TRANSPORT WAS SCHEDULED FOR PCP APPT, THEY WILL CONTACT PCP OFFICE FOR MED NEC PT REQUESTED TRANSPORT BE ARRANGED FOR 1830 HOURS SO HER DAUGHTER CAN MEET HER AT HOME WITH THE [facility] AND HELP HER GET SETTLED BLS TRANSPORT HOME WAS BOOKED WITH [facility]
[2025-06-14 16:00] VITALS: BP 152/78; PULSE 67; RESP 19; TEMP 36.3; O2SAT 98
[2025-06-14 16:41] LABS: Glucose, Whole Blood 237 mg/dL (60-115)
--- NOTE | 2025-06-14 19:31 | PM.CNNEP ---
History of Present Illness Reason for Consult Consult date: 06/14/25 Reason for consult: ESRD and HD Chief Complaint Chief complaint: Needs Dialysis in AM History of Present Illness Narrative: TIM consulted for ESDR and HD management PT was adm 10111/21 and I wastold that [facility] was taking care of PT and they wrote the HD orders. Today the Hospitalist tells me that the [facility] have not been seeing hte patient and therefore asked me to see her. In summary she is a 64 ESRD on dialysis M.W,F in [place] ( [phone]), IDDM, obesity, hypertension, anemia , UTI, hyperlipidemia, cirrhosis of the liver, neuropathy, , GERD RLS was brought in by ambulance complaining of left flank pain and epigastric pain with profound nausea but no vomiting. Hosp course signif for Staph epi bacteremia and ques contaminat or true bacteremia and cocnern for possible AVG infection and/or endocaridtiis. Seen by ID and feeling is that this blood cult was a contaminant as repeat Bld cult are negative Review of Systems Review of Systems Patient currently denies any chest pain or shortness of breath at rest. Patient is not having abdominal pain, diarrhea or constipation issues. Nausea is persistent but patient has not vomited since arrival. Patient denies any lower leg pain or difficulty walking. Yes all other systems are reviewed and are negative Constitutional: Reports no additional constitutional complaints Reports Normal hearing present Cardiovascular: Denies chest pain, Denies chest pain at rest, Denies chest pain with activity and Denies pedal edema Respiratory: Denies cough Gastrointestinal: Denies abdominal pain Musculoskeletal: Denies abnormal gait, Denies muscle cramps and Denies radiating pain into limb Skin/Breast: Denies skin ulcer and Denies wounds Reports Normal hearing present and Denies abnormal gait Psychiatric: Reports no additional psychiatric complaints PMFSH Past Medical History Medical History HTN (hypertension) HLD (hyperlipidemia) Frequent UTI Anemia Acute on chronic diastolic (congestive) heart failure Type 2 diabetes mellitus with obesity Clostridium difficile diarrhea Morbid obesity Detrusor dysfunction Bladder outlet obstruction Esophagitis CKD (chronic kidney disease) stage 4, GFR 15-29 ml/min Hypothyroidism IBS (irritable bowel syndrome) Family History Family History Father Diabetes Mother Diabetes Hypertension Breast cancer Family/Other Breast cancer Uterine cancer Family history: reviewed and not pertinent Surgical History Surgical History History of tubal ligation Social History Social History Household Members: None Housing: Apartment Do you presently have visiting nurse or other home services: Yes (HOME INSPECTOR services) Alcohol intake: never Comment: bedbound at baseline Patient Tobacco Use Status: Former Tobacco user e-Cigarette/Vaping Use: Never Used Second Hand Smoke Exposure: No Advance Directives Date on File: 10/09/20 service: No Current occupational status: disabled Cognitive needs: No Hearing needs: No Vision needs: Yes Meds Allergies Allergy/AdvReac Type Severity Reaction Status Date / Time metformin (METFORMIN) Allergy Severe HIVES Verified 06/10/25 13:35 heparin Allergy Intermediate Itching Verified 06/11/25 03:56 canagliflozin (From Invokana) Allergy Hives Verified 06/10/25 13:35 Active Medications: Current Medications Acetaminophen (Acetaminophen 325 Mg Tablet) 650 mg PO Q6H PRN PRN Reason: Pain (Scale Score 4-6) Acetaminophen (Acetaminophen 325 Mg Tablet) 650 mg PO Q6H PRN PRN Reason: Pain, Mild 1-3,fever,headache Albuterol/Ipratropium (Albuterol/Iprat 2.5/0.5mg 3 Ml Ampul.Neb) 3 ml INHALE Q4H PRN PRN Reason: Shortness of Breath/Wheezing Calcium Carbonate (Calcium Carbonate 750 Mg Tab.Chew) 750 mg PO Q4H PRN PRN Reason: Heartburn Ceftriaxone Sodium (Ceftriaxone Sodium 1 Gm Vial) 1 gm IVPUSH Q24H [facility] Last Admin: 06/14/25 02:08 Dose: 1 gm Dextrose (Dextrose 50 % 25 Gm/50 Ml Syringe) 25 gm IVPUSH Q15M PRN; Protocol PRN Reason: per Hypoglycemia Standing Ord. Gabapentin (Gabapentin 100 Mg Capsule) 100 mg PO BID [facility] Last Admin: 06/14/25 07:32 Dose: 100 mg Glucose (Glucose Gel 15 Gm Gel..Gram.) 15 gm PO Q15M PRN; Protocol PRN Reason: per Hypoglycemia Standing Ord. Vancomycin HCl 500 mg/ Sodium (Chloride) 110 mls @ 110 mls/hr IV Q24H [facility] Insulin Glargine (Insulin Glargine,Hum.Rec.Anlog 100 Unit/Ml 10 Ml Vial) 20 unit SUBCUT BEDTIME [facility] Last Admin: 06/13/25 20:10 Dose: 20 unit Insulin Human Lispro (Insulin Lispro 100 Unit/Ml 3 Ml Vial) 0 - 10 unit SUBCUT QIDACHS [facility]; Protocol Last Admin: 06/14/25 17:17 Dose: 4 unit Lidocaine HCl (Lidocaine Hcl 1 % Mpf 2 Ml Vial) 0.5 ml SUBCUT MOWEFR@1645 [facility] Last Admin: 06/13/25 16:53 Dose: Not Given Magnesium Hydroxide (Milk Of Magnesia 30 Ml Oral.Susp) 30 ml PO DAILY PRN PRN Reason: Constipation Melatonin (Melatonin 3 Mg Tablet) 6 mg PO BEDTIME PRN PRN Reason: Insomnia Ondansetron HCl (Ondansetron Hcl 4 Mg/2 Ml Vial) 4 mg IVPUSH Q8H PRN PRN Reason: Nausea and Vomiting Last Admin: 06/11/25 04:46 Dose: 4 mg Pantoprazole Sodium (Pantoprazole Sodium 20 Mg Tablet.) 20 mg PO DAILY [facility] Last Admin: 06/14/25 07:32 Dose: 20 mg Pharmacy Consult (Consult Rx Vancomycin Dosing) 1 each MISCELLANE DAILY PRN PRN Reason: Consult order Polyethylene Glycol (Polyethylene Glycol 3350 17 Gm Powd.Pack) 17 gm PO DAILY PRN PRN Reason: Constipation Last Admin: 06/12/25 21:19 Dose: 17 gm Senna (Sennosides 8.6 Mg Tablet) 17.2 mg PO BEDTIME [facility] Last Admin: 06/13/25 20:10 Dose: 17.2 mg Sodium Chloride (0.9 % Sodium Chloride Flush 3 Ml Syringe) [facility] Last Admin: 06/14/25 17:18 Dose: 3 ml Home Medications ?Medication ?Instructions ?Recorded ?Confirmed ?Last Taken ?Type nystatin 100,000 unit/gram topical 1 appl topical TID 07/11/22 06/11/25 Unknown History cream Triamcinolone 0.1% Ointment 1 appl topical TID PRN diabetic 05/13/25 06/11/25 Unknown History psoriasis epoetin silverio 20,000 unit/mL 20,000 unit subcut 05/13/25 06/11/25 Unknown History injection solution Physical Exam Vital Signs: Last Vital Signs Temp 97.3 F 06/14/25 16:00 Pulse 67 06/14/25 16:00 Resp 19 06/14/25 16:00 BP 152/78 H 06/14/25 16:00 Pulse Ox 98 06/14/25 16:00 O2 Del Method Room Air 06/14/25 16:00 BMI result Body Mass Index 53.0 Const General: cooperative, healthy appearing, comfortable, no acute distress, well developed, alert and awake Orientation/consciousness: oriented to person, oriented to place and oriented to time HEENT Head: Yes normal to inspection Face and sinus: Yes normal facial exam Mouth: Normal oral and palatal mucosa present Teeth and gingiva: dentition normal Eyes General: appearance normal, both eyes and all related structures Pupils: Equal, round and reactive pupils present Neck Neck: Yes normal visual inspection and Yes no meningeal signs Carotids: no bruits Chest Chest palpation & inspection: normal inspection of the chest and normal palpation of entire chest wall Resp Effort & Inspection: normal respiratory effort and able to speak in complete sentences Auscultation: clear to auscultation bilaterally, no crackles, no rales, no rhonchi and no wheezes Cardio Jugular venous distension: no JVD Rate: regular rate Rhythm: regular rhythm Heart sounds: S1 normal heart sound present and S2 normal heart sound present Bruits: no carotid bruits Peripheral pulses: Peripheral pulses 2+ throughout GI Inspection: Yes normal to inspection Palpation (GI): Soft to palpation, not firm, nontender, no guarding and not rigid General: Yes no CVA tenderness Back/Spine/Pelvis Back: no CVA tenderness and No back tenderness Skin General skin exam: no rashes or lesions noted, elasticity normal and turgor normal Wounds: no wounds Hair: normal Neuro Other: Bed-bound General: oriented to person, oriented to place, oriented to time, tone normal, moves all extremities, Normal light touch and pain sensation, no meningeal signs, no focal motor deficits, CN's II-XI intact bilaterally and normal sensation to monofilament Cranial nerves: Yes CN's II-XII intact bilaterally, Yes Equal, round and reactive pupils present and Yes Normal hearing present Cognition (Neuro): normal cognition Motor exam (neuro): 5/5 motor strength present throughout Extrem Other: Left upper extremity appears to have a forearm loop graft. There are multiple incisions and it appears according to the patient there were multiple reintervention and endovascular interventions most recently she has had plasty of her outflow venous tract. No erythema or collection noted. General: Yes normal to inspection, Yes full ROM, Yes capillary refill normal, No clubbing, No cyanosis and Yes edema Psych Appearance: grossly normal, well kempt and not disheveled Mental Status: mental status grossly normal Speech and movement: Normal speech and movement present Results Lab Results 06/14/25 05:39 06/14/25 05:39 Lab results: Chemistry 06/12/25 06/13/25 06/14/25 05:16 05:26 05:39 Sodium 137 136 138 Potassium 4.2 4.3 4.1 Carbon Dioxide 27 28 27 BUN 35 H 51 H 34 H Creatinine 3.37 H 4.25 H* 3.23 H Calcium 8.0 L 8.1 L 8.3 L Hematology 06/12/25 06/13/25 06/14/25 05:16 05:26 05:39 WBC 9.4 8.6 8.8 Hgb 8.2 L 8.2 L 8.0 L Plt Count 208 188 184 Assessment and Plan (1) T2DM (type 2 diabetes mellitus): Status: Acute Plan ESRD: mwf via AVG, usu goes to [facility] ( [phone]) Access: AVG UTI: Abx as ore primary team Staph epi: per ID contaminat bc repeat cult neg Nephrogenic Anemia MBD of ESRD REC: cont HD mwf, Abx as per ID, cont usu meds, epo per protocol d/c planning Procedures Date of Service Date of Service: 06/14/25
[2025-06-14 20:00] VITALS: BP 192/96; PULSE 68; RESP 20; TEMP 36.3; O2SAT 96
== END 2025-06-14 20:30 | disposition home health service (06) | DRG 689 ==
LOC: HO.ED 06-11 03:26 → HO.EDOVER 06-11 03:27 → HO.S3 06-11 06:13
PROVIDERS: Internal Medicine; Nurse Practitioner Family; Physician Assistant; Physician Assistant Medical; Admitting Provider Student in an Organized Health Care Education/Training Program; Emergency Provider Emergency Medicine; PCP Internal Medicine; Visit Provider Student in an Organized Health Care Education/Training Program
DX: N39.0 Urinary tract infection, site not specified (principal); N18.6 End stage renal disease; I13.2 Hypertensive heart and chronic kidney disease with heart failure and with stage 5 chronic kidney disease, or end stage renal disease; Z68.43 Body mass index [BMI] 50.0-59.9, adult; I50.32 Chronic diastolic (congestive) heart failure; E11.22 Type 2 diabetes mellitus with diabetic chronic kidney disease; Z99.2 Dependence on renal dialysis; E11.42 Type 2 diabetes mellitus with diabetic polyneuropathy; B96.1 Klebsiella pneumoniae [K. pneumoniae] as the cause of diseases classified elsewhere; D63.1 Anemia in chronic kidney disease; G25.81 Restless legs syndrome; E66.01 Morbid (severe) obesity due to excess calories; Z71.3 Dietary counseling and surveillance; N25.0 Renal osteodystrophy; Z22.322 Carrier or suspected carrier of Methicillin resistant Staphylococcus aureus; Z74.01 Bed confinement status; Z87.891 Personal history of nicotine dependence; Z79.4 Long term (current) use of insulin; Z79.899 Other long term (current) drug therapy
CPT/HCPCS: 36415; 71250; 74176; 80048; 80053; 80202; 81001; 82947; 83690; 83735; 84484; 85025; 85610; 87040; 87086; 87088; 87147; 87186; 87205; 90999; 93005; 93306; 99221; 99285; J0696; J2185; J2270; J2405; J3373; J3374; Q9957

== ENCOUNTER → 2025-06-10 13:37 | Outpatient (BNV) | payer MEDICARE, MEDICAID, SELFPAY | PROVIDERS: Admitting Provider Student in an Organized Health Care Education/Training Program; Emergency Provider Emergency Medicine; PCP Internal Medicine; Visit Provider Internal Medicine Cardiovascular Disease | DX: R94.31 Abnormal electrocardiogram [ECG] [EKG] (principal); R11.2 Nausea with vomiting, unspecified | CPT/HCPCS: 93010 ==

== ENCOUNTER → 2025-06-10 13:52 | Outpatient (BNV) | payer MEDICARE, MEDICAID, SELFPAY | PROVIDERS: Emergency Provider Emergency Medicine; PCP Internal Medicine; Visit Provider Radiology Diagnostic Radiology | DX: N20.0 Calculus of kidney (principal); N32.89 Other specified disorders of bladder; L03.311 Cellulitis of abdominal wall; K74.60 Unspecified cirrhosis of liver; R91.1 Solitary pulmonary nodule | CPT/HCPCS: 71250; 74176 ==

== ENCOUNTER → 2025-06-11 03:21 | Outpatient (BNV) | payer MEDICARE, MEDICAID, SELFPAY | PROVIDERS: Admitting Provider Nurse Practitioner Family; Emergency Provider Emergency Medicine; PCP Internal Medicine; Visit Provider Student in an Organized Health Care Education/Training Program | DX: E11.9 Type 2 diabetes mellitus without complications (principal) | CPT/HCPCS: 99232; 99499 ==

== ENCOUNTER → 2025-06-12 07:00 | Outpatient (BNV) | payer MEDICARE, MEDICAID, SELFPAY | PROVIDERS: Admitting Provider Student in an Organized Health Care Education/Training Program; Emergency Provider Emergency Medicine; PCP Internal Medicine; Visit Provider Internal Medicine Cardiovascular Disease | DX: R78.81 Bacteremia (principal) | CPT/HCPCS: 93306 ==

== ENCOUNTER → 2025-06-12 08:47 | Outpatient (BNV) | payer MEDICARE, MEDICAID, SELFPAY | PROVIDERS: Admitting Provider Student in an Organized Health Care Education/Training Program; Emergency Provider Emergency Medicine; PCP Internal Medicine; Visit Provider Internal Medicine | DX: N18.6 End stage renal disease (principal); Z99.2 Dependence on renal dialysis; N39.0 Urinary tract infection, site not specified | CPT/HCPCS: 99222 ==

== ENCOUNTER → 2025-06-12 08:47 | Outpatient (BNV) | payer MEDICARE, MEDICAID, SELFPAY | PROVIDERS: Admitting Provider Student in an Organized Health Care Education/Training Program; Emergency Provider Emergency Medicine; PCP Internal Medicine; Visit Provider Surgery Vascular Surgery | DX: N18.6 End stage renal disease (principal); Z99.2 Dependence on renal dialysis | CPT/HCPCS: 99222 ==

== ENCOUNTER 2025-06-16 14:19 | Inpatient (IN) | payer MEDICARE, MEDICAID, SELFPAY ==
--- OUTSIDE RECORDS SUMMARY | 2022-07-01 08:00 | XMS_ITS | Continuity of Care Document ---
Author Organization [facility] Address [address] [address] Phone Care Team Providers Care Manager Of Merchandising Name Role Phone Caleb URBINA, Fiona Unavailable Unavailable Advance Directives Directive Yes / No Effective Date File Name No Information Encounters Encounter Description Practice Location Reason(s) For Visit Diagnoses Date Provider [facility], [address], [id number], [place] tel:[phone] [facility] No Information 2021 Caleb Jaimes. [address] [place], [place], [id number], [place]. tel:[phone] Family History Family Member Type Diagnosis Age [...]
--- NOTE | ~2025-06-16 | CT_ITS ---
CLINICAL HISTORY: diarrhea rectal bleed CT abdomen and pelvis without contrast Comparison: CT/SR - CT ABDOMEN PELVIS WO IV CON - 06/10/25 14:47 EDT Findings: The lung bases are clear. Right liver lobe anterior segment calcified rim lesion, 1.1 cm. The liver demonstrates a microlobulated contour with hypertrophy of the caudate lobe. The spleen is homogeneous in attenuation. The gallbladder is within normal limits. Mild atrophy of the left and right kidney. Right adrenal hilum fat attenuating lesion, 1.9 x 2 cm. The left adrenal is within normal limits. The pancreas is moderately atrophic. There is diffuse fecal material seen throughout the colon. The appendix is within normal limits. The uterus demonstrates multiple arterial calcifications are present. Moderate osteopenia. Diffuse idiopathic skeletal hyperostosis IMPRESSION: 1. Cirrhosis. 2. Right adrenal hilum fat-attenuating lesion, 1.9 x 2 cm; adrenal myelolipoma. 3. Moderate osteopenia. 4. Diffuse idiopathic skeletal hyperostosis. 5. No acute intraabdominal or pelvic findings. This document has been electronically signed by: Vimal Miranda MD on 06/16/2025 20:34:16
--- NOTE | ~2025-06-16 | XR_ITS ---
CLINICAL HISTORY: sob 1 view chest x-ray Comparison: CR - XR CHEST 1V - 05/11/25 23:52 EDT Findings: The lungs are clear. Normal size heart. No acute fracture. IMPRESSION: 1. No acute findings. This document has been electronically signed by: Chante Valencia MD on 06/16/2025 18:16:59
[2025-06-16 14:32] VITALS: BP 138/64; PULSE 68; O2SAT 98
[2025-06-16 14:53] VITALS: BP 138/81; PULSE 76; RESP 22; TEMP 36.9; O2SAT 98; BMI 68.7
--- NOTE | 2025-06-16 14:57 | ECG_ITS ---
Test Reason : esdr Blood Pressure : */* mmHG Vent. Rate : 63 BPM Atrial Rate : 63 BPM P-R Int : 142 ms QRS Dur : 100 ms QT Int : 460 ms P-R-T Axes : -28 -37 32 degrees QTcB Int : 470 ms Sinus rhythm with Premature atrial complexes in a pattern of bigeminy Left axis deviation Abnormal ECG When compared with ECG of 10-Jun-2025 13:45, Premature atrial complexes are now Present Referred By: Generic ED Physician Electronically Signed By: Lopez Ray
[2025-06-16 15:18] LABS: MANUAL DIFF FLAG NO
[2025-06-16 15:22] LABS: Hematocrit 27.4 % (37.0-47.0); Hemoglobin 9.1 g/dl (12.0-16.0); Imm Gran Abs Auto 0.06 X10*3/uL (0.00-0.03); Imm Gran Pct Auto 0.6 % (0.0-0.4); Lymphocytes Absolute Auto 1.1 X10*3/uL (1.2-4.9); Mean Corpuscular HGB Conc 33.2 g/dl (31.0-35.0); Mean Corpuscular Hemoglobin 32.7 pg (27.0-33.0); Mean Corpuscular Volume 98.6 fL (80.0-98.0); NRBC Abs Auto 0.000 X10*3/uL (0.0-0.012); NRBC Pct Auto 0.0 /100WBC (0.0-0.2); Platelet Count 187 X10*3/uL (160-400); Red Blood Count 2.78 X10*6/uL (4.20-5.50); White Blood Count 10.0 X10*3/uL (4.8-10.8)
[2025-06-16 15:27] LABS: INTERNATIONAL NORM RATIO 0.9 (0.9-1.1); Prothrombin Time 10.8 SEC (10.9-12.4)
--- OUTSIDE RECORDS SUMMARY | 2025-06-16 15:33 | XMS_ITS | Clinical Summary ---
Author Organization [facility] Address [address] [facility] [address] [place] [address] Phone Care Team Providers Care Assembly Inspector Helper Name Role Phone Terry Ochoa MD Primary Care Provider [phone] Allergies Active Allergy Reactions Criticality Noted Date [...] Only [facility] [address] [place] [address] Alan Mccarthy MD 06/04/2025 Orders Only [facility] [address] [place] [address] Provider, Albert Ordering 05/11/2025 Orders Only [facility] [address] [place] [address] Alan Mccarthy MD 05/11/2025 Treatment [facility], [address] [place] [address] Meli Benita, RACK MAKER-C End stage renal disease; Dependence on renal [...] resultswithin the time period is included. Pathologist [facility] Hepatitis B Surface Ab <10 mIU/mL [facility] Comment: Reference Range: <10 mIU/mL Non-Immune >=10 mIU/mL Immune The magnitude of the measured result above 10 mIU/mL is not indicative of the total amount of antibody present. Custom Exception 06/08/2025 06/09/2025 11: 40 AM EDT Narrative [facility] - 06/09/2025 Unless otherwise specified, test(s) performed at: [facility], [address] [place], [place] [id number] RETINA SUBSPECIALIST: Michael Fields M.D. For any questions, please call customer service at FREQUENCY:OTHER Resulting Agency Comment Specimen source: Serum Alan Mccarthy MD LAB BLOOD ORDERABLES Final Re sult [email or web address] See order comments or contact performing lab Unknown, [place] * HD KINETICS (06/04/2025) Only the most recent of2 resultswithin the time period is included. [facility] % Urea Reduction 70 65 - 80 % [facility] 06/04/2025 06/05/2025 9:0 8 AM EDT Narrative [facility] - 06/05/2025 Unless otherwise specified, test(s) performed at: [facility], [address] [place] [address] RETINA SUBSPECIALIST: Michael Fields M.D. For any questions, please call customer service at FREQUENCY:OTHER Resulting Agency Comment Specimen source: Plasma Alan Mccarthy MD LAB BLOOD ORDERABLES Final Re sult Performing Organization Address [facility]/ZIP Co de Phone Number [facility] See order comments or contact performing lab Unknown, [place] * POST CHEMISTRY (06/04/2025) Only the most recent of2 resultswithin the time period is included. BUN Post Dialysis 18 6 - 19 mg/dL [facility] 06/04/2025 06/05/2025 9:0 8 AM EDT Narrative [facility] - 06/05/2025 Unless otherwise specified, test(s) performed at: [facility], [address] [place] [address] RETINA SUBSPECIALIST: Michael Fields M.D. For any questions, please call customer service at FREQUENCY:OTHER Resulting Agency Comment Specimen source: Plasma Alan Mccarthy MD LAB BLOOD ORDERABLES Final Re sult Performing Organization Address [facility] de Phone Number [email or web address] See order comments or contact performing lab Unknown, [place] * (ABNORMAL) [facility] Chemistry (06/04/2025) Only the most recent of5 resultswithin the time period is included. BUN 60(H) 6 - 19 mg/dL [facility] 06/04/2025 06/05/2025 10: 33 AM EDT Narrative [facility] - 06/05/2025 Unless otherwise specified, test(s) performed at: [facility], [address] [place] [address] RETINA SUBSPECIALIST: Michael Fields M.D. For any questions, please call customer service at FREQUENCY:OTHER Resulting Agency Comment Specimen source: Serum Alan Mccarthy MD LAB BLOOD ORDERABLES Final Re sult Performing Organization Address [facility]/ZIP Co de Phone Number [email or web address] See order comments or contact performing lab Unknown, [place] * [facility] Results (06/04/2025) Only the most recent of2 resultswithin the time period is included. eKdrt/V 1.46 [facility] eKt/V Gotch 1.46 [facility] Center nPCR_HD 0.97 [facility] PCR 71.63 [facility] spKt/V (Daugirdas II) 1.50 [facility] eKt/V ([place]) 1.31 [facility] eNPCR 0.93 [facility] spKt/V Got 1.67 [facility] WSTDKT/V 2.4 [facility] 06/04/2025 06/04/[address] [facility] Ordering Provider LAB BLOOD ORDERABLES Final Result Performing Organization Address [facility] de Phone Number [facility] Contact Performing lab Unknown, [place] * (ABNORMAL) SPECIAL CHEMISTRY (05/30/2025) Only the most recent of2 resultswithin the time period is included. Pathologist [facility] Vitamin D, 25-OH, Total 10.2(L) 30.0 - 100.0 ng/mL [facility] Comment: Please Note: Effective June 28, 2023, the methodology for this test has changed to the [facility]. 05/30/2025 05/31/2025 10: 28 AM EDT Narrative [facility] - 06/01/2025 Unless otherwise specified, test(s) performed at: [facility], [address] [place] [address] RETINA SUBSPECIALIST: Michael Fields M.D. For any questions, please call customer service at FREQUENCY:MONTHLY Resulting Agency Comment Specimen source: Serum Alan Mccarthy MD LAB BLOOD BANK TEST ORDERABLE S Final Result Performing Organization Address [facility] Co de Phone Number [email or web address] See order comments or contact performing lab Unknown, [place] * TRACE ELEMENTS (05/30/2025) Only the most recent of2 resultswithin the time period is included. Pathologist [facility] Aluminum <5 0 - 10 mcg/L [facility] Comment: This test was developed and its performance characteristics determined by [facility]. It has not been cleared or approved by the FDA. The laboratory is regulated under CLIA as qualified to perform high complexity testing. This test is used for clinical purposes. It should not be regarded as investigational or for research. 05/30/2025 05/31/2025 9:1 1 AM EDT Narrative [facility] - 05/31/2025 Unless otherwise specified, test(s) performed at: [facility], [address] [place] [address] RETINA SUBSPECIALIST: Michael Fields M.D. For any questions, please call customer service at FREQUENCY:MONTHLY Resulting Agency Comment Specimen source: Serum Alan Mccarthy MD LAB BLOOD ORDERABLES Final Re sult [facility] See order comments or contact performing lab Unknown, [place] * (ABNORMAL) HEMATOLOGY (05/30/2025) Only the most recent of2 resultswithin the time period is included. Pathologist [facility] WBC 8.87 4.80 - 10.80 1000/mcL [facility] [...] 05/30/2025 05/31/2025 9:3 7 AM EDT Narrative [facility] - 05/31/2025 Unless otherwise specified, test(s) performed at: [facility], [address] [place] [address] RETINA SUBSPECIALIST: Michael Fields M.D. For any questions, please call customer service at FREQUENCY:MONTHLY Resulting Agency Comment Specimen source: Blood Alan Mccarthy MD LAB BLOOD ORDERABLES Final Re sult [facility] See order comments or contact performing lab Unknown, [place] * (ABNORMAL) Hemoglobin A1c (02/04/2022 11:45 AM EDT) Hemoglobin A1C 10.2(H) (4.0-5.6) % [facility] Comment: MONITORING: In known diabetic patients, hemoglobin A1c targets should be discussed with health care provider. DIAGNOSTIC USE: The [place] Diabetes Association (ADA) and the World Health [...] Supplement 1 Testing performed or reported by [facility], a Service of [facility], [address] [place] [address] Jaquelin Grayson MD, Maintenance Mechanic Helper [facility]# [id number] 02/04/2022 11:4 5 AM EDT 02/04/2022 6:50 PM EDT Tony Dejesus MD LAB BLOOD ORDERABLES Final Re sult [facility] from Last 3 Months or Most Recently Relevant to Health Maintenance Insurance Medicaid [place] UHC Medicare Member Subscriber Plan / Payer (Ef fective 2020-Present) Name:Isabel Carcamo Relation to Subscriber:Self Name:Isabel Carcamo Payer ID:[id number] (NAIC) Type:Not on file Address: [place] [id number] Medicaid [place] [facility] Medicare [facility] Medicare Medicaid [place] Care Teams Assembly Inspector Helper Relationship Specialty Start Date End Date Terry Ochoa MD [address] [place], [place] PCP - General Internal Medicine 07/21/23
--- OUTSIDE RECORDS SUMMARY | 2025-06-16 15:33 | XMS_ITS | Encounter Summary ---
Author Organization [facility] Address [address] [place] [address] Phone Care Team Providers Care Data Analyst Report Writer Name Role Phone Terry Ochoa MD Primary Care Provider [phone] Encounter Details Date Type Department Care Team (Late st Contact Info) Description 02/05/2021 Documentation Only [facility] [address] [place] [id number] Tawny Churchill [place] Social History Tobacco Use [...] 204 mg/dL BUN 36 mg/dL eGFR Non-Afr Sudanese 30 eGFR 35 Sodium 141 mEq/L Potassium 4.5 mEq/L Chloride 111 Carbon Dioxide 18 mmol/L Calcium 8.5 mg/dL Phosphorus, Serum 4.4 mg/dL Albumin (Blood) 2.1 g/dL Creatinine 1.8 mg/dL Anion Gap 12 Blood specimen (specimen) 08/21/2020 Historical Provider LAB BLOOD ORDERABLES Alyssa l Result documented in this encounter Visit Diagnoses Not on filedocumented in this encounter Care Teams Data Analyst Report Writer Relationship Specialty Start Date End Date Terry Ochoa MD [address] [place], [place] PCP - General Internal Medicine 07/21/23 documented as of this encounter
--- OUTSIDE RECORDS SUMMARY | 2025-06-16 15:35 | XMS_ITS | Encounter Summary ---
Author Organization [facility] Address [address] [place] [address] Care Team Providers Care Paint Factory Worker Name Role Phone Terry Ochoa MD Primary Care Provider [phone] Encounter Details Date Type Department Care Team ([facility] st Contact Info) Description 11/17/2021 Orders Only [facility] MINE INSPECTOR [address] [facility] [address] [place] [address] Lois Carreno MD [address] [place] [address] Social History Tobacco Use Types Packs/Day Years [...] of this encounter Procedures * Due to [facility] law, this organization might not be sharing negative HIV tests. Procedure Name Priority Date/Time Associated Diagnosis Comments THINPREP TIS PAP AND HPV RNA, HR E6/E7, TMA Routine 11/17/2021 4:35 PM EDT Screening for malignant neoplasm of cervix documented in this encounter Results * Due to [facility] law, this organization might not be sharing negative HIV tests. * THINPREP TIS PAP AND HPV RNA, HR E6/E7, TMA (11/17/2021 4:35 PM EDT) Clinical information Postmenopausal [facility] Date last menstrual period POSTMENOPAUSAL [facility] Date of previous PAP smear NONE GIVEN [facility] Date of previous biopsy NONE GIVEN [facility] Specimen source (Cvx/Vag) None given [facility] Statement of Adequacy (Cvx/Vag) Satisfactory for evaluation. Endocervical/correia sformation zone component present. [facility] Cytology, Pap Smear Negative for intraepithelial lesion or malignancy. [employer] Cytology study comment (Cvx/Vag) This Pap test has been evaluated with computer assisted technology. [employer] Security Intern (Cvx/Vag) [address](ASCP) CT screening location: [place] [address] [employer] COMMENT SEE NOTE [employer] Comment: EXPLANATORY NOTE: The Pap is a [...] HPV MRNA E6/E7 Not Detected Not Detected [employer] Comment: Methodology: Primer Waterproofing Machine Operator-Mediated Amplification This assay detects E6/E7 viral messenger RNA (mRNA) from 14 high-risk HPV types (16,18,31,33,35,39,45,51,52,56,58,59,66,68). The analytical performance characteristics of this assay have been determined by [facility]. The modifications have not been cleared or approved by the FDA. This assay has been validated pursuant to the CLIA regulations and is used for clinical purposes. For additional information, please refer to http://education.Arkadium/faq/URM707e7 (This link if provided for information/ educational purposes only.) 11/17/2021 4:35 PM EDT 11/17/2021 9:57 PM EDT Narrative Resulting Agency Comment [id number] us Lois Carreno MD PATHOLOGY-INTERFACED Final Resul t Performing Organization Address City/State/[facility] Co de Phone Number [facility] [address] [place] [address] documented in this encounter Visit Diagnoses Diagnosis Screening for malignant neoplasm of cervix Screening for malignant neoplasm of the cervix documented in this encounter Care Teams Paint Factory Worker Relationship Specialty Start Date End Date Terry Ochoa MD [facility] [address] [place] [address] PCP - General Internal Medicine 09/30/21 documented as of this encounter
--- OUTSIDE RECORDS SUMMARY | 2025-06-16 15:35 | XMS_ITS | Clinical Summary ---
Author Organization [facility] Address [address] [place] [address] Care Team Providers Care Processing Operator Name Role Phone Terry Ochoa MD Primary Care Provider [phone] Allergies No known active allergies Medications amLODIPine [...] time each day Active epoetin silverio (PROCRIT/EPOGEN) 71760 UNIT/ML injection Inject 20,000 Units under the [...] Monovalent, 30 mcg/0.3 ml 08/13/2021 Covid-19, Vector-nr (MDSave), 0.5 Ml 01/29/2021 Covid-19, mRNA (Pfizer Pre [...] Zoster (Zostavax) Discontinued Procedures * Due to [employer] law, this organization might not be sharing [...] for evaluation. Endocervical/correia sformation zone component present. [facility] Cytology, Pap Smear Negative for intraepithelial lesion or malignancy. [facility] Cytology study comment (Cvx/Vag) This Pap test has been evaluated with computer assisted technology. [facility] Industrial Equipment Wirer (Cvx/Vag) [address](ASCP) CT screening location: [place] [address] [employer] COMMENT SEE NOTE [facility] Comment: EXPLANATORY NOTE: The Pap is a [...] HPV MRNA E6/E7 Not Detected Not Detected [facility] Comment: Methodology: Music Rehabilitation Therapist-Mediated Amplification This assay detects E6/E7 viral messenger RNA (mRNA) from 14 high-risk HPV types (16,18,31,33,35,39,45,51,52,56,58,59,66,68). The analytical performance characteristics of this assay have been determined by [facility]. The modifications have not been cleared or approved by the FDA. This assay has been validated pursuant to the CLIA regulations and is used for clinical purposes. For additional information, please refer to http://education.Zura!.[employer]id[employer]ctor/faq/WFH612y8 (This link if provided for information/ educational purposes only.) 11/17/2021 4:35 PM EDT 11/17/2021 9:57 PM EDT Narrative Resulting Agency Comment [id number] us Lois Carreno MD PATHOLOGY-INTERFACED Final Resul t [facility] [address] [place] [address] from Last 3 Months or Most Recently Relevant to Health Maintenance Insurance MEDICAID [employer] MEDICARE Care Teams Processing Operator Relationship Specialty Start Date End Date Terry Ochoa MD [facility] [address] [place] [address] PCP - General Internal Medicine 09/30/21
[2025-06-16 15:45] LABS: Troponin-I High Sensitivity 20.8 ng/L (<3.5-17.0)
[2025-06-16 15:46] LABS: Alanine Aminotransferase 11 U/L (0-31); Albumin Level 3.5 g/dL (3.5-5.0); Anion Gap 18 (12-20); Aspartate Amino Transferase 27 U/L (5-31); Blood Urea Nitrogen 64 mg/dL (9-16); Calcium 8.4 mg/dL (8.4-10.2); Carbon Dioxide 23 mmol/L (22-29); Chloride 102 mmol/L (96-108); Creatinine Clr Calc Pharmacy 21.9; Estimated Glomerular Filt Rate 11; Magnesium 1.8 mg/dL (1.6-2.6); Potassium 4.6 mmol/L (3.3-5.1); Sodium 138 mmol/L (135-145); Total Protein 6.8 g/dL (6.5-8.0)
--- NOTE | 2025-06-16 16:04 | ED_ITS ---
HPI - General Adult General Chief complaint: Abdominal Pain Stated complaint: DIARRHEA XD,BLEEDING HEMORRHOIDS,-THINNER PER EMS Time Seen by Provider: 06/16/25 16:03 Source: patient Mode of arrival: ambulatory Limitations: no limitations History of Present Illness ED Provider: Dr. Arroyo HPI narrative: This is a 64-year-old female history of ESRD, dialysis, UTI, hypertension hyperlipidemia diabetes presented hospital today for evaluation of diarrhea. Patient stated this has been going on for past couple of days now. Patient stated that she also have transient hemorrhoidal bleed which has stopped. She is mostly bed bound at baseline. She does get visiting aide that comes in to help her throughout the day. She lives alone. Patient is not really complaining of abdominal pain however she does endorse increased shortness of breath. Last dialysis session was this Wednesday. She did not go yesterday due to her diarrhea symptoms. And not feeling well. She does endorse some nausea. She was recently admitted to the hospital and started on antibiotics for urinary tract infection and bacteremia. Related Data Home Medications ?Medication ?Instructions ?Recorded ?Confirmed nystatin 100,000 unit/gram topical 1 appl topical TID 07/11/22 06/11/25 cream Triamcinolone 0.1% Ointment 1 appl topical TID PRN lis betic 05/13/25 06/11/25 psoriasis epoetin silverio 20,000 unit/mL 20,000 unit subcut TH 04/3006/11/25 injection solution Previous Rx's ?Medication ?Instructions ?Recorded blood sugar diagnostic #200 ea 12/05/21 blood sugar diagnostic (Accu-Chek #300 ea 12/05/21 Berna Plus test strips) hospital bed #1 ea 07/06/22 pen needle, diabetic 32 gauge x #100 ea 07/07/22 insulin syringe-needle U-100 1 mL #100 ea 07/08/22 30 gauge x 1/2 (BD Insulin Syringe Ultra-Fine) acetaminophen 325 mg tablet 650 mg (2 x 325 mg) PO Q6H PRN 06/11/25 Pain (Scale Score 4-6) 30 days #3 tabs albuterol sulfate 90 mcg/actuation 2 puff inhalation Q 4H PRN 06/11/25 aerosol inhaler bronchospasm 30 days #8.5 gr ams amlodipine 10 mg tablet 10 mg PO DAILY 30 days #30 t abs 10/13/25 bisacodyl 10 mg rectal suppository 10 mg AL DAILY PRN Constipation 30 06/11/25 days #30 ea docusate sodium 100 mg capsule 100 mg PO DAILY 30 days #30 caps 06/11/25 ferrous fumarate 325 mg (106 mg 325 mg PO DAILY 30 day s #30 tabs 06/11/25 iron) tablet gabapentin 100 mg capsule 100 mg PO BID 30 days #60 ca ps 06/11/25 glucagon 1 mg solution for 1 mg IM Q20M PRN low BG 30 days 06/11/25 injection #30 ea hydralazine 25 mg tablet 25 mg PO TID 30 days #30 tab s 06/11/25 insulin glargine 100 unit/mL (3 20 unit (0.2 mL) subcu t BEDTIME 30 06/11/25 mL) subcutaneous pen (Lantus days #3 mL Solostar U-100 Insulin) insulin lispro 100 unit/mL 10 - 18 unit (0.1 - 0.18 mL ) 06/11/25 subcutaneous solution (Humalog subcut TIDWM 30 days #1 0 mL U-100 Insulin) ondansetron 4 mg disintegrating 4 mg translingual TIDA C PRN nausea 06/11/25 tablet 30 days #12 tabs oxybutynin chloride 15 mg 15 mg PO DAILY 30 days #30 t abs 06/11/25 tablet,extended release 24 hr pantoprazole 20 mg tablet,delayed 20 mg PO DAILY 30 da ys #30 tabs 06/11/25 release polyethylene glycol 3350 17 gram 17 g PO DAILY 30 days #30 ea 06/11/25 oral powder packet ropinirole 0.25 mg tablet 0.25 mg PO BEDTIME 30 days # 30 tabs 06/11/25 sennosides 8.6 mg tablet (senna) 17.2 mg (2 x 8.6 mg) PO BEDTIME 30 06/11/25 days #30 tabs sodium phosphates 19 gram-7 118 ml AL DAILY 30 days #3 0 mL 06/11/25 gram/118 mL enema Allergies Allergy/AdvReac Type Severity Reaction Status Date / Time metformin (METFORMIN) Allergy Severe HIVES Verified 06/16/25 14:57 heparin Allergy Intermediate Itching Verified 06/16/25 14:57 canagliflozin (From Invokana) Allergy Hives Verified 06/16/25 14:57 Review of Systems 2 Review of Systems: Pertinent review of systems as mentioned in HPI. All other system otherwise negative. [facility] Past Medical History [facility] Narrative: Medical history as mentioned in HPI Medical History HTN (hypertension) HLD (hyperlipidemia) Frequent UTI Anemia Acute on chronic diastolic (congestive) heart failure Type 2 diabetes mellitus with obesity Clostridium difficile diarrhea Morbid obesity Detrusor dysfunction Bladder outlet obstruction Esophagitis CKD (chronic kidney disease) stage 4, GFR 15-29 ml/min Hypothyroidism IBS (irritable bowel syndrome) Surgical History History of tubal ligation Family History Family History Father Diabetes Mother Diabetes Hypertension Breast cancer Family/Other Breast cancer Uterine cancer Social History Social History Household Members: None Housing: Apartment Do you presently have visiting nurse or other home services: Yes (RESEARCH LIBRARIAN services) Alcohol intake: never Comment: bedbound at baseline Patient Tobacco Use Status: Former Tobacco user Smoked in Last 30 Days: No e-Cigarette/Vaping Use: Never Used Second Hand Smoke Exposure: No Use of substances other than those prescribed or required for medical reasons: No Advance Directives: Yes Advance Directives on File: Yes Advance Directives Date on File: 10/09/20 Do you have a plan to hurt others: No Plan service: No Current occupational status: disabled Cognitive needs: No Hearing needs: No Vision needs: Yes Physical Exam ED Exam Exam: General: Pleasant, no distress, interacting appropriately Head: Normacephalic, atraumatic ENT: oral mucosa dry, neck supple, no tracheal deviation Cardiovascular: regular rate, regular rhythm, no murmurs, rubbing, gallops Respiratory: Difficult to auscultate due to her body habitus. Gastrointestinal: Soft, non distended, non tender, non guarding Extremities: Left forearm fistula intact. Palpable of throat appreciated Neurological: Awake and alert, no facial droop noted Skin: Warm and dry Psychiatric: Appropriate mood and thoughts Vital Signs: Vital Signs - 24 hr 06/16/25 14:53 06/16/25 16:11 06/16/25 16:28 Temperature 98.5 F Pulse Rate 76 75 Respiratory Rate 22 H 16 Blood Pressure 138/81 165/72 H Pulse Oximetry 98 99 Oxygen Delivery Method Room Air Room Air 06/16/25 19:41 06/16/25 22:03 Temperature 98 F 98.5 F Pulse Rate 66 61 Respiratory Rate 23 H 20 Blood Pressure 171/60 H 165/59 H Pulse Oximetry 93 99 Oxygen Delivery Method Room Air Room Air BMI result Body Mass Index 68.7 Medications Administered Discontinued Medications Generic Name Dose Route Start Last Admin Trade Name Freq PRN Reason Stop Dose Admin Al Hydroxide/Mg Hydroxide 30 ml 06/16/25 18:20 06/16/25 18:28 Magnesium Hydrox/Alum Hydrox 30 Ml Oral.Susp PO 06/16/25 18:21 30 ml ONCE ONE Administration Lidocaine HCl 15 ml 06/16/25 18:20 06/16/25 18:28 Lidocaine Hcl Viscous 2 % 15 Ml Solution MUCOUS MEM 06/16/25 18:21 15 ml ONCE ONE Administration Ondansetron HCl 4 mg 06/16/25 18:20 06/16/25 18:29 Ondansetron Hcl 4 Mg/2 Ml Vial IVPUSH 06/16/25 18:21 4 mg ONCE ONE Administration Medical Decision Making Medical Decision Making [facility] Narrative: This is a 64-year-old female presented hospital today for evaluation of diarrhea and hemorrhoids bleeding. Patient was recently placed on antibiotic for UTI. In setting of diarrhea certainly considering C diff. We will plan to send cultures for C diff if patient is able to provide a stool sample. Obtain basic abdominal lab work. For the patient. UA will be obtained to rule out UTI. Patient is complaining of some shortness of breath likely secondary to missing her dialysis session yesterday. We will plan to reach out to nephrologists for arrangement of dialysis. Patient stated that she is unsure who her fishing vessel captain is. She states she does follow up Dr. Esteban. Patient's lab work shows slight anemia at 9.1, consistent with her baseline. The patient does have elevated BUN at 64. No sign of metabolic acidosis. The patient troponin is around her baseline. Patient's UA did not show any signs of UTI. Chest x-ray did not show any signs of significant pulmonary edema however patient does have a large body habitus that may make it difficult to assess. The patient is still complaining of some shortness of breath. Did discuss the case with the fishing vessel captain on-call Dr. Mccarthy. We will recommends admission for dialysis tomorrow. In setting of potential fluid overload that may be causing her shortness of breath. Patient is not hypoxic. Does not require oxygen at this time. Patient will be admitted to the hospital Differential Diagnosis Differential Diagnoses: The differential diagnosis associated with the presentation includes C diff, colitis, diarrhea, gastritis, fluid overload Consult Healthcare Provider Management of the patient was discussed with: Hospitalist and Balling Machine Operator (Dr. Mccarthy) Lab Data MDM Lab Attestation statement: I reviewed the patient's lab results. 06/16/25 15:10 06/16/25 15:10 Labs: Lab Results 06/16/25 06/16/25 06/16/25 Range/Units 15:10 17:04 19:44 WBC 10.0 (4.8-10.8) X10*3/uL RBC 2.78 L (4.20-5.50) X10*6/uL Hgb 9.1 L (12.0-16.0) g/dl Hct 27.4 L (37.0-47.0) % MCV 98.6 H (80.0-98.0) fL MCH 32.7 (27.0-33.0) pg MCHC 33.2 (31.0-35.0) g/dl RDW 14.3 (11.0-16.0) % Plt Count 187 (160-400) X10*3/uL MPV 9.8 (9.4-12.3) fL Immature Gran % (Auto) 0.6 H (0.0-0.4) % Neut % (Auto) 76.9 H (45-73) % Lymph % (Auto) 11.1 L (20-40) % [place] % (Auto) 7.2 (2-11) % Eos % (Auto) 3.8 (0-4) % Baso % (Auto) 0.4 (0-2) % Lymph # (Auto) 1.1 L (1.2-4.9) X10*3/uL [place] # (Auto) 0.7 (0.1-1.2) X10*3/uL Eos # (Auto) 0.4 (0.0-0.4) X10*3/uL Baso # (Auto) 0.0 (0.0-0.2) X10*3/uL Abs Immat Gran (auto) 0.06 H (0.00-0.03) X10*3/uL Absolute Neuts (auto) 7.7 (2.0-8.3) x10*3/uL Absolute Nucleated RBC 0.000 (0.0-0.012) X10*3/uL Nucleated RBC % (auto) 0.0 (0.0-0.2) /100WBC PT 10.8 L (10.9-12.4) SEC INR 0.9 (0.9-1.1) Sodium 138 (135-145) mmol/L Potassium 4.6 (3.3-5.1) mmol/L Chloride 102 (96-108) mmol/L Carbon Dioxide 23 (22-29) mmol/L Anion Gap 18 (12-20) BUN 64 H (9-16) mg/dL Creatinine 4.19 H* (0.5-1.4) mg/dL Estim Creat Clear Calc 21.9 Estimated GFR 11 Random Glucose 219 H (60-115) mg/dL Lactic Acid 1.1 (0.5-2.0) mmol/L Calcium 8.4 (8.4-10.2) mg/dL Magnesium 1.8 (1.6-2.6) mg/dL Total Bilirubin 0.3 (0.0-1.0) mg/dL AST 27 (5-31) U/L ALT 11 (0-31) U/L Alkaline Phosphatase 121 H (39-117) U/L Troponin I High Sens 20.8 H (<3.5-17.0) ng/L Total Protein 6.8 (6.5-8.0) g/dL Albumin 3.5 (3.5-5.0) g/dL Urine Color Yellow Urine Appearance Cloudy Urine pH 6.5 (5.0-9.0) Ur Specific [place] 1.015 (1.005-1.025) Urine Protein 100 (2+) H (Neg-Trace) mg/dL Urine Glucose (UA) 250 H (Negative) mg/dL Urine Ketones Negative (Negative) mg/dL Urine Blood Negative (Negative) Urine Nitrite Negative (Negative) Ur Leukocyte Esterase Trace H (Negative) Urine RBC 0-2 (0-2) /HPF Urine WBC 0-5 (0-5) /HPF Ur Squamous Epith Cells 3-5 (0-2) /HPF Urine Bacteria None Seen (None Seen) Hyaline Casts 0-2 (0-2) /LPF C. difficile Tox B Gene NEGATIVE (Negative) Independent Interpretation I performed an independent interpretation of an: Plain X-Ray Radiology Impression Discussion of test interpretation with radiology: I have reviewed the radiologist's reading. Discharge Plan Discharge Clinical Impression: ESRD (end stage renal disease), Breath shortness, Diarrhea Patient Disposition: Admitted As Inpatient
[2025-06-16 16:11] VITALS: PULSE 75; RESP 16; O2SAT 99
[2025-06-16 16:28] VITALS: BP 165/72
[2025-06-16 17:19] LABS: Appearance Urine Cloudy; Glucose Urine UA 250 mg/dL (Negative); PH 6.5 (5.0-9.0); Specific Gravity - Urine 1.015 (1.005-1.025); UMIC TRIGGER UA YES
[2025-06-16 17:29] LABS: Alkaline Phosphatase 121 U/L (39-117)
[2025-06-16] MEDS: Lidocaine HCl Viscous 2 % 15 ML SOLUTION MUCOUS MEM (18:28)
[2025-06-16] MEDS: Magnesium Hydrox/Alum Hydrox 30 ML ORAL.SUSP PO (18:28)
[2025-06-16 19:41] VITALS: BP 171/60; PULSE 66; RESP 23; TEMP 36.6; O2SAT 93
[2025-06-16 21:07] LABS: CDiff Gene PCR NEGATIVE (Negative)
[2025-06-16 22:03] VITALS: BP 165/59; PULSE 61; RESP 20; TEMP 36.9; O2SAT 99
--- NOTE | 2025-06-16 23:52 | PM.IMHP ---
History of Present Illness Date of Service: 06/16/25 Attending physician on admission: Bandar Parr Chief Complaint: Diarrhea Isabel Carcamo is a 64 years old woman with past medical history significant for end-stage renal disease on hemodialysis (MWF), bed-bound due to morbid obesity, E. coli ESBL type 2 diabetes mellitus on insulin, hyperlipidemia, cirrhosis of the liver, essential hypertension, chronic pain/neuropathy and GERD presents to the emergency department complaining of diarrhea since yesterday. She denied any associated abdominal pain, nausea or vomiting. She does have chronic nausea. Did not report fever or chills. She denies shortness of breath or chest pain. She missed dialysis yesterday due to diarrhea. She was recently hospitalized due to Staph bacteremia and Klebsiella UTI treated with meropenem and vancomycin and subsequently ceftriaxone. She did not report any toxic habits. In the ED she was found to have stable vital signs. Blood workup showed no leukocytosis. Hemoglobin is 9.1 and platelets 187. BUN is 64 and creatinine 4.19. There are no electrolyte imbalances. Glucose 219. LFTs are remarkable for elevated alk-phos only. Troponin is 20.8. Albumin is normal. UA showed proteinuria 2+, glucosuria and trace leukocyte steroids. ECG showed sinus rhythm with PACs. Abdominal pelvis CT scan without contrast, showed cirrhosis and no acute abdominal abnormalities. CXR is negative. ED tx: Maalox 30 mL p.o., viscous lidocaine, Zofran 4 mg IV Review of Systems Review of Systems: All 12 systems were reviewed and normal except as noted in HPI. [facility] Medical History HTN (hypertension) HLD (hyperlipidemia) Frequent UTI Anemia Acute on chronic diastolic (congestive) heart failure Type 2 diabetes mellitus with obesity Clostridium difficile diarrhea Morbid obesity Detrusor dysfunction Bladder outlet obstruction Esophagitis CKD (chronic kidney disease) stage 4, GFR 15-29 ml/min Hypothyroidism IBS (irritable bowel syndrome) Family History Father Diabetes Mother Diabetes Hypertension Breast cancer Family/Other Breast cancer Uterine cancer Surgical History History of tubal ligation Social History Household Members: None Housing: Apartment Do you presently have visiting nurse or other home services: Yes (ADDICTIONS COUNSELOR ASSISTANT services) Alcohol intake: never Comment: bedbound at baseline Patient Tobacco Use Status: Former Tobacco user Smoked in Last 30 Days: No e-Cigarette/Vaping Use: Never Used Second Hand Smoke Exposure: No Use of substances other than those prescribed or required for medical reasons: No Advance Directives: Yes Advance Directives on File: Yes Advance Directives Date on File: 10/09/20 Do you have a plan to hurt others: No Plan service: No Current occupational status: disabled Cognitive needs: No Hearing needs: No Vision needs: Yes Meds Allergies Allergy/AdvReac Type Severity Reaction Status Date / Time metformin (METFORMIN) Allergy Severe HIVES Verified 06/16/25 14:57 heparin Allergy Intermediate Itching Verified 06/16/25 14:57 canagliflozin (From Invokana) Allergy Hives Verified 06/16/25 14:57 Active Medications: Current Medications Acetaminophen (Acetaminophen 325 Mg Tablet) 975 mg PO Q6H PRN PRN Reason: Pain, Mild 1-3,fever,headache Calcium Carbonate (Calcium Carbonate 750 Mg Tab.Chew) 750 mg PO Q4H PRN PRN Reason: Heartburn Magnesium Hydroxide (Milk Of Magnesia 30 Ml Oral.Susp) 30 ml PO DAILY PRN PRN Reason: Constipation Melatonin (Melatonin 3 Mg Tablet) 6 mg PO BEDTIME PRN PRN Reason: Insomnia Sodium Chloride (0.9 % Sodium Chloride Flush 3 Ml Syringe) 3 ml IVFLUSH QSHIFT [facility] Home Medications ?Medication ?Instructions ?Recorded ?Confirmed ?Last Taken ?Type nystatin 100,000 unit/gram topical 1 appl topical TID 07/11/22 06/11/25 Unknown History cream Triamcinolone 0.1% Ointment 1 appl topical TID PRN diabetic 05/13/25 06/11/25 Unknown History psoriasis epoetin silverio 20,000 unit/mL 20,000 unit subcut TH 05/13/25 06/11/25 Unknown History injection solution Physical Exam Vital Signs and Narrative: Vital Signs: Last Vital Signs Temp 98.5 F 06/16/25 22:03 Pulse 61 06/16/25 22:03 Resp 20 06/16/25 22:03 BP 165/59 H 06/16/25 22:03 Pulse Ox 99 06/16/25 22:03 O2 Del Method Room Air 06/16/25 22:03 BMI result Body Mass Index 68.7 General: Alert, oriented, in no acute distress. Cooperative. Obese. Afebrile. Speaking in complete sentences. HEENT: Head normocephalic, atraumatic. PER, EOMI. Sclerae anicteric, conjunctiva clear. Oropharynx without erythema or exudate. Mucous membranes moist. Neck: Supple, no lymphadenopathy, or JVD. Heart: Limited due to patient's body habitus Lungs: Limited due to patient's body habitus. Abdomen: Soft, non tenderness, nondistended, normoactive bowel sounds. No hepatosplenomegaly, masses or masses. Extremities: No calf tenderness bilaterally, no swelling Musculoskeletal: Full range of motion. No joint swelling, deformity, or tenderness. Normal muscle tone and strength. Skin: Warm/Dry. No pallor. No jaundice. Neurologic: Alert & oriented x4. Moving all extremities spontaneously. Normal speech. Psychological: Normal mood and affect. Thought process coherent. Results Labs 06/16/25 15:10 06/16/25 15:10 Labs: Laboratory Results - last 24 hr 06/16/25 06/16/25 06/16/25 15:10 17:04 19:44 MCV 98.6 H MCH 32.7 MCHC 33.2 RDW 14.3 Plt Count 187 MPV 9.8 Immature Gran % (Auto) 0.6 H Neut % (Auto) 76.9 H Lymph % (Auto) 11.1 L [place] % (Auto) 7.2 Eos % (Auto) 3.8 Baso % (Auto) 0.4 Lymph # (Auto) 1.1 L [place] # (Auto) 0.7 Eos # (Auto) 0.4 Baso # (Auto) 0.0 Abs Immat Gran (auto) 0.06 H Absolute Neuts (auto) 7.7 Absolute Nucleated RBC 0.000 Nucleated RBC % (auto) 0.0 PT 10.8 L INR 0.9 Anion Gap 18 Estim Creat Clear Calc 21.9 Estimated GFR 11 Random Glucose 219 H Lactic Acid 1.1 Calcium 8.4 Magnesium 1.8 Total Bilirubin 0.3 AST 27 ALT 11 Alkaline Phosphatase 121 H Troponin I High Sens 20.8 H Total Protein 6.8 Albumin 3.5 Urine Color Yellow Urine Appearance Cloudy Urine pH 6.5 Ur Specific [place] 1.015 Urine Protein 100 (2+) H Urine Glucose (UA) 250 H Urine Ketones Negative Urine Blood Negative Urine Nitrite Negative Ur Leukocyte Esterase Trace H Urine RBC 0-2 Urine WBC 0-5 Ur Squamous Epith Cells 3-5 Urine Bacteria None Seen Hyaline Casts 0-2 C. difficile Tox B Gene NEGATIVE Assessment and Plan (1) Acute diarrhea: Status: Acute (2) Uncontrolled type 2 diabetes mellitus with hyperglycemia: Status: Acute Plan Isabel Carcamo is a 64 y/o woman with a PMHx significant for E. coli ESBL a recent hospitalization due to Staph bacteremia and Klebsiella UTI who presents with: Acute diarrhea, rule out C diff -recent hospitalization and use of antibiotics. Check GI/c diff panel. Contact precautions ESRD on HD (MWF). Missed last HD. Nephrology consult obtained by ED. Type 2 diabetes mellitus. BG checks before meals at bedtime. Insulin sliding scale and Lantus. Diabetic diet. Essential hypertension. Continue amlodipine and hydralazine. Chronic pain/neuropathy. Continue gabapentin. Chronic nausea. Continue Zofran. Morbid obesity. BMI 68.7 kg/m2. Nutrition provided by home nursing. Hx E.coli ESBL. Code status: Full DVT prophylaxis: SCDs only, allergic to heparin Patient will need hospitalization for at least 2 midnights for C diff workup due to diarrhea in the setting of recent hospitalization and use of antibiotics on a patient with multiple medical comorbidities. This documentation was generated using dictation software; minor spreading or accountant bookkeeper errors may be present. Quality Stroke Does the patient have a stroke diagnosis?: No VTE Prior VTE?: No VTE Risk Level:: Medical - moderate - high VTE Device Contraindication: Treatment Not Indicated VTE Drug Contraindication: N/A - Med Ordered
[2025-06-17] VITALS (10 sets, daily range): BP systolic 127–168; BP diastolic 45–71; PULSE 59–66; RESP 17–20; TEMP 36–37; O2SAT 95–100
[2025-06-17 00:27] LABS: NT Pro B Type Natriuretic Pept 4478.0 pg/mL (<300)
[2025-06-17] MEDS: 0.9 % Sodium Chloride Flush 3 ML SYRINGE IVFLUSH ×4 (00:36→22:25)
[2025-06-17] MEDS: Insulin Glargine,Hum.rec.anlog 100 UNIT/ML 10 ML VIAL 15 UNIT SUBCUT (00:41)
[2025-06-17 06:48] LABS: Glucose, Whole Blood 218 mg/dL (60-115)
[2025-06-17 07:35] LABS: Hemoglobin A1C 141.7370 umol/L; Total Hemoglobin (HGBA1C) 2190.6898 umol/L
[2025-06-17 07:38] LABS: Anion Gap 16 (12-20); Blood Urea Nitrogen 60 mg/dL (9-16); Calcium 8.1 mg/dL (8.4-10.2); Carbon Dioxide 22 mmol/L (22-29); Chloride 104 mmol/L (96-108); Creatinine Clr Calc Pharmacy 21.8; Estimated Glomerular Filt Rate 11; Magnesium 1.8 mg/dL (1.6-2.6); Potassium 4.4 mmol/L (3.3-5.1); Sodium 138 mmol/L (135-145)
[2025-06-17 07:42] LABS: Glucose, Whole Blood 193 mg/dL (60-115)
--- NOTE | 2025-06-17 07:48 | PHA.MEDREC ---
Pharmacy Consult ? Medication Reconciliation Pharmacy has completed the medication reconciliation.Med rec complete. Patient is not a great historian, she states she only knows some of her medications but has a visiting nurse. She was able to confirm her usual dose of Lantus is 20 units. Patient was just discharged 3 days ago and I utilized her discharge summary to confirm most of her medications.
[2025-06-17 10:25] LABS: CDiff Gene PCR NEGATIVE (Negative)
[2025-06-17 10:57] LABS: Hematocrit 27.8 % (37.0-47.0); Hemoglobin 8.6 g/dl (12.0-16.0); Imm Gran Abs Auto 0.03 X10*3/uL (0.00-0.03); Imm Gran Pct Auto 0.3 % (0.0-0.4); Lymphocytes Absolute Auto 1.1 X10*3/uL (1.2-4.9); Mean Corpuscular HGB Conc 30.9 g/dl (31.0-35.0); Mean Corpuscular Hemoglobin 32.7 pg (27.0-33.0); Mean Corpuscular Volume 105.7 fL (80.0-98.0); NRBC Abs Auto 0.000 X10*3/uL (0.0-0.012); NRBC Pct Auto 0.0 /100WBC (0.0-0.2); Platelet Count 180 X10*3/uL (160-400); Red Blood Count 2.63 X10*6/uL (4.20-5.50); White Blood Count 9.3 X10*3/uL (4.8-10.8)
[2025-06-17 10:59] LABS: MANUAL DIFF FLAG NO
[2025-06-17 11:30] LABS: Glucose, Whole Blood 268 mg/dL (60-115)
--- NOTE | 2025-06-17 13:55 | MHC.CM.PN ---
Addendum entered by Claudia Boyer 06/18/25 17:04: PT REPORTS HAVING DIARRHEA DURING HD AND REQUESTS SHE DC IN THE MORNING WHEN SHE WILL HAVE A RUG CLEANING SUPERVISOR AVAILABLE Addendum entered by Claudia Boyer 06/18/25 16:42: PT CLEARED TO DC FOLLOWING HD DCP: RETURN HOME AND RESUME RUG CLEANING SUPERVISOR SERVICES BLS TRANSPORT VIA [employer] [facility] Original Note: PT LIVES ALONE HAS A RUG CLEANING SUPERVISOR 8 HRS A DAY GOES TO DIALYSIS Wed PT WILL NEED AMB HOME
--- NOTE | 2025-06-17 15:53 | PC.NURSE ---
BP elevated on admission 168/69 pulse 60 ,meds from home not ordered yet, Dr. Templeton made aware.
[2025-06-17 16:30] LABS: Glucose, Whole Blood 273 mg/dL (60-115)
--- NOTE | 2025-06-17 19:56 | HO.PM.IMPN ---
Subjective Subjective Date of Service: 06/17/25 Interval History: No new issues today. Still suffering with diarrhea. Patient has an appetite, and is able to intake PO food and water. Pending HD session Wednesday. Missed session on Wednesday & Wednesday due to diarrhea. Review of Systems Review of Systems: Yes all other systems are reviewed and are negative Physical Exam Exam: Exam: General: Alert, oriented, in no acute distress. Cooperative. Obese. Afebrile. Speaking in complete sentences. HEENT: Head normocephalic, atraumatic. PER, EOMI. Sclerae anicteric, conjunctiva clear. Oropharynx without erythema or exudate. Mucous membranes moist. Neck: Supple, no lymphadenopathy, or JVD. Heart: Limited due to patient's body habitus Lungs: Limited due to patient's body habitus. Abdomen: Soft, non tenderness, nondistended, normoactive bowel sounds. No hepatosplenomegaly, masses or masses. Extremities: No calf tenderness bilaterally, no swelling Musculoskeletal: Full range of motion. No joint swelling, deformity, or tenderness. Normal muscle tone and strength. Skin: Warm/Dry. No pallor. No jaundice. Neurologic: Alert & oriented x4. Moving all extremities spontaneously. Normal speech. Psychological: Normal mood and affect. Thought process coherent. Vital Signs: Vital Signs: Last Vital Signs Temp 97.1 F 06/17/25 19:18 Pulse 65 06/17/25 19:18 Resp 20 06/17/25 19:18 BP 147/67 H 06/17/25 19:18 Pulse Ox 100 06/17/25 19:18 O2 Del Method Nasal Cannula 06/17/25 19:18 O2 Flow Rate 1 06/17/25 19:18 BMI result Body Mass Index 68.7 Objective Data Active Medications Acetaminophen (Acetaminophen 325 Mg Tablet) 975 mg PO Q6H PRN PRN Reason: Pain, Mild 1-3,fever,headache Calcium Carbonate (Calcium Carbonate 750 Mg Tab.Chew) 750 mg PO Q4H PRN PRN Reason: Heartburn Dextrose (Dextrose 50 % 25 Gm/50 Ml Syringe) 25 gm IVPUSH Q15M PRN; Protocol PRN Reason: per Hypoglycemia Standing Ord. Glucose (Glucose Gel 15 Gm Gel..Gram.) 15 gm PO Q15M PRN; Protocol PRN Reason: per Hypoglycemia Standing Ord. Insulin Human Lispro (Insulin Lispro 100 Unit/Ml 3 Ml Vial) 0 unit SUBCUT QIDACHS [facility]; Protocol Last Admin: 06/17/25 16:45 Dose: 6 unit Documented By: CARMEN Magnesium Hydroxide (Milk Of Magnesia 30 Ml Oral.Susp) 30 ml PO DAILY PRN PRN Reason: Constipation Melatonin (Melatonin 3 Mg Tablet) 6 mg PO BEDTIME PRN PRN Reason: Insomnia Sodium Chloride (0.9 % Sodium Chloride Flush 3 Ml Syringe) 3 ml IVFLUSH [facility] Last Admin: 06/17/25 16:46 Dose: 3 ml Documented By: CARMEN Labs 06/17/25 10:38 06/17/25 05:55 Labs: Laboratory Results - last 24 hr 06/16/25 06/16/25 06/17/25 15:10 19:44 00:41 MCV MCH MCHC RDW Plt Count MPV Immature Gran % (Auto) Neut % (Auto) Lymph % (Auto) Oliver % (Auto) Eos % (Auto) Baso % (Auto) Lymph # (Auto) Oliver # (Auto) Eos # (Auto) Baso # (Auto) Abs Immat Gran (auto) Absolute Neuts (auto) Absolute Nucleated RBC Nucleated RBC % (auto) Anion Gap Estim Creat Clear Calc Estimated GFR POC Glucose 218 H Random Glucose Estimat Average Glucose Hemoglobin A1c % Calcium Magnesium NT-Pro-B Natriuret Pep 4478.0 H C. difficile Tox B Gene NEGATIVE 06/17/25 06/17/25 06/17/25 05:55 07:33 08:27 MCV MCH MCHC RDW Plt Count MPV Immature Gran % (Auto) Neut % (Auto) Lymph % (Auto) Oliver % (Auto) Eos % (Auto) Baso % (Auto) Lymph # (Auto) Oliver # (Auto) Eos # (Auto) Baso # (Auto) Abs Immat Gran (auto) Absolute Neuts (auto) Absolute Nucleated RBC Nucleated RBC % (auto) Anion Gap 16 Estim Creat Clear Calc 21.8 Estimated GFR 11 POC Glucose 193 H Random Glucose 221 H Estimat Average Glucose 186 Hemoglobin A1c % 8.1 H Calcium 8.1 L Magnesium 1.8 NT-Pro-B Natriuret Pep C. difficile Tox B Gene NEGATIVE 06/17/25 06/17/25 06/17/25 10:38 11:24 16:21 MCV 105.7 H D MCH 32.7 MCHC 30.9 L RDW 14.6 Plt Count 180 MPV 9.9 Immature Gran % (Auto) 0.3 Neut % (Auto) 75.2 H Lymph % (Auto) 11.8 L Oliver % (Auto) 8.0 Eos % (Auto) 3.9 Baso % (Auto) 0.8 Lymph # (Auto) 1.1 L Oliver # (Auto) 0.8 Eos # (Auto) 0.4 Baso # (Auto) 0.1 Abs Immat Gran (auto) 0.03 Absolute Neuts (auto) 7.0 Absolute Nucleated RBC 0.000 Nucleated RBC % (auto) 0.0 Anion Gap Estim Creat Clear Calc Estimated GFR POC Glucose 268 H 273 H Random Glucose Estimat Average Glucose Hemoglobin A1c % Calcium Magnesium NT-Pro-B Natriuret Pep C. difficile Tox B Gene Microbiology Microbiology Results: Microbiology 06/16/25 15:44 Blood Culture - Preliminary Blood - Venous No growth after 24 hours. 06/16/25 15:10 Blood Culture - Preliminary Blood - Venous No growth after 24 hours. Assessment and Plan (1) T2DM (type 2 diabetes mellitus): Status: Acute (2) Uncontrolled type 2 diabetes mellitus with hyperglycemia: Status: Acute (3) Acute diarrhea: Status: Acute (4) Nausea: Status: Acute (5) ESRD (end stage renal disease): Status: Acute (6) Dialysis patient: Status: Acute (7) CKD (chronic kidney disease) stage 4, GFR 15-29 ml/min: Status: Acute (8) ESRD (end stage renal disease) on dialysis: Status: Acute (9) Anemia: Status: Acute (10) Weakness: Status: Acute Plan Isabel Carcamo is a 64 y/o woman with an history of ESRD HD MWF, bed-bound due to morbid obesity, E. coli ESBL type 2 diabetes mellitus on insulin, hyperlipidemia, cirrhosis of the liver, essential hypertension, chronic pain/neuropathy and GERD presents to the emergency department complaining of diarrhea, admitted with acute diarrheal illness with inability to intake PO, weakness. Acute diarrhea, rule out C diff -recent hospitalization and use of antibiotics. Check GI/c diff panel. Contact precautions ESRD on HD (MWF). Missed last HD. Nephrology consult obtained by ED. Type 2 diabetes mellitus. BG checks before meals at bedtime. Insulin sliding scale and Lantus. Diabetic diet. Essential hypertension. Continue amlodipine and hydralazine. Chronic pain/neuropathy. Continue gabapentin. Chronic nausea. Continue Zofran. Morbid obesity. BMI 68.7 kg/m2. Nutrition provided by home nursing. Hx E.coli ESBL. Code status: Full DVT prophylaxis: SCDs only, allergic to heparin Total time managing care of this patient today: 35 minutes. Quality Stroke Does the patient have a stroke diagnosis?: No VTE Prior VTE?: No VTE Risk Level:: Medical - moderate - high VTE Device Contraindication: Treatment Not Indicated VTE Drug Contraindication: N/A - Med Ordered
[2025-06-17 21:15] LABS: Glucose, Whole Blood 280 mg/dL (60-115)
[2025-06-18] VITALS: BP 169/77; PULSE 69; RESP 18; TEMP 36.5; O2SAT 99
[2025-06-18 04:00] VITALS: BP 147/66; PULSE 57; RESP 17; TEMP 36; O2SAT 100
[2025-06-18 06:58] VITALS: BP 157/64; PULSE 54; RESP 16; TEMP 36.6; O2SAT 100
[2025-06-18 07:09] LABS: Glucose, Whole Blood 252 mg/dL (60-115)
[2025-06-18] MEDS: oxyBUTYnin chloride ER 5 MG TAB.ER.24 15 MG PO (08:07)
[2025-06-18] MEDS: Ferrous Sulfate 324 MG TABLET.DR PO (08:08)
[2025-06-18] MEDS: 0.9 % Sodium Chloride Flush 3 ML SYRINGE IVFLUSH ×3 (08:15→21:42)
[2025-06-18 08:57] LABS: E. coli EAEC Not Detected (Not Detect.); E. coli EPEC Not Detected (Not Detect.); E. coli ETEC Not Detected (Not Detect.); E. coli STEC Not Detected (Not Detect.); Shigella sp./EIEC Not Detected (Not Detect.)
[2025-06-18 16:00] VITALS: BP 144/60; PULSE 62; RESP 18; TEMP 36.1; O2SAT 100
[2025-06-18 16:39] LABS: Glucose, Whole Blood 322 mg/dL (60-115)
--- NOTE | 2025-06-18 17:33 | P.CONNP_ITS ---
History of Present Illness Reason for Consult Consult date: 06/18/25 Reason for consult: ESRD Chief Complaint Chief complaint: Shortness on breath, missed dialysis History of Present Illness Narrative: TIM consulted for ESRD and Dialysis management Readm with gen weakness and diarrhea, missed her last HD Tx ( 06/15/25) In summary she is a ESRD HD MWF 9 [facility] ([phone]) , bed-bound due to morbid obesity, E. coli ESBL type 2 diabetes mellitus on insulin, hyperlipidemia, cirrhosis of the liver, essential hypertension, chronic pain/neuropathy and GERD presents to the emergency department complaining of diarrhea, admitted with acute diarrheal illness with inability to intake PO, weakness. Acute diarrhea, rule out C diff -recent hospitalization and use of antibiotics. Check GI/c diff panel. Contact precautions PMH as noted Review of Systems Review of Systems All 12 systems were reviewed and normal except as noted in HPI. Yes all other systems are reviewed and are negative PMFSH Past Medical History Medical History HTN (hypertension) HLD (hyperlipidemia) Frequent UTI Anemia Acute on chronic diastolic (congestive) heart failure Type 2 diabetes mellitus with obesity Clostridium difficile diarrhea Morbid obesity Detrusor dysfunction Bladder outlet obstruction Esophagitis CKD (chronic kidney disease) stage 4, GFR 15-29 ml/min Hypothyroidism IBS (irritable bowel syndrome) Family History Family History Father Diabetes Mother Diabetes Hypertension Breast cancer Family/Other Breast cancer Uterine cancer Surgical History Surgical History History of tubal ligation Social History Social History Household Members: None Housing: Apartment Do you presently have visiting nurse or other home services: Yes ([employer]) Alcohol intake: never Comment: bedbound at baseline Patient Tobacco Use Status: Former Tobacco user e-Cigarette/Vaping Use: Never Used Second Hand Smoke Exposure: No Advance Directives Date on File: 10/09/20 service: No Current occupational status: disabled Cognitive needs: No Hearing needs: No Vision needs: Yes Meds Allergies Allergy/AdvReac Type Severity Reaction Status Date / Time metformin (METFORMIN) Allergy Severe HIVES Verified 06/16/25 14:57 heparin Allergy Intermediate Itching Verified 06/16/25 14:57 canagliflozin (From Invokana) Allergy Hives Verified 06/16/25 14:57 Active Medications: Current Medications Acetaminophen (Acetaminophen 325 Mg Tablet) 975 mg PO Q6H PRN PRN Reason: Pain, Mild 1-3,fever,headache Albuterol Sulfate (Albuterol Sulfate 90 Mcg 8 Gm Inhaler) 2 puff INHALE Q4H PRN PRN Reason: bronchospasm Amlodipine Besylate (Amlodipine Besylate 10 Mg Tablet) 10 mg PO DAILY [facility]; Protocol Last Admin: 06/18/25 08:08 Dose: 10 mg Calcium Carbonate (Calcium Carbonate 750 Mg Tab.Chew) 750 mg PO Q4H PRN PRN Reason: Heartburn Dextrose (Dextrose 50 % 25 Gm/50 Ml Syringe) 25 gm IVPUSH Q15M PRN; Protocol PRN Reason: per Hypoglycemia Standing Ord. Ferrous Sulfate (Ferrous Sulfate 324 Mg Tablet.Dr) 324 mg PO DAILY [facility] Last Admin: 06/18/25 08:08 Dose: 324 mg Gabapentin (Gabapentin 100 Mg Capsule) 100 mg PO BID [facility] Last Admin: 06/18/25 08:08 Dose: 100 mg Glucose (Glucose Gel 15 Gm Gel..Gram.) 15 gm PO Q15M PRN; Protocol PRN Reason: per Hypoglycemia Standing Ord. Hydralazine HCl (Hydralazine Hcl 25 Mg Tablet) 25 mg PO TID [facility]; Protocol Last Admin: 06/18/25 17:03 Dose: 25 mg Insulin Glargine (Insulin Glargine,Hum.Rec.Anlog 100 Unit/Ml 10 Ml Vial) 16 unit SUBCUT BEDTIME [facility] Last Admin: 06/17/25 22:20 Dose: Not Given Insulin Human Lispro (Insulin Lispro 100 Unit/Ml 3 Ml Vial) 0 unit SUBCUT QIDACHS [facility]; Protocol Last Admin: 06/18/25 17:05 Dose: 8 unit Magnesium Hydroxide (Milk Of Magnesia 30 Ml Oral.Susp) 30 ml PO DAILY PRN PRN Reason: Constipation Melatonin (Melatonin 3 Mg Tablet) 6 mg PO BEDTIME PRN PRN Reason: Insomnia Omeprazole (Omeprazole 20 Mg Capsule.Dr) 20 mg PO DAILY@0630 [facility] Last Admin: 06/18/25 05:53 Dose: 20 mg Ondansetron HCl (Ondansetron Odt 4 Mg Tab.Rapdis) 4 mg TRANSLINGU TIDAC PRN PRN Reason: Nausea Oxybutynin Chloride (Oxybutynin Chloride Er 5 Mg Tab.Er.24) 15 mg PO DAILY [facility] Last Admin: 06/18/25 08:07 Dose: 15 mg Ropinirole HCl (Ropinirole Hcl 0.25 Mg Tablet) 0.25 mg PO BEDTIME [facility] Last Admin: 06/17/25 22:19 Dose: 0.25 mg Sodium Chloride (0.9 % Sodium Chloride Flush 3 Ml Syringe) 3 ml IVFLUSH QSHIFT [facility] Last Admin: 06/18/25 17:04 Dose: 3 ml Triamcinolone Acetonide (Triamcinolone Acet 0.1 % Oint 15 Gm Tube) 1 appl TOPICAL TID PRN PRN Reason: diabetic psoriasis Home Medications ?Medication ?Instructions ?Recorded ?Confirmed ?Last Taken ?Type nystatin 100,000 unit/gram topical 1 appl topical TID 07/11/22 06/17/25 Unknown History cream Triamcinolone 0.1% Ointment 1 appl topical TID PRN lis betic 05/13/25 06/17/25 Unknown History psoriasis epoetin silverio 20,000 unit/mL 20,000 unit subcut TH 04/3006/17/25 Unknown History injection solution Physical Exam Vital Signs: Last Vital Signs Temp 97.0 F 06/18/25 16:00 Pulse 62 06/18/25 16:00 Resp 18 06/18/25 16:00 BP 144/60 H 06/18/25 16:00 Pulse Ox 100 06/18/25 16:00 O2 Del Method Nasal Cannula 06/18/25 16:00 O2 Flow Rate 2 06/18/25 16:00 BMI result Body Mass Index 68.7 Results Lab Results 06/17/25 10:38 06/17/25 05:55 Lab results: Chemistry 06/16/25 06/17/25 15:10 05:55 Sodium 138 138 Potassium 4.6 4.4 Carbon Dioxide 23 22 BUN 64 H 60 H Creatinine 4.19 H* 4.20 H* Calcium 8.4 8.1 L Hematology 06/16/25 06/17/25 15:10 10:38 WBC 10.0 9.3 Hgb 9.1 L 8.6 L Plt Count 187 180 Urinalysis 06/16/25 17:04 Urine Color Yellow Urine Appearance Cloudy Urine pH 6.5 Ur Specific [place] 1.015 Urine Protein 100 (2+) H Urine Glucose (UA) 250 H Urine Ketones Negative Urine Blood Negative Urine Nitrite Negative Ur Leukocyte Esterase Trace H Urine RBC 0-2 Urine WBC 0-5 Ur Squamous Epith Cells 3-5 Hyaline Casts 0-2 Assessment and Plan (1) T2DM (type 2 diabetes mellitus): Status: Acute (2) Uncontrolled type 2 diabetes mellitus with hyperglycemia: Status: Acute (3) Acute diarrhea: Status: Acute (4) Nausea: Status: Acute (5) ESRD (end stage renal disease): Status: Acute (6) Dialysis patient: Status: Acute (7) CKD (chronic kidney disease) stage 4, GFR 15-29 ml/min: Status: Acute (8) ESRD (end stage renal disease) on dialysis: Status: Acute (9) Anemia: Status: Acute (10) Weakness: Status: Acute Plan ESRD: mwf Hemoaccess: AVG Nephrogenic Anemia MBD of ESRD Bed bound REC: HD today and cont mwf; Abx as per primary team Procedures Date of Service Date of Service: 06/18/25
[2025-06-18 20:00] VITALS: BP 143/68; PULSE 62; RESP 18; TEMP 36.1; O2SAT 99
[2025-06-18 21:11] LABS: Glucose, Whole Blood 303 mg/dL (60-115)
[2025-06-18] MEDS: Insulin Glargine,Hum.rec.anlog 100 UNIT/ML 10 ML VIAL 16 UNIT SUBCUT (21:43)
--- NOTE | 2025-06-18 22:01 | PC.NURSE ---
Pt refused 21:00 lispro insulin. Pt stated, That's not what I do at home. Pt educated on importance of blood sugar control and medication regimen. PA notified. Per PA, will recheck blood sugar in 2 hours.
[2025-06-18 23:22] LABS: Glucose, Whole Blood 272 mg/dL (60-115)
[2025-06-18 23:31] VITALS: BP 168/64; PULSE 60; RESP 18; TEMP 36; O2SAT 97
--- NOTE | 2025-06-18 23:42 | PC.NURSE ---
Blood sugar recheck was 272. PA aware.
[2025-06-19 03:42] VITALS: BP 151/65; PULSE 57; RESP 18; TEMP 36.1; O2SAT 96
[2025-06-19 06:50] VITALS: BP 152/65; PULSE 57; RESP 17; TEMP 36.6; O2SAT 97
[2025-06-19 07:11] LABS: Glucose, Whole Blood 230 mg/dL (60-115)
[2025-06-19] MEDS: oxyBUTYnin chloride ER 5 MG TAB.ER.24 15 MG PO (07:54)
[2025-06-19] MEDS: Ferrous Sulfate 324 MG TABLET.DR PO (07:55)
[2025-06-19] MEDS: 0.9 % Sodium Chloride Flush 3 ML SYRINGE IVFLUSH (07:57)
--- NOTE | 2025-06-19 08:38 | P.DS_ITS ---
DS: Providers Provider Date of Service: 06/19/25 Date of admission: 06/16/25 23:10 Date of discharge: 06/19/25 Primary care physician: Alexi Lynne MD Consults: 06/16/25 23:52 Consult to Nephrology Routine Consulting Provider: Alan Mccarthy Reason for consultation: Missed last HD Has provider been notified: Yes DS: Diagnosis Discharge Diagnosis (1) T2DM (type 2 diabetes mellitus): Status: Acute (2) Uncontrolled type 2 diabetes mellitus with hyperglycemia: Status: Acute (3) Acute diarrhea: Status: Acute (4) Nausea: Status: Acute (5) ESRD (end stage renal disease): Status: Acute (6) Dialysis patient: Status: Acute (7) CKD (chronic kidney disease) stage 4, GFR 15-29 ml/min: Status: Acute (8) ESRD (end stage renal disease) on dialysis: Status: Acute (9) Anemia: Status: Acute (10) Weakness: Status: Acute DS: Summary Hospital Course Hospital Course: Admission hpi Chief Complaint: Diarrhea Isabel Carcamo is a 64 years old woman with past medical history significant for end-st age renal disease on hemodialysis (MWF), bed-bound due to morbid obesity, E. coli ESBL type 2 diabetes mellitus on insulin, hyperlipidemia, cirrhosis of the liver, essential hypertension, chronic pain/neuropathy and GERD presents to the emergency department complaining of diarrhea since yesterday. She denied any associated abdominal pain, nausea or vomiting. She does have chronic nausea. Did not report fever or chills. She denies shortness of breath or chest pain. She missed dialysis yesterday due to diarrhea. She was recently hospitalized due to Staph bacteremia and Klebsiella UTI treated with meropenem and vancomycin and subsequently ceftriaxone. She did not report any toxic habits. In the ED she was found to have stable vital signs. Blood workup showed no leukocytosis. Hemoglobin is 9.1 and platelets 187. BUN is 64 and creatinine 4.19. There are no electrolyte imbalances. Glucose 219. LFTs are remarkable for elevated alk-phos only. Troponin is 20.8. Albumin is normal. UA showed proteinuria 2+, glucosuria and trace leukocyte steroids. ECG showed sinus rhythm with PACs. Abdominal pelvis CT scan without contrast, showed cirrhosis and no acute abdominal abnormalities. CXR is negative. ED tx: Maalox 30 mL p.o., viscous lidocaine, Zofran 4 mg IV Hospital course: Patient presented with diarrhea for 3 days and as result misseded dialysis and thus in fluid overload and short of breath. GI panel is negative, C dif if negative. Diarrhea has improved, She's has gotten dialysis and will be discharged after that and should resume usual Time Attestation Discharge Coordination Time (in mins): 45 Quality: Safe Use of Opioids Does Pt have an Active Cancer Diagnosis on the Problem List?: No Quality: Stroke Does the patient have a stroke diagnosis?: No Physical Exam Vital Signs: Vital Signs: Selected Entries 06/19/25 06:50 Temperature 98 F Pulse Rate 57 Respiratory Rate 17 Blood Pressure 152/65 H Pulse Oximetry 97 Oxygen Delivery Me thod Room Air DS: Data Data Completed and Pending Completed studies during hospitalization [Text1]: Procedures Excision of Duodenum, Via Natural or Artificial Opening Endoscopic, Diagnostic (07/31/20) Excision of Stomach, Pylorus, Via Natural or Artificial Opening Endoscopic, Diagnostic (07/31/20) Performance of Urinary Filtration, Intermittent, Less than 6 Hours Per Day (05/14/25) Labs on day of discharge: Laboratory Results - last 24 hr 06/17/25 06/17/25 06/17/25 08:27 10:38 11:24 WBC 9.3 RBC 2.63 L Hgb 8.6 L Hct 27.8 L MCV 105.7 H D MCH 32.7 MCHC 30.9 L RDW 14.6 Plt Count 180 MPV 9.9 Immature Gran % (Auto) 0.3 Neut % (Auto) 75.2 H Lymph % (Auto) 11.8 L Wilcox % (Auto) 8.0 Eos % (Auto) 3.9 Baso % (Auto) 0.8 Lymph # (Auto) 1.1 L Wilcox # (Auto) 0.8 Eos # (Auto) 0.4 Baso # (Auto) 0.1 Abs Immat Gran (auto) 0.03 Absolute Neuts (auto) 7.0 Absolute Nucleated RBC 0.000 Nucleated RBC % (auto) 0.0 POC Glucose 268 H Stl C. cayetanensis PCR Not Detected Stool Rotavirus A PCR Not Detected Stl Adenov F 40/41 PCR Not Detected Stool Astrovirus (PCR) Not Detected Stool Campylobacter PCR Not Detected Stool Cryptosporidium PCR Not Detected Stl Sh Tox Pr E STEC PCR Not Detected Stool E coli O157 PCR Not applicable Stl Enterotoxigenic E PCR Not Detected Stool EPEC (PCR) Not Detected Stool EAEC (PCR) Not Detected Stl E. histolytica PCR Not Detected Stool Giardia Lamblia PCR Not Detected Stl P. shigelloides PCR Not Detected Stool Salmonella PCR Not Detected Stool Sapovirus (PCR) Not Detected Stl Shigella/EIEC PCR Not Detected St Y.enterocolitica PCR Not Detected Stool Vibrio (PCR) Not Detected Stl Vibrio cholerae PCR Not Detected Stl Norovirus GI/GII PCR Not Detected 06/17/25 06/17/25 06/18/25 16:21 21:00 06:57 WBC RBC Hgb Hct MCV MCH MCHC RDW Plt Count MPV Immature Gran % (Auto) Neut % (Auto) Lymph % (Auto) Wilcox % (Auto) Eos % (Auto) Baso % (Auto) Lymph # (Auto) Wilcox # (Auto) Eos # (Auto) Baso # (Auto) Abs Immat Gran (auto) Absolute Neuts (auto) Absolute Nucleated RBC Nucleated RBC % (auto) POC Glucose 273 H 280 H 252 H Stl C. cayetanensis PCR Stool Rotavirus A PCR Stl Adenov F 40/41 PCR Stool Astrovirus (PCR) Stool Campylobacter PCR Stool Cryptosporidium PCR Stl Sh Tox Pr E STEC PCR Stool E coli O157 PCR Stl Enterotoxigenic E PCR Stool EPEC (PCR) Stool EAEC (PCR) Stl E. histolytica PCR Stool Giardia Lamblia PCR Stl P. shigelloides PCR Stool Salmonella PCR Stool Sapovirus (PCR) Stl Shigella/EIEC PCR St Y.enterocolitica PCR Stool Vibrio (PCR) Stl Vibrio cholerae PCR Stl Norovirus GI/GII PCR Preliminary micro results at discharge 06/16/25 15:44 Blood Culture - Preliminary Blood - Venous No growth after 24 hours. 06/16/25 15:10 Blood Culture - Preliminary Blood - Venous No growth after 24 hours. Discharge Plan Discharge Anticipated Discharge Date/Time: 06/19/25 08:37 Patient Disposition: Home, Self-Care Discharge Diagnosis: Diarrhea, fluid overload, sob Referrals: Alexi Lynne MD [Primary Care Provider, Internal Medicine] - 1 Week Discharge Medications: Continued (DME) Accu-Chek Berna Plus test strp Strip See Rx Instructions .Route Qty: 300 8RF Rx Instructions: to check blood sugars five times a day ([facility]) blood sugar diagnostic Strip See Rx Instructions .ROUTE .MEDSUPPLY Qty: 200 8RF Rx Instructions: FREESTYLE TEST STRIPS (DME) hospital bed Kit See Rx Instructions .Route Qty: 1 0RF Rx Instructions: As directed (DME) pen needle, diabetic 32 gauge x 5/32 needle See Rx Instructions .Route Qty: 100 0RF Rx Instructions: use TID (DME) insulin syringe-needle U-100 [BD Insulin Syringe Ultra-Fine] 1 mL 30 gauge x 1/2 syringe See Rx Instructions .ROUTE .MEDSUPPLY Qty: 100 3RF Rx Instructions: TID nystatin 100,000 unit/gram Cream 1 appl TOPICAL TID Protocol: Apply to: Apply to: UNDER BREASTS, BELLY FOLDS epoetin silverio 20,000 unit/mL Solution 20,000 unit SUBCUT TH Triamcinolone 0.1% Ointment ointment 1 appl topical TID PRN (Reason: diabetic psoriasis) sennosides [senna] 8.6 mg Tablet 17.2 mg PO BEDTIME 30 Days Qty: 30 3RF acetaminophen 325 mg Tablet 650 mg PO Q6H PRN (Reason: Pain (Scale Score 4-6)) 30 Days Qty: 3 3RF polyethylene glycol 3350 17 gram Powder In Packet 17 g PO DAILY 30 Days Qty: 30 3RF pantoprazole 20 mg Tablet,Delayed Release (Dr/Ec) 20 mg PO DAILY 30 Days Qty: 30 3RF ropinirole 0.25 mg tablet 0.25 mg PO BEDTIME 30 Days Qty: 30 2RF amlodipine 10 mg tablet 10 mg PO DAILY 30 Days Qty: 30 3RF bisacodyl 10 mg Suppository 10 mg RI DAILY PRN (Reason: Constipation) 30 Days Qty: 30 3RF sodium phosphates 19-7 gram/118 mL Enema 118 ml RI DAILY 30 Days Qty: 30 3RF Rx Instructions: Give if Dulcolax suppository is ineffective docusate sodium 100 mg Capsule 100 mg PO DAILY 30 Days Qty: 30 3RF insulin lispro [Humalog U-100 Insulin] 100 unit/mL solution 10 - 18 unit subcut TIDWM 30 Days Qty: 10 3RF Rx Instructions: Patient uses a sliding scale glucagon 1 mg Recon Soln 1 mg IM Q20M PRN (Reason: low BG) 30 Days Qty: 30 3RF Rx Instructions: until target blood sugar attained ondansetron 4 mg tablet,disintegrating 4 mg translingual TIDAC PRN (Reason: nausea) 30 Days Qty: 12 3RF insulin glargine [Lantus Solostar U-100 Insulin] 100 unit/mL (3 mL) insulin pen 20 unit subcut BEDTIME 30 Days Qty: 3 3RF ferrous fumarate 325 mg (106 mg iron) Tablet 325 mg PO DAILY 30 Days Qty: 30 3RF albuterol sulfate 90 mcg/actuation HFA aerosol inhaler 2 puff inhalation Q4H PRN (Reason: bronchospasm) 30 Days Qty: 8.5 5RF oxybutynin chloride 15 mg tablet extended release 24hr 15 mg PO DAILY 30 Days Qty: 30 3RF hydralazine 25 mg Tablet 25 mg PO TID 30 Days Qty: 30 3RF gabapentin 100 mg capsule 100 mg PO BID 30 Days Qty: 60 0RF Discharge Orders: Discharge Order (Routine); Ordered 06/18/25 Ordered By: Lewis José Diet: Advance to usual diet Activity on Discharge: As tolerated Stand Alone Forms: Patient Portal Discharge page Print Language: Tajik Care Plan Goals: recovery from diarrhea, dehydration Health Concerns: diarrhea, fluid overload Plan of Treatment: resume usual dialysis schedule Assessment: see above
--- NOTE | 2025-06-19 09:29 | MHC.CM.PN ---
IMM 06/17/25 Patient scheduled to discharge yesterday, 06/18/25. Per RN patient refused to leave. This morning, Case Management booked transportation for 9:30am pickle processor. She stated that she can not discharge until 5pm due to no keys. manager qa called patients apartment building office. CM arranged for management to open her apartment when she arrives via BLS.
[2025-06-19 09:54] VITALS: BP 160/72; PULSE 68; RESP 16; TEMP 36.6; O2SAT 98
== END 2025-06-19 09:54 | disposition home or self-care (01) | DRG 640 ==
LOC: HO.ED 16:03 → HO.EDOVER 23:21 → HO.S3 06-17 07:02
PROVIDERS: Hospitalist; Admitting Provider Internal Medicine; Emergency Provider Student in an Organized Health Care Education/Training Program; PCP Internal Medicine; Visit Provider Internal Medicine
DX: E87.70 Fluid overload, unspecified (principal); N18.6 End stage renal disease; I12.0 Hypertensive chronic kidney disease with stage 5 chronic kidney disease or end stage renal disease; Z68.44 Body mass index [BMI] 60.0-69.9, adult; R19.7 Diarrhea, unspecified; Z99.2 Dependence on renal dialysis; Z91.158 Patient's noncompliance with renal dialysis for other reason; E11.22 Type 2 diabetes mellitus with diabetic chronic kidney disease; E66.01 Morbid (severe) obesity due to excess calories; E11.40 Type 2 diabetes mellitus with diabetic neuropathy, unspecified; Z74.01 Bed confinement status; K74.60 Unspecified cirrhosis of liver; D63.1 Anemia in chronic kidney disease; R11.0 Nausea; N25.0 Renal osteodystrophy; Z87.891 Personal history of nicotine dependence; Z79.4 Long term (current) use of insulin; Z79.899 Other long term (current) drug therapy
CPT/HCPCS: 36415; 71045; 74176; 80048; 80053; 81001; 82947; 83036; 83605; 83735; 83880; 84484; 85025; 85610; 87040; 87493; 87507; 90999; 93005; 99285; J0696; J2405

== ENCOUNTER → 2025-06-16 14:57 | Outpatient (BNV) | payer MEDICARE, MEDICAID, SELFPAY | PROVIDERS: Admitting Provider Internal Medicine; Emergency Provider Student in an Organized Health Care Education/Training Program; PCP Internal Medicine; Visit Provider Internal Medicine Cardiovascular Disease | DX: I49.1 Atrial premature depolarization (principal) | CPT/HCPCS: 93010 ==

== ENCOUNTER → 2025-06-16 16:58 | Outpatient (BNV) | payer MEDICARE, MEDICAID, SELFPAY | PROVIDERS: Emergency Provider Student in an Organized Health Care Education/Training Program; PCP Internal Medicine; Visit Provider Radiology Diagnostic Radiology | DX: K74.60 Unspecified cirrhosis of liver (principal); D35.01 Benign neoplasm of right adrenal gland; M85.88 Other specified disorders of bone density and structure, other site; M48.10 Ankylosing hyperostosis [Forestier], site unspecified; R06.02 Shortness of breath | CPT/HCPCS: 71045; 74176 ==

== ENCOUNTER → 2025-06-16 23:10 | Outpatient (BNV) | payer MEDICARE, MEDICAID, SELFPAY | PROVIDERS: Admitting Provider Internal Medicine; Emergency Provider Student in an Organized Health Care Education/Training Program; PCP Internal Medicine; Visit Provider Internal Medicine | DX: E11.9 Type 2 diabetes mellitus without complications (principal); E11.65 Type 2 diabetes mellitus with hyperglycemia; R19.7 Diarrhea, unspecified; R11.0 Nausea; N18.6 End stage renal disease; Z99.2 Dependence on renal dialysis; N18.4 Chronic kidney disease, stage 4 (severe); D64.9 Anemia, unspecified; R53.1 Weakness | CPT/HCPCS: 99223; 99232 ==

== ENCOUNTER 2025-06-21 15:25 | Emergency (ER) | payer MEDICARE, MEDICAID, SELFPAY ==
--- NOTE | ~2025-06-21 | XR_ITS ---
CLINICAL HISTORY: ESRD 1 view chest x-ray Comparison: CR - XR CHEST 1V - 06/16/25 17:24 EDT Findings: Nodular opacity in the left base. No pleural effusion or pneumothorax. Heart size is normal. No acute fracture. IMPRESSION: Nodular opacity in the left base secondary to confluence artifact, focal atelectasis or small infiltrate. This document has been electronically signed by: Florina Ji DO on 06/21/2025 17:21:19
[2025-06-21 15:43] VITALS: BP 158/70; BP 161/59; PULSE 67; RESP 16; TEMP 37.2; O2SAT 97; O2SAT 99; BMI 56.5
[2025-06-21 15:44] LABS: Glucose, Whole Blood 223 mg/dL (60-115)
--- NOTE | 2025-06-21 16:06 | ECG_ITS ---
Test Reason : NAUSEA Blood Pressure : */* mmHG Vent. Rate : 64 BPM Atrial Rate : 64 BPM P-R Int : 150 ms QRS Dur : 96 ms QT Int : 468 ms P-R-T Axes : 66 -40 31 degrees QTcB Int : 482 ms Normal sinus rhythm Left axis deviation Abnormal ECG When compared with ECG of 16-Jun-2025 15:21, No significant changes seen Referred By: Rafia Saldana Electronically Signed By: JOSE ROBERTO BLANCO MD
--- NOTE | 2025-06-21 16:07 | ED_ITS ---
HPI - General Adult General Chief complaint: Nausea/Vomiting/Diarrhea Stated complaint: nauseous since dialysis yesterday Time Seen by Provider: 06/21/25 15:48 Source: patient, EMS and old records reviewed Mode of arrival: EMS Limitations: no limitations History of Present Illness ED Provider: DR. Saldana HPI narrative: A 64-year-old female with PMHx ESRD on HD M/W/F last dialysis was yesterday, mostly bed bound due to morbid obesity, T2 DM on insulin, HLD, liver cirrhosis, HTN, chronic neuropathy, GERD with chronic nausea, patient was seen by her primary doctor today for follow-up prescribing metoprolol 12.5 mg to control her blood pressure, patient is already on amlodipine and hydralazine. Patient decided to come in for nausea control in the emergency department, patient was recently discharged from the hospital for diarrhea. Had history of staph bacteremia and Klebsiella UTI that was treated with Mirapex Eliceo and vancomycin and subsequently ceftriaxone. Related Data Home Medications ?Medication ?Instructions ?Recorded ?Confirmed nystatin 100,000 unit/gram topical 1 appl topical TID 07/11/22 06/21/25 cream Triamcinolone 0.1% Ointment 1 appl topical TID PRN lis betic 05/13/25 06/21/25 psoriasis epoetin silverio 20,000 unit/mL 20,000 unit subcut TH 04/3006/21/25 injection solution Previous Rx's ?Medication ?Instructions ?Recorded blood sugar diagnostic #200 ea 12/05/21 blood sugar diagnostic (Accu-Chek #300 ea 12/05/21 Berna Plus test strips) hospital bed #1 ea 07/06/22 pen needle, diabetic 32 gauge x #100 ea 07/07/22 insulin syringe-needle U-100 1 mL #100 ea 07/08/22 30 gauge x 1/2 (BD Insulin Syringe Ultra-Fine) acetaminophen 325 mg tablet 650 mg (2 x 325 mg) PO Q6H PRN 06/11/25 Pain (Scale Score 4-6) 30 days #3 tabs amlodipine 10 mg tablet 10 mg PO DAILY 30 days #30 t abs 06/11/25 bisacodyl 10 mg rectal suppository 10 mg MN DAILY PRN Constipation 30 06/11/25 days #30 ea docusate sodium 100 mg capsule 100 mg PO DAILY 30 days #30 caps 06/11/25 ferrous fumarate 325 mg (106 mg 325 mg PO DAILY 30 day s #30 tabs 06/11/25 iron) tablet gabapentin 100 mg capsule 100 mg PO BID 30 days #60 ca ps 06/11/25 glucagon 1 mg solution for 1 mg IM Q20M PRN low BG 30 days 06/11/25 injection #30 ea hydralazine 25 mg tablet 25 mg PO TID 30 days #30 tab s 06/11/25 insulin glargine 100 unit/mL (3 20 unit (0.2 mL) subcu t BEDTIME 30 06/11/25 mL) subcutaneous pen (Lantus days #3 mL Solostar U-100 Insulin) insulin lispro 100 unit/mL 10 - 18 unit (0.1 - 0.18 mL ) 06/11/25 subcutaneous solution (Humalog subcut TIDWM 30 days #1 0 mL U-100 Insulin) ondansetron 4 mg disintegrating 4 mg translingual TIDA C PRN nausea 06/11/25 tablet 30 days #12 tabs oxybutynin chloride 15 mg 15 mg PO DAILY 30 days #30 t abs 06/11/25 tablet,extended release 24 hr pantoprazole 20 mg tablet,delayed 20 mg PO DAILY 30 da ys #30 tabs 06/11/25 release polyethylene glycol 3350 17 gram 17 g PO DAILY 30 days #30 ea 06/11/25 oral powder packet ropinirole 0.25 mg tablet 0.25 mg PO BEDTIME 30 days # 30 tabs 06/11/25 sennosides 8.6 mg tablet (senna) 17.2 mg (2 x 8.6 mg) PO BEDTIME 30 06/11/25 days #30 tabs sodium phosphates 19 gram-7 118 ml MN DAILY 30 days #3 0 mL 06/11/25 gram/118 mL enema metoprolol tartrate 25 mg tablet 12.5 mg (1/2 x 25 mg) PO BID #60 06/21/25 tabs sulfamethoxazole 800 1 tab PO Q12H #14 tabs 06/21 mg-trimethoprim 160 mg tablet (Bactrim DS) Allergies Allergy/AdvReac Type Severity Reaction Status Date / Time metformin (METFORMIN) Allergy Severe HIVES Verified 06/21/25 15:45 heparin Allergy Intermediate Itching Verified 06/21/25 15:45 canagliflozin (From Invokana) Allergy Hives Verified 06/21/25 15:45 PMFSH Past Medical History Medical History HTN (hypertension) HLD (hyperlipidemia) Frequent UTI Anemia Acute on chronic diastolic (congestive) heart failure Type 2 diabetes mellitus with obesity Clostridium difficile diarrhea Morbid obesity Detrusor dysfunction Bladder outlet obstruction Esophagitis CKD (chronic kidney disease) stage 4, GFR 15-29 ml/min Hypothyroidism IBS (irritable bowel syndrome) Surgical History History of tubal ligation Family History Family History Father Diabetes Mother Diabetes Hypertension Breast cancer Family/Other Breast cancer Uterine cancer Social History Social History Household Members: None Housing: Apartment Do you presently have visiting nurse or other home services: Yes ([employer]) Alcohol intake: never Comment: bedbound at baseline Patient Tobacco Use Status: Former Tobacco user Smoked in Last 30 Days: No e-Cigarette/Vaping Use: Never Used Second Hand Smoke Exposure: No Use of substances other than those prescribed or required for medical reasons: No Advance Directives: Yes Advance Directives on File: Yes Advance Directives Date on File: 10/09/20 Do you have a plan to hurt others: No Plan service: No Current occupational status: disabled Cognitive needs: No Hearing needs: No Vision needs: Yes Physical Exam ED Vital Signs: Vital Signs - 24 hr 06/21/25 15:43 06/21/25 18:30 06/21/25 19:45 Temperature 98.9 F 99.4 F Pulse Rate 67 65 60 Respiratory Rate 16 18 16 Blood Pressure 161/59 H 147/54 H 142/45 H Pulse Oximetry 99 99 99 Oxygen Delivery Method Room Air Room Air Room Air BMI result Body Mass Index 56.5 Course Reevaluation(s) Reevaluation #1: ESR came in for chronic nausea no specific complaints otherwise, found to have UTI will start on Bactrim discharge to resume her dialysis tomorrow. Patient do not have symptoms to suggest pneumonia with clear lung exam. Time: 21:09 Medications Administered Discontinued Medications Generic Name Dose Route Start Last Admin Trade Name Karis PRN Reason Stop Dose Admin Ondansetron HCl 4 mg 06/21/25 16:06 06/21/25 16:12 Ondansetron Odt 4 Mg Tab.Brenna GOMEZU 06/21/25 16:07 4 mg ONCE ONE Administration Medical Decision Making Differential Diagnosis Differential Diagnoses: The differential diagnosis associated with the presentation includes (Electrolyte derangement, volume overload, UTI, infection.) Admission/Observation Consideration of admission/observation: Escalation of care including admission/observation considered Lab Data MDM Lab Attestation statement: I reviewed the patient's lab results. 06/21/25 16:21 06/21/25 16:21 Labs: Lab Results 06/21/25 06/21/25 06/21/25 Range/Units 15:36 16:21 18:32 WBC 9.7 (4.8-10.8) X10*3/uL RBC 2.92 L (4.20-5.50) X10*6/uL Hgb 9.4 L (12.0-16.0) g/dl Hct 28.6 L (37.0-47.0) % MCV 97.9 D (80.0-98.0) fL MCH 32.2 (27.0-33.0) pg MCHC 32.9 (31.0-35.0) g/dl RDW 13.6 (11.0-16.0) % Plt Count 175 (160-400) X10*3/uL MPV 10.1 (9.4-12.3) fL Immature Gran % (Auto) 0.5 H (0.0-0.4) % Neut % (Auto) 75.5 H (45-73) % Lymph % (Auto) 13.9 L (20-40) % [place] % (Auto) 7.2 (2-11) % Eos % (Auto) 2.2 (0-4) % Baso % (Auto) 0.7 (0-2) % Lymph # (Auto) 1.4 (1.2-4.9) X10*3/uL [place] # (Auto) 0.7 (0.1-1.2) X10*3/uL Eos # (Auto) 0.2 (0.0-0.4) X10*3/uL Baso # (Auto) 0.1 (0.0-0.2) X10*3/uL Abs Immat Gran (auto) 0.05 H (0.00-0.03) X10*3/uL Absolute Neuts (auto) 7.3 (2.0-8.3) x10*3/uL Absolute Nucleated RBC 0.000 (0.0-0.012) X10*3/uL Nucleated RBC % (auto) 0.0 (0.0-0.2) /100WBC Sodium 138 (135-145) mmol/L Potassium 3.9 (3.3-5.1) mmol/L Chloride 101 (96-108) mmol/L Carbon Dioxide 27 (22-29) mmol/L Anion Gap 14 (12-20) BUN 37 H (9-16) mg/dL Creatinine 3.36 H (0.5-1.4) mg/dL Estim Creat Clear Calc 25.8 Estimated GFR 14 POC Glucose 223 H (60-115) mg/dL Random Glucose 232 H (60-115) mg/dL Calcium 8.5 (8.4-10.2) mg/dL Total Bilirubin 0.4 (0.0-1.0) mg/dL Direct Bilirubin 0.1 (0.0-0.5) mg/dL AST 19 (5-31) U/L ALT 9 (0-31) U/L Alkaline Phosphatase 123 H (39-117) U/L Troponin I High Sens 22.3 H (<3.5-17.0) ng/L Total Protein 6.7 (6.5-8.0) g/dL Albumin 3.6 (3.5-5.0) g/dL Lipase 21 (8-78) U/L Urine Color Yellow Urine Appearance Cloudy Urine pH 6.0 (5.0-9.0) Ur Specific [place] 1.015 (1.005-1.025) Urine Protein 100 (2+) H (Neg-Trace) mg/dL Urine Glucose (UA) 500 H (Negative) mg/dL Urine Ketones Negative (Negative) mg/dL Urine Blood Negative (Negative) Urine Nitrite Negative (Negative) Ur Leukocyte Esterase Small (1+) H (Negative) Urine RBC 3-5 H (0-2) /HPF Urine WBC 21-50 H (0-5) /HPF Ur Squamous Epith Cells 11-20 (0-2) /HPF Urine Bacteria None Seen (None Seen) Hyaline Casts 0-2 (0-2) /LPF Urine Yeast Present Influenza Type A (PCR) NEGATIVE (Negative) Influenza Type B (PCR) NEGATIVE (Negative) RSV RNA Qual (PCR) NEGATIVE (Negative) SARS-CoV-2 RNA (RT-PCR) NEGATIVE (Negative) 06/21/25 Range/Units 19:57 WBC (4.8-10.8) X10*3/uL RBC (4.20-5.50) X10*6/uL Hgb (12.0-16.0) g/dl Hct (37.0-47.0) % MCV (80.0-98.0) fL MCH (27.0-33.0) pg MCHC (31.0-35.0) g/dl RDW (11.0-16.0) % Plt Count (160-400) X10*3/uL MPV (9.4-12.3) fL Immature Gran % (Auto) (0.0-0.4) % Neut % (Auto) (45-73) % Lymph % (Auto) (20-40) % [place] % (Auto) (2-11) % Eos % (Auto) (0-4) % Baso % (Auto) (0-2) % Lymph # (Auto) (1.2-4.9) X10*3/uL [place] # (Auto) (0.1-1.2) X10*3/uL Eos # (Auto) (0.0-0.4) X10*3/uL Baso # (Auto) (0.0-0.2) X10*3/uL Abs Immat Gran (auto) (0.00-0.03) X10*3/uL Absolute Neuts (auto) (2.0-8.3) x10*3/uL Absolute Nucleated RBC (0.0-0.012) X10*3/uL Nucleated RBC % (auto) (0.0-0.2) /100WBC Sodium (135-145) mmol/L Potassium (3.3-5.1) mmol/L Chloride (96-108) mmol/L Carbon Dioxide (22-29) mmol/L Anion Gap (12-20) BUN (9-16) mg/dL Creatinine (0.5-1.4) mg/dL Estim Creat Clear Calc Estimated GFR POC Glucose (60-115) mg/dL Random Glucose (60-115) mg/dL Calcium (8.4-10.2) mg/dL Total Bilirubin (0.0-1.0) mg/dL Direct Bilirubin (0.0-0.5) mg/dL AST (5-31) U/L ALT (0-31) U/L Alkaline Phosphatase (39-117) U/L Troponin I High Sens 22.9 H (<3.5-17.0) ng/L Total Protein (6.5-8.0) g/dL Albumin (3.5-5.0) g/dL Lipase (8-78) U/L Urine Color Urine Appearance Urine pH (5.0-9.0) Ur Specific [place] (1.005-1.025) Urine Protein (Neg-Trace) mg/dL Urine Glucose (UA) (Negative) mg/dL Urine Ketones (Negative) mg/dL Urine Blood (Negative) Urine Nitrite (Negative) Ur Leukocyte Esterase (Negative) Urine RBC (0-2) /HPF Urine WBC (0-5) /HPF Ur Squamous Epith Cells (0-2) /HPF Urine Bacteria (None Seen) Hyaline Casts (0-2) /LPF Urine Yeast Influenza Type A (PCR) (Negative) Influenza Type B (PCR) (Negative) RSV RNA Qual (PCR) (Negative) SARS-CoV-2 RNA (RT-PCR) (Negative) Independent Interpretation I performed an independent interpretation of an: Plain X-Ray (Chest:Nodular opacity in the left base secondary to confluence artifact, focal atelectasis or small infiltrate.) Radiology Impression Discussion of test interpretation with radiology: I have reviewed the radiologist's reading. Discharge Plan Discharge Clinical Impression: Acute UTI Patient Disposition: Home, Self-Care Instructions: Urinary Tract Infection in Women (DC) Prescriptions: New sulfamethoxazole-trimethoprim [Bactrim DS] 800-160 mg tablet 1 tab PO Q12H Qty: 14 0RF No Action (DME) Accu-Chek Berna Plus test strp Strip See Rx Instructions .Route Qty: 300 8RF Rx Instructions: to check blood sugars five times a day ([facility] [place]) blood sugar diagnostic Strip See Rx Instructions .ROUTE .MEDSUPPLY Qty: 200 8RF Rx Instructions: FREESTYLE TEST STRIPS ([facility] [place]) hospital bed Kit See Rx Instructions .Route Qty: 1 0RF Rx Instructions: As directed ([facility]) pen needle, diabetic 32 gauge x 5/32 needle See Rx Instructions .Route Qty: 100 0RF Rx Instructions: use TID ([facility] [place]) insulin syringe-needle U-100 [BD Insulin Syringe Ultra-Fine] 1 mL 30 gauge x 1/2 syringe See Rx Instructions .ROUTE .MEDSUPPLY Qty: 100 3RF Rx Instructions: TID nystatin 100,000 unit/gram Cream 1 appl TOPICAL TID Protocol: Apply to: Apply to: UNDER BREASTS, BELLY FOLDS epoetin silverio 20,000 unit/mL Solution 20,000 unit SUBCUT TH Triamcinolone 0.1% Ointment ointment 1 appl topical TID PRN (Reason: diabetic psoriasis) sennosides [senna] 8.6 mg Tablet 17.2 mg PO BEDTIME 30 Days Qty: 30 3RF acetaminophen 325 mg Tablet 650 mg PO Q6H PRN (Reason: Pain (Scale Score 4-6)) 30 Days Qty: 3 3RF polyethylene glycol 3350 17 gram Powder In Packet 17 g PO DAILY 30 Days Qty: 30 3RF pantoprazole 20 mg Tablet,Delayed Release (Dr/Ec) 20 mg PO DAILY 30 Days Qty: 30 3RF ropinirole 0.25 mg tablet 0.25 mg PO BEDTIME 30 Days Qty: 30 2RF amlodipine 10 mg tablet 10 mg PO DAILY 30 Days Qty: 30 3RF bisacodyl 10 mg Suppository 10 mg MN DAILY PRN (Reason: Constipation) 30 Days Qty: 30 3RF sodium phosphates 19-7 gram/118 mL Enema 118 ml MN DAILY 30 Days Qty: 30 3RF Rx Instructions: Give if Dulcolax suppository is ineffective docusate sodium 100 mg Capsule 100 mg PO DAILY 30 Days Qty: 30 3RF insulin lispro [Humalog U-100 Insulin] 100 unit/mL solution 10 - 18 unit subcut TIDWM 30 Days Qty: 10 3RF Rx Instructions: Patient uses a sliding scale glucagon 1 mg Recon Soln 1 mg IM Q20M PRN (Reason: low BG) 30 Days Qty: 30 3RF Rx Instructions: until target blood sugar attained ondansetron 4 mg tablet,disintegrating 4 mg translingual TIDAC PRN (Reason: nausea) 30 Days Qty: 12 3RF insulin glargine [Lantus Solostar U-100 Insulin] 100 unit/mL (3 mL) insulin pen 20 unit subcut BEDTIME 30 Days Qty: 3 3RF ferrous fumarate 325 mg (106 mg iron) Tablet 325 mg PO DAILY 30 Days Qty: 30 3RF oxybutynin chloride 15 mg tablet extended release 24hr 15 mg PO DAILY 30 Days Qty: 30 3RF hydralazine 25 mg Tablet 25 mg PO TID 30 Days Qty: 30 3RF gabapentin 100 mg capsule 100 mg PO BID 30 Days Qty: 60 0RF metoprolol tartrate 25 mg tablet 12.5 mg PO BID Qty: 60 3RF Print Language: Hebrew
[2025-06-21 16:29] LABS: MANUAL DIFF FLAG NO
[2025-06-21 16:30] LABS: Hematocrit 28.6 % (37.0-47.0); Hemoglobin 9.4 g/dl (12.0-16.0); Imm Gran Abs Auto 0.05 X10*3/uL (0.00-0.03); Imm Gran Pct Auto 0.5 % (0.0-0.4); Lymphocytes Absolute Auto 1.4 X10*3/uL (1.2-4.9); Mean Corpuscular HGB Conc 32.9 g/dl (31.0-35.0); Mean Corpuscular Hemoglobin 32.2 pg (27.0-33.0); Mean Corpuscular Volume 97.9 fL (80.0-98.0); NRBC Abs Auto 0.000 X10*3/uL (0.0-0.012); NRBC Pct Auto 0.0 /100WBC (0.0-0.2); Platelet Count 175 X10*3/uL (160-400); Red Blood Count 2.92 X10*6/uL (4.20-5.50); White Blood Count 9.7 X10*3/uL (4.8-10.8)
[2025-06-21 16:48] LABS: Alanine Aminotransferase 9 U/L (0-31); Albumin Level 3.6 g/dL (3.5-5.0); Alkaline Phosphatase 123 U/L (39-117); Anion Gap 14 (12-20); Aspartate Amino Transferase 19 U/L (5-31); Blood Urea Nitrogen 37 mg/dL (9-16); Calcium 8.5 mg/dL (8.4-10.2); Carbon Dioxide 27 mmol/L (22-29); Chloride 101 mmol/L (96-108); Creatinine Clr Calc Pharmacy 25.8; Estimated Glomerular Filt Rate 14; Lipase 21 U/L (8-78); Potassium 3.9 mmol/L (3.3-5.1); Sodium 138 mmol/L (135-145); Total Protein 6.7 g/dL (6.5-8.0)
[2025-06-21 16:50] LABS: Troponin-I High Sensitivity 22.3 ng/L (<3.5-17.0)
[2025-06-21 17:11] LABS: Resp Syncy Virus RNA Qual PCR NEGATIVE (Negative); SARS COV2 PCR INHOUSE NEGATIVE (Negative)
[2025-06-21 18:30] VITALS: BP 147/54; PULSE 65; RESP 18; TEMP 37.4; O2SAT 99
[2025-06-21 18:51] LABS: Appearance Urine Cloudy; Glucose Urine UA 500 mg/dL (Negative); PH 6.0 (5.0-9.0); Specific Gravity - Urine 1.015 (1.005-1.025); UMIC TRIGGER UACC YES
[2025-06-21 19:09] LABS: UACC Culture Trigger YES
[2025-06-21 19:45] VITALS: BP 142/45; PULSE 60; RESP 16; O2SAT 99
[2025-06-21 20:34] LABS: Troponin-I High Sensitivity 22.9 ng/L (<3.5-17.0)
[2025-06-21] MEDS: Sulfamethox/Trimeth 800/160 TABLET 1 TAB PO (21:18)
[2025-06-21 22:07] VITALS: BP 150/62; PULSE 66; RESP 17; TEMP 37.1; O2SAT 99
[2025-06-21 22:08] VITALS: BP 150/62; PULSE 66; RESP 17; TEMP 37.1; O2SAT 99
== END 2025-06-21 22:09 | disposition home or self-care (01) ==
PROVIDERS: Emergency Provider Emergency Medicine
DX: N39.0 Urinary tract infection, site not specified (principal); E66.01 Morbid (severe) obesity due to excess calories; Z68.43 Body mass index [BMI] 50.0-59.9, adult; I12.0 Hypertensive chronic kidney disease with stage 5 chronic kidney disease or end stage renal disease; E11.22 Type 2 diabetes mellitus with diabetic chronic kidney disease; N18.6 End stage renal disease; K74.60 Unspecified cirrhosis of liver; Z03.818 Encounter for observation for suspected exposure to other biological agents ruled out; Z87.440 Personal history of urinary (tract) infections; Z79.899 Other long term (current) drug therapy
CPT/HCPCS: 36415; 71045; 80048; 80076; 81001; 82947; 83690; 84484; 85025; 87040; 87086; 87637; 93005; 99283; 99285

== ENCOUNTER → 2025-06-21 16:06 | Outpatient (BNV) | payer MEDICARE, MEDICAID, SELFPAY | PROVIDERS: Emergency Provider Emergency Medicine; Visit Provider Internal Medicine Cardiovascular Disease | DX: R94.31 Abnormal electrocardiogram [ECG] [EKG] (principal); R11.0 Nausea | CPT/HCPCS: 93010 ==

== ENCOUNTER → 2025-06-21 16:06 | Outpatient (BNV) | payer MEDICARE, MEDICAID, SELFPAY | PROVIDERS: Emergency Provider Emergency Medicine; Visit Provider Radiology Diagnostic Radiology | DX: R91.8 Other nonspecific abnormal finding of lung field (principal) | CPT/HCPCS: 71045 ==

== ENCOUNTER 2025-06-27 14:40 | Outpatient (AMB) | payer MEDICARE, MEDICAID, SELFPAY ==
--- OUTSIDE RECORDS SUMMARY | 2022-07-01 08:00 | XMS_ITS | Continuity of Care Document ---
Author Organization [facility] Address [address] [address] Phone Care Team Providers Care Healthcare Facility Administrator Name Role Phone Caleb URBINA, Fiona Unavailable Unavailable Advance Directives Directive Yes / No Effective Date File Name No Information Encounters Encounter Description Practice Location Reason(s) For Visit Diagnoses Date Provider [facility], [address], [id number], [place] tel:[phone] [facility] No Information 2021 Caleb Jaimes. [address] [place], [place], [id number], [place]. tel:[phone] Family History Family Member Type Diagnosis Age At Onset No Information Payers Payer name Insurance type Covered constitution party ID Authoriza tion(s) No Information Social History Type Description Quantity Date Captured Comments Sex Female Smoking Status No Information Chief Complaint And Reason For Visit No Information History Of Present Illness Encounter Date Complaint History Of Prese nt Illness No Information Instructions Date Instruction Additional Infor mation No Information Assessments Type Assessment Date No Information
--- OUTSIDE RECORDS SUMMARY | 2025-06-23 08:18 | XMS_ITS | Continuity of Care Document ---
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 Name Role Phone Eddi Ruiz MD, Lois Weiss Primary Care Physician [facility] [id number] Date(s): 06/22/25 - 06/23/[address] [address]- Encounter Diagnosis Nausea(Final) - 06/23/25 Constipation(Final) - 06/23/25 Discharge Disposition: A-D/C Home Attending Physician: Sudhakar Brand MD Admitting Physician: Sudhakar Brand MD Referring Physician: Not on Staff, Referring MD Encounter Type: Disch ES Allergies, Adverse Reactions, Alerts Substance Criticality Severity Reaction Reaction Severity Status MetFORMIN Hydrochloride Active Invokana Active Functional Status Functional Status Assessment Assessment Assessment Component Result Effecti ve Date Total Falls Risk Score 7 06/22 Immunizations Given and Recorded Vaccine Date Status Refusal Reason SARS-CoV-2 (COVID-19) mRNA BNT-162b2 vac 08/13/21 Recorded SARS-CoV-2 (COVID-19) Ad26 vaccine 01/29/21 Record ed Medications Colace sodium 100 mg oral capsule 100 mg, 1, capsule, By Mouth, Daily at bedtime, Maintenance, 08/03/23 5:08:00 PM EST Start Date: 08/03/23 Status: Ordered Medication Dispense Status: Completed Total Allowed Fills: 1 Fills Dispensed: 0 Dulcolax 10 mg rectal suppository 1 supp = 10 mg, Rectally, PRN as needed for constipation, 0 Refills, Maintenance, 03/20/23 2:36:00 PM EDT Start Date: 03/20/23 Status: Ordered Medication Dispense Status: Completed Total Allowed Fills: 1 Fills Dispensed: 0 Ferrous Fumarate = 325 mg, By Mouth, Daily in AM, 0 Refills, Maintenance, 03/20/23 2:39:00 PM EDT Start Date: 03/20/23 Status: Ordered Medication Dispense Status: Completed Total Allowed Fills: 1 Fills Dispensed: 0 Fleet Enema 19 gm-7 gm rectal enema 1 enema, Rectally, Daily, PRN as needed for constipation, Give if Dulcolax supp ineffective, Maintenance, 08/03/23 5:37:00 PM EST Start Date: 08/03/23 Status: Ordered Medication Dispense Status: Completed Total Allowed Fills: 1 Fills Dispensed: 0 Freestyle Lite Lancets See Instructions, # 200 each, Refills 5, Tot. Refills 5, Maintenance, use as directed for Type 2 Diabetes Mellitus, 05/04/25 3:39:00 PM EDT, Supply, 167.64, cm, 05/03/25 1:38:00 EDT, Height, 141.9, kg,04/30/25 22:19:00 EDT, Dry Weight Start Date: 05/04/25 Stop Date: 10/31/25 Status: Ordered Medication Dispense Status: Completed Quantity: 200.0 Unit: each Total Allowed Fills: 6 Fills Dispensed: 0 Freestyle Lite Monitor See Instructions, # 1 each, Refills 5, Tot. Refills 5, Maintenance, use as directed for Type 2 Diabetes Mellitus, 05/04/25 3:39:00 PM EDT, Supply, 167.64, cm, 05/03/25 1:38:00 EDT, Height, 141.9, kg, 04/30/25 22:19:00 EDT, Dry Weight Start Date: 05/04/25 Stop Date: 10/31/25 Status: Ordered Medication Dispense Status: Completed Quantity: 1.0 Unit: each Total Allowed Fills: 6 Fills Dispensed: 0 Freestyle Lite Test Strips See Instructions, # 200 each, Tot. Refills 5, Maintenance, use as directed for Type 2 Diabetes Mellitus, 05/04/25 3:40:00 PM EDT, Supply, 167.64, cm, 05/03/25 1:38:00 EDT, Height, 141.9, kg, 04/30/25 22:19:00 EDT, Dry Weight Start Date: 05/04/25 Stop Date: 06/03/25 Status: Ordered Medication Dispense Status: Completed Quantity: 200.0 Unit: each Total Allowed Fills: 6 Fills Dispensed: 0 Glucagon Inj = 1 mg, Intramuscular, PRN as needed for low BG, Maintenance, 08/03/23 5:22:00 PM EST, Injection Start Date: 08/03/23 Status: Ordered Medication Dispense Status: Completed Total Allowed Fills: 1 Fills Dispensed: 0 glucose 45% oral gel 1-2 tubes, By Mouth, Once, PRN as needed for low blood sugar, Give 2 tube for BG < 50 and pt conscious and able to swallow; Give 1 tube for BG 51-70 and pt conscious and able to swallow, Maintenance, 08/03/23 5:23:00 PM EST, Gel Start Date: 08/03/23 Status: Ordered Medication Dispense Status: Completed Total Allowed Fills: 1 Fills Dispensed: 0 hydrALAZINE 25 mg oral tablet 25 mg, 1, tablet, By Mouth, 3 times a day, Refills 0, Maintenance, 03/20/23 2:40:00 PM EDT Start Date: 03/20/23 Status: Ordered Medication Dispense Status: Completed Total Allowed Fills: 1 Fills Dispensed: 0 insulin glargine 100 u/ml subcutaneous solution = 20 units, Subcutaneous Injection, Daily at bedtime, # 15 mL, 0 Refills, Maintenance, 05/04/25 3:41:00 PM EDT, Injection, [facility], Partial fill upon patient request if the prescription is for a schedule II opioid drug., 167.64, cm, 05/03/25 1:38:00 EDT, Height, 141.9, kg, 04/30/25 22:19:00 EDT, Dry Weight Start Date: 05/04/25 Stop Date: 05/18/25 Status: Ordered Medication Dispense Status: Completed Quantity: 15.0 Unit: mL Total Allowed Fills: 1 Fills Dispensed: 0 insulin lispro 100 u/ml subcutaneous injection 10-18 units, Subcutaneous Injection, 3 times a day before meals, << Sliding Scale Comments >> 100 - 159 10 units Call if less than 70 160 - 219 12 units 220 - 279 14 units 280 - 339 16 units 340 - 399 18 units Call if greater than 400 << Sliding Scale Comments >>, # 15 mL, 0Refills, Maintenance, 05/04/25 3:41:00 PM EDT, Injection, [facility], Partial fill uponpatient request if the prescription is for a schedule II opioid drug., 167.64, cm, 05/03/25 1:38:00 EDT, Height, 141.9, kg, 04/30/25 22:19:00 EDT, Dry Weight Start Date: 05/04/25 Status: Ordered Medication Dispense Status: Completed Quantity: 15.0 Unit: mL Total Allowed Fills: 1 Fills Dispensed: 0 Milk of Magnesia 8% oral suspension 30 mL = 2.4 Gm, By Mouth, Daily, PRN as needed for constipation, Give if no BM x 3 days, Maintenance, 08/03/23 5:35:00 PM EST Start Date: 08/03/23 Status: Ordered Medication Dispense Status: Completed Total Allowed Fills: 1 Fills Dispensed: 0 MiraLax oral powder for reconstitution = 17 Gm, By Mouth, Daily in AM, 0 Refills, Maintenance, 03/20/23 2:44:00 PM EDT Start Date: 03/20/23 Status: Ordered Medication Dispense Status: Completed Total Allowed Fills: 1 Fills Dispensed: 0 Neurontin 100 mg oral capsule 100 mg, 1, capsule, By Mouth, 2 times a day, Refills 0, Maintenance, 03/20/23 2:40:00 PM EDT Start Date: 03/20/23 Status: Ordered Medication Dispense Status: Completed Total Allowed Fills: 1 Fills Dispensed: 0 Norvasc 10 mg oral tablet 10 mg, 1, tablet, By Mouth, Daily in AM, Refills 0, Maintenance, 03/20/23 2:38:00 PM EDT Start Date: 03/20/23 Status: Ordered Medication Dispense Status: Completed Total Allowed Fills: 1 Fills Dispensed: 0 nystatin topical [id number] u/gm cream 1 application, Topically, 3 times a day, Apply to abdominal fold, under breasts, and under arms, 0 Refills, Maintenance, 03/20/23 2:37:00 PM EDT Start Date: 03/20/23 Status: Ordered Medication Dispense Status: Completed Total Allowed Fills: 1 Fills Dispensed: 0 ocular lubricant - solution 1 drops, Eyes, Both, 3 times a day, Maintenance, 08/03/23 5:13:00 PM EST Start Date: 08/03/23 Status: Ordered Medication Dispense Status: Completed Total Allowed Fills: 1 Fills Dispensed: 0 ondansetron 4 mg oral tablet 1 tablet = 4 mg, By Mouth, Every 8 hours, PRN Nausea, 0 Refills, Maintenance, 03/20/23 2:38:00 PM EDT Start Date: 03/20/23 Status: Ordered Medication Dispense Status: Completed Total Allowed Fills: 1 Fills Dispensed: 0 oxybutynin 15 mg/24 hr oral tablet, extended release 1 tablet = 15 mg, By Mouth, Daily in AM, 0 Refills, Maintenance, 03/20/23 2:43:00 PM EDT Start Date: 03/20/23 Status: Ordered Medication Dispense Status: Completed Total Allowed Fills: 1 Fills Dispensed: 0 pantoprazole 20 mg oral delayed release tablet = 20 mg, By Mouth, Daily in AM, 0 Refills, Maintenance, 04/02/23 1:59:00 PM EDT, EC Tablet Start Date: 04/02/23 Status: Ordered Medication Dispense Status: Completed Total Allowed Fills: 1 Fills Dispensed: 0 Pen Waldo, 31 G x 5 mm BD Ultra Fine III See Instructions, # 100 each, Refills 5, Tot. Refills 5, Maintenance, use as directed for Type 2 Diabetes Mellitus, 05/07/25 5:47:00 AM EDT, Supply, 167.64, cm, 05/05/25 5:30:00 EDT, Height, 141.9, kg,04/30/25 22:19:00 EDT, Dry Weight Start Date: 05/07/25 Stop Date: 11/03/25 Status: Ordered Medication Dispense Status: Completed Quantity: 100.0 Unit: each Total Allowed Fills: 6 Fills Dispensed: 0 Pen Waldo, 31 G x 8 mm BD Ultra Fine III See Instructions, # 100 each, Refills 5, Tot. Refills 5, Maintenance, use as directed for Type 2 Diabetes Mellitus, 05/04/25 3:40:00 PM EDT, Supply, 167.64, cm, 05/03/25 1:38:00 EDT, Height, 141.9, kg,04/30/25 22:19:00 EDT, Dry Weight Start Date: 05/04/25 Stop Date: 10/31/25 Status: Ordered Medication Dispense Status: Completed Quantity: 100.0 Unit: each Total Allowed Fills: 6 Fills Dispensed: 0 Procrit 2000 u/mL = 20,000 units, Subcutaneous Injection, Every 7 days, Given on . Hold if HGB >10., 0 Refills, Maintenance, 03/20/23 2:44:00 PM EDT Start Date: 03/20/23 Status: Ordered Medication Dispense Status: Completed Total Allowed Fills: 1 Fills Dispensed: 0 rOPINIRole 0.25 mg oral tablet 1 tablet = 0.25 mg, By Mouth, Daily at bedtime, 0 Refills, Maintenance, 03/20/23 2:45:00 PM EDT Start Date: 03/20/23 Status: Ordered Medication Dispense Status: Completed Total Allowed Fills: 1 Fills Dispensed: 0 Senna 8.6 mg oral tablet 17.2 mg, 2, tablet, By Mouth, Daily at bedtime, Refills 0, Maintenance, 03/20/23 2:45:00 PM EDT Start Date: 03/20/23 Status: Ordered Medication Dispense Status: Completed Total Allowed Fills: 1 Fills Dispensed: 0 Triamcinolone 0.1% ointment 1 application, Topically, 3 times a day, PRN as needed for diabetic psoriasis, Maintenance, :09:00 PM EST Start Date: 08/03/23 Status: Ordered Medication Dispense Status: Completed Total Allowed Fills: 1 Fills Dispensed: 0 Tylenol 325 mg oral tablet 650 mg, 2, tablet, By Mouth, Every 6 hours, PRN, not to exceed 3000 mg/day, Refills 0, Maintenance,as needed for pain or fever, 03/20/23 2:34:00 PM EDT Start Date: 03/20/23 Status: Ordered Medication Dispense Status: Completed Total Allowed Fills: 1 Fills Dispensed: 0 Ventolin 90 mcg Inhaler 2, puffs, Inhalation, Every 4 hours, PRN, Refills 0, Maintenance, 03/20/23 2:35:00 PM EDT Start Date: 03/20/23 Status: Ordered Medication Dispense Status: Completed Total Allowed Fills: 1 Fills Dispensed: 0 Mental Status Mental Status Assessment Assessment Assessment Component Result Effecti ve Date Norma coma score total 15 Mental Status Assessment Assessment Assessment Component Result Effecti ve Date Norma coma score total 15 Mental Status Assessment Assessment Assessment Component Result Effecti ve Date Monitor coma score total 15 Body height 170 06/22/25 Body weight 155 06/22/25 Scale weight (physic al object) Patient/family stated 06/22/25 Dry body weight Measured 155 Problem List Condition Confirmation Course Effective Dates Status Health St atus Informant Bronchial asthma Confirmed Active Diabetes mellitus Confirmed Active Diabetic neuropathy Confirmed Active Hypertension Confirmed Active Low back pain Confirmed Active Obesity associated disorder Confirmed Active Obesity associated disorder Confirmed Active Severe obesity Confirmed Active Spinal stenosis of lumbar region Confirmed Active Vital Signs Most recent to oldest [Reference Range]: 1 2 3 Height 170 cm (06/23/25 12:29 AM) 170 cm (06/22/25 10:37 PM) Weight 155 kg (06/23/25 12:29 AM) 155 kg (06/22/25 10:37 PM) Oxygen Saturation [94-100 %] 99 % (06/23/25 6:00 AM) 99 % (06/23/25 2:00 AM) 99 % (06/23/25 12:29 AM) Pulse Rate [55-90 bpm] 61 bpm (06/23/25 6:00 AM) 64 bpm (06/23/25 2:00 AM) 62 bpm (06/23/25 12:29 AM) Body Mass Index [18.5-24.99 kg/m2] 53.63 kg/m2 *H* (06/23/25 12:29 AM) Blood Pressure [90-138/55-84 mm Hg] 147/53mm Hg *H* (06/23/25 6:00 AM) 155/61mm Hg *H* (06/23/25 2:00 AM) 159/62mm Hg *H* (06/23/25 12:29 AM) Respiratory Rate [16-30 br/min] 16 br/min (06/23/25 6:00 AM) 16 br/min (06/23/25 2:00 AM) 16 br/min (06/23/25 12:29 AM) Temperature [96.8-100.4 DegF] 98.6 DegF (06/23/25 6:00 AM) 99.3 DegF (06/23/25 2:00 AM) 99.0 DegF (06/23/25 12:29 AM) Mode of Delivery (Oxygen) Room air (06/23/25 6:00 AM) Room air (06/23/25 2:00 AM) Room air (06/23/25 12:29 AM) Blood pressure sites Arm, right (06/23/25 6:00 AM) Arm, right (06/23/25 2:00 AM) Arm, right (06/23/25 12:29 AM) Temperature Route Oral (06/23/25 6:00 AM) Oral (06/23/25 2:00 AM) Oral (06/23/25 12:29 AM) Dry Weight 155 kg (06/23/25 12:29 AM) 155 kg (06/22/25 10:37 PM) Weight Obtained Via Patient/family state d (06/22/25 10:37 PM) Social History Social History Type Response Smoking Status Never (less than 100 in lifetime) entered on: 03/30/21 Sex Sex Representation Female (finding) Status N/A Patient Care team information Care Team Personnel Name: Thea Chan RN Position: S RN Member Role: Primary Care Nurse Name: Jessica Coronado RN Position: [facility] OB RN Member Role: Primary Care Nurse Name: Krystal Moon Position: S RN Member Role: Primary Care Nurse Name: Montserrat Ulrich RN Position: S RN Member Role: Primary Care Nurse Name: Sudhakar Carrera RN Position: S RN Member Role: Primary Care Nurse Name: Karina Ayala LPN Position: S RN Member Role: Primary Care Nurse Name: Lana Ozuna RN Position: S RN Member Role: Primary Care Nurse Name: Shawnee Whaley RN Position: S RN Member Role: Primary Care Nurse Name: Emilee Pereira NP Position: [facility] Associate Professional Member Role: Lifetime Consulting Provider Address: [address] [facility] [place] [address]- Telecom: Name: Star Serrato MD Position: [facility] Renal MD Member Role: Lifetime Consulting Physician Address: [address] [facility] [place] [address]- [place] Telecom: Name: Alexei Singletary DO Position: [facility] Renal MD Member Role: Lifetime Consulting Physician Address: [address] [facility] [place] [address]- Telecom: Name: Gregor Zuleta RN Position: [facility] RN Member Role: Primary Care Nurse Name: Sakshi Cazares RN Position: [facility] RN Member Role: Primary Care Nurse Name: Rubina Kinght RN Position: S RN Member Role: Primary Care Nurse Name: Roque Marrero RN Position: S RN Member Role: Primary Care Nurse Name: Nelson Lauren RN Position: [facility] RN Member Role: Primary Care Nurse Name: Hever Bassett MD Position: [facility] Renal MD Member Role: Lifetime Consulting Physician Address: [address] [facility] [place] [address]- Telecom: Name: Maren Fieror RN Position: [facility] RN Member Role: Primary Care Nurse Name: Carlita Woods RN Position: S RN Member Role: Primary Care Nurse Name: Mala Mccracken RN Position: S RN Member Role: Primary Care Nurse Name: Eddi Ruiz MD , Lois Weiss Position: Reference Physician Member Role: PCP Address: [address] [place] [address]- [place] Telecom: Name: Sonja Hernandez LPN Position: S RN Member Role: Primary Care Nurse Name: Susannah Euceda RN Position: S RN Member Role: Primary Care Nurse Care Team Related Persons Name: RADHA PHAN Name: FENG WANG Name: NINO WANG Insurance Providers Guarantor name: ALEX MADSEN Health Plan Information #: 1 [facility] Payer Identifier: NA Member Number: [id number] Group Number: [id number] Subscriber Identifier: [id number] Relationship to Subscriber: self Coverage Type: MEDICARE Coverage Verification Date: NA Telecom: NA Address: NA Health Plan Information #: 2 Payer: [facility] Payer Identifier: NA Member Number: [id number] Group Number: [id number] Subscriber Identifier: [id number] Relationship to Subscriber: self Coverage Type: MEDICAID Coverage Verification Date: NA Telecom: NA Address: NA
[2025-06-27 15:02] VITALS: BP 148/82; PULSE 64; O2SAT 98
--- NOTE | 2025-06-27 15:02 | A.OFFVIS_ITS ---
Vital Signs 06/27/25 15:02 BP 148/82 H Pulse 64 Pulse Oximetry (%) 98 Intake Visit Reasons: [facility] Reff/ Bacteremia Allergies metformin (METFORMIN) Allergy (Severe, Verified 06/27/25 15:03) HIVES heparin Allergy (Intermediate, Verified 06/27/25 15:03) Itching canagliflozin (From Invokana) Allergy (Verified 06/27/25 15:03) Hives HPI Comments Details: History of Present Illness The patient is a 65-year-old female presenting with a urinary tract infection and bacteremia. During hospitalization, she had bacteremia due to coagulase- negative Staphylococcus, which was recognized as a contaminant. She was treated for the urinary tract infection with ceftriaxone. However, an unplanned transition to trimethoprim-sulfamethoxazole occurred, which was not warranted for her condition, leading to its discontinuation. Overall, the patient reports no additional symptoms and notes resolution of her initial urinary symptoms under the specified treatment regime. Her clinical course remains stable, and she manages well without a PICC line, while undergoing dialysis. Review of Systems - Constitutional: Denies fever - Respiratory: Denies cough or difficulty breathing - Cardiovascular: Denies chest pain - Gastrointestinal: Denies nausea or vomiting - Genitourinary: Denies new or ongoing urinary symptoms - Neurological: Denies headaches or dizziness - Endocrine: Denies new weight loss or gain Physical Exam - Vital Signs- Stable - Respiratory- Lungs are clear - Cardiovascular- Heart rhythm is regular - Gastrointestinal- Abdomen soft, non-tender Results Plan Patient was informed and verbally consented to the use of an ambient scribe for clinic note documentation during this visit. 1. Bacteremia Due To Coagulase-Negative Staphylococcus Species The bacteremia with coagulase-negative Staphylococcus has been classified as a contaminant, requiring no further intervention. 2. Urinary Tract Infection Uti Ceftriaxone was commenced for the urinary tract infection, with trimethoprim- sulfamethoxazole erroneously administered and then stopped. The patient completed the course of antibiotics without recurrence of symptoms; hence, no further treatment is currently indicated unless symptoms return. Discussion Notes During the consultation, I outlined the identified issues with the patient, particularly the bacteremia due to coagulase-negative Staphylococcus, recognized as a contaminant, which did not require specific treatment. For the UTI, the patient commenced antibiotics with ceftriaxone, with improper substitution to Bactrim, which was rectified. I confirmed completion of her treatment course, emphasizing the absence of symptoms and the stability of her condition. No further intervention was needed for the bacteremia. Follow-up was advised to be symptom-dependent with no immediate plans for additional tests or treatments unless clinical indications arise. Medical Decision Making In evaluating the patient?s presentation, I assessed the diagnosis of bacteremia associated with coagulase-negative Staphylococcus as a contaminant, which required no intervention. This finding was consistent with a lack of systemic infection symptoms. For the UTI, the initial treatment with ceftriaxone was appropriate. She wasredirected her to trimethoprim-sulfamethoxazole, which was subsequently halted to ensure the correctness of treatment focus. The completed antibiotic regimen corresponds with the patient?s reported symptomatic improvement. Monitoring will continue on a needed basis, reflecting her medical priority alignment. Patient Instructions - Monitor for any recurrence of urinary symptoms, such as burning on urination, frequency, or urgency. - No need for immediate follow-up unless symptoms return. - Report any fever, chills, or new symptoms to the healthcare provider. - Continue dialysis as prescribed. - Attend routine medical appointments and consultations for dialysis management. [facility] Medical History (Updated 06/28/25 @ 13:48 by Paco Ignacio MD) HTN (hypertension) HLD (hyperlipidemia) Frequent UTI Anemia Acute on chronic diastolic (congestive) heart failure Type 2 diabetes mellitus with obesity Clostridium difficile diarrhea Morbid obesity Detrusor dysfunction Bladder outlet obstruction Esophagitis CKD (chronic kidney disease) stage 4, GFR 15-29 ml/min Hypothyroidism IBS (irritable bowel syndrome) Surgical History History of tubal ligation Family History Father Diabetes Mother Diabetes Hypertension Breast cancer Family/Other Breast cancer Uterine cancer Social History Household Members: None Housing: Apartment Do you presently have visiting nurse or other home services: Yes ([facility]) Alcohol intake: never Comment: bedbound at baseline Patient Tobacco Use Status: Former Tobacco user e-Cigarette/Vaping Use: Never Used Second Hand Smoke Exposure: No Advance Directives Date on File: 10/09/20 service: No Current occupational status: disabled Cognitive needs: No Hearing needs: No Vision needs: Yes Physical Exam Vital Signs: Last Vital Signs Pulse 64 06/27/25 15:02 BP 148/82 H 06/27/25 15:02 Pulse Ox 98 06/27/25 15:02 Assessment & Plan Assessment & Plan (1) Acute kidney injury superimposed on chronic kidney disease: Code(s): N17.9 - Acute kidney failure, unspecified; N18.9 - Chronic kidney disease, unspecified Category: Medical Plan as above Coding Level of Care Code Est Pt Level 3 (72127) Diagnoses Acute kidney injury superimposed on chronic kidney disease N17.9; N18.9
--- OUTSIDE RECORDS SUMMARY | 2025-06-27 19:02 | XMS_ITS | Clinical Summary ---
Author Organization [facility] Address [address] [facility] [address] [place] [address] Phone Care Team Providers Care Outside Sales Manager Name Role Phone Terry Ochoa MD Primary Care Provider [phone] Allergies Active Allergy Reactions Criticality Noted Date [...] Encounters Date Type Department Care Team Description 06/20/2025 Orders Only [facility] [address] [place] [address] Alan Mccarthy MD 06/20/2025 Treatment [facility] [address] [place] [address] Benita Garrison FNP-C End stage renal disease; Dependence on renal dialysis 06/08/2025 Orders Only [facility] [address] [place] [address] Alan Mccarthy MD 06/04/2025 Orders Only [facility], [address] [place] [address] Provider, Albert Ordering 05/11/2025 Orders Only [facility] [address] [place] [address] Alan Mccarthy MD 05/11/2025 Treatment [facility], [address] [place] [address] Benita Garrison FNP-C End stage renal disease; [...] Procedure Name Priority Date/Time Associated Diagnosis Comments HEMATOLOGY Routine 06/20/2025 IMMUNO CHEMISTRY Routine 06/08/2025 [facility] [...] Relevant to Health Maintenance Results * (ABNORMAL) HEMATOLOGY (06/20/2025) Only the most recent of3 resultswithin the time period is included. Hemoglobin 8.8(L) 12.0 - 16.0 g/dL [facility] Hemoglobin x 3 26.4(L) 36.0 - 48.0 % [facility] 06/20/2025 06/21/2025 8:2 7 AM EDT Narrative [facility] - 06/21/2025 Unless otherwise specified, test(s) performed at: [facility], [address] [place], [place] [id number] BRAIDED RUG MAKER: Michael Fields M.D. For any questions, please call customer service at FREQUENCY:OTHER Resulting Agency Comment Specimen source: Blood us Alan Mccarthy MD LAB BLOOD ORDERABLES Final Re sult [facility] See order comments or contact performing lab Unknown, [place] * IMMUNO CHEMISTRY (06/08/2025) Only the most recent of3 resultswithin the time period is included. Hepatitis B Surface Ab <10 mIU/mL [facility] Comment: Reference Range: <10 mIU/mL Non-Immune >=10 mIU/mL Immune The magnitude of the measured result above 10 mIU/mL is not indicative of the total amount of antibody present. Custom Exception 06/08/2025 06/09/2025 11: 40 AM EDT Narrative [facility] - 06/09/2025 Unless otherwise specified, test(s) performed at: [facility], [address] [place], [place] [id number] BRAIDED RUG MAKER: Michael Fields M.D. For any questions, please call customer service at FREQUENCY:OTHER Resulting Agency Comment Specimen source: Serum Alan Mccarthy MD LAB BLOOD ORDERABLES Final Re sult Performing Organization Address [facility] de Phone Number [facility] See order comments or contact performing lab Unknown, [place] * [facility] (06/04/2025) Only the most recent of2 resultswithin the time period is included. Pathologist [facility] % Urea Reduction 70 65 - 80 % [facility] 06/04/2025 06/05/2025 9:0 8 AM EDT Narrative [facility] - 06/05/2025 Unless otherwise specified, test(s) performed at: [facility], [address] [place] [id number] BRAIDED RUG MAKER: Michael Fields M.D. For any questions, please call customer service at FREQUENCY:OTHER Resulting Agency Comment Specimen source: Plasma Alan Mccarthy MD LAB BLOOD ORDERABLES Final Re sult Performing Organization Address [facility] de Phone Number [facility] See order comments or contact performing lab Unknown, [place] * POST CHEMISTRY (06/04/2025) Only the most recent of2 resultswithin the time period is included. Pathologist [facility] BUN Post Dialysis 18 6 - 19 mg/dL [facility] 06/04/2025 06/05/2025 9:0 8 AM EDT Narrative [facility] - 06/05/2025 Unless otherwise specified, test(s) performed at: [facility], [address] [place] [address] BRAIDED RUG MAKER: Michael Fields M.D. For any questions, please call customer service at FREQUENCY:OTHER Resulting Agency Comment Specimen source: Plasma Alan Mccarthy MD LAB BLOOD ORDERABLES Final Re sult Performing Organization Address [facility] de Phone Number [facility] See order comments or contact performing lab Unknown, [place] * (ABNORMAL) [facility] (06/04/2025) Only the most recent of5 resultswithin the time period is included. Pathologist [facility] BUN 60(H) 6 - 19 mg/dL [facility] 06/04/2025 06/05/2025 10: 33 AM EDT Narrative [facility] - 06/05/2025 Unless otherwise specified, test(s) performed at: [facility], [address] [place] [address] BRAIDED RUG MAKER: Michael Fields M.D. For any questions, please call customer service at FREQUENCY:OTHER Resulting Agency Comment Specimen source: Serum Alan Mccarthy MD LAB BLOOD ORDERABLES Final Re sult Performing Organization Address [facility]/ZIP Co de Phone Number [facility] See order comments or contact performing lab Unknown, [place] * [facility] Results (06/04/2025) Only the most recent of2 resultswithin the time period is included. Pathologist [facility] eKdrt/V 1.46 [facility] eKt/V Gotch 1.46 [facility] e Center nPCR_HD 0.97 [facility] [place] PCR 71.63 [facility] spKt/V (Daugirdas II) 1.50 [facility] eKt/V ([place]) 1.31 [facility] eNPCR 0.93 [facility] spKt/V Gotch 1.67 [facility] WSTDKT/V 2.4 [facility] 06/04/2025 06/04/2025 [facility] Ordering Provider LAB BLOOD ORDERABLES Final Result [facility] Contact Performing lab Unknown, [place] * (ABNORMAL) SPECIAL CHEMISTRY (05/30/2025) Only the most recent of2 resultswithin the time period is included. Pathologist [facility] Vitamin D, 25-OH, Total 10.2(L) 30.0 - 100.0 ng/mL [facility] Comment: Please Note: Effective June 28, 2023, the methodology for this test has changed to the [employer]. 05/30/2025 05/31/2025 10: 28 AM EDT Narrative [facility] - 06/01/2025 Unless otherwise specified, test(s) performed at: [facility], [address] [place] [address] BRAIDED RUG MAKER: Michael Fields M.D. For any questions, please call customer service at FREQUENCY:MONTHLY Resulting Agency Comment Specimen source: Serum Alan Mccarthy MD LAB BLOOD BANK TEST ORDERABLE S Final Result [facility] See order comments or contact performing lab Unknown, [place] * TRACE ELEMENTS (05/30/2025) Only the most recent of2 resultswithin the time period is included. Pathologist [facility] Aluminum <5 0 - 10 mcg/L [facility] Comment: This test was developed and its performance characteristics determined by [facility]. It has not been cleared or approved by the FDA. The laboratory is regulated under CLIA as qualified to perform high complexity testing. This test is used for clinical purposes. It should not be regarded as investigational or for research. 05/30/2025 05/31/2025 9:1 1 AM EDT Narrative [facility] - 05/31/2025 Unless otherwise specified, test(s) performed at: [facility], [address] [place] [id number] BRAIDED RUG MAKER: Michael Fields M.D. For any questions, please call customer service at FREQUENCY:MONTHLY Resulting Agency Comment Specimen source: Serum Alan Mccarthy MD LAB BLOOD ORDERABLES Final Re sult [facility] See order comments or contact performing lab Unknown, [place] * (ABNORMAL) Hemoglobin A1c (02/04/2022 11:45 AM EDT) Hemoglobin A1C 10.2(H) (4.0-5.6) % [facility] Comment: MONITORING: In known diabetic patients, hemoglobin A1c targets should be discussed with health care provider. DIAGNOSTIC USE: The [place] Diabetes Association (ADA) and the World Health [...] Supplement 1 Testing performed or reported by [facility], a Service of [facility], [address] [place] [address] Jaquelin Grayson MD, Barrel Lathe Operator Inside [facility]# [id number] 02/04/2022 11:4 5 AM EDT 02/04/2022 6:50 PM EDT Tony Dejesus MD LAB BLOOD ORDERABLES Final Re sult [facility] from Last 3 Months or Most Recently Relevant to Health Maintenance Insurance [place] [facility] Medicare Member Subscriber Plan / Payer (Ef fective 2020-Present) Name:Isabel Carcamo Relation to Subscriber:Self Name:Isabel Carcamo Payer ID:[id number] (NAIC) Type:Not on file Address: [place] [id number] Medicaid [place] [facility] Medicare [facility] Medicare Medicaid [place] Care Teams Outside Sales Manager Relationship Specialty Start Date End Date Terry Ochoa MD [address] [place] PCP - General Internal Medicine 07/21/23
--- OUTSIDE RECORDS SUMMARY | 2025-06-27 19:02 | XMS_ITS | Encounter Summary ---
Author Organization [facility] Address [address] [place] [address] Phone Care Team Providers Care Hydro Technician Name Role Phone Terry Ochoa MD Primary Care Provider [phone] Encounter Details Date Type Department Care Team (Late st Contact Info) Description 02/05/2021 Documentation Only [facility] [address] [place] [id number] Tawny Churchill [place] Social History Tobacco Use [...] 204 mg/dL BUN 36 mg/dL eGFR Non-Afr Taiwanese 30 eGFR 35 Sodium 141 mEq/L Potassium 4.5 mEq/L Chloride 111 Carbon Dioxide 18 mmol/L Calcium 8.5 mg/dL Phosphorus, Serum 4.4 mg/dL Albumin (Blood) 2.1 g/dL Creatinine 1.8 mg/dL Anion Gap 12 Blood specimen (specimen) 08/21/2020 Historical Provider LAB BLOOD ORDERABLES Alyssa l Result documented in this encounter Visit Diagnoses Not on filedocumented in this encounter Care Teams Hydro Technician Relationship Specialty Start Date End Date Terry Ochoa MD [address] [place], [place] PCP - General Internal Medicine 07/21/23 documented as of this encounter
--- OUTSIDE RECORDS SUMMARY | 2025-06-27 19:03 | XMS_ITS | Encounter Summary ---
Author Organization [facility] Address [address] [place] [address] Care Team Providers Care Marine Railway Operator Name Role Phone Terry Ochoa MD Primary Care Provider [phone] Encounter Details Date Type Department Care Team ([facility] st Contact Info) Description 11/17/2021 Orders Only [facility] DIPLOMATIC OFFICER [address] [facility] [address] [place] [address] Lois Carreno MD [address] [place] [address] Social History Tobacco Use Types Packs/Day Years [...] years. * Result Encounter Note - Ly Martin RN - 11/17/2021 4:35 PM EDT Problem list updated. Pap letter sent. documented in this encounter Plan of Treatment Not on file documented as of this encounter Procedures * Due to [facility] law, this organization might not be sharing negative HIV tests. Procedure Name Priority Date/Time Associated Diagnosis Comments THINPREP TIS PAP AND HPV RNA, HR E6/E7, TMA Routine 11/17/2021 4:35 PM EDT Screening for malignant neoplasm of cervix documented in this encounter Results * Due to [facility] law, this organization might not be sharing negative HIV tests. * THINPREP TIS PAP AND HPV RNA, HR E6/E7, TMA (11/17/2021 4:35 PM EDT) Clinical information Postmenopausal [facility] Date last menstrual period POSTMENOPAUSAL [facility] Date of previous PAP smear NONE GIVEN [facility] Date of previous biopsy NONE GIVEN [facility] Specimen source (Cvx/Vag) None given [facility] Statement of Adequacy (Cvx/Vag) Satisfactory for evaluation. Endocervical/correia sformation zone component present. [facility] Cytology, Pap Smear Negative for intraepithelial lesion or malignancy. [facility] Cytology study comment (Cvx/Vag) This Pap test has been evaluated with computer assisted technology. [facility] Disc Recordist (Cvx/Vag) [facility](ASCP) CT screening location: [place] [address] [facility] COMMENT SEE NOTE [facility] Comment: EXPLANATORY NOTE: The Pap is a [...] HPV MRNA E6/E7 Not Detected Not Detected [facility] Comment: Methodology: Form Grader Operator-Mediated Amplification This assay detects E6/E7 viral messenger RNA (mRNA) from 14 high-risk HPV types (16,18,31,33,35,39,45,51,52,56,58,59,66,68). The analytical performance characteristics of this assay have been determined by [facility]. The modifications have not been cleared or approved by the FDA. This assay has been validated pursuant to the CLIA regulations and is used for clinical purposes. For additional information, please refer to http://education.Vidyo/faq/CVD501t2 (This link if provided for information/ educational purposes only.) 11/17/2021 4:35 PM EDT 11/17/2021 9:57 PM EDT Narrative Resulting Agency Comment [id number] us Lois Carreno MD PATHOLOGY-INTERFACED Final Resul t Performing Organization Address City/State/[facility] Co de Phone Number [facility] [address] [place] [address] documented in this encounter Visit Diagnoses Diagnosis Screening for malignant neoplasm of cervix Screening for malignant neoplasm of the cervix documented in this encounter Care Teams Marine Railway Operator Relationship Specialty Start Date End Date Terry Ochoa MD [facility] [place] [address] [place] [address] PCP - General Internal Medicine 09/30/21 documented as of this encounter
--- OUTSIDE RECORDS SUMMARY | 2025-06-27 19:03 | XMS_ITS | Clinical Summary ---
Author Organization [facility] Address [address] [place] [address] Care Team Providers Care Cycling Instructor Name Role Phone Terry Ochoa MD Primary Care Provider [phone] Allergies No known active allergies Medications amLODIPine [...] time each day Active epoetin silverio (PROCRIT/EPOGEN) 06088 UNIT/ML injection Inject 20,000 Units under the [...] Monovalent, 30 mcg/0.3 ml 08/13/2021 Covid-19, Vector-nr (Tiange), 0.5 Ml 01/29/2021 Covid-19, mRNA (Pfizer Pre [...] Zoster (Zostavax) Discontinued Procedures * Due to [employer] law, this organization might not be sharing [...] for evaluation. Endocervical/correia sformation zone component present. [facility] Cytology, Pap Smear Negative for intraepithelial lesion or malignancy. [facility] Cytology study comment (Cvx/Vag) This Pap test has been evaluated with computer assisted technology. [facility] Exchange Consultant (Cvx/Vag) [address](ASCP) CT screening location: [place] [address] [facility] COMMENT SEE NOTE [facility] Comment: EXPLANATORY NOTE: The Pap is [...] HPV MRNA E6/E7 Not Detected Not Detected [facility] Comment: Methodology: Email Production Specialist-Mediated Amplification This assay detects E6/E7 viral messenger RNA (mRNA) from 14 high-risk HPV types (16,18,31,33,35,39,45,51,52,56,58,59,66,68). The analytical performance characteristics of this assay have been determined by [employer]. The modifications have not been cleared or approved by the FDA. This assay has been validated pursuant to the CLIA regulations and is used for clinical purposes. For additional information, please refer to http://education.Thoughtful Movers.[employer]/faq/EPM482e4 (This link if provided for information/ educational purposes only.) 11/17/2021 4:35 PM EDT 11/17/2021 9:57 PM EDT Narrative Resulting Agency Comment [id number] us Lois Carreno MD PATHOLOGY-INTERFACED Final Resul t [facility] [address] [place] [address] from Last 3 Months or Most Recently Relevant to Health Maintenance Insurance MEDICAID [employer] MEDICARE Care Teams Cycling Instructor Relationship Specialty Start Date End Date Terry Ochoa MD [facility] [place] [address] [place] [address] PCP - General Internal Medicine 09/30/21
--- OUTSIDE RECORDS SUMMARY | 2025-06-27 19:03 | XMS_ITS | Clinical Summary ---
Author Organization [facility] Address [address] [place] [id number] Phone Care Team Providers Care Exercise Science Internship Name Role Phone Alexi Lynne MD Primary Care Provider [phone] Allergies No known active allergies Medications hydrALAZINE [...] PM EDT): During her prolonged stay at [place] she required 2 L of oxygen. At [...] PM EDT): During her prolonged stay at [place] she required 2 L of oxygen. At [...] PM EDT): During her prolonged stay at [place] she required 2 L of oxygen. At [...] PM EDT): During her prolonged stay at [place] she required 2 L of oxygen. At [...] PM EDT): During her prolonged stay at [place] she required 2 L of oxygen. At [...] PM EDT): During her prolonged stay at [place] she required 2 L of oxygen. At [...] PM EDT): During her prolonged stay at [place] she required 2 L of oxygen. At [...] AM EDT): During her prolonged stay at [place] she required 2 L of oxygen. At [...] PM EDT): During her prolonged stay at [place] she required 2 L of oxygen. Since [...] PM EDT): During her prolonged stay at [place] she required 2 L of oxygen. Since [...] AM EDT): During her prolonged stay at [place] she required 2 L of oxygen. Since [...] AM EDT): During her prolonged stay at [place] she required 2 L of oxygen. Since [...] PM EDT): During her prolonged stay at [place] she required 2 L of oxygen. Since [...] PM EDT): During her prolonged stay at [place] she required 2 L of oxygen. Since [...] PM EDT): During her prolonged stay at [place] she has required 2 L of oxygen. [...] during this hospitalization. -- Requested records from [facility] and Dr [place] of [place]; re-requested records on 04/19 Assessment & Plan (04/21/2025 4:16 PM EDT): Apparently was started on a 30-day course of treatment with ciprofloxacin in mid February. No findings to suggest active infection at this time. No antibiotics prescribed during this hospitalization. -- Requested records from [facility] and Dr [place] of [place]; re-requested records on 04/19 Assessment & Plan (04/20/2025 6:23 PM EDT): Apparently was started on a 30-day course of treatment with ciprofloxacin in mid February. No findings to suggest active infection at this time. No antibiotics prescribed during this hospitalization. -- Requested records from [facility] and Dr [place] of [place]; re-requested records on 04/19 Assessment & Plan (04/19/2025 11:51 AM EDT): Apparently was started on a 30-day course of treatment with ciprofloxacin in mid February. No findings to suggest active infection at this time. No antibiotics prescribed during this hospitalization. -- Requested records from [facility] and Dr Yu[place] of [place]; re-requested records on 04/19 Assessment & Plan (04/18/2025 5:59 PM EDT): Apparently was started on a 30-day course of treatment with ciprofloxacin in february. No findings to suggest active infection at this time. No antibiotics prescribed during this hospitalization. -- Requested records from [facility] -- Continue to hold on further antibiotics. Assessment & Plan (04/17/2025 2:27 PM EDT): Apparently was started on a 30-day course of treatment with ciprofloxacin in mid February. No findings to suggest active infection at this time. No antibiotics prescribed during this hospitalization. -- Requested records from [facility] -- Continue to hold on further antibiotics. Assessment & Plan (04/16/2025 8:33 AM EDT): Apparently was started on a 30-day course of treatment with ciprofloxacin in mid February. No findings to suggest active infection at this time. No antibiotics prescribed during this hospitalization. -- Requested records from [facility] -- Continue to hold on further antibiotics. Assessment & Plan (04/15/2025 11:22 AM EDT): Apparently was started on a 30-day course of treatment with ciprofloxacin in mid February. No findings to suggest active infection at this time. No antibiotics prescribed during this hospitalization. -- Requested records from [facility] -- Continue to hold on further antibiotics. Assessment & Plan (04/14/2025 6:39 PM EDT): Apparently was started on a 30-day course of treatment with ciprofloxacin in mid February. No findings to suggest active infection at this time. No antibiotics prescribed during this hospitalization. -- Requested records from [facility] -- Continue to hold on further antibiotics. Assessment & Plan (04/13/2025 4:02 PM EDT): Apparently was started on a 30-day course of treatment with ciprofloxacin in mid February. No findings to suggest active infection at this time. No antibiotics prescribed during this hospitalization. -- Requested records from Dr. Paul Lebron in [place] -- Continue to hold on further antibiotics. Assessment & Plan (04/12/2025 3:56 PM EDT): Apparently was started on a 30-day course of treatment with ciprofloxacin in mid February. No findings to suggest active infection at this time. No antibiotics prescribed during this hospitalization. -- Requested records from Dr. Paul Lebron in [place] -- Continue to hold on further antibiotics. Assessment & Plan (04/11/2025 3:37 PM EDT): Apparently was started on a 30-day course of treatment with ciprofloxacin in mid February. No findings to suggest active infection at this time. No antibiotics prescribed during this hospitalization. -- Requested records from Dr. Paul Lebron in [place] -- Continue to hold on further antibiotics. Assessment & Plan (04/10/2025 4:52 PM EDT): Apparently was started on a 30-day course of treatment with ciprofloxacin in mid February. No findings to suggest active infection at this time. -- Requested records from Dr. Paul Lebron in [place] -- Hold on additional antibiotics for now Assessment & Plan (04/09/2025 1:32 PM EDT): Apparently was started on a 30-day course of treatment with ciprofloxacin in mid February. No findings to suggest active infection at this time. -- Requestin records from Dr. Paul Lebron in [place] -- Hold on additional antibiotics for now Assessment & Plan (04/07/2025 4:33 PM EDT): Apparently was started on a 30-day course of treatment with ciprofloxacin in mid February. No findings to suggest active infection at this time. -- Will try to obtain records from Dr. Paul Lebron in [place] on Wednesday -- Hold on additional antibiotics for now ESRD (end stage renal disease) 04/05/2025 Assessment & Plan (04/27/2025 9:15 AM EDT): - Patient has been cleared at [facility] unit to start Wednesday at 6:30 AM she can be discharged as long as she has transportation available. Details of outpatient washroom attendant requirements being addressed. -For now we will continue with inpatient HD Wednesday regimen. Tolerating dialysis treatment well, potentially will be DC planning for outpt HD at [facility] [place] next Wednesday. - Continue fluid restriction 1.2 L daily max. Fortunately reaching dry weight. - hepatitis B non-reactive. Will aim for repeat vaccination with Heplisav as outpatient - hgb stable - AVG working well Assessment & Plan (04/26/2025 8:12 AM EDT): - Patient has been cleared at [facility] unit to start Wednesday at 6:30 AM she can be discharged as long as she has transportation available. Details of outpatient washroom attendant requirements being addressed. -For now we will continue with inpatient HD Wednesday regimen. Tolerating dialysis treatment well.Next due tomorrow, potentially will be DC planning for outpt HD at [facility] [place] next Wednesday. - Continue fluid restriction 1.2 L daily max. Fortunately reaching dry weight. - hepatitis B non-reactive. Will aim for repeat vaccination with Heplisav as outpatient - hgb stable - AVG working well Assessment & Plan (04/25/2025 9:51 AM EDT): - Patient has been cleared at [facility] unit to start Wednesday at 6:30 AM [...] - AVG working well -Details of outpatient washroom attendant requirements being addressed. Assessment & Plan (04/24/2025 9:54 AM EDT): - Patient has been cleared at [facility] to start tomorrow at 6:30 AM she [...] EDT): -Unfortunately despite extensive search locally at [facility] and [facility] no local dialysis center with bariatric bed to accommodate her dialysis. Our team have exhausted all search in the local dialysis centers. Highly suggest to start statewide search and [id number] for other facilities if she needs rehab [...] her dialysis tenure. -If discharged back to [place] outpatient dialysis unit will need transportation. Assessment [...] center across the state. -If discharged to [place] outpatient dialysis unit will need transportation. Assessment [...] for out of area dialysis rehab centers [facility] -Consider PT OT while inpatient assess risk of fall and ability to move to a chair. -Other options check with previous outpatient unit in [place] if still available chair and able to [...] for out of area dialysis rehab centers [facility] -Consider PT OT while inpatient assess risk of fall and ability to move to a chair. -Other options check with previous outpatient unit in [place] if still available chair and able to [...] on dialysis unit placement awaiting clearance through [facility] or [facility] but she has been declined by both so far due to concerns about her ability to transfer and sit in dialysis. There are no beds available throughout the area for dialysis clinics. -Our team continues to search for local unit, I would kindly ask case management to start looking for out of area dialysis rehab centers [facility] -Consider PT OT while inpatient assess [...] potassium binding resin. - Will inquire with [facility] hopefully able to be discharged to outpatient [...] access hemodialysis. She had been discharged from [facility] her dialysis center was in [place] but she lives in [place] and she did not have transportation. She was volume overloaded on presentation, requiring HD. Nephrology was consulted. Patient is requiring a bariatric BED for hemodialysis. 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 Patient has a bariatric dialysis bed at [place] dialysis unit. Patient remained in hospital for dialysis on 04/25. - fundraising consultant unavailable until Friday 04/27, will remain here [...] access hemodialysis. She had been discharged from [facility] her dialysis center was in [place] but she lives in [place] and she did not have transportation. She was volume overloaded on presentation, requiring HD. Nephrology was consulted. Patient is requiring a bariatric BED for hemodialysis. 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 Patient has a bariatric dialysis bed at [place] dialysis unit. Patient remained in hospital for dialysis on 04/25. - fundraising consultant unavailable until Friday 04/27, will remain here [...] access hemodialysis. She had been discharged from [facility] her dialysis center was in [place] but she lives in [place] and she did not have transportation. She [...] 04/19. Attempts were made for dialysis in [place] however patient was declined on 04/22 Last HD was 04/23 with removal of 5 L. Stable hemodynamically. Spoke with Dr. Esteban and patient has a bariatric dialysis bed and [facility]. Initial plans were for discharge today with outpatient dialysis on 04/25 however dialysis time was at 6:30 in the morning and patient did not have MVA OPERATOR coverage to be discharged home tonight. Patient remained in hospital for dialysis on 04/25. - Goal is for discharge home on 04/25 once fundraising consultant can be established to be in the [...] access hemodialysis. She had been discharged from [facility] her dialysis center was in [place] but she lives in [place] and she did not have transportation. She [...] 04/19. Attempts were made for dialysis in [place] however patient was declined on 04/22 04/23 Status post HD today with removal of 5 L. Stable hemodynamically. -discussed with patient in multidisciplinary rounds. [employer] Dr. Esteban has secured a bariatric chair for patient in [place]. - Anticipate chair will be ready in 24 to 48 hours. -Continue torsemide - HD Wednesday. - Continue 1 L fluid restriction Assessment & Plan (04/22/2025 4:03 PM EDT): Patient history of end-stage renal disease on dialysis Wednesday and Wednesday presented for fluid overload due to inability to access hemodialysis. She had been discharged from [facility] her dialysis center was in [place] but she lives in [place] and she did not have transportation. She [...] no bariatric HD chair available. Declined by [facility]. -Continue torsemide - HD Wednesday. - Continue 1 L fluid restriction -Case management/social work and spa supervisor continue to search for bariatric chair for outpatient dialysis. Assessment & Plan (04/21/2025 4:16 PM EDT): Patient history of end-stage renal disease on dialysis Wednesday and Wednesday presented for fluid overload due to inability to access hemodialysis. She had been discharged from [facility] her dialysis center was in [place] but she lives in [place] and she did not have transportation. She [...] no bariatric HD chair available. Declined by [facility]. -Continue torsemide - HD Wednesday. - Continue 1 L fluid restriction -Case management/social work and spa supervisor continue to search for bariatric chair for outpatient dialysis. Assessment & Plan (04/20/2025 6:23 PM EDT): Patient history of end-stage renal disease on dialysis Wednesday and Wednesday presented for fluid overload due to inability to access hemodialysis. She had been discharged from [facility] her dialysis center was in [place] but she lives in [place] and she did not have transportation. She [...] access hemodialysis. She had been discharged from [facility] her dialysis center was in [place] but she lives in [place] and she did not have transportation. She [...] the ED. She had been discharged from [facility] her dialysis center was in [place] but she lives in [place] and she did not have transportation. Patient [...] the ED. She had been discharged from [facility] her dialysis center was in [place] but she lives in [place] and she did not have transportation. Patient [...] the ED. She had been discharged from [facility] her dialysis center was in [place] but she lives in [place] and she did not have transportation. Patient [...] the ED. She had been discharged from [facility] her dialysis center was in [place] but she lives in [place] and she did not have transportation. Patient [...] the ED. She had been discharged from [facility] her dialysis center was in [place] but she lives in [place] and she did not have transportation. Patient [...] the ED. She had been discharged from [facility] her dialysis center was in [place] but she lives in [place] and she did not have transportation. -Received [...] from SNF her dialysis center was in [place] but she lives in [place] and she did not have transportation. -Received [...] the ED. She had been discharged from [facility] her dialysis center was in [place] but she lives in [place] and she did not have transportation. --Spoke [...] the ED. She had been discharged from [facility] her dialysis center was in [place] but she lives in [place] and she did not have transportation. --Spoke [...] the ED. She had been discharged from [facility] her dialysis center was in [place] but she lives in [place] and she did not have transportation. --Spoke [...] the ED. She had been discharged from [facility] her dialysis center was in [place] but she lives in [place] and she did not have transportation Case [...] ED. Evidently when she was discharged from [facility] her dialysis center was in [place] but she lives in [place] and she did not have transportation Case [...] 04/06 Evidently when she was discharged from [facility] her dialysis center was in [place] but she lives in [place] and she did not have transportation Nephrology [...] and a low-dose insulin sliding scale with [id number] testing. - Obtain hemoglobin A1c in the [...] Patient states that since her admission to [facility] over the last 10 months [...] Patient states that since her admission to [facility] over the last 10 months [...] Patient states that since her admission to [facility] over the last 10 months [...] obtain records from Dr. Paul Lebron in [place]. Assessment & Plan (04/09/2025 1:32 PM EDT): Patient states history of recurrent UTI currently on ciprofloxacin for 30 days. Patient asymptomatic. No concerns for infection presently - At presentation ciprofloxacin held because of risk versus benefit concerns agree that there may be greater risk than benefit of continuing ciprofloxacin at this point --Will try to obtain records from Dr. Paul Lebron in [place] on Wednesday Assessment & Plan (04/08/2025 3:43 [...] obtain records from Dr. Paul Lebron in [place] on Wednesday Assessment & Plan (04/07/2025 2:46 [...] 9:15 AM EDT Emergency [facility] [address] [place] [address] Gumaro Hernandez DO Daul, Adrian D, MD Discharge Disposition: Home or Self Care 04/17/2025 Episode Documentatio n Update [facility] [address] [place], [place] [phone] Salma Reyes 04/08/2025 Orders Only [facility] [address] [place], [place] [phone] Homehealth, Interface MD Eloisa 04/05/2025 3:05 PM EDT - 04/27/2025 3:17 PM EDT Hospital Encounter [facility] Med[facility] [address] [place] [address] Joseph Green MD Kielbasa, Shasta A, MD [...] clinician's provided indication for this examination in [facility]: Dyspnea (Shortness of Breath) COMPARISON: XR CHEST PORTABLE FINDINGS: Devices/Tubes/Lines: None. Lungs: No focal consolidation or pulmonary edema. Pleura: No pleural effusion or pneumothorax. Heart/Mediastinum: Stable cardiac silhouette enlargement. Bones/Soft Tissues: Degenerative changes of the shoulders and spine. No acute osseous abnormality. Procedure Note Krystal Encinas MD, PhD - 06/06/2025 XR CHEST PORTABLE Referring clinician's provided indication for this examination in [facility]:Dyspnea (Shortness of Breath) COMPARISON: XR CHEST PORTABLE [...] ALKALINE PHOSPHATASE 125(H) 39 - 117 U/L [facility] TOTAL BILIRUBIN 0.4 0.0 - 1.2 mg/dL [facility] DIRECT BILIRUBIN 0.2 0.0 - 0.2 mg/dL [facility] Bilirubin (Indirect) 0.2 0 - 1.5 mg/dL [facility] AST 14 0 - 37 U/L [facility] ALT 10 0 - 40 U/L [facility] TOTAL PROTEIN 6.4(L) 6.5 - 8.0 g/dL [facility] ALBUMIN 3.6(L) 3.9 - 4.8 g/dL [facility] GLOBULIN 2.8 1 - 4.8 g/dL [facility] A/G Ratio 1.29 1.00 - 4.80 RATIO [facility] Blood 06/05/2025 10:3 0 PM EDT 06/05/2025 10:35 PM EDT Gumaro Hernandez DO LAB BLOOD ORDERABLES Final Re sult [address] [address] * (ABNORMAL) CBC and differential (06/05/2025 10:30 PM EDT) Only the most recent of6 resultswithin the time period is included. WBC 9.35 4.00 - 11.00 K/uL [facility] RBC 2.64(L) 4.00 - 5.20 M/uL [facility] HGB 8.6(L) 12.0 - 16.0 g/dL [facility] HCT 25.9(L) 36.0 - 46.0 % [facility] PLT 190 150 - 450 K/uL [facility] MCV 98.1 80.0 - 100.0 fL [facility] MCH 32.6(H) 27.0 - 31.0 pg [facility] MCHC 33.2 32.0 - 36.0 g/dL [facility] RDW 13.2 11.5 - 14.5 % [facility] MPV 9.8 8.4 - 12.0 fL [facility] NRBC 0.00 0.00 /100 WBCs [facility] ABSOLUTE NRBC 0.00 0.00 K/uL [facility] DIFF METHOD Auto [facility] NEUTS 72.8 48.0 - 76.0 % [facility] LYMPHS 14.8(L) 18.0 - 41.0 % [facility] MONOS 8.7 4.0 - 11.0 % [facility] EOS 2.7 0.0 - 5.0 % [facility] BASOS 0.6 0.0 - 1.5 % [facility] Granulocytes, immature (%) 0.4 0.0 - 0.9 % [facility] ABSOLUTE NEUTS 6.81 1.92 - 7.60 K/uL [facility] ABSOLUTE LYMPHS 1.38 0.72 - 4.10 K/uL [facility] ABSOLUTE MONOS 0.81 0.16 - 1.10 K/uL [facility] ABSOLUTE EOS 0.25 0.00 - 0.50 K/uL [facility] ABSOLUTE BASOS 0.06 0.00 - 0.15 K/uL [facility] Granulocytes, immature 0.04 0.00 - 0.09 K/uL [facility] Blood 06/05/2025 10:3 0 PM EDT 06/05/2025 10:35 PM EDT us Gumaro Hernandez DO LAB BLOOD ORDERABLES Final Re sult [facility] [address] [place] [address] * (ABNORMAL) Basic metabolic panel (06/05/2025 10:30 PM EDT) Only the most recent of8 resultswithin the time period is included. [facility] SODIUM 135 133 - 146 mmol/L [facility] CHLORIDE 96 96 - 108 mmol/L [facility] POTASSIUM 4.0 3.3 - 5.1 mmol/L [facility] CO2 26 21 - 35 mmol/L [facility] BUN 42(H) 6 - 19 mg/dL [facility] CREATININE 3.30(H) 0.5 - 1.5 mg/dL [facility] GLUCOSE 321(H) 70 - 99 mg/dL [facility] CALCIUM 8.1(L) 8.4 - 10.3 mg/dL [facility] EGFR 15(L) >59 mL/min/1.7 3m2 [facility] Comment:Estimated glomerular filtration rate calculated using the CKD-EPI refit equation. ANION GAP 17 10 - 20 mmol/L [facility] Blood 06/05/2025 10:3 0 PM EDT 06/05/2025 10:35 PM EDT us Gumaro Hernandez DO LAB BLOOD ORDERABLES Final Re sult [address] [id number] * ECG 12-LEAD (06/05/2025 10:03 PM EDT) Only the most recent of2 resultswithin the time period is included. [facility] Ventricular Rate EKG/MIN 67 BPM [facility] Atrial Rate 67 BPM [facility] [place] Interval 144 ms [facility] QRS Duration 96 ms [facility] QT Interval 466 ms [facility] QTC Interval 492 ms [facility] R Wave [place] -40 degrees [facility] T Wave [place] 50 degrees [facility] 06/05/2025 10:0 3 PM EDT 06/06/2025 8:56 AM EDT Narrative [facility] - 06/06/2025 8:56 AM EDT Normal sinus rhythm Left axis deviation Prolonged QT Abnormal ECG When compared with ECG of 05-Apr-2025 16:16, No significant change was found Confirmed by Zackary August ([id number]) on 06/06/2025 8:56:48 AM us Gumaro Hernandez DO ECG ORDERABLES Final Result Performing Organization Address [facility] de Phone Number [email or web address] * (ABNORMAL) POCT Glucose (04/27/2025 1:51 PM EDT) Only the most recent of89 resultswithin the time period is included. Pathologist [facility] Glucose, POCT 159(H) 70 - 100 mg/dL [facility] 04/27/2025 1:51 PM EDT 04/27/2025 1:57 PM EDT us Jennifer Chapin MD POINT OF CARE TEST ORDERABLE S Final Result Performing Organization Address [facility] de Phone Number [address] [address] * Hepatitis B surface antigen (04/24/2025 11:00 AM EDT) Only the most recent of2 resultswithin the time period is included. [facility] HBV SURFACE ANTIGEN NON-REACTI VE NON-REACTI VE [facility] Blood 04/24/2025 11:0 0 AM EDT 04/25/2025 8:15 AM EDT us Chemo Esteban MD LAB BLOOD ORDERABLES Final Resul t Performing Organization Address [facility] de Phone Number [address] [address] * (ABNORMAL) CBC (04/23/2025 8:49 AM EDT) Only the most recent of4 resultswithin the time period is included. Pathologist [facility] WBC 8.51 4.00 - 11.00 K/uL [facility] RBC 3.41(L) 4.00 - 5.20 M/uL [facility] [facility] HGB 11.1(L) 12.0 - 16.0 g/dL [facility] HCT 33.8(L) 36.0 - 46.0 % [facility] PLT 181 150 - 450 K/uL [facility] MCV 99.1 80.0 - 100.0 fL [facility] MCH 32.6(H) 27.0 - 31.0 pg [facility] MCHC 32.8 32.0 - 36.0 g/dL [facility] RDW 13.6 11.5 - 14.5 % [facility] MPV 10.3 8.4 - 12.0 fL [facility] NRBC 0.00 0.00 /100 WBCs [facility] ABSOLUTE NRBC 0.00 0.00 K/uL [facility] Blood 04/23/2025 8:49 AM EDT 04/23/2025 9:22 AM EDT us Maris Navarro MD LAB BLOOD ORDERABLES Final Resu lt Performing Organization Address City/State/[facility] Co de Phone Number [address] [address] * (ABNORMAL) Comprehensive metabolic panel (04/15/2025 6:01 AM EDT) Only the most recent of2 resultswithin the time period is included. SODIUM 139 133 - 146 mmol/L [facility] POTASSIUM 4.7 3.3 - 5.1 mmol/L [facility] CHLORIDE 101 96 - 108 mmol/L [facility] CO2 27 21 - 35 mmol/L [facility] BUN 50(H) 6 - 19 mg/dL [facility] CREATININE 3.50(H) 0.5 - 1.5 mg/dL [facility] GLUCOSE 130(H) 70 - 99 mg/dL [facility] ALBUMIN 3.6(L) 3.9 - 4.8 g/dL [facility] TOTAL PROTEIN 6.5 6.5 - 8.0 g/dL [facility] CALCIUM 9.1 8.4 - 10.3 mg/dL [facility] ALKALINE PHOSPHATASE 136(H) 39 - 117 U/L [facility] TOTAL BILIRUBIN 0.5 0.0 - 1.2 mg/dL [facility] AST 14 0 - 37 U/L [facility] ALT 9 0 - 40 U/L [facility] GLOBULIN 2.9 1 - 4.8 g/dL [facility] EGFR 14(L) >59 mL/min/1.7 3m2 [facility] Comment:Estimated glomerular filtration rate calculated using the CKD-EPI refit equation. ANION GAP 16 10 - 20 mmol/L [facility] Blood 04/15/2025 6:01 AM EDT 04/15/2025 6:41 AM EDT us Jessica Ribera DO MPH LAB BLOOD ORDER [place] Final Result Performing Organization Address City/[facility] Co de Phone Number [address] [address] * Phosphorus (04/15/2025 6:01 AM EDT) Only the most recent of2 resultswithin the time period is included. PHOSPHORUS 3.9 2.7 - 4.5 mg/dL [facility] Blood 04/15/2025 6:01 AM EDT 04/15/2025 6:41 AM EDT us Jessica Ribera DO MPH LAB BLOOD ORDER [place] Final Result Performing Organization Address [facility] Co de Phone Number [address] [address] * Magnesium (04/15/2025 6:01 AM EDT) Only the most recent of3 resultswithin the time period is included. MAGNESIUM 2.1 1.6 - 2.6 mg/dL [facility] Blood 04/15/2025 6:01 AM EDT 04/15/2025 6:41 AM EDT us Jessica Ribera DO MPH LAB BLOOD ORDER [place] Final Result Performing Organization Address City/[facility] Co de Phone Number [address] [address] * (ABNORMAL) Urinalysis w/reflex Urine Culture (04/12/2025 2:45 PM EDT) COLOR Yellow Yellow [facility] CLARITY Clear [facility] GLUCOSE Negative Negative [facility] BILI Negative Negative [facility] KETONES Negative Negative [facility] SPECIFIC GRAVITY 1.015 1.005 - 1.030 [facility] BLOOD Negative Negative [facility] PH 6.0 5.0 - 8.0 [facility] Protein-UA 2+(A) Negative [facility] NITRITE Negative Negative [facility] Leukocyte esterase, ur Trace(A) Negative [facility] Urine (Urine) 04/12/2025 2:4 5 PM EDT 04/12/2025 2:53 PM EDT us Maris Navarro MD URINE ORDERABLES Final Result Performing Organization Address City/[facility]/ZIP Co de Phone Number [address] [address] * (ABNORMAL) Urine Culture (04/12/2025 2:45 PM EDT) Special Requests None Reflexed from [id number] 04/12/2025 3:43 PM EDT [facility] Urine Culture 10,000 to 100,000 colony forming units per mL YEAST(A) 04/14/2025 8:32 AM EDT [facility] Urine 04/12/2025 2:45 PM EDT 04/12/2025 2:53 PM EDT us Maris Navarro MD MICROBIOLOGY - GENERAL ORDERABL ES Final Result Performing Organization Address City/[facility]/ZIP Co de Phone Number [address] [address] * (ABNORMAL) Urine sediment (04/12/2025 2:45 PM EDT) WBC 11-20(A) NONE SEEN /hpf [facility] RBC 0-2(A) NONE SEEN /hpf [facility] URINE EPITHELIAL 0-4(A) NONE SEEN [facility] MUCUS NONE SEEN NONE SEEN /hpf [facility] BACTERIA Trace(A) NONE SEEN /hpf [facility] YEAST 1+(A) NONE SEEN /hpf [facility] 04/12/2025 2:45 PM EDT 04/12/2025 2:53 PM EDT us Maris Navarro MD URINE ORDERABLES Final Result [facility] [address] [place] [address] * US Lower Extremity Veins Duplex Complete [...] the left lower extremity. Joseph Green MD [facility] VASCULAR Final Result * PT-INR (04/06/2025 6:33 AM EDT) PT 12.0 10.2 - 12.9 sec [facility] INR 1.0 0.9 - 1.1 [facility] Comment:Therapeutic range fo r oral Vitamin K antagonists: 2.0-3.5 Blood 04/06/2025 6:33 AM EDT 04/06/2025 6:36 AM EDT us Joseph Green MD LAB BLOOD ORDERABLES Final Resu lt [address] [address] * (ABNORMAL) Hemoglobin A1c (04/06/2025 6:33 AM EDT) HEMOGLOBIN A1C 7.0(H) 4.3 - 5.8 % [facility] Blood 04/06/2025 6:33 AM EDT 04/06/2025 6:37 AM EDT us Joseph Green MD LAB BLOOD ORDERABLES Final Resu lt Performing Organization Address [facility] Co de Phone Number [address] [address] * XR Chest Portable (04/05/2025 4:04 PM [...] CREATINE KINASE 131 21 - 215 U/L [facility] Blood 04/05/2025 3:35 PM EDT 04/05/2025 3:47 PM EDT Donn Cohen MD LAB BLOOD ORDERABLES Final Result [address] [address] from Last 3 Months Insurance [facility] MEDICARE REPLACEMENT [facility] MEDICARE REPLACEMENT [facility] MEDICARE PART A & B [facility] RE[facility] [place] [id number] MEDICARE [facility]PLACEMENT [facility] [place] [address] [place] [address] MEDICARE REPLACEMENT [facility] MEDICARE PART A & B [facility] MEDICARE REPLACEMENT [facility] MEDICARE PART A & B [facility] MEDICARE REPLACEMENT [facility] MEDICARE PART A & B Advance Directives For more information, please contact: [phone] (9AM - 5PM [facility], Wednesday-Wednesday) Documents on File Type Date Recorded Patient Rice Drier Expl anation Healthcare Proxy 05/02/2025 2:05 PM Healthcare Proxy 04/18/2025 9:29 AM health care proxy * Full Code (Latest Code Status on File) Date Activated Date Inactivated Comments 04/05/2025 8:51 PM Question Answer Comments Code Status Confirmed With: Patient Code Status Communicated To: Inpatient Attending Care Teams [employer] Relationship Specialty Start Date End Date Alexi Lynne MD [address] [place] [address] [place] [address] PCP - General Internal Medicine 04/05/25 Additional Source Comments The information contained in this document represents components of the legal health record. It is not the complete legal health record.[facility]
== END 2025-06-27 15:55 | disposition home or self-care (01) ==
LOC: HO.HID 14:40
PROVIDERS: PCP Internal Medicine; Visit Provider Internal Medicine
DX: N17.9 Acute kidney failure, unspecified (principal); N18.9 Chronic kidney disease, unspecified
CPT/HCPCS: 99213

== ENCOUNTER → 2025-06-27 14:40 | Outpatient (BNVA) | payer MEDICARE, MEDICAID, SELFPAY | PROVIDERS: PCP Internal Medicine; Visit Provider Internal Medicine | DX: E11.22 Type 2 diabetes mellitus with diabetic chronic kidney disease (principal); I12.9 Hypertensive chronic kidney disease with stage 1 through stage 4 chronic kidney disease, or unspecified chronic kidney disease; N18.4 Chronic kidney disease, stage 4 (severe); N17.9 Acute kidney failure, unspecified; N39.0 Urinary tract infection, site not specified; R78.81 Bacteremia; B95.7 Other staphylococcus as the cause of diseases classified elsewhere; Z79.2 Long term (current) use of antibiotics | CPT/HCPCS: 99212 ==

== ENCOUNTER 2025-07-09 12:05 | Inpatient (IN) | payer MEDICARE, MEDICAID, SELFPAY ==
--- OUTSIDE RECORDS SUMMARY | 2022-07-01 07:00 | XMS_ITS | Continuity of Care Document ---
Author Organization [facility] Address [address] [address] Phone Care Team Providers Care Clinical Nursing Coordinator Name Role Phone Caleb URBINA, Fiona Unavailable Unavailable Advance Directives Directive Yes / No Effective Date File Name No Information Encounters Encounter Description Practice Location Reason(s) For Visit Diagnoses Date Provider [facility], [address], [id number], [place] tel:[phone] [facility] No Information 2021 Caleb Jaimes. [address] [place], [place], [id number], [place]. tel:[phone] Family History Family Member Type Diagnosis Age [...]
[2025-07-09] VITALS (8 sets, daily range): BP systolic 139–188; BP diastolic 54–80; PULSE 60–66; RESP 18–20; TEMP 36.6–36.8; O2SAT 98–100; BMI 58.6
--- NOTE | ~2025-07-09 | CT_ITS ---
EXAMINATION: CT ANGIOGRAM CHEST CLINICAL INFORMATION: Dyspnea. Shortness of breath. Elevated d-dimer. Chest pain. COMPARISON: Noncontrast CT chest dated June 10, 2025. TECHNIQUE: Multiple axial images were obtained through the chest after the administration of 100 mL of Omnipaque 350 intravenous contrast. Extensive vascular post-processing including two-dimensional and three-dimensional reformatted images were created and reviewed on an independent workstation. SmartPrep technique. This CT examination was performed using dose optimization techniques as appropriate, variously including the following: *Automated exposure control *Adjustment of mA and/or kV according to patient size (this includes techniques or standardized protocols for targeted exams where dose is matched to indication/reason for exam; i.e. extremities or head) *Use of iterative reconstruction technique DLP: 623 mGy-cm FINDINGS: Normal enhancement pattern of the main pulmonary artery and its main branches with the Limited evaluation of the subsegmental pulmonary branches. No aneurysm or dissection, thoracic aorta. Calcified plaques in the thoracic aortic arch wall and the coronary arteries. Heart appears enlarged 4 chambers. Calcified plaques in the mitral valve. No pericardial effusion. No gross mediastinal lymphadenopathy. Pulmonary patchy groundglass. No gross consolidation. No pneumothorax. No pleural effusion. No calcified pleural plaques. Lymphadenopathy in the left retrocrural. There is a 17 mm low density nodule which measures 2 Hounsfield units. Nodular surface of the liver. Dystrophic calcification right hepatic lobe. Spleen appears enlarged. Multilevel spondylosis without acute fracture or gross listhesis. Patient's large body habitus/obesity. CT/CT angio chest PE protocol IMPRESSION: No acute pulmonary artery emboli, main pulmonary artery or its main branches. No aneurysm or dissection, thoracic aorta. Mild interstitial lung edema. Cardiomegaly. Coronary artery disease. Probable hepatocellular disease. Fleischner guidelines were followed. Electronically signed by: Zion Lechuga MD 07/09/2025 03:58 PM [facility]
--- NOTE | ~2025-07-09 | XR_ITS ---
EXAMINATION: XR CHEST CLINICAL INFORMATION: Shortness of breath COMPARISON: June 21, 2025 TECHNIQUE: Frontal view of the chest was obtained. FINDINGS: Pulmonary reticular nodular pattern more conspicuous in the right lung. No pleural effusion. No pneumothorax. No hyperinflation. Cardiomediastinal silhouette size is normal. Patient's large body habitus. Unable to evaluate the axial skeleton. XR/XR chest 1V IMPRESSION: Chronic interstitial lung disease with the questionable worsening airspace disease, right lung. Underlying malignancy cannot be excluded. Electronically signed by: Zion Lechuga MD 07/09/2025 01:51 PM EST
--- NOTE | 2025-07-09 12:20 | ED_ITS ---
HPI - SOB/Dyspnea General Chief Complaint: Dyspnea Stated Complaint: SOB,FEELS FLUID IN LUNGS X2D PER EMS Time Seen by Provider: 07/09/25 12:08 Source: patient, EMS and old records reviewed Mode of arrival: EMS Limitations: no limitations History of Present Illness ED Provider: KARLIE MONTELONGO Narrative: 64-year-old female with past medical history of end-stage renal disease on dialysis MWF, diabetes, E coli ESBL, hyperlipidemia, cirrhosis of the liver, hypertension, chronic pain syndrome, GERD, bed-bound due to morbid obesity she presents with complaint of missing HD on Wednesday due to not feeling well. Her last full session of dialysis was on Wednesday. She notes she has a cough with some clear sputum that comes up but no fevers. She feels bilateral rib discomfort from coughing. She has no pleuritic chest pain. She denies any recent travel or Procedures. She has not had any fevers. She notes she is very swollen with fluid overload. She states she has had chronic diarrhea in the past due to antibiotics. She states she has had some urinary frequency. She states she has a rash that is wet and both groins. Patient has intermittent O2 use as needed 2 L nasal cannula but has not had to use it for a long time EMS did give her DuoNeb prior to arrival she states she felt better. She states just overall she is not feel well, but does not have any sick contacts. MD elicited complaint: shortness of breath and chest pain (Bilateral rib pain) Pertinent past history: other Onset (ago): day(s) (Three) Context: recent illness Timing: progressively worsening Severity: moderate Exacerbating factors: lying flat, exertion and coughing Relieving factors: oxygen, bronchodilators and upright position Associated symptoms: chest pain, cough and sputum production Treatment prior to arrival: bronchodilator Related Data Home Medications ?Medication ?Instructions ?Recorded ?Confirmed nystatin 100,000 unit/gram topical 1 appl topical TID 07/11/22 06/21/25 cream Triamcinolone 0.1% Ointment 1 appl topical TID PRN lis betic 05/13/25 06/21/25 psoriasis epoetin silverio 20,000 unit/mL 20,000 unit subcut TH 04/3006/21/25 injection solution Previous Rx's ?Medication ?Instructions ?Recorded blood sugar diagnostic #200 ea 12/05/21 blood sugar diagnostic (Accu-Chek #300 ea 12/05/21 Berna Plus test strips) hospital bed #1 ea 07/06/22 pen needle, diabetic 32 gauge x #100 ea 07/07/22 insulin syringe-needle U-100 1 mL #100 ea 07/08/22 30 gauge x 1/2 (BD Insulin Syringe Ultra-Fine) acetaminophen 325 mg tablet 650 mg (2 x 325 mg) PO Q6H PRN 06/11/25 Pain (Scale Score 4-6) 30 days #3 tabs amlodipine 10 mg tablet 10 mg PO DAILY 30 days #30 t abs 06/11/25 bisacodyl 10 mg rectal suppository 10 mg HI DAILY PRN Constipation 30 06/11/25 days #30 ea docusate sodium 100 mg capsule 100 mg PO DAILY 30 days #30 caps 06/11/25 ferrous fumarate 325 mg (106 mg 325 mg PO DAILY 30 day s #30 tabs 06/11/25 iron) tablet gabapentin 100 mg capsule 100 mg PO BID 30 days #60 ca ps 06/11/25 glucagon 1 mg solution for 1 mg IM Q20M PRN low BG 30 days 06/11/25 injection #30 ea hydralazine 25 mg tablet 25 mg PO TID 30 days #30 tab s 06/11/25 insulin glargine 100 unit/mL (3 20 unit (0.2 mL) subcu t BEDTIME 30 06/11/25 mL) subcutaneous pen (Lantus days #3 mL Solostar U-100 Insulin) insulin lispro 100 unit/mL 10 - 18 unit (0.1 - 0.18 mL ) 06/11/25 subcutaneous solution (Humalog subcut TIDWM 30 days #1 0 mL U-100 Insulin) ondansetron 4 mg disintegrating 4 mg translingual TIDA C PRN nausea 06/11/25 tablet 30 days #12 tabs oxybutynin chloride 15 mg 15 mg PO DAILY 30 days #30 t abs 06/11/25 tablet,extended release 24 hr pantoprazole 20 mg tablet,delayed 20 mg PO DAILY 30 da ys #30 tabs 06/11/25 release polyethylene glycol 3350 17 gram 17 g PO DAILY 30 days #30 ea 06/11/25 oral powder packet ropinirole 0.25 mg tablet 0.25 mg PO BEDTIME 30 days # 30 tabs 06/11/25 sennosides 8.6 mg tablet (senna) 17.2 mg (2 x 8.6 mg) PO BEDTIME 30 06/11/25 days #30 tabs sodium phosphates 19 gram-7 118 ml HI DAILY 30 days #3 0 mL 06/11/25 gram/118 mL enema metoprolol tartrate 25 mg tablet 12.5 mg (1/2 x 25 mg) PO BID #60 06/21/25 tabs sulfamethoxazole 800 1 tab PO Q12H #14 tabs 06/21 mg-trimethoprim 160 mg tablet (Bactrim DS) Allergies Allergy/AdvReac Type Severity Reaction Status Date / Time metformin (METFORMIN) Allergy Severe HIVES Verified 07/09/25 12:26 heparin Allergy Intermediate Itching Verified 07/09/25 12:26 canagliflozin (From Invokana) Allergy Hives Verified 07/09/25 12:26 Review of Systems 2 Review of Systems: Constitutional : No Fever, No Chills ENT/Mouth : No sore throat, No Rhinorrhea, No Swallowing Difficulty Eyes: No Eye Pain, No Swelling, No Redness Cardiovascular : Positive Chest Pain, positive SOB, pos Orthopnea, positive Edema Respiratory : Pos Cough, pos Sputum, No Wheezing, positive dyspnea Gastrointestinal : No Nausea, No Vomiting, No Diarrhea, No abdominal Pain, No Hematochezia, No Melena Genitourinary : No Dysuria, No Urinary Frequency, No Hematuria Musculoskeletal : No joint pain, No Myalgias Skin : No Skin Lesions, No rash Neuro : No Weakness, No Numbness, No Dizziness, No Headache All other systems reviewed and are negative [facility] Past Medical History Attestation statement: The following information was validated with the patient. Source: old records reviewed Medical History HTN (hypertension) HLD (hyperlipidemia) Frequent UTI Anemia Acute on chronic diastolic (congestive) heart failure Type 2 diabetes mellitus with obesity Clostridium difficile diarrhea Morbid obesity Detrusor dysfunction Bladder outlet obstruction Esophagitis CKD (chronic kidney disease) stage 4, GFR 15-29 ml/min Hypothyroidism IBS (irritable bowel syndrome) Surgical History History of tubal ligation Family History Family History Father Diabetes Mother Diabetes Hypertension Breast cancer Family/Other Breast cancer Uterine cancer Social History Social History Household Members: None Housing: Apartment Do you presently have visiting nurse or other home services: Yes ([employer]augh[employer]) Alcohol intake: never Comment: bedbound at baseline Patient Tobacco Use Status: Former Tobacco user Smoked in Last 30 Days: No e-Cigarette/Vaping Use: Never Used Second Hand Smoke Exposure: No Use of substances other than those prescribed or required for medical reasons: No Advance Directives: Yes Advance Directives on File: Yes Advance Directives Date on File: 10/09/20 service: No Current occupational status: disabled Cognitive needs: No Hearing needs: No Vision needs: Yes Physical Exam 2 Vital Signs: Vital Signs: Last Vital Signs Temp 98.2 F 07/09/25 12:21 Pulse 61 07/09/25 15:29 Resp 20 07/09/25 15:29 BP 167/62 H 07/09/25 15:29 Pulse Ox 100 07/09/25 15:29 O2 Del Method Nasal Cannula 07/09/25 15:29 O2 Flow Rate 2 07/09/25 15:29 Oxygen Flow Rate 2 07/09/25 12:21 BMI result Body Mass Index 58.6 Appearance: Alert. Oriented X3. No acute distress. Eyes: Pupils equal, round and reactive to light. ENT: Pharynx normal. Neck: Normal inspection. Neck supple. CVS: Normal heart rate and rhythm. Pulses normal. Respiratory: No respiratory distress. Breath sounds diminished with rales in both bases Abdomen: Soft and nontender. Groin has bilateral red area with moisture and satellite lesions consistent with candidiasis Skin: Skin warm and dry. Normal skin color. Normal skin turgor. Extremities: 3+ pitting edema of both lower extremities Neuro: Oriented X 3. No motor deficit. No sensory deficit. CN2-12 intact Course Course Course Narrative: 4:06 PM 07/09/2025 (KARLIE LOPEZ): I sent a message to Dr. Ash she is tachypneic and labored and I just went into the room respiratory rate around 26 blood pressure stable she is still maintaining greater than 95% on 2 L nasal cannula I do not think she will be able to go without dialysis until Wednesday. I am waiting for his recommendations - hospitalist aware of possible admission, I am signing out to Dr. Fragoso for full disposition Medications Administered Discontinued Medications Generic Name Dose Route Start Last Admin Trade Name Karis PRN Reason Stop Dose Admin Iohexol 100 ml 07/09/25 15:15 07/09/25 15:16 Iohexol 350 Mg/Ml 100 Ml Infus..Btl IV 07/09/25 15:16 100 ml ONCE ONE Administration Nystatin 1 appl 07/09/25 12:40 07/09/25 13:17 Nystatin Powder 15 Gm Bottle TOPICAL 07/09/25 12:41 1 appl ONCE ONE Administration Protocol Medical Decision Making Medical Decision Making MDM Narrative: 64-year-old female with past medical history of end-stage renal disease on dialysis MWF, diabetes, E coli ESBL, hyperlipidemia, cirrhosis of the liver, hypertension, chronic pain syndrome, GERD, bed-bound due to morbid obesity she presents with complaint of feeling short of breath as well as increased swelling of extremities. She has white frothy sputum coming up. She has bilateral rib pain but she blames it on coughing. She has no infectious symptoms. She has only bilateral rib pain with coughing this seems atypical for pulmonary embolus or ACS. I am going to obtain basic labs, viral panel, chest x-ray. I received sign-out from Dr. Leone I discussed the patient with Dr. Ash, patient to be admitted to the medicine team, then patient will have dialysis tomorrow. If patient has any worsening symptoms through the night, the medicine team is to call Dr. Ash at any time to expedite dialysis. At this time, patient is stable Differential Diagnosis Differential Diagnoses: The differential diagnosis associated with the presentation includes Volume overload, skin candidiasis of groin area, low probability of PE, viral infection Admission/Observation Consideration of admission/observation: Escalation of care including admission/observation considered I do not think she can wait til Wednesday given her labored breathing to get HD. I am going to admit her I did notify Dr. Ash Consult Healthcare Provider Management of the patient was discussed with: Hospitalist (We will evaluate the patient in the ED, I am still waiting to hear back from Dr. Ash) and Key Bed Installer (Nephrology) Lab Data [facility] Lab Attestation statement: I reviewed the patient's lab results. D-dimer is elevated but she is negative by years algorithm suspect more volume overload Has WBCs in urine but no nitrites no bacteria at this time would hold off her last urine that cultured had 4+ bacteria was 06/10/2025 her 2 prior urine to that were similar to today's visit grew out negative cultures 07/09/25 13:02 07/09/25 13:02 Labs: Lab Results 07/09/25 07/09/25 07/09/25 Range/Units 12:55 13:02 13:09 WBC 9.8 (4.8-10.8) X10*3/uL RBC 2.83 L (4.20-5.50) X10*6/uL Hgb 9.0 L (12.0-16.0) g/dl Hct 28.3 L (37.0-47.0) % MCV 100.0 H (80.0-98.0) fL MCH 31.8 (27.0-33.0) pg MCHC 31.8 (31.0-35.0) g/dl RDW 14.1 (11.0-16.0) % Plt Count 194 (160-400) X10*3/uL MPV 9.8 (9.4-12.3) fL Immature Gran % (Auto) 0.8 H (0.0-0.4) % Neut % (Auto) 78.4 H (45-73) % Lymph % (Auto) 10.6 L (20-40) % [place] % (Auto) 6.9 (2-11) % Eos % (Auto) 2.8 (0-4) % Baso % (Auto) 0.5 (0-2) % Lymph # (Auto) 1.0 L (1.2-4.9) X10*3/uL [place] # (Auto) 0.7 (0.1-1.2) X10*3/uL Eos # (Auto) 0.3 (0.0-0.4) X10*3/uL Baso # (Auto) 0.1 (0.0-0.2) X10*3/uL Abs Immat Gran (auto) 0.08 H (0.00-0.03) X10*3/uL Absolute Neuts (auto) 7.7 (2.0-8.3) x10*3/uL Absolute Nucleated RBC 0.000 (0.0-0.012) X10*3/uL Nucleated RBC % (auto) 0.0 (0.0-0.2) /100WBC D-Dimer High Sensitivty 418 NG/ML VBG pH 7.37 (7.32-7.43) VBG pCO2 46 mmHg VBG pO2 45 mmHg VBG HCO3 27 H (22-26) mmol/L VBG O2 Saturation 67.0 % VBG Base Excess 1.7 mmol/L Sodium 136 (135-145) mmol/L Potassium 4.8 D (3.3-5.1) mmol/L Chloride 103 (96-108) mmol/L Carbon Dioxide 23 (22-29) mmol/L Anion Gap 15 (12-20) BUN 66 H (9-16) mg/dL Creatinine 4.11 H* (0.5-1.4) mg/dL Estim Creat Clear Calc 21.3 Estimated GFR 11 Random Glucose 306 H (60-115) mg/dL Lactic Acid 1.4 (0.5-2.0) mmol/L Calcium 8.7 (8.4-10.2) mg/dL Magnesium 1.7 (1.6-2.6) mg/dL Total Bilirubin 0.3 (0.0-1.0) mg/dL Direct Bilirubin 0.1 (0.0-0.5) mg/dL AST 20 (5-31) U/L ALT 14 (0-31) U/L Alkaline Phosphatase 143 H (39-117) U/L Troponin I High Sens 17.6 H (<3.5-17.0) ng/L C-Reactive Protein 1.82 H (< or = 0.50) mg/dL NT-Pro-B Natriuret Pep 6080.4 H (<300) pg/mL Total Protein 6.7 (6.5-8.0) g/dL Albumin 3.5 (3.5-5.0) g/dL Urine Color Urine Appearance Urine pH (5.0-9.0) Ur Specific [place] (1.005-1.025) Urine Protein (Neg-Trace) mg/dL Urine Glucose (UA) (Negative) mg/dL Urine Ketones (Negative) mg/dL Urine Blood (Negative) Urine Nitrite (Negative) Ur Leukocyte Esterase (Negative) Urine RBC (0-2) /HPF Urine WBC (0-5) /HPF Ur Squamous Epith Cells (0-2) /HPF Urine Bacteria (None Seen) Hyaline Casts (0-2) /LPF Influenza Type A (PCR) NEGATIVE (Negative) Influenza Type B (PCR) NEGATIVE (Negative) RSV RNA Qual (PCR) NEGATIVE (Negative) SARS-CoV-2 RNA (RT-PCR) NEGATIVE (Negative) 07/09/25 Range/Units 13:21 WBC (4.8-10.8) X10*3/uL RBC (4.20-5.50) X10*6/uL Hgb (12.0-16.0) g/dl Hct (37.0-47.0) % MCV (80.0-98.0) fL MCH (27.0-33.0) pg MCHC (31.0-35.0) g/dl RDW (11.0-16.0) % Plt Count (160-400) X10*3/uL MPV (9.4-12.3) fL Immature Gran % (Auto) (0.0-0.4) % Neut % (Auto) (45-73) % Lymph % (Auto) (20-40) % [place] % (Auto) (2-11) % Eos % (Auto) (0-4) % Baso % (Auto) (0-2) % Lymph # (Auto) (1.2-4.9) X10*3/uL [place] # (Auto) (0.1-1.2) X10*3/uL Eos # (Auto) (0.0-0.4) X10*3/uL Baso # (Auto) (0.0-0.2) X10*3/uL Abs Immat Gran (auto) (0.00-0.03) X10*3/uL Absolute Neuts (auto) (2.0-8.3) x10*3/uL Absolute Nucleated RBC (0.0-0.012) X10*3/uL Nucleated RBC % (auto) (0.0-0.2) /100WBC D-Dimer High Sensitivty NG/ML VBG pH (7.32-7.43) VBG pCO2 mmHg VBG pO2 mmHg VBG HCO3 (22-26) mmol/L VBG O2 Saturation % VBG Base Excess mmol/L Sodium (135-145) mmol/L Potassium (3.3-5.1) mmol/L Chloride (96-108) mmol/L Carbon Dioxide (22-29) mmol/L Anion Gap (12-20) BUN (9-16) mg/dL Creatinine (0.5-1.4) mg/dL Estim Creat Clear Calc Estimated GFR Random Glucose (60-115) mg/dL Lactic Acid (0.5-2.0) mmol/L Calcium (8.4-10.2) mg/dL Magnesium (1.6-2.6) mg/dL Total Bilirubin (0.0-1.0) mg/dL Direct Bilirubin (0.0-0.5) mg/dL AST (5-31) U/L ALT (0-31) U/L Alkaline Phosphatase (39-117) U/L Troponin I High Sens (<3.5-17.0) ng/L C-Reactive Protein (< or = 0.50) mg/dL NT-Pro-B Natriuret Pep (<300) pg/mL Total Protein (6.5-8.0) g/dL Albumin (3.5-5.0) g/dL Urine Color Yellow Urine Appearance Clear Urine pH 6.5 (5.0-9.0) Ur Specific [place] 1.015 (1.005-1.025) Urine Protein 100 (2+) H (Neg-Trace) mg/dL Urine Glucose (UA) 500 H (Negative) mg/dL Urine Ketones Negative (Negative) mg/dL Urine Blood Negative (Negative) Urine Nitrite Negative (Negative) Ur Leukocyte Esterase Small (1+) H (Negative) Urine RBC 0-2 (0-2) /HPF Urine WBC 21-50 H (0-5) /HPF Ur Squamous Epith Cells 3-5 (0-2) /HPF Urine Bacteria None Seen (None Seen) Hyaline Casts 0-2 (0-2) /LPF Influenza Type A (PCR) (Negative) Influenza Type B (PCR) (Negative) RSV RNA Qual (PCR) (Negative) SARS-CoV-2 RNA (RT-PCR) (Negative) Independent Interpretation I performed an independent interpretation of an: EKG and Plain X-Ray Interpretation: Rate: 64 Rhythm: Normal sinus [place]: Left Normal P waves. Normal MEMO. Normal QRS complex. ST T wave : Normal no ST-elevation qTC: 445 prior studies: No acute ischemia The study has been interpreted contemporaneously by me. . Radiology Impression Discussion of test interpretation with radiology: I have reviewed the radiologist's reading. Independent Historian Clinical information obtained from an independent historian. History obtained from or confirmed by: EMS External Record Review External record reviewed: Inpatient record and Outpatient record Critical Care Time Critical Care Time Critical Care Time: Yes Total Critical Care Time: 35 Attestation: I have personally provided critical care time. Time includes review of lab data, radiology results, discussion with consultants, and monitoring for potential decompensation. Intervention performed as documented. Discharge Plan Discharge Clinical Impression: ESRD (end stage renal disease) on dialysis, Shortness of breath Patient Disposition: Admitted As Inpatient
--- NOTE | 2025-07-09 12:26 | ECG_ITS ---
Test Reason : DYSPNEA Blood Pressure : */* mmHG Vent. Rate : 64 BPM Atrial Rate : 64 BPM P-R Int : 156 ms QRS Dur : 94 ms QT Int : 432 ms P-R-T Axes : 81 -39 36 degrees QTcB Int : 445 ms Normal sinus rhythm Left axis deviation Pulmonary disease pattern Abnormal ECG When compared with ECG of 21-Jun-2025 16:18, Previous ECG has undetermined rhythm, needs review Referred By: Shanika Leone Electronically Signed By: JOSE ROBERTO BLANCO MD
[2025-07-09 13:10] LABS: Hematocrit 28.3 % (37.0-47.0); Hemoglobin 9.0 g/dl (12.0-16.0); Imm Gran Abs Auto 0.08 X10*3/uL (0.00-0.03); Imm Gran Pct Auto 0.8 % (0.0-0.4); Lymphocytes Absolute Auto 1.0 X10*3/uL (1.2-4.9); MANUAL DIFF FLAG NO; Mean Corpuscular HGB Conc 31.8 g/dl (31.0-35.0); Mean Corpuscular Hemoglobin 31.8 pg (27.0-33.0); Mean Corpuscular Volume 100.0 fL (80.0-98.0); NRBC Abs Auto 0.000 X10*3/uL (0.0-0.012); NRBC Pct Auto 0.0 /100WBC (0.0-0.2); Platelet Count 194 X10*3/uL (160-400); Red Blood Count 2.83 X10*6/uL (4.20-5.50); White Blood Count 9.8 X10*3/uL (4.8-10.8)
[2025-07-09 13:16] LABS: Venous Blood Gas Refer to POC result
[2025-07-09 13:17] LABS: VBG HCO3 27 mmol/L (22-26); VBG O2 % Saturation 67.0 %
[2025-07-09 13:18] LABS: D Dimer High Sensitivity 418 NG/ML
[2025-07-09 13:28] LABS: Appearance Urine Clear; Glucose Urine UA 500 mg/dL (Negative); PH 6.5 (5.0-9.0); Specific Gravity - Urine 1.015 (1.005-1.025); UMIC TRIGGER UACC YES
[2025-07-09 13:31] LABS: UACC Culture Trigger YES
[2025-07-09 13:32] LABS: Troponin-I High Sensitivity 17.6 ng/L (<3.5-17.0)
[2025-07-09 13:35] LABS: NT Pro B Type Natriuretic Pept 6080.4 pg/mL (<300)
[2025-07-09 13:37] LABS: Alanine Aminotransferase 14 U/L (0-31); Albumin Level 3.5 g/dL (3.5-5.0); Alkaline Phosphatase 143 U/L (39-117); Anion Gap 15 (12-20); Aspartate Amino Transferase 20 U/L (5-31); Blood Urea Nitrogen 66 mg/dL (9-16); Calcium 8.7 mg/dL (8.4-10.2); Carbon Dioxide 23 mmol/L (22-29); Chloride 103 mmol/L (96-108); Creatinine Clr Calc Pharmacy 21.3; Estimated Glomerular Filt Rate 11; Magnesium 1.7 mg/dL (1.6-2.6); Potassium 4.8 mmol/L (3.3-5.1); Sodium 136 mmol/L (135-145); Total Protein 6.7 g/dL (6.5-8.0)
[2025-07-09 13:39] LABS: Resp Syncy Virus RNA Qual PCR NEGATIVE (Negative); SARS COV2 PCR INHOUSE NEGATIVE (Negative)
[2025-07-09] MEDS: iohexoL 350 MG/ML 100 ML INFUS..BTL IV (15:16)
--- OUTSIDE RECORDS SUMMARY | 2025-07-09 15:26 | XMS_ITS | Encounter Summary ---
Author Organization [facility] Address [address] [place] [address] Phone Care Team Providers Care Cherry Cutter Name Role Phone Terry Ochoa MD Primary Care Provider [phone] Encounter Details Date Type Department Care Team (Late st Contact Info) Description 02/05/2021 Documentation Only [facility] [address] [place] [id number] Tawny Churchill [place] Social History Tobacco Use [...] 204 mg/dL BUN 36 mg/dL eGFR Non-Afr Finnish 30 eGFR 35 Sodium 141 mEq/L Potassium 4.5 mEq/L Chloride 111 Carbon Dioxide 18 mmol/L Calcium 8.5 mg/dL Phosphorus, Serum 4.4 mg/dL Albumin (Blood) 2.1 g/dL Creatinine 1.8 mg/dL Anion Gap 12 Blood specimen (specimen) 08/21/2020 Historical Provider LAB BLOOD ORDERABLES Alyssa l Result documented in this encounter Visit Diagnoses Not on filedocumented in this encounter Care Teams Cherry Cutter Relationship Specialty Start Date End Date Terry Ochoa MD [id number] [place], [place] PCP - General Internal Medicine 07/21/23 documented as of this encounter
--- OUTSIDE RECORDS SUMMARY | 2025-07-09 15:27 | XMS_ITS | Clinical Summary ---
Author Organization [facility] Address [address] [facility] [address] [place] [phone] Phone Care Team Providers Care Staff Training And Development Manager Name Role Phone Alexi Lynne MD Primary Care Provider [phone] Allergies No known active allergies Medications hydrALAZINE [...] PM EDT): During her prolonged stay at [place] she required 2 L of oxygen. At [...] PM EDT): During her prolonged stay at [place] she required 2 L of oxygen. At [...] PM EDT): During her prolonged stay at [place] she required 2 L of oxygen. At [...] PM EDT): During her prolonged stay at [place] she required 2 L of oxygen. At [...] PM EDT): During her prolonged stay at [place] she required 2 L of oxygen. At [...] PM EDT): During her prolonged stay at [place] she required 2 L of oxygen. At [...] PM EDT): During her prolonged stay at [place] she required 2 L of oxygen. At [...] AM EDT): During her prolonged stay at [place] she required 2 L of oxygen. At [...] PM EDT): During her prolonged stay at [place] she required 2 L of oxygen. Since [...] PM EDT): During her prolonged stay at [place] she required 2 L of oxygen. Since [...] AM EDT): During her prolonged stay at [place] she required 2 L of oxygen. Since [...] AM EDT): During her prolonged stay at [place] she required 2 L of oxygen. Since [...] PM EDT): During her prolonged stay at [place] she required 2 L of oxygen. Since [...] PM EDT): During her prolonged stay at [place] she required 2 L of oxygen. Since [...] PM EDT): During her prolonged stay at [place] she has required 2 L of oxygen. [...] during this hospitalization. -- Requested records from [facility] and [facility] [place]; re-requested records on 04/19 Assessment & Plan (04/21/2025 4:16 PM EDT): Apparently was started on a 30-day course of treatment with ciprofloxacin in mid February. No findings to suggest active infection at this time. No antibiotics prescribed during this hospitalization. -- Requested records from [facility] and Dr [facility] of [place]; re-requested records on 04/19 Assessment & Plan (04/20/2025 6:23 PM EDT): Apparently was started on a 30-day course of treatment with ciprofloxacin in mid February. No findings to suggest active infection at this time. No antibiotics prescribed during this hospitalization. -- Requested records from [facility] and Dr [facility] of [place]; re-requested records on 04/19 Assessment & Plan (04/19/2025 11:51 AM EDT): Apparently was started on a 30-day course of treatment with ciprofloxacin in mid February. No findings to suggest active infection at this time. No antibiotics prescribed during this hospitalization. -- Requested records from [facility] and Dr [place] of [place]; re-requested records on 04/19 Assessment & Plan (04/18/2025 5:59 PM EDT): Apparently was started on a 30-day course of treatment with ciprofloxacin in february. No findings to suggest active infection at this time. No antibiotics prescribed during this hospitalization. -- Requested records from [facility] -- Continue to hold on further antibiotics. Assessment & Plan (04/17/2025 2:27 PM EDT): Apparently was started on a 30-day course of treatment with ciprofloxacin in mid February. No findings to suggest active infection at this time. No antibiotics prescribed during this hospitalization. -- Requested records from [facility] -- Continue to hold on further antibiotics. Assessment & Plan (04/16/2025 8:33 AM EDT): Apparently was started on a 30-day course of treatment with ciprofloxacin in mid February. No findings to suggest active infection at this time. No antibiotics prescribed during this hospitalization. -- Requested records from [facility] -- Continue to hold on further antibiotics. Assessment & Plan (04/15/2025 11:22 AM EDT): Apparently was started on a 30-day course of treatment with ciprofloxacin in mid February. No findings to suggest active infection at this time. No antibiotics prescribed during this hospitalization. -- Requested records from [facility] -- Continue to hold on further antibiotics. Assessment & Plan (04/14/2025 6:39 PM EDT): Apparently was started on a 30-day course of treatment with ciprofloxacin in mid February. No findings to suggest active infection at this time. No antibiotics prescribed during this hospitalization. -- Requested records from [facility] -- Continue to hold on further antibiotics. Assessment & Plan (04/13/2025 4:02 PM EDT): Apparently was started on a 30-day course of treatment with ciprofloxacin in mid February. No findings to suggest active infection at this time. No antibiotics prescribed during this hospitalization. -- Requested records from Dr. Paul Lebron in [place] -- Continue to hold on further antibiotics. Assessment & Plan (04/12/2025 3:56 PM EDT): Apparently was started on a 30-day course of treatment with ciprofloxacin in mid February. No findings to suggest active infection at this time. No antibiotics prescribed during this hospitalization. -- Requested records from Dr. Paul Lebron in [place] -- Continue to hold on further antibiotics. Assessment & Plan (04/11/2025 3:37 PM EDT): Apparently was started on a 30-day course of treatment with ciprofloxacin in mid February. No findings to suggest active infection at this time. No antibiotics prescribed during this hospitalization. -- Requested records from Dr. Paul Lebron in [place] -- Continue to hold on further antibiotics. Assessment & Plan (04/10/2025 4:52 PM EDT): Apparently was started on a 30-day course of treatment with ciprofloxacin in mid February. No findings to suggest active infection at this time. -- Requested records from Dr. Paul Lebron in [place] -- Hold on additional antibiotics for now Assessment & Plan (04/09/2025 1:32 PM EDT): Apparently was started on a 30-day course of treatment with ciprofloxacin in mid February. No findings to suggest active infection at this time. -- Requestin records from Dr. Paul Lebron in [place] -- Hold on additional antibiotics for now Assessment & Plan (04/07/2025 4:33 PM EDT): Apparently was started on a 30-day course of treatment with ciprofloxacin in mid February. No findings to suggest active infection at this time. -- Will try to obtain records from Dr. Paul Lebron in [place] on Wednesday -- Hold on additional antibiotics for now ESRD (end stage renal disease) 04/05/2025 Assessment & Plan (04/27/2025 9:15 AM EDT): - Patient has been cleared at [facility] unit to start Wednesday at 6:30 AM she can be discharged as long as she has transportation available. Details of outpatient director personal requirements being addressed. -For now we will continue with inpatient HD Wednesday regimen. Tolerating dialysis treatment well, potentially will be DC planning for outpt HD at [facility] [place] next Wednesday. - Continue fluid restriction 1.2 L daily max. Fortunately reaching dry weight. - hepatitis B non-reactive. Will aim for repeat vaccination with Heplisav as outpatient - hgb stable - AVG working well Assessment & Plan (04/26/2025 8:12 AM EDT): - Patient has been cleared at [facility] unit to start Wednesday at 6:30 AM she can be discharged as long as she has transportation available. Details of outpatient director personal requirements being addressed. -For now we will continue with inpatient HD Wednesday regimen. Tolerating dialysis treatment well.Next due tomorrow, potentially will be DC planning for outpt HD at [facility] [place] next Wednesday. - Continue fluid restriction 1.2 L daily max. Fortunately reaching dry weight. - hepatitis B non-reactive. Will aim for repeat vaccination with Heplisav as outpatient - hgb stable - AVG working well Assessment & Plan (04/25/2025 9:51 AM EDT): - Patient has been cleared at [facility] unit to start Wednesday at 6:30 [...] - AVG working well -Details of outpatient director personal requirements being addressed. Assessment & Plan (04/24/2025 9:54 AM EDT): - Patient has been cleared at [facility] to start tomorrow at 6:30 [...] EDT): -Unfortunately despite extensive search locally at [facility] and [facility] no local dialysis center with bariatric bed to accommodate her dialysis. Our team have exhausted all search in the local dialysis centers. Highly suggest to start statewide search and [id number] for other facilities if she needs rehab [...] her dialysis tenure. -If discharged back to [place] outpatient dialysis unit will need transportation. Assessment [...] center across the state. -If discharged to [place] outpatient dialysis unit will need transportation. Assessment [...] for out of area dialysis rehab centers [facility] -Consider PT OT while inpatient assess risk of fall and ability to move to a chair. -Other options check with previous outpatient unit in [place] if still available chair and able to [...] for out of area dialysis rehab centers [facility] -Consider PT OT while inpatient assess risk of fall and ability to move to a chair. -Other options check with previous outpatient unit in [place] if still available chair and able to [...] on dialysis unit placement awaiting clearance through [facility] or [facility] but she has been declined by both so far due to concerns about her ability to transfer and sit in dialysis. There are no beds available throughout the area for dialysis clinics. -Our team continues to search for local unit, I would kindly ask case management to start looking for out of area dialysis rehab centers [facility] -Consider PT OT while inpatient assess [...] potassium binding resin. - Will inquire with [facility] hopefully able to be discharged to outpatient [...] been discharged from [facility] her dialysis center was in [place] but she lives in [place] and she did not have transportation. She was volume overloaded on presentation, requiring HD. Nephrology was consulted. Patient is requiring a bariatric BED for hemodialysis. 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 Patient has a bariatric dialysis bed at [place] dialysis unit. Patient remained in hospital for dialysis on 04/25. - certified ophthalmic assistant unavailable until Friday 04/27, will remain here [...] been discharged from [facility] her dialysis center was in [place] but she lives in [place] and she did not have transportation. She was volume overloaded on presentation, requiring HD. Nephrology was consulted. Patient is requiring a bariatric BED for hemodialysis. 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 Patient has a bariatric dialysis bed at [place] dialysis unit. Patient remained in hospital for dialysis on 04/25. - certified ophthalmic assistant unavailable until Friday 04/27, will remain here [...] been discharged from [facility] her dialysis center was in [place] but she lives in [place] and she did not have transportation. She [...] 04/19. Attempts were made for dialysis in [place] however patient was declined on 04/22 Last HD was 04/23 with removal of 5 L. Stable hemodynamically. Spoke with Dr. Esteban and patient has a bariatric dialysis bed and [facility]. Initial plans were for discharge today with outpatient dialysis on 04/25 however dialysis time was at 6:30 in the morning and patient did not have [employer] coverage to be discharged home tonight. Patient remained in hospital for dialysis on 04/25. - Goal is for discharge home on 04/25 once certified ophthalmic assistant can be established to be in the [...] been discharged from [facility] her dialysis center was in [place] but she lives in [place] and she did not have transportation. She [...] 04/19. Attempts were made for dialysis in [place] however patient was declined on 04/22 04/23 Status post HD today with removal of 5 L. Stable hemodynamically. -discussed with patient in multidisciplinary rounds. Quantitative Consultant Dr. Esteban has secured a bariatric chair for patient in [place]. - Anticipate chair will be ready in 24 to 48 hours. -Continue torsemide - HD Wednesday. - Continue 1 L fluid restriction Assessment & Plan (04/22/2025 4:03 PM EDT): Patient history of end-stage renal disease on dialysis Wednesday and Wednesday presented for fluid overload due to inability to access hemodialysis. She had been discharged from [facility] her dialysis center was in [place] but she lives in [place] and she did not have transportation. She [...] no bariatric HD chair available. Declined by [facility]. -Continue torsemide - HD Wednesday. - Continue 1 L fluid restriction -Case management/social work and personal property appraiser continue to search for bariatric chair for outpatient dialysis. Assessment & Plan (04/21/2025 4:16 PM EDT): Patient history of end-stage renal disease on dialysis Wednesday and Wednesday presented for fluid overload due to inability to access hemodialysis. She had been discharged from [facility] her dialysis center was in [place] but she lives in [place] and she did not have transportation. She [...] no bariatric HD chair available. Declined by [facility]. -Continue torsemide - HD Wednesday. - Continue 1 L fluid restriction -Case management/social work and personal property appraiser continue to search for bariatric chair for outpatient dialysis. Assessment & Plan (04/20/2025 6:23 PM EDT): Patient history of end-stage renal disease on dialysis Wednesday and Wednesday presented for fluid overload due to inability to access hemodialysis. She had been discharged from [facility] her dialysis center was in [place] but she lives in [place] and she did not have transportation. She [...] been discharged from [facility] her dialysis center was in [place] but she lives in [place] and she did not have transportation. She [...] been discharged from [facility] her dialysis center was in [place] but she lives in [place] and she did not have transportation. Patient [...] been discharged from [facility] her dialysis center was in [place] but she lives in [place] and she did not have transportation. Patient [...] been discharged from [facility] her dialysis center was in [place] but she lives in [place] and she did not have transportation. Patient [...] been discharged from [facility] her dialysis center was in [place] but she lives in [place] and she did not have transportation. Patient [...] been discharged from [facility] her dialysis center was in [place] but she lives in [place] and she did not have transportation. Patient [...] been discharged from [facility] her dialysis center was in [place] but she lives in [place] and she did not have transportation. -Received [...] from SNF her dialysis center was in [place] but she lives in [place] and she did not have transportation. -Received [...] been discharged from [facility] her dialysis center was in [place] but she lives in [place] and she did not have transportation. --Spoke [...] been discharged from [facility] her dialysis center was in [place] but she lives in [place] and she did not have transportation. --Spoke [...] been discharged from [facility] her dialysis center was in [place] but she lives in [place] and she did not have transportation. --Spoke [...] been discharged from [facility] her dialysis center was in [place] but she lives in [place] and she did not have transportation Case [...] was discharged from [facility] her dialysis center was in [place] but she lives in [place] and she did not have transportation Case [...] was discharged from [facility] her dialysis center was in [place] but she lives in [place] and she did not have transportation Nephrology [...] and a low-dose insulin sliding scale with [id number] testing. - Obtain hemoglobin A1c in the [...] Patient states that since her admission to [facility] over the last 10 months she [...] Patient states that since her admission to [facility] over the last 10 months she [...] Patient states that since her admission to [facility] over the last 10 months she [...] obtain records from Dr. Paul Lebron in [place]. Assessment & Plan (04/09/2025 1:32 PM EDT): Patient states history of recurrent UTI currently on ciprofloxacin for 30 days. Patient asymptomatic. No concerns for infection presently - At presentation ciprofloxacin held because of risk versus benefit concerns agree that there may be greater risk than benefit of continuing ciprofloxacin at this point --Will try to obtain records from Dr. Paul Lebron in [place] on Wednesday Assessment & Plan (04/08/2025 3:43 [...] obtain records from Dr. Paul Lebron in [place] on Wednesday Assessment & Plan (04/07/2025 2:46 [...] 9:15 AM EDT Emergency [facility] [address] [place] [address] Gumaro Hernandez DO Daul, Adrian D, MD Discharge Disposition: Home or Self Care 04/17/2025 Episode Documentatio n Update [facility] [address] [place], [place] [phone] Salma Reyes 04/08/2025 Orders Only [facility] [address] [place], [place] [phone] Homehealth, Interface MD Eloisa 04/05/2025 3:05 PM EDT - 04/27/2025 3:17 PM EDT Hospital Encounter [facility] [address] [place] [address] Joseph Green MD Kielbasa, Shasta A, MD [...] SMOKING Hx and SMOKELESS TOBACCO SCREENING 1971 LIPID PANEL 1976 PNEUMOCOCCAL VACCINES (50+ years) [...] HEMOGLOBIN A1C 10/07/2025 04/06/2025, 10/07/2022, 02/04/2022 HEPATITIS C SCREENING Completed 04/24/2025 , 04/05/2025 HEPATITIS A VACCINES Aged Out No long er eligible based on patient's age to complete this topic HIB VACCINES Aged Out No longer eligi ble based on patient's age to complete this topic IPV VACCINES Aged Out No longer eligi ble [...] 06/05/2025 10:30 PM EDT BASIC METABOLIC PANEL (BMP) STAT 06/05/2025 10:30 PM EDT CBC AND [...] 04/25/2025 8:04 AM EDT BASIC METABOLIC PANEL (BMP) Routine 04/25/2025 8:04 AM EDT POCT GLUCOSE [...] 04/23/2025 8:49 AM EDT BASIC METABOLIC PANEL (BMP) Routine 04/23/2025 8:49 AM EDT POCT GLUCOSE [...] 04/18/2025 8:57 AM EDT BASIC METABOLIC PANEL (BMP) STAT 04/18/2025 6:00 AM EDT CBC STAT [...] 04/15/2025 6:01 AM EDT COMPREHENSIVE METABOLIC PANEL (CMP) Routine 04/15/2025 6:01 AM EDT CBC AND [...] SEDIMENT Routine 04/12/2025 2:45 PM EDT URINALYSIS WITH REFLEX TO URINE CULTURE Routine 04/12/2025 2:45 PM EDT URINE CULTURE Routine 04/12/2025 2:45 PM EDT POCT GLUCOSE Routine 04/12/2025 12:07 PM EDT POCT GLUCOSE Routine 04/12/2025 7:40 AM EDT CBC Routine 04/12/2025 5:34 AM EDT BASIC METABOLIC PANEL (BMP) Routine 04/12/2025 5:34 AM EDT POCT GLUCOSE [...] 04/10/2025 10:42 AM EDT BASIC METABOLIC PANEL (BMP) STAT 04/10/2025 10:42 AM EDT POCT GLUCOSE [...] POCT GLUCOSE Routine 04/08/2025 7:26 AM EDT HEMOGLOBIN A1C Routine 04/06/2025 6:33 AM EDT from Last 3 Months or Most Recently Relevant to Health Maintenance Results * XR Chest Portable (06/05/2025 10:37 [...] LFTs (hepatic panel) (06/05/2025 10:30 PM EDT) Pathologist [facility] ALKALINE PHOSPHATASE 125(H) 39 - 117 U/L [facility] TOTAL BILIRUBIN 0.4 0.0 - 1.2 mg/dL [facility] DIRECT BILIRUBIN 0.2 0.0 - 0.2 mg/dL [facility] Bilirubin (Indirect) 0.2 0 - 1.5 mg/dL [facility] AST 14 0 - 37 U/L [facility] ALT 10 0 - 40 U/L [facility] TOTAL PROTEIN 6.4(L) 6.5 - 8.0 g/dL [facility] ALBUMIN 3.6(L) 3.9 - 4.8 g/dL [facility] GLOBULIN 2.8 1 - 4.8 g/dL [facility] A/G Ratio 1.29 1.00 - 4.80 RATIO [facility] Blood 06/05/2025 10:3 0 PM EDT 06/05/2025 10:35 PM EDT us Gumaro Hernandez DO LAB BLOOD BKR ORDERABLES Alyssa medina Result [facility] [address] [place] [address] * (ABNORMAL) CBC and differential (06/05/2025 10:30 PM EDT) Only the most recent of3 resultswithin the time period is included. Pathologist [facility] WBC 9.35 4.00 - 11.00 K/uL [facility] RBC 2.64(L) 4.00 - 5.20 M/uL [facility] HGB 8.6(L) 12.0 - 16.0 g/dL [facility] HCT 25.9(L) 36.0 - 46.0 % [facility] PLT 190 150 - 450 K/uL [facility] MCV 98.1 80.0 - 100.0 fL [facility] MCH 32.6(H) 27.0 - 31.0 pg [facility] MCHC 33.2 32.0 - 36.0 g/dL [facility] RDW 13.2 11.5 - 14.5 % [facility] MPV 9.8 8.4 - 12.0 fL [facility] NRBC 0.00 0.00 /100 WBCs [facility] ABSOLUTE NRBC 0.00 0.00 K/uL [facility] DIFF METHOD Auto [facility] NEUTS 72.8 48.0 - 76.0 % [facility] LYMPHS 14.8(L) 18.0 - 41.0 % [facility] MONOS 8.7 4.0 - 11.0 % [facility] EOS 2.7 0.0 - 5.0 % [facility] BASOS 0.6 0.0 - 1.5 % [facility] Granulocytes, immature (%) 0.4 0.0 - 0.9 % [facility] ABSOLUTE NEUTS 6.81 1.92 - 7.60 K/uL [facility] ABSOLUTE LYMPHS 1.38 0.72 - 4.10 K/uL [facility] ABSOLUTE MONOS 0.81 0.16 - 1.10 K/uL [facility] ABSOLUTE EOS 0.25 0.00 - 0.50 K/uL [facility] ABSOLUTE BASOS 0.06 0.00 - 0.15 K/uL [facility] Granulocytes, immature 0.04 0.00 - 0.09 K/uL [facility] Blood 06/05/2025 10:3 0 PM EDT 06/05/2025 10:35 PM EDT us Gumaro Hernandez DO LAB BLOOD BKR ORDERABLES Alyssa medina Result [address] [address] * (ABNORMAL) Basic metabolic panel (06/05/2025 10:30 PM EDT) Only the most recent of6 resultswithin the time period is included. SODIUM 135 133 - 146 mmol/L [facility] CHLORIDE 96 96 - 108 mmol/L [facility] POTASSIUM 4.0 3.3 - 5.1 mmol/L [facility] CO2 26 21 - 35 mmol/L [facility] BUN 42(H) 6 - 19 mg/dL [facility] CREATININE 3.30(H) 0.5 - 1.5 mg/dL [facility] GLUCOSE 321(H) 70 - 99 mg/dL [facility] CALCIUM 8.1(L) 8.4 - 10.3 mg/dL [facility] EGFR 15(L) >59 mL/min/1.7 3m2 [facility] Comment:Estimated glomerular filtration rate calculated using the CKD-EPI refit equation. ANION GAP 17 10 - 20 mmol/L [facility] Blood 06/05/2025 10:3 0 PM EDT 06/05/2025 10:35 PM EDT us Gumaro Hernandez DO LAB BLOOD BKR ORDERABLES Alyssa l Result Performing Organization Address [facility] Co de Phone Number [facility] [address] [place] [address] * ECG 12-LEAD (06/05/2025 10:03 PM EDT) Ventricular Rate EKG/MIN 67 BPM [facility] Atrial Rate 67 BPM [facility] AK Interval 144 ms [facility] QRS Duration 96 ms [facility] QT Interval 466 ms [facility] QTC Interval 492 ms [facility] R Wave Circle -40 degrees [facility] T Wave Circle 50 degrees [facility] 06/05/2025 10:0 3 PM EDT 06/06/2025 8:56 AM EDT Narrative [facility] - 06/06/2025 8:56 AM EDT Normal sinus rhythm Left axis deviation Prolonged QT Abnormal ECG When compared with ECG of 05-Apr-2025 16:16, No significant change was found Confirmed by Zackary August ([id number]) on 06/06/2025 8:56:48 AM us Gumaro Norton Hernandez DO ECG ORDERABLES Final Result Performing Organization Address [facility] Co de Phone Number [email or web address] * (ABNORMAL) POCT Glucose (04/27/2025 1:51 PM EDT) Only the most recent of80 resultswithin the time period is included. Glucose, POCT 159(H) 70 - 100 mg/dL [facility] 04/27/2025 1:51 PM EDT 04/27/2025 1:57 PM EDT us Jennifer Chapin MD POINT OF CARE TEST ORDERABLE S Final Result Performing Organization Address City/[facility] Co de Phone Number [address] [address] * Hepatitis B surface antigen (04/24/2025 11:00 AM EDT) Pathologist [facility] HBV SURFACE ANTIGEN NON-REACTI VE NON-REACTI VE [facility] Blood 04/24/2025 11:0 0 AM EDT 04/25/2025 8:15 AM EDT us Chemo Esteban MD LAB BLOOD BKR ORDERABLES Final R esult Performing Organization Address City/[facility] Co de Phone Number [address] [address] * (ABNORMAL) CBC (04/23/2025 8:49 AM EDT) Only the most recent of4 resultswithin the time period is included. WBC 8.51 4.00 - 11.00 K/uL [facility] RBC 3.41(L) 4.00 - 5.20 M/uL [facility] HGB 11.1(L) 12.0 - 16.0 g/dL [facility] HCT 33.8(L) 36.0 - 46.0 % [facility] PLT 181 150 - 450 K/uL [facility] MCV 99.1 80.0 - 100.0 fL [facility] MCH 32.6(H) 27.0 - 31.0 pg [facility] MCHC 32.8 32.0 - 36.0 g/dL [facility] RDW 13.6 11.5 - 14.5 % [facility] MPV 10.3 8.4 - 12.0 fL [facility] NRBC 0.00 0.00 /100 WBCs [facility] ABSOLUTE NRBC 0.00 0.00 K/uL [facility] Blood 04/23/2025 8:49 AM EDT 04/23/2025 9:22 AM EDT us Maris Navarro MD LAB BLOOD BKR ORDERABLES Final Result [address] [address] * (ABNORMAL) Comprehensive metabolic panel (04/15/2025 6:01 AM EDT) SODIUM 139 133 - 146 mmol/L [facility] POTASSIUM 4.7 3.3 - 5.1 mmol/L [facility] CHLORIDE 101 96 - 108 mmol/L [facility] CO2 27 21 - 35 mmol/L [facility] BUN 50(H) 6 - 19 mg/dL [facility] CREATININE 3.50(H) 0.5 - 1.5 mg/dL [facility] GLUCOSE 130(H) 70 - 99 mg/dL [facility] ALBUMIN 3.6(L) 3.9 - 4.8 g/dL [facility] TOTAL PROTEIN 6.5 6.5 - 8.0 g/dL [facility] CALCIUM 9.1 8.4 - 10.3 mg/dL [facility] ALKALINE PHOSPHATASE 136(H) 39 - 117 U/L [facility] TOTAL BILIRUBIN 0.5 0.0 - 1.2 mg/dL [facility] AST 14 0 - 37 U/L [facility] ALT 9 0 - 40 U/L [facility] GLOBULIN 2.9 1 - 4.8 g/dL [facility] EGFR 14(L) >59 mL/min/1.7 3m2 [facility] Comment:Estimated glomerular filtration rate calculated using the CKD-EPI refit equation. ANION GAP 16 10 - 20 mmol/L [facility] Blood 04/15/2025 6:01 AM EDT 04/15/2025 6:41 AM EDT us Jessica Ribera DO, MPH LAB BLOOD BKR O RDERABLES Final Result Performing Organization Address [facility] Co de Phone Number [address] [address] * Phosphorus (04/15/2025 6:01 AM EDT) Only the most recent of2 resultswithin the time period is included. PHOSPHORUS 3.9 2.7 - 4.5 mg/dL [facility] Blood 04/15/2025 6:01 AM EDT 04/15/2025 6:41 AM EDT Jessica Ribera DO, MPH LAB BLOOD BKR O RDERABLES Final Result Performing Organization Address [facility] Co de Phone Number [address] [address] * Magnesium (04/15/2025 6:01 AM EDT) Only the most recent of2 resultswithin the time period is included. MAGNESIUM 2.1 1.6 - 2.6 mg/dL [facility] Blood 04/15/2025 6:01 AM EDT 04/15/2025 6:41 AM EDT Jessica Ribera DO, MPH LAB BLOOD BKR O RDERABLES Final Result Performing Organization Address [facility] Co de Phone Number [address] [address] * (ABNORMAL) Urinalysis w/reflex Urine Culture (04/12/2025 2:45 PM EDT) COLOR Yellow Yellow [facility] CLARITY Clear [facility] GLUCOSE Negative Negative [facility] BILI Negative Negative [facility] KETONES Negative Negative [facility] SPECIFIC GRAVITY 1.015 1.005 - 1.030 [facility] BLOOD Negative Negative [facility] PH 6.0 5.0 - 8.0 [facility] Protein-UA 2+(A) Negative [facility] NITRITE Negative Negative [facility] Leukocyte esterase, ur Trace(A) Negative [facility] Urine (Urine) 04/12/2025 2:4 5 PM EDT 04/12/2025 2:53 PM EDT us Maris Navarro MD LAB URINE ORDERABLES Final Resu lt Performing Organization Address [facility]/ZIP Co de Phone Number [address] [address] * (ABNORMAL) Urine Culture (04/12/2025 2:45 PM EDT) Special Requests None Reflexed from [id number] 04/12/2025 3:43 PM EDT [facility] Urine Culture 10,000 to 100,000 colony forming units per mL YEAST(A) 04/14/2025 8:32 AM EDT [facility] Urine 04/12/2025 2:45 PM EDT 04/12/2025 2:53 PM EDT Maris Navarro MD LAB MICROBIOLOGY CULTURE ORDERA BLES Final Result Performing Organization Address [facility] Co de Phone Number [address] [address] * (ABNORMAL) Urine sediment (04/12/2025 2:45 PM EDT) WBC 11-20(A) NONE SEEN /hpf [facility] RBC 0-2(A) NONE SEEN /hpf [facility] URINE EPITHELIAL 0-4(A) NONE SEEN [facility] MUCUS NONE SEEN NONE SEEN /hpf [facility] BACTERIA Trace(A) NONE SEEN /hpf [facility] YEAST 1+(A) NONE SEEN /hpf [facility] 04/12/2025 2:45 PM EDT 04/12/2025 2:53 PM EDT us Maris Navarro MD LAB URINE ORDERABLES Final Resu lt Performing Organization Address City/[facility]/ZIP Co de Phone Number [address] [address] * (ABNORMAL) Hemoglobin A1c (04/06/2025 6:33 AM EDT) HEMOGLOBIN A1C 7.0(H) 4.3 - 5.8 % [facility] Blood 04/06/2025 6:33 AM EDT 04/06/2025 6:37 AM EDT Joseph Green MD LAB BLOOD BKR ORDERABLES Final Result [address] [address] from Last 3 Months or Most Recently Relevant to Health Maintenance Insurance MEDICARE REPLACEMENT Member Subscriber Plan / Payer (Ef fective 2021-Present) Name:Isabel Carcamo Relation to Subscriber:Self Name:Anh Carcamoa Payer ID:[id number] (NAIC) Type:Medicare Address: [place] [id number] [id number] MEDICARE REPLACEMENT [place] [id number] [place] MED[place]ARE PART A & B MEDICARE REPLACEMENT [facility] MEDICARE PART A & B [facility] MEDICARE REPLACEMENT [facility] MEDICARE PART A & B [facility] MEDICARE REPL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 Cryptanalyst Expl anation Healthcare Proxy 05/02/2025 2:05 PM Healthcare Proxy 04/18/2025 9:29 AM health care proxy * Full Code (Latest Code Status on File) Date Activated Date Inactivated Comments 04/05/2025 8:51 PM Question Answer Comments Code Status Confirmed With: Patient Code Status Communicated To: Inpatient Attending Care Teams Staff Training And Development Manager Relationship Specialty Start Date End Date Alexi Lynne MD [address] [place] [address] [place] [address] PCP - General Internal Medicine 04/05/25 Additional Source Comments The information contained in this document represents components of the legal health record. It is not the complete legal health record.[facility]
--- OUTSIDE RECORDS SUMMARY | 2025-07-09 15:27 | XMS_ITS ---
Author Organization [facility] Care Team Providers Care Lithographic Plate Maker Name Role Phone LambertClifton raymond Unavailable Unavailable Allergies and adverse reactions Code CodeSystem Substance Reaction Severity StartDate Concern Status 9395354 RXNORM Canagliflozin Moderate 07/15/2022 active 6809 RXNORM metFORMIN Unknown 07/15/2022 active Care Team Name Role Address Phone Organization Dates Clifton Jhonny PCP [address], [place], [address], [place] (Office): : [facility] 07/15/2022 - 03/13/2023 Goals Section Goals Description [...] Date Indication Senna Tablet 8.6 MG active 91632 5 RXNORM 2 table t Oral at [...] Status 1 ACUTE KIDNEY FAILURE, UNSPECIFIED 11/26/[address] active 2 PERSONAL HISTORY OF COVID-19 11/26/[address] active 3 ACUTE RESPIRATORY FAILURE WITH HYPOXIA 11/25/[address] active 4 COVID-19 11/25/2022 12/28/[address] compl eted 5 CHRONIC DIASTOLIC (CONGESTIVE) HEART FAILURE 10/18/[address] active 6 WEAKNESS 10/18/[address] active 7 CONSTIPATION, UNSPECIFIED 07/28/[address] active 8 DIFFICULTY IN WALKING, NOT ELSEWHERE CLASSIFIED 07/28/[address] active 9 OTHER CHRONIC PAIN 07/28/[address] active 10 OTHER MALAISE 07/28/[address] act eileen 11 ANEMIA, UNSPECIFIED 07/15/[address] active 12 BLADDER-NECK OBSTRUCTION 07/15/[address] active 13 CHRONIC KIDNEY DISEASE, STAGE 4 (SEVERE) 07/15/[address] active 14 DIABETES MELLITUS DUE TO UNDERLYING CONDITION WITH DIABETIC NEUROPATHY, UNSPECIFIED 07/15/[address] active 15 ESSENTIAL (PRIMARY) HYPERTENSION 07/15/[address] active 16 GASTRO-ESOPHAGEAL REFLUX DISEASE WITHOUT ESOPHAGITIS 07/15/[address] active 17 HEART FAILURE, UNSPECIFIED 07/15/[address] active 18 HYPERLIPIDEMIA, UNSPECIFIED 07/15/[address] active 19 HYPERTENSIVE HEART AND CHRONIC KIDNEY DISEASE WITH HEART FAILURE AND STAGE 1 THROUGH STAGE 4 CHRONIC KIDNEY DISEASE, OR UNSPECIFIED CHRONIC KIDNEY DISEASE 07/15/[address] active 20 IRRITANT CONTACT DERMATITIS DUE TO FECAL, URINARY OR DUAL INCONTINENCE 07/15/[address] active 21 MORBID (SEVERE) OBESITY DUE TO EXCESS CALORIES 07/15/[address] active 22 MUSCLE WEAKNESS (GENERALIZED) 07/15/[address] active 23 NAUSEA 07/15/[address] active 24 OVERACTIVE BLADDER 07/15/[address] T active 25 RESTLESS LEGS SYNDROME 07/15/[address] active 26 TYPE 2 DIABETES MELLITUS WITHOUT COMPLICATIONS 07/15/[address] active 27 URINARY TRACT INFECTION, SITE NOT SPECIFIED 07/15/2022 09/30/[address] completed Reason for Referral No Reasons for Referral Entered Social History Social History Observation Description Start Date End Date Code Code System Current Smoking Status Tobacco smoking consumption unknown 111638351 SNOMED CT Sex Assigned At Female 1960 92590-5 [facility] Gender Identity Sexual Orientation Vital Signs Code Code System Vitals Name Values and Units Timing Information 46208-9 [facility] Pain Level Value=0.0 03/13/2023 2339-0 [facility] Blood Sugar Lglqo=078.0 Units=mg/dL 03/13/2023 8310-5 [facility] Body Temperature Value=98.0 Units= F 03/08/2023 40417-2 [facility] Weight Vqafw=960.0 Units=Lbs 04/2023 9279-1 [facility] Respiratory Rate Value=18.0 Units=/m in 02/24/2023 8462-4 [facility] Blood Pressure-Diastolic Value=76 Un its=mmHg 02/24/2023 8480-6 [facility] Blood Pressure-Systolic Lhjaz=499 Un its=mmHg 02/24/2023 8867-4 [facility] Heart rate Value=76.0 Units=/min 28819-4 [facility] O2 % dC Oximetry Value=97.0 Units= % 02/24/2023 8302-2 [facility] Height Value=66.0 Units=Inches 07/15/2022
--- OUTSIDE RECORDS SUMMARY | 2025-07-09 15:27 | XMS_ITS | Encounter Summary ---
Author Organization [facility], Address [address] [place] [address] Phone Care Team Providers Care Thread Milling Machine Set Up Operator Name Role Phone Terry Ochoa MD Primary Care Provider [phone] Encounter Details Date Type Department Care Team (Late st Contact Info) Description 07/04/2025 Treatment [facility], [address] [place] [phone] Benita Garrison FNP-C [address] [place] [address] [place] [address] End stage renal disease; Dependence on renal [...] Dialysis Note - Benita Garrison FNP-C - 07/04/2025 12:00 AM EST Patient: Isabel Carcamo, 1960, 65y, F Dialysis Location: [facility] [place] Attending Bridge Repair Crew Person: Alan Mccarthy Service Date: 07/04/2025 Service Provider: Benita Garrison NP I met face to face with the patient today. OVERVIEW The patient presented with ESRD on dialysis Primary cause of renal failure: Type 2 Diabetes mellitus with diabetic nephropathy LAST HOSPITALIZATION Discharge Diagnosis: R19.7 Diarrhea, unspecified Admission Date 06/18/25 Discharge Date 06/19/25 DIALYSIS PRESCRIPTION IHD 3x Week Start date: 06/08/25 Dialyzer: FX CorAL 80 BFR: 450 DFR: Manual 800 Potassium: 2.0 Sodium: 137 EDW: 140 Duration: 4:15 Calcium: 2.50 Bicarb: 35 Rx updated on: 06/08/2025 TREATMENT ASSESSMENT BP Sit Pre 07/04/2025: 195/83 07/02/2025: 159/43 06/25/2025: 153/66 BP Sit Post 07/04/2025: 185/73 07/02/2025: 177/79 06/25/2025: 138/78 Prescribed Tx time 07/04/2025: 4:15 07/02/2025: 4:15 06/25/2025: 4:15 Tx Duration 07/04/2025: 4:14 07/02/2025: 4:19 06/25/2025: 4:06 Missed Treatments 5 - last 30 days 5 - last 60 days 06/29 - recent FLUID ASSESSMENT EDW (kg) 07/04/2025: 140.0 07/02/2025: 140.0 06/25/2025: 140.0 Weight Pre (kg) 07/04/2025: 159.6 07/02/2025: 156.5 06/25/2025: 148.7 Weight Post (kg) 07/04/2025: 154.5 07/02/2025: 154.6 06/25/2025: 145.7 PWV (kg) 07/04/2025: 14.5 07/02/2025: 14.6 06/25/2025: 5.7 UF Rate (mL/kg/hr) 07/04/2025: 7.8 07/02/2025: 2.8 06/25/2025: 5 ADEQUACY ASSESSMENT spKt/V, URR 06/04/2025: 1.5, 70.0 05/11/2025: 1.6, 75.0 ACCESS ASSESSMENT Access Type: AVGraft Access SubType: Unknown Access Status: Active (In Use) - 04/25/2025 Access Location: Left Forearm Created: 06/14/2024 Flow 06/20/2025: 807 06/08/2025: 788 ANEMIA ASSESSMENT HGB, TSAT 07/02/2025: 9.4, - 06/20/2025: 8.8, - 05/30/2025: 9.8, 38.0 Ferritin 05/30/2025: 415.0 05/11/2025: 508.0 Mircera, IVP (mcg) 07/04/2025: 100 06/20/2025: 75 Iron Sucrose (Venofer) (mg) 07/02/2025: 50 06/08/2025: 50 BMM ASSESSMENT PTH, Intact 05/30/2025: 936.0 05/11/2025: 846.0 Calcium, Phosphorus 05/30/2025: 8.7, 4.6 05/11/2025: 8.7, 5.2 Vitamin D (Calcitriol) Oral (mcg) 07/04/2025: 0.5 07/02/2025: 0.5 06/25/2025: 0.5 NUTRITION ASSESSMENT Potassium, Albumin 05/30/2025: 4.2, 3.6 05/11/2025: 4.5, 3.6 eNPCR 06/04/2025: 0.93 DIAGNOSIS Chief Complaint: N18.6 End stage renal disease Comments: significantly above EDW. discussed with her fluid restriction. excessive fluid gains and missed treatments. Educated regarding fluid restriction Patient is stable. Patient data updated 07/05/2025 at 10:21 AM Signed By: Benita Garrison NP on 07/05/2025 10:21:48 AM documented in this encounter Plan of Treatment Not on file documented as of this encounter Visit Diagnoses Diagnosis End stage renal disease Dependence on renal dialysis documented in this encounter Care Teams Thread Milling Machine Set Up Operator Relationship Specialty Start Date End Date Terry Ochoa MD [address] [place], [place] PCP - General Internal Medicine 07/21/23 documented as of this encounter
--- OUTSIDE RECORDS SUMMARY | 2025-07-09 15:27 | XMS_ITS | Clinical Summary ---
Author Organization [facility] Address [address] [place] [address] Phone Care Team Providers Care Data Typist Name Role Phone Alexi Lynne MD Primary Care Provider [phone] Allergies Active Allergy Reactions Criticality Noted Date Comments Canagliflozin 05/30/2025 Metformin 05/30/2025 Encounters Date Type Department Care Team Description 05/30/2025 3:22 PM EDT - 05/30/2025 8:40 PM EDT Emergency [facility] Emergency [address] [place] [address] Dain Das MD Dizziness (Primary Dx); Hypotension, unspecified hypotension type Discharge Disposition: Home or Self Care from Last 3 Months Social History Tobacco Use Types Packs/Day Years Used Date Smoking Tobacco: Never Assessed Comments Unknown Sex and Gender Information Value Date Recorded Sex Assigned at Not on file Legal Sex Female 11:40 PM EST Gender Identity Not on file Sexual Orientation Not on file Obstetrics History Last Filed Vital Signs Vital Sign Reading Time Taken Comments Blood Pressure 134/88 05/30/2025 8:07 PM EDT Pulse 65 05/30/2025 8:07 PM EDT Temperature 37.1 C (98.7 F) 05/30/2025 8:07 PM EDT Respiratory Rate 18 05/30/2025 8:07 PM EDT Oxygen Saturation 98% 05/30/2025 8:07 PM EDT Inhaled Oxygen Concentration - - Weight 146 kg (321 lb 10.4 oz) 05/30/2025 4:08 P M EDT Height 167.6 cm (5' 6 ) 05/30/2025 4:30 PM EDT Body Mass Index 51.92 05/30/2025 4:08 PM EDT Plan of Treatment Health Maintenance Due Date Last Done Comments Breast Cancer Screening 1960 Colorectal Cancer Screening: Colonoscopy 1960 Diabetes: Annual Foot Exam 1968 Diabetes: Annual Retina Eye Exam 1968 DTaP,Tdap,and Td Vaccines (1 - Tdap) 1977 RSV Immunization Adult Patients (1 - Risk 50-74 years 1-dose series) 2008 Zoster Vaccines (1 of 2) 2008 Cholesterol Screening (Lipid Panel) 08/02/2022 Hepatitis C Screening 08/02/2022 Medicare Annual Wellness Visit 08/02/2022 Osteoporosis Screening (Bone Density Screening) 08/02/2022 Social Influencers of Health Screening 08/02/2022 Falls Risk Assessment 2023 Depression Screening 08/30/2024 Influenza Vaccine (#1) 2025 , 07/21/2022, 06/28/2020, Additional history exists Diabetes: Annual Urine Albumin-Creatinine Ratio (uACR) 05/30/2025 Diabetes: Blood Sugar Control Test (HGBA1C) 05/30/2025 02/04/2022 Diabetes: Annual GFR (Glomerular Filtration Rate) 05/30/2026 05/30/2025, 04/15/2025, 04/06/2025 Hypertension/CHF/CAD Annual BMP Blood Test 05/30/2026 05/30/2025, 04/15/2025, 04/06/2025 Pneumococcal Vaccine: 50+ Years Completed 05/21/2023 COVID-19 Vaccine Completed 02/07/2025, 09/2023, 07/05/2023, Additional history exists HIB Vaccines Aged Out No longer eligi ble based on patient's age to complete this topic HPV Vaccines Aged Out No longer eligi ble based on patient's age to complete this topic Hepatitis A Vaccines Aged Out No long er eligible based on patient's age to complete this topic Hepatitis B Vaccines Aged Out No long er eligible based on patient's age to complete this topic IPV Vaccines Aged Out No longer eligi ble based on patient's age to complete this topic MMR Vaccines Aged Out No longer eligi ble based on patient's age to complete this topic Meningococcal ACWY Vaccine Aged Out N o longer eligible based on patient's age to complete this topic Meningococcal B Vaccine Aged Out No l onger eligible based on patient's age to complete this topic RSV Immunization Patients Under 20 months Aged Out No longer eligible based on patient's age to complete this topic Varicella Vaccines Aged Out No longer eligible based on patient's age to complete this topic Procedures Procedure Name Priority Date/Time Associated Diagnosis Comments ECG ANNOTATED 05/31/2025 CBC WITH AUTO DIFFERENTIAL STAT 05/30/2025 5:24 PM EDT CBC AND DIFFERENTIAL STAT 05/30/2025 5:24 PM EDT BASIC METABOLIC PANEL STAT 05/30/2025 5:24 PM EDT ECG 12-LEAD STAT 05/30/2025 4:11 PM EDT from Last 3 Months Results * ECG-Annotated (05/31/2025) us Provider Onbase MD ECG ORDERABLES Final Result * (ABNORMAL) CBC auto differential (05/30/2025 5:24 PM EDT) WBC 9.8 4.8 - 10.8 K/mcL LAB HEMETOLOGY METHOD 05/30/2025 5:47 PM EDT [facility] RBC 2.90(L) 3.80 - 4.80 M/mcL LAB HEMETOLOGY METHOD 05/30/2025 5:47 PM EDT [facility] Hemoglobin 9.5(L) 11.5 - 16.0 g/dL LAB HEMETOLOGY METHOD 05/30/2025 5:47 PM EDT [facility] Hematocrit 28.6(L) 35.0 - 47.0 % LAB HEMETOLOGY METHOD 05/30/2025 5:47 PM EDT [facility] MCV 97.3 79.0 - 98.0 FL LAB HEMETOLOGY METHOD 05/30/2025 5:47 PM EDT [facility] MCH 32.3(H) 27.0 - 32.0 pcg LAB HEMETOLOGY METHOD 05/30/2025 5:47 PM EDT [facility] MCHC 33.2 32.0 - 37.0 g/dL LAB HEMETOLOGY METHOD 05/30/2025 5:47 PM EDT [facility] RDW 13.6 11.0 - 15.0 % LAB HEMETOLOGY METHOD 05/30/2025 5:47 PM EDT [facility] Platelets 206 130 - 400 K/mcL LAB HEMETOLOGY [facility] MPV 9.7 7.0 - 11.0 FL LAB HEMETOLOGY METHOD 05/30[facility]2025 [facility] NRBC 0.0 <1.0 % LAB HEMETOLOGY METHOD 05/30/2025 5[facility] NRBC Absolute 0.00 <0.10 K/mcL LAB HEMETOLOGY METHOD 05/30[facility]2025 5[facility] Neutrophils Relative 78.6 % LAB HEMETOLOGY METHOD 05/30/2025 5:[address] [facility] Lymphocytes Relative 11.6 % LAB HEMETOLOGY METHOD 05/30/2025 5:47 PM EDT [facility] Monocytes Relative 7.2 % LAB HEMETOLOGY METHOD 05/30/2025 5[facility] Eosinophils Relative 1.6 % LAB HEMETOLOGY METHOD 05/30/2025 5[facility] Basophils Relative 0.6 % LAB HEMETOLOGY METHOD 05/30/2025 5[facility] Immature Granulocytes Relative 0.4 % LAB HEMETOLOGY METHOD 05/30/2025 5:47 PM EDT [facility] Neutrophils Absolute 7.73(H) 1.50 - 7.00 K/mcL LAB HEMETOLOGY METHOD 05/30/2025 5:47 PM EDT [facility] Lymphocytes Absolute 1.14 1.00 - 5.00 K/mcL LAB HEMETOLOGY METHOD 05/30/2025 5:47 PM EDT [facility] Monocytes Absolute 0.71 0.20 - 1.00 K/mcL LAB HEMETOLOGY METHOD 05/30/2025 5:47 PM EDT [facility] Eosinophils Absolute 0.16 0.00 - 0.50 K/[facility] LAB HEMETOLOGY METHOD 05/30/2025 5:47 PM EDT [facility] Basophils Absolute 0.06 0.00 - 0.20 K/mcL LAB HEMETOLOGY METHOD 05/30/2025 5:47 PM EDT [facility] Immature Granulocytes Absolute 0.04(H) 0.00 - 0.03 K/[facility] LAB HEMETOLOGY METHOD 05/30/2025 5:47 PM EDT [facility] Blood Venous blood specimen / Unknown Venipuncture / Unknown 05/30/2025 5:24 PM EDT 05/30/2025 5:36 PM EDT us Dain Das MD LAB BLOOD ORDERABLES Final Resu lt [facility] [address] [place] [address], * (ABNORMAL) Basic Metabolic Panel (BMP) (05/30/2025 5:24 PM EDT) Sodium 136 133 - 145 mmol/L LAB CHEMISTRY METHOD 05/30/2025 6:05 PM EDT [facility] Potassium 3.8 3.5 - 5.5 mmol/L LAB CHEMISTRY METHOD 05/30/2025 6:[address] [facility] Chloride 99 96 - 110 mmol/L LAB CHEMISTRY METHOD 05/30/2025 6:[address] [facility] CO2 27 21 - 32 mmol/L LAB CHEMISTRY METHOD 05/30/2025 6:[address] [facility] Anion Gap 10 3 - 11 LAB CHEMISTRY METHOD 05/30/2025 6:[address] [facility] Glucose 200(H) 70 - 100 mg/dL LAB CHEMISTRY METHOD 05/30/2025 6:[address] [facility] BUN 29(H) 5 - 25 mg/dL LAB CHEMISTRY METHOD 05/30/2025 6:[address] [facility] Creatinine 2.85(H) 0.50 - 1.10 mg/dL LAB CHEMISTRY METHOD 05/30/2025 6:[address] [facility] eGFR 18(L) >=60 mL/min/1. 73m2 LAB CHEMISTRY METHOD 05/30/2025 6:[address] [facility] Comment:Calculation based on the Chronic Kidney Disease Epidemiology Collaboration (CKD-EPI) equation refit without adjustment for race. BUN/Creatinine Ratio 10.2 LAB CHEMISTRY METHOD 05/30/2025 6:[address] [facility] Calcium 8.5 8.5 - 10.5 mg/dL LAB CHEMISTRY METHOD 05/30/2025 6:[address] [facility] Blood Venous blood specimen / Unknown Venipuncture / Unknown 05/30/2025 5:24 PM EDT 05/30/2025 5:36 PM EDT us Dain Das MD LAB BLOOD ORDERABLES Final Resu lt [facility] [address] [place] [address], * 12-Lead ECG (05/30/2025 4:11 PM EDT) Ventricular Rate ECG 63 BPM GEMUSE Atrial Rate 63 BPM GEMUSE P-R Interval 144 ms GEMUSE QRS Duration 96 ms GEMUSE Q-T Interval 484 ms GEMUSE QTc 495 ms GEMUSE P Wave [place] 18 degrees GEMUSE R [place] -40 degrees GEMUSE T [place] 18 degrees GEMUSE ECG Interpretation Normal sinus rhythm Left axis deviation Abnormal ECG No previous ECGs available Confirmed by ZEUS WELLS ([id number]) on 05/31/2025 5:46:40 PM GEMUSE 05/30/2025 4:11 PM EDT 05/31/2025 5:46 PM EDT us Dain Das MD ECG ORDERABLES Final Result GEMUSE from Last 3 Months Insurance [facility] MEDICARE MEDICAID - [place] Care Teams Data Typist Relationship Specialty Start Date End Date Alexi Lynne MD [address] [place] [address] [address] LUI Solis PCP - General Internal Medicine 05/30/25
--- OUTSIDE RECORDS SUMMARY | 2025-07-09 15:27 | XMS_ITS ---
Author Organization [facility] at [facility] Care Team Providers Care Engineering Director Name Role Phone Karel, Compa Unavailable Unavailable Planeta, Candy Unavailable Unavailable Allergies and adverse reactions Code CodeSystem Substance Reaction Severity StartDate Concern Status Invokana Unknown 02/13/2022 active 6809 RXNORM metFORMIN Unknown 02/13/2022 active Care Team Name Role Address Phone Organization Dates Compa Vinson PCP [address] [place] [address], [facility] (Office): [phone] (Fax): [phone] [facility] [place] 02/13/2022 - 06/09/2022 C[facility] Bear Chloe milan at [place] 02/13/2022 - 06/09/2022 Immunizations Immunization Status Vaccine Details Vaccine Code CodeSystem Date Notes SARS-COV-2 (COVID-19) completed SARS-COV-2 (COVID-19) vaccine, mRNA, spike protein, LNP, bivalent, preservative free, 30 mcg/0.3 mL dose, rachel-sucrose formulation lotNumber: [id number] expiry: 02/26/2023 Mfg: pfizer Given 0.3 ml [...] Code CodeSystem Concern Status 1 HYPERKALEMIA 05/22/[address] activ e 2 URINARY TRACT INFECTION, SITE NOT SPECIFIED 02/27/[address] active 3 CHRONIC KIDNEY DISEASE, STAGE 3 UNSPECIFIED 02/20/[address] active 4 DYSPNEA, UNSPECIFIED 02/20/[address] active 5 EDEMA, UNSPECIFIED 02/20/2022 166168660 SNOMED C T active 6 HYPOTHYROIDISM, UNSPECIFIED 02/20/[address] active 7 LYMPHEDEMA, NOT ELSEWHERE CLASSIFIED 02/20/[address] active 8 OBSTRUCTIVE SLEEP APNEA (ADULT) (PEDIATRIC) 02/20/[address] active 9 OTHER CHRONIC PAIN 02/20/[address] active 10 TYPE 2 DIABETES MELLITUS WITH HYPERGLYCEMIA 02/20/[address] active 11 UNSPECIFIED DIASTOLIC (CONGESTIVE) HEART FAILURE 02/20/[address] active 12 UNSPECIFIED RENAL COLIC 02/20/[address] active 13 ABNORMAL LEVELS OF OTHER SERUM ENZYMES 02/13/[address] active 14 ANEMIA, UNSPECIFIED 02/13/[address] active 15 ANXIETY DISORDER, UNSPECIFIED 02/13/[address] active 16 CHRONIC KIDNEY DISEASE, UNSPECIFIED 02/13/[address] active 17 ESSENTIAL (PRIMARY) HYPERTENSION 02/13/[address] active 18 GASTRO-ESOPHAGEAL REFLUX DISEASE WITHOUT ESOPHAGITIS 02/13/[address] active 19 KLEBSIELLA PNEUMONIAE [K. PNEUMONIAE] THE CAUSE OF DISEASES CLASSIFIED ELSEWHERE 02/13/[address] active 20 LOW BACK PAIN, UNSPECIFIED 02/13/[address] active 21 MORBID (SEVERE) OBESITY DUE TO EXCESS CALORIES 02/13/[address] active 22 OTHER SPECIFIED DIABETES MELLITUS WITH DIABETIC NEUROPATHY, UNSPECIFIED 02/13/[address] active 23 OVERACTIVE BLADDER 02/13/2022 963653687 SNOMED C T active 24 RESTLESS LEGS SYNDROME 02/13/[address] active 25 SPINAL STENOSIS, LUMBAR REGION WITHOUT NEUROGENIC CLAUDICATION 02/13/[address] active 26 TYPE 2 DIABETES MELLITUS WITH DIABETIC CHRONIC KIDNEY DISEASE 02/13/[address] active 27 TYPE 2 DIABETES MELLITUS WITHOUT COMPLICATIONS 02/13/[address] active 28 UNSPECIFIED ABDOMINAL PAIN 02/13/[address] active 29 UNSPECIFIED ASTHMA, UNCOMPLICATED 02/13/[address] active 30 VOMITING, UNSPECIFIED 02/13/[address] active 31 WEAKNESS 02/13/[address] active Reason for Referral No Reasons for Referral Entered Social History Social History Observation Description Start Date End Date Code Code System Current Smoking Status Tobacco smoking consumption unknown 581044101 SNOMED CT Sex Assigned At Female 1960 16861-3 LOINC Gender Identity Sexual Orientation Vital Signs Code Code System Vitals Name Values and Units Timing Information 2339-0 LOINC Blood Sugar Ndurb=094.0 Units=mg/dL 06/09/2022 9279-1 LOINC Respiratory Rate Value=16.0 Units=/m in 06/09/2022 8462-4 [facility] Blood Pressure-Diastolic Value=77 Un its=mmHg 06/09/2022 8480-6 [facility] Blood Pressure-Systolic Lvytl=929 Un its=mmHg 06/09/2022 8310-5 [facility] Body Temperature Value=97.7 Units= F 06/09/2022 8867-4 [facility] Heart rate Value=76.0 Units=/min 06/2022 36192-0 [facility] O2 % BldC Oximetry Value=94.0 Units= % 06/09/2022 76217-3 [facility] Pain Level Value=0.0 06/07/2022 05629-3 INC Weight Shavg=551.1 Units=Lbs 09/2021 8302-2 [facility] Height Value=66.0 Units=Inches 05/06/2022
--- OUTSIDE RECORDS SUMMARY | 2025-07-09 15:27 | XMS_ITS | Clinical Summary ---
Author Organization [facility] Address [address] [facility] [address] [place] [address] Phone Care Team Providers Care Head Inspector And Center Marker Name Role Phone Terry Ochoa MD Primary Care Provider [phone] Allergies Active Allergy Reactions Criticality Noted Date [...] Encounters Date Type Department Care Team Description 07/04/2025 Orders Only [facility] [address] [place] [address] Alan Mccarthy MD 07/04/2025 Treatment [facility] [address] [place] [address] Benita Garrison FNP-C End stage renal disease; Dependence on renal dialysis 07/02/2025 Orders Only [facility] [address] [address] Alan Mccarthy MD 06/20/2025 Orders Only [facility] [address] [address] Alan Mccarthy MD 06/20/2025 Treatment [facility] [address] [place] [address] Benita Garrison FNP-C End stage renal disease; Dependence on renal dialysis 06/08/2025 Orders Only [facility] [address] [address] Alan Mccarthy MD 06/04/2025 Orders Only [facility] [address] [place] [address] Provider, Albert Ordering 05/11/2025 Orders Only [facility] [address] [address] Alan Mccarthy MD 05/11/2025 Treatment [facility] [address] [place] [address] Benita Garrison FNP-Jagdeep End stage renal disease; Dependence on renal [...] Procedure Name Priority Date/Time Associated Diagnosis Comments [facility] RESULTS Routine 07/04/2025 HD KINETICS Routine 07/04/2025 POST CHEMISTRY Routine 07/04/2025 HEMATOLOGY Routine 07/04/2025 IMMUNO CHEMISTRY Routine 07/04/2025 CHEMISTRY Routine 07/04/2025 CHEMISTRY Routine 07/04/2025 HEMATOLOGY Routine 07/02/2025 HEMATOLOGY Routine 06/20/2025 IMMUNO CHEMISTRY Routine 06/08/2025 [...] Recently Relevant to Health Maintenance Results * HD KINETICS (07/04/2025) Only the most recent of3 resultswithin the time period is included. % Urea Reduction 71 65 - 80 % [facility] 07/04/2025 07/05/2025 3:1 1 PM EST Narrative Resulting Agency Comment Specimen source: Plasma Alan Mccarthy MD LAB BLOOD ORDERABLES Final Re sult Performing Organization Address [facility]/ZIP Co de Phone Number [facility] See order comments or contact performing lab Unknown, [place] * POST CHEMISTRY (07/04/2025) Only the most recent of3 resultswithin the time period is included. BUN Post Dialysis 17 6 - 19 mg/dL [facility] 07/04/2025 07/05/2025 3:1 1 PM EST Narrative [facility] - 07/05/2025 Unless otherwise specified, test(s) performed at: [facility], [address] [place] [address] CORPORATE STAFF ACCOUNTANT: Michael Fields M.D. For any questions, please call customer service at FREQUENCY:MONTHLY Resulting Agency Comment Specimen source: Plasma Alan Mccarthy MD LAB BLOOD ORDERABLES Final Re sult [facility] See order comments or contact performing lab Unknown, [place] * IMMUNO CHEMISTRY (07/04/2025) Only the most recent of4 resultswithin the time period is included. Hep B Surface Ag Negative Negative [facility] 07/04/2025 07/05/2025 9:4 4 AM EST Narrative Resulting Agency Comment Specimen source: Serum Alan Mccarthy MD LAB BLOOD ORDERABLES Final Re sult Performing Organization Address City/[facility]/ZIP Co de Phone Number [facility] See order comments or contact performing lab Unknown, [place] * (ABNORMAL) HEMATOLOGY (07/04/2025) Only the most recent of5 resultswithin the time period is included. Pathologist [facility] Hemoglobin 8.6(L) 12.0 - 16.0 g/dL [facility] Hemoglobin x 3 25.8(L) 36.0 - 48.0 % [facility] 07/04/2025 07/05/2025 9:5 2 AM EST Narrative [facility] - 07/05/2025 Unless otherwise specified, test(s) performed at: [facility], [address] [place] [address] CORPORATE STAFF ACCOUNTANT: Michael Fields M.D. For any questions, please call customer service at FREQUENCY:MONTHLY Resulting Agency Comment Specimen source: Blood Alan Mccarthy MD LAB BLOOD ORDERABLES Final Re sult Performing Organization Address [facility] de Phone Number [facility] See order comments or contact performing lab Unknown, [place] * (ABNORMAL) [facility] (07/04/2025) Only the most recent of7 resultswithin the time period is included. BUN 58(H) 6 - 19 mg/dL [facility] Creatinine 3.32(H) 0.60 - 1.30 mg/dL [facility] BUN/Creatinine Ratio 17.5 10.0 - 20.0 [facility] Sodium 134(L) 136 - 145 mEq/L [facility] Potassium 4.6 3.5 - 5.1 mEq/L [facility] Chloride 99 96 - 108 mEq/L [facility] Bicarbonate (CO2) 26 22 - 29 mEq/L [facility] Calcium 7.9(L) 8.4 - 10.2 mg/dL [facility] Corrected Calcium 8.5 8.4 - 10.2 mg/dL [facility] Comment: Corrected Calcium is not equivalent to measured Ionized Calcium. Phosphorus 4.8(H) 2.6 - 4.5 mg/dL [facility] Calcium Phosphorus Product 38 0 - 54 [facility] Calcium Phosporus Product, Cor 41 0 - 54 [facility] Alkaline Phosphatase 97 35 - 104 U/L [facility] ALT (SGPT) 13 7 - 52 U/L [facility] Albumin 3.2(L) 3.5 - 5.2 g/dL [facility] Magnesium 1.7 1.6 - 2.6 mg/dL [facility] Comment: Custom Exception Ferritin 288 10 - 291 ng/mL [facility] Iron 61 30 - 160 mcg/dL [facility] UIBC 130(L) 155 - 355 mcg/dL [facility] TIBC 191 185 - 515 mcg/dL [facility] Iron Saturation (TSat) 32 20 - 55 % [facility] 07/04/2025 07/05/2025 9:4 4 AM EST Narrative [facility] - 07/05/2025 Unless otherwise specified, test(s) performed at: [facility], [address] [place] [address] CORPORATE STAFF ACCOUNTANT: Michael Fields M.D. For any questions, please call customer service at FREQUENCY:MONTHLY Resulting Agency Comment Specimen source: Serum Alan Mccarthy MD LAB BLOOD ORDERABLES Final Re sult [facility] See order comments or contact performing lab Unknown, [place] * [facility] Results (07/04/2025) Only the most recent of3 resultswithin the time period is included. WSTDKT/V 1.6 [facility] PCR 81.90 [facility] nPCR_HD 1.11 [facility] eKt/V ([place]) 1.29 [facility] eNPCR 1.01 [facility] eKdrt/V 1.39 [facility] spKt/V (Daugirdas II) 1.47 [facility] eKt/V Gotch 1.39 [facility] spKt/V Gotch 1.58 [facility] 07/04/2025 07/04/2025 [facility] Ordering Provider LAB BLOOD ORDERABLES Final Result Performing Organization Address City/[facility]/ZIP Co de Phone Number [facility] Contact Performing lab Unknown, [place] * (ABNORMAL) SPECIAL CHEMISTRY (05/30/2025) Only the most recent of2 resultswithin the time period is included. Pathologist [facility] Vitamin D, 25-OH, Total 10.2(L) 30.0 - 100.0 ng/mL [facility] Comment: Please Note: Effective June 28, 2023, the methodology for this test has changed to the [facility]. 05/30/2025 05/31/2025 10: 28 AM EDT Narrative [facility] - 06/01/2025 Unless otherwise specified, test(s) performed at: [facility], [address] [place] [address] CORPORATE STAFF ACCOUNTANT: Michael Fields M.D. For any questions, please call customer service at FREQUENCY:MONTHLY Resulting Agency Comment Specimen source: Serum Alan Mccarthy MD LAB BLOOD BANK TEST ORDERABLE S Final Result Performing Organization Address [facility] de Phone Number [facility] [employer] [facility] See order comments or contact performing lab Unknown, [place] * [facility] [employer] (05/30/2025) Only the most recent of2 resultswithin the time period is included. [facility] [address] Aluminum <5 0 - 10 mcg/L [facility] Comment: This test was developed and its performance characteristics determined by [facility]. It has not been cleared or approved by the FDA. The laboratory is regulated under CLIA as qualified to perform high complexity testing. This test is used for clinical purposes. It should not be regarded as investigational or for research. 05/30/2025 05/31/2025 9:1 1 AM EDT Narrative [facility] - 05/31/2025 Unless otherwise specified, test(s) performed at: [facility], [address] [place] [address] CORPORATE STAFF ACCOUNTANT: Michael Fields M.D. For any questions, please call customer service at FREQUENCY:MONTHLY Resulting Agency Comment Specimen source: Serum Alan Mccarthy MD LAB BLOOD ORDERABLES Final Re sult [facility] See order comments or contact performing lab Unknown, [place] * (ABNORMAL) Hemoglobin A1c (02/04/2022 11:45 AM EDT) Hemoglobin A1C 10.2(H) (4.0-5.6) % [facility] Comment: MONITORING: In known diabetic patients, hemoglobin A1c targets should be discussed with health care provider. DIAGNOSTIC USE: The [place] Diabetes [employer] (ADA) and the World Health [...] Supplement 1 Testing performed or reported by [facility], a Service of [facility], [address] [place] [address] Jaquelin Grayson MD, Business Applications Developer [facility]# [id number] 02/04/2022 11:4 5 AM EDT 02/04/2022 6:50 PM EDT Tony Dejesus MD LAB BLOOD ORDERABLES Final Re sult [facility] from Last 3 Months or Most Recently Relevant to Health Maintenance Insurance Medicaid [place] Medicare Medicaid [place] Care Teams Head Inspector And Center Marker Relationship Specialty Start Date End Date Terry Ochoa MD [address] [place], [place] PCP - General Internal Medicine 07/21/23
--- OUTSIDE RECORDS SUMMARY | 2025-07-09 15:27 | XMS_ITS | Clinical Summary ---
Author Organization [facility] Address [address] [place] [address] Care Team Providers Care Audit Senior Associate Name Role Phone Terry Ochoa MD Primary Care Provider [phone] Allergies No known active allergies Medications amLODIPine [...] 1 (one) time each day Active epoetin islverio (PROCRIT/EPOGEN) 51218 UNIT/ML injection Inject 20,000 Units under the [...] Monovalent, 30 mcg/0.3 ml 08/13/2021 Covid-19, Vector-nr (Kihon), 0.5 Ml 01/29/2021 Covid-19, mRNA (Pfizer Pre [...] years (1 of 1 - PCV) 2008 RSV (1 - Risk 50-74 years 1-dose series) 2008 Zoster (Shingrix) (1 of 2) 2008 [facility] 2023 COVID-19 Vaccine (4 - [...] Zoster (Zostavax) Discontinued Procedures * Due to Company Cubed law, this organization might not be sharing [...] for evaluation. Endocervical/correia sformation zone component present. [facility] Cytology, Pap Smear Negative for intraepithelial lesion or malignancy. [employer] Cytology study comment (Cvx/Vag) This Pap test has been evaluated with computer assisted technology. [employer] Well Driller (Cvx/Vag) [address](ASCP) CT screening location: [place] [address] [employer] COMMENT SEE NOTE [employer] Comment: EXPLANATORY NOTE: The Pap is a [...] HPV MRNA E6/E7 Not Detected Not Detected [employer] Comment: Methodology: Overhead Door Technician-Mediated Amplification This assay detects E6/E7 viral messenger RNA (mRNA) from 14 high-risk HPV types (16,18,31,33,35,39,45,51,52,56,58,59,66,68). The analytical performance characteristics of this assay have been determined by [employer]. The modifications have not been cleared or approved by the FDA. This assay has been validated pursuant to the CLIA regulations and is used for clinical purposes. For additional information, please refer to http://education.My[employer]fold.[employer]/faq/TLX811b1 (This link if provided for information/ educational purposes only.) 11/17/2021 4:35 PM EDT 11/17/2021 9:57 PM EDT Narrative Resulting Agency Comment [id number] us Lois Carreno MD PATHOLOGY-INTERFACED Final Resul t [employer] [address] [place] [address] from Last 3 Months or Most Recently Relevant to Health Maintenance Insurance MEDICAID [employer] MEDICARE Care Teams Audit Senior Associate Relationship Specialty Start Date End Date Terry Ochoa MD [facility] [place] [address] [place] [address] PCP - General Internal Medicine 09/30/21
--- OUTSIDE RECORDS SUMMARY | 2025-07-09 15:27 | XMS_ITS ---
Author Organization [facility] Care Team Providers Care Press Breaker Name Role Phone Bhargavi Xavier Unavailable Unavailable Marquez Farrar MD Unavailable Unavailable Allergies and adverse reactions Code CodeSystem Substance Reaction Severity StartDate Concern Status 6809 RXNORM Metformin Moderate 07/15/2021 active Care Team Name Role Address Phone Organization Dates Marquez Farrar MD PCP [address] [place] [address], [address], [place] (Office): [facility] 07/15/2021 - 11/26/2021 Bhargavi Xavier [facility] [address] [place] [address], [address], [place] (Office): [facility] 07/15/2021 - 11/26/2021 Immunizations Immunization Status Vaccine Details Vaccine Code CodeSystem Date Notes Influenza normal Influenza, high-dose, split virus, quadrivalent, injectable, preservative free 197 CVX created date: 1 consent date: 1 had in May 2021 TB 2 Step Mantoux Skin Test completed tuberculin skin test; unspecified formulation lotNumber: [id number] expiry: 01/29/2023 Mfg: Sanofi paseur Given 0.1 ml Left Forearm intradermally Step 2 of Multi-step with next step required 98 CVX created date: 2 consent date: 2 administe red date: 2 TB 2 Step Mantoux Skin Test completed tuberculin skin test; unspecified formulation lotNumber: [id number] expiry: 12/19/2022 [facility] Apozy Given 0.1 ml Right Forearm subcutaneously Step [...] LNP, preservative free, 30 mcg/0.3mL dose lotNumber: [id number] Given Right Deltoid intramuscularly 208 CVX created [...] WITH MIXED ANXIETY AND DEPRESSED MOOD 10/17/[address] active 2 LYMPHEDEMA, NOT ELSEWHERE CLASSIFIED 07/16/[address] active 3 DYSPHAGIA, UNSPECIFIED 07/15/[address] active 4 ESSENTIAL (PRIMARY) HYPERTENSION 07/15/[address] active 5 HYPERLIPIDEMIA, UNSPECIFIED 07/15/[address] active 6 MORBID (SEVERE) OBESITY DUE TO EXCESS CALORIES 07/15/[address] active 7 MUSCLE WEAKNESS (GENERALIZED) 07/15/[address] active 8 NAUSEA 07/15/[address] active 9 OTHER SPECIFIED ABNORMAL FINDINGS OF BLOOD CHEMISTRY 07/15/[address] active 10 OTHER SPECIFIED ABNORMALITIES OF PLASMA PROTEINS 07/15/[address] active 11 TYPE 2 DIABETES MELLITUS WITH DIABETIC CHRONIC KIDNEY DISEASE 07/15/[address] active 12 TYPE 2 DIABETES MELLITUS WITH DIABETIC NEUROPATHY, UNSPECIFIED 07/15/[address] active 13 TYPE 2 DIABETES MELLITUS WITHOUT COMPLICATIONS 07/15/[address] active 14 UNSPECIFIED ABDOMINAL PAIN 07/15/[address] active 15 UNSPECIFIED ASTHMA, UNCOMPLICATED 07/15/[address] active 16 URINARY TRACT INFECTION, SITE NOT SPECIFIED 07/15/[address] active 17 WEAKNESS 07/15/[address] active Reason for Referral No Reasons for Referral Entered Social History Social History Observation Description Start Date End Date Code Code System Current Smoking Status Tobacco smoking consumption unknown 655817690 SNOMED CT Sex Assigned At Female 1960 [address]-8 [facility] Gender Identity Sexual Orientation Vital Signs Code Code System Vitals Name Values and Units Timing Information 8462-4 [facility] Blood Pressure-Diastolic Value=78 Un its=mmHg 11/26/2021 8480-6 [facility] Blood Pressure-Systolic Lryhd=754 Un its=mmHg 11/26/2021 8867-4 [facility] Heart rate Value=80.0 Units=/min 2339-0 [facility] Blood Sugar Vmzuc=871.0 Units=mg/dL 11/26/2021 24683-4 [facility] Pain Level Value=0.0 11/25/2021 69418-2 [facility] Weight Woqms=660.8 Units=Lbs 9279-1 [facility] Respiratory Rate Value=16.0 Units=/m in 11/25/2021 8310-5 [facility] Body Temperature Value=97.7 Units= F 11/25/2021 49277-5 [facility] O2 % BldC Oximetry Value=98.0 Units= % 11/25/2021 8302-2 [facility] Height Value=66.0 Units=Inches 07/17/2021
--- OUTSIDE RECORDS SUMMARY | 2025-07-09 15:27 | XMS_ITS | Encounter Summary ---
Author Organization [facility] Address [address] [place] [address] Care Team Providers Care Pilot Plant Technician Name Role Phone Terry Ochoa MD Primary Care Provider [phone] Encounter Details Date Type Department Care Team ([facility] st Contact Info) Description 11/17/2021 Orders Only [facility] SALES REPRESENTATIVE [address] [facility] [address] [place] [address] Losi Carreno MD [address] [place] [address] Social History Tobacco Use Types Packs/Day Years [...] of this encounter Procedures * Due to [facility] law, this organization might not be sharing negative HIV tests. Procedure Name Priority Date/Time Associated Diagnosis Comments THINPREP TIS PAP AND HPV RNA, HR E6/E7, TMA Routine 11/17/2021 4:35 PM EDT Screening for malignant neoplasm of cervix documented in this encounter Results * Due to [facility] law, this organization might not be sharing negative HIV tests. * THINPREP TIS PAP AND HPV RNA, HR E6/E7, TMA (11/17/2021 4:35 PM EDT) Clinical information Postmenopausal [facility] Date last menstrual period POSTMENOPAUSAL [facility] Date of previous PAP smear NONE GIVEN [facility] Date of previous biopsy NONE GIVEN [facility] Specimen source (Cvx/Vag) None given [facility] Statement of Adequacy (Cvx/Vag) Satisfactory for evaluation. Endocervical/correia sformation zone component present. [facility] Cytology, Pap Smear Negative for intraepithelial lesion or malignancy. [employer] Cytology study comment (Cvx/Vag) This Pap test has been evaluated with computer assisted technology. [employer] Tangible Personal Property Appraiser (Cvx/Vag) [address](ASCP) CT screening location: [place] [address] [facility] COMMENT SEE NOTE [facility] Comment: EXPLANATORY NOTE: The Pap is a [...] HPV MRNA E6/E7 Not Detected Not Detected [employer] [facility] Comment: Methodology: Head Mechanic-Mediated Amplification This assay detects E6/E7 viral messenger RNA (mRNA) from 14 high-risk HPV types (16,18,31,33,35,39,45,51,52,56,58,59,66,68). The analytical performance characteristics of this assay have been determined by [employer]. The modifications have not been cleared or approved by the FDA. This assay has been validated pursuant to the CLIA regulations and is used for clinical purposes. For additional information, please refer to http://education.[employer]faq/GKK055d5 (This link if provided for information/ educational purposes only.) 11/17/2021 4:35 PM EDT 11/17/2021 9:57 PM EDT Narrative Resulting Agency Comment [id number] us Lois Carreno MD PATHOLOGY-INTERFACED Final Resul t Performing Organization Address City/State/[facility] Co de Phone Number [facility] [address] [place] [address] documented in this encounter Visit Diagnoses Diagnosis Screening for malignant neoplasm of cervix Screening for malignant neoplasm of the cervix documented in this encounter Care Teams Pilot Plant Technician Relationship Specialty Start Date End Date Terry Ochoa MD [facility] [address] [place] [address] PCP - General Internal Medicine 09/30/21 documented as of this encounter
--- OUTSIDE RECORDS SUMMARY | 2025-07-09 15:27 | XMS_ITS ---
Author Organization [facility] [place] - Care Team Providers Care Site Leader Name Role Phone Edil Mansfield Unavailable Unavailable Care Team Name Role Address Phone Organization Dates Edil Mansfield PCP [address], [place], [address] (Office): : [facility] - 04/04/2025 Insurance Providers Reason for Referral No Reasons for Referral Entered Social History Social History Observation Description Start Date End Date Code Code System Current Smoking Status Tobacco smoking consumption unknown 042235541 SNOMED CT Sex Assigned At Female 1960 [address]-4 [facility] Gender Identity Sexual Orientation
--- OUTSIDE RECORDS SUMMARY | 2025-07-09 15:27 | XMS_ITS | Encounter Summary ---
Author Organization [facility], Address [address] [place] [address] Phone Care Team Providers Care Clinical Assistant Name Role Phone Terry Ochoa MD Primary Care Provider [phone] Encounter Details Date Type Department Care Team (Late st Contact Info) Description 07/04/2025 Orders Only [facility] [address] [place] [address] Alan Mccarthy MD [address] [place] [address] [address] [place] [address] Social History Tobacco Use Types Packs/Day Years [...] Procedure Name Priority Date/Time Associated Diagnosis Comments HD KINETICS Routine 07/04/2025 POST CHEMISTRY Routine 07/04/2025 IMMUNO CHEMISTRY Routine 07/04/2025 HEMATOLOGY Routine 07/04/2025 CHEMISTRY Routine 07/04/2025 CHEMISTRY Routine 07/04/2025 [facility] RESULTS Routine 07/04/2025 documented in this encounter Results * [facility] Lab Results (07/04/2025) Pathologist [facility] WSTDKT/V 1.6 [facility] PCR 81.90 [facility] nPCR_HD 1.11 [facility] eKt/V ([place]) 1.29 [facility] eNPCR 1.01 [facility] eKdrt/V 1.39 [facility] spKt/V (Daugirdas II) 1.47 [facility] eKt/V [facility] 1.39 [facility] spKt/V [facility] 07/04/2025 07/04/2025 [facility] [place]ing Provider LAB BLOOD ORDERABLES Final Result [facility] Contact Performing lab Unknown, [place] * HD KINETICS (07/04/2025) Pathologist [facility] % Urea Reduction 71 65 - 80 % [facility] 07/04/2025 07/05/2025 3:1 1 PM EST Narrative Resulting Agency Comment Specimen source: Plasma Alan Mccarthy MD LAB BLOOD ORDERABLES Final Re sult [id number] See order comments or contact performing lab Unknown, [place] * POST CHEMISTRY (07/04/2025) Pathologist [facility] BUN Post Dialysis 17 6 - 19 mg/dL [id number] 07/04/2025 07/05/2025 3:1 1 PM EST Narrative [facility] - 07/05/2025 Unless otherwise specified, test(s) performed at: [facility], [address] [place] [address] SERVICES ENGINEER: Michael Fields M.D. For any questions, please call customer service at FREQUENCY:MONTHLY Resulting Agency Comment Specimen source: Plasma Alan Mccarthy MD LAB BLOOD ORDERABLES Final Re sult Performing Organization Address [facility] de Phone Number [id number] See order comments or contact performing lab Unknown, [place] * (ABNORMAL) HEMATOLOGY (07/04/2025) Hemoglobin 8.6(L) 12.0 - 16.0 g/dL [facility] Hemoglobin x 3 25.8(L) 36.0 - 48.0 % [facility] 07/04/2025 07/05/2025 9:5 2 AM EST Narrative [facility] - 07/05/2025 Unless otherwise specified, test(s) performed at: [facility], [address] [place] [address] SERVICES ENGINEER: Michael Fields M.D. For any questions, please call customer service at FREQUENCY:MONTHLY Resulting Agency Comment Specimen source: Blood Alan Mccarthy MD LAB BLOOD ORDERABLES Final Re sult Performing Organization Address [facility] de Phone Number [id number] See order comments or contact performing lab Unknown, [place] * IMMUNO CHEMISTRY (07/04/2025) Pathologist [facility] Hep B Surface Ag Negative Negative [facility] 07/04/2025 07/05/2025 9:4 4 AM EST Narrative Resulting Agency Comment Specimen source: Serum Alan Mccarthy MD LAB BLOOD ORDERABLES Final Re sult Performing Organization Address [facility] de Phone Number [id number] See order comments or contact performing lab Unknown, [place] * (ABNORMAL) [facility] (07/04/2025) BUN 58(H) 6 - 19 mg/dL [facility] [...] 07/05/2025 Unless otherwise specified, test(s) performed at: [facility], [address] [place], [place] [id number] SERVICES ENGINEER: Michael Fields M.D. For any questions, please call customer service at FREQUENCY:MONTHLY Resulting Agency Comment Specimen source: Serum Alan Mccarthy MD LAB BLOOD ORDERABLES Final Re sult [facility] See order comments or contact performing lab Unknown, [place] * (ABNORMAL) [facility] (07/04/2025) PTH 1,025(H) 16 - 80 pg/mL [id number] 07/04/2025 07/05/2025 8:5 3 AM EST Narrative [facility] - 07/05/2025 Unless otherwise specified, test(s) performed at: [facility], [address] [place] [address] SERVICES ENGINEER: Michael Fields M.D. For any questions, please call customer service at FREQUENCY:MONTHLY Resulting Agency Comment Specimen source: Plasma us Alan Mccarthy MD LAB BLOOD ORDERABLES Final Re sult [facility] See order comments or contact performing lab Unknown, [place] documented in this encounter Visit Diagnoses Not on filedocumented in this encounter Care Teams Clinical Assistant Relationship Specialty Start Date End Date Terry Ochoa MD [address] [place], [place] PCP - General Internal Medicine 07/21/23 documented as of this encounter
--- OUTSIDE RECORDS SUMMARY | 2025-07-09 15:27 | XMS_ITS ---
Author Organization [facility] Care Team Providers Care Customer Agent Name Role Phone Raji Samano Unavailable Unavailable Jazmyne, Raji Unavailable Unavailable Candy Sanchez Unavailable Unavailable Allergies and adverse reactions Code CodeSystem Substance Reaction Severity StartDate Concern Status 6720028 RXNORM Canagliflozin Unknown 10/09/2020 active 6809 RXNORM Metformin Unknown 10/09/2020 active Care Team Name Role Address Phone Organization Dates Raji Samano PCP [address], [place], [address], [place] (Office): : [facility] 10/09/2020 - 10/30/2020 Raji Samano [address], [place], [address], [place] (Office): : [facility] 10/09/2020 - 10/30/2020 Candy Sanchez [address], [place], [address], [place] (Office): [facility] 10/09/2020 - 10/30/2020 Immunizations Immunization Status Vaccine Details Vaccine Code CodeSystem Date Notes Influenza cancelled Influenza, split virus, trivalent, injectable, contains preservative 141 CVX created date: 10/09/2020 consent date: 10/18/2020 had this season TB 1 Step Mantoux (PPD) completed tuberculin skin test; unspecified formulation lotNumber: [id number] expiry: 06/30/2018 Mfg: [employer] Given 0.1 ml Right Forearm intradermally 98 CVX created date: 03/13/2017 consent date: 03/13/2017 administer ed date: 03/13/2017 Educated by annette on 03/13/2017 Administered by: elizabeth TB 2 Step Mantoux Skin Test completed tuberculin skin test; unspecified formulation lotNumber: [id number] expiry: 09/30/2021 Mfg: PAR pharmaceical Given Left [...] Status 1 CHRONIC KIDNEY DISEASE, UNSPECIFIED 10/09/[address] active 2 DIARRHEA, UNSPECIFIED 10/09/[address] active 3 DIFFICULTY IN WALKING, NOT ELSEWHERE CLASSIFIED 10/09/[address] active 4 DUODENITIS WITHOUT BLEEDING 10/09/[address] active 5 DYSPHAGIA, OROPHARYNGEAL PHASE 10/09/[address] active 6 GASTRITIS, UNSPECIFIED, WITHOUT BLEEDING 10/09/[address] active 7 IRRITABLE BOWEL SYNDROME, UNSPECIFIED 10/09/[address] active 8 MUSCLE WASTING AND ATROPHY, NOT ELSEWHERE CLASSIFIED, LEFT LOWER LEG 10/09/[address] active 9 MUSCLE WASTING AND ATROPHY, NOT ELSEWHERE CLASSIFIED, RIGHT LOWER LEG 10/09/[address] active 10 MUSCLE WASTING AND ATROPHY, NOT ELSEWHERE CLASSIFIED, UNSPECIFIED THIGH 10/09/[address] active 11 NAUSEA WITH VOMITING, UNSPECIFIED 10/09/[address] active 12 OTHER REDUCED MOBILITY 10/09/[address] active 13 UNSPECIFIED URINARY INCONTINENCE 10/09/[address] active 14 ESSENTIAL (PRIMARY) HYPERTENSION 03/12/[address] active 15 HISTORY OF FALLING 03/12/[address] active 16 HYPERLIPIDEMIA, UNSPECIFIED 03/12/[address] active 17 MORBID (SEVERE) OBESITY DUE TO EXCESS CALORIES 03/12/[address] active 18 MUSCLE WEAKNESS (GENERALIZED) 03/12/[address] active 19 OTHER ABNORMALITIES OF GAIT AND MOBILITY 03/12/20 17 10/18/[address] completed 20 PAIN IN RIGHT KNEE 03/12/[address] active 21 TYPE 2 DIABETES MELLITUS WITH DIABETIC NEUROPATHY, UNSPECIFIED 03/12/[address] active 22 URINARY TRACT INFECTION, SITE NOT SPECIFIED 03/12/20 17 10/18/[address] completed Reason for Referral No Reasons for Referral Entered Social History Social History Observation Description Start Date End Date Code Code System Current Smoking Status Tobacco smoking consumption unknown 682348518 SNOMED CT Sex Assigned At Female 1960 49495-0 [facility] Gender Identity Sexual Orientation Vital Signs Code Code System Vitals Name Values and Units Timing Information 9279-1 [facility] Respiratory Rate Value=18.0 Units=/m in 10/30/2020 8310-5 [facility] Body Temperature Value=96.7 Units= F 10/30/2020 56946-8 [facility] O2 % BldC Oximetry Value=94.0 Units= % 10/30/2020 2339-0 [facility] Blood Sugar Vmvhm=620.0 Units=mg/dL 10/30/2020 18696-1 [facility] Pain Level Value=0.0 10/30/2020 8462-4 [facility] Blood Pressure-Diastolic Value=68 Un its=mmHg 10/30/2020 8480-6 [facility] Blood Pressure-Systolic Pbbdi=141 Un its=mmHg 10/30/2020 8867-4 [facility] Heart rate Value=80.0 Units=/min 10/2020 02752-8 [facility] Weight Dibnu=792.8 Units=Lbs 8302-2 [facility] Height Value=66.0 Units=Inches 03/13/2017
--- NOTE | 2025-07-09 16:59 | PM.IMHP ---
History of Present Illness Date of Service: 07/09/25 Attending physician on admission: Carlos Eduardo Chaves Chief Complaint: Shortness of breath 64-year-old female with past medical history significant for ESRD on HD (MWF), morbid obesity, E coli ESBL, T2 dm, HLD, ES LD, HTN, chronic pain/neuropathy who presented to the ED complaining of worsening shortness of breath. Patient states that her last dialysis session was last Wednesday, subsequently patient developed diarrhea on Wednesday, missed her dialysis session and this time is presenting with worsening shortness of breath. In the ED labs with no leukocytosis, hemoglobin 9, creatinine 4.1, glucose 306, proBNP 6080, UA with small amount of leukocyte esterase, WBC and hyaline casts. Chest CTA with mild interstitial lung edema, cardiomegaly, no PE. Patient states that she is feeling short of breath, secondary to missed dialysis dose Review of Systems Review of Systems: Fourteen point review of systems obtained, negative except as stated above. [facility] Medical History HTN (hypertension) HLD (hyperlipidemia) Frequent UTI Anemia Acute on chronic diastolic (congestive) heart failure Type 2 diabetes mellitus with obesity Clostridium difficile diarrhea Morbid obesity Detrusor dysfunction Bladder outlet obstruction Esophagitis CKD (chronic kidney disease) stage 4, GFR 15-29 ml/min Hypothyroidism IBS (irritable bowel syndrome) Family History Father Diabetes Mother Diabetes Hypertension Breast cancer Family/Other Breast cancer Uterine cancer Surgical History History of tubal ligation Social History Household Members: None Housing: Apartment Do you presently have visiting nurse or other home services: Yes ([employer]) Alcohol intake: never Comment: bedbound at baseline Patient Tobacco Use Status: Former Tobacco user Smoked in Last 30 Days: No e-Cigarette/Vaping Use: Never Used Second Hand Smoke Exposure: No Use of substances other than those prescribed or required for medical reasons: No Advance Directives: Yes Advance Directives on File: Yes Advance Directives Date on File: 10/09/20 service: No Current occupational status: disabled Cognitive needs: No Hearing needs: No Vision needs: Yes Meds Allergies Allergy/AdvReac Type Severity Reaction Status Date / Time metformin (METFORMIN) Allergy Severe HIVES Verified 07/09/25 12:26 heparin Allergy Intermediate Itching Verified 07/09/25 12:26 canagliflozin (From Invokana) Allergy Hives Verified 07/09/25 12:26 Active Medications: Current Medications Acetaminophen (Acetaminophen 325 Mg Tablet) 650 mg PO Q6H PRN PRN Reason: Pain, Mild 1-3,fever,headache Calcium Carbonate (Calcium Carbonate 750 Mg Tab.Chew) 750 mg PO Q4H PRN PRN Reason: Heartburn Dextrose (Dextrose 50 % 25 Gm/50 Ml Syringe) 25 gm IVPUSH Q15M PRN; Protocol PRN Reason: per Hypoglycemia Standing Ord. Furosemide (Furosemide 40 Mg/4 Ml Vial) 40 mg IVPUSH BID@0900,1800 [facility]; Protocol Glucose (Glucose Gel 15 Gm Gel..Gram.) 15 gm PO Q15M PRN; Protocol PRN Reason: per Hypoglycemia Standing Ord. Hydralazine HCl (Hydralazine Hcl 20 Mg/Ml Vial) 10 mg IVPUSH Q6H PRN; Protocol PRN Reason: SBP > 160 Insulin Human Lispro (Insulin Lispro 100 Unit/Ml 3 Ml Vial) [facility]; Protocol Magnesium Hydroxide (Milk Of Magnesia 30 Ml Oral.Susp) 30 ml PO DAILY PRN PRN Reason: Constipation Melatonin (Melatonin 3 Mg Tablet) 6 mg PO BEDTIME PRN PRN Reason: Insomnia Ondansetron HCl (Ondansetron Hcl 4 Mg/2 Ml Vial) 4 mg IVPUSH Q8H PRN PRN Reason: Nausea and Vomiting Polyethylene Glycol (Polyethylene Glycol 3350 17 Gm Powd.Pack) 17 gm PO DAILY PRN PRN Reason: Constipation Sodium Chloride (0.9 % Sodium Chloride Flush 3 Ml Syringe) 3 ml IVFLUSH [facility] Home Medications ?Medication ?Instructions ?Recorded ?Confirmed ?Last Taken ?Type nystatin 100,000 unit/gram topical 1 appl topical TID 07/11/22 06/21/25 Unknown History cream Triamcinolone 0.1% Ointment 1 appl topical TID PRN diabetic 05/13/25 06/21/25 Unknown History psoriasis epoetin silverio 20,000 unit/mL 20,000 unit subcut TH 05/13/25 06/21/25 Unknown History injection solution Physical Exam Vital Signs and Narrative: Vital Signs: Last Vital Signs Temp 98.2 F 07/09/25 12:21 Pulse 61 07/09/25 15:29 Resp 20 07/09/25 15:29 BP 167/62 H 07/09/25 15:29 Pulse Ox 100 07/09/25 15:29 O2 Del Method Nasal Cannula 07/09/25 15:29 O2 Flow Rate 2 07/09/25 15:29 Oxygen Flow Rate 2 07/09/25 12:21 BMI result Body Mass Index 58.6 General: AxOx3, mild acute respiratory distress Head: AT/NC ENT: Moist mucous membranes Neck: supple CVS; RRR, S1 S2 normal Lungs: Clear bilateral breath sounds, no wheezes or crackles Abd: Soft non tender, non distended Ext: No calf tenderness MSK: moving all 4 limbs Skin: Anasarca Psych: Cooperative with exam Neurology: no focal deficit Results Labs 07/09/25 13:02 07/09/25 13:02 Labs: Laboratory Results - last 24 hr 07/09/25 07/09/25 07/09/25 12:55 13:02 13:09 MCV 100.0 H MCH 31.8 MCHC 31.8 RDW 14.1 Plt Count 194 MPV 9.8 Immature Gran % (Auto) 0.8 H Neut % (Auto) 78.4 H Lymph % (Auto) 10.6 L Tompkins % (Auto) 6.9 Eos % (Auto) 2.8 Baso % (Auto) 0.5 Lymph # (Auto) 1.0 L Tompkins # (Auto) 0.7 Eos # (Auto) 0.3 Baso # (Auto) 0.1 Abs Immat Gran (auto) 0.08 H Absolute Neuts (auto) 7.7 Absolute Nucleated RBC 0.000 Nucleated RBC % (auto) 0.0 D-Dimer High Sensitivty 418 VBG pH 7.37 VBG pCO2 46 VBG pO2 45 VBG HCO3 27 H VBG O2 Saturation 67.0 VBG Base Excess 1.7 Anion Gap 15 Estim Creat Clear Calc 21.3 Estimated GFR 11 Random Glucose 306 H Lactic Acid 1.4 Calcium 8.7 Magnesium 1.7 Total Bilirubin 0.3 Direct Bilirubin 0.1 AST 20 ALT 14 Alkaline Phosphatase 143 H Troponin I High Sens 17.6 H C-Reactive Protein 1.82 H NT-Pro-B Natriuret Pep 6080.4 H Total Protein 6.7 Albumin 3.5 Urine Color Urine Appearance Urine pH Ur Specific [place] Urine Protein Urine Glucose (UA) Urine Ketones Urine Blood Urine Nitrite Ur Leukocyte Esterase Urine RBC Urine WBC Ur Squamous Epith Cells Urine Bacteria Hyaline Casts Influenza Type A (PCR) NEGATIVE Influenza Type B (PCR) NEGATIVE RSV RNA Qual (PCR) NEGATIVE SARS-CoV-2 RNA (RT-PCR) NEGATIVE 07/09/25 13:21 MCV MCH MCHC RDW Plt Count MPV Immature Gran % (Auto) Neut % (Auto) Lymph % (Auto) Tompkins % (Auto) Eos % (Auto) Baso % (Auto) Lymph # (Auto) Tompkins # (Auto) Eos # (Auto) Baso # (Auto) Abs Immat Gran (auto) Absolute Neuts (auto) Absolute Nucleated RBC Nucleated RBC % (auto) D-Dimer High Sensitivty VBG pH VBG pCO2 VBG pO2 VBG HCO3 VBG O2 Saturation VBG Base Excess Anion Gap Estim Creat Clear Calc Estimated GFR Random Glucose Lactic Acid Calcium Magnesium Total Bilirubin Direct Bilirubin AST ALT Alkaline Phosphatase Troponin I High Sens C-Reactive Protein NT-Pro-B Natriuret Pep Total Protein Albumin Urine Color Yellow Urine Appearance Clear Urine pH 6.5 Ur Specific [place] 1.015 Urine Protein 100 (2+) H Urine Glucose (UA) 500 H Urine Ketones Negative Urine Blood Negative Urine Nitrite Negative Ur Leukocyte Esterase Small (1+) H Urine RBC 0-2 Urine WBC 21-50 H Ur Squamous Epith Cells 3-5 Urine Bacteria None Seen Hyaline Casts 0-2 Influenza Type A (PCR) Influenza Type B (PCR) RSV RNA Qual (PCR) SARS-CoV-2 RNA (RT-PCR) Imaging Radiologist's Impressions: Impressions Chest X-Ray 07/09/25 13:45 IMPRESSION: Chronic interstitial lung disease with the questionable worsening airspace disease, right lung. Underlying malignancy cannot be excluded. Electronically signed by: Zion Lechuga MD 07/09/2025 01:51 PM EST Chest CTA 07/09/25 15:04 IMPRESSION: No acute pulmonary artery emboli, main pulmonary artery or its main branches. No aneurysm or dissection, thoracic aorta. Mild interstitial lung edema. Cardiomegaly. Coronary artery disease. Probable hepatocellular disease. Fleischner guidelines were followed. Electronically signed by: Zion Lechuga MD 07/09/2025 03:58 PM [facility] Assessment and Plan (1) Acute respiratory failure with hypoxia: Status: Acute (2) Acute kidney injury superimposed on chronic kidney disease: Status: Acute (3) Heart failure with preserved ejection fraction: Qualifiers: Heart failure chronicity: acute on chronic Qualified Code(s): I50.33 - Acute on chronic diastolic (congestive) heart failure Status: Acute (4) Morbid obesity: Status: Acute (5) T2DM (type 2 diabetes mellitus): Qualifiers: Diabetes mellitus senior care insulin use: with terminal press operator use Diabetes mellitus complication status: with kidney complications Diabetes mellitus complication detail: with chronic kidney disease Chronic kidney disease stage: on chronic dialysis Qualified Code(s): E11.22 - Type 2 diabetes mellitus with diabetic chronic kidney disease; N18.6 - End stage renal disease; Z79.4 - terminal operations supervisor (current) use of insulin; Z99.2 - Dependence on renal dialysis Status: Acute (6) ESRD (end stage renal disease) on dialysis: Status: Acute (7) HTN (hypertension): Qualifiers: Hypertension type: primary hypertension Qualified Code(s): I10 - Essential (primary) hypertension Status: Acute Plan Assessment: 65-year-old female who presented to the ED complaining of worsening shortness of breath, secondary to missed dialysis session on 07/06 due to diarrhea. Patient recently completed antibiotics for UTI with Bactrim. Impression Acute hypoxic respiratory failure likely secondary to fluid overload from missed dialysis session ESRD on hemodialysis on Wednesday schedule RASHEEDA on CKD, with patient's baseline around 2-3, with UA showing hyaline casts HFpEF (EF 55-60%) -labs reviewed, -pro BNP 6080 -echo done on 06/12 with EF of 55-60%, with indeterminate filling pressures, normal right ventricular cavity size and systolic function -nephrology consulted -40 mg of IV Lasix b.i.d. given, we will await further recommendations from Nephrology -strict Is&Os -continue supplemental oxygen, with goal SpO2 greater than 90% -at this time low suspicion for infectious etiology, likely secondary to fluid overload Hypertension, chronic -awaiting med rec, this time we will continue with IV Lasix, and p.r.n. hydralazine. T2DM, chronic will initiate ISS, will await for med rec to restart meds Morbid obesity secondary to increased caloric intake Ambulatory dysfunction secondary to above -renal diet with low-sodium, dietary consulted FEN: NI, replete as needed, dialysis GI PPX: NI DVT PPX: SCDs, unable to do heparin secondary to allergies Code status: Full code Disposition: All questions and concerns with the patient were answered to satisfaction. All pertinent clinical documents, images and labs were reviewed. DISCLAIMER: This document was created using voice recognition software. Any mistakes in the prescription are unintentional. An attempt was made to focus for accuracy, but to expedite availability, some errors may persist. Please contact with any need for correction or further clarification Total time managing care of this patient today: 75 minutes. Quality Stroke Does the patient have a stroke diagnosis?: No VTE Prior VTE?: No VTE Risk Level:: Medical - moderate - high VTE Device Contraindication: N/A - Device Ordered VTE Drug Contraindication: Drug Allergy
[2025-07-09] MEDS: Furosemide 40 MG/4 ML VIAL IVPUSH (18:13)
--- NOTE | 2025-07-09 18:30 | HO.NURTONUR ---
PER MD: 64-year-old female with past medical history significant for ESRD on HD (MWF), morbid obesity, E coli ESBL, T2 dm, HLD, ES LD, HTN, chronic pain/neuropathy who presented to the ED complaining of worsening shortness of breath. Patient states that her last dialysis session was last Wednesday, subsequently patient developed diarrhea on Wednesday, missed her dialysis session and this time is presenting with worsening shortness of breath. In the ED labs with no leukocytosis, hemoglobin 9, creatinine 4.1, glucose 306, proBNP 6080, UA with small amount of leukocyte esterase, WBC and hyaline casts. Chest CTA with mild interstitial lung edema, cardiomegaly, no PE. Patient states that she is feeling short of breath, secondary to missed dialysis dose PER RN: Alert and oriented, Persian and Welsh speaking Admit: CHF, fluid overload, RASHEEDA on chronic kidney issue, missed dialysis Pain: ABD C.C: diarrhea, SOB, general malaise, urinary symptoms (foul odor, increased frequency) IV: 20g in right AC Nothing on the left- FISTULA Fungal rash on panus and genital area, cleaned and nystatin placed. Bed mathis for bathroom NSR on bedside flamer after lasting No episodes of diarrhea in ER Diabetic diet, independent with eating- awaiting home meds to be ordered, provider aware
[2025-07-09 18:57] LABS: NT Pro B Type Natriuretic Pept 6915.5 pg/mL (<300)
--- NOTE | 2025-07-09 19:22 | PC.NURSE ---
assumed care of pt, pt will continue to use bedpan rather than purewick. Respirations even and unlabored, SP02 100% on 2L baseline.
--- NOTE | 2025-07-09 20:10 | PHA.MEDREC ---
Addendum entered by Brenda Payne RPh 07/09/25 20:38: Reviewed by pharmacist Original Note: Pharmacy Consult ? Medication Reconciliation Pharmacy has completed the medication reconciliation. Spoke with pt and she confirmed her medications. Pt confirmed she uses her Humalog insulin per a sliding scale TIDAC and 20 units of Lantus at bedtime and pt confirmed she still takes Hydralazine 25mg TID and has some at home; LF in claims 06/19 for 10 days.
--- NOTE | 2025-07-09 20:26 | MHC.EDTECH ---
Assisted pt to use bedpan. Amada care done. RN aware
--- NOTE | 2025-07-09 20:28 | PC.NURSE ---
pt requesting Nystop powder, provider advised, awaiting new orders.
[2025-07-09 20:51] LABS: Glucose, Whole Blood 293 mg/dL (60-115)
[2025-07-09] MEDS: Insulin Glargine,Hum.rec.anlog 100 UNIT/ML 10 ML VIAL 10 UNIT SUBCUT (21:01)
--- NOTE | 2025-07-09 21:15 | PC.NURSE ---
pt refused 6 units of lispro per protocol as her POC was 293. provider advised. provider reports she will come see pt.
--- NOTE | 2025-07-09 21:25 | PC.NURSE ---
pharmacy to bring down metoprolol and ropinirole as they re not available [facility]
--- NOTE | 2025-07-09 21:25 | PC.NURSE ---
provider spoke with pt and we will re check her POC at 1015 and if still elevated she will agree to take insulin ordered per protocol.
--- NOTE | 2025-07-09 22:24 | PC.NURSE ---
called pharmacy regarding medications, they confirm thy will e own with it in just a few minutes
--- NOTE | 2025-07-09 22:37 | PC.NURSE ---
per provider 6 units given now, pt amendable to this as her sugar is still elevated.
[2025-07-09 22:41] LABS: Glucose, Whole Blood 301 mg/dL (60-115)
[2025-07-09] MEDS: Metoprolol Tartrate 12.5 MG HALFTAB PO (22:47)
--- NOTE | 2025-07-09 22:48 | PC.NURSE ---
pt declined senna at this time stating she has had bowel movement and doesn't feel she needs it.
[2025-07-10] MEDS: 0.9 % Sodium Chloride Flush 3 ML SYRINGE IVFLUSH ×2 (00:46→16:25)
[2025-07-10 04:27] LABS: Hematocrit 29.0 % (37.0-47.0); Hemoglobin 9.1 g/dl (12.0-16.0); Mean Corpuscular HGB Conc 31.4 g/dl (31.0-35.0); Mean Corpuscular Hemoglobin 31.6 pg (27.0-33.0); Mean Corpuscular Volume 100.7 fL (80.0-98.0); NRBC Abs Auto 0.000 X10*3/uL (0.0-0.012); NRBC Pct Auto 0.0 /100WBC (0.0-0.2); Platelet Count 202 X10*3/uL (160-400); Red Blood Count 2.88 X10*6/uL (4.20-5.50); White Blood Count 10.8 X10*3/uL (4.8-10.8)
[2025-07-10 04:48] LABS: Anion Gap 15 (12-20); Blood Urea Nitrogen 68 mg/dL (9-16); Calcium 8.6 mg/dL (8.4-10.2); Carbon Dioxide 23 mmol/L (22-29); Chloride 101 mmol/L (96-108); Creatinine Clr Calc Pharmacy 21.0; Estimated Glomerular Filt Rate 11; Magnesium 1.8 mg/dL (1.6-2.6); Potassium 4.8 mmol/L (3.3-5.1); Sodium 134 mmol/L (135-145)
[2025-07-10 05:02] LABS: Thyroid Stimulating Hormone 1.24 uIU/mL (0.32-4.0)
[2025-07-10 06:35] VITALS: BP 134/41; PULSE 53; RESP 20; TEMP 36.7; O2SAT 99
[2025-07-10 06:51] LABS: Glucose, Whole Blood 193 mg/dL (60-115)
--- NOTE | 2025-07-10 07:49 | HO.NURTONUR ---
Pt A&O X4 VSS Only complaints this am was right knee pain which pt describes as chronic. Pt medicated with Tyylenol and Gabapenitn per request. Pt then picked up for Dialysis. Pt roman all of breakfast. Admit assess sheet done for prep for tx to inpatient after dialysis.
--- NOTE | 2025-07-10 10:41 | MHC.CM.PN ---
Met w/pt to discuss d/c planning needs: [place] [facility] [place] in the setting of [place] appointments. Pt states she lives alone, has 8 hours per day of [employer] care and attends HD on , , at [facility] w/transportation provided. Pt states she misses her HD appointments d/t various factors such as fatigue, illness/malaise - verbalized understanding of necessity of HD even if she is tired or not feeling up to it Pt will need BLS transportation to home: IMM in chart, HCP on file and verified: No additional services or DME needed.
--- NOTE | 2025-07-10 12:53 | PM.CNNEP ---
History of Present Illness Reason for Consult Consult date: 07/10/25 Reason for consult: ESRD and HD management Chief Complaint Chief complaint: shortness of breath History of Present Illness Narrative: TIM consulted for ESRD and HD management In summary 65-year-old female who presented to the ED complaining of worsening shortness of breath, secondary to missed dialysis session on 07/06 due to diarrhea. Complicated med history as outlined by hospitalist and includes SRD HD 3x/wk. Cont SOB and requires home O2 Challenging to get her to dry wt at [facility] Recent UTI and on a course of ABX On/Off diarrhea issues Review of Systems Review of Systems Fourteen point review of systems obtained, negative except as stated above. [facility] Past Medical History Medical History HTN (hypertension) HLD (hyperlipidemia) Frequent UTI Anemia Acute on chronic diastolic (congestive) heart failure Type 2 diabetes mellitus with obesity Clostridium difficile diarrhea Morbid obesity Detrusor dysfunction Bladder outlet obstruction Esophagitis CKD (chronic kidney disease) stage 4, GFR 15-29 ml/min Hypothyroidism IBS (irritable bowel syndrome) Family History Family History Father Diabetes Mother Diabetes Hypertension Breast cancer Family/Other Breast cancer Uterine cancer Surgical History Surgical History History of tubal ligation Social History Social History Household Members: None Housing: Apartment Do you presently have visiting nurse or other home services: No Alcohol intake: never Comment: bedbound at baseline Patient Tobacco Use Status: Former Tobacco user e-Cigarette/Vaping Use: Never Used Second Hand Smoke Exposure: No Advance Directives Date on File: 10/09/20 service: No Current occupational status: disabled Cognitive needs: No Hearing needs: No Vision needs: Yes Meds Allergies Allergy/AdvReac Type Severity Reaction Status Date / Time metformin (METFORMIN) Allergy Severe HIVES Verified 07/09/25 12:26 heparin Allergy Intermediate Itching Verified 07/09/25 12:26 canagliflozin (From Invokana) Allergy Hives Verified 07/09/25 12:26 Active Medications: Current Medications Acetaminophen (Acetaminophen 325 Mg Tablet) 650 mg PO Q6H PRN PRN Reason: Pain, Mild 1-3,fever,headache Last Admin: 07/10/25 07:18 Dose: 650 mg Amlodipine Besylate (Amlodipine Besylate 10 Mg Tablet) 10 mg PO DAILY [facility]; Protocol Calcium Carbonate (Calcium Carbonate 750 Mg Tab.Chew) 750 mg PO Q4H PRN PRN Reason: Heartburn Dextrose (Dextrose 50 % 25 Gm/50 Ml Syringe) 25 gm IVPUSH Q15M PRN; Protocol PRN Reason: per Hypoglycemia Standing Ord. Furosemide (Furosemide 40 Mg/4 Ml Vial) 40 mg IVPUSH BID@0900,1800 [facility]; Protocol Last Admin: 07/09/25 18:13 Dose: 40 mg Gabapentin (Gabapentin 100 Mg Capsule) 100 mg PO BID [facility] Last Admin: 07/10/25 07:18 Dose: 100 mg Glucose (Glucose Gel 15 Gm Gel..Gram.) 15 gm PO Q15M PRN; Protocol PRN Reason: per Hypoglycemia Standing Ord. Hydralazine HCl (Hydralazine Hcl 20 Mg/Ml Vial) 10 mg IVPUSH Q6H PRN; Protocol PRN Reason: SBP > 160 Hydralazine HCl (Hydralazine Hcl 25 Mg Tablet) 25 mg PO TID [facility]; Protocol Last Admin: 07/09/25 21:02 Dose: 25 mg Insulin Glargine (Insulin Glargine,Hum.Rec.Anlog 100 Unit/Ml 10 Ml Vial) 10 unit SUBCUT BEDTIME [facility] Last Admin: 07/09/25 21:01 Dose: 10 unit Insulin Human Lispro (Insulin Lispro 100 Unit/Ml 3 Ml Vial) 0 unit SUBCUT QIDACHS [facility]; Protocol Last Admin: 07/10/25 07:04 Dose: 2 unit Magnesium Hydroxide (Milk Of Magnesia 30 Ml Oral.Susp) 30 ml PO DAILY PRN PRN Reason: Constipation Melatonin (Melatonin 3 Mg Tablet) 6 mg PO BEDTIME PRN PRN Reason: Insomnia Metoprolol Tartrate (Metoprolol Tartrate 12.5 Mg Halftab) 12.5 mg PO BID [facility]; Protocol Last Admin: 07/09/25 22:47 Dose: 12.5 mg Nystatin (Nystatin Powder 15 Gm Bottle) 1 appl TOPICAL BID [facility]; Protocol Last Admin: 07/09/25 21:02 Dose: 1 appl Omeprazole (Omeprazole 20 Mg Capsule.Dr) 20 mg PO DAILY@0630 [facility] Last Admin: 07/10/25 06:33 Dose: 20 mg Ondansetron HCl (Ondansetron Hcl 4 Mg/2 Ml Vial) 4 mg IVPUSH Q8H PRN PRN Reason: Nausea and Vomiting Polyethylene Glycol (Polyethylene Glycol 3350 17 Gm Powd.Pack) 17 gm PO DAILY PRN PRN Reason: Constipation Ropinirole HCl (Ropinirole Hcl 0.25 Mg Tablet) 0.25 mg PO BEDTIME [facility] Last Admin: 07/09/25 22:47 Dose: 0.25 mg Senna (Sennosides 8.6 Mg Tablet) 17.2 mg PO BEDTIME [facility] Last Admin: 07/09/25 22:35 Dose: Not Given Sodium Chloride (0.9 % Sodium Chloride Flush 3 Ml Syringe) 3 ml IVFLUSH QSHIFT [facility] Last Admin: 07/10/25 00:46 Dose: 3 ml Triamcinolone Acetonide (Triamcinolone Acet 0.1 % Oint 15 Gm Tube) 1 appl TOPICAL TID PRN PRN Reason: Diabetic Psoriasis Home Medications ?Medication ?Instructions ?Recorded ?Confirmed ?Last Taken ?Type nystatin 100,000 unit/gram topical 1 appl topical TID PRN Rash 07/11/22 07/09/25 Unknown History cream insulin lispro 100 unit/mL See Protocol subcut TIDAC 07/09/25 07/09/25 07/08/25 History subcutaneous solution (Humalog U-100 Insulin) pantoprazole 20 mg tablet,delayed 20 mg PO DAILY@0630 07/09/25 07/09/25 07/09/25 History release triamcinolone acetonide 0.1 % 1 appl topical TID PRN Diabetic 07/09/25 07/09/25 Unknown History topical ointment Psoriasis Physical Exam Vital Signs: Last Vital Signs Temp 98.1 F 07/10/25 06:35 Pulse 53 07/10/25 06:35 Resp 20 07/10/25 06:35 BP 134/41 L 07/10/25 06:35 Pulse Ox 99 07/10/25 06:35 O2 Del Method Nasal Cannula 07/10/25 06:35 O2 Flow Rate 2 07/10/25 06:35 Oxygen Flow Rate 2 07/09/25 12:21 BMI result Body Mass Index 58.6 Results Lab Results 07/10/25 04:11 07/10/25 04:11 Lab results: Chemistry 07/09/25 07/10/25 13:02 04:11 Sodium 136 134 L Potassium 4.8 D 4.8 Carbon Dioxide 23 23 BUN 66 H 68 H Creatinine 4.11 H* 4.15 H* Calcium 8.7 8.6 Hematology 07/09/25 07/10/25 13:02 04:11 WBC 9.8 10.8 Hgb 9.0 L 9.1 L Plt Count 194 202 Urinalysis 07/09/25 13:21 Urine Color Yellow Urine Appearance Clear Urine pH 6.5 Ur Specific [place] 1.015 Urine Protein 100 (2+) H Urine Glucose (UA) 500 H Urine Ketones Negative Urine Blood Negative Urine Nitrite Negative Ur Leukocyte Esterase Small (1+) H Urine RBC 0-2 Urine WBC 21-50 H Ur Squamous Epith Cells 3-5 Hyaline Casts 0-2 Assessment and Plan (1) Acute respiratory failure with hypoxia: Status: Acute (2) Acute kidney injury superimposed on chronic kidney disease: Status: Acute (3) Heart failure with preserved ejection fraction: Qualifiers: Heart failure chronicity: acute on chronic Qualified Code(s): I50.33 - Acute on chronic diastolic (congestive) heart failure Status: Acute (4) Morbid obesity: Status: Acute (5) T2DM (type 2 diabetes mellitus): Qualifiers: Diabetes mellitus senior care insulin use: with senior care use Diabetes mellitus complication status: with kidney complications Diabetes mellitus complication detail: with chronic kidney disease Chronic kidney disease stage: on chronic dialysis Qualified Code(s): E11.22 - Type 2 diabetes mellitus with diabetic chronic kidney disease; N18.6 - End stage renal disease; Z79.4 - ferry terminal agent (current) use of insulin; Z99.2 - Dependence on renal dialysis Status: Acute (6) ESRD (end stage renal disease) on dialysis: Status: Acute (7) HTN (hypertension): Qualifiers: Hypertension type: primary hypertension Qualified Code(s): I10 - Essential (primary) hypertension Status: Acute Plan ESRD: nl MWF schedule but miss HD yesterday so HD today and agin tmw to get back on mwf schedule SOB: multifact: CHF, Obesity, ques intrisnc pulm dis Nephrogenic Anemia MBD of CKD REC: HD Tues and then again tmw to get back on mwf schedule Will follow w team Procedures Date of Service Date of Service: 07/10/25
[2025-07-10 13:06] LABS: Glucose, Whole Blood 156 mg/dL (60-115)
[2025-07-10 13:08] VITALS: BP 178/77; PULSE 59; RESP 18; TEMP 36.2; O2SAT 97
--- NOTE | 2025-07-10 14:34 | P.PNIM_ITS ---
Subjective Subjective Date of Service: 07/10/25 Interval History: Patient seen examined at bedside this morning, patient states that her breathing has improved, patient received IV diuretics yesterday, with plans on dialysis today. Review of Systems Review of Systems: Yes all other systems are reviewed and are negative Physical Exam 2 Exam: Exam: General: AxOx3, No acute distress on oxygen Head: AT/NC ENT: Moist mucous membranes Neck: supple CVS; RRR, S1 S2 normal Lungs: Clear bilateral breath sounds, no wheezes or crackles Abd: Soft non tender, non distended Ext: No edema and no calf tenderness MSK: moving all 4 limbs Skin: No cyanosis or edema Psych: Cooperative with exam Neurology: no focal deficit Vital Signs: Vital Signs: Last Vital Signs Temp 97.2 F 07/10/25 13:08 Pulse 59 07/10/25 13:08 Resp 18 07/10/25 13:08 BP 178/77 H 07/10/25 13:08 Pulse Ox 97 07/10/25 13:08 O2 Del Method Nasal Cannula 07/10/25 13:08 O2 Flow Rate 2 07/10/25 13:08 Oxygen Flow Rate 2 07/09/25 12:21 BMI result Body Mass Index 58.6 Objective Data Active Medications Acetaminophen (Acetaminophen 325 Mg Tablet) 650 mg PO Q6H PRN PRN Reason: Pain, Mild 1-3,fever,headache Last Admin: 07/10/25 07:18 Dose: 650 mg Documented By: HEIDI Amlodipine Besylate (Amlodipine Besylate 10 Mg Tablet) 10 mg PO DAILY [facility]; Protocol Last Admin: 07/10/25 12:54 Dose: Not Given Documented By: LES Non-Admin Reason: Off unit: Dialysis Calcium Carbonate (Calcium Carbonate 750 Mg Tab.Chew) 750 mg PO Q4H PRN PRN Reason: Heartburn Dextrose (Dextrose 50 % 25 Gm/50 Ml Syringe) 25 gm IVPUSH Q15M PRN; Protocol PRN Reason: per Hypoglycemia Standing Ord. Furosemide (Furosemide 40 Mg/4 Ml Vial) 40 mg IVPUSH BID@0900,1800 [facility]; Protocol Last Admin: 07/10/25 12:55 Dose: Not Given Documented By: LES Non-Admin Reason: Off unit: Dialysis Gabapentin (Gabapentin 100 Mg Capsule) 100 mg PO BID [facility] Last Admin: 07/10/25 07:18 Dose: 100 mg Documented By: HEIDI Glucose (Glucose Gel 15 Gm Gel..Gram.) 15 gm PO Q15M PRN; Protocol PRN Reason: per Hypoglycemia Standing Ord. Hydralazine HCl (Hydralazine Hcl 20 Mg/Ml Vial) 10 mg IVPUSH Q6H PRN; Protocol PRN Reason: SBP > 160 Hydralazine HCl (Hydralazine Hcl 25 Mg Tablet) 25 mg PO TID [facility]; Protocol Last Admin: 07/10/25 12:54 Dose: Not Given Documented By: LES Non-Admin Reason: Off unit: Dialysis Insulin Glargine (Insulin Glargine,Hum.Rec.Anlog 100 Unit/Ml 10 Ml Vial) 10 unit SUBCUT BEDTIME [facility] Last Admin: 07/09/25 21:01 Dose: 10 unit Documented By: BREANN Insulin Human Lispro (Insulin Lispro 100 Unit/Ml 3 Ml Vial) 0 unit SUBCUT QIDACHS [facility]; Protocol Last Admin: 07/10/25 12:56 Dose: Not Given Documented By: LES Non-Admin Reason: Off unit: Dialysis Magnesium Hydroxide (Milk Of Magnesia 30 Ml Oral.Susp) 30 ml PO DAILY PRN PRN Reason: Constipation Melatonin (Melatonin 3 Mg Tablet) 6 mg PO BEDTIME PRN PRN Reason: Insomnia Metoprolol Tartrate (Metoprolol Tartrate 12.5 Mg Halftab) 12.5 mg PO BID [facility]; Protocol Last Admin: 07/10/25 12:55 Dose: Not Given Documented By: LES Non-Admin Reason: Off unit: Dialysis Nystatin (Nystatin Powder 15 Gm Bottle) 1 appl TOPICAL BID [facility]; Protocol Last Admin: 07/10/25 12:53 Dose: Not Given Documented By: ELS Non-Admin Reason: Off unit: Dialysis Omeprazole (Omeprazole 20 Mg Capsule.) 20 mg PO DAILY@0630 [facility] Last Admin: 07/10/25 06:33 Dose: 20 mg Documented By: BREANN Ondansetron HCl (Ondansetron Hcl 4 Mg/2 Ml Vial) 4 mg IVPUSH Q8H PRN PRN Reason: Nausea and Vomiting Polyethylene Glycol (Polyethylene Glycol 3350 17 Gm Powd.Pack) 17 gm PO DAILY PRN PRN Reason: Constipation Ropinirole HCl (Ropinirole Hcl 0.25 Mg Tablet) 0.25 mg PO BEDTIME [facility] Last Admin: 07/09/25 22:47 Dose: 0.25 mg Documented By: BREANN Senna (Sennosides 8.6 Mg Tablet) 17.2 mg PO BEDTIME [facility] Last Admin: 07/09/25 22:35 Dose: Not Given Documented By: BREANN Non-Admin Reason: Patient Refused Sodium Chloride (0.9 % Sodium Chloride Flush 3 Ml Syringe) 3 ml IVFLUSH QSHIFT [facility] Last Admin: 07/10/25 12:55 Dose: Not Given Documented By: LES Non-Admin Reason: Off unit: Dialysis Triamcinolone Acetonide (Triamcinolone Acet 0.1 % Oint 15 Gm Tube) 1 appl TOPICAL TID PRN PRN Reason: Diabetic Psoriasis Labs 07/10/25 04:11 07/10/25 04:11 Labs: Laboratory Results - last 24 hr 07/09/25 07/09/25 07/09/25 18:30 20:47 22:35 MCV MCH MCHC RDW Plt Count MPV Absolute Nucleated RBC Nucleated RBC % (auto) Anion Gap Estim Creat Clear Calc Estimated GFR POC Glucose 293 H 301 H Random Glucose Calcium Magnesium NT-Pro-B Natriuret Pep 6915.5 H TSH 07/10/25 07/10/25 07/10/25 04:11 06:45 13:01 MCV 100.7 H MCH 31.6 MCHC 31.4 RDW 14.2 Plt Count 202 MPV 9.7 Absolute Nucleated RBC 0.000 Nucleated RBC % (auto) 0.0 Anion Gap 15 Estim Creat Clear Calc 21.0 Estimated GFR 11 POC Glucose 193 H 156 H Random Glucose 190 H Calcium 8.6 Magnesium 1.8 NT-Pro-B Natriuret Pep TSH 1.24 Microbiology Microbiology Results: Microbiology 07/09/25 Unknown Urine Culture - Final Urine clean catch - Clean Catch Midstream Assessment and Plan (1) Acute respiratory failure with hypoxia: Status: Acute (2) ESRD (end stage renal disease) on dialysis: Status: Acute (3) Heart failure with preserved ejection fraction: Status: Acute (4) T2DM (type 2 diabetes mellitus): Status: Acute (5) Morbid obesity: Status: Acute Plan Assessment: 65-year-old female who presented to the ED complaining of worsening shortness of breath, secondary to missed dialysis session on 07/06 due to diarrhea. Patient recently completed antibiotics for UTI with Bactrim. Impression Acute hypoxic respiratory failure likely secondary to fluid overload from missed dialysis session, improving ESRD on hemodialysis on Wednesday schedule RASHEEDA on CKD, with patient's baseline around 2-3, with UA showing hyaline casts HFpEF (EF 55-60%) -labs reviewed, -pro BNP 6080 -echo done on 06/12 with EF of 55-60%, with indeterminate filling pressures, normal right ventricular cavity size and systolic function -nephrology consulted -continue 40 mg of IV Lasix b.i.d. given -dialysis today -strict Is&Os -continue supplemental oxygen, with goal SpO2 greater than 90% -at this time low suspicion for infectious etiology, likely secondary to fluid overload Hypertension, chronic -we will continue with IV Lasix, po amlodipine, hydralazine 25mg TID and p.r.n. hydralazine. T2DM, chronic continue ISS, insuline glargine 10 units sq Morbid obesity secondary to increased caloric intake Ambulatory dysfunction secondary to above -renal diet with low-sodium, dietary consulted FEN: NI, replete as needed, dialysis GI PPX: NI DVT PPX: SCDs, unable to do heparin secondary to allergies Code status: Full code Disposition: All questions and concerns with the patient were answered to satisfaction. All pertinent clinical documents, images and labs were reviewed. DISCLAIMER: This document was created using voice recognition software. Any mistakes in the prescription are unintentional. An attempt was made to focus for accuracy, but to expedite availability, some errors may persist. Please contact with any need for correction or further clarification Quality Stroke Does the patient have a stroke diagnosis?: No VTE Prior VTE?: No VTE Risk Level:: Medical - moderate - high VTE Device Contraindication: N/A - Device Ordered VTE Drug Contraindication: Drug Allergy
[2025-07-10 14:50] VITALS: BP 174/71
[2025-07-10 15:47] VITALS: BP 168/73; PULSE 67; RESP 18; TEMP 36.4; O2SAT 100
[2025-07-10 16:40] LABS: Glucose, Whole Blood 255 mg/dL (60-115)
[2025-07-10 17:07] VITALS: BP 144/82
[2025-07-10] MEDS: Furosemide 40 MG/4 ML VIAL IVPUSH (17:07)
[2025-07-10 20:00] VITALS: BP 138/68; PULSE 67; RESP 20; TEMP 36.6; O2SAT 98
[2025-07-10 20:34] LABS: Glucose, Whole Blood 248 mg/dL (60-115)
[2025-07-10] MEDS: Metoprolol Tartrate 12.5 MG HALFTAB PO (21:14)
[2025-07-10] MEDS: Insulin Glargine,Hum.rec.anlog 100 UNIT/ML 10 ML VIAL 10 UNIT SUBCUT (21:18)
[2025-07-11 04:00] VITALS: BP 135/60; PULSE 55; RESP 18; TEMP 36.6; O2SAT 96
[2025-07-11 07:06] LABS: Hematocrit 27.1 % (37.0-47.0); Hemoglobin 8.8 g/dl (12.0-16.0); Mean Corpuscular HGB Conc 32.5 g/dl (31.0-35.0); Mean Corpuscular Hemoglobin 32.6 pg (27.0-33.0); Mean Corpuscular Volume 100.4 fL (80.0-98.0); NRBC Abs Auto 0.000 X10*3/uL (0.0-0.012); NRBC Pct Auto 0.0 /100WBC (0.0-0.2); Platelet Count 181 X10*3/uL (160-400); Red Blood Count 2.70 X10*6/uL (4.20-5.50); White Blood Count 9.5 X10*3/uL (4.8-10.8)
--- NOTE | 2025-07-11 07:19 | P.PNIM_ITS ---
Subjective Subjective Date of Service: 07/11/25 Physical Exam 2 Vital Signs: Vital Signs: Last Vital Signs Temp 97.8 F 07/11/25 04:00 Pulse 55 07/11/25 04:00 Resp 18 07/11/25 04:00 BP 135/60 07/11/25 04:00 Pulse Ox 96 07/11/25 04:00 O2 Del Method Nasal Cannula 07/11/25 04:00 O2 Flow Rate 3 07/11/25 04:00 Oxygen Flow Rate 2 07/09/25 12:21 BMI result Body Mass Index 58.6 Objective Data Active Medications Acetaminophen (Acetaminophen 325 Mg Tablet) 650 mg PO Q6H PRN PRN Reason: Pain, Mild 1-3,fever,headache Last Admin: 07/10/25 07:18 Dose: 650 mg Documented By: HEIDI Amlodipine Besylate (Amlodipine Besylate 10 Mg Tablet) 10 mg PO DAILY [facility]; Protocol Last Admin: 07/10/25 12:54 Dose: Not Given Documented By: LES Non-Admin Reason: Off unit: Dialysis Calcium Carbonate (Calcium Carbonate 750 Mg Tab.Chew) 750 mg PO Q4H PRN PRN Reason: Heartburn Dextrose (Dextrose 50 % 25 Gm/50 Ml Syringe) 25 gm IVPUSH Q15M PRN; Protocol PRN Reason: per Hypoglycemia Standing Ord. Docusate Sodium (Docusate Sodium 100 Mg Capsule) 100 mg PO BEDTIME [facility] Last Admin: 07/10/25 22:37 Dose: 100 mg Documented By: VIOLETA Furosemide (Furosemide 40 Mg/4 Ml Vial) 40 mg IVPUSH BID@0900,1800 [facility]; Protocol Last Admin: 07/10/25 17:07 Dose: 40 mg Documented By: JENNIFER Gabapentin (Gabapentin 100 Mg Capsule) 100 mg PO BID [facility] Last Admin: 07/10/25 21:14 Dose: 100 mg Documented By: VIOLETA Glucose (Glucose Gel 15 Gm Gel..Gram.) 15 gm PO Q15M PRN; Protocol PRN Reason: per Hypoglycemia Standing Ord. Hydralazine HCl (Hydralazine Hcl 20 Mg/Ml Vial) 10 mg IVPUSH Q6H PRN; Protocol PRN Reason: SBP > 160 Hydralazine HCl (Hydralazine Hcl 25 Mg Tablet) 25 mg PO TID [facility]; Protocol Last Admin: 07/10/25 21:13 Dose: 25 mg Documented By: VIOLETA Insulin Glargine (Insulin Glargine,Hum.Rec.Anlog 100 Unit/Ml 10 Ml Vial) 10 unit SUBCUT BEDTIME [facility] Last Admin: 07/10/25 21:18 Dose: 10 unit Documented By: VIOLETA Insulin Human Lispro (Insulin Lispro 100 Unit/Ml 3 Ml Vial) 0 unit SUBCUT QIDACHS [facility]; Protocol Last Admin: 07/10/25 21:18 Dose: 4 unit Documented By: VIOLETA Magnesium Hydroxide (Milk Of Magnesia 30 Ml Oral.Susp) 30 ml PO DAILY PRN PRN Reason: Constipation Melatonin (Melatonin 3 Mg Tablet) 6 mg PO BEDTIME PRN PRN Reason: Insomnia Metoprolol Tartrate (Metoprolol Tartrate 12.5 Mg Halftab) 12.5 mg PO BID [facility]; Protocol Last Admin: 07/10/25 21:14 Dose: 12.5 mg Documented By: VIOLETA Nystatin (Nystatin Powder 15 Gm Bottle) 1 appl TOPICAL BID [facility]; Protocol Last Admin: 07/10/25 21:23 Dose: 1 appl Documented By: VIOLETA Omeprazole (Omeprazole 20 Mg Capsule.Dr) 20 mg PO DAILY@0630 [facility] Last Admin: 07/11/25 06:44 Dose: Not Given Documented By: VIOLETA Non-Admin Reason: Off unit: Dialysis Ondansetron HCl (Ondansetron Hcl 4 Mg/2 Ml Vial) 4 mg IVPUSH Q8H PRN PRN Reason: Nausea and Vomiting Polyethylene Glycol (Polyethylene Glycol 3350 17 Gm Powd.Pack) 17 gm PO DAILY PRN PRN Reason: Constipation Ropinirole HCl (Ropinirole Hcl 0.25 Mg Tablet) 0.25 mg PO BEDTIME [facility] Last Admin: 07/10/25 21:11 Dose: 0.25 mg Documented By: VIOLETA Senna (Sennosides 8.6 Mg Tablet) 17.2 mg PO BEDTIME [facility] Last Admin: 07/10/25 21:11 Dose: 17.2 mg Documented By: VIOLETA Sodium Chloride (0.9 % Sodium Chloride Flush 3 Ml Syringe) 3 ml IVFLUSH QSHIFT [facility] Last Admin: 07/11/25 01:00 Dose: Not Given Documented By: VIOLETA Non-Admin Reason: Previously Administered Triamcinolone Acetonide (Triamcinolone Acet 0.1 % Oint 15 Gm Tube) 1 appl TOPICAL TID PRN PRN Reason: Diabetic Psoriasis Labs 07/11/25 06:40 07/10/25 04:11 Labs: Laboratory Results - last 24 hr 07/10/25 07/10/25 07/10/25 13:01 16:36 20:20 MCV MCH MCHC RDW Plt Count MPV Absolute Nucleated RBC Nucleated RBC % (auto) POC Glucose 156 H 255 H 248 H 07/11/25 06:40 MCV 100.4 H MCH 32.6 MCHC 32.5 RDW 14.4 Plt Count 181 MPV 10.0 Absolute Nucleated RBC 0.000 Nucleated RBC % (auto) 0.0 POC Glucose Microbiology Microbiology Results: Microbiology 07/09/25 13:02 Blood Culture - Preliminary Blood - Venous No growth after 24 hours. 07/09/25 12:55 Blood Culture - Preliminary Blood - Venous No growth after 24 hours. 07/09/25 Unknown Urine Culture - Final Urine clean catch - Clean Catch Midstream Quality Stroke Does the patient have a stroke diagnosis?: No VTE Prior VTE?: No VTE Risk Level:: Medical - moderate - high VTE Device Contraindication: N/A - Device Ordered VTE Drug Contraindication: Drug Allergy
[2025-07-11 07:21] LABS: Anion Gap 12 (12-20); Blood Urea Nitrogen 40 mg/dL (9-16); Calcium 8.3 mg/dL (8.4-10.2); Carbon Dioxide 27 mmol/L (22-29); Chloride 100 mmol/L (96-108); Creatinine Clr Calc Pharmacy 25.8; Estimated Glomerular Filt Rate 14; Magnesium 1.8 mg/dL (1.6-2.6); Potassium 4.4 mmol/L (3.3-5.1); Sodium 135 mmol/L (135-145)
[2025-07-11 07:45] LABS: Glucose, Whole Blood 278 mg/dL (60-115)
--- NOTE | 2025-07-11 08:45 | PC.RT ---
pt in dialysis this am. c/o of sob. Dialysis nurse called resp to come see. pt has no hx of copd/asthma. most likely sob due to fluid overload, pt says she needs to cough but doesnt want to because she is afraid of voidong.
--- NOTE | 2025-07-11 11:05 | P.DS_ITS ---
DS: Providers Provider Date of Service: 07/11/25 Date of admission: 07/09/25 16:39 Date of discharge: 07/11/25 Primary care physician: Alexi Lynne MD Consults: 07/09/25 16:21 Consult to Nephrology Stat Consulting Provider: Maximus Ash Reason for consultation: volume overload, dyspnea Has provider been notified: Yes DS: Diagnosis Discharge Diagnosis (1) Acute respiratory failure with hypoxia: Status: Acute (2) ESRD (end stage renal disease) on dialysis: Status: Acute (3) Heart failure with preserved ejection fraction: Status: Acute (4) T2DM (type 2 diabetes mellitus): Status: Acute (5) Morbid obesity: Status: Acute DS: Summary Hospital Course Hospital Course: Per H&P:64-year-old female with past medical history significant for ESRD on HD (MWF), morbid obesity, recurrent E coli ESBL, T2 dm, HLD, ES LD, HTN, chronic pain/neuropathy who presented to the ED complaining of worsening shortness of breath. Patient states that her last dialysis session was last Wednesday, subsequently patient developed diarrhea on Wednesday, missed her dialysis session and this time is presenting with worsening shortness of breath. In the ED labs with no leukocytosis, hemoglobin 9, creatinine 4.1, glucose 306, proBNP 6080, UA with small amount of leukocyte esterase, WBC and hyaline casts. Chest CTA with mild interstitial lung edema, cardiomegaly, no PE. Patient states that she is feeling short of breath, secondary to missed dialysis dose Hospital course-she received rescue dialysis for her missed session on admission on 07/10/2025 and per her usual schedule on 07/11/2025. Other than that we have not made any changes to her chronic medical conditions. For her chronic medical conditions, we have not made any changes-patient to follow up with PCP Time spent discussing smoking cessation with patient: more than 10 minutes Status at Discharge Functional status at discharge: bed bound Time Attestation Discharge Coordination Time (in mins): 45 Quality: Safe Use of Opioids Does Pt have an Active Cancer Diagnosis on the Problem List?: No Quality: Stroke Does the patient have a stroke diagnosis?: No Physical Exam Vital Signs: Vital Signs: Last Vital Signs Temp 97.8 F 07/11/25 04:00 Pulse 55 07/11/25 04:00 Resp 18 07/11/25 04:00 BP 135/60 07/11/25 04:00 Pulse Ox 96 07/11/25 04:00 O2 Del Method Nasal Cannula 07/11/25 04:00 O2 Flow Rate 3 07/11/25 04:00 Oxygen Flow Rate 2 07/09/25 12:21 BMI result Body Mass Index 58.6 Appearance: Alert. Oriented X3. No acute distress. Eyes: Pupils equal, round and reactive to light. ENT: Pharynx normal. Neck: Normal inspection. Neck supple. CVS: Normal heart rate and rhythm. Pulses normal. Respiratory: No respiratory distress. Breath sounds diminished with rales in both bases Abdomen: Soft and nontender. Groin has bilateral red area with moisture and satellite lesions consistent with candidiasis Skin: Skin warm and dry. Normal skin color. Normal skin turgor. Extremities: 3+ pitting edema of both lower extremities Neuro: Oriented X 3. No motor deficit. No sensory deficit. CN2-12 intact DS: Data Data Completed and Pending Completed studies during hospitalization [Text1]: Procedures Excision of Duodenum, Via Natural or Artificial Opening Endoscopic, Diagnostic (07/31/20) Excision of Stomach, Pylorus, Via Natural or Artificial Opening Endoscopic, Diagnostic (07/31/20) Performance of Urinary Filtration, Intermittent, Less than 6 Hours Per Day (06/16/25) Labs on day of discharge: Laboratory Results - last 24 hr 07/10/25 07/10/25 07/10/25 13:01 16:36 20:20 WBC RBC Hgb Hct MCV MCH MCHC RDW Plt Count MPV Absolute Nucleated RBC Nucleated RBC % (auto) Sodium Potassium Chloride Carbon Dioxide Anion Gap BUN Creatinine Estim Creat Clear Calc Estimated GFR POC Glucose 156 H 255 H 248 H Random Glucose Calcium Magnesium 07/11/25 07/11/25 06:40 07:39 WBC 9.5 RBC 2.70 L Hgb 8.8 L Hct 27.1 L MCV 100.4 H MCH 32.6 MCHC 32.5 RDW 14.4 Plt Count 181 MPV 10.0 Absolute Nucleated RBC 0.000 Nucleated RBC % (auto) 0.0 Sodium 135 Potassium 4.4 Chloride 100 Carbon Dioxide 27 Anion Gap 12 BUN 40 H Creatinine 3.38 H Estim Creat Clear Calc 25.8 Estimated GFR 14 POC Glucose 278 H Random Glucose 272 H Calcium 8.3 L Magnesium 1.8 Preliminary micro results at discharge 07/09/25 13:02 Blood Culture - Preliminary Blood - Venous No growth after 24 hours. 07/09/25 12:55 Blood Culture - Preliminary Blood - Venous No growth after 24 hours. Discharge Plan Discharge Anticipated Discharge Date/Time: 07/11/25 10:37 Patient Disposition: Home Health Service Discharge Diagnosis: Shortness of breath secondary to missing hemodialysis session on Wednesday, received rescue dialysis on Wednesday Referrals: Alexi Lynne MD [Primary Care Provider, Internal Medicine] - 1 Week Maximus Ash MD [Physician, Nephrology] - 1 Week Discharge Medications: Continued (DME) Accu-Chek Berna Plus test strp Strip See Rx Instructions .Route Qty: 300 8RF Rx Instructions: to check blood sugars five times a day (DME) blood sugar diagnostic Strip See Rx Instructions .ROUTE .MEDSUPPLY Qty: 200 8RF Rx Instructions: FREESTYLE TEST STRIPS (DME) hospital bed Kit See Rx Instructions .Route Qty: 1 0RF Rx Instructions: As directed (DME) pen needle, diabetic 32 gauge x 5/32 needle See Rx Instructions .Route Qty: 100 0RF Rx Instructions: use TID (DME) insulin syringe-needle U-100 [BD Insulin Syringe Ultra-Fine] 1 mL 30 gauge x 1/2 syringe See Rx Instructions .ROUTE .MEDSUPPLY Qty: 100 3RF Rx Instructions: TID nystatin 100,000 unit/gram Cream 1 appl TOPICAL TID PRN (Reason: Rash) Protocol: Apply to: Apply to: UNDER BREASTS, BELLY FOLDS pantoprazole 20 mg tablet,delayed release (DR/EC) 20 mg PO DAILY@0630 triamcinolone acetonide 0.1 % ointment 1 appl topical TID PRN (Reason: Diabetic Psoriasis ) insulin lispro [Humalog U-100 Insulin] 100 unit/mL solution See Protocol subcut TIDAC Protocol: Insulin Correction Scale Less than or equal to 110 ---- Give (units): 0 111 to 150 Give (units): 0 151 to 200 Give (units): 2 201 to 250 Give (units): 4 251 to 300 Give (units): 6 301 to 350 Give (units): 8 Greater than 350 Give (units): 10 Call MD if Blood Glucose > : 350 Rx Instructions: Patient uses a sliding scale sennosides [senna] 8.6 mg Tablet 17.2 mg PO BEDTIME 30 Days Qty: 30 3RF acetaminophen 325 mg Tablet 650 mg PO Q6H PRN (Reason: Pain (Scale Score 4-6)) 30 Days Qty: 3 3RF ropinirole 0.25 mg tablet 0.25 mg PO BEDTIME 30 Days Qty: 30 2RF amlodipine 10 mg tablet 10 mg PO DAILY 30 Days Qty: 30 3RF docusate sodium 100 mg Capsule 100 mg PO DAILY 30 Days Qty: 30 3RF ondansetron 4 mg tablet,disintegrating 4 mg translingual TIDAC PRN (Reason: nausea) 30 Days Qty: 12 3RF insulin glargine [Lantus Solostar U-100 Insulin] 100 unit/mL (3 mL) insulin pen 20 unit subcut BEDTIME 30 Days Qty: 3 3RF oxybutynin chloride 15 mg tablet extended release 24hr 15 mg PO DAILY 30 Days Qty: 30 3RF hydralazine 25 mg Tablet 25 mg PO TID 30 Days Qty: 30 3RF gabapentin 100 mg capsule 100 mg PO BID 30 Days Qty: 60 0RF metoprolol tartrate 25 mg tablet 12.5 mg PO BID Qty: 60 3RF Discharge Orders: Discharge Order (Routine); Ordered 07/11/25 Ordered By: Alicia Cotter Diet: Low K, low phos Activity on Discharge: As tolerated Stand Alone Forms: Patient Portal Discharge page Print Language: Bengali Care Plan Goals: Continue hemodialysis per session Wednesday without missing it Continue taking your home meds Follow up with your PCP Health Concerns: See above Plan of Treatment: See above Assessment: See above
[2025-07-11 11:26] LABS: Glucose, Whole Blood 213 mg/dL (60-115)
--- NOTE | 2025-07-11 11:39 | MHC.CM.PN ---
PT DCD TODAY HOME WITH [employer] OTHER RANKS BY RAYMON
[2025-07-11 11:45] VITALS: BP 148/68; PULSE 68; RESP 16; TEMP 36.4; O2SAT 98
[2025-07-11] MEDS: Furosemide 40 MG/4 ML VIAL IVPUSH (12:05)
[2025-07-11] MEDS: Metoprolol Tartrate 12.5 MG HALFTAB PO (12:12)
[2025-07-11] MEDS: 0.9 % Sodium Chloride Flush 3 ML SYRINGE IVFLUSH (12:12)
[2025-07-11 14:56] VITALS: BP 146/70; PULSE 61; RESP 16; TEMP 36.4; O2SAT 98
== END 2025-07-11 15:12 | disposition home health service (06) | DRG 640 ==
LOC: HO.ED 16:24 → HO.EDOVER 16:47 → HO.S3 07-10 08:59
PROVIDERS: Emergency Medicine; Admitting Provider Student in an Organized Health Care Education/Training Program; Emergency Provider Emergency Medicine; PCP Internal Medicine; Visit Provider Student in an Organized Health Care Education/Training Program
DX: E87.70 Fluid overload, unspecified (principal); N18.6 End stage renal disease; I13.2 Hypertensive heart and chronic kidney disease with heart failure and with stage 5 chronic kidney disease, or end stage renal disease; Z68.43 Body mass index [BMI] 50.0-59.9, adult; I50.32 Chronic diastolic (congestive) heart failure; N17.9 Acute kidney failure, unspecified; E11.22 Type 2 diabetes mellitus with diabetic chronic kidney disease; Z99.2 Dependence on renal dialysis; Z74.01 Bed confinement status; E66.01 Morbid (severe) obesity due to excess calories; E11.40 Type 2 diabetes mellitus with diabetic neuropathy, unspecified; D63.1 Anemia in chronic kidney disease; N25.0 Renal osteodystrophy; G89.29 Other chronic pain; Z20.822 Contact with and (suspected) exposure to COVID-19; Z91.158 Patient's noncompliance with renal dialysis for other reason; Z87.891 Personal history of nicotine dependence; Z79.4 Long term (current) use of insulin; Z79.899 Other long term (current) drug therapy
CPT/HCPCS: 36415; 71045; 71275; 80048; 80076; 81001; 82803; 82947; 83605; 83735; 83880; 84443; 84484; 85025; 85027; 85379; 86140; 87040; 87086; 87637; 90999; 93005; 99285; J1938; Q9967

== ENCOUNTER → 2025-07-09 12:26 | Outpatient (BNV) | payer MEDICARE, MEDICAID, SELFPAY | PROVIDERS: Admitting Provider Student in an Organized Health Care Education/Training Program; Emergency Provider Emergency Medicine; PCP Internal Medicine; Visit Provider Internal Medicine Cardiovascular Disease | DX: R94.31 Abnormal electrocardiogram [ECG] [EKG] (principal); R06.00 Dyspnea, unspecified | CPT/HCPCS: 93010 ==

== ENCOUNTER → 2025-07-09 12:27 | Outpatient (BNV) | payer MEDICARE, MEDICAID, SELFPAY | PROVIDERS: Emergency Provider Emergency Medicine; PCP Internal Medicine; Visit Provider Radiology Diagnostic Radiology | DX: I25.10 Atherosclerotic heart disease of native coronary artery without angina pectoris (principal); I51.7 Cardiomegaly; J81.1 Chronic pulmonary edema; J84.9 Interstitial pulmonary disease, unspecified | CPT/HCPCS: 71045; 71275 ==

== ENCOUNTER → 2025-07-09 16:39 | Outpatient (BNV) | payer MEDICARE, MEDICAID, SELFPAY | PROVIDERS: Admitting Provider Student in an Organized Health Care Education/Training Program; Emergency Provider Emergency Medicine; PCP Internal Medicine; Visit Provider Student in an Organized Health Care Education/Training Program | DX: I50.33 Acute on chronic diastolic (congestive) heart failure (principal); J96.01 Acute respiratory failure with hypoxia; N18.6 End stage renal disease; Z99.2 Dependence on renal dialysis; E11.22 Type 2 diabetes mellitus with diabetic chronic kidney disease; Z79.4 Long term (current) use of insulin; E66.01 Morbid (severe) obesity due to excess calories | CPT/HCPCS: 99232 ==

== ENCOUNTER 2025-07-16 01:17 | Inpatient (IN) | payer MEDICARE, MEDICAID, SELFPAY ==
--- OUTSIDE RECORDS SUMMARY | 2022-07-01 07:00 | XMS_ITS | Continuity of Care Document ---
Author Organization [facility] Address [address] [address] Phone Care Team Providers Care Bottle Dealer Name Role Phone Caleb URBINA, Fiona Unavailable Unavailable Advance Directives Directive Yes / No Effective Date File Name No Information Encounters Encounter Description Practice Location Reason(s) For Visit Diagnoses Date Provider [facility], [address], [id number], [place] tel:[phone] [facility] No Information 2021 Caleb Jaimes. [address] [place], [place], [id number], [place]. tel:[phone] Family History Family Member Type Diagnosis Age At Onset No Information Payers Payer name Insurance type Covered alliance party ID Authoriza tion(s) No Information Social History Type Description Quantity Date Captured Comments Sex Female Smoking Status No Information Chief Complaint And Reason For Visit No Information History Of Present Illness Encounter Date Complaint History Of Prese nt Illness No Information Instructions Date Instruction Additional Infor mation No Information Assessments Type Assessment Date No Information
--- OUTSIDE RECORDS SUMMARY | 2022-07-01 07:00 | XMS_ITS | Continuity of Care Document ---
Author Organization [facility] Address [address] [address] Phone Care Team Providers Care Realtime Court Reporter Name Role Phone Caleb URBINA, Fiona Unavailable Unavailable Advance Directives Directive Yes / No Effective Date File Name No Information Encounters Encounter Description Practice Location Reason(s) For Visit Diagnoses Date Provider [facility], [address], [id number], [place] tel:[phone] [facility] No Information 2021 Caleb Jaimes. [address] [place], [place], [id number], [place]. tel:[phone] Family History Family Member Type Diagnosis Age At Onset No Information Payers Payer name Insurance type Covered libertarian ID Authoriza tion(s) No Information Social History Type Description Quantity Date Captured Comments Sex Female Smoking Status No Information Chief Complaint And Reason For Visit No Information History Of Present Illness Encounter Date Complaint History Of Prese nt Illness No Information Instructions Date Instruction Additional Infor mation No Information Assessments Type Assessment Date No Information
--- OUTSIDE RECORDS SUMMARY | 2022-07-01 07:00 | XMS_ITS | Continuity of Care Document ---
Author Organization [facility] Address [address] [address] Phone Care Team Providers Care Spinal Surgeon Name Role Phone Caleb URBINA, Fiona Unavailable Unavailable Advance Directives Directive Yes / No Effective Date File Name No Information Encounters Encounter Description Practice Location Reason(s) For Visit Diagnoses Date Provider [facility], [address], [id number], [place] tel:[phone] [facility] No Information 2021 Caleb Jaimes. [address] [place], [place], [id number], [place]. tel:[phone] Family History Family Member Type Diagnosis Age [...]
[2025-07-16] VITALS (12 sets, daily range): BP systolic 137–184; BP diastolic 53–90; PULSE 56–65; RESP 16–24; TEMP 36.2–36.9; O2SAT 97–100; BMI 57.7; BMI 57.3; BMI 58.6
--- NOTE | ~2025-07-16 | XR_ITS ---
CLINICAL HISTORY: overload, ESRD 1 view chest x-ray Comparison: CR/SR - XR CHEST 1 VIEW - 07/09/25 13:45 EST Findings: Left basilar subsegmental atelectasis or infiltrate. Normal size heart. No acute fracture. IMPRESSION: 1. Linear left basilar subsegmental atelectasis or infiltrate This document has been electronically signed by: Leroy Foster MD, PHD on 07/16/2025 03:07:50
[2025-07-16 01:37] LABS: Glucose, Whole Blood 591 mg/dL (60-115)
--- NOTE | 2025-07-16 01:45 | ED.GENADULT ---
HPI - General Adult General Chief complaint: Dyspnea Stated complaint: Ran out of insulin 2 days ago Hyperglycemia Time Seen by Provider: 07/16/25 01:28 History of Present Illness ED Provider: samanta HPI narrative: [age] female with end-stage renal on dialysis, diabetes insulin-dependent, HFpEF discharged from our hospital July 11 per the discharge summary this was for shortness of breath interstitial lung edema cardiomegaly she received rescue dialysis for a missed session. The patient reports she missed dialysis on Wednesday for being significantly dyspneic she also has not had her insulin at home due to what she describes as her pharmacy not providing her the needles. She denies chest pain or fever no hemoptysis no abdominal pain or vomiting came in by EMS tonight. Point of care glucose 591 on arrival she reports polyuria. Graft in the left forearm without symptoms per her Related Data Home Medications ?Medication ?Instructions ?Recorded ?Confirmed nystatin 100,000 unit/gram topical 1 appl topical TID PRN Rash 07/11/22 07/16/25 cream insulin lispro 100 unit/mL See Protocol subcut TIDAC 07/09/25 07/16/25 subcutaneous solution (Humalog U-100 Insulin) pantoprazole 20 mg tablet,delayed 20 mg PO DAILY@0630 07/09/25 07/16/25 release triamcinolone acetonide 0.1 % 1 appl topical TID PRN Diabetic 07/09/25 07/16/25 topical ointment Psoriasis Previous Rx's ?Medication ?Instructions ?Recorded blood sugar diagnostic #200 ea 12/05/21 blood sugar diagnostic (Accu-Chek #300 ea 12/05/21 Berna Plus test strips) hospital bed #1 ea 07/06/22 pen needle, diabetic 32 gauge x #100 ea 07/07/22 insulin syringe-needle U-100 1 mL #100 ea 07/08/22 30 gauge x 1/2 (BD Insulin Syringe Ultra-Fine) acetaminophen 325 mg tablet 650 mg (2 x 325 mg) PO Q6H PRN 06/11/25 Pain (Scale Score 4-6) 30 days #3 tabs amlodipine 10 mg tablet 10 mg PO DAILY 30 days #30 tabs 06/11/25 docusate sodium 100 mg capsule 100 mg PO DAILY 30 days #30 caps 06/11/25 gabapentin 100 mg capsule 100 mg PO BID 30 days #60 caps 06/11/25 hydralazine 25 mg tablet 25 mg PO TID 30 days #30 tabs 06/11/25 insulin glargine 100 unit/mL (3 20 unit (0.2 mL) subcut BEDTIME 30 06/11/25 mL) subcutaneous pen (Lantus days #3 mL Solostar U-100 Insulin) ondansetron 4 mg disintegrating 4 mg translingual TIDAC PRN nausea 06/11/25 tablet 30 days #12 tabs oxybutynin chloride 15 mg 15 mg PO DAILY 30 days #30 tabs 06/11/25 tablet,extended release 24 hr ropinirole 0.25 mg tablet 0.25 mg PO BEDTIME 30 days #30 tabs 06/11/25 sennosides 8.6 mg tablet (senna) 17.2 mg (2 x 8.6 mg) PO BEDTIME 30 06/11/25 days #30 tabs metoprolol tartrate 25 mg tablet 12.5 mg (1/2 x 25 mg) PO BID #60 06/21/25 tabs Allergies Allergy/AdvReac Type Severity Reaction Status Date / Time metformin (METFORMIN) Allergy Severe HIVES Verified 07/16/25 01:41 heparin Allergy Intermediate Itching Verified 07/16/25 01:41 canagliflozin (From Invokana) Allergy Hives Verified 07/16/25 01:41 [facility] Past Medical History Medical History HTN (hypertension) HLD (hyperlipidemia) Frequent UTI Anemia Acute on chronic diastolic (congestive) heart failure Type 2 diabetes mellitus with obesity Clostridium difficile diarrhea Morbid obesity Detrusor dysfunction Bladder outlet obstruction Esophagitis CKD (chronic kidney disease) stage 4, GFR 15-29 ml/min Hypothyroidism IBS (irritable bowel syndrome) Surgical History History of tubal ligation Family History Family History Father Diabetes Mother Diabetes Hypertension Breast cancer Family/Other Breast cancer Uterine cancer Social History Social History Household Members: None Housing: Apartment Do you presently have visiting nurse or other home services: No Alcohol intake: never Comment: bedbound at baseline Patient Tobacco Use Status: Former Tobacco user Smoked in Last 30 Days: No e-Cigarette/Vaping Use: Never Used Second Hand Smoke Exposure: No Use of substances other than those prescribed or required for medical reasons: No Currently Displaying Signs/Symptoms of Drug Intoxication Withdrawal: No Advance Directives: Yes Advance Directives on File: Yes Advance Directives Date on File: 10/09/20 Do you have a plan to hurt others: No Plan Recently lost weight without trying: No Eating poorly because of decreased appetite: No Nutrition Risks: No Nutritional Risk Patient : No : No Poor oral hygiene: No service: No Current occupational status: disabled Cognitive needs: No Hearing needs: No Vision needs: Yes Physical Exam ED Exam Exam: EXAM: Gen: Alert, morbidly obese chronically ill-looking tachypneic and short of breath with 3-4 word sentences Head: Atraumatic Eyes: Anicteric, mild pallor ENT: Moist mucosa, no pallor. ? Neck: Supple. Skin: ?No observable rash or bruising on exposed or examined skin Respiratory: Tachypnea rate about 30. Decreased air entry examination and auscultation limited secondary to habitus Cardiovascular: Regular rate and rhythm. No murmurs or rub. Well perfused periphery, warm extremities. No pitting edema. Palpable thrill through graft in the left forearm well-perfused left arm Abdominal: No focal tenderness. Soft, no objective distension. No palpable masses or obvious organomegaly. ?No guarding, no rebound tenderness or other peritoneal findings. Vital signs: See flowsheet Vital Signs: Vital Signs - 24 hr 07/16/25 01:27 07/16/25 01:49 Temperature 98.4 F Pulse Rate 63 Respiratory Rate 24 H Blood Pressure 184/65 H 138/87 Pulse Oximetry 100 Oxygen Delivery Method Nasal Cannula BMI result Body Mass Index 57.7 Medications Administered Generic Name Dose Route Start Last Admin Trade Name Freq PRN Reason Stop Dose Admin Acetaminophen 650 mg 07/16/25 03:58 07/16/25 22:13 Acetaminophen 325 Mg Tablet PO 650 mg Q6H PRN Administration Pain, Mild 1-3,fever,headache Amlodipine Besylate 10 mg 07/16/25 09:00 07/17/25 08:33 Amlodipine Besylate 10 Mg Tablet PO 10 mg DAILY KENTRELL Administration Protocol Docusate Sodium 100 mg 07/16/25 09:00 07/17/25 08:34 Docusate Sodium 100 Mg Capsule PO 100 mg DAILY KENTRELL Administration Gabapentin 100 mg 07/16/25 09:00 07/17/25 08:33 Gabapentin 100 Mg Capsule PO 100 mg BID KENTRELL Administration Hydralazine HCl 25 mg 07/16/25 09:00 07/17/25 08:33 Hydralazine Hcl 25 Mg Tablet PO 25 mg TID KENTRELL Administration Protocol Insulin Glargine 10 unit 07/16/25 21:00 07/16/25 22:02 Insulin Glargine,Hum.Rec.Anlog 100 Unit/Ml 10 Ml Vial SUBCUT 10 unit BEDTIME KENTRELL Administration Insulin Glargine 10 unit 07/16/25 05:55 07/17/25 08:32 Insulin Glargine,Hum.Rec.Anlog 100 Unit/Ml 10 Ml Vial SUBCUT 10 unit DAILY KENTRELL Administration Insulin Human Lispro 0 unit 07/16/25 07:30 07/17/25 11:27 Insulin Lispro 100 Unit/Ml 3 Ml Vial SUBCUT 4 unit QIDACHS [facility] Administration Protocol Metoprolol Tartrate 12.5 mg 07/16/25 09:00 07/17/25 08:33 Metoprolol Tartrate 12.5 Mg Halftab PO 12.5 mg BID KENTRELL Administration Protocol Omeprazole 20 mg 07/17/25 06:30 07/17/25 06:34 Omeprazole 20 Mg Capsule.Dr PO 20 mg DAILY@0630 KENTRELL Administration Oxybutynin Chloride 15 mg 07/16/25 09:00 07/17/25 08:33 Oxybutynin Chloride Er 5 Mg Tab.Er.24 PO 15 mg DAILY KENTRELL Administration Ropinirole HCl 0.25 mg 07/16/25 21:00 07/16/25 22:00 Ropinirole Hcl 0.25 Mg Tablet PO 0.25 mg BEDTIME KENTRELL Administration Senna 17.2 mg 07/16/25 21:00 07/16/25 22:00 Sennosides 8.6 Mg Tablet PO 17.2 mg BEDTIME KENTRELL Administration Sodium Chloride 3 ml 07/16/25 08:00 07/17/25 08:34 0.9 % Sodium Chloride Flush 3 Ml Syringe IVFLUSH 3 ml QSHIFT KENTRELL Administration Discontinued Medications Generic Name Dose Route Start Last Admin Trade Name Freq PRN Reason Stop Dose Admin Furosemide 40 mg 07/16/25 05:49 07/16/25 06:14 Furosemide 40 Mg/4 Ml Vial IVPUSH 07/16/25 05:50 40 mg ONCE ONE Administration Protocol Insulin Human Regular 12 unit 07/16/25 03:41 07/16/25 04:00 Insulin Regular, Human 100 Unit/Ml 10 Ml Vial IVPUSH 07/16/25 03:42 12 unit ONCE ONE Administration Medical Decision Making Medical Decision Making MDM Narrative: Medical Decision Making: [age] female with multiple comorbid medical conditions missed dialysis and unable to self administer insulin at home due to not having needles now profoundly hyperglycemic. She looks tachypneic and ill may need emergent dialysis get x-ray labs check for DKA or diabetic emergency. Stat EKG. no immediate actionable lab findings. The patient is at baseline nasal cannula but looks tachypneic we will get x-ray check for pneumonia pneumothorax pleural effusion Preliminary Favored Differential Diagnosis: missed dialysis, pleural effusio, pneumonia, pneumothorax, COPD exacerbation, obesity hypoventilation syndrome with decompensation, hyperkalemia, metabolic derangement among additional considered etiologies Testing Interpreted Independently: low voltage ECG with sinus rhythm rate 61 no acute ischemic changes x-ray without obvious focal infiltrate suggesting pneumonia Radiology or Lab testing Results Reviewed: ?See below for details Consults: ?See below for details Independent Historians/External Chart Reviews: ?See below for details Social Determinants of Health Impacting MDM/Planning: ?See below for details Lab Data 07/17/25 07:56 07/17/25 07:56 Labs: Lab Results 07/16/25 07/16/25 07/16/25 Range/Units 01:31 02:32 03:11 WBC 9.8 (4.8-10.8) X10*3/uL RBC 2.84 L (4.20-5.50) X10*6/uL Hgb 9.1 L (12.0-16.0) g/dl Hct 28.1 L (37.0-47.0) % MCV 98.9 H (80.0-98.0) fL MCH 32.0 (27.0-33.0) pg MCHC 32.4 (31.0-35.0) g/dl RDW 14.1 (11.0-16.0) % Plt Count 158 L (160-400) X10*3/uL MPV 10.5 (9.4-12.3) fL Immature Gran % (Auto) 0.4 (0.0-0.4) % Neut % (Auto) 79.5 H (45-73) % Lymph % (Auto) 9.2 L (20-40) % Andrew % (Auto) 7.4 (2-11) % Eos % (Auto) 3.0 (0-4) % Baso % (Auto) 0.5 (0-2) % Lymph # (Auto) 0.9 L (1.2-4.9) X10*3/uL Andrew # (Auto) 0.7 (0.1-1.2) X10*3/uL Eos # (Auto) 0.3 (0.0-0.4) X10*3/uL Baso # (Auto) 0.1 (0.0-0.2) X10*3/uL Abs Immat Gran (auto) 0.04 H (0.00-0.03) X10*3/uL Absolute Neuts (auto) 7.8 (2.0-8.3) x10*3/uL Absolute Nucleated RBC 0.000 (0.0-0.012) X10*3/uL Nucleated RBC % (auto) 0.0 (0.0-0.2) /100WBC VBG pH (7.32-7.43) VBG pCO2 mmHg VBG pO2 mmHg VBG HCO3 (22-26) mmol/L VBG O2 Saturation % VBG Base Excess mmol/L Sodium 130 L (135-145) mmol/L Potassium 5.0 (3.3-5.1) mmol/L Chloride 99 (96-108) mmol/L Carbon Dioxide 17 L (22-29) mmol/L Anion Gap 19 (12-20) BUN 67 H (9-16) mg/dL Creatinine 4.22 H* (0.5-1.4) mg/dL Estim Creat Clear Calc 20.5 Estimated GFR 10 POC Glucose 591 H* (60-115) mg/dL Random Glucose 623 H* (60-115) mg/dL Lactic Acid 2.3 H* (0.5-2.0) mmol/L Calcium 8.0 L (8.4-10.2) mg/dL Total Bilirubin 0.4 (0.0-1.0) mg/dL AST 20 (5-31) U/L ALT 11 (0-31) U/L Alkaline Phosphatase 141 H (39-117) U/L NT-Pro-B Natriuret Pep 6773.1 H (<300) pg/mL Total Protein 6.5 (6.5-8.0) g/dL Albumin 3.3 L (3.5-5.0) g/dL Beta-Hydroxybutyrate 0.16 (0.02-0.27) mmol/L Procalcitonin 0.15 ng/mL 07/16/25 Range/Units 03:17 WBC (4.8-10.8) X10*3/uL RBC (4.20-5.50) X10*6/uL Hgb (12.0-16.0) g/dl Hct (37.0-47.0) % MCV (80.0-98.0) fL MCH (27.0-33.0) pg MCHC (31.0-35.0) g/dl RDW (11.0-16.0) % Plt Count (160-400) X10*3/uL MPV (9.4-12.3) fL Immature Gran % (Auto) (0.0-0.4) % Neut % (Auto) (45-73) % Lymph % (Auto) (20-40) % Andrew % (Auto) (2-11) % Eos % (Auto) (0-4) % Baso % (Auto) (0-2) % Lymph # (Auto) (1.2-4.9) X10*3/uL Andrew # (Auto) (0.1-1.2) X10*3/uL Eos # (Auto) (0.0-0.4) X10*3/uL Baso # (Auto) (0.0-0.2) X10*3/uL Abs Immat Gran (auto) (0.00-0.03) X10*3/uL Absolute Neuts (auto) (2.0-8.3) x10*3/uL Absolute Nucleated RBC (0.0-0.012) X10*3/uL Nucleated RBC % (auto) (0.0-0.2) /100WBC VBG pH 7.45 H (7.32-7.43) VBG pCO2 30 mmHg VBG pO2 164 mmHg VBG HCO3 21 L (22-26) mmol/L VBG O2 Saturation 100.0 % VBG Base Excess -1.7 mmol/L Sodium (135-145) mmol/L Potassium (3.3-5.1) mmol/L Chloride (96-108) mmol/L Carbon Dioxide (22-29) mmol/L Anion Gap (12-20) BUN (9-16) mg/dL Creatinine (0.5-1.4) mg/dL Estim Creat Clear Calc Estimated GFR POC Glucose (60-115) mg/dL Random Glucose (60-115) mg/dL Lactic Acid (0.5-2.0) mmol/L Calcium (8.4-10.2) mg/dL Total Bilirubin (0.0-1.0) mg/dL AST (5-31) U/L ALT (0-31) U/L Alkaline Phosphatase (39-117) U/L NT-Pro-B Natriuret Pep (<300) pg/mL Total Protein (6.5-8.0) g/dL Albumin (3.5-5.0) g/dL Beta-Hydroxybutyrate (0.02-0.27) mmol/L Procalcitonin ng/mL Discharge Plan Discharge Clinical Impression: Acute respiratory distress Patient Disposition: Admitted As Inpatient Interventions: Admission Worksheet (ED) Last Done: 07/16/25 07:30 Discharge Date/Time: 07/16/25 08:09
--- NOTE | 2025-07-16 01:47 | ECG_ITS ---
Test Reason : DYSPNEA Blood Pressure : */* mmHG Vent. Rate : 61 BPM Atrial Rate : 178 BPM P-R Int : * ms QRS Dur : 98 ms QT Int : 470 ms P-R-T Axes : 77 -40 30 degrees QTcB Int : 473 ms Artifact in tracing Normal sinus rhythm Left axis deviation Abnormal ECG When compared with ECG of 09-Jul-2025 12:41, No significant changes seen Referred By: Richard Contreras Electronically Signed By: DIXIE GAITAN
--- OUTSIDE RECORDS SUMMARY | 2025-07-16 02:55 | XMS_ITS | Clinical Summary ---
Author Organization [facility] Address [address] [facility] [address] [place] [address] Phone Care Team Providers Care Marketing Communications Associate Name Role Phone Terry Ochoa MD Primary Care Provider [phone] Allergies Active Allergy Reactions Criticality Noted Date [...] Only [facility] [address] [place] [address] Alan Mccarthy MD 07/04/2025 Treatment [facility] [address] [place] [address] Benita Garrison FNP-C End stage renal disease; Dependence on renal dialysis 07/02/2025 Orders Only [facility] [address] [address] Alan Mccarthy MD 06/20/2025 Orders Only [facility] [address] [address] Alan Mccarthy MD 06/20/2025 Treatment [facility] [address] [place] [address] Benita Garrison FNP-C End stage renal disease; Dependence on renal dialysis 06/08/2025 Orders Only [facility] [address] [address] Alan Mccarthy MD 06/04/2025 Orders Only [facility] [address] [place] [address] Provider, Albert Ordering 05/11/2025 Orders Only [facility] [address] [address] Alan Mccarthy MD 05/11/2025 Treatment [facility] [address] [place] [address] Benita Garrison FNP-Jagdeep End stage renal disease; [...] Years Used Date Smoking Tobacco: Former Cigarettes 0 Q uit: 08/30/2001 Smokeless Tobacco: Never Tobacco [...] Urea Reduction 71 65 - 80 % [facility] 07/04/2025 07/05/2025 3:1 1 PM EST Narrative Resulting Agency Comment Specimen source: Plasma Alan Mccarthy MD LAB BLOOD ORDERABLES Final Re sult Performing Organization Address [facility] Co de Phone Number [employer] See order comments or contact performing lab Unknown, [place] * POST CHEMISTRY (07/04/2025) Only the most recent of3 resultswithin the time period is included. BUN Post Dialysis 17 6 - 19 mg/dL [facility] 07/04/2025 07/05/2025 3:1 1 PM EST Narrative [facility] - 07/05/2025 Unless otherwise specified, test(s) performed at: [facility], [address] [place] [address] WELD LAY OUT WORKER: Michael Fields M.D. For any questions, please call customer service at FREQUENCY:MONTHLY Resulting Agency Comment Specimen source: Plasma Alan Mccarthy MD LAB BLOOD ORDERABLES Final Re sult [employer] See order comments or contact performing lab Unknown, [place] * IMMUNO CHEMISTRY (07/04/2025) Only the most recent of4 resultswithin the time period is included. Hep B Surface Ag Negative Negative [facility] 07/04/2025 07/05/2025 9:4 4 AM EST Narrative Resulting Agency Comment Specimen source: Serum Alan Mccarthy MD LAB BLOOD ORDERABLES Final Re sult [facility] See order comments or contact performing lab Unknown, [place] * (ABNORMAL) HEMATOLOGY (07/04/2025) Only the most recent of5 resultswithin the time period is included. Pathologist [facility] Hemoglobin 8.6(L) 12.0 - 16.0 g/dL [facility] Hemoglobin x 3 25.8(L) 36.0 - 48.0 % [facility] 07/04/2025 07/05/2025 9:5 2 AM EST Narrative [facility] - 07/05/2025 Unless otherwise specified, test(s) performed at: [facility], [address] [place] [address] WELD LAY OUT WORKER: Michael Fields M.D. For any questions, please call customer service at FREQUENCY:MONTHLY Resulting Agency Comment Specimen source: Blood Alan Mccarthy MD LAB BLOOD ORDERABLES Final Re sult Performing Organization Address [facility] Co de Phone Number [facility] See order comments or contact performing [...] 07/05/2025 Unless otherwise specified, test(s) performed at: [facility], [address] [place] [address] WELD LAY OUT WORKER: Michael Fields M.D. For any questions, please call customer service at FREQUENCY:MONTHLY Resulting Agency Comment Specimen source: Serum Alan Mccarthy MD LAB BLOOD ORDERABLES Final Re sult [facility] See order comments or contact performing lab Unknown, [place] * [facility] Lab Results (07/04/2025) Only the most recent of3 resultswithin the time period is included. WSTDKT/V 1.6 [facility] PCR 81.90 [facility] nPCR_HD 1.11 [facility] eKt/V ([place]) 1.29 [facility] eNPCR 1.01 [facility] eKdrt/V 1.39 [facility] spKt/V (Daugirdas II) 1.47 [facility] eKt/V Gotch 1.39 [facility] spKt/V Got 1.58 [facility] 07/04/2025 07/04/2025 [facility] Ordering Provider LAB BLOOD ORDERABLES Final Result Performing Organization Address [facility]/ZIP Co de Phone Number [facility] Center Contact Performing lab Unknown, [place] * (ABNORMAL) SPECIAL CHEMISTRY (05/30/2025) Only the most recent of2 resultswithin the time period is included. Pathologist [facility] Vitamin D, 25-OH, Total 10.2(L) 30.0 - 100.0 ng/mL [facility] Comment: Please Note: Effective June 28, 2023, the methodology for this test has changed to the [facility]. 05/30/2025 05/31/2025 10: 28 AM EDT Narrative [facility] - 06/01/2025 Unless otherwise specified, test(s) performed at: [facility], [address] [place] [address] WELD LAY OUT WORKER: Michael Fields M.D. For any questions, please call customer service at FREQUENCY:MONTHLY Resulting Agency Comment Specimen source: Serum Alan cMcarthy MD LAB BLOOD BANK TEST ORDERABLE S Final Result Performing Organization Address [facility] Co de Phone Number [facility] See order comments or contact performing lab Unknown, [place] * TRACE ELEMENTS (05/30/2025) Only the most recent of2 resultswithin the time period is included. [facility] Aluminum <5 0 - 10 mcg/L [facility] Comment: This test was developed and its performance characteristics determined by [facility]. It has not been cleared or approved by the FDA. The laboratory is regulated under CLIA as qualified to perform high complexity testing. This test is used for clinical purposes. It should not be regarded as investigational or for research. 05/30/2025 05/31/2025 9:1 1 AM EDT Narrative [facility] - 05/31/2025 Unless otherwise specified, test(s) performed at: [facility], [address] [place] [id number] WELD LAY OUT WORKER: Michael Fields M.D. For any questions, please call customer service at FREQUENCY:MONTHLY Resulting Agency Comment Specimen source: Serum us Alan Mccarthy MD LAB BLOOD ORDERABLES Final Re sult [facility] See order comments or contact performing lab Unknown, [place] * (ABNORMAL) Hemoglobin A1c (02/04/2022 11:45 AM EDT) Hemoglobin A1C 10.2(H) (4.0-5.6) % [facility] Comment: MONITORING: In known diabetic patients, hemoglobin A1c targets should be discussed with health care provider. DIAGNOSTIC USE: The [place] [employer] (ADA) and the World Health [...] Supplement 1 Testing performed or reported by [facility], a Service of [facility], [address] [place] [address] Jaquelin Grayson MD, Wiring Mechanic [facility]# [id number] 02/04/2022 11:4 5 AM EDT 02/04/2022 6:50 PM EDT Tony Dejesus MD LAB BLOOD ORDERABLES Final Re sult [facility] from Last 3 Months or Most Recently Relevant to Health Maintenance Insurance Medicaid [place] Medicare [place] [address] Medicaid [place] Care Teams Marketing Communications Associate Relationship Specialty Start Date End Date Terry Ochoa MD [id number] [place], [place] PCP - General Internal Medicine 07/21/23
--- OUTSIDE RECORDS SUMMARY | 2025-07-16 02:55 | XMS_ITS | Clinical Summary ---
Author Organization [facility] Address [address] [facility] [address] [place] [phone] Phone Care Team Providers Care Pharmacy Operations Specialist Name Role Phone Alexi Lynne MD Primary Care Provider [phone] Allergies No known active allergies Medications hydrALAZINE [...] 3 (three) times a day with meals. Active neomycin-bacitraci n zinc-polymyxin B (TRIPLE ANTIBIOTIC) [...] PM EDT): During her prolonged stay at [place] she required 2 L of oxygen. At [...] PM EDT): During her prolonged stay at [place] she required 2 L of oxygen. At [...] PM EDT): During her prolonged stay at [place] she required 2 L of oxygen. At [...] PM EDT): During her prolonged stay at [place] she required 2 L of oxygen. At [...] PM EDT): During her prolonged stay at [place] she required 2 L of oxygen. At [...] PM EDT): During her prolonged stay at [place] she required 2 L of oxygen. At [...] PM EDT): During her prolonged stay at [place] she required 2 L of oxygen. At [...] AM EDT): During her prolonged stay at [place] she required 2 L of oxygen. At [...] PM EDT): During her prolonged stay at [place] she required 2 L of oxygen. Since [...] PM EDT): During her prolonged stay at [place] she required 2 L of oxygen. Since [...] AM EDT): During her prolonged stay at [place] she required 2 L of oxygen. Since [...] AM EDT): During her prolonged stay at [place] she required 2 L of oxygen. Since [...] PM EDT): During her prolonged stay at [place] she required 2 L of oxygen. Since [...] PM EDT): During her prolonged stay at [place] she required 2 L of oxygen. Since [...] PM EDT): During her prolonged stay at [place] she has required 2 L of oxygen. [...] during this hospitalization. -- Requested records from [facility] and Dr Yuen of [place]; re-requested records on 04/19 Assessment & Plan (04/21/2025 4:16 PM EDT): Apparently was started on a 30-day course of treatment with ciprofloxacin in mid February. No findings to suggest active infection at this time. No antibiotics prescribed during this hospitalization. -- Requested records from [facility] and Dr Yuen of [place]; re-requested records on 04/19 Assessment & Plan (04/20/2025 6:23 PM EDT): Apparently was started on a 30-day course of treatment with ciprofloxacin in mid February. No findings to suggest active infection at this time. No antibiotics prescribed during this hospitalization. -- Requested records from [facility] and Dr Yuen of [place]; re-requested records on 04/19 Assessment & Plan (04/19/2025 11:51 AM EDT): Apparently was started on a 30-day course of treatment with ciprofloxacin in mid February. No findings to suggest active infection at this time. No antibiotics prescribed during this hospitalization. -- Requested records from [facility] and Dr Yuen of [place]; re-requested records on 04/19 Assessment & Plan (04/18/2025 5:59 PM EDT): Apparently was started on a 30-day course of treatment with ciprofloxacin in february. No findings to suggest active infection at this time. No antibiotics prescribed during this hospitalization. -- Requested records from [facility] -- Continue to hold on further antibiotics. Assessment & Plan (04/17/2025 2:27 PM EDT): Apparently was started on a 30-day course of treatment with ciprofloxacin in mid February. No findings to suggest active infection at this time. No antibiotics prescribed during this hospitalization. -- Requested records from [facility] -- Continue to hold on further antibiotics. Assessment & Plan (04/16/2025 8:33 AM EDT): Apparently was started on a 30-day course of treatment with ciprofloxacin in mid February. No findings to suggest active infection at this time. No antibiotics prescribed during this hospitalization. -- Requested records from [facility] -- Continue to hold on further antibiotics. Assessment & Plan (04/15/2025 11:22 AM EDT): Apparently was started on a 30-day course of treatment with ciprofloxacin in mid February. No findings to suggest active infection at this time. No antibiotics prescribed during this hospitalization. -- Requested records from [facility] -- Continue to hold on further antibiotics. Assessment & Plan (04/14/2025 6:39 PM EDT): Apparently was started on a 30-day course of treatment with ciprofloxacin in mid February. No findings to suggest active infection at this time. No antibiotics prescribed during this hospitalization. -- Requested records from [facility] -- Continue to hold on further antibiotics. Assessment & Plan (04/13/2025 4:02 PM EDT): Apparently was started on a 30-day course of treatment with ciprofloxacin in mid February. No findings to suggest active infection at this time. No antibiotics prescribed during this hospitalization. -- Requested records from Dr. Paul Lebron in [place] -- Continue to hold on further antibiotics. Assessment & Plan (04/12/2025 3:56 PM EDT): Apparently was started on a 30-day course of treatment with ciprofloxacin in mid February. No findings to suggest active infection at this time. No antibiotics prescribed during this hospitalization. -- Requested records from Dr. Paul Lebron in [place] -- Continue to hold on further antibiotics. Assessment & Plan (04/11/2025 3:37 PM EDT): Apparently was started on a 30-day course of treatment with ciprofloxacin in mid February. No findings to suggest active infection at this time. No antibiotics prescribed during this hospitalization. -- Requested records from Dr. Paul Lebron in [place] -- Continue to hold on further antibiotics. Assessment & Plan (04/10/2025 4:52 PM EDT): Apparently was started on a 30-day course of treatment with ciprofloxacin in mid February. No findings to suggest active infection at this time. -- Requested records from Dr. Paul Lebron in [place] -- Hold on additional antibiotics for now Assessment & Plan (04/09/2025 1:32 PM EDT): Apparently was started on a 30-day course of treatment with ciprofloxacin in mid February. No findings to suggest active infection at this time. -- Requestin records from Dr. Paul Lebron in [place] -- Hold on additional antibiotics for now Assessment & Plan (04/07/2025 4:33 PM EDT): Apparently was started on a 30-day course of treatment with ciprofloxacin in mid February. No findings to suggest active infection at this time. -- Will try to obtain records from Dr. Paul Lebron in [place] on Wednesday -- Hold on additional antibiotics for now ESRD (end stage renal disease) 04/05/2025 Assessment & Plan (04/27/2025 9:15 AM EDT): - Patient has been cleared at [facility] unit to start Wednesday at 6:30 AM she can be discharged as long as she has transportation available. Details of outpatient administrative personal assistant requirements being addressed. -For now we will continue with inpatient HD Wednesday regimen. Tolerating dialysis treatment well, potentially will be DC planning for outpt HD at [facility] [place] next Wednesday. - Continue fluid restriction 1.2 L daily max. Fortunately reaching dry weight. - hepatitis B non-reactive. Will aim for repeat vaccination with Heplisav as outpatient - hgb stable - AVG working well Assessment & Plan (04/26/2025 8:12 AM EDT): - Patient has been cleared at [facility] unit to start Wednesday at 6:30 AM she can be discharged as long as she has transportation available. Details of outpatient administrative personal assistant requirements being addressed. -For now we will continue with inpatient HD Wednesday regimen. Tolerating dialysis treatment well.Next due tomorrow, potentially will be DC planning for outpt HD at [facility] [place] next Wednesday. - Continue fluid restriction 1.2 L daily max. Fortunately reaching dry weight. - hepatitis B non-reactive. Will aim for repeat vaccination with Heplisav as outpatient - hgb stable - AVG working well Assessment & Plan (04/25/2025 9:51 AM EDT): - Patient has been cleared at [facility] unit to start Wednesday at [...] - AVG working well -Details of outpatient administrative personal assistant requirements being addressed. Assessment & Plan (04/24/2025 9:54 AM EDT): - Patient has been cleared at [facility] to start tomorrow at 6:30 [...] EDT): -Unfortunately despite extensive search locally at [facility] and [facility] no local dialysis center with bariatric bed to accommodate her dialysis. Our team have exhausted all search in the local dialysis centers. Highly suggest to start statewide search and [id number] for other facilities if she needs rehab [...] her dialysis tenure. -If discharged back to [place] outpatient dialysis unit will need transportation. Assessment [...] center across the state. -If discharged to [place] outpatient dialysis unit will need transportation. Assessment [...] for out of area dialysis rehab centers [facility] -Consider PT OT while inpatient assess risk of fall and ability to move to a chair. -Other options check with previous outpatient unit in [place] if still available chair and able to [...] for out of area dialysis rehab centers [facility] -Consider PT OT while inpatient assess risk of fall and ability to move to a chair. -Other options check with previous outpatient unit in [place] if still available chair and able to [...] dialysis unit placement awaiting clearance through [facility] or [facility] but she has been declined by both so far due to concerns about her ability to transfer and sit in dialysis. There are no beds available throughout the area for dialysis clinics. -Our team continues to search for local unit, I would kindly ask case management to start looking for out of area dialysis rehab centers [facility] -Consider PT OT while inpatient assess [...] potassium binding resin. - Will inquire with [facility] hopefully able to be discharged to [...] access hemodialysis. She had been discharged from [facility] her dialysis center was in [place] but she lives in [place] and she did not have transportation. She was volume overloaded on presentation, requiring HD. Nephrology was consulted. Patient is requiring a bariatric BED for hemodialysis. 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 Patient has a bariatric dialysis bed at [place] dialysis unit. Patient remained in hospital for dialysis on 04/25. - magnetic tape winder unavailable until Friday 04/27, will remain here [...] access hemodialysis. She had been discharged from [facility] her dialysis center was in [place] but she lives in [place] and she did not have transportation. She was volume overloaded on presentation, requiring HD. Nephrology was consulted. Patient is requiring a bariatric BED for hemodialysis. 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 Patient has a bariatric dialysis bed at [place] dialysis unit. Patient remained in hospital for dialysis on 04/25. - magnetic tape winder unavailable until Friday 04/27, will remain here [...] from SNF her dialysis center was in [place] but she lives in [place] and she did not have transportation. She [...] 04/19. Attempts were made for dialysis in [place] however patient was declined on 04/22 Last HD was 04/23 with removal of 5 L. Stable hemodynamically. Spoke with Dr. Esteban and patient has a bariatric dialysis bed and [place] dialysis. Initial plans were for discharge today with outpatient dialysis on 04/25 however dialysis time was at 6:30 in the morning and patient did not have [employer] coverage to be discharged home tonight. Patient remained in hospital for dialysis on 04/25. - Goal is for discharge home on 04/25 once magnetic tape winder can be established to be in the [...] access hemodialysis. She had been discharged from [facility] her dialysis center was in [place] but she lives in [place] and she did not have transportation. She [...] 04/19. Attempts were made for dialysis in [place] however patient was declined on 04/22 04/23 Status post HD today with removal of 5 L. Stable hemodynamically. -discussed with patient in multidisciplinary rounds. Aviation Program Manager Dr. Esteban has secured a bariatric chair for patient in [place]. - Anticipate chair will be ready in 24 to 48 hours. -Continue torsemide - HD Wednesday. - Continue 1 L fluid restriction Assessment & Plan (04/22/2025 4:03 PM EDT): Patient history of end-stage renal disease on dialysis Wednesday and Wednesday presented for fluid overload due to inability to access hemodialysis. She had been discharged from [facility] her dialysis center was in [place] but she lives in [place] and she did not have transportation. She [...] no bariatric HD chair available. Declined by [facility]. -Continue torsemide - HD Wednesday. - Continue 1 L fluid restriction -Case management/social work and hair specialist continue to search for bariatric chair for outpatient dialysis. Assessment & Plan (04/21/2025 4:16 PM EDT): Patient history of end-stage renal disease on dialysis Wednesday and Wednesday presented for fluid overload due to inability to access hemodialysis. She had been discharged from [facility] her dialysis center was in [place] but she lives in [place] and she did not have transportation. She [...] no bariatric HD chair available. Declined by [facility]. -Continue torsemide - HD Wednesday. - Continue 1 L fluid restriction -Case management/social work and hair specialist continue to search for bariatric chair for outpatient dialysis. Assessment & Plan (04/20/2025 6:23 PM EDT): Patient history of end-stage renal disease on dialysis Wednesday and Wednesday presented for fluid overload due to inability to access hemodialysis. She had been discharged from [facility] her dialysis center was in [place] but she lives in [place] and she did not have transportation. She [...] access hemodialysis. She had been discharged from [facility] her dialysis center was in [place] but she lives in [place] and she did not have transportation. She [...] the ED. She had been discharged from [facility] her dialysis center was in [place] but she lives in [place] and she did not have transportation. Patient [...] the ED. She had been discharged from [facility] her dialysis center was in [place] but she lives in [place] and she did not have transportation. Patient [...] the ED. She had been discharged from [facility] her dialysis center was in [place] but she lives in [place] and she did not have transportation. Patient [...] the ED. She had been discharged from [facility] her dialysis center was in [place] but she lives in [place] and she did not have transportation. Patient [...] the ED. She had been discharged from [facility] her dialysis center was in [place] but she lives in [place] and she did not have transportation. Patient [...] the ED. She had been discharged from [facility] her dialysis center was in [place] but she lives in [place] and she did not have transportation. -Received [...] bariatric outpatient chair for dialysis. Discussing with [facility] to see if they have a [...] from SNF her dialysis center was in [place] but she lives in [place] and she did not have transportation. -Received [...] the ED. She had been discharged from [facility] her dialysis center was in [place] but she lives in [place] and she did not have transportation. --Spoke with nephrology regarding plans for outpatient hemodialysis. It sounds like patient was requiring a bariatric chair for treatments a large chair , will need ambulance transportation. -- Received dialysis 04/09 with removal of 4.8 L and last Wednesday, - anticipate M-W- schedule for time being 04/11-patient remained stable [...] the ED. She had been discharged from [facility] her dialysis center was in [place] but she lives in [place] and she did not have transportation. --Spoke [...] the ED. She had been discharged from [facility] her dialysis center was in [place] but she lives in [place] and she did not have transportation. --Spoke with nephrology regarding plans for outpatient hemodialysis. It sounds like patient was requiring a bariatric chair for treatments a large chair , will need ambulance transportation. -- Received dialysis today and last Wednesday, anticipate -- schedule for time being --1 L fluid [...] the ED. She had been discharged from [facility] her dialysis center was in [place] but she lives in [place] and she did not have transportation Case [...] ED. Evidently when she was discharged from [facility] her dialysis center was in [place] but she lives in [place] and she did not have transportation Case [...] 04/06 Evidently when she was discharged from [facility] her dialysis center was in [place] but she lives in [place] and she did not have transportation Nephrology [...] 15 units daily Hemoglobin A1c 7.0 - 8/ plan to increase insulin however her blood [...] and a low-dose insulin sliding scale with [id number] testing. - Obtain hemoglobin A1c in the [...] Patient states that since her admission to [facility] over the last 10 months she [...] Patient states that since her admission to [facility] over the last 10 months she [...] Patient states that since her admission to [facility] over the last 10 months she [...] obtain records from Dr. Paul Lebron in [place]. Assessment & Plan (04/09/2025 1:32 PM EDT): Patient states history of recurrent UTI currently on ciprofloxacin for 30 days. Patient asymptomatic. No concerns for infection presently - At presentation ciprofloxacin held because of risk versus benefit concerns agree that there may be greater risk than benefit of continuing ciprofloxacin at this point --Will try to obtain records from Dr. Paul Lebron in [place] on Wednesday Assessment & Plan (04/08/2025 3:43 [...] obtain records from Dr. Paul Lebron in [place] on Wednesday Assessment & Plan (04/07/2025 2:46 [...] 9:15 AM EDT Emergency [facility] [address] [place] [address] Gumaro Hernandez DO Daul, Adrian D, MD Discharge Disposition: Home or Self Care 04/17/2025 Episode Documentatio n Update [facility] [address] [place] [id number] Salma Reyes 04/05/2025 3:05 PM EDT - 04/27/2025 3:17 PM EDT Hospital Encounter [facility] [address] [place] [address] Joseph Green MD Kielbasa, Shasta A, MD [...] AND DIFFERENTIAL Routine 04/15/2025 6:01 AM EDT HEMOGLOBIN A1C Routine 04/06/2025 6:33 [...] clinician's provided indication for this examination in [facility]: Dyspnea (Shortness of Breath) COMPARISON: XR CHEST PORTABLE FINDINGS: Devices/Tubes/Lines: None. Lungs: No focal consolidation or pulmonary edema. Pleura: No pleural effusion or pneumothorax. Heart/Mediastinum: Stable cardiac silhouette enlargement. Bones/Soft Tissues: Degenerative changes of the shoulders and spine. No acute osseous abnormality. Procedure Note Krystal Encinas MD, PhD - 06/06/2025 XR CHEST PORTABLE Referring clinician's provided indication for this examination in [facility]:Dyspnea (Shortness of Breath) COMPARISON: XR CHEST PORTABLE [...] ALKALINE PHOSPHATASE 125(H) 39 - 117 U/L [facility] TOTAL BILIRUBIN 0.4 0.0 - 1.2 mg/dL [facility] DIRECT BILIRUBIN 0.2 0.0 - 0.2 mg/dL [facility] Bilirubin (Indirect) 0.2 0 - 1.5 mg/dL [facility] AST 14 0 - 37 U/L [facility] ALT 10 0 - 40 U/L [facility] TOTAL PROTEIN 6.4(L) 6.5 - 8.0 g/dL [facility] ALBUMIN 3.6(L) 3.9 - 4.8 g/dL [facility] GLOBULIN 2.8 1 - 4.8 g/dL [facility] A/G Ratio 1.29 1.00 - 4.80 RATIO [facility] Blood 06/05/2025 10:3 0 PM EDT 06/05/2025 10:35 PM EDT us Gumaro Hernandez DO LAB BLOOD BKR ORDERABLES Alyssa medina Result [facility] [address] [place] [address] * (ABNORMAL) CBC and differential (06/05/2025 10:30 PM EDT) Only the most recent of3 resultswithin the time period is included. WBC 9.35 4.00 - 11.00 K/uL [facility] RBC 2.64(L) 4.00 - 5.20 M/uL [facility] HGB 8.6(L) 12.0 - 16.0 g/dL [facility] HCT 25.9(L) 36.0 - 46.0 % [facility] PLT 190 150 - 450 K/uL [facility] MCV 98.1 80.0 - 100.0 fL [facility] MCH 32.6(H) 27.0 - 31.0 pg [facility] MCHC 33.2 32.0 - 36.0 g/dL [facility] RDW 13.2 11.5 - 14.5 % [facility] MPV 9.8 8.4 - 12.0 fL [facility] NRBC 0.00 0.00 /100 WBCs [facility] ABSOLUTE NRBC 0.00 0.00 K/uL [facility] DIFF METHOD Auto [facility] NEUTS 72.8 48.0 - 76.0 % [facility] LYMPHS 14.8(L) 18.0 - 41.0 % [facility] MONOS 8.7 4.0 - 11.0 % [facility] EOS 2.7 0.0 - 5.0 % [facility] BASOS 0.6 0.0 - 1.5 % [facility] Granulocytes, immature (%) 0.4 0.0 - 0.9 % [facility] ABSOLUTE NEUTS 6.81 1.92 - 7.60 K/uL [facility] ABSOLUTE LYMPHS 1.38 0.72 - 4.10 K/uL [facility] ABSOLUTE MONOS 0.81 0.16 - 1.10 K/uL [facility] ABSOLUTE EOS 0.25 0.00 - 0.50 K/uL [facility] ABSOLUTE BASOS 0.06 0.00 - 0.15 K/uL [facility] Granulocytes, immature 0.04 0.00 - 0.09 K/uL [facility] Blood 06/05/2025 10:3 0 PM EDT 06/05/2025 10:35 PM EDT us Gumaro Hernandez DO LAB BLOOD BKR ORDERABLES Alyssa medina Result [address] [address] * (ABNORMAL) Basic metabolic panel (06/05/2025 10:30 PM EDT) Only the most recent of4 resultswithin the time period is included. SODIUM 135 133 - 146 mmol/L [facility] CHLORIDE 96 96 - 108 mmol/L [facility] POTASSIUM 4.0 3.3 - 5.1 mmol/L [facility] CO2 26 21 - 35 mmol/L [facility] BUN 42(H) 6 - 19 mg/dL [facility] CREATININE 3.30(H) 0.5 - 1.5 mg/dL [facility] GLUCOSE 321(H) 70 - 99 mg/dL [facility] CALCIUM 8.1(L) 8.4 - 10.3 mg/dL [facility] EGFR 15(L) >59 mL/min/1.7 3m2 [facility] [facility] Comment:Estimated glomerular filtration rate calculated using the CKD-EPI refit equation. ANION GAP 17 10 - 20 mmol/L [facility] Blood 06/05/2025 10:3 0 PM EDT 06/05/2025 10:35 PM EDT us Gumaro Hernandez DO LAB BLOOD BKR ORDERABLES Alyssa l Result Performing Organization Address City/[facility]/ZIP Co de Phone Number [address] [address] * ECG 12-LEAD (06/05/2025 10:03 PM EDT) Ventricular Rate EKG/MIN 67 BPM [facility] Atrial Rate 67 BPM [facility] NV Interval 144 ms [facility] QRS Duration 96 ms [facility] QT Interval 466 ms [facility] QTC Interval 492 ms [facility] R Wave [place] -40 degrees [facility] T Wave [place] 50 degrees [facility] 06/05/2025 10:0 3 PM EDT 06/06/2025 8:56 AM EDT Narrative [facility] - 06/06/2025 8:56 AM EDT Normal sinus rhythm Left axis deviation Prolonged QT Abnormal ECG When compared with ECG of 05-Apr-2025 16:16, No significant change was found Confirmed by Zackary August ([id number]) on 06/06/2025 8:56:48 AM us Gumaro Hernandez DO ECG ORDERABLES Final Result Performing Organization Address [facility] de Phone Number [facility] * (ABNORMAL) POCT Glucose (04/27/2025 1:51 PM EDT) Only the most recent of51 resultswithin the time period is included. Glucose, POCT 159(H) 70 - 100 mg/dL [facility] 04/27/2025 1:51 PM EDT 04/27/2025 1:57 PM EDT us Jennifer Chapin MD POINT OF CARE TEST ORDERABLE S Final Result Performing Organization Address [facility]/ZIP Co de Phone Number [address] [address] * Hepatitis B surface antigen (04/24/2025 11:00 AM EDT) HBV SURFACE ANTIGEN NON-REACTI VE NON-REACTI VE [facility] Blood 04/24/2025 11:0 0 AM EDT 04/25/2025 8:15 AM EDT us Chemo Esteban MD LAB BLOOD BKR ORDERABLES Final R esult Performing Organization Address City/[facility]/ZIP Co de Phone Number [address] [address] * (ABNORMAL) CBC (04/23/2025 8:49 AM EDT) Only the most recent of2 resultswithin the time period is included. WBC 8.51 4.00 - 11.00 K/uL [facility] RBC 3.41(L) 4.00 - 5.20 M/uL [facility] HGB 11.1(L) 12.0 - 16.0 g/dL [facility] HCT 33.8(L) 36.0 - 46.0 % [facility] PLT 181 150 - 450 K/uL [facility] MCV 99.1 80.0 - 100.0 fL [facility] MCH 32.6(H) 27.0 - 31.0 pg [facility] MCHC 32.8 32.0 - 36.0 g/dL [facility] RDW 13.6 11.5 - 14.5 % [facility] MPV 10.3 8.4 - 12.0 [facility] NRBC 0.00 0.00 /100 WBCs [facility] ABSOLUTE NRBC 0.00 0.00 K/uL [facility] Blood 04/23/2025 8:4 9 AM EDT 04/23/2025 9:22 AM EDT us Maris Navarro MD LAB BLOOD BKR ORDERABLES Final Result Performing Organization Address City/[facility]/ZIP Co de Phone Number [address] [address] * (ABNORMAL) Comprehensive metabolic panel (04/15/2025 6:01 AM EDT) SODIUM 139 133 - 146 mmol/L [facility] POTASSIUM 4.7 3.3 - 5.1 mmol/L [facility] CHLORIDE 101 96 - 108 mmol/L [facility] CO2 27 21 - 35 mmol/L [facility] BUN 50(H) 6 - 19 mg/dL [facility] CREATININE 3.50(H) 0.5 - 1.5 mg/dL [facility] GLUCOSE 130(H) 70 - 99 mg/dL [facility] ALBUMIN 3.6(L) 3.9 - 4.8 g/dL [facility] TOTAL PROTEIN 6.5 6.5 - 8.0 g/dL [facility] CALCIUM 9.1 8.4 - 10.3 mg/dL [facility] ALKALINE PHOSPHATASE 136(H) 39 - 117 U/L [facility] TOTAL BILIRUBIN 0.5 0.0 - 1.2 mg/dL [facility] AST 14 0 - 37 U/L [facility] ALT 9 0 - 40 U/L [facility] GLOBULIN 2.9 1 - 4.8 g/dL [facility] EGFR 14(L) >59 mL/min/1.7 3m2 [facility] Comment:Estimated glomerular filtration rate calculated using the CKD-EPI refit equation. ANION GAP 16 10 - 20 mmol/L [facility] Blood 04/15/2025 6:01 AM EDT 04/15/2025 6:41 AM EDT us Jessica Ribera DO, MPH LAB BLOOD BKR O RDERABLES Final Result [facility] [address] [place] [address] * Phosphorus (04/15/2025 6:01 AM EDT) PHOSPHORUS 3.9 2.7 - 4.5 mg/dL [facility] Blood 04/15/2025 6:01 AM EDT 04/15/2025 6:41 AM EDT Jessica Ribera DO, MPH LAB BLOOD BKR O RDERABLES Final Result Performing Organization Address City/[facility]/ZIP Co de Phone Number [address] [address] * Magnesium (04/15/2025 6:01 AM EDT) MAGNESIUM 2.1 1.6 - 2.6 mg/dL [facility] Blood 04/15/2025 6:01 AM EDT 04/15/2025 6:41 AM EDT Jessica Ribera DO, MPH LAB BLOOD BKR O RDERABLES Final Result Performing Organization Address [facility] Co de Phone Number [address] [address] * (ABNORMAL) Hemoglobin A1c (04/06/2025 6:33 AM EDT) HEMOGLOBIN A1C 7.0(H) 4.3 - 5.8 % [facility] Blood 04/06/2025 6:33 AM EDT 04/06/2025 6:37 AM EDT Joseph Green MD LAB BLOOD BKR ORDERABLES Final Result Performing Organization Address [facility] Co de Phone Number [address] [address] from Last 3 Months or Most Recently Relevant to Health Maintenance [place] [address] [address] [place] [address] MEDICARE REPLACEMENT [facility] MEDICARE PART A & B [facility] MEDICARE REPLACEMENT [facility] MEDICARE PART A & [place] [address] MEDICARE REPLACEMENT [facility] MEDICARE PART A & [place] [address] MEDICARE REPLACEMENT [facility] MEDICARE PART A & B [facility] MEDICARE REPLACEMENT [facility] MEDICARE PART A & B [facility] MEDICARE [facility]PLACEMENT [facility] PART A & B Advance Directives For more information, please contact: [phone] (9AM - 5PM [facility], Wednesday-Wednesday) Documents on File Type Date Recorded 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 Healthcare Proxy 05/02/2025 2:05 PM Healthcare Proxy 04/18/2025 9:29 AM health care proxy * Full Code (Latest Code Status on File) Date Activated Date Inactivated Comments 04/05/2025 8:51 PM Question Answer Comments Code Status Confirmed With: Patient Code Status Communicated To: Inpatient Attending Care Teams Pharmacy Operations Specialist Relationship Specialty Start Date End Date Alexi Lynne MD [address] [place] [address] [place] [address] PCP - General Internal Medicine 04/05/25 Additional Source Comments The information contained in this document represents components of the legal health record. It is not the complete legal health record.[facility]
--- OUTSIDE RECORDS SUMMARY | 2025-07-16 02:55 | XMS_ITS | Encounter Summary ---
Author Organization [facility] Address [address] [place] [address] Care Team Providers Care Data Integrity Consultant Name Role Phone Terry Ochoa MD Primary Care Provider [phone] Encounter Details Date Type Department Care Team ([facility] st Contact Info) Description 11/17/2021 Orders Only [facility] [employer] [address] [facility] [address] [place] [address] Lois Carreno MD [address] [place] [id number] Social History Tobacco Use Types Packs/Day Years [...] of this encounter Procedures * Due to [facility] law, this organization might not be sharing negative HIV tests. Procedure Name Priority Date/Time Associated Diagnosis Comments THINPREP TIS PAP AND HPV RNA, HR E6/E7, TMA Routine 11/17/2021 4:35 PM EDT Screening for malignant neoplasm of cervix documented in this encounter Results * Due to [facility] law, this organization might not be sharing negative HIV tests. * THINPREP TIS PAP AND HPV RNA, HR E6/E7, TMA (11/17/2021 4:35 PM EDT) Clinical information Postmenopausal [facility] Date last menstrual period POSTMENOPAUSAL [facility] Date of previous PAP smear NONE GIVEN [facility] Date of previous biopsy NONE GIVEN [facility] Specimen source (Cvx/Vag) None given [facility] Statement of Adequacy (Cvx/Vag) Satisfactory for evaluation. Endocervical/correia sformation zone component present. [facility] Cytology, Pap Smear Negative for intraepithelial lesion or malignancy. [facility] Cytology study comment (Cvx/Vag) This Pap test has been evaluated with computer assisted technology. [facility] Scowman (Cvx/Vag) [address](ASCP) CT screening location: [place] [address] [facility] COMMENT SEE NOTE [facility] Comment: EXPLANATORY NOTE: The Pap is a [...] HPV MRNA E6/E7 Not Detected Not Detected [facility] Comment: Methodology: Account Development Associate-Mediated Amplification This assay detects E6/E7 viral messenger RNA (mRNA) from 14 high-risk HPV types (16,18,31,33,35,39,45,51,52,56,58,59,66,68). The analytical performance characteristics of this assay have been determined by [employer]. The modifications have not been cleared or approved by the FDA. This assay has been validated pursuant to the CLIA regulations and is used for clinical purposes. For additional information, please refer to http://education.Backupify/faq/GVX708d5 (This link if provided for information/ educational purposes only.) 11/17/2021 4:35 PM EDT 11/17/2021 9:57 PM EDT Narrative Resulting Agency Comment [id number] us Lois Carreno MD PATHOLOGY-INTERFACED Final Resul t Performing Organization Address City/State/[facility] Co de Phone Number [facility] [address] [place] [address] documented in this encounter Visit Diagnoses Diagnosis Screening for malignant neoplasm of cervix Screening for malignant neoplasm of the cervix documented in this encounter Care Teams Data Integrity Consultant Relationship Specialty Start Date End Date Terry Ochoa MD [facility] [place] [address] [place] [address] PCP - General Internal Medicine 09/30/21 documented as of this encounter
--- OUTSIDE RECORDS SUMMARY | 2025-07-16 02:55 | XMS_ITS | Clinical Summary ---
Author Organization [facility] Address [address] [place] [address] Care Team Providers Care Associate Merchandise Planner Name Role Phone Terry Ochoa MD Primary Care Provider [phone] Allergies No known active allergies Medications amLODIPine [...] time each day Active epoetin silverio (PROCRIT/EPOGEN) 51411 UNIT/ML injection Inject 20,000 Units under the [...] Monovalent, 30 mcg/0.3 ml 08/13/2021 Covid-19, Vector-nr ([employer]), 0.5 Ml 01/29/2021 Covid-19, mRNA (Pfizer Pre [...] Zoster (Zostavax) Discontinued Procedures * Due to [place] law, this organization might not be sharing [...] for evaluation. Endocervical/correia sformation zone component present. [facility] Cytology, Pap Smear Negative for intraepithelial lesion or malignancy. [facility] Cytology study comment (Cvx/Vag) This Pap test has been evaluated with computer assisted technology. [facility] Casting House Laborer (Cvx/Vag) [address](ASCP) CT screening location: [place] [address] [facility] COMMENT SEE NOTE [facility] Comment: EXPLANATORY NOTE: The Pap is a [...] HPV MRNA E6/E7 Not Detected Not Detected [facility] Comment: Methodology: Supervisory Geographer-Mediated Amplification This assay detects E6/E7 viral messenger RNA (mRNA) from 14 high-risk HPV types (16,18,31,33,35,39,45,51,52,56,58,59,66,68). The analytical performance characteristics of this assay have been determined by [employer]. The modifications have not been cleared or approved by the FDA. This assay has been validated pursuant to the CLIA regulations and is used for clinical purposes. For additional information, please refer to http://education.Rexly.Triductor/faq/ZDQ828v7 (This link if provided for information/ educational purposes only.) 11/17/2021 4:35 PM EDT 11/17/2021 9:57 PM EDT Narrative Resulting Agency Comment [id number] us Lois Carreno MD PATHOLOGY-INTERFACED Final Resul t [facility] [address] [place] [address] from Last 3 Months or Most Recently Relevant to Health Maintenance Insurance MEDICAID [employer] MEDICARE Care Teams Associate Merchandise Planner Relationship Specialty Start Date End Date Terry Ochoa MD [facility] [place] [address] [place] [address] PCP - General Internal Medicine 09/30/21
--- OUTSIDE RECORDS SUMMARY | 2025-07-16 02:58 | XMS_ITS | Encounter Summary ---
Author Organization [facility] Address [address] [place] [address] Phone Care Team Providers Care Asp Net Developer Name Role Phone Terry Ochoa MD Primary Care Provider [phone] Encounter Details Date Type Department Care Team (Late st Contact Info) Description 02/05/2021 Documentation Only [facility] [address] [place] [address] Tawny Churchill [place] Social History Tobacco Use Types Packs/Day Years Used Date Smoking Tobacco: Former Cigarettes 0 Q uit: 08/30/2001 Alcohol Use Standard Drinks/Week [...] 204 mg/dL BUN 36 mg/dL eGFR Non-Afr [place] 30 eGFR 35 Sodium 141 mEq/L Potassium 4.5 mEq/L Chloride 111 Carbon Dioxide 18 mmol/L Calcium 8.5 mg/dL Phosphorus, Serum 4.4 mg/dL Albumin (Blood) 2.1 g/dL Creatinine 1.8 mg/dL Anion Gap 12 Blood specimen (specimen) 08/21/2020 Historical Provider LAB BLOOD ORDERABLES Alyssa l Result documented in this encounter Visit Diagnoses Not on filedocumented in this encounter Care Teams Asp Net Developer Relationship Specialty Start Date End Date Terry Ochoa MD [address] [place], [place] PCP - General Internal Medicine 07/21/23 documented as of this encounter
[2025-07-16 03:00] LABS: Alanine Aminotransferase 11 U/L (0-31); Albumin Level 3.3 g/dL (3.5-5.0); Alkaline Phosphatase 141 U/L (39-117); Anion Gap 19 (12-20); Aspartate Amino Transferase 20 U/L (5-31); Blood Urea Nitrogen 67 mg/dL (9-16); Calcium 8.0 mg/dL (8.4-10.2); Carbon Dioxide 17 mmol/L (22-29); Chloride 99 mmol/L (96-108); Creatinine Clr Calc Pharmacy 20.5; Estimated Glomerular Filt Rate 10; Potassium 5.0 mmol/L (3.3-5.1); Sodium 130 mmol/L (135-145); Total Protein 6.5 g/dL (6.5-8.0)
--- OUTSIDE RECORDS SUMMARY | 2025-07-16 03:01 | XMS_ITS | Clinical Summary ---
Author Organization [facility] Address [address] [place] [address] Phone Care Team Providers Care Inspector Advanced Composite Name Role Phone Alexi Lynne MD Primary Care Provider [phone] Allergies Active Allergy Reactions Criticality Noted Date Comments Canagliflozin 05/30/2025 Metformin 05/30/2025 Encounters Date Type Department Care Team Description 05/30/2025 3:22 PM EDT - 05/30/2025 8:40 PM EDT Emergency [facility] Emergency [address] [place] [address] Dain Das MD Dizziness (Primary [...] Falls Risk Assessment 2023 Depression Screening 08/30/2024 COVID-19 Vaccine ( season) 2025 02/07/2025, 07/01/2024, 07/05/2023, Additional history exists Influenza Vaccine (#1) 2025 , 07/21/2022, 06/28/2020, Additional history exists Diabetes: Annual Urine Albumin-Creatinine Ratio (uACR) 05/30/2025 Diabetes: Blood Sugar Control Test (HGBA1C) 05/30/2025 02/04/2022 Diabetes: Annual GFR (Glomerular Filtration Rate) 05/30/2026 05/30/2025, 04/15/2025, 04/06/2025 Hypertension/CHF/CAD Annual BMP Blood Test 05/30/2026 05/30/2025, 04/15/2025, 04/06/2025 Pneumococcal Vaccine: 50+ Years Completed 05/21/2023 HIB Vaccines Aged Out No longer eligi [...] LAB HEMETOLOGY METHOD 05/30/2025 5:47 PM EDT [facility] RBC 2.90(L) 3.80 - 4.80 M/mcL LAB HEMETOLOGY METHOD 05/30/2025 5:47 PM EDT [facility] Hemoglobin 9.5(L) 11.5 - 16.0 g/dL LAB HEMETOLOGY METHOD 05/30/2025 5:47 PM EDT [facility] Hematocrit 28.6(L) 35.0 - 47.0 % LAB HEMETOLOGY METHOD 05/30/2025 5:47 PM EDT [facility] MCV 97.3 79.0 - 98.0 FL LAB HEMETOLOGY METHOD 05/30/2025 5:47 PM EDT [facility] MCH 32.3(H) 27.0 - 32.0 pcg LAB HEMETOLOGY METHOD 05/30/2025 5:47 PM EDT [facility] MCHC 33.2 32.0 - 37.0 g/dL LAB HEMETOLOGY METHOD 05/30/2025 5:47 PM EDT [facility] RDW 13.6 11.0 - 15.0 % LAB HEMETOLOGY METHOD 05/30/2025 5:47 PM EDT [facility] Platelets 206 130 - 400 K/mcL LAB HEMETOLOGY METHOD 05/30/2025 5:47 PM EDT [facility] MPV 9.7 7.0 - 11.0 FL LAB HEMETOLOGY METHOD 05/30/2025 5:47 PM EDT [facility] NRBC 0.0 <1.0 % LAB HEMETOLOGY METHOD 05/30/2025 5:47 PM EDT [facility] NRBC Absolute 0.00 <0.10 K/mcL LAB HEMETOLOGY METHOD [facility]/30[facility]25 [facility] Neutrophils Relative 78.6 % LAB HEMETOLOGY METHOD 05/30/2025 5:47 PM EDT [facility] Lymphocytes Relative 11.6 % LAB HEMETOLOGY METHOD 05/30/2025 5:47 PM EDT [facility] Monocytes Relative 7.2 % LAB HEMETOLOGY METHOD 05/30/2025 5:47 PM EDT [facility] Eosinophils Relative 1.6 % LAB HEMETOLOGY METHOD 05/30/2025 5:47 PM EDT [facility] Basophils Relative 0.6 % LAB HEMETOLOGY METHOD 05/30/2025 5:47 PM EDT [facility] Immature Granulocytes Relative 0.4 % LAB HEMETOLOGY METHOD 05/30/2025 5:47 PM EDT [facility] Neutrophils Absolute 7.73(H) 1.50 - 7.00 K/[facility] LAB HEMETOLOGY METHOD 05/30/2025 5:47 PM EDT [facility] Lymphocytes Absolute 1.14 1.00 - 5.00 K/mcL LAB HEMETOLOGY METHOD 05/30/2025 5:47 PM EDT [facility] Monocytes Absolute 0.71 0.20 - 1.00 K/[facility] LAB HEMETOLOGY METHOD 05/30/2025 5:47 PM EDT [facility] Eosinophils Absolute 0.16 0.00 - 0.50 K/[facility] LAB HEMETOLOGY METHOD 05/30/2025 5:47 PM EDT [facility] Basophils Absolute 0.06 0.00 - 0.20 K/mcL LAB HEMETOLOGY METHOD 05/30/2025 5:47 PM EDT [facility] Immature Granulocytes Absolute 0.04(H) 0.00 - 0.03 K/mcL LAB HEMETOLOGY METHOD 05/30/2025 5[facility] Blood Venous blood specimen / Unknown Venipuncture / Unknown 05/30/2025 5:24 PM EDT 05/30/2025 5:36 PM EDT us Dain Das MD LAB BLOOD ORDERABLES Final Resu lt [facility] [address] [place] [address], * (ABNORMAL) Basic Metabolic Panel (BMP) (05/30/2025 5:24 PM EDT) Sodium 136 133 - 145 mmol/L LAB CHEMISTRY METHOD 05/30/2025 6:05 PM EDT [facility] Potassium 3.8 3.5 - 5.5 mmol/L LAB CHEMISTRY METHOD 05/30/2025 6:05 PM [facility] Chloride 99 96 - 110 mmol/L LAB CHEMISTRY METHOD 05/30/2025 6:05 PM [facility] CO2 27 21 - 32 mmol/L LAB CHEMISTRY METHOD 05/30/2025 6:05 PM [facility] Anion Gap 10 3 - 11 LAB CHEMISTRY METHOD 05/30/2025 6:05 PM [facility] Glucose 200(H) 70 - 100 mg/dL LAB CHEMISTRY METHOD 05/30/2025 6:05 PM [facility] BUN 29(H) 5 - 25 mg/dL LAB CHEMISTRY METHOD 05/30/2025 6:05 PM [facility] Creatinine 2.85(H) 0.50 - 1.10 mg/dL LAB CHEMISTRY METHOD 05/30/2025 6:05 PM [facility] eGFR 18(L) >=60 mL/min/1. 73m2 LAB CHEMISTRY METHOD 05/30/2025 6:05 PM [facility] Comment:Calculation based on the Chronic Kidney Disease Epidemiology Collaboration (CKD-EPI) equation refit without adjustment for race. BUN/Creatinine Ratio 10.2 LAB CHEMISTRY METHOD 05/30/2025 6:05 PM [facility] Calcium 8.5 8.5 - 10.5 mg/dL LAB CHEMISTRY METHOD 05/30/2025 6:05 PM [facility] Blood Venous blood specimen / Unknown Venipuncture / Unknown 05/30/2025 5:24 PM EDT 05/30/2025 5:36 PM EDT us Dain Das MD LAB BLOOD ORDERABLES Final Resu lt [facility] [address] [place] [address], [place] [phone] * 12-Lead ECG (05/30/2025 4:11 PM EDT) Ventricular Rate ECG 63 BPM [facility] Atrial Rate 63 BPM [facility] P-R Interval 144 ms [facility] QRS Duration 96 ms [facility] Q-T Interval 484 ms [facility] QTc 495 ms [facility] P Wave [place] 18 degrees GEMUSE R [place] -40 degrees GEMUSE T [place] 18 degrees G[facility] ECG Interpretation Normal sinus rhythm Left axis deviation Abnormal ECG No previous ECGs available Confirmed by ZEUS WELLS ([id number]) on 05/31/2025 5:46:40 PM GEM[facility] 05/30/2025 4:11 PM EDT 05/31/2025 5:46 PM EDT us Dain Das MD ECG ORDERABLES Final Result [facility] from Last 3 Months Insurance [employer] MEDICARE MEDICAID - [place] Care Teams Inspector Advanced Composite Relationship Specialty Start Date End Date Alexi Lynne MD [address] [place] [address] [address] [facility] PCP - General Internal Medicine 05/30/25
[2025-07-16 03:17] LABS: Hematocrit 28.1 % (37.0-47.0); Hemoglobin 9.1 g/dl (12.0-16.0); Imm Gran Abs Auto 0.04 X10*3/uL (0.00-0.03); Imm Gran Pct Auto 0.4 % (0.0-0.4); Lymphocytes Absolute Auto 0.9 X10*3/uL (1.2-4.9); MANUAL DIFF FLAG NO; Mean Corpuscular HGB Conc 32.4 g/dl (31.0-35.0); Mean Corpuscular Hemoglobin 32.0 pg (27.0-33.0); Mean Corpuscular Volume 98.9 fL (80.0-98.0); NRBC Abs Auto 0.000 X10*3/uL (0.0-0.012); NRBC Pct Auto 0.0 /100WBC (0.0-0.2); Platelet Count 158 X10*3/uL (160-400); Red Blood Count 2.84 X10*6/uL (4.20-5.50); White Blood Count 9.8 X10*3/uL (4.8-10.8)
[2025-07-16 03:21] LABS: Venous Blood Gas Refer to POC result
[2025-07-16 03:22] LABS: VBG HCO3 21 mmol/L (22-26); VBG O2 % Saturation 100.0 %
--- NOTE | 2025-07-16 04:15 | P.HPHOSP_ITS ---
History of Present Illness Date of Service: 07/16/25 Attending physician on admission: Bandar Parr Chief Complaint: SOB pt is a 64-year-old female with past medical history significant for ESRD on HD (MWF), morbid obesity, recurrent E coli ESBL, T2 dm, HLD, HTN, chronic pain/neuropathy who presented to the ED complaining of worsening shortness of breath. pt states her last dialysis session was 07/11 prior to discharge from the hospital. she was recently admitted from 07/09-07/11 for dialysis due to missed sessions outpt. she states that she did not go to dialysis after discharge as she did not think she needed to since she had dialysis 2x while hospitalized. her cough is at baseline, no increased sputum production, fever, chills, nausea or vomiting. she has been producing urine, no dysuria, frequency or urgency. Review of Systems 2 Constitutional: Constitutional: Denies body ache(s), Denies chills, Reports fatigue, Denies fever(s) and Denies headache(s) Eyes: Eyes: Denies change in vision ENT: Denies headache(s), Denies nasal congestion and Denies nasal discharge Cardiovascular: Cardiovascular: Denies chest pain, Denies rapid heart rate, Reports leg edema, Denies lightheadedness and Reports dyspnea Respiratory: Respiratory: Denies chest congestion, Denies cough, Reports dyspnea and Denies wheezing Gastrointestinal: Gastrointestinal: Denies abdominal pain, Denies diarrhea and Denies nausea Genitourinary: Genitourinary: Denies dysuria and Denies urinary urgency Musculoskeletal: Musculoskeletal: Denies myalgias Integumentary/Breasts: Skin/Breast: Denies rash Neurologic: Denies confusion and Denies headache(s) Psychiatric: Psychiatric: Denies confusion Endocrine: Endocrine: Reports fatigue Hematologic/Lymphatic: Hematologic/Lymphatic: Denies easy bleeding Allergic/Immunologic: Allergic/Immunologic: Denies wheezing [facility] Medical History HTN (hypertension) HLD (hyperlipidemia) Frequent UTI Anemia Acute on chronic diastolic (congestive) heart failure Type 2 diabetes mellitus with obesity Clostridium difficile diarrhea Morbid obesity Detrusor dysfunction Bladder outlet obstruction Esophagitis CKD (chronic kidney disease) stage 4, GFR 15-29 ml/min Hypothyroidism IBS (irritable bowel syndrome) Family History Father Diabetes Mother Diabetes Hypertension Breast cancer Family/Other Breast cancer Uterine cancer Surgical History History of tubal ligation Social History Household Members: None Housing: Apartment Do you presently have visiting nurse or other home services: No Alcohol intake: never Comment: bedbound at baseline Patient Tobacco Use Status: Former Tobacco user Smoked in Last 30 Days: No e-Cigarette/Vaping Use: Never Used Second Hand Smoke Exposure: No Use of substances other than those prescribed or required for medical reasons: No Advance Directives: Yes Advance Directives on File: Yes Advance Directives Date on File: 10/09/20 service: No Current occupational status: disabled Cognitive needs: No Hearing needs: No Vision needs: Yes Meds Allergies Allergy/AdvReac Type Severity Reaction Status Date / Time metformin (METFORMIN) Allergy Severe HIVES Verified 07/16/25 01:41 heparin Allergy Intermediate Itching Verified 07/16/25 01:41 canagliflozin (From Invokana) Allergy Hives Verified 07/16/25 01:41 Active Medications: Current Medications Acetaminophen (Acetaminophen 325 Mg Tablet) 650 mg PO Q6H PRN PRN Reason: Pain, Mild 1-3,fever,headache Calcium Carbonate (Calcium Carbonate 750 Mg Tab.Chew) 750 mg PO Q4H PRN PRN Reason: Heartburn Dextrose (Dextrose 50 % 25 Gm/50 Ml Syringe) 25 gm IVPUSH Q15M PRN; Protocol PRN Reason: per Hypoglycemia Standing Ord. Glucose (Glucose Gel 15 Gm Gel..Gram.) 15 gm PO Q15M PRN; Protocol PRN Reason: per Hypoglycemia Standing Ord. Insulin Glargine (Insulin Glargine,Hum.Rec.Anlog 100 Unit/Ml 10 Ml Vial) 10 unit SUBCUT BEDTIME [facility] Insulin Human Lispro (Insulin Lispro 100 Unit/Ml 3 Ml Vial) 0 unit SUBCUT QIDACHS [facility]; Protocol Magnesium Hydroxide (Milk Of Magnesia 30 Ml Oral.Susp) 30 ml PO DAILY PRN PRN Reason: Constipation Melatonin (Melatonin 3 Mg Tablet) 6 mg PO BEDTIME PRN PRN Reason: Insomnia Ondansetron HCl (Ondansetron Hcl 4 Mg/2 Ml Vial) 4 mg IVPUSH Q8H PRN PRN Reason: Nausea and Vomiting Sodium Chloride (0.9 % Sodium Chloride Flush 3 Ml Syringe) 3 ml IVFLUSH QSHIFT [facility] Home Medications ?Medication ?Instructions ?Recorded ?Confirmed ?Last Taken ?Type nystatin 100,000 unit/gram topical 1 appl topical TID PRN Rash 07/11/22 07/12/25 Unknown History cream insulin lispro 100 unit/mL See Protocol subcut TIDAC 1 09/08/24 07/12/25 07/08/25 History subcutaneous solution (Humalog U-100 Insulin) pantoprazole 20 mg tablet,delayed 20 mg PO DAILY@0630 07/09/25 07/12/25 07/09/25 History release triamcinolone acetonide 0.1 % 1 appl topical TID PRN D iabetic 07/09/25 07/12/25 Unknown History topical ointment Psoriasis Physical Exam 2 Vital Signs and Narrative: Vital Signs: Last Vital Signs Temp 98.4 F 07/16/25 01:27 Pulse 64 07/16/25 04:00 Resp 20 07/16/25 04:00 BP 152/61 H 07/16/25 04:00 Pulse Ox 99 07/16/25 04:00 O2 Del Method Nasal Cannula 07/16/25 04:00 O2 Flow Rate 2 07/16/25 04:00 Oxygen Flow Rate 2 07/16/25 01:27 BMI result Body Mass Index 57.7 General: AOx3, no acute distress Resp: crackles bilateral lung bases, conversational dyspnea CVS: S1, S2, RRR GI: +BS, NT, no distention Skin: Warm, dry Neuro: Cranial nerves II-XII grossly intact bilaterally. Motor grossly intact bilaterally Extremities: No pitting edema Psych: Appropriate affect Const: General: No confusion Orientation/consciousness: No confusion Neuro: General: No confusion Results Labs 07/16/25 04:18 07/16/25 04:18 Labs: Laboratory Results - last 24 hr 07/16/25 07/16/25 07/16/25 01:31 02:32 03:11 MCV 98.9 H MCH 32.0 MCHC 32.4 RDW 14.1 Plt Count 158 L MPV 10.5 Immature Gran % (Auto) 0.4 Neut % (Auto) 79.5 H Lymph % (Auto) 9.2 L [place] % (Auto) 7.4 Eos % (Auto) 3.0 Baso % (Auto) 0.5 Lymph # (Auto) 0.9 L [place] # (Auto) 0.7 Eos # (Auto) 0.3 Baso # (Auto) 0.1 Abs Immat Gran (auto) 0.04 H Absolute Neuts (auto) 7.8 Absolute Nucleated RBC 0.000 Nucleated RBC % (auto) 0.0 VBG pH VBG pCO2 VBG pO2 VBG HCO3 VBG O2 Saturation VBG Base Excess Anion Gap 19 Estim Creat Clear Calc 20.5 Estimated GFR 10 POC Glucose 591 H* Random Glucose 623 H* Lactic Acid 2.3 H* Calcium 8.0 L Total Bilirubin 0.4 AST 20 ALT 11 Alkaline Phosphatase 141 H NT-Pro-B Natriuret Pep 6773.1 H Total Protein 6.5 Albumin 3.3 L Beta-Hydroxybutyrate 0.16 07/16/25 03:17 MCV MCH MCHC RDW Plt Count MPV Immature Gran % (Auto) Neut % (Auto) Lymph % (Auto) [place] % (Auto) Eos % (Auto) Baso % (Auto) Lymph # (Auto) [place] # (Auto) Eos # (Auto) Baso # (Auto) Abs Immat Gran (auto) Absolute Neuts (auto) Absolute Nucleated RBC Nucleated RBC % (auto) VBG pH 7.45 H VBG pCO2 30 VBG pO2 164 VBG HCO3 21 L VBG O2 Saturation 100.0 VBG Base Excess -1.7 Anion Gap Estim Creat Clear Calc Estimated GFR POC Glucose Random Glucose Lactic Acid Calcium Total Bilirubin AST ALT Alkaline Phosphatase NT-Pro-B Natriuret Pep Total Protein Albumin Beta-Hydroxybutyrate Assessment and Plan (1) Acute respiratory failure with hypoxia: Status: Acute (2) ESRD (end stage renal disease) on dialysis: Status: Acute (3) Acute lactic acidosis: Status: Acute (4) Uncontrolled type 2 diabetes mellitus with hyperglycemia: Status: Acute (5) Morbid obesity: Status: Acute Plan pt is a 64-year-old female with past medical history significant for ESRD on HD (MWF), morbid obesity, recurrent E coli ESBL, T2 dm, HLD, HTN, chronic pain/neuropathy who presented to the ED complaining of worsening shortness of breath. pt has not gone for dialysis since discharge from hospital on 07/11. Acute hypoxic respiratory failure secondary to ESRD on HD MWF with fluid overload due to missed dialysis - nephrology consult - RTANE - CXR with possible infiltrate, no fever or leukocytosis, check procalcitonin - daily weights and Is and Os - IV lasix 40mg x1 - monitor CBC and BMP acute lactic acidosis - likely secondary to worsening renal function due to missed dialysis uncontrolled T2DM with hyperglycemia, no DKA - SSI - lantus 10 U QHS, add 10U lantus in AM - diabetic diet chronic anemia, at baseline - monitor CBC HTN -po amlodipine, hydralazine 25mg TID intertrigo - nystatin cream morbid obesity - BMI 57.7 - weight loss encouraged med rec pending full code VTE prophy: SCDs due to heparin allergy Pt with ESRD On HD, missed dialysis with subsequent fluid overload, requiring admission for at least 2 midnights stay for dialysis and monitoring. Quality Stroke Does the patient have a stroke diagnosis?: No VTE Prior VTE?: No VTE Risk Level:: Medical - moderate - high VTE Device Contraindication: N/A - Device Ordered VTE Drug Contraindication: Treatment Not Tolerated
[2025-07-16 04:30] LABS: MANUAL DIFF FLAG NO
[2025-07-16 04:31] LABS: Hematocrit 27.7 % (37.0-47.0); Hemoglobin 9.1 g/dl (12.0-16.0); Imm Gran Abs Auto 0.04 X10*3/uL (0.00-0.03); Imm Gran Pct Auto 0.5 % (0.0-0.4); Lymphocytes Absolute Auto 0.8 X10*3/uL (1.2-4.9); Mean Corpuscular HGB Conc 32.9 g/dl (31.0-35.0); Mean Corpuscular Hemoglobin 32.6 pg (27.0-33.0); Mean Corpuscular Volume 99.3 fL (80.0-98.0); NRBC Abs Auto 0.000 X10*3/uL (0.0-0.012); NRBC Pct Auto 0.0 /100WBC (0.0-0.2); Platelet Count 144 X10*3/uL (160-400); Red Blood Count 2.79 X10*6/uL (4.20-5.50); White Blood Count 8.5 X10*3/uL (4.8-10.8)
[2025-07-16 04:53] LABS: Anion Gap 20 (12-20); Blood Urea Nitrogen 65 mg/dL (9-16); Calcium 8.3 mg/dL (8.4-10.2); Carbon Dioxide 19 mmol/L (22-29); Chloride 99 mmol/L (96-108); Creatinine Clr Calc Pharmacy 20.4; Estimated Glomerular Filt Rate 10; Magnesium 1.7 mg/dL (1.6-2.6); Potassium 4.6 mmol/L (3.3-5.1); Sodium 133 mmol/L (135-145)
[2025-07-16 05:16] LABS: Reflex Lactate? Lactic Acid Added
[2025-07-16 05:19] LABS: Glucose, Whole Blood 388 mg/dL (60-115)
[2025-07-16 05:57] LABS: Procalcitonin 0.15 ng/mL
[2025-07-16] MEDS: Furosemide 40 MG/4 ML VIAL IVPUSH (06:14)
[2025-07-16 06:18] LABS: ~Lactic Acid-LAB USE ONLY 1.9 mmol/L (0.5-2.0)
[2025-07-16] MEDS: Insulin Glargine,Hum.rec.anlog 100 UNIT/ML 10 ML VIAL 10 UNIT SUBCUT ×2 (06:36→22:02)
[2025-07-16] MEDS: 0.9 % Sodium Chloride Flush 3 ML SYRINGE IVFLUSH ×3 (07:13→22:09)
[2025-07-16 07:25] LABS: Glucose, Whole Blood 356 mg/dL (60-115)
--- NOTE | 2025-07-16 07:37 | PC.NURSE ---
POC obtained displaying 356mg/dL. hospitalist notified/aware. insulin administered per sliding scale w/o any additional interventions as pt recently received scheduled lantus prior to this RN's arrival. pt otherwise pending transfer to admission room. in no apparent distress. call gonzalez placed within reach.
--- NOTE | 2025-07-16 07:57 | PHA.MEDREC ---
Pharmacy Consult ? Medication Reconciliation Pharmacy has completed the medication reconciliation. Patient is poor historian so utilized previous discharge and pharmacy list. Also updated list from pcp visit
--- NOTE | 2025-07-16 09:03 | MHC.CM.PN ---
CM ,met with patient at bedside and addressed IMM with her, providing Patient with the original and a copy has been placed on the chart. Patient lives alone in an apartment and reports not needing and device to assist with mobility. 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 Home/resume said services is Patient's goal and CM has initiated and will follow for dc planning. PCP is Dr. MCDONALD @ [address] [place] [address] Dr in [place] and Patient will require BLS transport, through [facility], at in. Initialized on 07/16/25 08:57 - END OF NOTE
[2025-07-16] MEDS: oxyBUTYnin chloride ER 5 MG TAB.ER.24 15 MG PO (09:36)
[2025-07-16 11:17] LABS: Glucose, Whole Blood 338 mg/dL (60-115)
--- NOTE | 2025-07-16 13:03 | MHC.CM.PN ---
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 Patient is agreeable to a SNF search. MD is aware.
--- NOTE | 2025-07-16 14:11 | P.EN_ITS ---
Event Note Date of Service: 07/16/25 Event Note: Pt seen/examined. She was admitted this morning. She is on dialysis and comes in frequently for missing dialysis and sob, she missed dialysis again and was sob She is down 1 [employer] [place] for only two hours a day and does not feel she can manage at home. Case managment is looking for a long-term care facility that can accommodate dialysis. O/w A/P per H and P from today. Med rec completed Time Spent With Patient Time: Total time managing care of this patient today ____ minutes.
--- NOTE | 2025-07-16 14:32 | MHC.CM.PN ---
Patient's [facility] # is [id number].
--- NOTE | 2025-07-16 15:32 | PM.CNNEP ---
History of Present Illness Reason for Consult Consult date: 07/16/25 Reason for consult: ESRD and HD management History of Present Illness Narrative: RTANE cosnulrted for ESRD and HD management In summary 64-year-old female with past medical history significant for ESRD on HD (MWF) at [facility] ( [phone]), morbid obesity, recurrent E coli ESBL, T2 dm, HLD, HTN, chronic pain/neuropathy who presented to the ED complaining of worsening shortness of breath. pt has not gone for dialysis since discharge from hospital on 07/11. PMH as noted Review of Systems Constitutional: Denies body ache(s), Denies chills, Reports fatigue, Denies fever(s) and Denies headache(s) Eyes: Denies change in vision Denies headache(s), Denies nasal congestion and Denies nasal discharge Cardiovascular: Denies chest pain, Denies rapid heart rate, Reports leg edema, Denies lightheadedness and Reports dyspnea Respiratory: Denies chest congestion, Denies cough, Reports dyspnea and Denies wheezing Gastrointestinal: Denies abdominal pain, Denies diarrhea and Denies nausea Musculoskeletal: Denies myalgias Skin/Breast: Denies rash Denies confusion and Denies headache(s) Psychiatric: Denies confusion Endocrine: Reports fatigue Hematologic/Lymphatic: Denies easy bleeding Allergic/Immunologic: Denies wheezing PMFSH Past Medical History Medical History HTN (hypertension) HLD (hyperlipidemia) Frequent UTI Anemia Acute on chronic diastolic (congestive) heart failure Type 2 diabetes mellitus with obesity Clostridium difficile diarrhea Morbid obesity Detrusor dysfunction Bladder outlet obstruction Esophagitis CKD (chronic kidney disease) stage 4, GFR 15-29 ml/min Hypothyroidism IBS (irritable bowel syndrome) Family History Family History Father Diabetes Mother Diabetes Hypertension Breast cancer Family/Other Breast cancer Uterine cancer Surgical History Surgical History History of tubal ligation Social History Social History Household Members: None Housing: Apartment Do you presently have visiting nurse or other home services: No Alcohol intake: never Comment: bedbound at baseline Patient Tobacco Use Status: Former Tobacco user e-Cigarette/Vaping Use: Never Used Second Hand Smoke Exposure: No Advance Directives Date on File: 10/09/20 service: No Current occupational status: disabled Cognitive needs: No Hearing needs: No Vision needs: Yes Meds Allergies Allergy/AdvReac Type Severity Reaction Status Date / Time metformin (METFORMIN) Allergy Severe HIVES Verified 07/16/25 01:41 heparin Allergy Intermediate Itching Verified 07/16/25 01:41 canagliflozin (From Invokana) Allergy Hives Verified 07/16/25 01:41 Active Medications: Current Medications Acetaminophen (Acetaminophen 325 Mg Tablet) 650 mg PO Q6H PRN PRN Reason: Pain, Mild 1-3,fever,headache Amlodipine Besylate (Amlodipine Besylate 10 Mg Tablet) 10 mg PO DAILY [facility]; Protocol Last Admin: 07/16/25 09:38 Dose: Not Given Calcium Carbonate (Calcium Carbonate 750 Mg Tab.Chew) 750 mg PO Q4H PRN PRN Reason: Heartburn Dextrose (Dextrose 50 % 25 Gm/50 Ml Syringe) 25 gm IVPUSH Q15M PRN; Protocol PRN Reason: per Hypoglycemia Standing Ord. Docusate Sodium (Docusate Sodium 100 Mg Capsule) 100 mg PO DAILY [facility] Last Admin: 07/16/25 09:37 Dose: 100 mg Gabapentin (Gabapentin 100 Mg Capsule) 100 mg PO BID [facility] Last Admin: 07/16/25 09:37 Dose: 100 mg Glucose (Glucose Gel 15 Gm Gel..Gram.) 15 gm PO Q15M PRN; Protocol PRN Reason: per Hypoglycemia Standing Ord. Hydralazine HCl (Hydralazine Hcl 25 Mg Tablet) 25 mg PO TID [facility]; Protocol Last Admin: 07/16/25 09:37 Dose: Not Given Insulin Glargine (Insulin Glargine,Hum.Rec.Anlog 100 Unit/Ml 10 Ml Vial) 10 unit SUBCUT BEDTIME [facility] Insulin Glargine (Insulin Glargine,Hum.Rec.Anlog 100 Unit/Ml 10 Ml Vial) 10 unit SUBCUT DAILY [facility] Last Admin: 07/16/25 06:36 Dose: 10 unit Insulin Human Lispro (Insulin Lispro 100 Unit/Ml 3 Ml Vial) 0 unit SUBCUT QIDACHS [facility]; Protocol Last Admin: 07/16/25 11:21 Dose: 8 unit Magnesium Hydroxide (Milk Of Magnesia 30 Ml Oral.Susp) 30 ml PO DAILY PRN PRN Reason: Constipation Melatonin (Melatonin 3 Mg Tablet) 6 mg PO BEDTIME PRN PRN Reason: Insomnia Metoprolol Tartrate (Metoprolol Tartrate 12.5 Mg Halftab) 12.5 mg PO BID [facility]; Protocol Last Admin: 07/16/25 09:38 Dose: Not Given Nystatin (Nystatin Cream 15 Gm Tube) 1 appl TOPICAL TID PRN; Protocol PRN Reason: Rash Omeprazole (Omeprazole 20 Mg Capsule.Dr) 20 mg PO DAILY@0630 [facility] Ondansetron HCl (Ondansetron Hcl 4 Mg/2 Ml Vial) 4 mg IVPUSH Q8H PRN PRN Reason: Nausea and Vomiting Ondansetron HCl (Ondansetron Odt 4 Mg Tab.Rapdis) 4 mg TRANSLINGU TIDAC PRN PRN Reason: Nausea Oxybutynin Chloride (Oxybutynin Chloride Er 5 Mg Tab.Er.24) 15 mg PO DAILY [facility] Last Admin: 07/16/25 09:36 Dose: 15 mg Ropinirole HCl (Ropinirole Hcl 0.25 Mg Tablet) 0.25 mg PO BEDTIME [facility] Senna (Sennosides 8.6 Mg Tablet) 17.2 mg PO BEDTIME [facility] Sodium Chloride (0.9 % Sodium Chloride Flush 3 Ml Syringe) 3 ml IVFLUSH QSHIFT [facility] Last Admin: 07/16/25 07:13 Dose: 3 ml Triamcinolone Acetonide (Triamcinolone Acet 0.1 % Oint 15 Gm Tube) 1 appl TOPICAL TID PRN PRN Reason: Diabetic Psoriasis Home Medications ?Medication ?Instructions ?Recorded ?Confirmed ?Last Taken ?Type nystatin 100,000 unit/gram topical 1 appl topical TID PRN Rash 07/11/22 07/16/25 Unknown History cream insulin lispro 100 unit/mL See Protocol subcut TIDAC 07/09/25 07/16/25 07/08/25 History subcutaneous solution (Humalog U-100 Insulin) pantoprazole 20 mg tablet,delayed 20 mg PO DAILY@0630 07/09/25 07/16/25 07/09/25 History release triamcinolone acetonide 0.1 % 1 appl topical TID PRN Diabetic 07/09/25 07/16/25 Unknown History topical ointment Psoriasis Physical Exam Vital Signs: Last Vital Signs Temp 98.1 F 07/16/25 11:53 Pulse 63 07/16/25 11:53 Resp 20 07/16/25 11:53 BP 150/65 H 07/16/25 11:53 Pulse Ox 99 07/16/25 11:53 O2 Del Method Nasal Cannula 07/16/25 11:53 O2 Flow Rate 2 07/16/25 11:53 Oxygen Flow Rate 2 07/16/25 01:27 BMI result Body Mass Index 58.6 Const General: No confusion Orientation/consciousness: No confusion Neuro General: No confusion Results Lab Results 07/16/25 04:18 07/16/25 04:18 Lab results: Chemistry 07/16/25 07/16/25 02:32 04:18 Sodium 130 L 133 L Potassium 5.0 4.6 Carbon Dioxide 17 L 19 L BUN 67 H 65 H Creatinine 4.22 H* 4.24 H* Calcium 8.0 L 8.3 L Hematology 07/16/25 07/16/25 03:11 04:18 WBC 9.8 8.5 Hgb 9.1 L 9.1 L Plt Count 158 L 144 L Assessment and Plan (1) Acute respiratory failure with hypoxia: Status: Acute (2) ESRD (end stage renal disease) on dialysis: Status: Acute (3) Acute lactic acidosis: Status: Acute (4) Uncontrolled type 2 diabetes mellitus with hyperglycemia: Status: Acute (5) Morbid obesity: Status: Acute Plan ESRD: HD today and then reasses as may need HD agasin tmw vs cont mwf Hyoxia: multifact with hypervol playing a role Nephrogenic Anemia Clearly has some residual renal func give SCr 4.4 despite no HD x 5-6 days Will try diuretic as means to help contol hypervol as well d Procedures Date of Service Date of Service: 07/16/25
--- NOTE | 2025-07-16 16:12 | MHC.CM.PN ---
[facility] has accepted Patient; they are working on transportation to and from HD. MDS has been faxed to [facility] and uploaded into [facility]. CM will follow.
[2025-07-16 17:19] LABS: Glucose, Whole Blood 178 mg/dL (60-115)
[2025-07-16 20:28] LABS: Glucose, Whole Blood 199 mg/dL (60-115)
[2025-07-17 03:16] VITALS: BP 147/65; PULSE 63; RESP 18; TEMP 36.4; O2SAT 99
[2025-07-17 07:08] LABS: Glucose, Whole Blood 216 mg/dL (60-115)
[2025-07-17 07:41] VITALS: PULSE 62; RESP 16; TEMP 36.3; O2SAT 99
[2025-07-17 08:27] LABS: MANUAL DIFF FLAG NO
[2025-07-17 08:30] LABS: Hematocrit 28.7 % (37.0-47.0); Hemoglobin 9.5 g/dl (12.0-16.0); Imm Gran Abs Auto 0.03 X10*3/uL (0.00-0.03); Imm Gran Pct Auto 0.4 % (0.0-0.4); Lymphocytes Absolute Auto 1.2 X10*3/uL (1.2-4.9); Mean Corpuscular HGB Conc 33.1 g/dl (31.0-35.0); Mean Corpuscular Hemoglobin 32.6 pg (27.0-33.0); Mean Corpuscular Volume 98.6 fL (80.0-98.0); NRBC Abs Auto 0.000 X10*3/uL (0.0-0.012); NRBC Pct Auto 0.0 /100WBC (0.0-0.2); Platelet Count 153 X10*3/uL (160-400); Red Blood Count 2.91 X10*6/uL (4.20-5.50); White Blood Count 8.2 X10*3/uL (4.8-10.8)
[2025-07-17] MEDS: Insulin Glargine,Hum.rec.anlog 100 UNIT/ML 10 ML VIAL 10 UNIT SUBCUT (08:32)
[2025-07-17 08:33] VITALS: BP 144/64
[2025-07-17] MEDS: oxyBUTYnin chloride ER 5 MG TAB.ER.24 15 MG PO (08:33)
[2025-07-17] MEDS: Metoprolol Tartrate 12.5 MG HALFTAB PO (08:33)
[2025-07-17] MEDS: 0.9 % Sodium Chloride Flush 3 ML SYRINGE IVFLUSH ×2 (08:34→16:58)
[2025-07-17 08:48] LABS: Anion Gap 13 (12-20); Blood Urea Nitrogen 38 mg/dL (9-16); Calcium 8.5 mg/dL (8.4-10.2); Carbon Dioxide 26 mmol/L (22-29); Chloride 101 mmol/L (96-108); Creatinine Clr Calc Pharmacy 31.9; Estimated Glomerular Filt Rate 17; Potassium 4.1 mmol/L (3.3-5.1); Sodium 136 mmol/L (135-145)
[2025-07-17 11:06] LABS: Glucose, Whole Blood 220 mg/dL (60-115)
[2025-07-17 11:25] VITALS: BP 144/65; PULSE 63; RESP 20; TEMP 36.9; O2SAT 98
[2025-07-17 15:19] VITALS: BP 144/64; PULSE 64; RESP 16; TEMP 36.3; O2SAT 100
--- NOTE | 2025-07-17 15:21 | MHC.CM.PN ---
Per MD, Patient is medically cleared for dc to SNF/STR today. Patient has accepted a bed offer from [facility] and [facility] has been set up for 5:30 pharmacy picking technician today. [facility] has arranged for Patient's HD and HD transportation.
--- NOTE | 2025-07-17 15:39 | HO.WOUND ---
Wound Consult: Initial 65yr old?female admitted to [facility] on 07/16/25 03:52 - See progress notes and H&P for detailed history.? Wound consult placed for Skin Folds.? Patient agreeable to assessment and photo documentation.? Patient is a great self advocate she seems to know herself and her skin well. She reports the nystatin cream she has ordered often causes further skin break down at the base of the fold when it traps moisture with penitentiary use. She reports Powder and Nystatin powder work best for her. She reports Interdry does not work as it is intended in her case - she reports with her skin folds the loose skin grabs at the interdry and furthers skin pulling leading to tearing despite the interdry intention of allowing for smooth flow between skin folds. Of note the patient skin is assessed and noted to be intact clean and free of injury evidence of her routine care. Patient is set for d/c to fpc facility this evening should she remain inpatient I recommend we switch her topical antifungal cream to a powder, otherwise this can be accomplished at the transfer facility. No open skin injuries noted and mild evidence of fungal derm in place likely improving due to treatment with topical antifungal cream. Skin Folds - Cleanse with PH balance wipes or soap and water, pat dry with soft cloth.? Apply antifungal power to assist with moisture management.? Be sure to dust of excess powder to prevent caking on skin and in folds. Apply per provider orders.
--- NOTE | 2025-07-17 15:54 | P.DS_ITS ---
DS: Providers Provider Date of Service: 07/17/25 Date of admission: 07/16/25 03:52 Date of discharge: 07/17/25 Primary care physician: Paco Ignacio MD Consults: 07/16/25 03:55 Consult to Nephrology Routine Consulting Provider: [facility] Reason for consultation: ESRD on HD, last session 07/11/25 Has provider been notified: No 07/17/25 10:40 Consult to Wound Care Routine Consulting Provider: [facility] Wound Care Management Reason for consultation: Fungal rash to abd folds/immi area DS: Diagnosis Discharge Diagnosis (1) Acute respiratory failure with hypoxia: Status: Acute (2) ESRD (end stage renal disease) on dialysis: Status: Acute (3) Acute lactic acidosis: Status: Acute (4) Uncontrolled type 2 diabetes mellitus with hyperglycemia: Status: Acute (5) Morbid obesity: Status: Acute DS: Summary Hospital Course Hospital Course: Chief Complaint: SOB Pt is a 64-year-old female with past medical history significant for ESRD on HD (MWF), morbid obesity, recurrent E coli ESBL, T2 dm, HLD, HTN, chronic pain/neuropathy who presented to the ED complaining of worsening shortness of breath. pt states her last dialysis session was 07/11 prior to discharge from the hospital. she was recently admitted from 07/09-07/11 for dialysis due to missed sessions outpt. she states that she did not go to dialysis after discharge as she did not think she needed to since she had dialysis 2x while hospitalized. her cough is at baseline, no increased sputum production, fever, chills, nausea or vomiting. she has been producing urine, no dysuria, frequency or urgency. Pt has not gone for dialysis since discharge from hospital on 07/11. Acute hypoxic respiratory failure secondary to ESRD on HD MWF with fluid overload due to missed dialysis - resolved after initiation of dialysis while inpatient. Patient's issue is inability to attend hemodialysis due to lack of reliability of transportation, lack of wheelchair and social supports. Evaluation for placement to a long-term care facility, which was accepted today. Patient is hemodynamically stable and medically ready for discharge. 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 She is relatively restricted to utilizing her right upper extremity and forearm for all lifting, carrying...etc Status at Discharge Functional status at discharge: wheelchair bound Overall status at discharge: patient is back to baseline Time Attestation Total time managing care of this patient today: 35 mintues. Discharge Coordination Time (in mins): 45 Quality: Safe Use of Opioids Does Pt have an Active Cancer Diagnosis on the Problem List?: No Quality: Stroke Does the patient have a stroke diagnosis?: No Physical Exam Exam: Exam: General: A&O x3, oriented to time place person and situation, comfortable, no pain;. MO habitus Cardiac: S1, S2 auscultated with no S3/4, no MRG. Well perfused. Respiratory: Normal breath sounds auscultated throughout all lung zones, without wheezing, rales. Normal rate. GI/ : No abdominal pain on palpation, no masses or distentions. MSK: Normal ambulation without pain at bony prominences or musculature. Tenderness and pain identified at the proximal distal aspect of the lateral forearm and wrist; worse with thumb extension. Left UE fistula in place; bruit auscultated Neurological: Normal neurological examination on overview, without obvious CN II-XII abnormalities. Vital Signs: Vital Signs: Last Vital Signs Temp 97.3 F 07/17/25 15:19 Pulse 64 07/17/25 15:19 Resp 16 07/17/25 15:19 BP 144/64 H 07/17/25 15:19 Pulse Ox 100 07/17/25 15:19 O2 Del Method Nasal Cannula 07/17/25 15:19 O2 Flow Rate 2 07/17/25 15:19 Oxygen Flow Rate 2 07/16/25 01:27 BMI result Body Mass Index 58.6 DS: Data Data Completed and Pending Completed studies during hospitalization [Text1]: Procedures Excision of Duodenum, Via Natural or Artificial Opening Endoscopic, Diagnostic (07/31/20) Excision of Stomach, Pylorus, Via Natural or Artificial Opening Endoscopic, Diagnostic (07/31/20) Performance of Urinary Filtration, Intermittent, Less than 6 Hours Per Day (07/09/25) Labs on day of discharge: Laboratory Results - last 24 hr 07/16/25 07/16/25 07/17/25 17:13 20:20 06:57 WBC RBC Hgb Hct MCV MCH MCHC RDW Plt Count MPV Immature Gran % (Auto) Neut % (Auto) Lymph % (Auto) [place] % (Auto) Eos % (Auto) Baso % (Auto) Lymph # (Auto) [place] # (Auto) Eos # (Auto) Baso # (Auto) Abs Immat Gran (auto) Absolute Neuts (auto) Absolute Nucleated RBC Nucleated RBC % (auto) Sodium Potassium Chloride Carbon Dioxide Anion Gap BUN Creatinine Estim Creat Clear Calc Estimated GFR POC Glucose 178 H 199 H 216 H Random Glucose Calcium 07/17/25 07/17/25 07:56 10:58 WBC 8.2 RBC 2.91 L Hgb 9.5 L Hct 28.7 L MCV 98.6 H MCH 32.6 MCHC 33.1 RDW 14.2 Plt Count 153 L MPV 10.4 Immature Gran % (Auto) 0.4 Neut % (Auto) 71.2 Lymph % (Auto) 14.2 L [place] % (Auto) 8.6 Eos % (Auto) 4.9 H Baso % (Auto) 0.7 Lymph # (Auto) 1.2 [place] # (Auto) 0.7 Eos # (Auto) 0.4 Baso # (Auto) 0.1 Abs Immat Gran (auto) 0.03 Absolute Neuts (auto) 5.9 Absolute Nucleated RBC 0.000 Nucleated RBC % (auto) 0.0 Sodium 136 Potassium 4.1 Chloride 101 Carbon Dioxide 26 Anion Gap 13 BUN 38 H Creatinine 2.74 H Estim Creat Clear Calc 31.9 Estimated GFR 17 POC Glucose 220 H Random Glucose 222 H Calcium 8.5 Discharge Plan Discharge Anticipated Discharge Date/Time: 07/17/25 16:00 Patient Disposition: Xfer LT Discharge Diagnosis: Acute hypoxic respiratory failure 2/2 missed HD sessions setting of ESRD Referrals: Paco Ignacio MD [Other] - 1 Week [facility] [Outside] - 1 Week Discharge Medications: No Action (DME) Accu-Chek Berna Plus test strp Strip See Rx Instructions .Route Qty: 300 8RF Rx Instructions: to check blood sugars five times a day (DME) blood sugar diagnostic Strip See Rx Instructions .ROUTE .MEDSUPPLY Qty: 200 8RF Rx Instructions: FREESTYLE TEST STRIPS (DME) hospital bed Kit See Rx Instructions .Route Qty: 1 0RF Rx Instructions: As directed (DME) pen needle, diabetic 32 gauge x 5/32 needle See Rx Instructions .Route Qty: 100 0RF Rx Instructions: use TID (DME) insulin syringe-needle U-100 [BD Insulin Syringe Ultra-Fine] 1 mL 30 gauge x 1/2 syringe See Rx Instructions .ROUTE .MEDSUPPLY Qty: 100 3RF Rx Instructions: TID nystatin 100,000 unit/gram Cream 1 appl TOPICAL TID PRN (Reason: Rash) Protocol: Apply to: Apply to: UNDER BREASTS, BELLY FOLDS pantoprazole 20 mg tablet,delayed release (DR/EC) 20 mg PO DAILY@0630 triamcinolone acetonide 0.1 % ointment 1 appl topical TID PRN (Reason: Diabetic Psoriasis ) insulin lispro [Humalog U-100 Insulin] 100 unit/mL solution See Protocol subcut TIDAC Protocol: Insulin Correction Scale Less than or equal to 110 ---- Give (units): 0 111 to 150 Give (units): 0 151 to 200 Give (units): 2 201 to 250 Give (units): 4 251 to 300 Give (units): 6 301 to 350 Give (units): 8 Greater than 350 Give (units): 10 Call MD if Blood Glucose > : 350 Rx Instructions: Patient uses a sliding scale sennosides [senna] 8.6 mg Tablet 17.2 mg PO BEDTIME 30 Days Qty: 30 3RF acetaminophen 325 mg Tablet 650 mg PO Q6H PRN (Reason: Pain (Scale Score 4-6)) 30 Days Qty: 3 3RF ropinirole 0.25 mg tablet 0.25 mg PO BEDTIME 30 Days Qty: 30 2RF amlodipine 10 mg tablet 10 mg PO DAILY 30 Days Qty: 30 3RF docusate sodium 100 mg Capsule 100 mg PO DAILY 30 Days Qty: 30 3RF ondansetron 4 mg tablet,disintegrating 4 mg translingual TIDAC PRN (Reason: nausea) 30 Days Qty: 12 3RF insulin glargine [Lantus Solostar U-100 Insulin] 100 unit/mL (3 mL) insulin pen 20 unit subcut BEDTIME 30 Days Qty: 3 3RF oxybutynin chloride 15 mg tablet extended release 24hr 15 mg PO DAILY 30 Days Qty: 30 3RF hydralazine 25 mg Tablet 25 mg PO TID 30 Days Qty: 30 3RF gabapentin 100 mg capsule 100 mg PO BID 30 Days Qty: 60 0RF metoprolol tartrate 25 mg tablet 12.5 mg PO BID Qty: 60 3RF Discharge Orders: Discharge Order (Routine); Ordered 07/17/25 Ordered By: Adiel Templeton Diet: Advance to usual diet Activity on Discharge: As tolerated Stand Alone Forms: Patient Portal Discharge page Print Language: [place] Care Plan Goals: As above Health Concerns: As above Plan of Treatment: Follow up HD sessions MWF Follow up outpatient Nephrology Follow up with PCP within 1 week of discharge Assessment: Deemed hemodynamically stable to be discharged to long-term care facility, with setting up of social supports needed to attend hemodialysis sessions
[2025-07-17 16:39] LABS: Glucose, Whole Blood 187 mg/dL (60-115)
[2025-07-17 16:55] VITALS: BP 144/64
== END 2025-07-17 17:41 | DRG 640 ==
LOC: HO.ED 02:51 → HO.EDOVER 03:54 → HO.IMC 07:20
PROVIDERS: Internal Medicine; Physician Assistant; Admitting Provider Internal Medicine; Emergency Provider Emergency Medicine; PCP Internal Medicine; Visit Provider Hospitalist
DX: E87.70 Fluid overload, unspecified (principal); J96.01 Acute respiratory failure with hypoxia; N18.6 End stage renal disease; I13.2 Hypertensive heart and chronic kidney disease with heart failure and with stage 5 chronic kidney disease, or end stage renal disease; I50.32 Chronic diastolic (congestive) heart failure; Z68.43 Body mass index [BMI] 50.0-59.9, adult; E11.22 Type 2 diabetes mellitus with diabetic chronic kidney disease; E87.21 Acute metabolic acidosis; E11.40 Type 2 diabetes mellitus with diabetic neuropathy, unspecified; E11.65 Type 2 diabetes mellitus with hyperglycemia; E66.01 Morbid (severe) obesity due to excess calories; Z71.3 Dietary counseling and surveillance; D63.1 Anemia in chronic kidney disease; Z91.158 Patient's noncompliance with renal dialysis for other reason; T38.3X6A Underdosing of insulin and oral hypoglycemic [antidiabetic] drugs, initial encounter; Z99.2 Dependence on renal dialysis; Z79.4 Long term (current) use of insulin; Z79.899 Other long term (current) drug therapy
CPT/HCPCS: 36415; 71045; 80048; 80053; 82010; 82803; 82947; 83605; 83735; 83880; 84145; 85025; 90999; 93005; 99222; 99285; J1938

== ENCOUNTER → 2025-07-16 01:46 | Outpatient (BNV) | payer MEDICARE, MEDICAID, SELFPAY | PROVIDERS: Admitting Provider Internal Medicine; Emergency Provider Emergency Medicine; Visit Provider General Practice | DX: E87.70 Fluid overload, unspecified (principal); N18.6 End stage renal disease | CPT/HCPCS: 71045 ==

== ENCOUNTER → 2025-07-16 01:47 | Outpatient (BNV) | payer MEDICARE, MEDICAID, SELFPAY | PROVIDERS: Admitting Provider Internal Medicine; Emergency Provider Emergency Medicine; Visit Provider Internal Medicine | DX: R94.31 Abnormal electrocardiogram [ECG] [EKG] (principal); R06.00 Dyspnea, unspecified | CPT/HCPCS: 93010 ==

== ENCOUNTER → 2025-07-16 03:52 | Outpatient (BNV) | payer MEDICARE, MEDICAID, SELFPAY | PROVIDERS: Admitting Provider Internal Medicine; Emergency Provider Emergency Medicine; Visit Provider Physician Assistant | DX: J96.01 Acute respiratory failure with hypoxia (principal); N18.6 End stage renal disease; E87.79 Other fluid overload; E87.21 Acute metabolic acidosis; E11.65 Type 2 diabetes mellitus with hyperglycemia; E66.01 Morbid (severe) obesity due to excess calories; Z99.2 Dependence on renal dialysis; Z91.15 Patient's noncompliance with renal dialysis | CPT/HCPCS: 99223; 99239; 99499 ==

== ENCOUNTER 2025-07-30 11:46 | Inpatient (IN) | payer MEDICARE, MEDICAID, SELFPAY ==
--- OUTSIDE RECORDS SUMMARY | 2022-07-01 07:00 | XMS_ITS | Continuity of Care Document ---
Author Organization [facility] Address [address] [address] Phone Care Team Providers Care In House Counsel Name Role Phone Caleb URBINA, Fiona Unavailable Unavailable Advance Directives Directive Yes / No Effective Date File Name No Information Encounters Encounter Description Practice Location Reason(s) For Visit Diagnoses Date Provider [facility], [address], [id number], [place] tel:[phone] [facility] No Information 2021 Caleb Jaimes. [address] [place], [place], [id number], [place]. tel:[phone] Family History Family Member Type Diagnosis Age At Onset No Information Payers Payer name Insurance type Covered green party ID Authoriza tion(s) No Information Social History Type Description Quantity Date Captured Comments Sex Female Smoking Status No Information Chief Complaint And Reason For Visit No Information History Of Present Illness Encounter Date Complaint History Of Prese nt Illness No Information Instructions Date Instruction Additional Infor mation No Information Assessments Type Assessment Date No Information
--- NOTE | ~2025-07-30 | CT_ITS ---
EXAMINATION: CT ABDOMEN AND PELVIS WITHOUT CONTRAST CLINICAL INFORMATION: Right lower quadrant pain, tender mass below pannus/above the vagina. COMPARISON: 06/16/2025, 06/10/2025. TECHNIQUE: Multidetector volumetric imaging was performed from the superior aspect of the liver through the pubic symphysis. Sagittal and coronal reformatted images were obtained on the technologist's workstation. This CT examination was performed using dose optimization techniques as appropriate, variously including the following: *Automated exposure control *Adjustment of mA and/or kV according to patient size (this includes techniques or standardized protocols for targeted exams where dose is matched to indication/reason for exam; i.e. extremities or head) *Use of iterative reconstruction technique FINDINGS: LUNG BASES: Imaged lung bases demonstrate minor atelectasis in the left base. There is no effusion. LIVER, GALLBLADDER, AND BILIARY TREE: The hepatic dome was excluded from the exam. The unenhanced liver demonstrates mildly hypertrophied caudate lobe, and macro nodularity suggesting underlying cirrhosis. No discrete lesion identified on this exam. No biliary ductal dilatation is present. The gallbladder is unremarkable with no evidence of radiopaque gallstones, gallbladder wall thickening, or obvious pericholecystic inflammatory changes. PANCREAS: Moderate to severe pancreatic atrophy is present. SPLEEN: Unremarkable. ADRENAL GLANDS: There is a stable 1.9 x 2.0 cm right adrenal low attenuating mass, consistent with a myelolipoma. Left adrenal is normal. KIDNEYS AND URETERS: There is diffuse cortical thinning of both kidneys suggesting chronic kidney disease. There is no hydronephrosis or hydroureter. There is no suspicious renal mass allowing for noncontrast technique. There are numerous tiny calcifications in the renal ministerio bilaterally, most likely related to vascular calcifications as opposed to renal calculi. BLADDER: Unremarkable. GASTROINTESTINAL TRACT: The stomach is decompressed. The duodenum is normal. The small bowel is normal in caliber and course. No CT evidence of appendicitis. The colon is normal in caliber, course, and appearance. There is mild diverticulosis of the sigmoid without wall thickening or inflammation. There is no rectal abnormality. ABDOMINAL WALL: Morbid obesity with 2 multilevel abdominal pannus and a pelvic pannus. There is edema within both pannus, with associated skin thickening. There is a small fat-containing umbilical hernia. There is no discrete mass or discrete fluid collection in the abdominal or pelvic wall, as queried in the indication of the exam. LYMPH NODES: There is no abnormal lymphadenopathy present. VASCULAR: There is moderate to heavy calcification of the small arteries, aorta and iliac vessels. There is no aneurysm. PELVIC VISCERA: There are calcified vessels in the periphery of the uterus. The uterus and adnexal structures are otherwise normal. OSSEOUS STRUCTURES: There is no suspicious lytic or blastic bone lesion. There are degenerative changes throughout the spine, and bilateral SI joints. CT/CT abdomen pelvis wo IV con IMPRESSION: 1. There is no acute finding in the abdomen or pelvis. 2. Morbid obesity. There is both an abdominal pannus, and pelvic pannus. There is subcutaneous edema and skin thickening involving both the pannuses. Findings may be related to cellulitis. There is no specific abdominal wall mass, formed fluid collection, significant hernia, or other abnormality to account for the indication being questioned. 3. There are numerous ancillary findings as discussed in the body of the report, which are stable from prior examinations. Electronically signed by: Alcon Barrera MD 07/30/2025 03:15 PM [facility]
[2025-07-30 12:06] VITALS: BP 180/80; PULSE 61; O2SAT 99
[2025-07-30 12:28] VITALS: BP 147/50; PULSE 60; RESP 16; TEMP 36.5; O2SAT 100; BMI 56.5
--- NOTE | 2025-07-30 12:33 | MHC.EDTECH ---
pt fully changed over into hospital gown, assisted on bed mathis for urine output, skin looks clean, dry, negative erythema noted
--- NOTE | 2025-07-30 12:33 | PC.NURSE ---
Pt roomed changed and placed on 08/[address] as baseline at 2LPM N/C. Pt VSS, painicuar area very enlarged and laying between legs- pt states grew really big over weekend . Pt can't close legs and is concerned. Are with intact skin, no excess redness compared to abdomen.
--- NOTE | 2025-07-30 12:37 | PC.NURSE ---
Pt also reports that [facility] told her she had vaginal DC this am during AM care-
[2025-07-30 13:13] LABS: MANUAL DIFF FLAG NO
[2025-07-30 13:15] LABS: Hematocrit 28.5 % (37.0-47.0); Hemoglobin 9.2 g/dl (12.0-16.0); Imm Gran Abs Auto 0.02 X10*3/uL (0.00-0.03); Imm Gran Pct Auto 0.3 % (0.0-0.4); Lymphocytes Absolute Auto 0.9 X10*3/uL (1.2-4.9); Mean Corpuscular HGB Conc 32.3 g/dl (31.0-35.0); Mean Corpuscular Hemoglobin 31.1 pg (27.0-33.0); Mean Corpuscular Volume 96.3 fL (80.0-98.0); NRBC Abs Auto 0.000 X10*3/uL (0.0-0.012); NRBC Pct Auto 0.0 /100WBC (0.0-0.2); Platelet Count 156 X10*3/uL (160-400); Red Blood Count 2.96 X10*6/uL (4.20-5.50); White Blood Count 7.2 X10*3/uL (4.8-10.8)
[2025-07-30 13:16] LABS: Appearance Urine Cloudy; Glucose Urine UA 500 mg/dL (Negative); PH 5.0 (5.0-9.0); Specific Gravity - Urine 1.015 (1.005-1.025); UMIC TRIGGER UACC YES
[2025-07-30 13:36] LABS: UACC Culture Trigger YES
--- NOTE | 2025-07-30 13:37 | ED_ITS ---
HPI - General Adult General Chief complaint: General Medical Stated complaint: WOUND IN GROIN PAIN PER EMS Time Seen by Provider: 07/30/25 13:37 Source: patient Mode of arrival: EMS Limitations: no limitations History of Present Illness ED Provider: Dr. Lester Link HPI narrative: 64-year-old female with past medical history significant for ESRD dialyzed on Wednesday, Wednesday and Fridays, morbid obesity, recurrent E coli ESBL, type 2 diabetes mellitus,, HLD, HTN, chronic pain/neuropathy who presented to the ED for evaluation of expanding mass below her pannus. Patient states that the mass has been growing slowly over weeks to months. She states over the last 1-2 weeks the mass is significantly larger, painful and warm to the touch. She is also complaining of pain in her right lower area of her abdomen. States that has area is hard and warm to the touch. The patient denied fever but has been experiencing chills. She had denied chest pain shortness of breath. Patient had nausea with no vomiting or diarrhea. Patient states she missed dialysis on Wednesday and also missed dialysis today. Patient was recently admitted at [facility] from 07/09/2025 until 07/17/2025. She was admitted for acute respiratory failure with hypoxia, and acute on chronic kidney injury. Related Data Home Medications ?Medication ?Instructions ?Recorded ?Confirmed nystatin 100,000 unit/gram topical 1 appl topical TID PRN Rash 07/11/22 07/30/25 cream insulin lispro 100 unit/mL See Protocol subcut TIDAC 1 09/08/24 07/30/25 subcutaneous solution (Humalog U-100 Insulin) pantoprazole 20 mg tablet,delayed 20 mg PO DAILY@0630 07/09/25 07/30/25 release triamcinolone acetonide 0.1 % 1 appl topical TID PRN D iabetic 07/09/25 07/30/25 topical ointment Psoriasis acetaminophen 325 mg tablet 650 mg PO Q4H PRN Pain (Sc mallory 07/30/25 07/30/25 Score 4-6) albuterol 90 mcg-budesonide 80 2 inh inhalation Q4H IL N Shortness 07/30/25 07/30/25 mcg/actuation HFA aerosol inhaler Of Breath/WHEEZE (Airsupra) bisacodyl 10 mg rectal suppository 10 mg IL DAILY PRN Constipation 07/30/25 07/30/25 polyethylene glycol 3350 17 17 g PO DAILY 07/30/2509/23 gram/dose oral powder (Miralax) sodium phosphates 19 gram-7 118 ml IL DAILY PRN Consti pation 07/30/25 07/30/25 gram/118 mL enema (Fleet Enema) Previous Rx's ?Medication ?Instructions ?Recorded blood sugar diagnostic #200 ea 12/05/21 blood sugar diagnostic (Accu-Chek #300 ea 12/05/21 Berna Plus test strips) hospital bed #1 ea 07/06/22 pen needle, diabetic 32 gauge x #100 ea 07/07/22 insulin syringe-needle U-100 1 mL #100 ea 07/08/22 30 gauge x 1/2 (BD Insulin Syringe Ultra-Fine) amlodipine 10 mg tablet 10 mg PO DAILY 30 days #30 t abs 06/11/25 docusate sodium 100 mg capsule 100 mg PO DAILY 30 days #30 caps 06/11/25 gabapentin 100 mg capsule 100 mg PO BID 30 days #60 ca ps 06/11/25 hydralazine 25 mg tablet 25 mg PO TID 30 days #30 tab s 06/11/25 insulin glargine 100 unit/mL (3 20 unit (0.2 mL) subcu t BEDTIME 30 06/11/25 mL) subcutaneous pen (Lant days #3 mL Solostar U-100 Insulin) ondansetron 4 mg disintegrating 4 mg translingual TIDA C PRN nausea 06/11/25 tablet 30 days #12 tabs oxybutynin chloride 15 mg 15 mg PO DAILY 30 days #30 t abs 06/11/25 tablet,extended release 24 hr ropinirole 0.25 mg tablet 0.25 mg PO BEDTIME 30 days # 30 tabs 06/11/25 sennosides 8.6 mg tablet (senna) 17.2 mg (2 x 8.6 mg) PO BEDTIME 30 06/11/25 days #30 tabs metoprolol tartrate 25 mg tablet 12.5 mg (1/2 x 25 mg) PO BID #60 06/21/25 tabs Allergies Allergy/AdvReac Type Severity Reaction Status Date / Time metformin (METFORMIN) Allergy Severe HIVES Verified 07/30/25 12:30 heparin Allergy Intermediate Itching Verified 07/30/25 12:30 canagliflozin (From Invokana) Allergy Hives Verified 07/30/25 12:30 Review of Systems 2 Review of Systems: Yes all other systems are reviewed and are negative FOR[facility]LY [facility] Past Medical History Medical History HTN (hypertension) HLD (hyperlipidemia) Frequent UTI Anemia Acute on chronic diastolic (congestive) heart failure Type 2 diabetes mellitus with obesity Clostridium difficile diarrhea Morbid obesity Detrusor dysfunction Bladder outlet obstruction Esophagitis CKD (chronic kidney disease) stage 4, GFR 15-29 ml/min Hypothyroidism IBS (irritable bowel syndrome) Surgical History History of tubal ligation Family History Family History Father Diabetes Mother Diabetes Hypertension Breast cancer Family/Other Breast cancer Uterine cancer Social History Social History Household Members: None Housing: Apartment Do you presently have visiting nurse or other home services: Yes Alcohol intake: never Comment: bedbound at baseline Patient Tobacco Use Status: Former Tobacco user e-Cigarette/Vaping Use: Never Used Second Hand Smoke Exposure: No Advance Directives Date on File: 03/18/23 service: No Current occupational status: disabled Cognitive needs: No Hearing needs: No Vision needs: Yes Physical Exam ED Vital Signs: Vital Signs - 24 hr 07/30/25 16:08 Temperature 97.6 F Pulse Rate 63 Respiratory Rate 15 Blood Pressure 183/84 H Pulse Oximetry 100 Oxygen Delivery Method Nasal Cannula Oxygen Flow Rate 3 BMI result Body Mass Index 57.9 Vital signs revealed an elevated blood pressure of 147/50 otherwise unremarkable Exam: General: Awake, alert in no distress, weight 158.7 kg, elevated BMI 56.5 kilograms/meters squared Head: Normocephalic, atraumatic EENT: PERRL, sclera and conjunctiva are normal, mouth with no erythema or exudates Neck: Supple, no adenopathy Lung: breath sounds symmetric, no wheezing, no rales and no rhonchi Chest: symmetric movement, nontender Heart: regular rate and rhythm, normal S1, S2 no murmurs or rubs Abdomen: The patient is morbidly obese, she has a large pannus, when I lift up the pannus she has a large soft tissue mass just above the vagina, the mass is warm to the touch with erythema in his significantly tender with minimal palpation she is also tender with palpation to her right abdominal wall and umbilical area, that has also erythema increased warmth to this area. Back: no vertebral tenderness, no CVAT Extremities: no deformities, moves all extremities symmetrically, no edema Neuro: Awake, alert, oriented, normal speech, cranial nerves 2-12 intact, moves all extremities symmetrically Psych: Pleasant, cooperative Medications Administered Generic Name Dose Route Start Last Admin Trade Name Freq PRN Reason Stop Dose Admin Amlodipine Besylate 10 mg 07/30/25 19:00 07/30/25 21:13 Amlodipine Besylate 10 Mg Tablet PO 10 mg DAILY KENTRELL Administration Protocol Gabapentin 100 mg 07/30/25 21:00 07/30/25 21:13 Gabapentin 100 Mg Capsule PO 100 mg BID KENTRELL Administration Hydralazine HCl 25 mg 07/30/25 21:00 07/30/25 21:13 Hydralazine Hcl 25 Mg Tablet PO 25 mg TID KENTRELL Administration Protocol Piperacillin Sod/Tazobactam 100 mls @ 200 mls/hr 07/31/25 03:00 07/31/25 03:30 Sod 4.5 gm/ Sodium Chloride IV Infused Q12H KENTRELL Infusion Insulin Glargine 20 unit 07/30/25 21:00 07/30/25 21:13 Insulin Glargine,Hum.Rec.Anlog 100 Unit/Ml 10 Ml Vial SUBCUT 20 unit BEDTIME KENTRELL Administration Insulin Human Lispro 0 unit 07/30/25 21:00 07/31/25 06:59 Insulin Lispro 100 Unit/Ml 3 Ml Vial SUBCUT 8 unit QIDACHS KENTRELL Administration Protocol Metoprolol Tartrate 12.5 mg 07/30/25 21:00 07/30/25 21:48 Metoprolol Tartrate 12.5 Mg Halftab PO 12.5 mg BID KENTRELL Administration Protocol Nystatin 1 appl 07/30/25 18:49 07/30/25 21:48 Nystatin Cream 15 Gm Tube TOPICAL 1 appl TID PRN Administration Rash Protocol Pantoprazole Sodium 20 mg 07/31/25 06:30 07/31/25 07:00 Pantoprazole Sodium 20 Mg Tablet. PO 20 mg DAILY@0630 KENTRELL Administration Ropinirole HCl 0.25 mg 07/30/25 21:00 07/30/25 21:48 Ropinirole Hcl 0.25 Mg Tablet PO 0.25 mg BEDTIME KENTRELL Administration Senna 17.2 mg 07/30/25 21:00 07/30/25 21:14 Sennosides 8.6 Mg Tablet PO 17.2 mg BEDTIME KENTRELL Administration Sodium Chloride 3 ml 07/31/25 00:00 07/31/25 12:09 0.9 % Sodium Chloride Flush 3 Ml Syringe IVFLUSH Not Given QSHIFT [facility] Triamcinolone Acetonide 1 appl 07/30/25 18:49 07/30/25 21:48 Triamcinolone Acet 0.1 % Oint 15 Gm Tube TOPICAL 1 appl TID PRN Administration Diabetic Psoriasis Discontinued Medications Generic Name Dose Route Start Last Admin Trade Name Freq PRN Reason Stop Dose Admin Furosemide 40 mg 07/30/25 18:00 07/30/25 18:17 Furosemide 40 Mg/4 Ml Vial IVPUSH 40 mg BID@0900,1800 KENTRELL Administration Protocol Piperacillin Sod/Tazobactam 100 mls @ 200 mls/hr 07/30/25 15:56 07/30/25 17:50 Sod 4.5 gm/ Sodium Chloride IV 07/30/25 16:25 Infused ONCE ONE Infusion Vancomycin HCl 2,000 mg in 500 mls @ 250 mls/hr 07/30/25 16:32 07/30/25 21:25 Vancomycin/Ns IV 07/30/25 18:31 Infused ONCE ONE Infusion Insulin Human Lispro 10 unit 07/30/25 14:57 07/30/25 15:02 Insulin Lispro 100 Unit/Ml 3 Ml Vial SUBCUT 07/30/25 14:58 10 unit ONCE ONE Administration Medical Decision Making Medical Decision Making MDM Narrative: 64-year-old female with past medical history significant for ESRD dialyzed on Wednesday, Wednesday and Fridays, morbid obesity, recurrent E coli ESBL, type 2 diabetes mellitus,, HLD, HTN, chronic pain/neuropathy who presented to the ED for evaluation of expanding mass below her pannus. Patient states that the mass has been growing slowly over weeks to months. She states over the last 1-2 weeks the mass is significantly larger, painful and warm to the touch. She is also complaining of pain in her right lower area of her abdomen. States that has area is hard and warm to the touch. The patient denied fever but has been experiencing chills. She had denied chest pain shortness of breath. Patient had nausea with no vomiting or diarrhea. Patient states she missed dialysis on Wednesday and also missed dialysis today. Vital signs revealed an elevated blood pressure otherwise unremarkable. Physical examination revealed a large pannus with a large soft mass under the pannus just above the vagina. This soft mass was tender to palpation, slightly warm to touch with erythema. d. Patient also had right lower quadrant tenderness. Differential diagnosis: ?Includes but is not limited to hernia, extra pannus, pancreatitis, appendicitis, diverticulitis, fluid overload, acute on chronic renal failure, anemia, electrolyte abnormalities Course: 15:58 hours My independent interpretation of the patient's laboratory evaluation is as follows: WBC normal 7200. Chronic normocytic anemia with an H&H of 9.2 and 28.5. Sodium low 132. Bicarb low 20. BUN elevated 76 with an elevated creatinine of 4.15. Glucose elevated 324. Alk-phos elevated 135. Pro BNP elevated 5952.3. Urine was positive for protein, glucose, leukocyte esterase. Microscopic revealed 0-2 RBCs, 11-20 WBCs, 6-10 squamous cells, trace bacteria. CT scan of the abdomen pelvis revealed no acute findings. The mass beneath her abdominal pannus is a pelvic pannus with no obvious hernia. There is subcutaneous edema and skin thickening involving both the pannuses which could be consistent with cellulitis with no specific abdominal wall mass or fluid collection. Given the finding possible cellulitis of the pannus and abdominal wall, I ordered blood cultures x2, lactic acid and Zosyn 4.5 g IV. I will talk to the covering harvest manager so that this patient gave dialyzed tomorrow and I will also discuss admission with the covering hospitalist. 16:20 I did discuss the patient's presentation over tiger text with the covering hospitalist, Nurse Practitioner Edith Moreno. 17:36 The patient's harvest manager is Dr. Ash and I did discuss admission to the hospitalist service for cellulitis and made him aware that the patient may need dialysis tomorrow. Differential Diagnosis Differential Diagnoses: The differential diagnosis associated with the presentation includes (See above) Admission/Observation Consideration of admission/observation: Escalation of care including admission/observation considered (Yes) Lab Data MDM Lab Attestation statement: I reviewed the patient's lab results. 07/31/25 04:11 07/31/25 04:11 Labs: Lab Results 07/30/25 07/30/25 Range/Units 13:03 14:03 WBC 7.2 (4.8-10.8) X10*3/uL RBC 2.96 L (4.20-5.50) X10*6/uL Hgb 9.2 L (12.0-16.0) g/dl Hct 28.5 L (37.0-47.0) % MCV 96.3 (80.0-98.0) fL MCH 31.1 (27.0-33.0) pg MCHC 32.3 (31.0-35.0) g/dl RDW 14.8 (11.0-16.0) % Plt Count 156 L (160-400) X10*3/uL MPV 11.1 (9.4-12.3) fL Immature Gran % (Auto) 0.3 (0.0-0.4) % Neut % (Auto) 71.5 (45-73) % Lymph % (Auto) 12.7 L (20-40) % Butler % (Auto) 9.5 (2-11) % Eos % (Auto) 5.0 H (0-4) % Baso % (Auto) 1.0 (0-2) % Lymph # (Auto) 0.9 L (1.2-4.9) X10*3/uL Butler # (Auto) 0.7 (0.1-1.2) X10*3/uL Eos # (Auto) 0.4 (0.0-0.4) X10*3/uL Baso # (Auto) 0.1 (0.0-0.2) X10*3/uL Abs Immat Gran (auto) 0.02 (0.00-0.03) X10*3/uL Absolute Neuts (auto) 5.1 (2.0-8.3) x10*3/uL Absolute Nucleated RBC 0.000 (0.0-0.012) X10*3/uL Nucleated RBC % (auto) 0.0 (0.0-0.2) /100WBC Sodium 132 L (135-145) mmol/L Potassium 4.9 (3.3-5.1) mmol/L Chloride 98 (96-108) mmol/L Carbon Dioxide 20 L (22-29) mmol/L Anion Gap 19 (12-20) BUN 76 H (9-16) mg/dL Creatinine 4.15 H* (0.5-1.4) mg/dL Estim Creat Clear Calc 20.6 Estimated GFR 11 Random Glucose 324 H (60-115) mg/dL Estimat Average Glucose 226 mg/dL Hemoglobin A1c % 9.5 H (<6.0) % Calcium 8.7 (8.4-10.2) mg/dL Total Bilirubin 0.5 (0.0-1.0) mg/dL AST 19 (5-31) U/L ALT 11 (0-31) U/L Alkaline Phosphatase 135 H (39-117) U/L C-Reactive Protein 2.44 H (< or = 0.50) mg/dL NT-Pro-B Natriuret Pep 5952.3 H (<300) pg/mL Total Protein 7.6 (6.5-8.0) g/dL Albumin 3.9 (3.5-5.0) g/dL Urine Color Yellow Urine Appearance Cloudy Urine pH 5.0 (5.0-9.0) Ur Specific Edroy 1.015 (1.005-1.025) Urine Protein 100 (2+) H (Neg-Trace) mg/dL Urine Glucose (UA) 500 H (Negative) mg/dL Urine Ketones Negative (Negative) mg/dL Urine Blood Negative (Negative) Urine Nitrite Negative (Negative) Ur Leukocyte Esterase Moderate (2+) H (Negative) Urine RBC 0-2 (0-2) /HPF Urine WBC 11-20 (0-5) /HPF Ur Squamous Epith Cells 6-10 (0-2) /HPF Urine Bacteria Trace (None Seen) Hyaline Casts 0-2 (0-2) /LPF Urine Yeast Present Radiology Impression Discussion of test interpretation with radiology: I have reviewed the radiologist's reading. Radiologist Impression: EXAMINATION: CT ABDOMEN AND PELVIS WITHOUT CONTRAST COMPARISON: 06/16/2025, 06/10/2025. FINDINGS: LUNG BASES: Imaged lung bases demonstrate minor atelectasis in the left base. There is no effusion. LIVER, GALLBLADDER, AND BILIARY TREE: The hepatic dome was excluded from the exam. The unenhanced liver demonstrates mildly hypertrophied caudate lobe, and macro nodularity suggesting underlying cirrhosis. No discrete lesion identified on this exam. No biliary ductal dilatation is present. The gallbladder is unremarkable with no evidence of radiopaque gallstones, gallbladder wall thickening, or obvious pericholecystic inflammatory changes. PANCREAS: Moderate to severe pancreatic atrophy is present. SPLEEN: Unremarkable. ADRENAL GLANDS: There is a stable 1.9 x 2.0 cm right adrenal low attenuating mass, consistent with a myelolipoma. Left adrenal is normal. KIDNEYS AND URETERS: There is diffuse cortical thinning of both kidneys suggesting chronic kidney disease. There is no hydronephrosis or hydroureter. There is no suspicious renal mass allowing for noncontrast technique. There are numerous tiny calcifications in the renal ministerio bilaterally, most likely related to vascular calcifications as opposed to renal calculi. BLADDER: Unremarkable. GASTROINTESTINAL TRACT: The stomach is decompressed. The duodenum is normal. The small bowel is normal in caliber and course. No CT evidence of appendicitis. The colon is normal in caliber, course, and appearance. There is mild diverticulosis of the sigmoid without wall thickening or inflammation. There is no rectal abnormality. ABDOMINAL WALL: Morbid obesity with 2 multilevel abdominal pannus and a pelvic pannus. There is edema within both pannus, with associated skin thickening. There is a small fat-containing umbilical hernia. There is no discrete mass or discrete fluid collection in the abdominal or pelvic wall, as queried in the indication of the exam. LYMPH NODES: There is no abnormal lymphadenopathy present. VASCULAR: There is moderate to heavy calcification of the small arteries, aorta and iliac vessels. There is no aneurysm. PELVIC VISCERA: There are calcified vessels in the periphery of the uterus. The uterus and adnexal structures are otherwise normal. OSSEOUS STRUCTURES: There is no suspicious lytic or blastic bone lesion. There are degenerative changes throughout the spine, and bilateral SI joints. CT/CT abdomen pelvis wo IV con IMPRESSION: 1. There is no acute finding in the abdomen or pelvis. 2. Morbid obesity. There is both an abdominal pannus, and pelvic pannus. There is subcutaneous edema and skin thickening involving both the pannuses. Findings may be related to cellulitis. There is no specific abdominal wall mass, formed fluid collection, significant hernia, or other abnormality to account for the indication being questioned. 3. There are numerous ancillary findings as discussed in the body of the report, which are stable from prior examinations. Electronically signed by: Alcon Barrera MD 07/30/2025 03:15 PM [facility] Critical Care Time Critical Care Time Critical Care Time: Yes Total Critical Care Time: 45 Attestation: Critical Care: The patient was critically ill with a high probability of imminent or life threatening deterioration. I spent greater than 30 minutes of discontinuous time evaluating the patient,delivering critical care at the bedside, discussing and evaluating pertinent data with consultants. Critical care time does not include time spent performing separately billable procedures or teaching. Total time spent performing critical care was 45 minutes. Discharge Plan Discharge Clinical Impression: Abdominal wall cellulitis, Abdominal pain, End stage chronic kidney disease Patient Disposition: Admitted As Inpatient Discharge Date/Time: 07/31/25 07:17
--- NOTE | 2025-07-30 13:39 | MHC.EDTECH ---
pt refused bloodwork at this time, RN made aware
[2025-07-30 14:38] LABS: Alanine Aminotransferase 11 U/L (0-31); Albumin Level 3.9 g/dL (3.5-5.0); Alkaline Phosphatase 135 U/L (39-117); Anion Gap 19 (12-20); Aspartate Amino Transferase 19 U/L (5-31); Blood Urea Nitrogen 76 mg/dL (9-16); Calcium 8.7 mg/dL (8.4-10.2); Carbon Dioxide 20 mmol/L (22-29); Chloride 98 mmol/L (96-108); Creatinine Clr Calc Pharmacy 20.6; Estimated Glomerular Filt Rate 11; Potassium 4.9 mmol/L (3.3-5.1); Sodium 132 mmol/L (135-145); Total Protein 7.6 g/dL (6.5-8.0)
--- NOTE | 2025-07-30 14:57 | PC.NURSE ---
Provider aware of elevated BS, new orders received.
[2025-07-30 15:51] VITALS: BMI 57.9
[2025-07-30 16:08] VITALS: BP 183/84; PULSE 63; RESP 15; TEMP 36.4; O2SAT 100
--- NOTE | 2025-07-30 16:18 | PC.NURSE ---
pct in room attempting blood culture draw now
--- OUTSIDE RECORDS SUMMARY | 2025-07-30 16:23 | XMS_ITS | Clinical Summary ---
Author Organization [facility] Address [address] [facility] [address] [place] [address] Phone Care Team Providers Care Service Team Leader Name Role Phone Terry Ochoa MD Primary Care Provider [phone] Allergies Active Allergy Reactions Criticality Noted Date [...] Encounters Date Type Department Care Team Description 07/20/2025 Treatment [facility], [address] [place] [address] Benita Garrison FNP-C End stage renal disease; Dependence on renal dialysis 07/20/2025 Orders Only [facility] [address] [place] [address] Alan Mccarthy MD 07/18/2025 Orders Only [facility] [address] [address] Alan Mccarthy MD 07/04/2025 Orders Only [facility] [address] [address] Alan Mccarthy MD 07/04/2025 Treatment [facility] [address] [place] [address] Benita Garrison FNP-C End stage renal disease; Dependence on renal dialysis 07/02/2025 Orders Only [facility] [address] [address] Alan Mccarthy MD 06/20/2025 Orders Only [facility] [address] [address] Alan Mccarthy MD 06/20/2025 Treatment [facility] [address] [place] [address] Benita Garrison FNP-C End stage renal disease; Dependence on renal dialysis 06/08/2025 Orders Only [facility] [address] [address] Alan Mccarthy MD 06/04/2025 Orders Only [facility] [address] [place] [address] Provider, Albert Ordering 05/11/2025 Orders Only [facility] [address] [address] Alan Mccarthy MD 05/11/2025 Treatment [facility] [address] [place] [address] Benita Garrison FNP-C End stage renal disease; [...] Exam 09/29/2020 Diabetes: Visual Foot Exam 09/29/2020 Influenza Vaccine (#1) 2025 2, 06/28/2020, 09/10/2016 Diabetes: Hemoglobin A1C 10/20/2025 025, 02/04/2022, 01/07/2022, Additional history exists Procedures Procedure Name Priority Date/Time Associated Diagnosis Comments SPECIAL CHEMISTRY Routine 07/20/2025 HEMATOLOGY Routine 07/18/2025 [facility] RESULTS Routine 07/04/2025 HD [...] 05/11/2025 CHEMISTRY Routine 05/11/2025 HEMATOLOGY Routine 05/11/2025 from Last 3 Months Results * (ABNORMAL) SPECIAL CHEMISTRY (07/20/2025) Only the most recent of3 resultswithin the time period is included. Hemoglobin A1C 8.0(H) 4.8 - 5.9 % [facility] 07/20/2025 07/21/2025 10: 55 AM EST Narrative [facility] - 07/21/2025 Unless otherwise specified, test(s) performed at: [facility], [address] [place] [id number] PLASTICS NURSE: Michael Fields M.D. For any questions, please call customer service at FREQUENCY:OTHER Resulting Agency Comment Specimen source: Blood us Alan Mccarthy MD LAB BLOOD BANK TEST ORDERABLE S Final Result [facility] See order comments or contact performing lab Unknown, [place] * (ABNORMAL) HEMATOLOGY (07/18/2025) Only the most recent of6 resultswithin the time period is included. Hemoglobin 9.6(L) 12.0 - 16.0 g/dL [facility] Hemoglobin x 3 28.8(L) 36.0 - 48.0 % [facility] 07/18/2025 07/19/2025 7:5 8 AM EST Narrative [facility] - 07/19/2025 Unless otherwise specified, test(s) performed at: [facility], [address] [place], [place] [id number] PLASTICS NURSE: Michael Fields M.D. For any questions, please call customer service at FREQUENCY:OTHER Resulting Agency Comment Specimen source: Blood Alan Mccarthy MD LAB BLOOD ORDERABLES Final Re sult Performing Organization Address City/[facility]/ZIP Co de Phone Number [facility] See order comments or contact performing lab Unknown, [place] * HD KINETICS (07/04/2025) Only the most recent of3 resultswithin the time period is included. % Urea Reduction 71 65 - 80 % [facility] 07/04/2025 07/05/2025 3:1 1 PM EST Narrative Resulting Agency Comment Specimen source: Plasma Alan Mccarthy MD LAB BLOOD ORDERABLES Final Re sult Performing Organization Address [facility] de Phone Number [facility] See order comments or contact performing lab Unknown, [place] * POST CHEMISTRY (07/04/2025) Only the most recent of3 resultswithin the time period is included. BUN Post Dialysis 17 6 - 19 mg/dL [facility] 07/04/2025 07/05/2025 3:1 1 PM EST Narrative [facility] - 07/05/2025 Unless otherwise specified, test(s) performed at: [facility], [address] [place] [id number] PLASTICS NURSE: Michael Fields M.D. For any questions, please call customer service at FREQUENCY:MONTHLY Resulting Agency Comment Specimen source: Plasma Alan Mccarthy MD LAB BLOOD ORDERABLES Final Re sult [facility] See order comments or contact performing lab Unknown, [place] * IMMUNO CHEMISTRY (07/04/2025) Only the most recent of4 resultswithin the time period is included. Hep B Surface Ag Negative Negative [facility] [...] Labs TIBC 191 185 - 515 mcg/dL [facility] Iron Saturation (TSat) 32 20 - 55 % [facility] 07/04/2025 07/05/2025 9:4 4 AM EST Narrative [facility] - 07/05/2025 Unless otherwise specified, test(s) performed at: [facility], [address] [place] [address] PLASTICS NURSE: Michael Fields M.D. For any questions, please call customer service at FREQUENCY:MONTHLY Resulting Agency Comment Specimen source: Serum Alan Mccarthy MD LAB BLOOD ORDERABLES Final Re sult [facility] See order comments or contact performing lab Unknown, [place] * [facility] Results (07/04/2025) Only the most recent of3 resultswithin the time period is included. [facility] WSTDKT/V 1.6 [facility] PCR 81.90 [facility] nPCR_HD 1.11 [facility] eKt/V ([place]) 1.29 [facility] eNPCR 1.01 [facility] eKdrt/V 1.39 [facility] spKt/V (Daugirdas II) 1.47 [facility] eKt/V Gotch 1.39 [facility] spKt/V Got 1.58 [facility] 07/04/2025 07/04/2025 [facility] Ordering Provider LAB BLOOD ORDERABLES Final Result [facility] Contact Performing lab Unknown, [place] * TRACE ELEMENTS (05/30/2025) Only the most recent of2 resultswithin the time period is included. Pathologist [facility] Aluminum <5 0 - 10 mcg/L [facility] Comment: This test was developed and its performance characteristics determined by [facility]. It has not been cleared or approved by the FDA. The laboratory is regulated under CLIA as qualified to perform high complexity testing. This test is used for clinical purposes. It should not be regarded as investigational or for research. 05/30/2025 05/31/2025 9:1 1 AM EDT Narrative [facility] - 05/31/2025 Unless otherwise specified, test(s) performed at: [facility], [address] [place] [address] PLASTICS NURSE: Michael Fields M.D. For any questions, please call customer service at FREQUENCY:MONTHLY Resulting Agency Comment Specimen source: Serum us Alan Mccarthy MD LAB BLOOD ORDERABLES Final Re sult [facility] See order comments or contact performing lab Unknown, [place] from Last 3 Months [place] [id number] [facility] Medicare Member Subscriber Plan / Payer (Ef fective 2022-Present) Name:Isabel Carcamo Relation to Subscriber:Self Name:Isabel Carcamo Payer ID:[id number] (NAIC) Type:Not on file Address: [place] [id number] [facility] [place] [id number] Care Teams Service Team Leader Relationship Specialty Start Date End Date Terry Ochoa MD [facility] [address] [place], [place] PCP - General Internal Medicine 07/21/23
--- OUTSIDE RECORDS SUMMARY | 2025-07-30 16:23 | XMS_ITS | Encounter Summary ---
Author Organization [facility] Address [address] [place] [address] Care Team Providers Care Client Service Executive Name Role Phone Terry Ochoa MD Primary Care Provider [phone] Encounter Details Date Type Department Care Team ([facility] st Contact Info) Description 11/17/2021 Orders Only [facility] REAL ESTATE ATTORNEY [address] [facility] [address] [place] [address] Lois Carreno MD [address] [place] [address] Social History Tobacco Use Types Packs/Day Years [...] of this encounter Procedures * Due to [facility] law, this organization might not be sharing negative HIV tests. Procedure Name Priority Date/Time Associated Diagnosis Comments THINPREP TIS PAP AND HPV RNA, HR E6/E7, TMA Routine 11/17/2021 4:35 PM EDT Screening for malignant neoplasm of cervix documented in this encounter Results * Due to [facility] law, this organization might not be sharing negative HIV tests. * THINPREP TIS PAP AND HPV RNA, HR E6/E7, TMA (11/17/2021 4:35 PM EDT) Clinical information Postmenopausal [facility] Date last menstrual period POSTMENOPAUSAL [facility] Date of previous PAP smear NONE GIVEN [facility] Date of previous biopsy NONE GIVEN [facility] Specimen source (Cvx/Vag) None given [facility] Statement of Adequacy (Cvx/Vag) Satisfactory for evaluation. Endocervical/correia sformation zone component present. [facility] Cytology, Pap Smear Negative for intraepithelial lesion or malignancy. [facility] Cytology study comment (Cvx/Vag) This Pap test has been evaluated with computer assisted technology. [facility] Accounts Receivable Processor (Cvx/Vag) [address](ASCP) CT screening location: [place] [address] [facility] COMMENT SEE NOTE [facility] Comment: EXPLANATORY NOTE: The Pap is a [...] HPV MRNA E6/E7 Not Detected Not Detected [facility] Comment: Methodology: Sr Risk Management Consultant-Mediated Amplification This assay detects E6/E7 viral messenger RNA (mRNA) from 14 high-risk HPV types (16,18,31,33,35,39,45,51,52,56,58,59,66,68). The analytical performance characteristics of this assay have been determined by [employer]. The modifications have not been cleared or approved by the FDA. This assay has been validated pursuant to the CLIA regulations and is used for clinical purposes. For additional information, please refer to http://education.[facility]/faq/EKS111u4 (This link if provided for information/ educational purposes only.) 11/17/2021 4:35 PM EDT 11/17/2021 9:57 PM EDT Narrative Resulting Agency Comment [id number] us Lois Carreno MD PATHOLOGY-INTERFACED Final Resul t Performing Organization Address City/State/[facility] Co de Phone Number [facility] [address] [place] [address] documented in this encounter Visit Diagnoses Diagnosis Screening for malignant neoplasm of cervix Screening for malignant neoplasm of the cervix documented in this encounter Care Teams Client Service Executive Relationship Specialty Start Date End Date Terry Ochoa MD [facility] [place] [address] [place] [address] PCP - General Internal Medicine 09/30/21 documented as of this encounter
--- OUTSIDE RECORDS SUMMARY | 2025-07-30 16:23 | XMS_ITS | Encounter Summary ---
Author Organization [facility] Address [address] [place] [address] Phone Care Team Providers Care Pediatric Urologist Name Role Phone Terry Ochoa MD Primary Care Provider [phone] Encounter Details Date Type Department Care Team (Late st Contact Info) Description 02/05/2021 Documentation Only [facility] [address] [place] [address] Tawny Churchill [place] Social History [...] 204 mg/dL BUN 36 mg/dL eGFR Non-Afr [place]i 30 eGFR 35 Sodium 141 mEq/L Potassium 4.5 mEq/L Chloride 111 Carbon Dioxide 18 mmol/L Calcium 8.5 mg/dL Phosphorus, Serum 4.4 mg/dL Albumin (Blood) 2.1 g/dL Creatinine 1.8 mg/dL Anion Gap 12 Blood specimen (specimen) 08/21/2020 Historical Provider LAB BLOOD ORDERABLES Alyssa l Result documented in this encounter Visit Diagnoses Not on filedocumented in this encounter Care Teams Pediatric Urologist Relationship Specialty Start Date End Date Terry Ochoa MD [address] [place], [place] PCP - General Internal Medicine 07/21/23 documented as of this encounter
--- OUTSIDE RECORDS SUMMARY | 2025-07-30 16:23 | XMS_ITS | Clinical Summary ---
Author Organization [facility] Address [address] [place] [address] Care Team Providers Care Industrial Cafeteria Manager Name Role Phone Terry Ochoa MD Primary Care Provider [phone] Allergies No known active allergies Medications amLODIPine [...] time each day Active epoetin silverio (PROCR[facility]/EPOGEN) 26322 UNIT/ML injection Inject 20,000 Units under the [...] Monovalent, 30 mcg/0.3 ml 08/13/2021 Covid-19, Vector-nr ([employer]), 0.5 Ml 01/29/2021 Covid-19, mRNA (Pfizer Pre [...] Zoster (Zostavax) Discontinued Procedures * Due to [employer] law, this organization might not be sharing [...] for evaluation. Endocervical/correia sformation zone component present. [facility] Cytology, Pap Smear Negative for intraepithelial lesion or malignancy. [facility] Cytology study comment (Cvx/Vag) This Pap test has been evaluated with computer assisted technology. [facility] Vacuum Cleaner Operator (Cvx/Vag) [address](ASCP) CT screening location: [place] [address] [facility] COMMENT SEE NOTE [facility] Comment: EXPLANATORY NOTE: The Pap is a [...] HPV MRNA E6/E7 Not Detected Not Detected [facility] Comment: Methodology: Glue Reel Operator-Mediated Amplification This assay detects E6/E7 viral messenger RNA (mRNA) from 14 high-risk HPV types (16,18,31,33,35,39,45,51,52,56,58,59,66,68). The analytical performance characteristics of this assay have been determined by [employer]. The modifications have not been cleared or approved by the FDA. This assay has been validated pursuant to the CLIA regulations and is used for clinical purposes. For additional information, please refer to http://education.[employer]/faq/MAK251a5 (This link if provided for information/ educational purposes only.) 11/17/2021 4:35 PM EDT 11/17/2021 9:57 PM EDT Narrative Resulting Agency Comment [id number] us Lois Carreno MD PATHOLOGY-INTERFACED Final Resul t [facility] [address] [place] [address] from Last 3 Months or Most Recently Relevant to Health Maintenance Insurance MEDICAID [employer] MEDICARE Care Teams Industrial Cafeteria Manager Relationship Specialty Start Date End Date Terry Ochoa MD [facility] [place] [address] [place] [address] PCP - General Internal Medicine 09/30/21
--- OUTSIDE RECORDS SUMMARY | 2025-07-30 16:23 | XMS_ITS ---
Author Organization [facility] [place] [facility] Care Team Providers Care Marriage Counselor Minister Name Role Phone Edil Mansfield Unavailable Unavailable Care Team Name Role Address Phone Organization Dates Edil Mansfield PCP [address] [facility], [place], [address] (Office): : [facility] 06/16/2024 - 04/04/2025 Mental Status Section Date Assessment Total Score Description 04/04/2025 BIMS 15 cognitively int act CAM 0 No delirium ind icated PHQ-9 11 moderate depres aline 03/06/2025 BIMS 15 cognitively int act CAM 0 No delirium ind icated PHQ-9 06 mild depression Insurance Providers Reason for Referral No Reasons for Referral Entered Social History Social History Observation Description Start Date End Date Code Code System Current Smoking Status Tobacco smoking consumption unknown [id number] SNOMED CT Sex Assigned At Female 1960 [address]6 [facility] Gender Identity Sexual Orientation
--- OUTSIDE RECORDS SUMMARY | 2025-07-30 16:23 | XMS_ITS | Clinical Summary ---
Author Organization [facility] Address [address] [place] [address] Phone Care Team Providers Care Gas Singer Name Role Phone Alexi Lynne MD Primary Care Provider [phone] Allergies Active Allergy Reactions Criticality Noted Date Comments Canagliflozin 05/30/2025 Metformin 05/30/2025 Encounters Date Type Department Care Team Description 05/30/2025 3:22 PM EDT - 05/30/2025 8:40 PM EDT Emergency [facility] Emergency [address] [place] [address] Dain Das MD Dizziness (Primary [...] LAB HEMETOLOGY METHOD 05/30/2025 5:47 PM EDT [facility] RBC 2.90(L) 3.80 - 4.80 M/mcL LAB HEMETOLOGY METHOD 05/30/2025 5:47 PM EDT [facility] Hemoglobin 9.5(L) 11.5 - 16.0 g/dL LAB HEMETOLOGY METHOD 05/30/2025 5:47 PM EDT [facility] Hematocrit 28.6(L) 35.0 - 47.0 % LAB HEMETOLOGY METHOD 05/30/2025 5:47 PM EDT [facility] MCV 97.3 79.0 - 98.0 FL LAB HEMETOLOGY METHOD 05/30/2025 5:47 PM EDT [facility] MCH 32.3(H) 27.0 - 32.0 pcg LAB HEMETOLOGY METHOD 05/30/2025 5:47 PM EDT [facility] MCHC 33.2 32.0 - 37.0 g/dL LAB HEMETOLOGY METHOD 05/30/2025 5:47 PM EDT [facility] RDW 13.6 11.0 - 15.0 % LAB HEMETOLOGY METHOD 05/30/2025 5:47 PM EDT [facility] Platelets 206 130 - 400 K/mcL LAB HEMETOLOGY METHOD 05/30/2025 5:47 PM EDT [facility] MPV 9.7 7.0 - 11.0 FL LAB HEMETOLOGY METHOD 05/30/2025 5:47 PM EDT [facility] NRBC 0.0 <1.0 % LAB HEMETOLOGY METHOD 05/30/2025 5:47 PM EDT [facility] NRBC Absolute 0.00 <0.10 K/mcL LAB HEMETOLOGY [facility] Neutrophils Relative 78.6 % LAB HEMETOLOGY METHOD 05/30/2025 5:47 PM EDT [facility] Lymphocytes Relative 11.6 % LAB HEMETOLOGY METHOD 05/30/2025 5:47 PM EDT [facility] Monocytes Relative 7.2 % LAB HEMETOLOGY METHOD 05/30/2025 5:47 PM EDT [facility] Eosinophils Relative 1.6 % LAB HEMETOLOGY METHOD 05/30/2025 5:47 PM EDT [facility] Basophils Relative 0.6 % LAB HEMETOLOGY METHOD 05/30/2025 5:47 PM EDT [facility] Immature Granulocytes Relative 0.4 % LAB HEMETOLOGY METHOD 05/30/2025 5:47 PM EDT [facility] Neutrophils Absolute 7.73(H) 1.50 - 7.00 K/[facility] LAB HEMETOLOGY METHOD 05/30/2025 5:47 PM EDT [facility] Lymphocytes Absolute 1.14 1.00 - 5.00 K/mcL LAB HEMETOLOGY METHOD 05/30/2025 5:47 PM EDT [facility] Monocytes Absolute 0.71 0.20 - 1.00 K/[facility] LAB HEMETOLOGY METHOD 05/30/2025 5:47 PM EDT [facility] Eosinophils Absolute 0.16 0.00 - 0.50 K/[facility] LAB HEMETOLOGY METHOD 05/30/2025 5:47 PM EDT [facility] Basophils Absolute 0.06 0.00 - 0.20 K/mcL LAB HEMETOLOGY METHOD 05/30/2025 5:47 PM EDT [facility] Immature Granulocytes Absolute 0.04(H) 0.00 - 0.03 K/mcL LAB HEMETOLOGY METHOD [facility]/30[facility] Blood Venous blood specimen / Unknown Venipuncture / Unknown 05/30/2025 5:24 PM EDT 05/30/2025 5:36 PM EDT us Dain Das MD LAB BLOOD ORDERABLES Final Resu lt [facility] [address] [place] [address], * (ABNORMAL) Basic Metabolic Panel (BMP) (05/30/2025 5:24 PM EDT) Sodium 136 133 - 145 mmol/L LAB CHEMISTRY METHOD 05/30/2025 6:05 PM EDT [facility] Potassium 3.8 3.5 - 5.5 [...] MD LAB BLOOD ORDERABLES Final Resu lt [facility] [address] [place] [address], [place] [phone] * 12-Lead ECG (05/30/2025 4:11 PM EDT) Ventricular Rate ECG 63 BPM [facility] Atrial Rate 63 BPM [facility] P-R Interval 144 ms [facility] QRS Duration 96 ms [facility] Q-T Interval 484 ms [facility] QTc 495 ms GEM[facility] P Wave [place] 18 degrees GEMUSE R [place] -40 degrees GEMUSE T [place] 18 degrees GEMUSE ECG Interpretation Normal sinus rhythm Left axis deviation Abnormal ECG No previous ECGs available Confirmed by ZEUS WELLS ([id number]) on 05/31/2025 5:46:40 PM [facility] 05/30/2025 4:11 PM EDT 05/31/2025 5:46 PM EDT us Dain Das MD ECG ORDERABLES Final Result [facility] from Last 3 Months Insurance [employer] MEDICARE MEDICAID - [place] Care Teams Gas Singer Relationship Specialty Start Date End Date Alexi Lynne MD [address] [place] [address] [address] [place] PCP - General Internal Medicine 05/30/25
--- NOTE | 2025-07-30 16:45 | PC.NURSE ---
assumed care of pt at 1530 report received from timmy VOSS
--- NOTE | 2025-07-30 17:05 | P.HPHOSP_ITS ---
History of Present Illness Date of Service: 07/30/25 Chief Complaint: pannus swelling/redness/pain This history was taken in [place] [facility] from the patient. 65yo with morbid obesity, DM2, ESRD on HD MWF, hx E. coli ESBL, HLD, HTN, chronic hypoxia on 2L O2, and chronic neuropathic pain currently undergoing STR at [facility] after admission here 07/09-07/11 and 07/16-07/17 for volume overload from missed HD. She presents with worsening severe pain of a large pelvic pannus that has been gotten more swollen and red over the last week. Endorses tactile fevers. No drainage of fluid from the pannus. The pannus feels hot to the touch. She is in such bad pain that she can't sit or put her legs together. As a result, she missed HD 07/27 and today, 07/30. In the ED, she was found to be hyperglycemic with glucose of 325 and was given 10 units of IV insulin. CT of the abdomen and pelvis showed both abdominal and pelvic pannus with subcutaneous edema and skin thickening involving the pelvic pannus and the abdominal wall consistent with cellulitis. She was given a dose of piperacillin-tazobactam. Also the patient complains of worsening swelling of her legs. Review of Systems 2 Review of Systems: Yes all other systems are reviewed and are negative [facility] Medical History HTN (hypertension) HLD (hyperlipidemia) Frequent UTI Anemia Acute on chronic diastolic (congestive) heart failure Type 2 diabetes mellitus with obesity Clostridium difficile diarrhea Morbid obesity Detrusor dysfunction Bladder outlet obstruction Esophagitis CKD (chronic kidney disease) stage 4, GFR 15-29 ml/min Hypothyroidism IBS (irritable bowel syndrome) Family History Father Diabetes Mother Diabetes Hypertension Breast cancer Family/Other Breast cancer Uterine cancer Surgical History History of tubal ligation Social History Household Members: None Housing: Apartment Do you presently have visiting nurse or other home services: No Alcohol intake: never Comment: bedbound at baseline Patient Tobacco Use Status: Former Tobacco user e-Cigarette/Vaping Use: Never Used Second Hand Smoke Exposure: No Advance Directives: Yes Advance Directives on File: Yes Advance Directives Date on File: 03/18/23 service: No Current occupational status: disabled Cognitive needs: No Hearing needs: No Vision needs: Yes Meds Allergies Allergy/AdvReac Type Severity Reaction Status Date / Time metformin (METFORMIN) Allergy Severe HIVES Verified 07/30/25 12:30 heparin Allergy Intermediate Itching Verified 07/30/25 12:30 canagliflozin (From Invokana) Allergy Hives Verified 07/30/25 12:30 Active Medications: Current Medications Acetaminophen (Acetaminophen 325 Mg Tablet) 650 mg PO Q6H PRN PRN Reason: Pain, Mild 1-3,fever,headache Calcium Carbonate (Calcium Carbonate 750 Mg Tab.Chew) 750 mg PO Q4H PRN PRN Reason: Heartburn Dextrose (Dextrose 50 % 25 Gm/50 Ml Syringe) 25 gm IVPUSH Q15M PRN; Protocol PRN Reason: per Hypoglycemia Standing Ord. Furosemide (Furosemide 40 Mg/4 Ml Vial) 40 mg IVPUSH BID@0900,1800 [facility]; Protocol Glucose (Glucose Gel 15 Gm Gel..Gram.) 15 gm PO Q15M PRN; Protocol PRN Reason: per Hypoglycemia Standing Ord. Vancomycin HCl (Vancomycin/Ns) 2,000 mg in 500 mls @ 250 mls/hr IV ONCE ONE Stop: 07/30/25 18:31 Insulin Human Lispro (Insulin Lispro 100 Unit/Ml 3 Ml Vial) 0 unit SUBCUT QIDAS [facility]; Protocol Magnesium Hydroxide (Milk Of Magnesia 30 Ml Oral.Susp) 30 ml PO DAILY PRN PRN Reason: Constipation Melatonin (Melatonin 3 Mg Tablet) 6 mg PO BEDTIME PRN PRN Reason: Insomnia Ondansetron HCl (Ondansetron Hcl 4 Mg/2 Ml Vial) 4 mg IVPUSH Q8H PRN PRN Reason: Nausea and Vomiting Pharmacy Consult (Consult Rx Vancomycin Dosing) 1 each MISCELLANE DAILY PRN PRN Reason: Consult order Sodium Chloride (0.9 % Sodium Chloride Flush 3 Ml Syringe) 3 ml IVFLUSH [facility] Home Medications ?Medication ?Instructions ?Recorded ?Confirmed ?Last Taken ?Type nystatin 100,000 unit/gram topical 1 appl topical TID PRN Rash 11/12/22 11/17/25 Unknown History cream insulin lispro 100 unit/mL See Protocol subcut TIDAC 1 09/08/24 07/16/25 07/08/25 History subcutaneous solution (Humalog U-100 Insulin) pantoprazole 20 mg tablet,delayed 20 mg PO DAILY@0630 07/09/25 07/16/25 07/09/25 History release triamcinolone acetonide 0.1 % 1 appl topical TID PRN D iabetic 07/09/25 07/16/25 Unknown History topical ointment Psoriasis Physical Exam 2 Vital Signs and Narrative: Vital Signs: Last Vital Signs Temp 97.6 F 07/30/25 16:08 Pulse 63 07/30/25 16:08 Resp 15 07/30/25 16:08 BP 183/84 H 07/30/25 16:08 Pulse Ox 100 07/30/25 16:08 O2 Del Method Nasal Cannula 07/30/25 16:08 O2 Flow Rate 3 07/30/25 16:08 Oxygen Flow Rate 2 07/30/25 12:28 BMI result Body Mass Index 57.9 Gen: in no acute distress HEENT: sclera anicteric, moist mucus membranes Neck: supple Lungs: diminished Heart: regular rate and rhythm, no murmurs Abd: soft, morbidly obese with abdominal and pelvic pannus, the latter with extensive induration and warmth and redness; no fluctuant collections Ext: 3+ bilateral pitting leg edema Skin: warm/well-perfused Neuro: alert and oriented x3, no focal findings Psych: appropriate affect Results Labs 07/30/25 13:03 07/30/25 14:03 Labs: Laboratory Results - last 24 hr 07/30/25 07/30/25 13:03 14:03 MCV 96.3 MCH 31.1 MCHC 32.3 RDW 14.8 Plt Count 156 L MPV 11.1 Immature Gran % (Auto) 0.3 Neut % (Auto) 71.5 Lymph % (Auto) 12.7 L Mckean % (Auto) 9.5 Eos % (Auto) 5.0 H Baso % (Auto) 1.0 Lymph # (Auto) 0.9 L Mckean # (Auto) 0.7 Eos # (Auto) 0.4 Baso # (Auto) 0.1 Abs Immat Gran (auto) 0.02 Absolute Neuts (auto) 5.1 Absolute Nucleated RBC 0.000 Nucleated RBC % (auto) 0.0 Anion Gap 19 Estim Creat Clear Calc 20.6 Estimated GFR 11 Random Glucose 324 H Estimat Average Glucose 226 Hemoglobin A1c % 9.5 H Calcium 8.7 Total Bilirubin 0.5 AST 19 ALT 11 Alkaline Phosphatase 135 H NT-Pro-B Natriuret Pep 5952.3 H Total Protein 7.6 Albumin 3.9 Urine Color Yellow Urine Appearance Cloudy Urine pH 5.0 Ur Specific Gray 1.015 Urine Protein 100 (2+) H Urine Glucose (UA) 500 H Urine Ketones Negative Urine Blood Negative Urine Nitrite Negative Ur Leukocyte Esterase Moderate (2+) H Urine RBC 0-2 Urine WBC 11-20 Ur Squamous Epith Cells 6-10 Urine Bacteria Trace Hyaline Casts 0-2 Urine Yeast Present Imaging Radiologist's Impressions: Impressions Abdomen/Pelvis CT 07/30/25 14:26 IMPRESSION: 1. There is no acute finding in the abdomen or pelvis. 2. Morbid obesity. There is both an abdominal pannus, and pelvic pannus. There is subcutaneous edema and skin thickening involving both the pannuses. Findings may be related to cellulitis. There is no specific abdominal wall mass, formed fluid collection, significant hernia, or other abnormality to account for the indication being questioned. 3. There are numerous ancillary findings as discussed in the body of the report, which are stable from prior examinations. Electronically signed by: Alcon Barrera MD 07/30/2025 03:15 PM [facility] Assessment and Plan (1) Panniculitis: Status: Acute Plan 65yo with morbid obesity, DM2, ESRD on HD MWF, hx E. coli ESBL, HLD, HTN, chronic hypoxia on 2L O2, and chronic neuropathic pain currently undergoing STR at [facility] after admission here 07/09-07/11 and 07/16-07/17 for volume overload from missed HD, presenting with swollen, painful, hot, red pelvic pannus; found to have panniculitis and abdominal wall cellultiis panniculitis/abdominal wall cellulitis - admit to M/S, give vancomycin + piperacillin-tazobactam, follow blood cultures ESRD, missed HD - consult Nephrology for HD; counselor marriage and family against missing HD volume overload - still makes urine; will give IV furosemide 40mg bid DM2 with hyperglycemia, A1c 9.3 - basal/bolus insulin HTN: amlodipine, hydralazine, metoprolol tartrate neuropathic pain: gabapentin VTE ppx: intolerant of heparin, will place SCDs dispo: STR code status: full I anticipate that the patient will stay at least 2 midnights as an inpatient in the hospital due to the above reasons. It is neither reasonable nor safe to care for them in a less acute setting. Quality Stroke Does the patient have a stroke diagnosis?: No VTE Prior VTE?: No VTE Risk Level:: Medical - moderate - high VTE Device Contraindication: N/A - Device Ordered VTE Drug Contraindication: N/A - Med Ordered
--- NOTE | 2025-07-30 17:06 | PHA.PROG ---
Admission Date/Time: July 30, 2025 16:36 Indication: SKIN Weight in k.8 kg Serum Creatinine - Last 168 Hours 07/30/25 14:03 Creatinine 4.15 H* Estimated CrCl and GFR - Last 168 Hours 07/30/25 14:03 Estim Creat Clear Calc 20.6 Estimated GFR 11 Vancomycin Loading Dose: 2000 Current Vancomycin Dosing Regimen: BASED ON LEVEL POST DIALYSIS Vancomycin Monitoring using AUC goal of 400 - 600 range with trough as surrogate marker: 482 Date and Time for next Vancomycin Level to be drawn: 11/30 @ 1600 IF ON SCHEDULE FOR MOWEFR. WILL CHANGE ONCE SCHEDULED Pharmacist Comments on Vancomycin Plan: Vancomycin dosing will take advantage of [employer] as a clinical decision support tool that uses Bayesian modeling to calculate individual patient's pharmacokinetic parameters and forecast the patient's drug concentration time course with the target goal AUC 24 range of 400 - 600 mg/L/hr.
--- NOTE | 2025-07-30 17:56 | PHA.MEDREC ---
Pharmacy Consult ? Medication Reconciliation Pharmacy has completed the medication reconciliation.MED REC COMPLETE, [facility]
[2025-07-30 18:01] LABS: Glucose, Whole Blood 305 mg/dL (60-115)
[2025-07-30] MEDS: Furosemide 40 MG/4 ML VIAL IVPUSH (18:17)
[2025-07-30] MEDS: vancomycin/NS 2,000 MG/500 ML PLAST..BAG 250 MG IV (18:18)
[2025-07-30 19:12] VITALS: BP 180/60; PULSE 65; RESP 22; TEMP 36.6; O2SAT 100
--- NOTE | 2025-07-30 19:52 | PC.NURSE ---
assumed care of pt. pt sitting up in bed, respirations even and unlabored. purewick placed for pt.
--- NOTE | 2025-07-30 19:56 | PC.NURSE ---
this RN reached out to pharmacy, they report actively working on verifying medications for pt.
[2025-07-30 21:13] VITALS: BP 180/60
[2025-07-30] MEDS: Insulin Glargine,Hum.rec.anlog 100 UNIT/ML 10 ML VIAL 20 UNIT SUBCUT (21:13)
[2025-07-30] MEDS: Metoprolol Tartrate 12.5 MG HALFTAB PO (21:48)
[2025-07-30] MEDS: Triamcinolone Acet 0.1 % Oint 15 GM TUBE 1 APPL TOPICAL (21:48)
--- NOTE | 2025-07-30 21:58 | PC.NURSE ---
POC of 372, awaititng insulin dose from provider per protocol.
[2025-07-30 21:59] LABS: Glucose, Whole Blood 372 mg/dL (60-115)
--- NOTE | 2025-07-30 22:16 | PC.NURSE ---
10 units of lispro per provider an protocol, 372 POC
[2025-07-30 22:34] VITALS: BP 146/51; PULSE 56; RESP 16; TEMP 36.9
[2025-07-31 00:11] VITALS: BP 150/65; PULSE 55; RESP 21; TEMP 36.7; O2SAT 100
[2025-07-31 00:53] LABS: Glucose, Whole Blood 372 mg/dL (60-115)
--- NOTE | 2025-07-31 04:39 | PC.NURSE ---
pt reports mild discomfort with movement underneath her abdomen. pt declined prescribed creams at this time but states she will et staff know if and when she would like to use it. Purewick in place.
[2025-07-31 05:11] LABS: Hematocrit 26.8 % (37.0-47.0); Hemoglobin 9.1 g/dl (12.0-16.0); Imm Gran Abs Auto 0.09 X10*3/uL (0.00-0.03); Imm Gran Pct Auto 1.1 % (0.0-0.4); Lymphocytes Absolute Auto 0.6 X10*3/uL (1.2-4.9); MANUAL DIFF FLAG SCAN; Mean Corpuscular HGB Conc 34.0 g/dl (31.0-35.0); Mean Corpuscular Hemoglobin 31.8 pg (27.0-33.0); Mean Corpuscular Volume 93.7 fL (80.0-98.0); NRBC Abs Auto 0.000 X10*3/uL (0.0-0.012); NRBC Pct Auto 0.0 /100WBC (0.0-0.2); PLT CLUMP 1; Red Blood Count 2.86 X10*6/uL (4.20-5.50); SCAN SMEAR FLAG 1
[2025-07-31 05:23] LABS: Anion Gap 20 (12-20); Blood Urea Nitrogen 80 mg/dL (9-16); Calcium 8.3 mg/dL (8.4-10.2); Carbon Dioxide 17 mmol/L (22-29); Chloride 100 mmol/L (96-108); Creatinine Clr Calc Pharmacy 21.3; Estimated Glomerular Filt Rate 11; Potassium 5.3 mmol/L (3.3-5.1); Sodium 132 mmol/L (135-145)
[2025-07-31 05:49] VITALS: BP 159/78; PULSE 58; RESP 21; TEMP 36.6; O2SAT 96
--- NOTE | 2025-07-31 06:10 | HO.NURTONUR ---
Isabel is a 65F full code who presented to the ED with severe pain in her pelvic pannus. patient noted to have large pelvic pannus that has been having increased swelling and redness x1week. patient is currently at STR. patient is dialysis MWF, missed on 07/27 and 07/30 due to pain. patient noted to be hyperglycemic in ED 325, given 10u ivp. CT abd pelvis showed abd/pannus with subcutaneous edema with skin thickening consistent with cellulitis. plan for admission for cellulitis IV abx ESRD nephrology consult due to missed HD volume overload IV lasix, patient still makes urine Hyperglycemia insulin protocol patient has IV RAC, alert and oriented x3. purewick in place.
[2025-07-31 06:18] LABS: Platelet Count 140 X10*3/uL (160-400); White Blood Count 7.9 X10*3/uL (4.8-10.8)
[2025-07-31 06:58] LABS: Glucose, Whole Blood 308 mg/dL (60-115)
[2025-07-31 07:22] VITALS: BP 168/70; PULSE 58; RESP 16; TEMP 36.1; O2SAT 100
--- NOTE | 2025-07-31 07:34 | PHA.PROG ---
Admission Date/Time: July 30, 2025 16:36 Indication:skin + skin structure Weight in k.8 kg Adjusted body weight in Kg: [place] body weight in Kg: Obesity Dosing Indication % IBW: BMI 57.9 Serum Creatinine - Last 168 Hours 07/30/25 07/31/25 07/31/25 14:03 04:11 04:11 Creatinine 4.15 H* Cancelled 4.08 H* Estimated CrCl and GFR - Last 168 Hours 07/30/25 07/31/25 07/31/25 14:03 04:11 04:11 Estim Creat Clear Calc 20.6 Cancelled 21.3 Estimated GFR 11 Cancelled 07/31/25 04:11 Estim Creat Clear Calc Estimated GFR 11 Vancomycin Loading Dose: 2000mg X1 Current Vancomycin Dosing Regimen: MWF post dialysis dosing Vancomycin Monitoring using AUC goal of 400 - 600 range with trough as surrogate marker: 10-15 trough Date and Time for next Vancomycin Level to be drawn: 08/02/25 Pharmacist Comments on Vancomycin Plan: Dialysis pt, to be dosed post dialysis. Vancomycin dosing will take advantage of [employer] as a clinical decision support tool that uses Bayesian modeling to calculate individual patient's pharmacokinetic parameters and forecast the patient's drug concentration time course with the target goal AUC 24 range of 400 - 600 mg/L/hr.
[2025-07-31 08:07] VITALS: BMI 58.1
--- NOTE | 2025-07-31 08:56 | HO.PM.IMPN ---
Subjective Subjective Date of Service: 07/31/25 Review of Systems Follow up panniculitis Still having pain Erythema is improved Physical Exam Exam: Exam: Appearing in no acute distress lung sounds are clear to auscultation heart regular rate rhythm, clear S1, S2 positive bowel sounds, abdomen is soft, large, mild erythema and edema to pubic bone neuro patient is alert x3, no focal deficits Vital Signs: Vital Signs: Last Vital Signs Temp 96.9 F 07/31/25 07:22 Pulse 58 07/31/25 07:22 Resp 16 07/31/25 07:22 BP 168/70 H 07/31/25 07:22 Pulse Ox 100 07/31/25 07:22 O2 Del Method Nasal Cannula 07/31/25 07:22 O2 Flow Rate 2 07/31/25 07:22 Oxygen Flow Rate 2 07/30/25 12:28 BMI result Body Mass Index 57.9 Objective Data Active Medications Acetaminophen (Acetaminophen 325 Mg Tablet) 650 mg PO Q6H PRN PRN Reason: Pain, Mild 1-3,fever,headache Amlodipine Besylate (Amlodipine Besylate 10 Mg Tablet) 10 mg PO DAILY [facility]; Protocol Last Admin: 07/30/25 21:13 Dose: 10 mg Documented By: BREANN Bisacodyl (Bisacodyl 10 Mg Supp.Rect) 10 mg CO DAILY PRN PRN Reason: Constipation Calcium Carbonate (Calcium Carbonate 750 Mg Tab.Chew) 750 mg PO Q4H PRN PRN Reason: Heartburn Dextrose (Dextrose 50 % 25 Gm/50 Ml Syringe) 25 gm IVPUSH Q15M PRN; Protocol PRN Reason: per Hypoglycemia Standing Ord. Docusate Sodium (Docusate Sodium 100 Mg Capsule) 100 mg PO DAILY [facility] Furosemide (Furosemide 40 Mg/4 Ml Vial) 40 mg IVPUSH BID@0900,1800 [facility]; Protocol Last Admin: 07/30/25 18:17 Dose: 40 mg Documented By: DAPHNEY Gabapentin (Gabapentin 100 Mg Capsule) 100 mg PO BID [facility] Last Admin: 07/30/25 21:13 Dose: 100 mg Documented By: BREANN Glucose (Glucose Gel 15 Gm Gel..Gram.) 15 gm PO Q15M PRN; Protocol PRN Reason: per Hypoglycemia Standing Ord. Hydralazine HCl (Hydralazine Hcl 25 Mg Tablet) 25 mg PO TID [facility]; Protocol Last Admin: 07/30/25 21:13 Dose: 25 mg Documented By: BREANN Piperacillin Sod/Tazobactam (Sod 4.5 gm/ Sodium Chloride) 100 mls @ 200 mls/hr IV Q12H [facility] Last Infusion: 07/31/25 03:30 Dose: Infused Documented By: BREANN Vancomycin HCl 500 mg/ Sodium (Chloride) 110 mls @ 110 mls/hr IV ONCE ONE Stop: 07/31/25 20:59 Insulin Glargine (Insulin Glargine,Hum.Rec.Anlog 100 Unit/Ml 10 Ml Vial) 20 unit SUBCUT BEDTIME [facility] Last Admin: 07/30/25 21:13 Dose: 20 unit Documented By: BREANN Insulin Human Lispro (Insulin Lispro 100 Unit/Ml 3 Ml Vial) 0 unit SUBCUT QIDACHS [facility]; Protocol Last Admin: 07/31/25 06:59 Dose: 8 unit Documented By: FRANCESCO Magnesium Hydroxide (Milk Of Magnesia 30 Ml Oral.Susp) 30 ml PO DAILY PRN PRN Reason: Constipation Melatonin (Melatonin 3 Mg Tablet) 6 mg PO BEDTIME PRN PRN Reason: Insomnia Metoprolol Tartrate (Metoprolol Tartrate 12.5 Mg Halftab) 12.5 mg PO BID [facility]; Protocol Last Admin: 07/30/25 21:48 Dose: 12.5 mg Documented By: BREANN Non-Formulary Medication (Albuterol-Budesonide [Airsupra]) 2 inhalation INHALE Q4H PRN PRN Reason: Shortness Of Breath/WHEEZE Nystatin (Nystatin Cream 15 Gm Tube) 1 appl TOPICAL TID PRN; Protocol PRN Reason: Rash Last Admin: 07/30/25 21:48 Dose: 1 appl Documented By: BREANN Ondansetron HCl (Ondansetron Hcl 4 Mg/2 Ml Vial) 4 mg IVPUSH Q8H PRN PRN Reason: Nausea and Vomiting Oxybutynin Chloride (Oxybutynin Chloride Er 5 Mg Tab.Er.24) 15 mg PO DAILY [facility] Pantoprazole Sodium (Pantoprazole Sodium 20 Mg Tablet.) 20 mg PO DAILY@0630 [facility] Last Admin: 07/31/25 07:00 Dose: 20 mg Documented By: FRANCESCO Pharmacy Consult (Consult Rx Vancomycin Dosing) 1 each MISCELLANE DAILY PRN PRN Reason: Consult order Polyethylene Glycol (Polyethylene Glycol 3350 17 Gm Powd.Pack) 17 gm PO DAILY [facility] Ropinirole HCl (Ropinirole Hcl 0.25 Mg Tablet) 0.25 mg PO BEDTIME [facility] Last Admin: 07/30/25 21:48 Dose: 0.25 mg Documented By: BREANN Senna (Sennosides 8.6 Mg Tablet) 17.2 mg PO BEDTIME [facility] Last Admin: 07/30/25 21:14 Dose: 17.2 mg Documented By: BREANN Sodium Biphosphate/Sodium Phosphate (Sodium Phosphate,[place]-Dibasic 133 Ml Enema) 118 ml CO DAILY PRN PRN Reason: Constipation Sodium Chloride (0.9 % Sodium Chloride Flush 3 Ml Syringe) 3 ml IVFLUSH QSHIFT [facility] Last Admin: 07/31/25 00:07 Dose: Not Given Documented By: BREANN Non-Admin Reason: recently flushed Triamcinolone Acetonide (Triamcinolone Acet 0.1 % Oint 15 Gm Tube) 1 appl TOPICAL TID PRN PRN Reason: Diabetic Psoriasis Last Admin: 07/30/25 21:48 Dose: 1 appl Documented By: BREANN Labs 07/31/25 04:11 07/31/25 04:11 Labs: Laboratory Results - last 24 hr 07/30/25 07/30/25 07/30/25 13:03 14:03 16:38 MCV 96.3 MCH 31.1 MCHC 32.3 RDW 14.8 Plt Count 156 L MPV 11.1 Immature Gran % (Auto) 0.3 Neut % (Auto) 71.5 Lymph % (Auto) 12.7 L [place] % (Auto) 9.5 Eos % (Auto) 5.0 H Baso % (Auto) 1.0 Lymph # (Auto) 0.9 L [place] # (Auto) 0.7 Eos # (Auto) 0.4 Baso # (Auto) 0.1 Abs Immat Gran (auto) 0.02 Absolute Neuts (auto) 5.1 Absolute Nucleated RBC 0.000 Nucleated RBC % (auto) 0.0 Smear Tech's Comments Anion Gap 19 Estim Creat Clear Calc 20.6 Estimated GFR 11 POC Glucose Random Glucose 324 H Estimat Average Glucose 226 Hemoglobin A1c % 9.5 H Lactic Acid 1.6 Calcium 8.7 Total Bilirubin 0.5 AST 19 ALT 11 Alkaline Phosphatase 135 H C-Reactive Protein 2.44 H NT-Pro-B Natriuret Pep 5952.3 H Total Protein 7.6 Albumin 3.9 Urine Color Yellow Urine Appearance Cloudy Urine pH 5.0 Ur Specific [place] 1.015 Urine Protein 100 (2+) H Urine Glucose (UA) 500 H Urine Ketones Negative Urine Blood Negative Urine Nitrite Negative Ur Leukocyte Esterase Moderate (2+) H Urine RBC 0-2 Urine WBC 11-20 Ur Squamous Epith Cells 6-10 Urine Bacteria Trace Hyaline Casts 0-2 Urine Yeast Present 07/30/25 07/30/25 07/31/25 17:59 21:55 00:49 MCV MCH MCHC RDW Plt Count MPV Immature Gran % (Auto) Neut % (Auto) Lymph % (Auto) [place] % (Auto) Eos % (Auto) Baso % (Auto) Lymph # (Auto) [place] # (Auto) Eos # (Auto) Baso # (Auto) Abs Immat Gran (auto) Absolute Neuts (auto) Absolute Nucleated RBC Nucleated RBC % (auto) Smear Tech's Comments Anion Gap Estim Creat Clear Calc Estimated GFR POC Glucose 305 H 372 H* 372 H* Random Glucose Estimat Average Glucose Hemoglobin A1c % Lactic Acid Calcium Total Bilirubin AST ALT Alkaline Phosphatase C-Reactive Protein NT-Pro-B Natriuret Pep Total Protein Albumin Urine Color Urine Appearance Urine pH Ur Specific [place] Urine Protein Urine Glucose (UA) Urine Ketones Urine Blood Urine Nitrite Ur Leukocyte Esterase Urine RBC Urine WBC Ur Squamous Epith Cells Urine Bacteria Hyaline Casts Urine Yeast 07/31/25 07/31/25 07/31/25 04:11 04:11 04:11 MCV 93.7 MCH 31.8 MCHC 34.0 RDW 14.5 Plt Count 140 L MPV 11.3 Immature Gran % (Auto) 1.1 H Neut % (Auto) 78.7 H Lymph % (Auto) 8.1 L [place] % (Auto) 8.3 Eos % (Auto) 3.0 Baso % (Auto) 0.8 Lymph # (Auto) 0.6 L [place] # (Auto) 0.7 Eos # (Auto) 0.2 Baso # (Auto) 0.1 Abs Immat Gran (auto) 0.09 H Absolute Neuts (auto) 6.2 Absolute Nucleated RBC 0.000 Nucleated RBC % (auto) 0.0 Smear Tech's Comments VERIFIED Anion Gap 20 Estim Creat Clear Calc Cancelled 21.3 Estimated GFR Cancelled 11 POC Glucose Random Glucose 349 H Estimat Average Glucose Hemoglobin A1c % Lactic Acid Calcium 8.3 L Total Bilirubin AST ALT Alkaline Phosphatase C-Reactive Protein NT-Pro-B Natriuret Pep Total Protein Albumin Urine Color Urine Appearance Urine pH Ur Specific [place] Urine Protein Urine Glucose (UA) Urine Ketones Urine Blood Urine Nitrite Ur Leukocyte Esterase Urine RBC Urine WBC Ur Squamous Epith Cells Urine Bacteria Hyaline Casts Urine Yeast 07/31/25 06:55 MCV MCH MCHC RDW Plt Count MPV Immature Gran % (Auto) Neut % (Auto) Lymph % (Auto) [place] % (Auto) Eos % (Auto) Baso % (Auto) Lymph # (Auto) [place] # (Auto) Eos # (Auto) Baso # (Auto) Abs Immat Gran (auto) Absolute Neuts (auto) Absolute Nucleated RBC Nucleated RBC % (auto) Smear Tech's Comments Anion Gap Estim Creat Clear Calc Estimated GFR POC Glucose 308 H Random Glucose Estimat Average Glucose Hemoglobin A1c % Lactic Acid Calcium Total Bilirubin AST ALT Alkaline Phosphatase C-Reactive Protein NT-Pro-B Natriuret Pep Total Protein Albumin Urine Color Urine Appearance Urine pH Ur Specific [place] Urine Protein Urine Glucose (UA) Urine Ketones Urine Blood Urine Nitrite Ur Leukocyte Esterase Urine RBC Urine WBC Ur Squamous Epith Cells Urine Bacteria Hyaline Casts Urine Yeast Assessment and Plan (1) HTN (hypertension): Status: Acute Plan 65 year old woman with morbid obesity, DM2, ESRD on HD MWF, hx E. coli ESBL, HLD, HTN, chronic hypoxia on 2L O2, and chronic neuropathic pain currently undergoing STR at [facility] after admission here 07/09-07/11 and 07/16-07/17 for volume overload from missed HD, presenting with swollen, painful, hot, red pelvic pannus; found to have panniculitis and abdominal wall cellultiis Panniculitis/abdominal wall cellulitis Continue vancomycin + piperacillin-tazobactam follow blood cultures Pain medication Elevation ESRD missed HD Follows with Dr. Ash DM2 with hyperglycemia, A1c 9.3 Sliding scale, ADA diet lantus HTN amlodipine, hydralazine, metoprolol tartrate Neuropathic pain gabapentin VTE ppx: intolerant of heparin, will place SCDs dispo: STR code status: full Quality Stroke Does the patient have a stroke diagnosis?: No VTE Prior VTE?: No VTE Risk Level:: Medical - moderate - high VTE Device Contraindication: N/A - Device Ordered VTE Drug Contraindication: N/A - Med Ordered
--- NOTE | 2025-07-31 11:33 | MHC.CM.PN ---
pt is from [facility] where she will return when dcd pt is a bed hold
[2025-07-31 14:03] LABS: Glucose, Whole Blood 191 mg/dL (60-115)
[2025-07-31] MEDS: 0.9 % Sodium Chloride Flush 3 ML SYRINGE IVFLUSH ×2 (14:11→20:57)
[2025-07-31 14:16] VITALS: BP 141/65; PULSE 61; RESP 16; TEMP 36.1; O2SAT 99
[2025-07-31 15:14] VITALS: BP 151/67; PULSE 62; RESP 19; TEMP 36.1; O2SAT 97
[2025-07-31 16:18] LABS: Glucose, Whole Blood 315 mg/dL (60-115)
[2025-07-31 19:16] VITALS: BP 171/73; PULSE 62; RESP 17; TEMP 36.3; O2SAT 99
[2025-07-31 20:24] LABS: Glucose, Whole Blood 319 mg/dL (60-115)
[2025-07-31] MEDS: Insulin Glargine,Hum.rec.anlog 100 UNIT/ML 10 ML VIAL 20 UNIT SUBCUT (20:56)
[2025-07-31] MEDS: Metoprolol Tartrate 12.5 MG HALFTAB PO (20:56)
[2025-08-01] MEDS: Triamcinolone Acet 0.1 % Oint 15 GM TUBE 1 APPL TOPICAL (02:46)
[2025-08-01 04:00] VITALS: BP 128/62; PULSE 61; RESP 16; TEMP 36; O2SAT 100
--- NOTE | 2025-08-01 07:11 | PC.RT ---
pt does not wear cpap at home . she only uses nocturnal oxygen at baseline 2-3 liters
[2025-08-01 07:38] VITALS: BP 141/62; PULSE 56; RESP 18; TEMP 36.2; O2SAT 100
[2025-08-01 07:43] LABS: Glucose, Whole Blood 312 mg/dL (60-115)
[2025-08-01] MEDS: oxyBUTYnin chloride ER 5 MG TAB.ER.24 15 MG PO (07:58)
[2025-08-01] MEDS: 0.9 % Sodium Chloride Flush 3 ML SYRINGE IVFLUSH ×3 (07:59→20:57)
[2025-08-01] MEDS: Metoprolol Tartrate 12.5 MG HALFTAB PO ×2 (07:59→20:56)
[2025-08-01 11:27] LABS: Glucose, Whole Blood 293 mg/dL (60-115)
--- NOTE | 2025-08-01 12:14 | HO.PM.IMPN ---
Subjective Subjective Date of Service: 08/01/25 Interval History: Patient seen and examined at bedside this morning, patient states that she is feeling better, panniculitis greatly improved, continues on IV antibiotics. Patient mentioned that she had dialysis done yesterday, however tomorrow there is no availability for dialysis to be done as an outpatient. Patient missed dialysis on Wednesday as she was in the ED. Plans on dialysis tomorrow. Review of Systems Review of Systems: Yes all other systems are reviewed and are negative Physical Exam Exam: Exam: General: AxOx3, on supplemental oxygen Head: AT/NC ENT: Moist mucous membranes Neck: supple CVS; RRR, S1 S2 normal Lungs: Clear bilateral breath sounds, no wheezes or crackles Abd: Soft non tender, non distended Ext: No edema and no calf tenderness MSK: moving all 4 limbs Skin: Panniculitis improved Psych: Cooperative with exam Neurology: no focal deficit Vital Signs: Vital Signs: Last Vital Signs Temp 97.2 F 08/01/25 07:38 Pulse 56 08/01/25 07:38 Resp 18 08/01/25 07:38 BP 141/62 H 08/01/25 07:38 Pulse Ox 100 08/01/25 07:38 O2 Del Method Nasal Cannula 08/01/25 07:38 O2 Flow Rate 2 08/01/25 07:38 Oxygen Flow Rate 2 07/30/25 12:28 BMI result Body Mass Index 58.1 Objective Data Active Medications Acetaminophen (Acetaminophen 325 Mg Tablet) 650 mg PO Q6H PRN PRN Reason: Pain, Mild 1-3,fever,headache Amlodipine Besylate (Amlodipine Besylate 10 Mg Tablet) 10 mg PO DAILY [facility]; Protocol Last Admin: 08/01/25 07:59 Dose: 10 mg Documented By: RIKY Bisacodyl (Bisacodyl 10 Mg Supp.Rect) 10 mg [place] DAILY PRN PRN Reason: Constipation Calcium Carbonate (Calcium Carbonate 750 Mg Tab.Chew) 750 mg PO Q4H PRN PRN Reason: Heartburn Dextrose (Dextrose 50 % 25 Gm/50 Ml Syringe) 25 gm IVPUSH Q15M PRN; Protocol PRN Reason: per Hypoglycemia Standing Ord. Docusate Sodium (Docusate Sodium 100 Mg Capsule) 100 mg PO DAILY [facility] Last Admin: 08/01/25 07:59 Dose: 100 mg Documented By: RIKY Gabapentin (Gabapentin 100 Mg Capsule) 100 mg PO BID [facility] Last Admin: 08/01/25 07:59 Dose: 100 mg Documented By: RIKY Glucose (Glucose Gel 15 Gm Gel..Gram.) 15 gm PO Q15M PRN; Protocol PRN Reason: per Hypoglycemia Standing Ord. Hydralazine HCl (Hydralazine Hcl 25 Mg Tablet) 25 mg PO TID [facility]; Protocol Last Admin: 08/01/25 07:59 Dose: 25 mg Documented By: RIKY Piperacillin Sod/Tazobactam (Sod 4.5 gm/ Sodium Chloride) 100 mls @ 200 mls/hr IV Q12H [facility] Last Infusion: 08/01/25 03:20 Dose: Infused Documented By: CHANO Vancomycin HCl 500 mg/ Sodium (Chloride) 110 mls @ 110 mls/hr IV ONCE ONE Stop: 07/31/25 20:59 Insulin Glargine (Insulin Glargine,Hum.Rec.Anlog 100 Unit/Ml 10 Ml Vial) 20 unit SUBCUT BEDTIME [facility] Last Admin: 07/31/25 20:56 Dose: 20 unit Documented By: ALIX Insulin Human Lispro (Insulin Lispro 100 Unit/Ml 3 Ml Vial) 0 unit SUBCUT QIDACHS [facility]; Protocol Last Admin: 08/01/25 11:40 Dose: 6 unit Documented By: RIKY Magnesium Hydroxide (Milk Of Magnesia 30 Ml Oral.Susp) 30 ml PO DAILY PRN PRN Reason: Constipation Melatonin (Melatonin 3 Mg Tablet) 6 mg PO BEDTIME PRN PRN Reason: Insomnia Metoprolol Tartrate (Metoprolol Tartrate 12.5 Mg Halftab) 12.5 mg PO BID [facility]; Protocol Last Admin: 08/01/25 07:59 Dose: 12.5 mg Documented By: RIKY Non-Formulary Medication (Albuterol-Budesonide [Airsupra]) 2 inhalation INHALE Q4H PRN PRN Reason: Shortness Of Breath/WHEEZE Nystatin (Nystatin Cream 15 Gm Tube) 1 appl TOPICAL TID PRN; Protocol PRN Reason: Rash Last Admin: 07/30/25 21:48 Dose: 1 appl Documented By: BREANN Ondansetron HCl (Ondansetron Hcl 4 Mg/2 Ml Vial) 4 mg IVPUSH Q8H PRN PRN Reason: Nausea and Vomiting Oxybutynin Chloride (Oxybutynin Chloride Er 5 Mg Tab.Er.24) 15 mg PO DAILY [facility] Last Admin: 08/01/25 07:58 Dose: 15 mg Documented By: RIKY Pantoprazole Sodium (Pantoprazole Sodium 20 Mg Tablet.) 20 mg PO DAILY@0630 [facility] Last Admin: 08/01/25 05:48 Dose: 20 mg Documented By: CHANO Pharmacy Consult (Consult Rx Vancomycin Dosing) 1 each MISCELLANE DAILY PRN PRN Reason: Consult order Polyethylene Glycol (Polyethylene Glycol 3350 17 Gm Powd.Pack) 17 gm PO DAILY [facility] Last Admin: 08/01/25 08:03 Dose: 17 gm Documented By: RIKY Ropinirole HCl (Ropinirole Hcl 0.25 Mg Tablet) 0.25 mg PO BEDTIME [facility] Last Admin: 07/31/25 20:56 Dose: 0.25 mg Documented By: ALIX Senna (Sennosides 8.6 Mg Tablet) 17.2 mg PO BEDTIME [facility] Last Admin: 07/31/25 20:56 Dose: 17.2 mg Documented By: ALIX Sodium Biphosphate/Sodium Phosphate (Sodium Phosphate,[place]-Dibasic 133 Ml Enema) 118 ml [place] DAILY PRN PRN Reason: Constipation Sodium Chloride (0.9 % Sodium Chloride Flush 3 Ml Syringe) 3 ml IVFLUSH QSHIFT [facility] Last Admin: 08/01/25 07:59 Dose: 3 ml Documented By: RIKY Triamcinolone Acetonide (Triamcinolone Acet 0.1 % Oint 15 Gm Tube) 1 appl TOPICAL TID PRN PRN Reason: Diabetic Psoriasis Last Admin: 08/01/25 02:46 Dose: 1 appl Documented By: ALIX Labs 07/31/25 04:11 07/31/25 04:11 Labs: Laboratory Results - last 24 hr 07/31/25 07/31/25 07/31/25 13:58 16:09 18:10 POC Glucose 191 H 315 H Random Vancomycin 13.0 L 07/31/25 08/01/25 08/01/25 20:11 07:37 11:13 POC Glucose 319 H 312 H 293 H Random Vancomycin Microbiology Microbiology Results: Microbiology 07/30/25 16:38 Blood Culture - Preliminary Blood - Venous No growth after 24 hours. 07/30/25 16:38 Blood Culture - Preliminary Blood - Venous No growth after 24 hours. 07/30/25 Unknown Urine Culture - Final Urine clean catch - Clean Catch Midstream Assessment and Plan (1) Uncontrolled type 2 diabetes mellitus with hyperglycemia: Status: Acute (2) ESRD (end stage renal disease) on dialysis: Status: Acute (3) Cellulitis: Status: Acute Plan Assessment: 65 year old woman with morbid obesity, DM2, ESRD on HD MWF, hx E. coli ESBL, HLD, HTN, chronic hypoxia on 2L O2, and chronic neuropathic pain currently undergoing STR at [facility] after admission here 07/09-07/11 and 07/16-07/17 for volume overload from missed HD, presenting with swollen, painful, hot, red pelvic pannus; found to have panniculitis and abdominal wall cellulitis, started on Vanco + Zosyn. Panniculitis/abdominal wall cellulitis, improving Imaging reviewed Continue vancomycin + piperacillin-tazobactam follow blood cultures Pain medication Elevation ESRD on dialysis, usually on MWF scheduled, however missed dose on wednesday. Follows with Dr. Ash continue w/ scheduled dialysis tomorrow. Chronic hypoxic respiratory failure -Continue supplemental oxygen for SpO2 greater than or equal to 90% DM2 with hyperglycemia, chronic, uncontrolled A1c 9.3 Sliding scale, ADA diet lantus HTN, chronic continue amlodipine, hydralazine, metoprolol tartrate, will monitor and adjust medications accordingly Neuropathic pain, likely multifactorial in setting of T2DM Continue gabapentin, patient on dialysis. VTE ppx: intolerant of heparin, will place SCDs dispo: STR code status: full Total time managing care of this patient today: 55 minutes. Quality Stroke Does the patient have a stroke diagnosis?: No VTE Prior VTE?: No VTE Risk Level:: Medical - moderate - high VTE Device Contraindication: N/A - Device Ordered VTE Drug Contraindication: N/A - Med Ordered
--- NOTE | 2025-08-01 14:42 | MHC.CM.PN ---
pt to retuirn to regl are when dcd
[2025-08-01 15:07] VITALS: BP 149/65; PULSE 57; RESP 17; TEMP 36.1; O2SAT 99
[2025-08-01 16:03] LABS: Glucose, Whole Blood 294 mg/dL (60-115)
--- NOTE | 2025-08-01 18:30 | HE.PHANOTE ---
RE: VANCO DOSING Post dialysis level is 14.2 mg/L. Hold dose, next trough is scheduled post dialysis 08/03/25 @1800.
[2025-08-01 19:10] VITALS: BP 143/63; PULSE 60; RESP 22; TEMP 36.7; O2SAT 99
--- NOTE | 2025-08-01 19:18 | P.CONNP_ITS ---
History of Present Illness Reason for Consult Consult date: 08/01/25 Reason for consult: ESRD and HD management Chief Complaint Chief complaint: panniculitis History of Present Illness Narrative: RTANE consulted for HD management In summary 65 year old woman with morbid obesity, DM2, ESRD on HD MWF, hx E. coli ESBL, HLD, HTN, chronic hypoxia on 2L O2, and chronic neuropathic pain currently undergoing STR at [facility] after admission here 07/09-07/11 and 07/16-07/17 for volume overload from missed HD, presenting with swollen, painful, hot, red pelvic pannus; found to have panniculitis and abdominal wall cellulitis, started on Vanco + Zosyn. Review of Systems Review of Systems Follow up panniculitis Still having pain Erythema is improved Yes all other systems are reviewed and are negative [facility] Past Medical History Medical History HTN (hypertension) HLD (hyperlipidemia) Frequent UTI Anemia Acute on chronic diastolic (congestive) heart failure Type 2 diabetes mellitus with obesity Clostridium difficile diarrhea Morbid obesity Detrusor dysfunction Bladder outlet obstruction Esophagitis CKD (chronic kidney disease) stage 4, GFR 15-29 ml/min Hypothyroidism IBS (irritable bowel syndrome) Family History Family History Father Diabetes Mother Diabetes Hypertension Breast cancer Family/Other Breast cancer Uterine cancer Surgical History Surgical History History of tubal ligation Social History Social History Household Members: None Housing: Apartment Do you presently have visiting nurse or other home services: Yes Alcohol intake: never Comment: bedbound at baseline Patient Tobacco Use Status: Former Tobacco user e-Cigarette/Vaping Use: Never Used Second Hand Smoke Exposure: No Advance Directives Date on File: 03/18/23 service: No Current occupational status: disabled Cognitive needs: No Hearing needs: No Vision needs: Yes Meds Allergies Allergy/AdvReac Type Severity Reaction Status Date / Time metformin (METFORMIN) Allergy Severe HIVES Verified 07/30/25 12:30 heparin Allergy Intermediate Itching Verified 07/30/25 12:30 canagliflozin (From Invokana) Allergy Hives Verified 07/30/25 12:30 Active Medications: Current Medications Acetaminophen (Acetaminophen 325 Mg Tablet) 650 mg PO Q6H PRN PRN Reason: Pain, Mild 1-3,fever,headache Amlodipine Besylate (Amlodipine Besylate 10 Mg Tablet) 10 mg PO DAILY [facility]; Protocol Last Admin: 08/01/25 07:59 Dose: 10 mg Bisacodyl (Bisacodyl 10 Mg Supp.Rect) 10 mg NJ DAILY PRN PRN Reason: Constipation Calcium Carbonate (Calcium Carbonate 750 Mg Tab.Chew) 750 mg PO Q4H PRN PRN Reason: Heartburn Dextrose (Dextrose 50 % 25 Gm/50 Ml Syringe) 25 gm IVPUSH Q15M PRN; Protocol PRN Reason: per Hypoglycemia Standing Ord. Docusate Sodium (Docusate Sodium 100 Mg Capsule) 100 mg PO DAILY [facility] Last Admin: 08/01/25 07:59 Dose: 100 mg Gabapentin (Gabapentin 100 Mg Capsule) 100 mg PO BID [facility] Last Admin: 08/01/25 07:59 Dose: 100 mg Glucose (Glucose Gel 15 Gm Gel..Gram.) 15 gm PO Q15M PRN; Protocol PRN Reason: per Hypoglycemia Standing Ord. Hydralazine HCl (Hydralazine Hcl 25 Mg Tablet) 25 mg PO TID [facility]; Protocol Last Admin: 08/01/25 14:58 Dose: 25 mg Piperacillin Sod/Tazobactam (Sod 4.5 gm/ Sodium Chloride) 100 mls @ 200 mls/hr IV Q12H [facility] Last Infusion: 08/01/25 16:12 Dose: Infused Vancomycin HCl 500 mg/ Sodium (Chloride) 110 mls @ 110 mls/hr IV ONCE ONE Stop: 07/31/25 20:59 Insulin Glargine (Insulin Glargine,Hum.Rec.Anlog 100 Unit/Ml 10 Ml Vial) 20 unit SUBCUT BEDTIME [facility] Last Admin: 07/31/25 20:56 Dose: 20 unit Insulin Human Lispro (Insulin Lispro 100 Unit/Ml 3 Ml Vial) 0 unit SUBCUT QIDACHS [facility]; Protocol Last Admin: 08/01/25 16:21 Dose: 6 unit Magnesium Hydroxide (Milk Of Magnesia 30 Ml Oral.Susp) 30 ml PO DAILY PRN PRN Reason: Constipation Melatonin (Melatonin 3 Mg Tablet) 6 mg PO BEDTIME PRN PRN Reason: Insomnia Metoprolol Tartrate (Metoprolol Tartrate 12.5 Mg Halftab) 12.5 mg PO BID [facility]; Protocol Last Admin: 08/01/25 07:59 Dose: 12.5 mg Non-Formulary Medication (Albuterol-Budesonide [Airsupra]) 2 inhalation INHALE Q4H PRN PRN Reason: Shortness Of Breath/WHEEZE Nystatin (Nystatin Cream 15 Gm Tube) 1 appl TOPICAL TID PRN; Protocol PRN Reason: Rash Last Admin: 07/30/25 21:48 Dose: 1 appl Ondansetron HCl (Ondansetron Hcl 4 Mg/2 Ml Vial) 4 mg IVPUSH Q8H PRN PRN Reason: Nausea and Vomiting Oxybutynin Chloride (Oxybutynin Chloride Er 5 Mg Tab.Er.24) 15 mg PO DAILY [facility] Last Admin: 08/01/25 07:58 Dose: 15 mg Pantoprazole Sodium (Pantoprazole Sodium 20 Mg Tablet.) 20 mg PO DAILY@0630 [facility] Last Admin: 08/01/25 05:48 Dose: 20 mg Pharmacy Consult (Consult Rx Vancomycin Dosing) 1 each MISCELLANE DAILY PRN PRN Reason: Consult order Polyethylene Glycol (Polyethylene Glycol 3350 17 Gm Powd.Pack) 17 gm PO DAILY [facility] Last Admin: 08/01/25 08:03 Dose: 17 gm Ropinirole HCl (Ropinirole Hcl 0.25 Mg Tablet) 0.25 mg PO BEDTIME [facility] Last Admin: 07/31/25 20:56 Dose: 0.25 mg Senna (Sennosides 8.6 Mg Tablet) 17.2 mg PO BEDTIME [facility] Last Admin: 07/31/25 20:56 Dose: 17.2 mg Sodium Biphosphate/Sodium Phosphate (Sodium Phosphate,[place]land-Dibasic 133 Ml Enema) 118 ml NJ DAILY PRN PRN Reason: Constipation Sodium Chloride (0.9 % Sodium Chloride Flush 3 Ml Syringe) 3 ml IVFLUSH QSHIFT [facility] Last Admin: 08/01/25 15:01 Dose: 3 ml Triamcinolone Acetonide (Triamcinolone Acet 0.1 % Oint 15 Gm Tube) 1 appl TOPICAL TID PRN PRN Reason: Diabetic Psoriasis Last Admin: 08/01/25 02:46 Dose: 1 appl Home Medications ?Medication ?Instructions ?Recorded ?Confirmed ?Last Taken ?Type nystatin 100,000 unit/gram topical 1 appl topical TID PRN Rash 07/11/22 07/30/25 Unknown History cream insulin lispro 100 unit/mL See Protocol subcut TIDAC 1 09/08/24 07/30/25 07/08/25 History subcutaneous solution (Humalog U-100 Insulin) pantoprazole 20 mg tablet,delayed 20 mg PO DAILY@0630 07/09/25 07/30/25 07/09/25 History release triamcinolone acetonide 0.1 % 1 appl topical TID PRN D iabetic 07/09/25 07/30/25 Unknown History topical ointment Psoriasis acetaminophen 325 mg tablet 650 mg PO Q4H PRN Pain (Sc mallory 07/30/25 07/30/25 Unknown History Score 4-6) albuterol 90 mcg-budesonide 80 2 inh inhalation Q4H NJ N Shortness 07/30/25 07/30/25 Unknown History mcg/actuation HFA aerosol inhaler Of Breath/WHEEZE (Airsupra) bisacodyl 10 mg rectal suppository 10 mg NJ DAILY PRN Constipation 07/30/25 07/30/25 Unknown History polyethylene glycol 3350 17 17 g PO DAILY 07/30/2509/23 Unknown History gram/dose oral powder (Miralax) sodium phosphates 19 gram-7 118 ml NJ DAILY PRN Consti pation 07/30/25 07/30/25 Unknown History gram/118 mL enema (Fleet Enema) Physical Exam Vital Signs: Last Vital Signs Temp 98.0 F 08/01/25 19:10 Pulse 60 08/01/25 19:10 Resp 22 H 08/01/25 19:10 BP 143/63 H 08/01/25 19:10 Pulse Ox 99 08/01/25 19:10 O2 Del Method Nasal Cannula 08/01/25 19:10 O2 Flow Rate 2 08/01/25 19:10 Oxygen Flow Rate 2 07/30/25 12:28 BMI result Body Mass Index 58.1 Results Lab Results 07/31/25 04:11 07/31/25 04:11 Lab results: Chemistry 07/30/25 07/31/25 07/31/25 14:03 04:11 04:11 Sodium 132 L 132 L Potassium 4.9 5.3 H Carbon Dioxide 20 L 17 L BUN 76 H 80 H Creatinine 4.15 H* Cancelled 4.08 H* Calcium 8.7 8.3 L Hematology 07/30/25 07/31/25 13:03 04:11 WBC 7.2 7.9 Hgb 9.2 L 9.1 L Plt Count 156 L 140 L Urinalysis 07/30/25 13:03 Urine Color Yellow Urine Appearance Cloudy Urine pH 5.0 Ur Specific [place] 1.015 Urine Protein 100 (2+) H Urine Glucose (UA) 500 H Urine Ketones Negative Urine Blood Negative Urine Nitrite Negative Ur Leukocyte Esterase Moderate (2+) H Urine RBC 0-2 Urine WBC 11-20 Ur Squamous Epith Cells 6-10 Hyaline Casts 0-2 Assessment and Plan (1) Uncontrolled type 2 diabetes mellitus with hyperglycemia: Status: Acute (2) ESRD (end stage renal disease) on dialysis: Status: Acute (3) Cellulitis: Status: Acute Plan ESRD: HD mwf ( usu gets HD at [facility]) Cellutlitis: Abx as noted Nephrogenic Anemia MBD of CKD Obesity Will follow w team Procedures Date of Service Date of Service: 08/01/25
[2025-08-01 20:10] LABS: Glucose, Whole Blood 266 mg/dL (60-115)
[2025-08-01] MEDS: Insulin Glargine,Hum.rec.anlog 100 UNIT/ML 10 ML VIAL 20 UNIT SUBCUT (20:57)
[2025-08-02 04:00] VITALS: BP 142/66; PULSE 57; RESP 18; TEMP 36; O2SAT 100
[2025-08-02 07:16] VITALS: BP 156/67; PULSE 62; RESP 18; TEMP 36.9; O2SAT 96
[2025-08-02 07:18] LABS: Glucose, Whole Blood 339 mg/dL (60-115)
[2025-08-02] MEDS: 0.9 % Sodium Chloride Flush 3 ML SYRINGE IVFLUSH (07:26)
[2025-08-02 11:31] LABS: Glucose, Whole Blood 182 mg/dL (60-115)
--- NOTE | 2025-08-02 12:47 | PM.DS ---
DS: Providers Provider Date of Service: 08/02/25 Date of admission: 07/30/25 16:36 Date of discharge: 08/02/25 Primary care physician: Paco Ignacio MD Consults: 07/30/25 16:32 Consult to Nephrology Routine Consulting Provider: [facility] Reason for consultation: ESRD on HD 07/31/25 08:45 Consult to Nephrology Routine Consulting Provider: [facility] Reason for consultation: ESRD, needs dialysis DS: Diagnosis Discharge Diagnosis (1) Uncontrolled type 2 diabetes mellitus with hyperglycemia: Status: Acute (2) ESRD (end stage renal disease) on dialysis: Status: Acute (3) Cellulitis: Status: Acute DS: Summary Hospital Course Hospital Course: 65 year old woman with morbid obesity, DM2, ESRD on HD MWF, hx E. coli ESBL, HLD, HTN, chronic hypoxia on 2L O2, and chronic neuropathic pain currently undergoing STR at [facility] after admission here 07/09-07/11 and 07/16-07/17 for volume overload from missed HD, presenting with swollen, painful, hot, red pelvic pannus; found to have panniculitis and abdominal wall cellulitis, started on Vanco + Zosyn. improved and almost resolved with IV antibiotics, transitioned to PO antibiotics to complete 2 more days. Patient on day of discharge complaining of vaginal discharge and pruritus. Panniculitis/abdominal wall cellulitis, improving Imaging reviewed S/p vancomycin + piperacillin-tazobactam, transitioned to augmentin and doxy to complete 2 extra days Pain medication Elevation Vaginosis -will give one dose of fluconazole 150mg once. continue to monitor and follow up as outpatient ESRD on dialysis, usually on MWF scheduled, however missed dose on wednesday. Follows with Dr. Ash continue w/ scheduled dialysis Chronic hypoxic respiratory failure -Continue supplemental oxygen for SpO2 greater than or equal to 90% DM2 with hyperglycemia, chronic, uncontrolled A1c 9.3 Sliding scale, ADA diet lantus HTN, chronic continue amlodipine, hydralazine, metoprolol tartrate, will monitor and adjust medications accordingly Neuropathic pain, likely multifactorial in setting of T2DM Continue gabapentin, patient on dialysis. All new and continued medications were discussed in depth with the patient, and new prescriptions were given directly to patient and/or verification of the prescriptions were sent to patient's preferred pharmacy directly. All side effects were discussed. Follow-up instructions were given. ?Patient voiced understanding. ?Patient was given the opportunity ask questions and express concerns, all of which were answered to their satisfaction. ?Patient was instructed to follow-up with her PCP within 3 to 10 days of discharge and head to the nearest emergency room or call 911 if symptoms worsen or new symptoms develop. This is a summary of the patient's stay; for more complete details please see chart. More than 35 minutes was spent with patient regarding workup, diagnosis and follow-up. Time Attestation Discharge Coordination Time (in mins): 35 minutes Quality: Safe Use of Opioids Does Pt have an Active Cancer Diagnosis on the Problem List?: No Quality: Stroke Does the patient have a stroke diagnosis?: No Physical Exam Exam: Exam: General: AxOx3, No acute distresson home oxygen Head: AT/NC ENT: Moist mucous membranes Neck: supple CVS; RRR, S1 S2 normal Lungs: Clear bilateral breath sounds, no wheezes or crackles Abd: Soft non tender, non distended Ext: No edema and no calf tenderness MSK: moving all 4 limbs Skin: No cyanosis or edema, cellulitis very mild on hypogastric area, non tender Psych: Cooperative with exam Neurology: no focal deficit Vital Signs: Vital Signs: Last Vital Signs Temp 98.4 F 08/02/25 07:16 Pulse 62 08/02/25 07:16 Resp 18 08/02/25 07:16 BP 156/67 H 08/02/25 07:16 Pulse Ox 96 08/02/25 07:16 O2 Del Method Nasal Cannula 08/02/25 07:16 O2 Flow Rate 2 08/02/25 07:16 Oxygen Flow Rate 2 07/30/25 12:28 BMI result Body Mass Index 58.1 DS: Data Data Completed and Pending Completed studies during hospitalization [Text1]: Procedures Excision of Duodenum, Via Natural or Artificial Opening Endoscopic, Diagnostic (07/31/20) Excision of Stomach, Pylorus, Via Natural or Artificial Opening Endoscopic, Diagnostic (07/31/20) Performance of Urinary Filtration, Intermittent, Less than 6 Hours Per Day (07/16/25) Labs on day of discharge: Laboratory Results - last 24 hr 08/01/25 08/01/25 08/01/25 15:59 17:48 20:03 POC Glucose 294 H 266 H Random Vancomycin 14.2 L 08/02/25 08/02/25 07:15 11:26 POC Glucose 339 H 182 H Random Vancomycin Preliminary micro results at discharge 07/30/25 16:38 Blood Culture - Preliminary Blood - Venous No growth after 48 hours. 07/30/25 16:38 Blood Culture - Preliminary Blood - Venous No growth after 48 hours. Discharge Plan Discharge Anticipated Discharge Date/Time: 08/02/25 14:55 Patient Disposition: Home, Self-Care Discharge Diagnosis: Panniculitis Referrals: Johnathan Stevens DMD [Physician, Dentistry] - 1 Week Paco Pond MD [Primary Care Provider, Internal Medicine] - 1 Week Discharge Medications: New amoxicillin-pot clavulanate 875-125 mg tablet 1 tab PO BID 2 Days Qty: 4 0RF doxycycline hyclate 100 mg tablet 100 mg PO BID 2 Days Qty: 4 0RF Continued (DME) Accu-Chek Berna Plus test strp Strip See Rx Instructions .Route Qty: 300 8RF Rx Instructions: to check blood sugars five times a day (DME) blood sugar diagnostic Strip See Rx Instructions .ROUTE .MEDSUPPLY Qty: 200 8RF Rx Instructions: FREESTYLE TEST STRIPS (DME) hospital bed Kit See Rx Instructions .Route Qty: 1 0RF Rx Instructions: As directed (DME) pen needle, diabetic 32 gauge x 5/32 needle See Rx Instructions .Route Qty: 100 0RF Rx Instructions: use TID (DME) insulin syringe-needle U-100 [BD Insulin Syringe Ultra-Fine] 1 mL 30 gauge x 1/2 syringe See Rx Instructions .ROUTE .MEDSUPPLY Qty: 100 3RF Rx Instructions: TID nystatin 100,000 unit/gram Cream 1 appl TOPICAL TID PRN (Reason: Rash) Protocol: Apply to: Apply to: UNDER BREASTS, BELLY FOLDS pantoprazole 20 mg tablet,delayed release (DR/EC) 20 mg PO DAILY@0630 triamcinolone acetonide 0.1 % ointment 1 appl topical TID PRN (Reason: Diabetic Psoriasis ) insulin lispro [Humalog U-100 Insulin] 100 unit/mL solution See Protocol subcut TIDAC Protocol: Insulin Correction Scale Less than or equal to 110 ---- Give (units): 0 111 to 150 Give (units): 0 151 to 200 Give (units): 2 201 to 250 Give (units): 4 251 to 300 Give (units): 6 301 to 350 Give (units): 8 Greater than 350 Give (units): 10 Call MD if Blood Glucose > : 350 Rx Instructions: Patient uses a sliding scale sennosides [senna] 8.6 mg Tablet 17.2 mg PO BEDTIME 30 Days Qty: 30 3RF ropinirole 0.25 mg tablet 0.25 mg PO BEDTIME 30 Days Qty: 30 2RF amlodipine 10 mg tablet 10 mg PO DAILY 30 Days Qty: 30 3RF docusate sodium 100 mg Capsule 100 mg PO DAILY 30 Days Qty: 30 3RF ondansetron 4 mg tablet,disintegrating 4 mg translingual TIDAC PRN (Reason: nausea) 30 Days Qty: 12 3RF insulin glargine [Lantus Solostar U-100 Insulin] 100 unit/mL (3 mL) insulin pen 20 unit subcut BEDTIME 30 Days Qty: 3 3RF oxybutynin chloride 15 mg tablet extended release 24hr 15 mg PO DAILY 30 Days Qty: 30 3RF hydralazine 25 mg Tablet 25 mg PO TID 30 Days Qty: 30 3RF gabapentin 100 mg capsule 100 mg PO BID 30 Days Qty: 60 0RF polyethylene glycol 3350 [Miralax] 17 gram/dose Powder 17 g PO DAILY acetaminophen 325 mg tablet 650 mg PO Q4H PRN (Reason: Pain (Scale Score 4-6)) Airsupra 90-80 mcg/actuation HFA aerosol inhaler 2 inh inhalation Q4H PRN (Reason: Shortness Of Breath/WHEEZE) bisacodyl 10 mg Suppository 10 mg PA DAILY PRN (Reason: Constipation) Fleet Enema 19-7 gram/118 mL Enema 118 ml PA DAILY PRN (Reason: Constipation) metoprolol tartrate 25 mg tablet 12.5 mg PO BID Qty: 60 3RF Discharge Orders: Discharge Order (Routine); Ordered 08/02/25 Ordered By: Carlos Eduardo Chaves Activity on Discharge: As tolerated Stand Alone Forms: Patient Portal Discharge page Print Language: Grenadian Care Plan Goals: continue antibiotics for two days, keep area dry, monitor for worsening Health Concerns: Cellulitis Plan of Treatment: continue with augmentin and doxy for two additional days. Assessment: 65 year old woman with morbid obesity, DM2, ESRD on HD MWF, hx E. coli ESBL, HLD, HTN, chronic hypoxia on 2L O2, and chronic neuropathic pain currently undergoing STR at [facility] after admission here 07/09-07/11 and 07/16-07/17 for volume overload from missed HD, presenting with swollen, painful, hot, red pelvic pannus; found to have panniculitis and abdominal wall cellulitis, started on Vanco + Zosyn. improved and almost resolved with IV antibiotics, transitioned to PO antibiotics to complete 2 more days. Patient on day of discharge complaining of vaginal discharge and pruritus.
[2025-08-02 14:06] VITALS: BP 128/95; PULSE 59; RESP 18; TEMP 36.4; O2SAT 100
--- NOTE | 2025-08-02 14:41 | MHC.CM.PN ---
PT CLEARED TO DC TODAY SHE WILL RETURN TO [facility]IA [facility] AT 1530 HOURS DCS FAXED TO [facility] AND LEFT INFORMING THEM SHE WOULD RETURN TOMORROW
== END 2025-08-02 16:17 | disposition skilled nursing facility (03) | DRG 683 ==
LOC: HO.ED 13:37 → HO.EDOVER 16:44 → HO.S3 07-31 06:31
PROVIDERS: Nurse Practitioner Acute Care; Admitting Provider Family Medicine; Emergency Provider Emergency Medicine Emergency Medical Services; PCP Internal Medicine; Visit Provider Student in an Organized Health Care Education/Training Program
DX: I12.0 Hypertensive chronic kidney disease with stage 5 chronic kidney disease or end stage renal disease (principal); J96.11 Chronic respiratory failure with hypoxia; L03.311 Cellulitis of abdominal wall; Z68.43 Body mass index [BMI] 50.0-59.9, adult; E66.01 Morbid (severe) obesity due to excess calories; M79.3 Panniculitis, unspecified; E11.65 Type 2 diabetes mellitus with hyperglycemia; E11.40 Type 2 diabetes mellitus with diabetic neuropathy, unspecified; E87.70 Fluid overload, unspecified; D63.1 Anemia in chronic kidney disease; N76.0 Acute vaginitis; N25.0 Renal osteodystrophy; Z79.4 Long term (current) use of insulin; Z99.2 Dependence on renal dialysis; Z99.81 Dependence on supplemental oxygen; Z91.158 Patient's noncompliance with renal dialysis for other reason; Z87.891 Personal history of nicotine dependence; Z79.899 Other long term (current) drug therapy
CPT/HCPCS: 36415; 74176; 80048; 80053; 80202; 81001; 82947; 83036; 83605; 83880; 85025; 86140; 87040; 87086; 90999; 99285; J1938; J2543; J3373; J3374

== ENCOUNTER → 2025-07-30 14:13 | Outpatient (BNV) | payer MEDICARE, MEDICAID, SELFPAY | PROVIDERS: Emergency Provider Emergency Medicine Emergency Medical Services; PCP Dentist General Practice; Visit Provider Radiology Diagnostic Radiology | DX: E65 Localized adiposity (principal); E66.01 Morbid (severe) obesity due to excess calories; Z68.43 Body mass index [BMI] 50.0-59.9, adult | CPT/HCPCS: 74176 ==

== ENCOUNTER → 2025-07-30 16:36 | Outpatient (BNV) | payer MEDICARE, MEDICAID, SELFPAY | PROVIDERS: Admitting Provider Family Medicine; Emergency Provider Emergency Medicine Emergency Medical Services; PCP Dentist General Practice; Visit Provider Family Medicine | DX: M79.3 Panniculitis, unspecified (principal); N18.6 End stage renal disease; Z99.2 Dependence on renal dialysis; L03.311 Cellulitis of abdominal wall; Z91.158 Patient's noncompliance with renal dialysis for other reason | CPT/HCPCS: 99222; 99232; 99233; 99239 ==

== ENCOUNTER 2025-08-09 17:16 | Emergency (ER) | payer MEDICARE, MEDICAID, SELFPAY ==
--- OUTSIDE RECORDS SUMMARY | 2022-07-01 07:00 | XMS_ITS | Continuity of Care Document ---
Author Organization [facility] Address [address] [address] Phone Care Team Providers Care Asset Protection Detective Name Role Phone Caleb URBINA, Fiona Unavailable Unavailable Advance Directives Directive Yes / No Effective Date File Name No Information Encounters Encounter Description Practice Location Reason(s) For Visit Diagnoses Date Provider [facility], [address], [id number], [place] tel:[phone] [facility] No Information 2021 Caleb Jaimes. [address] [place], [place], [id number], [place]. tel:[phone] Family History Family Member Type Diagnosis Age At Onset No Information Payers Payer name Insurance type Covered republican ID Authoriza tion(s) No Information Social History Type Description Quantity Date Captured Comments Sex Female Smoking Status No Information Chief Complaint And Reason For Visit No Information History Of Present Illness Encounter Date Complaint History Of Prese nt Illness No Information Instructions Date Instruction Additional Infor mation No Information Assessments Type Assessment Date No Information
--- NOTE | ~2025-08-09 | CT_ITS ---
CLINICAL HISTORY: ?Abdominal wall cellulitis CT abdomen and pelvis with contrast Comparison: CT/MI/SR - CT ABDOMEN PELVIS WITHOUT IV CONTRAST - 07/30/25 14:26 EST Findings: Lung bases: Bibasilar subsegmental atelectasis. Mitral valve calcifications. Liver: Cirrhotic liver. Peripherally calcified nodule at the dome of the right lobe is unchanged compared to prior exam. No biliary ductal dilatation. Patent portal vein. Gallbladder: Noninflamed gallbladder. Spleen: Normal Pancreas: No solid mass or main duct dilation. Adrenal glands: 2.4 cm right adrenal adenoma versus myelolipoma. Normal left adrenal gland. Kidneys: No hydronephrosis. No stones. No solid mass. Vascular calcifications of the kidneys. Pelvic organs: Normal. Peritoneum and Gastrointestinal: No bowel obstruction, pneumoperitoneum, or ascites. Lymph nodes: No lymphadenopathy. Vessels: Atherosclerosis. Bones and soft tissues: Multilevel degenerative changes. Diffuse anasarca worst in the lower abdomen. No drainable fluid collection. IMPRESSION: Abdominal wall edema, worst on the lower abdomen anterior subcutaneous tissue. This may represent cellulitis in the appropriate clinical setting. No drainable fluid collection. Cirrhotic morphology of the liver. This document has been electronically signed by: Sarah Dickens MD on 08/09/2025 20:37:33
--- NOTE | ~2025-08-09 | XR_ITS ---
CLINICAL HISTORY: Fluid Overload 1 view chest x-ray. Comparison: CR - XR CHEST 1V - 07/16/25 01:56 EST Findings: Heart size is similar in size. No consolidation or effusion. Left lung base subsegmental atelectasis. No acute fracture. The visualized upper abdomen is unremarkable. Impression: No acute cardiopulmonary process. This document has been electronically signed by: Sarah Dickens MD on 08/09/2025 19:41:04
[2025-08-09 17:29] VITALS: BP 142/61; BP 142/62; PULSE 60; PULSE 63; RESP 18; TEMP 36.8; O2SAT 98; O2SAT 99; BMI 138.8
[2025-08-09 17:34] VITALS: BP 142/61; PULSE 63; RESP 18; TEMP 36.8; O2SAT 99
[2025-08-09 17:56] LABS: MANUAL DIFF FLAG NO
[2025-08-09 18:18] LABS: Alanine Aminotransferase 11 U/L (0-31); Albumin Level 3.7 g/dL (3.5-5.0); Alkaline Phosphatase 130 U/L (39-117); Anion Gap 17 (12-20); Aspartate Amino Transferase 16 U/L (5-31); Blood Urea Nitrogen 125 mg/dL (9-16); Calcium 8.4 mg/dL (8.4-10.2); Carbon Dioxide 22 mmol/L (22-29); Chloride 99 mmol/L (96-108); Creatinine Clr Calc Pharmacy 29.5; Estimated Glomerular Filt Rate 8; Potassium 5.0 mmol/L (3.3-5.1); Sodium 133 mmol/L (135-145); Total Protein 7.0 g/dL (6.5-8.0)
--- NOTE | 2025-08-09 18:20 | ED_ITS ---
HPI - Female Genitourinary General Chief complaint: Urogenital-Female Stated complaint: lower abd pain Time Seen by Provider: 08/09/25 17:56 History of Present Illness ED Provider: Praveena Almaguer NP HPI Narrative: 65-year-old female medical history significant for morbid obesity, DM 2, ESRD on hemodialysis Wednesday, currently missed 3 dialysis sessions due to severe vaginal pain and swelling, E coli ESBL history, hyperlipidemia, hypertension, chronic hypoxia on 2 L nasal cannula O2, chronic neuropathic pain currently undergoing short-term rehab at [facility] after several admissions here presents to the ER for persistent abdominal, vaginal, pelvic pain as well as persistent urinary symptoms. The patient was admitted here 07/09-07/11, 07/16-07/17 for volume overload after missing dialysis, and was started on Vanco and Zosyn after being found to have panniculitis and abdominal wall cellulitis, discharged on 08/02/2025 with oral antibiotics Augmentin, doxycycline. She reports that since being at the facility she has missed a week of dialysis due to severe pain. She also reports that the vaginal area is very painful and uncomfortable. She reports increase of urination, as well as dysuria. No abnormal discharge. No abdominal pain, no nausea or vomiting, diarrhea or constipation. No fever, chills. No chest pain or pressure, shortness of breath. Related Data Home Medications ?Medication ?Instructions ?Recorded ?Confirmed nystatin 100,000 unit/gram topical 1 appl topical TID PRN Rash 07/11/22 07/30/25 cream insulin lispro 100 unit/mL See Protocol subcut TIDAC 1 09/08/24 07/30/25 subcutaneous solution (Humalog U-100 Insulin) pantoprazole 20 mg tablet,delayed 20 mg PO DAILY@0630 07/09/25 07/30/25 release triamcinolone acetonide 0.1 % 1 appl topical TID PRN D iabetic 07/09/25 07/30/25 topical ointment Psoriasis acetaminophen 325 mg tablet 650 mg PO Q4H PRN Pain (Sc mallory 07/30/25 07/30/25 Score 4-6) albuterol 90 mcg-budesonide 80 2 inh inhalation Q4H MT N Shortness 07/30/25 07/30/25 mcg/actuation HFA aerosol inhaler Of Breath/WHEEZE (Airsupra) bisacodyl 10 mg rectal suppository 10 mg MT DAILY PRN Constipation 07/30/25 07/30/25 polyethylene glycol 3350 17 17 g PO DAILY 07/30/2509/23 gram/dose oral powder (Miralax) sodium phosphates 19 gram-7 118 ml MT DAILY PRN Consti pation 07/30/25 07/30/25 gram/118 mL enema (Fleet Enema) Previous Rx's ?Medication ?Instructions ?Recorded blood sugar diagnostic #200 ea 12/05/21 blood sugar diagnostic (Accu-Chek #300 ea 12/05/21 Berna Plus test strips) hospital bed #1 ea 07/06/22 pen needle, diabetic 32 gauge x #100 ea 07/07/22 insulin syringe-needle U-100 1 mL #100 ea 07/08/22 30 gauge x 1/2 (BD Insulin Syringe Ultra-Fine) amlodipine 10 mg tablet 10 mg PO DAILY 30 days #30 t abs 06/11/25 docusate sodium 100 mg capsule 100 mg PO DAILY 30 days #30 caps 06/11/25 gabapentin 100 mg capsule 100 mg PO BID 30 days #60 ca ps 06/11/25 hydralazine 25 mg tablet 25 mg PO TID 30 days #30 tab s 06/11/25 insulin glargine 100 unit/mL (3 20 unit (0.2 mL) subcu t BEDTIME 30 06/11/25 mL) subcutaneous pen (Lant #3 mL Solostar U-100 Insulin) ondansetron 4 mg disintegrating 4 mg translingual TIDA C PRN nausea 06/11/25 tablet 30 days #12 tabs oxybutynin chloride 15 mg 15 mg PO DAILY 30 days #30 t abs 06/11/25 tablet,extended release 24 hr ropinirole 0.25 mg tablet 0.25 mg PO BEDTIME 30 days # 30 tabs 06/11/25 sennosides 8.6 mg tablet (senna) 17.2 mg (2 x 8.6 mg) PO BEDTIME 30 06/11/25 days #30 tabs metoprolol tartrate 25 mg tablet 12.5 mg (1/2 x 25 mg) PO BID #60 06/21/25 tabs amoxicillin 875 mg-potassium 1 tab PO BID 2 days #4 ta bs 08/02/25 clavulanate 125 mg tablet doxycycline hyclate 100 mg tablet 100 mg PO BID 2 days #4 tabs 08/02/25 Allergies Allergy/AdvReac Type Severity Reaction Status Date / Time metformin (METFORMIN) Allergy Severe HIVES Verified 08/09/25 17:32 heparin Allergy Intermediate Itching Verified 08/09/25 17:32 canagliflozin (From Invokana) Allergy Hives Verified 08/09/25 17:32 Review of Systems 2 Review of Systems: ROS is otherwise negative unless mentioned in HPI. [facility] Past Medical History Medical History HTN (hypertension) HLD (hyperlipidemia) Frequent UTI Anemia Acute on chronic diastolic (congestive) heart failure Type 2 diabetes mellitus with obesity Clostridium difficile diarrhea Morbid obesity Detrusor dysfunction Bladder outlet obstruction Esophagitis CKD (chronic kidney disease) stage 4, GFR 15-29 ml/min Hypothyroidism IBS (irritable bowel syndrome) Surgical History History of tubal ligation Family History Family History Father Diabetes Mother Diabetes Hypertension Breast cancer Family/Other Breast cancer Uterine cancer Social History Social History Household Members: None Housing: Apartment Do you presently have visiting nurse or other home services: Yes Alcohol intake: never Comment: bedbound at baseline Patient Tobacco Use Status: Former Tobacco user Smoked in Last 30 Days: No e-Cigarette/Vaping Use: Never Used Second Hand Smoke Exposure: No Use of substances other than those prescribed or required for medical reasons: No Advance Directives: Yes Advance Directives on File: Yes Advance Directives Date on File: 03/18/23 Do you have a plan to hurt others: No Plan service: No Current occupational status: disabled Cognitive needs: No Hearing needs: No Vision needs: Yes Physical Exam 2 Exam: Exam: Nursing notes and vital signs reviewed. Constitutional: Well-appearing, NAD. Alert. Oriented X3. Eyes: EOMI. ENT: Pharynx normal. Neck: Normal inspection. Neck supple. CVS: Normal heart rate and rhythm. Pulses normal. Respiratory: No respiratory distress. Breath sounds normal. Abdomen: Soft, nontender. Nondistended. Obese. Skin: Skin warm and dry. Normal skin color. Significant edema to the lower legs as well as vaginal area. Extremities: No lower extremity edema. Neuro: Oriented X 3. No motor deficit. Vital Signs: Vital Signs: Last Vital Signs Temp 97.6 F 08/09/25 19:14 Pulse 62 08/09/25 19:14 Resp 18 08/09/25 19:14 BP 131/51 L 08/09/25 19:14 Pulse Ox 100 08/09/25 19:14 O2 Del Method Nasal Cannula 08/09/25 19:14 O2 Flow Rate 1 08/09/25 19:14 Oxygen Flow Rate 1 08/09/25 17:29 BMI result Body Mass Index 138.8 Medications Administered Discontinued Medications Generic Name Dose Route Start Last Admin Trade Name Freq PRN Reason Stop Dose Admin Acetaminophen 975 mg 08/09/25 18:20 08/09/25 18:55 Acetaminophen 325 Mg Tablet PO 08/09/25 18:21 975 mg ONCE ONE Administration Medical Decision Making Medical Decision Making [facility] Narrative: Upon my initial assessment of this patient, she presents to the ED with chief complaint of vaginal pain and swelling, and she has missed 3 dialysis sessions due to pain, being unable to sit in the chair for that long period of time. We will concern for volume overload, I have added on pro BNP, as well as chest x- ray. Her creatinine has significantly worsened, now is 5.59, and previously has been 4.08. Previous BUN 80, now 125. This comparison is 9 days apart. She is hypoxic, but baseline requires oxygen. Her oxygen requirement has not increased. We will obtain portable chest x-ray, proBNP. Additionally, her pannus does not appear to be red or warm. The area is very swollen however, and painful per her report. We will administer Tylenol, and obtain CT imaging of abdomen pelvis without contrast. 9:23 PM: Her proBNP is roughly the same as it was previously. X-ray of the chest shows no acute abnormality. UA shows no signs of infection. CT of the abdomen pelvis does not show any drainable fluid collection, there is abdominal wall edema, worse on the lower abdomen anterior subcutaneous tissue, however clinically there is no redness, warmth to the touch, therefore I do not believe this is cellulitis. She also recently completed antibiotics for cellulitis of the abdominal wall, as well as panniculitis. I believe the swelling is likely due to her missing dialysis for 1 full week. I did tell her extensively that she needs to get dialysis tomorrow, even if the chairs uncomfortable. Patient tells me that she does not want to get dialysis because the chairs at dialysis are uncomfortable for her. However, I discussed that even if she gets dialysis session for 1-2 hours, only half a session, it is very important that she at least attempts to. I will also list her a PCP provider on her discharge instructions, as well as warehouse order filler, she tells me that she does not have any of these providers outpatient currently. Additionally, I will recommend that she contacts nephrology tomorrow, and attempts to find a new dialysis center that has chairs that are larger,/beds. She is agreeable to this plan. Provided return precautions to the ED. Patient to be discharged back to her facility via ambulance. Differential Diagnosis Differential Diagnoses: The differential diagnosis associated with the presentation includes Panniculitis, abdominal wall cellulitis, UTI, failure of outpatient antibiotic, dependent edema, missing dialysis effects Admission/Observation Consideration of admission/observation: Escalation of care including admission/observation considered (Considered, no medical reason for admission.) Lab Data MDM Lab Attestation statement: I reviewed the patient's lab results. (Overall reassuring.) 08/09/25 17:44 08/09/25 17:44 Labs: Lab Results 08/09/25 08/09/25 Range/Units 17:44 18:50 WBC 8.4 (4.8-10.8) X10*3/uL RBC 2.86 L (4.20-5.50) X10*6/uL Hgb 9.0 L (12.0-16.0) g/dl Hct 26.6 L (37.0-47.0) % MCV 93.0 (80.0-98.0) fL MCH 31.5 (27.0-33.0) pg MCHC 33.8 (31.0-35.0) g/dl RDW 14.6 (11.0-16.0) % Plt Count 145 L (160-400) X10*3/uL MPV 11.2 (9.4-12.3) fL Immature Gran % (Auto) 0.4 (0.0-0.4) % Neut % (Auto) 77.2 H (45-73) % Lymph % (Auto) 10.6 L (20-40) % [place] % (Auto) 7.4 (2-11) % Eos % (Auto) 3.8 (0-4) % Baso % (Auto) 0.6 (0-2) % Lymph # (Auto) 0.9 L (1.2-4.9) X10*3/uL Independence # (Auto) 0.6 (0.1-1.2) X10*3/uL Eos # (Auto) 0.3 (0.0-0.4) X10*3/uL Baso # (Auto) 0.1 (0.0-0.2) X10*3/uL Abs Immat Gran (auto) 0.03 (0.00-0.03) X10*3/uL Absolute Neuts (auto) 6.5 (2.0-8.3) x10*3/uL Absolute Nucleated RBC 0.000 (0.0-0.012) X10*3/uL Nucleated RBC % (auto) 0.0 (0.0-0.2) /100WBC Sodium 133 L (135-145) mmol/L Potassium 5.0 (3.3-5.1) mmol/L Chloride 99 (96-108) mmol/L Carbon Dioxide 22 (22-29) mmol/L Anion Gap 17 (12-20) BUN 125 H (9-16) mg/dL Creatinine 5.59 H* (0.5-1.4) mg/dL Estim Creat Clear Calc 29.5 Estimated GFR 8 Random Glucose 266 H (60-115) mg/dL Calcium 8.4 (8.4-10.2) mg/dL Total Bilirubin 0.3 (0.0-1.0) mg/dL AST 16 (5-31) U/L ALT 11 (0-31) U/L Alkaline Phosphatase 130 H (39-117) U/L NT-Pro-B Natriuret Pep 5970.7 H (<300) pg/mL Total Protein 7.0 (6.5-8.0) g/dL Albumin 3.7 (3.5-5.0) g/dL Urine Color Yellow Urine Appearance Cloudy Urine pH 5.0 (5.0-9.0) Ur Specific Smyer 1.015 (1.005-1.025) Urine Protein 30 (1+) H (Neg-Trace) mg/dL Urine Glucose (UA) 250 H (Negative) mg/dL Urine Ketones Negative (Negative) mg/dL Urine Blood Negative (Negative) Urine Nitrite Negative (Negative) Ur Leukocyte Esterase Trace H (Negative) Urine RBC 0-2 (0-2) /HPF Urine WBC 6-10 (0-5) /HPF Ur Squamous Epith Cells 6-10 (0-2) /HPF Urine Bacteria None Seen (None Seen) Hyaline Casts 0-2 (0-2) /LPF Urine Yeast Present Radiology Impression Discussion of test interpretation with radiology: I have reviewed the radiologist's reading. Radiologist Impression: X-Ray Chest Impression: No acute cardiopulmonary process. CT Abdomen/Pelvis IMPRESSION: Abdominal wall edema, worst on the lower abdomen anterior subcutaneous tissue. This may represent cellulitis in the appropriate clinical setting. No drainable fluid collection. Cirrhotic morphology of the liver. Independent Historian Clinical information obtained from an independent historian. History obtained from or confirmed by: EMS and Other (SNF Records) External Record Review External record reviewed: Inpatient record, Outpatient record, Primary care record and Outside ED record Chronic Conditions Patient?s care impacted by: Diabetes, Hypertension and Other (ESRD) Social Determinants Patient?s care significantly limited by Social Determinants of Health including: Inadequate housing and Problems related to primary support group Discharge Plan Discharge Clinical Impression: Abdominal pannus, Edema of abdominal wall Patient Disposition: Home, Self-Care Instructions: Edema (ED) Additional Instructions: As we discussed, your lab work today is overall reassuring. It is very important that you have your dialysis session tomorrow. I would like for you to follow up with Nephrology. I have listed them for your convenience. Additionally, it would be beneficial if you contact Nephrology to see if there is another dialysis center that has larger chairs or beds. I have also listed a PCP. With any worsening complaints, please return back to the ED. Prescriptions: No Action (DME) Accu-Chek Berna Plus test strp Strip See Rx Instructions .Route Qty: 300 8RF Rx Instructions: to check blood sugars five times a day (DME) blood sugar diagnostic Strip See Rx Instructions .ROUTE .MEDSUPPLY Qty: 200 8RF Rx Instructions: FREESTYLE TEST STRIPS (DME) hospital bed Kit See Rx Instructions .Route Qty: 1 0RF Rx Instructions: As directed (DME) pen needle, diabetic 32 gauge x / needle See Rx Instructions .Route Qty: 100 0RF Rx Instructions: use TID (DME) insulin syringe-needle U-100 [BD Insulin Syringe Ultra-Fine] 1 mL 30 gauge x 1/2 syringe See Rx Instructions .ROUTE .MEDSUPPLY Qty: 100 3RF Rx Instructions: TID nystatin 100,000 unit/gram Cream 1 appl TOPICAL TID PRN (Reason: Rash) Protocol: Apply to: Apply to: UNDER BREASTS, BELLY FOLDS pantoprazole 20 mg tablet,delayed release (DR/EC) 20 mg PO DAILY@0630 triamcinolone acetonide 0.1 % ointment 1 appl topical TID PRN (Reason: Diabetic Psoriasis ) insulin lispro [Humalog U-100 Insulin] 100 unit/mL solution See Protocol subcut TIDAC Protocol: Insulin Correction Scale Less than or equal to 110 ---- Give (units): 0 111 to 150 Give (units): 0 151 to 200 Give (units): 2 201 to 250 Give (units): 4 251 to 300 Give (units): 6 301 to 350 Give (units): 8 Greater than 350 Give (units): 10 Call MD if Blood Glucose > : 350 Rx Instructions: Patient uses a sliding scale sennosides [senna] 8.6 mg Tablet 17.2 mg PO BEDTIME 30 Days Qty: 30 3RF ropinirole 0.25 mg tablet 0.25 mg PO BEDTIME 30 Days Qty: 30 2RF amlodipine 10 mg tablet 10 mg PO DAILY 30 Days Qty: 30 3RF docusate sodium 100 mg Capsule 100 mg PO DAILY 30 Days Qty: 30 3RF ondansetron 4 mg tablet,disintegrating 4 mg translingual TIDAC PRN (Reason: nausea) 30 Days Qty: 12 3RF insulin glargine [Lantus Solostar U-100 Insulin] 100 unit/mL (3 mL) insulin pen 20 unit subcut BEDTIME 30 Days Qty: 3 3RF oxybutynin chloride 15 mg tablet extended release 24hr 15 mg PO DAILY 30 Days Qty: 30 3RF hydralazine 25 mg Tablet 25 mg PO TID 30 Days Qty: 30 3RF gabapentin 100 mg capsule 100 mg PO BID 30 Days Qty: 60 0RF polyethylene glycol 3350 [Miralax] 17 gram/dose Powder 17 g PO DAILY acetaminophen 325 mg tablet 650 mg PO Q4H PRN (Reason: Pain (Scale Score 4-6)) Airsupra 90-80 mcg/actuation HFA aerosol inhaler 2 inh inhalation Q4H PRN (Reason: Shortness Of Breath/WHEEZE) bisacodyl 10 mg Suppository 10 mg MT DAILY PRN (Reason: Constipation) Fleet Enema 19-7 gram/118 mL Enema 118 ml MT DAILY PRN (Reason: Constipation) amoxicillin-pot clavulanate 875-125 mg tablet 1 tab PO BID 2 Days Qty: 4 0RF doxycycline hyclate 100 mg tablet 100 mg PO BID 2 Days Qty: 4 0RF metoprolol tartrate 25 mg tablet 12.5 mg PO BID Qty: 60 3RF Referrals: [facility] [place] [facility] [Provider Group, Family Practice] [facility] [place] [facility] [Provider Group, Nephrology] Print Language: Amharic
[2025-08-09 18:21] LABS: Hematocrit 26.6 % (37.0-47.0); Hemoglobin 9.0 g/dl (12.0-16.0); Imm Gran Abs Auto 0.03 X10*3/uL (0.00-0.03); Imm Gran Pct Auto 0.4 % (0.0-0.4); Lymphocytes Absolute Auto 0.9 X10*3/uL (1.2-4.9); Mean Corpuscular HGB Conc 33.8 g/dl (31.0-35.0); Mean Corpuscular Hemoglobin 31.5 pg (27.0-33.0); Mean Corpuscular Volume 93.0 fL (80.0-98.0); NRBC Abs Auto 0.000 X10*3/uL (0.0-0.012); NRBC Pct Auto 0.0 /100WBC (0.0-0.2); Platelet Count 145 X10*3/uL (160-400); Red Blood Count 2.86 X10*6/uL (4.20-5.50); White Blood Count 8.4 X10*3/uL (4.8-10.8)
[2025-08-09 18:57] VITALS: BP 146/68; PULSE 68; RESP 16; TEMP 36.6; O2SAT 99
[2025-08-09 19:09] LABS: Appearance Urine Cloudy; Glucose Urine UA 250 mg/dL (Negative); PH 5.0 (5.0-9.0); Specific Gravity - Urine 1.015 (1.005-1.025); UMIC TRIGGER UACC YES
[2025-08-09 19:14] VITALS: BP 131/51; PULSE 62; RESP 18; TEMP 36.4; O2SAT 100
[2025-08-09 19:44] LABS: UACC Culture Trigger YES
[2025-08-09 21:53] VITALS: BP 168/73; PULSE 61; RESP 18; TEMP 36.4; O2SAT 100
--- NOTE | 2025-08-09 23:18 | PC.NURSE ---
report called to [facility]- spoke with nurse Zackary on third floor
[2025-08-09 23:19] VITALS: BP 168/73; PULSE 61; RESP 18; TEMP 36.4; O2SAT 100
--- OUTSIDE RECORDS SUMMARY | 2025-08-09 23:37 | XMS_ITS | Clinical Summary ---
Author Organization [facility] Address [address] [place] [id number] Phone Care Team Providers Care Melter Helper Name Role Phone Alexi Lynne MD Primary Care Provider [phone] Allergies No known active allergies Medications hydrALAZINE [...] PM EDT): During her prolonged stay at [place] she required 2 L of oxygen. At [...] PM EDT): During her prolonged stay at [place] she required 2 L of oxygen. At [...] PM EDT): During her prolonged stay at [place] she required 2 L of oxygen. At [...] PM EDT): During her prolonged stay at [place] she required 2 L of oxygen. At [...] PM EDT): During her prolonged stay at [place] she required 2 L of oxygen. At [...] PM EDT): During her prolonged stay at [place] she required 2 L of oxygen. At [...] PM EDT): During her prolonged stay at [place] she required 2 L of oxygen. At [...] AM EDT): During her prolonged stay at [place] she required 2 L of oxygen. At [...] PM EDT): During her prolonged stay at [place] she required 2 L of oxygen. Since [...] PM EDT): During her prolonged stay at [place] she required 2 L of oxygen. Since [...] AM EDT): During her prolonged stay at [place] she required 2 L of oxygen. Since [...] AM EDT): During her prolonged stay at [place] she required 2 L of oxygen. Since [...] PM EDT): During her prolonged stay at [place] she required 2 L of oxygen. Since [...] PM EDT): During her prolonged stay at [place] she required 2 L of oxygen. Since [...] PM EDT): During her prolonged stay at [place] she has required 2 L of oxygen. [...] during this hospitalization. -- Requested records from [facility] and Dr [place] of [place]; re-requested records on 04/19 Assessment & Plan (04/21/2025 4:16 PM EDT): Apparently was started on a 30-day course of treatment with ciprofloxacin in mid February. No findings to suggest active infection at this time. No antibiotics prescribed during this hospitalization. -- Requested records from [facility] and Dr [place] of [place]; re-requested records on 04/19 Assessment & Plan (04/20/2025 6:23 PM EDT): Apparently was started on a 30-day course of treatment with ciprofloxacin in mid February. No findings to suggest active infection at this time. No antibiotics prescribed during this hospitalization. -- Requested records from [facility] and Dr [place] of [place]; re-requested records on 04/19 Assessment & Plan (04/19/2025 11:51 AM EDT): Apparently was started on a 30-day course of treatment with ciprofloxacin in mid February. No findings to suggest active infection at this time. No antibiotics prescribed during this hospitalization. -- Requested records from [facility] and Dr [place] of [place]; re-requested records on 04/19 Assessment & Plan (04/18/2025 5:59 PM EDT): Apparently was started on a 30-day course of treatment with ciprofloxacin in february. No findings to suggest active infection at this time. No antibiotics prescribed during this hospitalization. -- Requested records from [facility] -- Continue to hold on further antibiotics. Assessment & Plan (04/17/2025 2:27 PM EDT): Apparently was started on a 30-day course of treatment with ciprofloxacin in mid February. No findings to suggest active infection at this time. No antibiotics prescribed during this hospitalization. -- Requested records from [facility] -- Continue to hold on further antibiotics. Assessment & Plan (04/16/2025 8:33 AM EDT): Apparently was started on a 30-day course of treatment with ciprofloxacin in mid February. No findings to suggest active infection at this time. No antibiotics prescribed during this hospitalization. -- Requested records from [facility] -- Continue to hold on further antibiotics. Assessment & Plan (04/15/2025 11:22 AM EDT): Apparently was started on a 30-day course of treatment with ciprofloxacin in mid February. No findings to suggest active infection at this time. No antibiotics prescribed during this hospitalization. -- Requested records from [facility] -- Continue to hold on further antibiotics. Assessment & Plan (04/14/2025 6:39 PM EDT): Apparently was started on a 30-day course of treatment with ciprofloxacin in mid February. No findings to suggest active infection at this time. No antibiotics prescribed during this hospitalization. -- Requested records from [facility] -- Continue to hold on further antibiotics. Assessment & Plan (04/13/2025 4:02 PM EDT): Apparently was started on a 30-day course of treatment with ciprofloxacin in mid February. No findings to suggest active infection at this time. No antibiotics prescribed during this hospitalization. -- Requested records from Dr. Paul Lebron in [place] -- Continue to hold on further antibiotics. Assessment & Plan (04/12/2025 3:56 PM EDT): Apparently was started on a 30-day course of treatment with ciprofloxacin in mid February. No findings to suggest active infection at this time. No antibiotics prescribed during this hospitalization. -- Requested records from Dr. Paul Lebron in [place] -- Continue to hold on further antibiotics. Assessment & Plan (04/11/2025 3:37 PM EDT): Apparently was started on a 30-day course of treatment with ciprofloxacin in mid February. No findings to suggest active infection at this time. No antibiotics prescribed during this hospitalization. -- Requested records from Dr. Paul Lebron in [place] -- Continue to hold on further antibiotics. Assessment & Plan (04/10/2025 4:52 PM EDT): Apparently was started on a 30-day course of treatment with ciprofloxacin in mid February. No findings to suggest active infection at this time. -- Requested records from Dr. Paul Lebron in [place] -- Hold on additional antibiotics for now Assessment & Plan (04/09/2025 1:32 PM EDT): Apparently was started on a 30-day course of treatment with ciprofloxacin in mid February. No findings to suggest active infection at this time. -- Requestin records from Dr. Paul Lebron in [place] -- Hold on additional antibiotics for now Assessment & Plan (04/07/2025 4:33 PM EDT): Apparently was started on a 30-day course of treatment with ciprofloxacin in mid February. No findings to suggest active infection at this time. -- Will try to obtain records from Dr. Paul Lebron in [place] on Wednesday -- Hold on additional antibiotics for now ESRD (end stage renal disease) 04/05/2025 Assessment & Plan (04/27/2025 9:15 AM EDT): - Patient has been cleared at [facility] unit to start Wednesday at 6:30 AM she can be discharged as long as she has transportation available. Details of outpatient personal injury litigation paralegal requirements being addressed. -For now we will continue with inpatient HD Wednesday regimen. Tolerating dialysis treatment well, potentially will be DC planning for outpt HD at [facility] next Wednesday. - Continue fluid restriction 1.2 L daily max. Fortunately reaching dry weight. - hepatitis B non-reactive. Will aim for repeat vaccination with Heplisav as outpatient - hgb stable - AVG working well Assessment & Plan (04/26/2025 8:12 AM EDT): - Patient has been cleared at [facility] unit to start Wednesday at 6:30 AM she can be discharged as long as she has transportation available. Details of outpatient personal injury litigation paralegal requirements being addressed. -For now we will continue with inpatient HD Wednesday regimen. Tolerating dialysis treatment well.Next due tomorrow, potentially will be DC planning for outpt HD at [facility] next Wednesday. - Continue fluid restriction 1.2 L daily max. Fortunately reaching dry weight. - hepatitis B non-reactive. Will aim for repeat vaccination with Heplisav as outpatient - hgb stable - AVG working well Assessment & Plan (04/25/2025 9:51 AM EDT): - Patient has been cleared at [facility] unit to start Wednesday at 6:30 AM [...] AVG working well -Details of outpatient personal injury litigation paralegal requirements being addressed. Assessment & Plan (04/24/2025 9:54 AM EDT): - Patient has been cleared at [facility] to start tomorrow at 6:30 AM [...] EDT): -Unfortunately despite extensive search locally at [facility] and [facility] no local dialysis center with bariatric bed to accommodate her dialysis. Our team have exhausted all search in the local dialysis centers. Highly suggest to start statewide search and [id number] for other facilities if she needs rehab [...] her dialysis tenure. -If discharged back to [place] outpatient dialysis unit will need transportation. Assessment [...] center across the state. -If discharged to [place] outpatient dialysis unit will need transportation. Assessment [...] for out of area dialysis rehab centers [facility] -Consider PT OT while inpatient assess risk of fall and ability to move to a chair. -Other options check with previous outpatient unit in [place] if still available chair and able to [...] for out of area dialysis rehab centers [facility] -Consider PT OT while inpatient assess risk of fall and ability to move to a chair. -Other options check with previous outpatient unit in [place] if still available chair and able to [...] on dialysis unit placement awaiting clearance through [facility] or [facility] but she has been declined by both so far due to concerns about her ability to transfer and sit in dialysis. There are no beds available throughout the area for dialysis clinics. -Our team continues to search for local unit, I would kindly ask case management to start looking for out of area dialysis rehab centers [facility] -Consider PT OT while inpatient assess [...] potassium binding resin. - Will inquire with [facility] hopefully able to be discharged to [...] access hemodialysis. She had been discharged from [facility] her dialysis center was in [place] but she lives in [place] and she did not have transportation. She was volume overloaded on presentation, requiring HD. Nephrology was consulted. Patient is requiring a bariatric BED for hemodialysis. 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 Patient has a bariatric dialysis bed at [place] dialysis unit. Patient remained in hospital for dialysis on 04/25. - fire marshal refinery unavailable until Friday 04/27, will remain here [...] access hemodialysis. She had been discharged from [facility] her dialysis center was in [place] but she lives in [place] and she did not have transportation. She was volume overloaded on presentation, requiring HD. Nephrology was consulted. Patient is requiring a bariatric BED for hemodialysis. 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 Patient has a bariatric dialysis bed at [facility] dialysis unit. Patient remained in hospital for dialysis on 04/25. - fire marshal refinery unavailable until Friday 04/27, will remain here [...] from SNF her dialysis center was in [place] but she lives in [place] and she did not have transportation. She [...] 04/19. Attempts were made for dialysis in [place] however patient was declined on 04/22 Last HD was 04/23 with removal of 5 L. Stable hemodynamically. Spoke with Dr. Esteban and patient has a bariatric dialysis bed and [facility]. Initial plans were for discharge today with outpatient dialysis on 04/25 however dialysis time was at 6:30 in the morning and patient did not have [employer] coverage to be discharged home tonight. Patient remained in hospital for dialysis on 04/25. - Goal is for discharge home on 04/25 once fire marshal refinery can be established to be in the [...] access hemodialysis. She had been discharged from [facility] her dialysis center was in [place] but she lives in [place] and she did not have transportation. She [...] 04/19. Attempts were made for dialysis in [place] however patient was declined on 04/22 04/23 Status post HD today with removal of 5 L. Stable hemodynamically. -discussed with patient in multidisciplinary rounds. Lottery Clerk Dr. Esteban has secured a bariatric chair for patient in [place]. - Anticipate chair will be ready in 24 to 48 hours. -Continue torsemide - HD Wednesday. - Continue 1 L fluid restriction Assessment & Plan (04/22/2025 4:03 PM EDT): Patient history of end-stage renal disease on dialysis Wednesday and Wednesday presented for fluid overload due to inability to access hemodialysis. She had been discharged from [facility] her dialysis center was in [place] but she lives in [place] and she did not have transportation. She [...] no bariatric HD chair available. Declined by [facility]. -Continue torsemide - HD Wednesday. - Continue 1 L fluid restriction -Case management/social work and golf caddy continue to search for bariatric chair for outpatient dialysis. Assessment & Plan (04/21/2025 4:16 PM EDT): Patient history of end-stage renal disease on dialysis Wednesday and Wednesday presented for fluid overload due to inability to access hemodialysis. She had been discharged from [facility] her dialysis center was in [place] but she lives in [place] and she did not have transportation. She [...] no bariatric HD chair available. Declined by [facility]. -Continue torsemide - HD Wednesday. - Continue 1 L fluid restriction -Case management/social work and golf caddy continue to search for bariatric chair for outpatient dialysis. Assessment & Plan (04/20/2025 6:23 PM EDT): Patient history of end-stage renal disease on dialysis Wednesday and Wednesday presented for fluid overload due to inability to access hemodialysis. She had been discharged from [facility] her dialysis center was in [place] but she lives in [place] and she did not have transportation. She [...] access hemodialysis. She had been discharged from [facility] her dialysis center was in [place] but she lives in [place] and she did not have transportation. She [...] the ED. She had been discharged from [facility] her dialysis center was in [place] but she lives in [place] and she did not have transportation. Patient [...] the ED. She had been discharged from [facility] her dialysis center was in [place] but she lives in [place] and she did not have transportation. Patient [...] the ED. She had been discharged from [facility] her dialysis center was in [place] but she lives in [place] and she did not have transportation. Patient [...] the ED. She had been discharged from [facility] her dialysis center was in [place] but she lives in [place] and she did not have transportation. Patient [...] the ED. She had been discharged from [facility] her dialysis center was in [place] but she lives in [place] and she did not have transportation. Patient [...] the ED. She had been discharged from [facility] her dialysis center was in [place] but she lives in [place] and she did not have transportation. -Received [...] from SNF her dialysis center was in [place] but she lives in [place] and she did not have transportation. -Received [...] the ED. She had been discharged from [facility] her dialysis center was in [place] but she lives in [place] and she did not have transportation. --Spoke [...] the ED. She had been discharged from [facility] her dialysis center was in [place] but she lives in [place] and she did not have transportation. --Spoke [...] the ED. She had been discharged from [facility] her dialysis center was in [place] but she lives in [place] and she did not have transportation. --Spoke [...] the ED. She had been discharged from [facility] her dialysis center was in [place] but she lives in [place] and she did not have transportation Case [...] ED. Evidently when she was discharged from [facility] her dialysis center was in [place] but she lives in [place] and she did not have transportation Case [...] 04/06 Evidently when she was discharged from [facility] her dialysis center was in [place] but she lives in [place] and she did not have transportation Nephrology [...] and a low-dose insulin sliding scale with [id number] testing. - Obtain hemoglobin A1c in the [...] Patient states that since her admission to [facility] over the last 10 months she has [...] Patient states that since her admission to [facility] over the last 10 months she has [...] Patient states that since her admission to [facility] over the last 10 months she has [...] obtain records from Dr. Paul Lebron in [place]. Assessment & Plan (04/09/2025 1:32 PM EDT): Patient states history of recurrent UTI currently on ciprofloxacin for 30 days. Patient asymptomatic. No concerns for infection presently - At presentation ciprofloxacin held because of risk versus benefit concerns agree that there may be greater risk than benefit of continuing ciprofloxacin at this point --Will try to obtain records from Dr. Paul Lebron in [place] on Wednesday Assessment & Plan (04/08/2025 3:43 [...] obtain records from Dr. Paul Lebron in [place] on Wednesday Assessment & Plan (04/07/2025 2:46 [...] 9:15 AM EDT Emergency [facility] [address] [place] [address] Gumaro Hernandez, Satya Hernandez MD Discharge Disposition: Home or Self Care from Last 3 Months Family History Medical [...] ECG 12-LEAD STAT 06/05/2025 10:03 PM EDT HEPATITIS B SURFACE ANTIGEN Routine 04/24/2025 11:00 AM EDT HEMOGLOBIN A1C Routine 04/06/2025 6:33 [...] clinician's provided indication for this examination in [facility]: Dyspnea (Shortness of Breath) COMPARISON: XR CHEST PORTABLE FINDINGS: Devices/Tubes/Lines: None. Lungs: No focal consolidation or pulmonary edema. Pleura: No pleural effusion or pneumothorax. Heart/Mediastinum: Stable cardiac silhouette enlargement. Bones/Soft Tissues: Degenerative changes of the shoulders and spine. No acute osseous abnormality. Procedure Note Krystal Encinas MD, PhD - 06/06/2025 XR CHEST PORTABLE Referring clinician's provided indication for this examination in [facility]:Dyspnea (Shortness of Breath) COMPARISON: XR CHEST [...] (hepatic panel) (06/05/2025 10:30 PM EDT) Pathologist [facility] ALKALINE PHOSPHATASE 125(H) 39 - 117 U/L [facility] TOTAL BILIRUBIN 0.4 0.0 - 1.2 mg/dL [facility] DIRECT BILIRUBIN 0.2 0.0 - 0.2 mg/dL [facility] Bilirubin (Indirect) 0.2 0 - 1.5 mg/dL [facility] AST 14 0 - 37 U/L [facility] ALT 10 0 - 40 U/L [facility] TOTAL PROTEIN 6.4(L) 6.5 - 8.0 g/dL [facility] ALBUMIN 3.6(L) 3.9 - 4.8 g/dL [facility] GLOBULIN 2.8 1 - 4.8 g/dL [facility] A/G Ratio 1.29 1.00 - 4.80 RATIO [facility] Blood 06/05/2025 10:3 0 PM EDT 06/05/2025 10:35 PM EDT us Gumaro Hernandez DO LAB BLOOD BKR ORDERABLES Alyssa medina Result [facility] [address] [place] [address] * (ABNORMAL) CBC and differential (06/05/2025 10:30 PM EDT) [facility] WBC 9.35 4.00 - 11.00 K/uL [facility] RBC 2.64(L) 4.00 - 5.20 M/uL [facility] HGB 8.6(L) 12.0 - 16.0 g/dL [facility] HCT 25.9(L) 36.0 - 46.0 % [facility] PLT 190 150 - 450 K/uL [facility] MCV 98.1 80.0 - 100.0 fL [facility] MCH 32.6(H) 27.0 - 31.0 pg [facility] MCHC 33.2 32.0 - 36.0 g/dL [facility] RDW 13.2 11.5 - 14.5 % [facility] MPV 9.8 8.4 - 12.0 fL [facility] NRBC 0.00 0.00 /100 WBCs [facility] ABSOLUTE NRBC 0.00 0.00 K/uL [facility] DIFF METHOD Auto [facility] NEUTS 72.8 48.0 - 76.0 % [facility] LYMPHS 14.8(L) 18.0 - 41.0 % [facility] MONOS 8.7 4.0 - 11.0 % [facility] EOS 2.7 0.0 - 5.0 % [facility] BASOS 0.6 0.0 - 1.5 % [facility] Granulocytes, immature (%) 0.4 0.0 - 0.9 % [facility] ABSOLUTE NEUTS 6.81 1.92 - 7.60 K/uL [facility] ABSOLUTE LYMPHS 1.38 0.72 - 4.10 K/uL [facility] ABSOLUTE MONOS 0.81 0.16 - 1.10 K/uL [facility] ABSOLUTE EOS 0.25 0.00 - 0.50 K/uL [facility] ABSOLUTE BASOS 0.06 0.00 - 0.15 K/uL [facility] Granulocytes, immature 0.04 0.00 - 0.09 K/uL [facility] Blood 06/05/2025 10:3 0 PM EDT 06/05/2025 10:35 PM EDT us Gumaro Hernandez DO LAB BLOOD BKR ORDERABLES Alyssa l Result [address] [address] * (ABNORMAL) Basic metabolic panel (06/05/2025 10:30 PM EDT) SODIUM 135 133 - 146 mmol/L [facility] CHLORIDE 96 96 - 108 mmol/L [facility] POTASSIUM 4.0 3.3 - 5.1 mmol/L [facility] CO2 26 21 - 35 mmol/L [facility] BUN 42(H) 6 - 19 mg/dL [facility] CREATININE 3.30(H) 0.5 - 1.5 mg/dL [facility] GLUCOSE 321(H) 70 - 99 mg/dL [facility] CALCIUM 8.1(L) 8.4 - 10.3 mg/dL [facility] EGFR 15(L) >59 mL/min/1.7 3m2 [facility] Comment:Estimated glomerular filtration rate calculated using the CKD-EPI refit equation. ANION GAP 17 10 - 20 mmol/L [facility] Blood 06/05/2025 10:3 0 PM EDT 06/05/2025 10:35 PM EDT us Gumaro G Hernandez DO LAB BLOOD BKR ORDERABLES Alyssa l Result [address] [address] * ECG 12-LEAD (06/05/2025 10:03 PM EDT) Ventricular Rate EKG/MIN 67 BPM [facility] Atrial Rate 67 BPM [facility] IN Interval 144 ms [facility] QRS Duration 96 ms [facility] QT Interval 466 ms [facility] QTC Interval 492 ms [facility] R Wave Howard -40 degrees [facility] T Wave Howard 50 degrees [facility] 06/05/2025 10:0 3 PM EDT 06/06/2025 8:56 AM EDT Narrative [facility] - 06/06/2025 8:56 AM EDT Normal sinus rhythm Left axis deviation Prolonged QT Abnormal ECG When compared with ECG of 05-Apr-2025 16:16, No significant change was found Confirmed by Zackary August ([id number]) on 06/06/2025 8:56:48 AM us Gumaro G Hernandez DO ECG ORDERABLES Final Result [facility] * Hepatitis B surface antigen (04/24/2025 11:00 AM EDT) HBV SURFACE ANTIGEN NON-REACTI VE NON-REACTI VE [facility] Blood 04/24/2025 11:0 0 AM EDT 04/25/2025 8:15 AM EDT us Chemo Esteban MD LAB BLOOD BKR ORDERABLES Final R esult [address] [address] * (ABNORMAL) Hemoglobin A1c (04/06/2025 6:33 AM EDT) HEMOGLOBIN A1C 7.0(H) 4.3 - 5.8 % [facility] Blood 04/06/2025 6:33 AM EDT 04/06/2025 6:37 AM EDT us Joseph Green MD LAB BLOOD BKR ORDERABLES Final Result Performing Organization Address City/[facility]/ZIP Co de Phone Number [address] [address] from Last 3 Months or Most Recently Relevant to Health Maintenance [place] [address] [place] [address] [place] [address] [place] [id number] MEDICARE PART A & B [facility] RE[facility] [place] [address] [place] [address] MEDICARE REPLACEMENT [facility] MEDICARE PART A & B [facility] MEDICARE REPLACEMENT [facility] MEDICARE PART A & B [facility] MEDICARE REPLACEMENT [place] MEDICARE PART A & B MEDICARE REPLACEMENT [place] MEDICARE PART A & B Advance Directives For more information, please contact: [phone] (9AM - 5PM [facility], Wednesday-Wednesday) Documents on File Type Date Recorded Patient Hand Iii Cutter Expl anation Healthcare Proxy 05/02/2025 2:05 PM Healthcare Proxy 04/18/2025 9:29 AM health care proxy * Full Code (Latest Code Status on File) Date Activated Date Inactivated Comments 04/05/2025 8:51 PM Question Answer Comments Code Status Confirmed With: Patient Code Status Communicated To: Inpatient Attending Care Teams Melter Helper Relationship Specialty Start Date End Date Alexi Lynne MD [address] [place] [address] [place] [address] PCP - General Internal Medicine 04/05/25 Additional Source Comments The information contained in this document represents components of the legal health record. It is not the complete legal health record.[facility]
--- OUTSIDE RECORDS SUMMARY | 2025-08-09 23:37 | XMS_ITS | Clinical Summary ---
Author Organization [facility] Address [address] [place] [address] Care Team Providers Care Rn Shift Mgr Name Role Phone Terry Ochoa MD Primary Care Provider [phone] Allergies No known active allergies Medications amLODIPine [...] time each day Active epoetin silverio (PROCRIT/EPOGEN) 65238 UNIT/ML injection Inject 20,000 Units under the [...] Monovalent, 30 mcg/0.3 ml 08/13/2021 Covid-19, Vector-nr (Hstry), 0.5 Ml 01/29/2021 Covid-19, mRNA (Pfizer Pre [...] Zoster (Zostavax) Discontinued Procedures * Due to [employer] law, this organization might not be sharing [...] for evaluation. Endocervical/correia sformation zone component present. [facility] Cytology, Pap Smear Negative for intraepithelial lesion or malignancy. [facility] Cytology study comment (Cvx/Vag) This Pap test has been evaluated with computer assisted technology. [facility] Rn Perioperative (Cvx/Vag) [address](ASCP) CT screening location: [place] [address] [facility] COMMENT SEE NOTE [facility] Comment: EXPLANATORY NOTE: The Pap is [...] HPV MRNA E6/E7 Not Detected Not Detected [facility] Comment: Methodology: Perinatal Tech-Mediated Amplification This assay detects E6/E7 viral messenger RNA (mRNA) from 14 high-risk HPV types (16,18,31,33,35,39,45,51,52,56,58,59,66,68). The analytical performance characteristics of this assay have been determined by [facility]. The modifications have not been cleared or approved by the FDA. This assay has been validated pursuant to the CLIA regulations and is used for clinical purposes. For additional information, please refer to http://education.[employer]/faq/CUH043o4 (This link if provided for information/ educational purposes only.) 11/17/2021 4:35 PM EDT 11/17/2021 9:57 PM EDT Narrative Resulting Agency Comment [id number] us Lois Carreno MD PATHOLOGY-INTERFACED Final Resul t [facility] [address] [place] [address] from Last 3 Months or Most Recently Relevant to Health Maintenance Insurance MEDICAID [employer] MEDICARE Care Teams Rn Shift Mgr Relationship Specialty Start Date End Date Terry Ochoa MD [facility] [place] [address] [place] [address] PCP - General Internal Medicine 09/30/21
--- OUTSIDE RECORDS SUMMARY | 2025-08-09 23:37 | XMS_ITS | Encounter Summary ---
Author Organization [facility] Address [address] [place] [address] Care Team Providers Care Metal Dresser Name Role Phone Terry Ochoa MD Primary Care Provider [phone] Encounter Details Date Type Department Care Team ([facility] st Contact Info) Description 11/17/2021 Orders Only [facility] [employer] [facility] [address] [place] [address] Lois Carreno MD [address] [place] [id number] Social History Tobacco Use Types Packs/Day Years [...] of this encounter Procedures * Due to [employer] [facility] [place] law, this organization might not be sharing negative HIV tests. Procedure Name Priority Date/Time Associated Diagnosis Comments THINPREP TIS PAP AND HPV RNA, HR E6/E7, TMA Routine 11/17/2021 4:35 PM EDT Screening for malignant neoplasm of cervix documented in this encounter Results * Due to [employer] [place] law, this organization might not be sharing negative HIV tests. * THINPREP TIS PAP AND HPV RNA, HR E6/E7, TMA (11/17/2021 4:35 PM EDT) Clinical information Postmenopausal [facility] Date last menstrual period POSTMENOPAUSAL [facility] Date of previous PAP smear NONE GIVEN [facility] Date of previous biopsy NONE GIVEN [facility] Specimen source (Cvx/Vag) None given [facility] Statement of Adequacy (Cvx/Vag) Satisfactory for evaluation. Endocervical/correia sformation zone component present. [facility] Cytology, Pap Smear Negative for intraepithelial lesion or malignancy. [facility] Cytology study comment (Cvx/Vag) This Pap test has been evaluated with computer assisted technology. [facility] [facility] Robot Designer (Cvx/Vag) [address](ASCP) CT screening location: [place] [address] [facility] COMMENT SEE NOTE [facility] Comment: EXPLANATORY NOTE: The Pap is [...] HPV MRNA E6/E7 Not Detected Not Detected [facility] Comment: Methodology: Scale Shooter-Mediated Amplification This assay detects E6/E7 viral messenger RNA (mRNA) from 14 high-risk HPV types (16,18,31,33,35,39,45,51,52,56,58,59,66,68). The analytical performance characteristics of this assay have been determined by [facility]. The modifications have not been cleared or approved by the FDA. This assay has been validated pursuant to the CLIA regulations and is used for clinical purposes. For additional information, please refer to http://education.[facility]/faq/SIJ885o7 (This link if provided for information/ educational purposes only.) 11/17/2021 4:35 PM EDT 11/17/2021 9:57 PM EDT Narrative Resulting Agency Comment [id number] us Lois Carreno MD PATHOLOGY-INTERFACED Final Resul t Performing Organization Address City/State/[facility] Co de Phone Number [facility] [address] [place] [address] documented in this encounter Visit Diagnoses Diagnosis Screening for malignant neoplasm of cervix Screening for malignant neoplasm of the cervix documented in this encounter Care Teams Metal Dresser Relationship Specialty Start Date End Date Terry Ochoa MD [facility] [place] [address] [place] [address] PCP - General Internal Medicine 09/30/21 documented as of this encounter
--- OUTSIDE RECORDS SUMMARY | 2025-08-09 23:37 | XMS_ITS | Clinical Summary ---
Author Organization [facility] Address [address] [place] [address] Phone Care Team Providers Care Customer Complaint Clerk Name Role Phone Alexi Lynne MD Primary Care Provider [phone] Allergies Active Allergy Reactions Criticality Noted Date Comments Canagliflozin 05/30/2025 Metformin 05/30/2025 Encounters Date Type Department Care Team Description 05/30/2025 3:22 PM EDT - 05/30/2025 8:[address] [facility] Emergency [address] [place] [address] Dain Das MD Dizziness (Primary [...] CBC auto differential (05/30/2025 5:24 PM EDT) [facility] Signature WBC 9.8 4.8 - 10.8 K/mcL LAB HEMETOLOGY METHOD 05/30/2025 5:47 PM EDT [facility] RBC 2.90(L) 3.80 - 4.80 M/mcL LAB HEMETOLOGY METHOD 05/30/2025 5:47 PM EDT [facility] Hemoglobin 9.5(L) 11.5 - 16.0 g/dL LAB HEMETOLOGY METHOD 05/30/2025 5:47 PM EDT [facility] Hematocrit 28.6(L) 35.0 - 47.0 % LAB HEMETOLOGY METHOD 05/30/2025 5:47 PM EDT [facility] MCV 97.3 79.0 - 98.0 FL LAB HEMETOLOGY METHOD 05/30/2025 5:47 PM EDT [facility] MCH 32.3(H) 27.0 - 32.0 pcg LAB HEMETOLOGY METHOD 05/30/2025 5:47 PM EDT [facility] MCHC 33.2 32.0 - 37.0 g/dL LAB HEMETOLOGY METHOD 05/30/2025 5:47 PM EDT [facility] RDW 13.6 11.0 - 15.0 % LAB HEMETOLOGY METHOD 05/30/2025 5:47 PM EDT [facility] Platelets 206 130 - 400 K/mcL LAB HEMETOLOGY METHOD 05/30/2025 5:47 PM EDT [facility] MPV 9.7 7.0 - 11.0 FL LAB HEMETOLOGY [facility] NRBC 0.0 <1.0 % LAB HEMETOLOGY METHOD 05/30/2025 5:47 PM EDT [facility] NRBC Absolute 0.00 <0.10 K/mcL LAB HEMETOLOGY METHOD [facility] Neutrophils Relative 78.6 % LAB HEMETOLOGY METHOD 05/30/2025 5:47 PM EDT [facility] Lymphocytes Relative 11.6 % LAB HEMETOLOGY METHOD 05/30/2025 5:47 PM EDT [facility] Monocytes Relative 7.2 % LAB HEMETOLOGY METHOD 05/30/2025 5:47 PM EDT [facility] Eosinophils Relative 1.6 % LAB HEMETOLOGY METHOD [facility]/30/2025 5:47 [facility] Basophils Relative 0.6 % LAB HEMETOLOGY METHOD 05/30/2025 5:47 PM EDT [facility] Immature Granulocytes Relative 0.4 % LAB HEMETOLOGY METHOD 05/30/2025 5:47 PM EDT [facility] Neutrophils Absolute 7.73(H) 1.50 - 7.00 K/mcL LAB HEMETOLOGY METHOD 05/30/2025 5:47 PM EDT [facility] Lymphocytes Absolute 1.14 1.00 - 5.00 K/mcL LAB HEMETOLOGY METHOD 05/30/2025 5:47 PM EDT [facility] Monocytes Absolute 0.71 0.20 - 1.00 K/mcL LAB HEMETOLOGY METHOD 05/30/2025 5:47 PM EDT [facility] Eosinophils Absolute 0.16 0.00 - 0.50 K/[facility] LAB HEMETOLOGY METHOD 05/30/2025 5:47 PM EDT [facility] Basophils Absolute 0.06 0.00 - 0.20 K/mcL LAB HEMETOLOGY METHOD 05/30/2025 5:47 PM EDT [facility] Immature Granulocytes Absolute 0.04(H) 0.00 - 0.03 K/mcL LAB HEMETOLOGY METHOD 05/30/2025 5:47 PM EDT [facility] Blood Venous blood specimen / Unknown Venipuncture / Unknown 05/30/2025 5:24 PM EDT 05/30/2025 5:36 PM EDT us Dain Das MD LAB BLOOD ORDERABLES Final Resu lt [facility] [address] [place] [address], * (ABNORMAL) Basic Metabolic Panel (BMP) (05/30/2025 5:24 PM EDT) Sodium 136 133 - 145 mmol/L LAB CHEMISTRY METHOD 05/30/2025 6:05 PM EDT [facility] Potassium 3.8 3.5 - 5.5 mmol/L LAB CHEMISTRY METHOD 05/30/2025 6:05 PM [facility] Chloride 99 96 - 110 mmol/L LAB CHEMISTRY METHOD 05/30/2025 6:05 PM [facility] CO2 27 21 - 32 mmol/L LAB CHEMISTRY METHOD 05/30/2025 6:05 PM [facility] Anion Gap 10 3 - 11 LAB CHEMISTRY METHOD 05/30/2025 6:05 PM [facility] Glucose 200(H) 70 - 100 mg/dL LAB CHEMISTRY METHOD 05/30/2025 6:05 PM [facility] BUN 29(H) 5 - 25 mg/dL LAB CHEMISTRY METHOD 05/30/2025 6:05 PM [facility] Creatinine 2.85(H) 0.50 - 1.10 mg/dL LAB CHEMISTRY METHOD 05/30/2025 6:05 PM [facility] eGFR 18(L) >=60 mL/min/1. 73m2 LAB CHEMISTRY METHOD 05/30/2025 6:05 PM [facility] Comment:Calculation based on the Chronic Kidney Disease Epidemiology Collaboration (CKD-EPI) equation refit without adjustment for race. BUN/Creatinine Ratio 10.2 LAB CHEMISTRY METHOD 05/30/2025 6:05 PM [facility] Calcium 8.5 8.5 - 10.5 mg/dL LAB CHEMISTRY METHOD 05/30/2025 6:05 PM [facility] Blood Venous blood specimen / Unknown Venipuncture / Unknown 05/30/2025 5:24 PM EDT 05/30/2025 5:36 PM EDT us Dain Das MD LAB BLOOD ORDERABLES Final Resu lt [facility] [address] [place] [address], [place] [phone] * 12-Lead ECG (05/30/2025 4:11 PM EDT) Ventricular Rate ECG 63 BPM GEMUSE Atrial Rate 63 BPM GEMUSE P-R Interval 144 ms GEMUSE QRS Duration 96 ms GEMUSE Q-T Interval 484 ms GEMUSE QTc 495 ms GEMUSE P Wave [place] 18 degrees GEMUSE R [place] -40 degrees GEMUSE T [place] 18 degrees GEMUSE ECG Interpretation Normal sinus rhythm Left axis deviation Abnormal ECG No previous ECGs available Confirmed by ZEUS WELLS ([id number]) on 05/31/2025 5:46:40 PM GEMUSE 05/30/2025 4:11 PM EDT 05/31/2025 5:46 PM EDT us Dain Das MD ECG ORDERABLES Final Result GEMUSE from Last 3 Months Insurance [employer] MEDICARE MEDICAID - [place] Care Teams Customer Complaint Clerk Relationship Specialty Start Date End Date Alexi Lynne MD [address] [place] [address] [address] [facility] PCP - General Internal Medicine 05/30/25
== END 2025-08-09 23:20 | disposition home or self-care (01) ==
PROVIDERS: Nurse Practitioner; Emergency Provider Emergency Medicine
DX: E65 Localized adiposity (principal); R06.02 Shortness of breath; I12.0 Hypertensive chronic kidney disease with stage 5 chronic kidney disease or end stage renal disease; R09.02 Hypoxemia; E11.22 Type 2 diabetes mellitus with diabetic chronic kidney disease; N18.6 End stage renal disease; Z79.4 Long term (current) use of insulin; Z79.899 Other long term (current) drug therapy
CPT/HCPCS: 36415; 71045; 74176; 80053; 81001; 81003; 83880; 85025; 87086; 99284; 99285

== ENCOUNTER → 2025-08-09 19:00 | Outpatient (BNV) | payer MEDICARE, MEDICAID, SELFPAY | PROVIDERS: Visit Provider Student in an Organized Health Care Education/Training Program | DX: K74.60 Unspecified cirrhosis of liver (principal); R60.0 Localized edema; E87.70 Fluid overload, unspecified | CPT/HCPCS: 71045; 74176 ==

== ENCOUNTER 2025-08-28 12:51 | Inpatient (IN) | payer MEDICARE, MEDICAID, SELFPAY ==
--- NOTE | ~2025-08-28 | XR_ITS ---
EXAMINATION: XR CHEST 1 VIEW HISTORY: Pulmonary edema COMPARISON: Comparison is made with the prior examination dated 08/09/2025. FINDINGS: A single AP portable view of the chest performed at 3:25 PM is submitted. Again seen is scarring at the left lung base. The remainder of the lungs are clear. There is no pleural effusion, pneumothorax, or pulmonary vascular congestion. The heart is normal in size given technique. There is degenerative disc disease of the spine. XR/XR chest 1V IMPRESSION: No acute cardiopulmonary abnormality. Electronically signed by: Jason Palmer MD 08/28/2025 03:34 PM EST
[2025-08-28 13:51] VITALS: BP 131/47; BP 190/72; PULSE 59; PULSE 60; RESP 20; TEMP 35.9; O2SAT 100; O2SAT 98; BMI 74.8
--- NOTE | 2025-08-28 14:02 | ECG_ITS ---
Test Reason : HYPERKALEMIA Blood Pressure : */* mmHG Vent. Rate : 59 BPM Atrial Rate : * BPM P-R Int : * ms QRS Dur : 120 ms QT Int : 472 ms P-R-T Axes : * -53 72 degrees QTcB Int : 467 ms Artifact in tracing probably sinus rhythm Left anterior fascicular block Minimal voltage criteria for LVH, may be normal variant ( Luciano product ) Abnormal ECG When compared with ECG of 16-Jul-2025 02:07, QRS duration has increased Referred By: Shanika Leone Electronically Signed By: DIXIE GAITAN
--- NOTE | 2025-08-28 14:11 | ED_ITS ---
HPI - General Adult General Chief complaint: General Medical Stated complaint: snf, no dyalisis x 2 weeks, ?UTI Time Seen by Provider: 08/28/25 13:59 Source: patient, EMS and old records reviewed Mode of arrival: EMS Limitations: no limitations History of Present Illness ED Provider: KARLIE MONTELONGO narrative: 65-year-old female with past medical history of CHF, anemia, chronic hypoxia on 2 L, hypertension hyperlipidemia, panniculitis, ESRD on HD Wednesday she admittedly thinks she has not had this dialysis since since admission at [facility] on August 11. She refuses to go to [facility] as she finds the chairs uncomfortable. She states she feels short of breath and thinks she needs dialysis. She also reports her panniculus is inflamed and sore. She states this is why she does not go to for [facility] because it years or so uncomfortable they make her coccyx area and panniculus sore complaint: Needs HD Onset (ago): week(s) Location: abdomen Radiation: non-radiation Severity: moderate Quality: burning Pain Consistency: intermittent Relieving factors: none Exacerbating factors: movement Associated symptoms: denies other symptoms Treatments prior to arrival: none Related Data Home Medications ?Medication ?Instructions ?Recorded ?Confirmed nystatin 100,000 unit/gram topical 1 appl topical TID PRN Rash 07/11/22 07/30/25 cream insulin lispro 100 unit/mL See Protocol subcut TIDAC 1 09/08/24 07/30/25 subcutaneous solution (Humalog U-100 Insulin) pantoprazole 20 mg tablet,delayed 20 mg PO DAILY@0630 07/09/25 07/30/25 release triamcinolone acetonide 0.1 % 1 appl topical TID PRN D iabetic 07/09/25 07/30/25 topical ointment Psoriasis acetaminophen 325 mg tablet 650 mg PO Q4H PRN Pain (Sc mallory 07/30/25 07/30/25 Score 4-6) albuterol 90 mcg-budesonide 80 2 inh inhalation Q4H ID N Shortness 07/30/25 07/30/25 mcg/actuation HFA aerosol inhaler Of Breath/WHEEZE (Airsupra) bisacodyl 10 mg rectal suppository 10 mg ID DAILY PRN Constipation 07/30/25 07/30/25 polyethylene glycol 3350 17 17 g PO DAILY 07/30/2509/23 gram/dose oral powder (Miralax) sodium phosphates 19 gram-7 118 ml ID DAILY PRN Consti pation 07/30/25 07/30/25 gram/118 mL enema (Fleet Enema) Previous Rx's ?Medication ?Instructions ?Recorded blood sugar diagnostic #200 ea 12/05/21 blood sugar diagnostic (Accu-Chek #300 ea 12/05/21 Berna Plus test strips) hospital bed #1 ea 07/06/22 pen needle, diabetic 32 gauge x #100 ea 07/07/22 insulin syringe-needle U-100 1 mL #100 ea 07/08/22 30 gauge x 1/2 (BD Insulin Syringe Ultra-Fine) amlodipine 10 mg tablet 10 mg PO DAILY 30 days #30 t abs 06/11/25 docusate sodium 100 mg capsule 100 mg PO DAILY 30 days #30 caps 06/11/25 gabapentin 100 mg capsule 100 mg PO BID 30 days #60 ca ps 06/11/25 hydralazine 25 mg tablet 25 mg PO TID 30 days #30 tab s 06/11/25 insulin glargine 100 unit/mL (3 20 unit (0.2 mL) subcu t BEDTIME 30 06/11/25 mL) subcutaneous pen (Lant #3 mL Solostar U-100 Insulin) ondansetron 4 mg disintegrating 4 mg translingual TIDA C PRN nausea 06/11/25 tablet 30 days #12 tabs oxybutynin chloride 15 mg 15 mg PO DAILY 30 days #30 t abs 06/11/25 tablet,extended release 24 hr ropinirole 0.25 mg tablet 0.25 mg PO BEDTIME 30 days # 30 tabs 06/11/25 sennosides 8.6 mg tablet (senna) 17.2 mg (2 x 8.6 mg) PO BEDTIME 30 06/11/25 days #30 tabs metoprolol tartrate 25 mg tablet 12.5 mg (1/2 x 25 mg) PO BID #60 06/21/25 tabs amoxicillin 875 mg-potassium 1 tab PO BID 2 days #4 ta bs 08/02/25 clavulanate 125 mg tablet doxycycline hyclate 100 mg tablet 100 mg PO BID 2 days #4 tabs 08/02/25 Allergies Allergy/AdvReac Type Severity Reaction Status Date / Time metformin (METFORMIN) Allergy Severe HIVES Verified 08/28/25 13:54 heparin Allergy Intermediate Itching Verified 08/28/25 13:54 canagliflozin (From Invokana) Allergy Hives Verified 08/28/25 13:54 Review of Systems 2 Review of Systems: Yes all other systems are reviewed and are negative [facility] Past Medical History Attestation statement: The following information was validated with the patient. Source: old records reviewed Medical History HTN (hypertension) HLD (hyperlipidemia) Frequent UTI Anemia Acute on chronic diastolic (congestive) heart failure Type 2 diabetes mellitus with obesity Clostridium difficile diarrhea Morbid obesity Detrusor dysfunction Bladder outlet obstruction Esophagitis CKD (chronic kidney disease) stage 4, GFR 15-29 ml/min Hypothyroidism IBS (irritable bowel syndrome) Surgical History History of tubal ligation Family History Family History Father Diabetes Mother Diabetes Hypertension Breast cancer Family/Other Breast cancer Uterine cancer Social History Social History Household Members: None Housing: Apartment Do you presently have visiting nurse or other home services: Yes Alcohol intake: never Comment: bedbound at baseline Patient Tobacco Use Status: Former Tobacco user e-Cigarette/Vaping Use: Never Used Second Hand Smoke Exposure: No Advance Directives: Yes Advance Directives on File: Yes Advance Directives Date on File: 03/18/23 service: No Current occupational status: disabled Cognitive needs: No Hearing needs: No Vision needs: Yes Physical Exam ED Vital Signs: Vital Signs - 24 hr 08/28/25 13:51 08/28/25 15:21 Temperature 96.6 F L 97.7 F Pulse Rate 59 63 Respiratory Rate 20 16 Blood Pressure 131/47 L 103/63 Pulse Oximetry 100 100 Oxygen Delivery Method Nasal Cannula Room Air BMI result Body Mass Index 74.8 Appearance: Alert. Oriented X3. No acute distress. Eyes: Pupils equal, round and reactive to light. ENT: Pharynx normal. Neck: Normal inspection. Neck supple. CVS: Normal heart rate and rhythm. Pulses normal. Respiratory: No respiratory distress. Breath sounds normal. Abdomen: Soft and nontender. Obese No signs of infection of the pannicular Skin: Skin warm and dry. Normal skin color. Normal skin turgor. Extremities: 1+ ankle symmetric pitting lower extremity edema. Neuro: Oriented X 3. No motor deficit. No sensory deficit. Course Course Course Narrative: 4:08 PM 08/28/2025 (KARLIE LOPEZ): Your EKG is normal sinus rhythm she is not in AFib suspect lytes and BUN cause irregular EKG Medications Administered Discontinued Medications Generic Name Dose Route Start Last Admin Trade Name Freq PRN Reason Stop Dose Admin Sodium Zirconium Cyclosilicate 5 gm 08/28/25 15:10 08/28/25 15:31 Sodium Zirconium Cyclosilicate 5 Gm Powd.Pack PO 08/28/25 15:11 5 gm ONCE ONE Administration Medical Decision Making Medical Decision Making [facility] Narrative: 65-year-old female with past medical history of CHF, anemia, hypertension hyperlipidemia, panniculitis, ESRD on HD Wednesday presents with request for inpatient dialysis as she does not like preceding his kidney Care Center. She reports she has some shortness of breath. She states she has not dialysis since August 11 at [facility]. At this time I am going to obtain EKG, chest x-ray, potassium. She is also complaining of irritation to her panniculus which she has had before. We are trying to move her into a room so that this can be assessed. There is no signs of infection on her pannus Differential Diagnosis Differential Diagnoses: The differential diagnosis associated with the presentation includes Hyperkalemia, volume overload, noncompliance, skin ulceration Admission/Observation Consideration of admission/observation: Escalation of care including admission/observation considered Given the BUN will admit for further workup Consult Healthcare Provider Management of the patient was discussed with: Hospitalist (Will admit) and Cooker Tender (nephrology aware, Dr. Bassett) Lab Data [facility] Lab Attestation statement: I reviewed the patient's lab results. Potassium is 5.5 I am giving oral Lokelma 08/28/25 14:48 08/28/25 14:48 Labs: Lab Results 08/28/25 Range/Units 14:48 WBC 8.0 (4.8-10.8) X10*3/uL RBC 2.79 L (4.20-5.50) X10*6/uL Hgb 8.5 L (12.0-16.0) g/dl Hct 25.5 L (37.0-47.0) % MCV 91.4 (80.0-98.0) fL MCH 30.5 (27.0-33.0) pg MCHC 33.3 (31.0-35.0) g/dl RDW 14.6 (11.0-16.0) % Plt Count 168 (160-400) X10*3/uL MPV 10.7 (9.4-12.3) fL Immature Gran % (Auto) 0.4 (0.0-0.4) % Neut % (Auto) 75.8 H (45-73) % Lymph % (Auto) 10.5 L (20-40) % Brooke % (Auto) 8.9 (2-11) % Eos % (Auto) 4.0 (0-4) % Baso % (Auto) 0.4 (0-2) % Lymph # (Auto) 0.8 L (1.2-4.9) X10*3/uL Brooke # (Auto) 0.7 (0.1-1.2) X10*3/uL Eos # (Auto) 0.3 (0.0-0.4) X10*3/uL Baso # (Auto) 0.0 (0.0-0.2) X10*3/uL Abs Immat Gran (auto) 0.03 (0.00-0.03) X10*3/uL Absolute Neuts (auto) 6.1 (2.0-8.3) x10*3/uL Absolute Nucleated RBC 0.000 (0.0-0.012) X10*3/uL Nucleated RBC % (auto) 0.0 (0.0-0.2) /100WBC Sodium 130 L (135-145) mmol/L Potassium 5.6 H (3.3-5.1) mmol/L Chloride 97 (96-108) mmol/L Carbon Dioxide 20 L (22-29) mmol/L Anion Gap 19 (12-20) BUN 162 H (9-16) mg/dL Creatinine 6.07 H* (0.5-1.4) mg/dL Estim Creat Clear Calc 13.7 Estimated GFR 7 Random Glucose 207 H (60-115) mg/dL Calcium 8.1 L (8.4-10.2) mg/dL Total Bilirubin 0.4 (0.0-1.0) mg/dL AST 18 (5-31) U/L ALT 12 (0-31) U/L Alkaline Phosphatase 153 H (39-117) U/L Total Protein 7.1 (6.5-8.0) g/dL Albumin 3.8 (3.5-5.0) g/dL Independent Interpretation I performed an independent interpretation of an: EKG and Plain X-Ray (No edema) Interpretation: Rate: 59 Rhythm: Irregular ?small p waves Christine: Left Widened ST T wave : No ST-elevation flat T-waves in V1 V2 qTC: 467 prior studies: Irregular this is new The study has been interpreted contemporaneously by me. EKG #2 Rate: 62 Rhythm: NSR Christine: left Normal P waves. Normal MEMO. Normal QRS complex. ST T wave : inverted t waves V1 and aVL, no BRANDIE qTC: 468 prior studies: no acute ischemia The study has been interpreted contemporaneously by me. . Radiology Impression Discussion of test interpretation with radiology: I have reviewed the radiologist's reading. Independent Historian Clinical information obtained from an independent historian. History obtained from or confirmed by: EMS External Record Review External record reviewed: Inpatient record, Office record, Outpatient record and Prior outpatient labs Chronic Conditions Noncompliance Discharge Plan Discharge Clinical Impression: End-stage renal disease (ESRD), Acute uremia Patient Disposition: Admitted As Inpatient Print Language: Macedonian
[2025-08-28 14:53] LABS: MANUAL DIFF FLAG NO
[2025-08-28 14:54] LABS: Hematocrit 25.5 % (37.0-47.0); Hemoglobin 8.5 g/dl (12.0-16.0); Imm Gran Abs Auto 0.03 X10*3/uL (0.00-0.03); Imm Gran Pct Auto 0.4 % (0.0-0.4); Lymphocytes Absolute Auto 0.8 X10*3/uL (1.2-4.9); Mean Corpuscular HGB Conc 33.3 g/dl (31.0-35.0); Mean Corpuscular Hemoglobin 30.5 pg (27.0-33.0); Mean Corpuscular Volume 91.4 fL (80.0-98.0); NRBC Abs Auto 0.000 X10*3/uL (0.0-0.012); NRBC Pct Auto 0.0 /100WBC (0.0-0.2); Platelet Count 168 X10*3/uL (160-400); Red Blood Count 2.79 X10*6/uL (4.20-5.50); White Blood Count 8.0 X10*3/uL (4.8-10.8)
[2025-08-28 15:11] LABS: Alanine Aminotransferase 12 U/L (0-31); Albumin Level 3.8 g/dL (3.5-5.0); Alkaline Phosphatase 153 U/L (39-117); Anion Gap 19 (12-20); Aspartate Amino Transferase 18 U/L (5-31); Calcium 8.1 mg/dL (8.4-10.2); Carbon Dioxide 20 mmol/L (22-29); Chloride 97 mmol/L (96-108); Creatinine Clr Calc Pharmacy 13.7; Estimated Glomerular Filt Rate 7; Potassium 5.6 mmol/L (3.3-5.1); Sodium 130 mmol/L (135-145); Total Protein 7.1 g/dL (6.5-8.0)
[2025-08-28 15:18] LABS: Blood Urea Nitrogen 162 mg/dL (9-16)
[2025-08-28 15:21] VITALS: BP 103/63; PULSE 63; RESP 16; TEMP 36.5; O2SAT 100
--- NOTE | 2025-08-28 15:59 | ECG_ITS ---
Test Reason : DYSPNEA Blood Pressure : */* mmHG Vent. Rate : 62 BPM Atrial Rate : 60 BPM P-R Int : 114 ms QRS Dur : 122 ms QT Int : 462 ms P-R-T Axes : -44 -51 73 degrees QTcB Int : 468 ms Undetermined rhythm - probable sinus Left anterior fascicular block Minimal voltage criteria for LVH, may be normal variant ( Luciano product ) Cannot rule out Anterior infarct , age undetermined Abnormal ECG When compared with ECG of 28-Aug-2025 14:33, Current undetermined rhythm precludes rhythm comparison, needs review Referred By: Oumou Blackwell Electronically Signed By: DIXIE GAITAN
--- OUTSIDE RECORDS SUMMARY | 2025-08-28 17:52 | XMS_ITS | Clinical Summary ---
Author Organization [facility] Address [address] [place] [address] Care Team Providers Care Regional Intermodal Truck Driver Name Role Phone Terry Ochoa MD Primary Care Provider [phone] Allergies No known active allergies Medications amLODIPine [...] Active Insulin Glargine, 1 Unit Dial, (Tacho VooStar) 300 UNIT/ML Solution Pen-injector Inject under the skin Active acetaminophen (TYLENOL) 325 MG tablet TAKE 2 TABLETS BY MOUTH EVERY 6 HOURS NEEDED FOR PAIN 01/14/20 21 Active Ascorbic Acid (VITAMIN C) 500 MG tablet Take 500 mg by mouth 1 (one) time each day Active epoetin silverio (PROCRIT/EPOGEN) 63147 UNIT/ML injection Inject 20,000 Units under the [...] Monovalent, 30 mcg/0.3 ml 08/13/2021 Covid-19, Vector-nr ([employer]), 0.5 Ml 01/29/2021 Covid-19, mRNA (Pfizer Pre F all 2022) Bivalent, 30 mcg/0.3 ml rachel-sucrose (12+) dose 05/26/2022 Influenza,injectable,quad,Prsrv Fr 07/21/2022, Influenza,injectable,quad,preservative 7 Social History Tobacco Use Types Packs/Day Years Used Date Smoking Tobacco: Former Cigarettes 0.3 Q uit: 09/30/2008 Smokeless Tobacco: Never Intimate [...] Last Done Comments Hepatitis C Screening 1960 MMR (Born 1958-) 1960 DTaP/Tdap/Td (1 - Tdap) 1976 Mammogram/Breast [...] Zoster (Zostavax) Discontinued Procedures * Due to [place] state law, this organization might not be sharing negative HIV tests. Procedure Name Priority Date/Time Associated Diagnosis Comments THINPREP TIS PAP AND HPV RNA, HR E6/E7, TMA Routine 11/17/2021 4:35 PM EDT Screening for malignant neoplasm of cervix from Last 3 Months or Most Recently Relevant to Health Maintenance Results * Due to [place] state law, this organization might not be [...] for evaluation. Endocervical/correia sformation zone component present. [facility] Cytology, Pap Smear Negative for intraepithelial lesion or malignancy. [facility] Cytology study comment (Cvx/Vag) This Pap test has been evaluated with computer assisted technology. [facility] Support Services Specialist (Cvx/Vag) [address](ASCP) CT screening location: [place] [address] [facility] COMMENT SEE NOTE [facility] Comment: EXPLANATORY NOTE: The Pap is a [...] HPV MRNA E6/E7 Not Detected Not Detected [facility] Comment: Methodology: Drug Abuse Counselor-Mediated Amplification This assay detects E6/E7 viral messenger RNA (mRNA) from 14 high-risk HPV types (16,18,31,33,35,39,45,51,52,56,58,59,66,68). The analytical performance characteristics of this assay have been determined by [employer]. The modifications have not been cleared or approved by the FDA. This assay has been validated pursuant to the CLIA regulations and is used for clinical purposes. For additional information, please refer to http://education.[employer].eshtery/faq/TIX707c8 (This link if provided for information/ educational purposes only.) 11/17/2021 4:35 PM EDT 11/17/2021 9:57 PM EDT Narrative Resulting Agency Comment [id number] Lois Carreno MD PATHOLOGY-INTERFACED Final Resul t [facility] [address] [place] [address] from Last 3 Months or Most Recently Relevant to Health Maintenance Insurance MEDICAID [employer] MEDICARE Care Teams Regional Intermodal Truck Driver Relationship Specialty Start Date End Date Terry Ochoa MD [facility] [place] [address] [place] [address] PCP - General Internal Medicine 09/30/21
--- OUTSIDE RECORDS SUMMARY | 2025-08-28 17:52 | XMS_ITS | Clinical Summary ---
Author Organization [facility] Address [address] [facility] [address] [place] [address] Phone Care Team Providers Care Can Washer Name Role Phone Terry Ochoa MD Primary Care Provider [phone] Allergies Active Allergy Reactions Criticality Noted Date [...] Treatment [facility], [address] [place] [address] Benita Garrison FNP-C End stage renal disease; Dependence on renal dialysis 07/20/2025 Orders Only [facility] [address] [place] [address] Alan Mccarthy MD 07/18/2025 Orders Only [facility] [address] [address] Alan Mccarthy MD 07/04/2025 Orders Only [facility] [address] [address] Alan Mccarthy MD 07/04/2025 Treatment [facility] [address] [place] [address] Benita Garrison FNP-C End stage renal disease; Dependence on renal dialysis 07/02/2025 Orders Only [facility] [address] [address] Alan Mccarthy MD 06/20/2025 Orders Only [facility] [address] [address] Alan Mccarthy MD 06/20/2025 Treatment [facility] [address] [place] [address] Benita Garrison FNP-C End stage renal disease; Dependence on renal dialysis 06/08/2025 Orders Only [facility] [address] [address] Alan Mccarthy MD 06/04/2025 Orders Only [facility] [address] [place] [address] Provider, Albert Ordering from Last 3 Months Immunizations Immunization Administration [...] Visual Foot Exam 09/29/2020 Diabetes: Hemoglobin A1C 10/20/2025 025, 02/04/2022, 01/07/2022, Additional history exists Influenza Vaccine Completed 07/20/2025, , 07/21/2022, Additional history exists Procedures Procedure Name Priority [...] 05/30/2025 CHEMISTRY Routine 05/30/2025 HEMATOLOGY Routine 05/30/2025 from Last 3 Months Results * (ABNORMAL) SPECIAL CHEMISTRY (07/20/2025) Only the most recent of2 resultswithin the time period is included. Hemoglobin A1C 8.0(H) 4.8 - 5.9 % [facility] 07/20/2025 07/21/2025 10: 55 AM EST Narrative [facility] - 07/21/2025 Unless otherwise specified, test(s) performed at: [email or web address], [address] [place] [id number] FRENCH CORD BINDER: Michael Fields M.D. For any questions, please call customer service at FREQUENCY:OTHER Resulting Agency Comment Specimen source: Blood Alan Mccarthy MD LAB BLOOD BANK TEST ORDERABLE S Final Result Performing Organization Address [facility] de Phone Number [facility] See order comments or contact performing lab Unknown, [place] * (ABNORMAL) HEMATOLOGY (07/18/2025) Only the most recent of5 resultswithin the time period is included. Hemoglobin 9.6(L) 12.0 - 16.0 g/dL [facility] Hemoglobin x 3 28.8(L) 36.0 - 48.0 % [employer] 07/18/2025 07/19/2025 7:5 8 AM EST Narrative [facility] - 07/19/2025 Unless otherwise specified, test(s) performed at: [email or web address], [address] [place] [id number] FRENCH CORD BINDER: Michael Fields M.D. For any questions, please call customer service at FREQUENCY:OTHER Resulting Agency Comment Specimen source: Blood Alan Mccarthy MD LAB BLOOD ORDERABLES Final Re sult Performing Organization Address [facility] Co de Phone Number [facility] See order comments or contact performing lab Unknown, [place] * HD KINETICS (07/04/2025) Only the most recent of2 resultswithin the time period is included. % Urea Reduction 71 65 - 80 % [facility] 07/04/2025 07/05/2025 3:1 1 PM EST Narrative Resulting Agency Comment Specimen source: Plasma Alan Mccarthy MD LAB BLOOD ORDERABLES Final Re sult Performing Organization Address [facility] de Phone Number [facility] See order comments or contact performing lab Unknown, [place] * POST CHEMISTRY (07/04/2025) Only the most recent of2 resultswithin the time period is included. BUN Post Dialysis 17 6 - 19 mg/dL [facility] 07/04/2025 07/05/2025 3:1 1 PM EST Narrative [facility] - 07/05/2025 Unless otherwise specified, test(s) performed at: [email or web address], [address] [place] [address] FRENCH CORD BINDER: Michael Fields M.D. For any questions, please call customer service at FREQUENCY:MONTHLY Resulting Agency Comment Specimen source: Plasma Alan Mccarthy MD LAB BLOOD ORDERABLES Final Re sult Performing Organization Address [facility] de Phone Number [facility] See order comments or contact performing lab Unknown, [place] * IMMUNO CHEMISTRY (07/04/2025) Only the most recent of3 resultswithin the time period is included. Pathologist [facility] Hep B Surface Ag Negative Negative [facility] 07/04/2025 07/05/2025 9:4 4 AM EST Narrative Resulting Agency Comment Specimen source: Serum Alan Mccarthy MD LAB BLOOD ORDERABLES Final Re sult Performing Organization Address [facility] de Phone Number [facility] See order comments or contact performing lab Unknown, [place] * (ABNORMAL) [facility] (07/04/2025) Only the most recent of5 resultswithin [...] 07/05/2025 Unless otherwise specified, test(s) performed at: [email or web address], [address] [place] [address] FRENCH CORD BINDER: Michael Fields M.D. For any questions, please call customer service at FREQUENCY:MONTHLY Resulting Agency Comment Specimen source: Serum Alan Mccarthy MD LAB BLOOD ORDERABLES Final Re sult [facility] See order comments or contact performing lab Unknown, [place] * [facility] Results (07/04/2025) Only the most recent of2 resultswithin the time period is included. WSTDKT/V 1.6 [facility] PCR 81.90 [facility] nPCR_HD 1.11 [facility] eKt/V ([place]) 1.29 [facility] eNPCR 1.01 [facility] eKdrt/V 1.39 [facility] spKt/V (Daugirdas II) 1.47 [facility] eKt/V Gotch 1.39 Knowled e Center spKt/V Gotch 1.58 [facility] 07/04/2025 07/04/2025 [facility] [place] LAB BLOOD ORDERABLES Final Result [facility] Contact Performing lab Unknown, [place] * TRACE ELEMENTS (05/30/2025) Aluminum <5 0 - 10 mcg/L [facility] Comment: This test was developed and its performance characteristics determined by [email or web address]. It has not been cleared or approved by the FDA. The laboratory is regulated under CLIA as qualified to perform high complexity testing. This test is used for clinical purposes. It should not be regarded as investigational or for research. 05/30/2025 05/31/2025 9:1 1 AM EDT Narrative [facility] - 05/31/2025 Unless otherwise specified, test(s) performed at: [email or web address], [address] [place] [address] FRENCH CORD BINDER: Michael Fields M.D. For any questions, please call customer service at FREQUENCY:MONTHLY Resulting Agency Comment Specimen source: Serum Alan Mccarthy MD LAB BLOOD ORDERABLES Final Re sult [facility] See order comments or contact performing lab Unknown, [place] from Last 3 Months Insurance Medicaid [place] [facility] Medicare Medicaid [place] U[place] Medicare [place]HC Medicare Medicaid [place] Care Teams Can Washer Relationship Specialty Start Date End Date Terry Ochoa MD [address] [place], [place] PCP - General Internal Medicine 07/21/23
--- OUTSIDE RECORDS SUMMARY | 2025-08-28 17:52 | XMS_ITS | Encounter Summary ---
Author Organization [facility] Address [address] [place] [address] Care Team Providers Care Fur Repairer Name Role Phone Terry Ochoa MD Primary Care Provider [phone] Encounter Details Date Type Department Care Team (Late st Contact Info) Description 11/17/2021 Orders Only [facility] EXPORT FREIGHT SPECIALIST [address] [facility] [address] [place] [address] Lois Carreno MD [address] [place] [id number] Social History Tobacco Use Types Packs/Day Years Used Date Smoking Tobacco: Former Cigarettes 0.3 Q uit: 09/30/2008 Smokeless Tobacco: Never Comments [...] of this encounter Procedures * Due to [facility] law, this organization might not be sharing negative HIV tests. Procedure Name Priority Date/Time Associated Diagnosis Comments THINPREP TIS PAP AND HPV RNA, HR E6/E7, TMA Routine 11/17/2021 4:35 PM EDT Screening for malignant neoplasm of cervix documented in this encounter Results * Due to [facility] law, this organization might not be sharing negative HIV tests. * THINPREP TIS PAP AND HPV RNA, HR E6/E7, TMA (11/17/2021 4:35 PM EDT) Clinical information Postmenopausal [facility] Date last menstrual period POSTMENOPAUSAL [facility] Date of previous PAP smear NONE GIVEN [facility] Date of previous biopsy NONE GIVEN [facility] Specimen source (Cvx/Vag) None given [facility] Statement of Adequacy (Cvx/Vag) Satisfactory for evaluation. Endocervical/correia sformation zone component present. [facility] Cytology, Pap Smear Negative for intraepithelial lesion or malignancy. [facility] Cytology study comment (Cvx/Vag) This Pap test has been evaluated with computer assisted technology. [facility] Program Mgr (Cvx/Vag) [address](ASCP) CT screening location: [place] [address] [facility] COMMENT SEE NOTE [facility] Comment: EXPLANATORY NOTE: The Pap is a [...] HPV MRNA E6/E7 Not Detected Not Detected [facility] Comment: Methodology: Employment Officer-Mediated Amplification This assay detects E6/E7 viral messenger RNA (mRNA) from 14 high-risk HPV types (16,18,31,33,35,39,45,51,52,56,58,59,66,68). The analytical performance characteristics of this assay have been determined by [employer]. The modifications have not been cleared or approved by the FDA. This assay has been validated pursuant to the CLIA regulations and is used for clinical purposes. For additional information, please refer to http://education.[employer]/faq/EYY037l0 (This link if provided for information/ educational purposes only.) 11/17/2021 4:35 PM EDT 11/17/2021 9:57 PM EDT Narrative Resulting Agency Comment [id number] us Lois Carreno MD PATHOLOGY-INTERFACED Final Resul t Performing Organization Address City/State/[facility] Co de Phone Number [facility] [address] [place] [address] documented in this encounter Visit Diagnoses Diagnosis Screening for malignant neoplasm of cervix Screening for malignant neoplasm of the cervix documented in this encounter Care Teams Fur Repairer Relationship Specialty Start Date End Date Terry Ochoa MD [facility] [place] [address] [place] [address] PCP - General Internal Medicine 09/30/21 documented as of this encounter
--- OUTSIDE RECORDS SUMMARY | 2025-08-28 17:52 | XMS_ITS | Clinical Summary ---
Author Organization [facility] Address [address] [place] [address] Phone Care Team Providers Care Driver Utility Worker Name Role Phone Alexi Lynne MD Primary Care Provider [phone] Allergies Active Allergy Reactions Criticality Noted Date Comments Canagliflozin 05/30/2025 Metformin 05/30/2025 Encounters Date Type Department Care Team Description 05/30/2025 3:22 PM EDT - 05/30/2025 8:[address] [facility] [address] [place] [address] Dain Das MD Dizziness (Primary [...] CBC auto differential (05/30/2025 5:24 PM EDT) [facility] Signature WBC 9.8 4.8 - 10.8 K/mcL LAB HEMETOLOGY METHOD 05/30/2025 5:[address] [facility] RBC 2.90(L) 3.80 - 4.80 M/mcL LAB HEMETOLOGY METHOD 05/30/2025 5:[address] [facility] Hemoglobin 9.5(L) 11.5 - 16.0 g/dL LAB HEMETOLOGY METHOD 05/30/2025 5:[address] [facility] Hematocrit 28.6(L) 35.0 - 47.0 % LAB HEMETOLOGY METHOD 05/30/2025 5:[address] [facility] MCV 97.3 79.0 - 98.0 FL LAB HEMETOLOGY METHOD 05/30/2025 5:[address] [facility] MCH 32.3(H) 27.0 - 32.0 pcg LAB HEMETOLOGY METHOD 05/30/2025 5:[address] [facility] MCHC 33.2 32.0 - 37.0 g/dL LAB HEMETOLOGY METHOD 05/30/2025 5:[address] [facility] RDW 13.6 11.0 - 15.0 % LAB HEMETOLOGY METHOD 05/30/2025 5:[address] [facility] Platelets 206 130 - 400 K/mcL LAB HEMETOLOGY METHOD 05/30/2025 5:[address] [facility] MPV 9.7 7.0 - 11.0 FL LAB HEMETOLOGY METHOD [facility] NRBC 0.0 <1.0 % LAB HEMETOLOGY METHOD 05/30/2025 5:[address] [facility] NRBC Absolute 0.00 <0.10 K/mcL LAB HEMETOLOGY METHOD 05/30/2025 5:47 [facility] Neutrophils Relative 78.6 % LAB HEMETOLOGY METHOD 05/30/2025 5:[address] [facility] Lymphocytes Relative 11.6 % LAB HEMETOLOGY METHOD 05/30/2025 5:[address] [facility] Monocytes Relative 7.2 % LAB HEMETOLOGY METHOD 05/30/2025 5:[address] [facility] Eosinophils Relative 1.6 % LAB HEMETOLOGY METHOD 05/30/2025 5:47 [facility] Basophils Relative 0.6 % LAB HEMETOLOGY METHOD 05/30/2025 5:[address] [facility] Immature Granulocytes Relative 0.4 % LAB HEMETOLOGY METHOD 05/30/2025 5:[address] [facility] Neutrophils Absolute 7.73(H) 1.50 - 7.00 K/mcL LAB HEMETOLOGY METHOD 05/30/2025 5:[address] [facility] Lymphocytes Absolute 1.14 1.00 - 5.00 K/mcL LAB HEMETOLOGY METHOD 05/30/2025 5:[address] [facility] Monocytes Absolute 0.71 0.20 - 1.00 K/mcL LAB HEMETOLOGY METHOD 05/30/2025 5:[address] [facility] Eosinophils Absolute 0.16 0.00 - 0.50 K/[facility] LAB HEMETOLOGY METHOD 05/30/2025 5:[address] [facility] Basophils Absolute 0.06 0.00 - 0.20 K/mcL LAB HEMETOLOGY METHOD 05/30/2025 5:[address] [facility] Immature Granulocytes Absolute 0.04(H) 0.00 - 0.03 K/mcL LAB HEMETOLOGY METHOD 05/30/2025 5:[address] [facility] Blood Venous blood specimen / Unknown Venipuncture / Unknown 05/30/2025 5:24 PM EDT 05/30/2025 5:36 PM EDT us Dain Das MD LAB BLOOD ORDERABLES Final Resu lt [facility] [address] [place] [address], * (ABNORMAL) Basic Metabolic Panel (BMP) (05/30/2025 5:24 PM EDT) Sodium 136 133 - 145 mmol/L LAB CHEMISTRY METHOD 05/30/2025 6:[address] [facility] Potassium 3.8 3.5 - 5.5 mmol/L LAB CHEMISTRY METHOD 05/30/2025 6:[address] [facility] Chloride 99 96 - 110 mmol/L LAB CHEMISTRY METHOD 05/30/2025 6:[address] [facility] CO2 27 21 - 32 mmol/L LAB CHEMISTRY METHOD 05/30/2025 6:[address] [facility] Anion Gap 10 3 - 11 LAB CHEMISTRY METHOD 05/30/2025 6:[address] [facility] Glucose 200(H) 70 - 100 mg/dL LAB CHEMISTRY METHOD 05/30/2025 6:[address] [facility] BUN 29(H) 5 - 25 mg/dL LAB CHEMISTRY METHOD 05/30/2025 6:[address] [facility] Creatinine 2.85(H) 0.50 - 1.10 mg/dL LAB CHEMISTRY METHOD 05/30/2025 6:[address] [facility] eGFR 18(L) >=60 mL/min/1. 73m2 LAB CHEMISTRY METHOD 05/30/2025 6:[address] [facility] Comment:Calculation based on the Chronic Kidney Disease Epidemiology Collaboration (CKD-EPI) equation refit without adjustment for race. BUN/Creatinine Ratio 10.2 LAB CHEMISTRY METHOD 05/30/2025 6:[address] [facility] Calcium 8.5 8.5 - 10.5 mg/dL LAB CHEMISTRY METHOD 05/30/2025 6:[address] [facility] Blood Venous blood specimen / Unknown Venipuncture / Unknown 05/30/2025 5:24 PM EDT 05/30/2025 5:36 PM EDT us Dain Das MD LAB BLOOD ORDERABLES Final Resu lt [facility] [address] [place] [address], [place] [phone] * 12-Lead ECG (05/30/2025 4:11 PM EDT) Ventricular Rate ECG 63 BPM GEMUSE Atrial Rate 63 BPM GEMUSE P-R Interval 144 ms GEMUSE QRS Duration 96 ms GEMUSE Q-T Interval 484 ms GEMUSE QTc 495 ms GEMUSE P Wave [place] 18 degrees GEMUSE R [place] -40 degrees GEMUSE T [place] 18 degrees GEMUSE ECG Interpretation Normal sinus rhythm Left axis deviation Abnormal ECG No previous ECGs available Confirmed by ZEUS WELLS ([id number]) on 05/31/2025 5:46:40 PM GEMUSE 05/30/2025 4:11 PM EDT 05/31/2025 5:46 PM EDT us Dain Das MD ECG ORDERABLES Final Result GEMUSE from Last 3 Months Insurance [employer] MEDICARE MEDICAID - [place] Care Teams Driver Utility Worker Relationship Specialty Start Date End Date Alexi Lynne MD [address] [place] [address] [address] [facility] PCP - General Internal Medicine 05/30/25
--- OUTSIDE RECORDS SUMMARY | 2025-08-28 17:52 | XMS_ITS | Encounter Summary ---
Author Organization [facility] Address [address] [place] [address] Phone Care Team Providers Care Anodic Treater Name Role Phone Terry Ochoa MD Primary Care Provider [phone] Encounter Details Date Type Department Care Team (Late st Contact Info) Description 02/05/2021 Documentation Only [facility] [address] [place] [address] Tawny Churchill [place] Social History [...] 204 mg/dL BUN 36 mg/dL eGFR Non-Afr [place] 30 eGFR 35 Sodium 141 mEq/L Potassium 4.5 mEq/L Chloride 111 Carbon Dioxide 18 mmol/L Calcium 8.5 mg/dL Phosphorus, Serum 4.4 mg/dL Albumin (Blood) 2.1 g/dL Creatinine 1.8 mg/dL Anion Gap 12 Blood specimen (specimen) 08/21/2020 Historical Provider LAB BLOOD ORDERABLES Alyssa l Result documented in this encounter Visit Diagnoses Not on filedocumented in this encounter Care Teams Anodic Treater Relationship Specialty Start Date End Date Terry Ochoa MD [address] [place], [place] PCP - General Internal Medicine 07/21/23 documented as of this encounter
--- OUTSIDE RECORDS SUMMARY | 2025-08-28 17:52 | XMS_ITS | Clinical Summary ---
Author Organization [facility] Address [address] [place] [phone] Phone Care Team Providers Care Shallot Cleaner Name Role Phone Alexi Lynne MD Primary Care Provider [phone] Allergies No known active allergies Medications hydrALAZINE [...] PM EDT): During her prolonged stay at [place] she required 2 L of oxygen. At [...] PM EDT): During her prolonged stay at [place] she required 2 L of oxygen. At [...] PM EDT): During her prolonged stay at [place] she required 2 L of oxygen. At [...] PM EDT): During her prolonged stay at [place] she required 2 L of oxygen. At [...] PM EDT): During her prolonged stay at [place] she required 2 L of oxygen. At [...] PM EDT): During her prolonged stay at [place] she required 2 L of oxygen. At [...] PM EDT): During her prolonged stay at [place] she required 2 L of oxygen. At [...] AM EDT): During her prolonged stay at [place] she required 2 L of oxygen. At [...] PM EDT): During her prolonged stay at [place] she required 2 L of oxygen. Since [...] PM EDT): During her prolonged stay at [place] she required 2 L of oxygen. Since [...] AM EDT): During her prolonged stay at [place] she required 2 L of oxygen. Since [...] AM EDT): During her prolonged stay at [place] she required 2 L of oxygen. Since [...] PM EDT): During her prolonged stay at [place] she required 2 L of oxygen. Since [...] PM EDT): During her prolonged stay at [place] she required 2 L of oxygen. Since [...] PM EDT): During her prolonged stay at [place] she has required 2 L of oxygen. [...] during this hospitalization. -- Requested records from [facility] and Dr [place] of [place]; re-requested records on 04/19 Assessment & Plan (04/21/2025 4:16 PM EDT): Apparently was started on a 30-day course of treatment with ciprofloxacin in mid February. No findings to suggest active infection at this time. No antibiotics prescribed during this hospitalization. -- Requested records from [facility] and Dr [place] of [place]; re-requested records on 04/19 Assessment & Plan (04/20/2025 6:23 PM EDT): Apparently was started on a 30-day course of treatment with ciprofloxacin in mid February. No findings to suggest active infection at this time. No antibiotics prescribed during this hospitalization. -- Requested records from [facility] and Dr [place] of [place]; re-requested records on 04/19 Assessment & Plan (04/19/2025 11:51 AM EDT): Apparently was started on a 30-day course of treatment with ciprofloxacin in mid February. No findings to suggest active infection at this time. No antibiotics prescribed during this hospitalization. -- Requested records from [facility] and Dr [place] of [place]; re-requested records on 04/19 Assessment & Plan (04/18/2025 5:59 PM EDT): Apparently was started on a 30-day course of treatment with ciprofloxacin in february. No findings to suggest active infection at this time. No antibiotics prescribed during this hospitalization. -- Requested records from [facility] -- Continue to hold on further antibiotics. Assessment & Plan (04/17/2025 2:27 PM EDT): Apparently was started on a 30-day course of treatment with ciprofloxacin in mid February. No findings to suggest active infection at this time. No antibiotics prescribed during this hospitalization. -- Requested records from [facility] -- Continue to hold on further antibiotics. Assessment & Plan (04/16/2025 8:33 AM EDT): Apparently was started on a 30-day course of treatment with ciprofloxacin in mid February. No findings to suggest active infection at this time. No antibiotics prescribed during this hospitalization. -- Requested records from [facility] -- Continue to hold on further antibiotics. Assessment & Plan (04/15/2025 11:22 AM EDT): Apparently was started on a 30-day course of treatment with ciprofloxacin in mid February. No findings to suggest active infection at this time. No antibiotics prescribed during this hospitalization. -- Requested records from [facility] -- Continue to hold on further antibiotics. Assessment & Plan (04/14/2025 6:39 PM EDT): Apparently was started on a 30-day course of treatment with ciprofloxacin in mid February. No findings to suggest active infection at this time. No antibiotics prescribed during this hospitalization. -- Requested records from [facility] -- Continue to hold on further antibiotics. Assessment & Plan (04/13/2025 4:02 PM EDT): Apparently was started on a 30-day course of treatment with ciprofloxacin in mid February. No findings to suggest active infection at this time. No antibiotics prescribed during this hospitalization. -- Requested records from Dr. Paul Lebron in [place] -- Continue to hold on further antibiotics. Assessment & Plan (04/12/2025 3:56 PM EDT): Apparently was started on a 30-day course of treatment with ciprofloxacin in mid February. No findings to suggest active infection at this time. No antibiotics prescribed during this hospitalization. -- Requested records from Dr. Paul Lebron in [place] -- Continue to hold on further antibiotics. Assessment & Plan (04/11/2025 3:37 PM EDT): Apparently was started on a 30-day course of treatment with ciprofloxacin in mid February. No findings to suggest active infection at this time. No antibiotics prescribed during this hospitalization. -- Requested records from Dr. Paul Lebron in [place] -- Continue to hold on further antibiotics. Assessment & Plan (04/10/2025 4:52 PM EDT): Apparently was started on a 30-day course of treatment with ciprofloxacin in mid February. No findings to suggest active infection at this time. -- Requested records from Dr. Paul Lebron in [place] -- Hold on additional antibiotics for now Assessment & Plan (04/09/2025 1:32 PM EDT): Apparently was started on a 30-day course of treatment with ciprofloxacin in mid February. No findings to suggest active infection at this time. -- Requestin records from Dr. Paul Lebron in [place] -- Hold on additional antibiotics for now Assessment & Plan (04/07/2025 4:33 PM EDT): Apparently was started on a 30-day course of treatment with ciprofloxacin in mid February. No findings to suggest active infection at this time. -- Will try to obtain records from Dr. Paul Lebron in [place] on Wednesday -- Hold on additional antibiotics for now ESRD (end stage renal disease) 04/05/2025 Assessment & Plan (04/27/2025 9:15 AM EDT): - Patient has been cleared at [facility] unit to start Wednesday at 6:30 AM she can be discharged as long as she has transportation available. Details of outpatient certified personal chef requirements being addressed. -For now we will continue with inpatient HD Wednesday regimen. Tolerating dialysis treatment well, potentially will be DC planning for outpt HD at [facility] [place] next Wednesday. - Continue fluid restriction 1.2 L daily max. Fortunately reaching dry weight. - hepatitis B non-reactive. Will aim for repeat vaccination with Heplisav as outpatient - hgb stable - AVG working well Assessment & Plan (04/26/2025 8:12 AM EDT): - Patient has been cleared at [facility] unit to start Wednesday at 6:30 AM she can be discharged as long as she has transportation available. Details of outpatient certified personal chef requirements being addressed. -For now we will continue with inpatient HD Wednesday regimen. Tolerating dialysis treatment well.Next due tomorrow, potentially will be DC planning for outpt HD at [facility] [place] next Wednesday. - Continue fluid restriction 1.2 L daily max. Fortunately reaching dry weight. - hepatitis B non-reactive. Will aim for repeat vaccination with Heplisav as outpatient - hgb stable - AVG working well Assessment & Plan (04/25/2025 9:51 AM EDT): - Patient has been cleared at [facility] unit to start Wednesday at 6:30 [...] - AVG working well -Details of outpatient certified personal chef requirements being addressed. Assessment & Plan (04/24/2025 9:54 AM EDT): - Patient has been cleared at [facility] to start tomorrow at [...] EDT): -Unfortunately despite extensive search locally at [facility] and [facility] no local dialysis center with bariatric bed to accommodate her dialysis. Our team have exhausted all search in the local dialysis centers. Highly suggest to start statewide search and [id number] for other facilities if she needs rehab [...] her dialysis tenure. -If discharged back to [place] outpatient dialysis unit will need transportation. Assessment [...] center across the state. -If discharged to [place] outpatient dialysis unit will need transportation. Assessment [...] for out of area dialysis rehab centers [facility] -Consider PT OT while inpatient assess risk of fall and ability to move to a chair. -Other options check with previous outpatient unit in [place] if still available chair and able to [...] for out of area dialysis rehab centers [facility] -Consider PT OT while inpatient assess risk of fall and ability to move to a chair. -Other options check with previous outpatient unit in [place] if still available chair and able to [...] on dialysis unit placement awaiting clearance through [facility] or [facility] but she has been declined by both so far due to concerns about her ability to transfer and sit in dialysis. There are no beds available throughout the area for dialysis clinics. -Our team continues to search for local unit, I would kindly ask case management to start looking for out of area dialysis rehab centers [facility] -Consider PT OT while inpatient assess risk [...] potassium binding resin. - Will inquire with [facility] hopefully able to be discharged to [...] access hemodialysis. She had been discharged from [facility] her dialysis center was in [place] but she lives in [place] and she did not have transportation. She was volume overloaded on presentation, requiring HD. Nephrology was consulted. Patient is requiring a bariatric BED for hemodialysis. 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 Patient has a bariatric dialysis bed at [place] dialysis unit. Patient remained in hospital for dialysis on 04/25. - ethylbenzene cracking supervisor unavailable until Friday 04/27, will remain here [...] access hemodialysis. She had been discharged from [facility] her dialysis center was in [place] but she lives in [place] and she did not have transportation. She was volume overloaded on presentation, requiring HD. Nephrology was consulted. Patient is requiring a bariatric BED for hemodialysis. 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 Patient has a bariatric dialysis bed at [place] dialysis unit. Patient remained in hospital for dialysis on 04/25. - ethylbenzene cracking supervisor unavailable until Friday 04/27, will remain here [...] from SNF her dialysis center was in [place] but she lives in [place] and she did not have transportation. She [...] 04/19. Attempts were made for dialysis in [place] however patient was declined on 04/22 Last HD was 04/23 with removal of 5 L. Stable hemodynamically. Spoke with Dr. Esteban and patient has a bariatric dialysis bed and [place] [facility]. Initial plans were for discharge today with outpatient dialysis on 04/25 however dialysis time was at 6:30 in the morning and patient did not have [employer] coverage to be discharged home tonight. Patient remained in hospital for dialysis on 04/25. - Goal is for discharge home on 04/25 once ethylbenzene cracking supervisor can be established to be in the [...] access hemodialysis. She had been discharged from [facility] her dialysis center was in [place] but she lives in [place] and she did not have transportation. She [...] 04/19. Attempts were made for dialysis in [place] however patient was declined on 04/22 04/23 Status post HD today with removal of 5 L. Stable hemodynamically. -discussed with patient in multidisciplinary rounds. Alterations Manager Dr. Esteban has secured a bariatric chair for patient in [place]. - Anticipate chair will be ready in 24 to 48 hours. -Continue torsemide - HD Wednesday. - Continue 1 L fluid restriction Assessment & Plan (04/22/2025 4:03 PM EDT): Patient history of end-stage renal disease on dialysis Wednesday and Wednesday presented for fluid overload due to inability to access hemodialysis. She had been discharged from [facility] her dialysis center was in [place] but she lives in [place] and she did not have transportation. She [...] no bariatric HD chair available. Declined by [facility]. -Continue torsemide - HD Wednesday. - Continue 1 L fluid restriction -Case management/social work and warehouse production worker continue to search for bariatric chair for outpatient dialysis. Assessment & Plan (04/21/2025 4:16 PM EDT): Patient history of end-stage renal disease on dialysis Wednesday and Wednesday presented for fluid overload due to inability to access hemodialysis. She had been discharged from [facility] her dialysis center was in [place] but she lives in [place] and she did not have transportation. She [...] no bariatric HD chair available. Declined by [facility]. -Continue torsemide - HD Wednesday. - Continue 1 L fluid restriction -Case management/social work and warehouse production worker continue to search for bariatric chair for outpatient dialysis. Assessment & Plan (04/20/2025 6:23 PM EDT): Patient history of end-stage renal disease on dialysis Wednesday and Wednesday presented for fluid overload due to inability to access hemodialysis. She had been discharged from [facility] her dialysis center was in [place] but she lives in [place] and she did not have transportation. She [...] access hemodialysis. She had been discharged from [facility] her dialysis center was in [place] but she lives in [place] and she did not have transportation. She [...] the ED. She had been discharged from [facility] her dialysis center was in [place] but she lives in [place] and she did not have transportation. Patient [...] the ED. She had been discharged from [facility] her dialysis center was in [place] but she lives in [place] and she did not have transportation. Patient [...] the ED. She had been discharged from [facility] her dialysis center was in [place] but she lives in [place] and she did not have transportation. Patient [...] the ED. She had been discharged from [facility] her dialysis center was in [place] but she lives in [place] and she did not have transportation. Patient [...] the ED. She had been discharged from [facility] her dialysis center was in [place] but she lives in [place] and she did not have transportation. Patient [...] the ED. She had been discharged from [facility] her dialysis center was in [place] but she lives in [place] and she did not have transportation. -Received [...] from SNF her dialysis center was in [place] but she lives in [place] and she did not have transportation. -Received [...] the ED. She had been discharged from [facility] her dialysis center was in [place] but she lives in [place] and she did not have transportation. --Spoke [...] the ED. She had been discharged from [facility] her dialysis center was in [place] but she lives in [place] and she did not have transportation. --Spoke [...] the ED. She had been discharged from [facility] her dialysis center was in [place] but she lives in [place] and she did not have transportation. --Spoke [...] the ED. She had been discharged from [facility] her dialysis center was in [place] but she lives in [place] and she did not have transportation Case [...] ED. Evidently when she was discharged from [facility] her dialysis center was in [place] but she lives in [place] and she did not have transportation Case [...] 04/06 Evidently when she was discharged from [facility] her dialysis center was in [place] but she lives in [place] and she did not have transportation Nephrology [...] and a low-dose insulin sliding scale with [id number] testing. - Obtain hemoglobin A1c in the [...] Patient states that since her admission to [facility] over the last 10 months she has [...] Patient states that since her admission to [facility] over the last 10 months she has [...] Patient states that since her admission to [facility] over the last 10 months she has [...] obtain records from Dr. Paul Lebron in [place]. Assessment & Plan (04/09/2025 1:32 PM EDT): Patient states history of recurrent UTI currently on ciprofloxacin for 30 days. Patient asymptomatic. No concerns for infection presently - At presentation ciprofloxacin held because of risk versus benefit concerns agree that there may be greater risk than benefit of continuing ciprofloxacin at this point --Will try to obtain records from Dr. Paul Lebron in [place] on Wednesday Assessment & Plan (04/08/2025 3:43 [...] obtain records from Dr. Paul Lebron in [place] on Wednesday Assessment & Plan (04/07/2025 2:46 [...] 9:15 AM EDT Emergency [facility] [address] [place] [address] Gumaro Hernandez, Satya Hernandez MD Discharge Disposition: [...] clinician's provided indication for this examination in [facility]: Dyspnea (Shortness of Breath) COMPARISON: XR CHEST PORTABLE FINDINGS: Devices/Tubes/Lines: None. Lungs: No focal consolidation or pulmonary edema. Pleura: No pleural effusion or pneumothorax. Heart/Mediastinum: Stable cardiac silhouette enlargement. Bones/Soft Tissues: Degenerative changes of the shoulders and spine. No acute osseous abnormality. Procedure Note Krystal Encinas MD, PhD - 06/06/2025 XR CHEST PORTABLE Referring clinician's provided indication for this examination in [facility]:Dyspnea (Shortness of Breath) COMPARISON: XR CHEST [...] (hepatic panel) (06/05/2025 10:30 PM EDT) Pathologist [facility] ALKALINE PHOSPHATASE 125(H) 39 - 117 U/L [facility] TOTAL BILIRUBIN 0.4 0.0 - 1.2 mg/dL [facility] DIRECT BILIRUBIN 0.2 0.0 - 0.2 mg/dL [facility] Bilirubin (Indirect) 0.2 0 - 1.5 mg/dL [facility] AST 14 0 - 37 U/L [facility] ALT 10 0 - 40 U/L [facility] TOTAL PROTEIN 6.4(L) 6.5 - 8.0 g/dL [facility] ALBUMIN 3.6(L) 3.9 - 4.8 g/dL [facility] GLOBULIN 2.8 1 - 4.8 g/dL [facility] A/G Ratio 1.29 1.00 - 4.80 RATIO [facility] Blood 06/05/2025 10:3 0 PM EDT 06/05/2025 10:35 PM EDT us Gumaro Hernandez DO LAB BLOOD BKR ORDERABLES Alyssa medina Result [facility] [address] [place] [address] * (ABNORMAL) CBC and differential (06/05/2025 10:30 PM EDT) [facility] WBC 9.35 4.00 - 11.00 K/uL [facility] RBC 2.64(L) 4.00 - 5.20 M/uL [facility] HGB 8.6(L) 12.0 - 16.0 g/dL [facility] HCT 25.9(L) 36.0 - 46.0 % [facility] PLT 190 150 - 450 K/uL [facility] MCV 98.1 80.0 - 100.0 fL [facility] MCH 32.6(H) 27.0 - 31.0 pg [facility] MCHC 33.2 32.0 - 36.0 g/dL [facility] RDW 13.2 11.5 - 14.5 % [facility] MPV 9.8 8.4 - 12.0 fL [facility] NRBC 0.00 0.00 /100 WBCs [facility] ABSOLUTE NRBC 0.00 0.00 K/uL [facility] DIFF METHOD Auto [facility] NEUTS 72.8 48.0 - 76.0 % [facility] LYMPHS 14.8(L) 18.0 - 41.0 % [facility] MONOS 8.7 4.0 - 11.0 % [facility] EOS 2.7 0.0 - 5.0 % [facility] BASOS 0.6 0.0 - 1.5 % [facility] Granulocytes, immature (%) 0.4 0.0 - 0.9 % [facility] ABSOLUTE NEUTS 6.81 1.92 - 7.60 K/uL [facility] ABSOLUTE LYMPHS 1.38 0.72 - 4.10 K/uL [facility] ABSOLUTE MONOS 0.81 0.16 - 1.10 K/uL [facility] ABSOLUTE EOS 0.25 0.00 - 0.50 K/uL [facility] ABSOLUTE BASOS 0.06 0.00 - 0.15 K/uL [facility] Granulocytes, immature 0.04 0.00 - 0.09 K/uL [facility] Blood 06/05/2025 10:3 0 PM EDT 06/05/2025 10:35 PM EDT us Gumaro Hernandez DO LAB BLOOD BKR ORDERABLES Alyssa l Result [address] [address] * (ABNORMAL) Basic metabolic panel (06/05/2025 10:30 PM EDT) SODIUM 135 133 - 146 mmol/L [facility] CHLORIDE 96 96 - 108 mmol/L [facility] POTASSIUM 4.0 3.3 - 5.1 mmol/L [facility] CO2 26 21 - 35 mmol/L [facility] BUN 42(H) 6 - 19 mg/dL [facility] CREATININE 3.30(H) 0.5 - 1.5 mg/dL [facility] GLUCOSE 321(H) 70 - 99 mg/dL [facility] CALCIUM 8.1(L) 8.4 - 10.3 mg/dL [facility] EGFR 15(L) >59 mL/min/1.7 3m2 [facility] Comment:Estimated glomerular filtration rate calculated using the CKD-EPI refit equation. ANION GAP 17 10 - 20 mmol/L [facility] Blood 06/05/2025 10:3 0 PM EDT 06/05/2025 10:35 PM EDT us Gumaro G Hernandez DO LAB BLOOD BKR ORDERABLES Alyssa l Result [address] [address] * ECG 12-LEAD (06/05/2025 10:03 PM EDT) Ventricular Rate EKG/MIN 67 BPM [facility] Atrial Rate 67 BPM [facility] VT Interval 144 ms [facility] QRS Duration 96 ms [facility] QT Interval 466 ms [facility] QTC Interval 492 ms [facility] R Wave [place] -40 degrees [facility] T Wave [place] 50 degrees [facility] 06/05/2025 10:0 3 PM [...] HBV SURFACE ANTIGEN NON-REACTI VE NON-REACTI VE [facility] Blood 04/24/2025 11:0 0 AM EDT 04/25/2025 8:15 AM EDT us Chemo Esteban MD LAB BLOOD BKR ORDERABLES Final R esult [address] [address] * (ABNORMAL) Hemoglobin A1c (04/06/2025 6:33 AM EDT) HEMOGLOBIN A1C 7.0(H) 4.3 - 5.8 % [facility] Blood 04/06/2025 6:33 AM EDT 04/06/2025 6:37 AM EDT us Joseph Green MD LAB BLOOD BKR ORDERABLES Final Result Performing Organization Address City/[facility]/ZIP Co de Phone Number [address] [address] from Last 3 Months or Most Recently Relevant to Health Maintenance [place] [address] [address] [place] [address] [place] [id number] MEDICARE PART A & B MEDICARE REPLACEMENT [facility] & [place] [place] [address] MEDICARE REPLACEMENT [facility] MEDICARE PART A & B [facility] MEDICARE REPLACEMENT [facility] MEDICARE PART A & B [facility] MEDICARE REPLACEMENT [place] MEDICARE PART A & B MEDICARE REPLACEMENT [place] MEDICARE PART A & B Advance Directives For more information, please contact: [phone] (9AM - 5PM [facility], Wednesday-Wednesday) Documents on File Type Date Recorded Patient Content Development Specialist Expl anation Healthcare Proxy 05/02/2025 2:05 PM Healthcare Proxy 04/18/2025 9:29 AM health care proxy * Full Code (Latest Code Status on File) Date Activated Date Inactivated Comments 04/05/2025 8:51 PM Question Answer Comments Code Status Confirmed With: Patient Code Status Communicated To: Inpatient Attending Care Teams Shallot Cleaner Relationship Specialty Start Date End Date Alexi Lynne MD [address] [place] [address] [place] [address] PCP - General Internal Medicine 04/05/25 Additional Source Comments The information contained in this document represents components of the legal health record. It is not the complete legal health record.[facility]
--- NOTE | 2025-08-28 18:12 | PM.IMHP ---
History of Present Illness Date of Service: 08/28/25 Chief Complaint: Shortness of breath 65-year-old female with past medical history of CHF, anemia, chronic hypoxia on 2 L, hypertension hyperlipidemia, panniculitis, ESRD TTHSA. She stated that she has missed dialysis since august 11. She stated that she usually will come to [facility] or [facility] because she doesnt like the chairs at [facility]. She feel short of breath and all likely because of missed dialysis. She has a history of panniculus but today doesnt seem to be infected. Sodium was noted to be 130, potassium 5.6 for which he received Lokelma. Creatinine 6.07. Plan will be to admit patient for dialysis treatment. Review of Systems Review of Systems: Denies any recent fever chills or decrease in appetite respiratory See HPI cardiovascular Denied chest pain gastrointestinal denies any dysphagia abdominal pain nausea vomiting or diarrhea, chronic pain genitourinary denies any dysuria frequency or hematuria musculoskeletal denies any joint pain or swelling neuropsych denies any weakness or seizures all other systems reviewed are negative [facility] Medical History HTN (hypertension) HLD (hyperlipidemia) Frequent UTI Anemia Acute on chronic diastolic (congestive) heart failure Type 2 diabetes mellitus with obesity Clostridium difficile diarrhea Morbid obesity Detrusor dysfunction Bladder outlet obstruction Esophagitis CKD (chronic kidney disease) stage 4, GFR 15-29 ml/min Hypothyroidism IBS (irritable bowel syndrome) Family History Father Diabetes Mother Diabetes Hypertension Breast cancer Family/Other Breast cancer Uterine cancer Surgical History History of tubal ligation Social History Household Members: None Housing: Apartment Do you presently have visiting nurse or other home services: Yes Alcohol intake: never Comment: bedbound at baseline Patient Tobacco Use Status: Former Tobacco user e-Cigarette/Vaping Use: Never Used Second Hand Smoke Exposure: No Advance Directives: Yes Advance Directives on File: Yes Advance Directives Date on File: 03/18/23 service: No Current occupational status: disabled Cognitive needs: No Hearing needs: No Vision needs: Yes Meds Allergies Allergy/AdvReac Type Severity Reaction Status Date / Time metformin (METFORMIN) Allergy Severe HIVES Verified 08/28/25 13:54 heparin Allergy Intermediate Itching Verified 08/28/25 13:54 canagliflozin (From Invokana) Allergy Hives Verified 08/28/25 13:54 Active Medications: Current Medications Acetaminophen (Acetaminophen 325 Mg Tablet) 650 mg PO Q6H PRN PRN Reason: Pain, Mild 1-3,fever,headache Calcium Carbonate (Calcium Carbonate 750 Mg Tab.Chew) 750 mg PO Q4H PRN PRN Reason: Heartburn Heparin Sodium (Porcine) (Heparin Sodium,Porcine 5,000 Unit/Ml Vial) 5,000 unit SUBCUT Q12H [facility] Magnesium Hydroxide (Milk Of Magnesia 30 Ml Oral.Susp) 30 ml PO DAILY PRN PRN Reason: Constipation Melatonin (Melatonin 3 Mg Tablet) 6 mg PO BEDTIME PRN PRN Reason: Insomnia Ondansetron HCl (Ondansetron Hcl 4 Mg/2 Ml Vial) 4 mg IVPUSH Q8H PRN PRN Reason: Nausea and Vomiting Sodium Chloride (0.9 % Sodium Chloride Flush 3 Ml Syringe) 3 ml IVFLUSH QSHIFT [facility] Home Medications ?Medication ?Instructions ?Recorded ?Confirmed ?Last Taken ?Type insulin lispro 100 unit/mL See Protocol subcut TIDAC 07/09/25 07/30/25 07/08/25 History subcutaneous solution (Humalog U-100 Insulin) pantoprazole 20 mg tablet,delayed 20 mg PO DAILY@0630 07/09/25 07/30/25 07/09/25 History release triamcinolone acetonide 0.1 % 1 appl topical TID PRN Diabetic 07/09/25 07/30/25 Unknown History topical ointment Psoriasis albuterol 90 mcg-budesonide 80 2 inh inhalation Q4H PRN Shortness 07/30/25 07/30/25 Unknown History mcg/actuation HFA aerosol inhaler Of Breath/WHEEZE (Airsupra) bisacodyl 10 mg rectal suppository 10 mg MS DAILY PRN Constipation 07/30/25 07/30/25 Unknown History polyethylene glycol 3350 17 17 g PO DAILY 07/30/25 07/30/25 Unknown History gram/dose oral powder (Miralax) sodium phosphates 19 gram-7 118 ml MS DAILY PRN Constipation 07/30/25 07/30/25 Unknown History gram/118 mL enema (Fleet Enema) hydromorphone 2 mg tablet 2 mg PO MOWEFR PRN prior to 08/28/25 08/28/25 Unknown History (Dilaudid) dialysis sennosides 8.6 mg tablet (senna) 17.2 mg PO BEDTIME 08/28/25 08/28/25 Unknown History sevelamer carbonate 800 mg tablet 800 mg PO TIDWM 08/28/25 08/28/25 Unknown History torsemide 100 mg tablet 100 mg PO MOWEFR PRN dialysis 08/28/25 08/28/25 Unknown History Physical Exam Vital Signs and Narrative: Vital Signs: Last Vital Signs Temp 97.7 F 08/28/25 15:21 Pulse 63 08/28/25 15:21 Resp 16 08/28/25 15:21 BP 103/63 08/28/25 15:21 Pulse Ox 100 08/28/25 15:21 O2 Del Method Room Air 08/28/25 15:21 Oxygen Flow Rate 2 08/28/25 13:51 BMI result Body Mass Index 74.8 Appearing in no acute distress head is normocephalic atraumatic eyes pupils are PERRLA sclera is anicteric mouth throat mucous membranes are intact and moist neck is supple no lymphadenopathy, no JVD noted lung sounds are clear to auscultation heart regular rate rhythm, clear S1, S2 positive bowel sounds, abdomen is soft, nontender neuro patient is alert x3, no focal deficits panniculus sore chronic Results Labs 08/28/25 14:48 08/28/25 14:48 Labs: Laboratory Results - last 24 hr 08/28/25 14:48 MCV 91.4 MCH 30.5 MCHC 33.3 RDW 14.6 Plt Count 168 MPV 10.7 Immature Gran % (Auto) 0.4 Neut % (Auto) 75.8 H Lymph % (Auto) 10.5 L [place] % (Auto) 8.9 Eos % (Auto) 4.0 Baso % (Auto) 0.4 Lymph # (Auto) 0.8 L [place] # (Auto) 0.7 Eos # (Auto) 0.3 Baso # (Auto) 0.0 Abs Immat Gran (auto) 0.03 Absolute Neuts (auto) 6.1 Absolute Nucleated RBC 0.000 Nucleated RBC % (auto) 0.0 Anion Gap 19 Estim Creat Clear Calc 13.7 Estimated GFR 7 Random Glucose 207 H Calcium 8.1 L Total Bilirubin 0.4 AST 18 ALT 12 Alkaline Phosphatase 153 H Total Protein 7.1 Albumin 3.8 Imaging Radiologist's Impressions: Impressions Chest X-Ray 08/28/25 15:25 IMPRESSION: No acute cardiopulmonary abnormality. Electronically signed by: Jason Palmer MD 08/28/2025 03:34 PM [facility] Assessment and Plan (1) HTN (hypertension): Qualifiers: Hypertension type: primary hypertension Qualified Code(s): I10 - Essential (primary) hypertension Status: Acute Plan 65 year old women admitted after missed dialysis and shortness of breath. ESRD on dialysis missed dialysis since 08/[address] Ash, consulted RTANE Fluid overload likely from missed dialysis Hypernatremia likely from fluid overload from missed dialysis follow BMP Hyperkalemia Lokelma in the ED follow BMP Chronic panniculus sore not infected appearing DM2 with hyperglycemia Sliding scale, ADA diet lantus HTN continue home medications Neuropathic pain gabapentin VTE ppx: SCDs boots, intolerant of heparin code status: full Quality Stroke Does the patient have a stroke diagnosis?: No VTE Prior VTE?: No VTE Risk Level:: Medical - moderate - high VTE Device Contraindication: Treatment Not Indicated VTE Drug Contraindication: N/A - Med Ordered
--- NOTE | 2025-08-28 18:26 | HO.NURTONUR ---
Patient coming from home requesting dialysis (no dialysis since 08/11) and panniculus irritation. Admitted with hyperkalemia, volume overload, noncompliance with dialysis, and skin ulceration. Potassium 5.6 - Lokelma given. 20G IV R AC. Patient has not gotten out of bed - per previous visit notes patient utilizes bedpan and Purewick.
--- NOTE | 2025-08-28 18:33 | PHA.MEDREC ---
Addendum entered by Salome Huerta 08/29/25 14:15: Spoke with [facility] and they confirmed the pt is taking Torsemide 100mg tabs once on Sundays. Original Note: Pharmacy Consult ? Medication Reconciliation Pharmacy has completed the medication reconciliation.
--- NOTE | 2025-08-28 19:19 | PC.NURSE ---
this RN assumed care of this pt @1900, pt noted to be sitting upright in hospital stretcher, respirations, even and unlabored, pt noted to be tearful due to being uncomfortable, pt reapportioned in bed, call light provided for safety
[2025-08-28 20:35] VITALS: BMI 72.6
[2025-08-28 20:44] VITALS: BP 161/75; PULSE 61; RESP 18; TEMP 36.4; O2SAT 92
[2025-08-28 20:44] LABS: Glucose, Whole Blood 232 mg/dL (60-115)
[2025-08-28] MEDS: 0.9 % Sodium Chloride Flush 3 ML SYRINGE IVFLUSH (23:41)
[2025-08-29 03:30] VITALS: BP 132/61; PULSE 62; RESP 18; TEMP 36.1; O2SAT 99
--- NOTE | 2025-08-29 05:55 | PC.NURSE ---
0555- patient transported via bed with oxygen in place up to dialysis treatment.
[2025-08-29 07:08] LABS: Hematocrit 24.3 % (37.0-47.0); Hemoglobin 7.9 g/dl (12.0-16.0); Mean Corpuscular HGB Conc 32.5 g/dl (31.0-35.0); Mean Corpuscular Hemoglobin 30.0 pg (27.0-33.0); Mean Corpuscular Volume 92.4 fL (80.0-98.0); NRBC Abs Auto 0.000 X10*3/uL (0.0-0.012); NRBC Pct Auto 0.0 /100WBC (0.0-0.2); Platelet Count 158 X10*3/uL (160-400); Red Blood Count 2.63 X10*6/uL (4.20-5.50); White Blood Count 7.4 X10*3/uL (4.8-10.8)
[2025-08-29 07:35] LABS: Magnesium 1.8 mg/dL (1.6-2.6)
[2025-08-29 07:38] LABS: Alanine Aminotransferase 13 U/L (0-31); Albumin Level 3.6 g/dL (3.5-5.0); Alkaline Phosphatase 142 U/L (39-117); Anion Gap 23 (12-20); Aspartate Amino Transferase 20 U/L (5-31); Calcium 7.8 mg/dL (8.4-10.2); Carbon Dioxide 17 mmol/L (22-29); Chloride 96 mmol/L (96-108); Creatinine Clr Calc Pharmacy 13.3; Estimated Glomerular Filt Rate 7; Potassium 5.5 mmol/L (3.3-5.1); Sodium 130 mmol/L (135-145); Total Protein 6.8 g/dL (6.5-8.0)
[2025-08-29 07:46] LABS: Blood Urea Nitrogen 159 mg/dL (9-16)
--- NOTE | 2025-08-29 10:57 | MHC.CM.PN ---
IMM DELIVERED PT IS A PT AT [facility] ON A BEDHOLD. PT ATTENDS HD AT [facility]. + HCP ON FILE. DP: PT WILL RETURN TO [facility] VIA BLS AT 2 PM VIA [facility]. RN/PROVIDER AWARE. CENTER UPDATED.
[2025-08-29 11:14] LABS: Glucose, Whole Blood 187 mg/dL (60-115)
--- NOTE | 2025-08-29 12:26 | P.DS_ITS ---
DS: Providers Provider Date of admission: 08/28/25 17:22 Date of discharge: 08/29/25 Primary care physician: Unknown Physician Consults: 08/28/25 17:25 Consult to Nephrology Routine Consulting Provider: [facility] Reason for consultation: esrd on dialysis DS: Diagnosis Discharge Diagnosis (1) HTN (hypertension): Status: Acute (2) Morbid obesity: Status: Acute (3) ESRD (end stage renal disease): Status: Acute (4) Dialysis patient: Status: Acute (5) Acute uremia: Status: Acute DS: Summary Hospital Course Hospital Course: Admission note HPI 65-year-old female with past medical history of CHF, anemia, chronic hypoxia on 2 L, hypertension hyperlipidemia, panniculitis, ESRD TTHSA. She stated that she has missed dialysis since august 11. She stated that she usually will come to [facility] or [facility] because she doesnt like the chairs at [facility]. She feel short of breath and all likely because of missed dialysis. She has a history of panniculus but today doesnt seem to be infected. Sodium was noted to be 130, potassium 5.6 for which he received Lokelma. Creatinine 6.07. Plan will be to admit patient for dialysis treatment. Hospital course The patient was admitted, evaluated by nephrology team [id number] and had dialysis session with good tolerance. Discussed with dr Ash who recommended discharging her back to the facility and to follow with her scheduled Dialysis as outpatient TTS. Discharge plan Continue home medications Continue dialysis as scheduled Follow with nephrology team as outpatient The patient had quicker than expected improvement and will not need 2nd night of hospital stay. Time Attestation Discharge Coordination Time (in mins): 43 Quality: Safe Use of Opioids Does Pt have an Active Cancer Diagnosis on the Problem List?: No Quality: Stroke Does the patient have a stroke diagnosis?: No Physical Exam Exam: Exam: Constitutional : interactive, not in distress Cardiovascular : no JVP, no lower extremity edema Respiratory : bilateral chest movement, not in resp distress Gastrointestinal: soft, lax, Non tender Skin : Warm, Dry Neurological : Alert & oriented , No focal deficit Vital Signs: Vital Signs: Last Vital Signs Temp 97.0 F 08/29/25 03:30 Pulse 62 08/29/25 03:30 Resp 18 08/29/25 03:30 BP 132/61 08/29/25 03:30 Pulse Ox 99 12/31/25 03:30 O2 Del Method Room Air 08/29/25 03:30 O2 Flow Rate 2 08/28/25 20:44 Oxygen Flow Rate 2 08/28/25 13:51 BMI result Body Mass Index 72.6 DS: Data Data Completed and Pending Completed studies during hospitalization [Text1]: Procedures Excision of Duodenum, Via Natural or Artificial Opening Endoscopic, Diagnostic (07/31/20) Excision of Stomach, Pylorus, Via Natural or Artificial Opening Endoscopic, Diagnostic (07/31/20) Performance of Urinary Filtration, Intermittent, Less than 6 Hours Per Day (07/30/25) Labs on day of discharge: Laboratory Results - last 24 hr 08/28/25 08/28/25 08/29/25 14:48 20:36 06:46 WBC 8.0 7.4 RBC 2.79 L 2.63 L Hgb 8.5 L 7.9 L Hct 25.5 L 24.3 L MCV 91.4 92.4 MCH 30.5 30.0 MCHC 33.3 32.5 RDW 14.6 14.7 Plt Count 168 158 L MPV 10.7 11.6 Immature Gran % (Auto) 0.4 Neut % (Auto) 75.8 H Lymph % (Auto) 10.5 L [place] % (Auto) 8.9 Eos % (Auto) 4.0 Baso % (Auto) 0.4 Lymph # (Auto) 0.8 L [place] # (Auto) 0.7 Eos # (Auto) 0.3 Baso # (Auto) 0.0 Abs Immat Gran (auto) 0.03 Absolute Neuts (auto) 6.1 Absolute Nucleated RBC 0.000 0.000 Nucleated RBC % (auto) 0.0 0.0 Sodium 130 L 130 L Potassium 5.6 H 5.5 H Chloride 97 96 Carbon Dioxide 20 L 17 L Anion Gap 19 23 H BUN 162 H 159 H Creatinine 6.07 H* 6.15 H* Estim Creat Clear Calc 13.7 13.3 Estimated GFR 7 7 POC Glucose 232 H Random Glucose 207 H 254 H Calcium 8.1 L 7.8 L Magnesium 1.8 Total Bilirubin 0.4 0.4 AST 18 20 ALT 12 13 Alkaline Phosphatase 153 H 142 H Total Protein 7.1 6.8 Albumin 3.8 3.6 08/29/25 11:10 WBC RBC Hgb Hct MCV MCH MCHC RDW Plt Count MPV Immature Gran % (Auto) Neut % (Auto) Lymph % (Auto) [place] % (Auto) Eos % (Auto) Baso % (Auto) Lymph # (Auto) [place] # (Auto) Eos # (Auto) Baso # (Auto) Abs Immat Gran (auto) Absolute Neuts (auto) Absolute Nucleated RBC Nucleated RBC % (auto) Sodium Potassium Chloride Carbon Dioxide Anion Gap BUN Creatinine Estim Creat Clear Calc Estimated GFR POC Glucose 187 H Random Glucose Calcium Magnesium Total Bilirubin AST ALT Alkaline Phosphatase Total Protein Albumin Discharge Plan Discharge Anticipated Discharge Date/Time: 08/29/25 12:23 Patient Disposition: Xfer [facility] Discharge Diagnosis: Missed dialysis ; Fluid overload, Uremia Referrals: Physician,Unknown J [Primary Care Provider, Medical] - 1 Week Discharge Medications: Continued (DME) Accu-Chek Berna Plus test strp Strip See Rx Instructions .Route Qty: 300 8RF Rx Instructions: to check blood sugars five times a day (DME) blood sugar diagnostic Strip See Rx Instructions .ROUTE .MEDSUPPLY Qty: 200 8RF Rx Instructions: FREESTYLE TEST STRIPS (DME) hospital bed Kit See Rx Instructions .Route Qty: 1 0RF Rx Instructions: As directed (DME) pen needle, diabetic 32 gauge x 5/32 needle See Rx Instructions .Route Qty: 100 0RF Rx Instructions: use TID (DME) insulin syringe-needle U-100 [BD Insulin Syringe Ultra-Fine] 1 mL 30 gauge x 1/2 syringe See Rx Instructions .ROUTE .MEDSUPPLY Qty: 100 3RF Rx Instructions: TID pantoprazole 20 mg tablet,delayed release (DR/EC) 20 mg PO DAILY@0630 triamcinolone acetonide 0.1 % ointment 1 appl topical TID PRN (Reason: Diabetic Psoriasis ) insulin lispro [Humalog U-100 Insulin] 100 unit/mL solution See Protocol subcut TIDA Protocol: Insulin Correction Scale Less than or equal to 110 ---- Give (units): 0 111 to 150 Give (units): 0 151 to 200 Give (units): 2 201 to 250 Give (units): 4 251 to 300 Give (units): 6 301 to 350 Give (units): 8 Greater than 350 Give (units): 10 Call MD if Blood Glucose > : 350 Rx Instructions: Patient uses a sliding scale ropinirole 0.25 mg tablet 0.25 mg PO BEDTIME 30 Days Qty: 30 2RF amlodipine 10 mg tablet 10 mg PO DAILY 30 Days Qty: 30 3RF docusate sodium 100 mg Capsule 100 mg PO DAILY 30 Days Qty: 30 3RF ondansetron 4 mg tablet,disintegrating 4 mg translingual TIDAC PRN (Reason: nausea) 30 Days Qty: 12 3RF insulin glargine [Lantus Solostar U-100 Insulin] 100 unit/mL (3 mL) insulin pen 20 unit subcut BEDTIME 30 Days Qty: 3 3RF oxybutynin chloride 15 mg tablet extended release 24hr 15 mg PO DAILY 30 Days Qty: 30 3RF hydralazine 25 mg Tablet 25 mg PO TID 30 Days Qty: 30 3RF gabapentin 100 mg capsule 100 mg PO BID 30 Days Qty: 60 0RF polyethylene glycol 3350 [Miralax] 17 gram/dose Powder 17 g PO DAILY Airsupra 90-80 mcg/actuation HFA aerosol inhaler 2 inh inhalation Q4H PRN (Reason: Shortness Of Breath/WHEEZE) bisacodyl 10 mg Suppository 10 mg HI DAILY PRN (Reason: Constipation) Fleet Enema 19-7 gram/118 mL Enema 118 ml HI DAILY PRN (Reason: Constipation) torsemide 100 mg tablet 100 mg PO MOWEFR PRN (Reason: dialysis) hydromorphone [Dilaudid] 2 mg tablet 2 mg PO MOWEFR PRN (Reason: prior to dialysis) sevelamer carbonate 800 mg tablet 800 mg PO TIDWM sennosides [senna] 8.6 mg Tablet 17.2 mg PO BEDTIME metoprolol tartrate 25 mg tablet 12.5 mg PO BID Qty: 60 3RF Discharge Orders: Discharge Order (Routine); Ordered 08/29/25 Ordered By: Oumou Blackwell Diet: Diabetic diet Activity on Discharge: As tolerated Stand Alone Forms: Patient Portal Discharge page Print Language: Danish Care Plan Goals: Continue dialysis Health Concerns: Missed dialysis; Fluid overload: Uremia Plan of Treatment: Continue home medications Continue dialysis as scheduled Follow with nephrology team as outpatient Assessment: as above
[2025-08-29 15:35] VITALS: BP 157/68; PULSE 68; RESP 18; TEMP 36.6; O2SAT 100
== END 2025-08-29 16:46 | disposition skilled nursing facility (03) | DRG 640 ==
LOC: HO.ED 16:03 → HO.EDOVER 17:28 → HO.S3 19:23
PROVIDERS: Admitting Provider Nurse Practitioner Acute Care; Emergency Provider Emergency Medicine; PCP Internal Medicine; Visit Provider Student in an Organized Health Care Education/Training Program
DX: E87.70 Fluid overload, unspecified (principal); N18.6 End stage renal disease; I12.0 Hypertensive chronic kidney disease with stage 5 chronic kidney disease or end stage renal disease; E87.0 Hyperosmolality and hypernatremia; E87.5 Hyperkalemia; E11.22 Type 2 diabetes mellitus with diabetic chronic kidney disease; L98.439 Non-pressure chronic ulcer of abdomen with unspecified severity; E11.65 Type 2 diabetes mellitus with hyperglycemia; E11.40 Type 2 diabetes mellitus with diabetic neuropathy, unspecified; Z99.2 Dependence on renal dialysis; Z91.158 Patient's noncompliance with renal dialysis for other reason; Z87.891 Personal history of nicotine dependence; Z79.4 Long term (current) use of insulin; Z79.899 Other long term (current) drug therapy
CPT/HCPCS: 36415; 71045; 80053; 82947; 83735; 85025; 85027; 90999; 93005; 99285

== ENCOUNTER → 2025-08-28 14:02 | Outpatient (BNV) | payer MEDICARE, MEDICAID, SELFPAY | PROVIDERS: Emergency Provider Emergency Medicine; Visit Provider Radiology Diagnostic Radiology | DX: J81.1 Chronic pulmonary edema (principal) | CPT/HCPCS: 71045 ==

== ENCOUNTER → 2025-08-28 14:02 | Outpatient (BNV) | payer MEDICARE, MEDICAID, SELFPAY | PROVIDERS: Admitting Provider Nurse Practitioner Acute Care; Emergency Provider Emergency Medicine; PCP Internal Medicine; Visit Provider Internal Medicine | DX: I44.4 Left anterior fascicular block (principal) | CPT/HCPCS: 93010 ==

== ENCOUNTER → 2025-08-28 17:22 | Outpatient (BNV) | payer MEDICARE, MEDICAID, SELFPAY | PROVIDERS: Admitting Provider Nurse Practitioner Acute Care; Emergency Provider Emergency Medicine; Visit Provider Nurse Practitioner Acute Care | DX: I10 Essential (primary) hypertension (principal) | CPT/HCPCS: 99223 ==